=== PATIENT | male | born 1935 | race African-American/Black ===

== ENCOUNTER 2016-10-16 19:04 | Inpatient (IN) | payer OTHER, BC ==
[2016-10-16 19:47] LABS: BASOPHIL 0.7 % (0-2.0); EOSINOPHIL 0.6 % (0-4.5); MCH 27.5 pg (25.7-33.7); MCHC 32.5 g/dl (32.0-35.9); MEAN CELL VOLUME 84.6 fl (80-96); NEUTROPHILS 70.2 % (42.8-82.8); PLATELET COUNT 322 K/MM3 (134-434); RDW 14.1 % (11.9-15.9); WHITE BLOOD COUNT 9.8 K/mm3 (4.0-10.0)
--- NOTE | 2016-10-16 19:52 | PDOC ---
History of Present Illness - General Chief Complaint: Pain Stated Complaint: ABD PAIN Time Seen by Provider: 10/16/16 19:43 History Source: Patient Exam Limitations: No Limitations - History of Present Illness Travel History: No Initial Comments: 10/17/16 02:00 81-year-old male with no history of abdominal surgery presents to the emergency department complaining of periumbilical 6/10 sharp nonradiating intermittent discomfort with nausea no vomiting, fever, chills, chest pain, shortness of breath, flank pains, urinary symptoms. There are no alleviating or exacerbating factors. Last bowel movement 4 days ago. Timing/Duration: reports: intermittent Quality: reports: moderate Abdominal Pain Onset Location: reports: periumbilical Pain Radiation: reports: no radiation Activities at Onset: reports: none Aggravating Factors: improves with: None Alleviating Factors: improves with: None Past History - Past Medical History Allergies/Adverse Reactions: Allergies Allergy/AdvReac Type Severity Reaction Status Date / Time No Known Allergies Allergy Verified 03/02/16 12:36 Home Medications: Ambulatory Orders Atorvastatin Ca [Lipitor] 40 mg PO HS #0 tablet 03/03/13 Amlodipine Besylate [Norvasc -] 5 mg PO DAILY #0 tablet 08/01/13 Clopidogrel Bisulfate [Plavix -] 75 mg PO DAILY #0 tablet 08/01/13 Labetalol HCl [Normodyne -] 200 mg PO BID #0 tablet NS 08/01/13 Furosemide [Lasix -] 20 mg PO DAILY 08/09/15 Aspirin [ASA -] 81 mg PO DAILY 10/16/16 Tiotropium [place] [Spiriva] 1 inh PO BID 10/16/16 Anemia: No Cancer: No Cardiac Disorders: No CVA: Yes (Mild R hemiparesis) COPD: Yes CHF: No Dementia: No Diabetes: No GI Disorders: No Disorders: No HTN: Yes Hypercholesterolemia: Yes Liver Disease: No Suicide Attempt (Hx): No Seizures: No Thyroid Disease: No - Surgical History Abdominal Surgery: No Appendectomy: No Cardiac Surgery: No Cholecystectomy: No Lung Surgery: Yes (chest tube for pneumothorax) Neurologic Surgery: No - Psycho/Social/Smoking Cessation Hx Anxiety: No Suicidal Ideation: No Smoking Status: Yes Smoking History: Former smoker Have you smoked in the past 12 months: No Number of Cigarettes Smoked Daily: 10 If you are a former smoker, when did you quit?: U2MONGTM AGO Information on smoking cessation initiated: No 'Breaking Loose' booklet given: 03/03/16 Hx Alcohol Use: No Drug/Substance Use Hx: No Substance Use Type: None Hx Substance Use Treatment: No Review of Systems - Review of Systems Able to Perform ROS?: Yes Comments:: 10/17/16 01:59 CONSTITUTIONAL: Absent: fever, chills, diaphoresis, generalized weakness, malaise, loss of appetite HEENT: Absent: rhinorrhea, nasal congestion, throat pain, throat swelling, difficulty swallowing, mouth swelling, ear pain, eye pain, visual Changes CARDIOVASCULAR: Absent: chest pain, loss of consciousness, palpitations, irregular heart rate, peripheral edema RESPIRATORY: Absent: cough, shortness of breath, dyspnea with exertion, orthopnea, wheezing, stridor, hemoptysis GASTROINTESTINAL: Periumbilical pain Absent: abdominal distension, nausea, vomiting, diarrhea, constipation, melena, hematochezia GENITOURINARY: Absent: dysuria, frequency, urgency, hesitancy, hematuria, flank pain, genital pain MUSCULOSKELETAL: Absent: myalgia, arthralgia, joint swelling SKIN: Absent: rash, itching, pallor HEMATOLOGIC/IMMUNOLOGIC: Absent: easy bleeding, easy bruising, lymphadenopathy, frequent infections ENDOCRINE: Absent: unexplained weight gain, unexplained weight loss, heat intolerance, cold intolerance NEUROLOGIC: Absent: headache, focal weakness or paresthesias, dizziness, unsteady gait, seizure, mental status changes, bladder or bowel incontinence PSYCHIATRIC: Absent: anxiety, depression, suicidal or homicidal ideation, hallucinations. Is the patient limited [place]an proficient: No *Physical Exam - Vital Signs Last Vital Signs Temp Pulse Resp BP Pulse Ox 97.9 F 84 21 148/74 94 L 10/16/16 19:25 10/16/16 19:25 10/16/16 19:25 10/16/16 19:25 10/16/16 19:25 - Physical Exam Comments: 10/17/16 01:59 GENERAL: Well developed, well nourished. Awake and alert. No acute distress. HEENT: Normocephalic, atraumatic. PERRLA, EOMI. No conjunctival pallor. Sclera are non- icteric. Moist mucous membranes. Oropharynx is clear. NECK: Supple. Full ROM. No JVD. Carotid pulses 2+ and symmetric, without bruits. No thyromegaly. No lymphadenopathy. CARDIOVASCULAR: Regular rate and rhythm. No murmurs, rubs, or gallops. Distal pulses are 2+ and symmetric. PULMONARY: No evidence of respiratory distress. Lungs clear to auscultation bilaterally. No wheezing, rales or rhonchi. ABDOMINAL: +periumbilical tenderness on palp Soft.Non-distended. No rebound or guarding. No organomegaly. Normoactive bowel sounds. MUSCULOSKELETAL Normal range of motion at all joints. No bony deformities or tenderness. No CVA tenderness. EXTREMITIES: No cyanosis. No clubbing. No edema. No calf tenderness. SKIN: Warm and dry. Normal capillary refill. No rashes. No jaundice. NEUROLOGICAL: Alert, awake, appropriate. Cranial nerves 2-12 intact. No deficits to light touch and temperature in face, upper extremities and lower extremities. No motor deficits in the in face, upper extremities and lower extremities. Normoreflexic in the upper and lower extremities. Normal speech. Toes are down- going bilaterally. Gait is normal without ataxia. PSYCHIATRIC: Cooperative. Good eye contact. Appropriate mood and affect. ED Treatment Course - LABORATORY CBC & Chemistry Diagram: 10/16/16 19:35 10/16/16 19:35 - ADDITIONAL ORDERS Additional order review: 10/16/16 19:35 RBC 5.27 MCV 84.6 MCHC 32.5 RDW 14.1 MPV 7.0 L Neutrophils % 70.2 D Lymphocytes % 13.5 D Monocytes % 15.0 H Eosinophils % 0.6 D Basophils % 0.7 *DC/Admit/Observation/Transfer Diagnosis at time of Disposition: SBO (small bowel obstruction) - Discharge Dispostion Condition at time of disposition: Guarded Admit: Yes - Referrals
[2016-10-16 20:14] LABS: ALBUMIN 3.6 g/dl (3.4-5.0); AMYLASE 113 U/L (25-115); ANION GAP 10 (8-16); CALCIUM 9.9 mg/dL (8.5-10.1); CO2 25 mmol/L (21-32); COCKROFT - GAULT 54.51; CREATININE 0.9 mg/dL (0.7-1.3); GLUCOSE,RANDOM 123 mg/dL (74-106); SGOT/AST 21 U/L (15-37); SGPT/ALT 23 U/L (12-78)
[2016-10-16 20:15] LABS: ALK PHOS 105 U/L (45-117); BILIRUBIN,TOTAL 2.3 mg/dL (0.2-1.0); TOT PROT 6.7 g/dl (6.4-8.2)
[2016-10-16 20:48] LABS: URINE APPEARANCE SLCLOUDY; URINE BILIRUBIN NEGATIVE (NEGATIVE); URINE BLOOD NEGATIVE (NEGATIVE); URINE COLOR YELLOW; URINE GLUCOSE (UA) NEGATIVE (NEGATIVE); URINE KETONE NEGATIVE (NEGATIVE); URINE LEUK ESTERASE NEGATIVE (NEGATIVE); URINE NITRITE NEGATIVE (NEGATIVE); URINE UROBILINOGEN 2.0 E.U/dl E.U./dl (0.2-1.0)
[2016-10-16] MEDS ORDERED: MAG HYDROX/AL HYDROX/SIMETH 355 ML ORAL.SUSP PO ONE (20:54)
[2016-10-16] MEDS ORDERED: FAMOTIDINE 20 MG/50 ML IVPB 50 ML IVPB ONE ×2 (20:54→21:24)
[2016-10-16 21:03] LABS: URINE PROTEIN 1+ (NEGATIVE)
[2016-10-16 21:12] LABS: URINE MUCUS FEW; URINE RBC 49 /hpf (0-3); URINE WBC 3 /hpf (3-5)
[2016-10-16] MEDS ORDERED: MAG HYDROX/AL HYDROX/SIMETH 30 ML UNIT-DOSE CUP ONE (21:24)
[2016-10-17] MEDS ORDERED: morphine CARPU-JECT 4 MG/1 ML DISP.SYRIN IVPUSH PRN (00:20)
[2016-10-17] MEDS: SODIUM CHLORIDE 1,000 ML IV SCH ×2 (00:36→10:52)
[2016-10-17 04:44] VITALS: BMI 19.3
--- NOTE | 2016-10-17 06:26 | HP ---
Admitting History and Physical - Primary Care Physician PCP: Gini Delcid S - Admission Chief Complaint: abdominal pain, no BM x 4 days History of Present Illness: 81M admitted through [facility] for eval. of vomiting and belching up of food. He states that this has been occurring for 4 days and that his last bowel movement was 4 days ago. He had some abdominal pain but no rectal bleeding. He was seen by Dr. Hollins 02/22 when he had an admission for syncope. CT scan revealed dilated loops of small bowel raising ? of SBO. He had 4 loose BM's x 4 from last night. he denies prior abdominal surgeries NGT placed in ER; feels much better now History Source: Patient, Medical Record Limitations to Obtaining History: No Limitations - Past Medical History VEGETABLE SCULLION: Yes: CVA, TIA Cardiovascular: Yes: CHF, HTN, Hyperlipdemia Pulmonary: Yes: COPD Gastrointestinal: Yes: Constipation Musculoskeletal: Yes: Hemiparesis - Smoking History Smoking history: Former smoker Have you smoked in the past 12 months: No Aproximately how many cigarettes per day: 10 If you are a former smoker, when did you quit?: 2016 - Alcohol/Substance Use Hx Alcohol Use: Yes History of Substance Use: reports: None - Social History Usual Living Arrangement: Yes: With Spouse ADL: Independent Occupation: retired from [employer] History of Recent Travel: No Home Medications - Allergies Allergies/Adverse Reactions: Allergies Allergy/AdvReac Type Severity Reaction Status Date / Time No Known Allergies Allergy Verified 03/02/16 12:36 - Home Medications Home Medications: Ambulatory Orders Atorvastatin Ca [Lipitor] 40 mg PO HS #0 tablet 03/03/13 Amlodipine Besylate [Norvasc -] 5 mg PO DAILY #0 tablet 08/01/13 Clopidogrel Bisulfate [Plavix -] 75 mg PO DAILY #0 tablet 08/01/13 Labetalol HCl [Normodyne -] 200 mg PO BID #0 tablet NS 08/01/13 Furosemide [Lasix -] 20 mg PO DAILY 08/09/15 Aspirin [ASA -] 81 mg PO DAILY 10/16/16 Tiotropium [place] [Spiriva] 1 inh PO BID 10/16/16 Family Disease History - Family Disease History Family Disease History: Heart Disease: Brother (congestive heart failure), Other : Father (lived to 99), Mother (lived to her 70's) Review of Systems - Review of Systems Constitutional: denies: Chills, Fever, Lethargy Eyes: denies: Blurred Vision, Double Vision HENT: denies: Difficult Swallowing, Ear Pain Neck: denies: Decreased ROM, Pain on Movement, Stiffness, Tenderness Cardiovascular: denies: Chest Pain, Shortness of Breath Respiratory: denies: Cough, SOB Gastrointestinal: reports: Abdominal Pain, Bloating, Constipation, Vomiting Genitourinary: denies: Dysuria, Flank Pain Musculoskeletal: denies: Back Pain, Joint Pain Neurological: reports: Unsteady Gait (h/o CVA). denies: Change in LOC, Change in Speech, Dizziness Hematology/Lymphatic: denies: Easily Bruised, Excessive Bleeding Psychiatric: denies: Altered Sleep Pattern, Anxiety, Depression, Suicidal Physical Examination Vital Signs: Vital Signs Temperature 98.0 F 10/17/16 04:00 Pulse Rate 100 H 10/17/16 04:00 Respiratory Rate 18 10/17/16 04:00 Blood Pressure 160/98 10/17/16 04:00 O2 Sat by Pulse Oximetry (%) 93 L 10/17/16 04:00 Constitutional: Yes: No Distress, Calm Eyes: Yes: Conjunctiva Clear HENT: Yes: Atraumatic Neck: Yes: Supple Cardiovascular: Yes: Regular Rate and Rhythm Respiratory: Yes: CTA Bilaterally Gastrointestinal: Yes: Soft, Other (NGT in). No: Distention, Tenderness Renal/: No: CVA Tenderness - Left, CVA Tenderness - Right, Hematuria Musculoskeletal: No: Joint Stiffness, Joint Swelling Extremities: No: Cold, Cool, Cyanosis Edema: No Peripheral Pulses WNL: Yes Integumentary: No: Rash, Venous Stasis Changes Neurological: Yes: WNL, Alert, Oriented ...Motor Strength: WNL Psychiatric: Yes: WNL, Alert, Oriented. No: Agitated, Suicidal Ideation Imaging - Results Chest X-ray: Report Reviewed Cat Scan: Report Reviewed Other: Report Reviewed Assessment/Plan 81M admitted through [facility] for eval. of vomiting and belching up of food. He states that this has been occurring for 4 days and that his last bowel movement was 4 days ago. He had some abdominal pain but no rectal bleeding. He was seen by Dr. Hollins 02/22 when he had an admission for syncope. CT scan revealed dilated loops of small bowel raising ? of SBO. He had 4 loose BM's x 4 from last night. he denies prior abdominal surgeries NGT placed in ER check KUB today, if resolving ileus would DC NGT and start clear fluids diet GI and surgery called cardio eval for possible preop (does not seem he will need surgery at this point )DVT falls decubs PFXd/w pt and staff
[2016-10-17] MEDS ORDERED: INSULIN (NOVOLOG) ASPART 100 UNITS/ML 10ML VIAL ONE (06:35)
[2016-10-17] MEDS ORDERED: PT OWN MED DRAWER 7, Y5N ONE ×2 (06:36→14:06)
[2016-10-17] MEDS: LABETALOL HCL 200 MG TABLET (FP) PO SCH ×2 (06:36→21:20)
[2016-10-17 07:00] LABS: MCHC 33.1 g/dl (32.0-35.9); MEAN CELL VOLUME 84.4 fl (80-96); MEAN PLT VOLUME 7.1 fl (7.5-11.1); PLATELET COUNT 308 K/MM3 (134-434); RDW 14.1 % (11.9-15.9); WHITE BLOOD COUNT 8.4 K/mm3 (4.0-10.0)
--- NOTE | 2016-10-17 07:12 | CON.CARD ---
Consult Consult Specialty:: Cardiology for Dr. Butt Referred by:: Dr. Delcid Reason for Consultation:: SBO, assistance with medications - History of Present Illness Chief Complaint: abdominal pain and constipation History of Present Illness: 81 year old man with a history of HTN, HLD, COPD, CVA, AAA admitted with abdominal discomfort and constipation concerning for SBO. Pt seen and examined today in nad. He states that he had multiple small BM's yesterday and overnight. denies any current abd pain. denies chest pain, sob, palpitations. no pnd, orthopnea, or LE edema. NG tube in place. 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 Cardio/Vascular: Yes: Aneurysm, CHF, HTN, Hyperlipdemia Pulmonary: Yes: COPD Gastrointestinal: Yes: Constipation Musculoskeletal: Yes: Hemiparesis - Alcohol/Substance Use Hx Alcohol Use: Yes History of Substance Use: reports: None - Smoking History Smoking history: Former smoker Have you smoked in the past 12 months: No Aproximately how many cigarettes per day: 10 If you are a former smoker, when did you quit?: 2016 - Social History Usual Living Arrangement: With Spouse ADL: Independent Occupation: retired from [employer] History of Recent Travel: No Home Medications - Allergies Allergies/Adverse Reactions: Allergies Allergy/AdvReac Type Severity Reaction Status Date / Time No Known Allergies Allergy Verified 03/02/16 12:36 - Home Medications Home Medications: Ambulatory Orders Atorvastatin Ca [Lipitor] 40 mg PO HS #0 tablet 03/03/13 Amlodipine Besylate [Norvasc -] 5 mg PO DAILY #0 tablet 08/01/13 Clopidogrel Bisulfate [Plavix -] 75 mg PO DAILY #0 tablet 08/01/13 Labetalol HCl [Normodyne -] 200 mg PO BID #0 tablet NS 08/01/13 Furosemide [Lasix -] 20 mg PO DAILY 08/09/15 Aspirin [ASA -] 81 mg PO DAILY 10/16/16 Tiotropium [place] [Spiriva] 1 inh PO BID 10/16/16 Family Disease History - Family Disease History Family Disease History: Heart Disease: Brother (congestive heart failure), Other : Father (lived to 99), Mother (lived to her 70's) Review of Systems - Review of Systems Constitutional: reports: Weakness. denies: No Symptoms, Chills, Diaphoresis, Fever, Lethargy, Loss of Appetite, Malaise, Night Sweats, Unintentional Wgt. Loss, Other Eyes: denies: No Symptoms, Blind Spots, Blurred Vision, Double Vision, Eye Pain , Floaters, Photophobia, Recent Change in Vision, Other HENT: denies: No Symptoms, Difficult Swallowing, Ear Discharge, Ear Pain, Epistaxis, Gingival Bleeding, Hearing Loss, Mouth Swelling, Nasal Congestion, Ocular Prosthesis, Throat Pain, Toothache, Ringing in Ears, Other Neck: denies: No Symptoms, Decreased ROM, Lumps, Pain on Movement, Stiffness, Swollen Glands, Tenderness, Other Cardiovascular: denies: No Symptoms, Chest Pain, Edema, Palpitations, Shortness of Breath, Other Respiratory: reports: Cough. denies: No Symptoms, Exercise Intolerance, Hemoptysis, Orthopnea, PND, Snoring, SOB, SOB on Exertion, Wheezing, Other Gastrointestinal: reports: Abdominal Pain, Constipation. denies: No Symptoms, Bloating, Diarrhea, Dysphagia, Indigestion, Melena, Nausea, Rectal Bleeding, Vomiting, Vomiting Blood, Other Genitourinary: denies: No Symptoms, Burning, Discharge, Dysuria, Flank Pain, Frequency, Hematuria, Incontinence, Lesions, Menses, Pain, Testicular Mass, Testicular Pain, Testicular Swelling, Urgency, Vaginal Bleeding, Other Breasts: denies: No Symptoms Reported, See HPI, Breast Implants, Discharge from Nipple, Lumps, Pain, Skin Changes, Other Musculoskeletal: denies: No Symptoms, Back Pain, Crepitus, Decreased ROM, Extremity Pain, Joint Pain, Joint Swelling, Muscle Pain, Muscle Cramps, Muscle Weakness, Other Integumentary: denies: No Symptoms, Blister, Bruising, Change in Color, Eczema, Erythema, Incision, Lesions, Lump, Pallor, Pruritis, Rash, Wound, Other Neurological: denies: No Symptoms, Change in LOC, Change in Speech, Confusion, Dizziness, Headache, Incoordination, Numbness, Parasthesia, Pre-Existing Deficit , Seizure, Syncope, Tremors, Unsteady Gait, Weakness, Other Endocrine: denies: No Symptoms, Excessive Sweating, Flushing, Increased Hunger, Increased Thirst, Intolerance to Cold, Intolerance to Heat, Unexplained Weight Gain, Unexplained Weight Loss, Other Hematology/Lymphatic: denies: No Symptoms, Easily Bruised, Excessive Bleeding, Swollen Glands, Other Psychiatric: denies: No Symptoms, Altered Sleep Pattern, Anxiety, Depression, Hallucinations, Panic, Paranoia, Suicidal, Other - Risk Factors Known Risk Factors: Yes: Age, Hypercholesterolemia, Hypertension Vital Signs: Vital Signs Temperature 97.9 F 10/17/16 07:06 Pulse Rate 80 10/17/16 07:06 Respiratory Rate 20 10/17/16 07:06 Blood Pressure 153/88 10/17/16 07:06 O2 Sat by Pulse Oximetry (%) 93 L 10/17/16 04:00 Constitutional: Yes: No Distress, Calm, Thin Eyes: Yes: Conjunctiva Clear, EOM Intact, PERRL HENT: Yes: Normocephalic Neck: Yes: Supple, Trachea Midline Respiratory: Yes: Cough, Rhonchi. No: Rales, SOB, Wheezes Gastrointestinal: Yes: Normal Bowel Sounds, Soft. No: Distention, Tenderness Cardiovascular: Yes: Regular Rate and Rhythm. No: Tachycardia, Pulse Irregular , Gallop, Rub, Varicosities JVD: No Carotid Bruit: No PMI: Non-Displaced Heart Sounds: Yes: S1, S2. No: Split S2, S3, S4, Gallop, Rub Murmur: No: Systolic Murmur, Diastolic Murmur Musculoskeletal: Yes: WNL Extremities: Yes: WNL Edema: No Peripheral Pulses WNL: Yes Peripheral Pulses: 2+ Left Doralis Pedis, 2+ Right Dorsalis Pedis Neurological: Yes: Alert, Oriented Psychiatric: Yes: Alert, Oriented - Other Data Labs, Other Data: CBC, BMP 10/17/16 06:20 ekg-not available in chart Echo: Report Reviewed Ejection Fraction %: LVEF > or = 40 % Imaging - Results Chest X-ray: Report Reviewed, Image Reviewed EKG: Report Reviewed, Image Reviewed Other: Report Reviewed, Image Reviewed Assessment/Plan 81 year old man with a history of HTN, HLD, COPD, CVA, AAA admitted with abdominal discomfort and constipation concerning for SBO. Pt seen and examined today in nad. He states that he had multiple small BM's yesterday and overnight. SBO-NG tube in place, pt reports multiple small BMs overnight -as per PMD, GI, and Surgery -currently NPO except medications -as per pt and records, pt has no history of CAD or prior MD or prior coronary stents, on Plavix for h/o CVA (also cerebral aneursym), presumed on ASA for primary prevention, from a cardiac standpoint can hold ASA and Plavix in case of need for surgery for SBO -f/up CT a/p results in regards to status of AAA (done to evaluate SBO) HTN-mildly above goal -cont home meds Norvasc and Labetalol and adjust as needed during hospitalization -if does not tolerate po meds will need to change to IV equivalents HLD -cont Lipitor Cough/mild rhonchi on exam -COPD
[2016-10-17 07:28] LABS: ALBUMIN 3.6 g/dl (3.4-5.0); ALK PHOS 113 U/L (45-117); ANION GAP 10 (8-16); BILIRUBIN,TOTAL 2.7 mg/dL (0.2-1.0); CALCIUM 9.6 mg/dL (8.5-10.1); CO2 27 mmol/L (21-32); COCKROFT - GAULT 63.55; CREATININE 0.7 mg/dL (0.7-1.3); GLUCOSE,RANDOM 116 mg/dL (74-106); SGOT/AST 24 U/L (15-37); SGPT/ALT 25 U/L (12-78); TOT PROT 6.8 g/dl (6.4-8.2)
--- NOTE | 2016-10-17 09:21 | CON.GI ---
Consult Consult Specialty:: GI Referred by:: Dr. Delcid Reason for Consultation:: Small Bowel Obstruction - History of Present Illness Chief Complaint: I was burping and bringing up food History of Present Illness: 81M admitted through [facility] for eval. of vomiting and belching up of food. He states that this has been occurring for 4 days and that his last bowel movement was 4 days ago. He denied abdominal pain or rectal bleeding. He was seen by Dr. Hollins 02/22 when he had an admission for syncope. CT scan revealed dilated loops of small bowel raising ? of SBO. He had 4 loose BM's x 4 from last night. 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 Cardio/Vascular: Yes: Aneurysm, CHF, HTN, Hyperlipdemia Pulmonary: Yes: COPD Gastrointestinal: Yes: Constipation Musculoskeletal: Yes: Hemiparesis - Alcohol/Substance Use Hx Alcohol Use: Yes History of Substance Use: reports: None - Smoking History Smoking history: Former smoker Have you smoked in the past 12 months: No Aproximately how many cigarettes per day: 10 If you are a former smoker, when did you quit?: 2016 - Social History Usual Living Arrangement: With Spouse ADL: Independent Occupation: retired from [employer] Place of : [facility] History of Recent Travel: No Home Medications - Allergies Allergies/Adverse Reactions: Allergies Allergy/AdvReac Type Severity Reaction Status Date / Time No Known Allergies Allergy Verified 03/02/16 12:36 - Home Medications Home Medications: Ambulatory Orders Atorvastatin Ca [Lipitor] 40 mg PO HS #0 tablet 03/03/13 Amlodipine Besylate [Norvasc -] 5 mg PO DAILY #0 tablet 08/01/13 Clopidogrel Bisulfate [Plavix -] 75 mg PO DAILY #0 tablet 08/01/13 Labetalol HCl [Normodyne -] 200 mg PO BID #0 tablet NS 08/01/13 Furosemide [Lasix -] 20 mg PO DAILY 08/09/15 Aspirin [ASA -] 81 mg PO DAILY 10/16/16 Tiotropium [place] [Spiriva] 1 inh PO BID 10/16/16 Family Disease History - Family Disease History Family Disease History: Heart Disease: Brother (congestive heart failure), Other : Father (lived to 99), Mother (lived to her 70's) Other Family History: No family history of colorectal cancer or other GI malignancy Review of Systems - Review of Systems Cardiovascular: denies: Chest Pain, Shortness of Breath Respiratory: reports: Cough Gastrointestinal: denies: Abdominal Pain Physical Exam-GI Vital Signs: Vital Signs Temperature 97.9 F 10/17/16 07:06 Pulse Rate 80 10/17/16 07:06 Respiratory Rate 20 10/17/16 07:06 Blood Pressure 153/88 10/17/16 07:06 O2 Sat by Pulse Oximetry (%) 93 L 10/17/16 04:00 Constitutional: Yes: Calm Eyes: No: Sclera Icterus Cardiovascular: Yes: Regular Rate and Rhythm. No: Murmur Respiratory: Yes: CTA Bilaterally Gastrointestinal Inspection: No: Distention, Hernia, Scars ...Auscultate: Yes: Hyperactive Bowel Sounds ...Percussion: Yes: Tympanitic (Mild) Edema: No Labs: CBC, BMP 10/17/16 06:20 10/17/16 06:20 Imaging - Results Cat Scan: Image Reviewed (No official read) Problem List - Problems (1) SBO (small bowel obstruction) Assessment/Plan: Vs. ? ileus Had BM's from last night Was just seen by surgery: recommendations per surgery. He is going for AXR today Will need colonoscopy when acute issues are reolved Code(s): K56.69 - OTHER INTESTINAL OBSTRUCTION
[2016-10-17] MEDS ORDERED: HEPARIN NA (PORCINE) 5,000 UNITS/ML 1ML VIAL SQ SCH (10:00)
[2016-10-17] MEDS: ACLIDINIUM BROMIDE 400 MCG/INH AERO.POWD IH SCH ×2 (11:01→21:20)
[2016-10-17] MEDS: amLODIPine BESYLATE 5 MG TABLET (FP) PO SCH (11:03)
--- NOTE | 2016-10-17 13:14 | PN ---
Progress Note (short form) - Note Progress Note: surgery pt seen and examined this am. full consult dictated. 81m, virgin abd, no recent colonoscopy, presents with [address] shows dilated small bowel with non dilated colon. xray this am shows contrast throughout colon and pt had a bm. on exam abd is soft, mild distension, pt will not relax abd wall musculature for good exam. Laboratory Tests 10/17/16 06:20 WBC 8.4 Plan- kub confirms no complete obstruction. supect ileus vs psbo. will remove ngt as minimal output. if patient remains well would try liquids tomorrow.
[2016-10-17] MEDS: ATORVASTATIN CA 40 MG TABLET (FP) PO SCH (21:20)
[2016-10-18] MEDS: SODIUM CHLORIDE 1,000 ML IV SCH ×2 (01:21→14:46)
--- NOTE | 2016-10-18 08:00 | PN ---
Progress Note (short form) - Note Progress Note: surgery pt doing well. clears started by medial team and tolerating. no need for surgical intervention. will need colonoscopy at some point.
--- NOTE | 2016-10-18 08:31 | PN ---
Progress Note, Physician History of Present Illness: seen and examined today in nad. feeling better. NG tube out, having BM's, passing gas. no overnight events. no new complaints. - Current Medication List Current Medications: Active Medications Aclidinium [place] (Tudorza -) 1 puff IH BID [facility] Last Admin: 10/17/16 21:20 Dose: 1 puff Amlodipine Besylate (Norvasc -) 5 mg PO DAILY [facility] Last Admin: 10/17/16 11:03 Dose: 5 mg Aspirin (Asa -) 81 mg PO DAILY [facility] Atorvastatin Calcium (Lipitor -) 40 mg PO HS [facility] Last Admin: 10/17/16 21:20 Dose: 40 mg Clopidogrel Bisulfate (Plavix -) 75 mg PO DAILY [facility] Sodium Chloride (Normal Saline -) 1,000 mls @ 75 mls/hr IV ASDIR [facility] Last Admin: 10/18/16 01:21 Dose: 75 mls/hr Labetalol HCl (Normodyne -) 200 mg PO BID [facility] Last Admin: 10/17/16 21:20 Dose: 200 mg Morphine Sulfate (Morphine Injection -) 1 mg IVPUSH Q4H PRN PRN Reason: PAIN - Objective Vital Signs: Vital Signs Temperature 98.6 F 10/18/16 07:29 Pulse Rate 99 H 10/18/16 07:29 Respiratory Rate 22 10/18/16 07:29 Blood Pressure 137/80 10/18/16 07:29 O2 Sat by Pulse Oximetry (%) 95 10/17/16 09:00 Constitutional: Yes: No Distress, Calm, Thin Eyes: Yes: Conjunctiva Clear, EOM Intact, PERRL HENT: Yes: Atraumatic, Normocephalic Neck: Yes: Supple, Trachea Midline Cardiovascular: Yes: Regular Rate and Rhythm, S1, S2. No: Bradycardia, Tachycardia, Pulse Irregular, Bruit, JVD, Gallop, Murmur, Rub, S3, S4, Varicosities Respiratory: Yes: Regular, Rhonchi. No: CTA Bilaterally, Rales, Wheezes Gastrointestinal: Yes: Normal Bowel Sounds, Soft. No: Distention, Tenderness Musculoskeletal: Yes: WNL Extremities: Yes: WNL Edema: No Peripheral Pulses WNL: Yes Peripheral Pulses: Left Doralis Pedis: 2+, Right Dorsalis Pedis: 2+ Neurological: Yes: Alert, Oriented Psychiatric: Yes: Alert, Oriented Labs: CBC, BMP 10/17/16 06:20 10/17/16 06:20 - ....Imaging Chest X-ray: Report Reviewed, Image Reviewed EKG: Report Reviewed, Image Reviewed Other: Report Reviewed, Image Reviewed Assessment/Plan 81 year old man with a history of HTN, HLD, COPD, CVA, AAA admitted with abdominal discomfort and constipation concerning for SBO. Pt seen and examined today in nad. He states that he had multiple small BM's yesterday and overnight. SBO-NG tube removed, pt reports multiple BMs -as per PMD, GI, and Surgery -tolerating po medications -as per pt and records, pt has no history of CAD or prior WI or prior coronary stents, on Plavix for h/o CVA (also cerebral aneursym), presumed on ASA for primary prevention -ASA and Plavix were resumed as pt does not seem to require surgery AAA- -not described on report of CT a/p, test was not done for this purpose -can discuss with radiology if any change noted HTN-adequately controlled overall -cont home meds Norvasc and Labetalol HLD -cont Lipitor Cough/mild rhonchi on exam -COPD
[2016-10-18] MEDS: LABETALOL HCL 200 MG TABLET (FP) PO SCH ×2 (09:51→21:56)
[2016-10-18] MEDS: amLODIPine BESYLATE 5 MG TABLET (FP) PO SCH (09:51)
[2016-10-18] MEDS: ACLIDINIUM BROMIDE 400 MCG/INH AERO.POWD IH SCH ×2 (09:52→21:57)
[2016-10-18] MEDS ORDERED: CLOPIDOGREL BISULFATE 75 MG TABLET (FP) PO SCH (10:00)
[2016-10-18] MEDS ORDERED: ASPIRIN 81 MG CHEWABLE TABLETS PO SCH (10:00)
--- NOTE | 2016-10-18 10:57 | PN ---
Progress Note, Physician Chief Complaint: oob to chair feels better no abdominal pain, no vomiting on clear fluids; d/w GI dr Holliday advance diet; also d/ pt and his and GI dr: pt had stomach thickening on abdomen CT 07/24 needs EGD, and is due for colonoscopy; to be done per GI - Current Medication List Current Medications: Active Medications Aclidinium [place] (Tudorza -) 1 puff IH BID [facility] Last Admin: 10/18/16 09:52 Dose: 1 puff Amlodipine Besylate (Norvasc -) 5 mg PO DAILY [facility] Last Admin: 10/18/16 09:51 Dose: 5 mg Aspirin (Asa -) 81 mg PO DAILY [facility] Last Admin: 10/18/16 09:51 Dose: 81 mg Atorvastatin Calcium (Lipitor -) 40 mg PO HS [facility] Last Admin: 10/17/16 21:20 Dose: 40 mg Clopidogrel Bisulfate (Plavix -) 75 mg PO DAILY [facility] Last Admin: 10/18/16 09:51 Dose: 75 mg Sodium Chloride (Normal Saline -) 1,000 mls @ 75 mls/hr IV ASDIR [facility] Last Admin: 10/18/16 01:21 Dose: 75 mls/hr Labetalol HCl (Normodyne -) 200 mg PO BID [facility] Last Admin: 10/18/16 09:51 Dose: 200 mg Morphine Sulfate (Morphine Injection -) 1 mg IVPUSH Q4H PRN PRN Reason: PAIN - Objective Vital Signs: Vital Signs Temperature 98.6 F 10/18/16 07:29 Pulse Rate 99 H 10/18/16 07:29 Respiratory Rate 22 10/18/16 07:29 Blood Pressure 137/80 10/18/16 07:29 O2 Sat by Pulse Oximetry (%) 95 10/17/16 09:00 Constitutional: Yes: No Distress, Calm Eyes: Yes: Conjunctiva Clear HENT: Yes: Atraumatic Neck: Yes: Supple Cardiovascular: Yes: Regular Rate and Rhythm Respiratory: Yes: CTA Bilaterally Gastrointestinal: Yes: Soft. No: Distention, Tenderness Genitourinary: No: CVA Tenderness - Left, CVA Tenderness - Right Musculoskeletal: No: Joint Stiffness, Joint Swelling Extremities: No: Cold, Cool Edema: No Peripheral Pulses WNL: Yes Integumentary: No: Rash, Venous Stasis Changes Neurological: Yes: WNL, Alert, Oriented ...Motor Strength: WNL Psychiatric: Yes: WNL, Alert, Oriented. No: Agitated, Suicidal Ideation Labs: CBC, BMP 10/17/16 06:20 10/17/16 06:20 - ....Imaging Other: Report Reviewed Assessment/Plan 81M admitted through [facility] for eval. of vomiting and belching up of food. He states that this has been occurring for 4 days and that his last bowel movement was 4 days ago. He had some abdominal pain but no rectal bleeding. He was seen by Dr. Hollins 02/22 when he had an admission for syncope. CT scan ileus/ SBO. improved; NGT DCd; advance diet as tolerated GI and surgery f/u EGD & colonoscopy per GI d/w pt and , d/w GI dr d/w staff
--- NOTE | 2016-10-18 11:57 | PN ---
GI Progress Note Subjective: No acute events Having BM's No abdominal pain States being hungry AXR not read as of yet but there appear to be contrast throughout a non- distended colon. the small bowel appears non-distended as well - Objective Vital Signs: Vital Signs Temperature 98.2 F 10/18/16 10:00 Pulse Rate 65 10/18/16 10:00 Respiratory Rate 22 10/18/16 10:00 Blood Pressure 154/90 10/18/16 10:00 O2 Sat by Pulse Oximetry (%) 95 10/17/16 09:00 Constitutional: Calm Eyes: No: Sclera Icterus Cardiovascular: Yes: Regular Rate and Rhythm. No: Murmur Respiratory: Yes: CTA Bilaterally Gastrointestinal Inspection: No: Distention ...Auscultate: Yes: Normoactive Bowel Sounds ...Palpate: No: Hepatomegaly, Splenomegaly, Tenderness Edema: No Neurological: Yes: Alert, Oriented Labs: CBC, BMP 10/17/16 06:20 10/17/16 06:20 Problem List - Problems (1) SBO (small bowel obstruction) Assessment/Plan: Vs. ileus / resolved AGE Clinically much improved Agree with advancement to a full liquid diet then low residue if tolerating There was non specific gastric wall thickening noted on previous CT scan. I explained this to Mr. Haddad and explained that to reevaluate this findings and for colorectal cancer screening, he should follow-up in office for follow-up and to arrange these studies as he was advised to do on previous admission. he states that he remembered being told to do so and would do so. If he is not tolerating PO then inpatient GI work-up would be considered MiraLAX 17g daily for chronic constipation Code(s): K56.69 - OTHER INTESTINAL OBSTRUCTION
[2016-10-18] MEDS ORDERED: ONDANSETRON 4 MG/2 ML VIAL IVPB PRN (18:34)
[2016-10-18] MEDS: morphine CARPU-JECT 2 MG/1 ML DISP.SYRIN IVPUSH PRN (18:41)
--- NOTE | 2016-10-18 19:07 | PN ---
Progress Note (short form) - Note Progress Note: dr. bonilla contacted me. nurse called her to report mr. silver vomited again. i ordered fua, cbc, bmp. dr. bonilla made him npo. asa and plavix held by dr. bonilla. Problem List - Problems (1) SBO (small bowel obstruction) Code(s): K56.69 - OTHER INTESTINAL OBSTRUCTION
[2016-10-18] MEDS ORDERED: PIPERACILLIN/TAZOB 3.375 GM 50 ML IVPB SCH (21:45)
[2016-10-18 21:50] LABS: BASOPHIL 0.2 % (0-2.0); EOSINOPHIL 0.4 % (0-4.5); MCHC 32.2 g/dl (32.0-35.9); MEAN CELL VOLUME 83.9 fl (80-96); MEAN PLT VOLUME 6.8 fl (7.5-11.1); NEUTROPHILS 80.8 % (42.8-82.8); PLATELET COUNT 270 K/MM3 (134-434); RDW 13.8 % (11.9-15.9); WHITE BLOOD COUNT 7.2 K/mm3 (4.0-10.0)
[2016-10-18] MEDS: PIPERACILLIN/TAZOB 3.375 GM 50 ML IVPB SCH (21:56)
[2016-10-18] MEDS: ATORVASTATIN CA 40 MG TABLET (FP) PO SCH (21:56)
[2016-10-18 22:09] LABS: CALCIUM 8.7 mg/dL (8.5-10.1); COCKROFT - GAULT 74.15; CREATININE 0.6 mg/dL (0.7-1.3)
--- NOTE | 2016-10-18 22:26 | PN ---
GI Progress Note Subjective: Received message by [facility] radiologist 9:16 laurie re: critical finding on repeat CT scan that was performed this afternoon. She explained there was pneummatosis in a segment of small bowel in an area of transition as well as air in left lobe of liver in portal system. He had complaints of abdominal pain later this afternoon as well as vomiting prompting repeat imaging and lab work. I reevaluated Mr. Catie sullivan he states that he feels "so-so". - Objective Vital Signs: Vital Signs Temperature 97.7 F 10/18/16 18:00 Pulse Rate 64 10/18/16 18:00 Respiratory Rate 20 10/18/16 18:00 Blood Pressure 157/73 10/18/16 18:00 O2 Sat by Pulse Oximetry (%) 95 10/17/16 09:00 Constitutional: Calm Eyes: No: Sclera Icterus Cardiovascular: Yes: Regular Rate and Rhythm Respiratory: Yes: CTA Bilaterally ...Auscultate: Yes: Normoactive Bowel Sounds ...Palpate: Yes: Tenderness (with voluntary guarding upon palpation. This is a change from previous exam) ...Percussion: Yes: Tympanitic (mild tympany) Edema: No Neurological: Yes: Alert (awake, somewhat forgetful) Labs: CBC, BMP 10/18/16 21:15 10/18/16 21:15 Problem List - Problems (1) SBO (small bowel obstruction) Assessment/Plan: Patient dramatically improved this morning however now with transition point noted by radiologist with small bowel pneumatosis in that area (? mid ileum) and air in portal system. Also with voluntary guarding noted on exam this evening. Advised the following: Replace NGT NPO IV hydration Started IV Zosyn with ID consult in AM I had discussed the radiology findings with Dr. Carranza and Dr. Gini Delcid after I got off the phone with the radiologist this evening Transfer to ICU CBC/CMP/Lactic acid level ordered for AM Discussed things with his this evening as well Code(s): K56.69 - OTHER INTESTINAL OBSTRUCTION
--- NOTE | 2016-10-18 23:03 | PN ---
Progress Note (short form) - Note Progress Note: surgery pt was doing well today and diet was started and advanced by the medical service. Plavix was resumed as well. Pt developed abd pain and vomiting and repeat ct was arranged. this shows pneumatosis in a segment of distal small bowel and portal venous gas. Pt is AAOx1 but denies abd pain. wbc wnl, no fever, no tachycardia, normal bp. Pt is very high risk for surgery with cva, copd, cad, and now on Plavix given today. I suspect he had an embolic event to his small bowel that may recover function. Obviously he could become septic and deteriorate. I spoke to his who wishes to avoid surgery and does not want to operate on the blood thinner. She is willing to risk deterioration and development of sepsis to avoid the risk of surgery. Recommend npo, iv abx, icu monitoring. If patient remains stable would repeat ct in 2-3 days. If patient appears to worsen may be forced to proceed with a high risk surgery and a poor outcome. Plavix should be held for 8 days for elective surgery and 3 days for emergent surgery. will follow.
[2016-10-19] MEDS: SODIUM CHLORIDE 1,000 ML IV SCH ×2 (00:15→18:37)
--- NOTE | 2016-10-19 00:41 | CONSULT ---
Consult Consult Specialty:: Pulm/CCM [employer] Reason for Consultation:: Mid epigastric pain - History of Present Illness Chief Complaint: Abd pain History of Present Illness: 81yom with PMHx of HTN, CHF, CVA, TIA, COPD and HLD who presented to ED on 10/16 with c/o of abd pain,vomiting and belching up of food x 4days and constipation. In ED CT scan revealed dilated loops of small bowel raising ? of SBO. NGT placed in ED. Since the initial CT pt had BMs and had minimal NGT drainage. He was started on po fluids but vomited and c/o persistent abd pain. Repeat CT A/P s/f pneumatosis in a segment of the small bowel as well as air in the left lobe of the liver. GI surgery was considered but deferred as pt was hemodynamically stable and is a high surgical risk d/t his comorbidities and on plavix. He was transferred to ICU for monitoring with plan for OR if hemodynamically decompensates. - History Source History Provided By: Patient, Medical Record - Past Medical History [employer]: Yes: CVA, TIA Cardio/Vascular: Yes: CHF, HTN, Hyperlipdemia Pulmonary: Yes: COPD Gastrointestinal: Yes: Constipation Musculoskeletal: Yes: Hemiparesis - Alcohol/Substance Use Hx Alcohol Use: Yes History of Substance Use: reports: None - Smoking History Smoking history: Former smoker Have you smoked in the past 12 months: No Aproximately how many cigarettes per day: 10 If you are a former smoker, when did you quit?: 2015 - Social History Usual Living Arrangement: With Spouse ADL: Independent Occupation: retired from [employer] History of Recent Travel: No Home Medications - Allergies Allergies/Adverse Reactions: Allergies Allergy/AdvReac Type Severity Reaction Status Date / Time No Known Allergies Allergy Verified 03/02/16 12:36 - Home Medications Home Medications: Ambulatory Orders Atorvastatin Ca [Lipitor] 40 mg PO HS #0 tablet 03/03/13 Amlodipine Besylate [Norvasc -] 5 mg PO DAILY #0 tablet 08/01/13 Clopidogrel Bisulfate [Plavix -] 75 mg PO DAILY #0 tablet 08/01/13 Labetalol HCl [Normodyne -] 200 mg PO BID #0 tablet NS 08/01/13 Furosemide [Lasix -] 20 mg PO DAILY 08/09/15 Aspirin [ASA -] 81 mg PO DAILY 10/16/16 Tiotropium [place] [Spiriva] 1 inh PO BID 10/16/16 Family Disease History - Family Disease History Family Disease History: Heart Disease: Brother (congestive heart failure), Other : Father (lived to 99), Mother (lived to her 70's) Other Family History: No family history of colorectal cancer or other GI malignancy Review of Systems - Review of Systems Constitutional: reports: No Symptoms Gastrointestinal: reports: Abdominal Pain Genitourinary: reports: Incontinence Neurological: reports: No Symptoms Pain Intensity: 8 Physical Exam Vital Signs: Vital Signs Temperature 97.8 F 10/18/16 23:15 Pulse Rate 60 10/18/16 23:15 Respiratory Rate 19 10/18/16 23:15 Blood Pressure 148/75 10/18/16 23:15 O2 Sat by Pulse Oximetry (%) 92 L 10/18/16 23:15 Constitutional: Yes: No Distress, Thin Eyes: Yes: PERRL Neck: Yes: Supple Cardiovascular: Yes: Regular Rate and Rhythm Respiratory: Yes: CTA Bilaterally Gastrointestinal: Yes: Soft, Tenderness, Epigastrium, Other (+ bowel sounds) Renal/: Yes: WNL Extremities: Yes: Other (WWP) Edema: No Peripheral Pulses WNL: Yes Neurological: Yes: Alert, Oriented Psychiatric: Yes: Alert, Oriented Labs: CBC, BMP 10/18/16 21:15 10/18/16 21:15 CBC,CMP WBC 7.2 K/mm3 (4.0-10.0) 10/18/16 21:15 RBC 5.14 M/mm3 (4.00-5.60) 10/18/16 21:15 Hgb 13.9 GM/dL (11.7-16.9) 10/18/16 21:15 Hct 43.1 % (35.4-49) 10/18/16 21:15 MCV 83.9 fl (80-96) 10/18/16 21:15 MCHC 32.2 g/dl (32.0-35.9) 10/18/16 21:15 RDW 13.8 % (11.9-15.9) 10/18/16 21:15 Plt Count 270 K/MM3 (134-434) 10/18/16 21:15 MPV 6.8 fl (7.5-11.1) L 10/18/16 21:15 Neutrophils % 80.8 % (42.8-82.8) 10/18/16 21:15 Lymphocytes % 9.1 % (8-40) D 10/18/16 21:15 Monocytes % 9.5 % (3.8-10.2) 10/18/16 21:15 Eosinophils % 0.4 % (0-4.5) 10/18/16 21:15 Basophils % 0.2 % (0-2.0) 10/18/16 21:15 Sodium 137 mmol/L (136-145) 10/18/16 21:15 Potassium 3.7 mmol/L (3.5-5.1) 10/18/16 21:15 Chloride 102 mmol/L (98-107) 10/18/16 21:15 Carbon Dioxide 24 mmol/L (21-32) 10/18/16 21:15 Anion Gap 11 (8-16) 10/18/16 21:15 BUN 8 mg/dL (7-18) 10/18/16 21:15 Creatinine 0.6 mg/dL (0.7-1.3) L 10/18/16 21:15 Creat Clearance w eGFR > 60 (>60) 10/17/16 06:20 Random Glucose 115 mg/dL (74-106) H 10/18/16 21:15 Calcium 8.7 mg/dL (8.5-10.1) 10/18/16 21:15 Total Bilirubin 2.7 mg/dL (0.2-1.0) H 10/17/16 06:20 AST 24 U/L (15-37) 10/17/16 06:20 ALT 25 U/L (12-78) 10/17/16 06:20 Alkaline Phosphatase 113 U/L (45-117) 10/17/16 06:20 Total Protein 6.8 g/dl (6.4-8.2) 10/17/16 06:20 Albumin 3.6 g/dl (3.4-5.0) 10/17/16 06:20 Total Amylase 113 U/L (25-115) 10/16/16 19:35 Lipase 88 U/L (73-393) 10/16/16 19:35 Imaging - Results Cat Scan: Report Reviewed Problem List - Problems (1) SBO (small bowel obstruction) Code(s): K56.69 - OTHER INTESTINAL OBSTRUCTION Assessment/Plan 81yom with PMHx of HTN, CHF, CVA, TIA, COPD and HLD who presented to ED on 10/16 with c/o of abd pain,vomiting and belching up of food x 4days and constipation. Found to have pneumatosis intestinalis in segment of of small bowel with c/f for enterocolitis. OR deferred d/t pt on plavix and medical comorbidities. Plan: -GI following -NGT to L[facility] for bowel rest -NPO -IVF for hydration -HD monitoring -Hold plavix -venodynes
[2016-10-19] MEDS: PIPERACILLIN/TAZOB 3.375 GM 50 ML IVPB SCH ×3 (01:15→18:37)
[2016-10-19] MEDS: morphine CARPU-JECT 2 MG/1 ML DISP.SYRIN IVPUSH PRN (01:18)
[2016-10-19 06:14] LABS: BASOPHIL 0.4 % (0-2.0); EOSINOPHIL 1.6 % (0-4.5); MCH 27.7 pg (25.7-33.7); MCHC 33.2 g/dl (32.0-35.9); MEAN CELL VOLUME 83.7 fl (80-96); MEAN PLT VOLUME 7.2 fl (7.5-11.1); PLATELET COUNT 295 K/MM3 (134-434); RDW 14.1 % (11.9-15.9); WHITE BLOOD COUNT 5.3 K/mm3 (4.0-10.0)
[2016-10-19 07:12] LABS: ALBUMIN 3.1 g/dl (3.4-5.0); ANION GAP 10 (8-16); CALCIUM 8.4 mg/dL (8.5-10.1); CO2 27 mmol/L (21-32); COCKROFT - GAULT 68.39; CREATININE 0.7 mg/dL (0.7-1.3); GLUCOSE,RANDOM 115 mg/dL (74-106); SGOT/AST 25 U/L (15-37); SGPT/ALT 19 U/L (12-78)
[2016-10-19 07:14] LABS: ALK PHOS 88 U/L (45-117); BILIRUBIN,TOTAL 2.5 mg/dL (0.2-1.0); TOT PROT 5.8 g/dl (6.4-8.2)
--- NOTE | 2016-10-19 09:20 | PN ---
Progress Note (short form) - Note Progress Note: ID consult dictated chart reviewed patient is poor historian imp/reccd SBO pneumotosis coli of small bowel- ivf/npo/continue zosyn close surgical f/u Problem List - Problems (1) Pneumatosis intestinalis Code(s): K63.89 - OTHER SPECIFIED DISEASES OF INTESTINE (2) SBO (small bowel obstruction) Code(s): K56.69 - OTHER INTESTINAL OBSTRUCTION
[2016-10-19] MEDS: ACLIDINIUM BROMIDE 400 MCG/INH AERO.POWD IH SCH ×2 (09:22→21:41)
[2016-10-19] MEDS: amLODIPine BESYLATE 5 MG TABLET (FP) PO SCH (09:26)
[2016-10-19] MEDS: LABETALOL HCL 200 MG TABLET (FP) PO SCH (09:26)
[2016-10-19] MEDS ORDERED: POLYETHYLENE GLYCOL 3350 119 GM BTL PO SCH (10:00)
[2016-10-19] MEDS ORDERED: METOPROLOL TARTRATE 5 MG/5 ML VIAL IVPUSH PRN (11:41)
--- NOTE | 2016-10-19 11:45 | PN ---
Progress Note, Physician History of Present Illness: Pt. in ICU, was seen and examined. NGT present (on low sucction) Pt. w/o N, V, abd. pain. Pt w/o CP, SOB, Palp. - Current Medication List Current Medications: Active Medications Aclidinium [place] (Tudorza -) 1 puff IH BID [facility] Last Admin: 10/19/16 09:22 Dose: 1 puff Amlodipine Besylate (Norvasc -) 5 mg PO DAILY [facility] Last Admin: 10/19/16 09:26 Dose: Not Given Atorvastatin [place] (Lipitor -) 40 mg PO HS [facility] Last Admin: 10/18/16 21:56 Dose: 40 mg Sodium Chloride (Normal Saline -) 1,000 mls @ 75 mls/hr IV ASDIR [facility] Last Admin: 10/19/16 00:15 Dose: 75 mls/hr Piperacillin Sod/Tazobactam Sod (Zosyn 3.375gm Ivpb (Pre-Docked)) 50 mls @ 100 mls/hr IVPB Q8H-IV [place] PRN Reason: Protocol Last Admin: 10/19/16 09:22 Dose: 100 mls/hr Labetalol HCl (Normodyne -) 200 mg PO BID [facility] Last Admin: 10/19/16 09:26 Dose: Not Given Metoprolol Tartrate (Lopressor Injection -) 2.5 mg IVPUSH Q4H PRN PRN Reason: HYPERTENSION Morphine Sulfate (Morphine Injection -) 1 mg IVPUSH Q6H PRN PRN Reason: PAIN Last Admin: 10/19/16 01:18 Dose: 1 mg Ondansetron HCl (Zofran Injection) 8 mg IVPB Q6H PRN PRN Reason: NAUSEA AND/OR VOMITING Last Admin: 10/18/16 18:42 Dose: 8 mg - Objective Vital Signs: Vital Signs Temperature 97.8 F 10/19/16 06:00 Pulse Rate 79 10/19/16 10:06 Respiratory Rate 19 10/19/16 08:48 Blood Pressure 160/80 10/19/16 08:00 O2 Sat by Pulse Oximetry (%) 95 10/19/16 10:06 Constitutional: Yes: No Distress, Calm Cardiovascular: Yes: Regular Rate and Rhythm, S1, S2 Respiratory: Yes: Regular, CTA Bilaterally. No: Rales Gastrointestinal: Yes: Normal Bowel Sounds, Soft. No: Palpable Mass, Tenderness Edema: No Neurological: Yes: Alert, Oriented, Other (symmetric motor and sensory in UE/ LE / face) Psychiatric: Yes: Alert, Oriented Labs: CBC, BMP 10/19/16 05:10 10/19/16 05:10 Problem List - Problems (1) Pneumatosis intestinalis Code(s): K63.89 - OTHER SPECIFIED DISEASES OF INTESTINE (2) SBO (small bowel obstruction) Code(s): K56.69 - OTHER INTESTINAL OBSTRUCTION (3) CHF (congestive heart failure) Code(s): I50.9 - HEART FAILURE, UNSPECIFIED (4) CVA (cerebral infarction) Code(s): I63.9 - CEREBRAL INFARCTION, UNSPECIFIED (5) Chronic obstructive pulmonary disease Code(s): J44.9 - CHRONIC OBSTRUCTIVE PULMONARY DISEASE, UNSPECIFIED (6) Hyperlipidemia Code(s): E78.5 - HYPERLIPIDEMIA, UNSPECIFIED Assessment/Plan GI and surgical f/u NPO for now Case was d/w Adi Vela at bedside; is pt needs emrgency surgery: to proceed with surgery; METOPROLOL IVP. AM labs Prognosis: reserved Case was d/w pt.'s ICU nurse Time spent for managing pt.'s care: over 40 minutes
--- NOTE | 2016-10-19 12:45 | PN ---
Progress Note (short form) - Note Progress Note: surgery pt seen and examined. feels well. no pain. wants food. ngt 200 light bile afebrile abd- soft, nt, minimal distension, no peritoneal findings (pt uses abd muscles to breath hampering the exam but no tenderness when muscles relaxed) u/o > 50 per hour Selected Entries 10/18/16 10/18/16 10/19/16 18:00 23:15 02:00 Temperature 97.7 F 97.8 F 97.5 F L Pulse Rate 64 Respiratory 20 Rate Blood Pressure 157/73 O2 Sat by Pulse Oximetry (%) 10/19/16 10/19/16 10/19/16 06:00 08:00 10:06 Temperature 97.8 F Pulse Rate 79 Respiratory Rate Blood Pressure 160/80 O2 Sat by Pulse 95 Oximetry (%) Laboratory Tests 10/18/16 10/19/16 10/19/16 21:15 05:10 05:10 WBC 7.2 5.3 Neutrophils % 65.0 Lactic Acid 1.3 Plan- 81m presented with initial psbo and virgin abd, now with pneumatosis and portal venous gas. on plavix yesterday. Clearly an ischemic event occured but patient does not appear toxic and the bowel is likely recovering. Initial ct showed a calcified sma but patent. Pt and offered exploratory surgery and they decline. The are concerned with the risk of surgery and feel he is improving without surgery. They understand that he may become septic and . keep npo. cont ngt. cont iv abx. hold plavix. would get u/s or mesenteric vessels for vascular opinion on possible underlying disease. Spoke with Dr. Mcrae. will follow. prognosis guarded.
--- NOTE | 2016-10-19 13:05 | CONS ---
DATE OF CONSULTATION: DATE OF DICTATION: 10/19/2016 REQUESTED BY: Jameel Delcid MD This is an 81-year-old man. He was originally presented to the emergency room on October 16 with complaints of mid-epigastric pain and constipation. He was felt at that time to have partial small bowel obstruction. He was treated medically. He improved. He had bowel movements. His abdominal pain resolved. His diet was advanced to liquids on the morning of the . Later that day, he developed abdominal pain and vomiting. He had a repeat CAT scan performed, which showed a small bowel obstruction with the transition zone in the left pelvis. He had evidence of interval development of intramural air, and a dilated small bowel loop was noted as well as portal venous air. He was re-evaluated by both Surgery and GI last night. He was transferred to the ICU for close management, and the surgeon spoke as well with the family who has elected to manage him medically at this time. He was started on piperacillin/tazobactam as well. This morning, he is resting comfortably. He has no abdominal pain. He has an NG tube in place. He is not aware that he vomited yesterday, and he is wondering when he can eat. PAST MEDICAL HISTORY: Notable for history of CVA in the past with a mild right hemiparesis, COPD. He has history of hypercholesterolemia, hypertension and he has had a chest tube for a pneumothorax in the past. He has never had any surgery. He has no known drug allergies. His medications as an outpatient include Plavix, Normodyne, Lasix, aspirin, Spiriva, Norvasc and Lipitor. Currently, he is on Zofran, piperacillin/tazobactam, Tudorza, labetalol, Norvasc, saline, Lipitor and morphine as needed. FAMILY HISTORY: Per the chart, notable for heart disease in his brother. SOCIAL HISTORY: He lives at home with his family. There is no history of substance use. He stopped smoking in 2016. He lives with his spouse. He is retired from the [employer], and he is independent in his ADLs. REVIEW OF SYSTEMS: He currently denies all symptoms. He says he feels fine and he is hungry and he wants to eat. PHYSICAL EXAMINATION: Vital signs: He has had no fever. Temperature is currently 97.8. Blood pressure is 168/80, pulse of 67. Respiratory rate is 20. Saturating 96% on 2 L. HEENT: He is normocephalic. His eyes are anicteric. Neck: Supple. Lungs: Clear to auscultation. Heart: Regular rate and rhythm. Abdomen: Currently is soft. He has an NG tube in place, and it is currently nontender. There is no distention, and he has no pain on palpation. Last dose of pain medication was morphine, which he got at 1 a.m., and it is currently 9:00 a.m. LABORATORIES: Notable for a white count of 5.3, hemoglobin 13.6, platelets are 295. BUN is 8, creatinine 0.7. Urinalysis is notable for 3 white cells. In summary, this is an 81-year-old man admitted to the ICU for pneumatosis intestinalis in a segment of the small bowel, small bowel obstructin. Would continue his IV fluids and IV antibiotics as ordered. Piperacillin/tazobactam should be adequate for GI coverage. He will be followed closely by Surgery with the hopes that he will respond medically but with the possibility that he may need emergent surgery if he deteriorates. Further recommendations to follow based on his clinical course. NORMAN CALLAWAY M.D. [id number] MTDD
--- NOTE | 2016-10-19 15:06 | PN ---
Progress Note, Physician History of Present Illness: 81 year old man with a history of HTN, HLD, COPD, CVA, AAA admitted with abdominal discomfort and constipation concerning for SBO. Pt seen and examined today in nad. He states that he had multiple small BM's yesterday and overnight. denies any current abd pain. denies chest pain, sob, palpitations. no pnd, orthopnea, or LE edema. NG tube in place. PMH LE angio 02/21/2015 Dr. 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 Dr Alcazar PCI LCx 09/20/2014 Dr Alcazar Medical History Reviewed Condition Date Treating Physician Comments Claudication, intermittent HTN Hyperlipidemia TIA/CVA - Current Medication List Current Medications: Active Medications Aclidinium [place] (Tudorza -) 1 puff IH BID [facility] Last Admin: 10/19/16 09:22 Dose: 1 puff Amlodipine Besylate (Norvasc -) 5 mg PO DAILY [facility] Last Admin: 10/19/16 09:26 Dose: Not Given Atorvastatin Calcium (Lipitor -) 40 mg PO HS [facility] Last Admin: 10/18/16 21:56 Dose: 40 mg Sodium Chloride (Normal Saline -) 1,000 mls @ 75 mls/hr IV ASDIR [facility] Last Admin: 10/19/16 00:15 Dose: 75 mls/hr Piperacillin Sod/Tazobactam Sod (Zosyn 3.375gm Ivpb (Pre-Docked)) 50 mls @ 100 mls/hr IVPB Q8H-IV [facility] PRN Reason: Protocol Last Admin: 10/19/16 09:22 Dose: 100 mls/hr Labetalol HCl (Normodyne -) 200 mg PO BID [facility] Last Admin: 10/19/16 09:26 Dose: Not Given Metoprolol Tartrate (Lopressor Injection -) 2.5 mg IVPUSH Q4H PRN PRN Reason: HYPERTENSION Morphine Sulfate (Morphine Injection -) 1 mg IVPUSH Q6H PRN PRN Reason: PAIN Last Admin: 10/19/16 01:18 Dose: 1 mg Ondansetron HCl (Zofran Injection) 8 mg IVPB Q6H PRN PRN Reason: NAUSEA AND/OR VOMITING Last Admin: 10/18/16 18:42 Dose: 8 mg - Objective Vital Signs: Vital Signs Temperature 98.4 F 10/19/16 12:00 Pulse Rate 76 10/19/16 14:00 Respiratory Rate 20 10/19/16 14:00 Blood Pressure 154/86 10/19/16 14:00 O2 Sat by Pulse Oximetry (%) 95 10/19/16 10:06 Eyes: Yes: WNL, Conjunctiva Clear, EOM Intact HENT: Yes: WNL, Atraumatic, Normocephalic Neck: Yes: WNL, Supple, Trachea Midline Cardiovascular: Yes: WNL, Regular Rate and Rhythm Respiratory: Yes: WNL, Regular, CTA Bilaterally Genitourinary: Yes: WNL Musculoskeletal: Yes: WNL Extremities: Yes: WNL Edema: No Integumentary: Yes: WNL Neurological: Yes: WNL, Alert, Oriented ...Motor Strength: WNL Psychiatric: Yes: WNL Labs: CBC, BMP 10/19/16 05:10 10/19/16 05:10 Laboratory Tests 10/16/16 10/16/16 10/16/16 19:35 19:35 19:35 WBC 9.8 D RBC 5.27 Hgb 14.5 Hct 44.6 MCV 84.6 MCHC 32.5 RDW 14.1 Plt Count 322 D MPV 7.0 L Neutrophils % 70.2 D Lymphocytes % 13.5 D Monocytes % 15.0 H Eosinophils % 0.6 D Basophils % 0.7 Sodium 136 Potassium 4.1 Chloride 101 Carbon Dioxide 25 Anion Gap 10 BUN 14 Creatinine 0.9 Creat Clearance w eGFR > 60 Random Glucose 123 H D Lactic Acid Calcium 9.9 Total Bilirubin 2.3 H AST 21 D ALT 23 D Alkaline Phosphatase 105 Total Protein 6.7 Albumin 3.6 Total Amylase 113 Lipase 88 Urine Color Yellow Urine Appearance Slcloudy Urine pH 5.0 D Ur Specific [place] 1.020 Urine Protein 1+ H Urine Glucose (UA) Negative Urine Ketones Negative Urine Blood Negative Urine Nitrite Negative Urine Bilirubin Negative Urine Urobilinogen 2.0 e.u/dl Ur Leukocyte Esterase Negative Urine RBC 49 Urine WBC 3 Ur Epithelial Cells Rare Urine Mucus Few Blood Type Antibody Screen 10/17/16 10/17/16 10/18/16 06:20 06:20 21:15 WBC 8.4 7.2 RBC 5.48 5.14 Hgb 15.3 13.9 Hct 46.3 43.1 MCV 84.4 83.9 MCHC 33.1 32.2 RDW 14.1 13.8 Plt Count 308 270 MPV 7.1 L 6.8 L Neutrophils % 80.8 Lymphocytes % 9.1 D Monocytes % 9.5 Eosinophils % 0.4 Basophils % 0.2 Sodium 138 Potassium 4.1 Chloride 101 Carbon Dioxide 27 Anion Gap 10 BUN 10 D Creatinine 0.7 D Creat Clearance w eGFR > 60 Random Glucose 116 H Lactic Acid Calcium 9.6 Total Bilirubin 2.7 H AST 24 ALT 25 Alkaline Phosphatase 113 Total Protein 6.8 Albumin 3.6 Total Amylase Lipase Urine Color Urine Appearance Urine pH Ur Specific [place] Urine Protein Urine Glucose (UA) Urine Ketones Urine Blood Urine Nitrite Urine Bilirubin Urine Urobilinogen Ur Leukocyte Esterase Urine RBC Urine WBC Ur Epithelial Cells Urine Mucus Blood Type Antibody Screen 10/18/16 10/19/16 10/19/16 21:15 05:10 05:10 WBC 5.3 RBC 4.89 Hgb 13.6 Hct 41.0 MCV 83.7 MCHC 33.2 RDW 14.1 Plt Count 295 MPV 7.2 L Neutrophils % 65.0 Lymphocytes % 16.9 D Monocytes % 16.1 H Eosinophils % 1.6 D Basophils % 0.4 Sodium 137 139 Potassium 3.7 3.6 Chloride 102 102 Carbon Dioxide 24 27 Anion Gap 11 10 BUN 8 8 Creatinine 0.6 L 0.7 Creat Clearance w eGFR > 60 Random Glucose 115 H 115 H Lactic Acid Calcium 8.7 8.4 L Total Bilirubin 2.5 H AST 25 ALT 19 D Alkaline Phosphatase 88 D Total Protein 5.8 L Albumin 3.1 L Total Amylase Lipase Urine Color Urine Appearance Urine pH Ur Specific [place] Urine Protein Urine Glucose (UA) Urine Ketones Urine Blood Urine Nitrite Urine Bilirubin Urine Urobilinogen Ur Leukocyte Esterase Urine RBC Urine WBC Ur Epithelial Cells Urine Mucus Blood Type Antibody Screen 10/19/16 10/19/16 05:10 08:25 WBC RBC Hgb Hct MCV MCHC RDW Plt Count MPV Neutrophils % Lymphocytes % Monocytes % Eosinophils % Basophils % Sodium Potassium Chloride Carbon Dioxide Anion Gap BUN Creatinine Creat Clearance w eGFR Random Glucose Lactic Acid 1.3 Calcium Total Bilirubin AST ALT Alkaline Phosphatase Total Protein Albumin Total Amylase Lipase Urine Color Urine Appearance Urine pH Ur Specific [place] Urine Protein Urine Glucose (UA) Urine Ketones Urine Blood Urine Nitrite Urine Bilirubin Urine Urobilinogen Ur Leukocyte Esterase Urine RBC Urine WBC Ur Epithelial Cells Urine Mucus Blood Type O POSITIVE Antibody Screen Negative Assessment/Plan Ischemic bowel perforated gut PAD ASHD s/p PCI LCx 09/20/2014 HTN Hyperlipidemia TIA/CVA Refusing surgery understand risks of Plan as per surgery and ICU team hold plavix IV lopressor condition is guarded will f/u CC time 35 min
--- NOTE | 2016-10-19 15:08 | PN ---
GI Progress Note Subjective: No acute events from when I saw Mr. Haddad last night. now in ICU w/ NGT in place, 800cc aspirate in suction canister Denies abdominal pain Evaluated by Dr. Carranza. [place] that there may have been an embolic event with segment of small bowel ischemia - Objective Vital Signs: Vital Signs Temperature 98.4 F 10/19/16 12:00 Pulse Rate 76 10/19/16 14:00 Respiratory Rate 20 10/19/16 14:00 Blood Pressure 154/86 10/19/16 14:00 O2 Sat by Pulse Oximetry (%) 95 10/19/16 10:06 Constitutional: Calm Eyes: No: Sclera Icterus Cardiovascular: Yes: Regular Rate and Rhythm Respiratory: Yes: CTA Bilaterally Gastrointestinal Inspection: No: Distention ...Auscultate: Yes: Hyperactive Bowel Sounds ...Palpate: No: Tenderness ...Percussion: No: Tympanitic Edema: No Neurological: Yes: Alert, Oriented Labs: CBC, BMP 10/19/16 05:10 10/19/16 05:10 Problem List - Problems (1) SBO (small bowel obstruction) Assessment/Plan: ? internal hernia. Question of ischemic event however patient noted to be in sinus rhythm. he remains clinically stable Continued supportive measures NGT IV Abx Conservative measures being attempted by surgery Code(s): K56.69 - OTHER INTESTINAL OBSTRUCTION
--- NOTE | 2016-10-19 18:15 | PN ---
Physical Exam: SUBJECTIVE: Patient seen and examined. He doesn't have any complaints today. He denies abdominal pain, nausea, vomitind, dizziness, chest pain. OBJECTIVE: Vital Signs Period Temp Pulse Resp BP Sys/Hernandez Pulse Ox Last 24 Hr 97.5 F-98.4 F 60-84 11-77 140-161/71-86 92-96 GENERAL: The patient is awake, alert, and fully oriented, in no acute distress. HEAD: Normal with no signs of trauma. EYES: extraocular movements intact, sclera anicteric, conjunctiva clear, NG tube draining. ENT: oropharynx clear without exudates, moist mucous membranes. NECK: Trachea midline, full range of motion, supple. LUNGS: clear to auscultation bilaterally, no wheezes, no crackles, no accessory muscle use. HEART: Regular rate and rhythm, S1, S2 without murmur, rub or gallop. ABDOMEN: Soft, nontender, nondistended, normoactive bowel sounds, no guarding, no rebound. EXTREMITIES: 2+ pulses, warm, well-perfused, no edema. NEUROLOGICAL: No facial asymmetry. Normal speech, gait not observed. PSYCH: Normal mood, normal affect. SKIN: Warm, dry, normal turgor, no rashes or lesions noted Laboratory Results - last 24 hr 10/18/16 10/18/16 10/19/16 21:15 21:15 05:10 WBC 7.2 5.3 RBC 5.14 4.89 Hgb 13.9 13.6 Hct 43.1 41.0 MCV 83.9 83.7 MCHC 32.2 33.2 RDW 13.8 14.1 Plt Count 270 295 MPV 6.8 L 7.2 L Neutrophils % 80.8 65.0 Lymphocytes % 9.1 D 16.9 D Monocytes % 9.5 16.1 H Eosinophils % 0.4 1.6 D Basophils % 0.2 0.4 Sodium 137 Potassium 3.7 Chloride 102 Carbon Dioxide 24 Anion Gap 11 BUN 8 Creatinine 0.6 L Creat Clearance w eGFR Random Glucose 115 H Lactic Acid Calcium 8.7 Total Bilirubin AST ALT Alkaline Phosphatase Total Protein Albumin Blood Type Antibody Screen 10/19/16 10/19/16 10/19/16 05:10 05:10 08:25 WBC RBC Hgb Hct MCV MCHC RDW Plt Count MPV Neutrophils % Lymphocytes % Monocytes % Eosinophils % Basophils % Sodium 139 Potassium 3.6 Chloride 102 Carbon Dioxide 27 Anion Gap 10 BUN 8 Creatinine 0.7 Creat Clearance w eGFR > 60 Random Glucose 115 H Lactic Acid 1.3 Calcium 8.4 L Total Bilirubin 2.5 H AST 25 ALT 19 D Alkaline Phosphatase 88 D Total Protein 5.8 L Albumin 3.1 L Blood Type O POSITIVE Antibody Screen Negative Active Medications Generic Name Dose Route Start Last Admin Trade Name Freq PRN Reason Stop Dose Admin Aclidinium [place] 1 puff 10/17/16 10:00 10/19/16 09:22 Tudorza - IH 1 puff BID MODESTA Administration Amlodipine Besylate 5 mg 10/17/16 10:00 10/19/16 09:26 Norvasc - PO Not Given DAILY MODESTA Atorvastatin Calcium 40 mg 10/17/16 22:00 10/18/16 21:56 Lipitor - PO 40 mg HS MODESTA Administration Sodium Chloride 1,000 mls @ 75 mls/hr 10/17/16 00:30 10/19/16 00:15 Normal Saline - IV 75 mls/hr ASDIR MODESTA Administration Piperacillin Sod/Tazobactam Sod 50 mls @ 100 mls/hr 10/18/16 21:45 10/19/16 09: 22 Zosyn 3.375gm Ivpb (Pre-Docked) IVPB 100 mls/hr Q8H-IV [facility]DE[facility] Administration Protocol Labetalol HCl 200 mg 10/17/16 06:30 10/19/16 09:26 Normodyne - PO Not Given BID MODESTA Metoprolol Tartrate 2.5 mg 10/19/16 11:41 Lopressor Injection - IVPUSH Q4H PRN HYPERTENSION Morphine Sulfate 1 mg 10/18/16 18:34 10/19/16 01:18 Morphine Injection - IVPUSH 1 mg Q6H PRN Administration PAIN Ondansetron HCl 8 mg 10/18/16 18:34 10/18/16 18:42 Zofran Injection IVPB 8 mg Q6H PRN Administration NAUSEA AND/OR VOMITING ASSESSMENT/PLAN: 81yom with PMHx of HTN, CHF, CVA, TIA, COPD and HLD who presented to ED on 10/16 with c/o of abd pain,vomiting and belching up of food x 4days and constipation. 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 OR deferred d/t pt on plavix and medical comorbidities. pneumatosis interstinalis: -the family agrees to surgery only in emergency -medical management, monitoring vs., -NPO, -continue NG tube -f/u surgery recommendations, the family believes that the pt shouldn't undergo surgery due to his comorbidities, age and recent use of plavix. The understand the risk and benefits of avoiding surgery - IVF 75 ml/hr will change to ringer lactate -continue Zosyn 3.375gm Ivpb Q8h Hypertension/CAD: -hold Lopressor and Norvasc -f/u cardiology recommendations -cardiac monitoring -hold Plavix HDL: -cont Lipitor DVT PPX: -scds F/E/N Rl/no changes/NPO Problem List - Problems (1) Pneumatosis intestinalis Code(s): K63.89 - OTHER SPECIFIED DISEASES OF INTESTINE (2) SBO (small bowel obstruction) Code(s): K56.69 - OTHER INTESTINAL OBSTRUCTION (3) Abdominal aortic aneurysm (AAA) Code(s): I71.4 - ABDOMINAL AORTIC ANEURYSM, WITHOUT RUPTURE (4) CVA (cerebral infarction) Code(s): I63.9 - CEREBRAL INFARCTION, UNSPECIFIED (5) Chronic obstructive pulmonary disease Code(s): J44.9 - CHRONIC OBSTRUCTIVE PULMONARY DISEASE, UNSPECIFIED (6) HTN (hypertension) Code(s): I10 - ESSENTIAL (PRIMARY) HYPERTENSION Visit type - Emergency Visit Emergency Visit: Yes ED Registration Date: 10/17/16 Care time: The patient presented to the Emergency Department on the above date and was hospitalized for further evaluation of their emergent condition. - New Patient This patient is new to me today: Yes Date on this admission: 10/19/16 - Critical Care Critical Care patient: Yes Total Critical Care Time (in minutes): 45 Critical Care Statement: The care of this patient involved high complexity decision making to prevent further life threatening deterioration of the patient 's condition and/or to evalute & treat vital organ system(s) failure or risk of failure.
[2016-10-20] MEDS: SODIUM CHLORIDE 1,000 ML IV SCH ×2 (00:45→09:20)
[2016-10-20] MEDS: PIPERACILLIN/TAZOB 3.375 GM 50 ML IVPB SCH ×3 (03:36→18:49)
[2016-10-20 06:29] LABS: MCH 27.9 pg (25.7-33.7); MEAN CELL VOLUME 84.7 fl (80-96); MEAN PLT VOLUME 7.4 fl (7.5-11.1); PLATELET COUNT 301 K/MM3 (134-434); RDW 13.8 % (11.9-15.9); WHITE BLOOD COUNT 9.5 K/mm3 (4.0-10.0)
[2016-10-20 06:51] LABS: ALBUMIN 3.3 g/dl (3.4-5.0); ALK PHOS 97 U/L (45-117); ANION GAP 11 (8-16); BILIRUBIN,TOTAL 2.5 mg/dL (0.2-1.0); CO2 30 mmol/L (21-32); COCKROFT - GAULT 68; CREATININE 0.7 mg/dL (0.7-1.3); GLUCOSE,RANDOM 86 mg/dL (74-106); SGOT/AST 29 U/L (15-37); SGPT/ALT 22 U/L (12-78); TOT PROT 6.4 g/dl (6.4-8.2)
[2016-10-20] MEDS: amLODIPine BESYLATE 5 MG TABLET (FP) PO SCH (09:19)
[2016-10-20] MEDS: LABETALOL HCL 200 MG TABLET (FP) PO SCH (09:19)
[2016-10-20] MEDS: ACLIDINIUM BROMIDE 400 MCG/INH AERO.POWD IH SCH ×2 (09:24→21:22)
--- NOTE | 2016-10-20 09:33 | PN ---
Progress Note, Physician History of Present Illness: Pt. in ICU, was seen and examined. NGT present (on low sucction) Pt. w/o N, V, abd. pain. Pt w/o CP, SOB, Palp. - Current Medication List Current Medications: Active Medications Aclidinium [place] (Tudorza -) 1 puff IH BID [facility] Last Admin: 10/20/16 09:24 Dose: 1 puff Amlodipine Besylate (Norvasc -) 5 mg PO DAILY [facility] Last Admin: 10/20/16 09:19 Dose: Not Given Atorvastatin Calcium (Lipitor -) 40 mg PO HS [facility] Last Admin: 10/18/16 21:56 Dose: 40 mg Sodium Chloride (Normal Saline -) 1,000 mls @ 75 mls/hr IV ASDIR [facility] Last Admin: 10/20/16 09:20 Dose: 75 mls/hr Piperacillin Sod/Tazobactam Sod (Zosyn 3.375gm Ivpb (Pre-Docked)) 50 mls @ 100 mls/hr IVPB Q8H-IV [facility] PRN Reason: Protocol Last Admin: 10/20/16 09:22 Dose: 100 mls/hr Labetalol HCl (Normodyne -) 200 mg PO BID [facility] Last Admin: 10/20/16 09:19 Dose: Not Given Metoprolol Tartrate (Lopressor Injection -) 2.5 mg IVPUSH Q4H PRN PRN Reason: HYPERTENSION Morphine Sulfate (Morphine Injection -) 1 mg IVPUSH Q6H PRN PRN Reason: PAIN Last Admin: 10/19/16 01:18 Dose: 1 mg Ondansetron HCl (Zofran Injection) 8 mg IVPB Q6H PRN PRN Reason: NAUSEA AND/OR VOMITING Last Admin: 10/18/16 18:42 Dose: 8 mg - Objective Vital Signs: Vital Signs Temperature 98.2 F 10/20/16 00:00 Pulse Rate 87 10/20/16 08:00 Respiratory Rate 20 10/20/16 08:00 Blood Pressure 152/76 10/20/16 08:00 O2 Sat by Pulse Oximetry (%) 97 10/20/16 07:24 Constitutional: Yes: No Distress, Calm Cardiovascular: Yes: Regular Rate and Rhythm, S1, S2 Respiratory: Yes: Regular, CTA Bilaterally. No: Rales Gastrointestinal: Yes: Normal Bowel Sounds, Soft, Hypoactive Bowel Sounds. No: Palpable Mass, Tenderness Edema: No Neurological: Yes: Alert, Oriented Labs: CBC, BMP 10/20/16 05:15 10/20/16 05:15 Problem List - Problems (1) Pneumatosis intestinalis Code(s): K63.89 - OTHER SPECIFIED DISEASES OF INTESTINE (2) SBO (small bowel obstruction) Code(s): K56.69 - OTHER INTESTINAL OBSTRUCTION (3) CHF (congestive heart failure) Code(s): I50.9 - HEART FAILURE, UNSPECIFIED (4) CVA (cerebral infarction) Code(s): I63.9 - CEREBRAL INFARCTION, UNSPECIFIED (5) Chronic obstructive pulmonary disease Code(s): J44.9 - CHRONIC OBSTRUCTIVE PULMONARY DISEASE, UNSPECIFIED (6) Hyperlipidemia Code(s): E78.5 - HYPERLIPIDEMIA, UNSPECIFIED Assessment/Plan GI and surgical f/u appreciated NPO for now NGT to low sucction Case was d/w Adi Vela at bedside; to continue Metorolol IVP, to titrate to SBP < 140; case was d/w pt.'s nurse. Pt. so far asymptomatic, hemodynamically stable. To f/u with surgical team regarding course of treatment. Vasc Sx consult. AM labs Prognosis: reserved Case was d/w pt.'s ICU nurse Time spent for managing pt.'s care: over 35 minutes
[2016-10-20] MEDS: METOPROLOL TARTRATE 5 MG/5 ML VIAL IVPUSH PRN (09:53)
--- NOTE | 2016-10-20 10:45 | PN ---
Progress Note (short form) - Note Progress Note: no complaints oob in chair he is hungry +NGT no BM Vital Signs Period Temp Pulse Resp BP Sys/Hernandez Pulse Ox Last 24 Hr 98.2 F-98.4 F 67-90 12-22 139-159/73-99 97-97 +NGT cor-rrr llungs clear abd soft,nt ext no edema CBC, BMP 10/20/16 05:15 10/20/16 05:15 imp/reccd SBO pneumotosis coli of small bowel- currently being medically managed with close surgical f/u
--- NOTE | 2016-10-20 10:56 | EKG ---
Test Reason : Blood Pressure : / mmHG Vent. Rate : 071 BPM Atrial Rate : 071 BPM P-R Int : 198 ms QRS Dur : 080 ms QT Int : 400 ms P-R-T Axes : 075 043 061 degrees QTc Int : 434 ms SINUS RHYTHM WITH PREMATURE VENTRICULAR COMPLEXES WITH ABERRANT CONDUCTION WHEN COMPARED WITH ECG OF 02-MAR-2016 12:27, PREMATURE VENTRICULAR COMPLEXES ARE PRESENT Confirmed by JOEY TIM MD ([id number]) on 10/20/2016 10:56:24 AM Referred By: Confirmed By:JOEY TIM MD
--- NOTE | 2016-10-20 11:11 | PN ---
Progress Note, Physician History of Present Illness: 81 year old man with a history of HTN, HLD, COPD, CVA, AAA admitted with abdominal discomfort and constipation concerning for SBO. Pt seen and examined today in nad. He states that he had multiple small BM's yesterday and overnight. denies any current abd pain. denies chest pain, sob, palpitations. no pnd, orthopnea, or LE edema. NG tube in place. PMH LE angio 02/21/2015 Dr. Alcazar Left EIA/[employer] DCB 08/10/2014 Dr Alcazar PCI LCx 09/20/2014 Dr Alcazar Medical History Reviewed Condition Date Treating Physician Comments Claudication, intermittent HTN Hyperlipidemia TIA/CVA - Current Medication List Current Medications: Active Medications Aclidinium [place] (Tudorza -) 1 puff IH BID [facility] Last Admin: 10/20/16 09:24 Dose: 1 puff Amlodipine Besylate (Norvasc -) 5 mg PO DAILY [facility] Last Admin: 10/20/16 09:19 Dose: Not Given Atorvastatin Calcium (Lipitor -) 40 mg PO HS [facility] Last Admin: 10/18/16 21:56 Dose: 40 mg Sodium Chloride (Normal Saline -) 1,000 mls @ 75 mls/hr IV ASDIR [facility] Last Admin: 10/20/16 09:20 Dose: 75 mls/hr Piperacillin Sod/Tazobactam Sod (Zosyn 3.375gm Ivpb (Pre-Docked)) 50 mls @ 100 mls/hr IVPB Q8H-IV [facility] PRN Reason: Protocol Last Admin: 10/20/16 09:22 Dose: 100 mls/hr Labetalol HCl (Normodyne -) 200 mg PO BID [facility] Last Admin: 10/20/16 09:19 Dose: Not Given Metoprolol Tartrate (Lopressor Injection -) 2.5 mg IVPUSH Q4H PRN PRN Reason: HYPERTENSION Last Admin: 10/20/16 09:53 Dose: 2.5 mg Morphine Sulfate (Morphine Injection -) 1 mg IVPUSH Q6H PRN PRN Reason: PAIN Last Admin: 10/19/16 01:18 Dose: 1 mg Ondansetron HCl (Zofran Injection) 8 mg IVPB Q6H PRN PRN Reason: NAUSEA AND/OR VOMITING Last Admin: 10/18/16 18:42 Dose: 8 mg - Objective Vital Signs: Vital Signs Temperature 98.2 F 10/20/16 00:00 Pulse Rate 88 10/20/16 10:00 Respiratory Rate 20 10/20/16 10:00 Blood Pressure 149/88 10/20/16 10:00 O2 Sat by Pulse Oximetry (%) 97 10/20/16 07:24 Eyes: Yes: WNL, Conjunctiva Clear, EOM Intact HENT: Yes: WNL, Atraumatic, Normocephalic Neck: Yes: WNL, Supple, Trachea Midline Cardiovascular: Yes: WNL, Regular Rate and Rhythm Respiratory: Yes: WNL, Regular, CTA Bilaterally Genitourinary: Yes: WNL Musculoskeletal: Yes: WNL Extremities: Yes: WNL Edema: No Integumentary: Yes: WNL Neurological: Yes: WNL, Alert, Oriented ...Motor Strength: WNL Psychiatric: Yes: WNL Labs: CBC, BMP 10/20/16 05:15 10/20/16 05:15 Assessment/Plan Ischemic bowel perforated gut PAD ASHD s/p PCI LCx 09/20/2014 HTN Hyperlipidemia TIA/CVA Refusing surgery understand risks of Plan as per surgery and ICU team hold plavix increase IV lopressor condition is guarded will f/u d/w dr. Delcid and ICU resident CC time 35 min
--- NOTE | 2016-10-20 11:27 | CONS ---
DATE OF CONSULTATION: 10/17/2016 REASON FOR CONSULTATION: Small-bowel obstruction. HISTORY OF PRESENT ILLNESS: This is an emergency room consultation at the request of the emergency room physician. The patient complains of 4 days of constipation as well as some belching and possible vomiting of food. He has not had a bowel movement in 4 days at his arrival in the emergency room and went for a CAT scan of his abdomen and pelvis which was read as a possible bowel obstruction. The CAT scan essentially shows dilated loops of small bowel without a transition point and normal-appearing caliber colon. Patient was admitted overnight. Has apparently had bowel movement. He has had minimal output from his NG tube which is not bilious and states he feels much better. He denies blood in his stool. Denies blood in his vomit. He denies having a recent colonoscopy. PAST MEDICAL HISTORY: Significant for multiple medical problems, including stroke, heart failure, hypertension, hyperlipidemia, aneurysm, and COPD. MEDICATIONS: Have been reviewed. They include Plavix which he is on, Lipitor, Norvasc, Lasix, aspirin, and Spiriva. ALLERGIES: He has no known drug allergies. FAMILY HISTORY: Noncontributory. PAST SURGICAL HISTORY: Significant for a chest tube placement but no abdominal surgeries. REVIEW OF SYSTEMS:General: Denies fatigue or malaise. Cardiac: Denies chest pain or palpitations. Respiratory: Denies shortness of breath or wheeze. Gastrointestinal: As in HPI. Genitourinary: Denies dysuria. Musculoskeletal: Denies joint pain, joint swelling. Psychiatric: Denies anxiety, depression, or hearing voices. PHYSICAL EXAMINATION:General: This is a thin 81-year-old male in no distress. Vital Signs: He is afebrile. Head: Normocephalic with the exception of temporal wasting. Neck: Supple. Chest: Clear. Abdomen: Difficult to examine because the patient will not cooperate by relaxing his abdominal wall. However, he does not appear to be tender. There are no surgical scars. He is mildly distended. Extremities: Have trace edema. LABORATORY DATA: On review of his laboratory, his white blood cell count is normal at 8.4 without a shift. His chemistries are unremarkable with the exception of an elevated total bilirubin of 2.7. The remainder of his liver function tests is normal. IMAGING: As stated in HPI. At this point, I requested an abdominal x-ray to follow the migration of contrast and it clearly shows contrast throughout his colon. There are dilated loops of small bowel as well. ASSESSMENT: This is an 81-year-old male with multiple medical problems with 4 days of abdominal discomfort, some vomiting, constipation, now having bowel movements. His x-ray confirms that he does not have a complete bowel obstruction. This is most likely an ileus versus possible partial bowel obstruction. RECOMMENDATIONS: At this point, I will remove his nasogastric tube as he has had minimal output anyway. If he remains well, tomorrow I would start him on a liquid diet. He will ultimately need a colonoscopy to evaluate his terminal ileum and the elevated bilirubin is likely from not eating, but this should be followed by the GI service. Patient is currently nontoxic and he has no evidence of bowel compromise. DO VALORIE AGUDELO/[id number]
--- NOTE | 2016-10-20 12:18 | PN ---
Teaching Attending Note Name of Resident: Kayleigh Ibrahim ATTENDING PHYSICIAN STATEMENT I saw and evaluated the patient. I reviewed the resident's note and discussed the case with the resident. I agree with the resident's findings and plan as documented. SUBJECTIVE: Pt seen and examined in the ICU. Denies any abdominal pain, nausea or vomiting. No fevers recorded. OBJECTIVE: Last Vital Signs Temp Pulse Resp BP Pulse Ox 98.2 F 72 18 155/88 97 10/20/16 00:00 10/20/16 12:00 10/20/16 12:00 10/20/16 12:00 10/20/16 07:24 Intake & Output 10/17/16 10/18/16 10/19/16 10/20/16 23:59 23:59 23:59 23:59 Intake Total 1885 1386 1625 733.6 Output Total 1186 359 8637 400 Balance -15 1086 -225 333.6 Weight 119 lb 11.2 oz 128 lb 12.8 oz 129 lb 3.054 oz Gen: NAD in chair Heart: RRR Lung: decreased breath sounds at the bases Abd: mild guarding but nontender, no rebound Ext: no edema CBC, BMP 10/20/16 05:15 10/20/16 05:15 Active Medications Aclidinium [place] (Tudorza -) 1 puff IH BID [facility] Last Admin: 10/20/16 09:24 Dose: 1 puff Amlodipine Besylate (Norvasc -) 5 mg PO DAILY [facility] Last Admin: 10/20/16 09:19 Dose: Not Given Atorvastatin Calcium (Lipitor -) 40 mg PO HS [facility] Last Admin: 10/18/16 21:56 Dose: 40 mg Sodium Chloride (Normal Saline -) 1,000 mls @ 75 mls/hr IV ASDIR [facility] Last Admin: 10/20/16 09:20 Dose: 75 mls/hr Piperacillin Sod/Tazobactam Sod (Zosyn 3.375gm Ivpb (Pre-Docked)) 50 mls @ 100 mls/hr IVPB Q8H-IV MODESTA PRN Reason: Protocol Last Admin: 10/20/16 09:22 Dose: 100 mls/hr Labetalol HCl (Normodyne -) 200 mg PO BID [facility] Last Admin: 10/20/16 09:19 Dose: Not Given Metoprolol Tartrate (Lopressor Injection -) 2.5 mg IVPUSH Q4H PRN PRN Reason: HYPERTENSION Last Admin: 10/20/16 09:53 Dose: 2.5 mg Morphine Sulfate (Morphine Injection -) 1 mg IVPUSH Q6H PRN PRN Reason: PAIN Last Admin: 10/19/16 01:18 Dose: 1 mg Ondansetron HCl (Zofran Injection) 8 mg IVPB Q6H PRN PRN Reason: NAUSEA AND/OR VOMITING Last Admin: 10/18/16 18:42 Dose: 8 mg ASSESSMENT AND PLAN: Pneumoatosis Intestinalis COPD HTN Hyperlipidemia CHF h/o CVA - continue antibiotics - f/u cultures - surgery on standby for ex-lap once plavix wears off - for mesenteric dopplers, CTA A/P - pain control - incentive spirometry - IVF - NPO - monitor abdominal exam - DVT prophylaxis - continue ICU monitoring for now critical care time spent in reviewing chart, evaluating patient and formulating plan 35 min
--- NOTE | 2016-10-20 12:27 | PN ---
Progress Note (short form) - Note Progress Note: surgery pt seen and examined. feels well. wants food. ngt 1000 bilious afebrile abd- soft, nt, minimal distension u/o amount not recorded Plan- 81m presented with initial psbo and virgin abd, now with pneumatosis and portal venous gas. on plavix Wednesday. Clearly an ischemic event occured but patient does not appear toxic and the bowel is likely recovering. Initial ct showed a calcified sma but patent. Pt and offered exploratory surgery and they decline. The are concerned with the risk of surgery and feel he is improving without surgery. They understand that he may become septic and . keep npo. cont ngt. cont iv abx. hold plavix. awaiting vascular opinion and imaging of mesenteric vasculature. ok to start heparin. may need repeat ct tomorrow with oral and iv contrast unless contrast study done today.
--- NOTE | 2016-10-20 13:27 | PN ---
Physical Exam: SUBJECTIVE: Patient seen and examined in ICU. He doesn't have any complaints. He is sitting in chair, denies abdominal pain, N/V, diarrhea, fever, chills. OBJECTIVE: Vital Signs Period Temp Pulse Resp BP Sys/Hernanedz Pulse Ox Last 24 Hr 98.2 F 67-90 12-22 139-159/73-99 97-97 GENERAL: The patient is awake, alert, and fully oriented, in no acute distress. HEAD: Normal with no signs of trauma. EYES: extraocular movements intact, sclera anicteric, conjunctiva clear, NG tube draining. ENT: oropharynx clear without exudates, moist mucous membranes. NECK: Trachea midline, full range of motion, supple. LUNGS: clear to auscultation bilaterally, no wheezes, no crackles, no accessory muscle use. HEART: Regular rate and rhythm, S1, S2 without murmur, rub or gallop. ABDOMEN: Soft, nontender, nondistended, normoactive bowel sounds, no guarding, no rebound. EXTREMITIES: 2+ pulses, warm, well-perfused, no edema. NEUROLOGICAL: No facial asymmetry. Normal speech, gait not observed. PSYCH: Normal mood, normal affect. SKIN: Warm, dry, normal turgor, no rashes or lesions noted I&0 gastric tube 400 ml today Laboratory Results - last 24 hr 10/20/16 10/20/16 05:15 05:15 WBC 9.5 D RBC 5.29 Hgb 14.8 Hct 44.8 MCV 84.7 MCHC 33.0 RDW 13.8 Plt Count 301 MPV 7.4 L Sodium 139 Potassium 3.7 Chloride 98 Carbon Dioxide 30 Anion Gap 11 BUN 8 Creatinine 0.7 Creat Clearance w eGFR > 60 Random Glucose 86 D Calcium 9.0 Total Bilirubin 2.5 H AST 29 ALT 22 Alkaline Phosphatase 97 Total Protein 6.4 Albumin 3.3 L Active Medications Generic Name Dose Route Start Last Admin Trade Name Freq PRN Reason Stop Dose Admin Aclidinium [place] 1 puff 10/17/16 10:00 10/20/16 09:24 Tudorza - IH 1 puff BID MODESTA Administration Amlodipine Besylate 5 mg 10/17/16 10:00 10/20/16 09:19 Norvasc - PO Not Given DAILY MODESTA Atorvastatin Calcium 40 mg 10/17/16 22:00 10/18/16 21:56 Lipitor - PO 40 mg HS MODESTA Administration Heparin Sodium (Porcine) 5,000 unit 10/20/16 14:00 Heparin - SQ TID MODESTA Sodium Chloride 1,000 mls @ 75 mls/hr 10/17/16 00:30 10/20/16 09:20 Normal Saline - IV 75 mls/hr ASDIR MODESTA Administration Piperacillin Sod/Tazobactam Sod 50 mls @ 100 mls/hr 10/18/16 21:45 10/20/16 09: 22 Zosyn 3.375gm Ivpb (Pre-Docked) IVPB 100 mls/hr Q8H-IV MODESTA Administration Protocol Labetalol HCl 200 mg 10/17/16 06:30 10/20/16 09:19 Normodyne - PO Not Given BID MODESTA Metoprolol Tartrate 2.5 mg 10/20/16 09:31 10/20/16 09:53 Lopressor Injection - IVPUSH 2.5 mg Q4H PRN Administration HYPERTENSION Morphine Sulfate 1 mg 10/18/16 18:34 10/19/16 01:18 Morphine Injection - IVPUSH 1 mg Q6H PRN Administration PAIN Ondansetron HCl 8 mg 10/18/16 18:34 10/18/16 18:42 Zofran Injection IVPB 8 mg Q6H PRN Administration NAUSEA AND/OR VOMITING ASSESSMENT/PLAN: 81yom with PMHx of HTN, CHF, CVA, TIA, COPD and HLD who presented to ED on 10/16 with c/o of abd pain,vomiting and belching up of food x 4days and constipation. 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 OR deferred d/t pt on plavix and medical comorbidities. pneumatosis interstinalis: -the family agrees to surgery only in emergency -medical management -NPO -continue NG tube -f/u surgery recommendations, the family believes that the pt shouldn't undergo surgery due to his comorbidities, age and recent use of plavix. They understand the risk and benefits of avoiding surgery -f/u Dr. Mcrae recommendations, he will go for CTA of abdomen to r/o SMA -IVF 75 ml/hr will change to ringer lactate -continue Zosyn 3.375gm Ivpb Q8h Hypertension/CAD: -hold Lopressor and Norvasc -f/u cardiology recommendations -cardiac monitoring -hold Plavix HDL: -cont Lipitor DVT PPX: -Heparin 5000 u Sq Q8h F/E/N Rl/no changes/NPO Problem List - Problems (1) Pneumatosis intestinalis Code(s): K63.89 - OTHER SPECIFIED DISEASES OF INTESTINE (2) SBO (small bowel obstruction) Code(s): K56.69 - OTHER INTESTINAL OBSTRUCTION (3) Abdominal aortic aneurysm (AAA) Code(s): I71.4 - ABDOMINAL AORTIC ANEURYSM, WITHOUT RUPTURE (4) CVA (cerebral infarction) Code(s): I63.9 - CEREBRAL INFARCTION, UNSPECIFIED (5) Chronic obstructive pulmonary disease Code(s): J44.9 - CHRONIC OBSTRUCTIVE PULMONARY DISEASE, UNSPECIFIED (6) HTN (hypertension) Code(s): I10 - ESSENTIAL (PRIMARY) HYPERTENSION Visit type - Emergency Visit Emergency Visit: Yes ED Registration Date: 10/17/16 Care time: The patient presented to the Emergency Department on the above date and was hospitalized for further evaluation of their emergent condition. - New Patient This patient is new to me today: No - Critical Care Critical Care patient: Yes Total Critical Care Time (in minutes): 40 Critical Care Statement: The care of this patient involved high complexity decision making to prevent further life threatening deterioration of the patient 's condition and/or to evalute & treat vital organ system(s) failure or risk of failure.
--- NOTE | 2016-10-20 13:41 | PN ---
Progress Note (short form) - Note Progress Note: Vascular Surgery Pt seen and examined. Sitting in chair. CTA of mesenterics ordered. Will follow CTA to rule out SMA stenosis Attila Mcrae DO
[2016-10-20] MEDS: HEPARIN NA (PORCINE) 5,000 UNITS/ML 1ML VIAL SQ SCH ×2 (15:35→21:22)
--- NOTE | 2016-10-20 21:03 | PN ---
GI Progress Note Subjective: No acute events Mr. Haddad denies any abdominal pain Had CTA of the abdomen performed however not as of yet read. Discussed reading currently in [employer] as it did not appear to match up with a CTA study. - Objective Vital Signs: Vital Signs Temperature 98.3 F 10/20/16 18:00 Pulse Rate 79 10/20/16 20:00 Respiratory Rate 15 10/20/16 20:18 Blood Pressure 152/79 10/20/16 20:00 O2 Sat by Pulse Oximetry (%) 99 10/20/16 20:18 Constitutional: Calm Eyes: No: Sclera Icterus Cardiovascular: Yes: Regular Rate and Rhythm Respiratory: Yes: CTA Bilaterally Gastrointestinal Inspection: No: Distention ...Auscultate: Yes: Normoactive Bowel Sounds ...Palpate: No: Tenderness Edema: No Neurological: Yes: Alert Labs: CBC, BMP 10/20/16 05:15 10/20/16 05:15 Hepatic Panel Total Bilirubin 2.5 mg/dL (0.2-1.0) H 10/20/16 05:15 AST 29 U/L (15-37) 10/20/16 05:15 ALT 22 U/L (12-78) 10/20/16 05:15 Alkaline Phosphatase 97 U/L (45-117) 10/20/16 05:15 Albumin 3.3 g/dl (3.4-5.0) L 10/20/16 05:15 Problem List - Problems (1) SBO (small bowel obstruction) Assessment/Plan: Remains hemodynamically stable without abdominal pain currently ? internal hernia / band causing SBO with compromise to small bowel loop. Currently being evaluated from a vascular standpoint. CTA not read as of yet. I was advised by Dr. Calvert to have the study sent to [employer]. When the [facility] read is in I advised Mr. Haddad' nurse jose that she call Dr. Mcrae, vascular surgeon, with the reading Monitor clinically Surgery following Abx If continued NPO for prolonged peroid of time may require TPN Code(s): K56.69 - OTHER INTESTINAL OBSTRUCTION
--- NOTE | 2016-10-20 21:43 | PN ---
Progress Note (short form) - Note Progress Note: surgery cta reviewed. no more pneumatosis. no more air in liver. ?transition point. will review with radiology in am. hold heparin at 3am for poss surgery in am. Plavix now has been held since Wednesday. Pt has no sepsis but does not have return of bowel function with 800 in ngt so far today. Will either proceed with surgery vs TPN and prolonged medical management.
[2016-10-21] MEDS: SODIUM CHLORIDE 1,000 ML IV SCH ×2 (00:30→09:14)
[2016-10-21] MEDS: PIPERACILLIN/TAZOB 3.375 GM 50 ML IVPB SCH ×3 (02:07→17:08)
[2016-10-21 06:25] LABS: MCH 27.6 pg (25.7-33.7); MCHC 32.6 g/dl (32.0-35.9); MEAN CELL VOLUME 84.5 fl (80-96); MEAN PLT VOLUME 7.2 fl (7.5-11.1); PLATELET COUNT 314 K/MM3 (134-434); RDW 13.9 % (11.9-15.9)
[2016-10-21 07:02] LABS: ALBUMIN 3.1 g/dl (3.4-5.0); ANION GAP 12 (8-16); CALCIUM 9.6 mg/dL (8.5-10.1); CO2 30 mmol/L (21-32); GLUCOSE,RANDOM 104 mg/dL (74-106); MAGNESIUM 2.2 mg/dL (1.8-2.4); SGOT/AST 26 U/L (15-37)
[2016-10-21 07:05] LABS: ALK PHOS 91 U/L (45-117); BILIRUBIN,TOTAL 2.2 mg/dL (0.2-1.0); CREATININE 0.6 mg/dL (0.7-1.3); PHOSPHOROUS 2.7 mg/dL (2.5-4.9); SGPT/ALT 21 U/L (12-78); TOT PROT 6.6 g/dl (6.4-8.2)
--- NOTE | 2016-10-21 09:03 | PN ---
Physical Exam: SUBJECTIVE: Patient seen and examined in ICU. He is feeling good today. He denies abdominal pain, nausea, vomiting, BMs. OBJECTIVE: Vital Signs Period Temp Pulse Resp BP Sys/Hernandez Pulse Ox Last 24 Hr 97.0 F-98.3 F 68-88 12-24 131-171/65-91 99-100 GENERAL: The patient is awake, alert, and fully oriented, in no acute distress. HEAD: Normal with no signs of trauma. EYES: extraocular movements intact, sclera anicteric, conjunctiva clear, NG tube draining brown fluid. ENT: oropharynx clear without exudates, moist mucous membranes. NECK: Trachea midline, full range of motion, supple. LUNGS: clear to auscultation bilaterally, no wheezes, no crackles, no accessory muscle use. HEART: Regular rate and rhythm, S1, S2 without murmur, rub or gallop. ABDOMEN: Soft, nontender, nondistended, normoactive bowel sounds, no guarding, no rebound. EXTREMITIES: 2+ pulses, warm, well-perfused, no edema. NEUROLOGICAL: No facial asymmetry, normal speech, gait not observed. PSYCH: Normal mood, normal affect. SKIN: Warm, dry, normal turgor, no rashes. Laboratory Results - last 24 hr 10/21/16 10/21/16 05:15 05:15 WBC 9.0 RBC 5.48 Hgb 15.1 Hct 46.3 MCV 84.5 MCHC 32.6 RDW 13.9 Plt Count 314 MPV 7.2 L Sodium 142 Potassium 3.5 Chloride 100 Carbon Dioxide 30 Anion Gap 12 BUN 11 D Creatinine 0.6 L Creat Clearance w eGFR > 60 Random Glucose 104 D Calcium 9.6 Phosphorus 2.7 Magnesium 2.2 D Total Bilirubin 2.2 H AST 26 ALT 21 Alkaline Phosphatase 91 Total Protein 6.6 Albumin 3.1 L Active Medications Generic Name Dose Route Start Last Admin Trade Name Freq PRN Reason Stop Dose Admin Aclidinium [place] 1 puff 10/17/16 10:00 10/20/16 21:22 Tudorza - IH 1 puff BID MODESTA Administration Amlodipine Besylate 5 mg 10/17/16 10:00 10/20/16 09:19 Norvasc - PO Not Given DAILY MODESTA Atorvastatin Calcium 40 mg 10/17/16 22:00 10/18/16 21:56 Lipitor - PO 40 mg HS MODESTA Administration Heparin Sodium (Porcine) 5,000 unit 10/20/16 14:00 10/20/16 21:22 Heparin - SQ 5,000 unit TID MODESTA Administration Sodium Chloride 1,000 mls @ 75 mls/hr 10/17/16 00:30 10/21/16 00:30 Normal Saline - IV 75 mls/hr ASDIR MODESTA Administration Piperacillin Sod/Tazobactam Sod 50 mls @ 100 mls/hr 10/18/16 21:45 10/21/16 02: 07 Zosyn 3.375gm Ivpb (Pre-Docked) IVPB 100 mls/hr Q8H-IV MODESTA Administration Protocol Labetalol HCl 200 mg 10/17/16 06:30 10/20/16 09:19 Normodyne - PO Not Given BID MODESTA Metoprolol Tartrate 2.5 mg 10/20/16 09:31 10/20/16 09:53 Lopressor Injection - IVPUSH 2.5 mg Q4H PRN Administration HYPERTENSION Morphine Sulfate 1 mg 10/18/16 18:34 10/19/16 01:18 Morphine Injection - IVPUSH 1 mg Q6H PRN Administration PAIN Ondansetron HCl 8 mg 10/18/16 18:34 10/18/16 18:42 Zofran Injection IVPB 8 mg Q6H PRN Administration NAUSEA AND/OR VOMITING CTA abdomen/pelvis: 1. Patchy right lower lobe consolidation. 2. 3.4 cm distal AAA with extensive atherosclerotic disease involving the distal abdominal aorta , iliac and femoral arteries. 3. Patent mesenteric vasculature with extensive calcified plaque within the proximal SMA. 4. Improved small bowel dilatation since 10/18/2016. 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 5. Clinical correlation and follow-up recommended. Please see above discussion. ORIGINAL REPORT Abdomen: Small bowel obstruction ASSESSMENT/PLAN: 81yom with PMHx of HTN, CHF, CVA, TIA, COPD and HLD who presented to ED on 10/16 with c/o of abd pain,vomiting and belching up of food x 4days and constipation. 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 OR deferred d/t pt on plavix and medical comorbidities. pneumatosis interstinalis: -the family will decide if they want to agree to ex-laparotomy or continue medical management, discussed with a surgeon -NPO -continue NG tube -f/u surgery recommendations, the family believes that the pt shouldn't undergo surgery due to his comorbidities, age and recent use of plavix. They understand the risk and benefits of avoiding surgery -f/u Dr. Mcrae recommendations, he will go for CTA of abdomen to r/o SMA - ringer lactate at 75 ml/hr -continue Zosyn 3.375gm Ivpb Q8h Hypertension/CAD: -hold Lopressor and Norvasc -f/u cardiology recommendations -cardiac monitoring -hold Plavix HDL: -cont Lipitor DVT PPX: -Heparin 5000 u Sq Q8h F/E/N Rl/no changes/NPO Disposition: monitor in ICU, possible surgery tomorrow if the pt and family agrees Problem List - Problems (1) Pneumatosis intestinalis Code(s): K63.89 - OTHER SPECIFIED DISEASES OF INTESTINE (2) SBO (small bowel obstruction) Code(s): K56.69 - OTHER INTESTINAL OBSTRUCTION (3) Abdominal aortic aneurysm (AAA) Code(s): I71.4 - ABDOMINAL AORTIC ANEURYSM, WITHOUT RUPTURE (4) CVA (cerebral infarction) Code(s): I63.9 - CEREBRAL INFARCTION, UNSPECIFIED (5) Chronic obstructive pulmonary disease Code(s): J44.9 - CHRONIC OBSTRUCTIVE PULMONARY DISEASE, UNSPECIFIED (6) HTN (hypertension) Code(s): I10 - ESSENTIAL (PRIMARY) HYPERTENSION Visit type - Emergency Visit Emergency Visit: Yes ED Registration Date: 10/17/16 Care time: The patient presented to the Emergency Department on the above date and was hospitalized for further evaluation of their emergent condition. - New Patient This patient is new to me today: No - Critical Care Critical Care patient: Yes Total Critical Care Time (in minutes): 40 Critical Care Statement: The care of this patient involved high complexity decision making to prevent further life threatening deterioration of the patient 's condition and/or to evalute & treat vital organ system(s) failure or risk of failure.
[2016-10-21] MEDS: METOPROLOL TARTRATE 5 MG/5 ML VIAL IVPUSH PRN ×3 (09:11→20:30)
[2016-10-21] MEDS: ACLIDINIUM BROMIDE 400 MCG/INH AERO.POWD IH SCH ×2 (09:11→21:10)
--- NOTE | 2016-10-21 09:14 | PN ---
Progress Note (short form) - Note Progress Note: Awaiting results of CTA to r/o SMA stenosis. Cont ICU management. Vascular Surgery still following
[2016-10-21] MEDS ORDERED: LACTATED RINGERS SOLUTION 1,000 ML IV SCH (09:30)
--- NOTE | 2016-10-21 11:04 | PN ---
Teaching Attending Note Name of Resident: Kayleigh Ibrahim ATTENDING PHYSICIAN STATEMENT I saw and evaluated the patient. I reviewed the resident's note and discussed the case with the resident. I agree with the resident's findings and plan as documented. SUBJECTIVE: Pt seen and examined in the ICU. Denies abdominal pain, CT A/P showing resolution of pneumatosis but still with evidence of small bowel obstruction. No fevers or chills. OBJECTIVE: Last Vital Signs Temp Pulse Resp BP Pulse Ox 97.2 F L 65 18 171/75 99 10/21/16 10:00 10/21/16 10:05 10/21/16 10:00 10/21/16 10:00 10/21/16 10:05 Intake & Output 10/18/16 10/19/16 10/20/16 10/21/16 23:59 23:59 23:59 23:59 Intake Total 1386 1625 2133.6 650 Output Total 300 1850 1600 400 Balance 1086 -225 533.6 250 Weight 128 lb 12.8 oz 129 lb 3.054 oz 124 lb 4.8 oz Gen: NAD at rest Heart: RRR Lung: decreased breath sounds at the bases Abd: soft, nontender, no BS Ext: no edema CBC, BMP 10/21/16 05:15 10/21/16 05:15 Active Medications Aclidinium [place] (Tudorza -) 1 puff IH BID [facility] [place] Last Admin: 10/21/16 09:11 Dose: 1 puff Amlodipine Besylate (Norvasc -) 5 mg PO DAILY [facility] [place] Last Admin: 10/20/16 09:19 Dose: Not Given Atorvastatin Calcium (Lipitor -) 40 mg PO HS [facility] [place] Last Admin: 10/18/16 21:56 Dose: 40 mg Heparin Sodium (Porcine) (Heparin -) 5,000 unit SQ TID [facility] Last Admin: 10/20/16 21:22 Dose: 5,000 unit Piperacillin Sod/Tazobactam Sod (Zosyn 3.375gm Ivpb (Pre-Docked)) 50 mls @ 100 mls/hr IVPB Q8H-IV MODESTA PRN Reason: Protocol Last Admin: 10/21/16 09:11 Dose: 100 mls/hr Lactated Ringer's (Lactated Ringers Solution) 1,000 mls @ 75 mls/hr IV ASDIR [facility] [place] Last Admin: 10/21/16 09:30 Dose: 75 mls/hr Labetalol HCl (Normodyne -) 200 mg PO BID [facility] [place] Last Admin: 10/20/16 09:19 Dose: Not Given Metoprolol Tartrate (Lopressor Injection -) 2.5 mg IVPUSH Q4H PRN PRN Reason: HYPERTENSION Last Admin: 10/21/16 09:11 Dose: 2.5 mg Morphine Sulfate (Morphine Injection -) 1 mg IVPUSH Q6H PRN PRN Reason: PAIN Last Admin: 10/19/16 01:18 Dose: 1 mg Ondansetron HCl (Zofran Injection) 8 mg IVPB Q6H PRN PRN Reason: NAUSEA AND/OR VOMITING Last Admin: 10/18/16 18:42 Dose: 8 mg ASSESSMENT AND PLAN: Pneumoatosis Intestinalis resolving Small Bowel Obstruction COPD HTN Hyperlipidemia CHF h/o CVA - continue antibiotics - surgery f/u for possible exploration - pain control - incentive spirometry - IVF - NPO - monitor abdominal exam - DVT prophylaxis - continue ICU monitoring for now critical care time spent in reviewing chart, evaluating patient and formulating plan 35 min
--- NOTE | 2016-10-21 11:42 | PN ---
Progress Note (short form) - Note Progress Note: surgery pt seen and examined. feels well. still no pain. ngt 600. no flatus or bm. afebrile abd-soft, nt ct reviewed with Dr. Romero. pneumatosis and portal venous gas resolved but now sbo with transition at a distal ileal enhancing apple core lesion. Recommend moving in direction of laparotomy as pt has not resolved his sbo in 5 days and now there is a suggestion of cancer. Plavix has not been given since Wednesday which makes surgery safter today than three days ago. pt also offered cont medical management with tpn and declines. and daughter present for conversation and agree. signed consent. Pt optimized per critical care. Vascular sx agrees with plan and does not require intervention based on CTA except post op anticoagulation. will plan for exploratory surgery and possible bowel resection/colectomy.
--- NOTE | 2016-10-21 11:49 | PN ---
Progress Note (short form) - Note Progress Note: still with NGT no pain Vital Signs Period Temp Pulse Resp BP Sys/Hernandez Pulse Ox Last 24 Hr 97.0 F-98.3 F 65-85 12-24 131-171/65-91 99-100 cor-rrr lungs clear abd soft,nt ext no edema CBC, BMP 10/21/16 05:15 10/21/16 05:15 imp/reccd SBO pneumotosis coli of small bowel- resolved d/w Surgery- for OR today, unresolved SBO continue zosyn perioperatively Problem List - Problems (1) Pneumatosis intestinalis Code(s): K63.89 - OTHER SPECIFIED DISEASES OF INTESTINE (2) SBO (small bowel obstruction) Code(s): K56.69 - OTHER INTESTINAL OBSTRUCTION
--- NOTE | 2016-10-21 11:54 | PN ---
Progress Note, Physician History of Present Illness: 81 year old man with a history of HTN, HLD, COPD, CVA, AAA admitted with abdominal discomfort and constipation concerning for SBO. Pt seen and examined today in nad. He states that he had multiple small BM's yesterday and overnight. denies any current abd pain. denies chest pain, sob, palpitations. no pnd, orthopnea, or LE edema. NG tube in place. PMH LE angio 02/21/2015 Dr. 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 DCB 08/10/2014 Dr Alcazar PCI LCx 09/20/2014 Dr Alcazar Medical History Reviewed Condition Date Treating Physician Comments Claudication, intermittent HTN Hyperlipidemia TIA/CVA - Current Medication List Current Medications: Active Medications Aclidinium [place] (Tudorza -) 1 puff IH BID [facility] Last Admin: 10/21/16 09:11 Dose: 1 puff Amlodipine Besylate (Norvasc -) 5 mg PO DAILY [facility] Last Admin: 10/20/16 09:19 Dose: Not Given Atorvastatin Calcium (Lipitor -) 40 mg PO HS [facility] Last Admin: 10/18/16 21:56 Dose: 40 mg Heparin Sodium (Porcine) (Heparin -) 5,000 unit SQ TID [facility] Last Admin: 10/20/16 21:22 Dose: 5,000 unit Piperacillin Sod/Tazobactam Sod (Zosyn 3.375gm Ivpb (Pre-Docked)) 50 mls @ 100 mls/hr IVPB Q8H-IV [facility] PRN Reason: Protocol Last Admin: 10/21/16 09:11 Dose: 100 mls/hr Lactated Ringer's (Lactated Ringers Solution) 1,000 mls @ 75 mls/hr IV ASDIR [facility] Last Admin: 10/21/16 09:30 Dose: 75 mls/hr Labetalol HCl (Normodyne -) 200 mg PO BID [facility] Last Admin: 10/20/16 09:19 Dose: Not Given Metoprolol Tartrate (Lopressor Injection -) 2.5 mg IVPUSH Q4H PRN PRN Reason: HYPERTENSION Last Admin: 10/21/16 09:11 Dose: 2.5 mg Morphine Sulfate (Morphine Injection -) 1 mg IVPUSH Q6H PRN PRN Reason: PAIN Last Admin: 10/19/16 01:18 Dose: 1 mg Ondansetron HCl (Zofran Injection) 8 mg IVPB Q6H PRN PRN Reason: NAUSEA AND/OR VOMITING Last Admin: 10/18/16 18:42 Dose: 8 mg - Objective Vital Signs: Vital Signs Temperature 97.2 F L 10/21/16 10:00 Pulse Rate 65 10/21/16 10:05 Respiratory Rate 18 10/21/16 10:00 Blood Pressure 171/75 10/21/16 10:00 O2 Sat by Pulse Oximetry (%) 99 10/21/16 10:05 Eyes: Yes: WNL, Conjunctiva Clear, EOM Intact HENT: Yes: WNL, Atraumatic, Normocephalic Neck: Yes: WNL, Supple, Trachea Midline Cardiovascular: Yes: WNL, Regular Rate and Rhythm Respiratory: Yes: WNL, Regular, CTA Bilaterally Genitourinary: Yes: WNL Musculoskeletal: Yes: WNL Extremities: Yes: WNL Edema: No Integumentary: Yes: WNL Neurological: Yes: WNL, Alert, Oriented ...Motor Strength: WNL Psychiatric: Yes: WNL Labs: CBC, BMP 10/21/16 05:15 10/21/16 05:15 Assessment/Plan 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
--- NOTE | 2016-10-21 12:10 | PN ---
Progress Note, Physician History of Present Illness: Pt. in ICU, was seen and examined, family at bedside. NGT present (on low sucction). Pt. with minimal abd discomfort, not passing gas. Pt. c/o thirst. Pt. w/o N, V. Pt w/o CP, SOB, Palp. - Current Medication List Current Medications: Active Medications Aclidinium [place] (Tudorza -) 1 puff IH BID [facility] Last Admin: 10/21/16 09:11 Dose: 1 puff Amlodipine Besylate (Norvasc -) 5 mg PO DAILY [facility] Last Admin: 10/20/16 09:19 Dose: Not Given Atorvastatin Calcium (Lipitor -) 40 mg PO HS [facility] Last Admin: 10/18/16 21:56 Dose: 40 mg Heparin Sodium (Porcine) (Heparin -) 5,000 unit SQ TID [facility] Last Admin: 10/20/16 21:22 Dose: 5,000 unit Piperacillin Sod/Tazobactam Sod (Zosyn 3.375gm Ivpb (Pre-Docked)) 50 mls @ 100 mls/hr IVPB Q8H-IV [facility] PRN Reason: Protocol Last Admin: 10/21/16 09:11 Dose: 100 mls/hr Lactated Ringer's (Lactated Ringers Solution) 1,000 mls @ 75 mls/hr IV ASDIR [facility] Last Admin: 10/21/16 09:30 Dose: 75 mls/hr Labetalol HCl (Normodyne -) 200 mg PO BID [facility] Last Admin: 10/20/16 09:19 Dose: Not Given Metoprolol Tartrate (Lopressor Injection -) 2.5 mg IVPUSH Q4H PRN PRN Reason: HYPERTENSION Last Admin: 10/21/16 09:11 Dose: 2.5 mg Morphine Sulfate (Morphine Injection -) 1 mg IVPUSH Q6H PRN PRN Reason: PAIN Last Admin: 10/19/16 01:18 Dose: 1 mg Ondansetron HCl (Zofran Injection) 8 mg IVPB Q6H PRN PRN Reason: NAUSEA AND/OR VOMITING Last Admin: 10/18/16 18:42 Dose: 8 mg - Objective Vital Signs: Vital Signs Temperature 97.3 F L 10/21/16 12:00 Pulse Rate 74 10/21/16 12:00 Respiratory Rate 16 10/21/16 12:00 Blood Pressure 173/88 10/21/16 12:00 O2 Sat by Pulse Oximetry (%) 99 10/21/16 10:05 Constitutional: Yes: No Distress, Calm Cardiovascular: Yes: Regular Rate and Rhythm, S1, S2 Respiratory: Yes: Regular, CTA Bilaterally, Other (coarse at bases) Gastrointestinal: Yes: Normal Bowel Sounds, Soft. No: Palpable Mass, Tenderness Edema: No Labs: CBC, BMP 10/21/16 05:15 10/21/16 05:15 - ....Imaging Cat Scan: Report Reviewed Problem List - Problems (1) Small bowel mass Assessment/Plan: noticed on the latest CY scan. Pt is for OR today. Code(s): K63.89 - OTHER SPECIFIED DISEASES OF INTESTINE (2) SBO (small bowel obstruction) Code(s): K56.69 - OTHER INTESTINAL OBSTRUCTION (3) Pneumatosis intestinalis Assessment/Plan: resolved Code(s): K63.89 - OTHER SPECIFIED DISEASES OF INTESTINE (4) CHF (congestive heart failure) Code(s): I50.9 - HEART FAILURE, UNSPECIFIED (5) CVA (cerebral infarction) Code(s): I63.9 - CEREBRAL INFARCTION, UNSPECIFIED (6) Chronic obstructive pulmonary disease Code(s): J44.9 - CHRONIC OBSTRUCTIVE PULMONARY DISEASE, UNSPECIFIED (7) Hyperlipidemia Code(s): E78.5 - HYPERLIPIDEMIA, UNSPECIFIED Assessment/Plan GI and surgical f/u appreciated NPO for now NGT to low suction. Pt. for OR today. Case was d/w Dr. Carranza at bedside. Pt. wants his to make medical decisions if he cannot; both daughter agrees with pt. All family's questions were answered To continue Metorolol IVP. To increase IVF for now in an attempt to help with pt.'s thirst. Pt. is hemodynamically stable. AM labs Prognosis: reserved Case was d/w pt.'s ICU nurse Time spent for managing pt.'s care: over 45 minutes
[2016-10-21] MEDS ORDERED: ROCURONIUM BROMIDE 50 MG/5 ML VIAL ONE (12:41)
[2016-10-21] MEDS ORDERED: PROPOFOL 20 ML ONE (12:41)
[2016-10-21] MEDS ORDERED: NEOSTIGMINE METHYLSULFATE 0.5 MG/ML - 10 ML MDV ONE (13:43)
[2016-10-21] MEDS ORDERED: GLYCOPYRROLATE 0.2 MG/1 ML VIAL ONE (13:44)
[2016-10-21] MEDS ORDERED: METOPROLOL TARTRATE 5 MG/5 ML VIAL ONE (13:44)
--- NOTE | 2016-10-21 13:52 | OP ---
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
[2016-10-21] MEDS ORDERED: oxyCODONE HCL 5 MG TABLET PO PRN (13:55)
[2016-10-21] MEDS: HEPARIN NA (PORCINE) 5,000 UNITS/ML 1ML VIAL SQ SCH ×2 (14:30→21:11)
[2016-10-21] MEDS ORDERED: morphine CARPU-JECT 4 MG/1 ML DISP.SYRIN ONE (14:40)
[2016-10-21] MEDS: morphine CARPU-JECT 4 MG/1 ML DISP.SYRIN IVPB PRN ×3 (14:48→20:40)
[2016-10-21] MEDS: LACTATED RINGERS SOLUTION 1,000 ML IV SCH (15:15)
[2016-10-21] MEDS ORDERED: PIPERACILLIN/TAZOB 3.375 GM 50 ML IVPB ONE (16:56)
[2016-10-21] MEDS: LABETALOL HCL 200 MG TABLET (FP) PO SCH (21:10)
[2016-10-21] MEDS: ATORVASTATIN CA 40 MG TABLET (FP) PO SCH (21:10)
--- NOTE | 2016-10-22 00:06 | OP ---
DATE OF OPERATION: 10/21/2016 PREOPERATIVE DIAGNOSIS: Small bowel obstruction, small bowel tumor. POSTOPERATIVE DIAGNOSIS: Small bowel obstruction, small bowel tumor. PROCEDURE: Exploratory laparotomy, small bowel resection, lavage. ATTENDING SURGEON: Abimael Carranza D.O. EMT/PARAMEDIC: Lemuel Tinsley M.D. ANESTHESIOLOGIST: Precious Beard M.D. (general) SPECIMEN: A portion of mid ileum with small bowel tumor. BLOOD LOSS: Minimal. COMPLICATIONS: None. DISPOSITION: To recovery room in stable condition. DRAINS: None. BRIEF HISTORY: This is an 81-year-old male who presented to [facility] with initial signs and symptoms of partial bowel obstruction. He then developed repeat CAT scan, findings of pneumatosis and portal venous gas. He was on Plavix but did not appear to be toxic and was treated conservatively for several days while his Plavix improved. Repeat CAT scan suggested a small bowel tumor still with a present small bowel obstruction. However, the portal venous gas and the pneumatosis had resolved. Vascular consultation was done. 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 DESCRIPTION OF PROCEDURE: The patient was placed in supine position. General anesthesia was administered. The abdomen was prepped and draped in sterile fashion. Chavarria catheter was inserted. The patient was already on Zosyn antibiotic. Next a vertical incision was made approximately 5 inches in length above and below the umbilicus. The scalpel was used to go through skin, subcutaneous tissue. The fascia was then opened in the midline. The peritoneum was entered sharply. Next, the small bowel was run. There was no ascites noted. There was no obvious evidence of carcinomatosis. There was a section of mid ileum with a white hard tumor which was the source of the bowel obstruction. The bowel was run from proximal to distal and distal to proximal from the ligament of Treitz all the way to the terminal ileum. There is no other abnormality noted. At this point, decision was made to do a small bowel resection from 6 inches proximal and distal into the tumor. A side-to- side anastomosis was done with a TERI blue load stapler, and a TA blue load stapler was used to close the enterotomy. The mesenteric defect was closed with running chromic. The mesentery was divided using silk ties. At this point, a vigorous lavage was done, all return was clear, the anastomosis was inspected. It was intact. There was no bleeding, no sign of ischemia. It was felt to be patent based on visual inspection, palpation, and passage of from proximal to distal and distal to proximal. Next, the omentum was placed in its proper location. The midline was closed with a running Prolene number 1 suture. The wound was irrigated and skin was closed with tiffanie and Dermabond. Overall, the patient tolerated the procedure well with no complications. Blood loss was minimal. The patient's disposition was to the recovery room and to the intensive care unit where he came from. DO VALORIE AGUDELO/[id number] MTDD
[2016-10-22] MEDS: PIPERACILLIN/TAZOB 3.375 GM 50 ML IVPB SCH (01:08)
[2016-10-22] MEDS: METOPROLOL TARTRATE 5 MG/5 ML VIAL IVPUSH PRN ×3 (05:16→17:12)
[2016-10-22] MEDS: LACTATED RINGERS SOLUTION 1,000 ML IV SCH (06:25)
[2016-10-22] MEDS: HEPARIN NA (PORCINE) 5,000 UNITS/ML 1ML VIAL SQ SCH ×3 (06:25→21:09)
[2016-10-22 06:41] LABS: MCH 27.5 pg (25.7-33.7); MCHC 32.8 g/dl (32.0-35.9); MEAN CELL VOLUME 83.7 fl (80-96); MEAN PLT VOLUME 7.3 fl (7.5-11.1); PLATELET COUNT 326 K/MM3 (134-434); RDW 13.9 % (11.9-15.9); WHITE BLOOD COUNT 15.7 K/mm3 (4.0-10.0)
[2016-10-22 07:18] LABS: ALBUMIN 2.8 g/dl (3.4-5.0); ANION GAP 11 (8-16); CALCIUM 9.6 mg/dL (8.5-10.1); CO2 31 mmol/L (21-32); GLUCOSE,RANDOM 149 mg/dL (74-106); MAGNESIUM 2.2 mg/dL (1.8-2.4); PHOSPHOROUS 2.3 mg/dL (2.5-4.9)
[2016-10-22 07:21] LABS: ALK PHOS 86 U/L (45-117); BILIRUBIN,TOTAL 2.3 mg/dL (0.2-1.0); COCKROFT - GAULT 92.25; CREATININE 0.5 mg/dL (0.7-1.3); SGOT/AST 25 U/L (15-37); SGPT/ALT 19 U/L (12-78); TOT PROT 6.2 g/dl (6.4-8.2)
--- NOTE | 2016-10-22 09:33 | PN ---
Progress Note (short form) - Note Progress Note: surgery pt seen and examined. feels well. no flatus. no pain. afebrile abd- soft, minimal tenderness, incision clean u/o not available since yesterday in computer. pt is voiding. ngt minimal Laboratory Tests 10/20/16 10/22/16 10/22/16 05:15 05:45 05:45 WBC 9.5 D 15.7 H D Hgb 15.2 Plt Count 326 Potassium 3.4 L Phosphorus 2.3 L A/P 1) Pod#1- d/c ngt. cont npo for several days. may need to increase ivf as blood appears slightly hemoconcentrated. 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
[2016-10-22] MEDS ORDERED: LACTATED RINGERS SOLUTION 1,000 ML IV SCH (09:35)
[2016-10-22] MEDS: morphine CARPU-JECT 4 MG/1 ML DISP.SYRIN IVPB PRN ×3 (09:55→21:08)
[2016-10-22] MEDS: PANTOPRAZOLE SODIUM 100 ML IVPB SCH (09:56)
[2016-10-22] MEDS: amLODIPine BESYLATE 5 MG TABLET (FP) PO SCH (09:57)
[2016-10-22] MEDS: KCL 10 MEQ IVPB 100 ML IVPB SCH ×4 (09:59→13:42)
[2016-10-22] MEDS: ACLIDINIUM BROMIDE 400 MCG/INH AERO.POWD IH SCH ×2 (09:59→21:31)
--- NOTE | 2016-10-22 09:59 | PN ---
Progress Note, Physician History of Present Illness: Pt. in ICU, was seen and examined. Post op day1 NGT was removed ( by surgeon) this AM Pt. with minimal abd discomfort. Pt. c/o thirst. Pt. w/o N, V. Pt w/o CP, SOB, Palp. - Current Medication List Current Medications: Active Medications Aclidinium [place] (Tudorza -) 1 puff IH BID [facility] Last Admin: 10/21/16 21:10 Dose: 1 puff Amlodipine Besylate (Norvasc -) 5 mg PO DAILY [facility] Atorvastatin Calcium (Lipitor -) 40 mg PO HS [facility] Last Admin: 10/21/16 21:10 Dose: Not Given Heparin Sodium (Porcine) (Heparin -) 5,000 unit SQ TID [facility] Last Admin: 10/22/16 06:25 Dose: 5,000 unit Pantoprazole Sodium (Protonix 40mg Ivpb (Pre-Docked)) 100 mls @ 200 mls/hr IVPB DAILY [facility] Lactated Ringer's (Lactated Ringers Solution) 1,000 mls @ 110 mls/hr IV ASDIR [facility] Potassium Phosphate 27 mm/ (Dextrose) 259 mls @ 62.5 mls/hr IVPB ONCE ONE Stop: 10/22/16 15:08 Potassium Chloride (Potassium Chloride 10 Meq Premix Ivpb -) 100 mls @ 100 mls/ hr IVPB Q60M [facility] Stop: 10/22/16 13:29 Labetalol HCl (Normodyne -) 200 mg PO BID [facility] Last Admin: 10/21/16 21:10 Dose: Not Given Metoprolol Tartrate (Lopressor Injection -) 2.5 mg IVPUSH Q4H PRN PRN Reason: HYPERTENSION Last Admin: 10/22/16 05:16 Dose: 2.5 mg Morphine Sulfate (Morphine Injection -) 4 mg IVPB Q3H PRN PRN Reason: MODERATE PAIN Last Admin: 10/21/16 20:40 Dose: 4 mg Ondansetron HCl (Zofran Injection) 8 mg IVPB Q6H PRN PRN Reason: NAUSEA AND/OR VOMITING Oxycodone HCl (Roxicodone -) 7.5 mg PO Q4H PRN PRN Reason: PAIN - Objective Vital Signs: Vital Signs Temperature 98.6 F 10/22/16 06:00 Pulse Rate 84 10/22/16 08:00 Respiratory Rate 20 10/22/16 08:00 Blood Pressure 116/96 10/22/16 08:00 O2 Sat by Pulse Oximetry (%) 100 10/21/16 21:00 Constitutional: Yes: No Distress, Calm Cardiovascular: Yes: Regular Rate and Rhythm, S1, S2 Respiratory: Yes: Regular, CTA Bilaterally, Other (coarse BS) Gastrointestinal: Yes: Normal Bowel Sounds, Soft, Tenderness (minimal, with palpatin). No: Tenderness, Rebound Edema: No Neurological: Yes: Alert, Oriented Labs: CBC, BMP 10/22/16 05:45 10/22/16 05:45 Problem List - Problems (1) Small bowel mass Code(s): K63.89 - OTHER SPECIFIED DISEASES OF INTESTINE (2) SBO (small bowel obstruction) Code(s): K56.69 - OTHER INTESTINAL OBSTRUCTION (3) Pneumatosis intestinalis Code(s): K63.89 - OTHER SPECIFIED DISEASES OF INTESTINE (4) CHF (congestive heart failure) Code(s): I50.9 - HEART FAILURE, UNSPECIFIED (5) CVA (cerebral infarction) Code(s): I63.9 - CEREBRAL INFARCTION, UNSPECIFIED (6) Chronic obstructive pulmonary disease Code(s): J44.9 - CHRONIC OBSTRUCTIVE PULMONARY DISEASE, UNSPECIFIED (7) Hyperlipidemia Code(s): E78.5 - HYPERLIPIDEMIA, UNSPECIFIED (8) Hypokalemia due to inadequate potassium intake Code(s): E87.6 - HYPOKALEMIA (9) Hypophosphatemia Code(s): E83.39 - OTHER DISORDERS OF PHOSPHORUS METABOLISM Assessment/Plan GI and surgical f/u appreciated NPO for now s/p NGT- removed this AM Pt. wants his to make medical decisions if he cannot; both daughter agrees with pt. All family's questions were answered To continue Metorolol IVP. Pt. is hemodynamically stable. To replete K and PH. AM labs Prognosis: reserved Case was d/w pt.'s ICU nurse Time spent for managing pt.'s care: over 35 minutes
--- NOTE | 2016-10-22 10:13 | PN ---
Progress Note (short form) - Note Progress Note: Post op day#1.S/P Exploratory lapratomy with small bowel resection uner GA uneventful.P78,Spo2 98% on O2 3L and BP 153/90.Patient stable.No any anesthesia related problem.Patient DC from the anesthesia care.
[2016-10-22] MEDS ORDERED: POTASSIUM PHOSPHATE 27 MM in DEXTROSE 5%-WATER - 250 ML IVPB ONE (11:00)
[2016-10-22] MEDS ORDERED: POTASSIUM PHOSPHATE 30 MM in DEXTROSE 5%-WATER - 250 ML IVPB ONE (11:00)
--- NOTE | 2016-10-22 11:40 | PN ---
Progress Note, Physician History of Present Illness: 81 year old man with a history of HTN, HLD, COPD, CVA, AAA admitted with abdominal discomfort and constipation concerning for SBO. Pt seen and examined today in nad. He states that he had multiple small BM's yesterday and overnight. denies any current abd pain. denies chest pain, sob, palpitations. no pnd, orthopnea, or LE edema. NG tube in place. PMH LE angio 02/21/2015 Dr. 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 Dr Alcazar PCI LCx 09/20/2014 Dr Alcazar Medical History Reviewed Condition Date Treating Physician Comments Claudication, intermittent HTN Hyperlipidemia TIA/CVA - Current Medication List Current Medications: Active Medications Aclidinium [place] (Tudorza -) 1 puff IH BID [facility] Last Admin: 10/22/16 09:59 Dose: 1 puff Amlodipine Besylate (Norvasc -) 5 mg PO DAILY [facility] Last Admin: 10/22/16 09:57 Dose: Not Given Atorvastatin Calcium (Lipitor -) 40 mg PO HS [facility] Last Admin: 10/21/16 21:10 Dose: Not Given Heparin Sodium (Porcine) (Heparin -) 5,000 unit SQ TID [facility] Last Admin: 10/22/16 06:25 Dose: 5,000 unit Pantoprazole Sodium (Protonix 40mg Ivpb (Pre-Docked)) 100 mls @ 200 mls/hr IVPB DAILY [facility] Last Admin: 10/22/16 09:56 Dose: 200 mls/hr Lactated Ringer's (Lactated Ringers Solution) 1,000 mls @ 110 mls/hr IV ASDIR [facility] Last Admin: 10/22/16 09:56 Dose: 110 mls/hr Potassium Chloride (Potassium Chloride 10 Meq Premix Ivpb -) 100 mls @ 100 mls/ hr IVPB Q60M [facility] Stop: 10/22/16 13:29 Last Admin: 10/22/16 11:28 Dose: 100 mls/hr Potassium Phosphate 30 mm/ (Dextrose) 260 mls @ 65 mls/hr IVPB ONCE ONE PRN Reason: 30 MM/4 HR Stop: 10/22/16 14:59 Labetalol HCl (Normodyne -) 200 mg PO BID [facility] Last Admin: 10/21/16 21:10 Dose: Not Given Metoprolol Tartrate (Lopressor Injection -) 2.5 mg IVPUSH Q4H PRN PRN Reason: HYPERTENSION Last Admin: 10/22/16 09:55 Dose: 2.5 mg Morphine Sulfate (Morphine Injection -) 4 mg IVPB Q3H PRN PRN Reason: MODERATE PAIN Last Admin: 10/22/16 09:55 Dose: 4 mg Ondansetron HCl (Zofran Injection) 8 mg IVPB Q6H PRN PRN Reason: NAUSEA AND/OR VOMITING Oxycodone HCl (Roxicodone -) 7.5 mg PO Q4H PRN PRN Reason: PAIN - Objective Vital Signs: Vital Signs Temperature 98.7 F 10/22/16 10:00 Pulse Rate 86 10/22/16 10:00 Respiratory Rate 20 10/22/16 10:00 Blood Pressure 183/90 10/22/16 10:00 O2 Sat by Pulse Oximetry (%) 100 10/21/16 21:00 Eyes: Yes: WNL, Conjunctiva Clear, EOM Intact HENT: Yes: WNL, Atraumatic, Normocephalic Neck: Yes: WNL, Supple, Trachea Midline Cardiovascular: Yes: WNL, Regular Rate and Rhythm Respiratory: Yes: WNL, Regular, CTA Bilaterally Gastrointestinal: Yes: WNL, Normal Bowel Sounds Genitourinary: Yes: WNL Musculoskeletal: Yes: WNL Extremities: Yes: WNL Edema: No Integumentary: Yes: WNL Neurological: Yes: WNL, Alert, Oriented ...Motor Strength: WNL Psychiatric: Yes: WNL Labs: CBC, BMP 10/22/16 05:45 10/22/16 05:45 Assessment/Plan POD #1 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
--- NOTE | 2016-10-22 11:42 | PN ---
Teaching Attending Note Name of Resident: Kayleigh Ibrahim ATTENDING PHYSICIAN STATEMENT I saw and evaluated the patient. I reviewed the resident's note and discussed the case with the resident. I agree with the resident's findings and plan as documented. SUBJECTIVE: Pt seen and examined in the ICU. s/p exploratory laparotomy, found to have a small bowel tumor s/p resection. No reported complications. OBJECTIVE: Last Vital Signs Temp Pulse Resp BP Pulse Ox 98.7 F 86 20 183/90 100 10/22/16 10:00 10/22/16 10:00 10/22/16 10:00 10/22/16 10:00 10/21/16 21:00 Intake & Output 10/19/16 10/20/16 10/21/16 10/22/16 23:59 23:59 23:59 23:59 Intake Total 1625 2133.6 2250 875 Output Total 1850 1600 945 100 Balance -225 533.6 1305 775 Weight 128 lb 12.8 oz 129 lb 3.054 oz 124 lb 4.8 oz 124 lb 1.6 oz Gen: confused Heart: RRR Lung: decreased breath sounds at the bases Abd: soft, nontender Ext: no edema CBC, BMP 10/22/16 05:45 10/22/16 05:45 Active Medications Aclidinium [place] (Tudorza -) 1 puff IH BID [facility] Last Admin: 10/22/16 09:59 Dose: 1 puff Amlodipine Besylate (Norvasc -) 5 mg PO DAILY [facility] Last Admin: 10/22/16 09:57 Dose: Not Given Atorvastatin Calcium (Lipitor -) 40 mg PO HS [facility] Last Admin: 10/21/16 21:10 Dose: Not Given Heparin Sodium (Porcine) (Heparin -) 5,000 unit SQ TID [facility] Last Admin: 10/22/16 06:25 Dose: 5,000 unit Pantoprazole Sodium (Protonix 40mg Ivpb (Pre-Docked)) 100 mls @ 200 mls/hr IVPB DAILY [facility] Last Admin: 10/22/16 09:56 Dose: 200 mls/hr Lactated Ringer's (Lactated Ringers Solution) 1,000 mls @ 110 mls/hr IV ASDIR [facility] Last Admin: 10/22/16 09:56 Dose: 110 mls/hr Potassium Chloride (Potassium Chloride 10 Meq Premix Ivpb -) 100 mls @ 100 mls/ hr IVPB Q60M [facility] Stop: 10/22/16 13:29 Last Admin: 10/22/16 11:28 Dose: 100 mls/hr Potassium Phosphate 30 mm/ (Dextrose) 260 mls @ 65 mls/hr IVPB ONCE ONE PRN Reason: 30 MM/4 HR Stop: 10/22/16 14:59 Labetalol HCl (Normodyne -) 200 mg PO BID [facility] Last Admin: 10/21/16 21:10 Dose: Not Given Metoprolol Tartrate (Lopressor Injection -) 2.5 mg IVPUSH Q4H PRN PRN Reason: HYPERTENSION Last Admin: 10/22/16 09:55 Dose: 2.5 mg Morphine Sulfate (Morphine Injection -) 4 mg IVPB Q3H PRN PRN Reason: MODERATE PAIN Last Admin: 10/22/16 09:55 Dose: 4 mg Ondansetron HCl (Zofran Injection) 8 mg IVPB Q6H PRN PRN Reason: NAUSEA AND/OR VOMITING Oxycodone HCl (Roxicodone -) 7.5 mg PO Q4H PRN PRN Reason: PAIN ASSESSMENT AND PLAN: Pneumoatosis Intestinalis resolved Small Bowel Obstruction from Tumor s/p ex-lap/SB resection COPD HTN Hyperlipidemia CHF h/o CVA - f/u pathology - s/p empiric antibiotics - pain control - incentive spirometry - IVF, start clinimix - NPO - await return of bowel function - DVT prophylaxis - continue ICU monitoring for now critical care time spent in reviewing chart, evaluating patient and formulating plan 35 min
[2016-10-22] MEDS: hydrALAZINE HCL 20 MG/ML VIAL IVPUSH PRN ×2 (12:41→21:09)
--- NOTE | 2016-10-22 13:00 | PN ---
Physical Exam: SUBJECTIVE: Patient seen and examined in ICU. He doesn't have any complaints today. No overnight events. OBJECTIVE: Vital Signs Period Temp Pulse Resp BP Sys/Hernandez Pulse Ox Last 24 Hr 96.8 F-98.9 F 71-120 8-26 116-201/78-110 99-100 GENERAL: The patient is awake, alert, and fully oriented, in no acute distress. HEAD: Normal with no signs of trauma. EYES: extraocular movements intact, sclera anicteric, conjunctiva clear, NG tube draining brown fluid. ENT: oropharynx clear without exudates, moist mucous membranes. NECK: Trachea midline, full range of motion, supple. LUNGS: clear to auscultation bilaterally, no wheezes, no crackles, no accessory muscle use. HEART: Regular rate and rhythm, S1, S2 without murmur, rub or gallop. ABDOMEN: Soft, nondistended, hypoactive bowel sounds, tenderness and guarding, longitudinal scar in mid abdomen, well healing, no drainage, erythema. EXTREMITIES: warm, well-perfused, no edema. NEUROLOGICAL: No facial asymmetry, normal speech, gait not observed. PSYCH: Normal mood, normal affect. SKIN: Warm, dry, normal turgor, no rashes. Laboratory Results - last 24 hr 10/22/16 10/22/16 05:45 05:45 WBC 15.7 H D RBC 5.54 Hgb 15.2 Hct 46.4 MCV 83.7 MCHC 32.8 RDW 13.9 Plt Count 326 MPV 7.3 L Sodium 142 Potassium 3.4 L Chloride 100 Carbon Dioxide 31 Anion Gap 11 BUN 13 Creatinine 0.5 L Creat Clearance w eGFR > 60 Random Glucose 149 H D Calcium 9.6 Phosphorus 2.3 L Magnesium 2.2 Total Bilirubin 2.3 H AST 25 ALT 19 Alkaline Phosphatase 86 Total Protein 6.2 L Albumin 2.8 L Active Medications Generic Name Dose Route Start Last Admin Trade Name Freq PRN Reason Stop Dose Admin Aclidinium [place] 1 puff 10/21/16 22:00 10/22/16 09:59 Tudorza - IH 1 puff BID [facility] Administration Amlodipine Besylate 5 mg 10/22/16 10:00 10/22/16 09:57 Norvasc - PO Not Given DAILY [facility] Atorvastatin Calcium 40 mg 10/21/16 22:00 10/21/16 21:10 Lipitor - PO Not Given HS [facility] Heparin Sodium (Porcine) 5,000 unit 10/21/16 22:00 10/22/16 06:25 Heparin - SQ 5,000 unit TID [facility] Administration Hydralazine HCl 10 mg 10/22/16 12:17 10/22/16 12:41 Apresoline Injection - IVPUSH 10 mg Q8H PRN Administration HYPERTENSION Pantoprazole Sodium 100 mls @ 200 mls/hr 10/22/16 10:00 10/22/16 09:56 Protonix 40mg Ivpb (Pre-Docked) IVPB 200 mls/hr DAILY [facility] Administration Lactated Ringer's 1,000 mls @ 110 mls/hr 10/22/16 09:35 10/22/16 09:56 Lactated Ringers Solution IV 110 mls/hr ASDIR [facility] Administration Potassium Chloride 100 mls @ 100 mls/hr 10/22/16 10:30 10/22/16 12:41 Potassium Chloride 10 Meq Premix Ivpb - IVPB 10/22/16 13:29 100 mls/hr Q60M [facility] Administration Potassium Phosphate 30 mm/ 260 mls @ 65 mls/hr 10/22/16 11:00 10/22/16 12:41 Dextrose IVPB 10/22/16 14:59 65 mls/hr ONCE ONE Administration 30 MM/4 HR Labetalol HCl 200 mg 10/21/16 22:00 10/21/16 21:10 Normodyne - PO Not Given BID [facility] Metoprolol Tartrate 2.5 mg 10/21/16 15:14 10/22/16 09:55 Lopressor Injection - IVPUSH 2.5 mg Q4H PRN Administration HYPERTENSION Morphine Sulfate 4 mg 10/21/16 13:55 10/22/16 09:55 Morphine Injection - IVPB 4 mg Q3H PRN Administration MODERATE PAIN Ondansetron HCl 8 mg 10/21/16 15:14 Zofran Injection IVPB Q6H PRN NAUSEA AND/OR VOMITING Oxycodone HCl 7.5 mg 10/21/16 13:55 Roxicodone - PO Q4H PRN PAIN CTA abdomen/pelvis: 1. Patchy right lower lobe consolidation. 2. 3.4 cm distal AAA with extensive atherosclerotic disease involving the distal abdominal aorta , iliac and femoral arteries. 3. Patent mesenteric vasculature with extensive calcified plaque within the proximal SMA. 4. Improved small bowel dilatation since 10/18/2016. 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 5. Clinical correlation and follow-up recommended. Please see above discussion. ORIGINAL REPORT Abdomen: Small bowel obstruction ASSESSMENT/PLAN: 81yom with PMHx of HTN, CHF, CVA, TIA, COPD and HLD who presented to ED on 10/16 with c/o of abd pain,vomiting and belching up of food x 4days and constipation. 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 OR deferred d/t pt on plavix and medical comorbidities. pneumatosis interstinalis: -he was operated yesterday, ex-laparotomy, tumor in small bowel removed and sent for pathology -NG tube removed, NPO -f/u surgery recommendations - ringer lactate at 75 ml/hr -continue Zosyn 3.375gm Ivpb Q8h -continue Morphine for pain control Hypertension/CAD: -cont Lopressor -started Hydralazine 10 mg IV TID -held PO meds -f/u cardiology recommendations -cardiac monitoring -hold Plavix Hypophosphatemia and hypokalemia: -repleated, will monitor HDL: -hold PO meds DVT PPX: cont heparin SQ F/E/N Rl/no changes/NPO added Clinimix with lipids and MVI Disposition: monitor in ICU, possible surgery tomorrow if the pt and family agrees Problem List - Problems (1) Pneumatosis intestinalis Code(s): K63.89 - OTHER SPECIFIED DISEASES OF INTESTINE (2) SBO (small bowel obstruction) Code(s): K56.69 - OTHER INTESTINAL OBSTRUCTION (3) Abdominal aortic aneurysm (AAA) Code(s): I71.4 - ABDOMINAL AORTIC ANEURYSM, WITHOUT RUPTURE (4) CVA (cerebral infarction) Code(s): I63.9 - CEREBRAL INFARCTION, UNSPECIFIED (5) Chronic obstructive pulmonary disease Code(s): J44.9 - CHRONIC OBSTRUCTIVE PULMONARY DISEASE, UNSPECIFIED (6) HTN (hypertension) Code(s): I10 - ESSENTIAL (PRIMARY) HYPERTENSION Visit type - Emergency Visit Emergency Visit: Yes ED Registration Date: 10/17/16 Care time: The patient presented to the Emergency Department on the above date and was hospitalized for further evaluation of their emergent condition. - New Patient This patient is new to me today: No - Critical Care Critical Care patient: Yes Total Critical Care Time (in minutes): 45 Critical Care Statement: The care of this patient involved high complexity decision making to prevent further life threatening deterioration of the patient 's condition and/or to evalute & treat vital organ system(s) failure or risk of failure.
[2016-10-22] MEDS ORDERED: [UNRECOGNIZED DRUG - OTHER] IV SCH (15:30)
[2016-10-22] MEDS ORDERED: MULTIVIT IV SCH (15:30)
[2016-10-22] MEDS ORDERED: AMINO ACIDS IV SCH (15:30)
[2016-10-22] MEDS ORDERED: AMINO ACIDS 4.25%/D5W 1,000 ML IV SCH (17:45)
[2016-10-22] MEDS: MULTIVIT INJ. ADULT COMBO WITH VIT K 1 COMBO 10 ML VIAL IV SCH (18:18)
[2016-10-22] MEDS: FAT EMULSIONS 20% 250 ML PREMIX INFUS.BAG IV SCH (21:29)
[2016-10-23] MEDS: ONDANSETRON 4 MG/2 ML VIAL IVPB PRN ×3 (01:30→17:43)
[2016-10-23] MEDS: HEPARIN NA (PORCINE) 5,000 UNITS/ML 1ML VIAL SQ SCH ×3 (06:11→21:40)
[2016-10-23 06:37] LABS: MCH 27.6 pg (25.7-33.7); MEAN CELL VOLUME 83.6 fl (80-96); MEAN PLT VOLUME 7.5 fl (7.5-11.1); PLATELET COUNT 299 K/MM3 (134-434); RDW 13.9 % (11.9-15.9); WHITE BLOOD COUNT 14.5 K/mm3 (4.0-10.0)
[2016-10-23 06:59] LABS: ALBUMIN 2.7 g/dl (3.4-5.0); ANION GAP 10 (8-16); CALCIUM 9.3 mg/dL (8.5-10.1); CO2 30 mmol/L (21-32); GLUCOSE,RANDOM 128 mg/dL (74-106); MAGNESIUM 2.2 mg/dL (1.8-2.4)
[2016-10-23 07:04] LABS: ALK PHOS 80 U/L (45-117); CREATININE 0.6 mg/dL (0.7-1.3); PHOSPHOROUS 1.4 mg/dL (2.5-4.9); SGOT/AST 29 U/L (15-37); SGPT/ALT 21 U/L (12-78); TOT PROT 5.8 g/dl (6.4-8.2)
[2016-10-23] MEDS: hydrALAZINE HCL 20 MG/ML VIAL IVPUSH PRN (08:23)
[2016-10-23] MEDS: morphine CARPU-JECT 4 MG/1 ML DISP.SYRIN IVPB PRN ×2 (08:29→17:43)
[2016-10-23] MEDS: PANTOPRAZOLE SODIUM 100 ML IVPB SCH (09:06)
[2016-10-23] MEDS: ACLIDINIUM BROMIDE 400 MCG/INH AERO.POWD IH SCH ×2 (09:07→21:43)
--- NOTE | 2016-10-23 09:26 | PN ---
Progress Note, Physician History of Present Illness: Pt. in ICU, was seen and examined. Post op day 2 NGT was removed ( by surgeon) yesterday Pt. with minimal abd discomfort. Pt. c/o thirst, cough with clear sputum. Pt. w/o N, V. Pt w/o CP, SOB, Palp. - Current Medication List Current Medications: Active Medications Aclidinium [place] (Tudorza -) 1 puff IH BID [facility] Last Admin: 10/23/16 09:07 Dose: 1 puff Amlodipine Besylate (Norvasc -) 5 mg PO DAILY [facility] Last Admin: 10/22/16 09:57 Dose: Not Given Atorvastatin Calcium (Lipitor -) 40 mg PO HS [facility] Last Admin: 10/21/16 21:10 Dose: Not Given Fat Emulsion Intravenous (Intralipid -) 250 ml IV DAILY@2200 [facility] Last Admin: 10/22/16 21:29 Dose: 250 ml Heparin Sodium (Porcine) (Heparin -) 5,000 unit SQ TID [facility] Last Admin: 10/23/16 06:11 Dose: 5,000 unit Hydralazine HCl (Apresoline Injection -) 10 mg IVPUSH Q8H [facility] Pantoprazole Sodium (Protonix 40mg Ivpb (Pre-Docked)) 100 mls @ 200 mls/hr IVPB DAILY [facility] Last Admin: 10/23/16 09:06 Dose: 200 mls/hr Amino Acids (Clinimix -) 1,000 mls @ 42 mls/hr IV Q24H [facility] Last Admin: 10/22/16 18:19 Dose: 42 mls/hr Labetalol HCl (Normodyne -) 200 mg PO BID [facility] Last Admin: 10/21/16 21:10 Dose: Not Given Metoprolol Tartrate (Lopressor Injection -) 2.5 mg IVPUSH Q4H PRN PRN Reason: HYPERTENSION Last Admin: 10/22/16 17:12 Dose: 2.5 mg Morphine Sulfate (Morphine Injection -) 4 mg IVPB Q3H PRN PRN Reason: MODERATE PAIN Last Admin: 10/23/16 08:29 Dose: 4 mg Multivitamins/Minerals (Infuvite Adult -) 10 ml IV Q24H [facility] Last Admin: 10/22/16 18:18 Dose: 10 ml Ondansetron HCl (Zofran Injection) 8 mg IVPB Q6H PRN PRN Reason: NAUSEA AND/OR VOMITING Last Admin: 10/23/16 01:30 Dose: 8 mg Oxycodone HCl (Roxicodone -) 7.5 mg PO Q4H PRN PRN Reason: PAIN - Objective Vital Signs: Vital Signs Temperature 99.5 F 10/23/16 04:00 Pulse Rate 100 H 10/23/16 08:00 Respiratory Rate 17 10/23/16 08:00 Blood Pressure 192/92 10/23/16 08:00 O2 Sat by Pulse Oximetry (%) 97 10/22/16 19:43 Constitutional: Yes: No Distress, Calm Cardiovascular: Yes: Regular Rate and Rhythm, S1, S2 Respiratory: Yes: Regular, Other (coarse at bases). No: Rales Gastrointestinal: Yes: Normal Bowel Sounds, Soft, Tenderness (mild with palpations). No: Tenderness, Rebound Edema: No Labs: CBC, BMP 10/23/16 05:10 10/23/16 05:10 Problem List - Problems (1) Small bowel mass Assessment/Plan: noticed on the latest CT scan. s/p resection Code(s): K63.89 - OTHER SPECIFIED DISEASES OF INTESTINE (2) SBO (small bowel obstruction) Code(s): K56.69 - OTHER INTESTINAL OBSTRUCTION (3) Pneumatosis intestinalis Code(s): K63.89 - OTHER SPECIFIED DISEASES OF INTESTINE (4) CHF (congestive heart failure) Code(s): I50.9 - HEART FAILURE, UNSPECIFIED (5) CVA (cerebral infarction) Code(s): I63.9 - CEREBRAL INFARCTION, UNSPECIFIED (6) Chronic obstructive pulmonary disease Code(s): J44.9 - CHRONIC OBSTRUCTIVE PULMONARY DISEASE, UNSPECIFIED (7) Hyperlipidemia Code(s): E78.5 - HYPERLIPIDEMIA, UNSPECIFIED (8) Hypokalemia due to inadequate potassium intake Code(s): E87.6 - HYPOKALEMIA (9) Hypophosphatemia Assessment/Plan: to replete Code(s): E83.39 - OTHER DISORDERS OF PHOSPHORUS METABOLISM (10) HTN (hypertension) Assessment/Plan: uncontrolled HTN PT has Metoprolol and Hydralazine PRN To make Hydralazine standing; I d/w with pt.'s nurse Code(s): I10 - ESSENTIAL (PRIMARY) HYPERTENSION Assessment/Plan GI and surgical f/u appreciated post OP day 2 NPO for now s/p NGT- removed this AM Pt. wants his to make medical decisions if he cannot; both daughter agrees with pt. All family's questions were answered To continue Metorolol IVP PRN., Hydralazine is standing Pt. is hemodynamically stable. To replete Ph. AM labs Prognosis: reserved Case was d/w pt.'s ICU nurse Time spent for managing pt.'s care: over 40 minutes
[2016-10-23] MEDS ORDERED: POTASSIUM PHOSPHATE 30 MM in SODIUM CHLORIDE 250 ML IVPB ONE ×3 (09:32→18:15)
[2016-10-23] MEDS ORDERED: POTASSIUM PHOSPHATE 30 MM in SODIUM CHLORIDE 500 ML IVPB ONE (09:50)
--- NOTE | 2016-10-23 10:25 | PN ---
Teaching Attending Note Name of Resident: Kayleigh Ibrahim ATTENDING PHYSICIAN STATEMENT I saw and evaluated the patient. I reviewed the resident's note and discussed the case with the resident. I agree with the resident's findings and plan as documented. SUBJECTIVE: Patient seen and examined in the ICU. Awake and alert. (+) Abdominal pain. No flatus or BM. Noted electrolyte derangement. OBJECTIVE: Intake & Output 10/20/16 10/21/16 10/22/16 10/23/16 23:59 23:59 23:59 23:59 Intake Total 2133.6 2250 2825 810 Output Total 1600 945 100 200 Balance 533.6 1305 2725 610 Weight 129 lb 3.054 oz 124 lb 4.8 oz 124 lb 1.6 oz 127 lb 6.835 oz Last Vital Signs Temp Pulse Resp BP Pulse Ox 100.0 F H 111 H 27 H 161/69 97 10/23/16 10:00 10/23/16 10:00 10/23/16 10:00 10/23/16 10:00 10/22/16 19:43 Active Medications Aclidinium [place] (Tudorza -) 1 puff IH BID [facility] Last Admin: 10/23/16 09:07 Dose: 1 puff Amlodipine Besylate (Norvasc -) 5 mg PO DAILY [facility] Last Admin: 10/22/16 09:57 Dose: Not Given Atorvastatin Calcium (Lipitor -) 40 mg PO HS [facility] Last Admin: 10/21/16 21:10 Dose: Not Given Fat Emulsion Intravenous (Intralipid -) 250 ml IV DAILY@2200 [facility] Last Admin: 10/22/16 21:29 Dose: 250 ml Heparin Sodium (Porcine) (Heparin -) 5,000 unit SQ TID [facility] Last Admin: 10/23/16 06:11 Dose: 5,000 unit Hydralazine HCl (Apresoline Injection -) 10 mg IVPUSH Q8H [facility] Pantoprazole Sodium (Protonix 40mg Ivpb (Pre-Docked)) 100 mls @ 200 mls/hr IVPB DAILY [facility] Last Admin: 10/23/16 09:06 Dose: 200 mls/hr Potassium Phosphate 30 mm/ (Sodium Chloride) 510 mls @ 62.5 mls/hr IVPB ONCE ONE Stop: 10/23/16 17:41 Amino Acids (Clinimix -) 1,000 mls @ 65 mls/hr IV Q24H [facility] Labetalol HCl (Normodyne -) 200 mg PO BID [facility] Last Admin: 10/21/16 21:10 Dose: Not Given Metoprolol Tartrate (Lopressor Injection -) 2.5 mg IVPUSH Q4H PRN PRN Reason: HYPERTENSION Last Admin: 10/22/16 17:12 Dose: 2.5 mg Morphine Sulfate (Morphine Injection -) 4 mg IVPB Q3H PRN PRN Reason: MODERATE PAIN Last Admin: 10/23/16 08:29 Dose: 4 mg Multivitamins/Minerals (Infuvite Adult -) 10 ml IV Q24H [facility] Last Admin: 10/22/16 18:18 Dose: 10 ml Ondansetron HCl (Zofran Injection) 8 mg IVPB Q6H PRN PRN Reason: NAUSEA AND/OR VOMITING Last Admin: 10/23/16 01:30 Dose: 8 mg Oxycodone HCl (Roxicodone -) 7.5 mg PO Q4H PRN PRN Reason: PAIN Gen: Awake, mildly confused Heart: RRR Lung: decreased breath sounds at the bases Abd: soft, No BS appreciated, appropriately tender Ext: no edema Laboratory Results - last 24 hr 10/23/16 10/23/16 05:10 05:10 WBC 14.5 H RBC 5.33 Hgb 14.7 Hct 44.6 MCV 83.6 MCHC 33.0 RDW 13.9 Plt Count 299 MPV 7.5 Sodium 142 Potassium 3.5 Chloride 102 Carbon Dioxide 30 Anion Gap 10 BUN 20 H D Creatinine 0.6 L Creat Clearance w eGFR > 60 Random Glucose 128 H Calcium 9.3 Phosphorus 1.4 L D Magnesium 2.2 Total Bilirubin 2.0 H AST 29 ALT 21 Alkaline Phosphatase 80 Total Protein 5.8 L Albumin 2.7 L ASSESSMENT AND PLAN: Pneumoatosis Intestinalis resolved 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
--- NOTE | 2016-10-23 10:45 | PN ---
Progress Note, Physician History of Present Illness: 81 year old man with a history of HTN, HLD, COPD, CVA, AAA admitted with abdominal discomfort and constipation concerning for SBO. Pt seen and examined today in nad. He states that he had multiple small BM's yesterday and overnight. denies any current abd pain. denies chest pain, sob, palpitations. no pnd, orthopnea, or LE edema. NG tube in place. PMH LE angio 02/21/2015 Dr. 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 DCB 08/10/2014 Dr Alcazar PCI LCx 09/20/2014 Dr Alcazar Medical History Reviewed Condition Date Treating Physician Comments Claudication, intermittent HTN Hyperlipidemia TIA/CVA - Current Medication List Current Medications: Active Medications Aclidinium [place] (Tudorza -) 1 puff IH BID [facility] Last Admin: 10/23/16 09:07 Dose: 1 puff Amlodipine Besylate (Norvasc -) 5 mg PO DAILY [facility] Last Admin: 10/22/16 09:57 Dose: Not Given Atorvastatin Calcium (Lipitor -) 40 mg PO HS [facility] Last Admin: 10/21/16 21:10 Dose: Not Given Fat Emulsion Intravenous (Intralipid -) 250 ml IV DAILY@2200 [facility] Last Admin: 10/22/16 21:29 Dose: 250 ml Heparin Sodium (Porcine) (Heparin -) 5,000 unit SQ TID [facility] Last Admin: 10/23/16 06:11 Dose: 5,000 unit Hydralazine HCl (Apresoline Injection -) 10 mg IVPUSH Q8H [facility] Pantoprazole Sodium (Protonix 40mg Ivpb (Pre-Docked)) 100 mls @ 200 mls/hr IVPB DAILY [facility] Last Admin: 10/23/16 09:06 Dose: 200 mls/hr Potassium Phosphate 30 mm/ (Sodium Chloride) 510 mls @ 62.5 mls/hr IVPB ONCE ONE Stop: 10/23/16 17:41 Amino Acids (Clinimix -) 1,000 mls @ 65 mls/hr IV Q24H [facility] Labetalol HCl (Normodyne -) 200 mg PO BID [facility] Last Admin: 10/21/16 21:10 Dose: Not Given Metoprolol Tartrate (Lopressor Injection -) 2.5 mg IVPUSH Q4H PRN PRN Reason: HYPERTENSION Last Admin: 10/22/16 17:12 Dose: 2.5 mg Morphine Sulfate (Morphine Injection -) 4 mg IVPB Q3H PRN PRN Reason: MODERATE PAIN Last Admin: 10/23/16 08:29 Dose: 4 mg Multivitamins/Minerals (Infuvite Adult -) 10 ml IV Q24H [facility] Last Admin: 10/22/16 18:18 Dose: 10 ml Ondansetron HCl (Zofran Injection) 8 mg IVPB Q6H PRN PRN Reason: NAUSEA AND/OR VOMITING Last Admin: 10/23/16 01:30 Dose: 8 mg Oxycodone HCl (Roxicodone -) 7.5 mg PO Q4H PRN PRN Reason: PAIN - Objective Vital Signs: Vital Signs Temperature 100.0 F H 10/23/16 10:00 Pulse Rate 111 H 10/23/16 10:00 Respiratory Rate 27 H 10/23/16 10:00 Blood Pressure 161/69 10/23/16 10:00 O2 Sat by Pulse Oximetry (%) 97 10/22/16 19:43 Eyes: Yes: WNL, Conjunctiva Clear, EOM Intact HENT: Yes: WNL, Atraumatic, Normocephalic Neck: Yes: WNL, Supple, Trachea Midline Cardiovascular: Yes: Pulse Irregular Respiratory: Yes: WNL, Regular, CTA Bilaterally Genitourinary: Yes: WNL Musculoskeletal: Yes: WNL Extremities: Yes: WNL Edema: No Integumentary: Yes: WNL Neurological: Yes: WNL, Alert, Oriented ...Motor Strength: WNL Psychiatric: Yes: WNL Labs: CBC, BMP 10/23/16 05:10 10/23/16 05:10 Assessment/Plan POD #2 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
[2016-10-23] MEDS: AMINO ACIDS 4.25%/D5W 1,000 ML IV SCH ×2 (12:00→17:13)
--- NOTE | 2016-10-23 13:13 | PN ---
Progress Note (short form) - Note Progress Note: surgery pt seen and examined. feels well. no flatus. hiccups. tmax 100.0 urine output not recorded except once this am. (going in diaper) urine now noted in [place] catheter bag abd- soft, minimal tenderness, incision clean, mild distension Laboratory Tests 10/23/16 10/23/16 05:10 05:10 WBC 14.5 H Potassium 3.5 Phosphorus 1.4 L D Laboratory Tests 10/23/16 05:10 BUN 20 H D Creatinine 0.6 L A/P 1) Pod#2- jello can be given. will increase ivf addition to clinmix 2) prophylaxis- heparin, protonix, oob, spirometer, finish abx 3) pain- tylenol 4) small bowel tumor causing sbo- follow path 5) mesenteric artery stenosis with hx tia- ok to fully anticoagulate 6) cad- ok to resume Plavix 7) hypophosphatemia- being replaced
[2016-10-23] MEDS: chlorproMAZINE HCL 25 MG TABLET PO SCH ×3 (13:37→21:41)
[2016-10-23] MEDS: SODIUM CHLORIDE 0.45% 1,000 ML IV SCH (13:40)
[2016-10-23] MEDS: hydrALAZINE HCL 20 MG/ML VIAL IVPUSH SCH ×2 (13:41→16:35)
--- NOTE | 2016-10-23 14:32 | PN ---
Physical Exam: SUBJECTIVE: Patient seen and examined in ICU. He is feeling good today, but no flatus and BMs. no overnight events. OBJECTIVE: Vital Signs Period Temp Pulse Resp BP Sys/Hernandez Pulse Ox Last 24 Hr 98.6 F-100.0 F 73-121 11- 152-192/68-98 97-99 GENERAL: The patient is awake, alert, and fully oriented, in no acute distress. HEAD: Normal with no signs of trauma. EYES: extraocular movements intact, sclera anicteric, conjunctiva clear. ENT: oropharynx clear without exudates, moist mucous membranes. NECK: Trachea midline, full range of motion, supple. LUNGS: clear to auscultation bilaterally, no wheezes, no crackles, no accessory muscle use. HEART: Regular rate and rhythm, S1, S2 without murmur, rub or gallop. ABDOMEN: Soft, nondistended, hypoactive bowel sounds, tenderness and guarding, longitudinal scar in mid abdomen, well healing, no drainage, erythema. EXTREMITIES: warm, well-perfused, no edema. NEUROLOGICAL: No facial asymmetry, normal speech, gait not observed. PSYCH: Normal mood, normal affect. SKIN: Warm, dry, normal turgor, no rashes. Laboratory Results - last 24 hr 10/23/16 10/23/16 05:10 05:10 WBC 14.5 H RBC 5.33 Hgb 14.7 Hct 44.6 MCV 83.6 MCHC 33.0 RDW 13.9 Plt Count 299 MPV 7.5 Sodium 142 Potassium 3.5 Chloride 102 Carbon Dioxide 30 Anion Gap 10 BUN 20 H D Creatinine 0.6 L Creat Clearance w eGFR > 60 Random Glucose 128 H Calcium 9.3 Phosphorus 1.4 L D Magnesium 2.2 Total Bilirubin 2.0 H AST 29 ALT 21 Alkaline Phosphatase 80 Total Protein 5.8 L Albumin 2.7 L Active Medications Generic Name Dose Route Start Last Admin Trade Name Freq PRN Reason Stop Dose Admin Aclidinium [place] 1 puff 10/21/16 22:00 10/23/16 09:07 Tudorza - IH 1 puff BID [facility] Administration Amlodipine Besylate 5 mg 10/22/16 10:00 10/22/16 09:57 Norvasc - PO Not Given DAILY [facility] Atorvastatin Calcium 40 mg 10/21/16 22:00 10/21/16 21:10 Lipitor - PO Not Given HS [facility] Chlorpromazine HCl 50 mg 10/23/16 14:00 10/23/16 13:37 Thorazine - PO 50 mg QID [facility] Administration Fat Emulsion Intravenous 250 ml 10/22/16 22:00 10/22/16 21:29 Intralipid - IV 250 ml DAILY@2200 [facility] Administration Heparin Sodium (Porcine) 5,000 unit 10/21/16 22:00 10/23/16 13:14 Heparin - SQ 5,000 unit TID [facility] Administration Hydralazine HCl 10 mg 10/23/16 09:30 10/23/16 13:41 Apresoline Injection - IVPUSH Not Given Q8H [facility] Pantoprazole Sodium 100 mls @ 200 mls/hr 10/22/16 10:00 10/23/16 09:06 Protonix 40mg Ivpb (Pre-Docked) IVPB 200 mls/hr DAILY [facility] Administration Potassium Phosphate 30 mm/ 510 mls @ 62.5 mls/hr 10/23/16 09:50 10/23/16 11:25 Sodium Chloride IVPB 10/23/16 17:41 62.5 mls/hr ONCE ONE Administration Amino Acids 1,000 mls @ 65 mls/hr 10/23/16 11:15 10/23/16 12:00 Clinimix - IV 65 mls/hr Q15H [facility] Administration Sodium Chloride 1,000 mls @ 60 mls/hr 10/23/16 13:30 10/23/16 13:40 1/2 Normal Saline IV 60 mls/hr ASDIR [facility] Administration Labetalol HCl 200 mg 10/21/16 22:00 10/21/16 21:10 Normodyne - PO Not Given BID [facility] Metoprolol Tartrate 2.5 mg 10/21/16 15:14 10/22/16 17:12 Lopressor Injection - IVPUSH 2.5 mg Q4H PRN Administration HYPERTENSION Morphine Sulfate 4 mg 10/21/16 13:55 10/23/16 08:29 Morphine Injection - IVPB 4 mg Q3H PRN Administration MODERATE PAIN Multivitamins/Minerals 10 ml 10/22/16 17:45 10/22/16 18:18 Infuvite Adult - IV 10 ml Q24H [facility] Administration Ondansetron HCl 8 mg 10/21/16 15:14 10/23/16 11:02 Zofran Injection IVPB 8 mg Q6H PRN Administration NAUSEA AND/OR VOMITING Oxycodone HCl 7.5 mg 10/21/16 13:55 Roxicodone - PO Q4H PRN PAIN CTA abdomen/pelvis: 1. Patchy right lower lobe consolidation. 2. 3.4 cm distal AAA with extensive atherosclerotic disease involving the distal abdominal aorta , iliac and femoral arteries. 3. Patent mesenteric vasculature with extensive calcified plaque within the proximal SMA. 4. Improved small bowel dilatation since 10/18/2016. 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 5. Clinical correlation and follow-up recommended. Please see above discussion. ORIGINAL REPORT Abdomen: Small bowel obstruction ASSESSMENT/PLAN: 81yom with PMHx of HTN, CHF, CVA, TIA, COPD and HLD who presented to ED on 10/16 with c/o of abd pain,vomiting and belching up of food x 4days and constipation. 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 OR deferred d/t pt on plavix and medical comorbidities. 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: -d/p ex-laparotomy, POD# 2 -tumor in small bowel removed and sent for pathology -NPO can eat jello today, cont Clinimix -f/u surgery recommendations -continue NS at rate 60 ml/hr -continue Zosyn 3.375gm Ivpb Q8h -continue Morphine for pain control Hypertension/CAD: -cont Lopressor -cont Hydralazine 10 mg IV TID -hold PO meds -f/u cardiology recommendations -cardiac monitoring -resume Plavix tomorrow Hypophosphatemia and hypokalemia: -repleated, will monitor HDL: -hold PO meds DVT PPX: cont heparin SQ F/E/N Rl/no changes/clear liquids: jello, Clinimix with lipids and MVI Disposition: monitor in ICU Problem List - Problems (1) Pneumatosis intestinalis Code(s): K63.89 - OTHER SPECIFIED DISEASES OF INTESTINE (2) SBO (small bowel obstruction) Code(s): K56.69 - OTHER INTESTINAL OBSTRUCTION (3) Abdominal aortic aneurysm (AAA) Code(s): I71.4 - ABDOMINAL AORTIC ANEURYSM, WITHOUT RUPTURE (4) CVA (cerebral infarction) Code(s): I63.9 - CEREBRAL INFARCTION, UNSPECIFIED (5) Chronic obstructive pulmonary disease Code(s): J44.9 - CHRONIC OBSTRUCTIVE PULMONARY DISEASE, UNSPECIFIED (6) HTN (hypertension) Code(s): I10 - ESSENTIAL (PRIMARY) HYPERTENSION Visit type - Emergency Visit Emergency Visit: Yes ED Registration Date: 10/17/16 Care time: The patient presented to the Emergency Department on the above date and was hospitalized for further evaluation of their emergent condition. - New Patient This patient is new to me today: No - Critical Care Critical Care patient: Yes Total Critical Care Time (in minutes): 40 Critical Care Statement: The care of this patient involved high complexity decision making to prevent further life threatening deterioration of the patient 's condition and/or to evalute & treat vital organ system(s) failure or risk of failure.
[2016-10-23] MEDS: MULTIVIT INJ. ADULT COMBO WITH VIT K 1 COMBO 10 ML VIAL IV SCH (17:13)
[2016-10-23] MEDS: METOPROLOL TARTRATE 5 MG/5 ML VIAL IVPUSH PRN (17:15)
[2016-10-23] MEDS: FAT EMULSIONS 20% 250 ML PREMIX INFUS.BAG IV SCH (23:07)
[2016-10-24] MEDS: hydrALAZINE HCL 20 MG/ML VIAL IVPUSH SCH ×2 (01:58→09:37)
[2016-10-24] MEDS: AMINO ACIDS 4.25%/D5W 1,000 ML IV SCH ×3 (02:00→23:56)
[2016-10-24] MEDS: morphine CARPU-JECT 4 MG/1 ML DISP.SYRIN IVPB PRN (03:58)
[2016-10-24] MEDS: HEPARIN NA (PORCINE) 5,000 UNITS/ML 1ML VIAL SQ SCH ×3 (05:27→21:23)
[2016-10-24 07:37] LABS: MCHC 33.5 g/dl (32.0-35.9); MEAN CELL VOLUME 83.7 fl (80-96); MEAN PLT VOLUME 7.6 fl (7.5-11.1); PLATELET COUNT 238 K/MM3 (134-434); RDW 13.8 % (11.9-15.9); WHITE BLOOD COUNT 13.7 K/mm3 (4.0-10.0)
[2016-10-24 07:39] LABS: ALBUMIN 2.6 g/dl (3.4-5.0); ALK PHOS 68 U/L (45-117); ANION GAP 12 (8-16); BILIRUBIN,TOTAL 1.3 mg/dL (0.2-1.0); CALCIUM 9.3 mg/dL (8.5-10.1); CO2 26 mmol/L (21-32); CREATININE 0.8 mg/dL (0.7-1.3); GLUCOSE,RANDOM 137 mg/dL (74-106); MAGNESIUM 2.2 mg/dL (1.8-2.4); PHOSPHOROUS 3.3 mg/dL (2.5-4.9); SGOT/AST 34 U/L (15-37); SGPT/ALT 22 U/L (12-78); TOT PROT 5.5 g/dl (6.4-8.2)
--- NOTE | 2016-10-24 08:58 | PN ---
Progress Note, Physician Chief Complaint: seen and examined in coverage for Dane No chest pain or SOB TELE: Sinus tach with APCs, PVCs - Current Medication List Current Medications: Active Medications Aclidinium [place] (Tudorza -) 1 puff IH BID [facility] Last Admin: 10/23/16 21:43 Dose: Not Given Amlodipine Besylate (Norvasc -) 5 mg PO DAILY [facility] Last Admin: 10/22/16 09:57 Dose: Not Given Atorvastatin Calcium (Lipitor -) 40 mg PO HS [facility] Last Admin: 10/21/16 21:10 Dose: Not Given Chlorpromazine HCl (Thorazine -) 50 mg PO QID [facility] Last Admin: 10/23/16 21:41 Dose: Not Given Clopidogrel Bisulfate (Plavix -) 75 mg PO DAILY [facility] Fat Emulsion Intravenous (Intralipid -) 250 ml IV DAILY@2200 [facility] Last Admin: 10/23/16 23:07 Dose: 250 ml Heparin Sodium (Porcine) (Heparin -) 5,000 unit SQ TID [facility] Last Admin: 10/24/16 05:27 Dose: 5,000 unit Hydralazine HCl (Apresoline Injection -) 10 mg IVPUSH Q8H [facility] Last Admin: 10/24/16 01:58 Dose: 10 mg Pantoprazole Sodium (Protonix 40mg Ivpb (Pre-Docked)) 100 mls @ 200 mls/hr IVPB DAILY [facility] Last Admin: 10/23/16 09:06 Dose: 200 mls/hr Amino Acids (Clinimix -) 1,000 mls @ 65 mls/hr IV Q15H [facility] Last Admin: 10/24/16 02:00 Dose: Not Given Sodium Chloride (1/2 Normal Saline) 1,000 mls @ 60 mls/hr IV ASDIR [facility] Last Admin: 10/23/16 13:40 Dose: 60 mls/hr Labetalol HCl (Normodyne -) 200 mg PO BID [facility] Last Admin: 10/21/16 21:10 Dose: Not Given Metoprolol Tartrate (Lopressor Injection -) 2.5 mg IVPUSH Q4H PRN PRN Reason: HYPERTENSION Last Admin: 10/23/16 17:15 Dose: 2.5 mg Morphine Sulfate (Morphine Injection -) 4 mg IVPB Q3H PRN PRN Reason: MODERATE PAIN Last Admin: 10/24/16 03:58 Dose: 4 mg Multivitamins/Minerals (Infuvite Adult -) 10 ml IV Q24H [facility] Last Admin: 10/23/16 17:13 Dose: 10 ml Ondansetron HCl (Zofran Injection) 8 mg IVPB Q6H PRN PRN Reason: NAUSEA AND/OR VOMITING Last Admin: 10/23/16 17:43 Dose: 8 mg Oxycodone HCl (Roxicodone -) 7.5 mg PO Q4H PRN PRN Reason: PAIN - Objective Vital Signs: Vital Signs Temperature 99 F 10/24/16 06:00 Pulse Rate 99 H 10/24/16 06:00 Respiratory Rate 18 10/24/16 06:00 Blood Pressure 156/75 10/24/16 06:00 O2 Sat by Pulse Oximetry (%) 93 L 10/23/16 21:00 Constitutional: Yes: No Distress Cardiovascular: Yes: Regular Rate and Rhythm Respiratory: Yes: CTA Bilaterally Gastrointestinal: Yes: Soft (no acute rebound or guarding) Edema: No Neurological: Yes: Alert Labs: CBC, BMP 10/24/16 05:20 10/24/16 05:20 Laboratory Tests 10/24/16 10/24/16 05:20 05:20 WBC 13.7 H Hgb 14.2 Hct 42.4 Plt Count 238 D Sodium 141 Potassium 3.4 L BUN 27 H D Creatinine 0.8 D Magnesium 2.2 - ....Imaging EKG: Image Reviewed Assessment/Plan Assessment/Plan S/p small bowel resection with tumor Mesenteric artery stenosis PAD ASHD s/p PCI LCx 09/20/2014 HTN Hyperlipidemia TIA/CVA Plan: Continue Plavix and metoprolol ECG today. Further management as per surgery.
[2016-10-24] MEDS: PANTOPRAZOLE SODIUM 100 ML IVPB SCH (09:37)
[2016-10-24] MEDS: LABETALOL HCL 200 MG TABLET (FP) PO SCH ×2 (09:37→21:23)
[2016-10-24] MEDS: CLOPIDOGREL BISULFATE 75 MG TABLET (FP) PO SCH (09:37)
[2016-10-24] MEDS: amLODIPine BESYLATE 5 MG TABLET (FP) PO SCH (09:37)
[2016-10-24] MEDS: chlorproMAZINE HCL 25 MG TABLET PO SCH ×4 (09:38→21:32)
[2016-10-24] MEDS: ACLIDINIUM BROMIDE 400 MCG/INH AERO.POWD IH SCH ×2 (09:39→21:43)
--- NOTE | 2016-10-24 09:49 | PN ---
Progress Note (short form) - Note Progress Note: PULM / CCM Pt seen & examined in the ICU. C & A. Eating Broth & Jello. NAD. Active Medications Aclidinium [place] (Tudorza -) 1 puff IH BID [facility] Last Admin: 10/24/16 09:39 Dose: 1 puff Amlodipine Besylate (Norvasc -) 2.5 mg PO DAILY [facility] Atorvastatin Calcium (Lipitor -) 40 mg PO HS [facility] Last Admin: 10/21/16 21:10 Dose: Not Given Chlorpromazine HCl (Thorazine -) 50 mg PO QID [facility] Last Admin: 10/24/16 13:53 Dose: 50 mg Clopidogrel Bisulfate (Plavix -) 75 mg PO DAILY [facility] Last Admin: 10/24/16 09:37 Dose: 75 mg Fat Emulsion Intravenous (Intralipid -) 250 ml IV DAILY@2200 [facility] Last Admin: 10/23/16 23:07 Dose: 250 ml Heparin Sodium (Porcine) (Heparin -) 5,000 unit SQ TID [facility] Last Admin: 10/24/16 13:53 Dose: 5,000 unit Pantoprazole Sodium (Protonix 40mg Ivpb (Pre-Docked)) 100 mls @ 200 mls/hr IVPB DAILY [facility] Last Admin: 10/24/16 09:37 Dose: 200 mls/hr Amino Acids (Clinimix -) 1,000 mls @ 65 mls/hr IV Q15H [facility] Last Admin: 10/24/16 09:37 Dose: 65 mls/hr Sodium Chloride (1/2 Normal Saline) 1,000 mls @ 60 mls/hr IV ASDIR [facility] Last Admin: 10/24/16 13:54 Dose: 60 mls/hr Potassium Chloride (Potassium Chloride 10 Meq Premix Ivpb -) 100 mls @ 100 mls/ hr IVPB Q60M [facility] Stop: 10/24/16 18:14 Last Admin: 10/24/16 16:27 Dose: 100 mls/hr Labetalol HCl (Normodyne -) 200 mg PO BID [facility] Metoprolol Tartrate (Lopressor Injection -) 2.5 mg IVPUSH Q4H PRN PRN Reason: HYPERTENSION Last Admin: 10/23/16 17:15 Dose: 2.5 mg Multivitamins/Minerals (Infuvite Adult -) 10 ml IV Q24H [facility] Last Admin: 10/23/16 17:13 Dose: 10 ml Ondansetron HCl (Zofran Injection) 8 mg IVPB Q6H PRN PRN Reason: NAUSEA AND/OR VOMITING Last Admin: 10/23/16 17:43 Dose: 8 mg Oxycodone HCl (Roxicodone -) 5 mg PO Q6H PRN PRN Reason: PAIN V/S Period Temp Pulse Resp BP Sys/Hernandez Pulse Ox Last 24 Hr 98.2 F-99 F 73-130 17-22 105-174/53-81 93-96 I's & O's 10/21/16 10/22/16 10/23/16 10/24/16 23:59 23:59 23:59 23:59 Intake Total 2250 2825 2630 1250 Output Total 945 100 400 Balance 1305 2725 2230 1250 Weight 56.382 kg 56.291 kg 57.8 kg 58.649 kg GEN: Elderly man in bed in NAD HEENT: PERRL, an-icteric, MMM PULM: Coarse CV: nml S1 S2, RR, Unable to appreciate any G/M/R ABD: + BS (hypoactive), S/S N/T N/D X4Q EXT: + Pulses, WWPX4, (-) edema SKIN: No obvious rashes, lesions, or ulcers NEURO: CA+OX3, LEOS, follows all, (-) focal deficit CBC, BMP 10/24/16 05:20 10/24/16 05:20 CTAP 10/20: 1. Patchy right lower lobe consolidation. 2. 3.4 cm distal AAA with extensive atherosclerotic disease involving the distal abdominal aorta, iliac and femoral arteries. 3. Patent mesenteric vasculature with extensive calcified plaque within the proximal SMA. 4. Improved small bowel dilatation since 2016. 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 5. Clinical correlation and follow-up recommended. Please see above discussion. ORIGINAL REPORT Abdomen: Small bowel obstruction. 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
--- NOTE | 2016-10-24 12:38 | PN ---
Progress Note, Physician History of Present Illness: Pt. in ICU, was seen and examined. Post op day 3 NGT was removed ( by surgeon); pt was allowed to eat jello, not tolerating it well Pt. with abd discomfort. Pt. in thew chair, weak Pt. c/o thirst, cough with clear sputum. Pt. w/o N, V. Pt w/o CP, SOB, Palp. - Current Medication List Current Medications: Active Medications Aclidinium [place] (Tudorza -) 1 puff IH BID [facility] Last Admin: 10/24/16 09:39 Dose: 1 puff Atorvastatin Calcium (Lipitor -) 40 mg PO HS [facility] Last Admin: 10/21/16 21:10 Dose: Not Given Chlorpromazine HCl (Thorazine -) 50 mg PO QID [facility] Last Admin: 10/24/16 09:38 Dose: 50 mg Clopidogrel Bisulfate (Plavix -) 75 mg PO DAILY [facility] Last Admin: 10/24/16 09:37 Dose: 75 mg Fat Emulsion Intravenous (Intralipid -) 250 ml IV DAILY@2200 [facility] Last Admin: 10/23/16 23:07 Dose: 250 ml Heparin Sodium (Porcine) (Heparin -) 5,000 unit SQ TID [facility] Last Admin: 10/24/16 05:27 Dose: 5,000 unit Hydralazine HCl (Apresoline Injection -) 10 mg IVPUSH Q8H [facility] Last Admin: 10/24/16 09:37 Dose: 10 mg Pantoprazole Sodium (Protonix 40mg Ivpb (Pre-Docked)) 100 mls @ 200 mls/hr IVPB DAILY [facility] Last Admin: 10/24/16 09:37 Dose: 200 mls/hr Amino Acids (Clinimix -) 1,000 mls @ 65 mls/hr IV Q15H [facility] Last Admin: 10/24/16 09:37 Dose: 65 mls/hr Sodium Chloride (1/2 Normal Saline) 1,000 mls @ 60 mls/hr IV ASDIR [facility] Last Admin: 10/23/16 13:40 Dose: 60 mls/hr Labetalol HCl (Normodyne -) 200 mg PO BID [facility] Metoprolol Tartrate (Lopressor Injection -) 2.5 mg IVPUSH Q4H PRN PRN Reason: HYPERTENSION Last Admin: 10/23/16 17:15 Dose: 2.5 mg Morphine Sulfate (Morphine Injection -) 4 mg IVPB Q3H PRN PRN Reason: MODERATE PAIN Last Admin: 10/24/16 03:58 Dose: 4 mg Multivitamins/Minerals (Infuvite Adult -) 10 ml IV Q24H [facility] Last Admin: 10/23/16 17:13 Dose: 10 ml Ondansetron HCl (Zofran Injection) 8 mg IVPB Q6H PRN PRN Reason: NAUSEA AND/OR VOMITING Last Admin: 10/23/16 17:43 Dose: 8 mg Oxycodone HCl (Roxicodone -) 7.5 mg PO Q4H PRN PRN Reason: PAIN - Objective Vital Signs: Vital Signs Temperature 98.5 F 10/24/16 08:00 Pulse Rate 84 10/24/16 10:20 Respiratory Rate 22 10/24/16 10:20 Blood Pressure 134/81 10/24/16 10:20 O2 Sat by Pulse Oximetry (%) 96 10/24/16 09:00 Constitutional: Yes: No Distress, Other (Pt. is weak, short answers to questions ) Cardiovascular: Yes: Regular Rate and Rhythm, S1, S2 Respiratory: Yes: Regular, Other (coarse BS bilat) Gastrointestinal: Yes: Normal Bowel Sounds, Tenderness (it seems more sensitive than yesterday, ? guarding). No: Tenderness, Rebound, Vomiting Edema: No Labs: CBC, BMP 10/24/16 05:20 10/24/16 05:20 Problem List - Problems (1) Small bowel mass Assessment/Plan: noticed on the latest CT scan. s/p SB tumor resection Code(s): K63.89 - OTHER SPECIFIED DISEASES OF INTESTINE (2) SBO (small bowel obstruction) Code(s): K56.69 - OTHER INTESTINAL OBSTRUCTION (3) Pneumatosis intestinalis Code(s): K63.89 - OTHER SPECIFIED DISEASES OF INTESTINE (4) CHF (congestive heart failure) Code(s): I50.9 - HEART FAILURE, UNSPECIFIED (5) CVA (cerebral infarction) Code(s): I63.9 - CEREBRAL INFARCTION, UNSPECIFIED (6) Chronic obstructive pulmonary disease Code(s): J44.9 - CHRONIC OBSTRUCTIVE PULMONARY DISEASE, UNSPECIFIED (7) Hyperlipidemia Code(s): E78.5 - HYPERLIPIDEMIA, UNSPECIFIED (8) Hypokalemia due to inadequate potassium intake Assessment/Plan: to replete K Code(s): E87.6 - HYPOKALEMIA (9) Hypophosphatemia Assessment/Plan: Corrected Code(s): E83.39 - OTHER DISORDERS OF PHOSPHORUS METABOLISM (10) HTN (hypertension) Code(s): I10 - ESSENTIAL (PRIMARY) HYPERTENSION Assessment/Plan GI and surgical f/u appreciated post OP day 3 s/p NGT- removed this AM Pt. wants his to make medical decisions if he cannot; both daughter agrees with pt. All family's questions were answered Pt. on Metoprolol IVP PRN., Hydralazine IV is standing; consider to DC IV medication is pt. tolerates PO. To readjust Amlodipine dose Pt. is hemodynamically stable. Family is at bedside. AM labs Prognosis: reserved Case was d/w pt.'s ICU nurse Time spent for managing pt.'s care: over 45 minutes
[2016-10-24] MEDS: SODIUM CHLORIDE 0.45% 1,000 ML IV SCH (13:54)
[2016-10-24] MEDS ORDERED: oxyCODONE HCL 5 MG TABLET PO PRN (16:19)
[2016-10-24] MEDS: KCL 10 MEQ IVPB 100 ML IVPB SCH ×2 (16:27→18:23)
[2016-10-24] MEDS ORDERED: ATORVASTATIN CA 20 MG TABLET (FP) ONE (21:20)
[2016-10-24] MEDS ORDERED: PT OWN MED DRAWER 7, Y5N ONE (21:20)
[2016-10-24] MEDS: FAT EMULSIONS 20% 250 ML PREMIX INFUS.BAG IV SCH (21:23)
[2016-10-24] MEDS: ATORVASTATIN CA 40 MG TABLET (FP) PO SCH (21:35)
[2016-10-24] MEDS: MULTIVIT INJ. ADULT COMBO WITH VIT K 1 COMBO 10 ML VIAL IV SCH (23:56)
[2016-10-25] MEDS ORDERED: ALBUTEROL SO4 0.083% IH SOL 2.5 MG/3 ML VIAL.NEB. NEB STA (05:26)
[2016-10-25] MEDS ORDERED: FUROSEMIDE 40 MG/4 ML INJECTABLE VIAL IVPUSH ONE ×2 (05:51→19:57)
[2016-10-25 06:34] LABS: BASOPHIL 0.1 % (0-2.0); EOSINOPHIL 1.3 % (0-4.5); MCH 27.8 pg (25.7-33.7); MCHC 33.3 g/dl (32.0-35.9); MEAN CELL VOLUME 83.4 fl (80-96); MEAN PLT VOLUME 7.8 fl (7.5-11.1); NEUTROPHILS 84.7 % (42.8-82.8); PLATELET COUNT 267 K/MM3 (134-434)
[2016-10-25] MEDS: HEPARIN NA (PORCINE) 5,000 UNITS/ML 1ML VIAL SQ SCH ×3 (06:34→21:57)
[2016-10-25 07:14] LABS: ALBUMIN 2.5 g/dl (3.4-5.0); ANION GAP 11 (8-16); CALCIUM 9.5 mg/dL (8.5-10.1); CO2 23 mmol/L (21-32); MAGNESIUM 1.8 mg/dL (1.8-2.4)
[2016-10-25 07:19] LABS: ALK PHOS 69 U/L (45-117); BILIRUBIN,TOTAL 1.5 mg/dL (0.2-1.0); CREATININE 0.7 mg/dL (0.7-1.3); GLUCOSE,RANDOM 161 mg/dL (74-106); PHOSPHOROUS 2.4 mg/dL (2.5-4.9); SGOT/AST 43 U/L (15-37); SGPT/ALT 25 U/L (12-78); TOT PROT 5.4 g/dl (6.4-8.2)
--- NOTE | 2016-10-25 08:37 | PN ---
Progress Note (short form) - Note Progress Note: Progress Note: PULM / CCM Pt seen & examined in the ICU. 24HR: -pt relates still no BM or Flatus -hemodynamically stable -decreased cough -was OOB to chair today Active Medications Aclidinium [place] (Tudorza -) 1 puff IH BID [facility] Last Admin: 10/24/16 09:39 Dose: 1 puff Amlodipine Besylate (Norvasc -) 2.5 mg PO DAILY [facility] Atorvastatin Calcium (Lipitor -) 40 mg PO HS [facility] Last Admin: 10/21/16 21:10 Dose: Not Given Chlorpromazine HCl (Thorazine -) 50 mg PO QID [facility] Last Admin: 10/24/16 13:53 Dose: 50 mg Clopidogrel Bisulfate (Plavix -) 75 mg PO DAILY [facility] Last Admin: 10/24/16 09:37 Dose: 75 mg Fat Emulsion Intravenous (Intralipid -) 250 ml IV DAILY@2200 [facility] Last Admin: 10/23/16 23:07 Dose: 250 ml Heparin Sodium (Porcine) (Heparin -) 5,000 unit SQ TID [facility] Last Admin: 10/24/16 13:53 Dose: 5,000 unit Pantoprazole Sodium (Protonix 40mg Ivpb (Pre-Docked)) 100 mls @ 200 mls/hr IVPB DAILY [facility] Last Admin: 10/24/16 09:37 Dose: 200 mls/hr Amino Acids (Clinimix -) 1,000 mls @ 65 mls/hr IV Q15H [facility] Last Admin: 10/24/16 09:37 Dose: 65 mls/hr Sodium Chloride (1/2 Normal Saline) 1,000 mls @ 60 mls/hr IV ASDIR [facility] Last Admin: 10/24/16 13:54 Dose: 60 mls/hr Potassium Chloride (Potassium Chloride 10 Meq Premix Ivpb -) 100 mls @ 100 mls/ hr IVPB Q60M [facility] Stop: 10/24/16 18:14 Last Admin: 10/24/16 16:27 Dose: 100 mls/hr Labetalol HCl (Normodyne -) 200 mg PO BID [facility] Metoprolol Tartrate (Lopressor Injection -) 2.5 mg IVPUSH Q4H PRN PRN Reason: HYPERTENSION Last Admin: 10/23/16 17:15 Dose: 2.5 mg Multivitamins/Minerals (Infuvite Adult -) 10 ml IV Q24H [facility] Last Admin: 10/23/16 17:13 Dose: 10 ml Ondansetron HCl (Zofran Injection) 8 mg IVPB Q6H PRN PRN Reason: NAUSEA AND/OR VOMITING Last Admin: 10/23/16 17:43 Dose: 8 mg Oxycodone HCl (Roxicodone -) 5 mg PO Q6H PRN PRN Reason: PAIN Vital Signs Temp 98.7 F 10/25/16 06:00 Pulse 96 H 10/25/16 06:00 Resp 16 10/25/16 06:00 BP 139/81 10/25/16 06:00 Pulse Ox 96 10/24/16 21:00 Intake & Output 10/24/16 10/24/16 10/25/16 11:59 23:59 11:59 Intake Total 1250 2360 1130 Balance 1250 2360 1130 Weight 58.649 kg 61.008 kg Intake: IV 1250 1980 1070 1/2 Normal Saline 1,366 243 9570 300 ml @ 60 mls/hr IV ASDIR [facility] Rx#:[id number] clinimix 65cc/hr 520 780 520 intralipid 42cc/hr 250 250 IVPB 200 0 Oral 0 180 60 Other: Voiding Method Incontinent Incontinent # Unmeasured Voids Void 1 1 3 Bowel Movement No No No Weight Measurement Method Built in [facility] in [facility] GEN: Elderly man in bed in [facility] HEENT: PERRL, an-icteric, MMM, some temporal wasting PULM: scattered crackles CV: nml S1 S2, RR, Unable to appreciate any G/M/R ABD: + BS (hypoactive), mildly tender throughout, some increase tenderness LLQ EXT: + Pulses, WWPX4, (-) edema SKIN: No obvious rashes, lesions, or ulcers NEURO: CA+OX3, LEOS, follows all, (-) focal deficit CBC, BMP 10/25/16 05:15 10/25/16 05:15 CTAP 10/20: 1. Patchy right lower lobe consolidation. 2. 3.4 cm distal AAA with extensive atherosclerotic disease involving the distal abdominal aorta, iliac and femoral arteries. 3. Patent mesenteric vasculature with extensive calcified plaque within the proximal SMA. 4. Improved small bowel dilatation since 2016. 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 5. Clinical correlation and follow-up recommended. Please see above discussion. ORIGINAL REPORT Abdomen: Small bowel obstruction. 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
--- NOTE | 2016-10-25 09:12 | PN ---
Progress Note, Physician Chief Complaint: more congested today Given IV Lasix TELE: NSR now, short self limited run MAT vs PAF yesterday - Current Medication List Current Medications: Active Medications Aclidinium [place] (Tudorza -) 1 puff IH BID [facility] Last Admin: 10/24/16 21:43 Dose: 1 puff Albuterol Sulfate (Ventolin 0.083% Nebulizer Soln -) 1 amp NEB Q4H PRN PRN Reason: SHORT OF BREATH/WHEEZING Amlodipine Besylate (Norvasc -) 2.5 mg PO DAILY [facility] Atorvastatin Calcium (Lipitor -) 40 mg PO HS [facility] Last Admin: 10/24/16 21:35 Dose: 40 mg Chlorpromazine HCl (Thorazine -) 50 mg PO QID [facility] Last Admin: 10/24/16 21:32 Dose: Not Given Clopidogrel Bisulfate (Plavix -) 75 mg PO DAILY [facility] Last Admin: 10/24/16 09:37 Dose: 75 mg Fat Emulsion Intravenous (Intralipid -) 250 ml IV DAILY@2200 [facility] Last Admin: 10/24/16 21:23 Dose: 250 ml Heparin Sodium (Porcine) (Heparin -) 5,000 unit SQ TID [facility] Last Admin: 10/25/16 06:34 Dose: 5,000 unit Pantoprazole Sodium (Protonix 40mg Ivpb (Pre-Docked)) 100 mls @ 200 mls/hr IVPB DAILY [facility] Last Admin: 10/24/16 09:37 Dose: 200 mls/hr Amino Acids (Clinimix -) 1,000 mls @ 65 mls/hr IV Q15H [facility] Last Admin: 10/24/16 23:56 Dose: 65 mls/hr Labetalol HCl (Normodyne -) 200 mg PO BID [facility] Last Admin: 10/24/16 21:23 Dose: 200 mg Metoprolol Tartrate (Lopressor Injection -) 2.5 mg IVPUSH Q4H PRN PRN Reason: HYPERTENSION Last Admin: 10/23/16 17:15 Dose: 2.5 mg Multivitamins/Minerals (Infuvite Adult -) 10 ml IV Q24H [facility] Last Admin: 10/24/16 23:56 Dose: 10 ml Ondansetron HCl (Zofran Injection) 8 mg IVPB Q6H PRN PRN Reason: NAUSEA AND/OR VOMITING Last Admin: 10/23/16 17:43 Dose: 8 mg Oxycodone HCl (Roxicodone -) 5 mg PO Q6H PRN PRN Reason: PAIN Last Admin: 10/24/16 22:11 Dose: 5 mg - Objective Vital Signs: Vital Signs Temperature 98.7 F 10/25/16 06:00 Pulse Rate 97 H 10/25/16 08:00 Respiratory Rate 16 10/25/16 08:00 Blood Pressure 123/94 10/25/16 08:00 O2 Sat by Pulse Oximetry (%) 96 10/24/16 21:00 Constitutional: Yes: Calm Cardiovascular: Yes: Regular Rate and Rhythm Respiratory: Yes: Other (bibasilar rales) Gastrointestinal: Yes: Soft (no rebound) Edema: No Neurological: Yes: Alert Labs: CBC, BMP 10/25/16 05:15 10/25/16 05:15 Laboratory Tests 10/25/16 10/25/16 05:15 05:15 WBC 13.0 H Hgb 14.2 Plt Count 267 Sodium 135 L BUN 27 H Creatinine 0.7 - ....Imaging Chest X-ray: Image Reviewed EKG: Image Reviewed Assessment/Plan Assessment/Plan S/p small bowel resection with tumor Mesenteric artery stenosis PAD ASHD s/p PCI LCx 09/20/2014 HTN Hyperlipidemia TIA/CVA Plan: Diurese PRN, given IV Lasix this AM Run of MAT vs PAF yesterday, self limited. Continue tele- if clear recurrent episodes of PAF, then would consider initiating AC. For now, continue Plavix and beta iris. Discussed w/ ICU team. Coverage for Dane
[2016-10-25] MEDS: CLOPIDOGREL BISULFATE 75 MG TABLET (FP) PO SCH (09:27)
[2016-10-25] MEDS: LABETALOL HCL 200 MG TABLET (FP) PO SCH ×2 (09:28→21:58)
[2016-10-25] MEDS: PANTOPRAZOLE SODIUM 100 ML IVPB SCH (09:28)
[2016-10-25] MEDS: ACLIDINIUM BROMIDE 400 MCG/INH AERO.POWD IH SCH ×2 (09:28→21:58)
[2016-10-25] MEDS: amLODIPine BESYLATE 2.5 MG TABLET (FP) PO SCH (09:28)
[2016-10-25] MEDS: chlorproMAZINE HCL 25 MG TABLET PO SCH ×2 (09:29→15:08)
--- NOTE | 2016-10-25 10:19 | EKG ---
Test Reason : Blood Pressure : / mmHG Vent. Rate : 092 BPM Atrial Rate : 092 BPM P-R Int : 176 ms QRS Dur : 076 ms QT Int : 382 ms P-R-T Axes : 060 -13 053 degrees QTc Int : 472 ms POOR DATA QUALITY, INTERPRETATION MAY BE ADVERSELY AFFECTED SINUS RHYTHM WITH OCCASIONAL PREMATURE VENTRICULAR COMPLEXES AND PREMATURE ATRIAL COMPLEXES INFERIOR INFARCT (CITED ON OR BEFORE 24-OCT-2016) ABNORMAL ECG WHEN COMPARED WITH ECG OF 17-OCT-2016 02:14, QUESTIONABLE CHANGE IN QRS AXIS EKG WAS DONE WHILE PATIENT WAS SITTING IN CHAIR Confirmed by BURTON HOOKS MD ([id number]) on 10/25/2016 10:19:31 AM Referred By: Richard CASTELLANOS Confirmed By:BURTON HOOKS MD
[2016-10-25] MEDS: ALBUTEROL SO4 0.083% IH SOL 2.5 MG/3 ML VIAL.NEB. NEB PRN (14:27)
[2016-10-25] MEDS ORDERED: POTASSIUM PHOSPHATE 15 MM in DEXTROSE 5%-WATER - 250 ML IVPB ONE (16:38)
--- NOTE | 2016-10-25 16:38 | PN ---
Progress Note, Physician History of Present Illness: Pt. in ICU, was seen and examined. Post op day 4 NGT was removed ( by surgeon); pt was allowed to eat jello, now on liquid diet Pt. with abd discomfort. Pt.'s cough is improving. Pt. w/o N, V. Pt w/o CP, SOB, Palp. - Current Medication List Current Medications: Active Medications Aclidinium [place] (Tudorza -) 1 puff IH BID [facility] Last Admin: 10/25/16 09:28 Dose: 1 puff Albuterol Sulfate (Ventolin 0.083% Nebulizer Soln -) 1 amp NEB Q4H PRN PRN Reason: SHORT OF BREATH/WHEEZING Last Admin: 10/25/16 14:27 Dose: 1 amp Amlodipine Besylate (Norvasc -) 2.5 mg PO DAILY [facility] Last Admin: 10/25/16 09:28 Dose: 2.5 mg Atorvastatin Calcium (Lipitor -) 40 mg PO HS [facility] Last Admin: 10/24/16 21:35 Dose: 40 mg Chlorpromazine HCl (Thorazine -) 50 mg PO QID [facility] Last Admin: 10/25/16 15:08 Dose: Not Given Clopidogrel Bisulfate (Plavix -) 75 mg PO DAILY [facility] Last Admin: 10/25/16 09:27 Dose: 75 mg Fat Emulsion Intravenous (Intralipid -) 250 ml IV DAILY@2200 [facility] Last Admin: 10/24/16 21:23 Dose: 250 ml Heparin Sodium (Porcine) (Heparin -) 5,000 unit SQ TID [facility] Last Admin: 10/25/16 13:46 Dose: 5,000 unit Pantoprazole Sodium (Protonix 40mg Ivpb (Pre-Docked)) 100 mls @ 200 mls/hr IVPB DAILY [facility] Last Admin: 10/25/16 09:28 Dose: 200 mls/hr Amino Acids (Clinimix -) 1,000 mls @ 65 mls/hr IV Q15H [facility] Last Admin: 10/24/16 23:56 Dose: 65 mls/hr Labetalol HCl (Normodyne -) 200 mg PO BID [facility] Last Admin: 10/25/16 09:28 Dose: 200 mg Metoprolol Tartrate (Lopressor Injection -) 2.5 mg IVPUSH Q4H PRN PRN Reason: HYPERTENSION Last Admin: 10/23/16 17:15 Dose: 2.5 mg Multivitamins/Minerals (Infuvite Adult -) 10 ml IV Q24H [facility] Last Admin: 10/24/16 23:56 Dose: 10 ml Ondansetron HCl (Zofran Injection) 8 mg IVPB Q6H PRN PRN Reason: NAUSEA AND/OR VOMITING Last Admin: 10/23/16 17:43 Dose: 8 mg Oxycodone HCl (Roxicodone -) 5 mg PO Q6H PRN PRN Reason: PAIN Last Admin: 10/24/16 22:11 Dose: 5 mg - Objective Vital Signs: Vital Signs Temperature 99 F 10/25/16 14:00 Pulse Rate 89 10/25/16 16:00 Respiratory Rate 18 10/25/16 16:00 Blood Pressure 99/69 10/25/16 16:00 O2 Sat by Pulse Oximetry (%) 95 10/25/16 10:19 Constitutional: Yes: No Distress, Calm Cardiovascular: Yes: Regular Rate and Rhythm, S1, S2 Respiratory: Yes: Regular, CTA Bilaterally Gastrointestinal: Yes: Normal Bowel Sounds, Soft, Tenderness (minimal with palpation). No: Tenderness, Rebound Edema: No Neurological: Yes: Alert, Oriented Labs: CBC, BMP 10/25/16 05:15 10/25/16 05:15 - ....Imaging Chest X-ray: Report Reviewed X-ray: Report Reviewed Problem List - Problems (1) Small bowel mass Assessment/Plan: noticed on the latest CT scan. s/p SB tumor resection Code(s): K63.89 - OTHER SPECIFIED DISEASES OF INTESTINE (2) SBO (small bowel obstruction) Code(s): K56.69 - OTHER INTESTINAL OBSTRUCTION (3) Pneumatosis intestinalis Code(s): K63.89 - OTHER SPECIFIED DISEASES OF INTESTINE (4) CHF (congestive heart failure) Code(s): I50.9 - HEART FAILURE, UNSPECIFIED (5) CVA (cerebral infarction) Code(s): I63.9 - CEREBRAL INFARCTION, UNSPECIFIED (6) Chronic obstructive pulmonary disease Code(s): J44.9 - CHRONIC OBSTRUCTIVE PULMONARY DISEASE, UNSPECIFIED (7) Hyperlipidemia Code(s): E78.5 - HYPERLIPIDEMIA, UNSPECIFIED (8) Hypokalemia due to inadequate potassium intake Code(s): E87.6 - HYPOKALEMIA (9) Hypophosphatemia Assessment/Plan: to replete IV ( still minimal PO intake) Code(s): E83.39 - OTHER DISORDERS OF PHOSPHORUS METABOLISM (10) HTN (hypertension) Assessment/Plan: controlled HTN Now pt. on PO Amlodipine and Labetalol Code(s): I10 - ESSENTIAL (PRIMARY) HYPERTENSION Assessment/Plan GI and surgical f/u appreciated post OP day 4 Pt. wants his to make medical decisions if he cannot; both daughter agrees with pt. All family's questions were answered Pt. is hemodynamically stable. Family is at bedside. AM labs Prognosis: reserved Case was d/w pt.'s ICU nurse Time spent for managing pt.'s care: over 40 minutes
[2016-10-25] MEDS: MULTIVIT INJ. ADULT COMBO WITH VIT K 1 COMBO 10 ML VIAL IV SCH (17:26)
[2016-10-25] MEDS: AMINO ACIDS 4.25%/D5W 1,000 ML IV SCH ×2 (17:28→23:00)
[2016-10-25] MEDS ORDERED: ATORVASTATIN CA 20 MG TABLET (FP) ONE (21:52)
[2016-10-25] MEDS ORDERED: PT OWN MED DRAWER 7, Y5N ONE (21:52)
[2016-10-25] MEDS: ATORVASTATIN CA 40 MG TABLET (FP) PO SCH (21:58)
[2016-10-25] MEDS: FAT EMULSIONS 20% 250 ML PREMIX INFUS.BAG IV SCH (22:50)
[2016-10-26] MEDS: ALBUTEROL SO4 0.083% IH SOL 2.5 MG/3 ML VIAL.NEB. NEB PRN (05:00)
[2016-10-26 06:25] LABS: MCH 27.8 pg (25.7-33.7); MCHC 33.1 g/dl (32.0-35.9); MEAN PLT VOLUME 8.1 fl (7.5-11.1); PLATELET COUNT 266 K/MM3 (134-434); RDW 13.9 % (11.9-15.9); WHITE BLOOD COUNT 10.5 K/mm3 (4.0-10.0)
[2016-10-26] MEDS: HEPARIN NA (PORCINE) 5,000 UNITS/ML 1ML VIAL SQ SCH ×3 (06:25→22:30)
[2016-10-26 06:47] LABS: ALBUMIN 2.6 g/dl (3.4-5.0); ANION GAP 12 (8-16); CALCIUM 9.1 mg/dL (8.5-10.1); CO2 27 mmol/L (21-32); GLUCOSE,RANDOM 125 mg/dL (74-106)
[2016-10-26 06:53] LABS: ALK PHOS 73 U/L (45-117); BILIRUBIN,TOTAL 1.5 mg/dL (0.2-1.0); CREATININE 0.8 mg/dL (0.7-1.3); MAGNESIUM 1.6 mg/dL (1.8-2.4); PHOSPHOROUS 2.5 mg/dL (2.5-4.9); SGOT/AST 48 U/L (15-37); SGPT/ALT 36 U/L (12-78); TOT PROT 5.5 g/dl (6.4-8.2)
[2016-10-26] MEDS: LABETALOL HCL 200 MG TABLET (FP) PO SCH (10:24)
[2016-10-26] MEDS: CLOPIDOGREL BISULFATE 75 MG TABLET (FP) PO SCH (10:24)
[2016-10-26] MEDS: amLODIPine BESYLATE 2.5 MG TABLET (FP) PO SCH (10:24)
--- NOTE | 2016-10-26 10:27 | PN ---
Progress Note, Physician History of Present Illness: 81 year old man with a history of HTN, HLD, COPD, CVA, AAA admitted with abdominal discomfort and constipation concerning for SBO. Pt seen and examined today in nad. He states that he had multiple small BM's yesterday and overnight. denies any current abd pain. denies chest pain, sob, palpitations. no pnd, orthopnea, or LE edema. NG tube in place. 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 Dr Alcazar PCI LCx 09/20/2014 Dr Alcazar Medical History Reviewed Condition Date Treating Physician Comments Claudication, intermittent HTN Hyperlipidemia TIA/CVA - Current Medication List Current Medications: Active Medications Aclidinium [place] (Tudorza -) 1 puff IH BID [facility] Last Admin: 10/25/16 21:58 Dose: 1 puff Albuterol Sulfate (Ventolin 0.083% Nebulizer Soln -) 1 amp NEB Q4H PRN PRN Reason: SHORT OF BREATH/WHEEZING Last Admin: 10/26/16 05:00 Dose: 1 amp Amlodipine Besylate (Norvasc -) 2.5 mg PO DAILY [facility] Last Admin: 10/25/16 09:28 Dose: 2.5 mg Atorvastatin Calcium (Lipitor -) 40 mg PO HS [facility] Last Admin: 10/25/16 21:58 Dose: 40 mg Clopidogrel Bisulfate (Plavix -) 75 mg PO DAILY [facility] Last Admin: 10/25/16 09:27 Dose: 75 mg Fat Emulsion Intravenous (Intralipid -) 250 ml IV DAILY@2200 [facility] Last Admin: 10/25/16 22:50 Dose: 250 ml Heparin Sodium (Porcine) (Heparin -) 5,000 unit SQ TID [facility] Last Admin: 10/26/16 06:25 Dose: 5,000 unit Pantoprazole Sodium (Protonix 40mg Ivpb (Pre-Docked)) 100 mls @ 200 mls/hr IVPB DAILY [facility] Last Admin: 10/25/16 09:28 Dose: 200 mls/hr Amino Acids (Clinimix -) 1,000 mls @ 65 mls/hr IV Q15H [facility] Last Admin: 10/25/16 23:00 Dose: Not Given Labetalol HCl (Normodyne -) 200 mg PO BID [facility] Last Admin: 10/25/16 21:58 Dose: 200 mg Metoprolol Tartrate (Lopressor Injection -) 2.5 mg IVPUSH Q4H PRN PRN Reason: HYPERTENSION Last Admin: 10/23/16 17:15 Dose: 2.5 mg Multivitamins/Minerals (Infuvite Adult -) 10 ml IV Q24H [facility] Last Admin: 10/25/16 17:26 Dose: 10 ml Ondansetron HCl (Zofran Injection) 8 mg IVPB Q6H PRN PRN Reason: NAUSEA AND/OR VOMITING Last Admin: 10/23/16 17:43 Dose: 8 mg Oxycodone HCl (Roxicodone -) 5 mg PO Q6H PRN PRN Reason: PAIN Last Admin: 10/24/16 22:11 Dose: 5 mg - Objective Vital Signs: Vital Signs Temperature 98 F 10/26/16 06:00 Pulse Rate 84 10/26/16 06:00 Respiratory Rate 18 10/26/16 08:12 Blood Pressure 106/79 10/26/16 06:00 O2 Sat by Pulse Oximetry (%) 96 10/25/16 20:28 Eyes: Yes: WNL, Conjunctiva Clear, EOM Intact HENT: Yes: WNL, Atraumatic, Normocephalic Neck: Yes: WNL, Supple, Trachea Midline Cardiovascular: Yes: Pulse Irregular, S1, S2 Respiratory: Yes: WNL, Regular, CTA Bilaterally Gastrointestinal: Yes: WNL, Normal Bowel Sounds Genitourinary: Yes: WNL Musculoskeletal: Yes: WNL Extremities: Yes: WNL Edema: No Integumentary: Yes: WNL Neurological: Yes: WNL, Alert, Oriented ...Motor Strength: WNL Psychiatric: Yes: WNL Labs: CBC, BMP 10/26/16 05:10 10/26/16 05:10 Assessment/Plan s/p small bowel resection with tumor mesenteric artery stenosis PAD ASHD s/p PCI LCx 09/20/2014 HTN Hyperlipidemia TIA/CVA Plan as per surgery and ICU team cont plavix PO lopressor lasix prn PAF/MAT check ekg consider AC if ok with syrgery condition is guarded will f/u CC time 35 min
[2016-10-26] MEDS: ACLIDINIUM BROMIDE 400 MCG/INH AERO.POWD IH SCH (10:30)
[2016-10-26] MEDS: PANTOPRAZOLE SODIUM 100 ML IVPB SCH (10:30)
--- NOTE | 2016-10-26 13:21 | EKG ---
Test Reason : Blood Pressure : / mmHG Vent. Rate : 093 BPM Atrial Rate : 093 BPM P-R Int : 180 ms QRS Dur : 080 ms QT Int : 380 ms P-R-T Axes : 070 -24 038 degrees QTc Int : 472 ms SINUS RHYTHM WITH MARKED SINUS ARRHYTHMIA WITH OCCASIONAL PREMATURE VENTRICULAR COMPLEXES AND PREMATURE ATRIAL COMPLEXES INFERIOR INFARCT (CITED ON OR BEFORE 24-OCT-2016) POSSIBLE ANTEROLATERAL INFARCT , AGE UNDETERMINED ABNORMAL ECG WHEN COMPARED WITH ECG OF 24-OCT-2016 10:17, NO SIGNIFICANT CHANGE WAS FOUND Confirmed by JOEY TIM MD ([id number]) on 10/26/2016 1:20:41 PM Referred By: DIEGO MCCORMICK Confirmed By:JOEY TIM MD
[2016-10-26] MEDS ORDERED: MAGNESIUM SULF 50% (8.12 MEQ/2 ML-1 GM VIAL) IVPB ONE (13:24)
[2016-10-26] MEDS ORDERED: POTASSIUM CHLORIDE TABS 20 MEQ TABLET.ER (FP) PO ONE ×2 (13:24→14:33)
--- NOTE | 2016-10-26 13:33 | PN ---
Progress Note (short form) - Note Progress Note: surgery pt seen and examined. feel well. not hungry. had bm. afebrile abd- soft, nt, incision clean Plan- advance to regular diet. ok to fully anticoagulate. will correct mag and k. oob. concern for failure to thrive but hopefully will improve.
--- NOTE | 2016-10-26 13:33 | PN ---
Teaching Attending Note Name of Resident: Kayleigh Ibrahim ATTENDING PHYSICIAN STATEMENT I saw and evaluated the patient. I reviewed the resident's note and discussed the case with the resident. I agree with the resident's findings and plan as documented. SUBJECTIVE: Patient seen and examined in the ICU. Awake and alert. (+) Mild abdominal discomfort. Was able to tolerate some PO intake. No flatus or BM. Noted electrolyte imbalance. Intake & Output 10/23/16 10/24/16 10/25/16 10/26/16 23:59 23:59 23:59 23:59 Intake Total 2630 3610 2140 800 Output Total 400 1000 100 Balance 2230 3610 1140 700 Weight 127 lb 6.835 oz 129 lb 4.8 oz 134 lb 8 oz 136 lb 12.8 oz Last Vital Signs Temp Pulse Resp BP Pulse Ox 97.8 F 98 H 22 119/82 96 10/26/16 10:00 10/26/16 12:00 10/26/16 12:00 10/26/16 12:00 10/25/16 20:28 Active Medications Aclidinium [place] (Tudorza -) 1 puff IH BID [facility] Last Admin: 10/26/16 10:30 Dose: 1 puff Albuterol Sulfate (Ventolin 0.083% Nebulizer Soln -) 1 amp NEB Q4H PRN PRN Reason: SHORT OF BREATH/WHEEZING Last Admin: 10/26/16 05:00 Dose: 1 amp Amlodipine Besylate (Norvasc -) 2.5 mg PO DAILY [facility] Last Admin: 10/26/16 10:24 Dose: 2.5 mg Atorvastatin Calcium (Lipitor -) 40 mg PO HS [facility] Last Admin: 10/25/16 21:58 Dose: 40 mg Clopidogrel Bisulfate (Plavix -) 75 mg PO DAILY [facility] Last Admin: 10/26/16 10:24 Dose: 75 mg Fat Emulsion Intravenous (Intralipid -) 250 ml IV DAILY@2200 [facility] Last Admin: 10/25/16 22:50 Dose: 250 ml Heparin Sodium (Porcine) (Heparin -) 5,000 unit SQ TID [facility] Last Admin: 10/26/16 06:25 Dose: 5,000 unit Pantoprazole Sodium (Protonix 40mg Ivpb (Pre-Docked)) 100 mls @ 200 mls/hr IVPB DAILY [facility] Last Admin: 10/26/16 10:30 Dose: 200 mls/hr Amino Acids (Clinimix -) 1,000 mls @ 65 mls/hr IV Q15H [facility] Last Admin: 10/25/16 23:00 Dose: Not Given Labetalol HCl (Normodyne -) 200 mg PO BID [facility] Last Admin: 10/26/16 10:24 Dose: 200 mg Metoprolol Tartrate (Lopressor Injection -) 2.5 mg IVPUSH Q4H PRN PRN Reason: HYPERTENSION Last Admin: 10/23/16 17:15 Dose: 2.5 mg Multivitamins/Minerals (Infuvite Adult -) 10 ml IV Q24H [facility] Last Admin: 10/25/16 17:26 Dose: 10 ml Ondansetron HCl (Zofran Injection) 8 mg IVPB Q6H PRN PRN Reason: NAUSEA AND/OR VOMITING Last Admin: 10/23/16 17:43 Dose: 8 mg Oxycodone HCl (Roxicodone -) 5 mg PO Q6H PRN PRN Reason: PAIN Last Admin: 10/24/16 22:11 Dose: 5 mg OBJECTIVE: Gen: Awake, mildly confused Heart: RRR Lung: decreased breath sounds at the bases Abd: soft, (+) BS, appropriately tender Ext: no edema Laboratory Results - last 24 hr 10/26/16 10/26/16 05:10 05:10 WBC 10.5 H RBC 4.83 Hgb 13.4 Hct 40.6 MCV 84.0 MCHC 33.1 RDW 13.9 Plt Count 266 MPV 8.1 Sodium 135 L Potassium 3.3 L Chloride 96 L Carbon Dioxide 27 Anion Gap 12 BUN 32 H Creatinine 0.8 Creat Clearance w eGFR > 60 Random Glucose 125 H D Calcium 9.1 Phosphorus 2.5 Magnesium 1.6 L Total Bilirubin 1.5 H AST 48 H ALT 36 D Alkaline Phosphatase 73 Total Protein 5.5 L Albumin 2.6 L ASSESSMENT AND PLAN: Pneumoatosis Intestinalis resolved 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
--- NOTE | 2016-10-26 14:31 | PN ---
Physical Exam: SUBJECTIVE: Patient seen and examined. He is doing well today. He has good appetite and is complaining of mild abdominal pain. OBJECTIVE: Vital Signs Period Temp Pulse Resp BP Sys/Hernandez Pulse Ox Last 24 Hr 97.7 F-98.4 F 71-99 14-22 99-159/66-89 96 GENERAL: The patient is awake, alert, and fully oriented, in no acute distress. HEAD: Normal with no signs of trauma. EYES: extraocular movements intact, sclera anicteric, conjunctiva clear. ENT: oropharynx clear without exudates, moist mucous membranes. NECK: Trachea midline, full range of motion, supple. LUNGS: clear to auscultation bilaterally, no wheezes, no crackles, no accessory muscle use. HEART: Regular rate and rhythm, S1, S2 without murmur, rub or gallop. ABDOMEN: Soft, nondistended, hypoactive bowel sounds, tenderness and guarding, longitudinal scar in mid abdomen, well healing, no drainage, erythema. EXTREMITIES: warm, well-perfused, no edema. NEUROLOGICAL: No facial asymmetry, normal speech, gait not observed. PSYCH: Normal mood, normal affect. SKIN: Warm, dry, normal turgor, no rashes. Laboratory Results - last 24 hr 10/26/16 10/26/16 05:10 05:10 WBC 10.5 H RBC 4.83 Hgb 13.4 Hct 40.6 MCV 84.0 MCHC 33.1 RDW 13.9 Plt Count 266 MPV 8.1 Sodium 135 L Potassium 3.3 L Chloride 96 L Carbon Dioxide 27 Anion Gap 12 BUN 32 H Creatinine 0.8 Creat Clearance w eGFR > 60 Random Glucose 125 H D Calcium 9.1 Phosphorus 2.5 Magnesium 1.6 L Total Bilirubin 1.5 H AST 48 H ALT 36 D Alkaline Phosphatase 73 Total Protein 5.5 L Albumin 2.6 L Active Medications Generic Name Dose Route Start Last Admin Trade Name Freq PRN Reason Stop Dose Admin Aclidinium [place] 1 puff 10/21/16 22:00 10/26/16 10:30 Tudorza - IH 1 puff BID [facility] Administration Albuterol Sulfate 1 amp 10/25/16 05:24 10/26/16 05:00 Ventolin 0.083% Nebulizer Soln - NEB 1 amp Q4H PRN Administration SHORT OF BREATH/WHEEZING Amlodipine Besylate 2.5 mg 06/18/17 10:00 10/26/16 10:24 Norvasc - PO 2.5 mg DAILY [facility] Administration Atorvastatin Calcium 40 mg 10/21/16 22:00 10/25/16 21:58 Lipitor - PO 40 mg HS [facility] Administration Clopidogrel Bisulfate 75 mg 10/24/16 10:00 10/26/16 10:24 Plavix - PO 75 mg DAILY [facility] Administration Heparin Sodium (Porcine) 5,000 unit 10/21/16 22:00 10/26/16 06:25 Heparin - SQ 5,000 unit TID [facility] Administration Pantoprazole Sodium 100 mls @ 200 mls/hr 10/22/16 10:00 10/26/16 10:30 Protonix 40mg Ivpb (Pre-Docked) IVPB 200 mls/hr DAILY [facility] Administration Labetalol HCl 200 mg 10/24/16 12:34 10/26/16 10:24 Normodyne - PO 200 mg BID [facility] Administration Metoprolol Tartrate 2.5 mg 10/21/16 15:14 10/23/16 17:15 Lopressor Injection - IVPUSH 2.5 mg Q4H PRN Administration HYPERTENSION Multivitamins/Minerals 10 ml 10/22/16 17:45 10/25/16 17:26 Infuvite Adult - IV 10 ml Q24H [facility] Administration Ondansetron HCl 8 mg 10/21/16 15:14 10/23/16 17:43 Zofran Injection IVPB 8 mg Q6H PRN Administration NAUSEA AND/OR VOMITING Oxycodone HCl 5 mg 10/24/16 16:19 10/24/16 22:11 Roxicodone - PO 5 mg Q6H PRN Administration PAIN CTA abdomen/pelvis: 1. Patchy right lower lobe consolidation. 2. 3.4 cm distal AAA with extensive atherosclerotic disease involving the distal abdominal aorta , iliac and femoral arteries. 3. Patent mesenteric vasculature with extensive calcified plaque within the proximal SMA. 4. Improved small bowel dilatation since 10/18/2016. 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 5. Clinical correlation and follow-up recommended. Please see above discussion. ORIGINAL REPORT Abdomen: Small bowel obstruction ASSESSMENT/PLAN: 81yom with PMHx of HTN, CHF, CVA, TIA, COPD and HLD who presented to ED on 10/16 with c/o of abd pain,vomiting and belching up of food x 4days and constipation. 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 OR deferred d/t pt on plavix and medical comorbidities. 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: -d/p ex-laparotomy, POD# 5 -tumor in small bowel removed and sent for pathology, no results yet -clear liquids -will stop Clinimix -f/u surgery recommendations -continue Roxicodone -abx stopped Hypertension/CAD: -cont Lopressor and Labetalol -cont Norvasc -f/u cardiology recommendations -cardiac monitoring -cont Plavix tomorrow Hypophosphatemia and hypokalemia: -phosphorus normalized, will repleate K HDL: -cont Lipitor DVT PPX: cont heparin SQ F/E/N no/low K/clear liquids Disposition: monitor in ICU Problem List - Problems (1) Pneumatosis intestinalis Code(s): K63.89 - OTHER SPECIFIED DISEASES OF INTESTINE (2) SBO (small bowel obstruction) Code(s): K56.69 - OTHER INTESTINAL OBSTRUCTION (3) Abdominal aortic aneurysm (AAA) Code(s): I71.4 - ABDOMINAL AORTIC ANEURYSM, WITHOUT RUPTURE (4) CVA (cerebral infarction) Code(s): I63.9 - CEREBRAL INFARCTION, UNSPECIFIED (5) Chronic obstructive pulmonary disease Code(s): J44.9 - CHRONIC OBSTRUCTIVE PULMONARY DISEASE, UNSPECIFIED (6) HTN (hypertension) Code(s): I10 - ESSENTIAL (PRIMARY) HYPERTENSION Visit type - Emergency Visit Emergency Visit: Yes ED Registration Date: 10/17/16 Care time: The patient presented to the Emergency Department on the above date and was hospitalized for further evaluation of their emergent condition. - New Patient This patient is new to me today: No - Critical Care Critical Care patient: Yes Total Critical Care Time (in minutes): 40 Critical Care Statement: The care of this patient involved high complexity decision making to prevent further life threatening deterioration of the patient 's condition and/or to evalute & treat vital organ system(s) failure or risk of failure.
--- NOTE | 2016-10-26 15:08 | PATH ---
Surgical Pathology Report Patient Name: TOMASZ FRAUSTO [facility]. Rec. #: [id number] /Age/Gender: 1935 (Age: 81) / M Account: [id number] Location: ICU RF TECHNICIAN Taken: 10/21/2016 Received: 10/22/2016 Reported: 10/26/2016 Physicians: Rick Ragland M.D. 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 NO MALIGNANCY IDENTIFIED. RESECTION MARGINS APPEAR VIABLE. Comment: Immunohistochemical stains performed at [place], [place] ([id number]) on block #4 and interpreted at [facility] show the following: CD34 and CD31 the immunostain highlight blood vessels, D2-40 highlights lymphatic vessels, SMA and SMM-HC highlight hyperplastic smooth muscle, CD117(c-kit) is reactive in mast cells; DOG-1 is negative. These results are supportive of the interpretation above. Electronically Signed Lawrence Jane M.D. Gross Description Received in formalin is a 17.5 cm portion of small bowel with a suture marking the radiographic finding, per the surgeon. The specimen displays 2 open mucosal margins and moderate attached fat. The serosa is alvarez-hicks and smooth with a focal stricture. There is a 1.5 cm in length circumferential area of flattened mucosal folds in the area of the stricture. The bowel wall is thickened in the area of the stricture. The remaining mucosa is alvarez-green with normal folds. Veneer Sander sections are submitted in 8 cassettes as follows: 7-0-lfshprcwqtjm mucosal margins; 3-mesenteric margin; 4-2-wobbafcep folds in area of stricture; 1-0-ipefinhwjj ileum. 10/22/201610/22/2016
[2016-10-26] MEDS ORDERED: MAGNESIUM SULF 50% (8.12 MEQ/2 ML-1 GM VIAL) ONE (16:28)
--- NOTE | 2016-10-26 17:30 | PN ---
Progress Note, Physician History of Present Illness: Pt. in ICU, was seen and examined. Post op day 5 NGT was removed ( by surgeon); pt now on liquid diet Pt. with abd discomfort. Pt.'s cough is improving. Pt. w/o N, V. Pt w/o CP, SOB, Palp. - Current Medication List Current Medications: Active Medications Aclidinium [place] (Tudorza -) 1 puff IH BID [facility] Last Admin: 10/26/16 10:30 Dose: 1 puff Albuterol Sulfate (Ventolin 0.083% Nebulizer Soln -) 1 amp NEB Q4H PRN PRN Reason: SHORT OF BREATH/WHEEZING Last Admin: 10/26/16 05:00 Dose: 1 amp Amlodipine Besylate (Norvasc -) 2.5 mg PO DAILY [facility] Last Admin: 10/26/16 10:24 Dose: 2.5 mg Atorvastatin Calcium (Lipitor -) 40 mg PO HS [facility] Last Admin: 10/25/16 21:58 Dose: 40 mg Clopidogrel Bisulfate (Plavix -) 75 mg PO DAILY [facility] Last Admin: 10/26/16 10:24 Dose: 75 mg Heparin Sodium (Porcine) (Heparin -) 5,000 unit SQ TID [facility] Last Admin: 10/26/16 16:39 Dose: 5,000 unit Pantoprazole Sodium (Protonix 40mg Ivpb (Pre-Docked)) 100 mls @ 200 mls/hr IVPB DAILY [facility] Last Admin: 10/26/16 10:30 Dose: 200 mls/hr Labetalol HCl (Normodyne -) 200 mg PO BID [facility] Last Admin: 10/26/16 10:24 Dose: 200 mg Metoprolol Tartrate (Lopressor Injection -) 2.5 mg IVPUSH Q4H PRN PRN Reason: HYPERTENSION Last Admin: 10/23/16 17:15 Dose: 2.5 mg Ondansetron HCl (Zofran Injection) 8 mg IVPB Q6H PRN PRN Reason: NAUSEA AND/OR VOMITING Last Admin: 10/23/16 17:43 Dose: 8 mg Oxycodone HCl (Roxicodone -) 5 mg PO Q6H PRN PRN Reason: PAIN Last Admin: 10/24/16 22:11 Dose: 5 mg - Objective Vital Signs: Vital Signs Temperature 98 F 10/26/16 16:00 Pulse Rate 105 H 10/26/16 16:00 Respiratory Rate 19 10/26/16 16:00 Blood Pressure 154/89 10/26/16 16:00 O2 Sat by Pulse Oximetry (%) 96 10/25/16 20:28 Constitutional: Yes: No Distress, Calm Cardiovascular: Yes: Regular Rate and Rhythm, S1, S2 Respiratory: Yes: Regular, CTA Bilaterally, Rales Gastrointestinal: Yes: Soft, Hypoactive Bowel Sounds, Tenderness (along surgical site) Edema: No Labs: CBC, BMP 10/26/16 05:10 10/26/16 05:10 Problem List - Problems (1) Small bowel mass Assessment/Plan: noticed on the latest CT scan. s/p SB tumor resection Code(s): K63.89 - OTHER SPECIFIED DISEASES OF INTESTINE (2) SBO (small bowel obstruction) Code(s): K56.69 - OTHER INTESTINAL OBSTRUCTION (3) Pneumatosis intestinalis Code(s): K63.89 - OTHER SPECIFIED DISEASES OF INTESTINE (4) CHF (congestive heart failure) Code(s): I50.9 - HEART FAILURE, UNSPECIFIED (5) CVA (cerebral infarction) Code(s): I63.9 - CEREBRAL INFARCTION, UNSPECIFIED (6) Chronic obstructive pulmonary disease Code(s): J44.9 - CHRONIC OBSTRUCTIVE PULMONARY DISEASE, UNSPECIFIED (7) Hyperlipidemia Code(s): E78.5 - HYPERLIPIDEMIA, UNSPECIFIED (8) Hypokalemia due to inadequate potassium intake Assessment/Plan: to replete K Code(s): E87.6 - HYPOKALEMIA (9) Hypophosphatemia Code(s): E83.39 - OTHER DISORDERS OF PHOSPHORUS METABOLISM (10) HTN (hypertension) Code(s): I10 - ESSENTIAL (PRIMARY) HYPERTENSION (11) Hypomagnesemia Assessment/Plan: replete; monitor Mg Code(s): E83.42 - HYPOMAGNESEMIA Assessment/Plan GI and surgical f/u appreciated post OP day 5 Pt. wants his to make medical decisions if he cannot; both daughter agrees with pt. All family's questions were answered Pt. is hemodynamically stable. Family is at bedside. I d/w pt. and his importance of PO intake; all questions were answered. Case was d/w Dr. Dominguez AM labs Prognosis: reserved Case was d/w pt.'s ICU nurse Time spent for managing pt.'s care: over 45 minutes
[2016-10-26] MEDS: KCL 10 MEQ IVPB 100 ML IVPB SCH ×2 (18:57→20:00)
[2016-10-27] MEDS: ACLIDINIUM BROMIDE 400 MCG/INH AERO.POWD IH SCH ×3 (01:01→22:06)
[2016-10-27] MEDS: LABETALOL HCL 200 MG TABLET (FP) PO SCH (01:01)
[2016-10-27] MEDS: ATORVASTATIN CA 40 MG TABLET (FP) PO SCH ×2 (01:01→22:06)
[2016-10-27] MEDS: HEPARIN NA (PORCINE) 5,000 UNITS/ML 1ML VIAL SQ SCH ×3 (06:28→22:05)
[2016-10-27 06:31] LABS: MCH 27.9 pg (25.7-33.7); MCHC 33.3 g/dl (32.0-35.9); MEAN CELL VOLUME 83.9 fl (80-96); MEAN PLT VOLUME 8.1 fl (7.5-11.1); PLATELET COUNT 280 K/MM3 (134-434)
[2016-10-27 06:59] LABS: ALBUMIN 2.6 g/dl (3.4-5.0); ANION GAP 9 (8-16); BILIRUBIN,TOTAL 1.5 mg/dL (0.2-1.0); CALCIUM 9.3 mg/dL (8.5-10.1); CO2 26 mmol/L (21-32); CREATININE 0.8 mg/dL (0.7-1.3); GLUCOSE,RANDOM 105 mg/dL (74-106); SGOT/AST 53 U/L (15-37); SGPT/ALT 45 U/L (12-78); TOT PROT 5.7 g/dl (6.4-8.2)
[2016-10-27 07:00] LABS: ALK PHOS 79 U/L (45-117)
--- NOTE | 2016-10-27 09:30 | PN ---
Progress Note, Physician Chief Complaint: Pt is confused, though reportedly less so than yesterday; no pain or dyspnea; + cough with whitish, creamy phlegm. History of Present Illness: 81-year-old male with no history of abdominal surgery presents to the emergency department complaining of periumbilical 6/10 sharp nonradiating intermittent discomfort with nausea no vomiting, fever, chills, chest pain, shortness of breath, flank pains, urinary symptoms. There are no alleviating or exacerbating factors. Last bowel movement 4 days ago. Timing/Duration: reports: intermittent Quality: reports: moderate - Current Medication List Current Medications: Active Medications Aclidinium [place] (Tudorza -) 1 puff IH BID [facility] Last Admin: 10/27/16 01:01 Dose: 1 puff Albuterol Sulfate (Ventolin 0.083% Nebulizer Soln -) 1 amp NEB Q4H PRN PRN Reason: SHORT OF BREATH/WHEEZING Last Admin: 10/26/16 05:00 Dose: 1 amp Amlodipine Besylate (Norvasc -) 2.5 mg PO DAILY [facility] Last Admin: 10/26/16 10:24 Dose: 2.5 mg Atorvastatin Calcium (Lipitor -) 40 mg PO HS [facility] Last Admin: 10/27/16 01:01 Dose: 40 mg Clopidogrel Bisulfate (Plavix -) 75 mg PO DAILY [facility] Last Admin: 10/26/16 10:24 Dose: 75 mg Heparin Sodium (Porcine) (Heparin -) 5,000 unit SQ TID [facility] Last Admin: 10/27/16 06:28 Dose: Not Given Pantoprazole Sodium (Protonix 40mg Ivpb (Pre-Docked)) 100 mls @ 200 mls/hr IVPB DAILY [facility] Last Admin: 10/26/16 10:30 Dose: 200 mls/hr Labetalol HCl (Normodyne -) 200 mg PO BID [facility] Last Admin: 10/27/16 01:01 Dose: 200 mg Metoprolol Tartrate (Lopressor Injection -) 2.5 mg IVPUSH Q4H PRN PRN Reason: HYPERTENSION Last Admin: 10/23/16 17:15 Dose: 2.5 mg Ondansetron HCl (Zofran Injection) 8 mg IVPB Q6H PRN PRN Reason: NAUSEA AND/OR VOMITING Last Admin: 10/23/16 17:43 Dose: 8 mg Oxycodone HCl (Roxicodone -) 5 mg PO Q6H PRN PRN Reason: PAIN Last Admin: 10/24/16 22:11 Dose: 5 mg - Objective Vital Signs: Vital Signs Temperature 98.2 F 10/27/16 02:00 Pulse Rate 85 10/27/16 08:00 Respiratory Rate 21 10/27/16 09:00 Blood Pressure 145/80 10/27/16 08:00 O2 Sat by Pulse Oximetry (%) 96 10/25/16 20:28 Constitutional: Yes: Anxious Eyes: Yes: WNL HENT: Yes: WNL Neck: Yes: WNL Cardiovascular: Yes: Pulse Irregular Respiratory: Yes: Regular Gastrointestinal: Yes: Soft ...Rectal Exam: Yes: Deferred Genitourinary: No: Anuria Musculoskeletal: Yes: Muscle Weakness Extremities: Yes: Cool Edema: No Peripheral Pulses WNL: Yes Integumentary: Yes: Incision Wound/Incision: Yes: Donna Intact Neurological: Yes: Alert, Confusion Labs: CBC, BMP 10/27/16 05:15 10/27/16 05:15 Abnormal Lab Results 10/27/16 05:15 BUN 28 H Total Bilirubin 1.5 H AST 53 H Total Protein 5.7 L Albumin 2.6 L - ....Imaging Cat Scan: Report Reviewed (head CT: no acute pathology) Other: Image Reviewed (telemetry: NSR; occasional APCs and PVCS; brief run of PSVT) Problem List - Problems (1) Diastolic CHF Code(s): I50.30 - UNSPECIFIED DIASTOLIC (CONGESTIVE) HEART FAILURE (2) Hyperlipidemia Code(s): E78.5 - HYPERLIPIDEMIA, UNSPECIFIED (3) PSVT (paroxysmal supraventricular tachycardia) Assessment/Plan: Change labetolol to metoprolol ER (start at 200 mg daily, and increase as needed for HR and BP). Increase amlodipine if blood pressure remains elevated. ECHO 05/2016: normal LVEF. Keep K 4-4.5; f/u Mg, and keep 2-2.3.keep PO4 2.5-3.0. F/u EKG. Code(s): I47.1 - SUPRAVENTRICULAR TACHYCARDIA (4) SBO (small bowel obstruction) Assessment/Plan: f/u with surgeon. Code(s): K56.69 - OTHER INTESTINAL OBSTRUCTION (5) Small bowel mass Code(s): K63.89 - OTHER SPECIFIED DISEASES OF INTESTINE (6) HTN (hypertension) Assessment/Plan: Now on metoprolol ER for HTN and PSVT. On amlodipine.. Serial BPs. Code(s): I10 - ESSENTIAL (PRIMARY) HYPERTENSION (7) Weakness Code(s): R53.1 - WEAKNESS (8) Confusion Assessment/Plan: head CT: no acute pathology. F/u with neurologist. Code(s): R41.0 - DISORIENTATION, UNSPECIFIED Assessment/Plan cc time spent reviewing chart, examining pt, and writing note: 45 minutes.
[2016-10-27] MEDS ORDERED: METOPROLOL SUCCINATE 100 MG TAB.SR.24H (FP) PO SCH (10:00)
[2016-10-27] MEDS: CLOPIDOGREL BISULFATE 75 MG TABLET (FP) PO SCH (10:11)
[2016-10-27] MEDS: PANTOPRAZOLE SODIUM 100 ML IVPB SCH (10:11)
[2016-10-27] MEDS: amLODIPine BESYLATE 2.5 MG TABLET (FP) PO SCH (10:11)
[2016-10-27 10:25] LABS: MAGNESIUM 2.2 mg/dL (1.8-2.4)
--- NOTE | 2016-10-27 12:17 | PN ---
Teaching Attending Note Name of Resident: Kayleigh Ibrahim ATTENDING PHYSICIAN STATEMENT I saw and evaluated the patient. I reviewed the resident's note and discussed the case with the resident. I agree with the resident's findings and plan as documented. SUBJECTIVE: Patient seen and examined in the ICU. Awake and alert. (+) Mild abdominal discomfort. Noted that he fell OOB yesterday. CT was (-) negative. Refusing PO intake. (+) Nausea Intake & Output 10/24/16 10/25/16 10/26/16 10/27/16 23:59 23:59 23:59 23:59 Intake Total 3610 2140 1100 Output Total 1000 100 Balance 3610 1140 1000 Weight 129 lb 4.8 oz 134 lb 8 oz 136 lb 12.8 oz 132 lb 11.492 oz Last Vital Signs Temp Pulse Resp BP Pulse Ox 98.6 F 81 29 H 143/79 94 L 10/27/16 10:00 10/27/16 10:00 10/27/16 10:00 10/27/16 10:00 10/27/16 09:41 Active Medications Aclidinium [place] (Tudorza -) 1 puff IH BID [facility] Last Admin: 10/27/16 10:12 Dose: 1 puff Albuterol Sulfate (Ventolin 0.083% Nebulizer Soln -) 1 amp NEB Q4H PRN PRN Reason: SHORT OF BREATH/WHEEZING Last Admin: 10/26/16 05:00 Dose: 1 amp Amlodipine Besylate (Norvasc -) 2.5 mg PO DAILY [facility] Last Admin: 10/27/16 10:11 Dose: 2.5 mg Atorvastatin Calcium (Lipitor -) 40 mg PO HS [facility] Last Admin: 10/27/16 01:01 Dose: 40 mg Clopidogrel Bisulfate (Plavix -) 75 mg PO DAILY [facility] Last Admin: 10/27/16 10:11 Dose: 75 mg Heparin Sodium (Porcine) (Heparin -) 5,000 unit SQ TID [facility] Last Admin: 10/27/16 06:28 Dose: Not Given Pantoprazole Sodium (Protonix 40mg Ivpb (Pre-Docked)) 100 mls @ 200 mls/hr IVPB DAILY [facility] Last Admin: 10/27/16 10:11 Dose: 200 mls/hr Metoprolol Succinate (Toprol Xl -) 200 mg PO DAILY [facility] Metoprolol Tartrate (Lopressor Injection -) 2.5 mg IVPUSH Q4H PRN PRN Reason: HYPERTENSION Last Admin: 10/23/16 17:15 Dose: 2.5 mg Ondansetron HCl (Zofran Injection) 8 mg IVPB Q6H PRN PRN Reason: NAUSEA AND/OR VOMITING Last Admin: 10/23/16 17:43 Dose: 8 mg Oxycodone HCl (Roxicodone -) 5 mg PO Q6H PRN PRN Reason: PAIN Last Admin: 10/24/16 22:11 Dose: 5 mg OBJECTIVE: Gen: Awake, mildly confused Heart: RRR Lung: decreased breath sounds at the bases Abd: soft, (+) BS, appropriately tender Ext: no edema Laboratory Results - last 24 hr 10/27/16 10/27/16 05:15 05:15 WBC 10.0 RBC 4.84 Hgb 13.5 Hct 40.7 MCV 83.9 MCHC 33.3 RDW 14.0 Plt Count 280 MPV 8.1 Sodium 136 Potassium 3.9 Chloride 101 Carbon Dioxide 26 Anion Gap 9 BUN 28 H Creatinine 0.8 Creat Clearance w eGFR > 60 Random Glucose 105 Calcium 9.3 Magnesium 2.2 D Total Bilirubin 1.5 H AST 53 H ALT 45 D Alkaline Phosphatase 79 Total Protein 5.7 L Albumin 2.6 L ASSESSMENT AND PLAN: Pneumoatosis Intestinalis resolved 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
--- NOTE | 2016-10-27 14:36 | EKG ---
Test Reason : Blood Pressure : / mmHG Vent. Rate : 079 BPM Atrial Rate : 079 BPM P-R Int : 196 ms QRS Dur : 082 ms QT Int : 406 ms P-R-T Axes : 076 053 078 degrees QTc Int : 465 ms NORMAL SINUS RHYTHM POSSIBLE INFERIOR INFARCT (CITED ON OR BEFORE 24-OCT-2016) ABNORMAL ECG WHEN COMPARED WITH ECG OF 26-OCT-2016 11:21, PREMATURE VENTRICULAR COMPLEXES ARE NO LONGER PRESENT Confirmed by JOEY TIM MD ([id number]) on 10/27/2016 2:35:49 PM Referred By: Richard CASTELLANOS Confirmed By:JOEY TIM MD
--- NOTE | 2016-10-27 16:32 | PN ---
Physical Exam: SUBJECTIVE: Patient seen and examined. He is complaining of lack of appetite and abdominal discomfort. Overnight; the nurse reported that he fell and head CT was obtained. No documentation done. OBJECTIVE: Vital Signs Period Temp Pulse Resp BP Sys/Hernandez Pulse Ox Last 24 Hr 98 F-98.6 F 80-102 14-29 112-151/75-95 94 GENERAL: The patient is awake, alert, and fully oriented, in no acute distress. HEAD: Normal with no signs of trauma. EYES: extraocular movements intact, sclera anicteric, conjunctiva clear. ENT: oropharynx clear without exudates, moist mucous membranes. NECK: Trachea midline, full range of motion, supple. LUNGS: clear to auscultation bilaterally, no wheezes, no crackles, no accessory muscle use. HEART: Regular rate and rhythm, S1, S2 without murmur, rub or gallop. ABDOMEN: Soft, nondistended, hypoactive bowel sounds, tenderness and guarding, longitudinal scar in mid abdomen, well healing, no drainage, erythema. EXTREMITIES: warm, well-perfused, no edema. NEUROLOGICAL: No facial asymmetry, normal speech, gait not observed. PSYCH: Normal mood, normal affect. SKIN: Warm, dry, normal turgor, no rashes. Laboratory Results - last 24 hr 10/27/16 10/27/16 05:15 05:15 WBC 10.0 RBC 4.84 Hgb 13.5 Hct 40.7 MCV 83.9 MCHC 33.3 RDW 14.0 Plt Count 280 MPV 8.1 Sodium 136 Potassium 3.9 Chloride 101 Carbon Dioxide 26 Anion Gap 9 BUN 28 H Creatinine 0.8 Creat Clearance w eGFR > 60 Random Glucose 105 Calcium 9.3 Magnesium 2.2 D Total Bilirubin 1.5 H AST 53 H ALT 45 D Alkaline Phosphatase 79 Total Protein 5.7 L Albumin 2.6 L Active Medications Generic Name Dose Route Start Last Admin Trade Name Freq PRN Reason Stop Dose Admin Aclidinium [place] 1 puff 10/21/16 22:00 10/27/16 10:12 Tudorza - IH 1 puff BID [facility] Administration Albuterol Sulfate 1 amp 10/25/16 05:24 10/26/16 05:00 Ventolin 0.083% Nebulizer Soln - NEB 1 amp Q4H PRN Administration SHORT OF BREATH/WHEEZING Amlodipine Besylate 2.5 mg 10/25/16 10:00 10/27/16 10:11 Norvasc - PO 2.5 mg DAILY [facility] Administration Atorvastatin Calcium 40 mg 10/21/16 22:00 10/27/16 01:01 Lipitor - PO 40 mg HS [facility] Administration Clopidogrel Bisulfate 75 mg 10/24/16 10:00 10/27/16 10:11 Plavix - PO 75 mg DAILY [facility] Administration Heparin Sodium (Porcine) 5,000 unit 10/21/16 22:00 10/27/16 15:00 Heparin - SQ 5,000 unit TID [facility] Administration Pantoprazole Sodium 100 mls @ 200 mls/hr 10/22/16 10:00 10/27/16 10:11 Protonix 40mg Ivpb (Pre-Docked) IVPB 200 mls/hr DAILY [facility] Administration Dextrose 1,000 mls @ 42 mls/hr 10/27/16 16:15 D5w - IV .[id number] COUNTS INCLUDE 234 BEDS AT THE [facility] Metoprolol Succinate 200 mg 10/27/16 10:00 10/27/16 12:00 Toprol Xl - PO 200 mg DAILY [facility] Administration Metoprolol Tartrate 2.5 mg 10/21/16 15:14 10/23/16 17:15 Lopressor Injection - IVPUSH 2.5 mg Q4H PRN Administration HYPERTENSION [place] 0.004% Eye 1 each 10/27/16 22:00 Drops OU HS [facility] Systane Ultra Eye 1 each 10/27/16 22:00 Drops OU BID [facility] Ondansetron HCl 8 mg 10/21/16 15:14 10/23/16 17:43 Zofran Injection IVPB 8 mg Q6H PRN Administration NAUSEA AND/OR VOMITING Oxycodone HCl 5 mg 10/24/16 16:19 10/24/16 22:11 Roxicodone - PO 5 mg Q6H PRN Administration PAIN CTA abdomen/pelvis: 1. Patchy right lower lobe consolidation. 2. 3.4 cm distal AAA with extensive atherosclerotic disease involving the distal abdominal aorta , iliac and femoral arteries. 3. Patent mesenteric vasculature with extensive calcified plaque within the proximal SMA. 4. Improved small bowel dilatation since 10/18/2016. 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 5. Clinical correlation and follow-up recommended. Please see above discussion. ORIGINAL REPORT Abdomen: Small bowel obstruction ASSESSMENT/PLAN: 81yom with PMHx of HTN, CHF, CVA, TIA, COPD and HLD who presented to ED on 10/16 with c/o of abd pain,vomiting and belching up of food x 4days and constipation. 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 OR deferred d/t pt on plavix and medical comorbidities. 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: -d/p ex-laparotomy, POD# 6 -tumor in small bowel removed and sent for pathology, no results yet -clear liquids -D5 bc of poor oral intake -f/u surgery recommendations -continue Roxicodone -abx stopped Hypertension/CAD: -cont Lopressor and Labetalol -cont Norvasc -f/u cardiology recommendations -cardiac monitoring -cont Plavix tomorrow Hypophosphatemia and hypokalemia: -phosphorus normalized, will repleate K HDL: -cont Lipitor DVT PPX: cont heparin SQ F/E/N no/low K/clear liquids Disposition: transfer to med surg pending Problem List - Problems (1) Pneumatosis intestinalis Code(s): K63.89 - OTHER SPECIFIED DISEASES OF INTESTINE (2) SBO (small bowel obstruction) Code(s): K56.69 - OTHER INTESTINAL OBSTRUCTION (3) Abdominal aortic aneurysm (AAA) Code(s): I71.4 - ABDOMINAL AORTIC ANEURYSM, WITHOUT RUPTURE (4) CVA (cerebral infarction) Code(s): I63.9 - CEREBRAL INFARCTION, UNSPECIFIED (5) Chronic obstructive pulmonary disease Code(s): J44.9 - CHRONIC OBSTRUCTIVE PULMONARY DISEASE, UNSPECIFIED (6) HTN (hypertension) Code(s): I10 - ESSENTIAL (PRIMARY) HYPERTENSION Visit type - Emergency Visit Emergency Visit: Yes ED Registration Date: 10/17/16 Care time: The patient presented to the Emergency Department on the above date and was hospitalized for further evaluation of their emergent condition. - New Patient This patient is new to me today: No - Critical Care Critical Care patient: Yes Total Critical Care Time (in minutes): 40 Critical Care Statement: The care of this patient involved high complexity decision making to prevent further life threatening deterioration of the patient 's condition and/or to evalute & treat vital organ system(s) failure or risk of failure.
--- NOTE | 2016-10-27 16:36 | PN ---
Progress Note (short form) - Note Progress Note: surgery pt seen and examined. feel well. still not hungry. not eating much afebrile abd- soft, nt, incision clean, small ecchymosis Plan- regular diet. electrolytes corrected. ok to fully anticoagulate. concern for failure to thrive but hopefully will improve. needs tiffanie removed in 1-2 weeks.
[2016-10-27] MEDS ORDERED: PT OWN MED DRAWER 7, Y5N ONE (21:54)
[2016-10-27] MEDS: DEXTROSE 5%-WATER - 1,000 ML IV SCH (22:05)
[2016-10-27] MEDS: SYSTANE ULTRA EYE DROPS OU SCH (22:06)
[2016-10-27] MEDS: EYE OU SCH (22:06)
[2016-10-27] MEDS: TRAVATAN 0.004% OU SCH (22:06)
--- NOTE | 2016-10-27 22:09 | PN ---
Progress Note, Physician History of Present Illness: Pt in ICU, was seen and examined. Post op day 6 NGT was removed ( by surgeon); pt now on liquid diet Pt with abd discomfort on and off. Pt's cough is improving. Pt w/o fever, N, V. Pt w/o CP, SOB, Palp. Pt with lose stool few times per day. Pt was seen in AM. - Current Medication List Current Medications: Active Medications Aclidinium [place] (Tudorza -) 1 puff IH BID [facility] Last Admin: 10/27/16 10:12 Dose: 1 puff Albuterol Sulfate (Ventolin 0.083% Nebulizer Soln -) 1 amp NEB Q4H PRN PRN Reason: SHORT OF BREATH/WHEEZING Last Admin: 10/26/16 05:00 Dose: 1 amp Amlodipine Besylate (Norvasc -) 2.5 mg PO DAILY [facility] Last Admin: 10/27/16 10:11 Dose: 2.5 mg Atorvastatin Calcium (Lipitor -) 40 mg PO HS [facility] Last Admin: 10/27/16 01:01 Dose: 40 mg Clopidogrel Bisulfate (Plavix -) 75 mg PO DAILY [facility] Last Admin: 10/27/16 10:11 Dose: 75 mg Heparin Sodium (Porcine) (Heparin -) 5,000 unit SQ TID [facility] Last Admin: 10/27/16 15:00 Dose: 5,000 unit Pantoprazole Sodium (Protonix 40mg Ivpb (Pre-Docked)) 100 mls @ 200 mls/hr IVPB DAILY [facility] Last Admin: 10/27/16 10:11 Dose: 200 mls/hr Dextrose (D5w -) 1,000 mls @ 42 mls/hr IV ASDIR [facility] Metoprolol Succinate (Toprol Xl -) 200 mg PO DAILY [facility] Last Admin: 10/27/16 12:00 Dose: 200 mg Metoprolol Tartrate (Lopressor Injection -) 2.5 mg IVPUSH Q4H PRN PRN Reason: HYPERTENSION Last Admin: 10/23/16 17:15 Dose: 2.5 mg [place] 0.004% Eye (Drops) 1 each OU HS [facility] Systane Ultra Eye (Drops) 1 each OU BID [facility] Ondansetron HCl (Zofran Injection) 8 mg IVPB Q6H PRN PRN Reason: NAUSEA AND/OR VOMITING Last Admin: 10/23/16 17:43 Dose: 8 mg Oxycodone HCl (Roxicodone -) 5 mg PO Q6H PRN PRN Reason: PAIN Last Admin: 10/24/16 22:11 Dose: 5 mg - Objective Vital Signs: Vital Signs Temperature 97.8 F 10/27/16 18:00 Pulse Rate 80 10/27/16 21:59 Respiratory Rate 22 10/27/16 21:59 Blood Pressure 151/80 10/27/16 21:59 O2 Sat by Pulse Oximetry (%) 97 10/27/16 20:42 Constitutional: Yes: No Distress, Calm Cardiovascular: Yes: Regular Rate and Rhythm, S1, S2 Respiratory: Yes: Regular, Other (coarse BS). No: Rales Gastrointestinal: Yes: Normal Bowel Sounds, Soft, Tenderness (centered around incision site.). No: Tenderness, Rebound Wound/Incision: Yes: Sutures Intact, Lindstrom Intact Neurological: Yes: Alert, Oriented Labs: CBC, BMP 10/27/16 05:15 10/27/16 05:15 Problem List - Problems (1) Small bowel mass Code(s): K63.89 - OTHER SPECIFIED DISEASES OF INTESTINE (2) SBO (small bowel obstruction) Code(s): K56.69 - OTHER INTESTINAL OBSTRUCTION (3) Pneumatosis intestinalis Code(s): K63.89 - OTHER SPECIFIED DISEASES OF INTESTINE (4) CHF (congestive heart failure) Code(s): I50.9 - HEART FAILURE, UNSPECIFIED (5) CVA (cerebral infarction) Code(s): I63.9 - CEREBRAL INFARCTION, UNSPECIFIED (6) Chronic obstructive pulmonary disease Code(s): J44.9 - CHRONIC OBSTRUCTIVE PULMONARY DISEASE, UNSPECIFIED (7) Hyperlipidemia Code(s): E78.5 - HYPERLIPIDEMIA, UNSPECIFIED (8) Hypokalemia due to inadequate potassium intake Code(s): E87.6 - HYPOKALEMIA (9) Hypophosphatemia Code(s): E83.39 - OTHER DISORDERS OF PHOSPHORUS METABOLISM (10) HTN (hypertension) Code(s): I10 - ESSENTIAL (PRIMARY) HYPERTENSION (11) Hypomagnesemia Code(s): E83.42 - HYPOMAGNESEMIA Assessment/Plan GI and surgical f/u appreciated post OP day 6 Pt. wants his to make medical decisions if he cannot; both daughter agrees with pt. All family's questions were answered Pt. is hemodynamically stable. Family is at bedside. Pt withpoor PO intake, better. I encourage po intake; to f/u with Sx. AM labs Prognosis: reserved Case was d/w pt.'s ICU nurse Time spent for managing pt.'s care: over 35 minutes
[2016-10-28] MEDS: ALBUTEROL SO4 0.083% IH SOL 2.5 MG/3 ML VIAL.NEB. NEB PRN ×2 (00:49→06:48)
[2016-10-28] MEDS: HEPARIN NA (PORCINE) 5,000 UNITS/ML 1ML VIAL SQ SCH ×3 (05:32→22:01)
[2016-10-28 07:23] LABS: MCH 28.2 pg (25.7-33.7); MCHC 33.5 g/dl (32.0-35.9); MEAN CELL VOLUME 84.1 fl (80-96); MEAN PLT VOLUME 7.8 fl (7.5-11.1); PLATELET COUNT 292 K/MM3 (134-434); RDW 13.9 % (11.9-15.9); WHITE BLOOD COUNT 10.9 K/mm3 (4.0-10.0)
[2016-10-28] MEDS ORDERED: METOPROLOL TARTRATE 5 MG/5 ML VIAL IVPUSH PRN (07:54)
[2016-10-28] MEDS ORDERED: POTASSIUM PHOSPHATE 27 MM in DEXTROSE 5%-WATER - 250 ML IVPB ONE (07:54)
[2016-10-28] MEDS ORDERED: oxyCODONE HCL 5 MG TABLET PO PRN (07:54)
[2016-10-28] MEDS ORDERED: POTASSIUM PHOSPHATE 30 MM in SODIUM CHLORIDE 250 ML IVPB ONE (07:54)
[2016-10-28] MEDS ORDERED: ALBUTEROL SO4 0.083% IH SOL 2.5 MG/3 ML VIAL.NEB. NEB PRN (07:54)
[2016-10-28 08:40] LABS: ALBUMIN 2.9 g/dl (3.4-5.0); ALK PHOS 81 U/L (45-117); ANION GAP 11 (8-16); BILIRUBIN,TOTAL 1.5 mg/dL (0.2-1.0); CO2 28 mmol/L (21-32); CREATININE 0.8 mg/dL (0.7-1.3); GLUCOSE,RANDOM 134 mg/dL (74-106); SGOT/AST 50 U/L (15-37); SGPT/ALT 54 U/L (12-78)
[2016-10-28] MEDS: ONDANSETRON 4 MG/2 ML VIAL IVPB PRN ×2 (09:06→17:12)
[2016-10-28] MEDS ORDERED: PT OWN MED DRAWER 7, Y5N ONE ×2 (09:43→11:21)
[2016-10-28] MEDS: amLODIPine BESYLATE 2.5 MG TABLET (FP) PO SCH (09:45)
[2016-10-28] MEDS: CLOPIDOGREL BISULFATE 75 MG TABLET (FP) PO SCH (09:45)
[2016-10-28] MEDS: PANTOPRAZOLE SODIUM 100 ML IVPB SCH (09:46)
[2016-10-28] MEDS: METOPROLOL SUCCINATE 100 MG TAB.SR.24H (FP) PO SCH (09:46)
[2016-10-28] MEDS: SYSTANE ULTRA EYE DROPS OU SCH ×2 (09:46→22:02)
[2016-10-28] MEDS: ACLIDINIUM BROMIDE 400 MCG/INH AERO.POWD IH SCH ×2 (09:47→22:02)
--- NOTE | 2016-10-28 10:29 | PN ---
Progress Note (short form) - Note Progress Note: PULMONARY CONFUSED "THERE IS A TURTLE UNDER THE CHAIR" ORIENTED TO PERSON/PLACE DIDN'T EAT BREAKFAST/NAUSEAS/ RETCHING W MINIMAL VOMITUS LOW GRADE TEMP ANICTERIC DIMINISHED DIFFUSE BREATH SOUNDS S1S2 ABD POST SURGICAL/WOUND CLEAN/DRY BOWEL SOUNDS ARE DIMINISHED/HYPER-RESONANT RUQ NO EDEMA LABS./MEDS/NOTES/IMAGING/PATH REVIEWED Confusion post-op/ CT brain negative Small Bowel Obstruction s/p ex-lap path: no malignancy noted Right lower lobe infiltrate COPD HTN Hyperlipidemia CHF h/o CVA - CT chest/abd/pelvis - Diet as tolerated - pain control - incentive spirometry - IVF as required - DVT prophylaxis - Telemetry monitoring - rpr/b12/tsh/hiv ordered Salina SIMMONS MD
[2016-10-28 11:07] LABS: ARTERIAL BLD GAS O2 SATURATION 95.2 % (90-98.9); ARTERIAL BLOOD GAS BASE EXCESS 3.6 meq/l (-2-2); ARTERIAL BLOOD GAS HCO3 26.4 meq/L (22-26); ARTERIAL BLOOD GAS PO2 73.7 mmHg (68-100)
[2016-10-28 11:08] LABS: ALLENS TEST POSITIVE; ART PUNCT SITE RIGHT RADIAL; LPM/O2% 2L; PT. ON O2? YES; TYPE OF O2 NASAL O2
[2016-10-28 11:09] LABS: ARTERIAL BLOOD GAS pH 7.49 (7.35-7.45)
[2016-10-28 11:53] LABS: HIV 1 & 2 AB NEGATIVE; HIV 1 AGp24 NEGATIVE
--- NOTE | 2016-10-28 11:56 | PN ---
Progress Note, Physician History of Present Illness: 81 year old man with a history of HTN, HLD, COPD, CVA, AAA admitted with abdominal discomfort and constipation concerning for SBO. Pt seen and examined today in nad. He states that he had multiple small BM's yesterday and overnight. denies any current abd pain. denies chest pain, sob, palpitations. no pnd, orthopnea, or LE edema. NG tube in place. PMH LE angio 02/21/2015 Dr. 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 DCB 08/10/2014 Dr Alcazar PCI LCx 09/20/2014 Dr Alcazar Medical History Reviewed Condition Date Treating Physician Comments Claudication, intermittent HTN Hyperlipidemia TIA/CVA - Current Medication List Current Medications: Active Medications Aclidinium [place] (Tudorza -) 1 puff IH BID [facility] Last Admin: 10/28/16 09:47 Dose: 1 inh Albuterol Sulfate (Ventolin 0.083% Nebulizer Soln -) 1 amp NEB Q4H PRN PRN Reason: SHORT OF BREATH/WHEEZING Amlodipine Besylate (Norvasc -) 2.5 mg PO DAILY [facility] Last Admin: 10/28/16 09:45 Dose: 2.5 mg Atorvastatin Calcium (Lipitor -) 40 mg PO HS [facility] Clopidogrel Bisulfate (Plavix -) 75 mg PO DAILY [facility] Last Admin: 10/28/16 09:45 Dose: 75 mg Heparin Sodium (Porcine) (Heparin -) 5,000 unit SQ TID [facility] Dextrose (D5w -) 1,000 mls @ 42 mls/hr IV ASDIR [facility] Last Admin: 10/27/16 22:05 Dose: Not Given Pantoprazole Sodium (Protonix 40mg Ivpb (Pre-Docked)) 100 mls @ 200 mls/hr IVPB DAILY [facility] Last Admin: 10/28/16 09:46 Dose: 200 mls/hr Metoprolol Succinate (Toprol Xl -) 200 mg PO DAILY [facility] Last Admin: 10/28/16 09:46 Dose: 200 mg Metoprolol Tartrate (Lopressor Injection -) 2.5 mg IVPUSH Q4H PRN PRN Reason: HYPERTENSION [place] 0.004% Eye (Drops) 1 each OU HS [facility] Last Admin: 10/27/16 22:06 Dose: 1 each Systane Ultra Eye (Drops) 1 each OU BID [facility] Last Admin: 10/28/16 09:46 Dose: 1 each Ondansetron HCl (Zofran Injection) 8 mg IVPB Q6H PRN PRN Reason: NAUSEA AND/OR VOMITING Last Admin: 10/28/16 09:06 Dose: 8 mg Oxycodone HCl (Roxicodone -) 5 mg PO Q6H PRN PRN Reason: PAIN - Objective Vital Signs: Vital Signs Temperature 99.3 F 10/28/16 06:00 Pulse Rate 78 10/28/16 10:35 Respiratory Rate 20 10/28/16 06:00 Blood Pressure 148/94 10/28/16 06:00 O2 Sat by Pulse Oximetry (%) 95 10/28/16 10:35 Eyes: Yes: WNL, Conjunctiva Clear, EOM Intact HENT: Yes: WNL, Atraumatic, Normocephalic Neck: Yes: WNL, Supple, Trachea Midline Cardiovascular: Yes: WNL, Regular Rate and Rhythm Respiratory: Yes: WNL, Regular, CTA Bilaterally Gastrointestinal: Yes: WNL, Normal Bowel Sounds Genitourinary: Yes: WNL Musculoskeletal: Yes: WNL Extremities: Yes: WNL Edema: No Integumentary: Yes: WNL Neurological: Yes: WNL, Alert, Oriented ...Motor Strength: WNL Psychiatric: Yes: WNL Labs: CBC, BMP 10/28/16 06:30 10/28/16 06:30 Assessment/Plan Problem List - Problems (1) Diastolic CHF Code(s): I50.30 - UNSPECIFIED DIASTOLIC (CONGESTIVE) HEART FAILURE (2) Hyperlipidemia Code(s): E78.5 - HYPERLIPIDEMIA, UNSPECIFIED (3) PSVT (paroxysmal supraventricular tachycardia) Assessment/Plan: Change labetolol to metoprolol ER (start at 200 mg daily, and increase as needed for HR and BP). Increase amlodipine if blood pressure remains elevated. ECHO 05/2016: normal LVEF. Keep K 4-4.5; f/u Mg, and keep 2-2.3.keep PO4 2.5-3.0. F/u EKG. Code(s): I47.1 - SUPRAVENTRICULAR TACHYCARDIA (4) SBO (small bowel obstruction) Assessment/Plan: f/u with surgeon. Code(s): K56.69 - OTHER INTESTINAL OBSTRUCTION (5) Small bowel mass Code(s): K63.89 - OTHER SPECIFIED DISEASES OF INTESTINE (6) HTN (hypertension) Assessment/Plan: Now on metoprolol ER for HTN and PSVT. On amlodipine.. Serial BPs. Code(s): I10 - ESSENTIAL (PRIMARY) HYPERTENSION (7) Weakness Code(s): R53.1 - WEAKNESS (8) Confusion Assessment/Plan: head CT: no acute pathology. F/u with neurologist. Code(s): R41.0 - DISORIENTATION, UNSPECIFIED
--- NOTE | 2016-10-28 13:53 | PN ---
Progress Note (short form) - Note Progress Note: asked to followup by Dr Cunningham he is s/p small bowel resection 10/21, he has been off antiibotics since 10/22 no fevers WBC is normal oriented to person and place, [place] and hospital per nurse had some visual hallucinations this am +BM yesterday poor appetite Vital Signs Period Temp Pulse Resp BP Sys/Hernandez Pulse Ox Last 24 Hr 97.8 F-99.3 F 72-82 18-24 133-161/77-94 95-97 cor-rrr lungs decreased bs at bases abd soft, incision intact, no erythema +ecchymoses (?heparin) ext no edema no phlebitis CBC, BMP 10/28/16 06:30 10/28/16 06:30 a/p confusion- appears to have been present since surgery- ?secondary to hospitalization and age no fevers or leukocytosis to suggest infection can repeat blood cultures repeat cxray d/w Dr Delcid Problem List - Problems (1) Pneumatosis intestinalis Code(s): K63.89 - OTHER SPECIFIED DISEASES OF INTESTINE (2) SBO (small bowel obstruction) Code(s): K56.69 - OTHER INTESTINAL OBSTRUCTION
--- NOTE | 2016-10-28 14:42 | PN ---
Progress Note, Physician History of Present Illness: Pt was transferred to medical floor. Post op day 7 NGT was removed ( by surgeon); now diet was advanced to regular. Pt with abd discomfort on and off. Pt's cough is improving. Pt w/o fever, N, V. Pt w/o CP, SOB, Palp. Pt with lose stool, less frequent Pt eat a little better today (his is at bed side). - Current Medication List Current Medications: Active Medications Aclidinium [place] (Tudorza -) 1 puff IH BID [facility] Last Admin: 10/28/16 09:47 Dose: 1 inh Albuterol Sulfate (Ventolin 0.083% Nebulizer Soln -) 1 amp NEB Q4H PRN PRN Reason: SHORT OF BREATH/WHEEZING Amlodipine Besylate (Norvasc -) 2.5 mg PO DAILY [facility] Last Admin: 10/28/16 09:45 Dose: 2.5 mg Atorvastatin Calcium (Lipitor -) 40 mg PO HS [facility] Clopidogrel Bisulfate (Plavix -) 75 mg PO DAILY [facility] Last Admin: 10/28/16 09:45 Dose: 75 mg Heparin Sodium (Porcine) (Heparin -) 5,000 unit SQ TID [facility] Last Admin: 10/28/16 14:09 Dose: 5,000 unit Dextrose (D5w -) 1,000 mls @ 42 mls/hr IV ASDIR [facility] Last Admin: 10/27/16 22:05 Dose: Not Given Pantoprazole Sodium (Protonix 40mg Ivpb (Pre-Docked)) 100 mls @ 200 mls/hr IVPB DAILY [facility] Last Admin: 10/28/16 09:46 Dose: 200 mls/hr Metoprolol Succinate (Toprol Xl -) 200 mg PO DAILY [facility] Last Admin: 10/28/16 09:46 Dose: 200 mg Metoprolol Tartrate (Lopressor Injection -) 2.5 mg IVPUSH Q4H PRN PRN Reason: HYPERTENSION [place] 0.004% Eye (Drops) 1 each OU HS [facility] Last Admin: 10/27/16 22:06 Dose: 1 each Systane Ultra Eye (Drops) 1 each OU BID [facility] Last Admin: 10/28/16 09:46 Dose: 1 each Ondansetron HCl (Zofran Injection) 8 mg IVPB Q6H PRN PRN Reason: NAUSEA AND/OR VOMITING Last Admin: 10/28/16 09:06 Dose: 8 mg Oxycodone HCl (Roxicodone -) 5 mg PO Q6H PRN PRN Reason: PAIN - Objective Vital Signs: Vital Signs Temperature 99.3 F 10/28/16 06:00 Pulse Rate 78 10/28/16 10:35 Respiratory Rate 20 10/28/16 06:00 Blood Pressure 148/94 10/28/16 06:00 O2 Sat by Pulse Oximetry (%) 95 10/28/16 10:35 Constitutional: Yes: No Distress, Calm Respiratory: Yes: Regular, Other (decreased BS, coarse BS when is taking deep breath in). No: Rales Gastrointestinal: Yes: Normal Bowel Sounds, Soft, Hypoactive Bowel Sounds, Tenderness (with palpation) Edema: No Neurological: Yes: Alert, Oriented (to place, persons), Other (motor is symmtric in UE/ LE/ face) Labs: CBC, BMP 10/28/16 06:30 10/28/16 06:30 Problem List - Problems (1) Small bowel mass Assessment/Plan: noticed on the latest CT scan. s/p SB tumor resection; pathology report: NO malignancy Code(s): K63.89 - OTHER SPECIFIED DISEASES OF INTESTINE (2) SBO (small bowel obstruction) Code(s): K56.69 - OTHER INTESTINAL OBSTRUCTION (3) Pneumatosis intestinalis Code(s): K63.89 - OTHER SPECIFIED DISEASES OF INTESTINE (4) CHF (congestive heart failure) Code(s): I50.9 - HEART FAILURE, UNSPECIFIED (5) CVA (cerebral infarction) Code(s): I63.9 - CEREBRAL INFARCTION, UNSPECIFIED (6) Chronic obstructive pulmonary disease Code(s): J44.9 - CHRONIC OBSTRUCTIVE PULMONARY DISEASE, UNSPECIFIED (7) Hyperlipidemia Code(s): E78.5 - HYPERLIPIDEMIA, UNSPECIFIED (8) Hypokalemia due to inadequate potassium intake Code(s): E87.6 - HYPOKALEMIA (9) Hypophosphatemia Code(s): E83.39 - OTHER DISORDERS OF PHOSPHORUS METABOLISM (10) HTN (hypertension) Code(s): I10 - ESSENTIAL (PRIMARY) HYPERTENSION (11) Hypomagnesemia Code(s): E83.42 - HYPOMAGNESEMIA Assessment/Plan GI and surgical f/u appreciated post OP day 7 Pt wants his to make medical decisions if he cannot; both daughter agrees with pt. All family's questions were answered Pt is hemodynamically stable. Family is at bedside. Pt with poor PO intake; per his : better PO intake. AM labs Prognosis: reserved
[2016-10-28] MEDS: DEXTROSE 5%-WATER - 1,000 ML IV SCH (17:13)
[2016-10-28] MEDS: ATORVASTATIN CA 40 MG TABLET (FP) PO SCH (22:01)
[2016-10-28] MEDS: TRAVATAN 0.004% OU SCH (22:02)
[2016-10-28] MEDS: EYE OU SCH (22:02)
[2016-10-29] MEDS: SODIUM CHLORIDE IV SCH ×2 (00:16→15:18)
[2016-10-29] MEDS: AMINO ACIDS IV SCH ×2 (00:16→15:18)
[2016-10-29] MEDS: [UNRECOGNIZED DRUG - OTHER] IV SCH ×2 (00:16→15:18)
[2016-10-29] MEDS: HEPARIN NA (PORCINE) 5,000 UNITS/ML 1ML VIAL SQ SCH ×3 (06:12→21:48)
[2016-10-29] MEDS ORDERED: PT OWN MED DRAWER 7, Y5N ONE ×2 (06:16→11:32)
[2016-10-29 08:15] LABS: MCH 28.3 pg (25.7-33.7); MEAN CELL VOLUME 83.4 fl (80-96); PLATELET COUNT 350 K/MM3 (134-434); RDW 13.9 % (11.9-15.9); WHITE BLOOD COUNT 8.8 K/mm3 (4.0-10.0)
[2016-10-29 08:57] LABS: ALBUMIN 2.7 g/dl (3.4-5.0); ALK PHOS 78 U/L (45-117); ANION GAP 8 (8-16); BILIRUBIN,TOTAL 1.1 mg/dL (0.2-1.0); CALCIUM 10.1 mg/dL (8.5-10.1); CO2 30 mmol/L (21-32); CREATININE 1.1 mg/dL (0.7-1.3); GLUCOSE,RANDOM 136 mg/dL (74-106); SGOT/AST 40 U/L (15-37); SGPT/ALT 48 U/L (12-78); THYROID STIMULATING HORMONE 0.29 uIU/ml (0.358-3.74); TOT PROT 5.9 g/dl (6.4-8.2)
--- NOTE | 2016-10-29 09:11 | PN ---
Progress Note (short form) - Note Progress Note: surgery pt seen and examined. feels well but vomited last night. still has flatus. kub shows dilated stomach and small intestine with some air in the colon. afebrile abd- soft, moderate distension Plan- suspect primarily gastric ileus with expected post op small bowel dilatation. will start reglan. will start clinimix and lipids. ngt if vomits again. keep npo today. would not get ct at this point as low suspicion for mechanical sbo.
[2016-10-29] MEDS ORDERED: SODIUM CHLORIDE IV SCH (09:15)
[2016-10-29] MEDS ORDERED: AMINO ACIDS IV SCH (09:15)
[2016-10-29] MEDS ORDERED: [UNRECOGNIZED DRUG - OTHER] IV SCH (09:15)
[2016-10-29] MEDS: amLODIPine BESYLATE 2.5 MG TABLET (FP) PO SCH (09:22)
[2016-10-29] MEDS: ACLIDINIUM BROMIDE 400 MCG/INH AERO.POWD IH SCH ×2 (09:23→21:50)
[2016-10-29] MEDS: METOPROLOL SUCCINATE 100 MG TAB.SR.24H (FP) PO SCH (09:23)
[2016-10-29] MEDS: CLOPIDOGREL BISULFATE 75 MG TABLET (FP) PO SCH (09:23)
[2016-10-29] MEDS: PANTOPRAZOLE SODIUM 100 ML IVPB SCH (09:23)
--- NOTE | 2016-10-29 09:56 | PN ---
Progress Note, Physician History of Present Illness: Pt was transferred to medical floor. Post op day 8 NGT was removed ( by surgeon); now diet was advanced to regular. Pt with abd discomfort on and off. Pt's cough is improving. Pt with N and V now, mild abd discomfort Pt w/o fever. Pt w/o CP, SOB, Palp. Pt with lose stool, less frequent - Current Medication List Current Medications: Active Medications Aclidinium [place] (Tudorza -) 1 puff IH BID [facility] Last Admin: 10/29/16 09:23 Dose: 1 inh Albuterol Sulfate (Ventolin 0.083% Nebulizer Soln -) 1 amp NEB Q4H PRN PRN Reason: SHORT OF BREATH/WHEEZING Amlodipine Besylate (Norvasc -) 2.5 mg PO DAILY [facility] Last Admin: 10/29/16 09:22 Dose: 2.5 mg Atorvastatin Calcium (Lipitor -) 40 mg PO HS [facility] Last Admin: 10/28/16 22:01 Dose: 40 mg Clopidogrel Bisulfate (Plavix -) 75 mg PO DAILY [facility] Last Admin: 10/29/16 09:23 Dose: 75 mg Fat Emulsion Intravenous (Intralipid -) 250 ml IV DAILY@2200 [facility] Heparin Sodium (Porcine) (Heparin -) 5,000 unit SQ TID [facility] Last Admin: 10/29/16 06:12 Dose: 5,000 unit Dextrose (D5w -) 1,000 mls @ 42 mls/hr IV ASDIR [facility] Last Admin: 10/28/16 17:13 Dose: 42 mls/hr Pantoprazole Sodium (Protonix 40mg Ivpb (Pre-Docked)) 100 mls @ 200 mls/hr IVPB DAILY [facility] Last Admin: 10/29/16 09:23 Dose: 200 mls/hr Sodium Chloride 20 meq/ Amino (Acids) 1,005 mls @ 125 mls/hr IV Q12H [facility] Metoclopramide HCl (Reglan Injection -) 10 mg IVPB Q6H [facility] Metoprolol Succinate (Toprol Xl -) 200 mg PO DAILY [facility] Last Admin: 10/29/16 09:23 Dose: 200 mg Metoprolol Tartrate (Lopressor Injection -) 2.5 mg IVPUSH Q4H PRN PRN Reason: HYPERTENSION [place] 0.004% Eye (Drops) 1 each OU HS [facility] Last Admin: 10/28/16 22:02 Dose: 1 each Systane Ultra Eye (Drops) 1 each OU BID [facility] Last Admin: 10/28/16 22:02 Dose: Not Given Ondansetron HCl (Zofran Injection) 8 mg IVPB Q6H PRN PRN Reason: NAUSEA AND/OR VOMITING Last Admin: 10/28/16 17:12 Dose: 8 mg Oxycodone HCl (Roxicodone -) 5 mg PO Q6H PRN PRN Reason: PAIN - Objective Vital Signs: Vital Signs Temperature 98.5 F 10/29/16 06:00 Pulse Rate 73 10/29/16 06:00 Respiratory Rate 20 10/29/16 06:00 Blood Pressure 147/77 10/29/16 06:00 O2 Sat by Pulse Oximetry (%) 96 10/28/16 21:00 Constitutional: Yes: No Distress (now, he vomitted earlier), Calm Cardiovascular: Yes: Regular Rate and Rhythm, S1, S2 Respiratory: Yes: Regular, Rales Gastrointestinal: Yes: Normal Bowel Sounds, Soft, Tenderness (s/p vomiting) Edema: No Neurological: Yes: Alert, Oriented Labs: CBC, BMP 10/29/16 07:00 10/29/16 07:00 Problem List - Problems (1) Small bowel mass Code(s): K63.89 - OTHER SPECIFIED DISEASES OF INTESTINE (2) SBO (small bowel obstruction) Code(s): K56.69 - OTHER INTESTINAL OBSTRUCTION (3) Pneumatosis intestinalis Code(s): K63.89 - OTHER SPECIFIED DISEASES OF INTESTINE (4) CHF (congestive heart failure) Code(s): I50.9 - HEART FAILURE, UNSPECIFIED (5) CVA (cerebral infarction) Code(s): I63.9 - CEREBRAL INFARCTION, UNSPECIFIED (6) Chronic obstructive pulmonary disease Code(s): J44.9 - CHRONIC OBSTRUCTIVE PULMONARY DISEASE, UNSPECIFIED (7) Hyperlipidemia Code(s): E78.5 - HYPERLIPIDEMIA, UNSPECIFIED (8) Hypokalemia due to inadequate potassium intake Code(s): E87.6 - HYPOKALEMIA (9) Hypophosphatemia Code(s): E83.39 - OTHER DISORDERS OF PHOSPHORUS METABOLISM (10) HTN (hypertension) Code(s): I10 - ESSENTIAL (PRIMARY) HYPERTENSION (11) Hypomagnesemia Code(s): E83.42 - HYPOMAGNESEMIA Assessment/Plan GI and surgical f/u appreciated post OP day 8 Pt wants his to make medical decisions if he cannot; both daughter agrees with pt. All family's questions were answered Pt is hemodynamically stable. Pt with poor PO intake; now vomiting. Case was d/w Dr. Carranza, to start Clinimix AM labs Prognosis: reserved
[2016-10-29] MEDS: METOCLOPRAMIDE HCL INJECTION 10 MG/2 ML VIAL IVPB SCH ×3 (10:57→21:48)
--- NOTE | 2016-10-29 11:00 | PN ---
Progress Note, Physician Chief Complaint: Pt is OOB in chair in hallway; denies dyspnea, chest pain, abdominal pain. History of Present Illness: 81-year-old male with no history of abdominal surgery presents to the emergency department complaining of periumbilical 6/10 sharp nonradiating intermittent discomfort with nausea no vomiting, fever, chills, chest pain, shortness of breath, flank pains, urinary symptoms. There are no alleviating or exacerbating factors. Last bowel movement 4 days ago. Timing/Duration: reports: intermittent Quality: reports: moderate - Current Medication List Current Medications: Active Medications Aclidinium [place] (Tudorza -) 1 puff IH BID [facility] Last Admin: 10/29/16 09:23 Dose: 1 inh Albuterol Sulfate (Ventolin 0.083% Nebulizer Soln -) 1 amp NEB Q4H PRN PRN Reason: SHORT OF BREATH/WHEEZING Amlodipine Besylate (Norvasc -) 2.5 mg PO DAILY [facility] Last Admin: 10/29/16 09:22 Dose: 2.5 mg Atorvastatin Calcium (Lipitor -) 40 mg PO HS [facility] Last Admin: 10/28/16 22:01 Dose: 40 mg Clopidogrel Bisulfate (Plavix -) 75 mg PO DAILY [facility] Last Admin: 10/29/16 09:23 Dose: 75 mg Heparin Sodium (Porcine) (Heparin -) 5,000 unit SQ TID [facility] Last Admin: 10/29/16 06:12 Dose: 5,000 unit Dextrose (D5w -) 1,000 mls @ 42 mls/hr IV ASDIR [facility] Last Admin: 10/28/16 17:13 Dose: 42 mls/hr Pantoprazole Sodium (Protonix 40mg Ivpb (Pre-Docked)) 100 mls @ 200 mls/hr IVPB DAILY [facility] Last Admin: 10/29/16 09:23 Dose: 200 mls/hr Sodium Chloride 20 meq/ Amino (Acids) 1,005 mls @ 125 mls/hr IV Q12H [facility] Sodium Chloride 20 meq/ Amino (Acids) 1,005 mls @ 82 mls/hr IV Q12H [facility] Fat Emulsion Intravenous (Intralipid -) 250 mls @ 20.833 mls/hr IV DAILY@2200 [facility] Metoclopramide HCl (Reglan Injection -) 10 mg IVPB Q6H [facility] Last Admin: 10/29/16 10:57 Dose: 10 mg Metoprolol Succinate (Toprol Xl -) 200 mg PO DAILY [facility] Last Admin: 10/29/16 09:23 Dose: 200 mg Metoprolol Tartrate (Lopressor Injection -) 2.5 mg IVPUSH Q4H PRN PRN Reason: HYPERTENSION Multivitamins/Minerals (Infuvite Adult -) 10 ml IV DAILY [facility] Travatan 0.004% Eye (Drops) 1 each OU HS [facility] Last Admin: 10/28/16 22:02 Dose: 1 each Systane Ultra Eye (Drops) 1 each OU BID [facility] Last Admin: 10/28/16 22:02 Dose: Not Given Ondansetron HCl (Zofran Injection) 8 mg IVPB Q6H PRN PRN Reason: NAUSEA AND/OR VOMITING Last Admin: 10/28/16 17:12 Dose: 8 mg Oxycodone HCl (Roxicodone -) 5 mg PO Q6H PRN PRN Reason: PAIN - Objective Vital Signs: Vital Signs Temperature 98.5 F 10/29/16 06:00 Pulse Rate 73 10/29/16 06:00 Respiratory Rate 20 10/29/16 06:00 Blood Pressure 147/77 10/29/16 06:00 O2 Sat by Pulse Oximetry (%) 96 10/28/16 21:00 Constitutional: Yes: Calm Eyes: Yes: WNL HENT: Yes: WNL Neck: Yes: Supple Cardiovascular: Yes: Regular Rate and Rhythm Respiratory: Yes: Regular Gastrointestinal: Yes: Soft ...Rectal Exam: Yes: Deferred Genitourinary: No: Anuria Breast(s): Yes: WNL Extremities: Yes: Cool Edema: No Peripheral Pulses WNL: Yes Integumentary: Yes: Incision Wound/Incision: Yes: [place] Intact Neurological: Yes: Alert, Weakness Psychiatric: Yes: Other Labs: CBC, BMP 10/29/16 07:00 10/29/16 07:00 Abnormal Lab Results 10/29/16 10/29/16 10/29/16 07:00 17:45 18:20 WBC 10.3 H BUN 26 H D 26 H Random Glucose 136 H 164 H D Calcium 10.5 H Total Bilirubin 1.1 H D 1.2 H AST 40 H 42 H Total Protein 5.9 L 6.2 L Albumin 2.7 L 2.9 L TSH 0.29 L D - ....Imaging X-ray: Report Reviewed (distention; small bowel) Problem List - Problems (1) Diastolic CHF Code(s): I50.30 - UNSPECIFIED DIASTOLIC (CONGESTIVE) HEART FAILURE (2) Hyperlipidemia Code(s): E78.5 - HYPERLIPIDEMIA, UNSPECIFIED (3) PSVT (paroxysmal supraventricular tachycardia) Assessment/Plan: Changed labetolol to metoprolol ER; increase to 300 mg daily. Increase amlodipine if blood pressure remains elevated. ECHO 05/2016: normal LVEF. Keep K 4-4.5; f/u Mg, and keep 2-2.3.keep PO4 2.5-3.0. EKG 10/27/16: NSR; ? old IWMI. Pain management. Code(s): I47.1 - SUPRAVENTRICULAR TACHYCARDIA (4) SBO (small bowel obstruction) Assessment/Plan: f/u with surgeon. Code(s): K56.69 - OTHER INTESTINAL OBSTRUCTION (5) Small bowel mass Code(s): K63.89 - OTHER SPECIFIED DISEASES OF INTESTINE (6) HTN (hypertension) Assessment/Plan: Now on metoprolol ER for HTN and PSVT; would increase to 300 mg daily (HTN; PSVT ). On amlodipine 2.5 mg daily; increase as need for BP control. Serial BP and HR checks. Code(s): I10 - ESSENTIAL (PRIMARY) HYPERTENSION (7) Weakness Code(s): R53.1 - WEAKNESS (8) Confusion Assessment/Plan: head CT: no acute pathology. F/u with neurologist. Code(s): R41.0 - DISORIENTATION, UNSPECIFIED
[2016-10-29] MEDS: SYSTANE ULTRA EYE DROPS OU SCH ×2 (11:33→21:49)
[2016-10-29] MEDS: MULTIVIT INJ. ADULT COMBO WITH VIT K 1 COMBO 10 ML VIAL IV SCH (15:18)
[2016-10-29 18:34] LABS: ALBUMIN 2.9 g/dl (3.4-5.0); ANION GAP 9 (8-16); CALCIUM 10.5 mg/dL (8.5-10.1); CO2 28 mmol/L (21-32); GLUCOSE,RANDOM 164 mg/dL (74-106); SGOT/AST 42 U/L (15-37)
[2016-10-29 18:41] LABS: ALK PHOS 80 U/L (45-117); BILIRUBIN,TOTAL 1.2 mg/dL (0.2-1.0); SGPT/ALT 51 U/L (12-78); TOT PROT 6.2 g/dl (6.4-8.2)
[2016-10-29 19:11] LABS: MCH 27.6 pg (25.7-33.7); MCHC 33.1 g/dl (32.0-35.9); MEAN CELL VOLUME 83.3 fl (80-96); MEAN PLT VOLUME 8.2 fl (7.5-11.1); PLATELET COUNT 371 K/MM3 (134-434); RDW 13.8 % (11.9-15.9); WHITE BLOOD COUNT 10.3 K/mm3 (4.0-10.0)
[2016-10-29] MEDS: ATORVASTATIN CA 40 MG TABLET (FP) PO SCH (21:48)
[2016-10-29] MEDS: EYE OU SCH (21:49)
[2016-10-29] MEDS: TRAVATAN 0.004% OU SCH (21:49)
[2016-10-29] MEDS ORDERED: FAT EMULSIONS 20% 250 ML PREMIX INFUS.BAG IV SCH (22:00)
[2016-10-30] MEDS: FAT EMULSIONS 250 ML IV SCH ×2 (02:59→21:40)
[2016-10-30] MEDS: METOCLOPRAMIDE HCL INJECTION 10 MG/2 ML VIAL IVPB SCH ×4 (03:02→21:36)
[2016-10-30] MEDS: HEPARIN NA (PORCINE) 5,000 UNITS/ML 1ML VIAL SQ SCH ×3 (06:15→21:10)
[2016-10-30 08:27] LABS: ANION GAP 12 (8-16); CALCIUM 10.4 mg/dL (8.5-10.1); CO2 28 mmol/L (21-32); CREATININE 1.1 mg/dL (0.7-1.3); GLUCOSE,RANDOM 100 mg/dL (74-106); SGOT/AST 39 U/L (15-37); SGPT/ALT 46 U/L (12-78)
[2016-10-30 08:29] LABS: ALK PHOS 86 U/L (45-117); BILIRUBIN,TOTAL 1.9 mg/dL (0.2-1.0); TOT PROT 6.5 g/dl (6.4-8.2)
[2016-10-30] MEDS: PANTOPRAZOLE SODIUM 100 ML IVPB SCH (10:09)
[2016-10-30] MEDS: METOPROLOL SUCCINATE 100 MG TAB.SR.24H (FP) PO SCH (10:10)
[2016-10-30] MEDS: CLOPIDOGREL BISULFATE 75 MG TABLET (FP) PO SCH (10:10)
[2016-10-30] MEDS: amLODIPine BESYLATE 2.5 MG TABLET (FP) PO SCH (10:10)
--- NOTE | 2016-10-30 10:10 | PN ---
Progress Note, Physician History of Present Illness: Pt was transferred to medical floor. Post op day 9 NGT was removed ( by surgeon); now diet was advanced to regular. Pt with abd discomfort on and off. Pt's cough is improving. Pt with N and V now, mild abd discomfort Pt w/o fever. Pt w/o CP, SOB, Palp. Pt with lose stool, less frequent - Current Medication List Current Medications: Active Medications Aclidinium [place] (Tudorza -) 1 puff IH BID [facility] Last Admin: 10/29/16 21:50 Dose: 1 inh Albuterol Sulfate (Ventolin 0.083% Nebulizer Soln -) 1 amp NEB Q4H PRN PRN Reason: SHORT OF BREATH/WHEEZING Amlodipine Besylate (Norvasc -) 2.5 mg PO DAILY [facility] Last Admin: 10/29/16 09:22 Dose: 2.5 mg Atorvastatin Calcium (Lipitor -) 40 mg PO HS [facility] Last Admin: 10/29/16 21:48 Dose: 40 mg Clopidogrel Bisulfate (Plavix -) 75 mg PO DAILY [facility] Last Admin: 10/29/16 09:23 Dose: 75 mg Heparin Sodium (Porcine) (Heparin -) 5,000 unit SQ TID [facility] Last Admin: 10/30/16 06:15 Dose: 5,000 unit Pantoprazole Sodium (Protonix 40mg Ivpb (Pre-Docked)) 100 mls @ 200 mls/hr IVPB DAILY [facility] Last Admin: 10/29/16 09:23 Dose: 200 mls/hr Sodium Chloride 20 meq/ Amino (Acids) 1,005 mls @ 82 mls/hr IV Q12H [facility] Last Admin: 10/29/16 15:18 Dose: 82 mls/hr Fat Emulsion Intravenous (Intralipid -) 250 mls @ 20.833 mls/hr IV DAILY@2200 [facility] Last Admin: 10/30/16 02:59 Dose: 20.833 mls/hr Metoclopramide HCl (Reglan Injection -) 10 mg IVPB Q6H [facility] Last Admin: 10/30/16 03:02 Dose: 10 mg Metoprolol Succinate (Toprol Xl -) 200 mg PO DAILY [facility] Last Admin: 10/29/16 09:23 Dose: 200 mg Metoprolol Tartrate (Lopressor Injection -) 2.5 mg IVPUSH Q4H PRN PRN Reason: HYPERTENSION Multivitamins/Minerals (Infuvite Adult -) 10 ml IV DAILY [facility] Last Admin: 10/29/16 15:18 Dose: 10 ml [place] 0.004% Eye (Drops) 1 each OU HS [facility] Last Admin: 10/29/16 21:49 Dose: 1 each Systane Ultra Eye (Drops) 1 each OU BID [facility] Last Admin: 10/29/16 21:49 Dose: 1 each Ondansetron HCl (Zofran Injection) 8 mg IVPB Q6H PRN PRN Reason: NAUSEA AND/OR VOMITING Last Admin: 10/28/16 17:12 Dose: 8 mg Oxycodone HCl (Roxicodone -) 5 mg PO Q6H PRN PRN Reason: PAIN - Objective Vital Signs: Vital Signs Temperature 99.8 F H 10/30/16 06:00 Pulse Rate 133 H 10/30/16 06:00 Respiratory Rate 18 10/30/16 06:00 Blood Pressure 157/86 10/30/16 06:00 O2 Sat by Pulse Oximetry (%) 96 10/29/16 21:00 Constitutional: Yes: No Distress, Calm Cardiovascular: Yes: Regular Rate and Rhythm, S1, S2 Respiratory: Yes: Regular, Other (coarse BS, decreased BS) Gastrointestinal: Yes: Soft, Hypoactive Bowel Sounds Edema: No Labs: CBC, BMP 10/29/16 18:20 10/30/16 07:00 Problem List - Problems (1) Small bowel mass Code(s): K63.89 - OTHER SPECIFIED DISEASES OF INTESTINE (2) SBO (small bowel obstruction) Code(s): K56.69 - OTHER INTESTINAL OBSTRUCTION (3) Pneumatosis intestinalis Code(s): K63.89 - OTHER SPECIFIED DISEASES OF INTESTINE (4) CHF (congestive heart failure) Code(s): I50.9 - HEART FAILURE, UNSPECIFIED (5) CVA (cerebral infarction) Code(s): I63.9 - CEREBRAL INFARCTION, UNSPECIFIED (6) Chronic obstructive pulmonary disease Code(s): J44.9 - CHRONIC OBSTRUCTIVE PULMONARY DISEASE, UNSPECIFIED (7) Hyperlipidemia Code(s): E78.5 - HYPERLIPIDEMIA, UNSPECIFIED (8) Hypokalemia due to inadequate potassium intake Code(s): E87.6 - HYPOKALEMIA (9) Hypophosphatemia Code(s): E83.39 - OTHER DISORDERS OF PHOSPHORUS METABOLISM (10) HTN (hypertension) Code(s): I10 - ESSENTIAL (PRIMARY) HYPERTENSION (11) Hypomagnesemia Code(s): E83.42 - HYPOMAGNESEMIA Assessment/Plan GI and surgical f/u appreciated post OP day 9 Pt wants his to make medical decisions if he cannot; both daughter agrees with pt. All family's questions were answered Pt is hemodynamically stable. Pt with poor PO intake; pt with N and V since yesterday; he might need NGT; to f /u with Sx. Pt on Clinimix AM labs Prognosis: reserved
[2016-10-30] MEDS: ACLIDINIUM BROMIDE 400 MCG/INH AERO.POWD IH SCH ×2 (10:11→23:00)
[2016-10-30 10:21] LABS: MCHC 33.4 g/dl (32.0-35.9); MEAN CELL VOLUME 83.8 fl (80-96); MEAN PLT VOLUME 7.7 fl (7.5-11.1); PLATELET COUNT 386 K/MM3 (134-434); RDW 14.1 % (11.9-15.9)
--- NOTE | 2016-10-30 13:28 | PN ---
Progress Note (short form) - Note Progress Note: PULMONARY NPO/ RETCHING W MINIMAL VOMITUS LOW GRADE TEMP ANICTERIC DIMINISHED DIFFUSE BREATH SOUNDS/LEFT BASE CRACKLES S1S2 ABD POST SURGICAL/WOUND CLEAN/DRY BOWEL SOUNDS ARE DIMINISHED/HYPER-RESONANT RUQ NO EDEMA LABS./MEDS/NOTES/IMAGING/PATH REVIEWED Acute respiratory distress r/o aspiration Small Bowel Obstruction s/p ex-lap path: no malignancy noted COPD HTN Hyperlipidemia CHF h/o CVA - Will transfer to ICU - IVF as required/O2/stat CXR/ABG - DVT prophylaxis - May need ETT/MVV - Discussed with ICU attending Salina SIMMONS MD
--- NOTE | 2016-10-30 14:04 | PN ---
Progress Note (short form) - Note Progress Note: surgery pt seen and examined. transferred to ICU for shortness of breath. kub shows no sbo. pt still reports vomiting. afebrile abd- soft, distended, nt Plan- suggest ngt as abd distension may be contributing to shortness of breath. cont reglan. icu w/u for pulmonary issues in progress. no acute abdomen. ileus may last several more days. can remove ngt in 24-48 hours if minimal output.
[2016-10-30 14:20] LABS: ARTERIAL BLOOD GAS BASE EXCESS 1.7 meq/l (-2-2); ARTERIAL BLOOD GAS HCO3 26.2 meq/L (22-26); ARTERIAL BLOOD GAS pH 7.41 (7.35-7.45)
[2016-10-30 14:21] LABS: ALLENS TEST POSITIVE; ART PUNCT SITE LEFT RADIAL; PT. ON O2? YES
[2016-10-30 14:22] LABS: ARTERIAL BLOOD GAS PO2 71.2 mmHg (68-100); LPM/O2% 50% V/M
--- NOTE | 2016-10-30 14:28 | CONSULT ---
Consultation: REQUESTING PROVIDER:Dr. Cunningham CONSULT REQUEST: We have been asked to medically evaluate this patient for respiratory distress. HISTORY OF PRESENT ILLNESS: 81 yr old man with mild R hemiparesis s/p CVA/TIA, COPD, HTN, HLD, recent ex- lap for SBO transferred to ICU from [facility] due to respiratory distress on the [facility] floors. for past few days the patient was having nonbloody brown/ bilous emesis. This morning he felt short of breath with decreased saturation on pulse ox, and some diffuse abdominal pain and distention. For past few days(-10/31 nursing notes) he has been having nausea with poor po intake and was made npo 10/29 after abdominal xray showed suggestion of mid to distal small bowel distention. last recorded BM 10/28 REVIEW OF SYSTEMS: CONSTITUTIONAL: Present: loss of appetite,generalized weakness, Absent: fever, chills, diaphoresis, malaise, weight change HEENT: Absent: rhinorrhea, nasal congestion, throat pain, throat swelling, difficulty swallowing, mouth swelling, ear pain, eye pain, visual changes CARDIOVASCULAR: Absent: chest pain, syncope, palpitations, irregular heart rate, lightheadedness , peripheral edema RESPIRATORY: Present: cough, shortness of breath, Absent: dyspnea with exertion, orthopnea, wheezing, stridor, hemoptysis GASTROINTESTINAL: Present: abdominal pain, abdominal distension, nausea, vomiting Absent: diarrhea, constipation, melena, hematochezia GENITOURINARY: Absent: dysuria, frequency, urgency, hesitancy, hematuria, flank pain, genital pain MUSCULOSKELETAL: Absent: myalgia, arthralgia, joint swelling, back pain, neck pain SKIN: Absent: rash, itching, pallor NEUROLOGIC: Absent: headache, focal weakness or paresthesias, dizziness, unsteady gait, seizure, mental status changes, bladder or bowel incontinence PHYSICAL EXAMINATION Vital Signs - 24 hr 10/29/16 10/29/16 10/29/16 16:20 21:00 22:00 Temperature 99.0 F 97.6 F Pulse Rate 114 H 79 Respiratory 20 18 Rate Blood Pressure 163/83 138/76 O2 Sat by Pulse 96 Oximetry (%) 10/30/16 10/30/16 10/30/16 04:00 06:00 11:25 Temperature 98.9 F 99.8 F H Pulse Rate 83 133 H 102 H Respiratory 18 18 Rate Blood Pressure 132/82 157/86 O2 Sat by Pulse 94 L Oximetry (%) GENERAL: lethargic, easily arousable. HEAD: Normal with no signs of trauma. bitemporal wasting EYES: Pupils equal, round and reactive to light, extraocular movements intact, sclera anicteric, conjunctiva clear. No lid lag. EARS, NOSE, THROAT: nares patent, oropharynx clear without exudates/lesions/ erythema. Moist mucous membranes. NECK: Normal range of motion, supple without lymphadenopathy, JVD, or masses. LUNGS: left lower lung with crackles, right base with crackles and wheezing, No accessory muscle use. HEART: Regular rhythm, tachycardia, normal S1 and S2 without murmur, rub or gallop. ABDOMEN: firm, mildly diffusely tender, + distended, hypoactive bowel sounds, no guarding, no rebound, no masses. mildline incision with tiffanie in place without erythema/discharge UPPER EXTREMITIES: 2+ radial, pulses, warm, well-perfused. No cyanosis. + clubbing. No peripheral edema. LOWER EXTREMITIES: 2+ dorsalis pulses, warm, well-perfused. No calf tenderness. No peripheral edema. NEUROLOGICAL: Cranial nerves II-XII intact. Laboratory Results - last 24 hr 10/29/16 10/29/16 10/29/16 17:45 17:45 18:20 WBC Cancelled 10.3 H Corrected WBC (auto) Cancelled RBC Cancelled 5.03 Hgb Cancelled 13.9 Hct Cancelled 41.9 MCV Cancelled 83.3 MCHC Cancelled 33.1 RDW Cancelled 13.8 Plt Count Cancelled 371 MPV Cancelled 8.2 Differential Comment Cancelled Platelet Estimate Cancelled Platelet Comment Cancelled RBC Morphology Cancelled Sodium 137 Potassium 4.4 Chloride 100 Carbon Dioxide 28 Anion Gap 9 BUN 26 H Creatinine 1.0 Creat Clearance w eGFR > 60 Random Glucose 164 H D Calcium 10.5 H Total Bilirubin 1.2 H AST 42 H ALT 51 Alkaline Phosphatase 80 Total Protein 6.2 L Albumin 2.9 L 10/30/16 10/30/16 07:00 09:55 WBC 18.0 H D Corrected WBC (auto) RBC 5.47 Hgb 15.3 D Hct 45.8 MCV 83.8 MCHC 33.4 RDW 14.1 Plt Count 386 MPV 7.7 Differential Comment Platelet Estimate Platelet Comment RBC Morphology Sodium 138 Potassium 4.3 Chloride 98 Carbon Dioxide 28 Anion Gap 12 BUN 34 H D Creatinine 1.1 Creat Clearance w eGFR > 60 Random Glucose 100 D Calcium 10.4 H Total Bilirubin 1.9 H D AST 39 H ALT 46 Alkaline Phosphatase 86 Total Protein 6.5 Albumin 3.0 L Active Medications Generic Name Dose Route Start Last Admin Trade Name Freq PRN Reason Stop Dose Admin Aclidinium [place] 1 puff 10/28/16 10:00 10/30/16 10:11 Tudorza - IH 1 inh BID [facility] Administration Albuterol Sulfate 1 amp 10/28/16 07:54 Ventolin 0.083% Nebulizer Soln - NEB Q4H PRN SHORT OF BREATH/WHEEZING Amlodipine Besylate 2.5 mg 10/28/16 10:00 10/30/16 10:10 Norvasc - PO 2.5 mg DAILY MODESTA Administration Atorvastatin Calcium 40 mg 10/28/16 22:00 10/29/16 21:48 Lipitor - PO 40 mg HS MODESTA Administration Clopidogrel Bisulfate 75 mg 10/28/16 10:00 10/30/16 10:10 Plavix - PO 75 mg DAILY [facility] Administration Heparin Sodium (Porcine) 5,000 unit 10/28/16 14:00 10/30/16 06:15 Heparin - SQ 5,000 unit TID MODESTA Administration Pantoprazole Sodium 100 mls @ 200 mls/hr 10/28/16 10:00 10/30/16 10:09 Protonix 40mg Ivpb (Pre-Docked) IVPB 200 mls/hr DAILY [facility] Administration Sodium Chloride 20 meq/ Amino 1,005 mls @ 82 mls/hr 10/29/16 11:00 10/29/16 15: 18 Acids IV 82 mls/hr Q12H MODE[facility] Administration Fat Emulsion Intravenous 250 mls @ 20.833 mls/hr 10/29/16 22:00 10/30/16 02:59 Intralipid - IV 20.833 mls/hr DAILY@2200 [facility] Administration Metoclopramide HCl 10 mg 10/29/16 09:45 10/30/16 10:10 Reglan Injection - IVPB 10 mg Q6H MO[facility] Administration Metoprolol Succinate 200 mg 10/28/16 10:00 10/30/16 10:10 Toprol Xl - PO 200 mg DAILY MODSETA Administration Metoprolol Tartrate 2.5 mg 10/28/16 07:54 Lopressor Injection - IVPUSH Q4H PRN HYPERTENSION Multivitamins/Minerals 10 ml 10/29/16 11:00 10/29/16 15:18 Infuvite Adult - IV 10 ml DAILY [facility] Administration Travatan 0.004% Eye 1 each 10/27/16 22:00 10/29/16 21:49 Drops OU 1 each HS MODESTA Administration Systane Ultra Eye 1 each 10/27/16 22:00 10/29/16 21:49 Drops OU 1 each BID [facility] Administration Ondansetron HCl 8 mg 10/28/16 07:54 10/28/16 17:12 Zofran Injection IVPB 8 mg Q6H PRN Administration NAUSEA AND/OR VOMITING Oxycodone HCl 5 mg 10/28/16 07:54 Roxicodone - PO Q6H PRN PAIN ASSESSMENT/PLAN: 81 yr old man with HTN, HLD, hx of CVA, TIA with recent small bowel obstruction/ abdominal mass removal having several days of nausea and emesis transferred to the ICU this afternoon due to respiratory distress. Pulmonary respiratory distress likely due to abdominal distention caused by ileus improved with venti ivana of 50% and NGT(output >1L of brown watery feculant material without blood on insertion) ABG wnl, maintain on venti mask, breathing will likely improve as patient is decompressed, caution use of bipap in patient with ileus, if respiratory status does improve opt for intubation inhalers prn, incentive spirometer repeat chest xray in the AM GI POD #10(10/21) of small bowel obstruction/mass - mass pathology was non- malignant. NGT for decompression, possible to dc 24-48hrs when output decreases - initial output >1L clinimix IV with lipids until patient starts to take po, discuss with meter repairer helper on optimization complete NPO consult: Dr. goyal Cardiovascular HTN - hold oral medications with NGT continues to drain and patient is npo, consider IV lopressor for BP if needed CAD - hold lipitor and plavix Hematological leucocytosis likely reactive to ileus, monitor off antibiotics DVT: heparin TID, oob when able Dispo: We will continue to follow the patient. Thank you for this consultative opportunity. Visit type - Emergency Visit Emergency Visit: No - New Patient This patient is new to me today: Yes Date on this admission: 10/31/16 - Critical Care Critical Care patient: Yes Total Critical Care Time (in minutes): 36 Critical Care Statement: The care of this patient involved high complexity decision making to prevent further life threatening deterioration of the patient 's condition and/or to evalute & treat vital organ system(s) failure or risk of failure.
[2016-10-30] MEDS ORDERED: METOPROLOL TARTRATE 5 MG/5 ML VIAL IVPUSH PRN (14:35)
[2016-10-30] MEDS ORDERED: ONDANSETRON 4 MG/2 ML VIAL IVPB PRN (14:35)
[2016-10-30] MEDS ORDERED: oxyCODONE HCL 5 MG TABLET PO PRN (14:35)
[2016-10-30 19:21] LABS: ALLENS TEST POSITIVE; ART PUNCT SITE LEFT RADIAL; ARTERIAL BLD GAS O2 SATURATION 94.8 % (90-98.9); ARTERIAL BLOOD GAS BASE EXCESS 3.3 meq/l (-2-2); ARTERIAL BLOOD GAS PO2 70.6 mmHg (68-100); ARTERIAL BLOOD GAS pH 7.48 (7.35-7.45); LPM/O2% 50%; PT. ON O2? YES; TYPE OF O2 VENTI MASK
--- NOTE | 2016-10-30 21:28 | CONSULT ---
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 He is s/p small bowel resection, was transferred to the floor from the ICU 2 days ago. He returns today with N/V , abdominal pain and distention, also SOB. He was admitted to the ICU, a NGT was placed with 2100mL of bilious drainage. His respiratory status and abdominal distention are better post decompression. 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 Cardio/Vascular: Yes: CHF, HTN, Hyperlipdemia Pulmonary: Yes: COPD Gastrointestinal: Yes: Constipation Musculoskeletal: Yes: Hemiparesis - Past Surgical History Additional Surgical History: ex-lap with small bowel resection due to SBO from tumor - Alcohol/Substance Use Hx Alcohol Use: Yes History of Substance Use: reports: None - Smoking History Smoking history: Former smoker Have you smoked in the past 12 months: No Aproximately how many cigarettes per day: 10 If you are a former smoker, when did you quit?: 2016 - Social History Usual Living Arrangement: With Spouse ADL: Independent Occupation: retired from [employer] History of Recent Travel: No Home Medications - Allergies Allergies/Adverse Reactions: Allergies Allergy/AdvReac Type Severity Reaction Status Date / Time No Known Allergies Allergy Verified 03/02/16 12:36 - Home Medications Home Medications: Ambulatory Orders Atorvastatin Ca [Lipitor] 40 mg PO HS #0 tablet 03/03/13 Amlodipine Besylate [Norvasc -] 5 mg PO DAILY #0 tablet 08/01/13 Clopidogrel Bisulfate [Plavix -] 75 mg PO DAILY #0 tablet 08/01/13 Labetalol HCl [Normodyne -] 200 mg PO BID #0 tablet NS 08/01/13 Furosemide [Lasix -] 20 mg PO DAILY 08/09/15 Aspirin [ASA -] 81 mg PO DAILY 10/16/16 Tiotropium [place] [Spiriva] 1 inh PO BID 10/16/16 Family Disease History - Family Disease History Family Disease History: Heart Disease: Brother (congestive heart failure), Other : Father (lived to 99), Mother (lived to her 70's) Other Family History: No family history of colorectal cancer or other GI malignancy Review of Systems Unable to obtain ROS, reason: dementia Physical Exam Vital Signs: Vital Signs Temperature 97.3 F L 10/30/16 18:00 Pulse Rate 106 H 10/30/16 20:00 Respiratory Rate 18 10/30/16 20:00 Blood Pressure 136/76 10/30/16 20:00 O2 Sat by Pulse Oximetry (%) 91 L 10/30/16 14:00 Constitutional: Yes: Cachectic, Thin Eyes: Yes: WNL HENT: Yes: WNL, Other (NGT) Neck: Yes: WNL Cardiovascular: Yes: Tachycardia, S1, S2. No: JVD Respiratory: Yes: Diminished, Tachypnea Gastrointestinal: Yes: Distention, Hypoactive Bowel Sounds, Tenderness Musculoskeletal: Yes: WNL Extremities: Yes: Cool Edema: Yes Edema: LUE: Trace, RUE: Trace Integumentary: Yes: WNL Wound/Incision: Yes: Clean/Dry Neurological: Yes: Confusion Labs: CBC, BMP 10/30/16 09:55 10/30/16 07:00 Imaging - Results Chest X-ray: Image Reviewed X-ray: Pending Cat Scan: Pending Problem List - Problems (1) SBO (small bowel obstruction) Code(s): K56.69 - OTHER INTESTINAL OBSTRUCTION (2) CHF (congestive heart failure) Code(s): I50.9 - HEART FAILURE, UNSPECIFIED (3) CVA (cerebral infarction) Code(s): I63.9 - CEREBRAL INFARCTION, UNSPECIFIED (4) Chronic obstructive pulmonary disease Code(s): J44.9 - CHRONIC OBSTRUCTIVE PULMONARY DISEASE, UNSPECIFIED (5) HTN (hypertension) Code(s): I10 - ESSENTIAL (PRIMARY) HYPERTENSION (6) Hyperlipemia, mixed Code(s): E78.2 - MIXED HYPERLIPIDEMIA (7) Ileus following gastrointestinal surgery Code(s): K91.3 - POSTPROCEDURAL INTESTINAL OBSTRUCTION Assessment/Plan Post-op ileus s/p ex-lap and small bowel resection for SBO from tumor COPD HTN Hyperlipidemia CHF h/o CVA Dementia -Strict NPO -NGT to Int-LWS -Repeat abdominal CT pending, though difficultly handling PO contrast - will check KUB to look at NGT placement -Respiratory status appears improved post decompression, but monitor closely -Surgical followup -Pain control -Change meds to IV formulation -Continue PPN -GI and DVT PPx -GOC discussions with family Monitor in ICU - CCT 45min Thank you for this interesting consult Mukesh Upton Pulm/Critical Care CARRIER DRIVER
[2016-10-30] MEDS: ATORVASTATIN CA 40 MG TABLET (FP) PO SCH (21:36)
[2016-10-30] MEDS: SYSTANE ULTRA EYE DROPS OU SCH (21:41)
[2016-10-30] MEDS: EYE OU SCH (21:41)
[2016-10-30] MEDS: TRAVATAN 0.004% OU SCH (21:41)
[2016-10-31 01:36] LABS: URINE APPEARANCE CLEAR; URINE BILIRUBIN NEGATIVE (NEGATIVE); URINE COLOR YELLOW; URINE GLUCOSE (UA) NEGATIVE (NEGATIVE); URINE KETONE NEGATIVE (NEGATIVE); URINE LEUK ESTERASE NEGATIVE (NEGATIVE); URINE NITRITE NEGATIVE (NEGATIVE); URINE PROTEIN NEGATIVE (NEGATIVE); URINE UROBILINOGEN NEGATIVE E.U./dl (0.2-1.0)
[2016-10-31 01:45] LABS: URINE BLOOD 2+ (NEGATIVE)
[2016-10-31 01:59] LABS: URINE HYALINE CAST 3 /lpf; URINE MUCUS RARE; URINE RBC 33 /hpf (0-3); URINE WBC 1 /hpf (3-5)
[2016-10-31] MEDS: METOCLOPRAMIDE HCL INJECTION 10 MG/2 ML VIAL IVPB SCH ×4 (02:07→20:32)
[2016-10-31] MEDS: HEPARIN NA (PORCINE) 5,000 UNITS/ML 1ML VIAL SQ SCH ×3 (06:26→21:04)
[2016-10-31] MEDS: METOPROLOL TARTRATE 5 MG/5 ML VIAL IVPUSH PRN ×3 (06:27→22:27)
--- NOTE | 2016-10-31 08:06 | PN ---
Progress Note (short form) - Note Progress Note: surgery ct reviewed. Dr. Tinsley to eval patient today. There appears to be a trasition in bowel diameter just distal to the anastamosis. 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 Would cont ngt. cont clinimix/lipids. replace ngt output. this may take > 1 week to improve. suggest nutrition eval for caloric needs with clinimix. I estimate 1300 calories and 85 grams of protein which gives about 25 nancy/kg and 1.5 g/kg protein.
[2016-10-31 08:11] LABS: MCH 28.1 pg (25.7-33.7); MCHC 33.6 g/dl (32.0-35.9); MEAN CELL VOLUME 83.8 fl (80-96); MEAN PLT VOLUME 8.4 fl (7.5-11.1); PLATELET COUNT 333 K/MM3 (134-434); RDW 14.1 % (11.9-15.9); WHITE BLOOD COUNT 18.3 K/mm3 (4.0-10.0)
[2016-10-31 08:23] LABS: ALBUMIN 2.3 g/dl (3.4-5.0); ANION GAP 11 (8-16); BILIRUBIN,DIRECT 0.3 mg/dL (0.0-0.2); BILIRUBIN,TOTAL 1.1 mg/dL (0.2-1.0); CALCIUM 9.8 mg/dL (8.5-10.1); CO2 27 mmol/L (21-32); CREATININE 0.9 mg/dL (0.7-1.3); GLUCOSE,RANDOM 170 mg/dL (74-106); PHOSPHOROUS 1.9 mg/dL (2.5-4.9); SGPT/ALT 34 U/L (12-78)
[2016-10-31 08:24] LABS: ALK PHOS 75 U/L (45-117); TOT PROT 5.6 g/dl (6.4-8.2)
[2016-10-31 08:36] LABS: MAGNESIUM 2.2 mg/dL (1.8-2.4); SGOT/AST 36 U/L (15-37)
--- NOTE | 2016-10-31 09:07 | PN ---
Progress Note (short form) - Note Progress Note: Patient seen and examined in the ICU. Awake and alert. (+) Mild abdominal discomfort. Remains NPO. (+) Nausea - but better Ab xray : improving distended bowel loops CXR : improving mild basilar infiltrates Intake & Output 10/28/16 10/29/16 10/30/16 10/31/16 23:59 23:59 23:59 23:59 Intake Total 550 1512 782 Output Total 2700 4400 Balance 250 -2527 -9527 Weight 112 lb 7 oz Last Vital Signs Temp Pulse Resp BP Pulse Ox 98.9 F 106 H 20 145/79 92 L 10/31/16 06:00 10/31/16 08:00 10/31/16 08:46 10/31/16 08:00 10/30/16 21:00 Active Medications Aclidinium [place] (Tudorza -) 1 puff IH BID [facility] Last Admin: 10/30/16 23:00 Dose: 1 puff Albuterol Sulfate (Ventolin 0.083% Nebulizer Soln -) 1 amp NEB Q4H PRN PRN Reason: SHORT OF BREATH/WHEEZING Amlodipine Besylate (Norvasc -) 2.5 mg PO DAILY [facility] Atorvastatin Calcium (Lipitor -) 40 mg PO HS [facility] Last Admin: 10/30/16 21:36 Dose: Not Given Heparin Sodium (Porcine) (Heparin -) 5,000 unit SQ TID [facility] Last Admin: 10/31/16 06:26 Dose: 5,000 unit Sodium Chloride 20 meq/ Amino (Acids) 1,005 mls @ 82 mls/hr IV Q12H [facility] Last Admin: 10/31/16 00:00 Dose: 82 mls/hr Fat Emulsion Intravenous (Intralipid -) 250 mls @ 20.833 mls/hr IV DAILY@2200 [facility] Last Admin: 10/30/16 21:40 Dose: 20.833 mls/hr Pantoprazole Sodium (Protonix 40mg Ivpb (Pre-Docked)) 100 mls @ 200 mls/hr IVPB DAILY [facility] Lactated Ringer's (Lactated Ringers Solution) 1,000 mls @ 42 mls/hr IV ASDIR [facility] Metoclopramide HCl (Reglan Injection -) 10 mg IVPB Q6H-IV [facility] Last Admin: 10/31/16 02:07 Dose: 10 mg Metoprolol Succinate (Toprol Xl -) 200 mg PO DAILY [facility] Metoprolol Tartrate (Lopressor Injection -) 5 mg IVPUSH Q6H PRN PRN Reason: HYPERTENSION Last Admin: 10/31/16 06:27 Dose: 5 mg Multivitamins/Minerals (Infuvite Adult -) 10 ml IV DAILY [facility] Travatan 0.004% Eye (Drops) 1 each OU HS [facility] Last Admin: 10/30/16 21:41 Dose: 1 each Systane Ultra Eye (Drops) 1 each OU BID [facility] Last Admin: 10/30/16 21:41 Dose: 1 each Ondansetron HCl (Zofran Injection) 8 mg IVPB Q6H PRN PRN Reason: NAUSEA AND/OR VOMITING Oxycodone HCl (Roxicodone -) 5 mg PO Q6H PRN PRN Reason: PAIN OBJECTIVE: Gen: Awake, mildly tachypneic at rest Heart: RRR Lung: decreased breath sounds at the bases Abd: soft, (+) BS, appropriately tender Ext: no edema Laboratory Results - last 24 hr 10/30/16 10/30/16 10/30/16 09:55 14:10 19:09 WBC 18.0 H D RBC 5.47 Hgb 15.3 D Hct 45.8 MCV 83.8 MCHC 33.4 RDW 14.1 Plt Count 386 MPV 7.7 Neutrophils % Lymphocytes % Puncture Site Left radial Left radial ABG pH 7.41 7.48 H ABG pCO2 at Pt Temp 42.6 D 35.0 ABG pO2 at Pt Temp 71.2 70.6 ABG HCO3 26.2 H 26.0 ABG O2 Sat (Measured) 93.0 94.8 ABG O2 Content 18.8 19.0 ABG Base Excess 1.7 3.3 H Uday Test Positive Positive O2 Delivery Device Venti mask Oxygen Flow Rate 50% v/m 50% PEEP 0.0 Sodium Potassium Chloride Carbon Dioxide Anion Gap BUN Creatinine Random Glucose Calcium Phosphorus Magnesium Total Bilirubin Direct Bilirubin AST ALT Alkaline Phosphatase Total Protein Albumin Urine Color Urine Appearance Urine pH Urine Protein Urine Glucose (UA) Urine Ketones Urine Blood Urine Nitrite Urine Bilirubin Urine Urobilinogen Ur Leukocyte Esterase Urine RBC Urine WBC Hyaline Casts Urine Mucus 06/24/17 06/24/17 06/24/17 00:01 05:10 05:10 WBC 18.3 H RBC 4.85 Hgb 13.6 D Hct 40.6 MCV 83.8 MCHC 33.6 RDW 14.1 Plt Count 333 MPV 8.4 Neutrophils % Y Lymphocytes % Y Puncture Site ABG pH ABG pCO2 at Pt Temp ABG pO2 at Pt Temp ABG HCO3 ABG O2 Sat (Measured) ABG O2 Content ABG Base Excess Uday Test O2 Delivery Device Oxygen Flow Rate PEEP Sodium 137 Potassium 4.0 Chloride 99 Carbon Dioxide 27 Anion Gap 11 BUN 41 H D Creatinine 0.9 Random Glucose 170 H D Calcium 9.8 Phosphorus 1.9 L D Magnesium 2.2 Total Bilirubin 1.1 H D Direct Bilirubin 0.3 H D AST 36 ALT 34 D Alkaline Phosphatase 75 Total Protein 5.6 L Albumin 2.3 L D Urine Color Yellow Urine Appearance Clear Urine pH 5.0 Urine Protein Negative Urine Glucose (UA) Negative Urine Ketones Negative Urine Blood 2+ H Urine Nitrite Negative Urine Bilirubin Negative Urine Urobilinogen Negative Ur Leukocyte Esterase Negative Urine RBC 33 Urine WBC 1 Hyaline Casts 3 Urine Mucus Rare ASSESSMENT AND PLAN: 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
[2016-10-31 09:34] LABS: PLATELET ESTIMATE ADEQUATE (NORMAL)
[2016-10-31] MEDS: LACTATED RINGERS SOLUTION 1,000 ML IV SCH (09:42)
[2016-10-31] MEDS ORDERED: METOPROLOL SUCCINATE 100 MG TAB.SR.24H (FP) PO SCH (10:00)
[2016-10-31] MEDS ORDERED: CLOPIDOGREL BISULFATE 75 MG TABLET (FP) PO SCH (10:00)
[2016-10-31] MEDS ORDERED: amLODIPine BESYLATE 2.5 MG TABLET (FP) PO SCH (10:00)
[2016-10-31] MEDS ORDERED: SODIUM PHOSPHATE - 30 MM in SODIUM CHLORIDE 250 ML IVPB ONE (11:00)
--- NOTE | 2016-10-31 11:35 | PN ---
Progress Note, Physician History of Present Illness: Pt was transferred back to ICU. Post op day 10 NGT was inserted again, on low sucction. Pt with abd discomfort on and off. Pt with mild abd discomfort Pt w/o fever, chills. Pt w/o CP, SOB, Palp. Pt was seen and examined in ICU, in AM - Current Medication List Current Medications: Active Medications Aclidinium [place] (Tudorza -) 1 puff IH BID [facility] Last Admin: 10/30/16 23:00 Dose: 1 puff Albuterol Sulfate (Ventolin 0.083% Nebulizer Soln -) 1 amp NEB Q4H PRN PRN Reason: SHORT OF BREATH/WHEEZING Amlodipine Besylate (Norvasc -) 2.5 mg PO DAILY [facility] Atorvastatin Calcium (Lipitor -) 40 mg PO HS [facility] Last Admin: 10/30/16 21:36 Dose: Not Given Heparin Sodium (Porcine) (Heparin -) 5,000 unit SQ TID [facility] Last Admin: 10/31/16 06:26 Dose: 5,000 unit Sodium Chloride 20 meq/ Amino (Acids) 1,005 mls @ 82 mls/hr IV Q12H [facility] Last Admin: 10/31/16 00:00 Dose: 82 mls/hr Fat Emulsion Intravenous (Intralipid -) 250 mls @ 20.833 mls/hr IV DAILY@2200 [facility] Last Admin: 10/30/16 21:40 Dose: 20.833 mls/hr Pantoprazole Sodium (Protonix 40mg Ivpb (Pre-Docked)) 100 mls @ 200 mls/hr IVPB DAILY [facility] Lactated Ringer's (Lactated Ringers Solution) 1,000 mls @ 42 mls/hr IV ASDIR [facility] Last Admin: 10/31/16 09:42 Dose: 42 mls/hr Sodium Phosphate 30 mm/ Sodium (Chloride) 260 mls @ 62.5 mls/hr IVPB ONCE ONE Stop: 10/31/16 15:09 Metoclopramide HCl (Reglan Injection -) 10 mg IVPB Q6H-IV [facility] Last Admin: 10/31/16 09:41 Dose: 10 mg Metoprolol Succinate (Toprol Xl -) 200 mg PO DAILY [facility] Metoprolol Tartrate (Lopressor Injection -) 5 mg IVPUSH Q6H PRN PRN Reason: HYPERTENSION Last Admin: 10/31/16 06:27 Dose: 5 mg Multivitamins/Minerals (Infuvite Adult -) 10 ml IV DAILY [facility] Trav[place] 0.004% Eye (Drops) 1 each OU HS [facility] Last Admin: 10/30/16 21:41 Dose: 1 each Systane Ultra Eye (Drops) 1 each OU BID [facility] Last Admin: 10/30/16 21:41 Dose: 1 each Ondansetron HCl (Zofran Injection) 8 mg IVPB Q6H PRN PRN Reason: NAUSEA AND/OR VOMITING Oxycodone HCl (Roxicodone -) 5 mg PO Q6H PRN PRN Reason: PAIN - Objective Vital Signs: Vital Signs Temperature 98.1 F 10/31/16 10:00 Pulse Rate 112 H 10/31/16 10:00 Respiratory Rate 16 10/31/16 10:00 Blood Pressure 145/79 10/31/16 10:00 O2 Sat by Pulse Oximetry (%) 92 L 10/30/16 21:00 Constitutional: Yes: No Distress, Calm Cardiovascular: Yes: Regular Rate and Rhythm, S1, S2 Respiratory: Yes: Regular, Other (decreased BS bilat.) Gastrointestinal: Yes: Normal Bowel Sounds, Soft, Tenderness (mild, generalized) Edema: No Neurological: Yes: Alert, Oriented Labs: CBC, BMP 10/31/16 05:10 10/31/16 05:10 Problem List - Problems (1) Small bowel mass Code(s): K63.89 - OTHER SPECIFIED DISEASES OF INTESTINE (2) SBO (small bowel obstruction) Code(s): K56.69 - OTHER INTESTINAL OBSTRUCTION (3) Pneumatosis intestinalis Code(s): K63.89 - OTHER SPECIFIED DISEASES OF INTESTINE (4) CHF (congestive heart failure) Code(s): I50.9 - HEART FAILURE, UNSPECIFIED (5) CVA (cerebral infarction) Code(s): I63.9 - CEREBRAL INFARCTION, UNSPECIFIED (6) Chronic obstructive pulmonary disease Code(s): J44.9 - CHRONIC OBSTRUCTIVE PULMONARY DISEASE, UNSPECIFIED (7) Hyperlipidemia Code(s): E78.5 - HYPERLIPIDEMIA, UNSPECIFIED (8) Hypokalemia due to inadequate potassium intake Code(s): E87.6 - HYPOKALEMIA (9) Hypophosphatemia Assessment/Plan: to replete IV ( still minimal PO intake) Code(s): E83.39 - OTHER DISORDERS OF PHOSPHORUS METABOLISM (10) HTN (hypertension) Code(s): I10 - ESSENTIAL (PRIMARY) HYPERTENSION (11) Hypomagnesemia Code(s): E83.42 - HYPOMAGNESEMIA Assessment/Plan GI and surgical f/u appreciated post OP day 10 Pt wants his to make medical decisions if he cannot; both daughter agrees with pt. All family's questions were answered Pt is hemodynamically stable. Pt with poor PO intake; pt with N and V for the last couple of days; NGT was reinserted again; to f/u with Sx. Pt on Clinimix, lipids AM labs Prognosis: reserved Time spent for managing pt's care: 35 min.
[2016-10-31] MEDS: SYSTANE ULTRA EYE DROPS OU SCH ×2 (13:49→21:05)
[2016-10-31] MEDS: PANTOPRAZOLE SODIUM 100 ML IVPB SCH (13:49)
[2016-10-31] MEDS ORDERED: PT OWN MED DRAWER 7, Y5N ONE (14:46)
[2016-10-31] MEDS: AMINO ACIDS IV SCH ×2 (17:07)
[2016-10-31] MEDS: [UNRECOGNIZED DRUG - OTHER] IV SCH ×2 (17:07)
[2016-10-31] MEDS: SODIUM CHLORIDE IV SCH ×2 (17:07)
[2016-10-31] MEDS: ACLIDINIUM BROMIDE 400 MCG/INH AERO.POWD IH SCH ×2 (17:09→21:06)
[2016-10-31] MEDS: MULTIVIT INJ. ADULT COMBO WITH VIT K 1 COMBO 10 ML VIAL IV SCH (17:09)
[2016-10-31] MEDS: FAT EMULSIONS 250 ML IV SCH (21:04)
[2016-10-31] MEDS: ATORVASTATIN CA 40 MG TABLET (FP) PO SCH (21:05)
[2016-10-31] MEDS: TRAVATAN 0.004% OU SCH (21:05)
[2016-10-31] MEDS: EYE OU SCH (21:05)
[2016-10-31] MEDS: morphine CARPU-JECT 2 MG/1 ML DISP.SYRIN IVPUSH PRN (21:10)
[2016-11-01] MEDS: METOCLOPRAMIDE HCL INJECTION 10 MG/2 ML VIAL IVPB SCH ×4 (02:50→22:07)
[2016-11-01] MEDS: morphine CARPU-JECT 2 MG/1 ML DISP.SYRIN IVPUSH PRN ×3 (02:50→16:38)
[2016-11-01] MEDS: SODIUM CHLORIDE IV SCH ×3 (03:00→22:09)
[2016-11-01] MEDS: [UNRECOGNIZED DRUG - OTHER] IV SCH ×3 (03:00→22:09)
[2016-11-01] MEDS: AMINO ACIDS IV SCH ×3 (03:00→22:09)
[2016-11-01] MEDS: METOPROLOL TARTRATE 5 MG/5 ML VIAL IVPUSH PRN ×2 (04:30→09:42)
[2016-11-01] MEDS: HEPARIN NA (PORCINE) 5,000 UNITS/ML 1ML VIAL SQ SCH ×3 (05:46→22:07)
[2016-11-01 07:01] LABS: MCH 27.7 pg (25.7-33.7); MEAN PLT VOLUME 8.2 fl (7.5-11.1); PLATELET COUNT 312 K/MM3 (134-434); RDW 13.8 % (11.9-15.9); WHITE BLOOD COUNT 20.7 K/mm3 (4.0-10.0)
[2016-11-01 07:34] LABS: ANION GAP 10 (8-16); BILIRUBIN,TOTAL 0.8 mg/dL (0.2-1.0); CALCIUM 9.3 mg/dL (8.5-10.1); CO2 28 mmol/L (21-32); CREATININE 0.6 mg/dL (0.7-1.3); GLUCOSE,RANDOM 160 mg/dL (74-106); MAGNESIUM 1.9 mg/dL (1.8-2.4); PHOSPHOROUS 1.5 mg/dL (2.5-4.9); SGOT/AST 28 U/L (15-37); SGPT/ALT 29 U/L (12-78); TOT PROT 5.2 g/dl (6.4-8.2)
[2016-11-01 07:35] LABS: ALK PHOS 87 U/L (45-117)
[2016-11-01] MEDS: PANTOPRAZOLE SODIUM 100 ML IVPB SCH (09:32)
[2016-11-01] MEDS: LACTATED RINGERS SOLUTION 1,000 ML IV SCH (09:35)
[2016-11-01 09:37] LABS: PLATELET ESTIMATE ADEQUATE (NORMAL)
--- NOTE | 2016-11-01 10:49 | PN ---
Progress Note (short form) - Note Progress Note: Patient seen and examined in the ICU. Awake and alert. Still with Mild abdominal discomfort. Remains NPO. (+) Nausea is better Despite I&O recordings : e-lytes and volume status appear slightly better today. Intake & Output 10/29/16 10/30/16 10/31/16 11/01/16 23:59 23:59 23:59 23:59 Intake Total 1512 3092 1168 Output Total 2700 6100 1100 Balance -1188 -3008 68 Weight 129 lb 4 oz 131 lb 1 oz Last Vital Signs Temp Pulse Resp BP Pulse Ox 99.2 F 114 H 26 H 175/95 93 L 11/01/16 10:00 11/01/16 10:00 11/01/16 10:00 11/01/16 10:00 10/31/16 20:23 Active Medications Aclidinium [place] (Tudorza -) 1 puff IH BID [facility] Last Admin: 10/31/16 21:06 Dose: 1 puff Albuterol Sulfate (Ventolin 0.083% Nebulizer Soln -) 1 amp NEB Q4H PRN PRN Reason: SHORT OF BREATH/WHEEZING Amlodipine Besylate (Norvasc -) 2.5 mg PO DAILY [facility] Atorvastatin Calcium (Lipitor -) 40 mg PO HS [facility] Last Admin: 10/31/16 21:05 Dose: Not Given Heparin Sodium (Porcine) (Heparin -) 5,000 unit SQ TID [facility] Last Admin: 11/01/16 05:46 Dose: 5,000 unit Sodium Chloride 20 meq/ Amino (Acids) 1,005 mls @ 82 mls/hr IV Q12H [facility] Last Admin: 11/01/16 03:00 Dose: 82 mls/hr Fat Emulsion Intravenous (Intralipid -) 250 mls @ 20.833 mls/hr IV DAILY@2200 [facility] Last Admin: 10/31/16 21:04 Dose: 20.833 mls/hr Pantoprazole Sodium (Protonix 40mg Ivpb (Pre-Docked)) 100 mls @ 200 mls/hr IVPB DAILY [facility] Last Admin: 11/01/16 09:32 Dose: 200 mls/hr Lactated Ringer's (Lactated Ringers Solution) 1,000 mls @ 42 mls/hr IV ASDIR [facility] Last Admin: 11/01/16 09:35 Dose: 42 mls/hr Metoclopramide HCl (Reglan Injection -) 10 mg IVPB Q6H-IV [facility] Last Admin: 11/01/16 09:32 Dose: 10 mg Metoprolol Succinate (Toprol Xl -) 200 mg PO DAILY [facility] Metoprolol Tartrate (Lopressor Injection -) 5 mg IVPUSH Q6H PRN PRN Reason: HYPERTENSION Last Admin: 11/01/16 09:42 Dose: 5 mg Morphine Sulfate (Morphine Injection -) 2 mg IVPUSH Q4H PRN PRN Reason: PAIN LEVEL 1-5 Last Admin: 11/01/16 09:32 Dose: 2 mg Morphine Sulfate (Morphine Injection -) 4 mg IVPUSH Q4H PRN PRN Reason: PAIN LEVEL 6-10 Multivitamins/Minerals (Infuvite Adult -) 10 ml IV DAILY [facility] Last Admin: 10/31/16 17:09 Dose: 10 ml Travatan 0.004% Eye (Drops) 1 each OU HS [facility] Last Admin: 10/31/16 21:05 Dose: 1 each Systane Ultra Eye (Drops) 1 each OU BID [facility] Last Admin: 10/31/16 21:05 Dose: 1 each Ondansetron HCl (Zofran Injection) 8 mg IVPB Q6H PRN PRN Reason: NAUSEA AND/OR VOMITING Oxycodone HCl (Roxicodone -) 5 mg PO Q6H PRN PRN Reason: PAIN OBJECTIVE: Gen: Awake, mildly tachypneic at rest Heart: RRR Lung: decreased breath sounds at the bases Abd: soft, (+) BS, appropriately tender Ext: no edema Laboratory Results - last 24 hr 10/31/16 11/01/16 11/01/16 00:01 05:00 05:00 WBC 20.7 H RBC 4.89 Hgb 13.6 Hct 41.0 MCV 84.0 MCHC 33.0 RDW 13.8 Plt Count 312 MPV 8.2 Neutrophils % 83.0 H Lymphocytes % 2.0 L D Monocytes % 3.0 L Band Neutrophils 12.0 H D Platelet Estimate Adequate Platelet Comment No clumping noted Sodium 139 Potassium 3.6 Chloride 101 Carbon Dioxide 28 Anion Gap 10 BUN 22 H D Creatinine 0.6 L D Creat Clearance w eGFR > 60 Random Glucose 160 H Calcium 9.3 Phosphorus 1.5 L D Magnesium 1.9 Total Bilirubin 0.8 D AST 28 D ALT 29 Alkaline Phosphatase 87 Total Protein 5.2 L Albumin 2.0 L Urine Color Yellow Urine Appearance Clear Urine pH 5.0 Ur Specific [place] 1.010 Urine Protein Negative Urine Glucose (UA) Negative Urine Ketones Negative Urine Blood 2+ H Urine Nitrite Negative Urine Bilirubin Negative Urine Urobilinogen Negative Ur Leukocyte Esterase Negative Urine RBC 33 Urine WBC 1 Hyaline Casts 3 Urine Mucus Rare ASSESSMENT AND PLAN: 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
--- NOTE | 2016-11-01 11:58 | PN ---
Progress Note (short form) - Note Progress Note: asked to followup by Dr Dominguez now back in ICU with ileus rising WBC he is s/p small bowel resection 10/21, he has been off antiibotics since 10/22 no fevers WBC is normal, nurse notes cough with purulent sputum ngt now NPO Vital Signs Period Temp Pulse Resp BP Sys/Hernandez Pulse Ox Last 24 Hr 98.0 F-99.2 F 95-121 18-26 107-176/27-95 93 cor-rrr lungs bilateral rhonchi abd no distention, flat, tiffanie incison intact, +BS ext no edema CBC, BMP 11/01/16 05:00 11/01/16 05:00 Microbiology 10/31/16 00:01 Urine - Urine - Catheterized Urine Culture - Final NO GROWTH OBTAINED 10/28/16 14:35 Blood - Peripheral Venous Blood Culture - Preliminary NO GROWTH OBTAINED AFTER 72 HOURS, INCUBATION TO CONTINUE FOR 2 DAYS. 10/28/16 14:30 Blood - Peripheral Venous Blood Culture - Preliminary NO GROWTH OBTAINED AFTER 72 HOURS, INCUBATION TO CONTINUE FOR [address] scan no abscess/collections cxray bibasilar infiltrates meds reviewed a/p leukocytosis with 12% bands- sputum culture blood cultures ua and urine culture empiric cefepime, vancomycin d/w Dr Dominguez Problem List - Problems (1) Pneumatosis intestinalis Code(s): K63.89 - OTHER SPECIFIED DISEASES OF INTESTINE (2) SBO (small bowel obstruction) Code(s): K56.69 - OTHER INTESTINAL OBSTRUCTION
[2016-11-01] MEDS ORDERED: VANCOMYCIN 1 GRAM (PRE-DOCKED) 250 ML IVPB ONE (12:00)
[2016-11-01] MEDS ORDERED: SODIUM PHOSPHATE - 30 MM in SODIUM CHLORIDE 250 ML IVPB ONE (12:00)
[2016-11-01] MEDS ORDERED: CEFEPIME HCL 1 GM VIAL (RESTRICTED TO ID) IVPB SCH (12:15)
--- NOTE | 2016-11-01 13:02 | PN ---
Progress Note, Physician Chief Complaint: Pt is confused. History of Present Illness: 81-year-old male with no history of abdominal surgery presents to the emergency department complaining of periumbilical 6/10 sharp nonradiating intermittent discomfort with nausea no vomiting, fever, chills, chest pain, shortness of breath, flank pains, urinary symptoms. There are no alleviating or exacerbating factors. Last bowel movement 4 days ago. Timing/Duration: reports: intermittent Quality: reports: moderate - Current Medication List Current Medications: Active Medications Aclidinium [place] (Tudorza -) 1 puff IH BID [facility] Last Admin: 10/31/16 21:06 Dose: 1 puff Albuterol Sulfate (Ventolin 0.083% Nebulizer Soln -) 1 amp NEB Q4H PRN PRN Reason: SHORT OF BREATH/WHEEZING Amlodipine Besylate (Norvasc -) 2.5 mg PO DAILY [facility] Atorvastatin Calcium (Lipitor -) 40 mg PO HS [facility] Last Admin: 10/31/16 21:05 Dose: Not Given Heparin Sodium (Porcine) (Heparin -) 5,000 unit SQ TID [facility] Last Admin: 11/01/16 05:46 Dose: 5,000 unit Sodium Chloride 20 meq/ Amino (Acids) 1,005 mls @ 82 mls/hr IV Q12H [facility] Last Admin: 11/01/16 03:00 Dose: 82 mls/hr Fat Emulsion Intravenous (Intralipid -) 250 mls @ 20.833 mls/hr IV DAILY@2200 [facility] Last Admin: 10/31/16 21:04 Dose: 20.833 mls/hr Pantoprazole Sodium (Protonix 40mg Ivpb (Pre-Docked)) 100 mls @ 200 mls/hr IVPB DAILY [facility] Last Admin: 11/01/16 09:32 Dose: 200 mls/hr Lactated Ringer's (Lactated Ringers Solution) 1,000 mls @ 42 mls/hr IV ASDIR [facility] Last Admin: 11/01/16 09:35 Dose: 42 mls/hr Sodium Phosphate 30 mm/ Sodium (Chloride) 260 mls @ 62.5 mls/hr IVPB ONCE ONE Stop: 11/01/16 16:09 Cefepime HCl 1 gm/ Dextrose 100 mls @ 200 mls/hr IVPB Q8H-IV [facility] Metoclopramide HCl (Reglan Injection -) 10 mg IVPB Q6H-IV [facility] Last Admin: 11/01/16 09:32 Dose: 10 mg Metoprolol Succinate (Toprol Xl -) 200 mg PO DAILY [facility] Metoprolol Tartrate (Lopressor Injection -) 5 mg IVPUSH Q6H PRN PRN Reason: HYPERTENSION Last Admin: 11/01/16 09:42 Dose: 5 mg Morphine Sulfate (Morphine Injection -) 2 mg IVPUSH Q4H PRN PRN Reason: PAIN LEVEL 1-5 Last Admin: 11/01/16 09:32 Dose: 2 mg Morphine Sulfate (Morphine Injection -) 4 mg IVPUSH Q4H PRN PRN Reason: PAIN LEVEL 6-10 Multivitamins/Minerals (Infuvite Adult -) 10 ml IV DAILY [facility] Last Admin: 10/31/16 17:09 Dose: 10 ml Travatan 0.004% Eye (Drops) 1 each OU HS [facility] Last Admin: 10/31/16 21:05 Dose: 1 each Systane Ultra Eye (Drops) 1 each OU BID [facility] Last Admin: 10/31/16 21:05 Dose: 1 each Ondansetron HCl (Zofran Injection) 8 mg IVPB Q6H PRN PRN Reason: NAUSEA AND/OR VOMITING Oxycodone HCl (Roxicodone -) 5 mg PO Q6H PRN PRN Reason: PAIN - Objective Vital Signs: Vital Signs Temperature 99.2 F 11/01/16 10:00 Pulse Rate 114 H 11/01/16 10:00 Respiratory Rate 26 H 11/01/16 10:00 Blood Pressure 175/95 11/01/16 10:00 O2 Sat by Pulse Oximetry (%) 93 L 10/31/16 20:23 Constitutional: Yes: Anxious Eyes: Yes: WNL HENT: Yes: WNL Neck: Yes: WNL Cardiovascular: Yes: Pulse Irregular Respiratory: Yes: Diminished Gastrointestinal: Yes: Soft ...Rectal Exam: Yes: Deferred Genitourinary: No: Anuria Musculoskeletal: Yes: Muscle Weakness Extremities: Yes: Cool Edema: No Peripheral Pulses WNL: Yes Wound/Incision: Yes: Sutures Intact Neurological: Yes: Alert, Weakness Psychiatric: Yes: Other (anxiety) Labs: CBC, BMP 11/01/16 05:00 11/01/16 05:00 - ....Imaging Chest X-ray: Pending Problem List - Problems (1) Diastolic CHF Assessment/Plan: continue present medications. F/u Is and Os, daily weight, BUN/Cr, electrolytes. Code(s): I50.30 - UNSPECIFIED DIASTOLIC (CONGESTIVE) HEART FAILURE (2) Hyperlipidemia Code(s): E78.5 - HYPERLIPIDEMIA, UNSPECIFIED (3) PSVT (paroxysmal supraventricular tachycardia) Assessment/Plan: Changed labetolol to metoprolol ER; increase to 200 mg daily. Increase amlodipine if blood pressure remains elevated. ECHO 05/2016: normal LVEF. Keep K 4-4.5; f/u Mg, and keep 2-2.3.keep PO4 2.5-3.0. EKG 10/27/16: NSR; ? old IWMI. Pain management. Code(s): I47.1 - SUPRAVENTRICULAR TACHYCARDIA (4) SBO (small bowel obstruction) Assessment/Plan: f/u with surgeon. Code(s): K56.69 - OTHER INTESTINAL OBSTRUCTION (5) Small bowel mass Code(s): K63.89 - OTHER SPECIFIED DISEASES OF INTESTINE (6) HTN (hypertension) Assessment/Plan: Now on metoprolol ER for HTN and PSVT; would increase to 300 mg daily if needed (HTN; PSVT). On amlodipine 2.5 mg daily; increase as need for BP control. Serial BP and HR checks. Code(s): I10 - ESSENTIAL (PRIMARY) HYPERTENSION (7) Weakness Code(s): R53.1 - WEAKNESS (8) Confusion Code(s): R41.0 - DISORIENTATION, UNSPECIFIED
--- NOTE | 2016-11-01 13:19 | PN ---
Progress Note, Physician Chief Complaint: Pt feels weak; no chest pain or palpitations. History of Present Illness: 81-year-old male with no history of abdominal surgery presents to the emergency department complaining of periumbilical 6/10 sharp nonradiating intermittent discomfort with nausea no vomiting, fever, chills, chest pain, shortness of breath, flank pains, urinary symptoms. There are no alleviating or exacerbating factors. Last bowel movement 4 days ago. Timing/Duration: reports: intermittent Quality: reports: moderate - Current Medication List Current Medications: Active Medications Aclidinium [place] (Tudorza -) 1 puff IH BID [facility] Last Admin: 10/31/16 21:06 Dose: 1 puff Albuterol Sulfate (Ventolin 0.083% Nebulizer Soln -) 1 amp NEB Q4H PRN PRN Reason: SHORT OF BREATH/WHEEZING Amlodipine Besylate (Norvasc -) 2.5 mg PO DAILY [facility] Atorvastatin Calcium (Lipitor -) 40 mg PO HS [facility] Last Admin: 10/31/16 21:05 Dose: Not Given Heparin Sodium (Porcine) (Heparin -) 5,000 unit SQ TID [facility] Last Admin: 11/01/16 05:46 Dose: 5,000 unit Sodium Chloride 20 meq/ Amino (Acids) 1,005 mls @ 82 mls/hr IV Q12H [facility] Last Admin: 11/01/16 03:00 Dose: 82 mls/hr Fat Emulsion Intravenous (Intralipid -) 250 mls @ 20.833 mls/hr IV DAILY@2200 [facility] Last Admin: 10/31/16 21:04 Dose: 20.833 mls/hr Pantoprazole Sodium (Protonix 40mg Ivpb (Pre-Docked)) 100 mls @ 200 mls/hr IVPB DAILY [facility] Last Admin: 11/01/16 09:32 Dose: 200 mls/hr Lactated Ringer's (Lactated Ringers Solution) 1,000 mls @ 42 mls/hr IV ASDIR [facility] Last Admin: 11/01/16 09:35 Dose: 42 mls/hr Sodium Phosphate 30 mm/ Sodium (Chloride) 260 mls @ 62.5 mls/hr IVPB ONCE ONE Stop: 11/01/16 16:09 Cefepime HCl 1 gm/ Dextrose 100 mls @ 200 mls/hr IVPB Q8H-IV [facility] Metoclopramide HCl (Reglan Injection -) 10 mg IVPB Q6H-IV [facility] Last Admin: 11/01/16 09:32 Dose: 10 mg Metoprolol Succinate (Toprol Xl -) 200 mg PO DAILY [facility] Metoprolol Tartrate (Lopressor Injection -) 5 mg IVPUSH Q6H PRN PRN Reason: HYPERTENSION Last Admin: 11/01/16 09:42 Dose: 5 mg Morphine Sulfate (Morphine Injection -) 2 mg IVPUSH Q4H PRN PRN Reason: PAIN LEVEL 1-5 Last Admin: 11/01/16 09:32 Dose: 2 mg Morphine Sulfate (Morphine Injection -) 4 mg IVPUSH Q4H PRN PRN Reason: PAIN LEVEL 6-10 Multivitamins/Minerals (Infuvite Adult -) 10 ml IV DAILY [facility] Last Admin: 10/31/16 17:09 Dose: 10 ml [place] 0.004% Eye (Drops) 1 each OU HS [facility] Last Admin: 10/31/16 21:05 Dose: 1 each Systane Ultra Eye (Drops) 1 each OU BID [facility] Last Admin: 10/31/16 21:05 Dose: 1 each Ondansetron HCl (Zofran Injection) 8 mg IVPB Q6H PRN PRN Reason: NAUSEA AND/OR VOMITING Oxycodone HCl (Roxicodone -) 5 mg PO Q6H PRN PRN Reason: PAIN - Objective Vital Signs: Vital Signs Temperature 99.2 F 11/01/16 10:00 Pulse Rate 114 H 11/01/16 10:00 Respiratory Rate 26 H 11/01/16 10:00 Blood Pressure 175/95 11/01/16 10:00 O2 Sat by Pulse Oximetry (%) 93 L 10/31/16 20:23 Constitutional: Yes: Anxious Eyes: Yes: WNL HENT: Yes: Nasal Congestion Neck: Yes: WNL Cardiovascular: Yes: Pulse Irregular Respiratory: Yes: Regular Gastrointestinal: Yes: Soft ...Rectal Exam: Yes: Deferred Genitourinary: No: Anuria Musculoskeletal: Yes: Muscle Weakness Extremities: Yes: Cool Edema: No Peripheral Pulses WNL: No Peripheral Pulses: Left Doralis Pedis: 1+, Right Dorsalis Pedis: 1+ Integumentary: Yes: Incision Wound/Incision: Yes: Sutures Intact Neurological: Yes: Alert Psychiatric: Yes: Other (anxiety) Labs: CBC, BMP 11/01/16 05:00 11/01/16 05:00 - ....Imaging Other: Image Reviewed (telemetry: NSR) Problem List - Problems (1) Diastolic CHF Assessment/Plan: continue present medications (amlodipine; metoprolol). F/u Is and Os, daily weight, BUN/Cr, electrolytes. Code(s): I50.30 - UNSPECIFIED DIASTOLIC (CONGESTIVE) HEART FAILURE (2) Hyperlipidemia Code(s): E78.5 - HYPERLIPIDEMIA, UNSPECIFIED (3) PSVT (paroxysmal supraventricular tachycardia) Assessment/Plan: Changed labetolol to metoprolol ER; increase to 200 mg daily. Increase amlodipine if blood pressure remains elevated. ECHO 05/2016: normal LVEF. Keep K 4-4.5; f/u Mg, and keep 2-2.3.keep PO4 2.5-3.0. EKG 10/27/16: NSR; ? old IWMI. Pain management. Code(s): I47.1 - SUPRAVENTRICULAR TACHYCARDIA (4) SBO (small bowel obstruction) Assessment/Plan: f/u with surgeon. Code(s): K56.69 - OTHER INTESTINAL OBSTRUCTION (5) Small bowel mass Code(s): K63.89 - OTHER SPECIFIED DISEASES OF INTESTINE (6) HTN (hypertension) Code(s): I10 - ESSENTIAL (PRIMARY) HYPERTENSION (7) Weakness Code(s): R53.1 - WEAKNESS (8) Confusion Code(s): R41.0 - DISORIENTATION, UNSPECIFIED Assessment/Plan cc time spent reviewing chart, examining pt, and writing note: 40 minutes.
--- NOTE | 2016-11-01 13:21 | PN ---
Progress Note, Physician Chief Complaint: Pt alert; weak (had to be helped by two persons to stand up, balance on his walker, to move a few steps from his bed to a chair). History of Present Illness: 81-year-old male with no history of abdominal surgery presents to the emergency department complaining of periumbilical 6/10 sharp nonradiating intermittent discomfort with nausea no vomiting, fever, chills, chest pain, shortness of breath, flank pains, urinary symptoms. There are no alleviating or exacerbating factors. Last bowel movement 4 days ago. - Current Medication List Current Medications: Active Medications Aclidinium [place] (Tudorza -) 1 puff IH BID [facility] Last Admin: 10/31/16 21:06 Dose: 1 puff Albuterol Sulfate (Ventolin 0.083% Nebulizer Soln -) 1 amp NEB Q4H PRN PRN Reason: SHORT OF BREATH/WHEEZING Amlodipine Besylate (Norvasc -) 2.5 mg PO DAILY [facility] Atorvastatin Calcium (Lipitor -) 40 mg PO HS [facility] Last Admin: 10/31/16 21:05 Dose: Not Given Heparin Sodium (Porcine) (Heparin -) 5,000 unit SQ TID [facility] Last Admin: 11/01/16 05:46 Dose: 5,000 unit Sodium Chloride 20 meq/ Amino (Acids) 1,005 mls @ 82 mls/hr IV Q12H [facility] Last Admin: 11/01/16 03:00 Dose: 82 mls/hr Fat Emulsion Intravenous (Intralipid -) 250 mls @ 20.833 mls/hr IV DAILY@2200 [facility] Last Admin: 10/31/16 21:04 Dose: 20.833 mls/hr Pantoprazole Sodium (Protonix 40mg Ivpb (Pre-Docked)) 100 mls @ 200 mls/hr IVPB DAILY [facility] Last Admin: 11/01/16 09:32 Dose: 200 mls/hr Lactated Ringer's (Lactated Ringers Solution) 1,000 mls @ 42 mls/hr IV ASDIR [facility] Last Admin: 11/01/16 09:35 Dose: 42 mls/hr Sodium Phosphate 30 mm/ Sodium (Chloride) 260 mls @ 62.5 mls/hr IVPB ONCE ONE Stop: 11/01/16 16:09 Cefepime HCl 1 gm/ Dextrose 100 mls @ 200 mls/hr IVPB Q8H-IV [facility] Metoclopramide HCl (Reglan Injection -) 10 mg IVPB Q6H-IV [facility] Last Admin: 11/01/16 09:32 Dose: 10 mg Metoprolol Succinate (Toprol Xl -) 200 mg PO DAILY [facility] Metoprolol Tartrate (Lopressor Injection -) 5 mg IVPUSH Q6H PRN PRN Reason: HYPERTENSION Last Admin: 11/01/16 09:42 Dose: 5 mg Morphine Sulfate (Morphine Injection -) 2 mg IVPUSH Q4H PRN PRN Reason: PAIN LEVEL 1-5 Last Admin: 11/01/16 09:32 Dose: 2 mg Morphine Sulfate (Morphine Injection -) 4 mg IVPUSH Q4H PRN PRN Reason: PAIN LEVEL 6-10 Multivitamins/Minerals (Infuvite Adult -) 10 ml IV DAILY [facility] Last Admin: 10/31/16 17:09 Dose: 10 ml [place] 0.004% Eye (Drops) 1 each OU HS [facility] Last Admin: 10/31/16 21:05 Dose: 1 each Systane Ultra Eye (Drops) 1 each OU BID [facility] Last Admin: 10/31/16 21:05 Dose: 1 each Ondansetron HCl (Zofran Injection) 8 mg IVPB Q6H PRN PRN Reason: NAUSEA AND/OR VOMITING Oxycodone HCl (Roxicodone -) 5 mg PO Q6H PRN PRN Reason: PAIN - Objective Vital Signs: Vital Signs Temperature 99.2 F 11/01/16 10:00 Pulse Rate 114 H 11/01/16 10:00 Respiratory Rate 26 H 11/01/16 10:00 Blood Pressure 175/95 11/01/16 10:00 O2 Sat by Pulse Oximetry (%) 93 L 10/31/16 20:23 Constitutional: Yes: Calm Eyes: Yes: WNL HENT: Yes: WNL Neck: Yes: Supple Cardiovascular: Yes: Regular Rate and Rhythm, S1, S2, S4 Respiratory: Yes: Regular Gastrointestinal: Yes: Soft ...Rectal Exam: Yes: Deferred Genitourinary: No: Anuria Breast(s): Yes: WNL Musculoskeletal: Yes: Joint Stiffness, Muscle Weakness Extremities: Yes: Cool Edema: No Peripheral Pulses WNL: No Peripheral Pulses: Left Doralis Pedis: 1+, Right Dorsalis Pedis: 1+ Integumentary: Yes: Incision Wound/Incision: Yes: Donna Intact Neurological: Yes: Alert, Weakness Psychiatric: Yes: Alert Labs: CBC, BMP 11/01/16 05:00 11/01/16 05:00 Abnormal Lab Results 11/01/16 11/01/16 11/01/16 05:00 05:00 17:15 WBC 20.7 H Neutrophils % 83.0 H Lymphocytes % 2.0 L D Monocytes % 3.0 L Band Neutrophils 12.0 H D BUN 22 H D Creatinine 0.6 L D Random Glucose 160 H Phosphorus 1.5 L D Total Protein 5.2 L Albumin 2.0 L Urine Protein 1+ H Urine Glucose (UA) 1+ H Urine Blood 2+ H - ....Imaging Other: Image Reviewed (telemetry: NSR) Problem List - Problems (1) Diastolic CHF Assessment/Plan: continue present medications (amlodipine; metoprolol). Increase amlodipine; f/u BP. F/u Is and Os, daily weight, BUN/Cr, electrolytes. Code(s): I50.30 - UNSPECIFIED DIASTOLIC (CONGESTIVE) HEART FAILURE (2) Hyperlipidemia Assessment/Plan: On atorvastatin; keep LDL cholesterol < 70 mg/dL. Code(s): E78.5 - HYPERLIPIDEMIA, UNSPECIFIED (3) PSVT (paroxysmal supraventricular tachycardia) Assessment/Plan: Changed labetolol to metoprolol ER; increase to 200 mg daily. No further PSVT notrd. Increase amlodipine if blood pressure remains elevated. ECHO 05/2016: normal LVEF. Keep K 4-4.5; f/u Mg, and keep 2-2.3.keep PO4 2.5-3.0. EKG 10/27/16: NSR; ? old IWMI. Pain management. Code(s): I47.1 - SUPRAVENTRICULAR TACHYCARDIA (4) SBO (small bowel obstruction) Assessment/Plan: f/u with surgeon. Code(s): K56.69 - OTHER INTESTINAL OBSTRUCTION (5) Small bowel mass Code(s): K63.89 - OTHER SPECIFIED DISEASES OF INTESTINE (6) HTN (hypertension) Assessment/Plan: Now on metoprolol ER for HTN and PSVT; would increase to 300 mg daily if needed (HTN; PSVT). On amlodipine 2.5 mg daily; increase as need for BP control. Serial BP and HR checks. Code(s): I10 - ESSENTIAL (PRIMARY) HYPERTENSION (7) Weakness Code(s): R53.1 - WEAKNESS (8) Confusion Assessment/Plan: head CT: no acute pathology. F/u with neurologist. Code(s): R41.0 - DISORIENTATION, UNSPECIFIED (9) Hypothyroid Assessment/Plan: decreased TSH; f/u free T3 and free T4. Code(s): E03.9 - HYPOTHYROIDISM, UNSPECIFIED Assessment/Plan cc time spent reviewing chart, examining pt, and writing note: 35minutes.
[2016-11-01] MEDS: CEFEPIME 1 GM in DEXTROSE 5%-WATER - 100 ML IVPB SCH ×2 (14:00→18:57)
[2016-11-01] MEDS ORDERED: PT OWN MED DRAWER 7, Y5N ONE ×3 (15:35→18:55)
--- NOTE | 2016-11-01 15:35 | PN ---
Progress Note, Physician History of Present Illness: Pt was transferred back to ICU. Post op day 11 NGT was inserted again, on low sucction. Pt with cough and productive yellow sputum Pt with mild abd discomfort on and off. Pt feels tired, after sitting about 2 hours in the chair. Pt w/o fever, chills. Pt w/o CP, SOB, Palp. Pt's family at bed side (, 2 dg- one from [place]-, one grandg.) - Current Medication List Current Medications: Active Medications Aclidinium [place] (Tudorza -) 1 puff IH BID [facility] Last Admin: 10/31/16 21:06 Dose: 1 puff Albuterol Sulfate (Ventolin 0.083% Nebulizer Soln -) 1 amp NEB Q4H PRN PRN Reason: SHORT OF BREATH/WHEEZING Amlodipine Besylate (Norvasc -) 2.5 mg PO DAILY [facility] Atorvastatin Calcium (Lipitor -) 40 mg PO HS [facility] Last Admin: 10/31/16 21:05 Dose: Not Given Heparin Sodium (Porcine) (Heparin -) 5,000 unit SQ TID [facility] Last Admin: 11/01/16 05:46 Dose: 5,000 unit Sodium Chloride 20 meq/ Amino (Acids) 1,005 mls @ 82 mls/hr IV Q12H [facility] Last Admin: 11/01/16 03:00 Dose: 82 mls/hr Fat Emulsion Intravenous (Intralipid -) 250 mls @ 20.833 mls/hr IV DAILY@2200 [facility] Last Admin: 10/31/16 21:04 Dose: 20.833 mls/hr Pantoprazole Sodium (Protonix 40mg Ivpb (Pre-Docked)) 100 mls @ 200 mls/hr IVPB DAILY [facility] Last Admin: 11/01/16 09:32 Dose: 200 mls/hr Lactated Ringer's (Lactated Ringers Solution) 1,000 mls @ 42 mls/hr IV ASDIR [facility] Last Admin: 11/01/16 09:35 Dose: 42 mls/hr Sodium Phosphate 30 mm/ Sodium (Chloride) 260 mls @ 62.5 mls/hr IVPB ONCE ONE Stop: 11/01/16 16:09 Cefepime HCl 1 gm/ Dextrose 100 mls @ 200 mls/hr IVPB Q8H-IV [facility] Metoclopramide HCl (Reglan Injection -) 10 mg IVPB Q6H-IV [facility] Last Admin: 11/01/16 09:32 Dose: 10 mg Metoprolol Succinate (Toprol Xl -) 200 mg PO DAILY [facility] Metoprolol Tartrate (Lopressor Injection -) 5 mg IVPUSH Q6H PRN PRN Reason: HYPERTENSION Last Admin: 11/01/16 09:42 Dose: 5 mg Morphine Sulfate (Morphine Injection -) 2 mg IVPUSH Q4H PRN PRN Reason: PAIN LEVEL 1-5 Last Admin: 11/01/16 09:32 Dose: 2 mg Morphine Sulfate (Morphine Injection -) 4 mg IVPUSH Q4H PRN PRN Reason: PAIN LEVEL 6-10 Multivitamins/Minerals (Infuvite Adult -) 10 ml IV DAILY [facility] Last Admin: 10/31/16 17:09 Dose: 10 ml Trav[place] 0.004% Eye (Drops) 1 each OU HS [facility] Last Admin: 10/31/16 21:05 Dose: 1 each Systane Ultra Eye (Drops) 1 each OU BID [facility] Last Admin: 10/31/16 21:05 Dose: 1 each Ondansetron HCl (Zofran Injection) 8 mg IVPB Q6H PRN PRN Reason: NAUSEA AND/OR VOMITING Oxycodone HCl (Roxicodone -) 5 mg PO Q6H PRN PRN Reason: PAIN - Objective Vital Signs: Vital Signs Temperature 99.0 F 11/01/16 14:00 Pulse Rate 117 H 11/01/16 14:00 Respiratory Rate 20 11/01/16 14:00 Blood Pressure 154/82 11/01/16 14:00 O2 Sat by Pulse Oximetry (%) 93 L 10/31/16 20:23 Constitutional: Yes: No Distress, Calm Cardiovascular: Yes: Tachycardia, S1, S2 Respiratory: Yes: Regular, Other (diminushed BS, coarse BS) Gastrointestinal: Yes: Normal Bowel Sounds, Soft, Tenderness (minimal) Edema: No Neurological: Yes: Alert, Oriented Labs: CBC, BMP 11/01/16 05:00 11/01/16 05:00 Problem List - Problems (1) Small bowel mass Code(s): K63.89 - OTHER SPECIFIED DISEASES OF INTESTINE (2) SBO (small bowel obstruction) Code(s): K56.69 - OTHER INTESTINAL OBSTRUCTION (3) Pneumatosis intestinalis Code(s): K63.89 - OTHER SPECIFIED DISEASES OF INTESTINE (4) CHF (congestive heart failure) Code(s): I50.9 - HEART FAILURE, UNSPECIFIED (5) CVA (cerebral infarction) Code(s): I63.9 - CEREBRAL INFARCTION, UNSPECIFIED (6) Chronic obstructive pulmonary disease Code(s): J44.9 - CHRONIC OBSTRUCTIVE PULMONARY DISEASE, UNSPECIFIED (7) Hyperlipidemia Code(s): E78.5 - HYPERLIPIDEMIA, UNSPECIFIED (8) Hypokalemia due to inadequate potassium intake Code(s): E87.6 - HYPOKALEMIA (9) Hypophosphatemia Code(s): E83.39 - OTHER DISORDERS OF PHOSPHORUS METABOLISM (10) HTN (hypertension) Code(s): I10 - ESSENTIAL (PRIMARY) HYPERTENSION (11) Hypomagnesemia Code(s): E83.42 - HYPOMAGNESEMIA (12) Bandemia Assessment/Plan: Pt was seen by ID again; started on empirically on IV abtx. Code(s): D72.825 - BANDEMIA Assessment/Plan GI and surgical f/u appreciated post OP day 11 Pt wants his to make medical decisions if he cannot; both daughter agrees with pt. All family's questions were answered Pt is hemodynamically stable. Pt with poor PO intake; pt with N and V for the last couple of days; NGT was reinserted again; to f/u with Sx. Pt on Clinimix, lipids On IV abtx AM labs. Pt's condition and treatment was d/w pt.s family. All questions were answered. Prognosis: reserved. Case was d/w pt's nurse. Time spent for managing pt's care: 40 min.
[2016-11-01] MEDS: ACLIDINIUM BROMIDE 400 MCG/INH AERO.POWD IH SCH ×2 (16:21→22:10)
[2016-11-01] MEDS: SYSTANE ULTRA EYE DROPS OU SCH ×2 (16:21→22:09)
[2016-11-01] MEDS: MULTIVIT INJ. ADULT COMBO WITH VIT K 1 COMBO 10 ML VIAL IV SCH (17:29)
[2016-11-01 20:37] LABS: URINE APPEARANCE CLEAR; URINE BILIRUBIN NEGATIVE (NEGATIVE); URINE COLOR YELLOW; URINE GLUCOSE (UA) 1+ (NEGATIVE); URINE KETONE NEGATIVE (NEGATIVE); URINE LEUK ESTERASE NEGATIVE (NEGATIVE); URINE NITRITE NEGATIVE (NEGATIVE); URINE UROBILINOGEN NEGATIVE E.U./dl (0.2-1.0)
[2016-11-01] MEDS: morphine CARPU-JECT 4 MG/1 ML DISP.SYRIN IVPUSH PRN (20:40)
[2016-11-01 20:53] LABS: URINE BLOOD 2+ (NEGATIVE); URINE PROTEIN 1+ (NEGATIVE)
[2016-11-01 20:54] LABS: URINE BACTERIA RARE /hpf (NONE SEEN); URINE MUCUS RARE; URINE RBC 11 /hpf (0-3); URINE WBC 5 /hpf (3-5)
[2016-11-01] MEDS: ATORVASTATIN CA 40 MG TABLET (FP) PO SCH (21:58)
[2016-11-01] MEDS: EYE OU SCH (22:08)
[2016-11-01] MEDS: TRAVATAN 0.004% OU SCH (22:08)
[2016-11-01] MEDS: FAT EMULSIONS 250 ML IV SCH (22:08)
[2016-11-02] MEDS: METOCLOPRAMIDE HCL INJECTION 10 MG/2 ML VIAL IVPB SCH ×4 (02:14→22:19)
[2016-11-02] MEDS: CEFEPIME 1 GM in DEXTROSE 5%-WATER - 100 ML IVPB SCH ×2 (02:14→09:34)
[2016-11-02 06:37] LABS: MCH 27.5 pg (25.7-33.7); MCHC 32.8 g/dl (32.0-35.9); MEAN CELL VOLUME 83.9 fl (80-96); MEAN PLT VOLUME 8.7 fl (7.5-11.1); PLATELET COUNT 334 K/MM3 (134-434); RDW 14.3 % (11.9-15.9); WHITE BLOOD COUNT 24.5 K/mm3 (4.0-10.0)
[2016-11-02] MEDS: HEPARIN NA (PORCINE) 5,000 UNITS/ML 1ML VIAL SQ SCH ×3 (06:39→22:19)
[2016-11-02 07:10] LABS: ALBUMIN 1.8 g/dl (3.4-5.0); ANION GAP 11 (8-16); CALCIUM 8.9 mg/dL (8.5-10.1); CO2 28 mmol/L (21-32); GLUCOSE,RANDOM 119 mg/dL (74-106); MAGNESIUM 1.6 mg/dL (1.8-2.4)
[2016-11-02 07:13] LABS: ALK PHOS 99 U/L (45-117); BILIRUBIN,TOTAL 0.9 mg/dL (0.2-1.0); CREATININE 0.6 mg/dL (0.7-1.3); PHOSPHOROUS 1.7 mg/dL (2.5-4.9); SGOT/AST 37 U/L (15-37); SGPT/ALT 32 U/L (12-78); TOT PROT 5.1 g/dl (6.4-8.2)
[2016-11-02] MEDS ORDERED: POTASSIUM PHOSPHATE 30 MM in SODIUM CHLORIDE 250 ML IVPB ONE (07:48)
[2016-11-02] MEDS: LACTATED RINGERS SOLUTION 1,000 ML IV SCH ×2 (08:00→22:20)
[2016-11-02] MEDS: KCL 10 MEQ IVPB 100 ML IVPB SCH ×2 (08:00→09:00)
[2016-11-02 08:30] LABS: PLATELET ESTIMATE ADEQUATE (NORMAL)
[2016-11-02] MEDS ORDERED: MAGNESIUM SULF 50% (8.12 MEQ/2 ML-1 GM VIAL) IVPB ONE (08:30)
--- NOTE | 2016-11-02 08:54 | PN ---
Progress Note (short form) - Note Progress Note: awake, confused +NGT he is s/p small bowel resection 10/21 ngt NPO Vital Signs Period Temp Pulse Resp BP Sys/Hernandez Pulse Ox Last 24 Hr 98.6 F-99.6 F 90-124 16-26 140-175/72-95 94-96 cor-rrr lungs decreased bs at bases +rhonchi abd firm, tiffanie/incision intact ext no edema CBC, BMP 11/02/16 05:20 11/02/16 05:20 ct scan no abscess/collections cxray LLL infiltrate meds reviewed a/p pneumonia LLL continue cefepime day #1 s/p vancomycin daily f/u cultures s/p small bowel resection 10/21 Problem List - Problems (1) Pneumatosis intestinalis Code(s): K63.89 - OTHER SPECIFIED DISEASES OF INTESTINE (2) SBO (small bowel obstruction) Code(s): K56.69 - OTHER INTESTINAL OBSTRUCTION
--- NOTE | 2016-11-02 09:26 | PN ---
Physical Exam: SUBJECTIVE: Patient seen and examined. confused today - knows he is a hospital but unsure of which one. says it is fall , not oriented to date or situation. in wrist restraints because he was attempting to pull out his leads. c/o feeling cold and hiccups. denies chest pain, palpitations, abdominal pain, fever, cough, nausea, vomiting. OBJECTIVE: Vital Signs Period Temp Pulse Resp BP Sys/Hernandez Pulse Ox Last 24 Hr 98.6 F-99.6 F 90-124 16-26 140-175/72-95 94-96 GENERAL: awake, alert, in wrist restraints, calm but wriggling his wrists to attempt to take off his restraints. HEAD: Normal with no signs of trauma. bitemporal wasting EYES: Pupils equal, round and reactive to light, extraocular movements intact, sclera anicteric, conjunctiva clear. No lid lag. EARS, NOSE, THROAT: left nostril with NGT to wall suction, oropharynx clear without exudates/lesions/erythema. Moist mucous membranes. LUNGS: quiet at bases, no crackles, no wheezing No accessory muscle use. HEART: Regular rhythm, tachycardia, normal S1 and S2 without murmur, rub or gallop. ABDOMEN: soft, tender at ecchymosis sites located midquadrant right and left next to but not inclusive of insicion line, nondistended, hypoactive bowel sounds, no guarding, no rebound, no masses. mildline incision with tiffanie in place without erythema/discharge UPPER EXTREMITIES: 2+ radial, pulses, cool hands, well-perfused. No cyanosis. + clubbing. No peripheral edema. LOWER EXTREMITIES: 2+ dorsalis pulses, warm, well-perfused. No calf tenderness. No peripheral edema. NEUROLOGICAL:oriented to person, not place/date/situation. Laboratory Results - last 24 hr 11/01/16 11/01/16 11/02/16 05:00 17:15 05:20 WBC 20.7 H 24.5 H RBC 4.89 4.60 Hgb 13.6 12.7 Hct 41.0 38.6 MCV 84.0 83.9 MCHC 33.0 32.8 RDW 13.8 14.3 Plt Count 312 334 MPV 8.2 8.7 Neutrophils % 83.0 H 76.0 Lymphocytes % 2.0 L D 2.0 L Monocytes % 3.0 L 2.0 L Eosinophils % 0.0 D Basophils % 0.0 Band Neutrophils 12.0 H D 19.0 H D Myelocytes 1 Differential Comment Manual diff done Platelet Estimate Adequate Adequate Platelet Comment No clumping noted Sodium Potassium Chloride Carbon Dioxide Anion Gap BUN Creatinine Creat Clearance w eGFR Random Glucose Calcium Phosphorus Magnesium Total Bilirubin AST ALT Alkaline Phosphatase Total Protein Albumin Urine Color Yellow Urine Appearance Clear Urine pH 6.0 Ur Specific [place] 1.010 Urine Protein 1+ H Urine Glucose (UA) 1+ H Urine Ketones Negative Urine Blood 2+ H Urine Nitrite Negative Urine Bilirubin Negative Urine Urobilinogen Negative Ur Leukocyte Esterase Negative Urine RBC 11 Urine WBC 5 Urine Bacteria Rare Urine Mucus Rare 11/02/16 05:20 WBC RBC Hgb Hct MCV MCHC RDW Plt Count MPV Neutrophils % Lymphocytes % Monocytes % Eosinophils % Basophils % Band Neutrophils Myelocytes Differential Comment Platelet Estimate Platelet Comment Sodium 141 Potassium 3.3 L Chloride 102 Carbon Dioxide 28 Anion Gap 11 BUN 17 D Creatinine 0.6 L Creat Clearance w eGFR > 60 Random Glucose 119 H D Calcium 8.9 Phosphorus 1.7 L Magnesium 1.6 L Total Bilirubin 0.9 AST 37 D ALT 32 Alkaline Phosphatase 99 Total Protein 5.1 L Albumin 1.8 L Urine Color Urine Appearance Urine pH Ur Specific [place] Urine Protein Urine Glucose (UA) Urine Ketones Urine Blood Urine Nitrite Urine Bilirubin Urine Urobilinogen Ur Leukocyte Esterase Urine RBC Urine WBC Urine Bacteria Urine Mucus Active Medications Generic Name Dose Route Start Last Admin Trade Name Freq PRN Reason Stop Dose Admin Aclidinium [place] 1 puff 10/30/16 22:00 11/01/16 22:10 Tudorza - IH 1 puff BID [facility] Administration Albuterol Sulfate 1 amp 10/30/16 14:35 Ventolin 0.083% Nebulizer Soln - NEB Q4H PRN SHORT OF BREATH/WHEEZING Amlodipine Besylate 2.5 mg 10/31/16 10:00 Norvasc - PO DAILY [facility] Atorvastatin Calcium 40 mg 10/30/16 22:00 11/01/16 21:58 Lipitor - PO Not Given HS [facility] Heparin Sodium (Porcine) 5,000 unit 10/30/16 22:00 11/02/16 06:39 Heparin - SQ 5,000 unit TID [facility] Administration Sodium Chloride 20 meq/ Amino 1,005 mls @ 82 mls/hr 10/30/16 23:00 11/01/16 22: 09 Acids IV Not Given Q12H [facility] Fat Emulsion Intravenous 250 mls @ 20.833 mls/hr 10/30/16 22:00 11/01/16 22:08 Intralipid - IV 20.833 mls/hr DAILY@2200 [facility] Administration Pantoprazole Sodium 100 mls @ 200 mls/hr 10/31/16 10:00 11/01/16 09:32 Protonix 40mg Ivpb (Pre-Docked) IVPB 200 mls/hr DAILY [facility] Administration Lactated Ringer's 1,000 mls @ 42 mls/hr 10/31/16 08:00 11/02/16 08:00 Lactated Ringers Solution IV Not Given ASDIR [facility] Cefepime HCl 1 gm/ Dextrose 100 mls @ 200 mls/hr 11/01/16 12:15 11/02/16 02:14 IVPB 200 mls/hr Q8H-IV [facility] Administration Potassium Phosphate 30 mm/ 260 mls @ 43.333 mls/hr 11/02/16 07:48 Sodium Chloride IVPB 11/02/16 13:47 ONCE ONE Potassium Chloride 100 mls @ 100 mls/hr 11/02/16 08:00 11/02/16 08:00 Potassium Chloride 10 Meq Premix Ivpb - IVPB 11/02/16 09:59 100 mls/hr Q60M [facility] Administration Metoclopramide HCl 10 mg 10/30/16 15:45 11/02/16 02:14 Reglan Injection - IVPB 10 mg Q6H-IV [facility] Administration Metoprolol Succinate 200 mg 10/31/16 10:00 Toprol Xl - PO DAILY [facility] Metoprolol Tartrate 5 mg 10/30/16 21:20 11/01/16 09:42 Lopressor Injection - IVPUSH 5 mg Q6H PRN Administration HYPERTENSION Morphine Sulfate 2 mg 10/31/16 20:19 11/01/16 16:38 Morphine Injection - IVPUSH 2 mg Q4H PRN Administration PAIN LEVEL 1-5 Morphine Sulfate 4 mg 10/31/16 20:21 11/01/16 20:40 Morphine Injection - IVPUSH 4 mg Q4H PRN Administration PAIN LEVEL 6-10 Multivitamins/Minerals 10 ml 10/31/16 10:00 11/01/16 17:29 Infuvite Adult - IV 10 ml DAILY [facility] Administration Travatan 0.004% Eye 1 each 10/30/16 22:00 11/01/16 22:08 Drops OU 1 each HS [facility] Administration Systane Ultra Eye 1 each 10/30/16 22:00 11/01/16 22:09 Drops OU 1 each BID [facility] Administration Ondansetron HCl 8 mg 10/30/16 14:35 Zofran Injection IVPB Q6H PRN NAUSEA AND/OR VOMITING Oxycodone HCl 5 mg 10/30/16 14:35 Roxicodone - PO Q6H PRN PAIN Microbiology 11/01/16 12:15 Blood - Peripheral Venous Blood Culture - Preliminary Lactose Fermenting Neg Bacilli ASSESSMENT/PLAN: 81 yr old man with HTN, HLD, hx of CVA, TIA with recent small bowel obstruction/ abdominal mass removal having several days of nausea and emesis transferred to the ICU this afternoon due to respiratory distress. Pulmonary respiratory distress likely due to abdominal distention caused by ileus - improving nasal cannula 5L = saturation 93%, attempt to titrate to maintain sat >92% inhalers prn, incentive spirometer GI POD #12(10/21) of small bowel obstruction/mass - mass pathology was non- malignant. NGT for decompression - output trending down, once output stops can shelton linares clinimix IV with lipids until patient starts to take po, with addition of increased dextrose today as per Dr. Goyal - monitor glucose with BGMs ACHS NPO except for meds when NGT is clamped for 4 hours repeat abdominal xray consult: Dr. goyal Cardiovascular HTN - uncontrolled - norvasc 5mg po, metoprolol XL 200mg po daily CAD - hold lipitor and plavix Infectious Disease blood cx positive - lactose fermenting gram neg bacillus, urine cx pending start meropenem + cefepime today consult: dr. Bernal Hematological leucocytosis - concern for infectious process GI//Pulmonary in origin Neurological confused, continue to orient. wrist restraints for safety. DVT: heparin TID, oob when able Diet: clinimix Visit type - Emergency Visit Emergency Visit: No - New Patient This patient is new to me today: No - Critical Care Critical Care patient: Yes Total Critical Care Time (in minutes): 37 Critical Care Statement: The care of this patient involved high complexity decision making to prevent further life threatening deterioration of the patient 's condition and/or to evalute & treat vital organ system(s) failure or risk of failure.
--- NOTE | 2016-11-02 09:28 | PN ---
Progress Note (short form) - Note Progress Note: surgery surgery pt seen and examined. in restraints. weak. afebrile, only 400 from ngt, admits to flatus. 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 cont ngt. nutrition note reviewed and needs to be recalculated for 2 liters of clinimix plus 250 ml lipids. suspect about 1180 calories and 85g protein which would be 20 nancy/kg and 1.4g protein/kg. Repeat kub to follow contrast. willing to wait up to month for function to return but suspect it will return sooner. will add more dextrose to increase calories to 350 more per day which will be about 25 nancy/kg leukocytosis ??- suspect pneumonia. no source of infection on ct and abd has benign exam. cont to hold plavix on slight chance of operative intervention (not indicated for gut dysfunction) but surgery now would encounter a hostile abd from surgery 11 days ago.
[2016-11-02] MEDS: PANTOPRAZOLE SODIUM 100 ML IVPB SCH (09:34)
[2016-11-02] MEDS: SYSTANE ULTRA EYE DROPS OU SCH ×2 (09:38→22:14)
[2016-11-02] MEDS: ACLIDINIUM BROMIDE 400 MCG/INH AERO.POWD IH SCH ×2 (09:38→22:14)
[2016-11-02] MEDS ORDERED: AMINO ACIDS 4.25%/D5W 1,000 ML IV SCH (09:45)
[2016-11-02] MEDS: MULTIVIT INJ. ADULT COMBO WITH VIT K 1 COMBO 10 ML VIAL IV SCH (10:00)
[2016-11-02] MEDS ORDERED: MEROPENEM 500 MG VIAL (RESTRICTED TO ID) IVPB SCH (10:45)
[2016-11-02] MEDS ORDERED: AMINO ACIDS IVPB SCH (10:57)
[2016-11-02] MEDS ORDERED: [UNRECOGNIZED DRUG - OTHER] IVPB SCH (10:57)
[2016-11-02] MEDS ORDERED: WATER IVPB SCH (10:57)
[2016-11-02] MEDS ORDERED: DEXTROSE 50% IVPB SCH (10:57)
[2016-11-02] MEDS: AMINO ACIDS IV SCH (11:00)
[2016-11-02] MEDS: [UNRECOGNIZED DRUG - OTHER] IV SCH (11:00)
[2016-11-02] MEDS: SODIUM CHLORIDE IV SCH (11:00)
[2016-11-02] MEDS: MEROPENEM 500 MG in DEXTROSE 5%-WATER - 100 ML IVPB SCH ×2 (11:40→17:15)
[2016-11-02] MEDS ORDERED: METOPROLOL SUCCINATE 100 MG TAB.SR.24H (FP) PO SCH (11:41)
--- NOTE | 2016-11-02 11:44 | PN ---
Teaching Attending Note Name of Resident: Lupe Juan ATTENDING PHYSICIAN STATEMENT I saw and evaluated the patient. I reviewed the resident's note and discussed the case with the resident. I agree with the resident's findings and plan as documented. SUBJECTIVE: Pt seen and examined in the ICU. Remains confused, saturating low 90s on 5L nasal cannula. No fevers or chills. OBJECTIVE: Last Vital Signs Temp Pulse Resp BP Pulse Ox 98.6 F 110 H 25 H 172/86 92 L 11/02/16 10:00 11/02/16 10:22 11/02/16 10:00 11/02/16 10:00 11/02/16 10:22 Intake & Output 10/30/16 10/31/16 11/01/16 11/02/16 23:59 23:59 23:59 23:59 Intake Total 1512 3092 2736 1172 Output Total 2700 6100 2450 1100 Balance -1188 -3008 286 72 Weight 129 lb 4 oz 131 lb 1 oz 128 lb 1 oz Gen: tachypneic at rest Heart: tachycardic, regular Lung: decreased breath sounds at the bases Abd: soft, incision clean, hypoactive bowel sounds Ext: no edema CBC, BMP 11/02/16 05:20 11/02/16 05:20 Active Medications Aclidinium [place] (Tudorza -) 1 puff IH BID [facility] Last Admin: 11/02/16 09:38 Dose: 1 puff Albuterol Sulfate (Ventolin 0.083% Nebulizer Soln -) 1 amp NEB Q4H PRN PRN Reason: SHORT OF BREATH/WHEEZING Amlodipine Besylate (Norvasc -) 2.5 mg PO DAILY [facility] Atorvastatin Calcium (Lipitor -) 40 mg PO HS [facility] Last Admin: 11/01/16 21:58 Dose: Not Given Heparin Sodium (Porcine) (Heparin -) 5,000 unit SQ TID [facility] Last Admin: 11/02/16 06:39 Dose: 5,000 unit Fat Emulsion Intravenous (Intralipid -) 250 mls @ 20.833 mls/hr IV DAILY@2200 [facility] Last Admin: 11/01/16 22:08 Dose: 20.833 mls/hr Pantoprazole Sodium (Protonix 40mg Ivpb (Pre-Docked)) 100 mls @ 200 mls/hr IVPB DAILY [facility] Last Admin: 11/02/16 09:34 Dose: 200 mls/hr Lactated Ringer's (Lactated Ringers Solution) 1,000 mls @ 42 mls/hr IV ASDIR [facility] Last Admin: 11/02/16 08:00 Dose: Not Given Potassium Phosphate 30 mm/ (Sodium Chloride) 260 mls @ 43.333 mls/hr IVPB ONCE ONE Stop: 11/02/16 13:47 Meropenem 500 mg/ Dextrose 100 mls @ 200 mls/hr IVPB Q8H-IV [facility] Last Admin: 11/02/16 11:40 Dose: 200 mls/hr Dextrose 100 ml/ Amino Acids 1,100 mls @ 92 mls/hr IVPB Q12H [facility] Stop: 11/03/16 09:43 Metoclopramide HCl (Reglan Injection -) 10 mg IVPB Q6H-IV [facility] Last Admin: 11/02/16 09:34 Dose: 10 mg Metoprolol Succinate (Toprol Xl -) 200 mg PO DAILY [facility] Metoprolol Tartrate (Lopressor Injection -) 5 mg IVPUSH Q6H PRN PRN Reason: HYPERTENSION Last Admin: 11/01/16 09:42 Dose: 5 mg Morphine Sulfate (Morphine Injection -) 2 mg IVPUSH Q4H PRN PRN Reason: PAIN LEVEL 1-5 Last Admin: 11/01/16 16:38 Dose: 2 mg Morphine Sulfate (Morphine Injection -) 4 mg IVPUSH Q4H PRN PRN Reason: PAIN LEVEL 6-10 Last Admin: 11/01/16 20:40 Dose: 4 mg Multivitamins/Minerals (Infuvite Adult -) 10 ml IV DAILY [facility] Last Admin: 11/02/16 10:00 Dose: Not Given [place] 0.004% Eye (Drops) 1 each OU HS [facility] Last Admin: 11/01/16 22:08 Dose: 1 each Systane Ultra Eye (Drops) 1 each OU BID [facility] Last Admin: 11/02/16 09:38 Dose: 1 each Ondansetron HCl (Zofran Injection) 8 mg IVPB Q6H PRN PRN Reason: NAUSEA AND/OR VOMITING Oxycodone HCl (Roxicodone -) 5 mg PO Q6H PRN PRN Reason: PAIN ASSESSMENT AND PLAN: Pneumoatosis Intestinalis resolved 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
--- NOTE | 2016-11-02 12:55 | PN ---
Progress Note, Physician History of Present Illness: 81 year old man with a history of HTN, HLD, COPD, CVA, AAA admitted with abdominal discomfort and constipation concerning for SBO. Pt seen and examined today in nad. He states that he had multiple small BM's yesterday and overnight. denies any current abd pain. denies chest pain, sob, palpitations. no pnd, orthopnea, or LE edema. NG tube in place. PMH LE angio 02/21/2015 Dr. Alcazar Left EIA/[employer] DCB 08/10/2014 Dr Alcazar PCI LCx 09/20/2014 Dr Alcazar Medical History Reviewed Condition Date Treating Physician Comments Claudication, intermittent HTN Hyperlipidemia TIA/CVA - Current Medication List Current Medications: Active Medications Aclidinium [place] (Tudorza -) 1 puff IH BID [facility] Last Admin: 11/02/16 09:38 Dose: 1 puff Albuterol Sulfate (Ventolin 0.083% Nebulizer Soln -) 1 amp NEB Q4H PRN PRN Reason: SHORT OF BREATH/WHEEZING Amlodipine Besylate (Norvasc -) 2.5 mg PO DAILY [facility] Atorvastatin Calcium (Lipitor -) 40 mg PO HS [facility] Last Admin: 11/01/16 21:58 Dose: Not Given Heparin Sodium (Porcine) (Heparin -) 5,000 unit SQ TID [facility] Last Admin: 11/02/16 06:39 Dose: 5,000 unit Fat Emulsion Intravenous (Intralipid -) 250 mls @ 20.833 mls/hr IV DAILY@2200 [facility] Last Admin: 11/01/16 22:08 Dose: 20.833 mls/hr Pantoprazole Sodium (Protonix 40mg Ivpb (Pre-Docked)) 100 mls @ 200 mls/hr IVPB DAILY [facility] Last Admin: 11/02/16 09:34 Dose: 200 mls/hr Lactated Ringer's (Lactated Ringers Solution) 1,000 mls @ 42 mls/hr IV ASDIR [facility] Last Admin: 11/02/16 08:00 Dose: Not Given Potassium Phosphate 30 mm/ (Sodium Chloride) 260 mls @ 43.333 mls/hr IVPB ONCE ONE Stop: 11/02/16 13:47 Meropenem 500 mg/ Dextrose 100 mls @ 200 mls/hr IVPB Q8H-IV [facility] Last Admin: 11/02/16 11:40 Dose: 200 mls/hr Dextrose 100 ml/ Sodium (Chloride 20 meq/ Amino Acids) 1,105 mls @ 92 mls/hr IVPB Q12H [facility] Metoclopramide HCl (Reglan Injection -) 10 mg IVPB Q6H-IV [facility] Last Admin: 11/02/16 09:34 Dose: 10 mg Metoprolol Succinate (Toprol Xl -) 200 mg PO DAILY [facility] Metoprolol Tartrate (Lopressor Injection -) 5 mg IVPUSH Q6H PRN PRN Reason: HYPERTENSION Last Admin: 11/01/16 09:42 Dose: 5 mg Morphine Sulfate (Morphine Injection -) 2 mg IVPUSH Q4H PRN PRN Reason: PAIN LEVEL 1-5 Last Admin: 11/01/16 16:38 Dose: 2 mg Morphine Sulfate (Morphine Injection -) 4 mg IVPUSH Q4H PRN PRN Reason: PAIN LEVEL 6-10 Last Admin: 11/01/16 20:40 Dose: 4 mg Multivitamins/Minerals (Infuvite Adult -) 10 ml IV DAILY [facility] Last Admin: 11/02/16 10:00 Dose: Not Given Travatan 0.004% Eye (Drops) 1 each OU HS [facility] Last Admin: 11/01/16 22:08 Dose: 1 each Systane Ultra Eye (Drops) 1 each OU BID [facility] Last Admin: 11/02/16 09:38 Dose: 1 each Ondansetron HCl (Zofran Injection) 8 mg IVPB Q6H PRN PRN Reason: NAUSEA AND/OR VOMITING Oxycodone HCl (Roxicodone -) 5 mg PO Q6H PRN PRN Reason: PAIN - Objective Vital Signs: Vital Signs Temperature 98.6 F 11/02/16 10:00 Pulse Rate 98 H 11/02/16 12:00 Respiratory Rate 25 H 11/02/16 12:00 Blood Pressure 157/90 11/02/16 12:00 O2 Sat by Pulse Oximetry (%) 92 L 11/02/16 10:22 Eyes: Yes: WNL, Conjunctiva Clear, EOM Intact HENT: Yes: WNL, Atraumatic, Normocephalic Neck: Yes: WNL, Supple, Trachea Midline Cardiovascular: Yes: WNL, Regular Rate and Rhythm Respiratory: Yes: WNL, Regular, CTA Bilaterally Gastrointestinal: Yes: WNL, Normal Bowel Sounds Genitourinary: Yes: WNL Musculoskeletal: Yes: WNL Extremities: Yes: WNL Edema: No Integumentary: Yes: WNL Neurological: Yes: WNL, Alert, Oriented ...Motor Strength: WNL Psychiatric: Yes: WNL Labs: CBC, BMP 11/02/16 05:20 11/02/16 05:20 Assessment/Plan - Problems (1) Diastolic CHF Assessment/Plan: continue present medications (amlodipine; metoprolol). Increase amlodipine; f/u BP. F/u Is and Os, daily weight, BUN/Cr, electrolytes. Code(s): I50.30 - UNSPECIFIED DIASTOLIC (CONGESTIVE) HEART FAILURE (2) Hyperlipidemia Assessment/Plan: On atorvastatin; keep LDL cholesterol < 70 mg/dL. Code(s): E78.5 - HYPERLIPIDEMIA, UNSPECIFIED (3) PSVT (paroxysmal supraventricular tachycardia) Assessment/Plan: Changed labetolol to metoprolol ER; increase to 200 mg daily. No further PSVT notrd. Increase amlodipine if blood pressure remains elevated. ECHO 05/2016: normal LVEF. Keep K 4-4.5; f/u Mg, and keep 2-2.3.keep PO4 2.5-3.0. EKG 10/27/16: NSR; ? old IWMI. Pain management. Code(s): I47.1 - SUPRAVENTRICULAR TACHYCARDIA (4) SBO (small bowel obstruction) Assessment/Plan: f/u with surgeon. Code(s): K56.69 - OTHER INTESTINAL OBSTRUCTION (5) Small bowel mass Code(s): K63.89 - OTHER SPECIFIED DISEASES OF INTESTINE (6) HTN (hypertension) Assessment/Plan: Now on metoprolol ER for HTN and PSVT; would increase to 300 mg daily if needed (HTN; PSVT). On amlodipine 2.5 mg daily; increase as need for BP control. Serial BP and HR checks. Code(s): I10 - ESSENTIAL (PRIMARY) HYPERTENSION (7) Weakness Code(s): R53.1 - WEAKNESS (8) Confusion Assessment/Plan: head CT: no acute pathology. F/u with neurologist. Code(s): R41.0 - DISORIENTATION, UNSPECIFIED (9) Hypothyroid Assessment/Plan: decreased TSH; f/u free T3 and free T4. Code(s): E03.9 - HYPOTHYROIDISM, UNSPECIFIED Assessment/Plan cc time spent reviewing chart, examining pt, and writing note: 35minutes.
[2016-11-02] MEDS: DEXTROSE IVPB SCH (13:25)
[2016-11-02] MEDS: [UNRECOGNIZED DRUG - OTHER] IVPB SCH (13:25)
[2016-11-02] MEDS: SODIUM CHLORIDE IVPB SCH (13:25)
[2016-11-02] MEDS: WATER IVPB SCH (13:25)
[2016-11-02] MEDS: amLODIPine BESYLATE 2.5 MG TABLET (FP) PO SCH (13:56)
--- NOTE | 2016-11-02 16:49 | PN ---
Progress Note, Physician History of Present Illness: Pt was transferred back to ICU. Post op day 11 NGT was inserted again, on low sucction. Pt with cough and productive yellow sputum Pt with mild abd discomfort on and off. Pt feels tired, after sitting about 2 hours in the chair. Pt w/o fever, chills. Pt w/o CP, SOB, Palp. Pt's family at bed side (, dg- from [place]). - Current Medication List Current Medications: Active Medications Aclidinium [place] (Tudorza -) 1 puff IH BID [facility] Last Admin: 11/02/16 09:38 Dose: 1 puff Albuterol Sulfate (Ventolin 0.083% Nebulizer Soln -) 1 amp NEB Q4H PRN PRN Reason: SHORT OF BREATH/WHEEZING Amlodipine Besylate (Norvasc -) 2.5 mg PO DAILY [facility] Last Admin: 11/02/16 13:56 Dose: 2.5 mg Atorvastatin Calcium (Lipitor -) 40 mg PO HS [facility] Last Admin: 11/01/16 21:58 Dose: Not Given Heparin Sodium (Porcine) (Heparin -) 5,000 unit SQ TID [facility] Last Admin: 11/02/16 13:56 Dose: 5,000 unit Fat Emulsion Intravenous (Intralipid -) 250 mls @ 20.833 mls/hr IV DAILY@2200 [facility] Last Admin: 11/01/16 22:08 Dose: 20.833 mls/hr Pantoprazole Sodium (Protonix 40mg Ivpb (Pre-Docked)) 100 mls @ 200 mls/hr IVPB DAILY [facility] Last Admin: 11/02/16 09:34 Dose: 200 mls/hr Lactated Ringer's (Lactated Ringers Solution) 1,000 mls @ 42 mls/hr IV ASDIR [facility] Last Admin: 11/02/16 08:00 Dose: Not Given Meropenem 500 mg/ Dextrose 100 mls @ 200 mls/hr IVPB Q8H-IV [facility] Last Admin: 11/02/16 11:40 Dose: 200 mls/hr Dextrose 100 ml/ Sodium (Chloride 20 meq/ Amino Acids) 1,105 mls @ 92 mls/hr IVPB Q12H [facility] Last Admin: 11/02/16 13:25 Dose: 92 mls/hr Metoclopramide HCl (Reglan Injection -) 10 mg IVPB Q6H-IV [facility] Last Admin: 11/02/16 14:13 Dose: 10 mg Metoprolol Succinate (Toprol Xl -) 200 mg PO DAILY [facility] Metoprolol Tartrate (Lopressor Injection -) 5 mg IVPUSH Q6H PRN PRN Reason: HYPERTENSION Last Admin: 11/01/16 09:42 Dose: 5 mg Morphine Sulfate (Morphine Injection -) 2 mg IVPUSH Q4H PRN PRN Reason: PAIN LEVEL 1-5 Last Admin: 11/01/16 16:38 Dose: 2 mg Morphine Sulfate (Morphine Injection -) 4 mg IVPUSH Q4H PRN PRN Reason: PAIN LEVEL 6-10 Last Admin: 11/01/16 20:40 Dose: 4 mg Multivitamins/Minerals (Infuvite Adult -) 10 ml IV DAILY [facility] Last Admin: 11/02/16 10:00 Dose: Not Given Travatan 0.004% Eye (Drops) 1 each OU HS [facility] Last Admin: 11/01/16 22:08 Dose: 1 each Systane Ultra Eye (Drops) 1 each OU BID [facility] Last Admin: 11/02/16 09:38 Dose: 1 each Ondansetron HCl (Zofran Injection) 8 mg IVPB Q6H PRN PRN Reason: NAUSEA AND/OR VOMITING Oxycodone HCl (Roxicodone -) 5 mg PO Q6H PRN PRN Reason: PAIN - Objective Vital Signs: Vital Signs Temperature 98.3 F 11/02/16 16:00 Pulse Rate 101 H 11/02/16 16:00 Respiratory Rate 22 11/02/16 16:00 Blood Pressure 164/86 11/02/16 16:00 O2 Sat by Pulse Oximetry (%) 92 L 11/02/16 10:22 Constitutional: Yes: No Distress, Calm Cardiovascular: Yes: Regular Rate and Rhythm, S1, S2 Respiratory: Yes: Regular, Rhonchi Gastrointestinal: Yes: Normal Bowel Sounds, Soft, Tenderness (minimal) Edema: No Neurological: Yes: Alert, Oriented Labs: CBC, BMP 11/02/16 05:20 11/02/16 05:20 Problem List - Problems (1) Small bowel mass Code(s): K63.89 - OTHER SPECIFIED DISEASES OF INTESTINE (2) SBO (small bowel obstruction) Code(s): K56.69 - OTHER INTESTINAL OBSTRUCTION (3) Pneumatosis intestinalis Code(s): K63.89 - OTHER SPECIFIED DISEASES OF INTESTINE (4) CHF (congestive heart failure) Code(s): I50.9 - HEART FAILURE, UNSPECIFIED (5) CVA (cerebral infarction) Code(s): I63.9 - CEREBRAL INFARCTION, UNSPECIFIED (6) Chronic obstructive pulmonary disease Code(s): J44.9 - CHRONIC OBSTRUCTIVE PULMONARY DISEASE, UNSPECIFIED (7) Hyperlipidemia Code(s): E78.5 - HYPERLIPIDEMIA, UNSPECIFIED (8) Hypokalemia due to inadequate potassium intake Code(s): E87.6 - HYPOKALEMIA (9) Hypophosphatemia Code(s): E83.39 - OTHER DISORDERS OF PHOSPHORUS METABOLISM (10) HTN (hypertension) Code(s): I10 - ESSENTIAL (PRIMARY) HYPERTENSION (11) Hypomagnesemia Code(s): E83.42 - HYPOMAGNESEMIA (12) Bandemia Code(s): D72.825 - BANDEMIA (13) Pneumonia Code(s): J18.9 - PNEUMONIA, UNSPECIFIED ORGANISM (14) Bacteremia Code(s): R78.81 - BACTEREMIA Assessment/Plan GI and surgical f/u appreciated post OP day 11 Pt wants his to make medical decisions if he cannot; both daughter agrees with pt. All family's questions were answered Pt is hemodynamically stable. Pt with poor PO intake; pt with N and V for the last couple of days; NGT was reinserted again; to f/u with Sx. Pt on Clinimix, lipids Pt with + BCX, LLL PNA On IV abtx- readjusted per BCX Replace K, Mg, Ph AM labs. Pt's condition and treatment was d/w pt.s family. All questions were answered. Prognosis: reserved. Case was d/w pt's nurse. Time spent for managing pt's care: 35 min.
[2016-11-02] MEDS: morphine CARPU-JECT 4 MG/1 ML DISP.SYRIN IVPUSH PRN (20:30)
[2016-11-02] MEDS: METOPROLOL TARTRATE 5 MG/5 ML VIAL IVPUSH PRN (20:35)
[2016-11-02] MEDS: EYE OU SCH (22:14)
[2016-11-02] MEDS: TRAVATAN 0.004% OU SCH (22:14)
[2016-11-02] MEDS: FAT EMULSIONS 250 ML IV SCH (22:15)
[2016-11-02] MEDS: ATORVASTATIN CA 40 MG TABLET (FP) PO SCH (22:20)
[2016-11-03] MEDS: SODIUM CHLORIDE IVPB SCH (00:57)
[2016-11-03] MEDS: WATER IVPB SCH (00:57)
[2016-11-03] MEDS: [UNRECOGNIZED DRUG - OTHER] IVPB SCH (00:57)
[2016-11-03] MEDS: DEXTROSE IVPB SCH (00:57)
[2016-11-03] MEDS: MULTIVIT INJ. ADULT COMBO WITH VIT K 1 COMBO 10 ML VIAL IV SCH ×2 (00:58→10:00)
[2016-11-03] MEDS: MEROPENEM 500 MG in DEXTROSE 5%-WATER - 100 ML IVPB SCH ×2 (01:00→09:06)
[2016-11-03] MEDS: METOCLOPRAMIDE HCL INJECTION 10 MG/2 ML VIAL IVPB SCH ×4 (03:00→22:32)
[2016-11-03] MEDS: HEPARIN NA (PORCINE) 5,000 UNITS/ML 1ML VIAL SQ SCH ×3 (05:59→22:32)
[2016-11-03 06:57] LABS: MCH 27.4 pg (25.7-33.7); MCHC 32.7 g/dl (32.0-35.9); MEAN CELL VOLUME 83.6 fl (80-96); MEAN PLT VOLUME 8.6 fl (7.5-11.1); PLATELET COUNT 329 K/MM3 (134-434); RDW 14.1 % (11.9-15.9); WHITE BLOOD COUNT 21.1 K/mm3 (4.0-10.0)
[2016-11-03 07:24] LABS: ALBUMIN 1.7 g/dl (3.4-5.0); ANION GAP 9 (8-16); CALCIUM 8.3 mg/dL (8.5-10.1); CO2 30 mmol/L (21-32); CREATININE 0.5 mg/dL (0.7-1.3); GLUCOSE,RANDOM 179 mg/dL (74-106); MAGNESIUM 1.8 mg/dL (1.8-2.4); PHOSPHOROUS 1.3 mg/dL (2.5-4.9); SGOT/AST 42 U/L (15-37); SGPT/ALT 41 U/L (12-78)
[2016-11-03 07:25] LABS: ALK PHOS 123 U/L (45-117); TOT PROT 4.9 g/dl (6.4-8.2)
[2016-11-03] MEDS ORDERED: POTASSIUM PHOSPHATE IVPB ONE ×2 (07:40→10:00)
[2016-11-03] MEDS ORDERED: POTASSIUM CHLORIDE 20 MEQ PREMIX IVPB 100 ML IVPB ONE (07:40)
[2016-11-03] MEDS ORDERED: MAGNESIUM SULF 50% (8.12 MEQ/2 ML-1 GM VIAL) IVPB ONE (07:40)
[2016-11-03] MEDS ORDERED: AMINO ACIDS IVPB ONE (07:40)
[2016-11-03] MEDS ORDERED: [UNRECOGNIZED DRUG - OTHER] IVPB ONE (07:40)
[2016-11-03] MEDS: LACTATED RINGERS SOLUTION 1,000 ML IV SCH (08:00)
[2016-11-03 08:14] LABS: PLATELET ESTIMATE ADEQUATE (NORMAL)
[2016-11-03] MEDS ORDERED: POTASSIUM PHOSPHATE 30 MM in SODIUM CHLORIDE 250 ML IVPB ONE (08:15)
[2016-11-03] MEDS ORDERED: PT OWN MED DRAWER 7, Y5N ONE (09:02)
[2016-11-03] MEDS: amLODIPine BESYLATE 2.5 MG TABLET (FP) PO SCH (09:03)
[2016-11-03] MEDS: PANTOPRAZOLE SODIUM 100 ML IVPB SCH (09:04)
[2016-11-03] MEDS: ACLIDINIUM BROMIDE 400 MCG/INH AERO.POWD IH SCH ×2 (09:04→22:31)
[2016-11-03] MEDS: SYSTANE ULTRA EYE DROPS OU SCH ×2 (09:05→22:33)
[2016-11-03] MEDS ORDERED: [UNRECOGNIZED DRUG - OTHER] IVPB ONE (10:00)
[2016-11-03] MEDS ORDERED: SODIUM CHLORIDE IVPB ONE (10:00)
--- NOTE | 2016-11-03 11:00 | PN ---
Teaching Attending Note Name of Resident: Lupe Juan ATTENDING PHYSICIAN STATEMENT I saw and evaluated the patient. I reviewed the resident's note and discussed the case with the resident. I agree with the resident's findings and plan as documented. SUBJECTIVE: Pt seen and examined in the ICU. Remains confused, denies abdominal pain, nausea or vomiting. Reports flatus but no BM. No fevers or chills. OBJECTIVE: Last Vital Signs Temp Pulse Resp BP Pulse Ox 98.6 F 96 H 20 172/65 92 L 11/03/16 10:00 11/03/16 10:00 11/03/16 10:00 11/03/16 10:00 11/02/16 20:34 Intake & Output 10/31/16 11/01/16 11/02/16 11/03/16 23:59 23:59 23:59 23:59 Intake Total 3092 2736 3401 1708 Output Total 6100 2450 2450 1100 Balance -3008 286 951 608 Weight 129 lb 4 oz 131 lb 1 oz 128 lb 1 oz 130 lb 5 oz Gen: less tachypneic Heart: RRR Lung: scattered rhonchi Abd: soft, incision clean, less TTP, no rebound Ext: no edema CBC, BMP 11/03/16 05:20 11/03/16 05:20 Active Medications Aclidinium [place] (Tudorza -) 1 puff IH BID [facility] Last Admin: 11/03/16 09:04 Dose: 1 puff Albuterol Sulfate (Ventolin 0.083% Nebulizer Soln -) 1 amp NEB Q4H PRN PRN Reason: SHORT OF BREATH/WHEEZING Amlodipine Besylate (Norvasc -) 2.5 mg PO DAILY [facility] Last Admin: 11/03/16 09:03 Dose: 2.5 mg Atorvastatin Calcium (Lipitor -) 40 mg PO HS [facility] Last Admin: 11/02/16 22:20 Dose: 40 mg Heparin Sodium (Porcine) (Heparin -) 5,000 unit SQ TID [facility] Last Admin: 11/03/16 05:59 Dose: 5,000 unit Fat Emulsion Intravenous (Intralipid -) 250 mls @ 20.833 mls/hr IV DAILY@2200 [facility] Last Admin: 11/02/16 22:15 Dose: 20.833 mls/hr Pantoprazole Sodium (Protonix 40mg Ivpb (Pre-Docked)) 100 mls @ 200 mls/hr IVPB DAILY [facility] Last Admin: 11/03/16 09:04 Dose: 200 mls/hr Lactated Ringer's (Lactated Ringers Solution) 1,000 mls @ 42 mls/hr IV [facility] Last Admin: 11/03/16 08:00 Dose: 42 mls/hr Meropenem 500 mg/ Dextrose 100 mls @ 200 mls/hr IVPB Q8H-IV [facility] Last Admin: 11/03/16 09:06 Dose: 200 mls/hr Dextrose 100 ml/ Sodium (Chloride 20 meq/ Amino Acids) 1,105 mls @ 92 mls/hr IVPB Q12H [facility] Last Admin: 11/03/16 00:57 Dose: 92 mls/hr Potassium Phosphate 30 mm/Sodium Chloride 20 meq/Dextrose 100 ml/ Amino Acids 1 ,115 mls @ 92 mls/hr IVPB ONCE ONE Stop: 11/03/16 22:07 Metoclopramide HCl (Reglan Injection -) 10 mg IVPB Q6H-IV [facility] Last Admin: 11/03/16 09:03 Dose: 10 mg Metoprolol Succinate (Toprol Xl -) 200 mg PO DAILY [facility] Last Admin: 11/03/16 09:07 Dose: Not Given Metoprolol Tartrate (Lopressor Injection -) 5 mg IVPUSH Q6H PRN PRN Reason: HYPERTENSION Last Admin: 11/02/16 20:35 Dose: 5 mg Morphine Sulfate (Morphine Injection -) 2 mg IVPUSH Q4H PRN PRN Reason: PAIN LEVEL 1-5 Last Admin: 11/01/16 16:38 Dose: 2 mg Morphine Sulfate (Morphine Injection -) 4 mg IVPUSH Q4H PRN PRN Reason: PAIN LEVEL 6-10 Last Admin: 11/02/16 20:30 Dose: 4 mg Multivitamins/Minerals (Infuvite Adult -) 10 ml IV DAILY [facility] Last Admin: 11/03/16 00:58 Dose: 10 ml Travatan 0.004% Eye (Drops) 1 each OU HS [facility] Last Admin: 11/02/16 22:14 Dose: 1 each Systane Ultra Eye (Drops) 1 each OU BID [facility] Last Admin: 11/03/16 09:05 Dose: 1 each Ondansetron HCl (Zofran Injection) 8 mg IVPB Q6H PRN PRN Reason: NAUSEA AND/OR VOMITING Oxycodone HCl (Roxicodone -) 5 mg PO Q6H PRN PRN Reason: PAIN ASSESSMENT AND PLAN: Pneumoatosis Intestinalis/Small Bowel Obstruction s/p ex-lap/SB resection COPD HTN Hyperlipidemia CHF h/o CVA - continue clinimix - replete lytes - antibiotics per ID - pain control - incentive spirometry - NPO - monitor NGT drainage - await return of bowel function - O2 to keep SpO2 >90% - DVT prophylaxis - continue ICU monitoring for now critical care time spent in reviewing chart, evaluating patient and formulating plan 35 min
[2016-11-03] MEDS: POTASSIUM CHLORIDE ORAL LIQUID 20 MEQ/15 ML PO SCH ×2 (11:17→22:27)
[2016-11-03] MEDS: LABETALOL HCL 5 MG/1 ML (100MG/20 ML VIAL) IVPUSH PRN ×2 (11:17→17:52)
--- NOTE | 2016-11-03 11:23 | PN ---
Progress Note (short form) - Note Progress Note: awake, much more alert today coughing +NGT he is s/p small bowel resection 10/21 Vital Signs Period Temp Pulse Resp BP Sys/Hernandez Pulse Ox Last 24 Hr 98.1 F-99 F 89-108 17-25 157-177/62-92 92-100 cor-rrr lungs crackles right base abd soft, +tiffanie, incision intact ext no edema CBC, BMP 11/03/16 05:20 11/03/16 05:20 Microbiology 11/01/16 17:15 Urine - Urine [place] Urine Culture - Final NO GROWTH OBTAINED 11/02/16 02:00 Sputum - Expectorated Sputum Culture - Preliminary NORMAL RESPIRATORY CONG 10/28/16 14:35 Blood - Peripheral Venous Blood Culture - Final NO GROWTH AFTER 5 DAYS INCUBATION 10/28/16 14:30 Blood - Peripheral Venous Blood Culture - Final NO GROWTH AFTER 5 DAYS INCUBATION 11/01/16 12:15 Blood - Peripheral Venous Blood Culture - Preliminary NO GROWTH OBTAINED AFTER 24 HOURS, INCUBATION TO CONTINUE FOR 4 DAYS. 11/01/16 12:15 Blood - Peripheral Venous Blood Culture - Preliminary Lactose Fermenting Neg Bacilli 10/31/16 00:01 Urine - Urine - Catheterized Urine Culture - Final NO GROWTH OBTAINED ct scan no abscess/collections cxray LLL infiltrate a/p gram negative bacteremia- on meropenem day #2 (was on zosyn previously this admission) pneumonia LLL f/u cultures will de-escalate abx based on culture results s/p small bowel resection 10/21 Problem List - Problems (1) Pneumatosis intestinalis Code(s): K63.89 - OTHER SPECIFIED DISEASES OF INTESTINE (2) SBO (small bowel obstruction) Code(s): K56.69 - OTHER INTESTINAL OBSTRUCTION
--- NOTE | 2016-11-03 11:40 | EKG ---
Test Reason : Blood Pressure : / mmHG Vent. Rate : 118 BPM Atrial Rate : 118 BPM P-R Int : 000 ms QRS Dur : 080 ms QT Int : 328 ms P-R-T Axes : 059 041 064 degrees QTc Int : 459 ms SINUS TACHYCARDIA WITH PREMATURE ATRIAL COMPLEXES POSSIBLE INFERIOR INFARCT (CITED ON OR BEFORE 24-OCT-2016) ABNORMAL ECG WHEN COMPARED WITH ECG OF 27-OCT-2016 12:10, PREMATURE ATRIAL COMPLEXES ARE NOW PRESENT VENT. RATE HAS INCREASED BY 39 BPM T WAVE VARIATION Confirmed by JOEY TIM MD ([id number]) on 11/03/2016 11:40:07 AM Referred By: ZAK BOUDREAUX Confirmed By:JOEY TIM MD
--- NOTE | 2016-11-03 11:46 | PN ---
Physical Exam: SUBJECTIVE: Patient seen and examined. denies chest pain, sob, cough, nausea, fever, oriented to person, location(knows this is a hospital but not the name), month, not date or year. NGT with dark bloody output. OBJECTIVE: Vital Signs Period Temp Pulse Resp BP Sys/Hernandez Pulse Ox Last 24 Hr 98.1 F-99 F 89-108 17-25 157-177/62-92 92-100 GENERAL: awake, alert, in wrist restraints, EYES: perrla,eomi, sclera anicteric, conjunctiva clear. EARS, NOSE, THROAT: left nostril with NGT to wall suction, oropharynx clear without exudates/lesions/erythema. dry mucous membranes. thick white nonbloody secretions LUNGS: quiet at bases, no crackles, no wheezing. rales at right base No accessory muscle use. HEART: Regular rhythm, tachycardia, normal S1 and S2 without murmur, rub or gallop. ABDOMEN: soft, less abdominal tenderness, no progression of ecchymosis sites located midquadrant right and left next to but not inclusive of insicion line, nondistended, increased bowel sounds on right quadrants, hypoactive on left quadrants, no guarding, no rebound, no masses. mildline incision with tiffanie in place without erythema/discharge UPPER EXTREMITIES: 2+ radial, pulses, cool hands, well-perfused. No cyanosis. + clubbing. nonpitting edema in b/l hands LOWER EXTREMITIES: 2+ dorsalis pulses, warm, well-perfused. No calf tenderness. No peripheral edema. NEUROLOGICAL:oriented to person, not place/date/situation. Laboratory Results - last 24 hr 11/02/16 11/03/16 11/03/16 16:54 05:20 05:20 WBC 21.1 H RBC 4.52 Hgb 12.4 Hct 37.8 MCV 83.6 MCHC 32.7 RDW 14.1 Plt Count 329 MPV 8.6 Neutrophils % 79.0 Lymphocytes % 10.0 D Monocytes % 2.0 L Eosinophils % 1.0 D Basophils % 0.0 Band Neutrophils 6.0 D Myelocytes 2 D Differential Comment Manual diff done Platelet Estimate Adequate Sodium 139 Potassium 3.1 L Chloride 100 Carbon Dioxide 30 Anion Gap 9 BUN 14 Creatinine 0.5 L Creat Clearance w eGFR > 60 POC Glucometer [phone] Random Glucose 179 H D Calcium 8.3 L Phosphorus 1.3 L D Magnesium 1.8 Total Bilirubin 1.0 AST 42 H ALT 41 D Alkaline Phosphatase 123 H D Total Protein 4.9 L Albumin 1.7 L Active Medications Generic Name Dose Route Start Last Admin Trade Name Freq PRN Reason Stop Dose Admin Aclidinium [place] 1 puff 10/30/16 22:00 11/03/16 09:04 Tudorza - IH 1 puff BID [facility] Administration Albuterol Sulfate 1 amp 10/30/16 14:35 Ventolin 0.083% Nebulizer Soln - NEB Q4H PRN SHORT OF BREATH/WHEEZING Amlodipine Besylate 2.5 mg 11/02/16 12:00 11/03/16 09:03 Norvasc - PO 2.5 mg DAILY [facility] Administration Atorvastatin Calcium 40 mg 10/30/16 22:00 11/02/16 22:20 Lipitor - PO 40 mg HS [facility] Administration Heparin Sodium (Porcine) 5,000 unit 10/30/16 22:00 11/03/16 05:59 Heparin - SQ 5,000 unit TID [facility] Administration Fat Emulsion Intravenous 250 mls @ 20.833 mls/hr 10/30/16 22:00 11/02/16 22:15 Intralipid - IV 20.833 mls/hr DAILY@2200 [facility] Administration Pantoprazole Sodium 100 mls @ 200 mls/hr 10/31/16 10:00 11/03/16 09:04 Protonix 40mg Ivpb (Pre-Docked) IVPB 200 mls/hr DAILY [facility] Administration Lactated Ringer's 1,000 mls @ 42 mls/hr 10/31/16 08:00 11/03/16 08:00 Lactated Ringers Solution IV 42 mls/hr ASDIR [facility] Administration Meropenem 500 mg/ Dextrose 100 mls @ 200 mls/hr 11/02/16 11:30 11/03/16 09:06 IVPB 200 mls/hr Q8H-IV [facility] Administration Dextrose 100 ml/ Sodium 1,105 mls @ 92 mls/hr 11/02/16 12:00 11/03/16 00:57 Chloride 20 meq/ Amino Acids IVPB 92 mls/hr Q12H [facility] Administration Potassium Phosphate 30 mm/ 1,115 mls @ 92 mls/hr 11/03/16 10:00 11/03/16 10:00 Sodium Chloride 20 meq/ IVPB 11/03/16 22:07 92 mls/hr Dextrose 100 ml/ Amino Acids ONCE ONE Administration Labetalol HCl 10 mg 11/03/16 11:02 11/03/16 11:17 Normodyne Injection - IVPUSH 10 mg Q6H PRN Administration HYPERTENSION Metoclopramide HCl 10 mg 10/30/16 15:45 11/03/16 09:03 Reglan Injection - IVPB 10 mg Q6H-IV [facility] Administration Morphine Sulfate 2 mg 10/31/16 20:19 11/01/16 16:38 Morphine Injection - IVPUSH 2 mg Q4H PRN Administration PAIN LEVEL 1-5 Morphine Sulfate 4 mg 10/31/16 20:21 11/02/16 20:30 Morphine Injection - IVPUSH 4 mg Q4H PRN Administration PAIN LEVEL 6-10 Multivitamins/Minerals 10 ml 10/31/16 10:00 11/03/16 10:00 Infuvite Adult - IV Not Given DAILY [facility] Travatan 0.004% Eye 1 each 10/30/16 22:00 11/02/16 22:14 Drops OU 1 each HS [facility] Administration Systane Ultra Eye 1 each 10/30/16 22:00 11/03/16 09:05 Drops OU 1 each BID [facility] Administration Ondansetron HCl 8 mg 10/30/16 14:35 Zofran Injection IVPB Q6H PRN NAUSEA AND/OR VOMITING Oxycodone HCl 5 mg 10/30/16 14:35 Roxicodone - PO Q6H PRN PAIN Potassium Chloride 40 meq 11/03/16 11:15 11/03/16 11:17 Potassium Chloride Oral Liquid PO 40 meq BID [facility] Administration ASSESSMENT/PLAN: 81 yr old man with HTN, HLD, hx of CVA, TIA with recent small bowel obstruction/ abdominal mass removal having several days of nausea and emesis transferred to the ICU due to respiratory distress. Pulmonary respiratory distress likely due to abdominal distention caused by ileus - improving nasal cannula 2.5L = saturation 93%, attempt to titrate to maintain sat >92% inhalers prn, incentive spirometer GI POD #13(10/21) of small bowel obstruction/mass - mass pathology was non- malignant. NGT for decompression - output trending down, once output stops can [place] dc, was clamped today, scant output once restarted, concern for mucosal trauma, will monitor for further bleeding. clinimix IV with lipids until patient starts to take po - monitor glucose with BGMs ACHS NPO except for meds when NGT is clamped for 4 hours consult: Dr. goyal Cardiovascular HTN - uncontrolled - norvasc 5mg po, metoprolol XL 200mg po daily -> changed to labetatol 10mg q6hr if SBP>150, diastolic>100 CAD - hold lipitor and plavix Infectious Disease blood cx positive with Klebsiella IV abx de-escalated to cefazolin 1gm q8hr consult: dr. Bernal Hematological leucocytosis - concern for infectious process GI//Pulmonary in origin - improving Neurological confused, continue to orient. wrist restraints for safety. DVT: heparin TID, oob when able Diet: clinimix Visit type - Emergency Visit Emergency Visit: No - New Patient This patient is new to me today: No - Critical Care Critical Care patient: Yes Total Critical Care Time (in minutes): 36 Critical Care Statement: The care of this patient involved high complexity decision making to prevent further life threatening deterioration of the patient 's condition and/or to evalute & treat vital organ system(s) failure or risk of failure.
--- NOTE | 2016-11-03 13:02 | PN ---
Progress Note (short form) - Note Progress Note: surgery surgery pt seen and examined. awake. no pain. states he had a small bm. 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 cont ngt. nutrition note reviewed and needs to be recalculated for 2 liters of clinimix plus 250 ml lipids. suspect about 1180 calories and 85g protein which would be 20 nancy/kg and 1.4g protein/kg. willing to wait up to month for function to return but suspect it will return sooner. more dextrose added to increase calories to 350 more per day which will be about 25 nancy/kg leukocytosis ??- improving. klebsiella in blood. pnemonia on cxr. cont to hold plavix on slight chance of operative intervention (not indicated for gut dysfunction) but surgery now would encounter a hostile abd from surgery 12 days ago.
[2016-11-03] MEDS: morphine CARPU-JECT 2 MG/1 ML DISP.SYRIN IVPUSH PRN (15:59)
--- NOTE | 2016-11-03 16:06 | PN ---
Progress Note, Physician Chief Complaint: Pt denies chest pain or dyspnea; denies abdominal pain. History of Present Illness: 81-year-old black male with no history of abdominal surgery presents to the emergency department complaining of periumbilical 6/10 sharp nonradiating intermittent discomfort with nausea no vomiting, fever, chills, chest pain, shortness of breath, flank pains, urinary symptoms. There are no alleviating or exacerbating factors. Last bowel movement 4 days ago. - Current Medication List Current Medications: Active Medications Aclidinium [place] (Tudorza -) 1 puff IH BID [facility] Last Admin: 11/03/16 09:04 Dose: 1 puff Albuterol Sulfate (Ventolin 0.083% Nebulizer Soln -) 1 amp NEB Q4H PRN PRN Reason: SHORT OF BREATH/WHEEZING Amlodipine Besylate (Norvasc -) 2.5 mg PO DAILY [facility] Last Admin: 11/03/16 09:03 Dose: 2.5 mg Atorvastatin Calcium (Lipitor -) 40 mg PO HS [facility] Last Admin: 11/02/16 22:20 Dose: 40 mg Heparin Sodium (Porcine) (Heparin -) 5,000 unit SQ TID [facility] Last Admin: 11/03/16 13:35 Dose: 5,000 unit Fat Emulsion Intravenous (Intralipid -) 250 mls @ 20.833 mls/hr IV DAILY@2200 [facility] Last Admin: 11/02/16 22:15 Dose: 20.833 mls/hr Pantoprazole Sodium (Protonix 40mg Ivpb (Pre-Docked)) 100 mls @ 200 mls/hr IVPB DAILY [facility] Last Admin: 11/03/16 09:04 Dose: 200 mls/hr Lactated Ringer's (Lactated Ringers Solution) 1,000 mls @ 42 mls/hr IV ASDIR [facility] Last Admin: 11/03/16 08:00 Dose: 42 mls/hr Dextrose 100 ml/ Sodium (Chloride 20 meq/ Amino Acids) 1,105 mls @ 92 mls/hr IVPB Q12H [facility] Last Admin: 11/03/16 00:57 Dose: 92 mls/hr Potassium Phosphate 30 mm/Sodium Chloride 20 meq/Dextrose 100 ml/ Amino Acids 1 ,115 mls @ 92 mls/hr IVPB ONCE ONE Stop: 11/03/16 22:07 Last Admin: 11/03/16 10:00 Dose: 92 mls/hr Cefazolin Sodium (Ancef 1gm Ivpb (Pre-Docked)) 50 mls @ 100 mls/hr IVPB Q8H-IV [facility] Labetalol HCl (Normodyne Injection -) 10 mg IVPUSH Q6H PRN PRN Reason: HYPERTENSION Last Admin: 11/03/16 11:17 Dose: 10 mg Metoclopramide HCl (Reglan Injection -) 10 mg IVPB Q6H-IV [facility] Last Admin: 11/03/16 14:01 Dose: 10 mg Morphine Sulfate (Morphine Injection -) 2 mg IVPUSH Q4H PRN PRN Reason: PAIN LEVEL 1-5 Last Admin: 11/03/16 15:59 Dose: 2 mg Morphine Sulfate (Morphine Injection -) 4 mg IVPUSH Q4H PRN PRN Reason: PAIN LEVEL 6-10 Last Admin: 11/02/16 20:30 Dose: 4 mg Multivitamins/Minerals (Infuvite Adult -) 10 ml IV DAILY [facility] Last Admin: 11/03/16 10:00 Dose: Not Given Travatan 0.004% Eye (Drops) 1 each OU HS [facility] Last Admin: 11/02/16 22:14 Dose: 1 each Systane Ultra Eye (Drops) 1 each OU BID [facility] Last Admin: 11/03/16 09:05 Dose: 1 each Ondansetron HCl (Zofran Injection) 8 mg IVPB Q6H PRN PRN Reason: NAUSEA AND/OR VOMITING Potassium Chloride (Potassium Chloride Oral Liquid) 40 meq PO BID [facility] Last Admin: 11/03/16 11:17 Dose: 40 meq - Objective Vital Signs: Vital Signs Temperature 98.0 F 11/03/16 14:00 Pulse Rate 99 H 11/03/16 14:00 Respiratory Rate 22 11/03/16 14:00 Blood Pressure 160/95 11/03/16 14:00 O2 Sat by Pulse Oximetry (%) 100 11/03/16 08:00 Constitutional: Yes: Calm Eyes: Yes: WNL HENT: Yes: WNL Neck: Yes: WNL Cardiovascular: Yes: Regular Rate and Rhythm Respiratory: Yes: Regular Gastrointestinal: Yes: Soft, Other (surgical site nontender) Genitourinary: No: Anuria Musculoskeletal: Yes: Muscle Weakness Extremities: Yes: Cool Edema: No Peripheral Pulses WNL: No Peripheral Pulses: Left Doralis Pedis: 1+, Right Dorsalis Pedis: 1+ Wound/Incision: Yes: Clean/Dry, Open to air Neurological: Yes: Alert, Weakness Psychiatric: Yes: Alert Labs: CBC, BMP 11/03/16 05:20 11/03/16 05:20 Abnormal Lab Results 11/03/16 11/03/16 05:20 05:20 WBC 21.1 H Monocytes % 2.0 L Potassium 3.1 L Creatinine 0.5 L Random Glucose 179 H D Calcium 8.3 L Phosphorus 1.3 L D AST 42 H Alkaline Phosphatase 123 H D Total Protein 4.9 L Albumin 1.7 L Problem List - Problems (1) Diastolic CHF Assessment/Plan: continue present medications (amlodipine; metoprolol changed to labetolol due to HTN; would change back to metoprolol once BP controlled due to PSVT). Increase amlodipine; f/u BP. See "HTN". F/u Is and Os, daily weight, BUN/Cr, electrolytes. Physical rehabilitation. Code(s): I50.30 - UNSPECIFIED DIASTOLIC (CONGESTIVE) HEART FAILURE (2) Hyperlipidemia Assessment/Plan: On atorvastatin; keep LDL cholesterol < 70 mg/dL. Code(s): E78.5 - HYPERLIPIDEMIA, UNSPECIFIED (3) PSVT (paroxysmal supraventricular tachycardia) Code(s): I47.1 - SUPRAVENTRICULAR TACHYCARDIA (4) SBO (small bowel obstruction) Assessment/Plan: f/u with surgeon (returned to ICU; NGT reinserted). Code(s): K56.69 - OTHER INTESTINAL OBSTRUCTION (5) Small bowel mass Code(s): K63.89 - OTHER SPECIFIED DISEASES OF INTESTINE (6) HTN (hypertension) Assessment/Plan: Now again on labetolol. On amlodipine; increased to 5 mg daily. Consider adding ACEI, ARB (hypokalemic), if diuretic added, guard against further electrolyte depletion. Serial BP and HR checks. Code(s): I10 - ESSENTIAL (PRIMARY) HYPERTENSION (7) Weakness Code(s): R53.1 - WEAKNESS (8) Hypothyroid Assessment/Plan: decreased TSH; f/u free T3 and free T4. Code(s): E03.9 - HYPOTHYROIDISM, UNSPECIFIED (9) Confusion Assessment/Plan: head CT: no acute pathology. more alert. F/u with neurologist. Code(s): R41.0 - DISORIENTATION, UNSPECIFIED (10) Hypokalemia Assessment/Plan: replete K; keep 4-4.5 (hx PSVT). Keep Mg 2-2.3 Keep Po4 2.5-3.5. Consider adding ACEI or ARB for BP; may increase K. Code(s): E87.6 - HYPOKALEMIA
[2016-11-03] MEDS ORDERED: amLODIPine BESYLATE 2.5 MG TABLET (FP) PO ONE (17:30)
[2016-11-03] MEDS: CEFAZOLIN (PRE-DOCKED) 50 ML IVPB SCH (17:51)
[2016-11-03] MEDS ORDERED: LACTATED RINGERS SOLUTION 1,000 ML IV SCH (19:49)
[2016-11-03] MEDS: ATORVASTATIN CA 40 MG TABLET (FP) PO SCH (22:27)
[2016-11-03] MEDS: FAT EMULSIONS 250 ML IV SCH (22:28)
[2016-11-03] MEDS: TRAVATAN 0.004% OU SCH (22:33)
[2016-11-03] MEDS: EYE OU SCH (22:33)
--- NOTE | 2016-11-03 23:53 | PN ---
Progress Note, Physician History of Present Illness: Pt was transferred back to ICU. Post op day 12 NGT was inserted again, on low sucction. Pt with cough and productive yellow sputum- better this AM Pt without abd pain Pt w/o fever, chills. Pt w/o CP, SOB, Palp. Pt was seen in AM - Current Medication List Current Medications: Active Medications Aclidinium [place] (Tudorza -) 1 puff IH BID [facility] Last Admin: 11/03/16 22:31 Dose: 1 puff Albuterol Sulfate (Ventolin 0.083% Nebulizer Soln -) 1 amp NEB Q4H PRN PRN Reason: SHORT OF BREATH/WHEEZING Amlodipine Besylate (Norvasc -) 5 mg PO DAILY [facility] Atorvastatin Calcium (Lipitor -) 40 mg PO HS [facility] Last Admin: 11/03/16 22:27 Dose: 40 mg Heparin Sodium (Porcine) (Heparin -) 5,000 unit SQ TID [facility] Last Admin: 11/03/16 22:32 Dose: 5,000 unit Fat Emulsion Intravenous (Intralipid -) 250 mls @ 20.833 mls/hr IV DAILY@2200 [facility] Last Admin: 11/03/16 22:28 Dose: 20.833 mls/hr Pantoprazole Sodium (Protonix 40mg Ivpb (Pre-Docked)) 100 mls @ 200 mls/hr IVPB DAILY [facility] Last Admin: 11/03/16 09:04 Dose: 200 mls/hr Dextrose 100 ml/ Sodium (Chloride 20 meq/ Amino Acids) 1,105 mls @ 92 mls/hr IVPB Q12H [facility] Last Admin: 11/03/16 00:57 Dose: 92 mls/hr Cefazolin Sodium (Ancef 1gm Ivpb (Pre-Docked)) 50 mls @ 100 mls/hr IVPB Q8H-IV [facility] Last Admin: 11/03/16 17:51 Dose: 100 mls/hr Lactated Ringer's (Lactated Ringers Solution) 1,000 mls @ 42 mls/hr IV ASDIR [facility] Last Admin: 11/03/16 22:32 Dose: Not Given Labetalol HCl (Normodyne Injection -) 10 mg IVPUSH Q6H PRN PRN Reason: HYPERTENSION Last Admin: 11/03/16 17:52 Dose: 10 mg Metoclopramide HCl (Reglan Injection -) 10 mg IVPB Q6H-IV [facility] Last Admin: 11/03/16 22:32 Dose: 10 mg Morphine Sulfate (Morphine Injection -) 2 mg IVPUSH Q4H PRN PRN Reason: PAIN LEVEL 1-5 Last Admin: 11/03/16 15:59 Dose: 2 mg Morphine Sulfate (Morphine Injection -) 4 mg IVPUSH Q4H PRN PRN Reason: PAIN LEVEL 6-10 Last Admin: 11/02/16 20:30 Dose: 4 mg Multivitamins/Minerals (Infuvite Adult -) 10 ml IV DAILY [facility] Last Admin: 11/03/16 10:00 Dose: Not Given Travatan 0.004% Eye (Drops) 1 each OU HS [facility] Last Admin: 11/03/16 22:33 Dose: 1 each Systane Ultra Eye (Drops) 1 each OU BID [facility] Last Admin: 11/03/16 22:33 Dose: 1 each Ondansetron HCl (Zofran Injection) 8 mg IVPB Q6H PRN PRN Reason: NAUSEA AND/OR VOMITING Potassium Chloride (Potassium Chloride Oral Liquid) 40 meq PO BID [facility] Last Admin: 11/03/16 22:27 Dose: 40 meq - Objective Vital Signs: Vital Signs Temperature 98.7 F 11/03/16 18:00 Pulse Rate 83 11/03/16 18:00 Respiratory Rate 21 11/03/16 18:00 Blood Pressure 139/78 11/03/16 18:00 O2 Sat by Pulse Oximetry (%) 100 11/03/16 08:00 Constitutional: Yes: No Distress, Calm Cardiovascular: Yes: Tachycardia, S1, S2 Respiratory: Yes: Regular, CTA Bilaterally, Rales, Rhonchi (minimal at bases), Other (coarse throughout) Gastrointestinal: Yes: Normal Bowel Sounds, Soft, Hypoactive Bowel Sounds. No: Tenderness Edema: No Labs: CBC, BMP 11/03/16 05:20 11/03/16 05:20 Problem List - Problems (1) Small bowel mass Code(s): K63.89 - OTHER SPECIFIED DISEASES OF INTESTINE (2) SBO (small bowel obstruction) Code(s): K56.69 - OTHER INTESTINAL OBSTRUCTION (3) Pneumatosis intestinalis Code(s): K63.89 - OTHER SPECIFIED DISEASES OF INTESTINE (4) CHF (congestive heart failure) Code(s): I50.9 - HEART FAILURE, UNSPECIFIED (5) CVA (cerebral infarction) Code(s): I63.9 - CEREBRAL INFARCTION, UNSPECIFIED (6) Chronic obstructive pulmonary disease Code(s): J44.9 - CHRONIC OBSTRUCTIVE PULMONARY DISEASE, UNSPECIFIED (7) Hyperlipidemia Code(s): E78.5 - HYPERLIPIDEMIA, UNSPECIFIED (8) Hypokalemia due to inadequate potassium intake Code(s): E87.6 - HYPOKALEMIA (9) Hypophosphatemia Code(s): E83.39 - OTHER DISORDERS OF PHOSPHORUS METABOLISM (10) HTN (hypertension) Code(s): I10 - ESSENTIAL (PRIMARY) HYPERTENSION (11) Hypomagnesemia Code(s): E83.42 - HYPOMAGNESEMIA (12) Bandemia Assessment/Plan: Improving Code(s): D72.825 - BANDEMIA (13) Pneumonia Assessment/Plan: Location: LLL Code(s): J18.9 - PNEUMONIA, UNSPECIFIED ORGANISM (14) Bacteremia Code(s): R78.81 - BACTEREMIA Assessment/Plan GI and surgical f/u appreciated post OP day 12 Pt wants his to make medical decisions if he cannot; both daughter agrees with pt. All family's questions were answered Pt is hemodynamically stable. Pt with poor PO intake; pt with N and V for the last couple of days; NGT was reinserted again; to f/u with Sx. Pt with + BCX, LLL PNA On IV abtx- readjusted per BCX Replace K, Mg, Ph Labetalol IVP for better BP and HR control AM labs. Prognosis: reserved. Case was d/w pt's nurse. Time spent for managing pt's care: 35 min.
[2016-11-04] MEDS: morphine CARPU-JECT 2 MG/1 ML DISP.SYRIN IVPUSH PRN ×2 (02:18→22:30)
[2016-11-04] MEDS: CEFAZOLIN (PRE-DOCKED) 50 ML IVPB SCH ×3 (02:18→17:45)
[2016-11-04] MEDS: WATER IVPB SCH ×2 (02:19→17:44)
[2016-11-04] MEDS: [UNRECOGNIZED DRUG - OTHER] IVPB SCH ×2 (02:19→17:44)
[2016-11-04] MEDS: DEXTROSE IVPB SCH ×2 (02:19→17:44)
[2016-11-04] MEDS: SODIUM CHLORIDE IVPB SCH ×2 (02:19→17:44)
[2016-11-04] MEDS: MULTIVIT INJ. ADULT COMBO WITH VIT K 1 COMBO 10 ML VIAL IV SCH (02:21)
[2016-11-04] MEDS: METOCLOPRAMIDE HCL INJECTION 10 MG/2 ML VIAL IVPB SCH ×4 (02:39→21:13)
[2016-11-04] MEDS: HEPARIN NA (PORCINE) 5,000 UNITS/ML 1ML VIAL SQ SCH ×3 (06:06→21:13)
--- NOTE | 2016-11-04 06:19 | PN ---
Physical Exam: SUBJECTIVE: Patient seen and examined. confused, pulled out his NGT this morning. coughing with thick white sputum No NGT output overnight OBJECTIVE: Vital Signs Period Temp Pulse Resp BP Sys/Hernandez Pulse Ox Last 24 Hr 97.9 F-99.1 F 82-103 18-22 139-177/65-95 100-100 GENERAL: awake, alert, in wrist restraints, EYES: perrla,eomi, sclera anicteric, conjunctiva clear. EARS, NOSE, THROAT: oropharynx clear without exudates/lesions/erythema. dry mucous membranes. thick white nonbloody phlegm LUNGS: few crackles in right lower base, clear on left, no wheezing. No accessory muscle use. HEART: Regular rhythm, tachycardia, normal S1 and S2 without murmur, rub or gallop. ABDOMEN: soft, mild abdominal tenderness, no progression of ecchymosis sites located midquadrant right and left next to but not inclusive of insicion line, nondistended, increased bowel sounds on all quadrants, no guarding, no rebound, no masses. mildline incision with tiffanie in place without erythema/discharge UPPER EXTREMITIES: 2+ radial, pulses, cool hands, well-perfused. + clubbing. nonpitting edema in b/l hands - improved since yesterday LOWER EXTREMITIES: 2+ dorsalis pulses, warm, well-perfused. No calf tenderness. No peripheral edema. NEUROLOGICAL:oriented to person/place not date/situation. Laboratory Results - last 24 hr 11/03/16 11/03/16 11/03/16 05:20 05:20 11:29 WBC 21.1 H RBC 4.52 Hgb 12.4 Hct 37.8 MCV 83.6 MCHC 32.7 RDW 14.1 Plt Count 329 MPV 8.6 Neutrophils % 79.0 Lymphocytes % 10.0 D Monocytes % 2.0 L Eosinophils % 1.0 D Basophils % 0.0 Band Neutrophils 6.0 D Myelocytes 2 D Differential Comment Manual diff done Platelet Estimate Adequate Sodium 139 Potassium 3.1 L Chloride 100 Carbon Dioxide 30 Anion Gap 9 BUN 14 Creatinine 0.5 L Creat Clearance w eGFR > 60 POC Glucometer [phone] Random Glucose 179 H D Calcium 8.3 L Phosphorus 1.3 L D Magnesium 1.8 Total Bilirubin 1.0 AST 42 H ALT 41 D Alkaline Phosphatase 123 H D Total Protein 4.9 L Albumin 1.7 L Active Medications Generic Name Dose Route Start Last Admin Trade Name Freq PRN Reason Stop Dose Admin Aclidinium [place] 1 puff 10/30/16 22:00 11/03/16 22:31 Tudorza - IH 1 puff BID [facility] Administration Albuterol Sulfate 1 amp 10/30/16 14:35 Ventolin 0.083% Nebulizer Soln - NEB Q4H PRN SHORT OF BREATH/WHEEZING Amlodipine Besylate 5 mg 11/04/16 10:00 Norvasc - PO DAILY [facility] Atorvastatin Calcium 40 mg 10/30/16 22:00 11/03/16 22:27 Lipitor - PO 40 mg HS [facility] Administration Heparin Sodium (Porcine) 5,000 unit 10/30/16 22:00 11/04/16 06:06 Heparin - SQ 5,000 unit TID [facility] Administration Fat Emulsion Intravenous 250 mls @ 20.833 mls/hr 10/30/16 22:00 11/03/16 22:28 Intralipid - IV 20.833 mls/hr DAILY@2200 [facility] Administration Pantoprazole Sodium 100 mls @ 200 mls/hr 10/31/16 10:00 11/03/16 09:04 Protonix 40mg Ivpb (Pre-Docked) IVPB 200 mls/hr DAILY [facility] Administration Dextrose 100 ml/ Sodium 1,105 mls @ 92 mls/hr 11/02/16 12:00 11/04/16 02:19 Chloride 20 meq/ Amino Acids IVPB 92 mls/hr Q12H [facility] Administration Cefazolin Sodium 50 mls @ 100 mls/hr 11/03/16 18:00 11/04/16 02:18 Ancef 1gm Ivpb (Pre-Docked) IVPB 100 mls/hr Q8H-IV [facility] Administration Lactated Ringer's 1,000 mls @ 42 mls/hr 11/03/16 19:49 11/03/16 22:32 Lactated Ringers Solution IV Not Given ASDIR [facility] Labetalol HCl 10 mg 11/03/16 11:02 11/03/16 17:52 Normodyne Injection - IVPUSH 10 mg Q6H PRN Administration HYPERTENSION Metoclopramide HCl 10 mg 10/30/16 15:45 11/04/16 02:39 Reglan Injection - IVPB 10 mg Q6H-IV [facility] Administration Morphine Sulfate 2 mg 10/31/16 20:19 11/04/16 02:18 Morphine Injection - IVPUSH 2 mg Q4H PRN Administration PAIN LEVEL 1-5 Morphine Sulfate 4 mg 10/31/16 20:21 11/02/16 20:30 Morphine Injection - IVPUSH 4 mg Q4H PRN Administration PAIN LEVEL 6-10 Multivitamins/Minerals 10 ml 10/31/16 10:00 11/04/16 02:21 Infuvite Adult - IV 10 ml DAILY [facility] Administration Travatan 0.004% Eye 1 each 10/30/16 22:00 11/03/16 22:33 Drops OU 1 each HS [facility] Administration Systane Ultra Eye 1 each 10/30/16 22:00 11/03/16 22:33 Drops OU 1 each BID [facility] Administration Ondansetron HCl 8 mg 10/30/16 14:35 Zofran Injection IVPB Q6H PRN NAUSEA AND/OR VOMITING Potassium Chloride 40 meq 11/03/16 11:15 11/03/16 22:27 Potassium Chloride Oral Liquid PO 40 meq BID [facility] Administration ASSESSMENT/PLAN: 81 yr old man with HTN, HLD, hx of CVA, TIA with recent small bowel obstruction/ abdominal mass removal having several days of nausea and emesis transferred to the ICU due to respiratory distress. vieyra in place for urinary retention Pulmonary respiratory distress likely due to abdominal distention caused by ileus - improving nasal cannula 2.5L = saturation 91%, attempt to titrate to maintain sat >92% inhalers prn, incentive spirometer, will add chest PT to assist with bring up the phlegm GI POD #14(10/21) of small bowel obstruction/mass - mass pathology was non- malignant. NGT pulled out by patient clinimix IV with lipids until patient starts to take po - monitor glucose with BGMs ACHS NPO except for meds until discussed with surgeon about starting diet or TPN if continued consult: Dr. goyal Cardiovascular HTN - uncontrolled - changed to labetatol 10mg q6hr if SBP>150, diastolic>100 CAD - hold lipitor and plavix Infectious Disease blood cx positive with Klebsiella cefazolin 1gm q8hr - day 3 consult: dr. Bernal Hematological leucocytosis - improving Neurological confused, continue to orient. wrist restraints for safety. DVT: heparin TID, oob when able Diet: clinimix with repletion Visit type - Emergency Visit Emergency Visit: No - New Patient This patient is new to me today: No - Critical Care Critical Care patient: Yes Total Critical Care Time (in minutes): 36 Critical Care Statement: The care of this patient involved high complexity decision making to prevent further life threatening deterioration of the patient 's condition and/or to evalute & treat vital organ system(s) failure or risk of failure.
[2016-11-04] MEDS ORDERED: POTASSIUM PHOSPHATE 30 MM in SODIUM CHLORIDE 250 ML IVPB ONE (06:32)
[2016-11-04] MEDS ORDERED: MAGNESIUM SULF 50% (8.12 MEQ/2 ML-1 GM VIAL) IVPB ONE (06:33)
[2016-11-04 06:45] LABS: MCH 27.3 pg (25.7-33.7); MCHC 32.5 g/dl (32.0-35.9); MEAN PLT VOLUME 8.5 fl (7.5-11.1); PLATELET COUNT 302 K/MM3 (134-434); WHITE BLOOD COUNT 16.5 K/mm3 (4.0-10.0)
[2016-11-04 07:36] LABS: ANION GAP 10 (8-16); CO2 28 mmol/L (21-32); CREATININE 0.5 mg/dL (0.7-1.3); GLUCOSE,RANDOM 204 mg/dL (74-106); MAGNESIUM 1.8 mg/dL (1.8-2.4); PHOSPHOROUS 1.7 mg/dL (2.5-4.9)
--- NOTE | 2016-11-04 07:47 | PN ---
Progress Note, Physician Chief Complaint: ID Antibiotic changed to Cefazolin based on culture blood Comfortable - Current Medication List Current Medications: Active Medications Aclidinium [place] (Tudorza -) 1 puff IH BID [facility] Last Admin: 11/03/16 22:31 Dose: 1 puff Albuterol Sulfate (Ventolin 0.083% Nebulizer Soln -) 1 amp NEB Q4H PRN PRN Reason: SHORT OF BREATH/WHEEZING Amlodipine Besylate (Norvasc -) 5 mg PO DAILY [facility] Atorvastatin Calcium (Lipitor -) 40 mg PO HS [facility] Last Admin: 11/03/16 22:27 Dose: 40 mg Heparin Sodium (Porcine) (Heparin -) 5,000 unit SQ TID [facility] Last Admin: 11/04/16 06:06 Dose: 5,000 unit Fat Emulsion Intravenous (Intralipid -) 250 mls @ 20.833 mls/hr IV DAILY@2200 [facility] Last Admin: 11/03/16 22:28 Dose: 20.833 mls/hr Pantoprazole Sodium (Protonix 40mg Ivpb (Pre-Docked)) 100 mls @ 200 mls/hr IVPB DAILY [facility] Last Admin: 11/03/16 09:04 Dose: 200 mls/hr Dextrose 100 ml/ Sodium (Chloride 20 meq/ Amino Acids) 1,105 mls @ 92 mls/hr IVPB Q12H [facility] Last Admin: 11/04/16 02:19 Dose: 92 mls/hr Cefazolin Sodium (Ancef 1gm Ivpb (Pre-Docked)) 50 mls @ 100 mls/hr IVPB Q8H-IV [facility] Last Admin: 11/04/16 02:18 Dose: 100 mls/hr Potassium Phosphate 30 mm/ (Sodium Chloride) 260 mls @ 62.5 mls/hr IVPB ONCE ONE Stop: 11/04/16 10:41 Potassium Chloride (Potassium Chloride 10 Meq Premix Ivpb -) 100 mls @ 100 mls/ hr IVPB Q60M [facility] Stop: 11/04/16 10:29 Labetalol HCl (Normodyne Injection -) 10 mg IVPUSH Q6H PRN PRN Reason: HYPERTENSION Last Admin: 11/03/16 17:52 Dose: 10 mg Metoclopramide HCl (Reglan Injection -) 10 mg IVPB Q6H-IV [facility] Last Admin: 11/04/16 02:39 Dose: 10 mg Morphine Sulfate (Morphine Injection -) 2 mg IVPUSH Q4H PRN PRN Reason: PAIN LEVEL 1-5 Last Admin: 11/04/16 02:18 Dose: 2 mg Morphine Sulfate (Morphine Injection -) 4 mg IVPUSH Q4H PRN PRN Reason: PAIN LEVEL 6-10 Last Admin: 11/02/16 20:30 Dose: 4 mg Multivitamins/Minerals (Infuvite Adult -) 10 ml IV DAILY [facility] Last Admin: 11/04/16 02:21 Dose: 10 ml Travatan 0.004% Eye (Drops) 1 each OU HS [facility] Last Admin: 11/03/16 22:33 Dose: 1 each Systane Ultra Eye (Drops) 1 each OU BID [facility] Last Admin: 11/03/16 22:33 Dose: 1 each Ondansetron HCl (Zofran Injection) 8 mg IVPB Q6H PRN PRN Reason: NAUSEA AND/OR VOMITING - Objective Vital Signs: Vital Signs Temperature 98.6 F 11/04/16 06:00 Pulse Rate 100 H 11/04/16 06:00 Respiratory Rate 20 11/04/16 06:00 Blood Pressure 169/97 11/04/16 06:00 O2 Sat by Pulse Oximetry (%) 100 11/03/16 21:00 Constitutional: Yes: No Distress Neck: Yes: WNL, Supple Cardiovascular: Yes: S1, S2 Respiratory: Yes: WNL, Regular, CTA Bilaterally Gastrointestinal: Yes: WNL, Normal Bowel Sounds, Soft. No: Tenderness Extremities: No: Cold, Cool, Cyanosis Edema: No Labs: CBC, BMP 11/04/16 05:20 11/04/16 05:20 Assessment/Plan Microbiology 11/02/16 02:00 Sputum - Expectorated Gram Stain - Final 11/01/16 12:15 Blood - Peripheral Venous Blood Culture - Final Klebsiella Pneumoniae 11/02/16 02:00 Sputum - Expectorated Sputum Culture - Preliminary NORMAL RESPIRATORY CONG Laboratory Tests 11/03/16 11/04/16 05:20 05:20 WBC 16.5 H Hgb 12.3 Plt Count 302 AST 42 H ALT 41 D Alkaline Phosphatase 123 H D Assessment Exploratory lap 10/21 now with complicating Klebsiella bacteremia and pneumonia pansensitive Plan Continue current IV therapy Cefazolin as ordered bacteremia 11/01 Alexandru MARRERO
[2016-11-04] MEDS: KCL 10 MEQ IVPB 100 ML IVPB SCH ×3 (07:50→10:46)
[2016-11-04] MEDS: LABETALOL HCL 5 MG/1 ML (100MG/20 ML VIAL) IVPUSH PRN (08:16)
[2016-11-04 08:25] LABS: ACANTHOCYTES 1+; PLATELET ESTIMATE ADEQUATE (NORMAL)
[2016-11-04 09:54] LABS: ALBUMIN 1.8 g/dl (3.4-5.0)
[2016-11-04] MEDS ORDERED: PT OWN MED DRAWER 7, Y5N ONE (10:31)
[2016-11-04 10:42] LABS: FREE T4 1.63 ng/dl (0.76-1.16)
[2016-11-04] MEDS: amLODIPine BESYLATE 5 MG TABLET (FP) PO SCH (10:42)
[2016-11-04] MEDS: PANTOPRAZOLE SODIUM 100 ML IVPB SCH (10:44)
[2016-11-04] MEDS: ACLIDINIUM BROMIDE 400 MCG/INH AERO.POWD IH SCH ×2 (10:45→21:23)
--- NOTE | 2016-11-04 11:04 | PN ---
Teaching Attending Note Name of Resident: Lupe Juan ATTENDING PHYSICIAN STATEMENT I saw and evaluated the patient. I reviewed the resident's note and discussed the case with the resident. I agree with the resident's findings and plan as documented. SUBJECTIVE: Pt seen and examined in the ICU. Pt pulled out NGT overnight. Pain relatively controlled. No nausea or vomiting. +flatus but no BM yet. OBJECTIVE: Last Vital Signs Temp Pulse Resp BP Pulse Ox 98.2 F 84 19 156/81 93 L 11/04/16 10:00 11/04/16 10:10 11/04/16 10:00 11/04/16 10:00 11/04/16 10:10 Intake & Output 11/01/16 11/02/16 11/03/16 11/04/16 23:59 23:59 23:59 23:59 Intake Total 2736 3401 3602 1456 Output Total 2450 2450 2025 900 Balance 194 638 6171 556 Weight 131 lb 1 oz 128 lb 1 oz 130 lb 5 oz Gen: confused, less tachypneic Heart: RRR Lung: scattered rhonchi Abd: soft, incision clean, better bowel sounds Ext: no edema CBC, BMP 11/04/16 05:20 11/04/16 05:20 Active Medications Aclidinium [place] (Tudorza -) 1 puff IH BID [facility] Last Admin: 11/04/16 10:45 Dose: 1 puff Albuterol Sulfate (Ventolin 0.083% Nebulizer Soln -) 1 amp NEB Q4H PRN PRN Reason: SHORT OF BREATH/WHEEZING Amlodipine Besylate (Norvasc -) 5 mg PO DAILY [facility] Last Admin: 11/04/16 10:42 Dose: 5 mg Atorvastatin Calcium (Lipitor -) 40 mg PO HS [facility] Last Admin: 11/03/16 22:27 Dose: 40 mg Heparin Sodium (Porcine) (Heparin -) 5,000 unit SQ TID [facility] Last Admin: 11/04/16 06:06 Dose: 5,000 unit Fat Emulsion Intravenous (Intralipid -) 250 mls @ 20.833 mls/hr IV DAILY@2200 [facility] Last Admin: 11/03/16 22:28 Dose: 20.833 mls/hr Pantoprazole Sodium (Protonix 40mg Ivpb (Pre-Docked)) 100 mls @ 200 mls/hr IVPB DAILY [facility] Last Admin: 11/04/16 10:44 Dose: 200 mls/hr Dextrose 100 ml/ Sodium (Chloride 20 meq/ Amino Acids) 1,105 mls @ 92 mls/hr IVPB Q12H [facility] Last Admin: 11/04/16 02:19 Dose: 92 mls/hr Cefazolin Sodium (Ancef 1gm Ivpb (Pre-Docked)) 50 mls @ 100 mls/hr IVPB Q8H-IV [facility] Last Admin: 11/04/16 10:28 Dose: 100 mls/hr Labetalol HCl (Normodyne Injection -) 10 mg IVPUSH Q6H PRN PRN Reason: HYPERTENSION Last Admin: 11/04/16 08:16 Dose: 10 mg Metoclopramide HCl (Reglan Injection -) 10 mg IVPB Q6H-IV [facility] Last Admin: 11/04/16 10:29 Dose: 10 mg Morphine Sulfate (Morphine Injection -) 2 mg IVPUSH Q4H PRN PRN Reason: PAIN LEVEL 1-5 Last Admin: 11/04/16 02:18 Dose: 2 mg Morphine Sulfate (Morphine Injection -) 4 mg IVPUSH Q4H PRN PRN Reason: PAIN LEVEL 6-10 Last Admin: 11/02/16 20:30 Dose: 4 mg Multivitamins/Minerals (Infuvite Adult -) 10 ml IV DAILY [facility] Last Admin: 11/04/16 02:21 Dose: 10 ml Travatan 0.004% Eye (Drops) 1 each OU HS [facility] Last Admin: 11/03/16 22:33 Dose: 1 each Systane Ultra Eye (Drops) 1 each OU BID [facility] Last Admin: 11/03/16 22:33 Dose: 1 each Ondansetron HCl (Zofran Injection) 8 mg IVPB Q6H PRN PRN Reason: NAUSEA AND/OR VOMITING ASSESSMENT AND PLAN: Pneumoatosis Intestinalis/Small Bowel Obstruction s/p ex-lap/SB resection COPD HTN Hyperlipidemia CHF h/o CVA - continue clinimix - replete lytes - antibiotics per ID - pain control - incentive spirometry - await return of bowel function - O2 to keep SpO2 >90% - DVT prophylaxis - OOB to chair - continue ICU monitoring for now critical care time spent in reviewing chart, evaluating patient and formulating plan 35 min
--- NOTE | 2016-11-04 11:23 | PN ---
Progress Note (short form) - Note Progress Note: surgery surgery pt seen and examined. awake. no pain. removed his own ngt. still admits to flatus. 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 will keep ngt out but maintain npo except meds. nutrition note updated to reflect 25 nancy/kg and adequate protein. This should be sufficient. leukocytosis improving. klebsiella in blood. pnemonia on cxr. abx per id. not abdominal source can resume anticoagulation and plavix if inidicated. suspect gut dysfunction will improve with time and treatment of pneumonia.
--- NOTE | 2016-11-04 11:41 | PN ---
Progress Note, Physician History of Present Illness: Pt was transferred back to ICU. Post op day 13 Pt removed NGT. Pt with cough and productive yellow sputum- better this AM Pt without abd pain Pt w/o fever, chills. Pt w/o CP, SOB, Palp. - Current Medication List Current Medications: Active Medications Aclidinium [place] (Tudorza -) 1 puff IH BID [facility] Last Admin: 11/04/16 10:45 Dose: 1 puff Albuterol Sulfate (Ventolin 0.083% Nebulizer Soln -) 1 amp NEB Q4H PRN PRN Reason: SHORT OF BREATH/WHEEZING Amlodipine Besylate (Norvasc -) 5 mg PO DAILY [facility] Last Admin: 11/04/16 10:42 Dose: 5 mg Atorvastatin Calcium (Lipitor -) 40 mg PO HS [facility] Last Admin: 11/03/16 22:27 Dose: 40 mg Heparin Sodium (Porcine) (Heparin -) 5,000 unit SQ TID [facility] Last Admin: 11/04/16 06:06 Dose: 5,000 unit Fat Emulsion Intravenous (Intralipid -) 250 mls @ 20.833 mls/hr IV DAILY@2200 [facility] Last Admin: 11/03/16 22:28 Dose: 20.833 mls/hr Pantoprazole Sodium (Protonix 40mg Ivpb (Pre-Docked)) 100 mls @ 200 mls/hr IVPB DAILY [facility] Last Admin: 11/04/16 10:44 Dose: 200 mls/hr Dextrose 100 ml/ Sodium (Chloride 20 meq/ Amino Acids) 1,105 mls @ 92 mls/hr IVPB Q12H [facility] Last Admin: 11/04/16 02:19 Dose: 92 mls/hr Cefazolin Sodium (Ancef 1gm Ivpb (Pre-Docked)) 50 mls @ 100 mls/hr IVPB Q8H-IV [facility] Last Admin: 11/04/16 10:28 Dose: 100 mls/hr Labetalol HCl (Normodyne Injection -) 10 mg IVPUSH Q6H PRN PRN Reason: HYPERTENSION Last Admin: 11/04/16 08:16 Dose: 10 mg Metoclopramide HCl (Reglan Injection -) 10 mg IVPB Q6H-IV [facility] Last Admin: 11/04/16 10:29 Dose: 10 mg Morphine Sulfate (Morphine Injection -) 2 mg IVPUSH Q4H PRN PRN Reason: PAIN LEVEL 1-5 Last Admin: 11/04/16 02:18 Dose: 2 mg Morphine Sulfate (Morphine Injection -) 4 mg IVPUSH Q4H PRN PRN Reason: PAIN LEVEL 6-10 Last Admin: 11/02/16 20:30 Dose: 4 mg Multivitamins/Minerals (Infuvite Adult -) 10 ml IV DAILY [facility] Last Admin: 11/04/16 02:21 Dose: 10 ml Travatan 0.004% Eye (Drops) 1 each OU HS [facility] Last Admin: 11/03/16 22:33 Dose: 1 each Systane Ultra Eye (Drops) 1 each OU BID [facility] Last Admin: 11/03/16 22:33 Dose: 1 each Ondansetron HCl (Zofran Injection) 8 mg IVPB Q6H PRN PRN Reason: NAUSEA AND/OR VOMITING - Objective Vital Signs: Vital Signs Temperature 98.2 F 11/04/16 10:00 Pulse Rate 84 11/04/16 10:10 Respiratory Rate 19 11/04/16 10:00 Blood Pressure 156/81 11/04/16 10:00 O2 Sat by Pulse Oximetry (%) 93 L 11/04/16 10:10 Constitutional: Yes: No Distress, Calm Cardiovascular: Yes: Regular Rate and Rhythm, S1, S2 Respiratory: Yes: Regular, Rhonchi Gastrointestinal: Yes: Normal Bowel Sounds, Soft. No: Tenderness Edema: No Neurological: Yes: Alert, Oriented Labs: CBC, BMP 11/04/16 05:20 11/04/16 05:20 Problem List - Problems (1) Small bowel mass Code(s): K63.89 - OTHER SPECIFIED DISEASES OF INTESTINE (2) SBO (small bowel obstruction) Code(s): K56.69 - OTHER INTESTINAL OBSTRUCTION (3) Pneumatosis intestinalis Code(s): K63.89 - OTHER SPECIFIED DISEASES OF INTESTINE (4) CHF (congestive heart failure) Code(s): I50.9 - HEART FAILURE, UNSPECIFIED (5) CVA (cerebral infarction) Code(s): I63.9 - CEREBRAL INFARCTION, UNSPECIFIED (6) Chronic obstructive pulmonary disease Code(s): J44.9 - CHRONIC OBSTRUCTIVE PULMONARY DISEASE, UNSPECIFIED (7) Hyperlipidemia Code(s): E78.5 - HYPERLIPIDEMIA, UNSPECIFIED (8) Hypokalemia due to inadequate potassium intake Code(s): E87.6 - HYPOKALEMIA (9) Hypophosphatemia Code(s): E83.39 - OTHER DISORDERS OF PHOSPHORUS METABOLISM (10) HTN (hypertension) Code(s): I10 - ESSENTIAL (PRIMARY) HYPERTENSION (11) Hypomagnesemia Code(s): E83.42 - HYPOMAGNESEMIA (12) Bandemia Code(s): D72.825 - BANDEMIA (13) Pneumonia Code(s): J18.9 - PNEUMONIA, UNSPECIFIED ORGANISM (14) Bacteremia Code(s): R78.81 - BACTEREMIA Assessment/Plan GI and surgical f/u appreciated post OP day 12 Pt wants his to make medical decisions if he cannot; both daughter agrees with pt. All family's questions were answered Pt is hemodynamically stable. Pt with poor PO intake; pt with N and V for the last couple of days; NGT was reinserted again; to f/u with Sx. Pt with + BCX, LLL PNA On IV abtx- readjusted per BCX Replace K, Mg, Ph Labetalol IVP for better BP and HR control AM labs. Prognosis: reserved. Case was d/w pt's nurse. Familly ( and dg from [place]) at bed side, all questions were answered. Incentive spirometri- I d/w pt and familly the importance of using it. Time spent for managing pt's care: 40 min.
--- NOTE | 2016-11-04 11:59 | PN ---
Progress Note, Physician History of Present Illness: 81 year old man with a history of HTN, HLD, COPD, CVA, AAA admitted with abdominal discomfort and constipation concerning for SBO. Pt seen and examined today in nad. He states that he had multiple small BM's yesterday and overnight. denies any current abd pain. denies chest pain, sob, palpitations. no pnd, orthopnea, or LE edema. NG tube in place. PMH LE angio 02/21/2015 Dr. Alcazar Left EIA/[employer] DCB 08/10/2014 Dr Alcazar PCI LCx 09/20/2014 Dr Alcazar Medical History Reviewed Condition Date Treating Physician Comments Claudication, intermittent HTN Hyperlipidemia TIA/CVA - Current Medication List Current Medications: Active Medications Aclidinium [place] (Tudorza -) 1 puff IH BID [facility] Last Admin: 11/04/16 10:45 Dose: 1 puff Albuterol Sulfate (Ventolin 0.083% Nebulizer Soln -) 1 amp NEB Q4H PRN PRN Reason: SHORT OF BREATH/WHEEZING Amlodipine Besylate (Norvasc -) 5 mg PO DAILY [facility] Last Admin: 11/04/16 10:42 Dose: 5 mg Atorvastatin Calcium (Lipitor -) 40 mg PO HS [facility] Last Admin: 11/03/16 22:27 Dose: 40 mg Heparin Sodium (Porcine) (Heparin -) 5,000 unit SQ TID [facility] Last Admin: 11/04/16 06:06 Dose: 5,000 unit Fat Emulsion Intravenous (Intralipid -) 250 mls @ 20.833 mls/hr IV DAILY@2200 [facility] Last Admin: 11/03/16 22:28 Dose: 20.833 mls/hr Pantoprazole Sodium (Protonix 40mg Ivpb (Pre-Docked)) 100 mls @ 200 mls/hr IVPB DAILY [facility] Last Admin: 11/04/16 10:44 Dose: 200 mls/hr Dextrose 100 ml/ Sodium (Chloride 20 meq/ Amino Acids) 1,105 mls @ 92 mls/hr IVPB Q12H [facility] Last Admin: 11/04/16 02:19 Dose: 92 mls/hr Cefazolin Sodium (Ancef 1gm Ivpb (Pre-Docked)) 50 mls @ 100 mls/hr IVPB Q8H-IV [facility] Last Admin: 11/04/16 10:28 Dose: 100 mls/hr Labetalol HCl (Normodyne Injection -) 10 mg IVPUSH Q6H PRN PRN Reason: HYPERTENSION Last Admin: 11/04/16 08:16 Dose: 10 mg Metoclopramide HCl (Reglan Injection -) 10 mg IVPB Q6H-IV [facility] Last Admin: 11/04/16 10:29 Dose: 10 mg Morphine Sulfate (Morphine Injection -) 2 mg IVPUSH Q4H PRN PRN Reason: PAIN LEVEL 1-5 Last Admin: 11/04/16 02:18 Dose: 2 mg Morphine Sulfate (Morphine Injection -) 4 mg IVPUSH Q4H PRN PRN Reason: PAIN LEVEL 6-10 Last Admin: 11/02/16 20:30 Dose: 4 mg Multivitamins/Minerals (Infuvite Adult -) 10 ml IV DAILY [facility] Last Admin: 11/04/16 02:21 Dose: 10 ml Travatan 0.004% Eye (Drops) 1 each OU HS [facility] Last Admin: 11/03/16 22:33 Dose: 1 each Systane Ultra Eye (Drops) 1 each OU BID [facility] Last Admin: 11/03/16 22:33 Dose: 1 each Ondansetron HCl (Zofran Injection) 8 mg IVPB Q6H PRN PRN Reason: NAUSEA AND/OR VOMITING - Objective Vital Signs: Vital Signs Temperature 98.2 F 11/04/16 10:00 Pulse Rate 84 11/04/16 10:10 Respiratory Rate 19 11/04/16 10:00 Blood Pressure 156/81 11/04/16 10:00 O2 Sat by Pulse Oximetry (%) 93 L 11/04/16 10:10 Eyes: Yes: WNL, Conjunctiva Clear, EOM Intact HENT: Yes: WNL, Atraumatic, Normocephalic Neck: Yes: WNL, Supple, Trachea Midline Cardiovascular: Yes: WNL, Regular Rate and Rhythm Respiratory: Yes: WNL, Regular, CTA Bilaterally Gastrointestinal: Yes: WNL, Normal Bowel Sounds Genitourinary: Yes: WNL Musculoskeletal: Yes: WNL Extremities: Yes: WNL Edema: No Integumentary: Yes: WNL Neurological: Yes: WNL, Alert, Oriented ...Motor Strength: WNL Psychiatric: Yes: WNL Labs: CBC, BMP 06/28/17 05:20 11/04/16 05:20 Assessment/Plan - Problems (1) Diastolic CHF Assessment/Plan: continue present medications (amlodipine; metoprolol changed to labetolol due to HTN; would change back to metoprolol once BP controlled due to PSVT). Increase amlodipine; f/u BP. See "HTN". F/u Is and Os, daily weight, BUN/Cr, electrolytes. Physical rehabilitation. Code(s): I50.30 - UNSPECIFIED DIASTOLIC (CONGESTIVE) HEART FAILURE (2) Hyperlipidemia Assessment/Plan: On atorvastatin; keep LDL cholesterol < 70 mg/dL. Code(s): E78.5 - HYPERLIPIDEMIA, UNSPECIFIED (3) PSVT (paroxysmal supraventricular tachycardia) Code(s): I47.1 - SUPRAVENTRICULAR TACHYCARDIA (4) SBO (small bowel obstruction) Assessment/Plan: f/u with surgeon (returned to ICU; NGT reinserted). Code(s): K56.69 - OTHER INTESTINAL OBSTRUCTION (5) Small bowel mass Code(s): K63.89 - OTHER SPECIFIED DISEASES OF INTESTINE (6) HTN (hypertension) Assessment/Plan: Now again on labetolol. On amlodipine; increased to 5 mg daily. Consider adding ACEI, ARB (hypokalemic), if diuretic added, guard against further electrolyte depletion. Serial BP and HR checks. Code(s): I10 - ESSENTIAL (PRIMARY) HYPERTENSION (7) Weakness Code(s): R53.1 - WEAKNESS (8) Hypothyroid Assessment/Plan: decreased TSH; f/u free T3 and free T4. Code(s): E03.9 - HYPOTHYROIDISM, UNSPECIFIED (9) Confusion Assessment/Plan: head CT: no acute pathology. more alert. F/u with neurologist. Code(s): R41.0 - DISORIENTATION, UNSPECIFIED (10) Hypokalemia Assessment/Plan: replete K; keep 4-4.5 (hx PSVT). Keep Mg 2-2.3 Keep Po4 2.5-3.5. Consider adding ACEI or ARB for BP; may increase K. Code(s): E87.6 - HYPOKALEMIA
[2016-11-04] MEDS: SYSTANE ULTRA EYE DROPS OU SCH ×2 (17:42→21:28)
[2016-11-04] MEDS: FAT EMULSIONS 250 ML IV SCH (21:13)
[2016-11-04] MEDS: ATORVASTATIN CA 40 MG TABLET (FP) PO SCH (21:14)
[2016-11-04] MEDS: TRAVATAN 0.004% OU SCH (21:28)
[2016-11-04] MEDS: EYE OU SCH (21:28)
[2016-11-05] MEDS ORDERED: PT OWN MED DRAWER 7, Y5N ONE (01:29)
[2016-11-05] MEDS: CEFAZOLIN (PRE-DOCKED) 50 ML IVPB SCH ×3 (01:31→18:04)
[2016-11-05] MEDS: morphine CARPU-JECT 4 MG/1 ML DISP.SYRIN IVPUSH PRN ×2 (01:33→22:51)
[2016-11-05] MEDS: MULTIVIT INJ. ADULT COMBO WITH VIT K 1 COMBO 10 ML VIAL IV SCH ×3 (01:34→21:31)
[2016-11-05] MEDS: WATER IVPB SCH ×4 (01:35→23:44)
[2016-11-05] MEDS: SODIUM CHLORIDE IVPB SCH ×4 (01:35→23:44)
[2016-11-05] MEDS: [UNRECOGNIZED DRUG - OTHER] IVPB SCH ×4 (01:35→23:44)
[2016-11-05] MEDS: DEXTROSE IVPB SCH ×4 (01:35→23:44)
[2016-11-05] MEDS: METOCLOPRAMIDE HCL INJECTION 10 MG/2 ML VIAL IVPB SCH ×4 (03:00→21:43)
[2016-11-05] MEDS: HEPARIN NA (PORCINE) 5,000 UNITS/ML 1ML VIAL SQ SCH ×3 (06:05→21:51)
[2016-11-05 07:01] LABS: BASOPHIL 0.1 % (0-2.0); EOSINOPHIL 1.1 % (0-4.5); MCH 27.9 pg (25.7-33.7); MCHC 33.4 g/dl (32.0-35.9); MEAN CELL VOLUME 83.6 fl (80-96); MEAN PLT VOLUME 8.8 fl (7.5-11.1); NEUTROPHILS 81.7 % (42.8-82.8); PLATELET COUNT 283 K/MM3 (134-434); RDW 14.1 % (11.9-15.9); WHITE BLOOD COUNT 15.9 K/mm3 (4.0-10.0)
[2016-11-05 07:04] LABS: ANION GAP 8 (8-16); CALCIUM 7.9 mg/dL (8.5-10.1); CO2 28 mmol/L (21-32); CREATININE 0.5 mg/dL (0.7-1.3); GLUCOSE,RANDOM 168 mg/dL (74-106); MAGNESIUM 1.8 mg/dL (1.8-2.4); PHOSPHOROUS 1.8 mg/dL (2.5-4.9)
[2016-11-05] MEDS: LABETALOL HCL 5 MG/1 ML (100MG/20 ML VIAL) IVPUSH PRN (08:08)
[2016-11-05] MEDS ORDERED: MAGNESIUM SULF 50% (8.12 MEQ/2 ML-1 GM VIAL) IVPB ONE (08:28)
[2016-11-05] MEDS ORDERED: SODIUM PHOSPHATE - 30 MM in SODIUM CHLORIDE 250 ML IVPB ONE (08:28)
[2016-11-05] MEDS: amLODIPine BESYLATE 5 MG TABLET (FP) PO SCH (09:36)
[2016-11-05] MEDS: PANTOPRAZOLE SODIUM 100 ML IVPB SCH (09:37)
[2016-11-05] MEDS: ACLIDINIUM BROMIDE 400 MCG/INH AERO.POWD IH SCH ×2 (09:38→21:53)
[2016-11-05] MEDS: SYSTANE ULTRA EYE DROPS OU SCH ×2 (09:39→21:54)
--- NOTE | 2016-11-05 09:57 | PN ---
Progress Note, Physician History of Present Illness: Pt was transferred back to ICU. Post op day 14 Pt removed NGT. Pt with cough and productive yellow sputum, states that is better this AM Pt without abd pain, N, V. Pt w/o fever, chills. Pt w/o CP, SOB, Palp. Pt was seen in AM - Current Medication List Current Medications: Active Medications Aclidinium [place] (Tudorza -) 1 puff IH BID [facility] Last Admin: 11/05/16 09:38 Dose: 1 puff Albuterol Sulfate (Ventolin 0.083% Nebulizer Soln -) 1 amp NEB Q4H PRN PRN Reason: SHORT OF BREATH/WHEEZING Amlodipine Besylate (Norvasc -) 5 mg PO DAILY [facility] Last Admin: 11/05/16 09:36 Dose: 5 mg Atorvastatin Calcium (Lipitor -) 40 mg PO HS [facility] Last Admin: 11/04/16 21:14 Dose: 40 mg Heparin Sodium (Porcine) (Heparin -) 5,000 unit SQ TID [facility] Last Admin: 11/05/16 06:05 Dose: 5,000 unit Fat Emulsion Intravenous (Intralipid -) 250 mls @ 20.833 mls/hr IV DAILY@2200 [facility] Last Admin: 11/04/16 21:13 Dose: 20.833 mls/hr Pantoprazole Sodium (Protonix 40mg Ivpb (Pre-Docked)) 100 mls @ 200 mls/hr IVPB DAILY [facility] Last Admin: 11/05/16 09:37 Dose: 200 mls/hr Dextrose 100 ml/ Sodium (Chloride 20 meq/ Amino Acids) 1,105 mls @ 92 mls/hr IVPB Q12H [facility] Last Admin: 11/05/16 01:35 Dose: 92 mls/hr Cefazolin Sodium (Ancef 1gm Ivpb (Pre-Docked)) 50 mls @ 100 mls/hr IVPB Q8H-IV [facility] Last Admin: 11/05/16 09:35 Dose: 100 mls/hr Sodium Phosphate 30 mm/ Sodium (Chloride) 260 mls @ 43.333 mls/hr IVPB ONCE ONE Stop: 11/05/16 14:27 Labetalol HCl (Normodyne Injection -) 10 mg IVPUSH Q6H PRN PRN Reason: HYPERTENSION Last Admin: 11/05/16 08:08 Dose: 10 mg Metoclopramide HCl (Reglan Injection -) 10 mg IVPB Q6H-IV [facility] Last Admin: 11/05/16 09:35 Dose: 10 mg Morphine Sulfate (Morphine Injection -) 2 mg IVPUSH Q4H PRN PRN Reason: PAIN LEVEL 1-5 Last Admin: 11/04/16 22:30 Dose: 2 mg Morphine Sulfate (Morphine Injection -) 4 mg IVPUSH Q4H PRN PRN Reason: PAIN LEVEL 6-10 Last Admin: 11/05/16 01:33 Dose: 4 mg Multivitamins/Minerals (Infuvite Adult -) 10 ml IV DAILY [facility] Last Admin: 11/05/16 01:34 Dose: 10 ml Travatan 0.004% Eye (Drops) 1 each OU HS [facility] Last Admin: 11/04/16 21:28 Dose: 1 each Systane Ultra Eye (Drops) 1 each OU BID [facility] Last Admin: 11/05/16 09:39 Dose: 1 each Ondansetron HCl (Zofran Injection) 8 mg IVPB Q6H PRN PRN Reason: NAUSEA AND/OR VOMITING - Objective Vital Signs: Vital Signs Temperature 98.4 F 11/05/16 02:00 Pulse Rate 94 H 11/05/16 08:00 Respiratory Rate 25 H 11/05/16 08:03 Blood Pressure 176/88 11/05/16 08:00 O2 Sat by Pulse Oximetry (%) 94 L 11/05/16 08:03 Constitutional: Yes: No Distress, Calm, Other (Pt looks more awake today) Cardiovascular: Yes: Regular Rate and Rhythm, S1, S2 Respiratory: Yes: Regular, Rhonchi (worse at bases) Gastrointestinal: Yes: Normal Bowel Sounds, Hypoactive Bowel Sounds. No: Tenderness Edema: No Neurological: Yes: Alert, Oriented Labs: CBC, BMP 11/05/16 05:15 11/05/16 05:15 Problem List - Problems (1) Small bowel mass Code(s): K63.89 - OTHER SPECIFIED DISEASES OF INTESTINE (2) SBO (small bowel obstruction) Code(s): K56.69 - OTHER INTESTINAL OBSTRUCTION (3) Pneumatosis intestinalis Code(s): K63.89 - OTHER SPECIFIED DISEASES OF INTESTINE (4) CHF (congestive heart failure) Code(s): I50.9 - HEART FAILURE, UNSPECIFIED (5) CVA (cerebral infarction) Code(s): I63.9 - CEREBRAL INFARCTION, UNSPECIFIED (6) Chronic obstructive pulmonary disease Code(s): J44.9 - CHRONIC OBSTRUCTIVE PULMONARY DISEASE, UNSPECIFIED (7) Hyperlipidemia Code(s): E78.5 - HYPERLIPIDEMIA, UNSPECIFIED (8) Hypokalemia due to inadequate potassium intake Code(s): E87.6 - HYPOKALEMIA (9) Hypophosphatemia Code(s): E83.39 - OTHER DISORDERS OF PHOSPHORUS METABOLISM (10) HTN (hypertension) Code(s): I10 - ESSENTIAL (PRIMARY) HYPERTENSION (11) Hypomagnesemia Code(s): E83.42 - HYPOMAGNESEMIA (12) Bandemia Code(s): D72.825 - BANDEMIA (13) Pneumonia Code(s): J18.9 - PNEUMONIA, UNSPECIFIED ORGANISM (14) Bacteremia Code(s): R78.81 - BACTEREMIA Assessment/Plan GI and surgical f/u appreciated post OP day 12 Pt wants his to make medical decisions if he cannot; both daughter agrees with pt. All family's questions were answered Pt is hemodynamically stable. Pt with poor PO intake; pt with N and V for the last couple of days; NGT was reinserted again; to f/u with Sx. Pt with + BCX, LLL PNA On IV abtx- readjusted per BCX Replace Mg, Ph Labetalol IVP for better BP and HR control AM labs. Prognosis: reserved. Case was d/w pt's nurse. Time spent for managing pt's care: 35 min.
--- NOTE | 2016-11-05 10:32 | PN ---
Progress Note, Physician History of Present Illness: Awake but slightly confused Offers no complaints Afebrile WBC remains elevated - Current Medication List Current Medications: Active Medications Aclidinium [place] (Tudorza -) 1 puff IH BID [facility] Last Admin: 11/05/16 09:38 Dose: 1 puff Albuterol Sulfate (Ventolin 0.083% Nebulizer Soln -) 1 amp NEB Q4H PRN PRN Reason: SHORT OF BREATH/WHEEZING Amlodipine Besylate (Norvasc -) 5 mg PO DAILY [facility] Last Admin: 11/05/16 09:36 Dose: 5 mg Atorvastatin Calcium (Lipitor -) 40 mg PO HS [facility] Last Admin: 11/04/16 21:14 Dose: 40 mg Heparin Sodium (Porcine) (Heparin -) 5,000 unit SQ TID [facility] Last Admin: 11/05/16 06:05 Dose: 5,000 unit Fat Emulsion Intravenous (Intralipid -) 250 mls @ 20.833 mls/hr IV DAILY@2200 [facility] Last Admin: 11/04/16 21:13 Dose: 20.833 mls/hr Pantoprazole Sodium (Protonix 40mg Ivpb (Pre-Docked)) 100 mls @ 200 mls/hr IVPB DAILY [facility] Last Admin: 11/05/16 09:37 Dose: 200 mls/hr Dextrose 100 ml/ Sodium (Chloride 20 meq/ Amino Acids) 1,105 mls @ 92 mls/hr IVPB Q12H [facility] Last Admin: 11/05/16 01:35 Dose: 92 mls/hr Cefazolin Sodium (Ancef 1gm Ivpb (Pre-Docked)) 50 mls @ 100 mls/hr IVPB Q8H-IV [facility] Last Admin: 11/05/16 09:35 Dose: 100 mls/hr Sodium Phosphate 30 mm/ Sodium (Chloride) 260 mls @ 43.333 mls/hr IVPB ONCE ONE Stop: 11/05/16 14:27 Labetalol HCl (Normodyne Injection -) 10 mg IVPUSH Q6H PRN PRN Reason: HYPERTENSION Last Admin: 11/05/16 08:08 Dose: 10 mg Metoclopramide HCl (Reglan Injection -) 10 mg IVPB Q6H-IV [facility] Last Admin: 11/05/16 09:35 Dose: 10 mg Morphine Sulfate (Morphine Injection -) 2 mg IVPUSH Q4H PRN PRN Reason: PAIN LEVEL 1-5 Last Admin: 11/04/16 22:30 Dose: 2 mg Morphine Sulfate (Morphine Injection -) 4 mg IVPUSH Q4H PRN PRN Reason: PAIN LEVEL 6-10 Last Admin: 11/05/16 01:33 Dose: 4 mg Multivitamins/Minerals (Infuvite Adult -) 10 ml IV DAILY [facility] Last Admin: 11/05/16 01:34 Dose: 10 ml Travatan 0.004% Eye (Drops) 1 each OU HS [facility] Last Admin: 11/04/16 21:28 Dose: 1 each Systane Ultra Eye (Drops) 1 each OU BID [facility] Last Admin: 11/05/16 09:39 Dose: 1 each Ondansetron HCl (Zofran Injection) 8 mg IVPB Q6H PRN PRN Reason: NAUSEA AND/OR VOMITING - Objective Vital Signs: Vital Signs Temperature 98.4 F 11/05/16 02:00 Pulse Rate 94 H 11/05/16 08:00 Respiratory Rate 25 H 11/05/16 08:03 Blood Pressure 176/88 11/05/16 08:00 O2 Sat by Pulse Oximetry (%) 94 L 11/05/16 08:03 Constitutional: Yes: No Distress Eyes: Yes: Conjunctiva Clear Cardiovascular: Yes: Regular Rate and Rhythm, S1, S2 Respiratory: Yes: CTA Bilaterally Gastrointestinal: Yes: Normal Bowel Sounds, Soft, Other (Surgical wound with tiffanie in place). No: Tenderness Edema: No Labs: CBC, BMP 11/05/16 05:15 11/05/16 05:15 Assessment/Plan Klebsiella bacteremia S/P exploratory laparotomy/ bowel resection LLL pneumonia Continue cefazolin
[2016-11-05] MEDS ORDERED: FUROSEMIDE 40 MG/4 ML INJECTABLE VIAL IVPUSH ONE (11:30)
--- NOTE | 2016-11-05 11:47 | PN ---
Teaching Attending Note Name of Resident: Lupe Juan ATTENDING PHYSICIAN STATEMENT I saw and evaluated the patient. I reviewed the resident's note and discussed the case with the resident. I agree with the resident's findings and plan as documented. SUBJECTIVE: Pt seen and examined in the ICU. Confused, denies abdominal pain. No fevers or chills. Denies shortness of breath but appears tachypneic. +flatus but without BM. OBJECTIVE: Last Vital Signs Temp Pulse Resp BP Pulse Ox 98.4 F 94 H 25 H 176/88 94 L 11/05/16 02:00 11/05/16 08:00 11/05/16 08:03 11/05/16 08:00 11/05/16 08:03 Intake & Output 11/02/16 11/03/16 11/04/16 11/05/16 23:59 23:59 23:59 23:59 Intake Total 3401 3602 2746 2009 Output Total 2450 2025 2300 600 Balance 951 2075 117 6747 Weight 128 lb 1 oz 130 lb 5 oz 136 lb 14.513 oz Gen: tachypneic at rest Heart: RRR Lung: scattered rhonchi Abd: soft, nontender, incision clean, +BS Ext: no edema CBC, BMP 11/05/16 05:15 11/05/16 05:15 Active Medications Aclidinium [place] (Tudorza -) 1 puff IH BID [facility] Last Admin: 11/05/16 09:38 Dose: 1 puff Albuterol Sulfate (Ventolin 0.083% Nebulizer Soln -) 1 amp NEB Q4H PRN PRN Reason: SHORT OF BREATH/WHEEZING Amlodipine Besylate (Norvasc -) 5 mg PO DAILY [facility] Last Admin: 11/05/16 09:36 Dose: 5 mg Atorvastatin Calcium (Lipitor -) 40 mg PO HS [facility] Last Admin: 11/04/16 21:14 Dose: 40 mg Heparin Sodium (Porcine) (Heparin -) 5,000 unit SQ TID [facility] Last Admin: 11/05/16 06:05 Dose: 5,000 unit Fat Emulsion Intravenous (Intralipid -) 250 mls @ 20.833 mls/hr IV DAILY@2200 [facility] Last Admin: 11/04/16 21:13 Dose: 20.833 mls/hr Pantoprazole Sodium (Protonix 40mg Ivpb (Pre-Docked)) 100 mls @ 200 mls/hr IVPB DAILY [facility] Last Admin: 11/05/16 09:37 Dose: 200 mls/hr Dextrose 100 ml/ Sodium (Chloride 20 meq/ Amino Acids) 1,105 mls @ 92 mls/hr IVPB Q12H [facility] Last Admin: 11/05/16 01:35 Dose: 92 mls/hr Cefazolin Sodium (Ancef 1gm Ivpb (Pre-Docked)) 50 mls @ 100 mls/hr IVPB Q8H-IV [facility] Last Admin: 11/05/16 09:35 Dose: 100 mls/hr Sodium Phosphate 30 mm/ Sodium (Chloride) 260 mls @ 43.333 mls/hr IVPB ONCE ONE Stop: 11/05/16 14:27 Labetalol HCl (Normodyne Injection -) 10 mg IVPUSH Q6H PRN PRN Reason: HYPERTENSION Last Admin: 11/05/16 08:08 Dose: 10 mg Metoclopramide HCl (Reglan Injection -) 10 mg IVPB Q6H-IV [facility] Last Admin: 11/05/16 09:35 Dose: 10 mg Morphine Sulfate (Morphine Injection -) 2 mg IVPUSH Q4H PRN PRN Reason: PAIN LEVEL 1-5 Last Admin: 11/04/16 22:30 Dose: 2 mg Morphine Sulfate (Morphine Injection -) 4 mg IVPUSH Q4H PRN PRN Reason: PAIN LEVEL 6-10 Last Admin: 11/05/16 01:33 Dose: 4 mg Multivitamins/Minerals (Infuvite Adult -) 10 ml IV DAILY [facility] Last Admin: 11/05/16 01:34 Dose: 10 ml Travatan 0.004% Eye (Drops) 1 each OU HS [facility] Last Admin: 11/04/16 21:28 Dose: 1 each Systane Ultra Eye (Drops) 1 each OU BID [facility] Last Admin: 11/05/16 09:39 Dose: 1 each Ondansetron HCl (Zofran Injection) 8 mg IVPB Q6H PRN PRN Reason: NAUSEA AND/OR VOMITING ASSESSMENT AND PLAN: Pneumoatosis Intestinalis/Small Bowel Obstruction s/p ex-lap/SB resection COPD HTN Hyperlipidemia CHF h/o CVA - continue clinimix - replete lytes - lasix today - may need PICC line if requiring jail parenteral nutrition - antibiotics per ID - pain control - incentive spirometry - await return of bowel function - O2 to keep SpO2 >90% - DVT prophylaxis - OOB to chair - can monitor on floor critical care time spent in reviewing chart, evaluating patient and formulating plan 35 min
--- NOTE | 2016-11-05 14:01 | PN ---
Physical Exam: SUBJECTIVE: Patient seen and examined. Denies pain. intermittent cough with thick white phlegm. says there are girls on the roof outside his window. OBJECTIVE: Vital Signs Period Temp Pulse Resp BP Sys/Hernandez Pulse Ox Last 24 Hr 98.4 F-98.8 F 81-107 14-25 147-176/70-92 94-94 GENERAL: awake, alert, in wrist restraints, EYES: perrla,eomi, sclera anicteric, conjunctiva clear. EARS, NOSE, THROAT: oropharynx clear without exudates/lesions/erythema. dry mucous membranes. thick white nonbloody phlegm LUNGS: few crackles in right lower base, clear on left, no wheezing. No accessory muscle use. HEART: Regular rhythm and rate, normal S1 and S2 without murmur, rub or gallop. ABDOMEN: soft, nontenderness, no progression of ecchymosis sites located midquadrant right and left next to but not inclusive of insicion line, nondistended, normoactive bowel sounds on all quadrants, no guarding, no rebound , no masses. mildline incision with tiffanie in place without erythema/discharge UPPER EXTREMITIES: 2+ radial, pulses, cool hands, well-perfused. + clubbing. nonpitting edema in b/l hands from dorsum of hand to shoulder - worse since yesterday, now with 1x1 mm - 2x2mm serous fluid filled vesicles on right arm LOWER EXTREMITIES: 2+ dorsalis pulses, warm, well-perfused. No calf tenderness. No peripheral edema. NEUROLOGICAL:oriented to person, not place/date/situation. Laboratory Results - last 24 hr 11/04/16 11/05/16 11/05/16 05:19 05:15 05:15 WBC 15.9 H RBC 4.16 Hgb 11.6 L Hct 34.8 L MCV 83.6 MCHC 33.4 RDW 14.1 Plt Count 283 MPV 8.8 Neutrophils % 81.7 Lymphocytes % 7.4 L D Monocytes % 9.7 D Eosinophils % 1.1 Basophils % 0.1 D Sodium 136 Potassium 4.0 Chloride 100 Carbon Dioxide 28 Anion Gap 8 BUN 14 Creatinine 0.5 L POC Glucometer Random Glucose 168 H Calcium 7.9 L Phosphorus 1.8 L Magnesium 1.8 Free T3 2.0 11/05/16 11:30 WBC RBC Hgb Hct MCV MCHC RDW Plt Count MPV Neutrophils % Lymphocytes % Monocytes % Eosinophils % Basophils % Sodium Potassium Chloride Carbon Dioxide Anion Gap BUN Creatinine POC Glucometer 158.06527 Random Glucose Calcium Phosphorus Magnesium Free T3 Active Medications Generic Name Dose Route Start Last Admin Trade Name Freq PRN Reason Stop Dose Admin Aclidinium [place] 1 puff 10/30/16 22:00 11/05/16 09:38 Tudorza - IH 1 puff BID [facility] Administration Albuterol Sulfate 1 amp 10/30/16 14:35 Ventolin 0.083% Nebulizer Soln - NEB Q4H PRN SHORT OF BREATH/WHEEZING Amlodipine Besylate 5 mg 11/04/16 10:00 11/05/16 09:36 Norvasc - PO 5 mg DAILY [facility] Administration Atorvastatin Calcium 40 mg 10/30/16 22:00 11/04/16 21:14 Lipitor - PO 40 mg HS [facility] Administration Heparin Sodium (Porcine) 5,000 unit 10/30/16 22:00 11/05/16 06:05 Heparin - SQ 5,000 unit TID [facility] Administration Fat Emulsion Intravenous 250 mls @ 20.833 mls/hr 10/30/16 22:00 11/04/16 21:13 Intralipid - IV 20.833 mls/hr DAILY@2200 [facility] Administration Pantoprazole Sodium 100 mls @ 200 mls/hr 10/31/16 10:00 11/05/16 09:37 Protonix 40mg Ivpb (Pre-Docked) IVPB 200 mls/hr DAILY [facility] Administration Dextrose 100 ml/ Sodium 1,105 mls @ 92 mls/hr 11/02/16 12:00 11/05/16 01:35 Chloride 20 meq/ Amino Acids IVPB 92 mls/hr Q12H [facility] Administration Cefazolin Sodium 50 mls @ 100 mls/hr 11/03/16 18:00 11/05/16 09:35 Ancef 1gm Ivpb (Pre-Docked) IVPB 100 mls/hr Q8H-IV [facility] Administration Sodium Phosphate 30 mm/ Sodium 260 mls @ 43.333 mls/hr 11/05/16 08:28 Chloride IVPB 11/05/16 14:27 ONCE ONE Labetalol HCl 10 mg 11/05/16 12:00 Normodyne Injection - IVPUSH Q6H-IV [facility] Metoclopramide HCl 10 mg 10/30/16 15:45 11/05/16 09:35 Reglan Injection - IVPB 10 mg Q6H-IV [facility] Administration Morphine Sulfate 2 mg 10/31/16 20:19 11/04/16 22:30 Morphine Injection - IVPUSH 2 mg Q4H PRN Administration PAIN LEVEL 1-5 Morphine Sulfate 4 mg 10/31/16 20:21 11/05/16 01:33 Morphine Injection - IVPUSH 4 mg Q4H PRN Administration PAIN LEVEL 6-10 Multivitamins/Minerals 10 ml 10/31/16 10:00 11/05/16 01:34 Infuvite Adult - IV 10 ml DAILY [facility] Administration Travatan 0.004% Eye 1 each 10/30/16 22:00 11/04/16 21:28 Drops OU 1 each HS [facility] Administration Systane Ultra Eye 1 each 10/30/16 22:00 11/05/16 09:39 Drops OU 1 each BID [facility] Administration Ondansetron HCl 8 mg 10/30/16 14:35 Zofran Injection IVPB Q6H PRN NAUSEA AND/OR VOMITING ASSESSMENT/PLAN: 81 yr old man with HTN, HLD, hx of CVA, TIA with recent small bowel obstruction/ abdominal mass removal having several days of nausea and emesis transferred to the ICU due to respiratory distress. vieyra in place for urinary retention Pulmonary respiratory distress likely due to abdominal distention caused by ileus - improving nasal cannula 2.5L = saturation 91%, attempt to titrate to maintain sat >92% inhalers prn, incentive spirometer, will add chest PT to assist with bring up the phlegm chest xray appears that pt is fluid overloaded, likely from the clinimix since patient is not getting any other IVF, will duierese today with lasix GI POD #15(10/21) of small bowel obstruction/mass - mass pathology was non- malignant. clinimix IV with lipids until patient starts to take po - monitor glucose with BGMs ACHS NPO except for meds until bowel movement continue clinimex, to discuss PICC line if blood cultures are negative tomorrow consult: Dr. goyal Cardiovascular HTN - uncontrolled - changed to labetatol 10mg q6hr scheduled if SBP>150, diastolic>100 - amlodipine 5mg po CAD - hold lipitor and plavix Infectious Disease blood cx positive with Klebsiella, likely lll pna cefazolin 1gm q8hr - day 4 consult: dr. Bernal Hematological leucocytosis - improving Neurological confused, continue to orient. wrist restraints for safety. DVT: heparin TID, oob when able Diet: clinimix with repletion Visit type - Emergency Visit Emergency Visit: No - New Patient This patient is new to me today: No - Critical Care Critical Care patient: Yes Total Critical Care Time (in minutes): 37 Critical Care Statement: The care of this patient involved high complexity decision making to prevent further life threatening deterioration of the patient 's condition and/or to evalute & treat vital organ system(s) failure or risk of failure.
[2016-11-05] MEDS: LABETALOL HCL 5 MG/1 ML (100MG/20 ML VIAL) IVPUSH SCH ×3 (15:39→21:43)
--- NOTE | 2016-11-05 16:08 | PN ---
Progress Note (short form) - Note Progress Note: surgery surgery pt seen and examined. awake. no pain. no nausea. no bm. iv infiltrated and is removed. afebrile, abd- soft, nt, nd, incision clean, tiffanie removed a/p Pod#14- disfunctional distal small bowel from now removed chronic stricture>> then mechanical sbo. maintain npo except meds. nutrition note updated to reflect 25 nancy/kg and adequate protein. This should be sufficient. leukocytosis improving. klebsiella in blood. pnemonia on cxr. abx per id. not abdominal source can resume anticoagulation and plavix if inidicated. suspect gut dysfunction will improve with time and treatment of pneumonia. needs iv access.
[2016-11-05] MEDS ORDERED: LIDOCAINE HCL 1%, 10 MG/ML (20ML VIAL) ONE (20:31)
--- NOTE | 2016-11-05 20:45 | PROC ---
Central Line Insertion Indication: Poor Venous Access Risks and Benefits Explained: Yes Consent on Chart: Yes Central Line: Triple Lumen Catheter Anesthesia: 1% Lidocaine Sterile Technique: Yes Ultrasound Guided Assistance: No Position: Right Subclavian Post Insertion: Yes: Bilateral Breath Sounds, Chest X-Ray Ordered Sterile Dressing Applied: Yes
[2016-11-05] MEDS: FAT EMULSIONS 250 ML IV SCH (21:25)
[2016-11-05] MEDS: ATORVASTATIN CA 40 MG TABLET (FP) PO SCH (21:26)
[2016-11-05] MEDS: EYE OU SCH (21:54)
[2016-11-05] MEDS: TRAVATAN 0.004% OU SCH (21:54)
--- NOTE | 2016-11-05 22:25 | PN ---
Progress Note, Physician Chief Complaint: Pt is confused; denies chest pain or dyspnea. History of Present Illness: 81-year-old black male with no history of abdominal surgery presents to the emergency department complaining of periumbilical 6/10 sharp nonradiating intermittent discomfort with nausea no vomiting, fever, chills, chest pain, shortness of breath, flank pains, urinary symptoms. There are no alleviating or exacerbating factors. Last bowel movement 4 days ago. - Current Medication List Current Medications: Active Medications Aclidinium [place] (Tudorza -) 1 puff IH BID [facility] Last Admin: 11/05/16 21:53 Dose: 1 puff Albuterol Sulfate (Ventolin 0.083% Nebulizer Soln -) 1 amp NEB Q4H PRN PRN Reason: SHORT OF BREATH/WHEEZING Amlodipine Besylate (Norvasc -) 5 mg PO DAILY [facility] Last Admin: 11/05/16 09:36 Dose: 5 mg Atorvastatin Calcium (Lipitor -) 40 mg PO HS [facility] Last Admin: 11/05/16 21:26 Dose: Not Given Heparin Sodium (Porcine) (Heparin -) 5,000 unit SQ TID [facility] Last Admin: 11/05/16 21:51 Dose: 5,000 unit Fat Emulsion Intravenous (Intralipid -) 250 mls @ 20.833 mls/hr IV DAILY@2200 [facility] Last Admin: 11/05/16 21:25 Dose: 20.833 mls/hr Pantoprazole Sodium (Protonix 40mg Ivpb (Pre-Docked)) 100 mls @ 200 mls/hr IVPB DAILY [facility] Last Admin: 11/05/16 09:37 Dose: 200 mls/hr Dextrose 100 ml/ Sodium (Chloride 20 meq/ Amino Acids) 1,105 mls @ 92 mls/hr IVPB Q12H [facility] Last Admin: 11/05/16 21:24 Dose: 92 mls/hr Cefazolin Sodium (Ancef 1gm Ivpb (Pre-Docked)) 50 mls @ 100 mls/hr IVPB Q8H-IV [facility] Last Admin: 11/05/16 18:04 Dose: Not Given Labetalol HCl (Normodyne Injection -) 10 mg IVPUSH Q6H-IV [facility] Last Admin: 11/05/16 21:43 Dose: Not Given Metoclopramide HCl (Reglan Injection -) 10 mg IVPB Q6H-IV [facility] Last Admin: 11/05/16 21:43 Dose: 10 mg Morphine Sulfate (Morphine Injection -) 2 mg IVPUSH Q4H PRN PRN Reason: PAIN LEVEL 1-5 Last Admin: 11/04/16 22:30 Dose: 2 mg Morphine Sulfate (Morphine Injection -) 4 mg IVPUSH Q4H PRN PRN Reason: PAIN LEVEL 6-10 Last Admin: 11/05/16 01:33 Dose: 4 mg Multivitamins/Minerals (Infuvite Adult -) 10 ml IV DAILY [facility] Last Admin: 11/05/16 21:31 Dose: 10 ml Travatan 0.004% Eye (Drops) 1 each OU HS [facility] Last Admin: 11/05/16 21:54 Dose: 1 each Systane Ultra Eye (Drops) 1 each OU BID [facility] Last Admin: 11/05/16 21:54 Dose: 1 each Ondansetron HCl (Zofran Injection) 8 mg IVPB Q6H PRN PRN Reason: NAUSEA AND/OR VOMITING - Objective Vital Signs: Vital Signs Temperature 98.8 F 11/05/16 14:00 Pulse Rate 90 11/05/16 14:00 Respiratory Rate 25 H 11/05/16 14:00 Blood Pressure 148/81 11/05/16 14:00 O2 Sat by Pulse Oximetry (%) 94 L 11/05/16 08:03 Constitutional: Yes: Calm Eyes: Yes: WNL HENT: Yes: WNL Neck: Yes: WNL Cardiovascular: Yes: S1, S2, S4 Gastrointestinal: Yes: Soft. No: Tenderness ...Rectal Exam: Yes: Deferred Genitourinary: No: Anuria Musculoskeletal: Yes: Muscle Weakness Extremities: Yes: Cool Edema: No Peripheral Pulses WNL: No Peripheral Pulses: Left Doralis Pedis: 1+, Right Dorsalis Pedis: 1+ Integumentary: Yes: Incision Wound/Incision: Yes: Well Approximated Psychiatric: Yes: Other Labs: CBC, BMP 11/05/16 05:15 11/05/16 05:15 Abnormal Lab Results 11/05/16 11/05/16 05:15 05:15 WBC 15.9 H Hgb 11.6 L Hct 34.8 L Lymphocytes % 7.4 L D Creatinine 0.5 L Random Glucose 168 H Calcium 7.9 L Phosphorus 1.8 L - ....Imaging Other: Image Reviewed (telemetry: NSR) Problem List - Problems (1) Diastolic CHF Assessment/Plan: continue present medications (increase amlodipine to 10 mg daily for HTN; metoprolol changed to labetolol due to HTN; would change back to metoprolol once BP controlled due to PSVT). Increase amlodipine; f/u BP. See "HTN". F/u Is and Os, daily weight, BUN/Cr, electrolytes. Physical rehabilitation. Code(s): I50.30 - UNSPECIFIED DIASTOLIC (CONGESTIVE) HEART FAILURE (2) Hyperlipidemia Assessment/Plan: On atorvastatin; keep LDL cholesterol < 70 mg/dL. Code(s): E78.5 - HYPERLIPIDEMIA, UNSPECIFIED (3) PSVT (paroxysmal supraventricular tachycardia) Code(s): I47.1 - SUPRAVENTRICULAR TACHYCARDIA (4) SBO (small bowel obstruction) Assessment/Plan: f/u with surgeon (returned to ICU; NGT reinserted). Code(s): K56.69 - OTHER INTESTINAL OBSTRUCTION (5) Small bowel mass Code(s): K63.89 - OTHER SPECIFIED DISEASES OF INTESTINE (6) HTN (hypertension) Assessment/Plan: Now again on labetolol. On amlodipine; increased to 5 mg daily, and would now increase to 10 mg daily. Consider adding ACEI, ARB (hypokalemic), if diuretic added, guard against further electrolyte depletion. Serial BP and HR checks. Code(s): I10 - ESSENTIAL (PRIMARY) HYPERTENSION (7) Weakness Code(s): R53.1 - WEAKNESS (8) Hypothyroid Assessment/Plan: decreased TSH; f/u free T3 and free T4. Code(s): E03.9 - HYPOTHYROIDISM, UNSPECIFIED (9) Confusion Assessment/Plan: head CT: no acute pathology. more alert. F/u with neurologist. Code(s): R41.0 - DISORIENTATION, UNSPECIFIED (10) Hypokalemia Assessment/Plan: Keep K+ 4-4.5 (hx PSVT). Keep Mg 2-2.3 Keep Po4 2.5-3.5. Consider adding ACEI or ARB for BP; may increase K. Code(s): E87.6 - HYPOKALEMIA Assessment/Plan cc time spent reviewing chart, examining pt, and writing note: 30 minutes.
[2016-11-06] MEDS: CEFAZOLIN (PRE-DOCKED) 50 ML IVPB SCH ×3 (01:38→18:03)
[2016-11-06] MEDS: METOCLOPRAMIDE HCL INJECTION 10 MG/2 ML VIAL IVPB SCH ×4 (02:08→21:35)
[2016-11-06] MEDS: LABETALOL HCL 5 MG/1 ML (100MG/20 ML VIAL) IVPUSH SCH ×4 (02:08→21:19)
[2016-11-06] MEDS: morphine CARPU-JECT 2 MG/1 ML DISP.SYRIN IVPUSH PRN (02:13)
[2016-11-06] MEDS: HEPARIN NA (PORCINE) 5,000 UNITS/ML 1ML VIAL SQ SCH ×3 (05:44→21:35)
[2016-11-06 06:38] LABS: MCH 27.7 pg (25.7-33.7); MEAN PLT VOLUME 8.5 fl (7.5-11.1); PLATELET COUNT 279 K/MM3 (134-434); RDW 14.1 % (11.9-15.9); WHITE BLOOD COUNT 13.1 K/mm3 (4.0-10.0)
[2016-11-06 06:54] LABS: ALBUMIN 1.6 g/dl (3.4-5.0); ANION GAP 9 (8-16); CO2 31 mmol/L (21-32); CREATININE 0.5 mg/dL (0.7-1.3); GLUCOSE,RANDOM 196 mg/dL (74-106); PHOSPHOROUS 2.3 mg/dL (2.5-4.9); SGOT/AST 72 U/L (15-37); SGPT/ALT 75 U/L (12-78)
[2016-11-06 06:56] LABS: ALK PHOS 131 U/L (45-117); BILIRUBIN,TOTAL 0.6 mg/dL (0.2-1.0); TOT PROT 4.8 g/dl (6.4-8.2)
--- NOTE | 2016-11-06 07:37 | PN ---
Progress Note, Physician Chief Complaint: ID Cefazolin Klebs bactremia He took out NGT still NPO Staple removed - Current Medication List Current Medications: Active Medications Aclidinium [place] (Tudorza -) 1 puff IH BID [facility] Last Admin: 11/05/16 21:53 Dose: 1 puff Albuterol Sulfate (Ventolin 0.083% Nebulizer Soln -) 1 amp NEB Q4H PRN PRN Reason: SHORT OF BREATH/WHEEZING Amlodipine Besylate (Norvasc -) 5 mg PO DAILY [facility] Last Admin: 11/05/16 09:36 Dose: 5 mg Atorvastatin Calcium (Lipitor -) 40 mg PO HS [facility] Last Admin: 11/05/16 21:26 Dose: Not Given Heparin Sodium (Porcine) (Heparin -) 5,000 unit SQ TID [facility] Last Admin: 11/06/16 05:44 Dose: 5,000 unit Fat Emulsion Intravenous (Intralipid -) 250 mls @ 20.833 mls/hr IV DAILY@2200 [facility] Last Admin: 11/05/16 21:25 Dose: 20.833 mls/hr Pantoprazole Sodium (Protonix 40mg Ivpb (Pre-Docked)) 100 mls @ 200 mls/hr IVPB DAILY [facility] Last Admin: 11/05/16 09:37 Dose: 200 mls/hr Dextrose 100 ml/ Sodium (Chloride 20 meq/ Amino Acids) 1,105 mls @ 92 mls/hr IVPB Q12H [facility] Last Admin: 11/05/16 23:44 Dose: Not Given Cefazolin Sodium (Ancef 1gm Ivpb (Pre-Docked)) 50 mls @ 100 mls/hr IVPB Q8H-IV [facility] Last Admin: 11/06/16 01:38 Dose: 100 mls/hr Labetalol HCl (Normodyne Injection -) 10 mg IVPUSH Q6H-IV [facility] Last Admin: 11/06/16 02:08 Dose: Not Given Metoclopramide HCl (Reglan Injection -) 10 mg IVPB Q6H-IV [facility] Last Admin: 11/06/16 02:08 Dose: 10 mg Morphine Sulfate (Morphine Injection -) 2 mg IVPUSH Q4H PRN PRN Reason: PAIN LEVEL 1-5 Last Admin: 11/06/16 02:13 Dose: 2 mg Morphine Sulfate (Morphine Injection -) 4 mg IVPUSH Q4H PRN PRN Reason: PAIN LEVEL 6-10 Last Admin: 11/05/16 22:51 Dose: 4 mg Multivitamins/Minerals (Infuvite Adult -) 10 ml IV DAILY [facility] Last Admin: 11/05/16 21:31 Dose: 10 ml Travatan 0.004% Eye (Drops) 1 each OU HS [facility] Last Admin: 11/05/16 21:54 Dose: 1 each Systane Ultra Eye (Drops) 1 each OU BID [facility] Last Admin: 11/05/16 21:54 Dose: 1 each Ondansetron HCl (Zofran Injection) 8 mg IVPB Q6H PRN PRN Reason: NAUSEA AND/OR VOMITING - Objective Vital Signs: Vital Signs Temperature 98.4 F 11/06/16 05:48 Pulse Rate 87 11/06/16 07:00 Respiratory Rate 12 11/06/16 07:00 Blood Pressure 148/74 11/06/16 07:00 O2 Sat by Pulse Oximetry (%) 94 L 11/05/16 21:00 Constitutional: Yes: No Distress Cardiovascular: Yes: S1, S2 Respiratory: Yes: WNL, Regular, CTA Bilaterally Gastrointestinal: Yes: Soft. No: Distention Edema: No Labs: CBC, BMP 11/06/16 05:30 11/06/16 05:30 Assessment/Plan Microbiology 11/02/16 02:00 Sputum - Expectorated Gram Stain - Final 11/02/16 02:00 Sputum - Expectorated Sputum Culture - Final NORMAL RESPIRATORY CONG 11/01/16 12:15 Blood - Peripheral Venous Blood Culture - Final Klebsiella Pneumoniae 11/04/16 16:20 Blood - Peripheral Venous Blood Culture - Preliminary NO GROWTH OBTAINED AFTER 24 HOURS, INCUBATION TO CONTINUE FOR 4 DAYS. 11/04/16 16:15 Blood - Peripheral Venous Blood Culture - Preliminary NO GROWTH OBTAINED AFTER 24 HOURS, INCUBATION TO CONTINUE FOR 4 DAYS. Laboratory Tests 11/06/16 11/06/16 05:30 05:30 WBC 13.1 H Hct 35.1 L Plt Count 279 Creatinine 0.5 L Creat Clearance w eGFR > 60 Assessment 10/21 surgery for small bowel obstruction Since then developed Klebsiella bacteremia on Cefazolin Day 5 treatment Infiltrate Plan To continue current therapy as ordered to complete treatment 10-14 days Alexandru MARRERO
[2016-11-06] MEDS ORDERED: POTASSIUM PHOSPHATE 20 MM in SODIUM CHLORIDE 250 ML IVPB ONE (09:15)
[2016-11-06] MEDS: SODIUM CHLORIDE IVPB SCH ×3 (10:00→16:19)
[2016-11-06] MEDS: [UNRECOGNIZED DRUG - OTHER] IVPB SCH ×2 (10:00→16:17)
[2016-11-06] MEDS: MULTIVIT INJ. ADULT COMBO WITH VIT K 1 COMBO 10 ML VIAL IV SCH (10:00)
[2016-11-06] MEDS: DEXTROSE IVPB SCH ×2 (10:00→16:17)
[2016-11-06] MEDS: PANTOPRAZOLE SODIUM 100 ML IVPB SCH (10:00)
[2016-11-06] MEDS: WATER IVPB SCH ×2 (10:00→16:17)
[2016-11-06] MEDS: SYSTANE ULTRA EYE DROPS OU SCH ×2 (10:00→21:37)
[2016-11-06] MEDS: ACLIDINIUM BROMIDE 400 MCG/INH AERO.POWD IH SCH ×2 (10:00→21:37)
[2016-11-06] MEDS ORDERED: DEXTROSE IVPB ONE (10:34)
[2016-11-06] MEDS ORDERED: NITROGLYCERIN IVPB ONE (10:34)
[2016-11-06] MEDS: amLODIPine BESYLATE 5 MG TABLET (FP) PO SCH (11:06)
--- NOTE | 2016-11-06 11:50 | PN ---
Teaching Attending Note Name of Resident: Lupe Juan ATTENDING PHYSICIAN STATEMENT I saw and evaluated the patient. I reviewed the resident's note and discussed the case with the resident. I agree with the resident's findings and plan as documented. SUBJECTIVE: Patient seen and examined in the ICU. Awake and alert, mildly confused. Denies abdominal pain. Denies shortness of breath but is mildly tachypneic at rest. No BM or flatus. OBJECTIVE: Intake & Output 11/03/16 11/04/16 11/05/16 11/06/16 23:59 23:59 23:59 23:59 Intake Total 3602 2746 2959 1370 Output Total 2025 2300 3400 500 Balance 1577 446 -441 870 Weight 130 lb 5 oz 136 lb 14.513 oz Last Vital Signs Temp Pulse Resp BP Pulse Ox 98.4 F 89 25 H 158/77 94 L 11/06/16 05:48 11/06/16 10:00 11/06/16 10:00 11/06/16 10:00 11/05/16 21:00 Active Medications Aclidinium [place] (Tudorza -) 1 puff IH BID [facility] Last Admin: 11/06/16 10:00 Dose: 1 puff Albuterol Sulfate (Ventolin 0.083% Nebulizer Soln -) 1 amp NEB Q4H PRN PRN Reason: SHORT OF BREATH/WHEEZING Amlodipine Besylate (Norvasc -) 5 mg PO DAILY [facility] Last Admin: 11/06/16 11:06 Dose: 5 mg Atorvastatin Calcium (Lipitor -) 40 mg PO HS [facility] Last Admin: 11/05/16 21:26 Dose: Not Given Heparin Sodium (Porcine) (Heparin -) 5,000 unit SQ TID [facility] Last Admin: 11/06/16 05:44 Dose: 5,000 unit Fat Emulsion Intravenous (Intralipid -) 250 mls @ 20.833 mls/hr IV DAILY@2200 [facility] Last Admin: 11/05/16 21:25 Dose: 20.833 mls/hr Pantoprazole Sodium (Protonix 40mg Ivpb (Pre-Docked)) 100 mls @ 200 mls/hr IVPB DAILY [facility] Last Admin: 11/06/16 10:00 Dose: 200 mls/hr Dextrose 100 ml/ Sodium (Chloride 20 meq/ Amino Acids) 1,105 mls @ 92 mls/hr IVPB Q12H [facility] Last Admin: 11/06/16 10:00 Dose: 92 mls/hr Cefazolin Sodium (Ancef 1gm Ivpb (Pre-Docked)) 50 mls @ 100 mls/hr IVPB Q8H-IV [facility] Last Admin: 11/06/16 11:00 Dose: 100 mls/hr Potassium Phosphate 20 mm/ (Sodium Chloride) 256.6667 mls @ 62.5 mls/hr IVPB ONCE ONE Stop: 11/06/16 13:21 Last Admin: 11/06/16 11:05 Dose: 62.5 mls/hr Labetalol HCl (Normodyne Injection -) 10 mg IVPUSH Q6H-IV [facility] Last Admin: 11/06/16 11:09 Dose: Not Given Metoclopramide HCl (Reglan Injection -) 10 mg IVPB Q6H-IV [facility] Last Admin: 11/06/16 09:30 Dose: 10 mg Morphine Sulfate (Morphine Injection -) 2 mg IVPUSH Q4H PRN PRN Reason: PAIN LEVEL 1-5 Last Admin: 11/06/16 02:13 Dose: 2 mg Morphine Sulfate (Morphine Injection -) 4 mg IVPUSH Q4H PRN PRN Reason: PAIN LEVEL 6-10 Last Admin: 11/05/16 22:51 Dose: 4 mg Multivitamins/Minerals (Infuvite Adult -) 10 ml IV DAILY [facility] Last Admin: 11/06/16 10:00 Dose: 10 ml Travatan 0.004% Eye (Drops) 1 each OU HS [facility] Last Admin: 11/05/16 21:54 Dose: 1 each Systane Ultra Eye (Drops) 1 each OU BID [facility] Last Admin: 11/06/16 10:00 Dose: 1 each Ondansetron HCl (Zofran Injection) 8 mg IVPB Q6H PRN PRN Reason: NAUSEA AND/OR VOMITING Gen: Awake and alert, Mildly tachypneic at rest Heart: RRR Lung: scattered rhonchi Abd: soft, nontender, incision clean, +BS Ext: no edema Laboratory Results - last 24 hr 11/05/16 11/06/16 11/06/16 17:46 05:30 05:30 WBC 13.1 H RBC 4.18 Hgb 11.6 L Hct 35.1 L MCV 84.0 MCHC 33.0 RDW 14.1 Plt Count 279 MPV 8.5 Sodium 135 L Potassium 3.4 L Chloride 95 L Carbon Dioxide 31 Anion Gap 9 BUN 15 Creatinine 0.5 L Creat Clearance w eGFR > 60 POC Glucometer 120.65796 Random Glucose 196 H Calcium 8.0 L Phosphorus 2.3 L D Magnesium 2.0 Total Bilirubin 0.6 D AST 72 H D ALT 75 D Alkaline Phosphatase 131 H Total Protein 4.8 L Albumin 1.6 L ASSESSMENT AND PLAN: Pneumoatosis Intestinalis/Small Bowel Obstruction s/p ex-lap/SB resection COPD HTN Hyperlipidemia CHF h/o CVA - Change to TPN - Replete lytes - Daily assessment for Lasix - ABX per ID - pain control - incentive spirometry - Await return of bowel function - O2 to keep SpO2 >90% - DVT prophylaxis - OOB to chair - 4W/4S monitoring Dr Dominguez Critical care time spent in reviewing chart, evaluating patient and formulating plan 35 min OBJECTIVE: ASSESSMENT AND PLAN:
[2016-11-06] MEDS ORDERED: PICC LINE 8 ML FLUSH PROTOCOL IVPUSH PRN (13:50)
--- NOTE | 2016-11-06 14:48 | PN ---
Physical Exam: SUBJECTIVE: Patient seen and examined. says there are girls on the roof outside. mild intermitting cough continues. asking for his He denies any pain during interview. daughter would like to initiate discussed about GOC and palliative goals for her father, is not ready for that conversation. at this time, patient is to remain a full code but family does not want further surgical interventions He has been receiving morphine, on discussion with nursing, pt often is crying and holding his abdomen. OBJECTIVE: Vital Signs Period Temp Pulse Resp BP Sys/Hernandez Pulse Ox Last 24 Hr 98.1 F-98.7 F 83-96 12-25 120-158/60-82 94-94 GENERAL: awake, alert, in wrist restraints, EYES: perrla,eomi, sclera anicteric, conjunctiva clear. EARS, NOSE, THROAT: oropharynx clear without exudates/lesions/erythema. dry mucous membranes. thick white nonbloody phlegm LUNGS: No accessory muscle use. basilar crackles, diffuse rhonchi. HEART: Regular rhythm and rate, normal S1 and S2 without murmur, rub or gallop. ABDOMEN: soft, nontender to light palpation, no progression of ecchymosis sites located midquadrant right and left next to but not inclusive of insicion line, nondistended, normoactive bowel sounds on all quadrants, no guarding, no rebound, no masses. mildline incision with tiffanie in place without erythema/ discharge UPPER EXTREMITIES: 2+ radial, pulses, cool hands, well-perfused. + clubbing. nonpitting edema in b/l hands from dorsum of hand to shoulder - worse since yesterday, now with 1x1 mm - 2x2mm serous fluid filled vesicles on right arm, iv removed. right edema arm worse than left. LOWER EXTREMITIES: 2+ dorsalis pulses, warm, well-perfused. No calf tenderness. No peripheral edema. Laboratory Results - last 24 hr 11/04/16 11/04/16 11/05/16 14:19 16:55 17:46 WBC RBC Hgb Hct MCV MCHC RDW Plt Count MPV Sodium Potassium Chloride Carbon Dioxide Anion Gap BUN Creatinine Creat Clearance w eGFR POC Glucometer 225.45660 201.20250 120.70715 Random Glucose Calcium Phosphorus Magnesium Total Bilirubin AST ALT Alkaline Phosphatase Total Protein Albumin 11/06/16 11/06/16 05:30 05:30 WBC 13.1 H RBC 4.18 Hgb 11.6 L Hct 35.1 L MCV 84.0 MCHC 33.0 RDW 14.1 Plt Count 279 MPV 8.5 Sodium 135 L Potassium 3.4 L Chloride 95 L Carbon Dioxide 31 Anion Gap 9 BUN 15 Creatinine 0.5 L Creat Clearance w eGFR > 60 POC Glucometer Random Glucose 196 H Calcium 8.0 L Phosphorus 2.3 L D Magnesium 2.0 Total Bilirubin 0.6 D AST 72 H D ALT 75 D Alkaline Phosphatase 131 H Total Protein 4.8 L Albumin 1.6 L Active Medications Generic Name Dose Route Start Last Admin Trade Name Freq PRN Reason Stop Dose Admin Aclidinium [place] 1 puff 10/30/16 22:00 11/06/16 10:00 Tudorza - IH 1 puff BID [facility] Administration Albuterol Sulfate 1 amp 10/30/16 14:35 Ventolin 0.083% Nebulizer Soln - NEB Q4H PRN SHORT OF BREATH/WHEEZING Amlodipine Besylate 5 mg 11/04/16 10:00 11/06/16 11:06 Norvasc - PO 5 mg DAILY [facility] Administration Atorvastatin Calcium 40 mg 10/30/16 22:00 11/05/16 21:26 Lipitor - PO Not Given HS [facility] Heparin Sodium (Porcine) 5,000 unit 10/30/16 22:00 11/06/16 05:44 Heparin - SQ 5,000 unit TID [facility] Administration IV Flush 8 ml 11/06/16 13:50 Picc Line Flush IVPUSH PRN PRN Protocol Fat Emulsion Intravenous 250 mls @ 20.833 mls/hr 10/30/16 22:00 11/05/16 21:25 Intralipid - IV 20.833 mls/hr DAILY@2200 [facility] Administration Pantoprazole Sodium 100 mls @ 200 mls/hr 10/31/16 10:00 11/06/16 10:00 Protonix 40mg Ivpb (Pre-Docked) IVPB 200 mls/hr DAILY [facility] Administration Cefazolin Sodium 50 mls @ 100 mls/hr 11/03/16 18:00 11/06/16 11:00 Ancef 1gm Ivpb (Pre-Docked) IVPB 100 mls/hr Q8H-IV [facility] Administration Potassium Chloride 40 meq/ 1,500 mls @ 62.5 mls/hr 11/06/16 16:00 Potassium Phosphate 30 mm/ IVPB Sodium Chloride 50 meq/ DAILY@1600 [facility] Magnesium Sulfate 1.97 gm/ Folic Acid 1 mg/ Thiamine HCl 100 mg/ Multivitamins/Minerals 10 ml/ Chromium/Copper/ Manganese/Seleni/Zn 1 ml/ Sterile Water/ Amino Acids/ Dextrose Labetalol HCl 10 mg 11/05/16 12:00 11/06/16 11:09 Normodyne Injection - IVPUSH Not Given Q6H-IV [facility] Metoclopramide HCl 10 mg 10/30/16 15:45 11/06/16 09:30 Reglan Injection - IVPB 10 mg Q6H-IV [facility] Administration Morphine Sulfate 2 mg 10/31/16 20:19 11/06/16 02:13 Morphine Injection - IVPUSH 2 mg Q4H PRN Administration PAIN LEVEL 1-5 Morphine Sulfate 4 mg 10/31/16 20:21 11/05/16 22:51 Morphine Injection - IVPUSH 4 mg Q4H PRN Administration PAIN LEVEL 6-10 Multivitamins/Minerals 10 ml 10/31/16 10:00 11/06/16 10:00 Infuvite Adult - IV 10 ml DAILY [facility] Administration Travatan 0.004% Eye 1 each 10/30/16 22:00 11/05/16 21:54 Drops OU 1 each HS [facility] Administration Systane Ultra Eye 1 each 10/30/16 22:00 11/06/16 10:00 Drops OU 1 each BID [facility] Administration Ondansetron HCl 8 mg 10/30/16 14:35 Zofran Injection IVPB Q6H PRN NAUSEA AND/OR VOMITING ASSESSMENT/PLAN: 81 yr old man with HTN, HLD, hx of CVA, TIA with recent small bowel obstruction/ abdominal mass removal having several days of nausea and emesis transferred to the ICU due to respiratory distress. vieyra in place for urinary retention Palliative consult placed. patient at this time would benefit from continued therapy and waiting for bowel function to improve as he has been improving in the ICU - bowel sounds have increased since initial transfer and patient has been recovering well on clinimix daughter would like to discuss what would happen if bowel function does not return or next therapies, she would not want further surgical management, her goal is to atleast have her father back to previous baseline - some ambulation and able to be cared for at home. did not want to continue to conversation and did not express what her views were on GOC or what mr. silver would have wanted for himself. Pulmonary respiratory distress likely due to abdominal distention caused by ileus - improving nasal cannula 2.5L = saturation 91%, attempt to titrate to maintain sat >92% inhalers prn, incentive spirometer, will add chest PT to assist with bring up the phlegm GI POD #16(10/21) of small bowel obstruction/mass - mass pathology was non- malignant. to start TPN - monitor glucose with BGMs qshift, glucose controlled NPO except for meds until bowel movement bld cx NGTD for 48 hours, PICC line placed today for TPN consult: Dr. goyal Cardiovascular HTN - uncontrolled - changed to labetatol 10mg q6hr scheduled if SBP>150, diastolic>100 - amlodipine 5mg po CAD - hold lipitor and plavix Infectious Disease blood cx positive with Klebsiella, likely lll pna cefazolin 1gm q8hr - day 5 consult: dr. Bernal Hematological leucocytosis - improving Neurological confused, continue to orient. wrist restraints for safety. DVT: heparin TID, oob when able Diet: to start TPN Dispo: can be monitored on 4w and 4s Visit type - Emergency Visit Emergency Visit: No - New Patient This patient is new to me today: No - Critical Care Critical Care patient: Yes Total Critical Care Time (in minutes): 36 Critical Care Statement: The care of this patient involved high complexity decision making to prevent further life threatening deterioration of the patient 's condition and/or to evalute & treat vital organ system(s) failure or risk of failure.
--- NOTE | 2016-11-06 15:10 | PN ---
Progress Note (short form) - Note Progress Note: surgery pt off floor. cont npo. cont parenteral nutrition. ok to fully anticoagulate.
[2016-11-06] MEDS: [UNRECOGNIZED DRUG - OTHER] IVPB SCH (16:19)
[2016-11-06] MEDS: POTASSIUM PHOSPHATE IVPB SCH (16:19)
[2016-11-06] MEDS: POTASSIUM CHLORIDE IVPB SCH (16:19)
[2016-11-06] MEDS: INSULIN SLIDING SCALE (NOVOLOG) 1 VIAL SQ SCH (18:05)
--- NOTE | 2016-11-06 18:59 | PN ---
Progress Note, Physician History of Present Illness: Pt was transferred back to ICU. Post op day 15 Pt removed NGT. Pt is NPO except meds/ Pt with cough and productive yellow sputum, states that is better this AM Pt without N, V; pt has minimal abdominal pain Pt w/o fever, chills. Pt w/o CP, SOB, Palp. Pt was seen and examined in ICU - Current Medication List Current Medications: Active Medications Aclidinium [place] (Tudorza -) 1 puff IH BID [facility] Last Admin: 11/06/16 10:00 Dose: 1 puff Albuterol Sulfate (Ventolin 0.083% Nebulizer Soln -) 1 amp NEB Q4H PRN PRN Reason: SHORT OF BREATH/WHEEZING Amlodipine Besylate (Norvasc -) 5 mg PO DAILY [facility] Last Admin: 11/06/16 11:06 Dose: 5 mg Atorvastatin Calcium (Lipitor -) 40 mg PO HS [facility] Last Admin: 11/05/16 21:26 Dose: Not Given Heparin Sodium (Porcine) (Heparin -) 5,000 unit SQ TID [facility] Last Admin: 11/06/16 14:00 Dose: 5,000 unit IV Flush (Picc Line Flush) 8 ml IVPUSH PRN PRN PRN Reason: Protocol Fat Emulsion Intravenous (Intralipid -) 250 mls @ 20.833 mls/hr IV DAILY@2200 [facility] Last Admin: 11/05/16 21:25 Dose: 20.833 mls/hr Pantoprazole Sodium (Protonix 40mg Ivpb (Pre-Docked)) 100 mls @ 200 mls/hr IVPB DAILY [facility] Last Admin: 11/06/16 10:00 Dose: 200 mls/hr Cefazolin Sodium (Ancef 1gm Ivpb (Pre-Docked)) 50 mls @ 100 mls/hr IVPB Q8H-IV [facility] Last Admin: 11/06/16 18:03 Dose: 100 mls/hr Potassium Chloride 40 meq/Potassium Phosphate 30 mm/Sodium Chloride 50 meq/ Magnesium Sulfate 1.97 gm/Folic Acid 1 mg/ Thiamine HCl 100 mg/ Multivitamins/ Minerals 10 ml/ Chromium/Copper/Manganese/Seleni/Zn 1 ml/Sterile Water/ Amino Acids/Dextrose 1,500 mls @ 62.5 mls/hr IVPB DAILY@1600 [facility] Last Admin: 11/06/16 16:19 Dose: 62.5 mls/hr Insulin Aspart (Novolog Vial Sliding Scale -) 1 vial SQ BIDAC [facility] PRN Reason: Protocol Last Admin: 11/06/16 18:05 Dose: 2 units Labetalol HCl (Normodyne Injection -) 10 mg IVPUSH Q6H-IV [facility] Last Admin: 11/06/16 16:19 Dose: Not Given Metoclopramide HCl (Reglan Injection -) 10 mg IVPB Q6H-IV [facility] Last Admin: 11/06/16 15:00 Dose: 10 mg Morphine Sulfate (Morphine Injection -) 2 mg IVPUSH Q4H PRN PRN Reason: PAIN LEVEL 1-5 Last Admin: 11/06/16 02:13 Dose: 2 mg Morphine Sulfate (Morphine Injection -) 4 mg IVPUSH Q4H PRN PRN Reason: PAIN LEVEL 6-10 Last Admin: 11/05/16 22:51 Dose: 4 mg Multivitamins/Minerals (Infuvite Adult -) 10 ml IV DAILY [facility] Last Admin: 11/06/16 10:00 Dose: 10 ml Travatan 0.004% Eye (Drops) 1 each OU HS [facility] Last Admin: 11/05/16 21:54 Dose: 1 each Systane Ultra Eye (Drops) 1 each OU BID [facility] Last Admin: 11/06/16 10:00 Dose: 1 each Ondansetron HCl (Zofran Injection) 8 mg IVPB Q6H PRN PRN Reason: NAUSEA AND/OR VOMITING - Objective Vital Signs: Vital Signs Temperature 98.7 F 11/06/16 18:00 Pulse Rate 94 H 11/06/16 18:00 Respiratory Rate 20 11/06/16 18:00 Blood Pressure 142/74 11/06/16 18:00 O2 Sat by Pulse Oximetry (%) 94 L 11/06/16 09:00 Constitutional: Yes: No Distress, Calm Cardiovascular: Yes: Regular Rate and Rhythm, S1, S2, Other (+ right subclavian TLC) Respiratory: Yes: Regular, CTA Bilaterally, Rhonchi (at bases) Gastrointestinal: Yes: Normal Bowel Sounds, Soft, Tenderness, Other (in mid abdomen). No: Tenderness, Rebound Edema: No Neurological: Yes: Alert, Oriented Labs: CBC, BMP 11/06/16 05:30 11/06/16 05:30 Problem List - Problems (1) Small bowel mass Code(s): K63.89 - OTHER SPECIFIED DISEASES OF INTESTINE (2) SBO (small bowel obstruction) Code(s): K56.69 - OTHER INTESTINAL OBSTRUCTION (3) Pneumatosis intestinalis Code(s): K63.89 - OTHER SPECIFIED DISEASES OF INTESTINE (4) CHF (congestive heart failure) Code(s): I50.9 - HEART FAILURE, UNSPECIFIED (5) CVA (cerebral infarction) Code(s): I63.9 - CEREBRAL INFARCTION, UNSPECIFIED (6) Chronic obstructive pulmonary disease Code(s): J44.9 - CHRONIC OBSTRUCTIVE PULMONARY DISEASE, UNSPECIFIED (7) Hyperlipidemia Code(s): E78.5 - HYPERLIPIDEMIA, UNSPECIFIED (8) Hypokalemia due to inadequate potassium intake Code(s): E87.6 - HYPOKALEMIA (9) Hypophosphatemia Code(s): E83.39 - OTHER DISORDERS OF PHOSPHORUS METABOLISM (10) HTN (hypertension) Code(s): I10 - ESSENTIAL (PRIMARY) HYPERTENSION (11) Hypomagnesemia Code(s): E83.42 - HYPOMAGNESEMIA (12) Bandemia Code(s): D72.825 - BANDEMIA (13) Pneumonia Code(s): J18.9 - PNEUMONIA, UNSPECIFIED ORGANISM (14) Bacteremia Code(s): R78.81 - BACTEREMIA (15) Hypoalbuminemia Code(s): E88.09 - OTH DISORDERS OF PLASMA-PROTEIN METABOLISM, NEC Assessment/Plan GI and surgical f/u appreciated post OP day 15 Pt wants his to make medical decisions if he cannot; both daughter agrees with pt. All family's questions were answered Pt is hemodynamically stable. Pt had poor PO intake; pt with N and V for couple of days; NGT was reinserted again; pt removed NGT, now NPO except meds.; to f/u with Sx. Pt with + BCX, LLL PNA On IV abtx- readjusted per BCX Replace K. Pt tolerates PO meds Labetalol IVP, PRN, for better BP and HR control Pt on TPN. Pt. is s/p left PICCLine placement. AM labs. Prognosis: reserved. Case was d/w pt's nurse. Time spent for managing pt's care: 35 min.
--- NOTE | 2016-11-06 20:10 | PN ---
Problem List - Problems (1) Diastolic CHF Code(s): I50.30 - UNSPECIFIED DIASTOLIC (CONGESTIVE) HEART FAILURE (2) Hyperlipidemia Code(s): E78.5 - HYPERLIPIDEMIA, UNSPECIFIED (3) PSVT (paroxysmal supraventricular tachycardia) Code(s): I47.1 - SUPRAVENTRICULAR TACHYCARDIA (4) SBO (small bowel obstruction) Code(s): K56.69 - OTHER INTESTINAL OBSTRUCTION (5) Small bowel mass Code(s): K63.89 - OTHER SPECIFIED DISEASES OF INTESTINE (6) HTN (hypertension) Code(s): I10 - ESSENTIAL (PRIMARY) HYPERTENSION (7) Weakness Code(s): R53.1 - WEAKNESS (8) Hypothyroid Code(s): E03.9 - HYPOTHYROIDISM, UNSPECIFIED (9) Confusion Code(s): R41.0 - DISORIENTATION, UNSPECIFIED (10) Hypokalemia Code(s): E87.6 - HYPOKALEMIA
--- NOTE | 2016-11-06 20:16 | PN ---
Progress Note, Physician Chief Complaint: Pt remains confused, though he knows he is in "[facility]"; does not know the date or season; denies chest pain or dyspnea. History of Present Illness: 81-year-old black male with no history of abdominal surgery presents to the emergency department complaining of periumbilical 6/10 sharp nonradiating intermittent discomfort with nausea no vomiting, fever, chills, chest pain, shortness of breath, flank pains, urinary symptoms. There are no alleviating or exacerbating factors. Last bowel movement 4 days ago. - Current Medication List Current Medications: Active Medications Aclidinium [place] (Tudorza -) 1 puff IH BID [facility] Last Admin: 11/06/16 10:00 Dose: 1 puff Albuterol Sulfate (Ventolin 0.083% Nebulizer Soln -) 1 amp NEB Q4H PRN PRN Reason: SHORT OF BREATH/WHEEZING Amlodipine Besylate (Norvasc -) 5 mg PO DAILY [facility] Last Admin: 11/06/16 11:06 Dose: 5 mg Atorvastatin Calcium (Lipitor -) 40 mg PO HS [facility] Last Admin: 11/05/16 21:26 Dose: Not Given Heparin Sodium (Porcine) (Heparin -) 5,000 unit SQ TID [facility] Last Admin: 11/06/16 14:00 Dose: 5,000 unit IV Flush (Picc Line Flush) 8 ml IVPUSH PRN PRN PRN Reason: Protocol Fat Emulsion Intravenous (Intralipid -) 250 mls @ 20.833 mls/hr IV DAILY@2200 [facility] Last Admin: 11/05/16 21:25 Dose: 20.833 mls/hr Pantoprazole Sodium (Protonix 40mg Ivpb (Pre-Docked)) 100 mls @ 200 mls/hr IVPB DAILY [facility] Last Admin: 11/06/16 10:00 Dose: 200 mls/hr Cefazolin Sodium (Ancef 1gm Ivpb (Pre-Docked)) 50 mls @ 100 mls/hr IVPB Q8H-IV [facility] Last Admin: 11/06/16 18:03 Dose: 100 mls/hr Potassium Chloride 40 meq/Potassium Phosphate 30 mm/Sodium Chloride 50 meq/ Magnesium Sulfate 1.97 gm/Folic Acid 1 mg/ Thiamine HCl 100 mg/ Multivitamins/ Minerals 10 ml/ Chromium/Copper/Manganese/Seleni/Zn 1 ml/Sterile Water/ Amino Acids/Dextrose 1,500 mls @ 62.5 mls/hr IVPB DAILY@1600 [facility] Last Admin: 11/06/16 16:19 Dose: 62.5 mls/hr Insulin Aspart (Novolog Vial Sliding Scale -) 1 vial SQ BIDAC [facility] PRN Reason: Protocol Last Admin: 11/06/16 18:05 Dose: 2 units Labetalol HCl (Normodyne Injection -) 10 mg IVPUSH Q6H-IV [facility] Last Admin: 11/06/16 16:19 Dose: Not Given Metoclopramide HCl (Reglan Injection -) 10 mg IVPB Q6H-IV [facility] Last Admin: 11/06/16 15:00 Dose: 10 mg Morphine Sulfate (Morphine Injection -) 2 mg IVPUSH Q4H PRN PRN Reason: PAIN LEVEL 1-5 Last Admin: 11/06/16 02:13 Dose: 2 mg Morphine Sulfate (Morphine Injection -) 4 mg IVPUSH Q4H PRN PRN Reason: PAIN LEVEL 6-10 Last Admin: 11/05/16 22:51 Dose: 4 mg Multivitamins/Minerals (Infuvite Adult -) 10 ml IV DAILY [facility] Last Admin: 11/06/16 10:00 Dose: 10 ml Travatan 0.004% Eye (Drops) 1 each OU HS [facility] Last Admin: 11/05/16 21:54 Dose: 1 each Systane Ultra Eye (Drops) 1 each OU BID [facility] Last Admin: 11/06/16 10:00 Dose: 1 each Ondansetron HCl (Zofran Injection) 8 mg IVPB Q6H PRN PRN Reason: NAUSEA AND/OR VOMITING - Objective Vital Signs: Vital Signs Temperature 98.7 F 11/06/16 18:00 Pulse Rate 94 H 11/06/16 18:00 Respiratory Rate 20 11/06/16 18:00 Blood Pressure 142/74 11/06/16 18:00 O2 Sat by Pulse Oximetry (%) 94 L 11/06/16 09:00 Constitutional: Yes: Calm Eyes: Yes: WNL HENT: Yes: WNL Neck: Yes: WNL Cardiovascular: Yes: S1, S2, S4 Respiratory: Yes: Diminished Gastrointestinal: Yes: Soft ...Rectal Exam: Yes: Deferred Genitourinary: No: Anuria Musculoskeletal: Yes: Muscle Weakness Extremities: Yes: Cool Edema: No Peripheral Pulses WNL: No Peripheral Pulses: Left Doralis Pedis: 1+, Right Dorsalis Pedis: 1+ Integumentary: Yes: WNL Neurological: Yes: Confusion Psychiatric: Yes: Other Labs: CBC, BMP 11/06/16 05:30 11/06/16 05:30 - ....Imaging Other: Image Reviewed (NSR; periods of sinus tachycarida) Problem List - Problems (1) Diastolic CHF Assessment/Plan: continue present medications (would increase amlodipine to 10 mg daily for HTN; metoprolol changed to labetolol due to HTN; would change back to metoprolol once BP controlled due to PSVT). Increase amlodipine; f/u BP. See "HTN". F/u Is and Os, daily weight, BUN/Cr, electrolytes. Physical rehabilitation. Code(s): I50.30 - UNSPECIFIED DIASTOLIC (CONGESTIVE) HEART FAILURE (2) Hyperlipidemia Assessment/Plan: On atorvastatin; keep LDL cholesterol < 70 mg/dL. Code(s): E78.5 - HYPERLIPIDEMIA, UNSPECIFIED (3) PSVT (paroxysmal supraventricular tachycardia) Assessment/Plan: On labetolol IVP for BP; would change to metoprolol for PSVT and BP. Code(s): I47.1 - SUPRAVENTRICULAR TACHYCARDIA (4) SBO (small bowel obstruction) Assessment/Plan: f/u with surgeon Code(s): K56.69 - OTHER INTESTINAL OBSTRUCTION (5) Small bowel mass Code(s): K63.89 - OTHER SPECIFIED DISEASES OF INTESTINE (6) HTN (hypertension) Assessment/Plan: Now again on labetolol. On amlodipine; increased to 5 mg daily, and would now increase to 10 mg daily, as BP remains elevated. Consider adding ACEI, ARB (hypokalemic), if diuretic added, guard against further electrolyte depletion. Serial BP and HR checks. Code(s): I10 - ESSENTIAL (PRIMARY) HYPERTENSION (7) Weakness Code(s): R53.1 - WEAKNESS (8) Hypothyroid Assessment/Plan: decreased TSH; free T4 mildly elevated. Code(s): E03.9 - HYPOTHYROIDISM, UNSPECIFIED (9) Confusion Assessment/Plan: head CT: no acute pathology. more alert. F/u with neurologist. Code(s): R41.0 - DISORIENTATION, UNSPECIFIED (10) Hypokalemia Assessment/Plan: Keep K+ 4-4.5 (hx PSVT); presently hypokalemic. Keep Mg 2-2.3 Keep Po4 2.5-3.5. Consider adding ACEI or ARB for BP; may increase K. Code(s): E87.6 - HYPOKALEMIA (11) Bacteremia Assessment/Plan: for PICC line insertion. Code(s): R78.81 - BACTEREMIA Assessment/Plan cc time spent reviewing chart, examining pt, and writing note: 35 minutes.
[2016-11-06] MEDS: ATORVASTATIN CA 40 MG TABLET (FP) PO SCH (21:19)
[2016-11-06] MEDS: morphine CARPU-JECT 4 MG/1 ML DISP.SYRIN IVPUSH PRN (21:36)
[2016-11-06] MEDS: FAT EMULSIONS 250 ML IV SCH (21:37)
[2016-11-06] MEDS: EYE OU SCH (21:37)
[2016-11-06] MEDS: TRAVATAN 0.004% OU SCH (21:37)
[2016-11-07] MEDS: METOCLOPRAMIDE HCL INJECTION 10 MG/2 ML VIAL IVPB SCH ×4 (02:45→22:59)
[2016-11-07] MEDS: CEFAZOLIN (PRE-DOCKED) 50 ML IVPB SCH ×3 (02:46→17:36)
[2016-11-07] MEDS: LABETALOL HCL 5 MG/1 ML (100MG/20 ML VIAL) IVPUSH SCH ×4 (05:36→22:59)
[2016-11-07] MEDS: HEPARIN NA (PORCINE) 5,000 UNITS/ML 1ML VIAL SQ SCH ×3 (06:02→23:00)
[2016-11-07] MEDS: INSULIN SLIDING SCALE (NOVOLOG) 1 VIAL SQ SCH ×2 (06:03→18:00)
[2016-11-07 06:35] LABS: MCH 27.4 pg (25.7-33.7); MCHC 32.9 g/dl (32.0-35.9); MEAN CELL VOLUME 83.3 fl (80-96); MEAN PLT VOLUME 8.8 fl (7.5-11.1); PLATELET COUNT 303 K/MM3 (134-434); RDW 14.1 % (11.9-15.9); WHITE BLOOD COUNT 11.8 K/mm3 (4.0-10.0)
[2016-11-07 07:14] LABS: ALBUMIN 1.7 g/dl (3.4-5.0); ANION GAP 8 (8-16); BILIRUBIN,TOTAL 0.6 mg/dL (0.2-1.0); CALCIUM 7.9 mg/dL (8.5-10.1); CO2 30 mmol/L (21-32); CREATININE 0.5 mg/dL (0.7-1.3); GLUCOSE,RANDOM 176 mg/dL (74-106); PHOSPHOROUS 2.3 mg/dL (2.5-4.9); SGOT/AST 70 U/L (15-37); SGPT/ALT 72 U/L (12-78); TOT PROT 5.1 g/dl (6.4-8.2)
[2016-11-07 07:15] LABS: ALK PHOS 127 U/L (45-117)
--- NOTE | 2016-11-07 08:59 | PN ---
Progress Note, Physician Chief Complaint: ID Complains of abd discomfort No fevers NO SOB Cefazolin for bactermia - Current Medication List Current Medications: Active Medications Aclidinium [place] (Tudorza -) 1 puff IH BID [facility] Last Admin: 11/06/16 21:37 Dose: 1 puff Albuterol Sulfate (Ventolin 0.083% Nebulizer Soln -) 1 amp NEB Q4H PRN PRN Reason: SHORT OF BREATH/WHEEZING Amlodipine Besylate (Norvasc -) 5 mg PO DAILY [facility] Last Admin: 11/06/16 11:06 Dose: 5 mg Atorvastatin Calcium (Lipitor -) 40 mg PO HS [facility] Last Admin: 11/06/16 21:19 Dose: Not Given Heparin Sodium (Porcine) (Heparin -) 5,000 unit SQ TID [facility] Last Admin: 11/07/16 06:02 Dose: 5,000 unit IV Flush (Picc Line Flush) 8 ml IVPUSH PRN PRN PRN Reason: Protocol Fat Emulsion Intravenous (Intralipid -) 250 mls @ 20.833 mls/hr IV DAILY@2200 [facility] Last Admin: 11/06/16 21:37 Dose: 20.833 mls/hr Pantoprazole Sodium (Protonix 40mg Ivpb (Pre-Docked)) 100 mls @ 200 mls/hr IVPB DAILY [facility] Last Admin: 11/06/16 10:00 Dose: 200 mls/hr Cefazolin Sodium (Ancef 1gm Ivpb (Pre-Docked)) 50 mls @ 100 mls/hr IVPB Q8H-IV [facility] Last Admin: 11/07/16 02:46 Dose: 100 mls/hr Potassium Chloride 40 meq/Potassium Phosphate 30 mm/Sodium Chloride 50 meq/ Magnesium Sulfate 1.97 gm/Folic Acid 1 mg/ Thiamine HCl 100 mg/ Multivitamins/ Minerals 10 ml/ Chromium/Copper/Manganese/Seleni/Zn 1 ml/Sterile Water/ Amino Acids/Dextrose 1,500 mls @ 62.5 mls/hr IVPB DAILY@1600 [facility] Last Admin: 11/06/16 16:19 Dose: 62.5 mls/hr Insulin Aspart (Novolog Vial Sliding Scale -) 1 vial SQ BIDAC [facility] PRN Reason: Protocol Last Admin: 11/07/16 06:03 Dose: 4 units Labetalol HCl (Normodyne Injection -) 10 mg IVPUSH Q6H-IV [facility] Last Admin: 11/07/16 05:36 Dose: Not Given Metoclopramide HCl (Reglan Injection -) 10 mg IVPB Q6H-IV [facility] Last Admin: 11/07/16 02:45 Dose: 10 mg Morphine Sulfate (Morphine Injection -) 2 mg IVPUSH Q4H PRN PRN Reason: PAIN LEVEL 1-5 Last Admin: 11/06/16 02:13 Dose: 2 mg Morphine Sulfate (Morphine Injection -) 4 mg IVPUSH Q4H PRN PRN Reason: PAIN LEVEL 6-10 Last Admin: 11/06/16 21:36 Dose: 4 mg Multivitamins/Minerals (Infuvite Adult -) 10 ml IV DAILY [facility] Last Admin: 11/06/16 10:00 Dose: 10 ml Travatan 0.004% Eye (Drops) 1 each OU HS [facility] Last Admin: 11/06/16 21:37 Dose: 1 each Systane Ultra Eye (Drops) 1 each OU BID [facility] Last Admin: 11/06/16 21:37 Dose: 1 each Ondansetron HCl (Zofran Injection) 8 mg IVPB Q6H PRN PRN Reason: NAUSEA AND/OR VOMITING - Objective Vital Signs: Vital Signs Temperature 98.1 F 11/07/16 06:00 Pulse Rate 83 11/07/16 06:00 Respiratory Rate 14 11/07/16 06:00 Blood Pressure 156/79 11/07/16 06:00 O2 Sat by Pulse Oximetry (%) 94 L 11/06/16 20:29 Constitutional: Yes: No Distress HENT: Yes: WNL, Atraumatic Neck: Yes: WNL, Supple Cardiovascular: Yes: Regular Rate and Rhythm, S1, S2. No: Murmur Respiratory: Yes: WNL, Regular, CTA Bilaterally, Diminished Gastrointestinal: Yes: Soft, Tenderness. No: Distention Extremities: Yes: Other (PICC line bulla right arm) Labs: CBC, BMP 11/07/16 05:20 11/07/16 05:20 Assessment/Plan Microbiology 11/01/16 12:15 Blood - Peripheral Venous Blood Culture - Final Klebsiella Pneumoniae Laboratory Tests 11/07/16 11/07/16 05:20 05:20 WBC 11.8 H Hgb 11.7 Plt Count 303 BUN 14 Creatinine 0.5 L Assessment Day 16 post surgery SBO Klebsiella bacteremia Bulla right arm related to fluid shift low alb LLL pneumonia Plan Continue antibiotics Advance diet Alexandru MARRERO
[2016-11-07] MEDS: POLYETHYLENE GLYCOL 3350 119 GM BTL PO ONE ×2 (09:05→12:30)
[2016-11-07] MEDS: amLODIPine BESYLATE 5 MG TABLET (FP) PO SCH (09:09)
[2016-11-07] MEDS: ACLIDINIUM BROMIDE 400 MCG/INH AERO.POWD IH SCH ×2 (09:11→22:11)
[2016-11-07] MEDS: SYSTANE ULTRA EYE DROPS OU SCH ×2 (09:12→23:00)
--- NOTE | 2016-11-07 09:17 | PN ---
Progress Note (short form) - Note Progress Note: PULM/CCM SUBJECTIVE: Patient seen and examined in the ICU. More awake and alert on TPN No BM or flatus, surgery saw this morning wants to trial PO. stable for floor OBJECTIVE: Vital Signs Temp 98.1 F 11/07/16 06:00 Pulse 83 11/07/16 06:00 Resp 14 11/07/16 06:00 BP 156/79 11/07/16 06:00 Pulse Ox 94 L 11/06/16 20:29 Intake & Output 11/06/16 11/06/16 11/07/16 11:59 23:59 11:59 Intake Total 1370 1885.5 997.6 Output Total 671 216 2593 Balance 870 1485.5 -602.4 Weight 67.222 kg Intake: IV 1170 1015.5 997.6 intralipid 250 250 clinimix 920 828 0 TPN 187.5 747.6 IVPB 200 850 Oral 0 20 0 Output: Urine 723 425 2287 Chavarria 960 745 2169 Emesis 0 0 Other: Voiding Method Indwelling Catheter Indwelling Catheter Bowel Movement No Weight Measurement Method Built in [facility] Built in [facility] CBC, BMP 11/07/16 05:20 11/07/16 05:20 Active Medications Aclidinium [place] (Tudorza -) 1 puff IH BID [facility] Last Admin: 11/07/16 09:11 Dose: 1 puff Albuterol Sulfate (Ventolin 0.083% Nebulizer Soln -) 1 amp NEB Q4H PRN PRN Reason: SHORT OF BREATH/WHEEZING Amlodipine Besylate (Norvasc -) 5 mg PO DAILY [facility] Last Admin: 11/07/16 09:09 Dose: 5 mg Atorvastatin Calcium (Lipitor -) 40 mg PO HS [facility] Last Admin: 11/06/16 21:19 Dose: Not Given Heparin Sodium (Porcine) (Heparin -) 5,000 unit SQ TID [facility] Last Admin: 11/07/16 06:02 Dose: 5,000 unit IV Flush (Picc Line Flush) 8 ml IVPUSH PRN PRN PRN Reason: Protocol Fat Emulsion Intravenous (Intralipid -) 250 mls @ 20.833 mls/hr IV DAILY@2200 [facility] Last Admin: 11/06/16 21:37 Dose: 20.833 mls/hr Pantoprazole Sodium (Protonix 40mg Ivpb (Pre-Docked)) 100 mls @ 200 mls/hr IVPB DAILY [facility] Last Admin: 11/06/16 10:00 Dose: 200 mls/hr Cefazolin Sodium (Ancef 1gm Ivpb (Pre-Docked)) 50 mls @ 100 mls/hr IVPB Q8H-IV [facility] Last Admin: 11/07/16 09:09 Dose: 100 mls/hr Potassium Chloride 40 meq/Potassium Phosphate 30 mm/Sodium Chloride 50 meq/ Magnesium Sulfate 1.97 gm/Folic Acid 1 mg/ Thiamine HCl 100 mg/ Multivitamins/ Minerals 10 ml/ Chromium/Copper/Manganese/Seleni/Zn 1 ml/Sterile Water/ Amino Acids/Dextrose 1,500 mls @ 62.5 mls/hr IVPB DAILY@1600 [facility] Last Admin: 11/06/16 16:19 Dose: 62.5 mls/hr Insulin Aspart (Novolog Vial Sliding Scale -) 1 vial SQ BIDAC [facility] PRN Reason: Protocol Last Admin: 11/07/16 06:03 Dose: 4 units Labetalol HCl (Normodyne Injection -) 10 mg IVPUSH Q6H-IV [facility] Last Admin: 11/07/16 09:08 Dose: Not Given Metoclopramide HCl (Reglan Injection -) 10 mg IVPB Q6H-IV [facility] Last Admin: 11/07/16 09:08 Dose: 10 mg Morphine Sulfate (Morphine Injection -) 2 mg IVPUSH Q4H PRN PRN Reason: PAIN LEVEL 1-5 Last Admin: 11/06/16 02:13 Dose: 2 mg Morphine Sulfate (Morphine Injection -) 4 mg IVPUSH Q4H PRN PRN Reason: PAIN LEVEL 6-10 Last Admin: 11/06/16 21:36 Dose: 4 mg Multivitamins/Minerals (Infuvite Adult -) 10 ml IV DAILY [facility] Last Admin: 11/06/16 10:00 Dose: 10 ml Travatan 0.004% Eye (Drops) 1 each OU HS [facility] Last Admin: 11/06/16 21:37 Dose: 1 each Systane Ultra Eye (Drops) 1 each OU BID [facility] Last Admin: 11/07/16 09:12 Dose: 1 each Ondansetron HCl (Zofran Injection) 8 mg IVPB Q6H PRN PRN Reason: NAUSEA AND/OR VOMITING Polyethylene Glycol (Miralax (For Daily Use) -) 17 gm PO ONCE ONE Stop: 11/07/16 09:16 Last Admin: 11/07/16 09:05 Dose: 17 gm Gen: Awake and alert, Mildly tachypneic at rest Heart: RRR Lung: scattered rhonchi, RSC TLC CDI Abd: soft, nontender, incision clean, +BS Ext:dependent edema R> L UE. 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
[2016-11-07] MEDS: MULTIVIT INJ. ADULT COMBO WITH VIT K 1 COMBO 10 ML VIAL IV SCH ×3 (09:48→12:32)
[2016-11-07] MEDS: PANTOPRAZOLE SODIUM 100 ML IVPB SCH (09:49)
[2016-11-07] MEDS: ALBUTEROL SO4 0.083% IH SOL 2.5 MG/3 ML VIAL.NEB. NEB PRN (10:00)
--- NOTE | 2016-11-07 14:16 | PN ---
Progress Note, Physician History of Present Illness: Pt was transferred back to ICU few days ago. Post op day 16 Pt removed NGT. Pt is was advanced to clear liquids Pt with cough and productive yellow sputum, states that is better this AM Pt without N, V; pt has minimal abdominal pain Pt w/o fever, chills. Pt w/o CP, SOB, Palp. Pt was seen and examined in ICU - Current Medication List Current Medications: Active Medications Aclidinium [place] (Tudorza -) 1 puff IH BID [facility] Last Admin: 11/07/16 09:11 Dose: 1 puff Albuterol Sulfate (Ventolin 0.083% Nebulizer Soln -) 1 amp NEB Q4H PRN PRN Reason: SHORT OF BREATH/WHEEZING Last Admin: 11/07/16 10:00 Dose: 1 amp Amlodipine Besylate (Norvasc -) 5 mg PO DAILY [facility] Last Admin: 11/07/16 09:09 Dose: 5 mg Atorvastatin Calcium (Lipitor -) 40 mg PO HS [facility] Last Admin: 11/06/16 21:19 Dose: Not Given Heparin Sodium (Porcine) (Heparin -) 5,000 unit SQ TID [facility] Last Admin: 11/07/16 13:50 Dose: 5,000 unit IV Flush (Picc Line Flush) 8 ml IVPUSH PRN PRN PRN Reason: Protocol Fat Emulsion Intravenous (Intralipid -) 250 mls @ 20.833 mls/hr IV DAILY@2200 [facility] Last Admin: 10/30/16 02:59 Dose: 20.833 mls/hr Pantoprazole Sodium (Protonix 40mg Ivpb (Pre-Docked)) 100 mls @ 200 mls/hr IVPB DAILY [facility] Last Admin: 11/07/16 09:49 Dose: 200 mls/hr Cefazolin Sodium (Ancef 1gm Ivpb (Pre-Docked)) 50 mls @ 100 mls/hr IVPB Q8H-IV [facility] Last Admin: 11/07/16 09:09 Dose: 100 mls/hr Potassium Chloride 40 meq/Potassium Phosphate 30 mm/Sodium Chloride 50 meq/ Magnesium Sulfate 1.97 gm/Folic Acid 1 mg/ Thiamine HCl 100 mg/ Multivitamins/ Minerals 10 ml/ Chromium/Copper/Manganese/Seleni/Zn 1 ml/Sterile Water/ Amino Acids/Dextrose 1,500 mls @ 62.5 mls/hr IVPB DAILY@1600 [facility] Last Admin: 11/06/16 16:19 Dose: 62.5 mls/hr Insulin Aspart (Novolog Vial Sliding Scale -) 1 vial SQ BIDAC [facility] PRN Reason: Protocol Last Admin: 11/07/16 06:03 Dose: 4 units Labetalol HCl (Normodyne Injection -) 10 mg IVPUSH Q6H-IV [facility] Last Admin: 11/07/16 09:08 Dose: Not Given Metoclopramide HCl (Reglan Injection -) 10 mg IVPB Q6H-IV [facility] Last Admin: 11/07/16 09:08 Dose: 10 mg Morphine Sulfate (Morphine Injection -) 2 mg IVPUSH Q4H PRN PRN Reason: PAIN LEVEL 1-5 Last Admin: 11/06/16 02:13 Dose: 2 mg Morphine Sulfate (Morphine Injection -) 4 mg IVPUSH Q4H PRN PRN Reason: PAIN LEVEL 6-10 Last Admin: 11/06/16 21:36 Dose: 4 mg Travatan 0.004% Eye (Drops) 1 each OU HS [facility] Last Admin: 11/06/16 21:37 Dose: 1 each Systane Ultra Eye (Drops) 1 each OU BID [facility] Last Admin: 11/07/16 09:12 Dose: 1 each Ondansetron HCl (Zofran Injection) 8 mg IVPB Q6H PRN PRN Reason: NAUSEA AND/OR VOMITING - Objective Vital Signs: Vital Signs Temperature 97.9 F 11/07/16 10:00 Pulse Rate 92 H 11/07/16 12:00 Respiratory Rate 19 11/07/16 12:00 Blood Pressure 153/76 11/07/16 12:00 O2 Sat by Pulse Oximetry (%) 96 11/07/16 10:00 Constitutional: Yes: No Distress, Calm Cardiovascular: Yes: Regular Rate and Rhythm, S1, S2 Respiratory: Yes: Regular, CTA Bilaterally, Rhonchi (at bases) Gastrointestinal: Yes: Normal Bowel Sounds, Hypoactive Bowel Sounds, Tenderness (in mid abdomen ( above bruised area)) Edema: No Labs: CBC, BMP 11/07/16 05:20 11/07/16 05:20 Problem List - Problems (1) Small bowel mass Code(s): K63.89 - OTHER SPECIFIED DISEASES OF INTESTINE (2) SBO (small bowel obstruction) Code(s): K56.69 - OTHER INTESTINAL OBSTRUCTION (3) Pneumatosis intestinalis Code(s): K63.89 - OTHER SPECIFIED DISEASES OF INTESTINE (4) CHF (congestive heart failure) Code(s): I50.9 - HEART FAILURE, UNSPECIFIED (5) CVA (cerebral infarction) Code(s): I63.9 - CEREBRAL INFARCTION, UNSPECIFIED (6) Chronic obstructive pulmonary disease Code(s): J44.9 - CHRONIC OBSTRUCTIVE PULMONARY DISEASE, UNSPECIFIED (7) Hyperlipidemia Code(s): E78.5 - HYPERLIPIDEMIA, UNSPECIFIED (8) Hypokalemia due to inadequate potassium intake Code(s): E87.6 - HYPOKALEMIA (9) Hypophosphatemia Code(s): E83.39 - OTHER DISORDERS OF PHOSPHORUS METABOLISM (10) HTN (hypertension) Code(s): I10 - ESSENTIAL (PRIMARY) HYPERTENSION (11) Hypomagnesemia Code(s): E83.42 - HYPOMAGNESEMIA (12) Bandemia Code(s): D72.825 - BANDEMIA (13) Pneumonia Code(s): J18.9 - PNEUMONIA, UNSPECIFIED ORGANISM (14) Bacteremia Code(s): R78.81 - BACTEREMIA (15) Hypoalbuminemia Code(s): E88.09 - OTH DISORDERS OF PLASMA-PROTEIN METABOLISM, NEC Assessment/Plan GI and surgical f/u appreciated post OP day 16 Pt wants his to make medical decisions if he cannot; both daughter agrees with pt. All family's questions were answered Pt is hemodynamically stable. Pt had poor PO intake; pt with N and V for couple of days; NGT was reinserted again; pt removed NGT, now NPO except meds.; to f/u with Sx. Pt with + BCX, LLL PNA On IV abtx- readjusted per BCX Replace Ph. Pt tolerates PO meds Labetalol IVP, PRN, for better BP and HR control Pt on TPN. Pt. is s/p left PICC Line placement. AM labs. Prognosis: reserved. Case was d/w pt's nurse. Time spent for managing pt's care: 35 min.
[2016-11-07] MEDS ORDERED: guaiFENesin/D-METHORPHAN HB 10 ML UNIT-DOSE CUPS PO PRN (14:17)
--- NOTE | 2016-11-07 14:41 | PN ---
Progress Note, Physician History of Present Illness: 81 year old man with a history of HTN, HLD, COPD, CVA, AAA admitted with abdominal discomfort and constipation concerning for SBO. Pt seen and examined today in nad. He states that he had multiple small BM's yesterday and overnight. denies any current abd pain. denies chest pain, sob, palpitations. no pnd, orthopnea, or LE edema. NG tube in place. PMH LE angio 02/21/2015 Dr. 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 Dr Alcazar PCI LCx 09/20/2014 Dr Alcazar Medical History Reviewed Condition Date Treating Physician Comments Claudication, intermittent HTN Hyperlipidemia TIA/CVA - Current Medication List Current Medications: Active Medications Aclidinium [place] (Tudorza -) 1 puff IH BID [facility] Last Admin: 11/07/16 09:11 Dose: 1 puff Albuterol Sulfate (Ventolin 0.083% Nebulizer Soln -) 1 amp NEB Q4H PRN PRN Reason: SHORT OF BREATH/WHEEZING Last Admin: 11/07/16 10:00 Dose: 1 amp Amlodipine Besylate (Norvasc -) 5 mg PO DAILY [facility] Last Admin: 11/07/16 09:09 Dose: 5 mg Atorvastatin Calcium (Lipitor -) 40 mg PO HS [facility] Last Admin: 11/06/16 21:19 Dose: Not Given Guaifenesin (Robitussin Dm -) 10 ml PO Q4H PRN PRN Reason: COUGH Heparin Sodium (Porcine) (Heparin -) 5,000 unit SQ TID [facility] Last Admin: 11/07/16 13:50 Dose: 5,000 unit IV Flush (Picc Line Flush) 8 ml IVPUSH PRN PRN PRN Reason: Protocol Fat Emulsion Intravenous (Intralipid -) 250 mls @ 20.833 mls/hr IV DAILY@2200 [facility] Last Admin: 10/30/16 02:59 Dose: 20.833 mls/hr Pantoprazole Sodium (Protonix 40mg Ivpb (Pre-Docked)) 100 mls @ 200 mls/hr IVPB DAILY [facility] Last Admin: 11/07/16 09:49 Dose: 200 mls/hr Cefazolin Sodium (Ancef 1gm Ivpb (Pre-Docked)) 50 mls @ 100 mls/hr IVPB Q8H-IV [facility] Last Admin: 11/07/16 09:09 Dose: 100 mls/hr Potassium Chloride 40 meq/Potassium Phosphate 30 mm/Sodium Chloride 50 meq/ Magnesium Sulfate 1.97 gm/Folic Acid 1 mg/ Thiamine HCl 100 mg/ Multivitamins/ Minerals 10 ml/ Chromium/Copper/Manganese/Seleni/Zn 1 ml/Sterile Water/ Amino Acids/Dextrose 1,500 mls @ 62.5 mls/hr IVPB DAILY@1600 [facility] Last Admin: 11/06/16 16:19 Dose: 62.5 mls/hr Insulin Aspart (Novolog Vial Sliding Scale -) 1 vial SQ BIDAC [facility] PRN Reason: Protocol Last Admin: 11/07/16 06:03 Dose: 4 units Labetalol HCl (Normodyne Injection -) 10 mg IVPUSH Q6H-IV [facility] Last Admin: 11/07/16 09:08 Dose: Not Given Metoclopramide HCl (Reglan Injection -) 10 mg IVPB Q6H-IV [facility] Last Admin: 11/07/16 14:17 Dose: 10 mg Morphine Sulfate (Morphine Injection -) 2 mg IVPUSH Q4H PRN PRN Reason: PAIN LEVEL 1-5 Last Admin: 11/06/16 02:13 Dose: 2 mg Morphine Sulfate (Morphine Injection -) 4 mg IVPUSH Q4H PRN PRN Reason: PAIN LEVEL 6-10 Last Admin: 11/06/16 21:36 Dose: 4 mg Travatan 0.004% Eye (Drops) 1 each OU HS [facility] Last Admin: 11/06/16 21:37 Dose: 1 each Systane Ultra Eye (Drops) 1 each OU BID [facility] Last Admin: 11/07/16 09:12 Dose: 1 each Ondansetron HCl (Zofran Injection) 8 mg IVPB Q6H PRN PRN Reason: NAUSEA AND/OR VOMITING - Objective Vital Signs: Vital Signs Temperature 97.9 F 11/07/16 10:00 Pulse Rate 92 H 11/07/16 12:00 Respiratory Rate 19 11/07/16 12:00 Blood Pressure 153/76 11/07/16 12:00 O2 Sat by Pulse Oximetry (%) 96 11/07/16 10:00 Eyes: Yes: WNL, Conjunctiva Clear, EOM Intact HENT: Yes: WNL, Atraumatic, Normocephalic Neck: Yes: WNL, Supple, Trachea Midline Cardiovascular: Yes: WNL, Regular Rate and Rhythm Respiratory: Yes: WNL, Regular, CTA Bilaterally Gastrointestinal: Yes: WNL, Normal Bowel Sounds Genitourinary: Yes: WNL Musculoskeletal: Yes: WNL Extremities: Yes: WNL Edema: No Integumentary: Yes: WNL Neurological: Yes: WNL, Alert, Oriented ...Motor Strength: WNL Psychiatric: Yes: WNL Labs: CBC, BMP 11/07/16 05:20 11/07/16 05:20 Assessment/Plan - Problems (1) Diastolic CHF Assessment/Plan: continue present medications (would increase amlodipine to 10 mg daily for HTN; metoprolol changed to labetolol due to HTN; would change back to metoprolol once BP controlled due to PSVT). Increase amlodipine; f/u BP. See "HTN". F/u Is and Os, daily weight, BUN/Cr, electrolytes. Physical rehabilitation. Code(s): I50.30 - UNSPECIFIED DIASTOLIC (CONGESTIVE) HEART FAILURE (2) Hyperlipidemia Assessment/Plan: On atorvastatin; keep LDL cholesterol < 70 mg/dL. Code(s): E78.5 - HYPERLIPIDEMIA, UNSPECIFIED (3) PSVT (paroxysmal supraventricular tachycardia) Assessment/Plan: On labetolol IVP for BP; would change to metoprolol for PSVT and BP. Code(s): I47.1 - SUPRAVENTRICULAR TACHYCARDIA (4) SBO (small bowel obstruction) Assessment/Plan: f/u with surgeon Code(s): K56.69 - OTHER INTESTINAL OBSTRUCTION (5) Small bowel mass Code(s): K63.89 - OTHER SPECIFIED DISEASES OF INTESTINE (6) HTN (hypertension) Assessment/Plan: Now again on labetolol. On amlodipine; increased to 5 mg daily, and would now increase to 10 mg daily, as BP remains elevated. Consider adding ACEI, ARB (hypokalemic), if diuretic added, guard against further electrolyte depletion. Serial BP and HR checks. Code(s): I10 - ESSENTIAL (PRIMARY) HYPERTENSION (7) Weakness Code(s): R53.1 - WEAKNESS (8) Hypothyroid Assessment/Plan: decreased TSH; free T4 mildly elevated. Code(s): E03.9 - HYPOTHYROIDISM, UNSPECIFIED (9) Confusion Assessment/Plan: head CT: no acute pathology. more alert. F/u with neurologist. Code(s): R41.0 - DISORIENTATION, UNSPECIFIED (10) Hypokalemia Assessment/Plan: Keep K+ 4-4.5 (hx PSVT); presently hypokalemic. Keep Mg 2-2.3 Keep Po4 2.5-3.5. Consider adding ACEI or ARB for BP; may increase K. Code(s): E87.6 - HYPOKALEMIA (11) Bacteremia Assessment/Plan: for PICC line insertion. Code(s): R78.81 - BACTEREMIA Assessment/Plan cc time spent reviewing chart, examining pt, and writing note: 35 minutes.
[2016-11-07] MEDS: [UNRECOGNIZED DRUG - OTHER] IVPB SCH (16:55)
[2016-11-07] MEDS: SODIUM CHLORIDE IVPB SCH (16:55)
[2016-11-07] MEDS: POTASSIUM PHOSPHATE IVPB SCH (16:55)
[2016-11-07] MEDS: POTASSIUM CHLORIDE IVPB SCH (16:55)
[2016-11-07] MEDS: FAT EMULSIONS 250 ML IV SCH (22:59)
[2016-11-07] MEDS: ATORVASTATIN CA 40 MG TABLET (FP) PO SCH (23:00)
[2016-11-07] MEDS: EYE OU SCH (23:00)
[2016-11-07] MEDS: TRAVATAN 0.004% OU SCH (23:00)
[2016-11-08] MEDS: CEFAZOLIN (PRE-DOCKED) 50 ML IVPB SCH ×3 (01:52→17:02)
[2016-11-08] MEDS: LABETALOL HCL 5 MG/1 ML (100MG/20 ML VIAL) IVPUSH SCH ×4 (02:04→23:05)
[2016-11-08] MEDS: METOCLOPRAMIDE HCL INJECTION 10 MG/2 ML VIAL IVPB SCH ×4 (02:05→23:04)
[2016-11-08] MEDS: ALBUTEROL SO4 0.083% IH SOL 2.5 MG/3 ML VIAL.NEB. NEB PRN (02:16)
[2016-11-08] MEDS: INSULIN SLIDING SCALE (NOVOLOG) 1 VIAL SQ SCH ×2 (06:08→17:02)
[2016-11-08] MEDS: HEPARIN NA (PORCINE) 5,000 UNITS/ML 1ML VIAL SQ SCH ×3 (06:08→23:04)
[2016-11-08 07:58] LABS: MCH 27.9 pg (25.7-33.7); MCHC 33.4 g/dl (32.0-35.9); MEAN CELL VOLUME 83.6 fl (80-96); MEAN PLT VOLUME 8.8 fl (7.5-11.1); PLATELET COUNT 276 K/MM3 (134-434); RDW 14.4 % (11.9-15.9); WHITE BLOOD COUNT 11.2 K/mm3 (4.0-10.0)
[2016-11-08 08:03] LABS: ANION GAP 6 (8-16); CALCIUM 7.9 mg/dL (8.5-10.1); CO2 29 mmol/L (21-32); GLUCOSE,RANDOM 199 mg/dL (74-106); MAGNESIUM 2.2 mg/dL (1.8-2.4)
[2016-11-08 08:04] LABS: CREATININE 0.4 mg/dL (0.7-1.3); PHOSPHOROUS 2.4 mg/dL (2.5-4.9)
[2016-11-08] MEDS: amLODIPine BESYLATE 5 MG TABLET (FP) PO SCH (09:02)
[2016-11-08] MEDS: PANTOPRAZOLE SODIUM 100 ML IVPB SCH (09:03)
[2016-11-08] MEDS: ACLIDINIUM BROMIDE 400 MCG/INH AERO.POWD IH SCH ×2 (09:11→23:25)
[2016-11-08] MEDS: SYSTANE ULTRA EYE DROPS OU SCH ×2 (09:12→23:24)
[2016-11-08] MEDS ORDERED: amLODIPine BESYLATE 2.5 MG TABLET (FP) PO ONE (10:35)
[2016-11-08] MEDS: POTASSIUM PHOSPHATE 15 MM in SODIUM CHLORIDE 250 ML IVPB ONE ×2 (12:00→14:07)
--- NOTE | 2016-11-08 12:39 | PN ---
Progress Note (short form) - Note Progress Note: PULMONARY OOB TO CHAIR VSS/AFEBRILE ANICTERIC DIMINISHED DIFFUSE BREATH SOUNDS/LEFT BASE CRACKLES S1S2 ABD POST SURGICAL/WOUND CLEAN/DRY BOWEL SOUNDS ARE DIMINISHED/HYPER-RESONANT RUQ NO EDEMA LABS./MEDS/NOTES/IMAGING/PATH REVIEWED Acute respiratory distress resolved Small Bowel Obstruction s/p ex-lap path: no malignancy noted COPD HTN Hyperlipidemia CHF h/o CVA CONTINUE ABS/O2/BRONCHODILATORS SUPPORTIVE CARE SURGICAL F/U R IRIS MARRERO
[2016-11-08] MEDS: guaiFENesin/D-METHORPHAN HB 10 ML UNIT-DOSE CUPS PO SCH ×3 (14:01→23:24)
[2016-11-08] MEDS: SODIUM CHLORIDE IVPB SCH (17:39)
[2016-11-08] MEDS: POTASSIUM CHLORIDE IVPB SCH (17:39)
[2016-11-08] MEDS: [UNRECOGNIZED DRUG - OTHER] IVPB SCH (17:39)
[2016-11-08] MEDS: POTASSIUM PHOSPHATE IVPB SCH (17:39)
--- NOTE | 2016-11-08 21:37 | PN ---
Progress Note, Physician History of Present Illness: Pt was transferred from ICU to Telemetry Post op day 17 Pt removed NGT. Pt is was advanced to clear liquids Pt with cough and productive yellow sputum, states that is better this AM Pt without N, V; pt has minimal abdominal pain Pt w/o fever, chills. Pt w/o CP, SOB, Palp. Pt was seen and examined in AM - Current Medication List Current Medications: Active Medications Aclidinium [place] (Tudorza -) 1 puff IH BID [facility] Last Admin: 11/08/16 09:11 Dose: 1 puff Amlodipine Besylate (Norvasc -) 5 mg PO DAILY [facility] Last Admin: 11/08/16 09:02 Dose: 5 mg Atorvastatin Calcium (Lipitor -) 40 mg PO HS [facility] Last Admin: 11/07/16 23:00 Dose: 40 mg Guaifenesin (Robitussin Dm -) 10 ml PO Q4HWA [facility] Last Admin: 11/08/16 17:03 Dose: 10 ml Heparin Sodium (Porcine) (Heparin -) 5,000 unit SQ TID [facility] Last Admin: 11/08/16 13:55 Dose: 5,000 unit IV Flush (Picc Line Flush) 8 ml IVPUSH PRN PRN PRN Reason: Protocol Fat Emulsion Intravenous (Intralipid -) 250 mls @ 20.833 mls/hr IV DAILY@2200 [facility] Last Admin: 11/07/16 22:59 Dose: 20.833 mls/hr Pantoprazole Sodium (Protonix 40mg Ivpb (Pre-Docked)) 100 mls @ 200 mls/hr IVPB DAILY [facility] Last Admin: 11/08/16 09:03 Dose: 200 mls/hr Cefazolin Sodium (Ancef 1gm Ivpb (Pre-Docked)) 50 mls @ 100 mls/hr IVPB Q8H-IV [facility] Last Admin: 11/08/16 17:02 Dose: 100 mls/hr Potassium Chloride 40 meq/Potassium Phosphate 30 mm/Sodium Chloride 50 meq/ Magnesium Sulfate 1.97 gm/Folic Acid 1 mg/ Thiamine HCl 100 mg/ Multivitamins/ Minerals 10 ml/ Chromium/Copper/Manganese/Seleni/Zn 1 ml/Sterile Water/ Amino Acids/Dextrose 1,500 mls @ 62.5 mls/hr IVPB DAILY@1600 [facility] Last Admin: 11/08/16 17:39 Dose: 62.5 mls/hr Insulin Aspart (Novolog Vial Sliding Scale -) 1 vial SQ BIDAC [facility] PRN Reason: Protocol Last Admin: 11/08/16 17:02 Dose: 2 units Labetalol HCl (Normodyne Injection -) 10 mg IVPUSH Q6H-IV [facility] Last Admin: 11/08/16 14:00 Dose: 10 mg Metoclopramide HCl (Reglan Injection -) 10 mg IVPB Q6H-IV [facility] Last Admin: 11/08/16 14:02 Dose: 10 mg Morphine Sulfate (Morphine Injection -) 2 mg IVPUSH Q4H PRN PRN Reason: PAIN LEVEL 1-5 Last Admin: 11/06/16 02:13 Dose: 2 mg Morphine Sulfate (Morphine Injection -) 4 mg IVPUSH Q4H PRN PRN Reason: PAIN LEVEL 6-10 Last Admin: 11/06/16 21:36 Dose: 4 mg Travatan 0.004% Eye (Drops) 1 each OU HS [facility] Last Admin: 11/07/16 23:00 Dose: 1 each Systane Ultra Eye (Drops) 1 each OU BID [facility] Last Admin: 11/08/16 09:12 Dose: 1 each Ondansetron HCl (Zofran Injection) 8 mg IVPB Q6H PRN PRN Reason: NAUSEA AND/OR VOMITING - Objective Vital Signs: Vital Signs Temperature 98.4 F 11/08/16 18:00 Pulse Rate 91 H 11/08/16 18:00 Respiratory Rate 18 11/08/16 18:00 Blood Pressure 151/86 11/08/16 18:00 O2 Sat by Pulse Oximetry (%) 95 11/08/16 09:00 Constitutional: Yes: No Distress, Calm, Other (Pt is more interactive) Cardiovascular: Yes: Regular Rate and Rhythm, S1, S2 Respiratory: Yes: Regular, Rhonchi (scatered at bases) Gastrointestinal: Yes: Normal Bowel Sounds, Soft, Tenderness (minimal- n mid abdomen). No: Tenderness, Rebound Edema: No Labs: CBC, BMP 11/08/16 05:35 11/08/16 05:35 Problem List - Problems (1) Small bowel mass Code(s): K63.89 - OTHER SPECIFIED DISEASES OF INTESTINE (2) SBO (small bowel obstruction) Code(s): K56.69 - OTHER INTESTINAL OBSTRUCTION (3) Pneumatosis intestinalis Code(s): K63.89 - OTHER SPECIFIED DISEASES OF INTESTINE (4) CHF (congestive heart failure) Code(s): I50.9 - HEART FAILURE, UNSPECIFIED (5) CVA (cerebral infarction) Code(s): I63.9 - CEREBRAL INFARCTION, UNSPECIFIED (6) Chronic obstructive pulmonary disease Code(s): J44.9 - CHRONIC OBSTRUCTIVE PULMONARY DISEASE, UNSPECIFIED (7) Hyperlipidemia Code(s): E78.5 - HYPERLIPIDEMIA, UNSPECIFIED (8) Hypokalemia due to inadequate potassium intake Code(s): E87.6 - HYPOKALEMIA (9) Hypophosphatemia Assessment/Plan: to replete IV ( still minimal PO intake); to monitor Code(s): E83.39 - OTHER DISORDERS OF PHOSPHORUS METABOLISM (10) HTN (hypertension) Code(s): I10 - ESSENTIAL (PRIMARY) HYPERTENSION (11) Hypomagnesemia Code(s): E83.42 - HYPOMAGNESEMIA (12) Bandemia Code(s): D72.825 - BANDEMIA (13) Pneumonia Code(s): J18.9 - PNEUMONIA, UNSPECIFIED ORGANISM (14) Bacteremia Code(s): R78.81 - BACTEREMIA (15) Hypoalbuminemia Code(s): E88.09 - OTH DISORDERS OF PLASMA-PROTEIN METABOLISM, NEC Assessment/Plan GI and surgical f/u appreciated post OP day 17 Pt wants his to make medical decisions if he cannot; both daughter agrees with pt. All family's questions were answered Pt is hemodynamically stable. Pt had poor PO intake; pt with N and V for couple of days; NGT was reinserted again; pt removed NGT, now NPO except meds.; to f/u with Sx. Pt with + BCX, LLL PNA On IV abtx- readjusted per BCX Replace Ph. Pt tolerates PO meds Labetalol IVP, PRN, for better BP and HR control Pt on TPN. Pt. is s/p left PICC Line placement. To change Robitussin to scheduled status AM labs. Prognosis: reserved. Case was d/w pt's nurse. Time spent for managing pt's care: 35 min.
[2016-11-08] MEDS: ATORVASTATIN CA 40 MG TABLET (FP) PO SCH (22:54)
[2016-11-08] MEDS: EYE OU SCH (23:24)
[2016-11-08] MEDS: TRAVATAN 0.004% OU SCH (23:24)
[2016-11-08] MEDS: FAT EMULSIONS 250 ML IV SCH (23:25)
[2016-11-09] MEDS: METOCLOPRAMIDE HCL INJECTION 10 MG/2 ML VIAL IVPB SCH ×4 (03:00→21:38)
[2016-11-09] MEDS: CEFAZOLIN (PRE-DOCKED) 50 ML IVPB SCH ×3 (03:00→18:31)
[2016-11-09] MEDS: LABETALOL HCL 5 MG/1 ML (100MG/20 ML VIAL) IVPUSH SCH ×4 (04:00→21:14)
[2016-11-09] MEDS: guaiFENesin/D-METHORPHAN HB 10 ML UNIT-DOSE CUPS PO SCH ×5 (06:17→21:47)
[2016-11-09] MEDS: INSULIN SLIDING SCALE (NOVOLOG) 1 VIAL SQ SCH ×2 (06:18→18:31)
[2016-11-09] MEDS: HEPARIN NA (PORCINE) 5,000 UNITS/ML 1ML VIAL SQ SCH ×3 (06:18→21:39)
[2016-11-09 07:45] LABS: ANION GAP 6 (8-16); CALCIUM 8.3 mg/dL (8.5-10.1); CO2 29 mmol/L (21-32); CREATININE 0.5 mg/dL (0.7-1.3); GLUCOSE,RANDOM 184 mg/dL (74-106); MAGNESIUM 2.1 mg/dL (1.8-2.4); PHOSPHOROUS 2.4 mg/dL (2.5-4.9)
[2016-11-09] MEDS: SYSTANE ULTRA EYE DROPS OU SCH ×2 (10:41→21:40)
[2016-11-09] MEDS: amLODIPine BESYLATE 5 MG TABLET (FP) PO SCH (10:41)
[2016-11-09] MEDS: ACLIDINIUM BROMIDE 400 MCG/INH AERO.POWD IH SCH ×2 (10:42→21:39)
[2016-11-09] MEDS: PANTOPRAZOLE SODIUM 100 ML IVPB SCH (10:42)
--- NOTE | 2016-11-09 10:46 | PN ---
Progress Note, Physician History of Present Illness: PUYLMONARY ALERT,NAD,-RESP DISTRESS - Current Medication List Current Medications: Active Medications Aclidinium [place] (Tudorza -) 1 puff IH BID [facility] Last Admin: 11/08/16 23:25 Dose: 1 puff Amlodipine Besylate (Norvasc -) 5 mg PO DAILY [facility] Last Admin: 11/08/16 09:02 Dose: 5 mg Atorvastatin Calcium (Lipitor -) 40 mg PO HS [facility] Last Admin: 11/08/16 22:54 Dose: 40 mg Guaifenesin (Robitussin Dm -) 10 ml PO Q4HWA [facility] Last Admin: 11/09/16 06:17 Dose: Not Given Heparin Sodium (Porcine) (Heparin -) 5,000 unit SQ TID [facility] Last Admin: 11/09/16 06:18 Dose: 5,000 unit IV Flush (Picc Line Flush) 8 ml IVPUSH PRN PRN PRN Reason: Protocol Fat Emulsion Intravenous (Intralipid -) 250 mls @ 20.833 mls/hr IV DAILY@2200 [facility] Last Admin: 11/08/16 23:25 Dose: 20.833 mls/hr Pantoprazole Sodium (Protonix 40mg Ivpb (Pre-Docked)) 100 mls @ 200 mls/hr IVPB DAILY [facility] Last Admin: 11/08/16 09:03 Dose: 200 mls/hr Cefazolin Sodium (Ancef 1gm Ivpb (Pre-Docked)) 50 mls @ 100 mls/hr IVPB Q8H-IV [facility] Last Admin: 11/09/16 03:00 Dose: 100 mls/hr Potassium Chloride 40 meq/Potassium Phosphate 30 mm/Sodium Chloride 50 meq/ Magnesium Sulfate 1.97 gm/Folic Acid 1 mg/ Thiamine HCl 100 mg/ Multivitamins/ Minerals 10 ml/ Chromium/Copper/Manganese/Seleni/Zn 1 ml/Sterile Water/ Amino Acids/Dextrose 1,500 mls @ 62.5 mls/hr IVPB DAILY@1600 [facility] Last Admin: 11/08/16 17:39 Dose: 62.5 mls/hr Insulin Aspart (Novolog Vial Sliding Scale -) 1 vial SQ BIDAC [facility] PRN Reason: Protocol Last Admin: 11/09/16 06:18 Dose: 2 units Labetalol HCl (Normodyne Injection -) 10 mg IVPUSH Q6H-IV [facility] Last Admin: 11/09/16 04:00 Dose: 10 mg Metoclopramide HCl (Reglan Injection -) 10 mg IVPB Q6H-IV [facility] Last Admin: 11/09/16 03:00 Dose: 10 mg Morphine Sulfate (Morphine Injection -) 2 mg IVPUSH Q4H PRN PRN Reason: PAIN LEVEL 1-5 Last Admin: 11/06/16 02:13 Dose: 2 mg Morphine Sulfate (Morphine Injection -) 4 mg IVPUSH Q4H PRN PRN Reason: PAIN LEVEL 6-10 Last Admin: 11/06/16 21:36 Dose: 4 mg Travatan 0.004% Eye (Drops) 1 each OU HS [facility] Last Admin: 11/08/16 23:24 Dose: 1 each Systane Ultra Eye (Drops) 1 each OU BID [facility] Last Admin: 11/08/16 23:24 Dose: 1 each Ondansetron HCl (Zofran Injection) 8 mg IVPB Q6H PRN PRN Reason: NAUSEA AND/OR VOMITING - Objective Vital Signs: Vital Signs Temperature 99.2 F 11/09/16 06:00 Pulse Rate 90 11/09/16 06:00 Respiratory Rate 22 11/09/16 06:00 Blood Pressure 142/80 11/09/16 06:00 O2 Sat by Pulse Oximetry (%) 95 11/08/16 09:00 Constitutional: Yes: Well Nourished, Calm Eyes: Yes: WNL HENT: Yes: WNL Neck: Yes: WNL Cardiovascular: Yes: Regular Rate and Rhythm, S1, S2 Respiratory: Yes: CTA Bilaterally Gastrointestinal: Yes: Normal Bowel Sounds, Soft Extremities: Yes: WNL Edema: No Labs: CBC, BMP 11/08/16 05:35 11/09/16 05:35 Problem List - Problems (1) Hyperlipidemia Code(s): E78.5 - HYPERLIPIDEMIA, UNSPECIFIED (2) Hypoalbuminemia Code(s): E88.09 - OTH DISORDERS OF PLASMA-PROTEIN METABOLISM, NEC (3) Hypophosphatemia Code(s): E83.39 - OTHER DISORDERS OF PHOSPHORUS METABOLISM (4) Hypothyroid Code(s): E03.9 - HYPOTHYROIDISM, UNSPECIFIED (5) Ileus following gastrointestinal surgery Code(s): K91.3 - POSTPROCEDURAL INTESTINAL OBSTRUCTION (6) PSVT (paroxysmal supraventricular tachycardia) Code(s): I47.1 - SUPRAVENTRICULAR TACHYCARDIA (7) Pneumatosis intestinalis Code(s): K63.89 - OTHER SPECIFIED DISEASES OF INTESTINE (8) SBO (small bowel obstruction) Code(s): K56.69 - OTHER INTESTINAL OBSTRUCTION (9) CHF (congestive heart failure) Code(s): I50.9 - HEART FAILURE, UNSPECIFIED (10) CVA (cerebral infarction) Code(s): I63.9 - CEREBRAL INFARCTION, UNSPECIFIED (11) HTN (hypertension) Code(s): I10 - ESSENTIAL (PRIMARY) HYPERTENSION Assessment/Plan ASSESSMENT AND PLAN: 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
--- NOTE | 2016-11-09 14:39 | PN ---
Progress Note, Physician History of Present Illness: 81 year old man with a history of HTN, HLD, COPD, CVA, AAA admitted with abdominal discomfort and constipation concerning for SBO. Pt seen and examined today in nad. He states that he had multiple small BM's yesterday and overnight. denies any current abd pain. denies chest pain, sob, palpitations. no pnd, orthopnea, or LE edema. NG tube in place. PMH LE angio 02/21/2015 Dr. 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 08/10/2014 Dr Alcazar PCI LCx 09/20/2014 Dr Alcazar Medical History Reviewed Condition Date Treating Physician Comments Claudication, intermittent HTN Hyperlipidemia TIA/CVA - Current Medication List Current Medications: Active Medications Aclidinium [place] (Tudorza -) 1 puff IH BID [facility] Last Admin: 11/09/16 10:42 Dose: 1 puff Amlodipine Besylate (Norvasc -) 5 mg PO DAILY [facility] Last Admin: 11/09/16 10:41 Dose: 5 mg Atorvastatin Calcium (Lipitor -) 40 mg PO HS [facility] Last Admin: 11/08/16 22:54 Dose: 40 mg Guaifenesin (Robitussin Dm -) 10 ml PO Q4HWA [facility] Last Admin: 11/09/16 10:41 Dose: 10 ml Heparin Sodium (Porcine) (Heparin -) 5,000 unit SQ TID [facility] Last Admin: 11/09/16 06:18 Dose: 5,000 unit IV Flush (Picc Line Flush) 8 ml IVPUSH PRN PRN PRN Reason: Protocol Fat Emulsion Intravenous (Intralipid -) 250 mls @ 20.833 mls/hr IV DAILY@2200 [facility] Last Admin: 11/08/16 23:25 Dose: 20.833 mls/hr Pantoprazole Sodium (Protonix 40mg Ivpb (Pre-Docked)) 100 mls @ 200 mls/hr IVPB DAILY [facility] Last Admin: 11/09/16 10:42 Dose: 200 mls/hr Cefazolin Sodium (Ancef 1gm Ivpb (Pre-Docked)) 50 mls @ 100 mls/hr IVPB Q8H-IV [facility] Last Admin: 11/09/16 10:40 Dose: 100 mls/hr Potassium Chloride 40 meq/Potassium Phosphate 30 mm/Sodium Chloride 50 meq/ Magnesium Sulfate 1.97 gm/Folic Acid 1 mg/ Thiamine HCl 100 mg/ Multivitamins/ Minerals 10 ml/ Chromium/Copper/Manganese/Seleni/Zn 1 ml/Sterile Water/ Amino Acids/Dextrose 1,500 mls @ 62.5 mls/hr IVPB DAILY@1600 [facility] Last Admin: 11/08/16 17:39 Dose: 62.5 mls/hr Insulin Aspart (Novolog Vial Sliding Scale -) 1 vial SQ BIDAC [facility] PRN Reason: Protocol Last Admin: 11/09/16 06:18 Dose: 2 units Labetalol HCl (Normodyne Injection -) 10 mg IVPUSH Q6H-IV [facility] Last Admin: 11/09/16 09:00 Dose: Not Given Metoclopramide HCl (Reglan Injection -) 10 mg IVPB Q6H-IV [facility] Last Admin: 11/09/16 10:41 Dose: 10 mg Travatan 0.004% Eye (Drops) 1 each OU HS [facility] Last Admin: 11/08/16 23:24 Dose: 1 each Systane Ultra Eye (Drops) 1 each OU BID [facility] Last Admin: 11/09/16 10:41 Dose: 1 each Ondansetron HCl (Zofran Injection) 8 mg IVPB Q6H PRN PRN Reason: NAUSEA AND/OR VOMITING - Objective Vital Signs: Vital Signs Temperature 98.4 F 11/09/16 09:00 Pulse Rate 90 11/09/16 10:55 Respiratory Rate 20 11/09/16 09:00 Blood Pressure 150/80 11/09/16 09:00 O2 Sat by Pulse Oximetry (%) 92 L 11/09/16 10:55 Eyes: Yes: WNL, Conjunctiva Clear, EOM Intact HENT: Yes: WNL, Atraumatic, Normocephalic Neck: Yes: WNL, Supple, Trachea Midline Cardiovascular: Yes: WNL, Regular Rate and Rhythm Respiratory: Yes: WNL, Regular, CTA Bilaterally Gastrointestinal: Yes: Tenderness Genitourinary: Yes: WNL Musculoskeletal: Yes: WNL Extremities: Yes: WNL Edema: No Integumentary: Yes: WNL Neurological: Yes: WNL, Alert, Oriented ...Motor Strength: WNL Psychiatric: Yes: WNL Labs: CBC, BMP 11/08/16 05:35 11/09/16 05:35 Assessment/Plan - Problems (1) Diastolic CHF Assessment/Plan: continue present medications (would increase amlodipine to 10 mg daily for HTN; metoprolol changed to labetolol due to HTN; would change back to metoprolol once BP controlled due to PSVT). Increase amlodipine; f/u BP. See "HTN". F/u Is and Os, daily weight, BUN/Cr, electrolytes. Physical rehabilitation. Code(s): I50.30 - UNSPECIFIED DIASTOLIC (CONGESTIVE) HEART FAILURE (2) Hyperlipidemia Assessment/Plan: On atorvastatin; keep LDL cholesterol < 70 mg/dL. Code(s): E78.5 - HYPERLIPIDEMIA, UNSPECIFIED (3) PSVT (paroxysmal supraventricular tachycardia) Assessment/Plan: On labetolol IVP for BP; would change to metoprolol for PSVT and BP. Code(s): I47.1 - SUPRAVENTRICULAR TACHYCARDIA (4) SBO (small bowel obstruction) Assessment/Plan: f/u with surgeon Code(s): K56.69 - OTHER INTESTINAL OBSTRUCTION (5) Small bowel mass Code(s): K63.89 - OTHER SPECIFIED DISEASES OF INTESTINE (6) HTN (hypertension) Assessment/Plan: Now again on labetolol. On amlodipine; Consider adding ACEI, ARB (hypokalemic), if diuretic added, guard against further electrolyte depletion. Serial BP and HR checks. Code(s): I10 - ESSENTIAL (PRIMARY) HYPERTENSION (7) Weakness Code(s): R53.1 - WEAKNESS (8) Hypothyroid Assessment/Plan: decreased TSH; free T4 mildly elevated. Code(s): E03.9 - HYPOTHYROIDISM, UNSPECIFIED (9) Confusion Assessment/Plan: head CT: no acute pathology. more alert. F/u with neurologist. Code(s): R41.0 - DISORIENTATION, UNSPECIFIED (10) Hypokalemia Assessment/Plan: Keep K+ 4-4.5 (hx PSVT); presently hypokalemic. Keep Mg 2-2.3 Keep Po4 2.5-3.5. Consider adding ACEI or ARB for BP; may increase K. Code(s): E87.6 - HYPOKALEMIA (11) Bacteremia Assessment/Plan: for PICC line insertion. Code(s): R78.81 - BACTEREMIA Assessment/Plan cc time spent reviewing chart, examining pt, and writing note: 35 minutes.
--- NOTE | 2016-11-09 15:13 | PN ---
Progress Note (short form) - Note Progress Note: awake, much more alert today +BM still eating poorly he is s/p small bowel resection 10/21 Vital Signs Period Temp Pulse Resp BP Sys/Hernandez Pulse Ox Last 24 Hr 97 F-99.2 F 90-99 18-22 142-166/68-86 92 cor-rrr lungs decreased bs at bases abd soft,nt, flat ext +blisters left forearm, induration right forearm CBC, BMP 11/08/16 05:35 11/09/16 05:35 Microbiology 11/04/16 16:20 Blood Culture - Preliminary Blood - Peripheral Venous NO GROWTH OBTAINED AFTER 96 HOURS, INCUBATION TO CONTINUE FOR 1 DAYS. 11/04/16 16:15 Blood Culture - Preliminary Blood - Peripheral Venous NO GROWTH OBTAINED AFTER 96 HOURS, INCUBATION TO CONTINUE FOR [address] scan no abscess/collections cxray LLL infiltrate Active Medications Aclidinium [place] (Tudorza -) 1 puff IH BID [facility] Last Admin: 11/09/16 10:42 Dose: 1 puff Amlodipine Besylate (Norvasc -) 10 mg PO DAILY [facility] Atorvastatin Calcium (Lipitor -) 40 mg PO HS [facility] Last Admin: 11/08/16 22:54 Dose: 40 mg Guaifenesin (Robitussin Dm -) 10 ml PO Q4HWA [facility] Last Admin: 11/09/16 10:41 Dose: 10 ml Heparin Sodium (Porcine) (Heparin -) 5,000 unit SQ TID [facility] Last Admin: 11/09/16 06:18 Dose: 5,000 unit IV Flush (Picc Line Flush) 8 ml IVPUSH PRN PRN PRN Reason: Protocol Fat Emulsion Intravenous (Intralipid -) 250 mls @ 20.833 mls/hr IV DAILY@2200 [facility] Last Admin: 11/08/16 23:25 Dose: 20.833 mls/hr Pantoprazole Sodium (Protonix 40mg Ivpb (Pre-Docked)) 100 mls @ 200 mls/hr IVPB DAILY [facility] Last Admin: 11/09/16 10:42 Dose: 200 mls/hr Cefazolin Sodium (Ancef 1gm Ivpb (Pre-Docked)) 50 mls @ 100 mls/hr IVPB Q8H-IV [facility] Last Admin: 11/09/16 10:40 Dose: 100 mls/hr Potassium Chloride 40 meq/Potassium Phosphate 30 mm/Sodium Chloride 50 meq/ Magnesium Sulfate 1.97 gm/Folic Acid 1 mg/ Thiamine HCl 100 mg/ Multivitamins/ Minerals 10 ml/ Chromium/Copper/Manganese/Seleni/Zn 1 ml/Sterile Water/ Amino Acids/Dextrose 1,500 mls @ 62.5 mls/hr IVPB DAILY@1600 [facility] Last Admin: 11/08/16 17:39 Dose: 62.5 mls/hr Insulin Aspart (Novolog Vial Sliding Scale -) 1 vial SQ BIDAC [facility] PRN Reason: Protocol Last Admin: 11/09/16 06:18 Dose: 2 units Labetalol HCl (Normodyne Injection -) 10 mg IVPUSH Q6H-IV [facility] Last Admin: 11/09/16 09:00 Dose: Not Given Metoclopramide HCl (Reglan Injection -) 10 mg IVPB Q6H-IV [facility] Last Admin: 11/09/16 10:41 Dose: 10 mg Travatan 0.004% Eye (Drops) 1 each OU HS [facility] Last Admin: 11/08/16 23:24 Dose: 1 each Systane Ultra Eye (Drops) 1 each OU BID [facility] Last Admin: 11/09/16 10:41 Dose: 1 each Ondansetron HCl (Zofran Injection) 8 mg IVPB Q6H PRN PRN Reason: NAUSEA AND/OR VOMITING a/p Klebsiella bacteremia- day #8 of 10 iv antibiotics- ancef pneumonia LLL s/p small bowel resection s/p small bowel resection 10/21 d/w Dr Delcid will sign off please call back with questions Problem List - Problems (1) Pneumatosis intestinalis Code(s): K63.89 - OTHER SPECIFIED DISEASES OF INTESTINE (2) SBO (small bowel obstruction) Code(s): K56.69 - OTHER INTESTINAL OBSTRUCTION
--- NOTE | 2016-11-09 16:14 | PN ---
Progress Note, Physician History of Present Illness: Pt was transferred from ICU to Telemetry Post op day 18 Pt removed NGT. Pt is was advanced to clear liquids Pt with cough and productive yellow sputum, states that is better this AM Pt without N, V; pt has minimal abdominal pain Pt w/o fever, chills. Pt w/o CP, SOB, Palp. Pt tolerates "a little" Ensure Pt was seen and examined in AM - Current Medication List Current Medications: Active Medications Aclidinium [place] (Tudorza -) 1 puff IH BID [facility] Last Admin: 11/09/16 10:42 Dose: 1 puff Amlodipine Besylate (Norvasc -) 10 mg PO DAILY [facility] Atorvastatin Calcium (Lipitor -) 40 mg PO HS [facility] Last Admin: 11/08/16 22:54 Dose: 40 mg Guaifenesin (Robitussin Dm -) 10 ml PO Q4HWA [facility] Last Admin: 11/09/16 15:13 Dose: 10 ml Heparin Sodium (Porcine) (Heparin -) 5,000 unit SQ TID [facility] Last Admin: 11/09/16 15:13 Dose: 5,000 unit IV Flush (Picc Line Flush) 8 ml IVPUSH PRN PRN PRN Reason: Protocol Fat Emulsion Intravenous (Intralipid -) 250 mls @ 20.833 mls/hr IV DAILY@2200 [facility] Last Admin: 11/08/16 23:25 Dose: 20.833 mls/hr Pantoprazole Sodium (Protonix 40mg Ivpb (Pre-Docked)) 100 mls @ 200 mls/hr IVPB DAILY [facility] Last Admin: 11/09/16 10:42 Dose: 200 mls/hr Cefazolin Sodium (Ancef 1gm Ivpb (Pre-Docked)) 50 mls @ 100 mls/hr IVPB Q8H-IV [facility] Last Admin: 11/09/16 10:40 Dose: 100 mls/hr Potassium Chloride 40 meq/Potassium Phosphate 30 mm/Sodium Chloride 50 meq/ Magnesium Sulfate 1.97 gm/Folic Acid 1 mg/ Thiamine HCl 100 mg/ Multivitamins/ Minerals 10 ml/ Chromium/Copper/Manganese/Seleni/Zn 1 ml/Sterile Water/ Amino Acids/Dextrose 1,500 mls @ 62.5 mls/hr IVPB DAILY@1600 [facility] Last Admin: 11/08/16 17:39 Dose: 62.5 mls/hr Insulin Aspart (Novolog Vial Sliding Scale -) 1 vial SQ BIDAC [facility] PRN Reason: Protocol Last Admin: 11/09/16 06:18 Dose: 2 units Labetalol HCl (Normodyne Injection -) 10 mg IVPUSH Q6H-IV [facility] Last Admin: 11/09/16 15:07 Dose: Not Given Metoclopramide HCl (Reglan Injection -) 10 mg IVPB Q6H-IV [facility] Last Admin: 11/09/16 15:13 Dose: 10 mg Travatan 0.004% Eye (Drops) 1 each OU HS [facility] Last Admin: 11/08/16 23:24 Dose: 1 each Systane Ultra Eye (Drops) 1 each OU BID [facility] Last Admin: 11/09/16 10:41 Dose: 1 each Ondansetron HCl (Zofran Injection) 8 mg IVPB Q6H PRN PRN Reason: NAUSEA AND/OR VOMITING - Objective Vital Signs: Vital Signs Temperature 98 F 11/09/16 14:20 Pulse Rate 97 H 11/09/16 14:20 Respiratory Rate 20 11/09/16 14:20 Blood Pressure 144/72 11/09/16 14:20 O2 Sat by Pulse Oximetry (%) 92 L 11/09/16 10:55 Constitutional: Yes: No Distress, Calm Cardiovascular: Yes: Regular Rate and Rhythm, S1, S2 Respiratory: Yes: Regular, Rales (at bases only) Gastrointestinal: Yes: Normal Bowel Sounds, Hypoactive Bowel Sounds, Tenderness (minimal) Extremities: Yes: Other (right forearm blisters) Edema: No Labs: CBC, BMP 11/08/16 05:35 11/09/16 05:35 Problem List - Problems (1) Small bowel mass Code(s): K63.89 - OTHER SPECIFIED DISEASES OF INTESTINE (2) SBO (small bowel obstruction) Code(s): K56.69 - OTHER INTESTINAL OBSTRUCTION (3) Pneumatosis intestinalis Code(s): K63.89 - OTHER SPECIFIED DISEASES OF INTESTINE (4) CHF (congestive heart failure) Code(s): I50.9 - HEART FAILURE, UNSPECIFIED (5) CVA (cerebral infarction) Code(s): I63.9 - CEREBRAL INFARCTION, UNSPECIFIED (6) Chronic obstructive pulmonary disease Code(s): J44.9 - CHRONIC OBSTRUCTIVE PULMONARY DISEASE, UNSPECIFIED (7) Hyperlipidemia Code(s): E78.5 - HYPERLIPIDEMIA, UNSPECIFIED (8) Hypokalemia due to inadequate potassium intake Code(s): E87.6 - HYPOKALEMIA (9) Hypophosphatemia Code(s): E83.39 - OTHER DISORDERS OF PHOSPHORUS METABOLISM (10) HTN (hypertension) Code(s): I10 - ESSENTIAL (PRIMARY) HYPERTENSION (11) Hypomagnesemia Code(s): E83.42 - HYPOMAGNESEMIA (12) Bandemia Code(s): D72.825 - BANDEMIA (13) Pneumonia Code(s): J18.9 - PNEUMONIA, UNSPECIFIED ORGANISM (14) Bacteremia Code(s): R78.81 - BACTEREMIA (15) Hypoalbuminemia Code(s): E88.09 - OTH DISORDERS OF PLASMA-PROTEIN METABOLISM, NEC Assessment/Plan GI and surgical f/u appreciated post OP day 18 Pt wants his to make medical decisions if he cannot; both daughter agrees with pt. All family's questions were answered Pt is hemodynamically stable. Pt had poor PO intake; pt with N and V for couple of days; NGT was reinserted again; pt removed NGT, now NPO except meds.; to f/u with Sx. Pt with + BCX, LLL PNA On IV abtx- readjusted per BCX, case was d/w Dr. Bernal Replace Ph, to monitor Pt tolerates PO meds Labetalol IVP, PRN, for better BP and HR control Pt on TPN. Pt. is s/p left PICC Line placement; pt removed it. To change Robitussin to scheduled status AM labs. Prognosis: reserved. Case was d/w pt's nurse. Family at bedside
[2016-11-09] MEDS ORDERED: POTASSIUM PHOSPHATE 30 MM in SODIUM CHLORIDE 250 ML IVPB ONE (16:30)
[2016-11-09] MEDS ORDERED: PT OWN MED DRAWER 7, Y5N ONE (18:24)
[2016-11-09] MEDS: SODIUM CHLORIDE IVPB SCH (18:31)
[2016-11-09] MEDS: POTASSIUM PHOSPHATE IVPB SCH (18:31)
[2016-11-09] MEDS: POTASSIUM CHLORIDE IVPB SCH (18:31)
[2016-11-09] MEDS: [UNRECOGNIZED DRUG - OTHER] IVPB SCH (18:31)
[2016-11-09] MEDS: FAT EMULSIONS 250 ML IV SCH (21:38)
[2016-11-09] MEDS: ATORVASTATIN CA 40 MG TABLET (FP) PO SCH (21:39)
[2016-11-09] MEDS: EYE OU SCH (21:40)
[2016-11-09] MEDS: TRAVATAN 0.004% OU SCH (21:40)
[2016-11-10] MEDS: CEFAZOLIN (PRE-DOCKED) 50 ML IVPB SCH ×3 (02:54→17:35)
[2016-11-10] MEDS: LABETALOL HCL 5 MG/1 ML (100MG/20 ML VIAL) IVPUSH SCH (03:15)
[2016-11-10] MEDS: METOCLOPRAMIDE HCL INJECTION 10 MG/2 ML VIAL IVPB SCH ×4 (03:15→21:48)
[2016-11-10] MEDS: HEPARIN NA (PORCINE) 5,000 UNITS/ML 1ML VIAL SQ SCH ×3 (05:54→21:49)
[2016-11-10] MEDS: guaiFENesin/D-METHORPHAN HB 10 ML UNIT-DOSE CUPS PO SCH ×5 (05:54→21:50)
[2016-11-10] MEDS: INSULIN SLIDING SCALE (NOVOLOG) 1 VIAL SQ SCH ×2 (06:22→16:37)
[2016-11-10 08:23] LABS: ANION GAP 9 (8-16); BILIRUBIN,TOTAL 0.8 mg/dL (0.2-1.0); CALCIUM 8.5 mg/dL (8.5-10.1); CO2 26 mmol/L (21-32); CREATININE 0.5 mg/dL (0.7-1.3); GLUCOSE,RANDOM 135 mg/dL (74-106); MAGNESIUM 2.2 mg/dL (1.8-2.4); PHOSPHOROUS 2.8 mg/dL (2.5-4.9); SGOT/AST 119 U/L (15-37); SGPT/ALT 134 U/L (12-78); TOT PROT 5.6 g/dl (6.4-8.2)
[2016-11-10 08:24] LABS: ALK PHOS 122 U/L (45-117)
--- NOTE | 2016-11-10 09:31 | PN ---
Progress Note, Physician History of Present Illness: 81 year old man with a history of HTN, HLD, COPD, CVA, AAA admitted with abdominal discomfort and constipation concerning for SBO. Pt seen and examined today in nad. He states that he had multiple small BM's yesterday and overnight. denies any current abd pain. denies chest pain, sob, palpitations. no pnd, orthopnea, or LE edema. NG tube in place. 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 08/10/2014 Dr Alcazar PCI LCx 09/20/2014 Dr Alcazar Medical History Reviewed Condition Date Treating Physician Comments Claudication, intermittent HTN Hyperlipidemia TIA/CVA - Current Medication List Current Medications: Active Medications Aclidinium [place] (Tudorza -) 1 puff IH BID [facility] Last Admin: 11/09/16 21:39 Dose: 1 puff Amlodipine Besylate (Norvasc -) 10 mg PO DAILY [facility] Atorvastatin Calcium (Lipitor -) 40 mg PO HS [facility] Last Admin: 11/09/16 21:39 Dose: 40 mg Guaifenesin (Robitussin Dm -) 10 ml PO Q4HWA [facility] Last Admin: 11/10/16 05:54 Dose: 10 ml Heparin Sodium (Porcine) (Heparin -) 5,000 unit SQ TID [facility] Last Admin: 11/10/16 05:54 Dose: 5,000 unit IV Flush (Picc Line Flush) 8 ml IVPUSH PRN PRN PRN Reason: Protocol Fat Emulsion Intravenous (Intralipid -) 250 mls @ 20.833 mls/hr IV DAILY@2200 [facility] Last Admin: 11/09/16 21:38 Dose: 20.833 mls/hr Pantoprazole Sodium (Protonix 40mg Ivpb (Pre-Docked)) 100 mls @ 200 mls/hr IVPB DAILY [facility] Last Admin: 11/09/16 10:42 Dose: 200 mls/hr Cefazolin Sodium (Ancef 1gm Ivpb (Pre-Docked)) 50 mls @ 100 mls/hr IVPB Q8H-IV [facility] Last Admin: 11/10/16 02:54 Dose: 100 mls/hr Potassium Chloride 40 meq/Potassium Phosphate 30 mm/Sodium Chloride 50 meq/ Magnesium Sulfate 1.97 gm/Folic Acid 1 mg/ Thiamine HCl 100 mg/ Multivitamins/ Minerals 10 ml/ Chromium/Copper/Manganese/Seleni/Zn 1 ml/Sterile Water/ Amino Acids/Dextrose 1,500 mls @ 62.5 mls/hr IVPB DAILY@1600 [facility] Last Admin: 11/09/16 18:31 Dose: 62.5 mls/hr Insulin Aspart (Novolog Vial Sliding Scale -) 1 vial SQ BIDAC [facility] PRN Reason: Protocol Last Admin: 11/10/16 06:22 Dose: 2 units Labetalol HCl (Normodyne Injection -) 10 mg IVPUSH Q6H-IV [facility] Last Admin: 11/10/16 03:15 Dose: 10 mg Metoclopramide HCl (Reglan Injection -) 10 mg IVPB Q6H-IV [facility] Last Admin: 11/10/16 03:15 Dose: 10 mg Travatan 0.004% Eye (Drops) 1 each OU HS [facility] Last Admin: 11/09/16 21:40 Dose: 1 each Systane Ultra Eye (Drops) 1 each OU BID [facility] Last Admin: 11/09/16 21:40 Dose: 1 each Ondansetron HCl (Zofran Injection) 8 mg IVPB Q6H PRN PRN Reason: NAUSEA AND/OR VOMITING - Objective Vital Signs: Vital Signs Temperature 98.5 F 11/10/16 08:56 Pulse Rate 92 H 11/10/16 08:56 Respiratory Rate 20 11/10/16 08:56 Blood Pressure 150/86 11/10/16 08:56 O2 Sat by Pulse Oximetry (%) 94 L 11/09/16 21:00 Eyes: Yes: WNL, Conjunctiva Clear, EOM Intact HENT: Yes: WNL, Atraumatic, Normocephalic Neck: Yes: WNL, Supple, Trachea Midline Cardiovascular: Yes: Pulse Irregular, S1, S2 Respiratory: Yes: WNL, Regular, CTA Bilaterally Gastrointestinal: Yes: WNL, Normal Bowel Sounds Genitourinary: Yes: WNL Musculoskeletal: Yes: WNL Extremities: Yes: WNL Edema: No Integumentary: Yes: WNL Neurological: Yes: WNL, Alert, Oriented ...Motor Strength: WNL Psychiatric: Yes: WNL Labs: CBC, BMP 11/08/16 05:35 11/10/16 05:48 Assessment/Plan - Problems (1) Diastolic CHF Assessment/Plan: continue present medications (would increase amlodipine to 10 mg daily for HTN; metoprolol changed to labetolol due to HTN; would change back to metoprolol once BP controlled due to PSVT). Increase amlodipine; f/u BP. See "HTN". F/u Is and Os, daily weight, BUN/Cr, electrolytes. Physical rehabilitation. Code(s): I50.30 - UNSPECIFIED DIASTOLIC (CONGESTIVE) HEART FAILURE (2) Hyperlipidemia Assessment/Plan: On atorvastatin; keep LDL cholesterol < 70 mg/dL. Code(s): E78.5 - HYPERLIPIDEMIA, UNSPECIFIED (3) PSVT (paroxysmal supraventricular tachycardia) Assessment/Plan: On labetolol IVP for BP; would change to metoprolol for PSVT and BP. Code(s): I47.1 - SUPRAVENTRICULAR TACHYCARDIA (4) SBO (small bowel obstruction) Assessment/Plan: f/u with surgeon Code(s): K56.69 - OTHER INTESTINAL OBSTRUCTION (5) Small bowel mass Code(s): K63.89 - OTHER SPECIFIED DISEASES OF INTESTINE (6) HTN (hypertension) Assessment/Plan: Now again on labetolol. On amlodipine; Consider adding ACEI, ARB (hypokalemic), if diuretic added, guard against further electrolyte depletion. Serial BP and HR checks. Code(s): I10 - ESSENTIAL (PRIMARY) HYPERTENSION (7) Weakness Code(s): R53.1 - WEAKNESS (8) Hypothyroid Assessment/Plan: decreased TSH; free T4 mildly elevated. Code(s): E03.9 - HYPOTHYROIDISM, UNSPECIFIED (9) Confusion Assessment/Plan: head CT: no acute pathology. more alert. F/u with neurologist. Code(s): R41.0 - DISORIENTATION, UNSPECIFIED (10) Hypokalemia Assessment/Plan: Keep K+ 4-4.5 (hx PSVT); presently hypokalemic. Keep Mg 2-2.3 Keep Po4 2.5-3.5. Consider adding ACEI or ARB for BP; may increase K. Code(s): E87.6 - HYPOKALEMIA (11) Bacteremia Assessment/Plan: for PICC line insertion. Code(s): R78.81 - BACTEREMIA d/c telemetry
--- NOTE | 2016-11-10 09:38 | PN ---
Progress Note, Physician History of Present Illness: PULMONARY ALERT,NAD,-SOB - Current Medication List Current Medications: Active Medications Aclidinium [place] (Tudorza -) 1 puff IH BID [facility] Last Admin: 11/09/16 21:39 Dose: 1 puff Amlodipine Besylate (Norvasc -) 10 mg PO DAILY [facility] Atorvastatin Calcium (Lipitor -) 40 mg PO HS [facility] Last Admin: 11/09/16 21:39 Dose: 40 mg Guaifenesin (Robitussin Dm -) 10 ml PO Q4HWA [facility] Last Admin: 11/10/16 05:54 Dose: 10 ml Heparin Sodium (Porcine) (Heparin -) 5,000 unit SQ TID [facility] Last Admin: 11/10/16 05:54 Dose: 5,000 unit IV Flush (Picc Line Flush) 8 ml IVPUSH PRN PRN PRN Reason: Protocol Fat Emulsion Intravenous (Intralipid -) 250 mls @ 20.833 mls/hr IV DAILY@2200 [facility] Last Admin: 11/09/16 21:38 Dose: 20.833 mls/hr Pantoprazole Sodium (Protonix 40mg Ivpb (Pre-Docked)) 100 mls @ 200 mls/hr IVPB DAILY [facility] Last Admin: 11/09/16 10:42 Dose: 200 mls/hr Cefazolin Sodium (Ancef 1gm Ivpb (Pre-Docked)) 50 mls @ 100 mls/hr IVPB Q8H-IV [facility] Last Admin: 11/10/16 02:54 Dose: 100 mls/hr Potassium Chloride 40 meq/Potassium Phosphate 30 mm/Sodium Chloride 50 meq/ Magnesium Sulfate 1.97 gm/Folic Acid 1 mg/ Thiamine HCl 100 mg/ Multivitamins/ Minerals 10 ml/ Chromium/Copper/Manganese/Seleni/Zn 1 ml/Sterile Water/ Amino Acids/Dextrose 1,500 mls @ 62.5 mls/hr IVPB DAILY@1600 [facility] Last Admin: 11/09/16 18:31 Dose: 62.5 mls/hr Insulin Aspart (Novolog Vial Sliding Scale -) 1 vial SQ BIDAC [facility] PRN Reason: Protocol Last Admin: 11/10/16 06:22 Dose: 2 units Metoclopramide HCl (Reglan Injection -) 10 mg IVPB Q6H-IV [facility] Last Admin: 11/10/16 03:15 Dose: 10 mg Metoprolol Tartrate (Lopressor -) 50 mg PO BID [facility] Travatan 0.004% Eye (Drops) 1 each OU HS [facility] Last Admin: 11/09/16 21:40 Dose: 1 each Systane Ultra Eye (Drops) 1 each OU BID [facility] Last Admin: 11/09/16 21:40 Dose: 1 each Ondansetron HCl (Zofran Injection) 8 mg IVPB Q6H PRN PRN Reason: NAUSEA AND/OR VOMITING - Objective Vital Signs: Vital Signs Temperature 98.5 F 11/10/16 08:56 Pulse Rate 92 H 11/10/16 08:56 Respiratory Rate 20 11/10/16 08:56 Blood Pressure 150/86 11/10/16 08:56 O2 Sat by Pulse Oximetry (%) 94 L 11/09/16 21:00 Constitutional: Yes: Well Nourished, Calm Eyes: Yes: WNL HENT: Yes: WNL Neck: Yes: WNL Cardiovascular: Yes: Regular Rate and Rhythm, S1, S2 Respiratory: Yes: Diminished Gastrointestinal: Yes: Normal Bowel Sounds, Soft Extremities: Yes: WNL Edema: No Labs: CBC, BMP Problem List - Problems (1) Hyperlipidemia Code(s): E78.5 - HYPERLIPIDEMIA, UNSPECIFIED (2) Hypoalbuminemia Code(s): E88.09 - OTH DISORDERS OF PLASMA-PROTEIN METABOLISM, NEC (3) Hypophosphatemia Code(s): E83.39 - OTHER DISORDERS OF PHOSPHORUS METABOLISM (4) Hypothyroid Code(s): E03.9 - HYPOTHYROIDISM, UNSPECIFIED (5) Ileus following gastrointestinal surgery Code(s): K91.3 - POSTPROCEDURAL INTESTINAL OBSTRUCTION (6) PSVT (paroxysmal supraventricular tachycardia) Code(s): I47.1 - SUPRAVENTRICULAR TACHYCARDIA (7) Pneumatosis intestinalis Code(s): K63.89 - OTHER SPECIFIED DISEASES OF INTESTINE (8) SBO (small bowel obstruction) Code(s): K56.69 - OTHER INTESTINAL OBSTRUCTION (9) CHF (congestive heart failure) Code(s): I50.9 - HEART FAILURE, UNSPECIFIED (10) CVA (cerebral infarction) Code(s): I63.9 - CEREBRAL INFARCTION, UNSPECIFIED (11) HTN (hypertension) Code(s): I10 - ESSENTIAL (PRIMARY) HYPERTENSION Assessment/Plan ASSESSMENT AND PLAN: 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
[2016-11-10] MEDS: D5-NS + 20 MEQ KCL - 1,000 ML IV SCH (10:21)
[2016-11-10] MEDS: PANTOPRAZOLE SODIUM 100 ML IVPB SCH (10:23)
[2016-11-10] MEDS: ACLIDINIUM BROMIDE 400 MCG/INH AERO.POWD IH SCH ×2 (10:24→21:50)
[2016-11-10] MEDS: amLODIPine BESYLATE 10 MG TABLET (FP) PO SCH (10:24)
[2016-11-10] MEDS: METOPROLOL TARTRATE 50 MG TABLET (FP) PO SCH ×2 (10:24→21:49)
[2016-11-10] MEDS: SYSTANE ULTRA EYE DROPS OU SCH ×2 (10:25→21:48)
--- NOTE | 2016-11-10 11:52 | PN ---
Progress Note, Physician History of Present Illness: Pt was transferred from ICU to Telemetry Post op day 19 Pt removed NGT. Pt is was advanced to clear liquids Pt with cough and productive yellow sputum, states that is better this AM Pt without N, V; pt has minimal abdominal pain Pt w/o fever, chills. Pt w/o CP, SOB, Palp. Pt tolerates some Ensure Pt was seen and examined in AM - Current Medication List Current Medications: Active Medications Aclidinium [place] (Tudorza -) 1 puff IH BID [facility] Last Admin: 11/10/16 10:24 Dose: 1 puff Amlodipine Besylate (Norvasc -) 10 mg PO DAILY [facility] Last Admin: 11/10/16 10:24 Dose: 10 mg Atorvastatin Calcium (Lipitor -) 40 mg PO HS [facility] Last Admin: 11/09/16 21:39 Dose: 40 mg Guaifenesin (Robitussin Dm -) 10 ml PO Q4HWA [facility] Last Admin: 11/10/16 10:24 Dose: 10 ml Heparin Sodium (Porcine) (Heparin -) 5,000 unit SQ TID [facility] Last Admin: 11/10/16 05:54 Dose: 5,000 unit IV Flush (Picc Line Flush) 8 ml IVPUSH PRN PRN PRN Reason: Protocol Fat Emulsion Intravenous (Intralipid -) 250 mls @ 20.833 mls/hr IV DAILY@2200 [facility] Last Admin: 11/09/16 21:38 Dose: 20.833 mls/hr Pantoprazole Sodium (Protonix 40mg Ivpb (Pre-Docked)) 100 mls @ 200 mls/hr IVPB DAILY [facility] Last Admin: 11/10/16 10:23 Dose: 200 mls/hr Cefazolin Sodium (Ancef 1gm Ivpb (Pre-Docked)) 50 mls @ 100 mls/hr IVPB Q8H-IV [facility] Last Admin: 11/10/16 10:23 Dose: 100 mls/hr Potassium Chloride 40 meq/Potassium Phosphate 30 mm/Sodium Chloride 50 meq/ Magnesium Sulfate 1.97 gm/Folic Acid 1 mg/ Thiamine HCl 100 mg/ Multivitamins/ Minerals 10 ml/ Chromium/Copper/Manganese/Seleni/Zn 1 ml/Sterile Water/ Amino Acids/Dextrose 1,500 mls @ 62.5 mls/hr IVPB DAILY@1600 [facility] Last Admin: 11/09/16 18:31 Dose: 62.5 mls/hr Insulin Aspart (Novolog Vial Sliding Scale -) 1 vial SQ BIDAC [facility] PRN Reason: Protocol Last Admin: 11/10/16 06:22 Dose: 2 units Metoclopramide HCl (Reglan Injection -) 10 mg IVPB Q6H-IV [facility] Last Admin: 11/10/16 10:24 Dose: 10 mg Metoprolol Tartrate (Lopressor -) 50 mg PO BID [facility] Last Admin: 11/10/16 10:24 Dose: 50 mg Travatan 0.004% Eye (Drops) 1 each OU HS [facility] Last Admin: 11/09/16 21:40 Dose: 1 each Systane Ultra Eye (Drops) 1 each OU BID [facility] Last Admin: 11/10/16 10:25 Dose: 1 each Ondansetron HCl (Zofran Injection) 8 mg IVPB Q6H PRN PRN Reason: NAUSEA AND/OR VOMITING - Objective Vital Signs: Vital Signs Temperature 98.5 F 11/10/16 08:56 Pulse Rate 92 H 11/10/16 08:56 Respiratory Rate 20 11/10/16 08:56 Blood Pressure 150/86 11/10/16 08:56 O2 Sat by Pulse Oximetry (%) 94 L 11/09/16 21:00 Constitutional: Yes: No Distress, Calm Cardiovascular: Yes: Regular Rate and Rhythm, S1, S2 Respiratory: Yes: Regular, Other (corse BS bilat.) Gastrointestinal: Yes: Normal Bowel Sounds, Soft, Hypoactive Bowel Sounds, Tenderness. No: Tenderness, Rebound Edema: No Neurological: Yes: Alert, Oriented Labs: CBC, BMP 11/08/16 05:35 11/10/16 05:48 Problem List - Problems (1) Small bowel mass Code(s): K63.89 - OTHER SPECIFIED DISEASES OF INTESTINE (2) SBO (small bowel obstruction) Code(s): K56.69 - OTHER INTESTINAL OBSTRUCTION (3) Pneumatosis intestinalis Code(s): K63.89 - OTHER SPECIFIED DISEASES OF INTESTINE (4) CHF (congestive heart failure) Code(s): I50.9 - HEART FAILURE, UNSPECIFIED (5) CVA (cerebral infarction) Code(s): I63.9 - CEREBRAL INFARCTION, UNSPECIFIED (6) Chronic obstructive pulmonary disease Code(s): J44.9 - CHRONIC OBSTRUCTIVE PULMONARY DISEASE, UNSPECIFIED (7) Hyperlipidemia Code(s): E78.5 - HYPERLIPIDEMIA, UNSPECIFIED (8) Hypokalemia due to inadequate potassium intake Code(s): E87.6 - HYPOKALEMIA (9) Hypophosphatemia Code(s): E83.39 - OTHER DISORDERS OF PHOSPHORUS METABOLISM (10) HTN (hypertension) Code(s): I10 - ESSENTIAL (PRIMARY) HYPERTENSION (11) Hypomagnesemia Code(s): E83.42 - HYPOMAGNESEMIA (12) Bandemia Code(s): D72.825 - BANDEMIA (13) Pneumonia Code(s): J18.9 - PNEUMONIA, UNSPECIFIED ORGANISM (14) Bacteremia Code(s): R78.81 - BACTEREMIA (15) Hypoalbuminemia Code(s): E88.09 - OTH DISORDERS OF PLASMA-PROTEIN METABOLISM, NEC Assessment/Plan GI and surgical f/u appreciated post OP day 19 Pt wants his to make medical decisions if he cannot; both daughter agrees with pt. All family's questions were answered Pt is hemodynamically stable. Pt had poor PO intake; pt with N and V for couple of days; NGT was reinserted again; pt removed NGT, now NPO except meds.; to f/u with Sx. Pt with + BCX, LLL PNA On IV abtx- readjusted per BCX. Replace Ph, to monitor Pt tolerates PO meds Pt off TPN. Pt. is s/p left PICC Line placement; pt removed it. To change Robitussin to scheduled status. To MARTHA vieyra, monitor UO AM labs. Prognosis: reserved. Case was d/w pt's nurse.
[2016-11-10] MEDS ORDERED: D5-NS + 20 MEQ KCL - 1,000 ML IV SCH (13:30)
[2016-11-10] MEDS ORDERED: PT OWN MED DRAWER 7, Y5N ONE (14:00)
[2016-11-10] MEDS ORDERED: PICC LINE 8 ML FLUSH PROTOCOL IVPUSH PRN (19:47)
[2016-11-10] MEDS ORDERED: ONDANSETRON 4 MG/2 ML VIAL IVPB PRN (19:47)
[2016-11-10] MEDS: TRAVATAN 0.004% OU SCH (21:48)
[2016-11-10] MEDS: EYE OU SCH (21:48)
[2016-11-10] MEDS ORDERED: ATORVASTATIN CA 40 MG TABLET (FP) PO SCH (22:00)
[2016-11-11] MEDS: METOCLOPRAMIDE HCL INJECTION 10 MG/2 ML VIAL IVPB SCH ×4 (03:22→22:01)
[2016-11-11] MEDS: guaiFENesin/D-METHORPHAN HB 10 ML UNIT-DOSE CUPS PO SCH ×5 (06:22→22:11)
[2016-11-11] MEDS: HEPARIN NA (PORCINE) 5,000 UNITS/ML 1ML VIAL SQ SCH ×3 (06:22→22:01)
[2016-11-11] MEDS: INSULIN SLIDING SCALE (NOVOLOG) 1 VIAL SQ SCH ×2 (06:25→18:43)
[2016-11-11] MEDS ORDERED: PT OWN MED DRAWER 7, Y5N ONE ×2 (06:59→09:46)
[2016-11-11 08:12] LABS: ANION GAP 8 (8-16); CALCIUM 8.5 mg/dL (8.5-10.1); CO2 26 mmol/L (21-32); GLUCOSE,RANDOM 125 mg/dL (74-106)
[2016-11-11 08:17] LABS: ALK PHOS 124 U/L (45-117); CREATININE 0.5 mg/dL (0.7-1.3); SGOT/AST 121 U/L (15-37); SGPT/ALT 148 U/L (12-78); TOT PROT 5.7 g/dl (6.4-8.2)
[2016-11-11] MEDS: METOPROLOL TARTRATE 50 MG TABLET (FP) PO SCH ×2 (09:45→22:02)
[2016-11-11] MEDS: amLODIPine BESYLATE 10 MG TABLET (FP) PO SCH (09:45)
[2016-11-11] MEDS: SYSTANE ULTRA EYE DROPS OU SCH ×2 (09:48→22:02)
[2016-11-11] MEDS: ACLIDINIUM BROMIDE 400 MCG/INH AERO.POWD IH SCH ×2 (10:15→22:04)
--- NOTE | 2016-11-11 10:30 | PN ---
Progress Note, Physician History of Present Illness: 81 year old man with a history of HTN, HLD, COPD, CVA, AAA admitted with abdominal discomfort and constipation concerning for SBO. Pt seen and examined today in nad. He states that he had multiple small BM's yesterday and overnight. denies any current abd pain. denies chest pain, sob, palpitations. no pnd, orthopnea, or LE edema. NG tube in place. PMH LE angio 02/21/2015 Dr. 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 DCB 08/10/2014 Dr Alcazar PCI LCx 09/20/2014 Dr Alcazar Medical History Reviewed Condition Date Treating Physician Comments Claudication, intermittent HTN Hyperlipidemia TIA/CVA - Current Medication List Current Medications: Active Medications Aclidinium [place] (Tudorza -) 1 puff IH BID [facility] Last Admin: 11/11/16 10:15 Dose: 1 puff Amlodipine Besylate (Norvasc -) 10 mg PO DAILY [facility] Last Admin: 11/11/16 09:45 Dose: 10 mg Atorvastatin Calcium (Lipitor -) 40 mg PO HS [facility] Last Admin: 11/10/16 21:49 Dose: 40 mg Guaifenesin (Robitussin Dm -) 10 ml PO Q4HWA [facility] Last Admin: 11/11/16 10:12 Dose: 10 ml Heparin Sodium (Porcine) (Heparin -) 5,000 unit SQ TID [facility] Last Admin: 11/11/16 06:22 Dose: 5,000 unit IV Flush (Picc Line Flush) 8 ml IVPUSH PRN PRN PRN Reason: Protocol Dextrose/Sodium Chloride (Dextrose 5%-Normal Saline+20 Meq Kcl -) 1,000 mls @ 75 mls/hr IV ASDIR [facility] Last Admin: 11/10/16 10:21 Dose: 75 mls/hr Insulin Aspart (Novolog Vial Sliding Scale -) 1 vial SQ BIDAC [facility] PRN Reason: Protocol Last Admin: 11/11/16 06:25 Dose: Not Given Metoclopramide HCl (Reglan Injection -) 10 mg IVPB Q6H-IV [facility] Last Admin: 11/11/16 09:45 Dose: 10 mg Metoprolol Tartrate (Lopressor -) 50 mg PO BID [facility] Last Admin: 11/11/16 09:45 Dose: 50 mg Systane Ultra Eye (Drops) 1 each OU BID [facility] Last Admin: 11/11/16 09:48 Dose: 1 each Travatan 0.004% Eye (Drops) 1 each OU HS [facility] Last Admin: 11/10/16 21:48 Dose: 1 each Ondansetron HCl (Zofran Injection) 8 mg IVPB Q6H PRN PRN Reason: NAUSEA AND/OR VOMITING - Objective Vital Signs: Vital Signs Temperature 98.6 F 11/11/16 06:00 Pulse Rate 84 11/11/16 06:00 Respiratory Rate 18 11/11/16 06:00 Blood Pressure 159/82 11/11/16 06:00 O2 Sat by Pulse Oximetry (%) 95 11/10/16 21:00 Eyes: Yes: WNL, Conjunctiva Clear, EOM Intact HENT: Yes: WNL, Atraumatic, Normocephalic Neck: Yes: WNL, Supple, Trachea Midline Cardiovascular: Yes: WNL, Regular Rate and Rhythm Respiratory: Yes: WNL, Regular, CTA Bilaterally Gastrointestinal: Yes: WNL, Normal Bowel Sounds Genitourinary: Yes: WNL Musculoskeletal: Yes: WNL Extremities: Yes: WNL Edema: No Integumentary: Yes: WNL Neurological: Yes: WNL, Alert, Oriented ...Motor Strength: WNL Psychiatric: Yes: WNL Labs: CBC, BMP 11/08/16 05:35 11/11/16 06:10 Assessment/Plan - Problems (1) Diastolic CHF Assessment/Plan: continue present medications (would increase amlodipine to 10 mg daily for HTN; metoprolol changed to labetolol due to HTN; would change back to metoprolol once BP controlled due to PSVT). Increase amlodipine; f/u BP. See "HTN". F/u Is and Os, daily weight, BUN/Cr, electrolytes. Physical rehabilitation. Code(s): I50.30 - UNSPECIFIED DIASTOLIC (CONGESTIVE) HEART FAILURE (2) Hyperlipidemia Assessment/Plan: On atorvastatin; keep LDL cholesterol < 70 mg/dL. Code(s): E78.5 - HYPERLIPIDEMIA, UNSPECIFIED (3) PSVT (paroxysmal supraventricular tachycardia) Assessment/Plan: On labetolol IVP for BP; would change to metoprolol for PSVT and BP. Code(s): I47.1 - SUPRAVENTRICULAR TACHYCARDIA (4) SBO (small bowel obstruction) Assessment/Plan: f/u with surgeon Code(s): K56.69 - OTHER INTESTINAL OBSTRUCTION (5) Small bowel mass Code(s): K63.89 - OTHER SPECIFIED DISEASES OF INTESTINE (6) HTN (hypertension) Assessment/Plan: Now again on labetolol. On amlodipine; Consider adding ACEI, ARB (hypokalemic), if diuretic added, guard against further electrolyte depletion. Serial BP and HR checks. Code(s): I10 - ESSENTIAL (PRIMARY) HYPERTENSION (7) Weakness Code(s): R53.1 - WEAKNESS (8) Hypothyroid Assessment/Plan: decreased TSH; free T4 mildly elevated. Code(s): E03.9 - HYPOTHYROIDISM, UNSPECIFIED (9) Confusion Assessment/Plan: head CT: no acute pathology. more alert. F/u with neurologist. Code(s): R41.0 - DISORIENTATION, UNSPECIFIED (10) Hypokalemia Assessment/Plan: Keep K+ 4-4.5 (hx PSVT); presently hypokalemic. Keep Mg 2-2.3 Keep Po4 2.5-3.5. Consider adding ACEI or ARB for BP; may increase K. Code(s): E87.6 - HYPOKALEMIA (11) Bacteremia Assessment/Plan: for PICC line insertion. Code(s): R78.81 - BACTEREMIA d/c telemetry
--- NOTE | 2016-11-11 10:54 | PN ---
Progress Note (short form) - Note Progress Note: PULMONARY STANDING WITH ASSISTANCE OF TWO VSS/AFEBRILE ANICTERIC DIMINISHED DIFFUSE BREATH SOUNDS/LEFT BASE CRACKLES S1S2 ABD POST SURGICAL/WOUND CLEAN/DRY NO EDEMA LABS./MEDS/NOTES/IMAGING/PATH REVIEWED Acute respiratory distress resolved Small Bowel Obstruction s/p ex-lap path: no malignancy noted COPD HTN Hyperlipidemia CHF h/o CVA CONTINUE ABS/O2/BRONCHODILATORS SUPPORTIVE CARE SURGICAL F/U R IRIS MARRERO
--- NOTE | 2016-11-11 12:54 | PN ---
Progress Note (short form) - Note Progress Note: surgery pt seen and examined. tolerating some liquids. another bm. no pain. no nausea afebrile abd- soft, nt, incision clean Plan- cont diet. tpn per medical team if not enough po intake. may require peg at some point. no mechanical sbo.
--- NOTE | 2016-11-11 12:54 | PN ---
Progress Note, Physician History of Present Illness: Pt was transferred from ICU to Telemetry Post op day 20 Pt removed NGT. Pt is was advanced to clear liquids Pt with cough and productive yellow sputum, states that is better this AM Pt without N, V; pt has minimal abdominal pain Pt w/o fever, chills. Pt w/o CP, SOB, Palp. Pt tolerates some Ensure; he is afraid to eat or drink - Current Medication List Current Medications: Active Medications Aclidinium [place] (Tudorza -) 1 puff IH BID [facility] Last Admin: 11/11/16 10:15 Dose: 1 puff Amlodipine Besylate (Norvasc -) 10 mg PO DAILY [facility] Last Admin: 11/11/16 09:45 Dose: 10 mg Guaifenesin (Robitussin Dm -) 10 ml PO Q4HWA [facility] Last Admin: 11/11/16 10:12 Dose: 10 ml Heparin Sodium (Porcine) (Heparin -) 5,000 unit SQ TID [facility] Last Admin: 11/11/16 06:22 Dose: 5,000 unit IV Flush (Picc Line Flush) 8 ml IVPUSH PRN PRN PRN Reason: Protocol Dextrose/Sodium Chloride (Dextrose 5%-Normal Saline+20 Meq Kcl -) 1,000 mls @ 75 mls/hr IV ASDIR [facility] Last Admin: 11/10/16 10:21 Dose: 75 mls/hr Insulin Aspart (Novolog Vial Sliding Scale -) 1 vial SQ BIDAC [facility] PRN Reason: Protocol Last Admin: 11/11/16 06:25 Dose: Not Given Metoclopramide HCl (Reglan Injection -) 10 mg IVPB Q6H-IV [facility] Last Admin: 11/11/16 09:45 Dose: 10 mg Metoprolol Tartrate (Lopressor -) 50 mg PO BID [facility] Last Admin: 11/11/16 09:45 Dose: 50 mg Systane Ultra Eye (Drops) 1 each OU BID [facility] Last Admin: 11/11/16 09:48 Dose: 1 each Travatan 0.004% Eye (Drops) 1 each OU HS [facility] Last Admin: 11/10/16 21:48 Dose: 1 each Ondansetron HCl (Zofran Injection) 8 mg IVPB Q6H PRN PRN Reason: NAUSEA AND/OR VOMITING - Objective Vital Signs: Vital Signs Temperature 98.8 F 11/11/16 10:00 Pulse Rate 94 H 11/11/16 11:57 Respiratory Rate 18 11/11/16 10:00 Blood Pressure 134/71 11/11/16 10:00 O2 Sat by Pulse Oximetry (%) 94 L 11/11/16 11:57 Constitutional: Yes: No Distress, Calm Cardiovascular: Yes: Regular Rate and Rhythm, S1, S2 Respiratory: Yes: Regular, Other (coarse BS bilat). No: Rales Gastrointestinal: Yes: Normal Bowel Sounds, Soft, Tenderness (around surgical site). No: Tenderness, Rebound Edema: No Neurological: Yes: Alert, Oriented Labs: CBC, BMP 11/08/16 05:35 11/11/16 06:10 LFTs noted Problem List - Problems (1) Small bowel mass Assessment/Plan: noticed on the latest CT scan. s/p SB tumor resection; pathology report: NO malignancy Code(s): K63.89 - OTHER SPECIFIED DISEASES OF INTESTINE (2) SBO (small bowel obstruction) Assessment/Plan: s/p SX- intestinal resection Code(s): K56.69 - OTHER INTESTINAL OBSTRUCTION (3) Pneumatosis intestinalis Code(s): K63.89 - OTHER SPECIFIED DISEASES OF INTESTINE (4) CHF (congestive heart failure) Code(s): I50.9 - HEART FAILURE, UNSPECIFIED (5) CVA (cerebral infarction) Code(s): I63.9 - CEREBRAL INFARCTION, UNSPECIFIED (6) Chronic obstructive pulmonary disease Code(s): J44.9 - CHRONIC OBSTRUCTIVE PULMONARY DISEASE, UNSPECIFIED (7) Hyperlipidemia Code(s): E78.5 - HYPERLIPIDEMIA, UNSPECIFIED (8) Hypokalemia due to inadequate potassium intake Code(s): E87.6 - HYPOKALEMIA (9) Hypophosphatemia Code(s): E83.39 - OTHER DISORDERS OF PHOSPHORUS METABOLISM (10) HTN (hypertension) Code(s): I10 - ESSENTIAL (PRIMARY) HYPERTENSION (11) Hypomagnesemia Code(s): E83.42 - HYPOMAGNESEMIA (12) Bandemia Code(s): D72.825 - BANDEMIA (13) Pneumonia Code(s): J18.9 - PNEUMONIA, UNSPECIFIED ORGANISM (14) Bacteremia Code(s): R78.81 - BACTEREMIA (15) Hypoalbuminemia Code(s): E88.09 - H DISORDERS OF PLASMA-PROTEIN METABOLISM, NEC (16) Elevated LFTs Assessment/Plan: recall GI for evaluation Code(s): R79.89 - OTHER SPECIFIED ABNORMAL FINDINGS OF BLOOD CHEMISTRY Assessment/Plan GI and surgical f/u appreciated post OP day 20 Pt wants his to make medical decisions if he cannot; both daughter agrees with pt. All family's questions were answered Pt is hemodynamically stable. Pt had poor PO intake; pt with N and V for couple of days; NGT was reinserted again; pt removed NGT, now NPO except meds.; to f/u with Sx. Pt with + BCX, LLL PNA On IV abtx- readjusted per BCX. Replace Ph, to monitor Pt tolerates PO meds Pt off TPN. Pt. is s/p left PICC Line placement; pt removed it. To change Robitussin to scheduled status. To DC vieyra, monitor UO I encourage PO intake- full liquids for now, so pt would gain confidence AM labs. Prognosis: reserved- improving. Case was d/w pt's nurse.
--- NOTE | 2016-11-11 13:13 | PN ---
GI Progress Note Subjective: Called to evaluate elevated liver chemistries Says appetite slowly improving describes abdominal pain that comes and goes - Objective Vital Signs: Vital Signs Temperature 98.8 F 11/11/16 10:00 Pulse Rate 94 H 11/11/16 11:57 Respiratory Rate 18 11/11/16 10:00 Blood Pressure 134/71 11/11/16 10:00 O2 Sat by Pulse Oximetry (%) 94 L 11/11/16 11:57 Constitutional: Calm Eyes: No: Sclera Icterus Cardiovascular: Yes: Regular Rate and Rhythm Respiratory: Yes: CTA Bilaterally Gastrointestinal Inspection: Yes: Scars (healed vertical surgical scar). No: Distention ...Auscultate: Yes: Normoactive Bowel Sounds ...Palpate: Yes: Tenderness (TTP diffusely) ...Percussion: No: Tympanitic Edema: No Neurological: Yes: Alert Labs: CBC, BMP 11/08/16 05:35 11/11/16 06:10 Hepatic Panel Total Bilirubin 1.0 mg/dL (0.2-1.0) D 11/11/16 06:10 Direct Bilirubin 0.3 mg/dL (0.0-0.2) H D 10/31/16 05:10 AST 121 U/L (15-37) H 11/11/16 06:10 ALT 148 U/L (12-78) H 11/11/16 06:10 Alkaline Phosphatase 124 U/L (45-117) H 11/11/16 06:10 Albumin 2.0 g/dl (3.4-5.0) L 11/11/16 06:10 Problem List - Problems (1) SBO (small bowel obstruction) Assessment/Plan: S/P small bowel resection with slow recovery of bowel function Code(s): K56.69 - OTHER INTESTINAL OBSTRUCTION (2) Elevated LFTs Assessment/Plan: Unclear etiology. ? reactive from PPN, recent Abx, still on statin or possibly from reglan I D/C'd statin consider D/C of reglan. Reglan aids in motility of proximal GI tract, not distal / mid small bowel Abdominal US ordered Hepatitis serologies ordered Code(s): R79.89 - OTHER SPECIFIED ABNORMAL FINDINGS OF BLOOD CHEMISTRY (3) Abdominal pain Assessment/Plan: Significant abdominal tenderness elicited on current Ordered repeat CT scan with PO/IV contrast Code(s): R10.9 - UNSPECIFIED ABDOMINAL PAIN
[2016-11-11] MEDS: EYE OU SCH (22:04)
[2016-11-11] MEDS: TRAVATAN 0.004% OU SCH (22:04)
[2016-11-11] MEDS: D5-NS + 20 MEQ KCL - 1,000 ML IV SCH (22:05)
[2016-11-12] MEDS: D5-NS + 20 MEQ KCL - 1,000 ML IV SCH ×2 (02:26→23:30)
[2016-11-12] MEDS: METOCLOPRAMIDE HCL INJECTION 10 MG/2 ML VIAL IVPB SCH ×4 (02:27→20:52)
[2016-11-12] MEDS: HEPARIN NA (PORCINE) 5,000 UNITS/ML 1ML VIAL SQ SCH ×3 (06:32→21:00)
[2016-11-12] MEDS: INSULIN SLIDING SCALE (NOVOLOG) 1 VIAL SQ SCH ×2 (06:33→17:50)
[2016-11-12] MEDS: guaiFENesin/D-METHORPHAN HB 10 ML UNIT-DOSE CUPS PO SCH ×5 (08:25→21:03)
[2016-11-12 08:42] LABS: ALBUMIN 1.9 g/dl (3.4-5.0); ALK PHOS 114 U/L (45-117); ANION GAP 9 (8-16); BILIRUBIN,TOTAL 0.8 mg/dL (0.2-1.0); CALCIUM 8.7 mg/dL (8.5-10.1); CO2 26 mmol/L (21-32); CREATININE 0.6 mg/dL (0.7-1.3); GLUCOSE,RANDOM 129 mg/dL (74-106); SGOT/AST 92 U/L (15-37); SGPT/ALT 130 U/L (12-78); TOT PROT 5.4 g/dl (6.4-8.2)
[2016-11-12] MEDS: amLODIPine BESYLATE 10 MG TABLET (FP) PO SCH (09:42)
[2016-11-12] MEDS: METOPROLOL TARTRATE 50 MG TABLET (FP) PO SCH ×2 (09:42→21:00)
[2016-11-12] MEDS: ACLIDINIUM BROMIDE 400 MCG/INH AERO.POWD IH SCH ×2 (09:43→21:03)
[2016-11-12] MEDS: SYSTANE ULTRA EYE DROPS OU SCH ×2 (09:45→21:01)
--- NOTE | 2016-11-12 10:24 | PN ---
GI Progress Note Subjective: Sitting up in wheelchair, states feeling ok Had abd US: no acute pathology Had CT scan w/ IV contrast: AAA with thick mural thrombus as well as dilated small bowel loops and overdistended urinary bladder - Objective Vital Signs: Vital Signs Temperature 99.6 F 11/12/16 06:00 Pulse Rate 99 H 11/12/16 06:00 Respiratory Rate 18 11/12/16 06:00 Blood Pressure 154/79 11/12/16 06:00 O2 Sat by Pulse Oximetry (%) 96 11/11/16 21:00 Constitutional: Calm Eyes: No: Sclera Icterus Cardiovascular: Yes: Regular Rate and Rhythm Respiratory: Yes: CTA Bilaterally Gastrointestinal Inspection: No: Distention ...Auscultate: Yes: Normoactive Bowel Sounds ...Palpate: Yes: Tenderness (improved from yesterday's evaluation) Edema: No Labs: CBC, BMP 11/08/16 05:35 11/12/16 06:00 Hepatic Panel Total Bilirubin 0.8 mg/dL (0.2-1.0) 11/12/16 06:00 Direct Bilirubin 0.3 mg/dL (0.0-0.2) H D 10/31/16 05:10 AST 92 U/L (15-37) H D 11/12/16 06:00 ALT 130 U/L (12-78) H 11/12/16 06:00 Alkaline Phosphatase 114 U/L (45-117) 11/12/16 06:00 Albumin 1.9 g/dl (3.4-5.0) L 11/12/16 06:00 Problem List - Problems (1) SBO (small bowel obstruction) Assessment/Plan: Continued dilated small bowel loops ? continued ileus or mechanical from surgical site Surgical f/u Code(s): K56.69 - OTHER INTESTINAL OBSTRUCTION (2) Elevated LFTs Assessment/Plan: Normal appearing US Stopped statin Consider stopping reglan Monitor LFTs hepatitis serologies pending Code(s): R79.89 - OTHER SPECIFIED ABNORMAL FINDINGS OF BLOOD CHEMISTRY (3) Abdominal aortic aneurysm (AAA) Assessment/Plan: with thick mural thrombus noted on CT scan Consider vascular surgery f/u Code(s): I71.4 - ABDOMINAL AORTIC ANEURYSM, WITHOUT RUPTURE (4) Distended bladder Assessment/Plan: advised nurse to bladder scan and discuss with you further. may need vieyra catheter Code(s): N32.89 - OTHER SPECIFIED DISORDERS OF BLADDER
--- NOTE | 2016-11-12 12:36 | PN ---
Progress Note, Physician Chief Complaint: Pt denies chest or abdominal pain. History of Present Illness: 81-year-old black male with no history of abdominal surgery presents to the emergency department complaining of periumbilical 6/10 sharp nonradiating intermittent discomfort with nausea no vomiting, fever, chills, chest pain, shortness of breath, flank pains, urinary symptoms. There are no alleviating or exacerbating factors. Last bowel movement 4 days ago. - Current Medication List Current Medications: Active Medications Aclidinium [place] (Tudorza -) 1 puff IH BID [facility] Last Admin: 11/12/16 09:43 Dose: 1 puff Amlodipine Besylate (Norvasc -) 10 mg PO DAILY [facility] Last Admin: 11/12/16 09:42 Dose: 10 mg Guaifenesin (Robitussin Dm -) 10 ml PO Q4HWA [facility] Last Admin: 11/12/16 09:43 Dose: 10 ml Heparin Sodium (Porcine) (Heparin -) 5,000 unit SQ TID [facility] Last Admin: 11/12/16 06:32 Dose: 5,000 unit IV Flush (Picc Line Flush) 8 ml IVPUSH PRN PRN PRN Reason: Protocol Dextrose/Sodium Chloride (Dextrose 5%-Normal Saline+20 Meq Kcl -) 1,000 mls @ 75 mls/hr IV ASDIR [facility] Last Admin: 11/12/16 02:26 Dose: Not Given Insulin Aspart (Novolog Vial Sliding Scale -) 1 vial SQ BIDAC [facility] PRN Reason: Protocol Last Admin: 11/12/16 06:33 Dose: Not Given Metoclopramide HCl (Reglan Injection -) 10 mg IVPB Q6H-IV [facility] Last Admin: 11/12/16 09:42 Dose: 10 mg Metoprolol Tartrate (Lopressor -) 50 mg PO BID [facility] Last Admin: 11/12/16 09:42 Dose: 50 mg Systane Ultra Eye (Drops) 1 each OU BID [facility] Last Admin: 11/12/16 09:45 Dose: 1 each Travatan 0.004% Eye (Drops) 1 each OU HS [facility] Last Admin: 11/11/16 22:04 Dose: 1 each Ondansetron HCl (Zofran Injection) 8 mg IVPB Q6H PRN PRN Reason: NAUSEA AND/OR VOMITING - Objective Vital Signs: Vital Signs Temperature 99.6 F 11/12/16 06:00 Pulse Rate 99 H 11/12/16 06:00 Respiratory Rate 18 11/12/16 06:00 Blood Pressure 154/79 11/12/16 06:00 O2 Sat by Pulse Oximetry (%) 96 11/11/16 21:00 Constitutional: Yes: No Distress Eyes: Yes: WNL HENT: Yes: WNL Neck: Yes: WNL Labs: CBC, BMP 11/08/16 05:35 11/12/16 06:00 Problem List - Problems (1) Diastolic CHF Assessment/Plan: continue present medications (would increase amlodipine to 10 mg daily for HTN; again on metoprolol, and off labetalol, due to PSVT). Consider spironolactone (diastolic heart failure). Increase amlodipine; f/u BP. See "HTN". F/u Is and Os, daily weight, BUN/Cr, electrolytes. Physical rehabilitation. Code(s): I50.30 - UNSPECIFIED DIASTOLIC (CONGESTIVE) HEART FAILURE (2) Hyperlipidemia Assessment/Plan: On atorvastatin; keep LDL cholesterol < 70 mg/dL. Code(s): E78.5 - HYPERLIPIDEMIA, UNSPECIFIED (3) PSVT (paroxysmal supraventricular tachycardia) Assessment/Plan: On metoprolol. Maintain electrolytes WNL. Code(s): I47.1 - SUPRAVENTRICULAR TACHYCARDIA (4) SBO (small bowel obstruction) Assessment/Plan: F/u of abdominal sonogram and CT noted; f/u with surgeon. Code(s): K56.69 - OTHER INTESTINAL OBSTRUCTION (5) Small bowel mass Code(s): K63.89 - OTHER SPECIFIED DISEASES OF INTESTINE (6) HTN (hypertension) Assessment/Plan: On metoprolol; can change to ER for better 24 hour coverage and compliance. On amlodipine; increased to 5 mg daily, and would now increase to 10 mg daily if BP remains elevated. Consider adding ACEI, ARB (hypokalemic); if diuretic added, guard against further electrolyte depletion. Serial BP and HR checks. Code(s): I10 - ESSENTIAL (PRIMARY) HYPERTENSION (7) Weakness Code(s): R53.1 - WEAKNESS (8) Hypothyroid Assessment/Plan: decreased TSH; free T4 mildly elevated. Code(s): E03.9 - HYPOTHYROIDISM, UNSPECIFIED (9) Hypokalemia Assessment/Plan: Keep K+ 4-4.5 (hx PSVT); Keep Mg 2-2.3 Keep Po4 2.5-3.5. Would add lisinopril for HTN, ?DM (elevated glucose; f/u HGBA1c). Code(s): E87.6 - HYPOKALEMIA (10) Hyperglycemia Assessment/Plan: f/u HGBA1c. Consider adding ACEI for HTN, ?DM, Code(s): R73.9 - HYPERGLYCEMIA, UNSPECIFIED
[2016-11-12] MEDS ORDERED: LIDOCAINE HCL 1%, 10 MG/ML (20ML VIAL) ONE (15:31)
--- NOTE | 2016-11-12 16:53 | CON.GU ---
Consult Consult Specialty:: Referred by:: Zamzam Reason for Consultation:: urinary retention, gross hematuria - History of Present Illness Chief Complaint: urinary retention and gross hematuria History of Present Illness: 81 year old male three weeks S/P colon resection who has been in urinary retention. vieyra was passed with poor drainage and blood clots. 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 - Alcohol/Substance Use Hx Alcohol Use: Yes History of Substance Use: reports: None - Smoking History Smoking history: Former smoker Have you smoked in the past 12 months: No Aproximately how many cigarettes per day: 10 If you are a former smoker, when did you quit?: 2016 - Social History Usual Living Arrangement: With Spouse ADL: Independent Occupation: retired from [employer] History of Recent Travel: No Home Medications - Allergies Allergies/Adverse Reactions: Allergies Allergy/AdvReac Type Severity Reaction Status Date / Time No Known Allergies Allergy Verified 03/02/16 12:36 - Home Medications Home Medications: Ambulatory Orders Atorvastatin Ca [Lipitor] 40 mg PO HS #0 tablet 03/03/13 Amlodipine Besylate [Norvasc -] 5 mg PO DAILY #0 tablet 08/01/13 Clopidogrel Bisulfate [Plavix -] 75 mg PO DAILY #0 tablet 08/01/13 Labetalol HCl [Normodyne -] 200 mg PO BID #0 tablet NS 08/01/13 Furosemide [Lasix -] 20 mg PO DAILY 08/09/15 Aspirin [ASA -] 81 mg PO DAILY 10/16/16 Tiotropium [place] [Spiriva] 1 inh PO BID 10/16/16 Family Disease History - Family Disease History Family Disease History: Heart Disease: Brother (congestive heart failure), Other : Father (lived to 99), Mother (lived to her 70's) Other Family History: No family history of colorectal cancer or other GI malignancy Review of Systems - Review of Systems Genitourinary: reports: Hematuria Physical Exam- Vital Signs: Vital Signs Temperature 98.6 F 11/12/16 15:07 Pulse Rate 80 11/12/16 15:07 Respiratory Rate 18 11/12/16 15:07 Blood Pressure 127/64 11/12/16 15:07 O2 Sat by Pulse Oximetry (%) 96 11/11/16 21:00 Renal/: Yes: Bladder Distention, Hematuria, Incontinence. No: CVA Tenderness - Left, CVA Tenderness - Right, Vieyra Present Labs: CBC, BMP 11/08/16 05:35 11/12/16 06:00 Problem List - Problems (1) Urinary retention due to benign prostatic hyperplasia Assessment/Plan: cystoscopy performed at bedside, catheter passed over a wire. clear output. Code(s): N40.1 - BENIGN PROSTATIC HYPERPLASIA WITH LOWER URINARY TRACT SYMP R33.8 - OTHER RETENTION OF URINE (2) Gross hematuria Code(s): R31.0 - GROSS HEMATURIA
--- NOTE | 2016-11-12 16:54 | PROC ---
Procedure Note Procedure: sterile conditions, flexible cystoscopy performed. false passage seen posterior , distal to bladder neck. wire passed. Bladder was otherwise normal. vieyra cath placed over wire.
[2016-11-12] MEDS ORDERED: morphine CARPU-JECT 2 MG/1 ML DISP.SYRIN IVPUSH ONE (16:55)
--- NOTE | 2016-11-12 19:19 | PN ---
Progress Note, Physician History of Present Illness: Pt was transferred from ICU to Telemetry Post op day 21 Pt removed NGT. Pt is was advanced to clear liquids Pt with cough and productive yellow sputum, states that is better this AM Pt without N, V; pt has minimal abdominal pain Pt w/o fever, chills. Pt w/o CP, SOB, Palp. Pt tolerates some Ensure; he is afraid to eat or drink Events were noticed - Current Medication List Current Medications: Active Medications Aclidinium [place] (Tudorza -) 1 puff IH BID [facility] Last Admin: 11/12/16 09:43 Dose: 1 puff Amlodipine Besylate (Norvasc -) 10 mg PO DAILY [facility] Last Admin: 11/12/16 09:42 Dose: 10 mg Guaifenesin (Robitussin Dm -) 10 ml PO Q4HWA [facility] Last Admin: 11/12/16 17:52 Dose: Not Given Heparin Sodium (Porcine) (Heparin -) 5,000 unit SQ TID [facility] Last Admin: 11/12/16 15:07 Dose: Not Given IV Flush (Picc Line Flush) 8 ml IVPUSH PRN PRN PRN Reason: Protocol Dextrose/Sodium Chloride (Dextrose 5%-Normal Saline+20 Meq Kcl -) 1,000 mls @ 75 mls/hr IV ASDIR [facility] Last Admin: 11/12/16 02:26 Dose: Not Given Insulin Aspart (Novolog Vial Sliding Scale -) 1 vial SQ BIDAC [facility] PRN Reason: Protocol Last Admin: 11/12/16 17:50 Dose: 2 units Metoclopramide HCl (Reglan Injection -) 10 mg IVPB Q6H-IV [facility] Last Admin: 11/12/16 15:28 Dose: 10 mg Metoprolol Tartrate (Lopressor -) 50 mg PO BID [facility] Last Admin: 11/12/16 09:42 Dose: 50 mg Systane Ultra Eye (Drops) 1 each OU BID [facility] Last Admin: 11/12/16 09:45 Dose: 1 each Travatan 0.004% Eye (Drops) 1 each OU HS [facility] Last Admin: 11/11/16 22:04 Dose: 1 each Ondansetron HCl (Zofran Injection) 8 mg IVPB Q6H PRN PRN Reason: NAUSEA AND/OR VOMITING - Objective Vital Signs: Vital Signs Temperature 99.2 F 11/12/16 16:15 Pulse Rate 101 H 11/12/16 16:15 Respiratory Rate 18 11/12/16 16:15 Blood Pressure 160/88 11/12/16 16:15 O2 Sat by Pulse Oximetry (%) 96 11/11/16 21:00 Constitutional: Yes: No Distress, Calm Cardiovascular: Yes: Regular Rate and Rhythm, S1, S2 Respiratory: Yes: Regular, CTA Bilaterally Gastrointestinal: Yes: Normal Bowel Sounds, Soft, Tenderness (in mid abdomen) Edema: No Labs: CBC, BMP 11/08/16 05:35 11/12/16 06:00 Problem List - Problems (1) Small bowel mass Code(s): K63.89 - OTHER SPECIFIED DISEASES OF INTESTINE (2) SBO (small bowel obstruction) Code(s): K56.69 - OTHER INTESTINAL OBSTRUCTION (3) Pneumatosis intestinalis Code(s): K63.89 - OTHER SPECIFIED DISEASES OF INTESTINE (4) CHF (congestive heart failure) Code(s): I50.9 - HEART FAILURE, UNSPECIFIED (5) CVA (cerebral infarction) Code(s): I63.9 - CEREBRAL INFARCTION, UNSPECIFIED (6) Chronic obstructive pulmonary disease Code(s): J44.9 - CHRONIC OBSTRUCTIVE PULMONARY DISEASE, UNSPECIFIED (7) Hyperlipidemia Code(s): E78.5 - HYPERLIPIDEMIA, UNSPECIFIED (8) Hypokalemia due to inadequate potassium intake Code(s): E87.6 - HYPOKALEMIA (9) Hypophosphatemia Code(s): E83.39 - OTHER DISORDERS OF PHOSPHORUS METABOLISM (10) HTN (hypertension) Code(s): I10 - ESSENTIAL (PRIMARY) HYPERTENSION (11) Hypomagnesemia Code(s): E83.42 - HYPOMAGNESEMIA (12) Bandemia Code(s): D72.825 - BANDEMIA (13) Pneumonia Code(s): J18.9 - PNEUMONIA, UNSPECIFIED ORGANISM (14) Hypoalbuminemia Code(s): E88.09 - OTH DISORDERS OF PLASMA-PROTEIN METABOLISM, NEC (15) Elevated LFTs Code(s): R79.89 - OTHER SPECIFIED ABNORMAL FINDINGS OF BLOOD CHEMISTRY (16) Urinary retention Assessment/Plan: Place Chavarria consult Code(s): R33.9 - RETENTION OF URINE, UNSPECIFIED Assessment/Plan GI and surgical f/u appreciated post OP day 21 Pt wants his to make medical decisions if he cannot; both daughter agrees with pt. All family's questions were answered Pt is hemodynamically stable. Pt had poor PO intake; pt with N and V for couple of days; NGT was reinserted again; pt removed NGT, now NPO except meds.; to f/u with Sx. Pt with + BCX, LLL PNA On IV abtx- readjusted per BCX. Pt tolerates PO meds Pt off TPN. Pt. is s/p left PICC Line placement; pt removed it. To change Robitussin to scheduled status. I encourage PO intake- was d/w family at bedside AM labs. Prognosis: reserved- improving. Case was d/w pt's nurse.
[2016-11-12] MEDS: TRAVATAN 0.004% OU SCH (21:02)
[2016-11-12] MEDS: EYE OU SCH (21:02)
[2016-11-13] MEDS: METOCLOPRAMIDE HCL INJECTION 10 MG/2 ML VIAL IVPB SCH ×4 (03:27→21:17)
[2016-11-13 06:06] LABS: HEP B SURFACE AB Reactive (.)
[2016-11-13] MEDS: guaiFENesin/D-METHORPHAN HB 10 ML UNIT-DOSE CUPS PO SCH ×5 (06:27→21:18)
[2016-11-13] MEDS: HEPARIN NA (PORCINE) 5,000 UNITS/ML 1ML VIAL SQ SCH ×3 (06:27→21:17)
[2016-11-13] MEDS: INSULIN SLIDING SCALE (NOVOLOG) 1 VIAL SQ SCH ×2 (06:36→17:40)
--- NOTE | 2016-11-13 08:05 | PN ---
Progress Note (short form) - Note Progress Note: Post bedside procedure day #1 (flexible cysto for vieyra insertion) Resting in position of comfort. Doing well. : vieyra to gravity. hematuria resolved. Problem List - Problems (1) Gross hematuria Assessment/Plan: Vieyra to remain for 5 days Start patient on Flomax 0.4mg (ordered) Code(s): R31.0 - GROSS HEMATURIA
[2016-11-13 08:28] LABS: ALBUMIN 1.9 g/dl (3.4-5.0); ALK PHOS 113 U/L (45-117); ANION GAP 9 (8-16); BILIRUBIN,TOTAL 0.9 mg/dL (0.2-1.0); CALCIUM 8.5 mg/dL (8.5-10.1); CO2 28 mmol/L (21-32); CREATININE 0.5 mg/dL (0.7-1.3); GLUCOSE,RANDOM 164 mg/dL (74-106); SGOT/AST 82 U/L (15-37); SGPT/ALT 131 U/L (12-78); TOT PROT 5.4 g/dl (6.4-8.2)
[2016-11-13] MEDS: ACLIDINIUM BROMIDE 400 MCG/INH AERO.POWD IH SCH ×2 (09:33→21:18)
[2016-11-13] MEDS: amLODIPine BESYLATE 10 MG TABLET (FP) PO SCH (09:33)
[2016-11-13] MEDS: METOPROLOL TARTRATE 50 MG TABLET (FP) PO SCH ×2 (09:33→21:17)
[2016-11-13] MEDS: TAMSULOSIN HCL 0.4 MG CAP.ER.24H (FP) PO SCH (09:33)
[2016-11-13] MEDS: SYSTANE ULTRA EYE DROPS OU SCH ×2 (09:34→21:17)
[2016-11-13] MEDS ORDERED: INSULIN (NOVOLOG) ASPART 100 UNITS/ML 10ML VIAL ONE (11:21)
--- NOTE | 2016-11-13 15:52 | PN ---
Progress Note, Physician Chief Complaint: Pt is lying in bed (was OOB in chair earlier today); speaks softly; denies pain. History of Present Illness: 81-year-old black male with no history of abdominal surgery presents to the emergency department complaining of periumbilical 6/10 sharp nonradiating intermittent discomfort with nausea no vomiting, fever, chills, chest pain, shortness of breath, flank pains, urinary symptoms. There are no alleviating or exacerbating factors. Last bowel movement 4 days ago. - Current Medication List Current Medications: Active Medications Aclidinium [place] (Tudorza -) 1 puff IH BID [facility] Last Admin: 11/13/16 09:33 Dose: 1 puff Amlodipine Besylate (Norvasc -) 10 mg PO DAILY [facility] Last Admin: 11/13/16 09:33 Dose: 10 mg Guaifenesin (Robitussin Dm -) 10 ml PO Q4HWA [facility] Last Admin: 11/13/16 09:35 Dose: 10 ml Heparin Sodium (Porcine) (Heparin -) 5,000 unit SQ TID [facility] Last Admin: 11/13/16 06:27 Dose: 5,000 unit IV Flush (Picc Line Flush) 8 ml IVPUSH PRN PRN PRN Reason: Protocol Dextrose/Sodium Chloride (Dextrose 5%-Normal Saline+20 Meq Kcl -) 1,000 mls @ 75 mls/hr IV ASDIR [facility] Last Admin: 11/12/16 23:30 Dose: 75 mls/hr Insulin Aspart (Novolog Vial Sliding Scale -) 1 vial SQ BIDAC [facility] PRN Reason: Protocol Last Admin: 11/13/16 06:36 Dose: 2 units Metoclopramide HCl (Reglan Injection -) 10 mg IVPB Q6H-IV [facility] Last Admin: 11/13/16 09:33 Dose: 10 mg Metoprolol Tartrate (Lopressor -) 50 mg PO BID [facility] Last Admin: 11/13/16 09:33 Dose: 50 mg Systane Ultra Eye (Drops) 1 each OU BID [facility] Last Admin: 11/13/16 09:34 Dose: 1 each [place] 0.004% Eye (Drops) 1 each OU HS [facility] Last Admin: 11/12/16 21:02 Dose: 1 each Ondansetron HCl (Zofran Injection) 8 mg IVPB Q6H PRN PRN Reason: NAUSEA AND/OR VOMITING Tamsulosin HCl (Flomax -) 0.4 mg PO DAILY@0830 [facility] Last Admin: 11/13/16 09:33 Dose: 0.4 mg - Objective Vital Signs: Vital Signs Temperature 97.9 F 11/13/16 14:00 Pulse Rate 87 11/13/16 14:00 Respiratory Rate 18 11/13/16 14:00 Blood Pressure 134/57 11/13/16 14:00 O2 Sat by Pulse Oximetry (%) 94 L 11/12/16 21:00 Constitutional: Yes: Calm Eyes: Yes: WNL HENT: Yes: WNL Neck: Yes: WNL Cardiovascular: Yes: Regular Rate and Rhythm Respiratory: Yes: Regular Gastrointestinal: Yes: Soft, Other (abdominal surgical scar without discharge) ...Rectal Exam: Yes: Deferred Genitourinary: Yes: Other (small amount of blood on dressing around Chavarria). No : Anuria Musculoskeletal: Yes: Muscle Weakness Extremities: Yes: Cool Edema: No Peripheral Pulses WNL: No Peripheral Pulses: Left Doralis Pedis: 1+, Right Dorsalis Pedis: 1+ Integumentary: Yes: Incision Wound/Incision: Yes: Clean/Dry, Open to air Neurological: Yes: Weakness Psychiatric: Yes: Other Labs: CBC, BMP 11/08/16 05:35 11/13/16 06:48 Abnormal Lab Results 11/13/16 06:48 Creatinine 0.5 L Random Glucose 164 H D AST 82 H ALT 131 H Total Protein 5.4 L Albumin 1.9 L Problem List - Problems (1) Diastolic CHF Assessment/Plan: BP better controlled; continue present medications ( increased amlodipine to 10 mg daily for HTN; again on metoprolol, and off labetalol, due to PSVT). Consider spironolactone (diastolic heart failure) and ACEI (HTN; DM). F/u Is and Os, daily weight, BUN/Cr, electrolytes. Physical rehabilitation. Code(s): I50.30 - UNSPECIFIED DIASTOLIC (CONGESTIVE) HEART FAILURE (2) Hyperlipidemia Assessment/Plan: On atorvastatin; keep LDL cholesterol < 70 mg/dL. Code(s): E78.5 - HYPERLIPIDEMIA, UNSPECIFIED (3) PSVT (paroxysmal supraventricular tachycardia) Assessment/Plan: On metoprolol. Maintain electrolytes WNL. Code(s): I47.1 - SUPRAVENTRICULAR TACHYCARDIA (4) SBO (small bowel obstruction) Assessment/Plan: F/u of abdominal sonogram and CT noted; f/u with surgeon. Code(s): K56.69 - OTHER INTESTINAL OBSTRUCTION (5) Small bowel mass Code(s): K63.89 - OTHER SPECIFIED DISEASES OF INTESTINE (6) HTN (hypertension) Assessment/Plan: On metoprolol; can change to ER for better 24 hour coverage and compliance. On amlodipine; increased to 10 mg daily; BP is now better-controlled. Consider adding ACEI, ARB (hypokalemic; HTN; DM); if diuretic added, guard against further electrolyte depletion. Serial BP and HR checks. Code(s): I10 - ESSENTIAL (PRIMARY) HYPERTENSION (7) Weakness Code(s): R53.1 - WEAKNESS (8) Hypothyroid Assessment/Plan: decreased TSH; free T4 mildly elevated. Code(s): E03.9 - HYPOTHYROIDISM, UNSPECIFIED (9) Hypokalemia Assessment/Plan: Keep K+ 4-4.5 (hx PSVT); Keep Mg 2-2.3 Keep Po4 2.5-3.5. Would add lisinopril for HTN, ?DM (elevated glucose; f/u HGBA1c). Code(s): E87.6 - HYPOKALEMIA (10) Hyperglycemia Assessment/Plan: f/u HGBA1c. Consider adding ACEI for HTN, ?DM, Code(s): R73.9 - HYPERGLYCEMIA, UNSPECIFIED
[2016-11-13] MEDS ORDERED: PT OWN MED DRAWER 7, Y5N ONE (18:35)
--- NOTE | 2016-11-13 20:24 | PN ---
Progress Note, Physician History of Present Illness: Pt was transferred from ICU to Telemetry Post op day 22 Pt removed NGT. Pt is was advanced to clear liquids Pt with cough and productive yellow sputum, states that is better this AM Pt without N, V; pt has minimal abdominal pain Pt w/o fever, chills. Pt w/o CP, SOB, Palp. Pt tolerates Ensure better Events were noticed - Current Medication List Current Medications: Active Medications Aclidinium [place] (Tudorza -) 1 puff IH BID [facility] Last Admin: 11/13/16 09:33 Dose: 1 puff Amlodipine Besylate (Norvasc -) 10 mg PO DAILY [facility] Last Admin: 11/13/16 09:33 Dose: 10 mg Guaifenesin (Robitussin Dm -) 10 ml PO Q4HWA [facility] Last Admin: 11/13/16 17:44 Dose: Not Given Heparin Sodium (Porcine) (Heparin -) 5,000 unit SQ TID [facility] Last Admin: 11/13/16 17:37 Dose: 5,000 unit IV Flush (Picc Line Flush) 8 ml IVPUSH PRN PRN PRN Reason: Protocol Dextrose/Sodium Chloride (Dextrose 5%-Normal Saline+20 Meq Kcl -) 1,000 mls @ 75 mls/hr IV ASDIR [facility] Last Admin: 11/12/16 23:30 Dose: 75 mls/hr Insulin Aspart (Novolog Vial Sliding Scale -) 1 vial SQ BIDAC [facility] PRN Reason: Protocol Last Admin: 11/13/16 17:40 Dose: 2 units Metoclopramide HCl (Reglan Injection -) 10 mg IVPB Q6H-IV [facility] Last Admin: 11/13/16 17:36 Dose: 10 mg Metoprolol Tartrate (Lopressor -) 50 mg PO BID [facility] Last Admin: 11/13/16 09:33 Dose: 50 mg Systane Ultra Eye (Drops) 1 each OU BID [facility] Last Admin: 11/13/16 09:34 Dose: 1 each [place] 0.004% Eye (Drops) 1 each OU HS [facility] Last Admin: 11/12/16 21:02 Dose: 1 each Ondansetron HCl (Zofran Injection) 8 mg IVPB Q6H PRN PRN Reason: NAUSEA AND/OR VOMITING Tamsulosin HCl (Flomax -) 0.4 mg PO DAILY@0830 [facility] Last Admin: 11/13/16 09:33 Dose: 0.4 mg - Objective Vital Signs: Vital Signs Temperature 98.8 F 11/13/16 16:15 Pulse Rate 92 H 11/13/16 16:15 Respiratory Rate 20 11/13/16 16:15 Blood Pressure 138/75 11/13/16 16:15 O2 Sat by Pulse Oximetry (%) 94 L 11/12/16 21:00 Constitutional: Yes: No Distress, Calm Cardiovascular: Yes: Regular Rate and Rhythm, S1, S2 Respiratory: Yes: Regular, Rhonchi (scaterred at bases) Gastrointestinal: Yes: Normal Bowel Sounds, Soft, Tenderness (minimal in mid abdomen). No: Tenderness, Rebound Edema: No Neurological: Yes: Alert, Oriented Labs: CBC, BMP 11/08/16 05:35 11/13/16 06:48 Problem List - Problems (1) Small bowel mass Code(s): K63.89 - OTHER SPECIFIED DISEASES OF INTESTINE (2) SBO (small bowel obstruction) Code(s): K56.69 - OTHER INTESTINAL OBSTRUCTION (3) Pneumatosis intestinalis Code(s): K63.89 - OTHER SPECIFIED DISEASES OF INTESTINE (4) CHF (congestive heart failure) Code(s): I50.9 - HEART FAILURE, UNSPECIFIED (5) CVA (cerebral infarction) Code(s): I63.9 - CEREBRAL INFARCTION, UNSPECIFIED (6) Chronic obstructive pulmonary disease Code(s): J44.9 - CHRONIC OBSTRUCTIVE PULMONARY DISEASE, UNSPECIFIED (7) Hyperlipidemia Code(s): E78.5 - HYPERLIPIDEMIA, UNSPECIFIED (8) Hypokalemia due to inadequate potassium intake Code(s): E87.6 - HYPOKALEMIA (9) Hypophosphatemia Code(s): E83.39 - OTHER DISORDERS OF PHOSPHORUS METABOLISM (10) HTN (hypertension) Code(s): I10 - ESSENTIAL (PRIMARY) HYPERTENSION (11) Hypomagnesemia Code(s): E83.42 - HYPOMAGNESEMIA (12) Bandemia Code(s): D72.825 - BANDEMIA (13) Pneumonia Code(s): J18.9 - PNEUMONIA, UNSPECIFIED ORGANISM (14) Hypoalbuminemia Code(s): E88.09 - OTH DISORDERS OF PLASMA-PROTEIN METABOLISM, NEC (15) Elevated LFTs Code(s): R79.89 - OTHER SPECIFIED ABNORMAL FINDINGS OF BLOOD CHEMISTRY (16) Urinary retention Code(s): R33.9 - RETENTION OF URINE, UNSPECIFIED Assessment/Plan GI and surgical f/u appreciated post OP day 22 Pt wants his to make medical decisions if he cannot; both daughter agrees with pt. All family's questions were answered Pt is hemodynamically stable. Pt had poor PO intake; pt with N and V for couple of days; NGT was reinserted again; pt removed NGT, now NPO except meds.; to f/u with Sx. Pt with + BCX, LLL PNA Pt tolerates PO meds Pt off TPN. Pt. is s/p left PICC Line placement; pt removed it. To change Robitussin to scheduled status. I encourage PO intake, OOBTC AM labs. Prognosis: reserved- improving. Case was d/w pt's nurse.
[2016-11-13] MEDS: EYE OU SCH (21:17)
[2016-11-13] MEDS: TRAVATAN 0.004% OU SCH (21:17)
[2016-11-14] MEDS: METOCLOPRAMIDE HCL INJECTION 10 MG/2 ML VIAL IVPB SCH ×4 (03:25→23:29)
[2016-11-14] MEDS: guaiFENesin/D-METHORPHAN HB 10 ML UNIT-DOSE CUPS PO SCH ×5 (06:25→23:31)
[2016-11-14] MEDS: HEPARIN NA (PORCINE) 5,000 UNITS/ML 1ML VIAL SQ SCH ×3 (06:25→23:30)
[2016-11-14] MEDS: INSULIN SLIDING SCALE (NOVOLOG) 1 VIAL SQ SCH ×2 (06:29→17:52)
[2016-11-14 07:38] LABS: MCH 27.8 pg (25.7-33.7); MCHC 33.3 g/dl (32.0-35.9); MEAN CELL VOLUME 83.5 fl (80-96); MEAN PLT VOLUME 8.3 fl (7.5-11.1); PLATELET COUNT 282 K/MM3 (134-434); RDW 14.5 % (11.9-15.9); WHITE BLOOD COUNT 11.1 K/mm3 (4.0-10.0)
[2016-11-14 08:06] LABS: ALBUMIN 1.9 g/dl (3.4-5.0); ALK PHOS 102 U/L (45-117); ANION GAP 9 (8-16); CALCIUM 8.5 mg/dL (8.5-10.1); CO2 29 mmol/L (21-32); CREATININE 0.5 mg/dL (0.7-1.3); GLUCOSE,RANDOM 146 mg/dL (74-106); SGOT/AST 64 U/L (15-37); SGPT/ALT 113 U/L (12-78); TOT PROT 5.2 g/dl (6.4-8.2)
[2016-11-14] MEDS ORDERED: PT OWN MED DRAWER 7, Y5N ONE (09:04)
[2016-11-14] MEDS: amLODIPine BESYLATE 10 MG TABLET (FP) PO SCH (09:28)
[2016-11-14] MEDS: METOPROLOL TARTRATE 50 MG TABLET (FP) PO SCH ×2 (09:28→23:30)
[2016-11-14] MEDS: TAMSULOSIN HCL 0.4 MG CAP.ER.24H (FP) PO SCH (09:28)
[2016-11-14] MEDS: SYSTANE ULTRA EYE DROPS OU SCH ×2 (09:29→23:31)
[2016-11-14] MEDS: ACLIDINIUM BROMIDE 400 MCG/INH AERO.POWD IH SCH ×2 (09:30→23:30)
--- NOTE | 2016-11-14 14:41 | PN ---
Progress Note, Physician History of Present Illness: Pt was transferred from ICU to Telemetry Post op day 23 Pt removed NGT. Pt is was advanced to clear liquids Pt with cough and productive, less lately Pt without N, V; pt has minimal abdominal pain Pt w/o fever, chills. Pt w/o CP, SOB, Palp. Pt tolerates Ensure better but he is affraid to eat. When I asked him he admits that his mood is down, feels depressed. Family is at bedside - Current Medication List Current Medications: Active Medications Aclidinium [place] (Tudorza -) 1 puff IH BID [facility] Last Admin: 11/14/16 09:30 Dose: 1 puff Amlodipine Besylate (Norvasc -) 10 mg PO DAILY [facility] Last Admin: 11/14/16 09:28 Dose: 10 mg Guaifenesin (Robitussin Dm -) 10 ml PO Q4HWA [facility] Last Admin: 11/14/16 14:26 Dose: Not Given Heparin Sodium (Porcine) (Heparin -) 5,000 unit SQ TID [facility] Last Admin: 11/14/16 14:28 Dose: 5,000 unit IV Flush (Picc Line Flush) 8 ml IVPUSH PRN PRN PRN Reason: Protocol Dextrose/Sodium Chloride (Dextrose 5%-Normal Saline+20 Meq Kcl -) 1,000 mls @ 75 mls/hr IV ASDIR [facility] Last Admin: 11/14/16 00:00 Dose: Not Given Insulin Aspart (Novolog Vial Sliding Scale -) 1 vial SQ BIDAC [facility] PRN Reason: Protocol Last Admin: 11/14/16 06:29 Dose: Not Given Metoclopramide HCl (Reglan Injection -) 10 mg IVPB Q6H-IV [facility] Last Admin: 11/14/16 09:27 Dose: 10 mg Metoprolol Tartrate (Lopressor -) 50 mg PO BID [facility] Last Admin: 11/14/16 09:28 Dose: 50 mg Systane Ultra Eye (Drops) 1 each OU BID [facility] Last Admin: 11/14/16 09:29 Dose: 1 each [place] 0.004% Eye (Drops) 1 each OU HS [facility] Last Admin: 11/13/16 21:17 Dose: 1 each Ondansetron HCl (Zofran Injection) 8 mg IVPB Q6H PRN PRN Reason: NAUSEA AND/OR VOMITING Tamsulosin HCl (Flomax -) 0.4 mg PO DAILY@0830 [facility] Last Admin: 11/14/16 09:28 Dose: 0.4 mg - Objective Vital Signs: Vital Signs Temperature 98.2 F 11/14/16 14:32 Pulse Rate 83 11/14/16 14:32 Respiratory Rate 18 11/14/16 14:32 Blood Pressure 111/66 11/14/16 14:32 O2 Sat by Pulse Oximetry (%) 94 L 11/12/16 21:00 Constitutional: Yes: No Distress, Calm Cardiovascular: Yes: Regular Rate and Rhythm, S1, S2 Respiratory: Yes: Regular, CTA Bilaterally, Rales (at bases) Gastrointestinal: Yes: Normal Bowel Sounds, Soft. No: Tenderness Edema: No Neurological: Yes: Alert, Oriented Labs: CBC, BMP 11/14/16 06:00 11/14/16 06:00 Problem List - Problems (1) Small bowel mass Code(s): K63.89 - OTHER SPECIFIED DISEASES OF INTESTINE (2) SBO (small bowel obstruction) Code(s): K56.69 - OTHER INTESTINAL OBSTRUCTION (3) Pneumatosis intestinalis Code(s): K63.89 - OTHER SPECIFIED DISEASES OF INTESTINE (4) CHF (congestive heart failure) Code(s): I50.9 - HEART FAILURE, UNSPECIFIED (5) CVA (cerebral infarction) Code(s): I63.9 - CEREBRAL INFARCTION, UNSPECIFIED (6) Chronic obstructive pulmonary disease Code(s): J44.9 - CHRONIC OBSTRUCTIVE PULMONARY DISEASE, UNSPECIFIED (7) Hyperlipidemia Code(s): E78.5 - HYPERLIPIDEMIA, UNSPECIFIED (8) Hypokalemia due to inadequate potassium intake Code(s): E87.6 - HYPOKALEMIA (9) Hypophosphatemia Code(s): E83.39 - OTHER DISORDERS OF PHOSPHORUS METABOLISM (10) HTN (hypertension) Code(s): I10 - ESSENTIAL (PRIMARY) HYPERTENSION (11) Hypomagnesemia Code(s): E83.42 - HYPOMAGNESEMIA (12) Bandemia Code(s): D72.825 - BANDEMIA (13) Pneumonia Code(s): J18.9 - PNEUMONIA, UNSPECIFIED ORGANISM (14) Hypoalbuminemia Code(s): E88.09 - OTH DISORDERS OF PLASMA-PROTEIN METABOLISM, NEC (15) Elevated LFTs Code(s): R79.89 - OTHER SPECIFIED ABNORMAL FINDINGS OF BLOOD CHEMISTRY (16) Urinary retention Code(s): R33.9 - RETENTION OF URINE, UNSPECIFIED (17) Abdominal aneurysm Assessment/Plan: it seems to be stable since 2012 Code(s): I71.4 - ABDOMINAL AORTIC ANEURYSM, WITHOUT RUPTURE (18) Depression Assessment/Plan: Pt doesn't want to see a Psychiatrist but agrees to try medication Code(s): F32.9 - MAJOR DEPRESSIVE DISORDER, SINGLE EPISODE, UNSPECIFIED Assessment/Plan GI and surgical f/u appreciated post OP day 23 Pt wants his to make medical decisions if he cannot; both daughter agrees with pt. All family's questions were answered Pt is hemodynamically stable. Pt had poor PO intake; pt with N and V for couple of days; NGT was reinserted again; pt removed NGT, now NPO except meds.; to f/u with Sx. Pt with + BCX, LLL PNA Pt tolerates PO meds Pt off TPN. Pt. is s/p left PICC Line placement; pt removed it. To change Robitussin to scheduled status. I encourage PO intake, OOBTC Start Remeron, MVI. Swallow eval I spoke with pt and family about my concern related to poor PO intake, possible the need for TF. All questions were answered. Pt's and pt to discuss about in the case that pt's PO intke doesn't improve. AM labs. Prognosis: reserved- improving. Case was d/w pt's nurse. Time spent for managing pt's care: over 40 min.
[2016-11-14] MEDS: D5-NS + 20 MEQ KCL - 1,000 ML IV SCH ×3 (15:14→23:31)
[2016-11-14] MEDS: MULTIVITAMINS LIQUID THERAPEUTIC 118 ML BOT PO SCH (17:52)
[2016-11-14] MEDS: MIRTAZAPINE 15 MG TABLET (FP) PO SCH (23:31)
[2016-11-14] MEDS: EYE OU SCH (23:32)
[2016-11-14] MEDS: TRAVATAN 0.004% OU SCH (23:32)
[2016-11-15] MEDS: METOCLOPRAMIDE HCL INJECTION 10 MG/2 ML VIAL IVPB SCH ×4 (02:39→21:33)
[2016-11-15] MEDS ORDERED: PT OWN MED DRAWER 7, Y5N ONE (06:06)
[2016-11-15] MEDS: guaiFENesin/D-METHORPHAN HB 10 ML UNIT-DOSE CUPS PO SCH ×5 (06:58→21:34)
[2016-11-15] MEDS: HEPARIN NA (PORCINE) 5,000 UNITS/ML 1ML VIAL SQ SCH ×3 (06:58→21:34)
[2016-11-15] MEDS: INSULIN SLIDING SCALE (NOVOLOG) 1 VIAL SQ SCH ×2 (07:00→17:33)
[2016-11-15] MEDS: D5-NS + 20 MEQ KCL - 1,000 ML IV SCH ×2 (07:04→23:40)
[2016-11-15 08:14] LABS: ALBUMIN 1.9 g/dl (3.4-5.0); ANION GAP 8 (8-16); CALCIUM 8.3 mg/dL (8.5-10.1); CO2 30 mmol/L (21-32); CREATININE 0.4 mg/dL (0.7-1.3); GLUCOSE,RANDOM 131 mg/dL (74-106); SGOT/AST 100 U/L (15-37); SGPT/ALT 156 U/L (12-78)
[2016-11-15 08:16] LABS: ALK PHOS 104 U/L (45-117); BILIRUBIN,TOTAL 0.8 mg/dL (0.2-1.0); TOT PROT 5.5 g/dl (6.4-8.2)
[2016-11-15] MEDS: METOPROLOL TARTRATE 50 MG TABLET (FP) PO SCH ×2 (11:41→21:34)
[2016-11-15] MEDS: amLODIPine BESYLATE 10 MG TABLET (FP) PO SCH (11:41)
[2016-11-15] MEDS: MULTIVITAMINS LIQUID THERAPEUTIC 118 ML BOT PO SCH (11:42)
[2016-11-15] MEDS: ACLIDINIUM BROMIDE 400 MCG/INH AERO.POWD IH SCH ×2 (11:43→21:34)
[2016-11-15] MEDS: SYSTANE ULTRA EYE DROPS OU SCH ×2 (11:43→21:35)
[2016-11-15] MEDS: TAMSULOSIN HCL 0.4 MG CAP.ER.24H (FP) PO SCH (11:44)
--- NOTE | 2016-11-15 13:42 | PN ---
Progress Note, Physician History of Present Illness: Pt was transferred from ICU to Telemetry Post op day 24 Pt removed NGT. Pt is was advanced to clear liquids Pt with cough and productive, less lately Pt without N, V; pt has minimal abdominal pain Pt w/o fever, chills. Pt w/o CP, SOB, Palp. Pt tolerates Ensure but is drinking just part of it Pt w/o BM for 2-3 days, passing gas - Current Medication List Current Medications: Active Medications Aclidinium [place] (Tudorza -) 1 puff IH BID [facility] Last Admin: 11/15/16 11:43 Dose: 1 puff Amlodipine Besylate (Norvasc -) 10 mg PO DAILY [facility] Last Admin: 11/15/16 11:41 Dose: 10 mg Guaifenesin (Robitussin Dm -) 10 ml PO Q4HWA [facility] Last Admin: 11/15/16 11:41 Dose: 10 ml Heparin Sodium (Porcine) (Heparin -) 5,000 unit SQ TID [facility] Last Admin: 11/15/16 06:58 Dose: 5,000 unit IV Flush (Picc Line Flush) 8 ml IVPUSH PRN PRN PRN Reason: Protocol Dextrose/Sodium Chloride (Dextrose 5%-Normal Saline+20 Meq Kcl -) 1,000 mls @ 75 mls/hr IV ASDIR [facility] Last Admin: 11/15/16 07:04 Dose: 75 mls/hr Insulin Aspart (Novolog Vial Sliding Scale -) 1 vial SQ BIDAC [facility] PRN Reason: Protocol Last Admin: 11/15/16 07:00 Dose: Not Given Metoclopramide HCl (Reglan Injection -) 10 mg IVPB Q6H-IV [facility] Last Admin: 11/15/16 11:44 Dose: 10 mg Metoprolol Tartrate (Lopressor -) 50 mg PO BID [facility] Last Admin: 11/15/16 11:41 Dose: 50 mg Mirtazapine (Remeron -) 7.5 mg PO HS [facility] Last Admin: 11/14/16 23:31 Dose: 7.5 mg Multivitamins (Thera-Plus -) 15 ml PO DAILY [facility] Last Admin: 11/15/16 11:42 Dose: 15 ml Systane Ultra Eye (Drops) 1 each OU BID [facility] Last Admin: 11/15/16 11:43 Dose: 1 each Travatan 0.004% Eye (Drops) 1 each OU HS [facility] Last Admin: 11/14/16 23:32 Dose: 1 each Ondansetron HCl (Zofran Injection) 8 mg IVPB Q6H PRN PRN Reason: NAUSEA AND/OR VOMITING Tamsulosin HCl (Flomax -) 0.4 mg PO DAILY@0830 [facility] Last Admin: 11/15/16 11:44 Dose: 0.4 mg - Objective Vital Signs: Vital Signs Temperature 98.2 F 11/15/16 06:00 Pulse Rate 92 H 11/15/16 06:00 Respiratory Rate 18 11/15/16 06:00 Blood Pressure 151/82 11/15/16 06:00 O2 Sat by Pulse Oximetry (%) 99 11/14/16 21:00 Constitutional: Yes: No Distress, Calm Cardiovascular: Yes: Regular Rate and Rhythm, S1, S2 Respiratory: Yes: Regular, CTA Bilaterally, Other (coarse at bases) Gastrointestinal: Yes: Normal Bowel Sounds, Soft. No: Tenderness Edema: No Neurological: Yes: Alert, Oriented Labs: CBC, BMP 11/14/16 06:00 11/15/16 06:05 Problem List - Problems (1) Small bowel mass Code(s): K63.89 - OTHER SPECIFIED DISEASES OF INTESTINE (2) SBO (small bowel obstruction) Code(s): K56.69 - OTHER INTESTINAL OBSTRUCTION (3) Pneumatosis intestinalis Code(s): K63.89 - OTHER SPECIFIED DISEASES OF INTESTINE (4) CHF (congestive heart failure) Code(s): I50.9 - HEART FAILURE, UNSPECIFIED (5) CVA (cerebral infarction) Code(s): I63.9 - CEREBRAL INFARCTION, UNSPECIFIED (6) Chronic obstructive pulmonary disease Code(s): J44.9 - CHRONIC OBSTRUCTIVE PULMONARY DISEASE, UNSPECIFIED (7) Hyperlipidemia Code(s): E78.5 - HYPERLIPIDEMIA, UNSPECIFIED (8) Hypokalemia due to inadequate potassium intake Code(s): E87.6 - HYPOKALEMIA (9) Hypophosphatemia Code(s): E83.39 - OTHER DISORDERS OF PHOSPHORUS METABOLISM (10) HTN (hypertension) Code(s): I10 - ESSENTIAL (PRIMARY) HYPERTENSION (11) Hypomagnesemia Code(s): E83.42 - HYPOMAGNESEMIA (12) Bandemia Code(s): D72.825 - BANDEMIA (13) Pneumonia Code(s): J18.9 - PNEUMONIA, UNSPECIFIED ORGANISM (14) Hypoalbuminemia Code(s): E88.09 - OTH DISORDERS OF PLASMA-PROTEIN METABOLISM, NEC (15) Elevated LFTs Assessment/Plan: up and down. Hepatitis studies are negative To f/u with GI Code(s): R79.89 - OTHER SPECIFIED ABNORMAL FINDINGS OF BLOOD CHEMISTRY (16) Urinary retention Code(s): R33.9 - RETENTION OF URINE, UNSPECIFIED (17) Abdominal aneurysm Code(s): I71.4 - ABDOMINAL AORTIC ANEURYSM, WITHOUT RUPTURE (18) Depression Code(s): F32.9 - MAJOR DEPRESSIVE DISORDER, SINGLE EPISODE, UNSPECIFIED Assessment/Plan GI and surgical f/u appreciated post OP day 24 Pt wants his to make medical decisions if he cannot; both daughter agrees with pt. All family's questions were answered Pt is hemodynamically stable. Pt had poor PO intake; pt with N and V for couple of days; NGT was reinserted again; pt removed NGT, now NPO except meds.; to f/u with Sx. Pt with + BCX, LLL PNA Pt tolerates PO meds Pt off TPN. Pt. is s/p left PICC Line placement; pt removed it. To change Robitussin to scheduled status. I encourage PO intake, OOBTC Started Remeron, MVI. Swallow eval. I spoke with pt and family about my concern related to poor PO intake, possible the need for TF. All questions were answered. Pt's and pt to discuss about TF in the case that pt's PO intake doesn't improve. AM labs. Prognosis: reserved- improving. Case was d/w pt's nurse.
[2016-11-15] MEDS: MIRTAZAPINE 15 MG TABLET (FP) PO SCH (21:34)
[2016-11-15] MEDS: EYE OU SCH (21:35)
[2016-11-15] MEDS: TRAVATAN 0.004% OU SCH (21:35)
[2016-11-16] MEDS: METOCLOPRAMIDE HCL INJECTION 10 MG/2 ML VIAL IVPB SCH ×4 (02:40→22:25)
[2016-11-16] MEDS: HEPARIN NA (PORCINE) 5,000 UNITS/ML 1ML VIAL SQ SCH ×3 (05:40→22:34)
[2016-11-16] MEDS: guaiFENesin/D-METHORPHAN HB 10 ML UNIT-DOSE CUPS PO SCH ×5 (05:41→22:25)
[2016-11-16] MEDS: INSULIN SLIDING SCALE (NOVOLOG) 1 VIAL SQ SCH ×2 (06:21→17:57)
[2016-11-16 07:59] LABS: MCH 27.9 pg (25.7-33.7); MCHC 33.3 g/dl (32.0-35.9); MEAN CELL VOLUME 83.6 fl (80-96); MEAN PLT VOLUME 8.1 fl (7.5-11.1); PLATELET COUNT 358 K/MM3 (134-434); RDW 14.4 % (11.9-15.9); WHITE BLOOD COUNT 7.7 K/mm3 (4.0-10.0)
[2016-11-16 08:37] LABS: ANION GAP 8 (8-16); CALCIUM 8.7 mg/dL (8.5-10.1); CO2 30 mmol/L (21-32); GLUCOSE,RANDOM 140 mg/dL (74-106)
[2016-11-16 08:41] LABS: ALK PHOS 113 U/L (45-117); BILIRUBIN,TOTAL 0.8 mg/dL (0.2-1.0); CREATININE 0.4 mg/dL (0.7-1.3); SGOT/AST 88 U/L (15-37); SGPT/ALT 162 U/L (12-78); TOT PROT 5.7 g/dl (6.4-8.2)
[2016-11-16] MEDS: TAMSULOSIN HCL 0.4 MG CAP.ER.24H (FP) PO SCH (08:43)
[2016-11-16] MEDS: METOPROLOL TARTRATE 50 MG TABLET (FP) PO SCH ×2 (10:06→22:23)
[2016-11-16] MEDS: amLODIPine BESYLATE 10 MG TABLET (FP) PO SCH (10:06)
[2016-11-16] MEDS: SYSTANE ULTRA EYE DROPS OU SCH ×2 (10:09→22:25)
[2016-11-16] MEDS: ACLIDINIUM BROMIDE 400 MCG/INH AERO.POWD IH SCH ×2 (10:10→22:40)
[2016-11-16] MEDS ORDERED: PT OWN MED DRAWER 7, Y5N ONE ×2 (10:11→22:40)
[2016-11-16] MEDS: MULTIVITAMINS LIQUID THERAPEUTIC 118 ML BOT PO SCH (10:12)
--- NOTE | 2016-11-16 12:22 | PN ---
Progress Note (short form) - Note Progress Note: Awake and alert. NAD on 3 L NC O2. No acute events overnight. No CP or SOB. Tolerating PO intake. Laboratory Results - last 24 hr 11/14/16 11/14/16 11/15/16 06:28 06:32 12:12 WBC RBC Hgb Hct MCV MCH MCHC RDW Plt Count MPV Sodium Potassium Chloride Carbon Dioxide Anion Gap BUN Creatinine Creat Clearance w eGFR POC Glucometer 150 267 181 Random Glucose Calcium Total Bilirubin AST ALT Alkaline Phosphatase Total Protein Albumin 11/15/16 11/16/16 11/16/16 17:31 05:44 06:10 WBC 7.7 D RBC 4.16 Hgb 11.6 L Hct 34.8 L MCV 83.6 MCH 27.9 MCHC 33.3 RDW 14.4 Plt Count 358 D MPV 8.1 Sodium Potassium Chloride Carbon Dioxide Anion Gap BUN Creatinine Creat Clearance w eGFR POC Glucometer 203 160 Random Glucose Calcium Total Bilirubin AST ALT Alkaline Phosphatase Total Protein Albumin 11/16/16 06:10 WBC RBC Hgb Hct MCV MCH MCHC RDW Plt Count MPV Sodium 139 Potassium 3.9 Chloride 101 Carbon Dioxide 30 Anion Gap 8 BUN 7 Creatinine 0.4 L Creat Clearance w eGFR > 60 POC Glucometer Random Glucose 140 H Calcium 8.7 Total Bilirubin 0.8 AST 88 H ALT 162 H Alkaline Phosphatase 113 Total Protein 5.7 L Albumin 2.0 L Last Vital Signs Temp Pulse Resp BP Pulse Ox 99 F 93 H 16 150/85 99 11/16/16 04:00 11/16/16 04:00 11/16/16 04:00 11/16/16 04:00 11/15/16 20:38 Active Medications Aclidinium [place] (Tudorza -) 1 puff IH BID [facility] Last Admin: 11/16/16 10:10 Dose: 1 puff Amlodipine Besylate (Norvasc -) 10 mg PO DAILY [facility] Last Admin: 11/16/16 10:06 Dose: 10 mg Guaifenesin (Robitussin Dm -) 10 ml PO Q4HWA [facility] Last Admin: 11/16/16 10:06 Dose: 10 ml Heparin Sodium (Porcine) (Heparin -) 5,000 unit SQ TID [facility] Last Admin: 11/16/16 05:40 Dose: 5,000 unit IV Flush (Picc Line Flush) 8 ml IVPUSH PRN PRN PRN Reason: Protocol Dextrose/Sodium Chloride (Dextrose 5%-Normal Saline+20 Meq Kcl -) 1,000 mls @ 75 mls/hr IV ASDIR [facility] Last Admin: 11/15/16 23:40 Dose: 75 mls/hr Insulin Aspart (Novolog Vial Sliding Scale -) 1 vial SQ BIDAC [facility] PRN Reason: Protocol Last Admin: 11/16/16 06:21 Dose: 2 units Metoclopramide HCl (Reglan Injection -) 10 mg IVPB Q6H-IV [facility] Last Admin: 11/16/16 08:43 Dose: 10 mg Metoprolol Tartrate (Lopressor -) 50 mg PO BID [facility] Last Admin: 11/16/16 10:06 Dose: 50 mg Mirtazapine (Remeron -) 7.5 mg PO HS [facility] Last Admin: 11/15/16 21:34 Dose: 7.5 mg Multivitamins (Thera-Plus -) 15 ml PO DAILY [facility] Last Admin: 11/16/16 10:12 Dose: 15 ml Systane Ultra Eye (Drops) 1 each OU BID [facility] Last Admin: 11/16/16 10:09 Dose: 1 each Travatan 0.004% Eye (Drops) 1 each OU HS [facility] Last Admin: 11/15/16 21:35 Dose: 1 each Ondansetron HCl (Zofran Injection) 8 mg IVPB Q6H PRN PRN Reason: NAUSEA AND/OR VOMITING Tamsulosin HCl (Flomax -) 0.4 mg PO DAILY@0830 [facility] Last Admin: 11/16/16 08:43 Dose: 0.4 mg OBJECTIVE: Gen: Awake, NAD at rest Heart: RRR Lung: decreased breath sounds at the bases Abd: soft, (+) BS, NT Ext: no edema Laboratory Results - last 24 hr 11/14/16 11/14/16 11/15/16 06:28 06:32 12:12 WBC RBC Hgb Hct MCV MCH MCHC RDW Plt Count MPV Sodium Potassium Chloride Carbon Dioxide Anion Gap BUN Creatinine Creat Clearance w eGFR POC Glucometer 150 267 181 Random Glucose Calcium Total Bilirubin AST ALT Alkaline Phosphatase Total Protein Albumin 11/15/16 11/16/16 11/16/16 17:31 05:44 06:10 WBC 7.7 D RBC 4.16 Hgb 11.6 L Hct 34.8 L MCV 83.6 MCH 27.9 MCHC 33.3 RDW 14.4 Plt Count 358 D MPV 8.1 Sodium Potassium Chloride Carbon Dioxide Anion Gap BUN Creatinine Creat Clearance w eGFR POC Glucometer 203 160 Random Glucose Calcium Total Bilirubin AST ALT Alkaline Phosphatase Total Protein Albumin 11/16/16 06:10 WBC RBC Hgb Hct MCV MCH MCHC RDW Plt Count MPV Sodium 139 Potassium 3.9 Chloride 101 Carbon Dioxide 30 Anion Gap 8 BUN 7 Creatinine 0.4 L Creat Clearance w eGFR > 60 POC Glucometer Random Glucose 140 H Calcium 8.7 Total Bilirubin 0.8 AST 88 H ALT 162 H Alkaline Phosphatase 113 Total Protein 5.7 L Albumin 2.0 L ASSESSMENT AND PLAN: Pneumoatosis Intestinalis Small Bowel Obstruction s/p ex-lap/SB resection COPD HTN Hyperlipidemia CHF h/o CVA - PO as tolerated - incentive spirometry - VTE prophylaxis - O2 as needed - Ambulate / PT - BD TX / LAMA Dr Dominguez
--- NOTE | 2016-11-16 12:28 | CONSULT ---
Admitting History and Physical - Primary Care Physician PCP: Jameel Delcid - Admission History of Present Illness: Pneumoatosis Intestinalis/Small Bowel Obstruction s/p ex-lap/SB resection COPD HTN Hyperlipidemia CHF h/o CVA Pt was transferred from ICU to Telemetry on 11/12, post op day 21 Pt removed NGT and was advanced to clear liquids Pt had cough and productive yellow sputum. He was afraid to eat or drink at that time. Concern is insufficient Po intake, however, appetite is now improving. Selected Entries 11/14/16 11/14/16 11/14/16 06:00 09:30 10:00 Breakfast 0 Lunch Supper Temperature 98.6 F 98.2 F 11/14/16 11/14/16 11/14/16 14:32 18:00 22:00 Breakfast Lunch 25% Supper Temperature 98.2 F 98.2 F 98.6 F 11/15/16 11/15/16 11/15/16 06:00 11:50 14:48 Breakfast 25% Lunch 25% Supper Temperature 98.2 F 99.6 F 11/15/16 11/15/16 11/15/16 16:20 18:30 20:00 Breakfast Lunch Supper 25% Temperature 98.8 F 98.6 F 11/16/16 11/16/16 04:00 10:31 Breakfast 75% Lunch Supper Temperature 99 F Laboratory Tests 11/14/16 11/16/16 06:00 06:10 WBC 11.1 H 7.7 D Reported to have tolerated kazakh toast this am. Family reports cough with all po trials with them since admission, not previously.. 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 CABLE: Yes: CVA, TIA Cardiovascular: Yes: CHF, HTN, Hyperlipdemia Pulmonary: Yes: COPD Gastrointestinal: Yes: Constipation Renal/: Yes: BPH Musculoskeletal: Yes: Hemiparesis - Smoking History Smoking history: Former smoker Have you smoked in the past 12 months: No Aproximately how many cigarettes per day: 10 If you are a former smoker, when did you quit?: 2016 - Alcohol/Substance Use Hx Alcohol Use: Yes History of Substance Use: reports: None - Social History ADL: Independent Occupation: retired from [employer] History of Recent Travel: No History - Admission Reason For Visit: SMALL BOWEL OBSTRUCTION - General Mental Status: Awake and Alert, Able to Follow Commands, Forgetful, Vague, Confused Attention: Intact Ability to Follow Directions: Fair Head/Neck Control: Fair - Hearing Hearing: Normal, Both Hearing Aide: No With Patient: Yes Speech Evaluation - Communication Primary Language: YI Communication: Yes: Simple Responses (speaks in cymro, uses gestures at times. Said to be more confused than baseline.) Oral Expression Ability: Yes: No Impairment - Speech Production Able to Make Needs Known: Yes: WNL Intelligibility: Yes: WNL - Speech Characteristics Voice Loudness: Mildly Soft/Quiet Voice Pitch: Yes: Normal Voice Phonatory-based Quality: Yes: Normal Speech Pattern: Normal Speech Clarity: < 100% Nasal Resonance: Normal Articulation: Yes: Precise - Language/Auditory Comprehension Follows: Yes: 1 Stage Simple Commands - Language/Verbal Expression Able to Respond to Simple Queries: Yes: WNL Able to Communicate Wants and Needs: Yes: WNL Functional Communication Status: Yes: WNL - Swallow Evaluation/Bedside Assessment Current Nutritional Intake: Soft, Thin Liquids Oral Secretions: Yes: Tongue Coated (White thick coating on tongue. r/o thrush) Dentition: Yes: Edentulous Facial Symmetry at Rest: Facial Droop Right Lingual Movement: Symmetric Lingual Speed of Movement: Normal Lingual Movement Strgth Against Opposition: Normal Laryngeal Movement: Labored,delay initiation Rate of Intake: Slow/Holding Bolus Size: Small Chewing: Impaired Oral Prep Time: Increased A-P Transit: Impaired Pocketing: Present Bilaterally Timing of Swallow: Delayed Coughing/Throat Clear: Yes (delayed, with all po intake.) Recommendations - Speech Evaluation, Impression/Plan Impression: tongue coated, r/o thrush. Suspect aspiration on nectar thick liquids. Oral holding, needing to expectorate solids. Delayed swallow, frequently not generated. - Dysphagia Impressions/Plan Swallowing Skills: Impaired Dysphagia Impressions: Ongoing Evaluation, Suspect Aspiration *Silent aspiration: cannot be R/O at bedside Recommendations: Modified Barium Swallow, Other (r/o THRUSH, medication mgmt) - Recommendations Medication Administration: Crushed with applesauce Supplement: Ensure Pudding
--- NOTE | 2016-11-16 12:29 | PN ---
Progress Note, Physician History of Present Illness: 81 year old man with a history of HTN, HLD, COPD, CVA, AAA admitted with abdominal discomfort and constipation concerning for SBO. Pt seen and examined today in nad. He states that he had multiple small BM's yesterday and overnight. denies any current abd pain. denies chest pain, sob, palpitations. no pnd, orthopnea, or LE edema. NG tube in place. PMH LE angio 02/21/2015 Dr. 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 08/10/2014 Dr Alcazar PCI LCx 09/20/2014 Dr Alcazar Medical History Reviewed Condition Date Treating Physician Comments Claudication, intermittent HTN Hyperlipidemia TIA/CVA - Current Medication List Current Medications: Active Medications Aclidinium [place] (Tudorza -) 1 puff IH BID [facility] Last Admin: 11/16/16 10:10 Dose: 1 puff Amlodipine Besylate (Norvasc -) 10 mg PO DAILY [facility] Last Admin: 11/16/16 10:06 Dose: 10 mg Guaifenesin (Robitussin Dm -) 10 ml PO Q4HWA [facility] Last Admin: 11/16/16 10:06 Dose: 10 ml Heparin Sodium (Porcine) (Heparin -) 5,000 unit SQ TID [facility] Last Admin: 11/16/16 05:40 Dose: 5,000 unit IV Flush (Picc Line Flush) 8 ml IVPUSH PRN PRN PRN Reason: Protocol Dextrose/Sodium Chloride (Dextrose 5%-Normal Saline+20 Meq Kcl -) 1,000 mls @ 75 mls/hr IV ASDIR [facility] Last Admin: 11/15/16 23:40 Dose: 75 mls/hr Insulin Aspart (Novolog Vial Sliding Scale -) 1 vial SQ BIDAC [facility] PRN Reason: Protocol Last Admin: 11/16/16 06:21 Dose: 2 units Metoclopramide HCl (Reglan Injection -) 10 mg IVPB Q6H-IV [facility] Last Admin: 11/16/16 08:43 Dose: 10 mg Metoprolol Tartrate (Lopressor -) 50 mg PO BID [facility] Last Admin: 11/16/16 10:06 Dose: 50 mg Mirtazapine (Remeron -) 7.5 mg PO HS [facility] Last Admin: 11/15/16 21:34 Dose: 7.5 mg Multivitamins (Thera-Plus -) 15 ml PO DAILY [facility] Last Admin: 11/16/16 10:12 Dose: 15 ml Systane Ultra Eye (Drops) 1 each OU BID [facility] Last Admin: 11/16/16 10:09 Dose: 1 each Travatan 0.004% Eye (Drops) 1 each OU HS [facility] Last Admin: 11/15/16 21:35 Dose: 1 each Ondansetron HCl (Zofran Injection) 8 mg IVPB Q6H PRN PRN Reason: NAUSEA AND/OR VOMITING Tamsulosin HCl (Flomax -) 0.4 mg PO DAILY@0830 [facility] Last Admin: 11/16/16 08:43 Dose: 0.4 mg - Objective Vital Signs: Vital Signs Temperature 99 F 11/16/16 04:00 Pulse Rate 93 H 11/16/16 04:00 Respiratory Rate 16 11/16/16 04:00 Blood Pressure 150/85 11/16/16 04:00 O2 Sat by Pulse Oximetry (%) 99 11/15/16 20:38 Eyes: Yes: WNL, Conjunctiva Clear, EOM Intact HENT: Yes: WNL, Atraumatic, Normocephalic Neck: Yes: WNL, Supple, Trachea Midline Cardiovascular: Yes: WNL, Regular Rate and Rhythm Respiratory: Yes: WNL, Regular, CTA Bilaterally Gastrointestinal: Yes: WNL, Normal Bowel Sounds Genitourinary: Yes: WNL Musculoskeletal: Yes: WNL Extremities: Yes: WNL Edema: No Integumentary: Yes: WNL Neurological: Yes: WNL, Alert, Oriented ...Motor Strength: WNL Psychiatric: Yes: WNL Labs: CBC, BMP 11/16/16 06:10 11/16/16 06:10 Assessment/Plan - Problems (1) Diastolic CHF Assessment/Plan: BP better controlled; continue present medications ( increased amlodipine to 10 mg daily for HTN; again on metoprolol, and off labetalol, due to PSVT). Consider spironolactone (diastolic heart failure) and ACEI (HTN; DM). F/u Is and Os, daily weight, BUN/Cr, electrolytes. Physical rehabilitation. Code(s): I50.30 - UNSPECIFIED DIASTOLIC (CONGESTIVE) HEART FAILURE (2) Hyperlipidemia Assessment/Plan: On atorvastatin; keep LDL cholesterol < 70 mg/dL. Code(s): E78.5 - HYPERLIPIDEMIA, UNSPECIFIED (3) PSVT (paroxysmal supraventricular tachycardia) Assessment/Plan: On metoprolol. Maintain electrolytes WNL. Code(s): I47.1 - SUPRAVENTRICULAR TACHYCARDIA (4) SBO (small bowel obstruction) Assessment/Plan: F/u of abdominal sonogram and CT noted; f/u with surgeon. Code(s): K56.69 - OTHER INTESTINAL OBSTRUCTION (5) Small bowel mass Code(s): K63.89 - OTHER SPECIFIED DISEASES OF INTESTINE (6) HTN (hypertension) Assessment/Plan: On metoprolol; can change to ER for better 24 hour coverage and compliance. On amlodipine; increased to 10 mg daily; BP is now better-controlled. Consider adding ACEI, ARB (hypokalemic; HTN; DM); if diuretic added, guard against further electrolyte depletion. Serial BP and HR checks. Code(s): I10 - ESSENTIAL (PRIMARY) HYPERTENSION (7) Weakness Code(s): R53.1 - WEAKNESS (8) Hypothyroid Assessment/Plan: decreased TSH; free T4 mildly elevated. Code(s): E03.9 - HYPOTHYROIDISM, UNSPECIFIED (9) Hypokalemia Assessment/Plan: Keep K+ 4-4.5 (hx PSVT); Keep Mg 2-2.3 Keep Po4 2.5-3.5. Would add lisinopril for HTN, ?DM (elevated glucose; f/u HGBA1c). Code(s): E87.6 - HYPOKALEMIA (10) Hyperglycemia Assessment/Plan: f/u HGBA1c. Consider adding ACEI for HTN, ?DM, Code(s): R73.9 - HYPERGLYCEMIA, UNSPECIFIED
--- NOTE | 2016-11-16 19:53 | PN ---
Progress Note, Physician History of Present Illness: Pt was transferred from ICU to Telemetry to medical floor Post op day 25 Pt removed NGT. Pt is was advanced to clear liquids Pt with cough and productive, less lately, persistant Pt without N, V; pt has minimal abdominal pain Pt w/o fever, chills. Pt w/o CP, SOB, Palp. s/p MBS - Current Medication List Current Medications: Active Medications Aclidinium [place] (Tudorza -) 1 puff IH BID [facility] Last Admin: 11/16/16 10:10 Dose: 1 puff Amlodipine Besylate (Norvasc -) 10 mg PO DAILY [facility] Last Admin: 11/16/16 10:06 Dose: 10 mg Guaifenesin (Robitussin Dm -) 10 ml PO Q4HWA [facility] Last Admin: 11/16/16 18:19 Dose: Not Given Heparin Sodium (Porcine) (Heparin -) 5,000 unit SQ TID [facility] Last Admin: 11/16/16 16:12 Dose: 5,000 unit IV Flush (Picc Line Flush) 8 ml IVPUSH PRN PRN PRN Reason: Protocol Dextrose/Sodium Chloride (Dextrose 5%-Normal Saline+20 Meq Kcl -) 1,000 mls @ 75 mls/hr IV ASDIR [facility] Last Admin: 11/15/16 23:40 Dose: 75 mls/hr Insulin Aspart (Novolog Vial Sliding Scale -) 1 vial SQ BIDAC [facility] PRN Reason: Protocol Last Admin: 11/16/16 17:57 Dose: 2 units Metoclopramide HCl (Reglan Injection -) 10 mg IVPB Q6H-IV [facility] Last Admin: 11/16/16 16:13 Dose: 10 mg Metoprolol Tartrate (Lopressor -) 50 mg PO BID [facility] Last Admin: 11/16/16 10:06 Dose: 50 mg Mirtazapine (Remeron -) 7.5 mg PO HS [facility] Last Admin: 11/15/16 21:34 Dose: 7.5 mg Multivitamins (Thera-Plus -) 15 ml PO DAILY [facility] Last Admin: 11/16/16 10:12 Dose: 15 ml Systane Ultra Eye (Drops) 1 each OU BID [facility] Last Admin: 11/16/16 10:09 Dose: 1 each Travatan 0.004% Eye (Drops) 1 each OU HS [facility] Last Admin: 11/15/16 21:35 Dose: 1 each Ondansetron HCl (Zofran Injection) 8 mg IVPB Q6H PRN PRN Reason: NAUSEA AND/OR VOMITING Tamsulosin HCl (Flomax -) 0.4 mg PO DAILY@0830 [facility] Last Admin: 11/16/16 08:43 Dose: 0.4 mg - Objective Vital Signs: Vital Signs Temperature 99.7 F H 11/16/16 16:43 Pulse Rate 87 11/16/16 16:43 Respiratory Rate 18 11/16/16 16:43 Blood Pressure 141/74 11/16/16 16:43 O2 Sat by Pulse Oximetry (%) 99 11/15/16 20:38 Constitutional: Yes: No Distress, Calm Cardiovascular: Yes: Regular Rate and Rhythm, S1, S2 Respiratory: Yes: Regular, Other (coarse BS) Gastrointestinal: Yes: Normal Bowel Sounds. No: Tenderness Edema: No Labs: CBC, BMP 11/16/16 06:10 11/16/16 06:10 Problem List - Problems (1) Small bowel mass Code(s): K63.89 - OTHER SPECIFIED DISEASES OF INTESTINE (2) SBO (small bowel obstruction) Code(s): K56.69 - OTHER INTESTINAL OBSTRUCTION (3) Pneumatosis intestinalis Code(s): K63.89 - OTHER SPECIFIED DISEASES OF INTESTINE (4) CHF (congestive heart failure) Code(s): I50.9 - HEART FAILURE, UNSPECIFIED (5) CVA (cerebral infarction) Code(s): I63.9 - CEREBRAL INFARCTION, UNSPECIFIED (6) Chronic obstructive pulmonary disease Code(s): J44.9 - CHRONIC OBSTRUCTIVE PULMONARY DISEASE, UNSPECIFIED (7) Hyperlipidemia Code(s): E78.5 - HYPERLIPIDEMIA, UNSPECIFIED (8) Hypokalemia due to inadequate potassium intake Code(s): E87.6 - HYPOKALEMIA (9) Hypophosphatemia Code(s): E83.39 - OTHER DISORDERS OF PHOSPHORUS METABOLISM (10) HTN (hypertension) Code(s): I10 - ESSENTIAL (PRIMARY) HYPERTENSION (11) Hypomagnesemia Code(s): E83.42 - HYPOMAGNESEMIA (12) Bandemia Code(s): D72.825 - BANDEMIA (13) Pneumonia Code(s): J18.9 - PNEUMONIA, UNSPECIFIED ORGANISM (14) Hypoalbuminemia Code(s): E88.09 - OTH DISORDERS OF PLASMA-PROTEIN METABOLISM, NEC (15) Elevated LFTs Code(s): R79.89 - OTHER SPECIFIED ABNORMAL FINDINGS OF BLOOD CHEMISTRY (16) Urinary retention Code(s): R33.9 - RETENTION OF URINE, UNSPECIFIED (17) Abdominal aneurysm Code(s): I71.4 - ABDOMINAL AORTIC ANEURYSM, WITHOUT RUPTURE (18) Depression Code(s): F32.9 - MAJOR DEPRESSIVE DISORDER, SINGLE EPISODE, UNSPECIFIED (19) Dysphagia Assessment/Plan: Swallow eval appreciated Code(s): R13.10 - DYSPHAGIA, UNSPECIFIED Assessment/Plan GI and surgical f/u appreciated post OP day 25 Pt wants his to make medical decisions if he cannot; both daughter agrees with pt. All family's questions were answered Pt is hemodynamically stable. Pt had poor PO intake; pt with N and V for couple of days; NGT was reinserted again; pt removed NGT, now NPO except meds.; to f/u with Sx. Pt with + BCX, LLL PNA Pt tolerates PO meds Pt off TPN. Pt. is s/p left PICC Line placement; pt removed it. To change Robitussin to scheduled status. I encourage PO intake, OOBTC Started Remeron, MVI. Swallow evaluation appreciated. I spoke with pt and family about my concern related to poor PO intake, possible the need for TF vs palliative care. All questions were answered. MBS report was reviewed AM labs. Prognosis: reserved- improving. Case was d/w pt's nurse.
[2016-11-16] MEDS: D5-NS + 20 MEQ KCL - 1,000 ML IV SCH (21:14)
[2016-11-16] MEDS: MIRTAZAPINE 15 MG TABLET (FP) PO SCH (22:23)
[2016-11-16] MEDS: TRAVATAN 0.004% OU SCH (22:25)
[2016-11-16] MEDS: EYE OU SCH (22:25)
[2016-11-17] MEDS: METOCLOPRAMIDE HCL INJECTION 10 MG/2 ML VIAL IVPB SCH ×4 (02:25→23:03)
[2016-11-17] MEDS: INSULIN SLIDING SCALE (NOVOLOG) 1 VIAL SQ SCH ×2 (06:19→18:16)
[2016-11-17] MEDS: HEPARIN NA (PORCINE) 5,000 UNITS/ML 1ML VIAL SQ SCH ×3 (06:20→23:04)
[2016-11-17] MEDS: guaiFENesin/D-METHORPHAN HB 10 ML UNIT-DOSE CUPS PO SCH ×5 (06:21→23:06)
[2016-11-17] MEDS: TAMSULOSIN HCL 0.4 MG CAP.ER.24H (FP) PO SCH (08:43)
--- NOTE | 2016-11-17 08:50 | PN ---
Progress Note (short form) - Note Progress Note: Day #5 s/p bedside flexible cysto to assist with vieyra insertion Alert. Doing well. No complaints. Excellent urinary output. Hematuria resolved. On Flomax 0.4mg daily VSS. Afebrile Gen: nad Abd: no suprapubic tenderness : vieyra clear (> 30mL/hr) Problem List - Problems (1) Gross hematuria Assessment/Plan: DC vieyra at 6am and begin trial of void Cont Flomax Code(s): R31.0 - GROSS HEMATURIA
[2016-11-17] MEDS: METOPROLOL TARTRATE 50 MG TABLET (FP) PO SCH ×2 (10:12→23:04)
[2016-11-17] MEDS: amLODIPine BESYLATE 10 MG TABLET (FP) PO SCH (10:12)
[2016-11-17] MEDS: ACLIDINIUM BROMIDE 400 MCG/INH AERO.POWD IH SCH ×2 (10:15→23:05)
[2016-11-17] MEDS: SYSTANE ULTRA EYE DROPS OU SCH ×2 (10:15→23:06)
[2016-11-17] MEDS: D5-NS + 20 MEQ KCL - 1,000 ML IV SCH ×2 (10:16→15:27)
[2016-11-17] MEDS: MULTIVITAMINS LIQUID THERAPEUTIC 118 ML BOT PO SCH ×2 (10:21→10:30)
--- NOTE | 2016-11-17 10:48 | PN ---
Progress Note, Physician History of Present Illness: Pt was transferred from ICU to Telemetry to medical floor Post op day 26 Pt removed NGT. Pt diet was advanced but has poor PO intake. Pt is s/p MBS, + for silent aspiration (diet was changed). Pt with cough, improved, persistant Pt without N, V; pt has minimal abdominal pain Pt w/o fever, chills. Pt w/o CP, SOB, Palp. Pt with depressed mood. - Current Medication List Current Medications: Active Medications Aclidinium [place] (Tudorza -) 1 puff IH BID [facility] Last Admin: 11/17/16 10:15 Dose: 1 puff Amlodipine Besylate (Norvasc -) 10 mg PO DAILY [facility] Last Admin: 11/17/16 10:12 Dose: 10 mg Guaifenesin (Robitussin Dm -) 10 ml PO Q4HWA [facility] Last Admin: 11/17/16 10:12 Dose: 10 ml Heparin Sodium (Porcine) (Heparin -) 5,000 unit SQ TID [facility] Last Admin: 11/17/16 06:20 Dose: 5,000 unit IV Flush (Picc Line Flush) 8 ml IVPUSH PRN PRN PRN Reason: Protocol Dextrose/Sodium Chloride (Dextrose 5%-Normal Saline+20 Meq Kcl -) 1,000 mls @ 75 mls/hr IV ASDIR [facility] Last Admin: 11/17/16 10:16 Dose: Not Given Insulin Aspart (Novolog Vial Sliding Scale -) 1 vial SQ BIDAC [facility] PRN Reason: Protocol Last Admin: 11/17/16 06:19 Dose: 2 units Metoclopramide HCl (Reglan Injection -) 10 mg IVPB Q6H-IV [facility] Last Admin: 11/17/16 08:43 Dose: 10 mg Metoprolol Tartrate (Lopressor -) 50 mg PO BID [facility] Last Admin: 11/17/16 10:12 Dose: 50 mg Mirtazapine (Remeron -) 7.5 mg PO HS [facility] Last Admin: 11/16/16 22:23 Dose: 7.5 mg Multivitamins (Thera-Plus -) 15 ml PO DAILY [facility] Last Admin: 11/17/16 10:30 Dose: 15 ml Systane Ultra Eye (Drops) 1 each OU BID [facility] Last Admin: 11/17/16 10:15 Dose: 1 each Travatan 0.004% Eye (Drops) 1 each OU HS [facility] Last Admin: 11/16/16 22:25 Dose: 1 each Ondansetron HCl (Zofran Injection) 8 mg IVPB Q6H PRN PRN Reason: NAUSEA AND/OR VOMITING Tamsulosin HCl (Flomax -) 0.4 mg PO DAILY@0830 [facility] Last Admin: 11/17/16 08:43 Dose: 0.4 mg - Objective Vital Signs: Vital Signs Temperature 99 F 11/17/16 06:55 Pulse Rate 74 11/17/16 06:55 Respiratory Rate 20 11/17/16 06:55 Blood Pressure 141/58 11/17/16 06:55 O2 Sat by Pulse Oximetry (%) 96 11/16/16 21:00 Constitutional: Yes: No Distress, Calm Cardiovascular: Yes: Regular Rate and Rhythm, S1, S2 Respiratory: Yes: Regular, Rales (at bases, improving with deep inspiration) Gastrointestinal: Yes: Normal Bowel Sounds, Soft. No: Tenderness Edema: No Neurological: Yes: Alert, Oriented Labs: CBC, BMP 11/16/16 06:10 11/16/16 06:10 Problem List - Problems (1) Small bowel mass Code(s): K63.89 - OTHER SPECIFIED DISEASES OF INTESTINE (2) SBO (small bowel obstruction) Code(s): K56.69 - OTHER INTESTINAL OBSTRUCTION (3) Pneumatosis intestinalis Code(s): K63.89 - OTHER SPECIFIED DISEASES OF INTESTINE (4) CHF (congestive heart failure) Code(s): I50.9 - HEART FAILURE, UNSPECIFIED (5) CVA (cerebral infarction) Code(s): I63.9 - CEREBRAL INFARCTION, UNSPECIFIED (6) Chronic obstructive pulmonary disease Code(s): J44.9 - CHRONIC OBSTRUCTIVE PULMONARY DISEASE, UNSPECIFIED (7) Hyperlipidemia Code(s): E78.5 - HYPERLIPIDEMIA, UNSPECIFIED (8) Hypokalemia due to inadequate potassium intake Code(s): E87.6 - HYPOKALEMIA (9) Hypophosphatemia Code(s): E83.39 - OTHER DISORDERS OF PHOSPHORUS METABOLISM (10) HTN (hypertension) Code(s): I10 - ESSENTIAL (PRIMARY) HYPERTENSION (11) Hypomagnesemia Code(s): E83.42 - HYPOMAGNESEMIA (12) Bandemia Code(s): D72.825 - BANDEMIA (13) Pneumonia Code(s): J18.9 - PNEUMONIA, UNSPECIFIED ORGANISM (14) Hypoalbuminemia Code(s): E88.09 - OTH DISORDERS OF PLASMA-PROTEIN METABOLISM, NEC (15) Elevated LFTs Code(s): R79.89 - OTHER SPECIFIED ABNORMAL FINDINGS OF BLOOD CHEMISTRY (16) Urinary retention Code(s): R33.9 - RETENTION OF URINE, UNSPECIFIED (17) Abdominal aneurysm Code(s): I71.4 - ABDOMINAL AORTIC ANEURYSM, WITHOUT RUPTURE (18) Depression Code(s): F32.9 - MAJOR DEPRESSIVE DISORDER, SINGLE EPISODE, UNSPECIFIED (19) Dysphagia Code(s): R13.10 - DYSPHAGIA, UNSPECIFIED Assessment/Plan GI and surgical f/u appreciated post OP day 26. Pt with Hx/o + BCX, LLL PNA Pt wants his to make medical decisions if he cannot; both daughters agree with pt. All family's questions were answered. Pt is hemodynamically stable. Pt had poor PO intake; pt with N and V for couple of days; NGT was reinserted again; pt removed NGT. Pt is s/p MBS, + for silent aspiration (diet was changed).. Pt tolerates PO meds Pt off TPN. Pt. is s/p left PICC Line placement; pt removed it. To change Robitussin to scheduled status. I encourage PO intake, OOBTC Started Remeron, MVI. Swallow evaluation appreciated. I spoke with pt and family yesterday, and today with pt (pt's nurse, Colleen, at bed side) about my concern related to poor PO intake, possible the need for TF vs palliative care. All questions were answered. AM labs. Prognosis: reserved. Case was d/w pt's nurse.
--- NOTE | 2016-11-17 12:00 | PN ---
Progress Note (short form) - Note Progress Note: Awake and alert. NAD on NC O2. Noted MBS : silent aspiration. No acute events overnight. No CP or SOB. Intake & Output 11/14/16 11/15/16 11/16/16 11/17/16 23:59 23:59 23:59 23:59 Intake Total 1710 1850 1670 820 Output Total 1050 1600 1400 500 Balance 660 250 270 320 Weight 121 lb 9.6 oz 121 lb 3.2 oz 114 lb 3 oz Last Vital Signs Temp Pulse Resp BP Pulse Ox 99 F 74 20 141/58 96 11/17/16 06:55 11/17/16 06:55 11/17/16 06:55 11/17/16 06:55 11/16/16 21:00 Active Medications Aclidinium [place] (Tudorza -) 1 puff IH BID [facility] Last Admin: 11/17/16 10:15 Dose: 1 puff Amlodipine Besylate (Norvasc -) 10 mg PO DAILY [facility] Last Admin: 11/17/16 10:12 Dose: 10 mg Guaifenesin (Robitussin Dm -) 10 ml PO Q4HWA [facility] Last Admin: 11/17/16 10:12 Dose: 10 ml Heparin Sodium (Porcine) (Heparin -) 5,000 unit SQ TID [facility] Last Admin: 11/17/16 06:20 Dose: 5,000 unit IV Flush (Picc Line Flush) 8 ml IVPUSH PRN PRN PRN Reason: Protocol Dextrose/Sodium Chloride (Dextrose 5%-Normal Saline+20 Meq Kcl -) 1,000 mls @ 75 mls/hr IV ASDIR [facility] Last Admin: 11/17/16 10:16 Dose: Not Given Insulin Aspart (Novolog Vial Sliding Scale -) 1 vial SQ BIDAC [facility] PRN Reason: Protocol Last Admin: 11/17/16 06:19 Dose: 2 units Metoclopramide HCl (Reglan Injection -) 10 mg IVPB Q6H-IV [facility] Last Admin: 11/17/16 08:43 Dose: 10 mg Metoprolol Tartrate (Lopressor -) 50 mg PO BID [facility] Last Admin: 11/17/16 10:12 Dose: 50 mg Mirtazapine (Remeron -) 7.5 mg PO HS [facility] Last Admin: 11/16/16 22:23 Dose: 7.5 mg Multivitamins (Thera-Plus -) 15 ml PO DAILY [facility] Last Admin: 11/17/16 10:30 Dose: 15 ml Systane Ultra Eye (Drops) 1 each OU BID [facility] Last Admin: 11/17/16 10:15 Dose: 1 each Travatan 0.004% Eye (Drops) 1 each OU HS [facility] Last Admin: 11/16/16 22:25 Dose: 1 each Ondansetron HCl (Zofran Injection) 8 mg IVPB Q6H PRN PRN Reason: NAUSEA AND/OR VOMITING Tamsulosin HCl (Flomax -) 0.4 mg PO DAILY@0830 [facility] Last Admin: 11/17/16 08:43 Dose: 0.4 mg OBJECTIVE: Gen: Awake, NAD at rest Heart: RRR Lung: decreased breath sounds at the bases Abd: soft, (+) BS, NT Ext: no edema Laboratory Results - last 24 hr 11/16/16 11/17/16 11/17/16 17:29 00:56 01:05 POC Glucometer 165 348 161 11/17/16 11/17/16 06:14 06:16 POC Glucometer 236 178 ASSESSMENT AND PLAN: Pneumoatosis Intestinalis Small Bowel Obstruction s/p ex-lap/SB resection COPD HTN Hyperlipidemia CHF h/o CVA - PO as tolerated - incentive spirometry - VTE prophylaxis - O2 as needed - Ambulate / PT - BD TX / LAMA - D/C planning Dr Dominguez
--- NOTE | 2016-11-17 13:47 | PN ---
Progress Note, Physician Chief Complaint: Pt is sitting up in chair; denies pain. Family is visiting, and says his appetite is poor. History of Present Illness: 81-year-old black male with no history of abdominal surgery presents to the emergency department complaining of periumbilical 6/10 sharp nonradiating intermittent discomfort with nausea no vomiting, fever, chills, chest pain, shortness of breath, flank pains, urinary symptoms. There are no alleviating or exacerbating factors. Last bowel movement 4 days ago. - Current Medication List Current Medications: Active Medications Aclidinium [place] (Tudorza -) 1 puff IH BID [facility] Last Admin: 11/17/16 10:15 Dose: 1 puff Amlodipine Besylate (Norvasc -) 10 mg PO DAILY [facility] Last Admin: 11/17/16 10:12 Dose: 10 mg Guaifenesin (Robitussin Dm -) 10 ml PO Q4HWA [facility] Last Admin: 11/17/16 10:12 Dose: 10 ml Heparin Sodium (Porcine) (Heparin -) 5,000 unit SQ TID [facility] Last Admin: 11/17/16 06:20 Dose: 5,000 unit IV Flush (Picc Line Flush) 8 ml IVPUSH PRN PRN PRN Reason: Protocol Dextrose/Sodium Chloride (Dextrose 5%-Normal Saline+20 Meq Kcl -) 1,000 mls @ 75 mls/hr IV ASDIR [facility] Last Admin: 11/17/16 10:16 Dose: Not Given Insulin Aspart (Novolog Vial Sliding Scale -) 1 vial SQ BIDAC [facility] PRN Reason: Protocol Last Admin: 11/17/16 06:19 Dose: 2 units Metoclopramide HCl (Reglan Injection -) 10 mg IVPB Q6H-IV [facility] Last Admin: 11/17/16 08:43 Dose: 10 mg Metoprolol Tartrate (Lopressor -) 50 mg PO BID [facility] Last Admin: 11/17/16 10:12 Dose: 50 mg Mirtazapine (Remeron -) 7.5 mg PO HS [facility] Last Admin: 11/16/16 22:23 Dose: 7.5 mg Multivitamins (Thera-Plus -) 15 ml PO DAILY [facility] Last Admin: 11/17/16 10:30 Dose: 15 ml Systane Ultra Eye (Drops) 1 each OU BID [facility] Last Admin: 11/17/16 10:15 Dose: 1 each Travatan 0.004% Eye (Drops) 1 each OU HS [facility] Last Admin: 11/16/16 22:25 Dose: 1 each Ondansetron HCl (Zofran Injection) 8 mg IVPB Q6H PRN PRN Reason: NAUSEA AND/OR VOMITING Tamsulosin HCl (Flomax -) 0.4 mg PO DAILY@0830 [facility] Last Admin: 11/17/16 08:43 Dose: 0.4 mg - Objective Vital Signs: Vital Signs Temperature 99 F 11/17/16 06:55 Pulse Rate 74 11/17/16 06:55 Respiratory Rate 20 11/17/16 06:55 Blood Pressure 141/58 11/17/16 06:55 O2 Sat by Pulse Oximetry (%) 96 11/16/16 21:00 Constitutional: Yes: Calm Eyes: Yes: WNL HENT: Yes: WNL Neck: Yes: WNL Cardiovascular: Yes: Regular Rate and Rhythm Respiratory: Yes: Regular Gastrointestinal: Yes: Soft. No: Tenderness ...Rectal Exam: Yes: Deferred Genitourinary: No: Anuria Musculoskeletal: Yes: Muscle Weakness Edema: No Peripheral Pulses WNL: Yes Wound/Incision: Yes: Other (abdominal surgical scar healing well) Psychiatric: Yes: Other Labs: CBC, BMP 11/16/16 06:10 11/16/16 06:10 Problem List - Problems (1) Diastolic CHF Assessment/Plan: Continue present medications ( increased amlodipine to 10 mg daily for HTN; again on metoprolol, and off labetalol, due to PSVT). Consider spironolactone (diastolic heart failure) and ACEI (HTN; DM). Physical rehabilitation. Code(s): I50.30 - UNSPECIFIED DIASTOLIC (CONGESTIVE) HEART FAILURE (2) Hyperlipidemia Assessment/Plan: On atorvastatin; keep LDL cholesterol < 70 mg/dL. Code(s): E78.5 - HYPERLIPIDEMIA, UNSPECIFIED (3) PSVT (paroxysmal supraventricular tachycardia) Assessment/Plan: On metoprolol. Maintain electrolytes WNL. Code(s): I47.1 - SUPRAVENTRICULAR TACHYCARDIA (4) SBO (small bowel obstruction) Assessment/Plan: f/u with surgeon. Code(s): K56.69 - OTHER INTESTINAL OBSTRUCTION (5) Small bowel mass Code(s): K63.89 - OTHER SPECIFIED DISEASES OF INTESTINE (6) HTN (hypertension) Assessment/Plan: On metoprolol; can change to ER for better 24 hour coverage and compliance. On amlodipine; increased to 10 mg daily; BP is now better-controlled. Consider adding ACEI, ARB (hypokalemic; HTN; DM); if diuretic added, guard against further electrolyte depletion. Serial BP and HR checks. Code(s): I10 - ESSENTIAL (PRIMARY) HYPERTENSION (7) Weakness Code(s): R53.1 - WEAKNESS (8) Hypothyroid Assessment/Plan: decreased TSH; free T4 mildly elevated. Code(s): E03.9 - HYPOTHYROIDISM, UNSPECIFIED (9) Hypokalemia Assessment/Plan: Keep K+ 4-4.5 (hx PSVT); Keep Mg 2-2.3 Keep Po4 2.5-3.5. Would add lisinopril for HTN, ?DM (elevated glucose; f/u HGBA1c). Code(s): E87.6 - HYPOKALEMIA (10) Hyperglycemia Code(s): R73.9 - HYPERGLYCEMIA, UNSPECIFIED
--- NOTE | 2016-11-17 15:00 | PN ---
Progress Note, HOSPICE CARE TRANSITIONS COORDINATOR - Note Progress Note: oob in chair. Not sob. Refusing lunch. Selected Entries 11/16/16 11/16/16 11/16/16 04:00 10:00 10:31 Breakfast 75% Lunch Temperature 99 F 99.2 F 11/16/16 11/16/16 11/16/16 13:11 15:14 16:43 Breakfast Lunch NPO Temperature 99.5 F 99.7 F H 11/16/16 11/17/16 11/17/16 20:00 06:55 10:00 Breakfast 0 Lunch Temperature 98.6 F 99 F Laboratory Tests 11/14/16 11/16/16 06:00 06:10 WBC 11.1 H 7.7 D Reviewed MBS and rec with staff and family. Pt seen by palliative care.
--- NOTE | 2016-11-17 18:29 | CON.PSY ---
Psychiatry Consult Chief Complaint: Asked to see this patient, a 81 year old male to assess his capacity to make medical decisions. History of Present Problem: History obtained from medical records, RN , Labs and diagnostic tests were reviewed. Patient was unable to give any meaningful coherent subjective history about his hospital stay and his current situation - Current Medications Current Medications: Active Medications Aclidinium [place] (Tudorza -) 1 puff IH BID [facility] Last Admin: 11/17/16 10:15 Dose: 1 puff Amlodipine Besylate (Norvasc -) 10 mg PO DAILY [facility] Last Admin: 11/17/16 10:12 Dose: 10 mg Guaifenesin (Robitussin Dm -) 10 ml PO Q4HWA [facility] Last Admin: 11/17/16 18:15 Dose: 10 ml Heparin Sodium (Porcine) (Heparin -) 5,000 unit SQ TID [facility] Last Admin: 11/17/16 15:28 Dose: 5,000 unit IV Flush (Picc Line Flush) 8 ml IVPUSH PRN PRN PRN Reason: Protocol Dextrose/Sodium Chloride (Dextrose 5%-Normal Saline+20 Meq Kcl -) 1,000 mls @ 75 mls/hr IV [facility] Last Admin: 11/17/16 15:27 Dose: 75 mls/hr Insulin Aspart (Novolog Vial Sliding Scale -) 1 vial SQ BIDAC [facility] PRN Reason: Protocol Last Admin: 11/17/16 18:16 Dose: 2 units Metoclopramide HCl (Reglan Injection -) 10 mg IVPB Q6H-IV [facility] Last Admin: 11/17/16 15:31 Dose: 10 mg Metoprolol Tartrate (Lopressor -) 50 mg PO BID [facility] Last Admin: 11/17/16 10:12 Dose: 50 mg Mirtazapine (Remeron -) 7.5 mg PO HS [facility] Last Admin: 11/16/16 22:23 Dose: 7.5 mg Multivitamins (Thera-Plus -) 15 ml PO DAILY [facility] Last Admin: 11/17/16 10:30 Dose: 15 ml Systane Ultra Eye (Drops) 1 each OU BID [facility] Last Admin: 11/17/16 10:15 Dose: 1 each [place] 0.004% Eye (Drops) 1 each OU HS [facility] Last Admin: 11/16/16 22:25 Dose: 1 each Ondansetron HCl (Zofran Injection) 8 mg IVPB Q6H PRN PRN Reason: NAUSEA AND/OR VOMITING Tamsulosin HCl (Flomax -) 0.4 mg PO DAILY@0830 [facility] Last Admin: 11/17/16 08:43 Dose: 0.4 mg - Allergies Allergies: Allergies Allergy/AdvReac Type Severity Reaction Status Date / Time No Known Allergies Allergy Verified 03/02/16 12:36 - Current Living Status Usual Living Arrangement: With Significant Other - Current Mental Status Evaluation Appearance: Other (clean and in hospital gown) Attitude: Cooperative - Affect Affect: Constrictive - Mood Mood: Other (neutral) - Speech/Language Expressive: Delayed, Soft, Other (soft spoken delayed response.) Receptive: Delayed Receptive Comprehension - Psychomotor Activity Psychomotor Activity: Slowed - Thought Content Hallucinations: Absent Delusions: Absent - Cognition Attention: Diminished Orientation: Person Memory, Immediate Recall: Impaired Memory, Short Term: 0/3 - Concentration Serial Sevens Intact: No Simple Calculations Intact: No - Abstraction Proverb Interpretation: Impaired Judgement: Moderately Impaired - Insight Insight: Impaired - Suicidal Ideation Suicidal Ideation: No - Homicidal Ideation Homicidal Ideation: No Assessment/Plan Patient is confused oriented to self only. He is cognitively impaired and is unable to make decisions about his hospital course, and interventions. According to RN, he came to the floor upon admission fully alert and oriented so we can revisit his mental status periodically. At this time he lacks capacity for decision making Rec Palliative care is involved continue remeron 7.5 for sleep and depression and increase to 15 mgs in a day or two. as lower dose is associated with more lethargy and has less antidepressant properties. Patient needs advanced directive and decisions will rest on his close relatives
[2016-11-17] MEDS ORDERED: HEPARIN NA (PORCINE) 5,000 UNITS/ML 1ML VIAL ONE (22:59)
[2016-11-17] MEDS ORDERED: PT OWN MED DRAWER 7, Y5N ONE ×2 (23:01→23:44)
[2016-11-17] MEDS: MIRTAZAPINE 15 MG TABLET (FP) PO SCH (23:04)
[2016-11-17] MEDS: EYE OU SCH (23:07)
[2016-11-17] MEDS: TRAVATAN 0.004% OU SCH (23:07)
[2016-11-18] MEDS: D5-NS + 20 MEQ KCL - 1,000 ML IV SCH ×2 (00:21→02:02)
[2016-11-18] MEDS: METOCLOPRAMIDE HCL INJECTION 10 MG/2 ML VIAL IVPB SCH ×4 (02:02→22:07)
[2016-11-18] MEDS: guaiFENesin/D-METHORPHAN HB 10 ML UNIT-DOSE CUPS PO SCH ×5 (05:34→22:07)
[2016-11-18] MEDS: INSULIN SLIDING SCALE (NOVOLOG) 1 VIAL SQ SCH ×2 (06:23→17:17)
--- NOTE | 2016-11-18 08:05 | PN ---
Progress Note (short form) - Note Progress Note: MAURILIO- Dr. Davis Patient seen this morning, states he is doing ok, vieyra was removed at 6:30 by nursing. Patient is not haviong discomfort, has not voided yet. Last Vital Signs Temp Pulse Resp BP Pulse Ox 98.8 F 92 H 18 154/83 98 11/18/16 06:00 11/18/16 06:00 11/18/16 06:00 11/18/16 06:00 11/17/16 21:00 Exam: NAD, alert abd soft, without no suprapubic tenderness Day #6 s/p bedside flexible cysto to assist with vieyra insertion Vieyra removed this AM Continue TOV Cont. Flomax PSA pending
[2016-11-18 08:10] LABS: MCH 27.9 pg (25.7-33.7); MCHC 33.3 g/dl (32.0-35.9); MEAN CELL VOLUME 83.8 fl (80-96); MEAN PLT VOLUME 8.1 fl (7.5-11.1); PLATELET COUNT 342 K/MM3 (134-434); RDW 14.2 % (11.9-15.9); WHITE BLOOD COUNT 7.3 K/mm3 (4.0-10.0)
[2016-11-18] MEDS: TAMSULOSIN HCL 0.4 MG CAP.ER.24H (FP) PO SCH (08:58)
[2016-11-18 09:03] LABS: ALBUMIN 1.9 g/dl (3.4-5.0); ALK PHOS 104 U/L (45-117); ANION GAP 10 (8-16); BILIRUBIN,TOTAL 0.8 mg/dL (0.2-1.0); CALCIUM 8.6 mg/dL (8.5-10.1); CO2 26 mmol/L (21-32); CREATININE 0.5 mg/dL (0.7-1.3); GLUCOSE,RANDOM 138 mg/dL (74-106); SGOT/AST 35 U/L (15-37); SGPT/ALT 96 U/L (12-78); TOT PROT 5.6 g/dl (6.4-8.2)
--- NOTE | 2016-11-18 09:24 | PN ---
Progress Note, Physician History of Present Illness: Pt was transferred from ICU to Telemetry to medical floor Post op day 27 Pt removed NGT. Pt diet was advanced but has poor PO intake. Pt is s/p MBS, + for silent aspiration (diet was changed). Pt with cough, improved, persistant, clear sputum Pt without N, V; pt has minimal abdominal pain Pt w/o fever, chills. Pt w/o CP, SOB, Palp. Pt with depressed mood. - Current Medication List Current Medications: Active Medications Aclidinium [place] (Tudorza -) 1 puff IH BID [facility] Last Admin: 11/17/16 23:05 Dose: 1 puff Amlodipine Besylate (Norvasc -) 10 mg PO DAILY [facility] Last Admin: 11/17/16 10:12 Dose: 10 mg Guaifenesin (Robitussin Dm -) 10 ml PO Q4HWA [facility] Last Admin: 11/18/16 05:34 Dose: 10 ml IV Flush (Picc Line Flush) 8 ml IVPUSH PRN PRN PRN Reason: Protocol Dextrose/Sodium Chloride (Dextrose 5%-Normal Saline+20 Meq Kcl -) 1,000 mls @ 75 mls/hr IV ASDIR [facility] Last Admin: 11/18/16 02:02 Dose: Not Given Insulin Aspart (Novolog Vial Sliding Scale -) 1 vial SQ BIDAC [facility] PRN Reason: Protocol Last Admin: 11/18/16 06:23 Dose: Not Given Metoclopramide HCl (Reglan Injection -) 10 mg IVPB Q6H-IV [facility] Last Admin: 11/18/16 08:58 Dose: 10 mg Metoprolol Tartrate (Lopressor -) 50 mg PO BID [facility] Last Admin: 11/17/16 23:04 Dose: 50 mg Mirtazapine (Remeron -) 15 mg PO HS [facility] Multivitamins (Thera-Plus -) 15 ml PO DAILY [facility] Last Admin: 11/17/16 10:30 Dose: 15 ml Systane Ultra Eye (Drops) 1 each OU BID [facility] Last Admin: 11/17/16 23:06 Dose: 1 each Travatan 0.004% Eye (Drops) 1 each OU HS [facility] Last Admin: 11/17/16 23:07 Dose: 1 each Ondansetron HCl (Zofran Injection) 8 mg IVPB Q6H PRN PRN Reason: NAUSEA AND/OR VOMITING Tamsulosin HCl (Flomax -) 0.4 mg PO DAILY@0830 [facility] Last Admin: 11/18/16 08:58 Dose: 0.4 mg - Objective Vital Signs: Vital Signs Temperature 98.8 F 11/18/16 06:00 Pulse Rate 92 H 11/18/16 06:00 Respiratory Rate 18 11/18/16 06:00 Blood Pressure 154/83 11/18/16 06:00 O2 Sat by Pulse Oximetry (%) 98 11/17/16 21:00 Constitutional: Yes: No Distress, Calm HENT: Yes: Other (erythema of buval mucosa) Cardiovascular: Yes: Regular Rate and Rhythm, S1, S2 Respiratory: Yes: Regular, Other (coarse at bases) Gastrointestinal: Yes: Normal Bowel Sounds, Soft. No: Tenderness Edema: No Neurological: Yes: Alert, Oriented (person) Labs: CBC, BMP 11/18/16 06:30 11/18/16 06:30 Problem List - Problems (1) Small bowel mass Code(s): K63.89 - OTHER SPECIFIED DISEASES OF INTESTINE (2) SBO (small bowel obstruction) Code(s): K56.69 - OTHER INTESTINAL OBSTRUCTION (3) Pneumatosis intestinalis Code(s): K63.89 - OTHER SPECIFIED DISEASES OF INTESTINE (4) CHF (congestive heart failure) Code(s): I50.9 - HEART FAILURE, UNSPECIFIED (5) CVA (cerebral infarction) Code(s): I63.9 - CEREBRAL INFARCTION, UNSPECIFIED (6) Chronic obstructive pulmonary disease Code(s): J44.9 - CHRONIC OBSTRUCTIVE PULMONARY DISEASE, UNSPECIFIED (7) Hyperlipidemia Code(s): E78.5 - HYPERLIPIDEMIA, UNSPECIFIED (8) Hypokalemia due to inadequate potassium intake Code(s): E87.6 - HYPOKALEMIA (9) Hypophosphatemia Code(s): E83.39 - OTHER DISORDERS OF PHOSPHORUS METABOLISM (10) HTN (hypertension) Code(s): I10 - ESSENTIAL (PRIMARY) HYPERTENSION (11) Hypomagnesemia Code(s): E83.42 - HYPOMAGNESEMIA (12) Bandemia Code(s): D72.825 - BANDEMIA (13) Pneumonia Code(s): J18.9 - PNEUMONIA, UNSPECIFIED ORGANISM (14) Hypoalbuminemia Code(s): E88.09 - OTH DISORDERS OF PLASMA-PROTEIN METABOLISM, NEC (15) Elevated LFTs Code(s): R79.89 - OTHER SPECIFIED ABNORMAL FINDINGS OF BLOOD CHEMISTRY (16) Urinary retention Code(s): R33.9 - RETENTION OF URINE, UNSPECIFIED (17) Abdominal aneurysm Code(s): I71.4 - ABDOMINAL AORTIC ANEURYSM, WITHOUT RUPTURE (18) Depression Code(s): F32.9 - MAJOR DEPRESSIVE DISORDER, SINGLE EPISODE, UNSPECIFIED (19) Dysphagia Code(s): R13.10 - DYSPHAGIA, UNSPECIFIED Assessment/Plan GI and surgical f/u appreciated post OP day 27. Pt with Hx/o + BCX, LLL PNA Pt wants his to make medical decisions if he cannot; both daughters agree with pt. All family's questions were answered. Pt is hemodynamically stable. Pt had poor PO intake; pt with N and V for couple of days; NGT was reinserted again; pt removed NGT. Pt is s/p MBS, + for silent aspiration (diet was changed).. Pt tolerates PO meds Pt off TPN. Pt. is s/p left PICC Line placement; pt removed it. To change Robitussin to scheduled status. I encourage PO intake, OOBTC Started Remeron, MVI. Swallow evaluation appreciated. I spoke with pt and family, and today with pt (pt's nurse, Colleen, at bed side) about my concern related to poor PO intake, possible the need for TF vs palliative care. All questions were answered. Add nystatin swish and swallow IO AM labs. Prognosis: reserved. Case was d/w pt's nurse.
--- NOTE | 2016-11-18 09:42 | PN ---
Progress Note (short form) - Note Progress Note: Reviewed chart. Discussions were being had regarding G-Tube for enteral feeds given poor PO intake. I spoke with Mr. Haddad. He said yes they have been discussing things with him and that he does not want a feeding tube placed. He did states that he understood that it was to supplement his poor oral intake. He was evaluated by psych and deemed not to have capacity for decision making at this time. Please recall when final decision regarding feeding tube placement is made. Problem List - Problems (1) SBO (small bowel obstruction) Code(s): K56.69 - OTHER INTESTINAL OBSTRUCTION (2) Elevated LFTs Code(s): R79.89 - OTHER SPECIFIED ABNORMAL FINDINGS OF BLOOD CHEMISTRY (3) Abdominal aortic aneurysm (AAA) Code(s): I71.4 - ABDOMINAL AORTIC ANEURYSM, WITHOUT RUPTURE (4) Distended bladder Code(s): N32.89 - OTHER SPECIFIED DISORDERS OF BLADDER
[2016-11-18] MEDS ORDERED: PT OWN MED DRAWER 7, Y5N ONE (10:08)
[2016-11-18] MEDS: METOPROLOL TARTRATE 50 MG TABLET (FP) PO SCH ×2 (10:12→22:07)
[2016-11-18] MEDS: amLODIPine BESYLATE 10 MG TABLET (FP) PO SCH (10:12)
[2016-11-18] MEDS: MULTIVITAMINS LIQUID THERAPEUTIC 118 ML BOT PO SCH (10:14)
[2016-11-18] MEDS: SYSTANE ULTRA EYE DROPS OU SCH ×2 (10:14→22:07)
[2016-11-18] MEDS: ACLIDINIUM BROMIDE 400 MCG/INH AERO.POWD IH SCH ×2 (10:14→22:07)
--- NOTE | 2016-11-18 11:17 | PN ---
Progress Note, Physician History of Present Illness: 81 year old man with a history of HTN, HLD, COPD, CVA, AAA admitted with abdominal discomfort and constipation concerning for SBO. Pt seen and examined today in nad. He states that he had multiple small BM's yesterday and overnight. denies any current abd pain. denies chest pain, sob, palpitations. no pnd, orthopnea, or LE edema. NG tube in place. PMH LE angio 02/21/2015 Dr. Alcazar Left EIA/CUT OUT [employer] DCB 08/10/2014 Dr Alcazar PCI LCx 09/20/2014 Dr Alcazar Medical History Reviewed Condition Date Treating Physician Comments Claudication, intermittent HTN Hyperlipidemia TIA/CVA - Current Medication List Current Medications: Active Medications Aclidinium [place] (Tudorza -) 1 puff IH BID [facility] Last Admin: 11/18/16 10:14 Dose: 1 puff Amlodipine Besylate (Norvasc -) 10 mg PO DAILY [facility] Last Admin: 11/18/16 10:12 Dose: 10 mg Guaifenesin (Robitussin Dm -) 10 ml PO Q4HWA [facility] Last Admin: 11/18/16 10:16 Dose: 10 ml IV Flush (Picc Line Flush) 8 ml IVPUSH PRN PRN PRN Reason: Protocol Dextrose/Sodium Chloride (Dextrose 5%-Normal Saline+20 Meq Kcl -) 1,000 mls @ 75 mls/hr IV ASDIR [facility] Last Admin: 11/18/16 02:02 Dose: Not Given Insulin Aspart (Novolog Vial Sliding Scale -) 1 vial SQ BIDAC [facility] PRN Reason: Protocol Last Admin: 11/18/16 06:23 Dose: Not Given Metoclopramide HCl (Reglan Injection -) 10 mg IVPB Q6H-IV [facility] Last Admin: 11/18/16 08:58 Dose: 10 mg Metoprolol Tartrate (Lopressor -) 50 mg PO BID [facility] Last Admin: 11/18/16 10:12 Dose: 50 mg Mirtazapine (Remeron -) 15 mg PO HS [facility] Multivitamins (Thera-Plus -) 15 ml PO DAILY [facility] Last Admin: 11/18/16 10:14 Dose: 15 ml Systane Ultra Eye (Drops) 1 each OU BID [facility] Last Admin: 07/12/17 10:14 Dose: 1 each Travatan 0.004% Eye (Drops) 1 each OU HS [facility] Last Admin: 11/17/16 23:07 Dose: 1 each Nystatin (Nystatin Oral Suspension -) 500,000 units PO Q6HPO [facility] Ondansetron HCl (Zofran Injection) 8 mg IVPB Q6H PRN PRN Reason: NAUSEA AND/OR VOMITING Tamsulosin HCl (Flomax -) 0.4 mg PO DAILY@0830 [facility] Last Admin: 11/18/16 08:58 Dose: 0.4 mg - Objective Vital Signs: Vital Signs Temperature 98.8 F 11/18/16 06:00 Pulse Rate 92 H 11/18/16 06:00 Respiratory Rate 18 11/18/16 06:00 Blood Pressure 154/83 11/18/16 06:00 O2 Sat by Pulse Oximetry (%) 98 11/17/16 21:00 Eyes: Yes: WNL, Conjunctiva Clear, EOM Intact HENT: Yes: WNL, Atraumatic, Normocephalic Neck: Yes: WNL, Supple, Trachea Midline Cardiovascular: Yes: WNL, Regular Rate and Rhythm Respiratory: Yes: WNL, Regular, CTA Bilaterally Gastrointestinal: Yes: WNL, Normal Bowel Sounds Genitourinary: Yes: WNL Musculoskeletal: Yes: WNL Extremities: Yes: WNL Edema: No Integumentary: Yes: WNL Neurological: Yes: WNL, Alert, Oriented ...Motor Strength: WNL Psychiatric: Yes: WNL Labs: CBC, BMP 11/18/16 06:30 11/18/16 06:30 Assessment/Plan - Problems (1) Diastolic CHF Assessment/Plan: Continue present medications ( increased amlodipine to 10 mg daily for HTN; again on metoprolol, and off labetalol, due to PSVT). Consider spironolactone (diastolic heart failure) and ACEI (HTN; DM). Physical rehabilitation. Code(s): I50.30 - UNSPECIFIED DIASTOLIC (CONGESTIVE) HEART FAILURE (2) Hyperlipidemia Assessment/Plan: On atorvastatin; keep LDL cholesterol < 70 mg/dL. Code(s): E78.5 - HYPERLIPIDEMIA, UNSPECIFIED (3) PSVT (paroxysmal supraventricular tachycardia) Assessment/Plan: On metoprolol. Maintain electrolytes WNL. Code(s): I47.1 - SUPRAVENTRICULAR TACHYCARDIA (4) SBO (small bowel obstruction) Assessment/Plan: f/u with surgeon. Code(s): K56.69 - OTHER INTESTINAL OBSTRUCTION (5) Small bowel mass Code(s): K63.89 - OTHER SPECIFIED DISEASES OF INTESTINE (6) HTN (hypertension) Assessment/Plan: On metoprolol; can change to ER for better 24 hour coverage and compliance. On amlodipine; increased to 10 mg daily; BP is now better-controlled. Consider adding ACEI, ARB (hypokalemic; HTN; DM); if diuretic added, guard against further electrolyte depletion. Serial BP and HR checks. Code(s): I10 - ESSENTIAL (PRIMARY) HYPERTENSION (7) Weakness Code(s): R53.1 - WEAKNESS (8) Hypothyroid Assessment/Plan: decreased TSH; free T4 mildly elevated. Code(s): E03.9 - HYPOTHYROIDISM, UNSPECIFIED (9) Hypokalemia Assessment/Plan: Keep K+ 4-4.5 (hx PSVT); Keep Mg 2-2.3 Keep Po4 2.5-3.5. Would add lisinopril for HTN, ?DM (elevated glucose; f/u HGBA1c). Code(s): E87.6 - HYPOKALEMIA (10) Hyperglycemia Code(s): R73.9 - HYPERGLYCEMIA, UNSPECIFIED
[2016-11-18] MEDS: NYSTATIN 500,000 UNITS/5 ML SUSPENSION PO SCH ×3 (11:47→23:40)
[2016-11-18] MEDS: MIRTAZAPINE 15 MG TABLET (FP) PO SCH (22:07)
[2016-11-18] MEDS: EYE OU SCH (22:07)
[2016-11-18] MEDS: TRAVATAN 0.004% OU SCH (22:07)
[2016-11-19] MEDS: METOCLOPRAMIDE HCL INJECTION 10 MG/2 ML VIAL IVPB SCH ×2 (02:00→10:21)
[2016-11-19] MEDS: guaiFENesin/D-METHORPHAN HB 10 ML UNIT-DOSE CUPS PO SCH ×5 (06:13→22:58)
[2016-11-19] MEDS: NYSTATIN 500,000 UNITS/5 ML SUSPENSION PO SCH ×3 (06:13→17:48)
[2016-11-19] MEDS: INSULIN SLIDING SCALE (NOVOLOG) 1 VIAL SQ SCH ×2 (06:15→16:45)
[2016-11-19] MEDS: TAMSULOSIN HCL 0.4 MG CAP.ER.24H (FP) PO SCH (08:23)
[2016-11-19] MEDS ORDERED: PT OWN MED DRAWER 7, Y5N ONE (10:11)
[2016-11-19] MEDS: amLODIPine BESYLATE 10 MG TABLET (FP) PO SCH (10:20)
[2016-11-19] MEDS: METOPROLOL TARTRATE 50 MG TABLET (FP) PO SCH ×2 (10:20→22:34)
--- NOTE | 2016-11-19 10:20 | PN ---
Progress Note (short form) - Note Progress Note: Awake and alert. OOB in a wheelchair. NAD on RA. No acute events overnight. No CP or SOB. Intake & Output 11/16/16 11/17/16 11/18/16 11/19/16 23:59 23:59 23:59 23:59 Intake Total 1670 2085 1793 900 Output Total 1400 1260 1000 Balance 270 825 793 900 Weight 114 lb 3 oz 110 lb 2 oz 110 lb 8 oz Last Vital Signs Temp Pulse Resp BP Pulse Ox 99.6 F 92 H 18 126/75 100 11/18/16 22:00 11/18/16 22:00 11/18/16 22:00 11/18/16 22:00 11/18/16 21:00 Active Medications Aclidinium [place] (Tudorza -) 1 puff IH BID [facility] Last Admin: 11/18/16 22:07 Dose: 1 puff Amlodipine Besylate (Norvasc -) 10 mg PO DAILY [facility] Last Admin: 11/18/16 10:12 Dose: 10 mg Guaifenesin (Robitussin Dm -) 10 ml PO Q4HWA [facility] Last Admin: 11/19/16 06:13 Dose: 10 ml IV Flush (Picc Line Flush) 8 ml IVPUSH PRN PRN PRN Reason: Protocol Dextrose/Sodium Chloride (Dextrose 5%-Normal Saline+20 Meq Kcl -) 1,000 mls @ 75 mls/hr IV ASDIR [facility] Last Admin: 11/18/16 02:02 Dose: Not Given Insulin Aspart (Novolog Vial Sliding Scale -) 1 vial SQ BIDAC [facility] PRN Reason: Protocol Last Admin: 11/19/16 06:15 Dose: Not Given Metoclopramide HCl (Reglan Injection -) 10 mg IVPB Q6H-IV [facility] Last Admin: 11/19/16 02:00 Dose: 10 mg Metoprolol Tartrate (Lopressor -) 50 mg PO BID [facility] Last Admin: 11/18/16 22:07 Dose: 50 mg Mirtazapine (Remeron -) 15 mg PO HS [facility] Last Admin: 11/18/16 22:07 Dose: 15 mg Multivitamins (Thera-Plus -) 15 ml PO DAILY [facility] Last Admin: 11/18/16 10:14 Dose: 15 ml Systane Ultra Eye (Drops) 1 each OU BID [facility] Last Admin: 11/18/16 22:07 Dose: 1 each [place] 0.004% Eye (Drops) 1 each OU HS [facility] Last Admin: 11/18/16 22:07 Dose: 1 each Nystatin (Nystatin Oral Suspension -) 500,000 units PO Q6HPO [facility] Last Admin: 11/19/16 06:13 Dose: 500,000 units Ondansetron HCl (Zofran Injection) 8 mg IVPB Q6H PRN PRN Reason: NAUSEA AND/OR VOMITING Tamsulosin HCl (Flomax -) 0.4 mg PO DAILY@0830 [facility] Last Admin: 11/19/16 08:23 Dose: 0.4 mg OBJECTIVE: Gen: Awake, NAD at rest Heart: RRR Lung: decreased breath sounds at the bases Abd: soft, (+) BS, NT Ext: no edema Laboratory Results - last 24 hr 11/18/16 11/19/16 17:16 06:14 POC Glucometer 133 136 ASSESSMENT AND PLAN: Pneumoatosis Intestinalis Small Bowel Obstruction s/p ex-lap/SB resection COPD HTN Hyperlipidemia CHF h/o CVA - PO as tolerated - incentive spirometry - VTE prophylaxis - O2 as needed - Ambulate / PT - BD TX / LAMA - D/C planning Dr Dominguez
[2016-11-19] MEDS: MULTIVITAMINS LIQUID THERAPEUTIC 118 ML BOT PO SCH (10:21)
[2016-11-19] MEDS: ACLIDINIUM BROMIDE 400 MCG/INH AERO.POWD IH SCH ×2 (10:21→22:35)
[2016-11-19] MEDS: SYSTANE ULTRA EYE DROPS OU SCH ×2 (10:22→22:38)
--- NOTE | 2016-11-19 12:01 | PN ---
Progress Note (short form) - Note Progress Note: Day #7 s/p bedside flexible cysto to assist with vieyra insertion Alert. Doing well. No complaints. Vieyra cath removed yesterday at 6AM. Patient had some difficulty urinating initially. Per patients RN he is now voiding into his diaper. Hematuria resolved. On Flomax 0.4mg daily. Denies n/v/f/c, suprapubic pain or CVAT. VSS. Afebrile PSA 2.70 Problem List - Problems (1) Gross hematuria Assessment/Plan: No further urology intervention. Continue care per primary team. On behalf of Dr. Cook, thank you for the opportunity to participate in your patient's care. Code(s): R31.0 - GROSS HEMATURIA
[2016-11-19] MEDS ORDERED: METOCLOPRAMIDE HCL 10 MG TABLET (FP) PO PRN (14:05)
--- NOTE | 2016-11-19 14:15 | PN ---
Progress Note, Physician History of Present Illness: Pt was transferred from ICU to Telemetry to medical floor Post op day 28 Pt removed NGT. Pt diet was advanced but has poor PO intake. Pt is s/p MBS, + for silent aspiration (diet was changed). Pt with cough, improved, persistant, clear sputum Pt without N, V; pt has minimal abdominal pain Pt w/o fever, chills. Pt w/o CP, SOB, Palp. Pt with depressed mood. - Current Medication List Current Medications: Active Medications Aclidinium [place] (Tudorza -) 1 puff IH BID [facility] Last Admin: 11/19/16 10:21 Dose: 1 puff Amlodipine Besylate (Norvasc -) 10 mg PO DAILY [facility] Last Admin: 11/19/16 10:20 Dose: 10 mg Guaifenesin (Robitussin Dm -) 10 ml PO Q4HWA [facility] Last Admin: 11/19/16 13:44 Dose: 10 ml IV Flush (Picc Line Flush) 8 ml IVPUSH PRN PRN PRN Reason: Protocol Dextrose/Sodium Chloride (Dextrose 5%-Normal Saline+20 Meq Kcl -) 1,000 mls @ 75 mls/hr IV ASDIR [facility] Last Admin: 11/18/16 02:02 Dose: Not Given Insulin Aspart (Novolog Vial Sliding Scale -) 1 vial SQ BIDAC [facility] PRN Reason: Protocol Last Admin: 11/19/16 06:15 Dose: Not Given Metoclopramide HCl (Reglan -) 10 mg PO TIDAC PRN PRN Reason: NAUSEA AND/OR VOMITING Metoprolol Tartrate (Lopressor -) 50 mg PO BID [facility] Last Admin: 11/19/16 10:20 Dose: 50 mg Mirtazapine (Remeron -) 15 mg PO HS [facility] Last Admin: 11/18/16 22:07 Dose: 15 mg Multivitamins (Thera-Plus -) 15 ml PO DAILY [facility] Last Admin: 11/19/16 10:21 Dose: 15 ml Systane Ultra Eye (Drops) 1 each OU BID [facility] Last Admin: 11/19/16 10:22 Dose: 1 each [place] 0.004% Eye (Drops) 1 each OU HS [facility] Last Admin: 11/18/16 22:07 Dose: 1 each Nystatin (Nystatin Oral Suspension -) 500,000 units PO Q6HPO [facility] Last Admin: 11/19/16 12:55 Dose: 500,000 units Ondansetron HCl (Zofran Injection) 8 mg IVPB Q6H PRN PRN Reason: NAUSEA AND/OR VOMITING Tamsulosin HCl (Flomax -) 0.4 mg PO DAILY@0830 [facility] Last Admin: 11/19/16 08:23 Dose: 0.4 mg - Objective Vital Signs: Vital Signs Temperature 98.3 F 11/19/16 09:10 Pulse Rate 109 H 11/19/16 09:10 Respiratory Rate 18 11/19/16 09:10 Blood Pressure 147/77 11/19/16 09:10 O2 Sat by Pulse Oximetry (%) 100 11/18/16 21:00 Constitutional: Yes: No Distress, Calm (sitting in the wheelchair) Cardiovascular: Yes: Regular Rate and Rhythm, S1, S2 Respiratory: Yes: Regular. No: Rales Gastrointestinal: Yes: Normal Bowel Sounds, Soft. No: Tenderness Edema: No Neurological: Yes: Alert, Oriented Additional Findings/Remarks: I/O reviewed, minimal PO fluid intake. Labs: CBC, BMP 11/18/16 06:30 11/18/16 06:30 Problem List - Problems (1) Small bowel mass Code(s): K63.89 - OTHER SPECIFIED DISEASES OF INTESTINE (2) SBO (small bowel obstruction) Code(s): K56.69 - OTHER INTESTINAL OBSTRUCTION (3) Pneumatosis intestinalis Code(s): K63.89 - OTHER SPECIFIED DISEASES OF INTESTINE (4) CHF (congestive heart failure) Code(s): I50.9 - HEART FAILURE, UNSPECIFIED (5) CVA (cerebral infarction) Code(s): I63.9 - CEREBRAL INFARCTION, UNSPECIFIED (6) Chronic obstructive pulmonary disease Code(s): J44.9 - CHRONIC OBSTRUCTIVE PULMONARY DISEASE, UNSPECIFIED (7) Hyperlipidemia Code(s): E78.5 - HYPERLIPIDEMIA, UNSPECIFIED (8) Hypokalemia due to inadequate potassium intake Code(s): E87.6 - HYPOKALEMIA (9) Hypophosphatemia Code(s): E83.39 - OTHER DISORDERS OF PHOSPHORUS METABOLISM (10) HTN (hypertension) Code(s): I10 - ESSENTIAL (PRIMARY) HYPERTENSION (11) Hypomagnesemia Code(s): E83.42 - HYPOMAGNESEMIA (12) Bandemia Code(s): D72.825 - BANDEMIA (13) Pneumonia Code(s): J18.9 - PNEUMONIA, UNSPECIFIED ORGANISM (14) Hypoalbuminemia Code(s): E88.09 - OTH DISORDERS OF PLASMA-PROTEIN METABOLISM, NEC (15) Elevated LFTs Code(s): R79.89 - OTHER SPECIFIED ABNORMAL FINDINGS OF BLOOD CHEMISTRY (16) Urinary retention Code(s): R33.9 - RETENTION OF URINE, UNSPECIFIED (17) Abdominal aneurysm Code(s): I71.4 - ABDOMINAL AORTIC ANEURYSM, WITHOUT RUPTURE (18) Depression Code(s): F32.9 - MAJOR DEPRESSIVE DISORDER, SINGLE EPISODE, UNSPECIFIED (19) Dysphagia Code(s): R13.10 - DYSPHAGIA, UNSPECIFIED Assessment/Plan GI and surgical f/u appreciated post OP day 28. Pt with Hx/o + BCX, LLL PNA Pt wants his to make medical decisions if he cannot; both daughters agree with pt. All family's questions were answered. Pt is hemodynamically stable. Pt had poor PO intake; pt with N and V for couple of days; NGT was reinserted again; pt removed NGT. Pt is s/p MBS, + for silent aspiration (diet was changed).. Pt tolerates PO meds Pt off TPN. Pt. is s/p left PICC Line placement; pt removed it. To change Robitussin to scheduled status. I encourage PO intake, OOBTC Started Remeron (dose was ncreased), MVI. Swallow evaluation appreciated. I spoke with pt and family about my concern related to poor PO intake, possible the need for TF vs palliative care. All questions were answered. Add nystatin swish and swallow AM labs. Prognosis: reserved. Case was d/w pt's nurse.
--- NOTE | 2016-11-19 19:30 | CON.PSY ---
Psychiatry Consult Chief Complaint: Asked to see this patient again at the request of the family. History of Present Problem: Patient family voiced concern that he may be 'depressed' which may be affecting his reluctance to engage in his decisions about pending procedures etc. Symptoms: reports: Depressed Mood - Current Medications Current Medications: Active Medications Aclidinium [place] (Tudorza -) 1 puff IH BID [facility] Last Admin: 11/19/16 10:21 Dose: 1 puff Amlodipine Besylate (Norvasc -) 10 mg PO DAILY [facility] Last Admin: 11/19/16 10:20 Dose: 10 mg Guaifenesin (Robitussin Dm -) 10 ml PO Q4HWA [facility] Last Admin: 11/19/16 17:48 Dose: 10 ml IV Flush (Picc Line Flush) 8 ml IVPUSH PRN PRN PRN Reason: Protocol Dextrose/Sodium Chloride (Dextrose 5%-Normal Saline+20 Meq Kcl -) 1,000 mls @ 75 mls/hr IV ASDIR [facility] Last Admin: 11/18/16 02:02 Dose: Not Given Insulin Aspart (Novolog Vial Sliding Scale -) 1 vial SQ BIDAC [facility] PRN Reason: Protocol Last Admin: 11/19/16 16:45 Dose: 2 units Metoclopramide HCl (Reglan -) 10 mg PO TIDAC PRN PRN Reason: NAUSEA AND/OR VOMITING Metoprolol Tartrate (Lopressor -) 50 mg PO BID [facility] Last Admin: 11/19/16 10:20 Dose: 50 mg Mirtazapine (Remeron -) 15 mg PO HS [facility] Last Admin: 11/18/16 22:07 Dose: 15 mg Multivitamins (Thera-Plus -) 15 ml PO DAILY [facility] Last Admin: 11/19/16 10:21 Dose: 15 ml Systane Ultra Eye (Drops) 1 each OU BID [facility] Last Admin: 11/19/16 10:22 Dose: 1 each Travatan 0.004% Eye (Drops) 1 each OU HS [facility] Last Admin: 11/18/16 22:07 Dose: 1 each Nystatin (Nystatin Oral Suspension -) 500,000 units PO Q6HPO [facility] Last Admin: 11/19/16 17:48 Dose: 500,000 units Ondansetron HCl (Zofran Injection) 8 mg IVPB Q6H PRN PRN Reason: NAUSEA AND/OR VOMITING Tamsulosin HCl (Flomax -) 0.4 mg PO DAILY@0830 [facility] Last Admin: 11/19/16 08:23 Dose: 0.4 mg - Allergies Allergies: Allergies Allergy/AdvReac Type Severity Reaction Status Date / Time No Known Allergies Allergy Verified 03/02/16 12:36 - Current Mental Status Evaluation Attitude: Guarded - Affect Affect: Constrictive Appropriateness: Not Appropriate - Mood Mood: Depressed, Irritable - Speech/Language Expressive: Delayed - Psychomotor Activity Psychomotor Activity: Normal - Thought Process Thought Process: Loosening of Associations, Transgential - Thought Content Hallucinations: Absent Delusions: Absent - Self Perception Self Perception: No Impairment - Cognition Attention: Alert Orientation: Person Memory, Immediate Recall: Impaired Memory, Short Term: 0/3 Memory, Remote with Promptin/3 - Concentration Serial Sevens Intact: No Simple Calculations Intact: No - Abstraction Proverb Interpretation: Impaired Judgement: Moderately Impaired - Insight Insight: Impaired - Suicidal Ideation Suicidal Ideation: No - Homicidal Ideation Homicidal Ideation: No Assessment/Plan Patient is confused with no change from the last examination one day ago. He does not have the capacity to make decisions regarding his hospital course Spoke with daughters and today who are anxious to give consent
[2016-11-19] MEDS: MIRTAZAPINE 15 MG TABLET (FP) PO SCH (22:35)
[2016-11-19] MEDS: D5-NS + 20 MEQ KCL - 1,000 ML IV SCH (22:36)
[2016-11-19] MEDS: TRAVATAN 0.004% OU SCH (22:38)
[2016-11-19] MEDS: EYE OU SCH (22:38)
[2016-11-20] MEDS: NYSTATIN 500,000 UNITS/5 ML SUSPENSION PO SCH ×6 (00:05→23:22)
[2016-11-20] MEDS: D5-NS + 20 MEQ KCL - 1,000 ML IV SCH ×2 (02:00→12:04)
[2016-11-20] MEDS: guaiFENesin/D-METHORPHAN HB 10 ML UNIT-DOSE CUPS PO SCH ×5 (06:31→22:42)
[2016-11-20] MEDS: INSULIN SLIDING SCALE (NOVOLOG) 1 VIAL SQ SCH ×2 (06:36→18:03)
[2016-11-20 07:34] LABS: MCH 28.2 pg (25.7-33.7); MCHC 33.4 g/dl (32.0-35.9); MEAN CELL VOLUME 84.2 fl (80-96); MEAN PLT VOLUME 7.7 fl (7.5-11.1); PLATELET COUNT 294 K/MM3 (134-434); RDW 14.4 % (11.9-15.9); WHITE BLOOD COUNT 6.8 K/mm3 (4.0-10.0)
[2016-11-20 07:54] LABS: ALBUMIN 2.1 g/dl (3.4-5.0); ANION GAP 9 (8-16); CALCIUM 8.6 mg/dL (8.5-10.1); CO2 28 mmol/L (21-32); GLUCOSE,RANDOM 145 mg/dL (74-106); SGPT/ALT 66 U/L (12-78)
[2016-11-20 07:57] LABS: ALK PHOS 102 U/L (45-117); BILIRUBIN,TOTAL 0.9 mg/dL (0.2-1.0); CREATININE 0.5 mg/dL (0.7-1.3); SGOT/AST 27 U/L (15-37); TOT PROT 5.9 g/dl (6.4-8.2)
[2016-11-20] MEDS: METOPROLOL TARTRATE 50 MG TABLET (FP) PO SCH ×2 (10:03→22:39)
[2016-11-20] MEDS: amLODIPine BESYLATE 10 MG TABLET (FP) PO SCH (10:03)
[2016-11-20] MEDS: TAMSULOSIN HCL 0.4 MG CAP.ER.24H (FP) PO SCH (10:03)
[2016-11-20] MEDS: MULTIVITAMINS LIQUID THERAPEUTIC 118 ML BOT PO SCH (10:04)
[2016-11-20] MEDS: ACLIDINIUM BROMIDE 400 MCG/INH AERO.POWD IH SCH ×2 (10:05→22:41)
[2016-11-20] MEDS: SYSTANE ULTRA EYE DROPS OU SCH ×2 (10:06→22:39)
--- NOTE | 2016-11-20 10:34 | PN ---
Progress Note, Physician History of Present Illness: Pt was transferred from ICU to Telemetry to medical floor Post op day 29 Pt removed NGT. Pt diet was advanced but has poor PO intake. Pt is s/p MBS, + for silent aspiration (diet was changed). Pt with cough, improved, persistent, clear sputum Pt without N, V; pt has no abdominal pain Pt w/o fever, chills. Pt w/o CP, SOB, Palp. Pt with depressed mood. - Current Medication List Current Medications: Active Medications Aclidinium [place] (Tudorza -) 1 puff IH BID [facility] Last Admin: 11/20/16 10:05 Dose: 1 puff Amlodipine Besylate (Norvasc -) 10 mg PO DAILY [facility] Last Admin: 11/20/16 10:03 Dose: 10 mg Guaifenesin (Robitussin Dm -) 10 ml PO Q4HWA [facility] Last Admin: 11/20/16 10:03 Dose: 10 ml IV Flush (Picc Line Flush) 8 ml IVPUSH PRN PRN PRN Reason: Protocol Dextrose/Sodium Chloride (Dextrose 5%-Normal Saline+20 Meq Kcl -) 1,000 mls @ 75 mls/hr IV ASDIR [facility] Last Admin: 11/20/16 02:00 Dose: 75 mls/hr Insulin Aspart (Novolog Vial Sliding Scale -) 1 vial SQ BIDAC [facility] PRN Reason: Protocol Last Admin: 11/20/16 06:36 Dose: 2 units Metoclopramide HCl (Reglan -) 10 mg PO TIDAC PRN PRN Reason: NAUSEA AND/OR VOMITING Metoprolol Tartrate (Lopressor -) 50 mg PO BID [facility] Last Admin: 11/20/16 10:03 Dose: 50 mg Mirtazapine (Remeron -) 15 mg PO HS [facility] Last Admin: 11/19/16 22:35 Dose: 15 mg Multivitamins (Thera-Plus -) 15 ml PO DAILY [facility] Last Admin: 11/20/16 10:04 Dose: 15 ml Systane Ultra Eye (Drops) 1 each OU BID [facility] Last Admin: 11/20/16 10:06 Dose: 1 each Travatan 0.004% Eye (Drops) 1 each OU HS [facility] Last Admin: 11/19/16 22:38 Dose: 1 each Nystatin (Nystatin Oral Suspension -) 500,000 units PO Q6HPO [facility] Last Admin: 11/20/16 06:31 Dose: 500,000 units Ondansetron HCl (Zofran Injection) 8 mg IVPB Q6H PRN PRN Reason: NAUSEA AND/OR VOMITING Tamsulosin HCl (Flomax -) 0.4 mg PO DAILY@0830 [facility] Last Admin: 11/20/16 10:03 Dose: 0.4 mg - Objective Vital Signs: Vital Signs Temperature 99.2 F 11/20/16 06:00 Pulse Rate 80 11/20/16 06:00 Respiratory Rate 20 11/20/16 06:00 Blood Pressure 140/80 11/20/16 06:00 O2 Sat by Pulse Oximetry (%) 100 11/20/16 06:00 Constitutional: Yes: No Distress, Calm Cardiovascular: Yes: Regular Rate and Rhythm, S1, S2 Respiratory: Yes: Regular, CTA Bilaterally. No: Rales Gastrointestinal: Yes: Normal Bowel Sounds, Soft. No: Tenderness Edema: No Neurological: Yes: Alert, Oriented Labs: CBC, BMP 11/20/16 06:30 11/20/16 06:30 Problem List - Problems (1) Small bowel mass Code(s): K63.89 - OTHER SPECIFIED DISEASES OF INTESTINE (2) SBO (small bowel obstruction) Code(s): K56.69 - OTHER INTESTINAL OBSTRUCTION (3) Pneumatosis intestinalis Code(s): K63.89 - OTHER SPECIFIED DISEASES OF INTESTINE (4) CHF (congestive heart failure) Code(s): I50.9 - HEART FAILURE, UNSPECIFIED (5) CVA (cerebral infarction) Code(s): I63.9 - CEREBRAL INFARCTION, UNSPECIFIED (6) Chronic obstructive pulmonary disease Code(s): J44.9 - CHRONIC OBSTRUCTIVE PULMONARY DISEASE, UNSPECIFIED (7) Hyperlipidemia Code(s): E78.5 - HYPERLIPIDEMIA, UNSPECIFIED (8) Hypokalemia due to inadequate potassium intake Code(s): E87.6 - HYPOKALEMIA (9) Hypophosphatemia Code(s): E83.39 - OTHER DISORDERS OF PHOSPHORUS METABOLISM (10) HTN (hypertension) Code(s): I10 - ESSENTIAL (PRIMARY) HYPERTENSION (11) Hypomagnesemia Code(s): E83.42 - HYPOMAGNESEMIA (12) Bandemia Code(s): D72.825 - BANDEMIA (13) Pneumonia Code(s): J18.9 - PNEUMONIA, UNSPECIFIED ORGANISM (14) Hypoalbuminemia Code(s): E88.09 - OTH DISORDERS OF PLASMA-PROTEIN METABOLISM, NEC (15) Elevated LFTs Code(s): R79.89 - OTHER SPECIFIED ABNORMAL FINDINGS OF BLOOD CHEMISTRY (16) Urinary retention Code(s): R33.9 - RETENTION OF URINE, UNSPECIFIED (17) Abdominal aneurysm Code(s): I71.4 - ABDOMINAL AORTIC ANEURYSM, WITHOUT RUPTURE (18) Depression Code(s): F32.9 - MAJOR DEPRESSIVE DISORDER, SINGLE EPISODE, UNSPECIFIED (19) Dysphagia Code(s): R13.10 - DYSPHAGIA, UNSPECIFIED Assessment/Plan GI and surgical f/u appreciated post OP day 29. Pt with Hx/o + BCX, LLL PNA, s/p IV abtx Pt wants his to make medical decisions if he cannot; both daughters agree with pt. All family's questions were answered. Pt is hemodynamically stable. Pt had poor PO intake; pt with N and V for couple of days; NGT was reinserted again; pt removed NGT. Pt is s/p MBS, + for silent aspiration (diet was changed).. Pt tolerates PO meds Pt off TPN. Pt. is s/p left PICC Line placement; pt removed it. To change Robitussin to scheduled status. I encourage PO intake, OOBTC Started Remeron (dose was increased), MVI. Swallow evaluation appreciated. I spoke with pt and family about my concern related to poor PO intake, possible the need for TF vs palliative care. All questions were answered. Add nystatin swish and swallow. Psychiatry consult and f/u appreciated. To decrease IVF, encourage pt to drink more fluids AM labs. Prognosis: reserved. Case was d/w pt's nurse.
--- NOTE | 2016-11-20 14:52 | PN ---
Progress Note, Physician Chief Complaint: Pt awake; lying in bed; more alert. States he knows he has to eat more, and details the foods he plans to eat more of.Denies chest pain or dyspnea. History of Present Illness: 81-year-old black male with no history of abdominal surgery presents to the emergency department complaining of periumbilical 6/10 sharp nonradiating intermittent discomfort with nausea no vomiting, fever, chills, chest pain, shortness of breath, flank pains, urinary symptoms. There are no alleviating or exacerbating factors. Last bowel movement 4 days ago. - Current Medication List Current Medications: Active Medications Aclidinium [place] (Tudorza -) 1 puff IH BID [facility] Last Admin: 11/20/16 10:05 Dose: 1 puff Amlodipine Besylate (Norvasc -) 10 mg PO DAILY [facility] Last Admin: 11/20/16 10:03 Dose: 10 mg Guaifenesin (Robitussin Dm -) 10 ml PO Q4HWA [facility] Last Admin: 11/20/16 14:10 Dose: Not Given IV Flush (Picc Line Flush) 8 ml IVPUSH PRN PRN PRN Reason: Protocol Dextrose/Sodium Chloride (Dextrose 5%-Normal Saline+20 Meq Kcl -) 1,000 mls @ 50 mls/hr IV ASDIR [facility] Insulin Aspart (Novolog Vial Sliding Scale -) 1 vial SQ BIDAC [facility] PRN Reason: Protocol Last Admin: 11/20/16 06:36 Dose: 2 units Metoclopramide HCl (Reglan -) 10 mg PO TIDAC PRN PRN Reason: NAUSEA AND/OR VOMITING Metoprolol Tartrate (Lopressor -) 50 mg PO BID [facility] Last Admin: 11/20/16 10:03 Dose: 50 mg Mirtazapine (Remeron -) 15 mg PO HS [facility] Last Admin: 11/19/16 22:35 Dose: 15 mg Multivitamins (Thera-Plus -) 15 ml PO DAILY [facility] Last Admin: 11/20/16 10:04 Dose: 15 ml Systane Ultra Eye (Drops) 1 each OU BID [facility] Last Admin: 11/20/16 10:06 Dose: 1 each Travatan 0.004% Eye (Drops) 1 each OU HS [facility] Last Admin: 11/19/16 22:38 Dose: 1 each Nystatin (Nystatin Oral Suspension -) 500,000 units PO Q6HPO [facility] Last Admin: 11/20/16 14:10 Dose: Not Given Ondansetron HCl (Zofran Injection) 8 mg IVPB Q6H PRN PRN Reason: NAUSEA AND/OR VOMITING Tamsulosin HCl (Flomax -) 0.4 mg PO DAILY@0830 [facility] Last Admin: 11/20/16 10:03 Dose: 0.4 mg - Objective Vital Signs: Vital Signs Temperature 99.2 F 11/20/16 10:00 Pulse Rate 97 H 11/20/16 10:00 Respiratory Rate 20 11/20/16 10:00 Blood Pressure 147/59 11/20/16 10:00 O2 Sat by Pulse Oximetry (%) 97 11/20/16 09:00 Constitutional: Yes: No Distress Eyes: Yes: WNL HENT: Yes: WNL Neck: Yes: WNL Cardiovascular: Yes: Regular Rate and Rhythm Respiratory: Yes: Regular Gastrointestinal: Yes: Soft. No: Tenderness ...Rectal Exam: Yes: Deferred Genitourinary: No: Anuria Musculoskeletal: Yes: Muscle Weakness Extremities: Yes: Cool Edema: No Peripheral Pulses WNL: Yes Integumentary: Yes: Incision Wound/Incision: Yes: Open to air Neurological: Yes: Alert, Weakness Psychiatric: Yes: Other Labs: CBC, BMP 11/20/16 06:30 11/20/16 06:30 Problem List - Problems (1) Diastolic CHF Assessment/Plan: Continue present medications ( increased amlodipine to 10 mg daily for HTN; again on metoprolol, and off labetalol, due to PSVT). Consider spironolactone (diastolic heart failure) and ACEI (HTN; DM). Physical rehabilitation. Code(s): I50.30 - UNSPECIFIED DIASTOLIC (CONGESTIVE) HEART FAILURE (2) Hyperlipidemia Assessment/Plan: On atorvastatin; keep LDL cholesterol < 70 mg/dL. Code(s): E78.5 - HYPERLIPIDEMIA, UNSPECIFIED (3) PSVT (paroxysmal supraventricular tachycardia) Assessment/Plan: On metoprolol. Maintain electrolytes WNL. Code(s): I47.1 - SUPRAVENTRICULAR TACHYCARDIA (4) SBO (small bowel obstruction) Assessment/Plan: Nontender abdomen. f/u with surgeon. Code(s): K56.69 - OTHER INTESTINAL OBSTRUCTION (5) Small bowel mass Code(s): K63.89 - OTHER SPECIFIED DISEASES OF INTESTINE (6) HTN (hypertension) Assessment/Plan: On metoprolol; can change to ER for better 24 hour coverage and compliance. On amlodipine; increased to 10 mg daily; BP is now better-controlled. Consider adding ACEI, ARB (hypokalemic; HTN; DM); if diuretic added, guard against further electrolyte depletion. Serial BP and HR checks. Code(s): I10 - ESSENTIAL (PRIMARY) HYPERTENSION (7) Weakness Code(s): R53.1 - WEAKNESS (8) Hypothyroid Assessment/Plan: decreased TSH; free T4 mildly elevated. Code(s): E03.9 - HYPOTHYROIDISM, UNSPECIFIED (9) Hypokalemia Assessment/Plan: Keep K+ 4-4.5 (hx PSVT); Keep Mg 2-2.3 Keep Po4 2.5-3.5. Would add lisinopril for HTN, ?DM (elevated glucose; f/u HGBA1c). Code(s): E87.6 - HYPOKALEMIA (10) Hyperglycemia Assessment/Plan: HGBA1c 7.3 Consider adding ACEI for HTN, ?DM, Code(s): R73.9 - HYPERGLYCEMIA, UNSPECIFIED
--- NOTE | 2016-11-20 15:05 | PN ---
Progress Note, Physician Chief Complaint: Pt awake; lying in bed; flat affect again (daughter repeatedly asks him to focus on her, as he tends to stare, and to answer questions). Says he is depressed. He says he felt uncomfortable in his stomach earlier, which made him not want to eat. History of Present Illness: 81-year-old black male with no history of abdominal surgery presents to the emergency department complaining of periumbilical 6/10 sharp nonradiating intermittent discomfort with nausea no vomiting, fever, chills, chest pain, shortness of breath, flank pains, urinary symptoms. There are no alleviating or exacerbating factors. Last bowel movement 4 days ago. - Current Medication List Current Medications: Active Medications Aclidinium [place] (Tudorza -) 1 puff IH BID [facility] Last Admin: 11/20/16 10:05 Dose: 1 puff Amlodipine Besylate (Norvasc -) 10 mg PO DAILY [facility] Last Admin: 11/20/16 10:03 Dose: 10 mg Guaifenesin (Robitussin Dm -) 10 ml PO Q4HWA [facility] Last Admin: 11/20/16 14:10 Dose: Not Given IV Flush (Picc Line Flush) 8 ml IVPUSH PRN PRN PRN Reason: Protocol Dextrose/Sodium Chloride (Dextrose 5%-Normal Saline+20 Meq Kcl -) 1,000 mls @ 50 mls/hr IV ASDIR [facility] Insulin Aspart (Novolog Vial Sliding Scale -) 1 vial SQ BIDAC [facility] PRN Reason: Protocol Last Admin: 11/20/16 06:36 Dose: 2 units Lisinopril (Prinivil) 2.5 mg PO DAILY [facility] Metoclopramide HCl (Reglan -) 10 mg PO TIDAC PRN PRN Reason: NAUSEA AND/OR VOMITING Metoprolol Tartrate (Lopressor -) 50 mg PO BID [facility] Last Admin: 11/20/16 10:03 Dose: 50 mg Mirtazapine (Remeron -) 15 mg PO HS [facility] Last Admin: 11/19/16 22:35 Dose: 15 mg Multivitamins (Thera-Plus -) 15 ml PO DAILY [facility] Last Admin: 11/20/16 10:04 Dose: 15 ml Systane Ultra Eye (Drops) 1 each OU BID [facility] Last Admin: 11/20/16 10:06 Dose: 1 each Travatan 0.004% Eye (Drops) 1 each OU HS [facility] Last Admin: 11/19/16 22:38 Dose: 1 each Nystatin (Nystatin Oral Suspension -) 500,000 units PO Q6HPO [facility] Last Admin: 11/20/16 14:10 Dose: Not Given Ondansetron HCl (Zofran Injection) 8 mg IVPB Q6H PRN PRN Reason: NAUSEA AND/OR VOMITING Tamsulosin HCl (Flomax -) 0.4 mg PO DAILY@0830 [facility] Last Admin: 11/20/16 10:03 Dose: 0.4 mg - Objective Vital Signs: Vital Signs Temperature 99.2 F 11/20/16 10:00 Pulse Rate 97 H 11/20/16 10:00 Respiratory Rate 20 11/20/16 10:00 Blood Pressure 147/59 11/20/16 10:00 O2 Sat by Pulse Oximetry (%) 97 11/20/16 09:00 Constitutional: Yes: Thin Eyes: Yes: WNL HENT: Yes: WNL Neck: Yes: WNL Cardiovascular: Yes: Regular Rate and Rhythm Respiratory: Yes: Regular Gastrointestinal: Yes: Soft. No: Tenderness ...Rectal Exam: Yes: Deferred Genitourinary: No: Anuria Musculoskeletal: Yes: Muscle Weakness Extremities: Yes: Cool Peripheral Pulses WNL: Yes Integumentary: Yes: Incision Wound/Incision: Yes: Open to air Neurological: Yes: Weakness Psychiatric: Yes: Other (depression) Labs: CBC, BMP 11/20/16 06:30 11/20/16 06:30 Abnormal Lab Results 11/20/16 06:30 BUN 4 L D Creatinine 0.5 L Random Glucose 145 H Total Protein 5.9 L Albumin 2.1 L Problem List - Problems (1) Diastolic CHF Assessment/Plan: Continue present medications ( increased amlodipine to 10 mg daily for HTN; again on metoprolol, and off labetalol, due to PSVT). Started lisinopril 2.5 mg daily. Physical rehabilitation. Code(s): I50.30 - UNSPECIFIED DIASTOLIC (CONGESTIVE) HEART FAILURE (2) Hyperlipidemia Assessment/Plan: On atorvastatin; keep LDL cholesterol < 70 mg/dL. Code(s): E78.5 - HYPERLIPIDEMIA, UNSPECIFIED (3) PSVT (paroxysmal supraventricular tachycardia) Assessment/Plan: On metoprolol. Maintain electrolytes WNL. Code(s): I47.1 - SUPRAVENTRICULAR TACHYCARDIA (4) SBO (small bowel obstruction) Assessment/Plan: Nontender abdomen. f/u with surgeon. Increase physical rehabilktation. Diet adjustment. Code(s): K56.69 - OTHER INTESTINAL OBSTRUCTION (5) Small bowel mass Code(s): K63.89 - OTHER SPECIFIED DISEASES OF INTESTINE (6) HTN (hypertension) Assessment/Plan: elevated BP. On metoprolol; can change to ER for better 24 hour coverage and compliance. On amlodipine; increased to 10 mg daily; BP is now better-controlled. Start lisinopril 2.5 mg daily. Code(s): I10 - ESSENTIAL (PRIMARY) HYPERTENSION (7) Weakness Code(s): R53.1 - WEAKNESS (8) Hypothyroid Assessment/Plan: decreased TSH; free T4 mildly elevated. Code(s): E03.9 - HYPOTHYROIDISM, UNSPECIFIED (9) Hypokalemia Assessment/Plan: Keep K+ 4-4.5 (hx PSVT); Keep Mg 2-2.3 Keep Po4 2.5-3.5. Added lisinopril for HTN, DM. Code(s): E87.6 - HYPOKALEMIA (10) Hyperglycemia Assessment/Plan: HGBA1c 7.3 Added ACEI for HTN, ?DM, Code(s): R73.9 - HYPERGLYCEMIA, UNSPECIFIED (11) Depression Assessment/Plan: Agree with addition of antidepressant (started, as per pt's daughter). Code(s): F32.9 - MAJOR DEPRESSIVE DISORDER, SINGLE EPISODE, UNSPECIFIED
[2016-11-20] MEDS: LISINOPRIL 5 MG TABLET (FP) PO SCH (16:05)
[2016-11-20] MEDS: MIRTAZAPINE 15 MG TABLET (FP) PO SCH (22:39)
[2016-11-20] MEDS: TRAVATAN 0.004% OU SCH (22:40)
[2016-11-20] MEDS: EYE OU SCH (22:40)
[2016-11-21] MEDS: guaiFENesin/D-METHORPHAN HB 10 ML UNIT-DOSE CUPS PO SCH ×5 (05:50→22:14)
[2016-11-21] MEDS: NYSTATIN 500,000 UNITS/5 ML SUSPENSION PO SCH ×3 (05:50→17:27)
[2016-11-21] MEDS: INSULIN SLIDING SCALE (NOVOLOG) 1 VIAL SQ SCH ×2 (06:36→16:30)
[2016-11-21 07:58] LABS: ANION GAP 8 (8-16); CALCIUM 8.7 mg/dL (8.5-10.1); CO2 26 mmol/L (21-32); GLUCOSE,RANDOM 203 mg/dL (74-106); MAGNESIUM 1.5 mg/dL (1.8-2.4)
[2016-11-21 07:59] LABS: CREATININE 0.6 mg/dL (0.7-1.3)
--- NOTE | 2016-11-21 08:27 | PN ---
Progress Note, Physician History of Present Illness: 81 year old man with a history of HTN, HLD, COPD, CVA, AAA admitted with abdominal discomfort and constipation concerning for SBO. Pt seen and examined today in nad. He states that he had multiple small BM's yesterday and overnight. denies any current abd pain. denies chest pain, sob, palpitations. no pnd, orthopnea, or LE edema. NG tube in place. PMH LE angio 02/21/2015 Dr. 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 DCB 08/10/2014 Dr Alcazar PCI LCx 09/20/2014 Dr Alcazar Medical History Reviewed Condition Date Treating Physician Comments Claudication, intermittent HTN Hyperlipidemia TIA/CVA - Current Medication List Current Medications: Active Medications Aclidinium [place] (Tudorza -) 1 puff IH BID [facility] Last Admin: 11/20/16 22:41 Dose: 1 puff Amlodipine Besylate (Norvasc -) 10 mg PO DAILY [facility] Last Admin: 11/20/16 10:03 Dose: 10 mg Guaifenesin (Robitussin Dm -) 10 ml PO Q4HWA [facility] Last Admin: 11/21/16 05:50 Dose: 10 ml IV Flush (Picc Line Flush) 8 ml IVPUSH PRN PRN PRN Reason: Protocol Dextrose/Sodium Chloride (Dextrose 5%-Normal Saline+20 Meq Kcl -) 1,000 mls @ 50 mls/hr IV ASDIR [facility] Last Admin: 11/20/16 12:04 Dose: 50 mls/hr Insulin Aspart (Novolog Vial Sliding Scale -) 1 vial SQ BIDAC [facility] PRN Reason: Protocol Last Admin: 11/21/16 06:36 Dose: Not Given Lisinopril (Prinivil) 2.5 mg PO DAILY [facility] Last Admin: 11/20/16 16:05 Dose: 2.5 mg Metoclopramide HCl (Reglan -) 10 mg PO TIDAC PRN PRN Reason: NAUSEA AND/OR VOMITING Metoprolol Tartrate (Lopressor -) 50 mg PO BID [facility] Last Admin: 11/20/16 22:39 Dose: 50 mg Mirtazapine (Remeron -) 15 mg PO HS [facility] Last Admin: 11/20/16 22:39 Dose: 15 mg Multivitamins (Thera-Plus -) 15 ml PO DAILY [facility] Last Admin: 11/20/16 10:04 Dose: 15 ml Systane Ultra Eye (Drops) 1 each OU BID [facility] Last Admin: 11/20/16 22:39 Dose: 1 each Travatan 0.004% Eye (Drops) 1 each OU HS [facility] Last Admin: 11/20/16 22:40 Dose: 1 each Nystatin (Nystatin Oral Suspension -) 500,000 units PO Q6HPO [facility] Last Admin: 11/21/16 05:50 Dose: 500,000 units Ondansetron HCl (Zofran Injection) 8 mg IVPB Q6H PRN PRN Reason: NAUSEA AND/OR VOMITING Tamsulosin HCl (Flomax -) 0.4 mg PO DAILY@0830 [facility] Last Admin: 11/20/16 10:03 Dose: 0.4 mg - Objective Vital Signs: Vital Signs Temperature 98.6 F 11/21/16 05:00 Pulse Rate 92 H 11/21/16 05:00 Respiratory Rate 16 11/21/16 05:00 Blood Pressure 142/58 11/21/16 05:00 O2 Sat by Pulse Oximetry (%) 97 11/20/16 20:00 Eyes: Yes: WNL, Conjunctiva Clear, EOM Intact HENT: Yes: WNL, Atraumatic, Normocephalic Neck: Yes: WNL, Supple, Trachea Midline Cardiovascular: Yes: WNL, Regular Rate and Rhythm Respiratory: Yes: WNL, Regular, CTA Bilaterally Gastrointestinal: Yes: WNL, Normal Bowel Sounds Genitourinary: Yes: WNL Musculoskeletal: Yes: WNL Extremities: Yes: WNL Edema: No Integumentary: Yes: WNL Neurological: Yes: WNL, Alert, Oriented ...Motor Strength: WNL Psychiatric: Yes: WNL Labs: CBC, BMP 11/20/16 06:30 11/21/16 06:00 Assessment/Plan - Problems (1) Diastolic CHF Assessment/Plan: Continue present medications ( increased amlodipine to 10 mg daily for HTN; again on metoprolol, and off labetalol, due to PSVT). Started lisinopril 2.5 mg daily. Physical rehabilitation. Code(s): I50.30 - UNSPECIFIED DIASTOLIC (CONGESTIVE) HEART FAILURE (2) Hyperlipidemia Assessment/Plan: On atorvastatin; keep LDL cholesterol < 70 mg/dL. Code(s): E78.5 - HYPERLIPIDEMIA, UNSPECIFIED (3) PSVT (paroxysmal supraventricular tachycardia) Assessment/Plan: On metoprolol. Maintain electrolytes WNL. Code(s): I47.1 - SUPRAVENTRICULAR TACHYCARDIA (4) SBO (small bowel obstruction) Assessment/Plan: Nontender abdomen. f/u with surgeon. Increase physical rehabilktation. Diet adjustment. Code(s): K56.69 - OTHER INTESTINAL OBSTRUCTION (5) Small bowel mass Code(s): K63.89 - OTHER SPECIFIED DISEASES OF INTESTINE (6) HTN (hypertension) Assessment/Plan: elevated BP. On metoprolol; can change to ER for better 24 hour coverage and compliance. On amlodipine; increased to 10 mg daily; BP is now better-controlled. Start lisinopril 2.5 mg daily. Code(s): I10 - ESSENTIAL (PRIMARY) HYPERTENSION (7) Weakness Code(s): R53.1 - WEAKNESS (8) Hypothyroid Assessment/Plan: decreased TSH; free T4 mildly elevated. Code(s): E03.9 - HYPOTHYROIDISM, UNSPECIFIED (9) Hypokalemia Assessment/Plan: Keep K+ 4-4.5 (hx PSVT); Keep Mg 2-2.3 Keep Po4 2.5-3.5. Added lisinopril for HTN, DM. Code(s): E87.6 - HYPOKALEMIA (10) Hyperglycemia Assessment/Plan: HGBA1c 7.3 Added ACEI for HTN, ?DM, Code(s): R73.9 - HYPERGLYCEMIA, UNSPECIFIED (11) Depression Assessment/Plan: Agree with addition of antidepressant (started, as per pt's daughter). Code(s): F32.9 - MAJOR DEPRESSIVE DISORDER, SINGLE EPISODE, UNSPECIFIED
[2016-11-21] MEDS: D5-NS + 20 MEQ KCL - 1,000 ML IV SCH (09:20)
[2016-11-21] MEDS ORDERED: LISINOPRIL 5 MG TABLET (FP) PO SCH ×2 (10:00→15:45)
[2016-11-21] MEDS: amLODIPine BESYLATE 10 MG TABLET (FP) PO SCH (10:08)
[2016-11-21] MEDS: LISINOPRIL 5 MG TABLET (FP) PO SCH (10:08)
[2016-11-21] MEDS: METOPROLOL TARTRATE 50 MG TABLET (FP) PO SCH ×2 (10:08→22:13)
[2016-11-21] MEDS: TAMSULOSIN HCL 0.4 MG CAP.ER.24H (FP) PO SCH (10:08)
[2016-11-21] MEDS: SYSTANE ULTRA EYE DROPS OU SCH ×2 (10:10→22:14)
[2016-11-21] MEDS: ACLIDINIUM BROMIDE 400 MCG/INH AERO.POWD IH SCH ×2 (10:10→22:13)
[2016-11-21] MEDS: MULTIVITAMINS LIQUID THERAPEUTIC 118 ML BOT PO SCH (10:10)
--- NOTE | 2016-11-21 13:01 | PN ---
Progress Note, Physician History of Present Illness: Pt was transferred from ICU to Telemetry to medical floor Post op day 30 Pt removed NGT. Pt diet was advanced but has poor PO intake. Pt is s/p MBS, + for silent aspiration (diet was changed). Pt with cough, improved, persistent, clear sputum Pt without N, V; pt has no abdominal pain Pt w/o fever, chills. Pt w/o CP, SOB, Palp. Pt with depressed mood. - Current Medication List Current Medications: Active Medications Aclidinium [place] (Tudorza -) 1 puff IH BID [facility] Last Admin: 11/21/16 10:10 Dose: 1 puff Amlodipine Besylate (Norvasc -) 10 mg PO DAILY [facility] Last Admin: 11/21/16 10:08 Dose: 10 mg Guaifenesin (Robitussin Dm -) 10 ml PO Q4HWA [facility] Last Admin: 11/21/16 10:09 Dose: 10 ml IV Flush (Picc Line Flush) 8 ml IVPUSH PRN PRN PRN Reason: Protocol Dextrose/Sodium Chloride (Dextrose 5%-Normal Saline+20 Meq Kcl -) 1,000 mls @ 50 mls/hr IV ASDIR [facility] Last Admin: 11/21/16 09:20 Dose: 50 mls/hr Insulin Aspart (Novolog Vial Sliding Scale -) 1 vial SQ BIDAC [place] PRN Reason: Protocol Last Admin: 11/21/16 06:36 Dose: Not Given Lisinopril (Prinivil) 2.5 mg PO DAILY [facility] Last Admin: 11/21/16 10:08 Dose: 2.5 mg Metoclopramide HCl (Reglan -) 10 mg PO TIDAC PRN PRN Reason: NAUSEA AND/OR VOMITING Metoprolol Tartrate (Lopressor -) 50 mg PO BID [facility] Last Admin: 11/21/16 10:08 Dose: 50 mg Mirtazapine (Remeron -) 15 mg PO HS [facility] Last Admin: 11/20/16 22:39 Dose: 15 mg Multivitamins (Thera-Plus -) 15 ml PO DAILY [facility] Last Admin: 11/21/16 10:10 Dose: 15 ml Systane Ultra Eye (Drops) 1 each OU BID [facility] Last Admin: 11/21/16 10:10 Dose: 1 each Travatan 0.004% Eye (Drops) 1 each OU HS [facility] Last Admin: 11/20/16 22:40 Dose: 1 each Nystatin (Nystatin Oral Suspension -) 500,000 units PO Q6HPO [facility] Last Admin: 11/21/16 11:40 Dose: 500,000 units Ondansetron HCl (Zofran Injection) 8 mg IVPB Q6H PRN PRN Reason: NAUSEA AND/OR VOMITING Tamsulosin HCl (Flomax -) 0.4 mg PO DAILY@0830 [facility] Last Admin: 11/21/16 10:08 Dose: 0.4 mg - Objective Vital Signs: Vital Signs Temperature 98.5 F 11/21/16 08:25 Pulse Rate 91 H 11/21/16 08:25 Respiratory Rate 18 11/21/16 08:25 Blood Pressure 124/86 11/21/16 08:25 O2 Sat by Pulse Oximetry (%) 97 11/20/16 20:00 Constitutional: Yes: No Distress, Calm Cardiovascular: Yes: Regular Rate and Rhythm, S1, S2 Respiratory: Yes: Regular, CTA Bilaterally. No: Rales Gastrointestinal: Yes: Normal Bowel Sounds, Soft, Tenderness (minimal with palpation) Edema: No Neurological: Yes: Alert, Oriented (place, person) Labs: CBC, BMP 11/20/16 06:30 11/21/16 06:00 Problem List - Problems (1) Small bowel mass Code(s): K63.89 - OTHER SPECIFIED DISEASES OF INTESTINE (2) SBO (small bowel obstruction) Code(s): K56.69 - OTHER INTESTINAL OBSTRUCTION (3) Pneumatosis intestinalis Code(s): K63.89 - OTHER SPECIFIED DISEASES OF INTESTINE (4) CHF (congestive heart failure) Code(s): I50.9 - HEART FAILURE, UNSPECIFIED (5) CVA (cerebral infarction) Code(s): I63.9 - CEREBRAL INFARCTION, UNSPECIFIED (6) Chronic obstructive pulmonary disease Code(s): J44.9 - CHRONIC OBSTRUCTIVE PULMONARY DISEASE, UNSPECIFIED (7) Hyperlipidemia Code(s): E78.5 - HYPERLIPIDEMIA, UNSPECIFIED (8) Hypokalemia due to inadequate potassium intake Code(s): E87.6 - HYPOKALEMIA (9) Hypophosphatemia Code(s): E83.39 - OTHER DISORDERS OF PHOSPHORUS METABOLISM (10) HTN (hypertension) Code(s): I10 - ESSENTIAL (PRIMARY) HYPERTENSION (11) Hypomagnesemia Assessment/Plan: replete; monitor Mg Code(s): E83.42 - HYPOMAGNESEMIA (12) Bandemia Code(s): D72.825 - BANDEMIA (13) Pneumonia Code(s): J18.9 - PNEUMONIA, UNSPECIFIED ORGANISM (14) Hypoalbuminemia Code(s): E88.09 - OTH DISORDERS OF PLASMA-PROTEIN METABOLISM, NEC (15) Elevated LFTs Code(s): R79.89 - OTHER SPECIFIED ABNORMAL FINDINGS OF BLOOD CHEMISTRY (16) Urinary retention Code(s): R33.9 - RETENTION OF URINE, UNSPECIFIED (17) Abdominal aneurysm Code(s): I71.4 - ABDOMINAL AORTIC ANEURYSM, WITHOUT RUPTURE (18) Depression Code(s): F32.9 - MAJOR DEPRESSIVE DISORDER, SINGLE EPISODE, UNSPECIFIED (19) Dysphagia Code(s): R13.10 - DYSPHAGIA, UNSPECIFIED Assessment/Plan GI and surgical f/u appreciated post OP day 30. Pt with Hx/o + BCX, LLL PNA, s/p IV abtx Pt wants his to make medical decisions if he cannot; both daughters agree with pt. All family's questions were answered. Pt is hemodynamically stable. Pt had poor PO intake; pt with N and V for couple of days; NGT was reinserted again; pt removed NGT. Pt is s/p MBS, + for silent aspiration (diet was changed).. Pt tolerates PO meds Pt off TPN. Pt. is s/p left PICC Line placement; pt removed it. I encourage PO intake, OOBTC Started Remeron (dose was increased), MVI. Swallow evaluation appreciated. I spoke with pt and family about my concern related to poor PO intake, possible the need for TF vs palliative care. All questions were answered. Add nystatin swish and swallow. Psychiatry consult and f/u appreciated. To decrease IVF, encourage pt to drink more fluids. 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 Pt is undergoing calories count that would end Wednesday night; familly aware that below 50% intake is a low chance for meaningful recovery. AM labs. Prognosis: reserved. Case was d/w pt's nurse.
[2016-11-21] MEDS ORDERED: MAGNESIUM SULF 50% (8.12 MEQ/2 ML-1 GM VIAL) IVPB ONE ×2 (13:02→16:30)
[2016-11-21] MEDS ORDERED: INSULIN (NOVOLOG) ASPART 100 UNITS/ML 10ML VIAL ONE (16:18)
[2016-11-21] MEDS: MIRTAZAPINE 15 MG TABLET (FP) PO SCH (22:13)
[2016-11-21] MEDS: EYE OU SCH (22:14)
[2016-11-21] MEDS: TRAVATAN 0.004% OU SCH (22:14)
[2016-11-22] MEDS: NYSTATIN 500,000 UNITS/5 ML SUSPENSION PO SCH ×4 (01:12→17:36)
[2016-11-22] MEDS: guaiFENesin/D-METHORPHAN HB 10 ML UNIT-DOSE CUPS PO SCH ×5 (06:16→22:46)
[2016-11-22] MEDS: INSULIN SLIDING SCALE (NOVOLOG) 1 VIAL SQ SCH ×2 (06:17→16:41)
[2016-11-22 08:23] LABS: ANION GAP 7 (8-16); CALCIUM 8.7 mg/dL (8.5-10.1); CO2 27 mmol/L (21-32); CREATININE 0.5 mg/dL (0.7-1.3); GLUCOSE,RANDOM 126 mg/dL (74-106)
[2016-11-22] MEDS: TAMSULOSIN HCL 0.4 MG CAP.ER.24H (FP) PO SCH (08:34)
[2016-11-22] MEDS ORDERED: PT OWN MED DRAWER 7, Y5N ONE (09:26)
[2016-11-22] MEDS: amLODIPine BESYLATE 10 MG TABLET (FP) PO SCH (09:32)
[2016-11-22] MEDS: LISINOPRIL 5 MG TABLET (FP) PO SCH (09:32)
[2016-11-22] MEDS: METOPROLOL TARTRATE 50 MG TABLET (FP) PO SCH ×2 (09:32→22:46)
[2016-11-22] MEDS: MULTIVITAMINS LIQUID THERAPEUTIC 118 ML BOT PO SCH (09:34)
[2016-11-22] MEDS: ACLIDINIUM BROMIDE 400 MCG/INH AERO.POWD IH SCH ×2 (09:34→22:47)
[2016-11-22] MEDS: SYSTANE ULTRA EYE DROPS OU SCH ×2 (09:34→22:46)
[2016-11-22] MEDS: D5-NS + 20 MEQ KCL - 1,000 ML IV SCH (11:11)
--- NOTE | 2016-11-22 12:20 | PN ---
Progress Note, Physician History of Present Illness: 81 year old man with a history of HTN, HLD, COPD, CVA, AAA admitted with abdominal discomfort and constipation concerning for SBO. Pt seen and examined today in nad. He states that he had multiple small BM's yesterday and overnight. denies any current abd pain. denies chest pain, sob, palpitations. no pnd, orthopnea, or LE edema. NG tube in place. PMH LE angio 02/21/2015 Dr. 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 08/10/2014 Dr Alcazar PCI LCx 09/20/2014 Dr Alcazar Medical History Reviewed Condition Date Treating Physician Comments Claudication, intermittent HTN Hyperlipidemia TIA/CVA - Current Medication List Current Medications: Active Medications Aclidinium [place] (Tudorza -) 1 puff IH BID [facility] Last Admin: 11/22/16 09:34 Dose: 1 puff Amlodipine Besylate (Norvasc -) 10 mg PO DAILY [facility] Last Admin: 11/22/16 09:32 Dose: 10 mg Guaifenesin (Robitussin Dm -) 10 ml PO Q4HWA [facility] Last Admin: 11/22/16 09:33 Dose: 10 ml IV Flush (Picc Line Flush) 8 ml IVPUSH PRN PRN PRN Reason: Protocol Dextrose/Sodium Chloride (Dextrose 5%-Normal Saline+20 Meq Kcl -) 1,000 mls @ 50 mls/hr IV ASDIR [facility] Last Admin: 11/22/16 11:11 Dose: 50 mls/hr Insulin Aspart (Novolog Vial Sliding Scale -) 1 vial SQ BIDAC [facility] PRN Reason: Protocol Last Admin: 11/22/16 06:17 Dose: Not Given Lisinopril (Prinivil) 2.5 mg PO DAILY [facility] Last Admin: 11/22/16 09:32 Dose: 2.5 mg Metoclopramide HCl (Reglan -) 10 mg PO TIDAC PRN PRN Reason: NAUSEA AND/OR VOMITING Metoprolol Tartrate (Lopressor -) 50 mg PO BID [facility] Last Admin: 11/22/16 09:32 Dose: 50 mg Mirtazapine (Remeron -) 15 mg PO HS [facility] Last Admin: 11/21/16 22:13 Dose: 15 mg Multivitamins (Thera-Plus -) 15 ml PO DAILY [facility] Last Admin: 11/22/16 09:34 Dose: 15 ml Systane Ultra Eye (Drops) 1 each OU BID [facility] Last Admin: 11/22/16 09:34 Dose: 1 each Travatan 0.004% Eye (Drops) 1 each OU HS [facility] Last Admin: 11/21/16 22:14 Dose: 1 each Nystatin (Nystatin Oral Suspension -) 500,000 units PO Q6HPO [facility] Last Admin: 11/22/16 11:27 Dose: 500,000 units Ondansetron HCl (Zofran Injection) 8 mg IVPB Q6H PRN PRN Reason: NAUSEA AND/OR VOMITING Tamsulosin HCl (Flomax -) 0.4 mg PO DAILY@0830 [facility] Last Admin: 11/22/16 08:34 Dose: 0.4 mg - Objective Vital Signs: Vital Signs Temperature 97.8 F 11/22/16 08:20 Pulse Rate 87 11/22/16 08:20 Respiratory Rate 20 11/22/16 08:20 Blood Pressure 153/74 11/22/16 08:20 O2 Sat by Pulse Oximetry (%) 97 11/21/16 21:00 Eyes: Yes: WNL, Conjunctiva Clear, EOM Intact HENT: Yes: WNL, Atraumatic, Normocephalic Neck: Yes: WNL, Supple, Trachea Midline Cardiovascular: Yes: WNL, Regular Rate and Rhythm Respiratory: Yes: WNL, Regular, CTA Bilaterally Gastrointestinal: Yes: WNL, Normal Bowel Sounds Genitourinary: Yes: WNL Musculoskeletal: Yes: WNL Extremities: Yes: WNL Edema: No Integumentary: Yes: WNL Neurological: Yes: WNL, Alert, Oriented ...Motor Strength: WNL Psychiatric: Yes: WNL Labs: CBC, BMP 11/20/16 06:30 11/22/16 06:00 Assessment/Plan - Problems (1) Diastolic CHF Assessment/Plan: Continue present medications ( increased amlodipine to 10 mg daily for HTN; again on metoprolol, and off labetalol, due to PSVT). Started lisinopril 2.5 mg daily. Physical rehabilitation. Code(s): I50.30 - UNSPECIFIED DIASTOLIC (CONGESTIVE) HEART FAILURE (2) Hyperlipidemia Assessment/Plan: On atorvastatin; keep LDL cholesterol < 70 mg/dL. Code(s): E78.5 - HYPERLIPIDEMIA, UNSPECIFIED (3) PSVT (paroxysmal supraventricular tachycardia) Assessment/Plan: On metoprolol. Maintain electrolytes WNL. Code(s): I47.1 - SUPRAVENTRICULAR TACHYCARDIA (4) SBO (small bowel obstruction) Assessment/Plan: Nontender abdomen. f/u with surgeon. Increase physical rehabilktation. Diet adjustment. Code(s): K56.69 - OTHER INTESTINAL OBSTRUCTION (5) Small bowel mass Code(s): K63.89 - OTHER SPECIFIED DISEASES OF INTESTINE (6) HTN (hypertension) Assessment/Plan: elevated BP. On metoprolol; can change to ER for better 24 hour coverage and compliance. On amlodipine; increased to 10 mg daily; BP is now better-controlled. Start lisinopril 2.5 mg daily. Code(s): I10 - ESSENTIAL (PRIMARY) HYPERTENSION (7) Weakness Code(s): R53.1 - WEAKNESS (8) Hypothyroid Assessment/Plan: decreased TSH; free T4 mildly elevated. Code(s): E03.9 - HYPOTHYROIDISM, UNSPECIFIED (9) Hypokalemia Assessment/Plan: Keep K+ 4-4.5 (hx PSVT); Keep Mg 2-2.3 Keep Po4 2.5-3.5. Added lisinopril for HTN, DM. Code(s): E87.6 - HYPOKALEMIA (10) Hyperglycemia Assessment/Plan: HGBA1c 7.3 Added ACEI for HTN, ?DM, Code(s): R73.9 - HYPERGLYCEMIA, UNSPECIFIED (11) Depression Assessment/Plan: Agree with addition of antidepressant (started, as per pt's daughter). Code(s): F32.9 - MAJOR DEPRESSIVE DISORDER, SINGLE EPISODE, UNSPECIFIED
--- NOTE | 2016-11-22 15:02 | PN ---
Progress Note, Physician History of Present Illness: Pt was transferred from ICU to Telemetry to medical floor Post op day 31 Pt removed NGT. Pt diet was advanced but has poor PO intake. Pt is s/p MBS, + for silent aspiration (diet was changed). Pt with cough, improved, persistent, clear sputum Pt without N, V; pt has no abdominal pain Pt w/o fever, chills. Pt w/o CP, SOB, Palp. Pt with depressed mood-better. - Current Medication List Current Medications: Active Medications Aclidinium [place] (Tudorza -) 1 puff IH BID [facility] Last Admin: 11/22/16 09:34 Dose: 1 puff Amlodipine Besylate (Norvasc -) 10 mg PO DAILY [facility] Last Admin: 11/22/16 09:32 Dose: 10 mg Guaifenesin (Robitussin Dm -) 10 ml PO Q4HWA [facility] Last Admin: 11/22/16 13:26 Dose: 10 ml IV Flush (Picc Line Flush) 8 ml IVPUSH PRN PRN PRN Reason: Protocol Dextrose/Sodium Chloride (Dextrose 5%-Normal Saline+20 Meq Kcl -) 1,000 mls @ 50 mls/hr IV ASDIR [facility] Last Admin: 11/22/16 11:11 Dose: 50 mls/hr Insulin Aspart (Novolog Vial Sliding Scale -) 1 vial SQ BIDAC [facility] PRN Reason: Protocol Last Admin: 11/22/16 06:17 Dose: Not Given Lisinopril (Prinivil) 2.5 mg PO DAILY [facility] Last Admin: 11/22/16 09:32 Dose: 2.5 mg Metoclopramide HCl (Reglan -) 10 mg PO TIDAC PRN PRN Reason: NAUSEA AND/OR VOMITING Metoprolol Tartrate (Lopressor -) 50 mg PO BID [facility] Last Admin: 11/22/16 09:32 Dose: 50 mg Mirtazapine (Remeron -) 15 mg PO HS [facility] Last Admin: 11/21/16 22:13 Dose: 15 mg Multivitamins (Thera-Plus -) 15 ml PO DAILY [facility] Last Admin: 11/22/16 09:34 Dose: 15 ml Systane Ultra Eye (Drops) 1 each OU BID [facility] Last Admin: 11/22/16 09:34 Dose: 1 each Travatan 0.004% Eye (Drops) 1 each OU HS [facility] Last Admin: 11/21/16 22:14 Dose: 1 each Nystatin (Nystatin Oral Suspension -) 500,000 units PO Q6HPO [facility] Last Admin: 11/22/16 11:27 Dose: 500,000 units Ondansetron HCl (Zofran Injection) 8 mg IVPB Q6H PRN PRN Reason: NAUSEA AND/OR VOMITING Tamsulosin HCl (Flomax -) 0.4 mg PO DAILY@0830 [facility] Last Admin: 11/22/16 08:34 Dose: 0.4 mg - Objective Vital Signs: Vital Signs Temperature 97.8 F 11/22/16 08:20 Pulse Rate 74 11/22/16 13:55 Respiratory Rate 20 11/22/16 08:20 Blood Pressure 153/74 11/22/16 08:20 O2 Sat by Pulse Oximetry (%) 95 11/22/16 13:55 Constitutional: Yes: No Distress, Calm Cardiovascular: Yes: Regular Rate and Rhythm, S1, S2 Respiratory: Yes: Regular, CTA Bilaterally, Rales (bases) Gastrointestinal: Yes: Normal Bowel Sounds, Soft. No: Tenderness Edema: No Neurological: Yes: Alert, Oriented Labs: CBC, BMP 11/20/16 06:30 11/22/16 06:00 Problem List - Problems (1) Small bowel mass Code(s): K63.89 - OTHER SPECIFIED DISEASES OF INTESTINE (2) SBO (small bowel obstruction) Code(s): K56.69 - OTHER INTESTINAL OBSTRUCTION (3) Pneumatosis intestinalis Code(s): K63.89 - OTHER SPECIFIED DISEASES OF INTESTINE (4) CHF (congestive heart failure) Code(s): I50.9 - HEART FAILURE, UNSPECIFIED (5) CVA (cerebral infarction) Code(s): I63.9 - CEREBRAL INFARCTION, UNSPECIFIED (6) Chronic obstructive pulmonary disease Code(s): J44.9 - CHRONIC OBSTRUCTIVE PULMONARY DISEASE, UNSPECIFIED (7) Hyperlipidemia Code(s): E78.5 - HYPERLIPIDEMIA, UNSPECIFIED (8) Hypokalemia due to inadequate potassium intake Code(s): E87.6 - HYPOKALEMIA (9) Hypophosphatemia Code(s): E83.39 - OTHER DISORDERS OF PHOSPHORUS METABOLISM (10) HTN (hypertension) Code(s): I10 - ESSENTIAL (PRIMARY) HYPERTENSION (11) Hypomagnesemia Code(s): E83.42 - HYPOMAGNESEMIA (12) Bandemia Code(s): D72.825 - BANDEMIA (13) Pneumonia Code(s): J18.9 - PNEUMONIA, UNSPECIFIED ORGANISM (14) Hypoalbuminemia Code(s): E88.09 - OTH DISORDERS OF PLASMA-PROTEIN METABOLISM, NEC (15) Elevated LFTs Code(s): R79.89 - OTHER SPECIFIED ABNORMAL FINDINGS OF BLOOD CHEMISTRY (16) Urinary retention Code(s): R33.9 - RETENTION OF URINE, UNSPECIFIED (17) Abdominal aneurysm Code(s): I71.4 - ABDOMINAL AORTIC ANEURYSM, WITHOUT RUPTURE (18) Depression Code(s): F32.9 - MAJOR DEPRESSIVE DISORDER, SINGLE EPISODE, UNSPECIFIED (19) Dysphagia Code(s): R13.10 - DYSPHAGIA, UNSPECIFIED Assessment/Plan GI and surgical f/u appreciated post OP day 31. Pt with Hx/o + BCX, LLL PNA, s/p IV abtx Pt wants his to make medical decisions if he cannot; both daughters agree with pt. All family's questions were answered. Pt is hemodynamically stable. Pt had poor PO intake; pt with N and V for couple of days; NGT was reinserted again; pt removed NGT. Pt is s/p MBS, + for silent aspiration (diet was changed).. Pt tolerates PO meds Pt off TPN. Pt. is s/p left PICC Line placement; pt removed it. I encourage PO intake, OOBTC Started Remeron (dose was increased), MVI. Swallow evaluation appreciated. I spoke with pt and family about my concern related to poor PO intake, possible the need for TF vs palliative care. All questions were answered. Add nystatin swish and swallow. Psychiatry consult and f/u appreciated. To decrease IVF, encourage pt to drink more fluids. 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 Pt is undergoing calories count that would end Wednesday night; familly aware that below 50% intake is a low chance for meaningful recovery. AM labs. Pt ate and drank better today, walked and sat in the chair for 3 hours (per dg). Prognosis: reserved. Case was d/w pt's nurse.
[2016-11-22] MEDS: MIRTAZAPINE 15 MG TABLET (FP) PO SCH (22:46)
[2016-11-22] MEDS: EYE OU SCH (22:47)
[2016-11-22] MEDS: TRAVATAN 0.004% OU SCH (22:47)
[2016-11-23] MEDS: NYSTATIN 500,000 UNITS/5 ML SUSPENSION PO SCH ×4 (00:30→17:05)
[2016-11-23] MEDS: guaiFENesin/D-METHORPHAN HB 10 ML UNIT-DOSE CUPS PO SCH ×5 (06:58→21:56)
[2016-11-23] MEDS: INSULIN SLIDING SCALE (NOVOLOG) 1 VIAL SQ SCH ×2 (06:58→17:04)
[2016-11-23] MEDS: TAMSULOSIN HCL 0.4 MG CAP.ER.24H (FP) PO SCH (08:51)
[2016-11-23 09:05] LABS: ALBUMIN 2.1 g/dl (3.4-5.0); ANION GAP 8 (8-16); BILIRUBIN,TOTAL 0.7 mg/dL (0.2-1.0); CALCIUM 8.7 mg/dL (8.5-10.1); CO2 27 mmol/L (21-32); CREATININE 0.4 mg/dL (0.7-1.3); GLUCOSE,RANDOM 118 mg/dL (74-106); MAGNESIUM 1.7 mg/dL (1.8-2.4); SGOT/AST 19 U/L (15-37); SGPT/ALT 36 U/L (12-78)
[2016-11-23 09:06] LABS: ALK PHOS 102 U/L (45-117); TOT PROT 5.7 g/dl (6.4-8.2)
[2016-11-23] MEDS: D5-NS + 20 MEQ KCL - 1,000 ML IV SCH (09:47)
[2016-11-23] MEDS ORDERED: PT OWN MED DRAWER 7, Y5N ONE (09:53)
[2016-11-23] MEDS: amLODIPine BESYLATE 10 MG TABLET (FP) PO SCH (09:55)
[2016-11-23] MEDS: METOPROLOL TARTRATE 50 MG TABLET (FP) PO SCH ×2 (09:55→21:31)
[2016-11-23] MEDS: SYSTANE ULTRA EYE DROPS OU SCH ×2 (09:56→21:31)
[2016-11-23] MEDS: LISINOPRIL 5 MG TABLET (FP) PO SCH (09:57)
[2016-11-23] MEDS: MULTIVITAMINS LIQUID THERAPEUTIC 118 ML BOT PO SCH (09:58)
[2016-11-23] MEDS: ACLIDINIUM BROMIDE 400 MCG/INH AERO.POWD IH SCH ×2 (09:59→21:33)
--- NOTE | 2016-11-23 12:18 | PN ---
Progress Note, Physician History of Present Illness: 81 year old man with a history of HTN, HLD, COPD, CVA, AAA admitted with abdominal discomfort and constipation concerning for SBO. Pt seen and examined today in nad. He states that he had multiple small BM's yesterday and overnight. denies any current abd pain. denies chest pain, sob, palpitations. no pnd, orthopnea, or LE edema. NG tube in place. 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 DCB 08/10/2014 Dr Alcazar PCI LCx 09/20/2014 Dr Alcazar Medical History Reviewed Condition Date Treating Physician Comments Claudication, intermittent HTN Hyperlipidemia TIA/CVA - Current Medication List Current Medications: Active Medications Aclidinium [place] (Tudorza -) 1 puff IH BID [facility] Last Admin: 11/23/16 09:59 Dose: 1 puff Amlodipine Besylate (Norvasc -) 10 mg PO DAILY [facility] Last Admin: 11/23/16 09:55 Dose: 10 mg Guaifenesin (Robitussin Dm -) 10 ml PO Q4HWA [facility] Last Admin: 11/23/16 09:57 Dose: 10 ml IV Flush (Picc Line Flush) 8 ml IVPUSH PRN PRN PRN Reason: Protocol Dextrose/Sodium Chloride (Dextrose 5%-Normal Saline+20 Meq Kcl -) 1,000 mls @ 50 mls/hr IV ASDIR [facility] Last Admin: 11/23/16 09:47 Dose: 50 mls/hr Insulin Aspart (Novolog Vial Sliding Scale -) 1 vial SQ BIDAC [facility] PRN Reason: Protocol Last Admin: 11/23/16 06:58 Dose: Not Given Lisinopril (Prinivil) 2.5 mg PO DAILY [facility] Last Admin: 11/23/16 09:57 Dose: 2.5 mg Metoclopramide HCl (Reglan -) 10 mg PO TIDAC PRN PRN Reason: NAUSEA AND/OR VOMITING Metoprolol Tartrate (Lopressor -) 50 mg PO BID [facility] Last Admin: 11/23/16 09:55 Dose: 50 mg Mirtazapine (Remeron -) 15 mg PO HS [facility] Last Admin: 11/22/16 22:46 Dose: 15 mg Multivitamins (Thera-Plus -) 15 ml PO DAILY [facility] Last Admin: 11/23/16 09:58 Dose: 15 ml Systane Ultra Eye (Drops) 1 each OU BID [facility] Last Admin: 11/23/16 09:56 Dose: 1 each [place] 0.004% Eye (Drops) 1 each OU HS [facility] Last Admin: 11/22/16 22:47 Dose: 1 each Nystatin (Nystatin Oral Suspension -) 500,000 units PO Q6HPO [facility] Last Admin: 11/23/16 12:17 Dose: 500,000 units Ondansetron HCl (Zofran Injection) 8 mg IVPB Q6H PRN PRN Reason: NAUSEA AND/OR VOMITING Tamsulosin HCl (Flomax -) 0.4 mg PO DAILY@0830 [facility] Last Admin: 11/23/16 08:51 Dose: 0.4 mg - Objective Vital Signs: Vital Signs Temperature 98.0 F 11/23/16 09:45 Pulse Rate 82 11/23/16 10:35 Respiratory Rate 20 11/23/16 09:49 Blood Pressure 122/65 11/23/16 09:49 O2 Sat by Pulse Oximetry (%) 95 11/23/16 10:35 Eyes: Yes: WNL, Conjunctiva Clear, EOM Intact HENT: Yes: WNL, Atraumatic, Normocephalic Neck: Yes: WNL, Supple, Trachea Midline Cardiovascular: Yes: WNL, Regular Rate and Rhythm Respiratory: Yes: WNL, Regular, CTA Bilaterally Gastrointestinal: Yes: WNL, Normal Bowel Sounds Genitourinary: Yes: WNL Musculoskeletal: Yes: WNL Extremities: Yes: WNL Edema: No Integumentary: Yes: WNL Neurological: Yes: WNL, Alert, Oriented ...Motor Strength: WNL Psychiatric: Yes: WNL Labs: CBC, BMP 11/20/16 06:30 11/23/16 08:15 Assessment/Plan - Problems (1) Diastolic CHF Assessment/Plan: Continue present medications ( increased amlodipine to 10 mg daily for HTN; again on metoprolol, and off labetalol, due to PSVT). Started lisinopril 2.5 mg daily. Physical rehabilitation. Code(s): I50.30 - UNSPECIFIED DIASTOLIC (CONGESTIVE) HEART FAILURE (2) Hyperlipidemia Assessment/Plan: On atorvastatin; keep LDL cholesterol < 70 mg/dL. Code(s): E78.5 - HYPERLIPIDEMIA, UNSPECIFIED (3) PSVT (paroxysmal supraventricular tachycardia) Assessment/Plan: On metoprolol. Maintain electrolytes WNL. Code(s): I47.1 - SUPRAVENTRICULAR TACHYCARDIA (4) SBO (small bowel obstruction) Assessment/Plan: Nontender abdomen. f/u with surgeon. Increase physical rehabilktation. Diet adjustment. Code(s): K56.69 - OTHER INTESTINAL OBSTRUCTION (5) Small bowel mass Code(s): K63.89 - OTHER SPECIFIED DISEASES OF INTESTINE (6) HTN (hypertension) Assessment/Plan: elevated BP. On metoprolol; can change to ER for better 24 hour coverage and compliance. On amlodipine; increased to 10 mg daily; BP is now better-controlled. Start lisinopril 2.5 mg daily. Code(s): I10 - ESSENTIAL (PRIMARY) HYPERTENSION (7) Weakness Code(s): R53.1 - WEAKNESS (8) Hypothyroid Assessment/Plan: decreased TSH; free T4 mildly elevated. Code(s): E03.9 - HYPOTHYROIDISM, UNSPECIFIED (9) Hypokalemia Assessment/Plan: Keep K+ 4-4.5 (hx PSVT); Keep Mg 2-2.3 Keep Po4 2.5-3.5. Added lisinopril for HTN, DM. Code(s): E87.6 - HYPOKALEMIA (10) Hyperglycemia Assessment/Plan: HGBA1c 7.3 Added ACEI for HTN, ?DM, Code(s): R73.9 - HYPERGLYCEMIA, UNSPECIFIED (11) Depression Assessment/Plan: Agree with addition of antidepressant (started, as per pt's daughter). Code(s): F32.9 - MAJOR DEPRESSIVE DISORDER, SINGLE EPISODE, UNSPECIFIED
--- NOTE | 2016-11-23 12:24 | PN ---
Progress Note, Physician History of Present Illness: Pt was transferred from ICU to Telemetry to medical floor Post op day 32 Pt removed NGT. Pt diet was advanced but has poor PO intake. Pt is s/p MBS, + for silent aspiration (diet was changed). Pt with cough, improved, persistent, clear sputum Pt without N, V; pt has no abdominal pain Pt w/o fever, chills. Pt w/o CP, SOB, Palp. Pt with depressed mood-better. - Current Medication List Current Medications: Active Medications Aclidinium [place] (Tudorza -) 1 puff IH BID [facility] Last Admin: 11/23/16 09:59 Dose: 1 puff Amlodipine Besylate (Norvasc -) 10 mg PO DAILY [facility] Last Admin: 11/23/16 09:55 Dose: 10 mg Guaifenesin (Robitussin Dm -) 10 ml PO Q4HWA [facility] Last Admin: 11/23/16 09:57 Dose: 10 ml IV Flush (Picc Line Flush) 8 ml IVPUSH PRN PRN PRN Reason: Protocol Dextrose/Sodium Chloride (Dextrose 5%-Normal Saline+20 Meq Kcl -) 1,000 mls @ 50 mls/hr IV ASDIR [facility] Last Admin: 11/23/16 09:47 Dose: 50 mls/hr Insulin Aspart (Novolog Vial Sliding Scale -) 1 vial SQ BIDAC [facility] PRN Reason: Protocol Last Admin: 11/23/16 06:58 Dose: Not Given Lisinopril (Prinivil) 2.5 mg PO DAILY [facility] Last Admin: 11/23/16 09:57 Dose: 2.5 mg Metoclopramide HCl (Reglan -) 10 mg PO TIDAC PRN PRN Reason: NAUSEA AND/OR VOMITING Metoprolol Tartrate (Lopressor -) 50 mg PO BID [facility] Last Admin: 11/23/16 09:55 Dose: 50 mg Mirtazapine (Remeron -) 15 mg PO HS [facility] Last Admin: 11/22/16 22:46 Dose: 15 mg Multivitamins (Thera-Plus -) 15 ml PO DAILY [facility] Last Admin: 11/23/16 09:58 Dose: 15 ml Systane Ultra Eye (Drops) 1 each OU BID [facility] Last Admin: 11/23/16 09:56 Dose: 1 each Travatan 0.004% Eye (Drops) 1 each OU HS [facility] Last Admin: 11/22/16 22:47 Dose: 1 each Nystatin (Nystatin Oral Suspension -) 500,000 units PO Q6HPO [facility] Last Admin: 11/23/16 12:17 Dose: 500,000 units Ondansetron HCl (Zofran Injection) 8 mg IVPB Q6H PRN PRN Reason: NAUSEA AND/OR VOMITING Tamsulosin HCl (Flomax -) 0.4 mg PO DAILY@0830 [facility] Last Admin: 11/23/16 08:51 Dose: 0.4 mg - Objective Vital Signs: Vital Signs Temperature 98.0 F 11/23/16 09:45 Pulse Rate 82 11/23/16 10:35 Respiratory Rate 20 11/23/16 09:49 Blood Pressure 122/65 11/23/16 09:49 O2 Sat by Pulse Oximetry (%) 95 11/23/16 10:35 Constitutional: Yes: No Distress, Calm Cardiovascular: Yes: S1, S2 Respiratory: Yes: Regular, CTA Bilaterally Gastrointestinal: Yes: Normal Bowel Sounds, Soft Edema: No Additional Findings/Remarks: Auto Self Service Station Attendant note was reviewed (including with his nurse). Labs: CBC, BMP 11/20/16 06:30 11/23/16 08:15 Problem List - Problems (1) Small bowel mass Code(s): K63.89 - OTHER SPECIFIED DISEASES OF INTESTINE (2) SBO (small bowel obstruction) Code(s): K56.69 - OTHER INTESTINAL OBSTRUCTION (3) Pneumatosis intestinalis Code(s): K63.89 - OTHER SPECIFIED DISEASES OF INTESTINE (4) CHF (congestive heart failure) Code(s): I50.9 - HEART FAILURE, UNSPECIFIED (5) CVA (cerebral infarction) Code(s): I63.9 - CEREBRAL INFARCTION, UNSPECIFIED (6) Chronic obstructive pulmonary disease Code(s): J44.9 - CHRONIC OBSTRUCTIVE PULMONARY DISEASE, UNSPECIFIED (7) Hyperlipidemia Code(s): E78.5 - HYPERLIPIDEMIA, UNSPECIFIED (8) Hypokalemia due to inadequate potassium intake Code(s): E87.6 - HYPOKALEMIA (9) Hypophosphatemia Code(s): E83.39 - OTHER DISORDERS OF PHOSPHORUS METABOLISM (10) HTN (hypertension) Code(s): I10 - ESSENTIAL (PRIMARY) HYPERTENSION (11) Hypomagnesemia Code(s): E83.42 - HYPOMAGNESEMIA (12) Bandemia Code(s): D72.825 - BANDEMIA (13) Pneumonia Code(s): J18.9 - PNEUMONIA, UNSPECIFIED ORGANISM (14) Hypoalbuminemia Code(s): E88.09 - OTH DISORDERS OF PLASMA-PROTEIN METABOLISM, NEC (15) Elevated LFTs Code(s): R79.89 - OTHER SPECIFIED ABNORMAL FINDINGS OF BLOOD CHEMISTRY (16) Urinary retention Code(s): R33.9 - RETENTION OF URINE, UNSPECIFIED (17) Abdominal aneurysm Code(s): I71.4 - ABDOMINAL AORTIC ANEURYSM, WITHOUT RUPTURE (18) Depression Code(s): F32.9 - MAJOR DEPRESSIVE DISORDER, SINGLE EPISODE, UNSPECIFIED (19) Dysphagia Code(s): R13.10 - DYSPHAGIA, UNSPECIFIED Assessment/Plan GI and surgical f/u appreciated post OP day 32. Pt with Hx/o + BCX, LLL PNA, s/p IV abtx Pt wants his to make medical decisions if he cannot; both daughters agree with pt. All family's questions were answered. Pt is hemodynamically stable. Pt had poor PO intake; pt with N and V for couple of days; NGT was reinserted again; pt removed NGT. Pt is s/p MBS, + for silent aspiration (diet was changed).. Pt tolerates PO meds Pt off TPN. Pt. is s/p left PICC Line placement; pt removed it. I encourage PO intake, OOBTC Started Remeron (dose was increased), MVI. Swallow evaluation appreciated. I spoke with pt and family about my concern related to poor PO intake, possible the need for TF vs palliative care. All questions were answered. Add nystatin swish and swallow. Psychiatry consult and f/u appreciated. To decrease IVF, encourage pt to drink more fluids. Wednesday: case was d/w pt , family ( and daughter) and service and repair supervisor (at bedside). Pt is undergoing calories count that would end Wednesday night; familly aware that below 50% intake is a low chance for meaningful recovery. AM labs. Pt ate and drank better today at breakfast. Prognosis: reserved. Case was d/w pt's nurse.
[2016-11-23] MEDS: MAGNESIUM SULF 50% (8.12 MEQ/2 ML-1 GM VIAL) IVPB ONE ×2 (14:20→15:47)
[2016-11-23] MEDS ORDERED: MAGNESIUM SULF 50% (8.12 MEQ/2 ML-1 GM VIAL) ONE (15:44)
[2016-11-23] MEDS: DEXTROSE 5%-NORMAL SALINE 1,000 ML with POTASSIUM CHLORIDE 20 MEQ IV SCH (18:19)
[2016-11-23] MEDS: MIRTAZAPINE 15 MG TABLET (FP) PO SCH (21:31)
[2016-11-23] MEDS: TRAVATAN 0.004% OU SCH (21:33)
[2016-11-23] MEDS: EYE OU SCH (21:33)
[2016-11-24] MEDS: NYSTATIN 500,000 UNITS/5 ML SUSPENSION PO SCH ×5 (00:29→23:20)
[2016-11-24] MEDS: guaiFENesin/D-METHORPHAN HB 10 ML UNIT-DOSE CUPS PO SCH ×5 (05:43→21:41)
[2016-11-24] MEDS: INSULIN SLIDING SCALE (NOVOLOG) 1 VIAL SQ SCH ×2 (06:05→17:13)
[2016-11-24] MEDS: TAMSULOSIN HCL 0.4 MG CAP.ER.24H (FP) PO SCH (08:38)
[2016-11-24] MEDS: DEXTROSE 5%-NORMAL SALINE 1,000 ML with POTASSIUM CHLORIDE 20 MEQ IV SCH ×2 (08:48→19:58)
[2016-11-24] MEDS ORDERED: MAGNESIUM OXIDE 400 MG TABLET (FP) PO ONE (10:00)
[2016-11-24] MEDS: amLODIPine BESYLATE 10 MG TABLET (FP) PO SCH (10:17)
[2016-11-24] MEDS: METOPROLOL TARTRATE 50 MG TABLET (FP) PO SCH ×2 (10:17→21:41)
[2016-11-24] MEDS: LISINOPRIL 5 MG TABLET (FP) PO SCH (10:17)
[2016-11-24] MEDS: SYSTANE ULTRA EYE DROPS OU SCH ×2 (10:19→21:50)
[2016-11-24] MEDS: ACLIDINIUM BROMIDE 400 MCG/INH AERO.POWD IH SCH ×2 (10:20→21:49)
[2016-11-24] MEDS: MULTIVITAMINS LIQUID THERAPEUTIC 118 ML BOT PO SCH (10:20)
--- NOTE | 2016-11-24 10:34 | PN ---
Progress Note, Physician History of Present Illness: Pt with cough, improved, minimum Pt without N, V; pt has no abdominal pain Pt w/o fever, chills. Pt w/o CP, SOB, Palp. Pt with depressed mood-better. - Current Medication List Current Medications: Active Medications Aclidinium [place] (Tudorza -) 1 puff IH BID [facility] Last Admin: 11/24/16 10:20 Dose: 1 puff Amlodipine Besylate (Norvasc -) 10 mg PO DAILY [facility] Last Admin: 11/24/16 10:17 Dose: 10 mg Guaifenesin (Robitussin Dm -) 10 ml PO Q4HWA [facility] Last Admin: 11/24/16 10:20 Dose: 10 ml IV Flush (Picc Line Flush) 8 ml IVPUSH PRN PRN PRN Reason: Protocol Potassium Chloride 20 meq/ (Dextrose/Sodium Chloride) 1,010 mls @ 50 mls/hr IV ASDIR [facility] Last Admin: 11/24/16 08:48 Dose: 50 mls/hr Insulin Aspart (Novolog Vial Sliding Scale -) 1 vial SQ BIDAC [facility] PRN Reason: Protocol Last Admin: 11/24/16 06:05 Dose: Not Given Lisinopril (Prinivil) 2.5 mg PO DAILY [facility] Last Admin: 11/24/16 10:17 Dose: 2.5 mg Metoclopramide HCl (Reglan -) 10 mg PO TIDAC PRN PRN Reason: NAUSEA AND/OR VOMITING Metoprolol Tartrate (Lopressor -) 50 mg PO BID [facility] Last Admin: 11/24/16 10:17 Dose: 50 mg Mirtazapine (Remeron -) 15 mg PO HS [facility] Last Admin: 11/23/16 21:31 Dose: 15 mg Multivitamins (Thera-Plus -) 15 ml PO DAILY [facility] Last Admin: 11/24/16 10:20 Dose: 15 ml Systane Ultra Eye (Drops) 1 each OU BID [facility] Last Admin: 11/24/16 10:19 Dose: 1 each Travatan 0.004% Eye (Drops) 1 each OU HS [facility] Last Admin: 11/23/16 21:33 Dose: 1 each Nystatin (Nystatin Oral Suspension -) 500,000 units PO Q6HPO [facility] Last Admin: 11/24/16 05:44 Dose: 500,000 units Ondansetron HCl (Zofran Injection) 8 mg IVPB Q6H PRN PRN Reason: NAUSEA AND/OR VOMITING Tamsulosin HCl (Flomax -) 0.4 mg PO DAILY@0830 [facility] Last Admin: 11/24/16 08:38 Dose: 0.4 mg - Objective Vital Signs: Vital Signs Temperature 98.1 F 11/24/16 06:11 Pulse Rate 57 L 11/24/16 06:11 Respiratory Rate 20 11/24/16 06:11 Blood Pressure 130/69 11/24/16 06:11 O2 Sat by Pulse Oximetry (%) 96 11/23/16 21:00 Constitutional: Yes: No Distress, Calm Cardiovascular: Yes: Regular Rate and Rhythm, S1, S2 Respiratory: Yes: Regular, CTA Bilaterally. No: Rales Gastrointestinal: Yes: Normal Bowel Sounds, Soft. No: Tenderness Edema: No Neurological: Yes: Alert, Oriented Labs: CBC, BMP 11/20/16 06:30 11/23/16 08:15 Mg noticed Problem List - Problems (1) Small bowel mass Code(s): K63.89 - OTHER SPECIFIED DISEASES OF INTESTINE (2) SBO (small bowel obstruction) Code(s): K56.69 - OTHER INTESTINAL OBSTRUCTION (3) Pneumatosis intestinalis Code(s): K63.89 - OTHER SPECIFIED DISEASES OF INTESTINE (4) CHF (congestive heart failure) Code(s): I50.9 - HEART FAILURE, UNSPECIFIED (5) CVA (cerebral infarction) Code(s): I63.9 - CEREBRAL INFARCTION, UNSPECIFIED (6) Chronic obstructive pulmonary disease Code(s): J44.9 - CHRONIC OBSTRUCTIVE PULMONARY DISEASE, UNSPECIFIED (7) Hyperlipidemia Code(s): E78.5 - HYPERLIPIDEMIA, UNSPECIFIED (8) Hypokalemia due to inadequate potassium intake Code(s): E87.6 - HYPOKALEMIA (9) Hypophosphatemia Code(s): E83.39 - OTHER DISORDERS OF PHOSPHORUS METABOLISM (10) HTN (hypertension) Code(s): I10 - ESSENTIAL (PRIMARY) HYPERTENSION (11) Hypomagnesemia Code(s): E83.42 - HYPOMAGNESEMIA (12) Bandemia Code(s): D72.825 - BANDEMIA (13) Pneumonia Code(s): J18.9 - PNEUMONIA, UNSPECIFIED ORGANISM (14) Hypoalbuminemia Code(s): E88.09 - OTH DISORDERS OF PLASMA-PROTEIN METABOLISM, NEC (15) Elevated LFTs Code(s): R79.89 - OTHER SPECIFIED ABNORMAL FINDINGS OF BLOOD CHEMISTRY (16) Urinary retention Code(s): R33.9 - RETENTION OF URINE, UNSPECIFIED (17) Abdominal aneurysm Code(s): I71.4 - ABDOMINAL AORTIC ANEURYSM, WITHOUT RUPTURE (18) Depression Code(s): F32.9 - MAJOR DEPRESSIVE DISORDER, SINGLE EPISODE, UNSPECIFIED (19) Dysphagia Code(s): R13.10 - DYSPHAGIA, UNSPECIFIED Assessment/Plan GI and surgical f/u appreciated post OP day 33 Pt was transferred from ICU to Telemetry to medical floor Post op day 33. Pt removed NGT. Pt diet was advanced but has poor PO intake. Pt is s/p MBS, + for silent aspiration (diet was changed). Pt with Hx/o + BCX, LLL PNA, s/p IV abtx Pt wants his to make medical decisions if he cannot; both daughters agree with pt. All family's questions were answered. Pt is hemodynamically stable. Pt off TPN. Pt. is s/p left PICC Line placement; pt removed it. I encourage PO intake, OOBTC Started Remeron (dose was increased), MVI. Swallow evaluation appreciated. I spoke with pt and family about my concern related to poor PO intake, possible the need for TF vs palliative care. All questions were answered. Add nystatin swish and swallow. Psychiatry consult and f/u appreciated- pt was found that does not have capacity to make decisions about his hospital course. To decrease IVF, encourage pt to drink more fluids. Wednesday: case was d/w pt , family ( and daughter) and electron beam operator (at bedside). Pt is undergoing calories count that would end Wednesday night; familly aware that below 50% intake is a low chance for meaningful recovery. I called and spoke with his about patient's condition, electron beam operator report and recommendations, including TF. All questions were answered. She states that would like to talk with Dr. Bartolo Holliday about TF placement. Replete Mg AM labs. Prognosis: reserved. Case was d/w pt's nurse. Time spent for manging pt's care: over 40 minutes.
[2016-11-24] MEDS ORDERED: MAGNESIUM SULF 50% (8.12 MEQ/2 ML-1 GM VIAL) IVPB ONE (11:00)
--- NOTE | 2016-11-24 14:01 | PN ---
Progress Note (short form) - Note Progress Note: Called to reevaluate for PEG placement as patient with poor PO intake as reflected in recent calorie count. I discussed the possibility of PEG placement with Mr. Haddad, his daughter and his who were present at bedside. I explained the reason for the PEG (bolstering his nutritional intaker ), and discussed potential risks of the procedure like but not limited to bleeding, perforation requiring surgery to repair, perotinitis secondary to prematurely dislodged tube, infection, sedation medciation effects all of which could be potentially life threatening. We discussed alternative such as radiographically placed G-Tube (however unlikely patient would cooperate with NG -Tube), surgical G-Tube (most invasive approach) and not having a G-Tube. It was explained to Mr. Haddad by myself and by his family that he is not meeting the nutritional goals he requires on his own and that the tube could eventually be removed if that changed over time. He was made aware that not meeting nutritional goals could lead to . After discussing things, he said "I am not happy with the idea of the feeding tube and would have to think about things ". I advised that he continue to discuss things with his family. Please recall if / when Mr. Haddad is amenable to PEG placement. Problem List - Problems (1) SBO (small bowel obstruction) Code(s): K56.69 - OTHER INTESTINAL OBSTRUCTION (2) Elevated LFTs Code(s): R79.89 - OTHER SPECIFIED ABNORMAL FINDINGS OF BLOOD CHEMISTRY (3) Abdominal aortic aneurysm (AAA) Code(s): I71.4 - ABDOMINAL AORTIC ANEURYSM, WITHOUT RUPTURE (4) Distended bladder Code(s): N32.89 - OTHER SPECIFIED DISORDERS OF BLADDER
[2016-11-24] MEDS ORDERED: SENNOSIDES 8.6MG TABLET (FP) PO PRN (16:49)
--- NOTE | 2016-11-24 18:38 | HOSP ---
Subjective - Review of Symptoms Subjective: Notified by RN that pt was having CP. EKG and troponins already ordered by PMD EKG reviewed no significant ST changes appreciated (very small 0.[address] elevation in V3 and V4) troponins still pending. CP resolved by my arrival spoke with cardio about results of EKG. informed RN to inform cardio for positive troponins. Physical Examination Vital Signs: Vital Signs Temperature 97.3 F L 11/24/16 17:22 Pulse Rate 69 11/24/16 17:22 Respiratory Rate 20 11/24/16 17:22 Blood Pressure 135/64 11/24/16 17:22 O2 Sat by Pulse Oximetry (%) 98 11/24/16 09:00 Labs: CBC, BMP 11/20/16 06:30 11/23/16 08:15
[2016-11-24 18:58] LABS: TROPONIN I < 0.02 ng/ml (0.00-0.05)
[2016-11-24] MEDS: DOCUSATE SODIUM 100 MG CAPSULE (FP) PO SCH (21:40)
[2016-11-24] MEDS: MIRTAZAPINE 15 MG TABLET (FP) PO SCH (21:41)
[2016-11-24] MEDS: MAGNESIUM OXIDE 400 MG TABLET (FP) PO SCH (21:41)
[2016-11-24] MEDS: TRAVATAN 0.004% OU SCH (21:50)
[2016-11-24] MEDS: EYE OU SCH (21:50)
--- NOTE | 2016-11-25 00:59 | PN ---
Progress Note, Physician Chief Complaint: Pt OOB in chair; denies ches pain. He was walking in hallway earlier. Pt's daughter is present. History of Present Illness: 81-year-old black male with no history of abdominal surgery presents to the emergency department complaining of periumbilical 6/10 sharp nonradiating intermittent discomfort with nausea no vomiting, fever, chills, chest pain, shortness of breath, flank pains, urinary symptoms. There are no alleviating or exacerbating factors. Last bowel movement 4 days ago. - Current Medication List Current Medications: Active Medications Aclidinium [place] (Tudorza -) 1 puff IH BID [facility] Last Admin: 11/24/16 21:49 Dose: 1 puff Amlodipine Besylate (Norvasc -) 10 mg PO DAILY [facility] Last Admin: 11/24/16 10:17 Dose: 10 mg Docusate Sodium (Colace -) 100 mg PO BID [facility] Last Admin: 11/24/16 21:40 Dose: 100 mg Guaifenesin (Robitussin Dm -) 10 ml PO Q4HWA [facility] Last Admin: 11/24/16 21:41 Dose: Not Given Potassium Chloride 20 meq/ (Dextrose/Sodium Chloride) 1,010 mls @ 50 mls/hr IV ASDIR [facility] Last Admin: 11/24/16 19:58 Dose: Not Given Insulin Aspart (Novolog Vial Sliding Scale -) 1 vial SQ BIDAC [facility] PRN Reason: Protocol Last Admin: 11/24/16 17:13 Dose: Not Given Lisinopril (Prinivil) 2.5 mg PO DAILY [facility] Last Admin: 11/24/16 10:17 Dose: 2.5 mg Magnesium Oxide (Mag-Ox -) 400 mg PO BID [facility] Last Admin: 11/24/16 21:41 Dose: 400 mg Metoclopramide HCl (Reglan -) 10 mg PO TIDAC PRN PRN Reason: NAUSEA AND/OR VOMITING Metoprolol Tartrate (Lopressor -) 50 mg PO BID [facility] Last Admin: 11/24/16 21:41 Dose: 50 mg Mirtazapine (Remeron -) 15 mg PO HS [facility] Last Admin: 11/24/16 21:41 Dose: 15 mg Multivitamins (Thera-Plus -) 15 ml PO DAILY [facility] Last Admin: 11/24/16 10:20 Dose: 15 ml Systane Ultra Eye (Drops) 1 each OU BID [facility] Last Admin: 11/24/16 21:50 Dose: 1 each Travatan 0.004% Eye (Drops) 1 each OU HS [facility] Last Admin: 11/24/16 21:50 Dose: 1 each Nystatin (Nystatin Oral Suspension -) 500,000 units PO Q6HPO [facility] Last Admin: 11/24/16 23:20 Dose: 500,000 units Ondansetron HCl (Zofran Injection) 8 mg IVPB Q6H PRN PRN Reason: NAUSEA AND/OR VOMITING Senna (Senna -) 2 tab PO HS PRN PRN Reason: CONSTIPATION Tamsulosin HCl (Flomax -) 0.4 mg PO DAILY@0830 [facility] Last Admin: 11/24/16 08:38 Dose: 0.4 mg - Objective Vital Signs: Vital Signs Temperature 97.8 F 11/24/16 22:00 Pulse Rate 69 11/24/16 22:00 Respiratory Rate 20 11/24/16 22:00 Blood Pressure 131/65 11/24/16 22:00 O2 Sat by Pulse Oximetry (%) 98 11/24/16 21:00 Constitutional: Yes: Calm Eyes: Yes: WNL HENT: Yes: WNL Neck: Yes: WNL Cardiovascular: Yes: Regular Rate and Rhythm Respiratory: Yes: Regular Gastrointestinal: Yes: Soft ...Rectal Exam: Yes: Deferred Genitourinary: No: Anuria Musculoskeletal: Yes: Muscle Weakness Extremities: Yes: Cool Edema: No Peripheral Pulses WNL: No Peripheral Pulses: Left Doralis Pedis: 1+, Right Dorsalis Pedis: 1+ Integumentary: Yes: WNL Wound/Incision: Yes: Open to air Neurological: Yes: Alert, Weakness Psychiatric: Yes: Other (dementia) Labs: CBC, BMP 11/20/16 06:30 11/23/16 08:15 Abnormal Lab Results 11/24/16 17:15 Creatine Kinase 21 L Problem List - Problems (1) Diastolic CHF Assessment/Plan: Continue present medications (amlodipine; lisinopril;metoprolol). Continue physical rehabilitation. Code(s): I50.30 - UNSPECIFIED DIASTOLIC (CONGESTIVE) HEART FAILURE (2) Hyperlipidemia Assessment/Plan: On atorvastatin; keep LDL cholesterol < 70 mg/dL. Code(s): E78.5 - HYPERLIPIDEMIA, UNSPECIFIED (3) PSVT (paroxysmal supraventricular tachycardia) Assessment/Plan: On metoprolol. Maintain electrolytes WNL. Code(s): I47.1 - SUPRAVENTRICULAR TACHYCARDIA (4) SBO (small bowel obstruction) Assessment/Plan: Nontender abdomen. f/u with surgeon. Increase physical rehabilitation. Diet adjustment (pt says he dreams of eating eggs, rivero, and toast). Code(s): K56.69 - OTHER INTESTINAL OBSTRUCTION (5) Small bowel mass Code(s): K63.89 - OTHER SPECIFIED DISEASES OF INTESTINE (6) HTN (hypertension) Code(s): I10 - ESSENTIAL (PRIMARY) HYPERTENSION (7) Weakness Code(s): R53.1 - WEAKNESS (8) Hypothyroid Code(s): E03.9 - HYPOTHYROIDISM, UNSPECIFIED (9) Hypokalemia Code(s): E87.6 - HYPOKALEMIA (10) Hyperglycemia Code(s): R73.9 - HYPERGLYCEMIA, UNSPECIFIED (11) Depression Code(s): F32.9 - MAJOR DEPRESSIVE DISORDER, SINGLE EPISODE, UNSPECIFIED
[2016-11-25] MEDS: NYSTATIN 500,000 UNITS/5 ML SUSPENSION PO SCH ×3 (05:36→17:36)
[2016-11-25] MEDS: guaiFENesin/D-METHORPHAN HB 10 ML UNIT-DOSE CUPS PO SCH ×5 (05:36→22:24)
[2016-11-25] MEDS: INSULIN SLIDING SCALE (NOVOLOG) 1 VIAL SQ SCH ×2 (06:00→16:40)
[2016-11-25 08:23] LABS: ANION GAP 5 (8-16); CALCIUM 8.9 mg/dL (8.5-10.1); CO2 31 mmol/L (21-32); GLUCOSE,RANDOM 117 mg/dL (74-106); MAGNESIUM 2.1 mg/dL (1.8-2.4)
[2016-11-25 08:25] LABS: CREATININE 0.5 mg/dL (0.7-1.3)
[2016-11-25] MEDS: TAMSULOSIN HCL 0.4 MG CAP.ER.24H (FP) PO SCH (08:30)
[2016-11-25] MEDS ORDERED: PT OWN MED DRAWER 7, Y5N ONE ×2 (10:05→13:36)
[2016-11-25] MEDS: MAGNESIUM OXIDE 400 MG TABLET (FP) PO SCH ×2 (10:09→22:20)
[2016-11-25] MEDS: METOPROLOL TARTRATE 50 MG TABLET (FP) PO SCH ×2 (10:09→22:20)
[2016-11-25] MEDS: amLODIPine BESYLATE 10 MG TABLET (FP) PO SCH (10:09)
[2016-11-25] MEDS: LISINOPRIL 5 MG TABLET (FP) PO SCH (10:09)
[2016-11-25] MEDS: DOCUSATE SODIUM 100 MG CAPSULE (FP) PO SCH ×2 (10:09→22:20)
[2016-11-25] MEDS: MULTIVITAMINS LIQUID THERAPEUTIC 118 ML BOT PO SCH (10:12)
[2016-11-25] MEDS: SYSTANE ULTRA EYE DROPS OU SCH ×2 (10:13→22:23)
[2016-11-25] MEDS: ACLIDINIUM BROMIDE 400 MCG/INH AERO.POWD IH SCH ×2 (10:13→22:25)
[2016-11-25] MEDS ORDERED: POLYETHYLENE GLYCOL 3350 119 GM BTL PO ONE (10:50)
--- NOTE | 2016-11-25 10:54 | PN ---
Progress Note, Physician History of Present Illness: Pt with cough, improved, minimum white sputum Pt without N, V; pt has no abdominal pain Pt w/o fever, chills. Pt w/o CP, SOB, Palp. Pt with depressed mood-better. Pt with constipation, no BM for few days - Current Medication List Current Medications: Active Medications Aclidinium [place] (Tudorza -) 1 puff IH BID [facility] Last Admin: 11/25/16 10:13 Dose: 1 puff Amlodipine Besylate (Norvasc -) 10 mg PO DAILY [facility] Last Admin: 11/25/16 10:09 Dose: 10 mg Docusate Sodium (Colace -) 100 mg PO BID [facility] Last Admin: 11/25/16 10:09 Dose: 100 mg Guaifenesin (Robitussin Dm -) 10 ml PO Q4HWA [facility] Last Admin: 11/25/16 10:12 Dose: 10 ml Potassium Chloride 20 meq/ (Dextrose/Sodium Chloride) 1,010 mls @ 50 mls/hr IV ASDIR [facility] Last Admin: 11/24/16 19:58 Dose: Not Given Insulin Aspart (Novolog Vial Sliding Scale -) 1 vial SQ BIDAC [facility] PRN Reason: Protocol Last Admin: 11/25/16 06:00 Dose: Not Given Lisinopril (Prinivil) 2.5 mg PO DAILY [facility] Last Admin: 11/25/16 10:09 Dose: 2.5 mg Magnesium Oxide (Mag-Ox -) 400 mg PO BID [facility] Last Admin: 11/25/16 10:09 Dose: 400 mg Metoclopramide HCl (Reglan -) 10 mg PO TIDAC PRN PRN Reason: NAUSEA AND/OR VOMITING Metoprolol Tartrate (Lopressor -) 50 mg PO BID [facility] Last Admin: 11/25/16 10:09 Dose: 50 mg Mirtazapine (Remeron -) 15 mg PO HS [facility] Last Admin: 11/24/16 21:41 Dose: 15 mg Multivitamins (Thera-Plus -) 15 ml PO DAILY [facility] Last Admin: 11/25/16 10:12 Dose: 15 ml Systane Ultra Eye (Drops) 1 each OU BID [facility] Last Admin: 11/25/16 10:13 Dose: 1 each Travatan 0.004% Eye (Drops) 1 each OU HS [facility] Last Admin: 11/24/16 21:50 Dose: 1 each Nystatin (Nystatin Oral Suspension -) 500,000 units PO Q6HPO [facility] Last Admin: 11/25/16 05:36 Dose: 500,000 units Ondansetron HCl (Zofran Injection) 8 mg IVPB Q6H PRN PRN Reason: NAUSEA AND/OR VOMITING Polyethylene Glycol (Miralax (For Daily Use) -) 17 gm PO ONCE ONE Stop: 11/25/16 10:51 Senna (Senna -) 2 tab PO HS PRN PRN Reason: CONSTIPATION Tamsulosin HCl (Flomax -) 0.4 mg PO DAILY@0830 [facility] Last Admin: 11/25/16 08:30 Dose: 0.4 mg - Objective Vital Signs: Vital Signs Temperature 98 F 11/25/16 06:46 Pulse Rate 88 11/25/16 09:25 Respiratory Rate 20 11/25/16 06:46 Blood Pressure 134/66 11/25/16 06:46 O2 Sat by Pulse Oximetry (%) 97 11/25/16 09:25 Constitutional: Yes: No Distress, Calm Cardiovascular: Yes: Regular Rate and Rhythm, S1, S2 Respiratory: Yes: Regular, CTA Bilaterally. No: Rales Gastrointestinal: Yes: Normal Bowel Sounds, Soft. No: Tenderness Edema: No Neurological: Yes: Alert, Oriented Labs: CBC, BMP 11/20/16 06:30 11/25/16 06:30 Problem List - Problems (1) Small bowel mass Code(s): K63.89 - OTHER SPECIFIED DISEASES OF INTESTINE (2) SBO (small bowel obstruction) Code(s): K56.69 - OTHER INTESTINAL OBSTRUCTION (3) Pneumatosis intestinalis Code(s): K63.89 - OTHER SPECIFIED DISEASES OF INTESTINE (4) CHF (congestive heart failure) Code(s): I50.9 - HEART FAILURE, UNSPECIFIED (5) CVA (cerebral infarction) Code(s): I63.9 - CEREBRAL INFARCTION, UNSPECIFIED (6) Chronic obstructive pulmonary disease Code(s): J44.9 - CHRONIC OBSTRUCTIVE PULMONARY DISEASE, UNSPECIFIED (7) Hyperlipidemia Code(s): E78.5 - HYPERLIPIDEMIA, UNSPECIFIED (8) Hypokalemia due to inadequate potassium intake Code(s): E87.6 - HYPOKALEMIA (9) Hypophosphatemia Code(s): E83.39 - OTHER DISORDERS OF PHOSPHORUS METABOLISM (10) HTN (hypertension) Code(s): I10 - ESSENTIAL (PRIMARY) HYPERTENSION (11) Hypomagnesemia Code(s): E83.42 - HYPOMAGNESEMIA (12) Bandemia Code(s): D72.825 - BANDEMIA (13) Pneumonia Code(s): J18.9 - PNEUMONIA, UNSPECIFIED ORGANISM (14) Hypoalbuminemia Code(s): E88.09 - OTH DISORDERS OF PLASMA-PROTEIN METABOLISM, NEC (15) Elevated LFTs Code(s): R79.89 - OTHER SPECIFIED ABNORMAL FINDINGS OF BLOOD CHEMISTRY (16) Urinary retention Code(s): R33.9 - RETENTION OF URINE, UNSPECIFIED (17) Abdominal aneurysm Code(s): I71.4 - ABDOMINAL AORTIC ANEURYSM, WITHOUT RUPTURE (18) Depression Code(s): F32.9 - MAJOR DEPRESSIVE DISORDER, SINGLE EPISODE, UNSPECIFIED (19) Dysphagia Code(s): R13.10 - DYSPHAGIA, UNSPECIFIED Assessment/Plan GI and surgical f/u appreciated post OP day 33 Pt was transferred from ICU to Telemetry to medical floor Post op day 33. Pt removed NGT. Pt diet was advanced but has poor PO intake. Pt is s/p MBS, + for silent aspiration (diet was changed). Pt with Hx/o + BCX, LLL PNA, s/p IV abtx Pt wants his to make medical decisions if he cannot; both daughters agree with pt. All family's questions were answered. Pt is hemodynamically stable. Pt off TPN. Pt. is s/p left PICC Line placement; pt removed it. I encourage PO intake, OOBTC Started Remeron (dose was increased), MVI. Swallow evaluation appreciated. I spoke with pt and family about my concern related to poor PO intake, possible the need for TF vs palliative care. All questions were answered. Add nystatin swish and swallow. Psychiatry consult and f/u appreciated- pt was found that does not have capacity to make decisions about his hospital course. To decrease IVF, encourage pt to drink more fluids. Wednesday: case was d/w pt , family ( and daughter) and apparel manufacture instructor (at bedside). Pt is undergoing calories count that would end Wednesday night; familly aware that below 50% intake is a low chance for meaningful recovery. Yesterday I called and spoke with his about patient's condition, apparel manufacture instructor report and recommendations, including TF. All questions were answered. She states that would like to talk with Dr. Bartolo Holliday about TF placement. Case was d/w Dr. Bartolo Holliday. Pending pt and decision. To recall palliative care. Miralax one time AM labs. Prognosis: reserved. Case was d/w pt's nurse. .
[2016-11-25] MEDS: DEXTROSE 5%-NORMAL SALINE 1,000 ML with POTASSIUM CHLORIDE 20 MEQ IV SCH ×2 (12:13→18:44)
--- NOTE | 2016-11-25 12:17 | PN ---
Progress Note, Physician History of Present Illness: 81 year old man with a history of HTN, HLD, COPD, CVA, AAA admitted with abdominal discomfort and constipation concerning for SBO. Pt seen and examined today in nad. He states that he had multiple small BM's yesterday and overnight. denies any current abd pain. denies chest pain, sob, palpitations. no pnd, orthopnea, or LE edema. NG tube in place. PMH LE angio 02/21/2015 Dr. Alcazar Left EIA/FRICTION [employer] DCB 08/10/2014 Dr Alcazar PCI LCx 09/20/2014 Dr Alcazar Medical History Reviewed Condition Date Treating Physician Comments Claudication, intermittent HTN Hyperlipidemia TIA/CVA - Current Medication List Current Medications: Active Medications Aclidinium [place] (Tudorza -) 1 puff IH BID [facility] Last Admin: 11/25/16 10:13 Dose: 1 puff Amlodipine Besylate (Norvasc -) 10 mg PO DAILY [facility] Last Admin: 11/25/16 10:09 Dose: 10 mg Docusate Sodium (Colace -) 100 mg PO BID [facility] Last Admin: 11/25/16 10:09 Dose: 100 mg Guaifenesin (Robitussin Dm -) 10 ml PO Q4HWA [facility] Last Admin: 11/25/16 10:12 Dose: 10 ml Potassium Chloride 20 meq/ (Dextrose/Sodium Chloride) 1,010 mls @ 50 mls/hr IV ASDIR [facility] Last Admin: 11/24/16 19:58 Dose: Not Given Insulin Aspart (Novolog Vial Sliding Scale -) 1 vial SQ BIDAC [facility] PRN Reason: Protocol Last Admin: 11/25/16 06:00 Dose: Not Given Lisinopril (Prinivil) 2.5 mg PO DAILY [facility] Last Admin: 11/25/16 10:09 Dose: 2.5 mg Magnesium Oxide (Mag-Ox -) 400 mg PO BID [facility] Last Admin: 11/25/16 10:09 Dose: 400 mg Metoclopramide HCl (Reglan -) 10 mg PO TIDAC PRN PRN Reason: NAUSEA AND/OR VOMITING Metoprolol Tartrate (Lopressor -) 50 mg PO BID [facility] Last Admin: 11/25/16 10:09 Dose: 50 mg Mirtazapine (Remeron -) 15 mg PO HS [facility] Last Admin: 11/24/16 21:41 Dose: 15 mg Multivitamins (Thera-Plus -) 15 ml PO DAILY [facility] Last Admin: 11/25/16 10:12 Dose: 15 ml Systane Ultra Eye (Drops) 1 each OU BID [facility] Last Admin: 11/25/16 10:13 Dose: 1 each Travatan 0.004% Eye (Drops) 1 each OU HS [facility] Last Admin: 11/24/16 21:50 Dose: 1 each Nystatin (Nystatin Oral Suspension -) 500,000 units PO Q6HPO [facility] Last Admin: 11/25/16 05:36 Dose: 500,000 units Ondansetron HCl (Zofran Injection) 8 mg IVPB Q6H PRN PRN Reason: NAUSEA AND/OR VOMITING Senna (Senna -) 2 tab PO HS PRN PRN Reason: CONSTIPATION Tamsulosin HCl (Flomax -) 0.4 mg PO DAILY@0830 [facility] Last Admin: 11/25/16 08:30 Dose: 0.4 mg - Objective Vital Signs: Vital Signs Temperature 98 F 11/25/16 06:46 Pulse Rate 88 11/25/16 09:25 Respiratory Rate 20 11/25/16 06:46 Blood Pressure 134/66 11/25/16 06:46 O2 Sat by Pulse Oximetry (%) 97 11/25/16 09:25 Eyes: Yes: WNL, Conjunctiva Clear, EOM Intact HENT: Yes: WNL, Atraumatic, Normocephalic Neck: Yes: WNL, Supple, Trachea Midline Cardiovascular: Yes: WNL, Regular Rate and Rhythm Respiratory: Yes: WNL, Regular, CTA Bilaterally Gastrointestinal: Yes: WNL, Normal Bowel Sounds Genitourinary: Yes: WNL Musculoskeletal: Yes: WNL Extremities: Yes: WNL Edema: No Integumentary: Yes: WNL Neurological: Yes: WNL, Alert, Oriented ...Motor Strength: WNL Psychiatric: Yes: WNL Labs: CBC, BMP 11/20/16 06:30 11/25/16 06:30 Assessment/Plan Problem List - Problems (1) Diastolic CHF Assessment/Plan: Continue present medications (amlodipine; lisinopril;metoprolol). Continue physical rehabilitation. Code(s): I50.30 - UNSPECIFIED DIASTOLIC (CONGESTIVE) HEART FAILURE (2) Hyperlipidemia Assessment/Plan: On atorvastatin; keep LDL cholesterol < 70 mg/dL. Code(s): E78.5 - HYPERLIPIDEMIA, UNSPECIFIED (3) PSVT (paroxysmal supraventricular tachycardia) Assessment/Plan: On metoprolol. Maintain electrolytes WNL. Code(s): I47.1 - SUPRAVENTRICULAR TACHYCARDIA (4) SBO (small bowel obstruction) Assessment/Plan: Nontender abdomen. f/u with surgeon. Increase physical rehabilitation. Diet adjustment (pt says he dreams of eating eggs, rivero, and toast). Code(s): K56.69 - OTHER INTESTINAL OBSTRUCTION (5) Small bowel mass Code(s): K63.89 - OTHER SPECIFIED DISEASES OF INTESTINE (6) HTN (hypertension) Assessment/Plan: elevated BP. On metoprolol; can change to ER for better 24 hour coverage and compliance. On amlodipine; increased to 10 mg daily; BP is now better-controlled. Started lisinopril 2.5 mg daily; may increase as required for HTN, CHF. Code(s): I10 - ESSENTIAL (PRIMARY) HYPERTENSION (7) Weakness Code(s): R53.1 - WEAKNESS (8) Hypothyroid Assessment/Plan: decreased TSH; free T4 mildly elevated. Code(s): E03.9 - HYPOTHYROIDISM, UNSPECIFIED (9) Hypokalemia Assessment/Plan: Keep K+ 4-4.5 (hx PSVT); Keep Mg 2-2.3 Keep Po4 2.5-3.5. Added lisinopril for HTN, DM. Code(s): E87.6 - HYPOKALEMIA (10) Hyperglycemia Assessment/Plan: HGBA1c 7.3 Added ACEI for HTN, ?DM, Code(s): R73.9 - HYPERGLYCEMIA, UNSPECIFIED (11) Depression Assessment/Plan: Agree with addition of antidepressant (started, as per pt's daughter). Code(s): F32.9 - MAJOR DEPRESSIVE DISORDER, SINGLE EPISODE, UNSPECIFIED
--- NOTE | 2016-11-25 14:49 | EKG ---
Test Reason : Blood Pressure : / mmHG Vent. Rate : 069 BPM Atrial Rate : 069 BPM P-R Int : 194 ms QRS Dur : 084 ms QT Int : 410 ms P-R-T Axes : 072 038 062 degrees QTc Int : 439 ms SINUS RHYTHM WITH OCCASIONAL PREMATURE VENTRICULAR COMPLEXES SEPTAL INFARCT , AGE UNDETERMINED POSSIBLE INFERIOR INFARCT (CITED ON OR BEFORE 24-OCT-2016) ABNORMAL ECG WHEN COMPARED WITH ECG OF 02-NOV-2016 15:11, PREMATURE VENTRICULAR COMPLEXES ARE NOW PRESENT PREMATURE ATRIAL COMPLEXES ARE NO LONGER PRESENT VENT. RATE HAS DECREASED BY 49 BPM SEPTAL INFARCT IS NOW PRESENT Confirmed by ANNY MARRERO, DIEGO ([id number]) on 11/25/2016 2:49:28 PM Referred By: Confirmed By:DIEGO MCCORMICK MD
--- NOTE | 2016-11-25 16:09 | PN ---
Progress Note (short form) - Note Progress Note: per nurse patient agreeing to peg.peg has been discussed in detail with family. they will need to sign for consent. also, dnr status will need to be clarified prior to procedure (ie. upheld or suspended during procedure). plan potentially for this monday 11/27. Problem List - Problems (1) SBO (small bowel obstruction) Code(s): K56.69 - OTHER INTESTINAL OBSTRUCTION (2) Elevated LFTs Code(s): R79.89 - OTHER SPECIFIED ABNORMAL FINDINGS OF BLOOD CHEMISTRY (3) Abdominal aortic aneurysm (AAA) Code(s): I71.4 - ABDOMINAL AORTIC ANEURYSM, WITHOUT RUPTURE (4) Distended bladder Code(s): N32.89 - OTHER SPECIFIED DISORDERS OF BLADDER
[2016-11-25] MEDS: MIRTAZAPINE 15 MG TABLET (FP) PO SCH (22:24)
[2016-11-25] MEDS: EYE OU SCH (22:24)
[2016-11-25] MEDS: TRAVATAN 0.004% OU SCH (22:24)
[2016-11-26] MEDS: INSULIN SLIDING SCALE (NOVOLOG) 1 VIAL SQ SCH ×2 (06:27→16:45)
[2016-11-26] MEDS: guaiFENesin/D-METHORPHAN HB 10 ML UNIT-DOSE CUPS PO SCH ×5 (06:27→22:02)
[2016-11-26] MEDS: NYSTATIN 500,000 UNITS/5 ML SUSPENSION PO SCH ×4 (06:27→17:49)
[2016-11-26 08:21] LABS: ANION GAP 6 (8-16); CALCIUM 8.7 mg/dL (8.5-10.1); CO2 29 mmol/L (21-32); CREATININE 0.5 mg/dL (0.7-1.3); GLUCOSE,RANDOM 117 mg/dL (74-106); MAGNESIUM 1.9 mg/dL (1.8-2.4)
[2016-11-26] MEDS: TAMSULOSIN HCL 0.4 MG CAP.ER.24H (FP) PO SCH (08:24)
[2016-11-26 08:36] LABS: TROPONIN I < 0.02 ng/ml (0.00-0.05)
[2016-11-26] MEDS ORDERED: PT OWN MED DRAWER 7, Y5N ONE ×2 (10:14→21:59)
[2016-11-26] MEDS: DOCUSATE SODIUM 100 MG CAPSULE (FP) PO SCH ×2 (10:20→22:02)
[2016-11-26] MEDS: METOPROLOL TARTRATE 50 MG TABLET (FP) PO SCH ×2 (10:20→22:02)
[2016-11-26] MEDS: MAGNESIUM OXIDE 400 MG TABLET (FP) PO SCH ×2 (10:21→22:02)
[2016-11-26] MEDS: amLODIPine BESYLATE 10 MG TABLET (FP) PO SCH (10:21)
[2016-11-26] MEDS: ACLIDINIUM BROMIDE 400 MCG/INH AERO.POWD IH SCH ×2 (10:22→22:03)
[2016-11-26] MEDS: MULTIVITAMINS LIQUID THERAPEUTIC 118 ML BOT PO SCH (10:22)
[2016-11-26] MEDS: LISINOPRIL 5 MG TABLET (FP) PO SCH (10:22)
[2016-11-26] MEDS: SYSTANE ULTRA EYE DROPS OU SCH ×2 (10:23→22:03)
--- NOTE | 2016-11-26 12:21 | PN ---
Progress Note, [employer] - Note Progress Note: Selected Entries 11/25/16 11/25/16 11/25/16 11:39 15:46 18:00 Breakfast 50% Lunch 50% Supper 50% 11/26/16 11:26 Breakfast 50% Lunch Supper Only accepting cream of rice and OJ. Family has consented to PEG insertion, pending tomorrow. Suggest continuing PO intake,as desired and accepted, with PEG as supplements, as tolerated..
[2016-11-26] MEDS: DEXTROSE 5%-NORMAL SALINE 1,000 ML with POTASSIUM CHLORIDE 20 MEQ IV SCH (12:48)
--- NOTE | 2016-11-26 18:36 | PN ---
Progress Note, Physician History of Present Illness: Pt with cough, improved, minimum white sputum Pt without N, V; pt has no abdominal pain Pt w/o fever, chills. Pt w/o CP, SOB, Palp. Pt with depressed mood-better. Pt with constipation, no BM for few days - Current Medication List Current Medications: Active Medications Aclidinium [place] (Tudorza -) 1 puff IH BID [facility] Last Admin: 11/26/16 10:22 Dose: 1 puff Amlodipine Besylate (Norvasc -) 10 mg PO DAILY [facility] Last Admin: 11/26/16 10:21 Dose: 10 mg Docusate Sodium (Colace -) 100 mg PO BID [facility] Last Admin: 11/26/16 10:20 Dose: 100 mg Guaifenesin (Robitussin Dm -) 10 ml PO Q4HWA [facility] Last Admin: 11/26/16 17:49 Dose: 10 ml Potassium Chloride 20 meq/ (Dextrose/Sodium Chloride) 1,010 mls @ 50 mls/hr IV ASDIR [facility] Last Admin: 11/26/16 12:48 Dose: 50 mls/hr Insulin Aspart (Novolog Vial Sliding Scale -) 1 vial SQ BIDAC [facility] PRN Reason: Protocol Last Admin: 11/26/16 16:45 Dose: Not Given Lisinopril (Prinivil) 2.5 mg PO DAILY [facility] Last Admin: 11/26/16 10:22 Dose: 2.5 mg Magnesium Oxide (Mag-Ox -) 400 mg PO BID [facility] Last Admin: 11/26/16 10:21 Dose: 400 mg Metoclopramide HCl (Reglan -) 10 mg PO TIDAC PRN PRN Reason: NAUSEA AND/OR VOMITING Metoprolol Tartrate (Lopressor -) 50 mg PO BID [facility] Last Admin: 11/26/16 10:20 Dose: 50 mg Mirtazapine (Remeron -) 15 mg PO HS [facility] Last Admin: 11/25/16 22:24 Dose: 15 mg Multivitamins (Thera-Plus -) 15 ml PO DAILY [facility] Last Admin: 11/26/16 10:22 Dose: 15 ml Systane Ultra Eye (Drops) 1 each OU BID [facility] Last Admin: 11/26/16 10:23 Dose: 1 each Travatan 0.004% Eye (Drops) 1 each OU HS [facility] Last Admin: 11/25/16 22:24 Dose: 1 each Nystatin (Nystatin Oral Suspension -) 500,000 units PO Q6HPO [facility] Last Admin: 11/26/16 17:49 Dose: 500,000 units Ondansetron HCl (Zofran Injection) 8 mg IVPB Q6H PRN PRN Reason: NAUSEA AND/OR VOMITING Senna (Senna -) 2 tab PO HS PRN PRN Reason: CONSTIPATION Tamsulosin HCl (Flomax -) 0.4 mg PO DAILY@0830 [facility] Last Admin: 11/26/16 08:24 Dose: 0.4 mg - Objective Vital Signs: Vital Signs Temperature 97.7 F 11/26/16 15:09 Pulse Rate 62 11/26/16 15:09 Respiratory Rate 18 11/26/16 15:09 Blood Pressure 131/69 11/26/16 09:05 O2 Sat by Pulse Oximetry (%) 97 11/26/16 10:00 Constitutional: Yes: No Distress, Calm Cardiovascular: Yes: Regular Rate and Rhythm, S1, S2 Respiratory: Yes: Regular, CTA Bilaterally. No: Rales Gastrointestinal: Yes: Normal Bowel Sounds, Soft. No: Tenderness Edema: No Neurological: Yes: Alert, Oriented Labs: CBC, BMP 11/20/16 06:30 11/26/16 06:30 Problem List - Problems (1) Small bowel mass Code(s): K63.89 - OTHER SPECIFIED DISEASES OF INTESTINE (2) SBO (small bowel obstruction) Code(s): K56.69 - OTHER INTESTINAL OBSTRUCTION (3) Pneumatosis intestinalis Code(s): K63.89 - OTHER SPECIFIED DISEASES OF INTESTINE (4) CHF (congestive heart failure) Code(s): I50.9 - HEART FAILURE, UNSPECIFIED (5) CVA (cerebral infarction) Code(s): I63.9 - CEREBRAL INFARCTION, UNSPECIFIED (6) Chronic obstructive pulmonary disease Code(s): J44.9 - CHRONIC OBSTRUCTIVE PULMONARY DISEASE, UNSPECIFIED (7) Hyperlipidemia Code(s): E78.5 - HYPERLIPIDEMIA, UNSPECIFIED (8) Hypokalemia due to inadequate potassium intake Code(s): E87.6 - HYPOKALEMIA (9) Hypophosphatemia Code(s): E83.39 - OTHER DISORDERS OF PHOSPHORUS METABOLISM (10) HTN (hypertension) Code(s): I10 - ESSENTIAL (PRIMARY) HYPERTENSION (11) Hypomagnesemia Code(s): E83.42 - HYPOMAGNESEMIA (12) Bandemia Code(s): D72.825 - BANDEMIA (13) Pneumonia Code(s): J18.9 - PNEUMONIA, UNSPECIFIED ORGANISM (14) Hypoalbuminemia Code(s): E88.09 - OTH DISORDERS OF PLASMA-PROTEIN METABOLISM, NEC (15) Elevated LFTs Code(s): R79.89 - OTHER SPECIFIED ABNORMAL FINDINGS OF BLOOD CHEMISTRY (16) Urinary retention Code(s): R33.9 - RETENTION OF URINE, UNSPECIFIED (17) Abdominal aneurysm Code(s): I71.4 - ABDOMINAL AORTIC ANEURYSM, WITHOUT RUPTURE (18) Depression Code(s): F32.9 - MAJOR DEPRESSIVE DISORDER, SINGLE EPISODE, UNSPECIFIED (19) Dysphagia Code(s): R13.10 - DYSPHAGIA, UNSPECIFIED Assessment/Plan GI and surgical f/u appreciated Pt was transferred from ICU to Telemetry to medical floor Post op day 34. Pt removed NGT. Pt diet was advanced but has poor PO intake. Pt is s/p MBS, + for silent aspiration (diet was changed). Pt with Hx/o + BCX, LLL PNA, s/p IV abtx Pt wants his to make medical decisions if he cannot; both daughters agree with pt. All family's questions were answered. Pt is hemodynamically stable. Pt off TPN. Pt. is s/p left PICC Line placement; pt removed it. I encourage PO intake, OOBTC Started Remeron (dose was increased), MVI. Swallow evaluation appreciated. I spoke with pt and family about my concern related to poor PO intake, possible the need for TF vs palliative care. All questions were answered. Add nystatin swish and swallow. Psychiatry consult and f/u appreciated- pt was found that does not have capacity to make decisions about his hospital course. To decrease IVF, encourage pt to drink more fluids. Pt and agreed with TF, scheduled for tomorrow. Miralax today. AM labs. Prognosis: reserved. Case was d/w pt's nurse. .
[2016-11-26] MEDS ORDERED: POLYETHYLENE GLYCOL 3350 119 GM BTL PO ONE (18:52)
[2016-11-26] MEDS: MIRTAZAPINE 15 MG TABLET (FP) PO SCH (22:02)
[2016-11-26] MEDS: TRAVATAN 0.004% OU SCH (22:05)
[2016-11-26] MEDS: EYE OU SCH (22:05)
[2016-11-27] MEDS: NYSTATIN 500,000 UNITS/5 ML SUSPENSION PO SCH ×4 (00:04→18:24)
[2016-11-27] MEDS: guaiFENesin/D-METHORPHAN HB 10 ML UNIT-DOSE CUPS PO SCH ×5 (06:20→22:31)
[2016-11-27] MEDS: INSULIN SLIDING SCALE (NOVOLOG) 1 VIAL SQ SCH ×2 (06:20→18:30)
[2016-11-27 07:58] LABS: INR 1.17 (0.82-1.09); PROTHROMBIN TIME (PATIENT) 12.9 SEC (9.98-11.88)
[2016-11-27 08:23] LABS: MCH 27.5 pg (25.7-33.7); MCHC 33.2 g/dl (32.0-35.9); MEAN CELL VOLUME 82.8 fl (80-96); MEAN PLT VOLUME 7.2 fl (7.5-11.1); PLATELET COUNT 231 K/MM3 (134-434); RDW 14.6 % (11.9-15.9); WHITE BLOOD COUNT 7.3 K/mm3 (4.0-10.0)
--- NOTE | 2016-11-27 08:26 | PN ---
Progress Note, Physician Chief Complaint: Pt in bed; no chest pain , abdominal pain, or dyspnea. Pt's daughter and granddaughter are at bedside. History of Present Illness: 81-year-old black male with no history of abdominal surgery presents to the emergency department complaining of periumbilical 6/10 sharp nonradiating intermittent discomfort with nausea no vomiting, fever, chills, chest pain, shortness of breath, flank pains, urinary symptoms. There are no alleviating or exacerbating factors. Last bowel movement 4 days ago. - Current Medication List Current Medications: Active Medications Aclidinium [place] (Tudorza -) 1 puff IH BID [facility] Last Admin: 11/26/16 22:03 Dose: 1 puff Amlodipine Besylate (Norvasc -) 10 mg PO DAILY [facility] Last Admin: 11/26/16 10:21 Dose: 10 mg Docusate Sodium (Colace -) 100 mg PO BID [facility] Last Admin: 11/26/16 22:02 Dose: 100 mg Guaifenesin (Robitussin Dm -) 10 ml PO Q4HWA [facility] Last Admin: 11/27/16 06:20 Dose: 10 ml Potassium Chloride 20 meq/ (Dextrose/Sodium Chloride) 1,010 mls @ 50 mls/hr IV ASDIR [facility] Last Admin: 11/26/16 12:48 Dose: 50 mls/hr Insulin Aspart (Novolog Vial Sliding Scale -) 1 vial SQ BIDAC [facility] PRN Reason: Protocol Last Admin: 11/27/16 06:20 Dose: 2 units Lisinopril (Prinivil) 2.5 mg PO DAILY [facility] Last Admin: 11/26/16 10:22 Dose: 2.5 mg Magnesium Oxide (Mag-Ox -) 400 mg PO BID [facility] Last Admin: 11/26/16 22:02 Dose: 400 mg Metoclopramide HCl (Reglan -) 10 mg PO TIDAC PRN PRN Reason: NAUSEA AND/OR VOMITING Metoprolol Tartrate (Lopressor -) 50 mg PO BID [facility] Last Admin: 11/26/16 22:02 Dose: 50 mg Mirtazapine (Remeron -) 15 mg PO HS [facility] Last Admin: 11/26/16 22:02 Dose: 15 mg Multivitamins (Thera-Plus -) 15 ml PO DAILY [facility] Last Admin: 11/26/16 10:22 Dose: 15 ml Systane Ultra Eye (Drops) 1 each OU BID [facility] Last Admin: 11/26/16 22:03 Dose: 1 each Travatan 0.004% Eye (Drops) 1 each OU HS [facility] Last Admin: 11/26/16 22:05 Dose: Not Given Nystatin (Nystatin Oral Suspension -) 500,000 units PO Q6HPO [facility] Last Admin: 11/27/16 06:20 Dose: 500,000 units Ondansetron HCl (Zofran Injection) 8 mg IVPB Q6H PRN PRN Reason: NAUSEA AND/OR VOMITING Senna (Senna -) 2 tab PO HS PRN PRN Reason: CONSTIPATION Tamsulosin HCl (Flomax -) 0.4 mg PO DAILY@0830 [facility] Last Admin: 11/26/16 08:24 Dose: 0.4 mg - Objective Vital Signs: Vital Signs Temperature 98.4 F 11/27/16 06:51 Pulse Rate 90 11/27/16 06:51 Respiratory Rate 20 11/27/16 06:51 Blood Pressure 120/43 11/27/16 06:51 O2 Sat by Pulse Oximetry (%) 96 11/26/16 21:00 Constitutional: Yes: Calm Eyes: Yes: WNL HENT: Yes: WNL Neck: Yes: WNL Cardiovascular: Yes: Regular Rate and Rhythm Respiratory: Yes: Regular Gastrointestinal: Yes: Soft ...Rectal Exam: Yes: Deferred Genitourinary: No: Anuria Breast(s): Yes: WNL Musculoskeletal: Yes: Muscle Weakness Extremities: Yes: WNL Edema: No Peripheral Pulses WNL: No Integumentary: Yes: WNL Neurological: Yes: Alert, Weakness Psychiatric: Yes: Other (dementia) Labs: INR, PTT INR 1.17 (0.82-1.09) H 11/27/16 06:45 Problem List - Problems (1) Diastolic CHF Assessment/Plan: Continue present medications (amlodipine; lisinopril;metoprolol). Continue physical rehabilitation. Code(s): I50.30 - UNSPECIFIED DIASTOLIC (CONGESTIVE) HEART FAILURE (2) Hyperlipidemia Assessment/Plan: On atorvastatin; keep LDL cholesterol < 70 mg/dL. Code(s): E78.5 - HYPERLIPIDEMIA, UNSPECIFIED (3) PSVT (paroxysmal supraventricular tachycardia) Assessment/Plan: On metoprolol. Maintain electrolytes WNL. Code(s): I47.1 - SUPRAVENTRICULAR TACHYCARDIA (4) SBO (small bowel obstruction) Assessment/Plan: Nontender abdomen. f/u with surgeon. Increase physical rehabilitation. Diet adjustment (pt says he dreams of eating eggs, rivero, and toast). Code(s): K56.69 - OTHER INTESTINAL OBSTRUCTION (5) Small bowel mass Code(s): K63.89 - OTHER SPECIFIED DISEASES OF INTESTINE (6) HTN (hypertension) Assessment/Plan: elevated BP. On metoprolol; can change to ER for better 24 hour coverage and compliance. On amlodipine; increased to 10 mg daily; BP is now better-controlled. Started lisinopril 2.5 mg daily; may increase as required for HTN, CHF. Code(s): I10 - ESSENTIAL (PRIMARY) HYPERTENSION (7) Weakness Code(s): R53.1 - WEAKNESS (8) Hypothyroid Assessment/Plan: decreased TSH; free T4 mildly elevated. Code(s): E03.9 - HYPOTHYROIDISM, UNSPECIFIED (9) Hypokalemia Assessment/Plan: Keep K+ 4-4.5 (hx PSVT); Keep Mg 2-2.3 (on MgOx). Keep Po4 2.5-3.5. Added lisinopril for HTN, DM. Code(s): E87.6 - HYPOKALEMIA (10) Hyperglycemia Assessment/Plan: HGBA1c 7.3 Added ACEI for HTN, ?DM, Code(s): R73.9 - HYPERGLYCEMIA, UNSPECIFIED (11) Depression Assessment/Plan: Agree with addition of antidepressant (started, as per pt's daughter). 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 From a cardiac standpoint, there are no absolute contraindications for Mr. Haddad to undergo PEG tube insertion. Code(s): R64 - [place]
[2016-11-27 08:37] LABS: ALBUMIN 2.1 g/dl (3.4-5.0); ALK PHOS 99 U/L (45-117); ANION GAP 8 (8-16); BILIRUBIN,TOTAL 0.8 mg/dL (0.2-1.0); CALCIUM 8.9 mg/dL (8.5-10.1); CO2 28 mmol/L (21-32); CREATININE 0.5 mg/dL (0.7-1.3); GLUCOSE,RANDOM 127 mg/dL (74-106); SGOT/AST 19 U/L (15-37); SGPT/ALT 27 U/L (12-78); TOT PROT 5.8 g/dl (6.4-8.2)
[2016-11-27] MEDS: DOCUSATE SODIUM 100 MG CAPSULE (FP) PO SCH ×2 (09:38→22:42)
[2016-11-27] MEDS: MULTIVITAMINS LIQUID THERAPEUTIC 118 ML BOT PO SCH (09:45)
[2016-11-27] MEDS: TAMSULOSIN HCL 0.4 MG CAP.ER.24H (FP) PO SCH (09:45)
[2016-11-27] MEDS: MAGNESIUM OXIDE 400 MG TABLET (FP) PO SCH ×2 (09:46→21:57)
--- NOTE | 2016-11-27 09:47 | PN ---
Progress Note, Physician History of Present Illness: Pt with cough, improved, minimum white sputum Pt without N, V; pt has no abdominal pain Pt w/o fever, chills. Pt w/o CP, SOB, Palp. Pt with depressed mood-better. Pt with constipation, no BM for few days, passing gas - Current Medication List Current Medications: Active Medications Aclidinium [place] (Tudorza -) 1 puff IH BID [facility] Last Admin: 11/26/16 22:03 Dose: 1 puff Amlodipine Besylate (Norvasc -) 10 mg PO DAILY [facility] Last Admin: 11/26/16 10:21 Dose: 10 mg Docusate Sodium (Colace -) 100 mg PO BID [facility] Last Admin: 11/26/16 22:02 Dose: 100 mg Guaifenesin (Robitussin Dm -) 10 ml PO Q4HWA [facility] Last Admin: 11/27/16 06:20 Dose: 10 ml Potassium Chloride 20 meq/ (Dextrose/Sodium Chloride) 1,010 mls @ 50 mls/hr IV ASDIR [facility] Last Admin: 11/26/16 12:48 Dose: 50 mls/hr Insulin Aspart (Novolog Vial Sliding Scale -) 1 vial SQ BIDAC [facility] PRN Reason: Protocol Last Admin: 11/27/16 06:20 Dose: 2 units Lisinopril (Prinivil) 2.5 mg PO DAILY [facility] Last Admin: 11/26/16 10:22 Dose: 2.5 mg Magnesium Oxide (Mag-Ox -) 400 mg PO BID [facility] Last Admin: 11/26/16 22:02 Dose: 400 mg Metoclopramide HCl (Reglan -) 10 mg PO TIDAC PRN PRN Reason: NAUSEA AND/OR VOMITING Metoprolol Tartrate (Lopressor -) 50 mg PO BID [facility] Last Admin: 11/26/16 22:02 Dose: 50 mg Mirtazapine (Remeron -) 15 mg PO HS [facility] Last Admin: 11/26/16 22:02 Dose: 15 mg Multivitamins (Thera-Plus -) 15 ml PO DAILY [facility] Last Admin: 11/26/16 10:22 Dose: 15 ml Systane Ultra Eye (Drops) 1 each OU BID [facility] Last Admin: 11/26/16 22:03 Dose: 1 each Travatan 0.004% Eye (Drops) 1 each OU HS [facility] Last Admin: 11/26/16 22:05 Dose: Not Given Nystatin (Nystatin Oral Suspension -) 500,000 units PO Q6HPO [facility] Last Admin: 11/27/16 06:20 Dose: 500,000 units Ondansetron HCl (Zofran Injection) 8 mg IVPB Q6H PRN PRN Reason: NAUSEA AND/OR VOMITING Senna (Senna -) 2 tab PO HS PRN PRN Reason: CONSTIPATION Tamsulosin HCl (Flomax -) 0.4 mg PO DAILY@0830 [facility] Last Admin: 11/26/16 08:24 Dose: 0.4 mg - Objective Vital Signs: Vital Signs Temperature 98.4 F 11/27/16 06:51 Pulse Rate 90 11/27/16 06:51 Respiratory Rate 20 11/27/16 06:51 Blood Pressure 120/43 11/27/16 06:51 O2 Sat by Pulse Oximetry (%) 96 11/26/16 21:00 Constitutional: Yes: No Distress, Calm Cardiovascular: Yes: Regular Rate and Rhythm, S1, S2 Respiratory: Yes: Regular, Other (coarse BS at bases) Gastrointestinal: Yes: Normal Bowel Sounds, Soft. No: Tenderness Edema: No Neurological: Yes: Alert, Oriented Labs: CBC, BMP 11/27/16 06:45 11/27/16 06:45 INR, PTT INR 1.17 (0.82-1.09) H 11/27/16 06:45 Problem List - Problems (1) Small bowel mass Code(s): K63.89 - OTHER SPECIFIED DISEASES OF INTESTINE (2) SBO (small bowel obstruction) Code(s): K56.69 - OTHER INTESTINAL OBSTRUCTION (3) Pneumatosis intestinalis Code(s): K63.89 - OTHER SPECIFIED DISEASES OF INTESTINE (4) CHF (congestive heart failure) Code(s): I50.9 - HEART FAILURE, UNSPECIFIED (5) CVA (cerebral infarction) Code(s): I63.9 - CEREBRAL INFARCTION, UNSPECIFIED (6) Chronic obstructive pulmonary disease Code(s): J44.9 - CHRONIC OBSTRUCTIVE PULMONARY DISEASE, UNSPECIFIED (7) Hyperlipidemia Code(s): E78.5 - HYPERLIPIDEMIA, UNSPECIFIED (8) Hypokalemia due to inadequate potassium intake Code(s): E87.6 - HYPOKALEMIA (9) Hypophosphatemia Code(s): E83.39 - OTHER DISORDERS OF PHOSPHORUS METABOLISM (10) HTN (hypertension) Code(s): I10 - ESSENTIAL (PRIMARY) HYPERTENSION (11) Hypomagnesemia Code(s): E83.42 - HYPOMAGNESEMIA (12) Bandemia Code(s): D72.825 - BANDEMIA (13) Pneumonia Code(s): J18.9 - PNEUMONIA, UNSPECIFIED ORGANISM (14) Hypoalbuminemia Code(s): E88.09 - OTH DISORDERS OF PLASMA-PROTEIN METABOLISM, NEC (15) Elevated LFTs Code(s): R79.89 - OTHER SPECIFIED ABNORMAL FINDINGS OF BLOOD CHEMISTRY (16) Urinary retention Code(s): R33.9 - RETENTION OF URINE, UNSPECIFIED (17) Abdominal aneurysm Code(s): I71.4 - ABDOMINAL AORTIC ANEURYSM, WITHOUT RUPTURE (18) Depression Code(s): F32.9 - MAJOR DEPRESSIVE DISORDER, SINGLE EPISODE, UNSPECIFIED (19) Dysphagia Code(s): R13.10 - DYSPHAGIA, UNSPECIFIED Assessment/Plan GI and surgical f/u appreciated Pt was transferred from ICU to Telemetry to medical floor Post op day 35. Pt removed NGT. Pt diet was advanced but has poor PO intake. Pt off TPN. Pt is s/p MBS, + for silent aspiration (diet was changed). Pt with Hx/o + BCX, LLL PNA, s/p IV abtx Pt wants his to make medical decisions if he cannot; both daughters agree with pt. All family's questions were answered. Pt is hemodynamically stable. Pt. is s/p left PICC Line placement; pt removed it. I encourage PO intake, OOBTC Started Remeron (dose was increased), MVI. Swallow evaluation appreciated. I spoke with pt and family about my concern related to poor PO intake, possible the need for TF vs palliative care. All questions were answered. Add nystatin swish and swallow. Psychiatry consult and f/u appreciated- pt was found that does not have capacity to make decisions about his hospital course. To decrease IVF, encourage pt to drink more fluids. Pt and agreed with TF, scheduled for today. Pt is cleared for PEG tube insertion. Miralax today. AM labs. Prognosis: reserved. Case was d/w pt's nurse. .
[2016-11-27] MEDS: METOPROLOL TARTRATE 50 MG TABLET (FP) PO SCH ×2 (09:50→21:57)
[2016-11-27] MEDS: ACLIDINIUM BROMIDE 400 MCG/INH AERO.POWD IH SCH ×2 (09:51→21:58)
[2016-11-27] MEDS: amLODIPine BESYLATE 10 MG TABLET (FP) PO SCH (09:51)
[2016-11-27] MEDS: SYSTANE ULTRA EYE DROPS OU SCH ×2 (09:51→21:58)
[2016-11-27] MEDS: LISINOPRIL 5 MG TABLET (FP) PO SCH (09:51)
[2016-11-27] MEDS ORDERED: PROPOFOL 20 ML ONE (12:31)
[2016-11-27] MEDS ORDERED: ceFAZolin SODIUM 1 GM VIAL ONE (12:40)
--- NOTE | 2016-11-27 13:21 | PN ---
Progress Note (short form) - Note Progress Note: EGD complete. PEG placed Report left in procedural section of physical chart and to be scanned into [employer] Follow PEG instructions as outlined in report and as placed in order section of [employer] Problem List - Problems (1) SBO (small bowel obstruction) Code(s): K56.69 - OTHER INTESTINAL OBSTRUCTION (2) Elevated LFTs Code(s): R79.89 - OTHER SPECIFIED ABNORMAL FINDINGS OF BLOOD CHEMISTRY (3) Abdominal aortic aneurysm (AAA) Code(s): I71.4 - ABDOMINAL AORTIC ANEURYSM, WITHOUT RUPTURE (4) Distended bladder Code(s): N32.89 - OTHER SPECIFIED DISORDERS OF BLADDER
--- NOTE | 2016-11-27 13:33 | PN ---
Progress Note (short form) - Note Progress Note: Post procedure patient w/ O2 saturation 88-92% on 3L NC. Patient denies any focal complaints and appeared to be in no distress. Lung exam revealed fine crackles at left base. RR 18. He is having secretions that were suctioned and cough. He has this prior to procedure as well. CXR ordered Continue NC O2 for now If continued hypoxia consider pulm evaluation Problem List - Problems (1) SBO (small bowel obstruction) Code(s): K56.69 - OTHER INTESTINAL OBSTRUCTION (2) Elevated LFTs Code(s): R79.89 - OTHER SPECIFIED ABNORMAL FINDINGS OF BLOOD CHEMISTRY (3) Abdominal aortic aneurysm (AAA) Code(s): I71.4 - ABDOMINAL AORTIC ANEURYSM, WITHOUT RUPTURE (4) Distended bladder Code(s): N32.89 - OTHER SPECIFIED DISORDERS OF BLADDER
[2016-11-27] MEDS ORDERED: ACETAMINOPHEN 325 MG TABLET (FP) PO PRN (16:52)
[2016-11-27] MEDS: DEXTROSE 5%-NORMAL SALINE 1,000 ML with POTASSIUM CHLORIDE 20 MEQ IV SCH (18:16)
[2016-11-27] MEDS ORDERED: PT OWN MED DRAWER 7, Y5N ONE (18:18)
[2016-11-27] MEDS: TRAVATAN 0.004% OU SCH (21:57)
[2016-11-27] MEDS: MIRTAZAPINE 15 MG TABLET (FP) PO SCH (21:57)
[2016-11-27] MEDS: EYE OU SCH (21:57)
[2016-11-27] MEDS: BACITRACIN 15 GM TUBE TOPICAL OINTMENT TP SCH (22:42)
--- NOTE | 2016-11-27 23:01 | PN ---
Progress Note, Physician Chief Complaint: Pt without complaints. History of Present Illness: 81-year-old black male with no history of abdominal surgery presents to the emergency department complaining of periumbilical 6/10 sharp nonradiating intermittent discomfort with nausea no vomiting, fever, chills, chest pain, shortness of breath, flank pains, urinary symptoms. There are no alleviating or exacerbating factors. Last bowel movement 4 days ago. - Current Medication List Current Medications: Active Medications Acetaminophen (Tylenol -) 650 mg PO Q6H PRN PRN Reason: FEVER OR PAIN Last Admin: 11/27/16 18:24 Dose: 650 mg Aclidinium [place] (Tudorza -) 1 puff IH BID [facility] Last Admin: 11/27/16 21:58 Dose: 1 puff Amlodipine Besylate (Norvasc -) 10 mg PO DAILY [facility] Last Admin: 11/27/16 09:51 Dose: 10 mg Bacitracin (Bacitracin -) 1 applic TP BID [facility] Stop: 12/02/16 10:01 Last Admin: 11/27/16 22:42 Dose: 1 applic Docusate Sodium (Colace -) 100 mg PO BID [facility] Last Admin: 11/27/16 22:42 Dose: Not Given Guaifenesin (Robitussin Dm -) 10 ml PO Q4HWA [facility] Last Admin: 11/27/16 22:31 Dose: 10 ml Insulin Aspart (Novolog Vial Sliding Scale -) 1 vial SQ BIDAC [facility] PRN Reason: Protocol Last Admin: 11/27/16 18:30 Dose: Not Given Lisinopril (Prinivil) 2.5 mg PO DAILY [facility] Last Admin: 11/27/16 09:51 Dose: 2.5 mg Magnesium Oxide (Mag-Ox -) 400 mg PO BID [facility] Last Admin: 11/27/16 21:57 Dose: 400 mg Metoclopramide HCl (Reglan -) 10 mg PO TIDAC PRN PRN Reason: NAUSEA AND/OR VOMITING Metoprolol Tartrate (Lopressor -) 50 mg PO BID [facility] Last Admin: 11/27/16 21:57 Dose: 50 mg Mirtazapine (Remeron -) 15 mg PO HS [facility] Last Admin: 11/27/16 21:57 Dose: 15 mg Multivitamins (Thera-Plus -) 15 ml PO DAILY [facility] Last Admin: 11/27/16 09:45 Dose: Not Given Systane Ultra Eye (Drops) 1 each OU BID [facility] Last Admin: 11/27/16 21:58 Dose: 1 each Travatan 0.004% Eye (Drops) 1 each OU HS [facility] Last Admin: 11/27/16 21:57 Dose: Not Given Nystatin (Nystatin Oral Suspension -) 500,000 units PO Q6HPO [facility] Last Admin: 11/27/16 18:24 Dose: 500,000 units Ondansetron HCl (Zofran Injection) 8 mg IVPB Q6H PRN PRN Reason: NAUSEA AND/OR VOMITING Senna (Senna -) 2 tab PO HS PRN PRN Reason: CONSTIPATION Tamsulosin HCl (Flomax -) 0.4 mg PO DAILY@0830 [facility] Last Admin: 11/27/16 09:45 Dose: Not Given - Objective Vital Signs: Vital Signs Temperature 98.7 F 11/27/16 18:00 Pulse Rate 82 11/27/16 18:00 Respiratory Rate 20 11/27/16 18:00 Blood Pressure 149/74 11/27/16 18:00 O2 Sat by Pulse Oximetry (%) 97 11/27/16 14:21 Constitutional: Yes: No Distress Eyes: Yes: WNL HENT: Yes: WNL Neck: Yes: WNL Cardiovascular: Yes: Regular Rate and Rhythm Respiratory: Yes: Regular, Rales (left base (mild)) Gastrointestinal: Yes: Soft ...Rectal Exam: No: Deferred Genitourinary: No: Anuria Breast(s): Yes: WNL Musculoskeletal: Yes: Muscle Weakness Edema: No Peripheral Pulses WNL: No Peripheral Pulses: Left Doralis Pedis: 1+, Right Dorsalis Pedis: 1+ Integumentary: Yes: Incision Wound/Incision: Yes: Other (healing abdominal surgical site) Neurological: Yes: Weakness Psychiatric: Yes: Other (dementia; confusion) Labs: CBC, BMP 11/27/16 06:45 11/27/16 06:45 INR, PTT INR 1.17 (0.82-1.09) H 11/27/16 06:45 Abnormal Lab Results 11/27/16 11/27/16 11/27/16 06:45 06:45 06:45 MPV 7.2 L INR 1.17 H BUN 5 L Creatinine 0.5 L Random Glucose 127 H Total Protein 5.8 L Albumin 2.1 L Problem List - Problems (1) Diastolic CHF Assessment/Plan: Continue present medications (amlodipine; lisinopril;metoprolol). Continue physical rehabilitation. P for PEG placement today. Code(s): I50.30 - UNSPECIFIED DIASTOLIC (CONGESTIVE) HEART FAILURE (2) Hyperlipidemia Assessment/Plan: On atorvastatin; keep LDL cholesterol < 70 mg/dL. Code(s): E78.5 - HYPERLIPIDEMIA, UNSPECIFIED (3) PSVT (paroxysmal supraventricular tachycardia) Assessment/Plan: On metoprolol. Maintain electrolytes WNL. Maintain hydration. Code(s): I47.1 - SUPRAVENTRICULAR TACHYCARDIA (4) SBO (small bowel obstruction) Assessment/Plan: Nontender abdomen. f/u with surgeon. Increase physical rehabilitation. For PEG placement today. Code(s): K56.69 - OTHER INTESTINAL OBSTRUCTION (5) Small bowel mass Code(s): K63.89 - OTHER SPECIFIED DISEASES OF INTESTINE (6) HTN (hypertension) Assessment/Plan: elevated BP. On metoprolol; can change to ER for better 24 hour coverage and compliance. On amlodipine; increased to 10 mg daily; BP is now better-controlled. Started lisinopril 2.5 mg daily; may increase as required for HTN, CHF. Code(s): I10 - ESSENTIAL (PRIMARY) HYPERTENSION (7) Weakness Code(s): R53.1 - WEAKNESS (8) Hypothyroid Assessment/Plan: decreased TSH; free T4 mildly elevated. Code(s): E03.9 - HYPOTHYROIDISM, UNSPECIFIED (9) Hypokalemia Assessment/Plan: Keep K+ 4-4.5 (hx PSVT); Keep Mg 2-2.3 (on MgOx). Keep Po4 2.5-3.5. Added lisinopril for HTN, DM. Code(s): E87.6 - HYPOKALEMIA (10) Hyperglycemia Assessment/Plan: HGBA1c 7.3 Added ACEI for HTN, ?DM, Code(s): R73.9 - HYPERGLYCEMIA, UNSPECIFIED (11) Depression Assessment/Plan: Agree with addition of antidepressant (started, as per pt's daughter). 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 From a cardiac standpoint, there are no absolute contraindications for Mr. Haddad to undergo PEG tube insertion, which is to be done today. Code(s): R64 - [place]
[2016-11-28] MEDS: NYSTATIN 500,000 UNITS/5 ML SUSPENSION PO SCH ×4 (00:38→17:36)
[2016-11-28] MEDS: guaiFENesin/D-METHORPHAN HB 10 ML UNIT-DOSE CUPS PO SCH ×2 (06:24→11:22)
[2016-11-28] MEDS: INSULIN SLIDING SCALE (NOVOLOG) 1 VIAL SQ SCH ×2 (06:25→17:36)
[2016-11-28 08:03] LABS: MCH 26.9 pg (25.7-33.7); MCHC 32.4 g/dl (32.0-35.9); MEAN PLT VOLUME 7.4 fl (7.5-11.1); PLATELET COUNT 250 K/MM3 (134-434); RDW 14.5 % (11.9-15.9); WHITE BLOOD COUNT 20.2 K/mm3 (4.0-10.0)
[2016-11-28 08:26] LABS: ANION GAP 9 (8-16); CALCIUM 8.8 mg/dL (8.5-10.1); CO2 30 mmol/L (21-32); GLUCOSE,RANDOM 145 mg/dL (74-106)
[2016-11-28 08:27] LABS: CREATININE 0.6 mg/dL (0.7-1.3)
[2016-11-28 09:37] LABS: PLATELET ESTIMATE ADEQUATE (NORMAL)
--- NOTE | 2016-11-28 10:22 | PN ---
Progress Note (short form) - Note Progress Note: Awake and alert. Confused. No acute events overnight. NAD. No CP or SOB. Tolerating PEG feeds. Intake & Output 11/25/16 11/26/16 11/27/16 11/28/16 23:59 23:59 23:59 23:59 Intake Total 1606 1699 1300 Output Total 1350 1600 2000 300 Balance 256 99 -700 -300 Last Vital Signs Temp Pulse Resp BP Pulse Ox 98.6 F 99 H 20 150/65 98 11/28/16 06:00 11/28/16 06:00 11/28/16 06:00 11/28/16 06:00 11/27/16 21:00 Active Medications Acetaminophen (Tylenol -) 650 mg PO Q6H PRN PRN Reason: FEVER OR PAIN Last Admin: 11/27/16 18:24 Dose: 650 mg Aclidinium [place] (Tudorza -) 1 puff IH BID [facility] Last Admin: 11/27/16 21:58 Dose: 1 puff Amlodipine Besylate (Norvasc -) 10 mg PO DAILY [facility] Last Admin: 11/27/16 09:51 Dose: 10 mg Bacitracin (Bacitracin -) 1 applic TP BID [facility] Stop: 12/02/16 10:01 Last Admin: 11/27/16 22:42 Dose: 1 applic Docusate Sodium (Colace -) 100 mg PO BID [facility] Last Admin: 11/27/16 22:42 Dose: Not Given Guaifenesin (Robitussin Dm -) 10 ml PO Q4HWA [facility] Last Admin: 11/28/16 06:24 Dose: 10 ml Insulin Aspart (Novolog Vial Sliding Scale -) 1 vial SQ BIDAC [facility] PRN Reason: Protocol Last Admin: 11/28/16 06:25 Dose: Not Given Lisinopril (Prinivil) 2.5 mg PO DAILY [facility] Last Admin: 11/27/16 09:51 Dose: 2.5 mg Magnesium Oxide (Mag-Ox -) 400 mg PO BID [facility] Last Admin: 11/27/16 21:57 Dose: 400 mg Metoclopramide HCl (Reglan -) 10 mg PO TIDAC PRN PRN Reason: NAUSEA AND/OR VOMITING Metoprolol Tartrate (Lopressor -) 50 mg PO BID [facility] Last Admin: 11/27/16 21:57 Dose: 50 mg Mirtazapine (Remeron -) 15 mg PO HS [facility] Last Admin: 11/27/16 21:57 Dose: 15 mg Multivitamins (Thera-Plus -) 15 ml PO DAILY [facility] Last Admin: 11/27/16 09:45 Dose: Not Given Systane Ultra Eye (Drops) 1 each OU BID [facility] Last Admin: 11/27/16 21:58 Dose: 1 each Travatan 0.004% Eye (Drops) 1 each OU HS [facility] Last Admin: 11/27/16 21:57 Dose: Not Given Nystatin (Nystatin Oral Suspension -) 500,000 units PO Q6HPO [facility] Last Admin: 11/28/16 06:22 Dose: 500,000 units Ondansetron HCl (Zofran Injection) 8 mg IVPB Q6H PRN PRN Reason: NAUSEA AND/OR VOMITING Senna (Senna -) 2 tab PO HS PRN PRN Reason: CONSTIPATION Tamsulosin HCl (Flomax -) 0.4 mg PO DAILY@0830 [facility] Last Admin: 11/27/16 09:45 Dose: Not Given OBJECTIVE: Gen: Awake, NAD at rest Heart: RRR Lung: decreased breath sounds at the bases Abd: soft, (+) BS, NT, (+) PEG Ext: no edema Laboratory Results - last 24 hr 11/27/16 11/28/16 11/28/16 18:29 06:00 06:00 WBC 20.2 H D RBC 4.32 Hgb 11.6 L Hct 35.8 MCV 83.0 MCH 26.9 MCHC 32.4 RDW 14.5 Plt Count 250 MPV 7.4 L Neutrophils % 86.0 H Lymphocytes % 10.0 D Monocytes % 4.0 Differential Comment Slide scanned Platelet Estimate Adequate Sodium 141 Potassium 3.4 L Chloride 102 Carbon Dioxide 30 Anion Gap 9 BUN 8 D Creatinine 0.6 L POC Glucometer 148 Random Glucose 145 H Calcium 8.8 ASSESSMENT AND PLAN: Pneumoatosis Intestinalis Small Bowel Obstruction s/p ex-lap/SB resection COPD HTN Hyperlipidemia CHF h/o CVA - Maximize nutritional needs - incentive spirometry if able - VTE prophylaxis - O2 as needed - BD TX / LAMA - D/C planning Dr Dominguez
[2016-11-28] MEDS ORDERED: PT OWN MED DRAWER 7, Y5N ONE ×2 (11:13→15:28)
[2016-11-28] MEDS: LISINOPRIL 5 MG TABLET (FP) PO SCH (11:22)
[2016-11-28] MEDS: TAMSULOSIN HCL 0.4 MG CAP.ER.24H (FP) PO SCH (11:22)
[2016-11-28] MEDS: MAGNESIUM OXIDE 400 MG TABLET (FP) PO SCH (11:22)
[2016-11-28] MEDS: METOPROLOL TARTRATE 50 MG TABLET (FP) PO SCH (11:22)
[2016-11-28] MEDS: DOCUSATE SODIUM 100 MG CAPSULE (FP) PO SCH (11:22)
[2016-11-28] MEDS: SYSTANE ULTRA EYE DROPS OU SCH ×2 (11:23→21:56)
[2016-11-28] MEDS: BACITRACIN 15 GM TUBE TOPICAL OINTMENT TP SCH ×2 (11:27→21:55)
[2016-11-28] MEDS: amLODIPine BESYLATE 10 MG TABLET (FP) PO SCH (11:27)
[2016-11-28] MEDS: ACLIDINIUM BROMIDE 400 MCG/INH AERO.POWD IH SCH (11:41)
[2016-11-28] MEDS ORDERED: POTASSIUM CHLORIDE ORAL LIQUID 20 MEQ/15 ML PEG ONE (11:55)
[2016-11-28] MEDS ORDERED: POLYETHYLENE GLYCOL 3350 119 GM BTL PO ONE (12:16)
--- NOTE | 2016-11-28 12:16 | PN ---
Progress Note, Physician History of Present Illness: Pt with cough, improved, minimum white sputum Pt without N, V; pt has no abdominal pain Pt w/o fever, chills. Pt w/o CP, SOB, Palp. Pt with depressed mood-better. Pt with constipation, no BM for few days, passing gas - Current Medication List Current Medications: Active Medications Acetaminophen (Tylenol -) 650 mg PO Q6H PRN PRN Reason: FEVER OR PAIN Last Admin: 11/27/16 18:24 Dose: 650 mg Aclidinium [place] (Tudorza -) 1 puff IH BID [facility] Last Admin: 11/28/16 11:41 Dose: 1 puff Amlodipine Besylate (Norvasc -) 10 mg PEG DAILY [facility] Bacitracin (Bacitracin -) 1 applic TP BID [facility] Stop: 12/02/16 10:01 Last Admin: 11/28/16 11:27 Dose: 1 applic Docusate Sodium (Colace -) 100 mg PO BID [facility] Last Admin: 11/28/16 11:22 Dose: 100 mg Insulin Aspart (Novolog Vial Sliding Scale -) 1 vial SQ BIDAC [facility] PRN Reason: Protocol Last Admin: 11/28/16 06:25 Dose: Not Given Lisinopril (Prinivil) 2.5 mg PEG DAILY [facility] Magnesium Oxide (Mag-Ox -) 400 mg PEG BID [facility] Metoclopramide HCl (Reglan -) 10 mg PO TIDAC PRN PRN Reason: NAUSEA AND/OR VOMITING Metoprolol Tartrate (Lopressor -) 50 mg PEG BID [facility] Mirtazapine (Remeron -) 15 mg PEG HS [facility] Multivitamins (Thera-Plus -) 15 ml PO DAILY [facility] Last Admin: 11/27/16 09:45 Dose: Not Given Systane Ultra Eye (Drops) 1 each OU BID [facility] Last Admin: 11/28/16 11:23 Dose: 1 each Travatan 0.004% Eye (Drops) 1 each OU HS [facility] Last Admin: 11/27/16 21:57 Dose: Not Given Nystatin (Nystatin Oral Suspension -) 500,000 units PO Q6HPO [facility] Last Admin: 11/28/16 11:22 Dose: 500,000 units Ondansetron HCl (Zofran Injection) 8 mg IVPB Q6H PRN PRN Reason: NAUSEA AND/OR VOMITING Potassium Chloride (Potassium Chloride Oral Liquid) 40 meq PEG ONCE ONE Stop: 11/28/16 11:56 Senna (Senna -) 2 tab PO HS PRN PRN Reason: CONSTIPATION Tamsulosin HCl (Flomax -) 0.4 mg PO DAILY@0830 [facility] Last Admin: 11/28/16 11:22 Dose: 0.4 mg - Objective Vital Signs: Vital Signs Temperature 98.6 F 11/28/16 06:00 Pulse Rate 99 H 11/28/16 06:00 Respiratory Rate 20 11/28/16 06:00 Blood Pressure 150/65 11/28/16 06:00 O2 Sat by Pulse Oximetry (%) 98 11/27/16 21:00 Constitutional: Yes: No Distress, Calm Cardiovascular: Yes: Regular Rate and Rhythm, S1, S2 Respiratory: Yes: Regular, Other (coarse BS) Gastrointestinal: Yes: Normal Bowel Sounds, Soft, Other (PEG tube). No: Tenderness Edema: No Neurological: Yes: Alert, Oriented Labs: CBC, BMP 11/28/16 06:00 11/28/16 06:00 INR, PTT INR 1.17 (0.82-1.09) H 11/27/16 06:45 Problem List - Problems (1) Small bowel mass Code(s): K63.89 - OTHER SPECIFIED DISEASES OF INTESTINE (2) SBO (small bowel obstruction) Code(s): K56.69 - OTHER INTESTINAL OBSTRUCTION (3) Pneumatosis intestinalis Code(s): K63.89 - OTHER SPECIFIED DISEASES OF INTESTINE (4) CHF (congestive heart failure) Code(s): I50.9 - HEART FAILURE, UNSPECIFIED (5) CVA (cerebral infarction) Code(s): I63.9 - CEREBRAL INFARCTION, UNSPECIFIED (6) Chronic obstructive pulmonary disease Code(s): J44.9 - CHRONIC OBSTRUCTIVE PULMONARY DISEASE, UNSPECIFIED (7) Hyperlipidemia Code(s): E78.5 - HYPERLIPIDEMIA, UNSPECIFIED (8) Hypokalemia due to inadequate potassium intake Code(s): E87.6 - HYPOKALEMIA (9) Hypophosphatemia Code(s): E83.39 - OTHER DISORDERS OF PHOSPHORUS METABOLISM (10) HTN (hypertension) Code(s): I10 - ESSENTIAL (PRIMARY) HYPERTENSION (11) Hypomagnesemia Code(s): E83.42 - HYPOMAGNESEMIA (12) Bandemia Code(s): D72.825 - BANDEMIA (13) Pneumonia Code(s): J18.9 - PNEUMONIA, UNSPECIFIED ORGANISM (14) Hypoalbuminemia Code(s): E88.09 - OTH DISORDERS OF PLASMA-PROTEIN METABOLISM, NEC (15) Elevated LFTs Code(s): R79.89 - OTHER SPECIFIED ABNORMAL FINDINGS OF BLOOD CHEMISTRY (16) Urinary retention Code(s): R33.9 - RETENTION OF URINE, UNSPECIFIED (17) Abdominal aneurysm Code(s): I71.4 - ABDOMINAL AORTIC ANEURYSM, WITHOUT RUPTURE (18) Depression Code(s): F32.9 - MAJOR DEPRESSIVE DISORDER, SINGLE EPISODE, UNSPECIFIED (19) Dysphagia Code(s): R13.10 - DYSPHAGIA, UNSPECIFIED Assessment/Plan GI and surgical f/u appreciated Pt was transferred from ICU to Telemetry to medical floor Post op day 36. Pt removed NGT. Pt diet was advanced but has poor PO intake. Pt off TPN. Pt is s/p MBS, + for silent aspiration (diet was changed). Pt with Hx/o + BCX, LLL PNA, s/p IV abtx Pt wants his to make medical decisions if he cannot; both daughters agree with pt. All family's questions were answered. Pt is hemodynamically stable. Pt. is s/p left PICC Line placement; pt removed it. I encourage PO intake, OOBTC Started Remeron (dose was increased), MVI. Swallow evaluation appreciated. I spoke with pt and family about my concern related to poor PO intake, possible the need for TF vs palliative care. All questions were answered. Add nystatin swish and swallow. Psychiatry consult and f/u appreciated- pt was found that does not have capacity to make decisions about his hospital course. To decrease IVF, encourage pt to drink more fluids. Pt and agreed with TF, scheduled for today. S/p PEG placement yesterday Miralax today. Leukocytosis; to order CXR AM labs. Prognosis: reserved. Case was d/w pt's nurse. .
[2016-11-28] MEDS ORDERED: POLYETHYLENE GLYCOL 3350 119 GM BTL GT ONE (13:00)
[2016-11-28] MEDS ORDERED: MULTIVIT-MINERALS 236 ML ML GT SCH (14:29)
--- NOTE | 2016-11-28 14:39 | PN ---
GI Progress Note Subjective: GI NOte: Tolerating feedings. Has minimal pain at PEG site. - Objective Vital Signs: Vital Signs Temperature 98.6 F 11/28/16 06:00 Pulse Rate 99 H 11/28/16 06:00 Respiratory Rate 20 11/28/16 06:00 Blood Pressure 150/65 11/28/16 06:00 O2 Sat by Pulse Oximetry (%) 98 11/27/16 21:00 Constitutional: No Distress Gastrointestinal Inspection: Yes: Other (PEG site cleansed and Bacitracin applied after the bumper was rotated.) ...Auscultate: Yes: Normoactive Bowel Sounds Labs: CBC, BMP 11/28/16 06:00 11/28/16 06:00 INR, PTT INR 1.17 (0.82-1.09) H 11/27/16 06:45 Assessment/Plan Feeding rate increased.
[2016-11-28] MEDS: SCOPOLAMINE HYDROBROMIDE 1 PATCH PATCH.TD72 TD SCH (15:26)
[2016-11-28] MEDS: MULTIVITAMINS LIQUID THERAPEUTIC 118 ML BOT PO SCH (15:31)
[2016-11-28] MEDS: MULTIVIT-MINERALS 236 ML ML GT SCH (15:31)
[2016-11-28] MEDS: METOPROLOL TARTRATE 50 MG TABLET (FP) PEG SCH (21:53)
[2016-11-28] MEDS: MAGNESIUM OXIDE 400 MG TABLET (FP) PEG SCH (21:53)
[2016-11-28] MEDS: MIRTAZAPINE 15 MG TABLET (FP) PEG SCH (21:53)
[2016-11-28] MEDS: TRAVATAN 0.004% OU SCH (21:56)
[2016-11-28] MEDS: EYE OU SCH (21:56)
[2016-11-28] MEDS: DOCUSATE NA 100 MG/10 ML UNIT-DOSE CUPS GT SCH (21:59)
[2016-11-29] MEDS: NYSTATIN 500,000 UNITS/5 ML SUSPENSION PO SCH ×3 (00:42→13:36)
[2016-11-29] MEDS: INSULIN SLIDING SCALE (NOVOLOG) 1 VIAL SQ SCH ×2 (06:25→17:57)
[2016-11-29 08:00] LABS: BASOPHIL 0.3 % (0-2.0); EOSINOPHIL 0.5 % (0-4.5); MCH 27.2 pg (25.7-33.7); MCHC 32.7 g/dl (32.0-35.9); MEAN PLT VOLUME 7.4 fl (7.5-11.1); PLATELET COUNT 236 K/MM3 (134-434); RDW 14.7 % (11.9-15.9); WHITE BLOOD COUNT 13.9 K/mm3 (4.0-10.0)
[2016-11-29 08:51] LABS: ALBUMIN 2.3 g/dl (3.4-5.0); ANION GAP 8 (8-16); CO2 32 mmol/L (21-32); GLUCOSE,RANDOM 124 mg/dL (74-106); SGPT/ALT 24 U/L (12-78)
[2016-11-29 08:56] LABS: ALK PHOS 120 U/L (45-117); BILIRUBIN,TOTAL 0.8 mg/dL (0.2-1.0); CALCIUM 8.9 mg/dL (8.5-10.1); CREATININE 0.6 mg/dL (0.7-1.3); SGOT/AST 23 U/L (15-37); TOT PROT 6.2 g/dl (6.4-8.2)
[2016-11-29] MEDS: ACETAMINOPHEN 650 MG/20.3 ML ORAL SOLUTION (CUPS) GT PRN ×2 (09:07→18:57)
[2016-11-29] MEDS: TAMSULOSIN HCL 0.4 MG CAP.ER.24H (FP) PO SCH (09:07)
[2016-11-29] MEDS: BACITRACIN 15 GM TUBE TOPICAL OINTMENT TP SCH ×2 (09:07→22:19)
[2016-11-29] MEDS: MULTIVIT-MINERALS 236 ML ML GT SCH (09:07)
[2016-11-29] MEDS: DOCUSATE NA 100 MG/10 ML UNIT-DOSE CUPS GT SCH ×2 (09:07→22:20)
[2016-11-29] MEDS: METOCLOPRAMIDE HCL 5 MG/5 ML UNIT DOSE CUP GT PRN (09:07)
[2016-11-29] MEDS: SYSTANE ULTRA EYE DROPS OU SCH ×2 (09:08→22:21)
[2016-11-29] MEDS: LISINOPRIL 5 MG TABLET (FP) PEG SCH (09:08)
[2016-11-29] MEDS: amLODIPine BESYLATE 10 MG TABLET (FP) PEG SCH (09:08)
[2016-11-29] MEDS: MAGNESIUM OXIDE 400 MG TABLET (FP) PEG SCH ×2 (09:08→22:17)
[2016-11-29] MEDS: METOPROLOL TARTRATE 50 MG TABLET (FP) PEG SCH ×2 (09:08→22:26)
--- NOTE | 2016-11-29 10:48 | PN ---
Progress Note (short form) - Note Progress Note: Awake and alert. Mildly confused. No acute events overnight. Denies CP or SOB. Tolerating PEG feeds. Noted elevated WBC : There is definite readiographic improvement from previous with minimal RLL and LLL atelectasis (left is more prominent). Do not suspect gross infiltrate. Intake & Output 11/26/16 11/27/16 11/28/16 11/29/16 23:59 23:59 23:59 23:59 Intake Total 1699 1300 450 Output Total 1600 2000 700 250 Balance 99 -700 -250 -250 Last Vital Signs Temp Pulse Resp BP Pulse Ox 98.8 F 90 20 141/77 95 11/29/16 06:00 11/29/16 06:00 11/29/16 06:00 11/29/16 06:00 11/28/16 21:00 Active Medications Acetaminophen (Tylenol Oral Solution -) 650 mg GT Q6H PRN PRN Reason: FEVER OR PAIN Last Admin: 11/29/16 09:07 Dose: 650 mg Amlodipine Besylate (Norvasc -) 10 mg PEG DAILY [facility] Last Admin: 11/29/16 09:08 Dose: 10 mg Bacitracin (Bacitracin -) 1 applic TP BID [facility] Stop: 12/02/16 10:01 Last Admin: 11/29/16 09:07 Dose: 1 applic Docusate Sodium (Colace Liquid -) 100 mg GT BID [facility] Last Admin: 11/29/16 09:07 Dose: 100 mg Insulin Aspart (Novolog Vial Sliding Scale -) 1 vial SQ BIDAC [facility] PRN Reason: Protocol Last Admin: 11/29/16 06:25 Dose: Not Given Lisinopril (Prinivil) 2.5 mg PEG DAILY [facility] Last Admin: 11/29/16 09:08 Dose: 2.5 mg Magnesium Oxide (Mag-Ox -) 400 mg PEG BID [facility] Last Admin: 11/29/16 09:08 Dose: 400 mg Metoclopramide HCl (Reglan Oral Solution -) 10 mg GT TIDAC PRN PRN Reason: NAUSEA AND/OR VOMITING Last Admin: 11/29/16 09:07 Dose: 10 mg Metoprolol Tartrate (Lopressor -) 50 mg PEG BID [facility] Last Admin: 11/29/16 09:08 Dose: 50 mg Mirtazapine (Remeron -) 15 mg PEG HS [facility] Last Admin: 11/28/16 21:53 Dose: 15 mg Systane Ultra Eye (Drops) 1 each OU BID [facility] Last Admin: 11/29/16 09:08 Dose: 1 each Travatan 0.004% Eye (Drops) 1 each OU HS [facility] Last Admin: 11/28/16 21:56 Dose: Not Given Nystatin (Nystatin Oral Suspension -) 500,000 units PO Q6HPO [facility] Last Admin: 11/29/16 05:55 Dose: 500,000 units Ondansetron HCl (Zofran Injection) 8 mg IVPB Q6H PRN PRN Reason: NAUSEA AND/OR VOMITING Scopolamine HBr (Transderm-Scop -) 1 patch TD Q3D@1000 [facility] Last Admin: 11/28/16 15:26 Dose: 1 patch Senna (Senna -) 2 tab PO HS PRN PRN Reason: CONSTIPATION Tamsulosin HCl (Flomax -) 0.4 mg PO DAILY@0830 [facility] Last Admin: 11/29/16 09:07 Dose: 0.4 mg OBJECTIVE: Gen: Awake, NAD at rest Heart: RRR Lung: decreased breath sounds at the bases Abd: soft, (+) BS, NT, (+) PEG Ext: no edema Laboratory Results - last 24 hr 11/28/16 11/29/16 11/29/16 17:35 05:43 06:00 WBC 13.9 H D RBC 4.45 Hgb 12.1 Hct 37.0 MCV 83.0 MCH 27.2 MCHC 32.7 RDW 14.7 Plt Count 236 MPV 7.4 L Neutrophils % 78.0 Lymphocytes % 14.5 D Monocytes % 6.7 Eosinophils % 0.5 Basophils % 0.3 Sodium Potassium Chloride Carbon Dioxide Anion Gap BUN Creatinine Creat Clearance w eGFR POC Glucometer 145 150 Random Glucose Calcium Total Bilirubin AST ALT Alkaline Phosphatase Total Protein Albumin 11/29/16 06:00 WBC RBC Hgb Hct MCV MCH MCHC RDW Plt Count MPV Neutrophils % Lymphocytes % Monocytes % Eosinophils % Basophils % Sodium 142 Potassium 3.8 Chloride 102 Carbon Dioxide 32 Anion Gap 8 BUN 12 D Creatinine 0.6 L Creat Clearance w eGFR > 60 POC Glucometer Random Glucose 124 H Calcium 8.9 Total Bilirubin 0.8 AST 23 D ALT 24 Alkaline Phosphatase 120 H D Total Protein 6.2 L Albumin 2.3 L ASSESSMENT AND PLAN: Do not suspect active PNA Pneumoatosis Intestinalis Small Bowel Obstruction s/p ex-lap/SB resection COPD HTN Hyperlipidemia CHF h/o CVA - Need to increase ambulation/PT/Incentive Spirometry - Maximize nutritional needs - VTE prophylaxis - O2 as needed - BD TX / LAMA - No Pulmonary contraindication for D/C planning Dr Dominguez
--- NOTE | 2016-11-29 11:00 | PN ---
Progress Note, Physician Chief Complaint: in bed had fever some cough, no abdominal pain consults meds labs and tests reviewed - Current Medication List Current Medications: Active Medications Acetaminophen (Tylenol Oral Solution -) 650 mg GT Q6H PRN PRN Reason: FEVER OR PAIN Last Admin: 11/29/16 09:07 Dose: 650 mg Amlodipine Besylate (Norvasc -) 10 mg PEG DAILY [facility] Last Admin: 11/29/16 09:08 Dose: 10 mg Arformoterol Tartrate (Brovana (Restricted To Pulmonology/Resp) -) 1 amp NEB BID [facility] Bacitracin (Bacitracin -) 1 applic TP BID [facility] Stop: 12/02/16 10:01 Last Admin: 11/29/16 09:07 Dose: 1 applic Docusate Sodium (Colace Liquid -) 100 mg GT BID [facility] Last Admin: 11/29/16 09:07 Dose: 100 mg Insulin Aspart (Novolog Vial Sliding Scale -) 1 vial SQ BIDAC [facility] PRN Reason: Protocol Last Admin: 11/29/16 06:25 Dose: Not Given Lisinopril (Prinivil) 2.5 mg PEG DAILY [facility] Last Admin: 11/29/16 09:08 Dose: 2.5 mg Magnesium Oxide (Mag-Ox -) 400 mg PEG BID [facility] Last Admin: 11/29/16 09:08 Dose: 400 mg Metoclopramide HCl (Reglan Oral Solution -) 10 mg GT TIDAC PRN PRN Reason: NAUSEA AND/OR VOMITING Last Admin: 11/29/16 09:07 Dose: 10 mg Metoprolol Tartrate (Lopressor -) 50 mg PEG BID [facility] Last Admin: 11/29/16 09:08 Dose: 50 mg Mirtazapine (Remeron -) 15 mg PEG HS [facility] Last Admin: 11/28/16 21:53 Dose: 15 mg Systane Ultra Eye (Drops) 1 each OU BID [facility] Last Admin: 11/29/16 09:08 Dose: 1 each Travatan 0.004% Eye (Drops) 1 each OU HS [facility] Last Admin: 11/28/16 21:56 Dose: Not Given Nystatin (Nystatin Oral Suspension -) 500,000 units PO Q6HPO [facility] Last Admin: 11/29/16 05:55 Dose: 500,000 units Ondansetron HCl (Zofran Injection) 8 mg IVPB Q6H PRN PRN Reason: NAUSEA AND/OR VOMITING Scopolamine HBr (Transderm-Scop -) 1 patch TD Q3D@1000 [facility] Last Admin: 11/28/16 15:26 Dose: 1 patch Senna (Senna -) 2 tab PO HS PRN PRN Reason: CONSTIPATION Tamsulosin HCl (Flomax -) 0.4 mg PO DAILY@0830 [facility] Last Admin: 11/29/16 09:07 Dose: 0.4 mg - Objective Vital Signs: Vital Signs Temperature 98.8 F 11/29/16 06:00 Pulse Rate 90 11/29/16 06:00 Respiratory Rate 20 11/29/16 06:00 Blood Pressure 141/77 11/29/16 06:00 O2 Sat by Pulse Oximetry (%) 95 11/28/16 21:00 Constitutional: Yes: No Distress, Calm Eyes: Yes: Conjunctiva Clear HENT: Yes: Atraumatic Neck: Yes: Supple Cardiovascular: Yes: Regular Rate and Rhythm Respiratory: Yes: Diminished Gastrointestinal: Yes: Soft. No: Tenderness Genitourinary: No: CVA Tenderness - Left, CVA Tenderness - Right Musculoskeletal: No: Joint Stiffness, Joint Swelling Extremities: No: Cold, Cool Edema: No Integumentary: No: Rash, Venous Stasis Changes Neurological: Yes: WNL, Alert. No: Oriented ...Motor Strength: WNL Psychiatric: Yes: WNL, Alert. No: Oriented, Agitated, Suicidal Ideation Labs: CBC, BMP 11/29/16 06:00 11/29/16 06:00 INR, PTT INR 1.17 (0.82-1.09) H 11/27/16 06:45 - ....Imaging Other: Report Reviewed Assessment/Plan Pt with Small Bowel Obstruction, s/p ex-lap/SB resection h/o: COPD HTN Hyperlipidemia CHF h/o CVA now with: Fever/ vomiting/ cough- possible aspiration s/p PEG S/P klebseilla bacteremia/ sepsis S/P exploratory laparotomy/ bowel resection Leukocytosis Await c/s Empiric coverage aspiration/ HCAP with zosyn continue previous meds DNR DNI prognosis guarded dw staff
[2016-11-29] MEDS: ARFORMOTEROL TARTRATE 15 MCG/2 ML VIAL NEB SCH ×2 (11:55→22:15)
--- NOTE | 2016-11-29 12:25 | PN ---
Progress Note, Physician History of Present Illness: Awake Offers no complaints High grade fever, cough reported Marked increase in WBC Episode of vomiting Repeat c/s obtained - Current Medication List Current Medications: Active Medications Acetaminophen (Tylenol Oral Solution -) 650 mg GT Q6H PRN PRN Reason: FEVER OR PAIN Last Admin: 11/29/16 09:07 Dose: 650 mg Amlodipine Besylate (Norvasc -) 10 mg PEG DAILY [facility] Last Admin: 11/29/16 09:08 Dose: 10 mg Arformoterol Tartrate (Brovana (Restricted To Pulmonology/Resp) -) 1 amp NEB BID [facility] Last Admin: 11/29/16 11:55 Dose: 1 amp Bacitracin (Bacitracin -) 1 applic TP BID [facility] Stop: 12/02/16 10:01 Last Admin: 11/29/16 09:07 Dose: 1 applic Docusate Sodium (Colace Liquid -) 100 mg GT BID [facility] Last Admin: 11/29/16 09:07 Dose: 100 mg Insulin Aspart (Novolog Vial Sliding Scale -) 1 vial SQ BIDAC [facility] PRN Reason: Protocol Last Admin: 11/29/16 06:25 Dose: Not Given Lisinopril (Prinivil) 2.5 mg PEG DAILY [facility] Last Admin: 11/29/16 09:08 Dose: 2.5 mg Magnesium Oxide (Mag-Ox -) 400 mg PEG BID [facility] Last Admin: 11/29/16 09:08 Dose: 400 mg Metoclopramide HCl (Reglan Oral Solution -) 10 mg GT TIDAC PRN PRN Reason: NAUSEA AND/OR VOMITING Last Admin: 11/29/16 09:07 Dose: 10 mg Metoprolol Tartrate (Lopressor -) 50 mg PEG BID [facility] Last Admin: 11/29/16 09:08 Dose: 50 mg Mirtazapine (Remeron -) 15 mg PEG HS [facility] Last Admin: 11/28/16 21:53 Dose: 15 mg Systane Ultra Eye (Drops) 1 each OU BID [facility] Last Admin: 11/29/16 09:08 Dose: 1 each Travatan 0.004% Eye (Drops) 1 each OU HS [facility] Last Admin: 11/28/16 21:56 Dose: Not Given Nystatin (Nystatin Oral Suspension -) 500,000 units PO Q6HPO [facility] Last Admin: 11/29/16 05:55 Dose: 500,000 units Ondansetron HCl (Zofran Injection) 8 mg IVPB Q6H PRN PRN Reason: NAUSEA AND/OR VOMITING Scopolamine HBr (Transderm-Scop -) 1 patch TD Q3D@1000 [facility] Last Admin: 11/28/16 15:26 Dose: 1 patch Senna (Senna -) 2 tab PO HS PRN PRN Reason: CONSTIPATION Tamsulosin HCl (Flomax -) 0.4 mg PO DAILY@0830 [facility] Last Admin: 11/29/16 09:07 Dose: 0.4 mg - Objective Vital Signs: Vital Signs Temperature 98.8 F 11/29/16 06:00 Pulse Rate 90 11/29/16 06:00 Respiratory Rate 20 11/29/16 06:00 Blood Pressure 141/77 11/29/16 06:00 O2 Sat by Pulse Oximetry (%) 95 11/28/16 21:00 Constitutional: Yes: No Distress Eyes: Yes: Conjunctiva Clear Cardiovascular: Yes: Regular Rate and Rhythm, S1, S2 Respiratory: Yes: Diminished Gastrointestinal: Yes: Normal Bowel Sounds, Soft. No: Tenderness Labs: CBC, BMP 11/29/16 06:00 11/29/16 06:00 INR, PTT INR 1.17 (0.82-1.09) H 11/27/16 06:45 Assessment/Plan Fever/ vomiting/ cough- possible aspiration S/P klebseilla bacteremia/ sepsis S/P exploratory laparotomy/ bowel resection Leukocytosis Await c/s Empiric coverage aspiration/ HCAP with zosyn
--- NOTE | 2016-11-29 13:33 | PN ---
GI Progress Note Subjective: GI NOte: Had fever to 101 this AM with WBC rise to 20K yesterday now down to 13K. CXR reveals atelectasis. KUB reveals PEG is in a good position. Had an episode of vomiting so feedings were stopped. No subsequent vomiting. Adair denies pain or nausea. - Objective Vital Signs: Vital Signs Temperature 98.8 F 11/29/16 06:00 Pulse Rate 90 11/29/16 06:00 Respiratory Rate 20 11/29/16 06:00 Blood Pressure 141/77 11/29/16 06:00 O2 Sat by Pulse Oximetry (%) 95 11/28/16 21:00 Constitutional: Calm Gastrointestinal Inspection: Yes: Other (the PEG was just cleansed and bacitracin applied so I just rotated the bumper. PEG site is nonfluctuant and appears clean.) ...Auscultate: Yes: Hypoactive Bowel Sounds Labs: CBC, BMP 11/29/16 06:00 11/29/16 06:00 INR, PTT INR 1.17 (0.82-1.09) H 11/27/16 06:45 Assessment/Plan Day 2 s/p PEG insertion. Will restart PEG feedings but at 30cc/hr continuous drip to avoid accelerated 12 hour feeding rate.. Will stop Nystatin in favir of mycelex brian to avoid aspiration risk.
[2016-11-29] MEDS ORDERED: DEXTROSE 5%-WATER - 50 ML IVPB ONE ×2 (14:19→17:45)
[2016-11-29] MEDS ORDERED: PIPERACILLIN/TAZOBACTAM 3.375 GM VIAL IVPB ONE ×2 (14:19→17:44)
[2016-11-29] MEDS: PIPERACILLIN/TAZOB 3.375 GM 3.375 GM in DEXTROSE 5%-WATER - 50 ML IVPB SCH ×2 (14:33→17:50)
[2016-11-29 15:27] LABS: URINE APPEARANCE CLEAR; URINE BILIRUBIN NEGATIVE (NEGATIVE); URINE BLOOD 3+ (NEGATIVE); URINE COLOR DKYELLOW; URINE GLUCOSE (UA) NEGATIVE (NEGATIVE); URINE KETONE NEGATIVE (NEGATIVE); URINE NITRITE NEGATIVE (NEGATIVE); URINE UROBILINOGEN 4.0 E.U/dl mg/dL (0.2-1.0)
[2016-11-29 15:28] LABS: URINE LEUK ESTERASE 2+ (NEGATIVE); URINE PROTEIN 2+ (NEGATIVE)
[2016-11-29 15:31] LABS: URINE MUCUS RARE; URINE RBC 137 /hpf (0-3); URINE WBC 32 /hpf (3-5)
[2016-11-29 16:17] LABS: URINE BACTERIA FEW /hpf (NONE SEEN)
[2016-11-29] MEDS: CLOTRIMAZOLE 10 MG TROCHE (FP) PO SCH ×3 (16:52→22:32)
[2016-11-29] MEDS: MIRTAZAPINE 15 MG TABLET (FP) PEG SCH (22:17)
[2016-11-29] MEDS: TRAVATAN 0.004% OU SCH (22:23)
[2016-11-29] MEDS: EYE OU SCH (22:23)
[2016-11-29] MEDS ORDERED: PT OWN MED DRAWER 7, Y5N ONE (23:04)
[2016-11-30] MEDS ORDERED: PIPERACILLIN/TAZOBACTAM 3.375 GM VIAL IVPB ONE ×3 (01:18→17:53)
[2016-11-30] MEDS ORDERED: DEXTROSE 5%-WATER - 50 ML IVPB ONE ×3 (01:18→17:53)
[2016-11-30] MEDS: PIPERACILLIN/TAZOB 3.375 GM 3.375 GM in DEXTROSE 5%-WATER - 50 ML IVPB SCH ×3 (01:44→17:57)
[2016-11-30] MEDS: CLOTRIMAZOLE 10 MG TROCHE (FP) PO SCH ×5 (06:28→23:36)
[2016-11-30] MEDS: INSULIN SLIDING SCALE (NOVOLOG) 1 VIAL SQ SCH ×2 (06:42→18:03)
[2016-11-30 08:12] LABS: MCH 27.3 pg (25.7-33.7); MCHC 32.9 g/dl (32.0-35.9); MEAN CELL VOLUME 82.8 fl (80-96); MEAN PLT VOLUME 7.7 fl (7.5-11.1); PLATELET COUNT 225 K/MM3 (134-434); RDW 14.6 % (11.9-15.9); WHITE BLOOD COUNT 24.3 K/mm3 (4.0-10.0)
[2016-11-30 08:37] LABS: ALK PHOS 111 U/L (45-117); ANION GAP 8 (8-16); BILIRUBIN,TOTAL 1.1 mg/dL (0.2-1.0); CALCIUM 9.5 mg/dL (8.5-10.1); CO2 30 mmol/L (21-32); CREATININE 0.8 mg/dL (0.7-1.3); GLUCOSE,RANDOM 131 mg/dL (74-106); SGOT/AST 19 U/L (15-37); SGPT/ALT 20 U/L (12-78)
[2016-11-30] MEDS: ACETAMINOPHEN 650 MG/20.3 ML ORAL SOLUTION (CUPS) GT PRN (08:47)
[2016-11-30] MEDS: TAMSULOSIN HCL 0.4 MG CAP.ER.24H (FP) PO SCH (08:51)
--- NOTE | 2016-11-30 09:23 | PN ---
Progress Note (short form) - Note Progress Note: Awake and alert. Clinically appears stable. Noted that he was started on empiric ABX to cover possible aspiration. Denies CP or SOB. PEG feeds restarted. Intake & Output 11/27/16 11/28/16 11/29/16 11/30/16 23:59 23:59 23:59 23:59 Intake Total 1300 450 300 740 Output Total 2000 700 1070 200 Balance -700 -250 -770 540 Last Vital Signs Temp Pulse Resp BP Pulse Ox 100.7 F H 103 H 20 126/71 95 11/30/16 06:00 11/30/16 06:00 11/30/16 06:00 11/30/16 06:00 11/29/16 21:00 Active Medications Acetaminophen (Tylenol Oral Solution -) 650 mg GT Q6H PRN PRN Reason: FEVER OR PAIN Last Admin: 11/30/16 08:47 Dose: 650 mg Amlodipine Besylate (Norvasc -) 10 mg PEG DAILY [facility] Last Admin: 11/29/16 09:08 Dose: 10 mg Arformoterol Tartrate (Brovana (Restricted To Pulmonology/Resp) -) 1 amp NEB BID [facility] Last Admin: 11/29/16 22:15 Dose: 1 amp Bacitracin (Bacitracin -) 1 applic TP BID [facility] Stop: 12/02/16 10:01 Last Admin: 11/29/16 22:19 Dose: 1 applic Clotrimazole (Mycelex Miri's -) 10 mg PO 5XD [facility] Last Admin: 11/30/16 06:28 Dose: 10 mg Docusate Sodium (Colace Liquid -) 100 mg GT BID [facility] Last Admin: 11/29/16 22:20 Dose: 100 mg Piperacillin Sod/Tazobactam (Sod 3.375 gm/ Dextrose) 50 mls @ 100 mls/hr IVPB Q8H-IV [facility] PRN Reason: Protocol Last Admin: 11/30/16 01:44 Dose: 100 mls/hr Insulin Aspart (Novolog Vial Sliding Scale -) 1 vial SQ BIDAC [facility] PRN Reason: Protocol Last Admin: 11/30/16 06:42 Dose: 2 units Lisinopril (Prinivil) 2.5 mg PEG DAILY [facility] Last Admin: 11/29/16 09:08 Dose: 2.5 mg Magnesium Oxide (Mag-Ox -) 400 mg PEG BID [facility] Last Admin: 11/29/16 22:17 Dose: 400 mg Metoclopramide HCl (Reglan Oral Solution -) 10 mg GT TIDAC PRN PRN Reason: NAUSEA AND/OR VOMITING Last Admin: 11/29/16 09:07 Dose: 10 mg Metoprolol Tartrate (Lopressor -) 50 mg PEG BID [facility] Last Admin: 11/29/16 22:26 Dose: Not Given Mirtazapine (Remeron -) 15 mg PEG HS [facility] Last Admin: 11/29/16 22:17 Dose: 15 mg Systane Ultra Eye (Drops) 1 each OU BID [facility] Last Admin: 11/29/16 22:21 Dose: 1 each Travatan 0.004% Eye (Drops) 1 each OU HS [facility] Last Admin: 11/29/16 22:23 Dose: Not Given Ondansetron HCl (Zofran Injection) 8 mg IVPB Q6H PRN PRN Reason: NAUSEA AND/OR VOMITING Scopolamine HBr (Transderm-Scop -) 1 patch TD Q3D@1000 [facility] Last Admin: 11/28/16 15:26 Dose: 1 patch Senna (Senna -) 2 tab PO HS PRN PRN Reason: CONSTIPATION Tamsulosin HCl (Flomax -) 0.4 mg PO DAILY@0830 [facility] Last Admin: 11/30/16 08:51 Dose: 0.4 mg OBJECTIVE: Gen: Awake, NAD at rest Heart: RRR Lung: decreased breath sounds at the bases Abd: soft, (+) BS, NT, (+) PEG Ext: no edema Laboratory Results - last 24 hr 11/29/16 11/29/16 11/30/16 14:10 17:55 06:00 WBC 24.3 H D RBC 4.35 Hgb 11.9 Hct 36.0 MCV 82.8 MCH 27.3 MCHC 32.9 RDW 14.6 Plt Count 225 MPV 7.7 Neutrophils % Y Lymphocytes % Y Sodium Potassium Chloride Carbon Dioxide Anion Gap BUN Creatinine Creat Clearance w eGFR POC Glucometer 284 Random Glucose Calcium Total Bilirubin AST ALT Alkaline Phosphatase Total Protein Albumin Urine Color Dkyellow Urine Appearance Clear Urine pH 5.0 Ur Specific [place] 1.015 Urine Protein 2+ H Urine Glucose (UA) Negative Urine Ketones Negative Urine Blood 3+ H Urine Nitrite Negative Urine Bilirubin Negative Urine Urobilinogen 4.0 e.u/dl Ur Leukocyte Esterase 2+ H Urine RBC 137 Urine WBC 32 Ur Epithelial Cells Rare Urine Bacteria Few Urine Mucus Rare 11/30/16 11/30/16 06:00 06:23 WBC RBC Hgb Hct MCV MCH MCHC RDW Plt Count MPV Neutrophils % Lymphocytes % Sodium 139 Potassium 3.8 Chloride 101 Carbon Dioxide 30 Anion Gap 8 BUN 16 D Creatinine 0.8 D Creat Clearance w eGFR > 60 POC Glucometer 163 Random Glucose 131 H Calcium 9.5 Total Bilirubin 1.1 H D AST 19 ALT 20 Alkaline Phosphatase 111 Total Protein 6.0 L Albumin 2.0 L Urine Color Urine Appearance Urine pH Ur Specific [place] Urine Protein Urine Glucose (UA) Urine Ketones Urine Blood Urine Nitrite Urine Bilirubin Urine Urobilinogen Ur Leukocyte Esterase Urine RBC Urine WBC Ur Epithelial Cells Urine Bacteria Urine Mucus ASSESSMENT AND PLAN: (?) New aspiration Pneumonitis Pneumoatosis Intestinalis Small Bowel Obstruction s/p ex-lap/SB resection COPD HTN Hyperlipidemia CHF h/o CVA - Empiric ABX per ID - Need to increase ambulation/PT/Incentive Spirometry - Maximize nutritional needs - VTE prophylaxis - O2 as needed - BD TX / LAMA - CXR Dr Dominguez
[2016-11-30] MEDS: ARFORMOTEROL TARTRATE 15 MCG/2 ML VIAL NEB SCH ×2 (09:48→22:30)
[2016-11-30] MEDS ORDERED: PT OWN MED DRAWER 7, Y5N ONE ×4 (10:49→23:27)
[2016-11-30] MEDS: BACITRACIN 15 GM TUBE TOPICAL OINTMENT TP SCH ×2 (10:56→23:36)
[2016-11-30] MEDS: MULTIVIT-MINERALS 236 ML ML GT SCH (10:56)
[2016-11-30] MEDS: amLODIPine BESYLATE 10 MG TABLET (FP) PEG SCH (10:57)
[2016-11-30] MEDS: MAGNESIUM OXIDE 400 MG TABLET (FP) PEG SCH ×2 (10:57→23:35)
[2016-11-30] MEDS: DOCUSATE NA 100 MG/10 ML UNIT-DOSE CUPS GT SCH ×2 (10:57→23:35)
[2016-11-30] MEDS: LISINOPRIL 5 MG TABLET (FP) PEG SCH (10:58)
[2016-11-30] MEDS: SYSTANE ULTRA EYE DROPS OU SCH ×2 (10:58→23:36)
[2016-11-30] MEDS: METOPROLOL TARTRATE 50 MG TABLET (FP) PEG SCH ×2 (10:59→23:35)
--- NOTE | 2016-11-30 11:46 | PN ---
Progress Note, CLASSIFIER - Note Progress Note: Selected Entries 11/28/16 11/28/16 11/28/16 12:55 15:27 23:11 Breakfast 0 Lunch 25% Supper 75% Temperature 11/29/16 11/29/16 11/29/16 02:00 06:00 10:10 Breakfast Lunch Supper Temperature 98.7 F 98.8 F 101.1 F H 11/29/16 11/29/16 11/29/16 11:52 15:13 17:10 Breakfast NPO Lunch NPO Supper Temperature 100.0 F H 97.5 F L 11/29/16 11/29/16 11/30/16 22:00 23:18 01:59 Breakfast Lunch Supper 50% Temperature 98.9 F 98.7 F 11/30/16 11/30/16 11/30/16 06:00 09:00 11:35 Breakfast NPO Lunch Supper Temperature 100.7 F H 98.9 F PEG inserted. TF initiated. Honey thick liquid was ordered to supplement PEG feedings. Tongue coated. Pt being treated for thrush. consider deferring PO,if possible, until pt is stronger and pulmonary status improves. Mouth care.
--- NOTE | 2016-11-30 11:55 | PN ---
GI Progress Note Subjective: GI Note: Fevers persist with rise in WBXC. CXR reveals pneumonia. He is coughing thick sputum. Tolerating PEG feedings. - Objective Vital Signs: Vital Signs Temperature 98.9 F 11/30/16 09:00 Pulse Rate 105 H 11/30/16 09:48 Respiratory Rate 20 11/30/16 09:00 Blood Pressure 112/60 11/30/16 09:00 O2 Sat by Pulse Oximetry (%) 94 L 11/30/16 09:48 Gastrointestinal Inspection: Yes: Other (PEG site cleansed with sterile saline and Bacitracin applied. No fluctuance.) ...Palpate: Yes: Other (nontender) Labs: CBC, BMP 11/30/16 06:00 11/30/16 06:00 INR, PTT INR 1.17 (0.82-1.09) H 11/27/16 06:45 Assessment/Plan Day 3 s/p PEG insertion. Receiving antibiotics for pneumonia. Continue feedings.
[2016-11-30 12:30] LABS: PLATELET ESTIMATE ADEQUATE (NORMAL)
--- NOTE | 2016-11-30 12:54 | PN ---
Progress Note, Physician History of Present Illness: 81 year old man with a history of HTN, HLD, COPD, CVA, AAA admitted with abdominal discomfort and constipation concerning for SBO. Pt seen and examined today in nad. He states that he had multiple small BM's yesterday and overnight. denies any current abd pain. denies chest pain, sob, palpitations. no pnd, orthopnea, or LE edema. NG tube in place. PMH LE angio 02/21/2015 Dr. 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 DCB 08/10/2014 Dr Alcazar PCI LCx 09/20/2014 Dr Alcazar Medical History Reviewed Condition Date Treating Physician Comments Claudication, intermittent HTN Hyperlipidemia TIA/CVA - Current Medication List Current Medications: Active Medications Acetaminophen (Tylenol Oral Solution -) 650 mg GT Q6H PRN PRN Reason: FEVER OR PAIN Last Admin: 11/30/16 08:47 Dose: 650 mg Amlodipine Besylate (Norvasc -) 10 mg PEG DAILY [facility] Last Admin: 11/30/16 10:57 Dose: 10 mg Arformoterol Tartrate (Brovana (Restricted To Pulmonology/Resp) -) 1 amp NEB BID [facility] Last Admin: 11/30/16 09:48 Dose: 1 amp Bacitracin (Bacitracin -) 1 applic TP BID [facility] Stop: 12/02/16 10:01 Last Admin: 11/30/16 10:56 Dose: 1 applic Clotrimazole (Mycelex Miri's -) 10 mg PO 5XD [facility] Last Admin: 11/30/16 10:58 Dose: 10 mg Docusate Sodium (Colace Liquid -) 100 mg GT BID [facility] Last Admin: 11/30/16 10:57 Dose: 100 mg Piperacillin Sod/Tazobactam (Sod 3.375 gm/ Dextrose) 50 mls @ 100 mls/hr IVPB Q8H-IV [facility] PRN Reason: Protocol Last Admin: 11/30/16 10:58 Dose: 100 mls/hr Insulin Aspart (Novolog Vial Sliding Scale -) 1 vial SQ BIDAC [facility] PRN Reason: Protocol Last Admin: 11/30/16 06:42 Dose: 2 units Lisinopril (Prinivil) 2.5 mg PEG DAILY [facility] Last Admin: 11/30/16 10:58 Dose: 2.5 mg Magnesium Oxide (Mag-Ox -) 400 mg PEG BID [facility] Last Admin: 11/30/16 10:57 Dose: 400 mg Metoclopramide HCl (Reglan Oral Solution -) 10 mg GT TIDAC PRN PRN Reason: NAUSEA AND/OR VOMITING Last Admin: 11/29/16 09:07 Dose: 10 mg Metoprolol Tartrate (Lopressor -) 50 mg PEG BID [facility] Last Admin: 11/30/16 10:59 Dose: 50 mg Mirtazapine (Remeron -) 15 mg PEG HS [facility] Last Admin: 11/29/16 22:17 Dose: 15 mg Systane Ultra Eye (Drops) 1 each OU BID [facility] Last Admin: 11/30/16 10:58 Dose: 1 each Travatan 0.004% Eye (Drops) 1 each OU HS [facility] Last Admin: 11/29/16 22:23 Dose: Not Given Ondansetron HCl (Zofran Injection) 8 mg IVPB Q6H PRN PRN Reason: NAUSEA AND/OR VOMITING Scopolamine HBr (Transderm-Scop -) 1 patch TD Q3D@1000 [facility] Last Admin: 11/28/16 15:26 Dose: 1 patch Senna (Senna -) 2 tab PO HS PRN PRN Reason: CONSTIPATION Tamsulosin HCl (Flomax -) 0.4 mg PO DAILY@0830 [facility] Last Admin: 11/30/16 08:51 Dose: 0.4 mg - Objective Vital Signs: Vital Signs Temperature 98.9 F 11/30/16 09:00 Pulse Rate 105 H 11/30/16 09:48 Respiratory Rate 20 11/30/16 09:00 Blood Pressure 112/60 11/30/16 09:00 O2 Sat by Pulse Oximetry (%) 94 L 11/30/16 09:48 Eyes: Yes: WNL, Conjunctiva Clear, EOM Intact HENT: Yes: WNL, Atraumatic, Normocephalic Neck: Yes: WNL, Supple, Trachea Midline Cardiovascular: Yes: WNL, Regular Rate and Rhythm Respiratory: Yes: WNL, Regular, CTA Bilaterally Gastrointestinal: Yes: WNL, Normal Bowel Sounds Genitourinary: Yes: WNL Musculoskeletal: Yes: WNL Extremities: Yes: WNL Edema: No Integumentary: Yes: WNL Neurological: Yes: WNL, Alert, Oriented ...Motor Strength: WNL Psychiatric: Yes: WNL Labs: CBC, BMP 11/30/16 06:00 11/30/16 06:00 INR, PTT INR 1.17 (0.82-1.09) H 11/27/16 06:45 Assessment/Plan - Problems (1) Diastolic CHF Assessment/Plan: Continue present medications (amlodipine; lisinopril;metoprolol). Continue physical rehabilitation. P for PEG placement today. Code(s): I50.30 - UNSPECIFIED DIASTOLIC (CONGESTIVE) HEART FAILURE (2) Hyperlipidemia Assessment/Plan: On atorvastatin; keep LDL cholesterol < 70 mg/dL. Code(s): E78.5 - HYPERLIPIDEMIA, UNSPECIFIED (3) PSVT (paroxysmal supraventricular tachycardia) Assessment/Plan: On metoprolol. Maintain electrolytes WNL. Maintain hydration. Code(s): I47.1 - SUPRAVENTRICULAR TACHYCARDIA (4) SBO (small bowel obstruction) Assessment/Plan: Nontender abdomen. f/u with surgeon. Increase physical rehabilitation. For PEG placement today. Code(s): K56.69 - OTHER INTESTINAL OBSTRUCTION (5) Small bowel mass Code(s): K63.89 - OTHER SPECIFIED DISEASES OF INTESTINE (6) HTN (hypertension) Assessment/Plan: elevated BP. On metoprolol; can change to ER for better 24 hour coverage and compliance. On amlodipine; increased to 10 mg daily; BP is now better-controlled. Started lisinopril 2.5 mg daily; may increase as required for HTN, CHF. Code(s): I10 - ESSENTIAL (PRIMARY) HYPERTENSION (7) Weakness Code(s): R53.1 - WEAKNESS (8) Hypothyroid Assessment/Plan: decreased TSH; free T4 mildly elevated. Code(s): E03.9 - HYPOTHYROIDISM, UNSPECIFIED (9) Hypokalemia Assessment/Plan: Keep K+ 4-4.5 (hx PSVT); Keep Mg 2-2.3 (on MgOx). Keep Po4 2.5-3.5. Added lisinopril for HTN, DM. Code(s): E87.6 - HYPOKALEMIA (10) Hyperglycemia Assessment/Plan: HGBA1c 7.3 Added ACEI for HTN, ?DM, Code(s): R73.9 - HYPERGLYCEMIA, UNSPECIFIED (11) Depression Assessment/Plan: Agree with addition of antidepressant (started, as per pt's daughter). 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 From a cardiac standpoint, there are no absolute contraindications for Mr. Haddad to undergo PEG tube insertion, which is to be done today. Code(s): R64 - CACHEXIA
--- NOTE | 2016-11-30 14:12 | PN ---
Progress Note, Physician History of Present Illness: Awake, weak appearing Denies chest pain/ dyspnea/ cough Temps down Cultures pending Breathing non-labored - Current Medication List Current Medications: Active Medications Acetaminophen (Tylenol Oral Solution -) 650 mg GT Q6H PRN PRN Reason: FEVER OR PAIN Last Admin: 11/30/16 08:47 Dose: 650 mg Amlodipine Besylate (Norvasc -) 10 mg PEG DAILY [facility] Last Admin: 11/30/16 10:57 Dose: 10 mg Arformoterol Tartrate (Brovana (Restricted To Pulmonology/Resp) -) 1 amp NEB BID [facility] Last Admin: 11/30/16 09:48 Dose: 1 amp Bacitracin (Bacitracin -) 1 applic TP BID [facility] Stop: 12/02/16 10:01 Last Admin: 11/30/16 10:56 Dose: 1 applic Clotrimazole (Mycelex Miri's -) 10 mg PO 5XD [facility] Last Admin: 11/30/16 10:58 Dose: 10 mg Docusate Sodium (Colace Liquid -) 100 mg GT BID [facility] Last Admin: 11/30/16 10:57 Dose: 100 mg Piperacillin Sod/Tazobactam (Sod 3.375 gm/ Dextrose) 50 mls @ 100 mls/hr IVPB Q8H-IV [facility] PRN Reason: Protocol Last Admin: 11/30/16 10:58 Dose: 100 mls/hr Insulin Aspart (Novolog Vial Sliding Scale -) 1 vial SQ BIDAC [facility] PRN Reason: Protocol Last Admin: 11/30/16 06:42 Dose: 2 units Lisinopril (Prinivil) 2.5 mg PEG DAILY [facility] Last Admin: 11/30/16 10:58 Dose: 2.5 mg Magnesium Oxide (Mag-Ox -) 400 mg PEG BID [facility] Last Admin: 11/30/16 10:57 Dose: 400 mg Metoclopramide HCl (Reglan Oral Solution -) 10 mg GT TIDAC PRN PRN Reason: NAUSEA AND/OR VOMITING Last Admin: 11/29/16 09:07 Dose: 10 mg Metoprolol Tartrate (Lopressor -) 50 mg PEG BID [facility] Last Admin: 11/30/16 10:59 Dose: 50 mg Mirtazapine (Remeron -) 15 mg PEG HS [facility] Last Admin: 11/29/16 22:17 Dose: 15 mg Systane Ultra Eye (Drops) 1 each OU BID [facility] Last Admin: 11/30/16 10:58 Dose: 1 each Travatan 0.004% Eye (Drops) 1 each OU HS [facility] Last Admin: 11/29/16 22:23 Dose: Not Given Ondansetron HCl (Zofran Injection) 8 mg IVPB Q6H PRN PRN Reason: NAUSEA AND/OR VOMITING Scopolamine HBr (Transderm-Scop -) 1 patch TD Q3D@1000 [facility] Last Admin: 11/28/16 15:26 Dose: 1 patch Senna (Senna -) 2 tab PO HS PRN PRN Reason: CONSTIPATION Tamsulosin HCl (Flomax -) 0.4 mg PO DAILY@0830 [facility] Last Admin: 11/30/16 08:51 Dose: 0.4 mg - Objective Vital Signs: Vital Signs Temperature 98.3 F 11/30/16 14:00 Pulse Rate 88 11/30/16 14:00 Respiratory Rate 20 11/30/16 14:00 Blood Pressure 115/60 11/30/16 14:00 O2 Sat by Pulse Oximetry (%) 94 L 11/30/16 09:48 Constitutional: Yes: No Distress, Cachectic Cardiovascular: Yes: Regular Rate and Rhythm, S1, S2 Respiratory: Yes: Diminished Gastrointestinal: Yes: Normal Bowel Sounds, Soft. No: Tenderness Labs: CBC, BMP 11/30/16 06:00 11/30/16 06:00 INR, PTT INR 1.17 (0.82-1.09) H 11/27/16 06:45 Assessment/Plan Fever/ vomiting/ cough- possible aspiration S/P klebseilla bacteremia/ sepsis S/P exploratory laparotomy/ bowel resection Leukocytosis Await c/s Empiric coverage aspiration/ HCAP with zosyn
--- NOTE | 2016-11-30 15:59 | PN ---
GI Progress Note Subjective: Patient sitting up in chair, no distress Mr. Haddad' says that he complains of pain near the G-Tube site - Objective Vital Signs: Vital Signs Temperature 98.3 F 11/30/16 14:00 Pulse Rate 88 11/30/16 14:00 Respiratory Rate 20 11/30/16 14:00 Blood Pressure 115/60 11/30/16 14:00 O2 Sat by Pulse Oximetry (%) 94 L 11/30/16 09:48 Constitutional: Calm Eyes: No: Sclera Icterus Cardiovascular: Yes: Regular Rate and Rhythm Respiratory: Yes: Diminished (at base b/l) Gastrointestinal Inspection: Yes: Scars, Other (G-Tube in LUQ, rotating freely, some TTP predominantly along medial border and cephalad border). No: Distention ...Auscultate: Yes: Normoactive Bowel Sounds ...Palpate: Yes: Tenderness (see above) Edema: No Labs: CBC, BMP 11/30/16 06:00 11/30/16 06:00 INR, PTT INR 1.17 (0.82-1.09) H 11/27/16 06:45 Assessment/Plan S/P PEG: Mild TTP at peg site. Abdominal exam is otherwise benign. Suspect leukocytosis secondary to aspireation PNA/Pneumonitis CT scan of the abdomen to assess PEG psition On ABx per ID
--- NOTE | 2016-11-30 19:35 | PN ---
Progress Note, Physician Chief Complaint: awake alert in bed NAD afebrile - Current Medication List Current Medications: Active Medications Acetaminophen (Tylenol Oral Solution -) 650 mg GT Q6H PRN PRN Reason: FEVER OR PAIN Last Admin: 11/30/16 08:47 Dose: 650 mg Amlodipine Besylate (Norvasc -) 10 mg PEG DAILY [facility] Last Admin: 11/30/16 10:57 Dose: 10 mg Arformoterol Tartrate (Brovana (Restricted To Pulmonology/Resp) -) 1 amp NEB BID [facility] Last Admin: 11/30/16 09:48 Dose: 1 amp Bacitracin (Bacitracin -) 1 applic TP BID [facility] Stop: 12/02/16 10:01 Last Admin: 11/30/16 10:56 Dose: 1 applic Clotrimazole (Mycelex Miri's -) 10 mg PO 5XD [facility] Last Admin: 11/30/16 18:03 Dose: 10 mg Docusate Sodium (Colace Liquid -) 100 mg GT BID [facility] Last Admin: 11/30/16 10:57 Dose: 100 mg Piperacillin Sod/Tazobactam (Sod 3.375 gm/ Dextrose) 50 mls @ 100 mls/hr IVPB Q8H-IV [facility] PRN Reason: Protocol Last Admin: 11/30/16 17:57 Dose: 100 mls/hr Insulin Aspart (Novolog Vial Sliding Scale -) 1 vial SQ BIDAC [facility] PRN Reason: Protocol Last Admin: 11/30/16 18:03 Dose: Not Given Lisinopril (Prinivil) 2.5 mg PEG DAILY [facility] Last Admin: 11/30/16 10:58 Dose: 2.5 mg Magnesium Oxide (Mag-Ox -) 400 mg PEG BID [facility] Last Admin: 11/30/16 10:57 Dose: 400 mg Metoclopramide HCl (Reglan Oral Solution -) 10 mg GT TIDAC PRN PRN Reason: NAUSEA AND/OR VOMITING Last Admin: 11/29/16 09:07 Dose: 10 mg Metoprolol Tartrate (Lopressor -) 50 mg PEG BID [facility] Last Admin: 11/30/16 10:59 Dose: 50 mg Mirtazapine (Remeron -) 15 mg PEG HS [facility] Last Admin: 11/29/16 22:17 Dose: 15 mg Systane Ultra Eye (Drops) 1 each OU BID [facility] Last Admin: 11/30/16 10:58 Dose: 1 each Travatan 0.004% Eye (Drops) 1 each OU HS [facility] Last Admin: 11/29/16 22:23 Dose: Not Given Ondansetron HCl (Zofran Injection) 8 mg IVPB Q6H PRN PRN Reason: NAUSEA AND/OR VOMITING Scopolamine HBr (Transderm-Scop -) 1 patch TD Q3D@1000 [facility] Last Admin: 11/28/16 15:26 Dose: 1 patch Senna (Senna -) 2 tab PO HS PRN PRN Reason: CONSTIPATION Tamsulosin HCl (Flomax -) 0.4 mg PO DAILY@0830 [facility] Last Admin: 11/30/16 08:51 Dose: 0.4 mg - Objective Vital Signs: Vital Signs Temperature 98.6 F 11/30/16 16:15 Pulse Rate 99 H 11/30/16 16:15 Respiratory Rate 20 11/30/16 16:15 Blood Pressure 139/72 11/30/16 16:15 O2 Sat by Pulse Oximetry (%) 94 L 11/30/16 09:48 Constitutional: Yes: No Distress, Calm Eyes: Yes: Conjunctiva Clear HENT: Yes: Atraumatic Neck: Yes: Supple Cardiovascular: Yes: Regular Rate and Rhythm Respiratory: Yes: Diminished Gastrointestinal: Yes: Soft. No: Tenderness Genitourinary: No: CVA Tenderness - Left, CVA Tenderness - Right, Hematuria Musculoskeletal: Yes: Joint Stiffness. No: Joint Swelling Extremities: No: Cold, Cool Edema: No Integumentary: No: Rash, Venous Stasis Changes Neurological: Yes: WNL, Alert. No: Oriented ...Motor Strength: WNL Psychiatric: Yes: WNL, Alert. No: Oriented, Agitated Labs: CBC, BMP 11/30/16 06:00 11/30/16 06:00 INR, PTT INR 1.17 (0.82-1.09) H 11/27/16 06:45 - ....Imaging Other: Report Reviewed Assessment/Plan Pt with Small Bowel Obstruction, s/p ex-lap/SB resection h/o: COPD HTN Hyperlipidemia CHF h/o CVA now with: Fever/ vomiting/ cough- possible aspiration s/p PEG S/P klebseilla bacteremia/ sepsis S/P exploratory laparotomy/ bowel resection Leukocytosis Await c/s Empiric coverage aspiration with zosyn continue previous meds DNR DNI prognosis guarded dw staff
[2016-11-30] MEDS: MIRTAZAPINE 15 MG TABLET (FP) PEG SCH (23:35)
[2016-11-30] MEDS: TRAVATAN 0.004% OU SCH (23:36)
[2016-11-30] MEDS: EYE OU SCH (23:36)
[2016-12-01] MEDS ORDERED: DEXTROSE 5%-WATER - 50 ML IVPB ONE ×3 (02:44→17:17)
[2016-12-01] MEDS ORDERED: PIPERACILLIN/TAZOBACTAM 3.375 GM VIAL IVPB ONE ×3 (02:44→17:17)
[2016-12-01] MEDS: PIPERACILLIN/TAZOB 3.375 GM 3.375 GM in DEXTROSE 5%-WATER - 50 ML IVPB SCH ×3 (03:00→17:27)
[2016-12-01] MEDS: CLOTRIMAZOLE 10 MG TROCHE (FP) PO SCH ×5 (06:55→21:38)
[2016-12-01] MEDS: INSULIN SLIDING SCALE (NOVOLOG) 1 VIAL SQ SCH ×2 (06:57→16:35)
[2016-12-01 07:41] LABS: BASOPHIL 0.3 % (0-2.0); EOSINOPHIL 0.5 % (0-4.5); MCH 27.3 pg (25.7-33.7); MCHC 32.7 g/dl (32.0-35.9); MEAN CELL VOLUME 83.6 fl (80-96); MEAN PLT VOLUME 7.9 fl (7.5-11.1); NEUTROPHILS 81.5 % (42.8-82.8); PLATELET COUNT 236 K/MM3 (134-434); RDW 14.7 % (11.9-15.9); WHITE BLOOD COUNT 17.9 K/mm3 (4.0-10.0)
[2016-12-01 07:48] LABS: ALBUMIN 2.1 g/dl (3.4-5.0); ANION GAP 7 (8-16); BILIRUBIN,TOTAL 0.9 mg/dL (0.2-1.0); CALCIUM 9.4 mg/dL (8.5-10.1); CO2 34 mmol/L (21-32); CREATININE 0.6 mg/dL (0.7-1.3); GLUCOSE,RANDOM 135 mg/dL (74-106); SGPT/ALT 20 U/L (12-78); TOT PROT 5.9 g/dl (6.4-8.2)
[2016-12-01 07:49] LABS: ALK PHOS 105 U/L (45-117)
[2016-12-01 08:14] LABS: SGOT/AST 26 U/L (15-37)
--- NOTE | 2016-12-01 09:15 | PN ---
Physical Exam: SUBJECTIVE: Patient seen and examined. Alert and communicating. Still coughing but suctioning himself. Had a CT scan w/ o contrast of abdomen yesterday, showed bilateral lobar consolidation (L lung base and middle and lower lobes on R) with PEG tube is in the body of the stomach. Is scheduled for another CT scan today. Patient's nurse worried about aspiration on oral feeds since he is still coughing. OBJECTIVE: Vital Signs Period Temp Pulse Resp BP Sys/Hernandez Pulse Ox Last 24 Hr 98.3 F-99.8 F 88-105 20-20 115-146/60-77 94-96 GENERAL: The patient is awake, alert, oriented. EYES: Sclera anicteric, conjunctiva clear. LUNGS: Breath sounds reduced bilaterally HEART: S1, S2, ? bruit ABDOMEN: Soft,PEG tube in place, abdominal binder on, bowel sounds present,mild generalized tenderness, tympanitiic . EXTREMITIES: warm, no edema. Laboratory Results - last 24 hr 11/30/16 11/30/16 12/01/16 06:00 17:28 06:00 WBC 24.3 H D 17.9 H RBC 4.35 4.07 Hgb 11.9 11.1 L Hct 36.0 34.0 L MCV 82.8 83.6 MCH 27.3 27.3 MCHC 32.9 32.7 RDW 14.6 14.7 Plt Count 225 236 MPV 7.7 7.9 Neutrophils % 82.0 81.5 Lymphocytes % 14.0 9.7 D Monocytes % 4.0 8.0 D Eosinophils % 0.5 Basophils % 0.3 Differential Comment Manual diff done Platelet Estimate Adequate Sodium Potassium Chloride Carbon Dioxide Anion Gap BUN Creatinine Creat Clearance w eGFR POC Glucometer 138 Random Glucose Calcium Total Bilirubin AST ALT Alkaline Phosphatase Total Protein Albumin 12/01/16 12/01/16 06:00 06:56 WBC RBC Hgb Hct MCV MCH MCHC RDW Plt Count MPV Neutrophils % Lymphocytes % Monocytes % Eosinophils % Basophils % Differential Comment Platelet Estimate Sodium 141 Potassium 4.3 Chloride 100 Carbon Dioxide 34 H Anion Gap 7 L BUN 13 Creatinine 0.6 L D Creat Clearance w eGFR > 60 POC Glucometer 143 Random Glucose 135 H Calcium 9.4 Total Bilirubin 0.9 AST 26 D ALT 20 Alkaline Phosphatase 105 Total Protein 5.9 L Albumin 2.1 L Active Medications Generic Name Dose Route Start Last Admin Trade Name Freq PRN Reason Stop Dose Admin Acetaminophen 650 mg 11/28/16 12:59 11/30/16 08:47 Tylenol Oral Solution - GT 650 mg Q6H PRN Administration FEVER OR PAIN Amlodipine Besylate 10 mg 11/28/16 12:01 11/30/16 10:57 Norvasc - PEG 10 mg DAILY [facility] Administration Arformoterol Tartrate 1 amp 11/29/16 11:00 11/30/16 22:30 Broroyala (Restricted To Pulmonology/Resp) - NEB 1 amp BID [facility] Administration Bacitracin 1 applic 11/27/16 22:00 11/30/16 23:36 Bacitracin - TP 12/02/16 10:01 1 applic BID [facility] Administration Clotrimazole 10 mg 11/29/16 14:00 12/01/16 06:55 Mycelex Miri's - PO 10 mg 5XD [facility] Administration Docusate Sodium 100 mg 11/28/16 12:51 11/30/16 23:35 Colace Liquid - GT 100 mg BID [facility] Administration Piperacillin Sod/Tazobactam 50 mls @ 100 mls/hr 11/29/16 12:30 12/01/16 03:00 Sod 3.375 gm/ Dextrose IVPB 100 mls/hr Q8H-IV [facility] Administration Protocol Insulin Aspart 1 vial 11/07/16 07:00 12/01/16 06:57 Novolog Vial Sliding Scale - SQ Not Given BIDAC MO[facility] Protocol Lisinopril 2.5 mg 11/28/16 12:01 11/30/16 10:58 Prinivil PEG 2.5 mg DAILY [facility] Administration Magnesium Oxide 400 mg 11/28/16 12:01 11/30/16 23:35 Mag-Ox - PEG 400 mg BID [facility] Administration Metoclopramide HCl 10 mg 11/28/16 12:58 11/29/16 09:07 Reglan Oral Solution - GT 10 mg TIDAC PRN Administration NAUSEA AND/OR VOMITING Metoprolol Tartrate 50 mg 11/28/16 12:00 11/30/16 23:35 Lopressor - PEG 50 mg BID [facility] Administration Mirtazapine 15 mg 11/28/16 12:01 11/30/16 23:35 Remeron - PEG 15 mg HS [facility] Administration Systane Ultra Eye 1 each 11/10/16 20:00 11/30/16 23:36 Drops OU 1 each BID [facility] Administration Travatan 0.004% Eye 1 each 11/10/16 20:15 11/30/16 23:36 Drops OU Not Given HS [facility] Ondansetron HCl 8 mg 11/10/16 19:47 Zofran Injection IVPB Q6H PRN NAUSEA AND/OR VOMITING Scopolamine HBr 1 patch 11/28/16 15:00 11/28/16 15:26 Transderm-Scop - TD 1 patch Q3D@1000 [facility] Administration Senna 2 tab 11/24/16 16:49 Senna - PO HS PRN CONSTIPATION Tamsulosin HCl 0.4 mg 11/13/16 08:30 11/30/16 08:51 Flomax - PO 0.4 mg DAILY@0830 [facility] Administration ASSESSMENT/PLAN: Post PEG tube insertion, tolerating tube feeds Discuss oral feeds with attending. Visit type - Emergency Visit Emergency Visit: No - New Patient This patient is new to me today: No - Critical Care Critical Care patient: No - Discharge Referral Referred to [facility] No
--- NOTE | 2016-12-01 09:27 | PN ---
Progress Note, Physician History of Present Illness: Awake, alert + cough Breathing non-labored Temps, WBC improved - Current Medication List Current Medications: Active Medications Acetaminophen (Tylenol Oral Solution -) 650 mg GT Q6H PRN PRN Reason: FEVER OR PAIN Last Admin: 11/30/16 08:47 Dose: 650 mg Amlodipine Besylate (Norvasc -) 10 mg PEG DAILY [facility] Last Admin: 11/30/16 10:57 Dose: 10 mg Arformoterol Tartrate (Brovana (Restricted To Pulmonology/Resp) -) 1 amp NEB BID [facility] Last Admin: 11/30/16 22:30 Dose: 1 amp Bacitracin (Bacitracin -) 1 applic TP BID [facility] Stop: 12/02/16 10:01 Last Admin: 11/30/16 23:36 Dose: 1 applic Clotrimazole (Mycelex Miri's -) 10 mg PO 5XD [facility] Last Admin: 12/01/16 06:55 Dose: 10 mg Docusate Sodium (Colace Liquid -) 100 mg GT BID [facility] Last Admin: 11/30/16 23:35 Dose: 100 mg Piperacillin Sod/Tazobactam (Sod 3.375 gm/ Dextrose) 50 mls @ 100 mls/hr IVPB Q8H-IV [facility] PRN Reason: Protocol Last Admin: 12/01/16 03:00 Dose: 100 mls/hr Insulin Aspart (Novolog Vial Sliding Scale -) 1 vial SQ BIDAC [facility] PRN Reason: Protocol Last Admin: 12/01/16 06:57 Dose: Not Given Lisinopril (Prinivil) 2.5 mg PEG DAILY [facility] Last Admin: 11/30/16 10:58 Dose: 2.5 mg Magnesium Oxide (Mag-Ox -) 400 mg PEG BID [facility] Last Admin: 11/30/16 23:35 Dose: 400 mg Metoclopramide HCl (Reglan Oral Solution -) 10 mg GT TIDAC PRN PRN Reason: NAUSEA AND/OR VOMITING Last Admin: 11/29/16 09:07 Dose: 10 mg Metoprolol Tartrate (Lopressor -) 50 mg PEG BID [facility] Last Admin: 11/30/16 23:35 Dose: 50 mg Mirtazapine (Remeron -) 15 mg PEG HS [facility] Last Admin: 11/30/16 23:35 Dose: 15 mg Systane Ultra Eye (Drops) 1 each OU BID [facility] Last Admin: 11/30/16 23:36 Dose: 1 each Travatan 0.004% Eye (Drops) 1 each OU HS [facility] Last Admin: 11/30/16 23:36 Dose: Not Given Ondansetron HCl (Zofran Injection) 8 mg IVPB Q6H PRN PRN Reason: NAUSEA AND/OR VOMITING Scopolamine HBr (Transderm-Scop -) 1 patch TD Q3D@1000 [facility] Last Admin: 11/28/16 15:26 Dose: 1 patch Senna (Senna -) 2 tab PO HS PRN PRN Reason: CONSTIPATION Tamsulosin HCl (Flomax -) 0.4 mg PO DAILY@0830 [facility] Last Admin: 11/30/16 08:51 Dose: 0.4 mg - Objective Vital Signs: Vital Signs Temperature 99.4 F 12/01/16 06:24 Pulse Rate 103 H 12/01/16 06:24 Respiratory Rate 20 12/01/16 06:24 Blood Pressure 146/77 12/01/16 06:24 O2 Sat by Pulse Oximetry (%) 96 11/30/16 21:00 Constitutional: Yes: No Distress, Cachectic Cardiovascular: Yes: Regular Rate and Rhythm, S1, S2 Respiratory: Yes: Diminished Gastrointestinal: Yes: Normal Bowel Sounds, Soft. No: Tenderness Labs: CBC, BMP 12/01/16 06:00 12/01/16 06:00 INR, PTT INR 1.17 (0.82-1.09) H 11/27/16 06:45 Assessment/Plan Fever/ vomiting/ cough- possible aspiration S/P klebseilla bacteremia/ sepsis S/P exploratory laparotomy/ bowel resection Leukocytosis Await c/s Empiric coverage aspiration/ HCAP with zosyn
--- NOTE | 2016-12-01 09:28 | PN ---
Progress Note (short form) - Note Progress Note: Awake and alert. Clinically appears stable. Low grade temp. Reports some cough with sputum. No hemoptysis. Denies CP or SOB. CT : PEG in position / Multi-lobar patchy consolidation:infiltrate+atelectasis likely Intake & Output 11/28/16 11/29/16 11/30/16 12/01/16 23:59 23:59 23:59 23:59 Intake Total 835 614 5887 50 Output Total 700 1070 800 300 Balance -250 -770 740 -250 Last Vital Signs Temp Pulse Resp BP Pulse Ox 99.4 F 103 H 20 146/77 96 12/01/16 06:24 12/01/16 06:24 12/01/16 06:24 12/01/16 06:24 11/30/16 21:00 Active Medications Acetaminophen (Tylenol Oral Solution -) 650 mg GT Q6H PRN PRN Reason: FEVER OR PAIN Last Admin: 11/30/16 08:47 Dose: 650 mg Amlodipine Besylate (Norvasc -) 10 mg PEG DAILY [facility] Last Admin: 11/30/16 10:57 Dose: 10 mg Arformoterol Tartrate (Brovana (Restricted To Pulmonology/Resp) -) 1 amp NEB BID [facility] Last Admin: 11/30/16 22:30 Dose: 1 amp Bacitracin (Bacitracin -) 1 applic TP BID [facility] Stop: 12/02/16 10:01 Last Admin: 11/30/16 23:36 Dose: 1 applic Clotrimazole (Mycelex Miri's -) 10 mg PO 5XD [facility] Last Admin: 12/01/16 06:55 Dose: 10 mg Docusate Sodium (Colace Liquid -) 100 mg GT BID [facility] Last Admin: 11/30/16 23:35 Dose: 100 mg Piperacillin Sod/Tazobactam (Sod 3.375 gm/ Dextrose) 50 mls @ 100 mls/hr IVPB Q8H-IV [facility] PRN Reason: Protocol Last Admin: 12/01/16 03:00 Dose: 100 mls/hr Insulin Aspart (Novolog Vial Sliding Scale -) 1 vial SQ BIDAC [facility] PRN Reason: Protocol Last Admin: 12/01/16 06:57 Dose: Not Given Lisinopril (Prinivil) 2.5 mg PEG DAILY [facility] Last Admin: 11/30/16 10:58 Dose: 2.5 mg Magnesium Oxide (Mag-Ox -) 400 mg PEG BID [facility] Last Admin: 11/30/16 23:35 Dose: 400 mg Metoclopramide HCl (Reglan Oral Solution -) 10 mg GT TIDAC PRN PRN Reason: NAUSEA AND/OR VOMITING Last Admin: 11/29/16 09:07 Dose: 10 mg Metoprolol Tartrate (Lopressor -) 50 mg PEG BID [facility] Last Admin: 11/30/16 23:35 Dose: 50 mg Mirtazapine (Remeron -) 15 mg PEG HS [facility] Last Admin: 11/30/16 23:35 Dose: 15 mg Systane Ultra Eye (Drops) 1 each OU BID [facility] Last Admin: 11/30/16 23:36 Dose: 1 each Travatan 0.004% Eye (Drops) 1 each OU HS [facility] Last Admin: 11/30/16 23:36 Dose: Not Given Ondansetron HCl (Zofran Injection) 8 mg IVPB Q6H PRN PRN Reason: NAUSEA AND/OR VOMITING Scopolamine HBr (Transderm-Scop -) 1 patch TD Q3D@1000 [facility] Last Admin: 11/28/16 15:26 Dose: 1 patch Senna (Senna -) 2 tab PO HS PRN PRN Reason: CONSTIPATION Tamsulosin HCl (Flomax -) 0.4 mg PO DAILY@0830 [facility] Last Admin: 11/30/16 08:51 Dose: 0.4 mg OBJECTIVE: Gen: Awake, NAD at rest Heart: RRR Lung: Few basilar rhonchi Abd: soft, (+) BS, NT, (+) PEG Ext: no edema Laboratory Results - last 24 hr 11/29/16 11/29/16 11/30/16 14:10 17:55 06:00 WBC 24.3 H D RBC 4.35 Hgb 11.9 Hct 36.0 MCV 82.8 MCH 27.3 MCHC 32.9 RDW 14.6 Plt Count 225 MPV 7.7 Neutrophils % Y Lymphocytes % Y Sodium Potassium Chloride Carbon Dioxide Anion Gap BUN Creatinine Creat Clearance w eGFR POC Glucometer 284 Random Glucose Calcium Total Bilirubin AST ALT Alkaline Phosphatase Total Protein Albumin Urine Color Dkyellow Urine Appearance Clear Urine pH 5.0 Ur Specific [place] 1.015 Urine Protein 2+ H Urine Glucose (UA) Negative Urine Ketones Negative Urine Blood 3+ H Urine Nitrite Negative Urine Bilirubin Negative Urine Urobilinogen 4.0 e.u/dl Ur Leukocyte Esterase 2+ H Urine RBC 137 Urine WBC 32 Ur Epithelial Cells Rare Urine Bacteria Few Urine Mucus Rare 11/30/16 11/30/16 06:00 06:23 WBC RBC Hgb Hct MCV MCH MCHC RDW Plt Count MPV Neutrophils % Lymphocytes % Sodium 139 Potassium 3.8 Chloride 101 Carbon Dioxide 30 Anion Gap 8 BUN 16 D Creatinine 0.8 D Creat Clearance w eGFR > 60 POC Glucometer 163 Random Glucose 131 H Calcium 9.5 Total Bilirubin 1.1 H D AST 19 ALT 20 Alkaline Phosphatase 111 Total Protein 6.0 L Albumin 2.0 L Urine Color Urine Appearance Urine pH Ur Specific [place] Urine Protein Urine Glucose (UA) Urine Ketones Urine Blood Urine Nitrite Urine Bilirubin Urine Urobilinogen Ur Leukocyte Esterase Urine RBC Urine WBC Ur Epithelial Cells Urine Bacteria Urine Mucus ASSESSMENT AND PLAN: Multilobar HCAP / Aspiration Pneumonitis Pneumoatosis Intestinalis Small Bowel Obstruction s/p ex-lap/SB resection COPD HTN Hyperlipidemia CHF h/o CVA - ABX per ID - Need to increase ambulation/PT/Incentive Spirometry - Nutritional support - VTE prophylaxis - O2 as needed - BD TX Dr Dominguez
--- NOTE | 2016-12-01 09:37 | PN ---
Progress Note, Physician Chief Complaint: alert awake NAD, some cough noted consults reviewed - Current Medication List Current Medications: Active Medications Acetaminophen (Tylenol Oral Solution -) 650 mg GT Q6H PRN PRN Reason: FEVER OR PAIN Last Admin: 11/30/16 08:47 Dose: 650 mg Amlodipine Besylate (Norvasc -) 10 mg PEG DAILY [facility] Last Admin: 11/30/16 10:57 Dose: 10 mg Arformoterol Tartrate (Brovana (Restricted To Pulmonology/Resp) -) 1 amp NEB BID [facility] Last Admin: 11/30/16 22:30 Dose: 1 amp Bacitracin (Bacitracin -) 1 applic TP BID [facility] Stop: 12/02/16 10:01 Last Admin: 11/30/16 23:36 Dose: 1 applic Clotrimazole (Mycelex Miri's -) 10 mg PO 5XD [facility] Last Admin: 12/01/16 06:55 Dose: 10 mg Docusate Sodium (Colace Liquid -) 100 mg GT BID [facility] Last Admin: 11/30/16 23:35 Dose: 100 mg Piperacillin Sod/Tazobactam (Sod 3.375 gm/ Dextrose) 50 mls @ 100 mls/hr IVPB Q8H-IV [facility] PRN Reason: Protocol Last Admin: 12/01/16 03:00 Dose: 100 mls/hr Insulin Aspart (Novolog Vial Sliding Scale -) 1 vial SQ BIDAC [facility] PRN Reason: Protocol Last Admin: 12/01/16 06:57 Dose: Not Given Lisinopril (Prinivil) 2.5 mg PEG DAILY [facility] Last Admin: 11/30/16 10:58 Dose: 2.5 mg Magnesium Oxide (Mag-Ox -) 400 mg PEG BID [facility] Last Admin: 11/30/16 23:35 Dose: 400 mg Metoclopramide HCl (Reglan Oral Solution -) 10 mg GT TIDAC PRN PRN Reason: NAUSEA AND/OR VOMITING Last Admin: 11/29/16 09:07 Dose: 10 mg Metoprolol Tartrate (Lopressor -) 50 mg PEG BID [facility] Last Admin: 11/30/16 23:35 Dose: 50 mg Mirtazapine (Remeron -) 15 mg PEG HS [facility] Last Admin: 11/30/16 23:35 Dose: 15 mg Systane Ultra Eye (Drops) 1 each OU BID [facility] Last Admin: 11/30/16 23:36 Dose: 1 each Travatan 0.004% Eye (Drops) 1 each OU HS [facility] Last Admin: 11/30/16 23:36 Dose: Not Given Ondansetron HCl (Zofran Injection) 8 mg IVPB Q6H PRN PRN Reason: NAUSEA AND/OR VOMITING Scopolamine HBr (Transderm-Scop -) 1 patch TD Q3D@1000 [facility] Last Admin: 11/28/16 15:26 Dose: 1 patch Senna (Senna -) 2 tab PO HS PRN PRN Reason: CONSTIPATION Tamsulosin HCl (Flomax -) 0.4 mg PO DAILY@0830 [facility] Last Admin: 11/30/16 08:51 Dose: 0.4 mg - Objective Vital Signs: Vital Signs Temperature 99.4 F 12/01/16 06:24 Pulse Rate 103 H 12/01/16 06:24 Respiratory Rate 20 12/01/16 06:24 Blood Pressure 146/77 12/01/16 06:24 O2 Sat by Pulse Oximetry (%) 96 11/30/16 21:00 Constitutional: Yes: No Distress, Calm Eyes: Yes: Conjunctiva Clear HENT: Yes: Atraumatic Neck: Yes: Supple Cardiovascular: Yes: Regular Rate and Rhythm Respiratory: Yes: Diminished Gastrointestinal: Yes: Soft. No: Tenderness Genitourinary: No: Hematuria Musculoskeletal: No: Joint Stiffness, Joint Swelling Extremities: No: Cold, Cool Edema: No Integumentary: No: Rash, Venous Stasis Changes Neurological: Yes: Alert. No: Oriented Psychiatric: Yes: Alert. No: Oriented, Agitated Labs: CBC, BMP 12/01/16 06:00 12/01/16 06:00 INR, PTT INR 1.17 (0.82-1.09) H 11/27/16 06:45 - ....Imaging Other: Report Reviewed Assessment/Plan Pt with Small Bowel Obstruction, s/p ex-lap/SB resection h/o: COPD HTN Hyperlipidemia CHF h/o CVA possible aspiration PNA, s/p PEG S/P klebseilla bacteremia/ sepsis S/P exploratory laparotomy/ bowel resection Leukocytosis Empiric coverage aspiration with zosyn with ID GI, pulm, cardio f/u continue previous meds DNR DNI prognosis guarded dw staff
[2016-12-01] MEDS: ACETAMINOPHEN 650 MG/20.3 ML ORAL SOLUTION (CUPS) GT PRN (10:53)
[2016-12-01] MEDS: MULTIVIT-MINERALS 236 ML ML GT SCH (10:53)
[2016-12-01] MEDS: TAMSULOSIN HCL 0.4 MG CAP.ER.24H (FP) PO SCH (10:54)
[2016-12-01] MEDS: BACITRACIN 15 GM TUBE TOPICAL OINTMENT TP SCH ×2 (10:54→21:36)
[2016-12-01] MEDS: MAGNESIUM OXIDE 400 MG TABLET (FP) PEG SCH ×2 (10:54→21:37)
[2016-12-01] MEDS: LISINOPRIL 5 MG TABLET (FP) PEG SCH (10:55)
[2016-12-01] MEDS: METOPROLOL TARTRATE 50 MG TABLET (FP) PEG SCH ×2 (10:55→21:37)
[2016-12-01] MEDS: HEPARIN NA (PORCINE) 5,000 UNITS/ML 1ML VIAL SQ SCH ×2 (10:55→21:36)
[2016-12-01] MEDS: ARFORMOTEROL TARTRATE 15 MCG/2 ML VIAL NEB SCH ×2 (10:55→22:00)
[2016-12-01] MEDS: amLODIPine BESYLATE 10 MG TABLET (FP) PEG SCH (10:55)
[2016-12-01] MEDS: DOCUSATE NA 100 MG/10 ML UNIT-DOSE CUPS GT SCH ×2 (10:56→21:36)
[2016-12-01] MEDS: SYSTANE ULTRA EYE DROPS OU SCH ×2 (11:06→21:37)
[2016-12-01] MEDS: SCOPOLAMINE HYDROBROMIDE 1 PATCH PATCH.TD72 TD SCH ×2 (11:06→14:07)
--- NOTE | 2016-12-01 11:26 | PN ---
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 Voice stronger and more euphonic. Attempted breakfast. Nursing reports signs of aspiratiion. Swallowing quite weak before PEG/cough/PNA Selected Entries 11/30/16 11/30/16 11/30/16 01:59 06:00 09:00 Breakfast Lunch Supper Temperature 98.7 F 100.7 F H 98.9 F 11/30/16 11/30/16 11/30/16 11:35 14:00 14:01 Breakfast NPO Lunch 25% Supper Temperature 98.3 F 11/30/16 11/30/16 11/30/16 16:15 18:30 22:00 Breakfast Lunch Supper 25% Temperature 98.6 F 99.8 F H 12/01/16 12/01/16 06:24 10:00 Breakfast Lunch Supper Temperature 99.4 F 99.3 F Laboratory Tests 11/27/16 11/28/16 11/29/16 06:45 06:00 06:00 WBC 7.3 20.2 H D 13.9 H D 11/30/16 12/01/16 06:00 06:00 WBC 24.3 H D 17.9 H Suggest holding all po trials for now, until pulmonary status improves.
[2016-12-01] MEDS ORDERED: PT OWN MED DRAWER 7, Y5N ONE ×2 (13:45→21:18)
--- NOTE | 2016-12-01 14:44 | PN ---
Progress Note (short form) - Note Progress Note: CT scan abdomen shows PEG to be in body of stomach CT scan chest reveals infiltrates likely the source of leukocytosis: On Abx per ID Keep head of bed elevated 35 degrees at all times. Consider nutrition eval to assess if bolus feeding while Mr. Haddad is sitting upright is an option
--- NOTE | 2016-12-01 15:48 | PN ---
Progress Note (short form) - Note Progress Note: GI NOte: Dr Ambrosio's note appreciated. Discussed case with Quita Massey whoh advised hat Adair be kept NPO. I explaind this ti Adair. He denies abdominal pain Abd: PEG site clean, bumper rotated Plan: Continue PEG feedings with head elevated but keep NPO Discussed case wit Dr Melgar.
[2016-12-01] MEDS: EYE OU SCH (21:37)
[2016-12-01] MEDS: MIRTAZAPINE 15 MG TABLET (FP) PEG SCH (21:37)
[2016-12-01] MEDS: TRAVATAN 0.004% OU SCH (21:37)
--- NOTE | 2016-12-02 00:08 | PN ---
Progress Note, Physician Chief Complaint: Pt alert; denies chest pain or dyspnea; no abdominal pain. Pt's daughter is at bedside. History of Present Illness: 81-year-old black male with no history of abdominal surgery presents to the emergency department complaining of periumbilical 6/10 sharp nonradiating intermittent discomfort with nausea no vomiting, fever, chills, chest pain, shortness of breath, flank pains, urinary symptoms. There are no alleviating or exacerbating factors. Last bowel movement 4 days ago. - Current Medication List Current Medications: Active Medications Acetaminophen (Tylenol Oral Solution -) 650 mg GT Q6H PRN PRN Reason: FEVER OR PAIN Last Admin: 12/01/16 10:53 Dose: 650 mg Amlodipine Besylate (Norvasc -) 10 mg PEG DAILY [facility] Last Admin: 12/01/16 10:55 Dose: 10 mg Arformoterol Tartrate (Brovana (Restricted To Pulmonology/Resp) -) 1 amp NEB BID [facility] Last Admin: 12/01/16 22:00 Dose: 1 amp Bacitracin (Bacitracin -) 1 applic TP BID [facility] Stop: 12/02/16 10:01 Last Admin: 12/01/16 21:36 Dose: 1 applic Clotrimazole (Mycelex Miri's -) 10 mg PO 5XD [facility] Last Admin: 12/01/16 21:38 Dose: 10 mg Docusate Sodium (Colace Liquid -) 100 mg GT BID [facility] Last Admin: 12/01/16 21:36 Dose: Not Given Heparin Sodium (Porcine) (Heparin -) 5,000 unit SQ BID [facility] Last Admin: 12/01/16 21:36 Dose: 5,000 unit Piperacillin Sod/Tazobactam (Sod 3.375 gm/ Dextrose) 50 mls @ 100 mls/hr IVPB Q8H-IV [facility] PRN Reason: Protocol Last Admin: 12/01/16 17:27 Dose: 100 mls/hr Insulin Aspart (Novolog Vial Sliding Scale -) 1 vial SQ BIDAC [facility] PRN Reason: Protocol Last Admin: 12/01/16 16:35 Dose: Not Given Lisinopril (Prinivil) 2.5 mg PEG DAILY [facility] Last Admin: 12/01/16 10:55 Dose: 2.5 mg Magnesium Oxide (Mag-Ox -) 400 mg PEG BID [facility] Last Admin: 07/25/17 21:37 Dose: 400 mg Metoclopramide HCl (Reglan Oral Solution -) 10 mg GT TIDAC PRN PRN Reason: NAUSEA AND/OR VOMITING Last Admin: 11/29/16 09:07 Dose: 10 mg Metoprolol Tartrate (Lopressor -) 50 mg PEG BID [facility] Last Admin: 12/01/16 21:37 Dose: 50 mg Mirtazapine (Remeron -) 15 mg PEG HS [facility] Last Admin: 12/01/16 21:37 Dose: 15 mg Systane Ultra Eye (Drops) 1 each OU BID [facility] Last Admin: 12/01/16 21:37 Dose: Not Given Travatan 0.004% Eye (Drops) 1 each OU HS [facility] Last Admin: 12/01/16 21:37 Dose: Not Given Ondansetron HCl (Zofran Injection) 8 mg IVPB Q6H PRN PRN Reason: NAUSEA AND/OR VOMITING Scopolamine HBr (Transderm-Scop -) 1 patch TD Q3D@1000 [facility] Last Admin: 12/01/16 14:07 Dose: 1 patch Senna (Senna -) 2 tab PO HS PRN PRN Reason: CONSTIPATION Tamsulosin HCl (Flomax -) 0.4 mg PO DAILY@0830 [facility] Last Admin: 12/01/16 10:54 Dose: 0.4 mg - Objective Vital Signs: Vital Signs Temperature 98.1 F 12/01/16 22:00 Pulse Rate 94 H 12/01/16 22:00 Respiratory Rate 20 12/01/16 22:00 Blood Pressure 131/69 12/01/16 22:00 O2 Sat by Pulse Oximetry (%) 96 12/01/16 21:00 Constitutional: Yes: Calm Eyes: Yes: WNL HENT: Yes: WNL Neck: Yes: WNL Cardiovascular: Yes: Regular Rate and Rhythm Respiratory: Yes: Regular Gastrointestinal: Yes: Soft ...Rectal Exam: Yes: Deferred Genitourinary: No: Anuria Musculoskeletal: Yes: Muscle Weakness Extremities: Yes: Cool Edema: No Peripheral Pulses WNL: Yes Neurological: Yes: Alert, Weakness Psychiatric: Yes: Other Labs: CBC, BMP 12/01/16 06:00 12/01/16 06:00 INR, PTT INR 1.17 (0.82-1.09) H 11/27/16 06:45 Abnormal Lab Results 12/01/16 12/01/16 06:00 06:00 WBC 17.9 H Hgb 11.1 L Hct 34.0 L Carbon Dioxide 34 H Anion Gap 7 L Creatinine 0.6 L D Random Glucose 135 H Total Protein 5.9 L Albumin 2.1 L Problem List - Problems (1) Diastolic CHF Assessment/Plan: Continue present medications (amlodipine; lisinopril;metoprolol). Continue physical rehabilitation. Code(s): I50.30 - UNSPECIFIED DIASTOLIC (CONGESTIVE) HEART FAILURE (2) Hyperlipidemia Assessment/Plan: On atorvastatin; keep LDL cholesterol < 70 mg/dL. Code(s): E78.5 - HYPERLIPIDEMIA, UNSPECIFIED (3) PSVT (paroxysmal supraventricular tachycardia) Assessment/Plan: On metoprolol. Maintain electrolytes WNL. Maintain hydration. Code(s): I47.1 - SUPRAVENTRICULAR TACHYCARDIA (4) SBO (small bowel obstruction) Assessment/Plan: Nontender abdomen. f/u with surgeon. Increase physical rehabilitation. As noted by neurology epilepsy physician, pt NPO; on PEG feeding. Code(s): K56.69 - OTHER INTESTINAL OBSTRUCTION (5) Small bowel mass Code(s): K63.89 - OTHER SPECIFIED DISEASES OF INTESTINE (6) HTN (hypertension) Assessment/Plan: Better-controlled BP. On metoprolol; can change to ER for better 24 hour coverage and compliance ( once able to again take PO; on PEG presently). On amlodipine; increased to 10 mg daily; BP is now better-controlled. Started lisinopril 2.5 mg daily; may increase as required for HTN, CHF. Code(s): I10 - ESSENTIAL (PRIMARY) HYPERTENSION (7) Weakness Code(s): R53.1 - WEAKNESS (8) Hypothyroid Code(s): E03.9 - HYPOTHYROIDISM, UNSPECIFIED (9) Hypokalemia Assessment/Plan: Keep K+ 4-4.5 (hx PSVT); Keep Mg 2-2.3 (on MgOx). Keep Po4 2.5-3.5. Added lisinopril for HTN, DM. Code(s): E87.6 - HYPOKALEMIA (10) Hyperglycemia Assessment/Plan: HGBA1c 7.3 Added ACEI for HTN, ?DM, Code(s): R73.9 - HYPERGLYCEMIA, UNSPECIFIED (11) Depression Assessment/Plan: Agree with addition of antidepressant (started, as per pt's daughter). 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 Code(s): R64 - [place]
[2016-12-02] MEDS ORDERED: PIPERACILLIN/TAZOBACTAM 3.375 GM VIAL IVPB ONE ×3 (01:54→17:55)
[2016-12-02] MEDS ORDERED: DEXTROSE 5%-WATER - 50 ML IVPB ONE ×3 (01:54→17:56)
[2016-12-02] MEDS: PIPERACILLIN/TAZOB 3.375 GM 3.375 GM in DEXTROSE 5%-WATER - 50 ML IVPB SCH ×3 (02:00→18:02)
[2016-12-02] MEDS: CLOTRIMAZOLE 10 MG TROCHE (FP) PO SCH ×5 (06:21→22:46)
[2016-12-02] MEDS: INSULIN SLIDING SCALE (NOVOLOG) 1 VIAL SQ SCH ×2 (06:27→18:02)
[2016-12-02 07:20] LABS: BASOPHIL 0.4 % (0-2.0); EOSINOPHIL 1.1 % (0-4.5); MCH 27.1 pg (25.7-33.7); MCHC 32.5 g/dl (32.0-35.9); MEAN CELL VOLUME 83.4 fl (80-96); MEAN PLT VOLUME 7.9 fl (7.5-11.1); PLATELET COUNT 277 K/MM3 (134-434); RDW 14.4 % (11.9-15.9); WHITE BLOOD COUNT 15.6 K/mm3 (4.0-10.0)
[2016-12-02 07:50] LABS: ANION GAP 8 (8-16); CO2 33 mmol/L (21-32); CREATININE 0.6 mg/dL (0.7-1.3); GLUCOSE,RANDOM 124 mg/dL (74-106)
[2016-12-02] MEDS ORDERED: PT OWN MED DRAWER 7, Y5N ONE ×3 (10:53→21:01)
[2016-12-02] MEDS: amLODIPine BESYLATE 10 MG TABLET (FP) PEG SCH (10:57)
[2016-12-02] MEDS: LISINOPRIL 5 MG TABLET (FP) PEG SCH (10:57)
[2016-12-02] MEDS: BACITRACIN 15 GM TUBE TOPICAL OINTMENT TP SCH (10:58)
[2016-12-02] MEDS: METOPROLOL TARTRATE 50 MG TABLET (FP) PEG SCH ×2 (10:58→22:45)
[2016-12-02] MEDS: TAMSULOSIN HCL 0.4 MG CAP.ER.24H (FP) PO SCH (10:58)
[2016-12-02] MEDS: MULTIVIT-MINERALS 236 ML ML GT SCH (10:58)
[2016-12-02] MEDS: HEPARIN NA (PORCINE) 5,000 UNITS/ML 1ML VIAL SQ SCH ×2 (10:58→22:45)
[2016-12-02] MEDS: MAGNESIUM OXIDE 400 MG TABLET (FP) PEG SCH ×2 (10:58→22:45)
[2016-12-02] MEDS: METOCLOPRAMIDE HCL 5 MG/5 ML UNIT DOSE CUP GT PRN (10:59)
[2016-12-02] MEDS: SYSTANE ULTRA EYE DROPS OU SCH ×2 (10:59→22:46)
[2016-12-02] MEDS: DOCUSATE NA 100 MG/10 ML UNIT-DOSE CUPS GT SCH ×2 (11:00→22:45)
[2016-12-02] MEDS: ARFORMOTEROL TARTRATE 15 MCG/2 ML VIAL NEB SCH ×2 (11:24→22:46)
--- NOTE | 2016-12-02 11:28 | PN ---
Progress Note, Physician History of Present Illness: 81 year old man with a history of HTN, HLD, COPD, CVA, AAA admitted with abdominal discomfort and constipation concerning for SBO. Pt seen and examined today in nad. He states that he had multiple small BM's yesterday and overnight. denies any current abd pain. denies chest pain, sob, palpitations. no pnd, orthopnea, or LE edema. NG tube in place. PMH LE angio 02/21/2015 Dr. Alcazar Left EIA/[employer] DCB 08/10/2014 Dr Alcazar PCI LCx 09/20/2014 Dr Alcazar Medical History Reviewed Condition Date Treating Physician Comments Claudication, intermittent HTN Hyperlipidemia TIA/CVA - Current Medication List Current Medications: Active Medications Acetaminophen (Tylenol Oral Solution -) 650 mg GT Q6H PRN PRN Reason: FEVER OR PAIN Last Admin: 12/01/16 10:53 Dose: 650 mg Amlodipine Besylate (Norvasc -) 10 mg PEG DAILY [facility] Last Admin: 12/02/16 10:57 Dose: 10 mg Arformoterol Tartrate (Brovana (Restricted To Pulmonology/Resp) -) 1 amp NEB BID [facility] Last Admin: 12/01/16 22:00 Dose: 1 amp Clotrimazole (Mycelex Miri's -) 10 mg PO 5XD [facility] Last Admin: 12/02/16 10:57 Dose: 10 mg Docusate Sodium (Colace Liquid -) 100 mg GT BID [facility] Last Admin: 12/02/16 11:00 Dose: Not Given Heparin Sodium (Porcine) (Heparin -) 5,000 unit SQ BID [facility] Last Admin: 12/02/16 10:58 Dose: 5,000 unit Piperacillin Sod/Tazobactam (Sod 3.375 gm/ Dextrose) 50 mls @ 100 mls/hr IVPB Q8H-IV [facility] PRN Reason: Protocol Last Admin: 12/02/16 10:57 Dose: 100 mls/hr Insulin Aspart (Novolog Vial Sliding Scale -) 1 vial SQ BIDAC [facility] PRN Reason: Protocol Last Admin: 12/02/16 06:27 Dose: Not Given Lisinopril (Prinivil) 2.5 mg PEG DAILY [facility] Last Admin: 12/02/16 10:57 Dose: 2.5 mg Magnesium Oxide (Mag-Ox -) 400 mg PEG BID [facility] Last Admin: 12/02/16 10:58 Dose: 400 mg Metoclopramide HCl (Reglan Oral Solution -) 10 mg GT TIDAC PRN PRN Reason: NAUSEA AND/OR VOMITING Last Admin: 12/02/16 10:59 Dose: 10 mg Metoprolol Tartrate (Lopressor -) 50 mg PEG BID [facility] Last Admin: 12/02/16 10:58 Dose: 50 mg Mirtazapine (Remeron -) 15 mg PEG HS [facility] Last Admin: 12/01/16 21:37 Dose: 15 mg Systane Ultra Eye (Drops) 1 each OU BID [facility] Last Admin: 12/02/16 10:59 Dose: 1 each Travatan 0.004% Eye (Drops) 1 each OU HS [facility] Last Admin: 12/01/16 21:37 Dose: Not Given Ondansetron HCl (Zofran Injection) 8 mg IVPB Q6H PRN PRN Reason: NAUSEA AND/OR VOMITING Scopolamine HBr (Transderm-Scop -) 1 patch TD Q3D@1000 [facility] Last Admin: 12/01/16 14:07 Dose: 1 patch Senna (Senna -) 2 tab PO HS PRN PRN Reason: CONSTIPATION Tamsulosin HCl (Flomax -) 0.4 mg PO DAILY@0830 [facility] Last Admin: 12/02/16 10:58 Dose: 0.4 mg - Objective Vital Signs: Vital Signs Temperature 99.6 F 12/02/16 06:00 Pulse Rate 90 12/02/16 06:00 Respiratory Rate 20 12/02/16 06:00 Blood Pressure 140/70 12/02/16 06:00 O2 Sat by Pulse Oximetry (%) 96 12/01/16 21:00 Eyes: Yes: WNL, Conjunctiva Clear, EOM Intact HENT: Yes: WNL, Atraumatic, Normocephalic Neck: Yes: WNL, Supple, Trachea Midline Cardiovascular: Yes: WNL, Regular Rate and Rhythm Respiratory: Yes: WNL, Regular, CTA Bilaterally Gastrointestinal: Yes: WNL, Normal Bowel Sounds Genitourinary: Yes: WNL Musculoskeletal: Yes: WNL Extremities: Yes: WNL Edema: No Integumentary: Yes: WNL Neurological: Yes: WNL, Alert, Oriented ...Motor Strength: WNL Psychiatric: Yes: WNL Labs: CBC, BMP 12/02/16 06:00 12/02/16 06:00 INR, PTT INR 1.17 (0.82-1.09) H 11/27/16 06:45 Assessment/Plan - Problems (1) Diastolic CHF Assessment/Plan: Continue present medications (amlodipine; lisinopril;metoprolol). Continue physical rehabilitation. Code(s): I50.30 - UNSPECIFIED DIASTOLIC (CONGESTIVE) HEART FAILURE (2) Hyperlipidemia Assessment/Plan: On atorvastatin; keep LDL cholesterol < 70 mg/dL. Code(s): E78.5 - HYPERLIPIDEMIA, UNSPECIFIED (3) PSVT (paroxysmal supraventricular tachycardia) Assessment/Plan: On metoprolol. Maintain electrolytes WNL. Maintain hydration. Code(s): I47.1 - SUPRAVENTRICULAR TACHYCARDIA (4) SBO (small bowel obstruction) Assessment/Plan: Nontender abdomen. f/u with surgeon. Increase physical rehabilitation. As noted by tool and equipment rental clerk, pt NPO; on PEG feeding. Code(s): K56.69 - OTHER INTESTINAL OBSTRUCTION (5) Small bowel mass Code(s): K63.89 - OTHER SPECIFIED DISEASES OF INTESTINE (6) HTN (hypertension) Assessment/Plan: Better-controlled BP. On metoprolol; can change to ER for better 24 hour coverage and compliance ( once able to again take PO; on PEG presently). On amlodipine; increased to 10 mg daily; BP is now better-controlled. Started lisinopril 2.5 mg daily; may increase as required for HTN, CHF. Code(s): I10 - ESSENTIAL (PRIMARY) HYPERTENSION (7) Weakness Code(s): R53.1 - WEAKNESS (8) Hypothyroid Code(s): E03.9 - HYPOTHYROIDISM, UNSPECIFIED (9) Hypokalemia Assessment/Plan: Keep K+ 4-4.5 (hx PSVT); Keep Mg 2-2.3 (on MgOx). Keep Po4 2.5-3.5. Added lisinopril for HTN, DM. Code(s): E87.6 - HYPOKALEMIA (10) Hyperglycemia Assessment/Plan: HGBA1c 7.3 Added ACEI for HTN, ?DM, Code(s): R73.9 - HYPERGLYCEMIA, UNSPECIFIED (11) Depression Assessment/Plan: Agree with addition of antidepressant (started, as per pt's daughter). 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 Code(s): R64 - [place]
--- NOTE | 2016-12-02 12:12 | PN ---
Progress Note, Physician History of Present Illness: Pt with cough, improved, minimum white sputum Pt without N, V; pt has no abdominal pain Pt w/o fever, chills. Pt w/o CP, SOB, Palp. Pt with depressed mood-better. - Current Medication List Current Medications: Active Medications Acetaminophen (Tylenol Oral Solution -) 650 mg GT Q6H PRN PRN Reason: FEVER OR PAIN Last Admin: 12/01/16 10:53 Dose: 650 mg Amlodipine Besylate (Norvasc -) 10 mg PEG DAILY [facility] Last Admin: 12/02/16 10:57 Dose: 10 mg Arformoterol Tartrate (Brovana (Restricted To Pulmonology/Resp) -) 1 amp NEB BID [facility] Last Admin: 12/02/16 11:24 Dose: 1 amp Clotrimazole (Mycelex Miri's -) 10 mg PO 5XD [facility] Last Admin: 12/02/16 10:57 Dose: 10 mg Docusate Sodium (Colace Liquid -) 100 mg GT BID [facility] Last Admin: 12/02/16 11:00 Dose: Not Given Heparin Sodium (Porcine) (Heparin -) 5,000 unit SQ BID [facility] Last Admin: 12/02/16 10:58 Dose: 5,000 unit Piperacillin Sod/Tazobactam (Sod 3.375 gm/ Dextrose) 50 mls @ 100 mls/hr IVPB Q8H-IV [facility] PRN Reason: Protocol Last Admin: 12/02/16 10:57 Dose: 100 mls/hr Insulin Aspart (Novolog Vial Sliding Scale -) 1 vial SQ BIDAC [facility] PRN Reason: Protocol Last Admin: 12/02/16 06:27 Dose: Not Given Lisinopril (Prinivil) 2.5 mg PEG DAILY [facility] Last Admin: 12/02/16 10:57 Dose: 2.5 mg Magnesium Oxide (Mag-Ox -) 400 mg PEG BID [facility] Last Admin: 12/02/16 10:58 Dose: 400 mg Metoclopramide HCl (Reglan Oral Solution -) 10 mg GT TIDAC PRN PRN Reason: NAUSEA AND/OR VOMITING Last Admin: 12/02/16 10:59 Dose: 10 mg Metoprolol Tartrate (Lopressor -) 50 mg PEG BID [facility] Last Admin: 12/02/16 10:58 Dose: 50 mg Mirtazapine (Remeron -) 15 mg PEG HS [facility] Last Admin: 12/01/16 21:37 Dose: 15 mg Systane Ultra Eye (Drops) 1 each OU BID [facility] Last Admin: 12/02/16 10:59 Dose: 1 each Travatan 0.004% Eye (Drops) 1 each OU HS [facility] Last Admin: 12/01/16 21:37 Dose: Not Given Ondansetron HCl (Zofran Injection) 8 mg IVPB Q6H PRN PRN Reason: NAUSEA AND/OR VOMITING Scopolamine HBr (Transderm-Scop -) 1 patch TD Q3D@1000 [facility] Last Admin: 12/01/16 14:07 Dose: 1 patch Senna (Senna -) 2 tab PO HS PRN PRN Reason: CONSTIPATION Tamsulosin HCl (Flomax -) 0.4 mg PO DAILY@0830 [facility] Last Admin: 12/02/16 10:58 Dose: 0.4 mg - Objective Vital Signs: Vital Signs Temperature 99.6 F 12/02/16 06:00 Pulse Rate 94 H 12/02/16 11:24 Respiratory Rate 20 12/02/16 06:00 Blood Pressure 140/70 12/02/16 06:00 O2 Sat by Pulse Oximetry (%) 93 L 12/02/16 11:24 Constitutional: Yes: No Distress, Calm Cardiovascular: Yes: Regular Rate and Rhythm, S1, S2 Respiratory: Yes: Regular, Rhonchi (at bases), Other (coarse BS bilat) Gastrointestinal: Yes: Normal Bowel Sounds, Soft. No: Tenderness Edema: No Neurological: Yes: Alert, Oriented Labs: CBC, BMP 12/02/16 06:00 12/02/16 06:00 INR, PTT INR 1.17 (0.82-1.09) H 11/27/16 06:45 Problem List - Problems (1) Small bowel mass Code(s): K63.89 - OTHER SPECIFIED DISEASES OF INTESTINE (2) SBO (small bowel obstruction) Code(s): K56.69 - OTHER INTESTINAL OBSTRUCTION (3) Pneumatosis intestinalis Code(s): K63.89 - OTHER SPECIFIED DISEASES OF INTESTINE (4) CHF (congestive heart failure) Code(s): I50.9 - HEART FAILURE, UNSPECIFIED (5) CVA (cerebral infarction) Code(s): I63.9 - CEREBRAL INFARCTION, UNSPECIFIED (6) Chronic obstructive pulmonary disease Code(s): J44.9 - CHRONIC OBSTRUCTIVE PULMONARY DISEASE, UNSPECIFIED (7) Hyperlipidemia Code(s): E78.5 - HYPERLIPIDEMIA, UNSPECIFIED (8) Hypokalemia due to inadequate potassium intake Code(s): E87.6 - HYPOKALEMIA (9) Hypophosphatemia Code(s): E83.39 - OTHER DISORDERS OF PHOSPHORUS METABOLISM (10) HTN (hypertension) Code(s): I10 - ESSENTIAL (PRIMARY) HYPERTENSION (11) Hypomagnesemia Code(s): E83.42 - HYPOMAGNESEMIA (12) Bandemia Code(s): D72.825 - BANDEMIA (13) Pneumonia Assessment/Plan: secondary to aspiration Code(s): J18.9 - PNEUMONIA, UNSPECIFIED ORGANISM (14) Hypoalbuminemia Code(s): E88.09 - OTH DISORDERS OF PLASMA-PROTEIN METABOLISM, NEC (15) Elevated LFTs Code(s): R79.89 - OTHER SPECIFIED ABNORMAL FINDINGS OF BLOOD CHEMISTRY (16) Urinary retention Code(s): R33.9 - RETENTION OF URINE, UNSPECIFIED (17) Abdominal aneurysm Code(s): I71.4 - ABDOMINAL AORTIC ANEURYSM, WITHOUT RUPTURE (18) Depression Code(s): F32.9 - MAJOR DEPRESSIVE DISORDER, SINGLE EPISODE, UNSPECIFIED (19) Dysphagia Code(s): R13.10 - DYSPHAGIA, UNSPECIFIED Assessment/Plan GI and surgical f/u appreciated Pt was transferred from ICU to Telemetry to medical floor Pt removed NGT. Pt diet was advanced but has poor PO intake. Pt off TPN. Pt is s/p MBS, + for silent aspiration (diet was changed). Pt with Hx/o + BCX, LLL PNA, s/p IV abtx Pt wants his to make medical decisions if he cannot; both daughters agree with pt. All family's questions were answered. Pt is hemodynamically stable. Pt. is s/p left PICC Line placement; pt removed it. I encourage PO intake, OOBTC Started Remeron (dose was increased), MVI. Swallow evaluation appreciated. S/p PEG placement s/paspiratin PNA, pt improving; Abtx per ID AM labs. Prognosis: reserved. Case was d/w pt's nurse. .
--- NOTE | 2016-12-02 12:27 | PN ---
Progress Note, Physician History of Present Illness: OOB in chair More awake and alert Occasional cough No c/o abdominal pain Chavarria catheter in place - Current Medication List Current Medications: Active Medications Acetaminophen (Tylenol Oral Solution -) 650 mg GT Q6H PRN PRN Reason: FEVER OR PAIN Last Admin: 12/01/16 10:53 Dose: 650 mg Amlodipine Besylate (Norvasc -) 10 mg PEG DAILY [facility] Last Admin: 12/02/16 10:57 Dose: 10 mg Arformoterol Tartrate (Brovana (Restricted To Pulmonology/Resp) -) 1 amp NEB BID [facility] Last Admin: 12/02/16 11:24 Dose: 1 amp Clotrimazole (Mycelex Miri's -) 10 mg PO 5XD [facility] Last Admin: 12/02/16 10:57 Dose: 10 mg Docusate Sodium (Colace Liquid -) 100 mg GT BID [facility] Last Admin: 12/02/16 11:00 Dose: Not Given Heparin Sodium (Porcine) (Heparin -) 5,000 unit SQ BID [facility] Last Admin: 12/02/16 10:58 Dose: 5,000 unit Piperacillin Sod/Tazobactam (Sod 3.375 gm/ Dextrose) 50 mls @ 100 mls/hr IVPB Q8H-IV [facility] PRN Reason: Protocol Last Admin: 12/02/16 10:57 Dose: 100 mls/hr Insulin Aspart (Novolog Vial Sliding Scale -) 1 vial SQ BIDAC [facility] PRN Reason: Protocol Last Admin: 12/02/16 06:27 Dose: Not Given Lisinopril (Prinivil) 2.5 mg PEG DAILY [facility] Last Admin: 12/02/16 10:57 Dose: 2.5 mg Magnesium Oxide (Mag-Ox -) 400 mg PEG BID [facility] Last Admin: 12/02/16 10:58 Dose: 400 mg Metoclopramide HCl (Reglan Oral Solution -) 10 mg GT TIDAC PRN PRN Reason: NAUSEA AND/OR VOMITING Last Admin: 12/02/16 10:59 Dose: 10 mg Metoprolol Tartrate (Lopressor -) 50 mg PEG BID [facility] Last Admin: 12/02/16 10:58 Dose: 50 mg Mirtazapine (Remeron -) 15 mg PEG HS [facility] Last Admin: 12/01/16 21:37 Dose: 15 mg Systane Ultra Eye (Drops) 1 each OU BID [facility] Last Admin: 12/02/16 10:59 Dose: 1 each Travatan 0.004% Eye (Drops) 1 each OU HS [facility] Last Admin: 12/01/16 21:37 Dose: Not Given Ondansetron HCl (Zofran Injection) 8 mg IVPB Q6H PRN PRN Reason: NAUSEA AND/OR VOMITING Scopolamine HBr (Transderm-Scop -) 1 patch TD Q3D@1000 [facility] Last Admin: 12/01/16 14:07 Dose: 1 patch Senna (Senna -) 2 tab PO HS PRN PRN Reason: CONSTIPATION Tamsulosin HCl (Flomax -) 0.4 mg PO DAILY@0830 [facility] Last Admin: 12/02/16 10:58 Dose: 0.4 mg - Objective Vital Signs: Vital Signs Temperature 99.6 F 12/02/16 06:00 Pulse Rate 94 H 12/02/16 11:24 Respiratory Rate 20 12/02/16 06:00 Blood Pressure 140/70 12/02/16 06:00 O2 Sat by Pulse Oximetry (%) 93 L 12/02/16 11:24 Constitutional: Yes: No Distress Eyes: Yes: Conjunctiva Clear Cardiovascular: Yes: Regular Rate and Rhythm, S1, S2 Respiratory: Yes: CTA Bilaterally Gastrointestinal: Yes: Normal Bowel Sounds, Soft. 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
--- NOTE | 2016-12-02 14:52 | PN ---
Progress Note, VAN LOADER - Note Progress Note: Fever/ vomiting/ cough- possible aspiration/pneumonitis S/P [place] bacteremia/ sepsis Selected Entries 12/01/16 12/01/16 12/01/16 06:24 10:00 18:00 Temperature 99.4 F 99.3 F 99.1 F 12/01/16 12/02/16 22:00 06:00 Temperature 98.1 F 99.6 F Laboratory Tests 11/30/16 12/01/16 12/02/16 06:00 06:00 06:00 WBC 24.3 H D 17.9 H 15.6 H Reviewed [facility] nursing and GI. Suggest holding all po trials for now, until pulmonary status improves. If thrush is still suspected, consider further medical mgmt.
[2016-12-02] MEDS: ACETAMINOPHEN 650 MG/20.3 ML ORAL SOLUTION (CUPS) GT PRN (18:13)
[2016-12-02] MEDS: TRAVATAN 0.004% OU SCH (22:47)
[2016-12-02] MEDS: MIRTAZAPINE 15 MG TABLET (FP) PEG SCH (22:47)
[2016-12-02] MEDS: EYE OU SCH (22:47)
[2016-12-03] MEDS ORDERED: PIPERACILLIN/TAZOBACTAM 3.375 GM VIAL IVPB ONE ×3 (02:31→17:55)
[2016-12-03] MEDS ORDERED: DEXTROSE 5%-WATER - 50 ML IVPB ONE ×3 (02:31→17:55)
[2016-12-03] MEDS: PIPERACILLIN/TAZOB 3.375 GM 3.375 GM in DEXTROSE 5%-WATER - 50 ML IVPB SCH ×3 (02:47→18:02)
[2016-12-03] MEDS: CLOTRIMAZOLE 10 MG TROCHE (FP) PO SCH ×5 (06:23→21:10)
[2016-12-03] MEDS: INSULIN SLIDING SCALE (NOVOLOG) 1 VIAL SQ SCH ×2 (06:23→18:04)
[2016-12-03 08:24] LABS: MCH 27.1 pg (25.7-33.7); MCHC 32.6 g/dl (32.0-35.9); MEAN PLT VOLUME 8.4 fl (7.5-11.1); PLATELET COUNT 309 K/MM3 (134-434); RDW 14.7 % (11.9-15.9); WHITE BLOOD COUNT 14.2 K/mm3 (4.0-10.0)
[2016-12-03 09:14] LABS: ANION GAP 7 (8-16); CO2 31 mmol/L (21-32); CREATININE 0.6 mg/dL (0.7-1.3); GLUCOSE,RANDOM 131 mg/dL (74-106)
[2016-12-03] MEDS ORDERED: PT OWN MED DRAWER 7, Y5N ONE ×3 (09:18→14:45)
[2016-12-03] MEDS: HEPARIN NA (PORCINE) 5,000 UNITS/ML 1ML VIAL SQ SCH ×2 (09:27→21:10)
[2016-12-03] MEDS: TAMSULOSIN HCL 0.4 MG CAP.ER.24H (FP) PO SCH (09:27)
[2016-12-03] MEDS: MAGNESIUM OXIDE 400 MG TABLET (FP) PEG SCH ×2 (09:27→21:07)
[2016-12-03] MEDS: amLODIPine BESYLATE 10 MG TABLET (FP) PEG SCH (09:27)
[2016-12-03] MEDS: ACETAMINOPHEN 650 MG/20.3 ML ORAL SOLUTION (CUPS) GT PRN ×2 (09:27→18:10)
[2016-12-03] MEDS: METOPROLOL TARTRATE 50 MG TABLET (FP) PEG SCH ×2 (09:27→21:07)
[2016-12-03] MEDS: LISINOPRIL 5 MG TABLET (FP) PEG SCH (09:28)
[2016-12-03] MEDS: SYSTANE ULTRA EYE DROPS OU SCH ×2 (09:29→21:10)
[2016-12-03] MEDS: DOCUSATE NA 100 MG/10 ML UNIT-DOSE CUPS GT SCH ×2 (09:29→21:08)
[2016-12-03] MEDS: MULTIVIT-MINERALS 236 ML ML GT SCH (09:29)
--- NOTE | 2016-12-03 09:44 | PN ---
Progress Note (short form) - Note Progress Note: Awake and alert. Clinically appears stable. Cough is slightly better. No hemoptysis. Denies CP or SOB. Intake & Output 11/30/16 12/01/16 12/02/16 12/03/16 23:59 23:59 23:59 23:59 Intake Total 1540 1490 1190 1190 Output Total 800 1500 1400 900 Balance 740 -10 -210 290 Weight 113 lb 3.2 oz 111 lb 6.4 oz Last Vital Signs Temp Pulse Resp BP Pulse Ox 99.1 F 87 20 142/62 95 12/03/16 06:00 12/03/16 06:00 12/03/16 06:00 12/03/16 06:00 12/02/16 21:00 Active Medications Acetaminophen (Tylenol Oral Solution -) 650 mg GT Q6H PRN PRN Reason: FEVER OR PAIN Last Admin: 12/03/16 09:27 Dose: 650 mg Amlodipine Besylate (Norvasc -) 10 mg PEG DAILY [facility] Last Admin: 12/03/16 09:27 Dose: 10 mg Arformoterol Tartrate (Brovana (Restricted To Pulmonology/Resp) -) 1 amp NEB BID [facility] Last Admin: 12/02/16 22:46 Dose: 1 amp Clotrimazole (Mycelex Miri's -) 10 mg PO 5XD [facility] Last Admin: 12/03/16 09:27 Dose: 10 mg Docusate Sodium (Colace Liquid -) 100 mg GT BID [facility] Last Admin: 12/03/16 09:29 Dose: Not Given Heparin Sodium (Porcine) (Heparin -) 5,000 unit SQ BID [facility] Last Admin: 12/03/16 09:27 Dose: 5,000 unit Piperacillin Sod/Tazobactam (Sod 3.375 gm/ Dextrose) 50 mls @ 100 mls/hr IVPB Q8H-IV [facility] PRN Reason: Protocol Last Admin: 12/03/16 02:47 Dose: 100 mls/hr Insulin Aspart (Novolog Vial Sliding Scale -) 1 vial SQ BIDAC [facility] PRN Reason: Protocol Last Admin: 12/03/16 06:23 Dose: 2 units Lisinopril (Prinivil) 2.5 mg PEG DAILY [facility] Last Admin: 12/03/16 09:28 Dose: 2.5 mg Magnesium Oxide (Mag-Ox -) 400 mg PEG BID [facility] Last Admin: 12/03/16 09:27 Dose: 400 mg Metoclopramide HCl (Reglan Oral Solution -) 10 mg GT TIDAC PRN PRN Reason: NAUSEA AND/OR VOMITING Last Admin: 12/02/16 10:59 Dose: 10 mg Metoprolol Tartrate (Lopressor -) 50 mg PEG BID [facility] Last Admin: 12/03/16 09:27 Dose: 50 mg Mirtazapine (Remeron -) 15 mg PEG HS [facility] Last Admin: 12/02/16 22:47 Dose: 15 mg Systane Ultra Eye (Drops) 1 each OU BID [facility] Last Admin: 12/03/16 09:29 Dose: 1 each Travatan 0.004% Eye (Drops) 1 each OU HS [facility] Last Admin: 12/02/16 22:47 Dose: Not Given Ondansetron HCl (Zofran Injection) 8 mg IVPB Q6H PRN PRN Reason: NAUSEA AND/OR VOMITING Scopolamine HBr (Transderm-Scop -) 1 patch TD Q3D@1000 [facility] Last Admin: 12/01/16 14:07 Dose: 1 patch Senna (Senna -) 2 tab PO HS PRN PRN Reason: CONSTIPATION Tamsulosin HCl (Flomax -) 0.4 mg PO DAILY@0830 [facility] Last Admin: 12/03/16 09:27 Dose: 0.4 mg OBJECTIVE: Gen: Awake, NAD at rest Heart: RRR Lung: Few basilar rhonchi Abd: soft, (+) BS, NT, (+) PEG Ext: no edema Laboratory Results - last 24 hr 12/02/16 12/03/16 12/03/16 18:01 06:00 06:00 WBC 14.2 H RBC 3.91 L Hgb 10.6 L Hct 32.4 L MCV 83.0 MCH 27.1 MCHC 32.6 RDW 14.7 Plt Count 309 MPV 8.4 Sodium 143 Potassium 4.9 D Chloride 105 Carbon Dioxide 31 Anion Gap 7 L BUN 16 Creatinine 0.6 L POC Glucometer 149 Random Glucose 131 H Calcium 9.0 12/03/16 06:22 WBC RBC Hgb Hct MCV MCH MCHC RDW Plt Count MPV Sodium Potassium Chloride Carbon Dioxide Anion Gap BUN Creatinine POC Glucometer 162 Random Glucose Calcium ASSESSMENT AND PLAN: Multilobar HCAP / Aspiration Pneumonitis Pneumoatosis Intestinalis Small Bowel Obstruction s/p ex-lap/SB resection COPD HTN Hyperlipidemia CHF h/o CVA - ABX per ID - Increase ambulation/PT/Incentive Spirometry - Nutritional support - VTE prophylaxis - O2 as needed - BD TX Dr Dominguez
--- NOTE | 2016-12-03 09:46 | PN ---
Progress Note, Physician Chief Complaint: Pt alert; denies chest pain or dyspnea; no abdominal pain. Pt's daughter is at bedside. History of Present Illness: 81-year-old black male with no history of abdominal surgery presents to the emergency department complaining of periumbilical 6/10 sharp nonradiating intermittent discomfort with nausea no vomiting, fever, chills, chest pain, shortness of breath, flank pains, urinary symptoms. There are no alleviating or exacerbating factors. Last bowel movement 4 days ago. - Current Medication List Current Medications: Active Medications Acetaminophen (Tylenol Oral Solution -) 650 mg GT Q6H PRN PRN Reason: FEVER OR PAIN Last Admin: 12/03/16 09:27 Dose: 650 mg Amlodipine Besylate (Norvasc -) 10 mg PEG DAILY [facility] Last Admin: 12/03/16 09:27 Dose: 10 mg Arformoterol Tartrate (Brovana (Restricted To Pulmonology/Resp) -) 1 amp NEB BID [facility] Last Admin: 12/02/16 22:46 Dose: 1 amp Clotrimazole (Mycelex Miri's -) 10 mg PO 5XD [facility] Last Admin: 12/03/16 09:27 Dose: 10 mg Docusate Sodium (Colace Liquid -) 100 mg GT BID [facility] Last Admin: 12/03/16 09:29 Dose: Not Given Heparin Sodium (Porcine) (Heparin -) 5,000 unit SQ BID [facility] Last Admin: 12/03/16 09:27 Dose: 5,000 unit Piperacillin Sod/Tazobactam (Sod 3.375 gm/ Dextrose) 50 mls @ 100 mls/hr IVPB Q8H-IV [facility] PRN Reason: Protocol Last Admin: 12/03/16 02:47 Dose: 100 mls/hr Insulin Aspart (Novolog Vial Sliding Scale -) 1 vial SQ BIDAC [facility] PRN Reason: Protocol Last Admin: 12/03/16 06:23 Dose: 2 units Lisinopril (Prinivil) 2.5 mg PEG DAILY [facility] Last Admin: 12/03/16 09:28 Dose: 2.5 mg Magnesium Oxide (Mag-Ox -) 400 mg PEG BID [facility] Last Admin: 12/03/16 09:27 Dose: 400 mg Metoclopramide HCl (Reglan Oral Solution -) 10 mg GT TIDAC PRN PRN Reason: NAUSEA AND/OR VOMITING Last Admin: 12/02/16 10:59 Dose: 10 mg Metoprolol Tartrate (Lopressor -) 50 mg PEG BID [facility] Last Admin: 12/03/16 09:27 Dose: 50 mg Mirtazapine (Remeron -) 15 mg PEG HS [facility] Last Admin: 12/02/16 22:47 Dose: 15 mg Systane Ultra Eye (Drops) 1 each OU BID [facility] Last Admin: 12/03/16 09:29 Dose: 1 each Travatan 0.004% Eye (Drops) 1 each OU HS [facility] Last Admin: 12/02/16 22:47 Dose: Not Given Ondansetron HCl (Zofran Injection) 8 mg IVPB Q6H PRN PRN Reason: NAUSEA AND/OR VOMITING Scopolamine HBr (Transderm-Scop -) 1 patch TD Q3D@1000 [facility] Last Admin: 12/01/16 14:07 Dose: 1 patch Senna (Senna -) 2 tab PO HS PRN PRN Reason: CONSTIPATION Tamsulosin HCl (Flomax -) 0.4 mg PO DAILY@0830 [facility] Last Admin: 12/03/16 09:27 Dose: 0.4 mg - Objective Vital Signs: Vital Signs Temperature 99.1 F 12/03/16 06:00 Pulse Rate 87 12/03/16 06:00 Respiratory Rate 20 12/03/16 06:00 Blood Pressure 142/62 12/03/16 06:00 O2 Sat by Pulse Oximetry (%) 95 12/02/16 21:00 Constitutional: Yes: Calm Eyes: Yes: WNL HENT: Yes: WNL Neck: Yes: WNL Cardiovascular: Yes: Pulse Irregular Respiratory: Yes: Regular Gastrointestinal: Yes: Soft ...Rectal Exam: Yes: Deferred Genitourinary: No: Anuria Breast(s): Yes: WNL Musculoskeletal: Yes: Muscle Weakness Extremities: Yes: Cool Edema: No Peripheral Pulses WNL: Yes Integumentary: Yes: WNL Neurological: Yes: Weakness Psychiatric: Yes: Other Labs: CBC, BMP 12/03/16 06:00 12/03/16 06:00 INR, PTT INR 1.17 (0.82-1.09) H 11/27/16 06:45 Problem List - Problems (1) Diastolic CHF Assessment/Plan: Continue present medications (amlodipine; lisinopril;metoprolol). Continue physical rehabilitation. Code(s): I50.30 - UNSPECIFIED DIASTOLIC (CONGESTIVE) HEART FAILURE (2) Hyperlipidemia Assessment/Plan: On atorvastatin; keep LDL cholesterol < 70 mg/dL. Code(s): E78.5 - HYPERLIPIDEMIA, UNSPECIFIED (3) PSVT (paroxysmal supraventricular tachycardia) Assessment/Plan: On metoprolol. Maintain electrolytes WNL. Maintain hydration. Code(s): I47.1 - SUPRAVENTRICULAR TACHYCARDIA (4) SBO (small bowel obstruction) Assessment/Plan: Nontender abdomen. f/u with surgeon. Increase physical rehabilitation. As noted by cloth grader, pt NPO; on PEG feeding. Code(s): K56.69 - OTHER INTESTINAL OBSTRUCTION (5) Small bowel mass Code(s): K63.89 - OTHER SPECIFIED DISEASES OF INTESTINE (6) HTN (hypertension) Assessment/Plan: Better-controlled BP. On metoprolol; can change to ER for better 24 hour coverage and compliance ( once able to again take PO; on PEG presently). On amlodipine; increased to 10 mg daily; BP is now better-controlled. Started lisinopril 2.5 mg daily; may increase as required for HTN, CHF. Code(s): I10 - ESSENTIAL (PRIMARY) HYPERTENSION (7) Weakness Code(s): R53.1 - WEAKNESS (8) Hypothyroid Assessment/Plan: decreased TSH; free T4 mildly elevated. Code(s): E03.9 - HYPOTHYROIDISM, UNSPECIFIED (9) Hypokalemia Assessment/Plan: Keep K+ 4-4.5 (hx PSVT); Keep Mg 2-2.3 (on MgOx). Keep Po4 2.5-3.5. Added lisinopril for HTN, DM. 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
[2016-12-03] MEDS: ARFORMOTEROL TARTRATE 15 MCG/2 ML VIAL NEB SCH ×2 (11:15→21:18)
--- NOTE | 2016-12-03 11:43 | PN ---
Progress Note, Physician History of Present Illness: OOB in chair No focal complaint Denies chest pain/ dyspnea/ cough No c/o fever/ chills - Current Medication List Current Medications: Active Medications Acetaminophen (Tylenol Oral Solution -) 650 mg GT Q6H PRN PRN Reason: FEVER OR PAIN Last Admin: 12/03/16 09:27 Dose: 650 mg Amlodipine Besylate (Norvasc -) 10 mg PEG DAILY [facility] Last Admin: 12/03/16 09:27 Dose: 10 mg Arformoterol Tartrate (Brovana (Restricted To Pulmonology/Resp) -) 1 amp NEB BID [facility] Last Admin: 12/03/16 11:15 Dose: 1 amp Clotrimazole (Mycelex Miri's -) 10 mg PO 5XD [facility] Last Admin: 12/03/16 09:27 Dose: 10 mg Docusate Sodium (Colace Liquid -) 100 mg GT BID [facility] Last Admin: 12/03/16 09:29 Dose: Not Given Heparin Sodium (Porcine) (Heparin -) 5,000 unit SQ BID [facility] Last Admin: 12/03/16 09:27 Dose: 5,000 unit Piperacillin Sod/Tazobactam (Sod 3.375 gm/ Dextrose) 50 mls @ 100 mls/hr IVPB Q8H-IV [facility] PRN Reason: Protocol Last Admin: 12/03/16 11:01 Dose: 100 mls/hr Insulin Aspart (Novolog Vial Sliding Scale -) 1 vial SQ BIDAC [facility] PRN Reason: Protocol Last Admin: 12/03/16 06:23 Dose: 2 units Lisinopril (Prinivil) 2.5 mg PEG DAILY [facility] Last Admin: 12/03/16 09:28 Dose: 2.5 mg Magnesium Oxide (Mag-Ox -) 400 mg PEG BID [facility] Last Admin: 12/03/16 09:27 Dose: 400 mg Metoclopramide HCl (Reglan Oral Solution -) 10 mg GT TIDAC PRN PRN Reason: NAUSEA AND/OR VOMITING Last Admin: 12/02/16 10:59 Dose: 10 mg Metoprolol Tartrate (Lopressor -) 50 mg PEG BID [facility] Last Admin: 12/03/16 09:27 Dose: 50 mg Mirtazapine (Remeron -) 15 mg PEG HS [facility] Last Admin: 07/26/17 22:47 Dose: 15 mg Systane Ultra Eye (Drops) 1 each OU BID [facility] Last Admin: 12/03/16 09:29 Dose: 1 each Travatan 0.004% Eye (Drops) 1 each OU HS [facility] Last Admin: 12/02/16 22:47 Dose: Not Given Ondansetron HCl (Zofran Injection) 8 mg IVPB Q6H PRN PRN Reason: NAUSEA AND/OR VOMITING Scopolamine HBr (Transderm-Scop -) 1 patch TD Q3D@1000 [facility] Last Admin: 12/01/16 14:07 Dose: 1 patch Senna (Senna -) 2 tab PO HS PRN PRN Reason: CONSTIPATION Tamsulosin HCl (Flomax -) 0.4 mg PO DAILY@0830 [facility] Last Admin: 12/03/16 09:27 Dose: 0.4 mg - Objective Vital Signs: Vital Signs Temperature 99.1 F 12/03/16 06:00 Pulse Rate 87 12/03/16 06:00 Respiratory Rate 20 12/03/16 06:00 Blood Pressure 142/62 12/03/16 06:00 O2 Sat by Pulse Oximetry (%) 95 12/02/16 21:00 Constitutional: Yes: No Distress, Cachectic Eyes: Yes: Conjunctiva Clear Neck: Yes: Supple Cardiovascular: Yes: Regular Rate and Rhythm, S1, S2 Respiratory: Yes: Diminished Gastrointestinal: Yes: Normal Bowel Sounds, Soft, Other (+ GT). 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
--- NOTE | 2016-12-03 11:48 | PN ---
Progress Note (short form) - Note Progress Note: surgery pt seen and examined. now with peg on feeds at 70. denies abd pain. currently emaciated. with oxygen. abd- soft, nt Plan- ileus resolved. on full feeds.
--- NOTE | 2016-12-03 14:14 | PN ---
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 Looking a little strongeer. Trial of 2 tsp of nectatr thick liquid. Swallow delayed, fairly strong. No responsive cough, however, pt then began drooling, and hiccoughing. Pt is on PEG feedings at this time. Oral candidiasis seems to be improving. Selected Entries 11/30/16 11/30/16 11/30/16 01:59 06:00 09:00 Temperature 98.7 F 100.7 F H 98.9 F 11/30/16 11/30/16 11/30/16 14:00 16:15 22:00 Temperature 98.3 F 98.6 F 99.8 F H 12/01/16 12/01/16 12/01/16 06:24 10:00 18:00 Temperature 99.4 F 99.3 F 99.1 F 12/01/16 12/02/16 12/02/16 22:00 06:00 14:00 Temperature 98.1 F 99.6 F 99.8 F H 12/02/16 12/02/16 12/03/16 16:15 22:00 06:00 Temperature 98.7 F 98.5 F 99.1 F Laboratory Tests 11/30/16 12/01/16 12/02/16 06:00 06:00 06:00 WBC 24.3 H D 17.9 H 15.6 H 12/03/16 06:00 WBC 14.2 H With pt's fragile medical status,suggest continue holding po trials for now, until pulmonary status improves. MBS can be repeated, when pt is stronger, to initiate PO trials with safety. Tghis can be done as in pt next week or as out pt. Reviewed [facility].
--- NOTE | 2016-12-03 19:27 | PN ---
Progress Note, Physician History of Present Illness: Pt with cough, improved, minimum white sputum Pt without N, V; pt has no abdominal pain Pt w/o fever, chills. Pt w/o CP, SOB, Palp. - Current Medication List Current Medications: Active Medications Acetaminophen (Tylenol Oral Solution -) 650 mg GT Q6H PRN PRN Reason: FEVER OR PAIN Last Admin: 12/03/16 18:10 Dose: 650 mg Amlodipine Besylate (Norvasc -) 10 mg PEG DAILY [facility] Last Admin: 12/03/16 09:27 Dose: 10 mg Arformoterol Tartrate (Brovana (Restricted To Pulmonology/Resp) -) 1 amp NEB BID [facility] Last Admin: 12/03/16 11:15 Dose: 1 amp Clotrimazole (Mycelex Miri's -) 10 mg PO 5XD [facility] Last Admin: 12/03/16 18:02 Dose: 10 mg Docusate Sodium (Colace Liquid -) 100 mg GT BID [facility] Last Admin: 12/03/16 09:29 Dose: Not Given Heparin Sodium (Porcine) (Heparin -) 5,000 unit SQ BID [facility] Last Admin: 12/03/16 09:27 Dose: 5,000 unit Piperacillin Sod/Tazobactam (Sod 3.375 gm/ Dextrose) 50 mls @ 100 mls/hr IVPB Q8H-IV [facility] PRN Reason: Protocol Last Admin: 12/03/16 18:02 Dose: 100 mls/hr Insulin Aspart (Novolog Vial Sliding Scale -) 1 vial SQ BIDAC [facility] PRN Reason: Protocol Last Admin: 12/03/16 18:04 Dose: 2 units Lisinopril (Prinivil) 2.5 mg PEG DAILY [facility] Last Admin: 12/03/16 09:28 Dose: 2.5 mg Magnesium Oxide (Mag-Ox -) 400 mg PEG BID [facility] Last Admin: 12/03/16 09:27 Dose: 400 mg Metoclopramide HCl (Reglan Oral Solution -) 10 mg GT TIDAC PRN PRN Reason: NAUSEA AND/OR VOMITING Last Admin: 12/02/16 10:59 Dose: 10 mg Metoprolol Tartrate (Lopressor -) 50 mg PEG BID [facility] Last Admin: 12/03/16 09:27 Dose: 50 mg Mirtazapine (Remeron -) 15 mg PEG HS [facility] Last Admin: 12/02/16 22:47 Dose: 15 mg Systane Ultra Eye (Drops) 1 each OU BID [facility] Last Admin: 12/03/16 09:29 Dose: 1 each Travatan 0.004% Eye (Drops) 1 each OU HS [facility] Last Admin: 12/02/16 22:47 Dose: Not Given Ondansetron HCl (Zofran Injection) 8 mg IVPB Q6H PRN PRN Reason: NAUSEA AND/OR VOMITING Scopolamine HBr (Transderm-Scop -) 1 patch TD Q3D@1000 [facility] Last Admin: 12/01/16 14:07 Dose: 1 patch Senna (Senna -) 2 tab PO HS PRN PRN Reason: CONSTIPATION Tamsulosin HCl (Flomax -) 0.4 mg PO DAILY@0830 [facility] Last Admin: 12/03/16 09:27 Dose: 0.4 mg - Objective Vital Signs: Vital Signs Temperature 97.9 F 12/03/16 15:19 Pulse Rate 86 12/03/16 15:19 Respiratory Rate 16 12/03/16 15:19 Blood Pressure 113/63 12/03/16 15:19 O2 Sat by Pulse Oximetry (%) 95 12/02/16 21:00 Constitutional: Yes: No Distress, Calm Cardiovascular: Yes: Regular Rate and Rhythm, S1, S2 Respiratory: Yes: Regular, Other (coarse BS) Gastrointestinal: Yes: Normal Bowel Sounds, Soft. No: Tenderness Edema: No Neurological: Yes: Alert, Oriented Labs: CBC, BMP 12/03/16 06:00 12/03/16 06:00 INR, PTT INR 1.17 (0.82-1.09) H 11/27/16 06:45 Problem List - Problems (1) Small bowel mass Code(s): K63.89 - OTHER SPECIFIED DISEASES OF INTESTINE (2) SBO (small bowel obstruction) Code(s): K56.69 - OTHER INTESTINAL OBSTRUCTION (3) Pneumatosis intestinalis Code(s): K63.89 - OTHER SPECIFIED DISEASES OF INTESTINE (4) CHF (congestive heart failure) Code(s): I50.9 - HEART FAILURE, UNSPECIFIED (5) CVA (cerebral infarction) Code(s): I63.9 - CEREBRAL INFARCTION, UNSPECIFIED (6) Chronic obstructive pulmonary disease Code(s): J44.9 - CHRONIC OBSTRUCTIVE PULMONARY DISEASE, UNSPECIFIED (7) Hyperlipidemia Code(s): E78.5 - HYPERLIPIDEMIA, UNSPECIFIED (8) Hypokalemia due to inadequate potassium intake Code(s): E87.6 - HYPOKALEMIA (9) Hypophosphatemia Code(s): E83.39 - OTHER DISORDERS OF PHOSPHORUS METABOLISM (10) HTN (hypertension) Code(s): I10 - ESSENTIAL (PRIMARY) HYPERTENSION (11) Hypomagnesemia Code(s): E83.42 - HYPOMAGNESEMIA (12) Bandemia Code(s): D72.825 - BANDEMIA (13) Pneumonia Code(s): J18.9 - PNEUMONIA, UNSPECIFIED ORGANISM (14) Hypoalbuminemia Code(s): E88.09 - OTH DISORDERS OF PLASMA-PROTEIN METABOLISM, NEC (15) Elevated LFTs Code(s): R79.89 - OTHER SPECIFIED ABNORMAL FINDINGS OF BLOOD CHEMISTRY (16) Urinary retention Code(s): R33.9 - RETENTION OF URINE, UNSPECIFIED (17) Abdominal aneurysm Code(s): I71.4 - ABDOMINAL AORTIC ANEURYSM, WITHOUT RUPTURE (18) Depression Assessment/Plan: Pt doesn't want to see a Psychiatrist but agrees to try medication Code(s): F32.9 - MAJOR DEPRESSIVE DISORDER, SINGLE EPISODE, UNSPECIFIED (19) Dysphagia Code(s): R13.10 - DYSPHAGIA, UNSPECIFIED Assessment/Plan GI and surgical f/u appreciated Pt was transferred from ICU to Telemetry to medical floor Pt removed NGT. Pt diet was advanced but has poor PO intake. Pt off TPN. Pt is s/p MBS, + for silent aspiration (diet was changed). Pt with Hx/o + BCX, LLL PNA, s/p IV abtx Pt wants his to make medical decisions if he cannot; both daughters agree with pt. All family's questions were answered. Pt is hemodynamically stable. Pt. is s/p left PICC Line placement; pt removed it. I encourage PO intake, OOBTC Started Remeron (dose was increased), MVI. Swallow evaluation appreciated. S/p PEG placement Aspiratin PNA, pt improving; Abtx per ID AM labs. Prognosis: reserved. Case was d/w pt's nurse and his . .
[2016-12-03] MEDS: MIRTAZAPINE 15 MG TABLET (FP) PEG SCH (21:09)
[2016-12-03] MEDS: EYE OU SCH (23:25)
[2016-12-03] MEDS: TRAVATAN 0.004% OU SCH (23:25)
[2016-12-04] MEDS ORDERED: DEXTROSE 5%-WATER - 50 ML IVPB ONE ×3 (00:47→18:07)
[2016-12-04] MEDS ORDERED: PIPERACILLIN/TAZOBACTAM 3.375 GM VIAL IVPB ONE ×3 (00:47→18:06)
[2016-12-04] MEDS: PIPERACILLIN/TAZOB 3.375 GM 3.375 GM in DEXTROSE 5%-WATER - 50 ML IVPB SCH ×4 (01:11→18:10)
[2016-12-04] MEDS: CLOTRIMAZOLE 10 MG TROCHE (FP) PO SCH ×5 (05:50→21:32)
[2016-12-04] MEDS: INSULIN SLIDING SCALE (NOVOLOG) 1 VIAL SQ SCH ×2 (06:09→18:21)
[2016-12-04 07:37] LABS: MCH 27.2 pg (25.7-33.7); MCHC 32.9 g/dl (32.0-35.9); MEAN CELL VOLUME 82.6 fl (80-96); MEAN PLT VOLUME 7.9 fl (7.5-11.1); PLATELET COUNT 332 K/MM3 (134-434); RDW 14.2 % (11.9-15.9); WHITE BLOOD COUNT 13.3 K/mm3 (4.0-10.0)
[2016-12-04] MEDS ORDERED: PT OWN MED DRAWER 7, Y5N ONE ×5 (08:17→18:06)
[2016-12-04] MEDS ORDERED: INSULIN (NOVOLOG) ASPART 100 UNITS/ML 10ML VIAL ONE (08:17)
[2016-12-04 08:28] LABS: ANION GAP 8 (8-16); CALCIUM 9.2 mg/dL (8.5-10.1); CO2 32 mmol/L (21-32); CREATININE 0.5 mg/dL (0.7-1.3); GLUCOSE,RANDOM 198 mg/dL (74-106)
[2016-12-04] MEDS: ARFORMOTEROL TARTRATE 15 MCG/2 ML VIAL NEB SCH ×2 (10:10→22:57)
[2016-12-04] MEDS ORDERED: POTASSIUM CHLORIDE ORAL LIQUID 20 MEQ/15 ML PO ONE (10:31)
--- NOTE | 2016-12-04 10:33 | PN ---
Progress Note, Physician History of Present Illness: Pt with cough, improved, minimum white sputum; no SOB Pt without N, V; pt has no abdominal pain Pt w/o fever, chills. Pt w/o CP, SOB, Palp. - Current Medication List Current Medications: Active Medications Acetaminophen (Tylenol Oral Solution -) 650 mg GT Q6H PRN PRN Reason: FEVER OR PAIN Last Admin: 12/03/16 18:10 Dose: 650 mg Amlodipine Besylate (Norvasc -) 10 mg PEG DAILY [facility] Last Admin: 12/03/16 09:27 Dose: 10 mg Arformoterol Tartrate (Brovana (Restricted To Pulmonology/Resp) -) 1 amp NEB BID [facility] Last Admin: 12/04/16 10:10 Dose: 1 amp Clotrimazole (Mycelex Miri's -) 10 mg PO 5XD [facility] Last Admin: 12/04/16 05:50 Dose: 10 mg Docusate Sodium (Colace Liquid -) 100 mg GT BID [facility] Last Admin: 12/03/16 21:08 Dose: 100 mg Heparin Sodium (Porcine) (Heparin -) 5,000 unit SQ BID [facility] Last Admin: 12/03/16 21:10 Dose: 5,000 unit Piperacillin Sod/Tazobactam (Sod 3.375 gm/ Dextrose) 50 mls @ 100 mls/hr IVPB Q8H-IV [facility] PRN Reason: Protocol Last Admin: 12/04/16 01:11 Dose: 100 mls/hr Insulin Aspart (Novolog Vial Sliding Scale -) 1 vial SQ BIDAC [facility] PRN Reason: Protocol Last Admin: 12/04/16 06:09 Dose: 2 units Lisinopril (Prinivil) 2.5 mg PEG DAILY [facility] Last Admin: 12/03/16 09:28 Dose: 2.5 mg Magnesium Oxide (Mag-Ox -) 400 mg PEG BID [facility] Last Admin: 12/03/16 21:07 Dose: 400 mg Metoclopramide HCl (Reglan Oral Solution -) 10 mg GT TIDAC PRN PRN Reason: NAUSEA AND/OR VOMITING Last Admin: 12/02/16 10:59 Dose: 10 mg Metoprolol Tartrate (Lopressor -) 50 mg PEG BID [facility] Last Admin: 12/03/16 21:07 Dose: 50 mg Mirtazapine (Remeron -) 15 mg PEG HS [facility] Last Admin: 12/03/16 21:09 Dose: 15 mg Systane Ultra Eye (Drops) 1 each OU BID [facility] Last Admin: 12/03/16 21:10 Dose: 1 each Travatan 0.004% Eye (Drops) 1 each OU HS [facility] Last Admin: 12/03/16 23:25 Dose: Not Given Ondansetron HCl (Zofran Injection) 8 mg IVPB Q6H PRN PRN Reason: NAUSEA AND/OR VOMITING Potassium Chloride (Potassium Chloride Oral Liquid) 20 meq PO ONCE ONE Stop: 12/04/16 10:32 Scopolamine HBr (Transderm-Scop -) 1 patch TD Q3D@1000 [facility] Last Admin: 12/01/16 14:07 Dose: 1 patch Senna (Senna -) 2 tab PO HS PRN PRN Reason: CONSTIPATION Tamsulosin HCl (Flomax -) 0.4 mg PO DAILY@0830 [facility] Last Admin: 12/03/16 09:27 Dose: 0.4 mg - Objective Vital Signs: Vital Signs Temperature 98.2 F 12/04/16 06:00 Pulse Rate 92 H 12/04/16 10:10 Respiratory Rate 18 12/04/16 06:00 Blood Pressure 150/87 12/04/16 06:00 O2 Sat by Pulse Oximetry (%) 97 12/04/16 10:10 Constitutional: Yes: No Distress, Calm Cardiovascular: Yes: Regular Rate and Rhythm, S1, S2 Respiratory: Yes: Regular, Other (coarse BS at bases) Gastrointestinal: Yes: Normal Bowel Sounds, Soft, Other (PEG in place). No: Tenderness Edema: No Labs: CBC, BMP 12/04/16 06:40 12/04/16 06:40 INR, PTT INR 1.17 (0.82-1.09) H 11/27/16 06:45 Problem List - Problems (1) Small bowel mass Code(s): K63.89 - OTHER SPECIFIED DISEASES OF INTESTINE (2) SBO (small bowel obstruction) Code(s): K56.69 - OTHER INTESTINAL OBSTRUCTION (3) Pneumatosis intestinalis Code(s): K63.89 - OTHER SPECIFIED DISEASES OF INTESTINE (4) CHF (congestive heart failure) Code(s): I50.9 - HEART FAILURE, UNSPECIFIED (5) CVA (cerebral infarction) Code(s): I63.9 - CEREBRAL INFARCTION, UNSPECIFIED (6) Chronic obstructive pulmonary disease Code(s): J44.9 - CHRONIC OBSTRUCTIVE PULMONARY DISEASE, UNSPECIFIED (7) Hyperlipidemia Code(s): E78.5 - HYPERLIPIDEMIA, UNSPECIFIED (8) Hypokalemia due to inadequate potassium intake Code(s): E87.6 - HYPOKALEMIA (9) Hypophosphatemia Code(s): E83.39 - OTHER DISORDERS OF PHOSPHORUS METABOLISM (10) HTN (hypertension) Code(s): I10 - ESSENTIAL (PRIMARY) HYPERTENSION (11) Hypomagnesemia Code(s): E83.42 - HYPOMAGNESEMIA (12) Bandemia Code(s): D72.825 - BANDEMIA (13) Pneumonia Code(s): J18.9 - PNEUMONIA, UNSPECIFIED ORGANISM (14) Hypoalbuminemia Code(s): E88.09 - OTH DISORDERS OF PLASMA-PROTEIN METABOLISM, NEC (15) Elevated LFTs Code(s): R79.89 - OTHER SPECIFIED ABNORMAL FINDINGS OF BLOOD CHEMISTRY (16) Urinary retention Code(s): R33.9 - RETENTION OF URINE, UNSPECIFIED (17) Abdominal aneurysm Code(s): I71.4 - ABDOMINAL AORTIC ANEURYSM, WITHOUT RUPTURE (18) Depression Code(s): F32.9 - MAJOR DEPRESSIVE DISORDER, SINGLE EPISODE, UNSPECIFIED (19) Dysphagia Code(s): R13.10 - DYSPHAGIA, UNSPECIFIED Assessment/Plan GI and surgical f/u appreciated Pt was transferred from ICU to Telemetry to medical floor Pt removed NGT. Pt diet was advanced but has poor PO intake. Pt off TPN. Pt is s/p MBS, + for silent aspiration (diet was changed). Pt with Hx/o + BCX, LLL PNA, s/p IV abtx Pt wants his to make medical decisions if he cannot; both daughters agree with pt. All family's questions were answered. Pt is hemodynamically stable. Pt. is s/p left PICC Line placement; pt removed it. I encourage PO intake, OOBTC Started Remeron (dose was increased), MVI. Swallow evaluation appreciated. S/p PEG placement Aspiratin PNA, pt improving; Abtx per ID; Dr Wiley at bed side AM labs. Prognosis: reserved. Case was d/w pt's nurse.
[2016-12-04] MEDS: DOCUSATE NA 100 MG/10 ML UNIT-DOSE CUPS GT SCH ×2 (10:42→21:34)
[2016-12-04] MEDS: MULTIVIT-MINERALS 236 ML ML GT SCH (10:47)
[2016-12-04] MEDS: LISINOPRIL 5 MG TABLET (FP) PEG SCH (10:48)
[2016-12-04] MEDS: ACETAMINOPHEN 650 MG/20.3 ML ORAL SOLUTION (CUPS) GT PRN (10:48)
[2016-12-04] MEDS: SYSTANE ULTRA EYE DROPS OU SCH ×2 (10:48→21:32)
[2016-12-04] MEDS: HEPARIN NA (PORCINE) 5,000 UNITS/ML 1ML VIAL SQ SCH ×2 (10:48→21:32)
[2016-12-04] MEDS: amLODIPine BESYLATE 10 MG TABLET (FP) PEG SCH (10:48)
[2016-12-04] MEDS: MAGNESIUM OXIDE 400 MG TABLET (FP) PEG SCH ×2 (10:48→21:32)
[2016-12-04] MEDS: METOPROLOL TARTRATE 50 MG TABLET (FP) PEG SCH ×2 (10:48→21:32)
[2016-12-04] MEDS: TAMSULOSIN HCL 0.4 MG CAP.ER.24H (FP) PO SCH (10:48)
[2016-12-04] MEDS: SCOPOLAMINE HYDROBROMIDE 1 PATCH PATCH.TD72 TD SCH (11:04)
[2016-12-04] MEDS: POTASSIUM CHLORIDE ORAL LIQUID 20 MEQ/15 ML PEG SCH (11:04)
--- NOTE | 2016-12-04 11:10 | PN ---
Progress Note, Physician History of Present Illness: Awake, alert in bed No complaints offered Breathing non-labored No cough noted - Current Medication List Current Medications: Active Medications Acetaminophen (Tylenol Oral Solution -) 650 mg GT Q6H PRN PRN Reason: FEVER OR PAIN Last Admin: 12/04/16 10:48 Dose: 650 mg Amlodipine Besylate (Norvasc -) 10 mg PEG DAILY [facility] Last Admin: 12/04/16 10:48 Dose: 10 mg Arformoterol Tartrate (Brovana (Restricted To Pulmonology/Resp) -) 1 amp NEB BID [facility] Last Admin: 12/04/16 10:10 Dose: 1 amp Clotrimazole (Mycelex Miri's -) 10 mg PO 5XD [facility] Last Admin: 12/04/16 10:47 Dose: 10 mg Docusate Sodium (Colace Liquid -) 100 mg GT BID [facility] Last Admin: 12/04/16 10:42 Dose: Not Given Heparin Sodium (Porcine) (Heparin -) 5,000 unit SQ BID [facility] Last Admin: 12/04/16 10:48 Dose: 5,000 unit Piperacillin Sod/Tazobactam (Sod 3.375 gm/ Dextrose) 50 mls @ 100 mls/hr IVPB Q8H-IV [facility] PRN Reason: Protocol Last Admin: 12/04/16 10:49 Dose: Not Given Insulin Aspart (Novolog Vial Sliding Scale -) 1 vial SQ BIDAC [facility] PRN Reason: Protocol Last Admin: 12/04/16 06:09 Dose: 2 units Lisinopril (Prinivil) 2.5 mg PEG DAILY [facility] Last Admin: 12/04/16 10:48 Dose: 2.5 mg Magnesium Oxide (Mag-Ox -) 400 mg PEG BID [facility] Last Admin: 12/04/16 10:48 Dose: 400 mg Metoclopramide HCl (Reglan Oral Solution -) 10 mg GT TIDAC PRN PRN Reason: NAUSEA AND/OR VOMITING Last Admin: 12/02/16 10:59 Dose: 10 mg Metoprolol Tartrate (Lopressor -) 50 mg PEG BID [facility] Last Admin: 12/04/16 10:48 Dose: 50 mg Mirtazapine (Remeron -) 15 mg PEG HS [facility] Last Admin: 12/03/16 21:09 Dose: 15 mg Systane Ultra Eye (Drops) 1 each OU BID [facility] Last Admin: 12/04/16 10:48 Dose: 1 each Travatan 0.004% Eye (Drops) 1 each OU HS [facility] Last Admin: 12/03/16 23:25 Dose: Not Given Ondansetron HCl (Zofran Injection) 8 mg IVPB Q6H PRN PRN Reason: NAUSEA AND/OR VOMITING Potassium Chloride (Potassium Chloride Oral Liquid) 20 meq PEG DAILY [facility] Last Admin: 12/04/16 11:04 Dose: 20 meq Scopolamine HBr (Transderm-Scop -) 1 patch TD Q3D@1000 [facility] Last Admin: 12/04/16 11:04 Dose: 1 patch Senna (Senna -) 2 tab PO HS PRN PRN Reason: CONSTIPATION Tamsulosin HCl (Flomax -) 0.4 mg PO DAILY@0830 [facility] Last Admin: 12/04/16 10:48 Dose: 0.4 mg - Objective Vital Signs: Vital Signs Temperature 98.2 F 12/04/16 06:00 Pulse Rate 92 H 12/04/16 10:10 Respiratory Rate 18 12/04/16 06:00 Blood Pressure 150/87 12/04/16 06:00 O2 Sat by Pulse Oximetry (%) 97 12/04/16 10:10 Constitutional: Yes: No Distress, Cachectic Eyes: Yes: Conjunctiva Clear Cardiovascular: Yes: Regular Rate and Rhythm, S1, S2 Respiratory: Yes: Diminished Gastrointestinal: Yes: Normal Bowel Sounds, Soft, Other (+ GT). 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
[2016-12-04] MEDS: TRAVATAN 0.004% OU SCH (21:32)
[2016-12-04] MEDS: EYE OU SCH (21:32)
[2016-12-04] MEDS: MIRTAZAPINE 15 MG TABLET (FP) PEG SCH (21:32)
[2016-12-05] MEDS ORDERED: DEXTROSE 5%-WATER - 50 ML IVPB ONE ×3 (01:11→17:36)
[2016-12-05] MEDS ORDERED: PIPERACILLIN/TAZOBACTAM 3.375 GM VIAL IVPB ONE ×3 (01:11→17:35)
[2016-12-05] MEDS: PIPERACILLIN/TAZOB 3.375 GM 3.375 GM in DEXTROSE 5%-WATER - 50 ML IVPB SCH ×3 (01:25→17:51)
[2016-12-05] MEDS: CLOTRIMAZOLE 10 MG TROCHE (FP) PO SCH ×5 (05:44→23:05)
[2016-12-05] MEDS: INSULIN SLIDING SCALE (NOVOLOG) 1 VIAL SQ SCH ×2 (06:05→17:50)
[2016-12-05 07:52] LABS: MCH 26.8 pg (25.7-33.7); MCHC 32.3 g/dl (32.0-35.9); MEAN PLT VOLUME 8.4 fl (7.5-11.1); PLATELET COUNT 403 K/MM3 (134-434); RDW 15.1 % (11.9-15.9); WHITE BLOOD COUNT 12.9 K/mm3 (4.0-10.0)
[2016-12-05 07:54] LABS: ANION GAP 6 (8-16); CALCIUM 9.8 mg/dL (8.5-10.1); CO2 31 mmol/L (21-32); CREATININE 0.5 mg/dL (0.7-1.3); GLUCOSE,RANDOM 108 mg/dL (74-106)
[2016-12-05] MEDS: TAMSULOSIN HCL 0.4 MG CAP.ER.24H (FP) PO SCH (08:32)
[2016-12-05] MEDS: MULTIVIT-MINERALS 236 ML ML GT SCH (09:30)
[2016-12-05] MEDS: HEPARIN NA (PORCINE) 5,000 UNITS/ML 1ML VIAL SQ SCH ×2 (09:31→23:05)
[2016-12-05] MEDS: DOCUSATE NA 100 MG/10 ML UNIT-DOSE CUPS GT SCH ×2 (09:31→23:05)
[2016-12-05] MEDS: MAGNESIUM OXIDE 400 MG TABLET (FP) PEG SCH ×2 (09:32→23:05)
[2016-12-05] MEDS: METOPROLOL TARTRATE 50 MG TABLET (FP) PEG SCH ×2 (09:32→23:05)
[2016-12-05] MEDS: SYSTANE ULTRA EYE DROPS OU SCH ×2 (09:34→23:05)
[2016-12-05] MEDS: amLODIPine BESYLATE 10 MG TABLET (FP) PEG SCH (09:34)
--- NOTE | 2016-12-05 09:34 | PN ---
Progress Note (short form) - Note Progress Note: awake and alert NAD Vital Signs Period Temp Pulse Resp BP Sys/Hernandez Pulse Ox Last 24 Hr 98.2 F-99 F 70-99 16-20 126-142/68-76 97-99 cor-rrr lungs decreased bs at bases abd +binder +peg ext no edema +vieyra CBC, BMP 12/05/16 06:00 12/05/16 06:00 Microbiology 11/29/16 11:16 Blood - Peripheral Venous Blood Culture - Final NO GROWTH AFTER 5 DAYS INCUBATION 11/29/16 11:15 Blood - Peripheral Venous Blood Culture - Final NO GROWTH AFTER 5 DAYS INCUBATION 11/29/16 14:10 Urine - Urine Vieyra Urine Culture - Final Vr Ec Faecium 11/04/16 16:20 Blood - Peripheral Venous Blood Culture - Final NO GROWTH AFTER 5 DAYS INCUBATION 11/04/16 16:15 Blood - Peripheral Venous Blood Culture - Final NO GROWTH AFTER 5 DAYS INCUBATION 11/01/16 12:15 Blood - Peripheral Venous Blood Culture - Final NO GROWTH AFTER 5 DAYS INCUBATION 11/02/16 02:00 Sputum - Expectorated Gram Stain - Final 11/02/16 02:00 Sputum - Expectorated Sputum Culture - Final NORMAL RESPIRATORY CONG 11/01/16 12:15 Blood - Peripheral Venous Blood Culture - Final Klebsiella Pneumoniae 11/01/16 17:15 Urine - Urine Vieyra Urine Culture - Final NO GROWTH OBTAINED 10/28/16 14:35 Blood - Peripheral Venous Blood Culture - Final NO GROWTH AFTER 5 DAYS INCUBATION 10/28/16 14:30 Blood - Peripheral Venous Blood Culture - Final NO GROWTH AFTER 5 DAYS INCUBATION 10/31/16 00:01 Urine - Urine - Catheterized Urine Culture - Final NO GROWTH OBTAINED Current Medications Acetaminophen (Tylenol Oral Solution -) 650 mg GT Q6H PRN PRN Reason: FEVER OR PAIN Last Admin: 12/04/16 10:48 Dose: 650 mg Amlodipine Besylate (Norvasc -) 10 mg PEG DAILY [facility] Last Admin: 12/04/16 10:48 Dose: 10 mg Arformoterol Tartrate (Brovana (Restricted To Pulmonology/Resp) -) 1 amp NEB BID [facility] Last Admin: 12/04/16 22:57 Dose: 1 amp Clotrimazole (Mycelex Miri's -) 10 mg PO 5XD [facility] Last Admin: 12/05/16 05:44 Dose: 10 mg Docusate Sodium (Colace Liquid -) 100 mg GT BID [facility] Last Admin: 12/04/16 21:34 Dose: Not Given Heparin Sodium (Porcine) (Heparin -) 5,000 unit SQ BID [facility] Last Admin: 12/04/16 21:32 Dose: 5,000 unit Piperacillin Sod/Tazobactam (Sod 3.375 gm/ Dextrose) 50 mls @ 100 mls/hr IVPB Q8H-IV [facility] PRN Reason: Protocol Last Admin: 12/05/16 01:25 Dose: 100 mls/hr Insulin Aspart (Novolog Vial Sliding Scale -) 1 vial SQ BIDAC [facility] PRN Reason: Protocol Last Admin: 12/05/16 06:05 Dose: Not Given Lisinopril (Prinivil) 2.5 mg PEG DAILY [facility] Last Admin: 12/04/16 10:48 Dose: 2.5 mg Magnesium Oxide (Mag-Ox -) 400 mg PEG BID [facility] Last Admin: 12/04/16 21:32 Dose: 400 mg Metoclopramide HCl (Reglan Oral Solution -) 10 mg GT TIDAC PRN PRN Reason: NAUSEA AND/OR VOMITING Last Admin: 12/02/16 10:59 Dose: 10 mg Metoprolol Tartrate (Lopressor -) 50 mg PEG BID [facility] Last Admin: 12/04/16 21:32 Dose: 50 mg Mirtazapine (Remeron -) 15 mg PEG HS [facility] Last Admin: 12/04/16 21:32 Dose: 15 mg Systane Ultra Eye (Drops) 1 each OU BID [facility] Last Admin: 12/04/16 21:32 Dose: 1 each Travatan 0.004% Eye (Drops) 1 each OU HS [facility] Last Admin: 12/04/16 21:32 Dose: Not Given Ondansetron HCl (Zofran Injection) 8 mg IVPB Q6H PRN PRN Reason: NAUSEA AND/OR VOMITING Potassium Chloride (Potassium Chloride Oral Liquid) 20 meq PEG DAILY [facility] Last Admin: 12/04/16 11:04 Dose: 20 meq Scopolamine HBr (Transderm-Scop -) 1 patch TD Q3D@1000 [facility] Last Admin: 12/04/16 11:04 Dose: 1 patch Senna (Senna -) 2 tab PO HS PRN PRN Reason: CONSTIPATION Tamsulosin HCl (Flomax -) 0.4 mg PO DAILY@0830 [facility] Last Admin: 12/05/16 08:32 Dose: 0.4 mg a/p day #11/13 zosyn for Pneumonia 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
[2016-12-05] MEDS: LISINOPRIL 5 MG TABLET (FP) PEG SCH (09:35)
[2016-12-05] MEDS: ARFORMOTEROL TARTRATE 15 MCG/2 ML VIAL NEB SCH ×2 (10:05→22:07)
--- NOTE | 2016-12-05 11:47 | PN ---
Progress Note, Physician History of Present Illness: Pt with decreased cough, minimum white sputum; no SOB Pt without N, V; pt has no abdominal pain Pt w/o fever, chills. Pt w/o CP, SOB, Palp. - Current Medication List Current Medications: Active Medications Acetaminophen (Tylenol Oral Solution -) 650 mg GT Q6H PRN PRN Reason: FEVER OR PAIN Last Admin: 12/04/16 10:48 Dose: 650 mg Amlodipine Besylate (Norvasc -) 10 mg PEG DAILY [facility] Last Admin: 12/05/16 09:34 Dose: 10 mg Arformoterol Tartrate (Brovana (Restricted To Pulmonology/Resp) -) 1 amp NEB BID [facility] Last Admin: 12/05/16 10:05 Dose: 1 amp Clotrimazole (Mycelex Miri's -) 10 mg PO 5XD [facility] Last Admin: 12/05/16 09:33 Dose: 10 mg Docusate Sodium (Colace Liquid -) 100 mg GT BID [facility] Last Admin: 12/05/16 09:31 Dose: Not Given Heparin Sodium (Porcine) (Heparin -) 5,000 unit SQ BID [facility] Last Admin: 12/05/16 09:31 Dose: 5,000 unit Piperacillin Sod/Tazobactam (Sod 3.375 gm/ Dextrose) 50 mls @ 100 mls/hr IVPB Q8H-IV [facility] PRN Reason: Protocol Last Admin: 12/05/16 09:36 Dose: 100 mls/hr Insulin Aspart (Novolog Vial Sliding Scale -) 1 vial SQ BIDAC [facility] PRN Reason: Protocol Last Admin: 12/05/16 06:05 Dose: Not Given Lisinopril (Prinivil) 2.5 mg PEG DAILY [facility] Last Admin: 12/05/16 09:35 Dose: 2.5 mg Magnesium Oxide (Mag-Ox -) 400 mg PEG BID [facility] Last Admin: 12/05/16 09:32 Dose: 400 mg Metoclopramide HCl (Reglan Oral Solution -) 10 mg GT TIDAC PRN PRN Reason: NAUSEA AND/OR VOMITING Last Admin: 12/02/16 10:59 Dose: 10 mg Metoprolol Tartrate (Lopressor -) 50 mg PEG BID [facility] Last Admin: 12/05/16 09:32 Dose: 50 mg Mirtazapine (Remeron -) 15 mg PEG HS [facility] Last Admin: 12/04/16 21:32 Dose: 15 mg Systane Ultra Eye (Drops) 1 each OU BID [facility] Last Admin: 12/05/16 09:34 Dose: 1 each Travatan 0.004% Eye (Drops) 1 each OU HS [facility] Last Admin: 12/04/16 21:32 Dose: Not Given Ondansetron HCl (Zofran Injection) 8 mg IVPB Q6H PRN PRN Reason: NAUSEA AND/OR VOMITING Potassium Chloride (Potassium Chloride Oral Liquid) 20 meq PEG DAILY [facility] Last Admin: 12/04/16 11:04 Dose: 20 meq Scopolamine HBr (Transderm-Scop -) 1 patch TD Q3D@1000 [facility] Last Admin: 12/04/16 11:04 Dose: 1 patch Senna (Senna -) 2 tab PO HS PRN PRN Reason: CONSTIPATION Tamsulosin HCl (Flomax -) 0.4 mg PO DAILY@0830 [facility] Last Admin: 12/05/16 08:32 Dose: 0.4 mg - Objective Vital Signs: Vital Signs Temperature 99 F 12/05/16 06:00 Pulse Rate 97 H 12/05/16 11:23 Respiratory Rate 20 12/05/16 06:00 Blood Pressure 142/76 12/05/16 06:00 O2 Sat by Pulse Oximetry (%) 97 12/05/16 11:23 Constitutional: Yes: No Distress, Calm Cardiovascular: Yes: Regular Rate and Rhythm, S1, S2 Respiratory: Yes: Regular, CTA Bilaterally. No: Rales Gastrointestinal: Yes: Normal Bowel Sounds, Soft. No: Tenderness Edema: No Neurological: Yes: Alert, Oriented Labs: CBC, BMP 12/05/16 06:00 12/05/16 06:00 INR, PTT INR 1.17 (0.82-1.09) H 11/27/16 06:45 Problem List - Problems (1) Small bowel mass Code(s): K63.89 - OTHER SPECIFIED DISEASES OF INTESTINE (2) SBO (small bowel obstruction) Code(s): K56.69 - OTHER INTESTINAL OBSTRUCTION (3) Pneumatosis intestinalis Code(s): K63.89 - OTHER SPECIFIED DISEASES OF INTESTINE (4) CHF (congestive heart failure) Code(s): I50.9 - HEART FAILURE, UNSPECIFIED (5) CVA (cerebral infarction) Code(s): I63.9 - CEREBRAL INFARCTION, UNSPECIFIED (6) Chronic obstructive pulmonary disease Code(s): J44.9 - CHRONIC OBSTRUCTIVE PULMONARY DISEASE, UNSPECIFIED (7) Hyperlipidemia Code(s): E78.5 - HYPERLIPIDEMIA, UNSPECIFIED (8) Hypokalemia due to inadequate potassium intake Code(s): E87.6 - HYPOKALEMIA (9) Hypophosphatemia Code(s): E83.39 - OTHER DISORDERS OF PHOSPHORUS METABOLISM (10) HTN (hypertension) Code(s): I10 - ESSENTIAL (PRIMARY) HYPERTENSION (11) Hypomagnesemia Code(s): E83.42 - HYPOMAGNESEMIA (12) Bandemia Code(s): D72.825 - BANDEMIA (13) Pneumonia Code(s): J18.9 - PNEUMONIA, UNSPECIFIED ORGANISM (14) Hypoalbuminemia Code(s): E88.09 - OTH DISORDERS OF PLASMA-PROTEIN METABOLISM, NEC (15) Elevated LFTs Code(s): R79.89 - OTHER SPECIFIED ABNORMAL FINDINGS OF BLOOD CHEMISTRY (16) Urinary retention Code(s): R33.9 - RETENTION OF URINE, UNSPECIFIED (17) Abdominal aneurysm Code(s): I71.4 - ABDOMINAL AORTIC ANEURYSM, WITHOUT RUPTURE (18) Depression Code(s): F32.9 - MAJOR DEPRESSIVE DISORDER, SINGLE EPISODE, UNSPECIFIED (19) Dysphagia Code(s): R13.10 - DYSPHAGIA, UNSPECIFIED Assessment/Plan GI and surgical f/u appreciated Pt was transferred from ICU to Telemetry to medical floor Pt removed NGT. Pt diet was advanced but has poor PO intake. Pt off TPN. Pt is s/p MBS, + for silent aspiration (diet was changed). Pt with Hx/o + BCX, LLL PNA, s/p IV abtx Pt wants his to make medical decisions if he cannot; both daughters agree with pt. All family's questions were answered. Pt is hemodynamically stable. Pt. is s/p left PICC Line placement; pt removed it. I encourage PO intake, OOBTC Started Remeron (dose was increased), MVI. Swallow evaluation appreciated. S/p PEG placement Aspiratin PNA, pt improving;per ID: today is thte last day of abtx. DC planning Prognosis: reserved. Case was d/w pt's nurse.
[2016-12-05] MEDS ORDERED: PT OWN MED DRAWER 7, Y5N ONE ×3 (14:04→21:54)
[2016-12-05] MEDS: ACETAMINOPHEN 650 MG/20.3 ML ORAL SOLUTION (CUPS) GT PRN (14:09)
[2016-12-05] MEDS: POTASSIUM CHLORIDE ORAL LIQUID 20 MEQ/15 ML PEG SCH (14:09)
--- NOTE | 2016-12-05 15:47 | PN ---
Progress Note, Physician Chief Complaint: Pt denies chest pain or dyspnea; no abdominal pain. Pt's daughter is at bedside. History of Present Illness: 81-year-old black male with no history of abdominal surgery presents to the emergency department complaining of periumbilical 6/10 sharp nonradiating intermittent discomfort with nausea no vomiting, fever, chills, chest pain, shortness of breath, flank pains, urinary symptoms. There are no alleviating or exacerbating factors. Last bowel movement 4 days ago. - Current Medication List Current Medications: Active Medications Acetaminophen (Tylenol Oral Solution -) 650 mg GT Q6H PRN PRN Reason: FEVER OR PAIN Last Admin: 12/05/16 14:09 Dose: 650 mg Amlodipine Besylate (Norvasc -) 10 mg PEG DAILY [facility] Last Admin: 12/05/16 09:34 Dose: 10 mg Arformoterol Tartrate (Brovana (Restricted To Pulmonology/Resp) -) 1 amp NEB BID [facility] Last Admin: 12/05/16 10:05 Dose: 1 amp Clotrimazole (Mycelex Miri's -) 10 mg PO 5XD [facility] Last Admin: 12/05/16 14:36 Dose: 10 mg Docusate Sodium (Colace Liquid -) 100 mg GT BID [facility] Last Admin: 12/05/16 09:31 Dose: Not Given Heparin Sodium (Porcine) (Heparin -) 5,000 unit SQ BID [facility] Last Admin: 12/05/16 09:31 Dose: 5,000 unit Piperacillin Sod/Tazobactam (Sod 3.375 gm/ Dextrose) 50 mls @ 100 mls/hr IVPB Q8H-IV [facility] PRN Reason: Protocol Last Admin: 12/05/16 09:36 Dose: 100 mls/hr Insulin Aspart (Novolog Vial Sliding Scale -) 1 vial SQ BIDAC [facility] PRN Reason: Protocol Last Admin: 12/05/16 06:05 Dose: Not Given Lisinopril (Prinivil) 2.5 mg PEG DAILY [facility] Last Admin: 12/05/16 09:35 Dose: 2.5 mg Magnesium Oxide (Mag-Ox -) 400 mg PEG BID [facility] Last Admin: 12/05/16 09:32 Dose: 400 mg Metoclopramide HCl (Reglan Oral Solution -) 10 mg GT TIDAC PRN PRN Reason: NAUSEA AND/OR VOMITING Last Admin: 12/02/16 10:59 Dose: 10 mg Metoprolol Tartrate (Lopressor -) 50 mg PEG BID [facility] Last Admin: 12/05/16 09:32 Dose: 50 mg Mirtazapine (Remeron -) 15 mg PEG HS [facility] Last Admin: 12/04/16 21:32 Dose: 15 mg Systane Ultra Eye (Drops) 1 each OU BID [facility] Last Admin: 12/05/16 09:34 Dose: 1 each Travatan 0.004% Eye (Drops) 1 each OU HS [facility] Last Admin: 12/04/16 21:32 Dose: Not Given Ondansetron HCl (Zofran Injection) 8 mg IVPB Q6H PRN PRN Reason: NAUSEA AND/OR VOMITING Potassium Chloride (Potassium Chloride Oral Liquid) 20 meq PEG DAILY [facility] Last Admin: 12/05/16 14:09 Dose: 20 meq Scopolamine HBr (Transderm-Scop -) 1 patch TD Q3D@1000 [facility] Last Admin: 12/04/16 11:04 Dose: 1 patch Senna (Senna -) 2 tab PO HS PRN PRN Reason: CONSTIPATION Tamsulosin HCl (Flomax -) 0.4 mg PO DAILY@0830 [facility] Last Admin: 12/05/16 08:32 Dose: 0.4 mg - Objective Vital Signs: Vital Signs Temperature 98.8 F 12/05/16 15:00 Pulse Rate 80 12/05/16 15:00 Respiratory Rate 20 12/05/16 15:00 Blood Pressure 132/68 12/05/16 15:00 O2 Sat by Pulse Oximetry (%) 97 12/05/16 11:23 Constitutional: Yes: No Distress, Thin Eyes: Yes: WNL HENT: Yes: WNL Neck: Yes: WNL Cardiovascular: Yes: Regular Rate and Rhythm Respiratory: Yes: Regular Gastrointestinal: Yes: Soft, Other (GT feeding) ...Rectal Exam: Yes: Deferred Genitourinary: No: Anuria Breast(s): Yes: WNL Musculoskeletal: Yes: Muscle Weakness Extremities: Yes: Cool Edema: No Peripheral Pulses WNL: No Peripheral Pulses: Right Dorsalis Pedis: 1+, Left Femoral: 1+ Integumentary: Yes: WNL Wound/Incision: Yes: Well Approximated (abdominal) Psychiatric: Yes: Other Labs: CBC, BMP 12/05/16 06:00 12/05/16 06:00 INR, PTT INR 1.17 (0.82-1.09) H 11/27/16 06:45 Problem List - Problems (1) Diastolic CHF Assessment/Plan: Continue present medications (amlodipine; lisinopril;metoprolol). Continue physical rehabilitation. Code(s): I50.30 - UNSPECIFIED DIASTOLIC (CONGESTIVE) HEART FAILURE (2) Hyperlipidemia Assessment/Plan: On atorvastatin; keep LDL cholesterol < 70 mg/dL. Code(s): E78.5 - HYPERLIPIDEMIA, UNSPECIFIED (3) PSVT (paroxysmal supraventricular tachycardia) Assessment/Plan: On metoprolol. Maintain electrolytes WNL. Maintain hydration. Code(s): I47.1 - SUPRAVENTRICULAR TACHYCARDIA (4) SBO (small bowel obstruction) Assessment/Plan: Nontender abdomen. f/u with surgeon. Increase physical rehabilitation. On PEG feeding. Code(s): K56.69 - OTHER INTESTINAL OBSTRUCTION (5) Small bowel mass Code(s): K63.89 - OTHER SPECIFIED DISEASES OF INTESTINE (6) HTN (hypertension) Assessment/Plan: Better-controlled BP. On metoprolol; can change to ER for better 24 hour coverage and compliance ( once able to again take PO; on PEG presently). On amlodipine; increased to 10 mg daily; BP is now better-controlled. Started lisinopril 2.5 mg daily; may increase as required for HTN, CHF. Code(s): I10 - ESSENTIAL (PRIMARY) HYPERTENSION (7) Weakness Code(s): R53.1 - WEAKNESS (8) Hypothyroid Assessment/Plan: decreased TSH; free T4 mildly elevated. Code(s): E03.9 - HYPOTHYROIDISM, UNSPECIFIED (9) Hypokalemia Assessment/Plan: Keep K+ 4-4.5 (hx PSVT); Keep Mg 2-2.3 (on MgOx). Keep Po4 2.5-3.5. Added lisinopril for HTN, DM. 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 Gastric feeding tube. Code(s): R64 - [place]
[2016-12-05] MEDS: MIRTAZAPINE 15 MG TABLET (FP) PEG SCH (23:05)
[2016-12-05] MEDS: TRAVATAN 0.004% OU SCH (23:06)
[2016-12-05] MEDS: EYE OU SCH (23:06)
[2016-12-06] MEDS ORDERED: PIPERACILLIN/TAZOBACTAM 3.375 GM VIAL IVPB ONE ×2 (01:17→09:36)
[2016-12-06] MEDS ORDERED: DEXTROSE 5%-WATER - 50 ML IVPB ONE ×2 (01:17→09:36)
[2016-12-06] MEDS: PIPERACILLIN/TAZOB 3.375 GM 3.375 GM in DEXTROSE 5%-WATER - 50 ML IVPB SCH (01:47)
[2016-12-06] MEDS: CLOTRIMAZOLE 10 MG TROCHE (FP) PO SCH ×5 (07:06→22:58)
[2016-12-06] MEDS: INSULIN SLIDING SCALE (NOVOLOG) 1 VIAL SQ SCH ×2 (07:09→17:47)
[2016-12-06] MEDS ORDERED: PT OWN MED DRAWER 7, Y5N ONE (07:14)
[2016-12-06] MEDS: TAMSULOSIN HCL 0.4 MG CAP.ER.24H (FP) PO SCH (08:46)
--- NOTE | 2016-12-06 09:36 | PN ---
Progress Note (short form) - Note Progress Note: awake and alert NAD Vital Signs Period Temp Pulse Resp BP Sys/Hernandez Pulse Ox Last 24 Hr 98.1 F-98.8 F 80-97 18-20 132-147/68-81 97-97 cor-rrr llungs decreased bs at bases abd soft, +GT- site no erythema ext no edema CBC, BMP 12/05/16 06:00 12/05/16 06:00 Microbiology 11/29/16 11:16 Blood - Peripheral Venous Blood Culture - Final NO GROWTH AFTER 5 DAYS INCUBATION 11/29/16 11:15 Blood - Peripheral Venous Blood Culture - Final NO GROWTH AFTER 5 DAYS INCUBATION 11/29/16 14:10 Urine - Urine Vieyra Urine Culture - Final Vr Ec Faecium 11/04/16 16:20 Blood - Peripheral Venous Blood Culture - Final NO GROWTH AFTER 5 DAYS INCUBATION 11/04/16 16:15 Blood - Peripheral Venous Blood Culture - Final NO GROWTH AFTER 5 DAYS INCUBATION 11/01/16 12:15 Blood - Peripheral Venous Blood Culture - Final NO GROWTH AFTER 5 DAYS INCUBATION 11/02/16 02:00 Sputum - Expectorated Gram Stain - Final 11/02/16 02:00 Sputum - Expectorated Sputum Culture - Final NORMAL RESPIRATORY CONG 11/01/16 12:15 Blood - Peripheral Venous Blood Culture - Final Klebsiella Pneumoniae 11/01/16 17:15 Urine - Urine Vieyra Urine Culture - Final NO GROWTH OBTAINED 10/28/16 14:35 Blood - Peripheral Venous Blood Culture - Final NO GROWTH AFTER 5 DAYS INCUBATION 10/28/16 14:30 Blood - Peripheral Venous Blood Culture - Final NO GROWTH AFTER 5 DAYS INCUBATION 10/31/16 00:01 Urine - Urine - Catheterized Urine Culture - Final NO GROWTH OBTAINED a/p pneumonia -s/p 7 days zosyn, will d/c today 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
[2016-12-06] MEDS: LISINOPRIL 5 MG TABLET (FP) PEG SCH (09:42)
[2016-12-06] MEDS: amLODIPine BESYLATE 10 MG TABLET (FP) PEG SCH (09:43)
[2016-12-06] MEDS: METOPROLOL TARTRATE 50 MG TABLET (FP) PEG SCH ×2 (09:43→22:58)
[2016-12-06] MEDS: MAGNESIUM OXIDE 400 MG TABLET (FP) PEG SCH ×2 (09:43→22:58)
[2016-12-06] MEDS: POTASSIUM CHLORIDE ORAL LIQUID 20 MEQ/15 ML PEG SCH (09:45)
[2016-12-06] MEDS: HEPARIN NA (PORCINE) 5,000 UNITS/ML 1ML VIAL SQ SCH ×2 (09:45→22:58)
[2016-12-06] MEDS: MULTIVIT-MINERALS 236 ML ML GT SCH (09:46)
[2016-12-06] MEDS: DOCUSATE NA 100 MG/10 ML UNIT-DOSE CUPS GT SCH ×2 (09:47→22:58)
[2016-12-06] MEDS: METOCLOPRAMIDE HCL 5 MG/5 ML UNIT DOSE CUP GT PRN (09:48)
[2016-12-06] MEDS: ARFORMOTEROL TARTRATE 15 MCG/2 ML VIAL NEB SCH ×2 (09:58→22:26)
--- NOTE | 2016-12-06 12:06 | PN ---
Progress Note, Physician History of Present Illness: Pt with decreased cough, minimum white sputum; no SOB Pt without N, V; pt has no abdominal pain; pt with lose stool yesterday and today Pt w/o fever, chills. Pt w/o CP, SOB, Palp. - Current Medication List Current Medications: Active Medications Acetaminophen (Tylenol Oral Solution -) 650 mg GT Q6H PRN PRN Reason: FEVER OR PAIN Last Admin: 12/05/16 14:09 Dose: 650 mg Amlodipine Besylate (Norvasc -) 10 mg PEG DAILY [facility] Last Admin: 12/06/16 09:43 Dose: 10 mg Arformoterol Tartrate (Brovana (Restricted To Pulmonology/Resp) -) 1 amp NEB BID [facility] Last Admin: 12/06/16 09:58 Dose: 1 amp Clotrimazole (Mycelex Miri's -) 10 mg PO 5XD [facility] Last Admin: 12/06/16 09:47 Dose: 10 mg Docusate Sodium (Colace Liquid -) 100 mg GT BID [facility] Last Admin: 12/06/16 09:47 Dose: 100 mg Heparin Sodium (Porcine) (Heparin -) 5,000 unit SQ BID [facility] Last Admin: 12/06/16 09:45 Dose: 5,000 unit Insulin Aspart (Novolog Vial Sliding Scale -) 1 vial SQ BIDAC [facility] PRN Reason: Protocol Last Admin: 12/06/16 07:09 Dose: Not Given Lisinopril (Prinivil) 2.5 mg PEG DAILY [facility] Last Admin: 12/06/16 09:42 Dose: 2.5 mg Magnesium Oxide (Mag-Ox -) 400 mg PEG BID [facility] Last Admin: 12/06/16 09:43 Dose: 400 mg Metoclopramide HCl (Reglan Oral Solution -) 10 mg GT TIDAC PRN PRN Reason: NAUSEA AND/OR VOMITING Last Admin: 12/06/16 09:48 Dose: 10 mg Metoprolol Tartrate (Lopressor -) 50 mg PEG BID [facility] Last Admin: 12/06/16 09:43 Dose: 50 mg Mirtazapine (Remeron -) 15 mg PEG HS [facility] Last Admin: 12/05/16 23:05 Dose: 15 mg Systane Ultra Eye (Drops) 1 each OU BID [facility] Last Admin: 12/05/16 23:05 Dose: 1 each Travatan 0.004% Eye (Drops) 1 each OU HS [facility] Last Admin: 12/05/16 23:06 Dose: Not Given Ondansetron HCl (Zofran Injection) 8 mg IVPB Q6H PRN PRN Reason: NAUSEA AND/OR VOMITING Potassium Chloride (Potassium Chloride Oral Liquid) 20 meq PEG DAILY [facility] Last Admin: 12/06/16 09:45 Dose: 20 meq Scopolamine HBr (Transderm-Scop -) 1 patch TD Q3D@1000 [facility] Last Admin: 12/04/16 11:04 Dose: 1 patch Senna (Senna -) 2 tab PO HS PRN PRN Reason: CONSTIPATION Tamsulosin HCl (Flomax -) 0.4 mg PO DAILY@0830 [facility] Last Admin: 12/06/16 08:46 Dose: 0.4 mg - Objective Vital Signs: Vital Signs Temperature 98.6 F 12/05/16 22:00 Pulse Rate 91 H 12/06/16 09:58 Respiratory Rate 18 12/05/16 22:00 Blood Pressure 147/81 12/05/16 22:00 O2 Sat by Pulse Oximetry (%) 94 L 12/06/16 09:58 Constitutional: Yes: No Distress, Calm Cardiovascular: Yes: Regular Rate and Rhythm, S1, S2 Respiratory: Yes: Regular, CTA Bilaterally. No: Rales Gastrointestinal: Yes: Normal Bowel Sounds, Soft. No: Tenderness Edema: No Neurological: Yes: Alert, Oriented Labs: CBC, BMP 12/05/16 06:00 12/05/16 06:00 INR, PTT INR 1.17 (0.82-1.09) H 11/27/16 06:45 Problem List - Problems (1) Small bowel mass Code(s): K63.89 - OTHER SPECIFIED DISEASES OF INTESTINE (2) SBO (small bowel obstruction) Code(s): K56.69 - OTHER INTESTINAL OBSTRUCTION (3) Pneumatosis intestinalis Code(s): K63.89 - OTHER SPECIFIED DISEASES OF INTESTINE (4) CHF (congestive heart failure) Code(s): I50.9 - HEART FAILURE, UNSPECIFIED (5) CVA (cerebral infarction) Code(s): I63.9 - CEREBRAL INFARCTION, UNSPECIFIED (6) Chronic obstructive pulmonary disease Code(s): J44.9 - CHRONIC OBSTRUCTIVE PULMONARY DISEASE, UNSPECIFIED (7) Hyperlipidemia Code(s): E78.5 - HYPERLIPIDEMIA, UNSPECIFIED (8) Hypokalemia due to inadequate potassium intake Code(s): E87.6 - HYPOKALEMIA (9) Hypophosphatemia Code(s): E83.39 - OTHER DISORDERS OF PHOSPHORUS METABOLISM (10) HTN (hypertension) Code(s): I10 - ESSENTIAL (PRIMARY) HYPERTENSION (11) Hypomagnesemia Code(s): E83.42 - HYPOMAGNESEMIA (12) Bandemia Code(s): D72.825 - BANDEMIA (13) Pneumonia Code(s): J18.9 - PNEUMONIA, UNSPECIFIED ORGANISM (14) Hypoalbuminemia Code(s): E88.09 - OTH DISORDERS OF PLASMA-PROTEIN METABOLISM, NEC (15) Elevated LFTs Code(s): R79.89 - OTHER SPECIFIED ABNORMAL FINDINGS OF BLOOD CHEMISTRY (16) Urinary retention Code(s): R33.9 - RETENTION OF URINE, UNSPECIFIED (17) Abdominal aneurysm Code(s): I71.4 - ABDOMINAL AORTIC ANEURYSM, WITHOUT RUPTURE (18) Depression Code(s): F32.9 - MAJOR DEPRESSIVE DISORDER, SINGLE EPISODE, UNSPECIFIED (19) Dysphagia Code(s): R13.10 - DYSPHAGIA, UNSPECIFIED Assessment/Plan GI and surgical f/u appreciated Pt was transferred from ICU to Telemetry to medical floor Pt removed NGT. Pt diet was advanced but has poor PO intake. Pt off TPN. Pt is s/p MBS, + for silent aspiration (diet was changed). Pt with Hx/o + BCX, LLL PNA, s/p IV abtx Pt wants his to make medical decisions if he cannot; both daughters agree with pt. All family's questions were answered. Pt is hemodynamically stable. Pt. is s/p left PICC Line placement; pt removed it. I encourage PO intake, OOBTC Started Remeron (dose was increased), MVI. Swallow evaluation appreciated. S/p PEG placement Aspiration PNA, pt improving;per ID: today (not yesterday) is the last day of abtx. Hypernatremia- TF rate and water were adjusted with Mrs Theresa Tsai ( Manufacturing Clerk) Diarrhea- to send C Diff. BMP now and in AM DC planning Prognosis: reserved. Case was d/w pt's nurse.
[2016-12-06] MEDS: LACTOBACILLUS ACIDOPHILUS 1 EACH TAB (FP) PO SCH ×2 (12:30→22:58)
[2016-12-06 13:43] LABS: ANION GAP 5 (8-16); CALCIUM 10.3 mg/dL (8.5-10.1); CO2 34 mmol/L (21-32); CREATININE 0.7 mg/dL (0.7-1.3); GLUCOSE,RANDOM 122 mg/dL (74-106)
[2016-12-06] MEDS ORDERED: DEXTROSE 5%-WATER - 500 ML IV ONE (19:00)
[2016-12-06] MEDS: SYSTANE ULTRA EYE DROPS OU SCH ×2 (19:46→22:58)
[2016-12-06] MEDS: EYE OU SCH (22:58)
[2016-12-06] MEDS: MIRTAZAPINE 15 MG TABLET (FP) PEG SCH (22:58)
[2016-12-06] MEDS: TRAVATAN 0.004% OU SCH (22:58)
--- NOTE | 2016-12-07 04:54 | PN ---
Progress Note, Physician Chief Complaint: Pt denies chest pain or dyspnea; no abdominal pain. History of Present Illness: 81-year-old black male with no history of abdominal surgery presents to the emergency department complaining of periumbilical 6/10 sharp nonradiating intermittent discomfort with nausea no vomiting, fever, chills, chest pain, shortness of breath, flank pains, urinary symptoms. There are no alleviating or exacerbating factors. Last bowel movement 4 days ago. - Current Medication List Current Medications: Active Medications Acetaminophen (Tylenol Oral Solution -) 650 mg GT Q6H PRN PRN Reason: FEVER OR PAIN Last Admin: 12/05/16 14:09 Dose: 650 mg Amlodipine Besylate (Norvasc -) 10 mg PEG DAILY [facility] Last Admin: 12/06/16 09:43 Dose: 10 mg Arformoterol Tartrate (Brovana (Restricted To Pulmonology/Resp) -) 1 amp NEB BID [facility] Last Admin: 12/06/16 22:26 Dose: 1 amp Clotrimazole (Mycelex Miri's -) 10 mg PO 5XD [facility] Last Admin: 12/06/16 22:58 Dose: 10 mg Docusate Sodium (Colace Liquid -) 100 mg GT BID [facility] Last Admin: 12/06/16 22:58 Dose: Not Given Heparin Sodium (Porcine) (Heparin -) 5,000 unit SQ BID [facility] Last Admin: 12/06/16 22:58 Dose: 5,000 unit Dextrose (D5w -) 500 mls @ 50 mls/hr IV ONCE ONE Stop: 12/07/16 04:59 Last Admin: 12/06/16 21:00 Dose: 50 mls/hr Insulin Aspart (Novolog Vial Sliding Scale -) 1 vial SQ BIDAC [facility] PRN Reason: Protocol Last Admin: 12/06/16 17:47 Dose: 2 units Lactobacillus Acidophilus (Bacid -) 1 tab PO BID [facility] Last Admin: 12/06/16 22:58 Dose: 1 tab Lisinopril (Prinivil) 2.5 mg PEG DAILY [facility] Last Admin: 12/06/16 09:42 Dose: 2.5 mg Magnesium Oxide (Mag-Ox -) 400 mg PEG BID [facility] Last Admin: 12/06/16 22:58 Dose: 400 mg Metoclopramide HCl (Reglan Oral Solution -) 10 mg GT TIDAC PRN PRN Reason: NAUSEA AND/OR VOMITING Last Admin: 12/06/16 09:48 Dose: 10 mg Metoprolol Tartrate (Lopressor -) 50 mg PEG BID [facility] Last Admin: 12/06/16 22:58 Dose: 50 mg Mirtazapine (Remeron -) 15 mg PEG HS [facility] Last Admin: 12/06/16 22:58 Dose: 15 mg Systane Ultra Eye (Drops) 1 each OU BID [facility] Last Admin: 12/06/16 22:58 Dose: 1 each Travatan 0.004% Eye (Drops) 1 each OU HS [facility] Last Admin: 12/06/16 22:58 Dose: Not Given Ondansetron HCl (Zofran Injection) 8 mg IVPB Q6H PRN PRN Reason: NAUSEA AND/OR VOMITING Potassium Chloride (Potassium Chloride Oral Liquid) 20 meq PEG DAILY [facility] Last Admin: 12/06/16 09:45 Dose: 20 meq Scopolamine HBr (Transderm-Scop -) 1 patch TD Q3D@1000 [facility] Last Admin: 12/04/16 11:04 Dose: 1 patch Senna (Senna -) 2 tab PO HS PRN PRN Reason: CONSTIPATION Tamsulosin HCl (Flomax -) 0.4 mg PO DAILY@0830 [facility] Last Admin: 12/06/16 08:46 Dose: 0.4 mg - Objective Vital Signs: Vital Signs Temperature 97.9 F 12/06/16 22:00 Pulse Rate 90 12/06/16 22:00 Respiratory Rate 18 12/06/16 22:00 Blood Pressure 131/75 12/06/16 22:00 O2 Sat by Pulse Oximetry (%) 100 12/06/16 21:00 Constitutional: Yes: Thin Eyes: Yes: WNL Neck: Yes: WNL Cardiovascular: Yes: Regular Rate and Rhythm Respiratory: Yes: Diminished Gastrointestinal: Yes: Soft ...Rectal Exam: Yes: Deferred Genitourinary: Yes: Vieyra Present (chronic vieyra). No: Anuria Musculoskeletal: Yes: Muscle Weakness Extremities: Yes: Cool Edema: No Peripheral Pulses WNL: Yes Integumentary: Yes: WNL Wound/Incision: Yes: Well Approximated, Other (GT site without erythema) Psychiatric: Yes: Alert Labs: CBC, BMP 12/05/16 06:00 12/06/16 12:45 INR, PTT INR 1.17 (0.82-1.09) H 11/27/16 06:45 Problem List - Problems (1) Diastolic CHF Assessment/Plan: Continue present medications (amlodipine; lisinopril;metoprolol). Continue physical rehabilitation. Finishing 7 day antibiotics for pneumonia. Code(s): I50.30 - UNSPECIFIED DIASTOLIC (CONGESTIVE) HEART FAILURE (2) Hyperlipidemia Assessment/Plan: On atorvastatin; keep LDL cholesterol < 70 mg/dL. Code(s): E78.5 - HYPERLIPIDEMIA, UNSPECIFIED (3) PSVT (paroxysmal supraventricular tachycardia) Assessment/Plan: On metoprolol. Maintain electrolytes WNL. Maintain hydration. Code(s): I47.1 - SUPRAVENTRICULAR TACHYCARDIA (4) SBO (small bowel obstruction) Assessment/Plan: Nontender abdomen. Increase physical rehabilitation. On G-tube feeding. Code(s): K56.69 - OTHER INTESTINAL OBSTRUCTION (5) Small bowel mass Code(s): K63.89 - OTHER SPECIFIED DISEASES OF INTESTINE (6) HTN (hypertension) Assessment/Plan: Better-controlled BP. On metoprolol; can change to ER for better 24 hour coverage and compliance ( once able to again take PO; on PEG presently). On amlodipine; increased to 10 mg daily; BP is now better-controlled. Started lisinopril 2.5 mg daily; may increase as required for HTN, CHF. Code(s): I10 - ESSENTIAL (PRIMARY) HYPERTENSION (7) Weakness Code(s): R53.1 - WEAKNESS (8) Hypothyroid Assessment/Plan: decreased TSH; free T4 mildly elevated. 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 Gastric feeding tube. Code(s): R64 - [place]
[2016-12-07] MEDS: CLOTRIMAZOLE 10 MG TROCHE (FP) PO SCH ×5 (07:02→22:06)
[2016-12-07] MEDS: INSULIN SLIDING SCALE (NOVOLOG) 1 VIAL SQ SCH ×2 (07:02→17:55)
[2016-12-07 08:23] LABS: ANION GAP 5 (8-16); CALCIUM 10.2 mg/dL (8.5-10.1); CO2 36 mmol/L (21-32); CREATININE 0.5 mg/dL (0.7-1.3); GLUCOSE,RANDOM 109 mg/dL (74-106)
[2016-12-07] MEDS: ARFORMOTEROL TARTRATE 15 MCG/2 ML VIAL NEB SCH ×2 (10:18→21:36)
--- NOTE | 2016-12-07 11:02 | PN ---
Progress Note, Physician History of Present Illness: 81 year old man with a history of HTN, HLD, COPD, CVA, AAA admitted with abdominal discomfort and constipation concerning for SBO. Pt seen and examined today in nad. He states that he had multiple small BM's yesterday and overnight. denies any current abd pain. denies chest pain, sob, palpitations. no pnd, orthopnea, or LE edema. NG tube in place. PMH LE angio 02/21/2015 Dr. Alcazar Left EIA/[employer] DCB 08/10/2014 Dr Aclazar PCI LCx 09/20/2014 Dr Alcazar Medical History Reviewed Condition Date Treating Physician Comments Claudication, intermittent HTN Hyperlipidemia TIA/CVA - Current Medication List Current Medications: Active Medications Acetaminophen (Tylenol Oral Solution -) 650 mg GT Q6H PRN PRN Reason: FEVER OR PAIN Last Admin: 12/05/16 14:09 Dose: 650 mg Amlodipine Besylate (Norvasc -) 10 mg PEG DAILY [facility] Last Admin: 12/06/16 09:43 Dose: 10 mg Arformoterol Tartrate (Brovana (Restricted To Pulmonology/Resp) -) 1 amp NEB BID [facility] Last Admin: 12/07/16 10:18 Dose: 1 amp Clotrimazole (Mycelex Miri's -) 10 mg PO 5XD [facility] Last Admin: 12/07/16 07:02 Dose: 10 mg Docusate Sodium (Colace Liquid -) 100 mg GT BID [facility] Last Admin: 12/06/16 22:58 Dose: Not Given Heparin Sodium (Porcine) (Heparin -) 5,000 unit SQ BID [facility] Last Admin: 12/06/16 22:58 Dose: 5,000 unit Insulin Aspart (Novolog Vial Sliding Scale -) 1 vial SQ BIDAC [facility] PRN Reason: Protocol Last Admin: 12/07/16 07:02 Dose: Not Given Lactobacillus Acidophilus (Bacid -) 1 tab PO BID [facility] Last Admin: 12/06/16 22:58 Dose: 1 tab Lisinopril (Prinivil) 2.5 mg PEG DAILY [facility] Last Admin: 12/06/16 09:42 Dose: 2.5 mg Magnesium Oxide (Mag-Ox -) 400 mg PEG BID [facility] Last Admin: 12/06/16 22:58 Dose: 400 mg Metoclopramide HCl (Reglan Oral Solution -) 10 mg GT TIDAC PRN PRN Reason: NAUSEA AND/OR VOMITING Last Admin: 12/06/16 09:48 Dose: 10 mg Metoprolol Tartrate (Lopressor -) 50 mg PEG BID [facility] Last Admin: 12/06/16 22:58 Dose: 50 mg Mirtazapine (Remeron -) 15 mg PEG HS [facility] Last Admin: 12/06/16 22:58 Dose: 15 mg Systane Ultra Eye (Drops) 1 each OU BID [facility] Last Admin: 12/06/16 22:58 Dose: 1 each Travatan 0.004% Eye (Drops) 1 each OU HS [facility] Last Admin: 12/06/16 22:58 Dose: Not Given Ondansetron HCl (Zofran Injection) 8 mg IVPB Q6H PRN PRN Reason: NAUSEA AND/OR VOMITING Potassium Chloride (Potassium Chloride Oral Liquid) 20 meq PEG DAILY [facility] Last Admin: 12/06/16 09:45 Dose: 20 meq Scopolamine HBr (Transderm-Scop -) 1 patch TD Q3D@1000 [facility] Last Admin: 12/04/16 11:04 Dose: 1 patch Senna (Senna -) 2 tab PO HS PRN PRN Reason: CONSTIPATION Tamsulosin HCl (Flomax -) 0.4 mg PO DAILY@0830 [facility] Last Admin: 12/06/16 08:46 Dose: 0.4 mg - Objective Vital Signs: Vital Signs Temperature 97.1 F L 12/07/16 08:16 Pulse Rate 86 12/07/16 10:17 Respiratory Rate 18 12/07/16 08:16 Blood Pressure 129/77 12/07/16 08:16 O2 Sat by Pulse Oximetry (%) 97 12/07/16 10:17 Eyes: Yes: WNL, Conjunctiva Clear, EOM Intact HENT: Yes: WNL, Atraumatic, Normocephalic Neck: Yes: WNL, Supple, Trachea Midline Cardiovascular: Yes: WNL, Regular Rate and Rhythm Respiratory: Yes: WNL, Regular, CTA Bilaterally Gastrointestinal: Yes: WNL, Normal Bowel Sounds Genitourinary: Yes: WNL Musculoskeletal: Yes: WNL Extremities: Yes: WNL Edema: No Integumentary: Yes: WNL Neurological: Yes: WNL, Alert, Oriented ...Motor Strength: WNL Psychiatric: Yes: WNL Labs: CBC, BMP 12/05/16 06:00 12/07/16 07:36 INR, PTT INR 1.17 (0.82-1.09) H 11/27/16 06:45 Assessment/Plan - Problems (1) Diastolic CHF Assessment/Plan: Continue present medications (amlodipine; lisinopril;metoprolol). Continue physical rehabilitation. Finishing 7 day antibiotics for pneumonia. Code(s): I50.30 - UNSPECIFIED DIASTOLIC (CONGESTIVE) HEART FAILURE (2) Hyperlipidemia Assessment/Plan: On atorvastatin; keep LDL cholesterol < 70 mg/dL. Code(s): E78.5 - HYPERLIPIDEMIA, UNSPECIFIED (3) PSVT (paroxysmal supraventricular tachycardia) Assessment/Plan: On metoprolol. Maintain electrolytes WNL. Maintain hydration. Code(s): I47.1 - SUPRAVENTRICULAR TACHYCARDIA (4) SBO (small bowel obstruction) Assessment/Plan: Nontender abdomen. Increase physical rehabilitation. On G-tube feeding. Code(s): K56.69 - OTHER INTESTINAL OBSTRUCTION (5) Small bowel mass Code(s): K63.89 - OTHER SPECIFIED DISEASES OF INTESTINE (6) HTN (hypertension) Assessment/Plan: Better-controlled BP. On metoprolol; can change to ER for better 24 hour coverage and compliance ( once able to again take PO; on PEG presently). On amlodipine; increased to 10 mg daily; BP is now better-controlled. Started lisinopril 2.5 mg daily; may increase as required for HTN, CHF. Code(s): I10 - ESSENTIAL (PRIMARY) HYPERTENSION (7) Weakness Code(s): R53.1 - WEAKNESS (8) Hypothyroid Assessment/Plan: decreased TSH; free T4 mildly elevated. 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 Gastric feeding tube. Code(s): R64 - [place]
--- NOTE | 2016-12-07 11:03 | PN ---
Progress Note (short form) - Note Progress Note: awake and alert NAD confused no complaints Vital Signs Period Temp Pulse Resp BP Sys/Hernandez Pulse Ox Last 24 Hr 97.1 F-98.4 F 86-90 18-20 121-150/67-88 97-100 cor-rrr lungs scattered rhonchi abd soft,nt +GT ext no edema CBC, BMP 12/05/16 06:00 12/07/16 07:36 a/p pneumonia -stable off zosyn chronic vieyra for urinary retention- vre colonization- no need to treat s/p small bowel surgery please call back if needed Problem List - Problems (1) Pneumatosis intestinalis Code(s): K63.89 - OTHER SPECIFIED DISEASES OF INTESTINE (2) SBO (small bowel obstruction) Code(s): K56.69 - OTHER INTESTINAL OBSTRUCTION
--- NOTE | 2016-12-07 11:14 | PN ---
Progress Note (short form) - Note Progress Note: PULMONARY Denies shortness of breath, cough or wheezing. No fevers recorded. Last Vital Signs Temp Pulse Resp BP Pulse Ox 97.1 F L 86 18 129/77 97 12/07/16 08:16 12/07/16 10:17 12/07/16 08:16 12/07/16 08:16 12/07/16 10:17 Gen: NAD at rest Heart: RRR Lung: decreased breath sounds at the bases Abd: abdominal binder in place Ext: no edema CBC, BMP 12/05/16 06:00 12/07/16 07:36 Active Medications Acetaminophen (Tylenol Oral Solution -) 650 mg GT Q6H PRN PRN Reason: FEVER OR PAIN Last Admin: 12/05/16 14:09 Dose: 650 mg Amlodipine Besylate (Norvasc -) 10 mg PEG DAILY [facility] Last Admin: 12/06/16 09:43 Dose: 10 mg Arformoterol Tartrate (Brovana (Restricted To Pulmonology/Resp) -) 1 amp NEB BID [facility] Last Admin: 12/07/16 10:18 Dose: 1 amp Clotrimazole (Mycelex Miri's -) 10 mg PO 5XD [facility] Last Admin: 12/07/16 07:02 Dose: 10 mg Docusate Sodium (Colace Liquid -) 100 mg GT BID [facility] Last Admin: 12/06/16 22:58 Dose: Not Given Heparin Sodium (Porcine) (Heparin -) 5,000 unit SQ BID [facility] Last Admin: 12/06/16 22:58 Dose: 5,000 unit Insulin Aspart (Novolog Vial Sliding Scale -) 1 vial SQ BIDAC [facility] PRN Reason: Protocol Last Admin: 12/07/16 07:02 Dose: Not Given Lactobacillus Acidophilus (Bacid -) 1 tab PO BID [facility] Last Admin: 12/06/16 22:58 Dose: 1 tab Lisinopril (Prinivil) 2.5 mg PEG DAILY [facility] Last Admin: 12/06/16 09:42 Dose: 2.5 mg Magnesium Oxide (Mag-Ox -) 400 mg PEG BID [facility] Last Admin: 12/06/16 22:58 Dose: 400 mg Metoclopramide HCl (Reglan Oral Solution -) 10 mg GT TIDAC PRN PRN Reason: NAUSEA AND/OR VOMITING Last Admin: 12/06/16 09:48 Dose: 10 mg Metoprolol Tartrate (Lopressor -) 50 mg PEG BID [facility] Last Admin: 12/06/16 22:58 Dose: 50 mg Mirtazapine (Remeron -) 15 mg PEG HS [facility] Last Admin: 12/06/16 22:58 Dose: 15 mg Systane Ultra Eye (Drops) 1 each OU BID [facility] Last Admin: 12/06/16 22:58 Dose: 1 each Travatan 0.004% Eye (Drops) 1 each OU HS [facility] Last Admin: 12/06/16 22:58 Dose: Not Given Ondansetron HCl (Zofran Injection) 8 mg IVPB Q6H PRN PRN Reason: NAUSEA AND/OR VOMITING Potassium Chloride (Potassium Chloride Oral Liquid) 20 meq PEG DAILY [facility] Last Admin: 12/06/16 09:45 Dose: 20 meq Scopolamine HBr (Transderm-Scop -) 1 patch TD Q3D@1000 [facility] Last Admin: 12/04/16 11:04 Dose: 1 patch Senna (Senna -) 2 tab PO HS PRN PRN Reason: CONSTIPATION Tamsulosin HCl (Flomax -) 0.4 mg PO DAILY@0830 [facility] Last Admin: 12/06/16 08:46 Dose: 0.4 mg A/P Small Bowel Obstruction s/p Ex-lap/SB resection Post Op Ileus Aspiration Pneumonia COPD - antibiotics completed - inhaled bronchodilators - enteral feeds - increase free water - aspiration precautions - DVT prophylaxis
[2016-12-07] MEDS ORDERED: PT OWN MED DRAWER 7, Y5N ONE ×3 (11:29→22:02)
[2016-12-07] MEDS: HEPARIN NA (PORCINE) 5,000 UNITS/ML 1ML VIAL SQ SCH ×2 (11:57→22:06)
[2016-12-07] MEDS: POTASSIUM CHLORIDE ORAL LIQUID 20 MEQ/15 ML PEG SCH (11:57)
[2016-12-07] MEDS: MAGNESIUM OXIDE 400 MG TABLET (FP) PEG SCH ×2 (11:58→22:05)
[2016-12-07] MEDS: TAMSULOSIN HCL 0.4 MG CAP.ER.24H (FP) PO SCH (11:58)
[2016-12-07] MEDS: LISINOPRIL 5 MG TABLET (FP) PEG SCH (11:58)
[2016-12-07] MEDS: amLODIPine BESYLATE 10 MG TABLET (FP) PEG SCH (11:58)
[2016-12-07] MEDS: MULTIVIT-MINERALS 236 ML ML GT SCH (11:59)
[2016-12-07] MEDS: LACTOBACILLUS ACIDOPHILUS 1 EACH TAB (FP) PO SCH ×2 (11:59→22:05)
[2016-12-07] MEDS: DOCUSATE NA 100 MG/10 ML UNIT-DOSE CUPS GT SCH ×2 (12:00→22:06)
[2016-12-07] MEDS: METOPROLOL TARTRATE 50 MG TABLET (FP) PEG SCH ×2 (12:01→22:06)
[2016-12-07] MEDS: SYSTANE ULTRA EYE DROPS OU SCH ×2 (12:02→22:07)
[2016-12-07] MEDS: SCOPOLAMINE HYDROBROMIDE 1 PATCH PATCH.TD72 TD SCH (12:03)
--- NOTE | 2016-12-07 17:20 | PN ---
Progress Note, Physician History of Present Illness: Pt with decreased cough, minimum white sputum; no SOB Pt without N, V; pt has no abdominal pain; pt without lose stool Pt w/o fever, chills. Pt w/o CP, SOB, Palp. - Current Medication List Current Medications: Active Medications Acetaminophen (Tylenol Oral Solution -) 650 mg GT Q6H PRN PRN Reason: FEVER OR PAIN Last Admin: 12/05/16 14:09 Dose: 650 mg Amlodipine Besylate (Norvasc -) 10 mg PEG DAILY [facility] Last Admin: 12/07/16 11:58 Dose: 10 mg Arformoterol Tartrate (Brovana (Restricted To Pulmonology/Resp) -) 1 amp NEB BID [facility] Last Admin: 12/07/16 10:18 Dose: 1 amp Clotrimazole (Mycelex Miri's -) 10 mg PO 5XD [facility] Last Admin: 12/07/16 16:01 Dose: 10 mg Docusate Sodium (Colace Liquid -) 100 mg GT BID [facility] Last Admin: 12/07/16 12:00 Dose: 100 mg Heparin Sodium (Porcine) (Heparin -) 5,000 unit SQ BID [facility] Last Admin: 12/07/16 11:57 Dose: 5,000 unit Insulin Aspart (Novolog Vial Sliding Scale -) 1 vial SQ BIDAC [facility] PRN Reason: Protocol Last Admin: 12/07/16 07:02 Dose: Not Given Lactobacillus Acidophilus (Bacid -) 1 tab PO BID [facility] Last Admin: 12/07/16 11:59 Dose: 1 tab Lisinopril (Prinivil) 2.5 mg PEG DAILY [facility] Last Admin: 12/07/16 11:58 Dose: 2.5 mg Magnesium Oxide (Mag-Ox -) 400 mg PEG BID [facility] Last Admin: 12/07/16 11:58 Dose: 400 mg Metoclopramide HCl (Reglan Oral Solution -) 10 mg GT TIDAC PRN PRN Reason: NAUSEA AND/OR VOMITING Last Admin: 12/06/16 09:48 Dose: 10 mg Metoprolol Tartrate (Lopressor -) 50 mg PEG BID [facility] Last Admin: 12/07/16 12:01 Dose: 50 mg Mirtazapine (Remeron -) 15 mg PEG HS [facility] Last Admin: 12/06/16 22:58 Dose: 15 mg Systane Ultra Eye (Drops) 1 each OU BID [facility] Last Admin: 12/07/16 12:02 Dose: 1 each Travatan 0.004% Eye (Drops) 1 each OU HS [facility] Last Admin: 12/06/16 22:58 Dose: Not Given Ondansetron HCl (Zofran Injection) 8 mg IVPB Q6H PRN PRN Reason: NAUSEA AND/OR VOMITING Potassium Chloride (Potassium Chloride Oral Liquid) 20 meq PEG DAILY [facility] Last Admin: 12/07/16 11:57 Dose: 20 meq Scopolamine HBr (Transderm-Scop -) 1 patch TD Q3D@1000 [facility] Last Admin: 12/07/16 12:03 Dose: 1 patch Senna (Senna -) 2 tab PO HS PRN PRN Reason: CONSTIPATION Tamsulosin HCl (Flomax -) 0.4 mg PO DAILY@0830 [facility] Last Admin: 12/07/16 11:58 Dose: 0.4 mg - Objective Vital Signs: Vital Signs Temperature 98.4 F 12/07/16 15:25 Pulse Rate 88 12/07/16 15:25 Respiratory Rate 20 12/07/16 15:25 Blood Pressure 129/77 12/07/16 08:16 O2 Sat by Pulse Oximetry (%) 97 12/07/16 10:17 Constitutional: Yes: No Distress, Calm Respiratory: Yes: Regular, CTA Bilaterally. No: Rales Gastrointestinal: Yes: Normal Bowel Sounds, Soft. No: Tenderness Edema: No Neurological: Yes: Alert, Oriented Labs: CBC, BMP 12/05/16 06:00 12/07/16 07:36 INR, PTT INR 1.17 (0.82-1.09) H 11/27/16 06:45 Problem List - Problems (1) Small bowel mass Code(s): K63.89 - OTHER SPECIFIED DISEASES OF INTESTINE (2) SBO (small bowel obstruction) Code(s): K56.69 - OTHER INTESTINAL OBSTRUCTION (3) Pneumatosis intestinalis Code(s): K63.89 - OTHER SPECIFIED DISEASES OF INTESTINE (4) CHF (congestive heart failure) Code(s): I50.9 - HEART FAILURE, UNSPECIFIED (5) CVA (cerebral infarction) Code(s): I63.9 - CEREBRAL INFARCTION, UNSPECIFIED (6) Chronic obstructive pulmonary disease Code(s): J44.9 - CHRONIC OBSTRUCTIVE PULMONARY DISEASE, UNSPECIFIED (7) Hyperlipidemia Code(s): E78.5 - HYPERLIPIDEMIA, UNSPECIFIED (8) Hypokalemia due to inadequate potassium intake Code(s): E87.6 - HYPOKALEMIA (9) Hypophosphatemia Code(s): E83.39 - OTHER DISORDERS OF PHOSPHORUS METABOLISM (10) HTN (hypertension) Code(s): I10 - ESSENTIAL (PRIMARY) HYPERTENSION (11) Hypomagnesemia Code(s): E83.42 - HYPOMAGNESEMIA (12) Bandemia Code(s): D72.825 - BANDEMIA (13) Pneumonia Code(s): J18.9 - PNEUMONIA, UNSPECIFIED ORGANISM (14) Hypoalbuminemia Code(s): E88.09 - OTH DISORDERS OF PLASMA-PROTEIN METABOLISM, NEC (15) Elevated LFTs Code(s): R79.89 - OTHER SPECIFIED ABNORMAL FINDINGS OF BLOOD CHEMISTRY (16) Urinary retention Code(s): R33.9 - RETENTION OF URINE, UNSPECIFIED (17) Abdominal aneurysm Code(s): I71.4 - ABDOMINAL AORTIC ANEURYSM, WITHOUT RUPTURE (18) Depression Code(s): F32.9 - MAJOR DEPRESSIVE DISORDER, SINGLE EPISODE, UNSPECIFIED (19) Dysphagia Code(s): R13.10 - DYSPHAGIA, UNSPECIFIED Assessment/Plan GI and surgical f/u appreciated Pt was transferred from ICU to Telemetry to medical floor Pt removed NGT. Pt diet was advanced but has poor PO intake. Pt off TPN. Pt is s/p MBS, + for silent aspiration (diet was changed). Pt with Hx/o + BCX, LLL PNA, s/p IV abtx Pt wants his to make medical decisions if he cannot; both daughters agree with pt. All family's questions were answered. Pt is hemodynamically stable. Pt. is s/p left PICC Line placement; pt removed it. I encourage PO intake, OOBTC Started Remeron (dose was increased), MVI. Swallow evaluation appreciated. S/p PEG placement Aspiration PNA, pt improving;per ID: today (not yesterday) is the last day of abtx. Hypernatremia- TF rate and water were adjusted with Mrs Cardenas Eulalio ( [employer]); to increase Water rate C Diff. negative BMP AM DC planning Prognosis: reserved. Case was d/w pt's nurse, pt's (at bed side)
[2016-12-07] MEDS: MIRTAZAPINE 15 MG TABLET (FP) PEG SCH (22:06)
[2016-12-07] MEDS: TRAVATAN 0.004% OU SCH (22:09)
[2016-12-07] MEDS: EYE OU SCH (22:09)
[2016-12-08] MEDS ORDERED: PT OWN MED DRAWER 7, Y5N ONE ×2 (05:26→09:10)
[2016-12-08] MEDS: CLOTRIMAZOLE 10 MG TROCHE (FP) PO SCH ×4 (06:10→17:53)
[2016-12-08] MEDS: INSULIN SLIDING SCALE (NOVOLOG) 1 VIAL SQ SCH (06:10)
[2016-12-08 08:39] LABS: ANION GAP 4 (8-16); CALCIUM 10.4 mg/dL (8.5-10.1); CO2 34 mmol/L (21-32); CREATININE 0.7 mg/dL (0.7-1.3)
[2016-12-08 08:55] LABS: GLUCOSE,RANDOM 41 mg/dL (74-106)
[2016-12-08] MEDS: TAMSULOSIN HCL 0.4 MG CAP.ER.24H (FP) PO SCH (09:23)
[2016-12-08] MEDS: POTASSIUM CHLORIDE ORAL LIQUID 20 MEQ/15 ML PEG SCH (09:23)
[2016-12-08] MEDS: METOPROLOL TARTRATE 50 MG TABLET (FP) PEG SCH (09:23)
[2016-12-08] MEDS: MAGNESIUM OXIDE 400 MG TABLET (FP) PEG SCH (09:23)
[2016-12-08] MEDS: LISINOPRIL 5 MG TABLET (FP) PEG SCH (09:23)
[2016-12-08] MEDS: amLODIPine BESYLATE 10 MG TABLET (FP) PEG SCH (09:23)
[2016-12-08] MEDS: HEPARIN NA (PORCINE) 5,000 UNITS/ML 1ML VIAL SQ SCH (09:24)
[2016-12-08] MEDS: DOCUSATE NA 100 MG/10 ML UNIT-DOSE CUPS GT SCH (09:24)
[2016-12-08] MEDS: MULTIVIT-MINERALS 236 ML ML GT SCH (09:25)
[2016-12-08] MEDS: LACTOBACILLUS ACIDOPHILUS 1 EACH TAB (FP) PO SCH (09:25)
[2016-12-08] MEDS: SYSTANE ULTRA EYE DROPS OU SCH (09:26)
--- NOTE | 2016-12-08 10:09 | PN ---
Progress Note (short form) - Note Progress Note: PULMONARY Denies shortness of breath or cough. No fevers recorded. Last Vital Signs Temp Pulse Resp BP Pulse Ox 97.9 F 85 20 140/82 100 12/08/16 07:03 12/08/16 07:03 12/08/16 07:03 12/08/16 07:03 12/07/16 21:00 Gen: NAD at rest Heart: RRR Lung: decreased breath sounds at the bases Abd: abdominal binder in place Ext: no edema CBC, BMP 12/05/16 06:00 Active Medications Acetaminophen (Tylenol Oral Solution -) 650 mg GT Q6H PRN PRN Reason: FEVER OR PAIN Last Admin: 12/05/16 14:09 Dose: 650 mg Amlodipine Besylate (Norvasc -) 10 mg PEG DAILY [facility] Last Admin: 12/08/16 09:23 Dose: 10 mg Arformoterol Tartrate (Brovana (Restricted To Pulmonology/Resp) -) 1 amp NEB BID [facility] Last Admin: 12/07/16 21:36 Dose: 1 amp Clotrimazole (Mycelex Miri's -) 10 mg PO 5XD [facility] Last Admin: 12/08/16 06:10 Dose: 10 mg Docusate Sodium (Colace Liquid -) 100 mg GT BID [facility] Last Admin: 12/08/16 09:24 Dose: 100 mg Heparin Sodium (Porcine) (Heparin -) 5,000 unit SQ BID [facility] Last Admin: 12/08/16 09:24 Dose: 5,000 unit Insulin Aspart (Novolog Vial Sliding Scale -) [facility] Reason: Protocol Last Admin: 12/08/16 06:10 Dose: 4 units Lactobacillus Acidophilus (Bacid -) 1 tab PO BID [facility] Last Admin: 12/08/16 09:25 Dose: 1 tab Lisinopril (Prinivil) 2.5 mg PEG DAILY [facility] Last Admin: 12/08/16 09:23 Dose: 2.5 mg Magnesium Oxide (Mag-Ox -) 400 mg PEG BID [facility] Last Admin: 12/08/16 09:23 Dose: 400 mg Metoclopramide HCl (Reglan Oral Solution -) 10 mg GT TIDAC PRN PRN Reason: NAUSEA AND/OR VOMITING Last Admin: 12/06/16 09:48 Dose: 10 mg Metoprolol Tartrate (Lopressor -) 50 mg PEG BID [facility] Last Admin: 12/08/16 09:23 Dose: 50 mg Mirtazapine (Remeron -) 15 mg PEG HS [facility] Last Admin: 12/07/16 22:06 Dose: 15 mg Systane Ultra Eye (Drops) 1 each OU BID [facility] Last Admin: 12/08/16 09:26 Dose: 1 each Travatan 0.004% Eye (Drops) 1 each OU HS [facility] Last Admin: 12/07/16 22:09 Dose: Not Given Ondansetron HCl (Zofran Injection) 8 mg IVPB Q6H PRN PRN Reason: NAUSEA AND/OR VOMITING Potassium Chloride (Potassium Chloride Oral Liquid) 20 meq PEG DAILY [facility] Last Admin: 12/08/16 09:23 Dose: 20 meq Scopolamine HBr (Transderm-Scop -) 1 patch TD Q3D@1000 [facility] Last Admin: 12/07/16 12:03 Dose: 1 patch Senna (Senna -) 2 tab PO HS PRN PRN Reason: CONSTIPATION Tamsulosin HCl (Flomax -) 0.4 mg PO DAILY@0830 [facility] Last Admin: 12/08/16 09:23 Dose: 0.4 mg A/P Small Bowel Obstruction s/p Ex-lap/SB resection Post Op Ileus Aspiration Pneumonia COPD - antibiotics completed - inhaled bronchodilators - enteral feeds - increase free water - aspiration precautions - DVT prophylaxis - d/c planning in progress
[2016-12-08] MEDS: ARFORMOTEROL TARTRATE 15 MCG/2 ML VIAL NEB SCH (10:15)
[2016-12-08 11:13] VITALS: PULSE 79
--- NOTE | 2016-12-08 11:45 | PN ---
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 Likely aspirating secretions. Continue holding po trials for now, until pulmonary status improves. MBS can be repeated, when pt is stronger, to initiate PO trials with safety. This can be done in future, if pt improves. Reviewed with nursing.
[2016-12-08 11:53] LABS: MCH 26.8 pg (25.7-33.7); MCHC 31.8 g/dl (32.0-35.9); MEAN CELL VOLUME 84.2 fl (80-96); MEAN PLT VOLUME 8.2 fl (7.5-11.1); PLATELET COUNT 498 K/MM3 (134-434); RDW 15.7 % (11.9-15.9); WHITE BLOOD COUNT 11.9 K/mm3 (4.0-10.0)
[2016-12-08 12:06] VITALS: BP 128/78; TEMP 98
--- NOTE | 2016-12-08 15:54 | DS ---
Physical Examination Vital Signs: Vital Signs Temperature 98 F 12/08/16 10:00 Pulse Rate 79 12/08/16 10:15 Respiratory Rate 20 12/08/16 10:00 Blood Pressure 128/78 12/08/16 10:00 O2 Sat by Pulse Oximetry (%) 93 L 12/08/16 10:15 Findings/Remarks: Pt w/o fever, chills, SOB, CP, palp, abd pain, N, V. Pt still coughs, unchanged. Constitutional: Yes: No Distress, Calm Cardiovascular: Yes: Regular Rate and Rhythm, S1, S2 Respiratory: Yes: Regular, CTA Bilaterally Gastrointestinal: Yes: Normal Bowel Sounds, Soft. No: Tenderness Edema: No Neurological: Yes: Alert, Oriented Labs: CBC, BMP 12/08/16 11:45 12/08/16 09:30 reviewed. This AM Glc was noticed, bedside BGM was "high", twice; repeated BGM was 108, then over 300. Pt is on TF 60 ml/ hr continuously. Discharge Summary Reason For Visit: SMALL BOWEL OBSTRUCTION Current Active Problems Abdominal aneurysm (Acute) Abdominal pain (Acute) Bandemia (Acute) Depression (Acute) Diastolic CHF (Acute) Distended bladder (Acute) Dysphagia (Acute) Elevated LFTs (Acute) Gross hematuria (Acute) Hyperglycemia (Acute) Hyperlipidemia (Acute) Hypoalbuminemia (Acute) Hypokalemia (Acute) Hypokalemia due to inadequate potassium intake (Acute) Hypomagnesemia (Acute) Hypophosphatemia (Acute) Hypothyroid (Acute) Ileus following gastrointestinal surgery (Acute) PSVT (paroxysmal supraventricular tachycardia) (Acute) Pneumatosis intestinalis (Acute) Pneumonia (Acute) SBO (small bowel obstruction) (Acute) Small bowel mass (Acute) Urinary retention (Acute) Urinary retention due to benign prostatic hyperplasia (Acute) Wasting syndrome (Acute) Procedures: Principal: Abd/ Pelvis CT scans. CXRs. Abd XRs. Head CT scan. [facility] Hospital Course: Pt from home, came to ER c/o abd pain, vomitting food, belching and no BM for 4 days; abd/ pelvis CT scan was c/w SBO, NGT was placed with improvement in pt's symptoms. Cardio (Dr. Vela), GI (Dr. Bartolo Holliday) and Surgery (Dr. Carranza ) evaluated pt. Repeated abd/ pelvis CT scan was c/w SBO an pneumatosis intestinalis and possible ischemic colitis and air in portal vein . Pt was transferred to ICU for monitoring. Pt was seen by ID (Dr. Bernal), started on IV abtx. Pt heart rate was high and medications were adjusted. Pt underwent surgery with SB resection and end- to-end anastomosis; ileum mass was resected , pathology came back benign. Pt with abd discomfort on and off post op, poor PO intake, started on Clinimix; repeated abd/ Pelvis CT scan showed SBO; NGT was placed, pt was transferred back to ICU, started on IV abtx. Pt was noticed to have + BCX and LLL PNA. Pt also with electrolytes abnormalities, required frequent replacement; pt was started on TPN. Pt was restarted on PO meds, PO diet was initiated but pt with minimal PO intake. Pt with persistant cough, was jessica by Speach/ Swallow consult (Pati Obregon), ad MBS and noticed to have silent aspiration on this liquids; pt's diet was modified to prevent aspiration. Pt was noticeed to be depressed, Psychiatry consult was called, found pt to be depressed and to lack capacity of decision making. Pt continued to have decreased PO intake (less than 30 %), pt and his (designated HCP) decided to have PEG placemnet. Pt was noticed to have PNA, was started on IV abtx, was made NPO; pt improved slowly . Pt also with urianry retention , failed couple of TOV, had Chavarria since. Pt also with hypernatremia, free water through TF was adjusted, need AM BMP. Pt to be DC'ed to Rehab. Condition: Guarded - Instructions Diet, Activity, Other Instructions: NPO TF Reconsider restarting Plavix, Atorvastatin BMP in AM, for Hypernatremia Referrals: Gini Delcid [Staff Physician] - Tab Hollins MD [Staff Physician] - Disposition: HALF-WAY FACILITY - Home Medications Comprehensive Discharge Medication List: Ambulatory Orders This list might NOT be accurate Atorvastatin Ca [Lipitor] 40 mg PO HS #0 tablet 03/03/13 Amlodipine Besylate [Norvasc -] 5 mg PO DAILY #0 tablet 08/01/13 Clopidogrel Bisulfate [Plavix -] 75 mg PO DAILY #0 tablet 08/01/13 Labetalol HCl [Normodyne -] 200 mg PO BID #0 tablet NS 08/01/13 Furosemide [Lasix -] 20 mg PO DAILY 08/09/15 Aspirin [ASA -] 81 mg PO DAILY 10/16/16 Tiotropium [place] [Spiriva] 1 inh PO BID 10/16/16
[2016-12-08] MEDS ORDERED: INSULIN SLIDING SCALE (NOVOLOG) 1 VIAL SQ SCH (16:30)
--- NOTE | 2016-12-08 17:17 | PN ---
Progress Note (short form) - Note Progress Note: Pt's condition was reviewed with pt's nurse today, couple of times. Pt's condition and DC plan was d/w pt's ; all questions were answered. Time spent for managing pt's DC: over 55 minutes Problem List - Problems (1) Small bowel mass Code(s): K63.89 - OTHER SPECIFIED DISEASES OF INTESTINE (2) SBO (small bowel obstruction) Code(s): K56.69 - OTHER INTESTINAL OBSTRUCTION (3) Pneumatosis intestinalis Code(s): K63.89 - OTHER SPECIFIED DISEASES OF INTESTINE (4) CHF (congestive heart failure) Code(s): I50.9 - HEART FAILURE, UNSPECIFIED (5) CVA (cerebral infarction) Code(s): I63.9 - CEREBRAL INFARCTION, UNSPECIFIED (6) Chronic obstructive pulmonary disease Code(s): J44.9 - CHRONIC OBSTRUCTIVE PULMONARY DISEASE, UNSPECIFIED (7) Hyperlipidemia Code(s): E78.5 - HYPERLIPIDEMIA, UNSPECIFIED (8) Hypokalemia due to inadequate potassium intake Code(s): E87.6 - HYPOKALEMIA (9) Hypophosphatemia Code(s): E83.39 - OTHER DISORDERS OF PHOSPHORUS METABOLISM (10) HTN (hypertension) Code(s): I10 - ESSENTIAL (PRIMARY) HYPERTENSION (11) Hypomagnesemia Code(s): E83.42 - HYPOMAGNESEMIA (12) Bandemia Code(s): D72.825 - BANDEMIA (13) Pneumonia Code(s): J18.9 - PNEUMONIA, UNSPECIFIED ORGANISM (14) Hypoalbuminemia Code(s): E88.09 - OTH DISORDERS OF PLASMA-PROTEIN METABOLISM, NEC (15) Elevated LFTs Code(s): R79.89 - OTHER SPECIFIED ABNORMAL FINDINGS OF BLOOD CHEMISTRY (16) Urinary retention Code(s): R33.9 - RETENTION OF URINE, UNSPECIFIED (17) Abdominal aneurysm Code(s): I71.4 - ABDOMINAL AORTIC ANEURYSM, WITHOUT RUPTURE (18) Depression Code(s): F32.9 - MAJOR DEPRESSIVE DISORDER, SINGLE EPISODE, UNSPECIFIED (19) Dysphagia Code(s): R13.10 - DYSPHAGIA, UNSPECIFIED
--- NOTE | 2016-12-09 02:33 | PN ---
Progress Note, Physician Chief Complaint: Pt is weak; no chest pain or abdominal pain. History of Present Illness: 81-year-old black male with no history of abdominal surgery presents to the emergency department complaining of periumbilical 6/10 sharp nonradiating intermittent discomfort with nausea no vomiting, fever, chills, chest pain, shortness of breath, flank pains, urinary symptoms. There are no alleviating or exacerbating factors. Last bowel movement 4 days ago. - Objective Vital Signs: Vital Signs Temperature 98 F 12/08/16 10:00 Pulse Rate 79 12/08/16 10:15 Respiratory Rate 20 12/08/16 10:00 Blood Pressure 128/78 12/08/16 10:00 O2 Sat by Pulse Oximetry (%) 93 L 12/08/16 10:15 Constitutional: Yes: Thin Eyes: Yes: WNL HENT: Yes: WNL Neck: Yes: WNL Cardiovascular: Yes: Regular Rate and Rhythm Respiratory: Yes: Regular Gastrointestinal: Yes: Soft ...Rectal Exam: Yes: Deferred Genitourinary: No: Anuria Musculoskeletal: Yes: Muscle Weakness Extremities: Yes: Cool Edema: No Peripheral Pulses WNL: No Peripheral Pulses: Left Doralis Pedis: 1+, Right Dorsalis Pedis: 1+ Integumentary: Yes: Incision Wound/Incision: Yes: Well Approximated Neurological: Yes: Alert, Weakness Labs: CBC, BMP 12/08/16 11:45 12/08/16 09:30 INR, PTT INR 1.17 (0.82-1.09) H 11/27/16 06:45 Problem List - Problems (1) Diastolic CHF Assessment/Plan: Continue present medications (amlodipine; lisinopril;metoprolol). Continue physical rehabilitation. Finishing 7 day antibiotics for pneumonia. Code(s): I50.30 - UNSPECIFIED DIASTOLIC (CONGESTIVE) HEART FAILURE (2) Hyperlipidemia Assessment/Plan: On atorvastatin; keep LDL cholesterol < 70 mg/dL. Code(s): E78.5 - HYPERLIPIDEMIA, UNSPECIFIED (3) PSVT (paroxysmal supraventricular tachycardia) Assessment/Plan: On metoprolol. Maintain electrolytes WNL. Maintain hydration. ECHO: normal LVEF. Code(s): I47.1 - SUPRAVENTRICULAR TACHYCARDIA (4) SBO (small bowel obstruction) Assessment/Plan: Nontender abdomen. Increase physical rehabilitation. On G-tube feeding. Code(s): K56.69 - OTHER INTESTINAL OBSTRUCTION (5) Small bowel mass Code(s): K63.89 - OTHER SPECIFIED DISEASES OF INTESTINE (6) HTN (hypertension) Code(s): I10 - ESSENTIAL (PRIMARY) HYPERTENSION (7) Weakness Code(s): R53.1 - WEAKNESS (8) Hypothyroid Assessment/Plan: decreased TSH; free T4 mildly elevated. 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 Gastric feeding tube. Code(s): R64 - CACHEXIA
--- NOTE | 2016-12-09 02:37 | PN ---
Progress Note, Physician Chief Complaint: Pt is weak; no chest pain or abdominal pain.c/o dry mouth. Daughter is at bedside. History of Present Illness: 81-year-old black male with no history of abdominal surgery presents to the emergency department complaining of periumbilical 6/10 sharp nonradiating intermittent discomfort with nausea no vomiting, fever, chills, chest pain, shortness of breath, flank pains, urinary symptoms. There are no alleviating or exacerbating factors. Last bowel movement 4 days ago. - Objective Vital Signs: Vital Signs Temperature 98 F 12/08/16 10:00 Pulse Rate 79 12/08/16 10:15 Respiratory Rate 20 12/08/16 10:00 Blood Pressure 128/78 12/08/16 10:00 O2 Sat by Pulse Oximetry (%) 93 L 12/08/16 10:15 Constitutional: Yes: Calm Eyes: Yes: WNL HENT: Yes: WNL Neck: Yes: WNL Cardiovascular: Yes: S1, S2 Respiratory: Yes: Diminished Gastrointestinal: Yes: Soft ...Rectal Exam: Yes: Deferred Genitourinary: No: Anuria Musculoskeletal: Yes: Muscle Weakness Extremities: Yes: Cool Edema: No Peripheral Pulses WNL: No Peripheral Pulses: Left Doralis Pedis: 1+, Right Dorsalis Pedis: 1+ Integumentary: Yes: Incision Neurological: Yes: Alert, Weakness Psychiatric: Yes: Other Labs: CBC, BMP 12/08/16 11:45 12/08/16 09:30 INR, PTT INR 1.17 (0.82-1.09) H 11/27/16 06:45 Abnormal Lab Results 12/08/16 12/08/16 12/08/16 07:00 09:30 11:45 WBC 11.9 H MCHC 31.8 L Plt Count 498 H D Sodium 148 H Chloride 110 H Carbon Dioxide 34 H Anion Gap 4 L BUN 26 H D Random Glucose 41 L* D 108 H D Calcium 10.4 H Problem List - Problems (1) Diastolic CHF Assessment/Plan: Continue present medications (amlodipine; lisinopril;metoprolol). Continue physical rehabilitation. Finished 7 day antibiotics for pneumonia; still with elevated WBCs. Code(s): I50.30 - UNSPECIFIED DIASTOLIC (CONGESTIVE) HEART FAILURE (2) Hyperlipidemia Assessment/Plan: On atorvastatin; keep LDL cholesterol < 70 mg/dL. Code(s): E78.5 - HYPERLIPIDEMIA, UNSPECIFIED (3) PSVT (paroxysmal supraventricular tachycardia) Assessment/Plan: On metoprolol. Maintain electrolytes WNL. Maintain hydration. ECHO: normal LVEF. Code(s): I47.1 - SUPRAVENTRICULAR TACHYCARDIA (4) SBO (small bowel obstruction) Assessment/Plan: Nontender abdomen. Increase physical rehabilitation. On G-tube feeding. Code(s): K56.69 - OTHER INTESTINAL OBSTRUCTION (5) Small bowel mass Code(s): K63.89 - OTHER SPECIFIED DISEASES OF INTESTINE (6) HTN (hypertension) Assessment/Plan: Better-controlled BP. On metoprolol; can change to ER for better 24 hour coverage and compliance ( once able to again take PO; on PEG presently). On amlodipine; increased to 10 mg daily; BP is now better-controlled. Started lisinopril 2.5 mg daily; may increase as required for HTN, CHF. Code(s): I10 - ESSENTIAL (PRIMARY) HYPERTENSION (7) Weakness Code(s): R53.1 - WEAKNESS (8) Hypothyroid Assessment/Plan: decreased TSH; free T4 mildly elevated. 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
== END 2016-12-08 19:26 | DRG 329 ==
LOC: SUPCPDRO 19:04 → JER 19:04 → JERBED 10-17 00:09 → UNDOADMIN 10-17 00:24 → J5S 10-17 03:41 → JICU 10-18 23:58 → J8W 10-27 22:11 → JICU 10-30 13:58 → J4W 11-07 21:41 → J8W 11-10 13:24
PROVIDERS: ADMIT Specialist; ATTEND Specialist
PROC: 0D9670Z Drainage of Stomach with Drainage Device, Via Natural or Artificial Opening (ICD-10-PCS; 2016-10-16)
PROC: 0DTB0ZZ Resection of Ileum, Open Approach (ICD-10-PCS; 2016-10-21)
PROC: 3E1H78Z Irrigation of Lower GI using Irrigating Substance, Via Natural or Artificial Opening (ICD-10-PCS; 2016-10-21)
PROC: 0DB80ZZ Excision of Small Intestine, Open Approach (ICD-10-PCS; principal; 2016-10-21 14:00)
PROC: 05H533Z Insertion of Infusion Device into Right Subclavian Vein, Percutaneous Approach (ICD-10-PCS; 2016-11-05)
PROC: 3E0336Z Introduction of Nutritional Substance into Peripheral Vein, Percutaneous Approach (ICD-10-PCS; 2016-11-06)
PROC: 02HV33Z Insertion of Infusion Device into Superior Vena Cava, Percutaneous Approach (ICD-10-PCS; 2016-11-06)
PROC: 0TJB8ZZ Inspection of Bladder, Via Natural or Artificial Opening Endoscopic (ICD-10-PCS; 2016-11-12)
PROC: 0DH63UZ Insertion of Feeding Device into Stomach, Percutaneous Approach (ICD-10-PCS; 2016-11-27)
PROC: 0DJ08ZZ Inspection of Upper Intestinal Tract, Via Natural or Artificial Opening Endoscopic (ICD-10-PCS; 2016-11-27)
DX: K56.69 Other intestinal obstruction (principal); J69.0 Pneumonitis due to inhalation of food and vomit; E43 Unspecified severe protein-calorie malnutrition; G81.91 Hemiplegia, unspecified affecting right dominant side; K55.1 Chronic vascular disorders of intestine; I50.30 Unspecified diastolic (congestive) heart failure; I47.1 Supraventricular tachycardia; K91.3 Postprocedural intestinal obstruction; R64 Cachexia; Z68.1 Body mass index [BMI] 19.9 or less, adult; J98.11 Atelectasis; E87.0 Hyperosmolality and hypernatremia; J44.9 Chronic obstructive pulmonary disease, unspecified; K63.89 Other specified diseases of intestine; E78.00 Pure hypercholesterolemia, unspecified; I71.4 Abdominal aortic aneurysm, without rupture; K59.09 Other constipation; D49.0 Neoplasm of unspecified behavior of digestive system; I11.0 Hypertensive heart disease with heart failure; I25.10 Atherosclerotic heart disease of native coronary artery without angina pectoris; E83.39 Other disorders of phosphorus metabolism; I73.89 Other specified peripheral vascular diseases; E87.6 Hypokalemia; R41.0 Disorientation, unspecified; R62.7 Adult failure to thrive; E83.42 Hypomagnesemia; R44.1 Visual hallucinations; R06.09 Other forms of dyspnea; E03.9 Hypothyroidism, unspecified; E88.09 Other disorders of plasma-protein metabolism, not elsewhere classified; B96.1 Klebsiella pneumoniae [K. pneumoniae] as the cause of diseases classified elsewhere; Y83.8 Other surgical procedures as the cause of abnormal reaction of the patient, or of later complication, without mention of misadventure at the time of the procedure; R14.0 Abdominal distension (gaseous); D72.828 Other elevated white blood cell count; F03.90 Unspecified dementia, unspecified severity, without behavioral disturbance, psychotic disturbance, mood disturbance, and anxiety; R23.8 Other skin changes; R73.9 Hyperglycemia, unspecified; R31.0 Gross hematuria; N40.1 Benign prostatic hyperplasia with lower urinary tract symptoms; R33.8 Other retention of urine; F32.9 Major depressive disorder, single episode, unspecified; R13.10 Dysphagia, unspecified; A08.8 Other specified intestinal infections; R50.9 Fever, unspecified; Z95.5 Presence of coronary angioplasty implant and graft; Z87.891 Personal history of nicotine dependence; Z78.1 Physical restraint status
CPT/HCPCS: 36415; 36569; 36600; 70450-TC; 71010-TC; 71250-TC; 74000-TC; 74174-TC; 74176-TC; 74177-TC; 74230-TC; 76700-TC; 76705-TC; 80048; 80053; 80076; 81003; 81015; 82040; 82150; 82550; 82607; 82803; 82947; 82977; 83036; 83605; 83690; 83735; 84100; 84153; 84439; 84443; 84478; 84481; 84484; 85025; 85027; 85610; 86593; 86704; 86706; 86708; 86803; 86850; 86900; 86901; 87040; 87070; 87086; 87186; 87205; 87324; 87340; 87389; 87449; 88307-TC; 92611-GN; 93005; 93010; 94010; 94640; 97116-GP; 97161-GP; 97164-GP; 99283-25; J1644

== ENCOUNTER 2016-12-09 21:09 | Inpatient (IN) | payer OTHER, BC ==
[2016-12-09 22:06] VITALS: BMI 23.1
--- NOTE | 2016-12-09 22:11 | PDOC ---
History of Present Illness - General History Source: Patient Exam Limitations: No Limitations - History of Present Illness Initial Comments: 12/09/16 22:51 The patient is an 81-year-old male accompanied by three daughters, with a significant past medical history of HTN, HLD, COPD, CVA, AAA, who presents to the ED with abdominal pain, nausea, and vomiting today. Pt was admitted to the hospital on 10/16/16 for constipation concerning for SBO. Pt was recently discharged yesterday (12/08) to [facility]. He does have a peg tube that was placed 2 weeks ago. As per daughter, pt was noted to have been throwing up large amounts of fluid and phlegm through his mouth while at nursing facility. He does not take anything by mouth due to aspiration. On exam , pt reports experiencing abdominal discomfort. Daughter states that he was experiencing shortness of breath earlier today that has now resolved. The patient denies any fever or chills. He denies any chest pain. PCP: Dr. Gini Delcid Allergies: None <Chelsi Hernandes - Last Filed: 12/10/16 01:46> <Derrick Israel - Last Filed: 12/10/16 02:01> - General Chief Complaint: Nausea/Vomiting Stated Complaint: VOMITTING Time Seen by Provider: 12/09/16 22:04 Past History <Chelsi Hernandes - Last Filed: 12/10/16 01:46> - Past Medical History Anemia: No Cancer: No Cardiac Disorders: No CVA: Yes (Mild R hemiparesis) COPD: Yes CHF: No Dementia: No Diabetes: No GI Disorders: No Disorders: No HTN: Yes Hypercholesterolemia: Yes Liver Disease: No Suicide Attempt (Hx): No Seizures: No Thyroid Disease: No - Surgical History Abdominal Surgery: No Appendectomy: No Cardiac Surgery: No Cholecystectomy: No Lung Surgery: Yes (chest tube for pneumothorax) Neurologic Surgery: No - Psycho/Social/Smoking Cessation Hx Anxiety: No Suicidal Ideation: No Smoking Status: Yes Smoking History: Unknown if ever smoked Have you smoked in the past 12 months: No Number of Cigarettes Smoked Daily: 10 If you are a former smoker, when did you quit?: 2016 'Breaking Loose' booklet given: 03/03/16 Hx Alcohol Use: No Drug/Substance Use Hx: No Substance Use Type: None Hx Substance Use Treatment: No <Derrick Israel - Last Filed: 12/10/16 02:01> - Past Medical History Allergies/Adverse Reactions: Allergies Allergy/AdvReac Type Severity Reaction Status Date / Time No Known Allergies Allergy Verified 12/09/16 23:50 Home Medications: Ambulatory Orders Aspirin [ASA -] 81 mg PO DAILY 10/16/16 Amlodipine Besylate [Norvasc -] 10 mg PEG DAILY tablet 12/08/16 Arformoterol Tartrate [Brovana -] 1 amp NEB BID amp 12/08/16 Heparin - 5,000 unit SQ BID vial 12/08/16 Insulin Sliding Scale [Novolog Vial Sliding Scale -] 1 vial SQ ACHS units 12/08 Lactobacillus Acidophilus [Bacid -] 1 tab PO BID tab 12/08/16 Lisinopril [Prinivil] 2.5 mg PEG DAILY tablet 12/08/16 Magnesium Oxide [Mag-Ox -] 400 mg PEG BID tablet 12/08/16 Metoclopramide Oral Soln [Reglan Oral Solution -] 10 mg GT TIDAC PRN #300 ml 05/26 Metoprolol Tartrate [Lopressor -] 50 mg PEG BID tablet 12/08/16 Mirtazapine [Remeron -] 15 mg PEG HS tablet 12/08/16 Potassium Chloride [Potassium Chloride Oral Liquid] 20 meq PEG DAILY #450 ml 05/26 Scopolamine Hydrobromide [Transderm-Scop -] 1 patch TD Q3D@1000 #10 patch Sennosides [Senna -] 2 tab PEG PRN PRN MDD 2 12/09/16 Tamsulosin HCl [Flomax -] 0.4 mg PEG DAILY@0830 12/09/16 Review of Systems - Review of Systems Able to Perform ROS?: Yes Comments:: 12/09/16 22:51 CONSTITUTIONAL: No fever, no chills, no fatigue EYES: No visual changes ENT: No ear pain, no sore throat CARDIOVASCULAR: No chest pain, no palpitations RESPIRATORY: No cough, no SOB GI: +abdominal pain, nausea, and vomiting. No constipation, no diarrhea GENITOURINARY: No dysuria, no frequency, no hematuria MUSKULOSKELETAL: No backpain, no joint pain, no myalgias SKIN: No rash NEURO: No headache <Ceciloi,Chelsi - Last Filed: 12/10/16 01:46> *Physical Exam - Vital Signs Last Vital Signs Temp Pulse Resp BP Pulse Ox 98.9 F 97 H 18 146/81 99 12/09/16 21:30 12/09/16 21:30 12/09/16 21:30 12/09/16 21:30 12/09/16 21:30 - Physical Exam Comments: 12/09/16 22:52 CONSTITUTIONAL: Well-appearing; well-nourished; in no apparent distress HEAD: Normocephalic; atraumatic EYES: PERRL; EOM intact ENMT: External appears normal; normal oropharynx NECK: Supple; non-tender; no cervical lymphadenopathy CARD: Normal S1, S2; no murmurs, rubs, or gallops RESP: Normal chest excursion with respiration; breath sounds clear and equal bilaterally; no wheezes, rhonchi, or rales ABD: Soft, non-distended; non-tender; no palpable organomegaly, no palpable hernias EXT: Normal ROM in all four extremities; non-tender to palpation; distal pulses intact SKIN: Warm, dry, no rash NEURO: No focal neurological deficiencies. <Chelsi Hernandes - Last Filed: 12/10/16 01:46> - Vital Signs Last Vital Signs Temp Pulse Resp BP Pulse Ox 98.9 F 97 H 18 146/81 99 12/09/16 21:30 12/09/16 21:30 12/09/16 21:30 12/09/16 21:30 12/09/16 21:30 - Physical Exam Comments: 12/10/16 01:05 EXAMINATION CONSTITUTIONAL: Awake and alert, frail-appearing, in mild respiratory distress HEAD: Normocephalic; atraumatic EYES: PERRL; EOM intact ENMT: External appears normal; + pulling of secretions within the oropharynx; patient is unable to clear them effectively; NECK: Supple; non-tender; no cervical lymphadenopathy CARD: Normal S1, S2; 2/6 sys murmurs, no rubs, or gallops RESP: Patient is mildly tachypneic and dyspneic; + intermittent rhonchi noted at the bases bilaterally; ABD: Soft, non-distended; non-tender; no palpable organomegaly, no palpable hernias; + PEG is noted in the epigastrium EXT: Normal ROM in all four extremities; non-tender to palpation; distal pulses intact; gait deferred SKIN: Warm, dry, no rash NEURO: No focal neurological deficiencies. <Derrick Israel - Last Filed: 12/10/16 02:01> ED Treatment Course - LABORATORY CBC & Chemistry Diagram: 12/09/16 23:10 12/10/16 00:18 <CecilioChelsi - Last Filed: 12/10/16 01:46> - LABORATORY CBC & Chemistry Diagram: 12/09/16 23:10 12/10/16 00:18 <Derrick Israel - Last Filed: 12/10/16 02:01> Medical Decision Making - Medical Decision Making 12/10/16 01:46 Dr. Gini Delcid was paged and notified via phone service. <CecilioChelsi - Last Filed: 12/10/16 01:46> - Medical Decision Making 12/10/16 01:08 Patient is a frail-appearing 81-year-old male who presents to the ER for suspected aspiration pneumonitis. Patient was noted to have been vomiting and aspirating his feeds earlier in the day. On initial evaluation in the ER, patient is noted to be afebrile but hypoxemic requiring supplemental O2 at 3 L via nasal cannula to maintain oxygen saturation of 99%. Patient is unable to effectively clear oropharyngeal secretions. CBC is noted for leukocytosis of 16 with normal differential which appears to have increased from a value obtained 24 hours prior. Will obtain chest and abdominal x-rays. Will reassess. If new infiltrates are noted, will cover with broad-spectrum antibiotics for nosocomial pneumonia. 12/10/16 01:57 Patient reassessed. Patient is resting comfortably. Respiratory distress noted earlier has now resolved. Oxygen saturation remains at 99% on 3 L via nasal cannula. CMP reveals persistent hypernatremia of 151; BUN has also increased to 34. LFTs are unchanged. UA shows pyuria. Chest x-ray reveals persistent bilateral lower lobe patchy infiltrates. Case discussed with Dr. Johnson. We' ll administer Zosyn for suspected aspiration pneumonia. Will admit. <Derrick Israel - Last Filed: 12/10/16 02:01> *DC/Admit/Observation/Transfer - Attestations Scribe Attestion: 12/09/16 22:53 Documentation prepared by Chelsi Hernandes, acting as medical parasitologist for Derrick Israel MD. <Chelsi Hernandes - Last Filed: 12/10/16 01:46> - Discharge Dispostion Admit: Yes - Attestations Physician Attestion: 12/10/16 01:05 The documentation was prepared by the scribe under my direct supervision. I have reviewed the documentation which correctly represents the findings, medical decision-making and critical action taken by me. <Derrick Israel - Last Filed: 12/10/16 02:01> Diagnosis at time of Disposition: Hypernatremia, Dehydration Pneumonia Qualifiers: Pneumonia type: aspiration pneumonia Aspiration pneumonia type: unspecified Laterality: bilateral Lung location: unspecified part of lung Qualified Code(s) : J69.0 - Pneumonitis due to inhalation of food and vomit - Discharge Dispostion Condition at time of disposition: Fair - Referrals Referrals: Gini Delcid [Primary Care Provider] -
[2016-12-09] MEDS ORDERED: SODIUM CHLORIDE 500 ML IV STA (22:29)
[2016-12-09 23:23] LABS: BASOPHIL 0.3 % (0-2.0); EOSINOPHIL 1.3 % (0-4.5); MCH 26.5 pg (25.7-33.7); MCHC 31.3 g/dl (32.0-35.9); MEAN CELL VOLUME 84.4 fl (80-96); MEAN PLT VOLUME 8.6 fl (7.5-11.1); NEUTROPHILS 79.2 % (42.8-82.8); PLATELET COUNT 588 K/MM3 (134-434); RDW 15.7 % (11.9-15.9); WHITE BLOOD COUNT 16.2 K/mm3 (4.0-10.0)
[2016-12-09 23:48] LABS: INR 1.02 (0.82-1.09); PROTHROMBIN TIME (PATIENT) 11.2 SEC (9.98-11.88)
[2016-12-10 00:37] LABS: URINE APPEARANCE CLOUDY; URINE BILIRUBIN NEGATIVE (NEGATIVE); URINE BLOOD 2+ (NEGATIVE); URINE COLOR YELLOW; URINE GLUCOSE (UA) NEGATIVE (NEGATIVE); URINE KETONE NEGATIVE (NEGATIVE); URINE NITRITE NEGATIVE (NEGATIVE); URINE PROTEIN NEGATIVE (NEGATIVE); URINE UROBILINOGEN NEGATIVE mg/dL (0.2-1.0)
[2016-12-10 00:38] LABS: URINE LEUK ESTERASE 3+ (NEGATIVE)
[2016-12-10 00:41] LABS: URINE BACTERIA RARE /hpf (NONE SEEN); URINE HYALINE CAST 9 /lpf; URINE MUCUS RARE; URINE RBC 30 /hpf (0-3); URINE WBC 109 /hpf (3-5)
[2016-12-10 01:01] LABS: ALBUMIN 2.4 g/dl (3.4-5.0); ALK PHOS 117 U/L (45-117); ANION GAP 6 (8-16); BILIRUBIN,TOTAL 0.2 mg/dL (0.2-1.0); CALCIUM 9.8 mg/dL (8.5-10.1); CO2 34 mmol/L (21-32); CREATININE 0.8 mg/dL (0.7-1.3); GLUCOSE,RANDOM 144 mg/dL (74-106); SGOT/AST 27 U/L (15-37); SGPT/ALT 42 U/L (12-78); TOT PROT 6.6 g/dl (6.4-8.2)
[2016-12-10] MEDS ORDERED: PIPERACILLIN/TAZOB 3.375 GM/50 ML PRE-DOCKED IV ONE (01:57)
[2016-12-10] MEDS ORDERED: PIPERACILLIN/TAZOB 3.375 GM 50 ML IVPB ONE (02:07)
[2016-12-10] MEDS ORDERED: METOCLOPRAMIDE HCL 5 MG/5 ML UNIT DOSE CUP GT PRN (08:16)
[2016-12-10 09:24] LABS: MCH 26.5 pg (25.7-33.7); MEAN CELL VOLUME 85.3 fl (80-96); PLATELET COUNT 540 K/MM3 (134-434); RDW 15.6 % (11.9-15.9)
[2016-12-10] MEDS: D5-1/2NS+20 MEQ KCL - 1,000 ML IV SCH (09:35)
[2016-12-10] MEDS: TAMSULOSIN HCL 0.4 MG CAP.ER.24H (FP) PO SCH (09:35)
[2016-12-10 09:48] LABS: ANION GAP 6 (8-16); CALCIUM 10.1 mg/dL (8.5-10.1); CO2 32 mmol/L (21-32); CREATININE 0.7 mg/dL (0.7-1.3); GLUCOSE,RANDOM 112 mg/dL (74-106)
[2016-12-10] MEDS: ARFORMOTEROL TARTRATE 15 MCG/2 ML VIAL NEB SCH ×2 (10:16→22:32)
[2016-12-10] MEDS: ASPIRIN 81 MG CHEWABLE TABLETS PO SCH (10:16)
[2016-12-10] MEDS: SCOPOLAMINE HYDROBROMIDE 1 PATCH PATCH.TD72 TD SCH (10:16)
[2016-12-10] MEDS: METOPROLOL TARTRATE 50 MG TABLET (FP) PEG SCH ×2 (10:16→21:19)
[2016-12-10] MEDS: LACTOBACILLUS ACIDOPHILUS 1 EACH TAB (FP) PO SCH ×2 (10:16→21:18)
[2016-12-10] MEDS: POTASSIUM CHLORIDE ORAL LIQUID 20 MEQ/15 ML PEG SCH (10:16)
[2016-12-10] MEDS: MAGNESIUM OXIDE 400 MG TABLET (FP) PEG SCH ×2 (10:16→21:18)
[2016-12-10] MEDS: amLODIPine BESYLATE 10 MG TABLET (FP) PEG SCH (10:16)
[2016-12-10] MEDS: HEPARIN NA (PORCINE) 5,000 UNITS/ML 1ML VIAL SQ SCH ×2 (10:18→21:19)
[2016-12-10] MEDS ORDERED: HEPARIN NA (PORCINE) 5,000 UNITS/ML 1ML VIAL ONE (10:34)
[2016-12-10] MEDS ORDERED: INSULIN SLIDING SCALE (NOVOLOG) 1 VIAL SQ SCH (11:00)
--- NOTE | 2016-12-10 11:22 | EKG ---
Test Reason : Blood Pressure : / mmHG Vent. 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 RATE HAS INCREASED BY 34 BPM CRITERIA FOR SEPTAL INFARCT ARE NO LONGER PRESENT Confirmed by LEI JUAN MD ([id number]) on 12/10/2016 11:21:45 AM Referred By: Confirmed By:LEI JUAN MD
[2016-12-10] MEDS ORDERED: ACETAMINOPHEN 650 MG/20.3 ML ORAL SOLUTION (CUPS) PEG PRN (16:38)
--- NOTE | 2016-12-10 19:13 | HP ---
"Admitting History and Physical - Primary Care Physician PCP: Gini Delcid S - Admission Chief Complaint: vomiting and cough History of Present Illness: The patient is an 81-year-old male accompanied by his daughters and , with a significant past medical history of HTN, HLD, COPD, CVA, AAA, who presents to the ED with abdominal pain, nausea, and vomiting. Pt was previously admitted to this hospital on 10/16/16 for constipation/SBO and benign bowel tumor. Pt was recently discharged (12/08) to [facility]. He does have a peg tube that was placed 2 weeks ago. As per daughter, pt was noted to have been throwing up large amounts of fluid and phlegm through his mouth while at nursing facility. He does not take anything by mouth due to aspiration. On exam , pt reports experiencing abdominal discomfort. Of note I did see pt yesterday in [facility] together with [place] drawing supervisor Ysabel pt. was in bed NAD awake alert no c/o; was present at the bedside, pt was asking to eat or drink po but I strongly advised not to give him anything b/ o aspiration; he was getting feeds via pump through PEG at 60 cc/h and he tolerated well History Source: Patient, Family Member, Medical Record, Transfer Record Limitations to Obtaining History: No Limitations - Past Medical History INTENSIVE CARE NURSE: Yes: CVA, TIA Cardiovascular: Yes: CHF, HTN, Hyperlipdemia Pulmonary: Yes: COPD Gastrointestinal: Yes: Constipation Musculoskeletal: Yes: Hemiparesis - Advance Directives Advance Directives: Yes: DNR - Smoking History Smoking history: Former smoker Have you smoked in the past 12 months: No Aproximately how many cigarettes per day: 10 (stopped last year) If you are a former smoker, when did you quit?: 2016 - Alcohol/Substance Use Hx Alcohol Use: No History of Substance Use: reports: None - Social History ADL: Independent Occupation: retired from [employer] History of Recent Travel: No Home Medications - Allergies Allergies/Adverse Reactions: Allergies Allergy/AdvReac Type Severity Reaction Status Date / Time No Known Allergies Allergy Verified 12/09/16 23:50 - Home Medications Home Medications: Ambulatory Orders Aspirin [ASA -] 81 mg PEG DAILY 10/16/16 Amlodipine Besylate [Norvasc -] 10 mg PEG DAILY tablet 12/08/16 Arformoterol Tartrate [Brovana -] 1 amp NEB BID amp 12/08/16 Heparin - 5,000 unit SQ BID vial 12/08/16 Insulin Sliding Scale [Novolog Vial Sliding Scale -] 1 vial SQ ACHS units 12/08 Lisinopril [Prinivil] 2.5 mg PEG DAILY tablet 12/08/16 Magnesium Oxide [Mag-Ox -] 400 mg PEG BID tablet 12/08/16 Metoclopramide Oral Soln [Reglan Oral Solution -] 10 mg GT TIDAC PRN #300 ml 05/26 Metoprolol Tartrate [Lopressor -] 50 mg PEG BID tablet 12/08/16 Mirtazapine [Remeron -] 15 mg PEG HS tablet 12/08/16 Potassium Chloride [Potassium Chloride Oral Liquid] 20 meq PEG DAILY #450 ml 05/26 Scopolamine Hydrobromide [Transderm-Scop -] 1 patch TD Q3D@1000 #10 patch Sennosides [Senna -] 2 tab PEG PRN PRN MDD 2 12/09/16 Tamsulosin HCl [Flomax -] 0.4 mg PEG DAILY@0830 12/09/16 Lactobacillus Acidophilus [Bacid -] 1 each PEG BID 12/11/16 Family Disease History - Family Disease History Family Disease History: Heart Disease: Brother (congestive heart failure), Other : Father (lived to 99), Mother (lived to her 70's) Review of Systems - Review of Systems Constitutional: denies: Chills, Fever, Lethargy Eyes: denies: Blurred Vision, Double Vision Neck: denies: Pain on Movement, Stiffness, Tenderness Cardiovascular: denies: Chest Pain, Shortness of Breath Respiratory: reports: Cough. denies: Orthopnea, SOB Gastrointestinal: reports: Abdominal Pain, Bloating, Vomiting. denies: Constipation, Diarrhea, Vomiting Blood Genitourinary: denies: Dysuria, Flank Pain Musculoskeletal: reports: Back Pain Integumentary: denies: Eczema, Rash Neurological: denies: Change in LOC, Seizure, Syncope Hematology/Lymphatic: denies: Easily Bruised, Excessive Bleeding Psychiatric: denies: Altered Sleep Pattern, Anxiety, Depression Physical Examination Vital Signs: Vital Signs Temperature 98.1 F 12/10/16 17:18 Pulse Rate 83 12/10/16 17:18 Respiratory Rate 18 12/10/16 17:18 Blood Pressure 130/79 12/10/16 17:18 O2 Sat by Pulse Oximetry (%) 90 L 12/10/16 14:26 Constitutional: Yes: No Distress, Calm Eyes: Yes: Conjunctiva Clear HENT: Yes: Atraumatic Neck: Yes: Supple Cardiovascular: Yes: Regular Rate and Rhythm Respiratory: Yes: Diminished Gastrointestinal: Yes: Soft, Other (PEG). No: Distention, Tenderness Renal/: No: CVA Tenderness - Left, CVA Tenderness - Right, Hematuria Musculoskeletal: No: Joint Stiffness, Joint Swelling Extremities: No: Cold, Cool, Cyanosis Edema: No Integumentary: No: Rash, Venous Stasis Changes Neurological: Yes: WNL, Alert. No: Oriented ...Motor Strength: WNL Psychiatric: Yes: WNL, Alert. No: Oriented, Agitated Labs: CBC, BMP 12/10/16 09:10 12/10/16 09:10 Imaging - Results Chest X-ray: Report Reviewed Other: Report Reviewed Assessment/Plan The patient is an 81-year-old male with a significant past medical history of HTN, HLD, COPD, CVA, AAA, who presents to the ED with abdominal pain, cough and vomiting. S/p previous prolonged admission to this hospital for constipation SBO benign bowel tumor, s/p aspiration and PEG placement. Pt was recently discharged (12/08) to [facility], where pt was noted to have been throwing up large amounts of fluid and phlegm through his mouth and coughing. NPO; hold PEG feeds IV ATB for presumed aspiration PNA| ID and GI eval I called NH to check the details before admission from [place] I called pt's and left message to call me DVT, falls, aspiration decubs PFX d/w pt and staff prognosis guarded DNR DNI"
[2016-12-10] MEDS ORDERED: VANCOMYCIN 1 GRAM (PRE-DOCKED) 250 ML IVPB ONE (19:15)
[2016-12-10] MEDS ORDERED: PIPERACILLIN/TAZOB 3.375 GM/50 ML PRE-DOCKED IVPB SCH (19:15)
[2016-12-10] MEDS ORDERED: DEXTROSE 5%-WATER - 50 ML IVPB ONE (19:29)
[2016-12-10] MEDS ORDERED: PIPERACILLIN/TAZOBACTAM 3.375 GM VIAL IVPB ONE (19:29)
[2016-12-10] MEDS: PIPERACILLIN/TAZOB 3.375 GM 3.375 GM in DEXTROSE 5%-WATER - 50 ML IVPB SCH (19:40)
[2016-12-10] MEDS: MIRTAZAPINE 15 MG TABLET (FP) PEG SCH (21:18)
[2016-12-11] MEDS ORDERED: PIPERACILLIN/TAZOBACTAM 3.375 GM VIAL IVPB ONE ×3 (00:31→18:25)
[2016-12-11] MEDS ORDERED: DEXTROSE 5%-WATER - 50 ML IVPB ONE ×3 (00:31→18:25)
[2016-12-11] MEDS: PIPERACILLIN/TAZOB 3.375 GM 3.375 GM in DEXTROSE 5%-WATER - 50 ML IVPB SCH ×3 (02:48→18:40)
[2016-12-11 08:57] LABS: BASOPHIL 0.4 % (0-2.0); EOSINOPHIL 2.3 % (0-4.5); MCH 26.3 pg (25.7-33.7); MCHC 30.8 g/dl (32.0-35.9); MEAN CELL VOLUME 85.5 fl (80-96); MEAN PLT VOLUME 8.6 fl (7.5-11.1); NEUTROPHILS 78.8 % (42.8-82.8); PLATELET COUNT 541 K/MM3 (134-434); RDW 15.9 % (11.9-15.9)
[2016-12-11 09:04] LABS: ALBUMIN 2.4 g/dl (3.4-5.0); ANION GAP 8 (8-16); CALCIUM 9.8 mg/dL (8.5-10.1); CO2 29 mmol/L (21-32); GLUCOSE,RANDOM 122 mg/dL (74-106)
[2016-12-11 09:09] LABS: ALK PHOS 114 U/L (45-117); BILIRUBIN,TOTAL 0.8 mg/dL (0.2-1.0); CREATININE 0.7 mg/dL (0.7-1.3); SGOT/AST 22 U/L (15-37); SGPT/ALT 32 U/L (12-78); TOT PROT 6.8 g/dl (6.4-8.2)
[2016-12-11] MEDS: ARFORMOTEROL TARTRATE 15 MCG/2 ML VIAL NEB SCH ×3 (09:17→21:44)
[2016-12-11] MEDS ORDERED: VANCOMYCIN 1 GRAM (PRE-DOCKED) 250 ML IVPB SCH (10:00)
[2016-12-11] MEDS ORDERED: PT OWN MED DRAWER 7, Y5N ONE ×2 (10:14→15:34)
[2016-12-11] MEDS: D5-1/2NS+20 MEQ KCL - 1,000 ML IV SCH ×2 (10:27→12:48)
[2016-12-11] MEDS: HEPARIN NA (PORCINE) 5,000 UNITS/ML 1ML VIAL SQ SCH ×2 (10:28→22:07)
[2016-12-11] MEDS: MAGNESIUM OXIDE 400 MG TABLET (FP) PEG SCH ×2 (10:28→22:07)
[2016-12-11] MEDS: ASPIRIN 81 MG CHEWABLE TABLETS PO SCH (10:28)
[2016-12-11] MEDS: LACTOBACILLUS ACIDOPHILUS 1 EACH TAB (FP) PO SCH (10:28)
[2016-12-11] MEDS: METOPROLOL TARTRATE 50 MG TABLET (FP) PEG SCH ×2 (10:28→22:07)
[2016-12-11] MEDS: POTASSIUM CHLORIDE ORAL LIQUID 20 MEQ/15 ML PEG SCH (10:29)
[2016-12-11] MEDS: amLODIPine BESYLATE 10 MG TABLET (FP) PEG SCH (10:29)
--- NOTE | 2016-12-11 10:38 | PN ---
Progress Note (short form) - Note Progress Note: ID consult dictated imp/reccd 81 year old man s/p SBO with small bowel resection with prolonged hospital course requiring PEG tube and chronic vieyra for urinary retention Just discharged on 12/08 after lengthy admission developed vomiting and abdominal pain at the [place] and was readmitted history of vre in urine culture he is resting comfortabl no oral secretions no abdominal pain noted to have WBC of 15K chronic vieyra cxray unchanged axray no obstruction ?aspiration pneumonitis from vomiting replace vieyra and send ua and urine culture nontoxic zosyn for now trend wbc f/u cultures
[2016-12-11] MEDS: TAMSULOSIN HCL 0.4 MG CAP.ER.24H (FP) PO SCH (10:42)
--- NOTE | 2016-12-11 11:51 | CON.NEP ---
Consult Consult Specialty:: Nephrology ([facility]) Referred by:: Dr. Delcid Reason for Consultation:: Hypernatremia - History of Present Illness Chief Complaint: Vomiting History of Present Illness: This is a 81 year old Gentleman with PMhx of CVA, Hypertension, Hyperlipidemia, COPD, AAA who presented with Abd pain, Nausea and vomiting at SNF. Pt is s/p hospital admission for severe constipation and SBO during which a PEG tube was placed. Family reports that he started vomiting after being fed with the PEG tube. Pt is awake and alert and denies any complaints at this time. No further emesis once in the hospital. CXR showed suspision for PNA. 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 SPECIALIST: Yes: CVA, TIA Cardio/Vascular: Yes: CHF, HTN, Hyperlipdemia Pulmonary: Yes: COPD Gastrointestinal: Yes: Constipation Musculoskeletal: Yes: Hemiparesis - Alcohol/Substance Use Hx Alcohol Use: No History of Substance Use: reports: None - Smoking History Smoking history: Former smoker Have you smoked in the past 12 months: No Aproximately how many cigarettes per day: 10 If you are a former smoker, when did you quit?: 2016 - Social History Usual Living Arrangement: With Significant Other ADL: Independent Occupation: retired from [employer] History of Recent Travel: No Home Medications - Allergies Allergies/Adverse Reactions: Allergies Allergy/AdvReac Type Severity Reaction Status Date / Time No Known Allergies Allergy Verified 12/09/16 23:50 - Home Medications Home Medications: Ambulatory Orders Aspirin [ASA -] 81 mg PEG DAILY 10/16/16 Amlodipine Besylate [Norvasc -] 10 mg PEG DAILY tablet 12/08/16 Arformoterol Tartrate [Brovana -] 1 amp NEB BID amp 12/08/16 Heparin - 5,000 unit SQ BID vial 12/08/16 Insulin Sliding Scale [Novolog Vial Sliding Scale -] 1 vial SQ ACHS units 12/08 Lisinopril [Prinivil] 2.5 mg PEG DAILY tablet 12/08/16 Magnesium Oxide [Mag-Ox -] 400 mg PEG BID tablet 12/08/16 Metoclopramide Oral Soln [Reglan Oral Solution -] 10 mg GT TIDAC PRN #300 ml 05/26 Metoprolol Tartrate [Lopressor -] 50 mg PEG BID tablet 12/08/16 Mirtazapine [Remeron -] 15 mg PEG HS tablet 12/08/16 Potassium Chloride [Potassium Chloride Oral Liquid] 20 meq PEG DAILY #450 ml 05/26 Scopolamine Hydrobromide [Transderm-Scop -] 1 patch TD Q3D@1000 #10 patch Sennosides [Senna -] 2 tab PEG PRN PRN MDD 2 12/09/16 Tamsulosin HCl [Flomax -] 0.4 mg PEG DAILY@0830 12/09/16 Lactobacillus Acidophilus [Bacid -] 1 each PEG BID 12/11/16 Family Disease History - Family Disease History Family Disease History: Heart Disease: Brother (congestive heart failure), Other : Father (lived to 99), Mother (lived to her 70's) Review of Systems - Review of Systems Constitutional: reports: No Symptoms Eyes: reports: No Symptoms HENT: reports: No Symptoms Neck: reports: No Symptoms Respiratory: reports: No Symptoms Gastrointestinal: reports: Abdominal Pain, Nausea, Vomiting Genitourinary: reports: No Symptoms Musculoskeletal: reports: No Symptoms Integumentary: reports: No Symptoms Neurological: reports: No Symptoms Endocrine: reports: No Symptoms Nephrology Consult - Height Height: 5 ft 8 in - Weight Weight: 152 lb 1 oz - BMI Body Mass Index (BMI): 23.1 - Lab Results CBC,BMP: CBC, BMP 12/11/16 06:00 12/11/16 06:00 Anion Gap: Anion Gap Anion Gap 8 (8-16) 12/11/16 06:00 - Imaging Chest X-ray: Report Reviewed X-ray: Report Reviewed - Physical Examination Vital Signs: Vital Signs Temperature 98.6 F 12/11/16 06:42 Pulse Rate 95 H 12/11/16 09:19 Respiratory Rate 20 12/11/16 06:42 Blood Pressure 143/79 12/11/16 06:42 O2 Sat by Pulse Oximetry (%) 93 L 12/11/16 09:19 Constitutional: Yes: Well Nourished, No Distress, Calm Eyes: Yes: Conjunctiva Clear HENT: Yes: Atraumatic Neck: Yes: Supple Cardiovascular: Yes: Regular Rate and Rhythm, S1, S2. No: Murmur, Rub Respiratory: Yes: Regular, Diminished. No: Rales, Rhonchi, SOB Gastrointestinal: Yes: Normal Bowel Sounds, Soft. No: Abdomen, Obese, Distention, Tenderness Renal/: No: Anuria, Bladder Distention, Chavarria Present, Hematuria Extremities: No: Cold, Cool, Cyanosis Edema: No Neurological: Yes: Alert Problem List - Problems (1) Hypernatremia Code(s): E87.0 - HYPEROSMOLALITY AND HYPERNATREMIA (2) Pneumonia Code(s): J18.9 - PNEUMONIA, UNSPECIFIED ORGANISM Qualifiers: Pneumonia type: aspiration pneumonia Aspiration pneumonia type: unspecified Laterality: bilateral Lung location: unspecified part of lung Qualified Code(s): J69.0 - Pneumonitis due to inhalation of food and vomit (3) Abdominal pain Code(s): R10.9 - UNSPECIFIED ABDOMINAL PAIN (4) CVA (cerebral infarction) Code(s): I63.9 - CEREBRAL INFARCTION, UNSPECIFIED (5) HTN (hypertension) Code(s): I10 - ESSENTIAL (PRIMARY) HYPERTENSION (6) SBO (small bowel obstruction) Code(s): K56.69 - OTHER INTESTINAL OBSTRUCTION Assessment/Plan 81 year old Gentleman with PMhx of CVA, Hypertension, Hyperlipidemia, COPD, AAA who presented with Abd pain, Nausea and vomiting at [facility]. #Hypernatremia Water deficit is ~ 2.6L etiology likely free water loss with N/V and decreaed free water intake Continue 1/2 NS with Kcl at 100cc per hour Trend Na Q24hr #B/L PNA r/o aspiration Continue emperic abx as per ID Check cultures #Vomiting/Nausea now resolved GI follow up #Hypertension BP is reasonably controlled continue amlodipine and metoprolol #Leukocytosis f/u cultures Abx as per ID Thank you Will follow Lucas Fontaine DO
--- NOTE | 2016-12-11 13:48 | CONS ---
DATE OF CONSULTATION: DATE OF DICTATION: 12/11/2016 REQUESTING PHYSICIAN: Jameel Delcid MD HISTORY OF PRESENT ILLNESS: This is an 81-year-old man. He was recently in the hospital for a prolonged admission, just discharged on December 08. He was originally admitted October 17. During the course of that admission, he had a small-bowel obstruction. He underwent surgery with small-bowel resection and an end-to-end anastomosis. 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 He did poorly postoperatively with poor appetite, intermittent small-bowel obstruction requiring NG tube. He had a transient pneumonia and Klebsiella bacteremia. Subsequently did well. He was seen for swallowing evaluation and noted to have silent aspiration. His diet was modified, but he was not eating and his consented to PEG placement which he had. After that, he had an episode of aspiration pneumonia. He was treated with 7 days of antibiotics and he also during the admission had several attempts at removing the Chavarria but failed. He was discharged with a Chavarria catheter. He was discharged on December 08. He was started on tube feeds at the halfway, developed abdominal pain and vomiting, transient respiratory distress. Was brought back to the emergency room where he was noted to have an elevated white count of 16,000 and he was admitted. He had a chest x-ray which showed the bilateral infiltrates, essentially unchanged from the prior admission. He was given vancomycin and Zosyn. We were asked to see him for further antibiotic recommendations. He is lying flat. He looks quite comfortable. His abdominal pain is resolved. He has no fevers or chills. PAST MEDICAL HISTORY: Notable for history of abdominal aneurysm, history of depression, chronic urinary retention, small-bowel obstruction with subsequent small-bowel resection, history of BPH, aspiration pneumonia. He has had a CVA and TIA in the past. He has hypertension, hyperlipidemia, heart failure, COPD. He has a hemiparesis from his stroke and now he has a PEG tube as well. He is DNR. SOCIAL HISTORY: He was formerly independent, living at home with his family, and now is admitted to a SNF for 24 hours before he was readmitted. Former smoker; he quit in 2016. No history of substance use. ALLERGIES: He has no known drug allergies. MEDICATIONS: At the time of admission included: 1. Aspirin. 2. Norvasc. 3. Brovana. 4. Subcutaneous heparin. 5. Insulin. 6. Lactobacillus. 7. Lisinopril. 8. Magnesium oxide. 9. Reglan. 10. Lopressor. 11. Remeron. 12. Potassium. 13. Scopolamine patch. 14. Senna. 15. Tamsulosin. FAMILY HISTORY: Notable for heart disease in his brother. REVIEW OF SYSTEMS: He has not had any further vomiting. He has no abdominal pain. He has no fevers or chills. PHYSICAL EXAMINATION:General: He is awake and alert. He is resting comfortably. Vital Signs: Temperature is 98.6, pulse of 95, blood pressure is 143/79, he weighs 152 pounds, respiratory rate is 20. HEENT: He is normocephalic. His eyes are anicteric. He has no oral secretions. Neck: Supple. Lungs: Have diminished breath sounds at the bases. Heart: Regular rate and rhythm. Abdomen: Soft. He has no distention. Currently nontender. PEG site is clean. Extremities: Without edema. Skin: He has no skin break. LABORATORY DATA: White count is 15,000, hemoglobin 12.6, platelets of 541. BUN is 12 and creatinine is 0.7. LFTs are normal. Urinalysis has 3+ leukocytes with 109 white cells. Blood cultures are pending. ASSESSMENT: In summary, this is an 81-year-old man who may have aspiration pneumonitis in the setting of acute vomiting after discharge to the halfway. He has not been fed there. His chest x-ray is unchanged from prior and he has no abdominal pain. RECOMMENDATIONS: I would replace his Chavarria and send a UA and a urine culture. He does not appear toxic in any way. Would treat him with Zosyn for now and follow up his cultures and trend his white count. Further recommendations to follow. Rick KAUR/[id number]
--- NOTE | 2016-12-11 14:37 | PN ---
"Progress Note, Physician Chief Complaint: Pt in bed awake alert NAD no vomiting less cough no abdominal pain; I spoke dr Henriquez ([facility] director) and Ysabel ([place] pumping station supervisor) who informed me that pt's PEG feeds pump at [facility] is under pending investigation for possible overflowing; of note, when I saw the pt in [facility] on 12/09 on Wednesday, around 1-2 pm, together with pumping station supervisor Ysabel, the pump was going at 60 cc/h, then when next shift nurse came it was still going at 60 cc/h per [place] staff but apparently later in the evening it was going at 400 cc/h, pt's family and daughter where at bedside and noticed pt vomiting and called nurse and me, I held the peg feeds and I transferred pt to the ER on that Wednesday evening. - Current Medication List Current Medications: Active Medications Acetaminophen (Tylenol Oral Solution -) 650 mg PEG Q6H PRN PRN Reason: FEVER OR PAIN Amlodipine Besylate (Norvasc -) 10 mg PEG DAILY [facility] Last Admin: 12/11/16 10:29 Dose: 10 mg Arformoterol Tartrate (Brovana (Restricted To Pulmonology/Resp) -) 1 amp NEB BID [facility] Last Admin: 12/11/16 09:18 Dose: 1 amp Aspirin (Asa -) 81 mg PO DAILY [facility] Last Admin: 12/11/16 10:28 Dose: 81 mg Heparin Sodium (Porcine) (Heparin -) 5,000 unit SQ BID [facility] Last Admin: 12/11/16 10:28 Dose: 5,000 unit Piperacillin Sod/Tazobactam (Sod 3.375 gm/ Dextrose) 50 mls @ 100 mls/hr IVPB Q8H-IV [facility] Potassium Chloride/Dextrose/Sod Cl (D5-1/2ns+20 Meq Kcl -) 1,000 mls @ 100 mls/ hr IV ASDIR [facility] Last Admin: 12/11/16 12:48 Dose: 100 mls/hr Lactobacillus Acidophilus (Bacid -) 1 tab PO BID [facility] Last Admin: 12/11/16 10:28 Dose: 1 tab Magnesium Oxide (Mag-Ox -) 400 mg PEG BID [facility] Last Admin: 12/11/16 10:28 Dose: 400 mg Metoclopramide HCl (Reglan Oral Solution -) 10 mg GT TIDAC PRN PRN Reason: NAUSEA AND/OR VOMITING Metoprolol Tartrate (Lopressor -) 50 mg PEG BID [facility] Last Admin: 12/11/16 10:28 Dose: 50 mg Mirtazapine (Remeron -) 15 mg PEG HS [facility] Last Admin: 12/10/16 21:18 Dose: 15 mg Potassium Chloride (Potassium Chloride Oral Liquid) 20 meq PEG DAILY [facility] Last Admin: 12/11/16 10:29 Dose: 20 meq Scopolamine HBr (Transderm-Scop -) 1 patch TD Q3D@1000 [facility] Last Admin: 12/10/16 10:16 Dose: 1 patch Tamsulosin HCl (Flomax -) 0.4 mg PO DAILY@0830 [facility] Last Admin: 12/11/16 10:42 Dose: 0.4 mg - Objective Vital Signs: Vital Signs Temperature 98.6 F 12/11/16 06:42 Pulse Rate 95 H 12/11/16 09:19 Respiratory Rate 20 12/11/16 06:42 Blood Pressure 143/79 12/11/16 06:42 O2 Sat by Pulse Oximetry (%) 93 L 12/11/16 09:19 Constitutional: Yes: No Distress, Calm Eyes: Yes: Conjunctiva Clear HENT: Yes: Atraumatic Neck: Yes: Supple Cardiovascular: Yes: Regular Rate and Rhythm Respiratory: Yes: Diminished Gastrointestinal: Yes: Soft, Other (PEG in place). No: Distention, Tenderness Genitourinary: Yes: CVA Tenderness - Left. No: CVA Tenderness - Right Musculoskeletal: No: Joint Stiffness, Joint Swelling Extremities: No: Cold, Cool Edema: No Integumentary: No: Rash, Venous Stasis Changes Neurological: Yes: WNL, Alert, Oriented ...Motor Strength: WNL Psychiatric: Yes: WNL, Alert, Oriented. No: Agitated, Suicidal Ideation Labs: CBC, BMP 12/11/16 06:00 12/11/16 06:00 INR, PTT INR 1.02 (0.82-1.09) 12/09/16 23:10 - ....Imaging Other: Report Reviewed Assessment/Plan 81-year-old male with a significant past medical history of HTN, HLD, COPD, CVA , AAA, admitted with cough and vomiting. possible aspiration PNA after possible PEG pump overflow in [place] NPO and PEG feeds held, pt improved IV ATB for presumed aspiration PNA| ID and GI eval d/w ot's /phone DVT, falls, aspiration decubs PFX d/w pt and staff prognosis guarded DNR DNI"
--- NOTE | 2016-12-11 17:03 | CON.GI ---
Consult Consult Specialty:: Gastroenterology Referred by:: Dr Delcid Reason for Consultation:: PEG feeding - History of Present Illness Chief Complaint: Difficulty breathing at [place] after a brisk infusion of PEG feeing History of Present Illness: 81M transferred from [facility] for suspected aspiraion after he developed vomiting. His tells me that he had received a rapid infusion of PEG feedings just before the episode. He is known to us from having presented with an SBO with pneumatosis and portal gas that was initially managed conservatively. 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 He developed dysphagia with propensity to aspiration leading to a PEG insertion on 11/27/16. 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 11/27/16 PEG insertion - Alcohol/Substance Use Hx Alcohol Use: No History of Substance Use: reports: None - Smoking History Smoking history: Former smoker Have you smoked in the past 12 months: No Aproximately how many cigarettes per day: 10 If you are a former smoker, when did you quit?: 2016 - Social History Usual Living Arrangement: [facility] ADL: Independent Occupation: retired from [employer] Place of : [facility] History of Recent Travel: No Home Medications - Allergies Allergies/Adverse Reactions: Allergies Allergy/AdvReac Type Severity Reaction Status Date / Time No Known Allergies Allergy Verified 12/09/16 23:50 - Home Medications Home Medications: Ambulatory Orders Aspirin [ASA -] 81 mg PEG DAILY 10/16/16 Amlodipine Besylate [Norvasc -] 10 mg PEG DAILY tablet 12/08/16 Arformoterol Tartrate [Brovana -] 1 amp NEB BID amp 12/08/16 Heparin - 5,000 unit SQ BID vial 12/08/16 Insulin Sliding Scale [Novolog Vial Sliding Scale -] 1 vial SQ ACHS units 12/08 Lisinopril [Prinivil] 2.5 mg PEG DAILY tablet 12/08/16 Magnesium Oxide [Mag-Ox -] 400 mg PEG BID tablet 12/08/16 Metoclopramide Oral Soln [Reglan Oral Solution -] 10 mg GT TIDAC PRN #300 ml 05/26 Metoprolol Tartrate [Lopressor -] 50 mg PEG BID tablet 12/08/16 Mirtazapine [Remeron -] 15 mg PEG HS tablet 12/08/16 Potassium Chloride [Potassium Chloride Oral Liquid] 20 meq PEG DAILY #450 ml 05/26 Scopolamine Hydrobromide [Transderm-Scop -] 1 patch TD Q3D@1000 #10 patch Sennosides [Senna -] 2 tab PEG PRN PRN MDD 2 12/09/16 Tamsulosin HCl [Flomax -] 0.4 mg PEG DAILY@0830 12/09/16 Lactobacillus Acidophilus [Bacid -] 1 each PEG BID 12/11/16 Family Disease History - Family Disease History Family Disease History: Heart Disease: Brother (congestive heart failure), Other : Father (lived to 99), Mother (lived to her 70's) Physical Exam-GI Vital Signs: Vital Signs Temperature 97.9 F 12/11/16 15:41 Pulse Rate 76 12/11/16 15:41 Respiratory Rate 20 12/11/16 06:42 Blood Pressure 123/70 12/11/16 15:41 O2 Sat by Pulse Oximetry (%) 93 L 12/11/16 09:19 CBC,CMP WBC 15.0 K/mm3 (4.0-10.0) H 12/11/16 06:00 RBC 4.79 M/mm3 (4.00-5.60) 12/11/16 06:00 Hgb 12.6 GM/dL (11.7-16.9) 12/11/16 06:00 Hct 41.0 % (35.4-49) 12/11/16 06:00 MCV 85.5 fl (80-96) 12/11/16 06:00 MCH 26.3 pg (25.7-33.7) 12/11/16 06:00 MCHC 30.8 g/dl (32.0-35.9) L 12/11/16 06:00 RDW 15.9 % (11.9-15.9) 12/11/16 06:00 Plt Count 541 K/MM3 (134-434) H 12/11/16 06:00 MPV 8.6 fl (7.5-11.1) 12/11/16 06:00 Neutrophils % 78.8 % (42.8-82.8) 12/11/16 06:00 Lymphocytes % 12.5 % (8-40) 12/11/16 06:00 Monocytes % 6.0 % (3.8-10.2) 12/11/16 06:00 Eosinophils % 2.3 % (0-4.5) 12/11/16 06:00 Basophils % 0.4 % (0-2.0) 12/11/16 06:00 Sodium 149 mmol/L (136-145) H 12/11/16 06:00 Potassium 4.7 mmol/L (3.5-5.1) 12/11/16 06:00 Chloride 112 mmol/L (98-107) H 12/11/16 06:00 Carbon Dioxide 29 mmol/L (21-32) 12/11/16 06:00 Anion Gap 8 (8-16) 12/11/16 06:00 BUN 12 mg/dL (7-18) D 12/11/16 06:00 Creatinine 0.7 mg/dL (0.7-1.3) 12/11/16 06:00 Creat Clearance w eGFR > 60 (>60) 12/11/16 06:00 Random Glucose 122 mg/dL (74-106) H 12/11/16 06:00 Calcium 9.8 mg/dL (8.5-10.1) 12/11/16 06:00 Total Bilirubin 0.8 mg/dL (0.2-1.0) D 12/11/16 06:00 AST 22 U/L (15-37) 12/11/16 06:00 ALT 32 U/L (12-78) D 12/11/16 06:00 Alkaline Phosphatase 114 U/L (45-117) 12/11/16 06:00 Total Protein 6.8 g/dl (6.4-8.2) 12/11/16 06:00 Albumin 2.4 g/dl (3.4-5.0) L 12/11/16 06:00 Current Medications Generic Name Dose Route Start Last Admin Trade Name Freq PRN Reason Stop Dose Admin Acetaminophen 650 mg 12/10/16 16:38 Tylenol Oral Solution - PEG Q6H PRN FEVER OR PAIN Amlodipine Besylate 10 mg 12/10/16 10:00 12/11/16 10:29 Norvasc - PEG 10 mg DAILY [facility] Administration Arformoterol Tartrate 1 amp 12/10/16 10:00 12/11/16 09:18 Brovana (Restricted To Pulmonology/Resp) - NEB 1 amp BID [facility] Administration Aspirin 81 mg 12/10/16 10:00 12/11/16 10:28 Asa - PO 81 mg DAILY [facility] Administration Heparin Sodium (Porcine) 5,000 unit 12/10/16 10:00 12/11/16 10:28 Heparin - SQ 5,000 unit BID [facility] Administration Piperacillin Sod/Tazobactam 50 mls @ 100 mls/hr 12/11/16 12:00 12/11/16 15:17 Sod 3.375 gm/ Dextrose IVPB 100 mls/hr Q8H-IV [facility] Administration Potassium Chloride/Dextrose/Sod Cl 1,000 mls @ 100 mls/hr 12/11/16 11:55 12:48 D5-1/2ns+20 Meq Kcl - IV 100 mls/hr ASDIR [facility] Administration Lactobacillus Acidophilus 1 tab 12/10/16 10:00 12/11/16 10:28 Bacid - PO 1 tab BID [facility] Administration Magnesium Oxide 400 mg 12/10/16 10:00 12/11/16 10:28 Mag-Ox - PEG 400 mg BID [facility] Administration Metoclopramide HCl 10 mg 12/10/16 08:16 Reglan Oral Solution - GT TIDAC PRN NAUSEA AND/OR VOMITING Metoprolol Tartrate 50 mg 12/10/16 10:00 12/11/16 10:28 Lopressor - PEG 50 mg BID [facility] Administration Mirtazapine 15 mg 12/10/16 22:00 12/10/16 21:18 Remeron - PEG 15 mg HS [facility] Administration Potassium Chloride 20 meq 12/10/16 10:00 12/11/16 10:29 Potassium Chloride Oral Liquid PEG 20 meq DAILY [facility] Administration Scopolamine HBr 1 patch 12/10/16 10:00 12/10/16 10:16 Transderm-Scop - TD 1 patch Q3D@1000 [facility] Administration Tamsulosin HCl 0.4 mg 12/10/16 08:30 12/11/16 10:42 Flomax - PO 0.4 mg DAILY@0830 [facility] Administration Constitutional: Yes: Calm, Other (Replies to questioning) Eyes: Yes: Conjunctiva Clear HENT: Yes: Atraumatic Neck: Yes: Supple Cardiovascular: Yes: Regular Rate and Rhythm Respiratory: Yes: CTA Bilaterally Gastrointestinal Inspection: Yes: Scars (indweeling left supraumbilical PEG with clean site) ...Auscultate: Yes: Normoactive Bowel Sounds ...Palpate: Yes: Soft, Other (nontender) ...Rectal Exam: Yes: Deferred Labs: CBC, BMP 12/11/16 06:00 12/11/16 06:00 INR, PTT INR 1.02 (0.82-1.09) 12/09/16 23:10 Assessment/Plan Suspect vomiting occurred due to large volume of feeding being administered too rapidly raising the possibility of aspiration to which he was prone while here. Feedings will be resumed at 30cc/hr and can be advanced as tolerated. Dr. Ambrosio will be covering this weekend.
[2016-12-11 17:04] LABS: URINE APPEARANCE SLCLOUDY; URINE BILIRUBIN NEGATIVE (NEGATIVE); URINE BLOOD 1+ (NEGATIVE); URINE COLOR YELLOW; URINE GLUCOSE (UA) NEGATIVE (NEGATIVE); URINE KETONE NEGATIVE (NEGATIVE); URINE NITRITE NEGATIVE (NEGATIVE); URINE UROBILINOGEN NEGATIVE mg/dL (0.2-1.0)
[2016-12-11 17:05] LABS: URINE LEUK ESTERASE 2+ (NEGATIVE); URINE PROTEIN 1+ (NEGATIVE)
[2016-12-11 17:11] LABS: CALCIUM OXALATE CRYSTALS RARE /hpf (NONE SEEN); URINE MUCUS RARE; URINE RBC 13 /hpf (0-3); URINE WBC 35 /hpf (3-5)
[2016-12-11] MEDS ORDERED: LACTOBACILLUS ACIDOPHILUS 1 EACH TAB (FP) PEG SCH (18:20)
[2016-12-11] MEDS ORDERED: TAMSULOSIN HCL 0.4 MG CAP.ER.24H (FP) NR SCH (18:20)
[2016-12-11] MEDS ORDERED: ASPIRIN 81 MG CHEWABLE TABLETS PEG SCH (18:20)
[2016-12-11] MEDS: LACTOBACILLUS ACIDOPHILUS 1 EACH TAB (FP) PEG SCH (22:07)
[2016-12-11] MEDS: MIRTAZAPINE 15 MG TABLET (FP) PEG SCH (22:07)
[2016-12-12] MEDS ORDERED: PIPERACILLIN/TAZOBACTAM 3.375 GM VIAL IVPB ONE ×2 (01:25→03:45)
[2016-12-12] MEDS ORDERED: DEXTROSE 5%-WATER - 50 ML IVPB ONE ×2 (01:26→03:45)
[2016-12-12] MEDS: PIPERACILLIN/TAZOB 3.375 GM 3.375 GM in DEXTROSE 5%-WATER - 50 ML IVPB SCH (02:15)
[2016-12-12 08:01] LABS: BASOPHIL 0.4 % (0-2.0); EOSINOPHIL 4.4 % (0-4.5); MCH 27.1 pg (25.7-33.7); MCHC 31.4 g/dl (32.0-35.9); MEAN CELL VOLUME 86.4 fl (80-96); MEAN PLT VOLUME 8.3 fl (7.5-11.1); NEUTROPHILS 69.4 % (42.8-82.8); PLATELET COUNT 512 K/MM3 (134-434); RDW 16.4 % (11.9-15.9); WHITE BLOOD COUNT 9.2 K/mm3 (4.0-10.0)
[2016-12-12 08:20] LABS: ANION GAP 5 (8-16); CALCIUM 9.7 mg/dL (8.5-10.1); CO2 30 mmol/L (21-32); GLUCOSE,RANDOM 147 mg/dL (74-106); MAGNESIUM 2.4 mg/dL (1.8-2.4); PHOSPHOROUS 3.1 mg/dL (2.5-4.9)
--- NOTE | 2016-12-12 08:30 | PN ---
Progress Note, Physician Chief Complaint: ID Remains stable no fevers No SOB vomiting - Current Medication List Current Medications: Active Medications Acetaminophen (Tylenol Oral Solution -) 650 mg PEG Q6H PRN PRN Reason: FEVER OR PAIN Amlodipine Besylate (Norvasc -) 10 mg PEG DAILY [facility] Last Admin: 12/11/16 10:29 Dose: 10 mg Arformoterol Tartrate (Brovana (Restricted To Pulmonology/Resp) -) 1 amp NEB BID [facility] Last Admin: 12/11/16 21:44 Dose: 1 amp Aspirin (Asa -) 81 mg PEG DAILY [facility] Heparin Sodium (Porcine) (Heparin -) 5,000 unit SQ BID [facility] Last Admin: 12/11/16 22:07 Dose: 5,000 unit Piperacillin Sod/Tazobactam (Sod 3.375 gm/ Dextrose) 50 mls @ 100 mls/hr IVPB Q8H-IV [facility] Last Admin: 12/12/16 02:15 Dose: 100 mls/hr Potassium Chloride/Dextrose/Sod Cl (D5-1/2ns+20 Meq Kcl -) 1,000 mls @ 100 mls/ hr IV ASDIR [facility] Last Admin: 12/11/16 12:48 Dose: 100 mls/hr Lactobacillus Acidophilus (Bacid -) 1 tab PEG BID [facility] Last Admin: 12/11/16 22:07 Dose: 1 tab Magnesium Oxide (Mag-Ox -) 400 mg PEG BID [facility] Last Admin: 12/11/16 22:07 Dose: 400 mg Metoclopramide HCl (Reglan Oral Solution -) 10 mg GT TIDAC PRN PRN Reason: NAUSEA AND/OR VOMITING Metoprolol Tartrate (Lopressor -) 50 mg PEG BID [facility] Last Admin: 12/11/16 22:07 Dose: 50 mg Mirtazapine (Remeron -) 15 mg PEG HS [facility] Last Admin: 12/11/16 22:07 Dose: 15 mg Potassium Chloride (Potassium Chloride Oral Liquid) 20 meq PEG DAILY [facility] Last Admin: 12/11/16 10:29 Dose: 20 meq Scopolamine HBr (Transderm-Scop -) 1 patch TD Q3D@1000 [facility] Last Admin: 12/10/16 10:16 Dose: 1 patch Tamsulosin HCl (Flomax -) 0.4 mg NR DAILY@0830 [facility] - Objective Vital Signs: Vital Signs Temperature 98.2 F 12/12/16 06:00 Pulse Rate 86 12/12/16 06:00 Respiratory Rate 18 12/12/16 06:00 Blood Pressure 140/83 12/12/16 06:00 O2 Sat by Pulse Oximetry (%) 93 L 12/11/16 09:19 Constitutional: Yes: Well Nourished, No Distress HENT: Yes: WNL, Atraumatic Neck: Yes: WNL, Supple Cardiovascular: Yes: Regular Rate and Rhythm, S1, S2. No: Murmur Respiratory: Yes: WNL, Regular, CTA Bilaterally Gastrointestinal: Yes: WNL, Normal Bowel Sounds, Soft Edema: No Labs: CBC, BMP 12/12/16 07:40 INR, PTT INR 1.02 (0.82-1.09) 12/09/16 23:10 Assessment/Plan Microbiology 12/10/16 09:10 Blood - Peripheral Venous Blood Culture - Preliminary NO GROWTH OBTAINED AFTER 24 HOURS, INCUBATION TO CONTINUE FOR 4 DAYS. 12/10/16 09:10 Blood - Peripheral Venous Blood Culture - Preliminary NO GROWTH OBTAINED AFTER 24 HOURS, INCUBATION TO CONTINUE FOR 4 DAYS. Laboratory Tests 12/11/16 12/11/16 12/12/16 06:00 14:53 07:40 WBC 9.2 D Hgb 12.2 Hct 38.9 Plt Count 512 H BUN 12 D Ur Leukocyte Esterase 2+ H Urine WBC 35 Assessment Not sure he has aspiration PNA May have incidental UTI Plan Await final urine c/s then perhaps stop everything or offer po antibiotic tomorrow Alexandru MARRERO
[2016-12-12 08:59] LABS: CREATININE 0.7 mg/dL (0.7-1.3)
[2016-12-12] MEDS: TAMSULOSIN HCL 0.4 MG CAP.ER.24H (FP) NR SCH (09:24)
[2016-12-12] MEDS: POTASSIUM CHLORIDE ORAL LIQUID 20 MEQ/15 ML PEG SCH (09:29)
[2016-12-12] MEDS: amLODIPine BESYLATE 10 MG TABLET (FP) PEG SCH (09:29)
[2016-12-12] MEDS: LACTOBACILLUS ACIDOPHILUS 1 EACH TAB (FP) PEG SCH ×2 (09:30→21:12)
[2016-12-12] MEDS: METOPROLOL TARTRATE 50 MG TABLET (FP) PEG SCH ×2 (09:30→21:12)
[2016-12-12] MEDS: MAGNESIUM OXIDE 400 MG TABLET (FP) PEG SCH ×2 (09:30→21:12)
[2016-12-12] MEDS: ASPIRIN 81 MG CHEWABLE TABLETS PEG SCH (09:30)
[2016-12-12] MEDS: HEPARIN NA (PORCINE) 5,000 UNITS/ML 1ML VIAL SQ SCH ×2 (09:30→21:13)
[2016-12-12] MEDS: D5-1/2NS+20 MEQ KCL - 1,000 ML IV SCH (10:16)
--- NOTE | 2016-12-12 10:42 | PN ---
Progress Note (short form) - Note Progress Note: Renal followup for hypernatremia Pt seen and examined at the bedside awake and alert started on PEG tube feeds denies any sob, chest pain, abd pain, N/V/D Vital Signs Temperature 98.2 F 12/12/16 06:00 Pulse Rate 86 12/12/16 06:00 Respiratory Rate 18 12/12/16 06:00 Blood Pressure 140/83 12/12/16 06:00 O2 Sat by Pulse Oximetry (%) 93 L 12/11/16 09:19 Intake & Output 12/09/16 12/10/16 12/11/16 12/12/16 23:59 23:59 23:59 23:59 Intake Total 550 1350 1200 Output Total 2275 1625 Balance -1725 -275 1200 Weight 152 lb 1.903 oz 152 lb 1 oz 152 lb 1 oz Gen: NAD CVS: RRR Lungs: Dec Bs at lung bases Abd: soft NT Ext: No edema CBC, BMP 12/12/16 07:40 12/12/16 07:40 Laboratory Tests 12/12/16 07:40 Calcium 9.7 Phosphorus 3.1 Magnesium 2.4 D Current Medications Acetaminophen (Tylenol Oral Solution -) 650 mg PEG Q6H PRN PRN Reason: FEVER OR PAIN Last Admin: 12/12/16 09:29 Dose: 650 mg Amlodipine Besylate (Norvasc -) 10 mg PEG DAILY [facility] Last Admin: 12/12/16 09:29 Dose: 10 mg Arformoterol Tartrate (Brovana (Restricted To Pulmonology/Resp) -) 1 amp NEB BID [facility] Last Admin: 12/11/16 21:44 Dose: 1 amp Aspirin (Asa -) 81 mg PEG DAILY [facility] Last Admin: 12/12/16 09:30 Dose: 81 mg Heparin Sodium (Porcine) (Heparin -) 5,000 unit SQ BID [facility] Last Admin: 12/12/16 09:30 Dose: 5,000 unit Dextrose/Sodium Chloride (D5-1/3ns -) 500 mls @ 83 mls/hr IV ASDIR [facility] Lactobacillus Acidophilus (Bacid -) 1 tab PEG BID [facility] Last Admin: 12/12/16 09:30 Dose: 1 tab Magnesium Oxide (Mag-Ox -) 400 mg PEG BID [facility] Last Admin: 12/12/16 09:30 Dose: 400 mg Metoclopramide HCl (Reglan Oral Solution -) 10 mg GT TIDAC PRN PRN Reason: NAUSEA AND/OR VOMITING Metoprolol Tartrate (Lopressor -) 50 mg PEG BID [facility] Last Admin: 12/12/16 09:30 Dose: 50 mg Mirtazapine (Remeron -) 15 mg PEG HS [facility] Last Admin: 12/11/16 22:07 Dose: 15 mg Potassium Chloride (Potassium Chloride Oral Liquid) 20 meq PEG DAILY [facility] Last Admin: 12/12/16 09:29 Dose: 20 meq Scopolamine HBr (Transderm-Scop -) 1 patch TD Q3D@1000 [facility] Last Admin: 12/10/16 10:16 Dose: 1 patch Tamsulosin HCl (Flomax -) 0.4 mg NR DAILY@0830 [facility] Last Admin: 12/12/16 09:24 Dose: 0.4 mg A/P 81 year old Gentleman with PMhx of CVA, Hypertension, Hyperlipidemia, COPD, AAA who presented with Abd pain, Nausea and vomiting at [facility]. #Hypernatremia etiology likely free water loss with N/V and decreased free water intake serum na w/o significant change will start D5 1/2 NS at 84cc per hour Trend Na daily can increase free water via PEG tube once it is determined pt is able to tolerate feeds at a higher rate #B/L PNA r/o aspiration Continue empiric abx as per ID Check cultures #Vomiting/Nausea now resolved GI follow up #Hypertension BP is reasonably controlled continue amlodipine and metoprolol #Leukocytosis f/u cultures Abx as per ID Thank you Will follow Lucas Fontaine DO Problem List - Problems (1) Hypernatremia Code(s): E87.0 - HYPEROSMOLALITY AND HYPERNATREMIA (2) Pneumonia Code(s): J18.9 - PNEUMONIA, UNSPECIFIED ORGANISM Qualifiers: Pneumonia type: aspiration pneumonia Aspiration pneumonia type: unspecified Laterality: bilateral Lung location: unspecified part of lung Qualified Code(s): J69.0 - Pneumonitis due to inhalation of food and vomit (3) Abdominal pain Code(s): R10.9 - UNSPECIFIED ABDOMINAL PAIN (4) CVA (cerebral infarction) Code(s): I63.9 - CEREBRAL INFARCTION, UNSPECIFIED (5) HTN (hypertension) Code(s): I10 - ESSENTIAL (PRIMARY) HYPERTENSION (6) SBO (small bowel obstruction) Code(s): K56.69 - OTHER INTESTINAL OBSTRUCTION
[2016-12-12] MEDS: ARFORMOTEROL TARTRATE 15 MCG/2 ML VIAL NEB SCH ×2 (10:45→21:15)
[2016-12-12] MEDS: DEXTROSE 5%-1/3 NS - 500 ML IV SCH (10:50)
--- NOTE | 2016-12-12 14:14 | PN ---
Progress Note, Physician History of Present Illness: Pt w/o SOB, CP, palp, abd pain - Current Medication List Current Medications: Active Medications Acetaminophen (Tylenol Oral Solution -) 650 mg PEG Q6H PRN PRN Reason: FEVER OR PAIN Last Admin: 12/12/16 09:29 Dose: 650 mg Amlodipine Besylate (Norvasc -) 10 mg PEG DAILY [facility] Last Admin: 12/12/16 09:29 Dose: 10 mg Arformoterol Tartrate (Brovana (Restricted To Pulmonology/Resp) -) 1 amp NEB BID [facility] Last Admin: 12/12/16 10:45 Dose: 1 amp Aspirin (Asa -) 81 mg PEG DAILY [facility] Last Admin: 12/12/16 09:30 Dose: 81 mg Heparin Sodium (Porcine) (Heparin -) 5,000 unit SQ BID [facility] Last Admin: 12/12/16 09:30 Dose: 5,000 unit Dextrose/Sodium Chloride (D5-1/3ns -) 500 mls @ 83 mls/hr IV ASDIR [facility] Last Admin: 12/12/16 10:50 Dose: 83 mls/hr Lactobacillus Acidophilus (Bacid -) 1 tab PEG BID [facility] Last Admin: 12/12/16 09:30 Dose: 1 tab Magnesium Oxide (Mag-Ox -) 400 mg PEG BID [facility] Last Admin: 12/12/16 09:30 Dose: 400 mg Metoclopramide HCl (Reglan Oral Solution -) 10 mg GT TIDAC PRN PRN Reason: NAUSEA AND/OR VOMITING Metoprolol Tartrate (Lopressor -) 50 mg PEG BID [facility] Last Admin: 12/12/16 09:30 Dose: 50 mg Mirtazapine (Remeron -) 15 mg PEG HS [facility] Last Admin: 12/11/16 22:07 Dose: 15 mg Potassium Chloride (Potassium Chloride Oral Liquid) 20 meq PEG DAILY [facility] Last Admin: 12/12/16 09:29 Dose: 20 meq Scopolamine HBr (Transderm-Scop -) 1 patch TD Q3D@1000 [facility] Last Admin: 12/10/16 10:16 Dose: 1 patch Tamsulosin HCl (Flomax -) 0.4 mg NR DAILY@0830 [facility] Last Admin: 12/12/16 09:24 Dose: 0.4 mg - Objective Vital Signs: Vital Signs Temperature 97.9 F 12/12/16 14:00 Pulse Rate 80 08/05/17 14:00 Respiratory Rate 20 12/12/16 14:00 Blood Pressure 125/71 12/12/16 14:00 O2 Sat by Pulse Oximetry (%) 100 12/12/16 09:00 Constitutional: Yes: No Distress, Calm Cardiovascular: Yes: Regular Rate and Rhythm, S1, S2 Respiratory: Yes: Regular, Other (coarse BS bilat.) Gastrointestinal: Yes: Normal Bowel Sounds, Soft. No: Tenderness Edema: No Neurological: Yes: Alert, Oriented Labs: CBC, BMP 12/12/16 07:40 12/12/16 07:40 INR, PTT INR 1.02 (0.82-1.09) 12/09/16 23:10 Problem List - Problems (1) Pneumonia Code(s): J18.9 - PNEUMONIA, UNSPECIFIED ORGANISM Qualifiers: Pneumonia type: aspiration pneumonia Aspiration pneumonia type: unspecified Laterality: bilateral Lung location: unspecified part of lung Qualified Code(s): J69.0 - Pneumonitis due to inhalation of food and vomit (2) Hypernatremia Code(s): E87.0 - HYPEROSMOLALITY AND HYPERNATREMIA (3) SBO (small bowel obstruction) Code(s): K56.69 - OTHER INTESTINAL OBSTRUCTION (4) Dysphagia Code(s): R13.10 - DYSPHAGIA, UNSPECIFIED (5) Aspiration into airway Code(s): T17.908A - UNSP FB IN RESP TRACT, PART UNSP CAUSING OTH INJURY, INIT (6) S/P percutaneous endoscopic gastrostomy (PEG) tube placement Code(s): Z93.1 - GASTROSTOMY STATUS (7) Diastolic CHF Code(s): I50.30 - UNSPECIFIED DIASTOLIC (CONGESTIVE) HEART FAILURE (8) Urinary retention Code(s): R33.9 - RETENTION OF URINE, UNSPECIFIED Assessment/Plan TF are adjusted Pt started on IVF GI, Renal, ID consult appreciated AM labs
[2016-12-12] MEDS: MIRTAZAPINE 15 MG TABLET (FP) PEG SCH (21:12)
[2016-12-13] MEDS: DEXTROSE 5%-1/3 NS - 500 ML IV SCH ×3 (00:12→17:15)
[2016-12-13 07:33] LABS: MCHC 31.6 g/dl (32.0-35.9); MEAN CELL VOLUME 85.2 fl (80-96); MEAN PLT VOLUME 8.3 fl (7.5-11.1); PLATELET COUNT 526 K/MM3 (134-434); RDW 16.2 % (11.9-15.9); WHITE BLOOD COUNT 8.6 K/mm3 (4.0-10.0)
--- NOTE | 2016-12-13 07:58 | PN ---
Progress Note, Physician Chief Complaint: ID Remains stable off antibiotics Afebrile NAD - Current Medication List Current Medications: Active Medications Acetaminophen (Tylenol Oral Solution -) 650 mg PEG Q6H PRN PRN Reason: FEVER OR PAIN Last Admin: 12/12/16 09:29 Dose: 650 mg Amlodipine Besylate (Norvasc -) 10 mg PEG DAILY [facility] Last Admin: 12/12/16 09:29 Dose: 10 mg Arformoterol Tartrate (Brovana (Restricted To Pulmonology/Resp) -) 1 amp NEB BID [facility] Last Admin: 12/12/16 21:15 Dose: 1 amp Aspirin (Asa -) 81 mg PEG DAILY [facility] Last Admin: 12/12/16 09:30 Dose: 81 mg Heparin Sodium (Porcine) (Heparin -) 5,000 unit SQ BID [facility] Last Admin: 12/12/16 21:13 Dose: 5,000 unit Dextrose/Sodium Chloride (D5-1/3ns -) 500 mls @ 83 mls/hr IV ASDIR [facility] Last Admin: 12/13/16 00:12 Dose: 83 mls/hr Lactobacillus Acidophilus (Bacid -) 1 tab PEG BID [facility] Last Admin: 12/12/16 21:12 Dose: 1 tab Magnesium Oxide (Mag-Ox -) 400 mg PEG BID [facility] Last Admin: 12/12/16 21:12 Dose: 400 mg Metoclopramide HCl (Reglan Oral Solution -) 10 mg GT TIDAC PRN PRN Reason: NAUSEA AND/OR VOMITING Metoprolol Tartrate (Lopressor -) 50 mg PEG BID [facility] Last Admin: 12/12/16 21:12 Dose: 50 mg Mirtazapine (Remeron -) 15 mg PEG HS [facility] Last Admin: 12/12/16 21:12 Dose: 15 mg Potassium Chloride (Potassium Chloride Oral Liquid) 20 meq PEG DAILY [facility] Last Admin: 12/12/16 09:29 Dose: 20 meq Scopolamine HBr (Transderm-Scop -) 1 patch TD Q3D@1000 [facility] Last Admin: 12/10/16 10:16 Dose: 1 patch Tamsulosin HCl (Flomax -) 0.4 mg NR DAILY@0830 [facility] Last Admin: 12/12/16 09:24 Dose: 0.4 mg - Objective Vital Signs: Vital Signs Temperature 97.6 F 12/13/16 06:29 Pulse Rate 92 H 12/13/16 06:29 Respiratory Rate 18 12/13/16 06:29 Blood Pressure 147/66 12/13/16 06:29 O2 Sat by Pulse Oximetry (%) 100 12/12/16 21:00 Constitutional: Yes: No Distress HENT: Yes: WNL, Atraumatic Neck: Yes: WNL, Supple Respiratory: Yes: WNL, Regular, CTA Bilaterally Gastrointestinal: Yes: Other (PEG). No: Tenderness, Tenderness, Epigastrium Labs: CBC, BMP 12/13/16 06:10 INR, PTT INR 1.02 (0.82-1.09) 12/09/16 23:10 Assessment/Plan Microbiology 12/10/16 09:10 Blood - Peripheral Venous Blood Culture - Preliminary NO GROWTH OBTAINED AFTER 48 HOURS, INCUBATION TO CONTINUE FOR 3 DAYS. 12/10/16 09:10 Blood - Peripheral Venous Blood Culture - Preliminary NO GROWTH OBTAINED AFTER 48 HOURS, INCUBATION TO CONTINUE FOR 3 DAYS. Laboratory Tests 12/12/16 12/13/16 07:40 06:10 WBC 8.6 Hgb 11.9 Plt Count 526 H BUN 12 Creatinine 0.7 Assessment For now continue to observe off antibiotics Urine c/s pending Alexandru MARRERO
[2016-12-13 08:15] LABS: ANION GAP 7 (8-16); CALCIUM 9.2 mg/dL (8.5-10.1); CO2 31 mmol/L (21-32); CREATININE 0.5 mg/dL (0.7-1.3); GLUCOSE,RANDOM 99 mg/dL (74-106)
[2016-12-13] MEDS: TAMSULOSIN HCL 0.4 MG CAP.ER.24H (FP) NR SCH (08:44)
[2016-12-13] MEDS ORDERED: DEXTROSE 5%-1/3 NS - 500 ML IV SCH (08:56)
[2016-12-13] MEDS ORDERED: PT OWN MED DRAWER 7, Y5N ONE (09:49)
[2016-12-13] MEDS: LACTOBACILLUS ACIDOPHILUS 1 EACH TAB (FP) PEG SCH ×2 (09:56→21:12)
[2016-12-13] MEDS: ASPIRIN 81 MG CHEWABLE TABLETS PEG SCH (09:56)
[2016-12-13] MEDS: METOPROLOL TARTRATE 50 MG TABLET (FP) PEG SCH ×2 (09:56→21:12)
[2016-12-13] MEDS: MAGNESIUM OXIDE 400 MG TABLET (FP) PEG SCH ×2 (09:57→21:12)
[2016-12-13] MEDS: HEPARIN NA (PORCINE) 5,000 UNITS/ML 1ML VIAL SQ SCH ×2 (09:57→21:13)
[2016-12-13] MEDS: POTASSIUM CHLORIDE ORAL LIQUID 20 MEQ/15 ML PEG SCH (09:57)
[2016-12-13] MEDS: amLODIPine BESYLATE 10 MG TABLET (FP) PEG SCH (09:57)
[2016-12-13] MEDS: SCOPOLAMINE HYDROBROMIDE 1 PATCH PATCH.TD72 TD SCH (10:19)
[2016-12-13] MEDS: ARFORMOTEROL TARTRATE 15 MCG/2 ML VIAL NEB SCH ×2 (11:32→22:06)
--- NOTE | 2016-12-13 12:40 | PN ---
Progress Note, Physician History of Present Illness: Pt w/o SOB, CP, palp, abd pain. Pt's cough is decreased - Current Medication List Current Medications: Active Medications Acetaminophen (Tylenol Oral Solution -) 650 mg PEG Q6H PRN PRN Reason: FEVER OR PAIN Last Admin: 12/12/16 09:29 Dose: 650 mg Amlodipine Besylate (Norvasc -) 10 mg PEG DAILY [facility] Last Admin: 12/13/16 09:57 Dose: 10 mg Arformoterol Tartrate (Brovana (Restricted To Pulmonology/Resp) -) 1 amp NEB BID [facility] Last Admin: 12/13/16 11:32 Dose: 1 amp Aspirin (Asa -) 81 mg PEG DAILY [facility] Last Admin: 12/13/16 09:56 Dose: 81 mg Heparin Sodium (Porcine) (Heparin -) 5,000 unit SQ BID [facility] Last Admin: 12/13/16 09:57 Dose: 5,000 unit Dextrose/Sodium Chloride (D5-1/3ns -) 500 mls @ 50 mls/hr IV Q10H [facility] Last Admin: 12/13/16 11:17 Dose: 50 mls/hr Lactobacillus Acidophilus (Bacid -) 1 tab PEG BID [facility] Last Admin: 12/13/16 09:56 Dose: 1 tab Magnesium Oxide (Mag-Ox -) 400 mg PEG BID [facility] Last Admin: 12/13/16 09:57 Dose: 400 mg Metoclopramide HCl (Reglan Oral Solution -) 10 mg GT TIDAC PRN PRN Reason: NAUSEA AND/OR VOMITING Metoprolol Tartrate (Lopressor -) 50 mg PEG BID [facility] Last Admin: 12/13/16 09:56 Dose: 50 mg Mirtazapine (Remeron -) 15 mg PEG HS [facility] Last Admin: 12/12/16 21:12 Dose: 15 mg Potassium Chloride (Potassium Chloride Oral Liquid) 20 meq PEG DAILY [facility] Last Admin: 12/13/16 09:57 Dose: 20 meq Scopolamine HBr (Transderm-Scop -) 1 patch TD Q3D@1000 [facility] Last Admin: 12/13/16 10:19 Dose: 1 patch Tamsulosin HCl (Flomax -) 0.4 mg NR DAILY@0830 [facility] Last Admin: 12/13/16 08:44 Dose: 0.4 mg - Objective Vital Signs: Vital Signs Temperature 98 F 12/13/16 08:40 Pulse Rate 88 12/13/16 08:40 Respiratory Rate 18 12/13/16 08:40 Blood Pressure 146/86 12/13/16 08:40 O2 Sat by Pulse Oximetry (%) 98 12/13/16 09:00 Constitutional: Yes: No Distress, Calm Cardiovascular: Yes: Regular Rate and Rhythm, S1, S2 Respiratory: Yes: Regular, Other (coarse BS bilat). No: Rales Gastrointestinal: Yes: Normal Bowel Sounds, Soft. No: Tenderness Edema: No Neurological: Yes: Alert, Oriented Labs: CBC, BMP 12/13/16 06:10 12/13/16 06:10 INR, PTT INR 1.02 (0.82-1.09) 12/09/16 23:10 Problem List - Problems (1) Pneumonia Code(s): J18.9 - PNEUMONIA, UNSPECIFIED ORGANISM Qualifiers: Pneumonia type: aspiration pneumonia Aspiration pneumonia type: unspecified Laterality: bilateral Lung location: unspecified part of lung Qualified Code(s): J69.0 - Pneumonitis due to inhalation of food and vomit (2) Hypernatremia Code(s): E87.0 - HYPEROSMOLALITY AND HYPERNATREMIA (3) SBO (small bowel obstruction) Code(s): K56.69 - OTHER INTESTINAL OBSTRUCTION (4) Dysphagia Code(s): R13.10 - DYSPHAGIA, UNSPECIFIED (5) Aspiration into airway Code(s): T17.908A - UNSP FB IN RESP TRACT, PART UNSP CAUSING OTH INJURY, INIT (6) S/P percutaneous endoscopic gastrostomy (PEG) tube placement Code(s): Z93.1 - GASTROSTOMY STATUS (7) Diastolic CHF Code(s): I50.30 - UNSPECIFIED DIASTOLIC (CONGESTIVE) HEART FAILURE (8) Urinary retention Code(s): R33.9 - RETENTION OF URINE, UNSPECIFIED Assessment/Plan TF are adjusted to 50 ml/hr ( per Space Officer evaluation) Pt on IVF GI, Renal, ID consult appreciated AM labs
[2016-12-13] MEDS: MIRTAZAPINE 15 MG TABLET (FP) PEG SCH (21:12)
[2016-12-14] MEDS: DEXTROSE 5%-1/3 NS - 500 ML IV SCH ×4 (03:20→13:25)
[2016-12-14] MEDS: TAMSULOSIN HCL 0.4 MG CAP.ER.24H (FP) NR SCH (08:11)
[2016-12-14 08:37] LABS: MCH 27.5 pg (25.7-33.7); MCHC 32.6 g/dl (32.0-35.9); MEAN CELL VOLUME 84.4 fl (80-96); MEAN PLT VOLUME 7.7 fl (7.5-11.1); PLATELET COUNT 484 K/MM3 (134-434); RDW 16.2 % (11.9-15.9); WHITE BLOOD COUNT 7.8 K/mm3 (4.0-10.0)
[2016-12-14 09:04] LABS: ANION GAP 5 (8-16); CALCIUM 8.9 mg/dL (8.5-10.1); CO2 33 mmol/L (21-32); CREATININE 0.6 mg/dL (0.7-1.3); GLUCOSE,RANDOM 125 mg/dL (74-106)
[2016-12-14] MEDS: ARFORMOTEROL TARTRATE 15 MCG/2 ML VIAL NEB SCH ×2 (09:50→21:41)
[2016-12-14] MEDS ORDERED: PT OWN MED DRAWER 7, Y5N ONE (10:23)
[2016-12-14] MEDS: METOPROLOL TARTRATE 50 MG TABLET (FP) PEG SCH ×2 (10:36→22:06)
[2016-12-14] MEDS: ASPIRIN 81 MG CHEWABLE TABLETS PEG SCH (10:36)
[2016-12-14] MEDS: LACTOBACILLUS ACIDOPHILUS 1 EACH TAB (FP) PEG SCH ×2 (10:36→22:06)
[2016-12-14] MEDS: amLODIPine BESYLATE 10 MG TABLET (FP) PEG SCH (10:37)
[2016-12-14] MEDS: MAGNESIUM OXIDE 400 MG TABLET (FP) PEG SCH ×2 (10:37→22:07)
[2016-12-14] MEDS: HEPARIN NA (PORCINE) 5,000 UNITS/ML 1ML VIAL SQ SCH ×2 (10:37→22:06)
[2016-12-14] MEDS: POTASSIUM CHLORIDE ORAL LIQUID 20 MEQ/15 ML PEG SCH (10:37)
--- NOTE | 2016-12-14 16:28 | PN ---
Progress Note (short form) - Note Progress Note: Renal followup for hypernatremia Pt seen and examined at the bedside no acute complaints tolerating tube feeds Vital Signs Temperature 98.6 F 12/14/16 15:38 Pulse Rate 74 12/14/16 15:38 Respiratory Rate 20 12/14/16 15:38 Blood Pressure 134/75 12/14/16 15:38 O2 Sat by Pulse Oximetry (%) 95 12/14/16 10:33 Intake & Output 12/11/16 12/12/16 12/13/16 12/14/16 23:59 23:59 23:59 23:59 Intake Total 1350 1600 3460 1380 Output Total 9951 917 3788 1500 Balance -887 079 8165 -120 Weight 152 lb 1 oz 103 lb 11.2 oz Gen: NAD CVS: RRR Lungs: Dec Bs at lung bases Abd: soft NT Ext: No edema CBC, BMP 12/14/16 07:05 12/14/16 07:05 Current Medications Acetaminophen (Tylenol Oral Solution -) 650 mg PEG Q6H PRN PRN Reason: FEVER OR PAIN Last Admin: 12/12/16 09:29 Dose: 650 mg Amlodipine Besylate (Norvasc -) 10 mg PEG DAILY [facility] Last Admin: 12/14/16 10:37 Dose: 10 mg Arformoterol Tartrate (Brovana (Restricted To Pulmonology/Resp) -) 1 amp NEB BID [facility] Last Admin: 12/14/16 09:50 Dose: 1 amp Aspirin (Asa -) 81 mg PEG DAILY [facility] Last Admin: 12/14/16 10:36 Dose: 81 mg Heparin Sodium (Porcine) (Heparin -) 5,000 unit SQ BID [facility] Last Admin: 12/14/16 10:37 Dose: 5,000 unit Dextrose/Sodium Chloride (D5-1/3ns -) 500 mls @ 50 mls/hr IV Q10H [facility] Last Admin: 12/14/16 13:25 Dose: Not Given Lactobacillus Acidophilus (Bacid -) 1 tab PEG BID [facility] Last Admin: 12/14/16 10:36 Dose: 1 tab Magnesium Oxide (Mag-Ox -) 400 mg PEG BID [facility] Last Admin: 12/14/16 10:37 Dose: 400 mg Metoclopramide HCl (Reglan Oral Solution -) 10 mg GT TIDAC PRN PRN Reason: NAUSEA AND/OR VOMITING Metoprolol Tartrate (Lopressor -) 50 mg PEG BID [facility] Last Admin: 12/14/16 10:36 Dose: 50 mg Mirtazapine (Remeron -) 15 mg PEG HS [facility] Last Admin: 12/13/16 21:12 Dose: 15 mg Potassium Chloride (Potassium Chloride Oral Liquid) 20 meq PEG DAILY [facility] Last Admin: 12/14/16 10:37 Dose: 20 meq Scopolamine HBr (Transderm-Scop -) 1 patch TD Q3D@1000 [facility] Last Admin: 12/13/16 10:19 Dose: 1 patch Tamsulosin HCl (Flomax -) 0.4 mg NR DAILY@0830 [facility] Last Admin: 12/14/16 08:11 Dose: 0.4 mg A/P 81 year old Gentleman with PMhx of CVA, Hypertension, Hyperlipidemia, COPD, AAA who presented with Abd pain, Nausea and vomiting at [facility]. #Hypernatremia serum na now improved to normal limits can d/c IVF and continue tube feeds with free water trend na daily #B/L PNA r/o aspiration Continue empiric abx as per ID Check cultures #Vomiting/Nausea now resolved #Hypertension BP is reasonably controlled continue amlodipine and metoprolol #Leukocytosis f/u cultures Abx as per ID Thank you Will follow Lucas Fontaine DO Problem List - Problems (1) Hypernatremia Code(s): E87.0 - HYPEROSMOLALITY AND HYPERNATREMIA (2) Pneumonia Code(s): J18.9 - PNEUMONIA, UNSPECIFIED ORGANISM Qualifiers: Pneumonia type: aspiration pneumonia Aspiration pneumonia type: unspecified Laterality: bilateral Lung location: unspecified part of lung Qualified Code(s): J69.0 - Pneumonitis due to inhalation of food and vomit (3) Abdominal pain Code(s): R10.9 - UNSPECIFIED ABDOMINAL PAIN (4) CVA (cerebral infarction) Code(s): I63.9 - CEREBRAL INFARCTION, UNSPECIFIED (5) HTN (hypertension) Code(s): I10 - ESSENTIAL (PRIMARY) HYPERTENSION (6) SBO (small bowel obstruction) Code(s): K56.69 - OTHER INTESTINAL OBSTRUCTION
--- NOTE | 2016-12-14 17:56 | PN ---
Progress Note, Physician History of Present Illness: Pt w/o SOB, CP, palp, abd pain. Pt's cough is decreased - Current Medication List Current Medications: Active Medications Acetaminophen (Tylenol Oral Solution -) 650 mg PEG Q6H PRN PRN Reason: FEVER OR PAIN Last Admin: 12/12/16 09:29 Dose: 650 mg Amlodipine Besylate (Norvasc -) 10 mg PEG DAILY [facility] Last Admin: 12/14/16 10:37 Dose: 10 mg Arformoterol Tartrate (Brovana (Restricted To Pulmonology/Resp) -) 1 amp NEB BID [facility] Last Admin: 12/14/16 09:50 Dose: 1 amp Aspirin (Asa -) 81 mg PEG DAILY [facility] Last Admin: 12/14/16 10:36 Dose: 81 mg Heparin Sodium (Porcine) (Heparin -) 5,000 unit SQ BID [facility] Last Admin: 12/14/16 10:37 Dose: 5,000 unit Dextrose/Sodium Chloride (D5-1/3ns -) 500 mls @ 50 mls/hr IV Q10H [facility] Last Admin: 12/14/16 13:25 Dose: Not Given Lactobacillus Acidophilus (Bacid -) 1 tab PEG BID [facility] Last Admin: 12/14/16 10:36 Dose: 1 tab Magnesium Oxide (Mag-Ox -) 400 mg PEG BID [facility] Last Admin: 12/14/16 10:37 Dose: 400 mg Metoclopramide HCl (Reglan Oral Solution -) 10 mg GT TIDAC PRN PRN Reason: NAUSEA AND/OR VOMITING Metoprolol Tartrate (Lopressor -) 50 mg PEG BID [facility] Last Admin: 12/14/16 10:36 Dose: 50 mg Mirtazapine (Remeron -) 15 mg PEG HS [facility] Last Admin: 12/13/16 21:12 Dose: 15 mg Potassium Chloride (Potassium Chloride Oral Liquid) 20 meq PEG DAILY [facility] Last Admin: 12/14/16 10:37 Dose: 20 meq Scopolamine HBr (Transderm-Scop -) 1 patch TD Q3D@1000 [facility] Last Admin: 12/13/16 10:19 Dose: 1 patch Tamsulosin HCl (Flomax -) 0.4 mg NR DAILY@0830 [facility] Last Admin: 12/14/16 08:11 Dose: 0.4 mg - Objective Vital Signs: Vital Signs Temperature 98.6 F 12/14/16 15:38 Pulse Rate 74 12/14/16 15:38 Respiratory Rate 20 12/14/16 15:38 Blood Pressure 134/75 12/14/16 15:38 O2 Sat by Pulse Oximetry (%) 95 12/14/16 10:33 Constitutional: Yes: No Distress, Calm Cardiovascular: Yes: Regular Rate and Rhythm, S1, S2 Respiratory: Yes: Regular, CTA Bilaterally. No: Rales, Rhonchi Gastrointestinal: Yes: Normal Bowel Sounds, Soft. No: Tenderness Edema: No Neurological: Yes: Alert, Oriented Labs: CBC, BMP 12/14/16 07:05 12/14/16 07:05 INR, PTT INR 1.02 (0.82-1.09) 12/09/16 23:10 Problem List - Problems (1) Pneumonia Code(s): J18.9 - PNEUMONIA, UNSPECIFIED ORGANISM Qualifiers: Pneumonia type: aspiration pneumonia Aspiration pneumonia type: unspecified Laterality: bilateral Lung location: unspecified part of lung Qualified Code(s): J69.0 - Pneumonitis due to inhalation of food and vomit (2) Hypernatremia Code(s): E87.0 - HYPEROSMOLALITY AND HYPERNATREMIA (3) SBO (small bowel obstruction) Code(s): K56.69 - OTHER INTESTINAL OBSTRUCTION (4) Dysphagia Code(s): R13.10 - DYSPHAGIA, UNSPECIFIED (5) Aspiration into airway Code(s): T17.908A - UNSP FB IN RESP TRACT, PART UNSP CAUSING OTH INJURY, INIT (6) S/P percutaneous endoscopic gastrostomy (PEG) tube placement Code(s): Z93.1 - GASTROSTOMY STATUS (7) Diastolic CHF Code(s): I50.30 - UNSPECIFIED DIASTOLIC (CONGESTIVE) HEART FAILURE (8) Urinary retention Code(s): R33.9 - RETENTION OF URINE, UNSPECIFIED Assessment/Plan TF are adjusted to 50 ml/hr ( per Farm Equipment Service Technician evaluation) Pt off IVF; to increase TF water GI, Renal, ID consult appreciated AM labs
[2016-12-14] MEDS: MIRTAZAPINE 15 MG TABLET (FP) PEG SCH (22:07)
[2016-12-15 09:20] LABS: ANION GAP 6 (8-16); CO2 33 mmol/L (21-32); CREATININE 0.5 mg/dL (0.7-1.3); GLUCOSE,RANDOM 116 mg/dL (74-106)
[2016-12-15] MEDS ORDERED: PT OWN MED DRAWER 7, Y5N ONE (09:31)
[2016-12-15] MEDS: POTASSIUM CHLORIDE ORAL LIQUID 20 MEQ/15 ML PEG SCH (09:42)
[2016-12-15] MEDS: MAGNESIUM OXIDE 400 MG TABLET (FP) PEG SCH (09:42)
[2016-12-15] MEDS: ASPIRIN 81 MG CHEWABLE TABLETS PEG SCH (09:42)
[2016-12-15] MEDS: HEPARIN NA (PORCINE) 5,000 UNITS/ML 1ML VIAL SQ SCH (09:42)
[2016-12-15] MEDS: amLODIPine BESYLATE 10 MG TABLET (FP) PEG SCH (09:42)
[2016-12-15] MEDS: TAMSULOSIN HCL 0.4 MG CAP.ER.24H (FP) NR SCH (09:42)
[2016-12-15] MEDS: LACTOBACILLUS ACIDOPHILUS 1 EACH TAB (FP) PEG SCH (09:42)
[2016-12-15] MEDS: DEXTROSE 5%-1/3 NS - 500 ML IV SCH (09:43)
[2016-12-15] MEDS: ARFORMOTEROL TARTRATE 15 MCG/2 ML VIAL NEB SCH (10:25)
--- NOTE | 2016-12-15 10:36 | DS ---
Physical Examination Vital Signs: Vital Signs Temperature 98.9 F 12/15/16 06:00 Pulse Rate 73 12/15/16 06:00 Respiratory Rate 20 12/15/16 06:00 Blood Pressure 127/74 12/15/16 06:00 O2 Sat by Pulse Oximetry (%) 95 12/14/16 21:00 Findings/Remarks: alert awake NAD VSS afebrile tolerated feeds well; no c/o d/w pt and ; cleared for DC; they prefer to return to [facility] d/w staff f/u as advised Constitutional: Yes: No Distress, Calm Eyes: Yes: Conjunctiva Clear HENT: Yes: Atraumatic Neck: Yes: Supple Cardiovascular: Yes: Regular Rate and Rhythm Respiratory: Yes: CTA Bilaterally Gastrointestinal: Yes: Soft, Other (peg clean site). No: Distention, Tenderness Renal/: No: CVA Tenderness - Left, CVA Tenderness - Right, Hematuria Musculoskeletal: No: Joint Stiffness, Joint Swelling Extremities: No: Cold, Cool, Cyanosis Edema: No Peripheral Pulses WNL: Yes Integumentary: No: Rash, Venous Stasis Changes Neurological: Yes: Alert. No: Oriented ...Motor Strength: WNL Psychiatric: Yes: Alert. No: Oriented, Agitated, Suicidal Ideation Labs: CBC, BMP 12/14/16 07:05 12/15/16 07:35 Discharge Summary Reason For Visit: PNEUMONIA Current Active Problems Aspiration into airway (Acute) Dehydration (Acute) Hypernatremia (Acute) Pneumonia (Acute) S/P percutaneous endoscopic gastrostomy (PEG) tube placement (Acute) Procedures: Principal: vomiting r/o SBO Other Procedures: cough r/o aspiration PNA Hospital Course: PEG feeds adjusted; GI and ID consulted; IV ATB per ID; also renal eval for HyperNa; IVF and PEG free water; improved with above; DC to [place] f/u as advised Condition: Improved - Instructions Diet, Activity, Other Instructions: PEG feeds and free water/peg as ordered 50 cc/h feeds and 50 cc/h free water aspiration PFX, HOB decubs PFX, turn in bed falls PFX DVT pfx sq heparin gastric PFX as ordered speech and swallow eval in [place]; PT rehab in [place] d/w pt and staff and all the above Referrals: Androne,Gini S [Primary Care Provider] - Disposition: [facility] - Home Medications Comprehensive Discharge Medication List: Ambulatory Orders Aspirin [ASA -] 81 mg PEG DAILY 10/16/16 Amlodipine Besylate [Norvasc -] 10 mg PEG DAILY tablet 12/08/16 Arformoterol Tartrate [Brovana -] 1 amp NEB BID amp 12/08/16 Heparin - 5,000 unit SQ BID vial 12/08/16 Insulin Sliding Scale [Novolog Vial Sliding Scale -] 1 vial SQ ACHS units 12/08 Magnesium Oxide [Mag-Ox -] 400 mg PEG BID tablet 12/08/16 Metoclopramide Oral Soln [Reglan Oral Solution -] 10 mg GT TIDAC PRN #300 ml 05/26 Metoprolol Tartrate [Lopressor -] 50 mg PEG BID tablet 12/08/16 Mirtazapine [Remeron -] 15 mg PEG HS tablet 12/08/16 Potassium Chloride [Potassium Chloride Oral Liquid] 20 meq PEG DAILY #450 ml 05/26 Sennosides [Senna -] 2 tab PEG PRN PRN MDD 2 12/09/16 Tamsulosin HCl [Flomax -] 0.4 mg PEG DAILY@0830 12/09/16 Lactobacillus Acidophilus [Bacid -] 1 each PEG BID 12/11/16 Lactobacillus Acidophilus [Bacid -] 1 tab PEG BID tab 12/15/16 Scopolamine Hydrobromide [Transderm-Scop -] 1 patch TD Q3D@1000 PRN #10 patch
[2016-12-15 11:24] VITALS: PULSE 81
[2016-12-15] MEDS: METOPROLOL TARTRATE 50 MG TABLET (FP) PEG SCH (12:55)
[2016-12-15 13:02] VITALS: BP 130/80; TEMP 99
== END 2016-12-15 14:12 | DRG 177 ==
LOC: JER 21:09 → JERBED 12-10 02:01 → J8W 12-10 13:32
PROVIDERS: ADMIT Specialist; ATTEND Specialist
PROC: 3E0H76Z Introduction of Nutritional Substance into Lower GI, Via Natural or Artificial Opening (ICD-10-PCS; principal; 2016-12-10)
DX: J69.0 Pneumonitis due to inhalation of food and vomit (principal); E43 Unspecified severe protein-calorie malnutrition; I69.351 Hemiplegia and hemiparesis following cerebral infarction affecting right dominant side; E87.0 Hyperosmolality and hypernatremia; K56.69 Other intestinal obstruction; I50.30 Unspecified diastolic (congestive) heart failure; Z68.1 Body mass index [BMI] 19.9 or less, adult; E78.5 Hyperlipidemia, unspecified; J44.9 Chronic obstructive pulmonary disease, unspecified; E86.0 Dehydration; R13.10 Dysphagia, unspecified; D72.828 Other elevated white blood cell count; R33.8 Other retention of urine; K59.09 Other constipation; R11.2 Nausea with vomiting, unspecified; I11.0 Hypertensive heart disease with heart failure; I71.4 Abdominal aortic aneurysm, without rupture; Z87.891 Personal history of nicotine dependence; Z66 Do not resuscitate; Z93.1 Gastrostomy status
CPT/HCPCS: 36415; 71010-TC; 74020-TC; 80048; 80053; 81003; 81015; 83735; 84100; 85025; 85027; 85610; 87040; 87086; 93005; 93010; 94640; 97116-GP; 97162-GP; 99285-25; J1644

== ENCOUNTER 2016-12-20 03:57 | Inpatient (IN) | payer OTHER, BC ==
--- NOTE | 2016-12-20 04:27 | PDOC ---
Attending Attestation - Resident Resident Name: Radha Hernandez - HPI HPI: 12/20/16 04:52 Pt comes after fall in the [place]. Now with left anterior lower rib pain and left flank pain. He also pulled out his vieyra cath accidentally. Pt is awake and answering questions and following commands. Pt smells - poor hygeine. We washed him, suctioned his mouth and swabstick cleaned oral cavity. - Physicial Exam PE: 12/20/16 04:55 Pt has left flank and left lower chest pain. Pt had hematuria after we replaced the vieyra cath. Pt has no broken skin at sacrum; no ulcers. Right forearm scrapes, minor and abraded skin. PEG site is clean and clear. - Medical Decision Making 12/20/16 04:56 Pt will have CXR and left rib series. UA;urine culture will be sent. Pt will be given tylenol loquid thru his PEG tube. 12/20/16 06:46 Pt has nitrite positive UTI; we will teat with levaquin 500mg via PEG; We spoke to VAMSI Ruelas for patient and he wants patient admitted to observation med/surg.
--- NOTE | 2016-12-20 04:40 | PDOC ---
History of Present Illness - General Chief Complaint: Injury Stated Complaint: FALL Time Seen by Provider: 12/20/16 04:11 History Source: EMS Exam Limitations: Dementia - History of Present Illness Initial Comments: This is an 81 yo male with h/o BPH, CVA, COPD, PNA, HTN, AAA, HLD, intestinal obstruction, and G-tube use (current) who presents BIBA from his care facility for a fall and for replacement of Chavarria catheter. 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 The patient himself complains of left back and rib pain. He is otherwise unable to provide his recent medical history d/t memory loss. The patient presents with records from his care facility noting that he is DNR. Past History - Past Medical History Allergies/Adverse Reactions: Allergies Allergy/AdvReac Type Severity Reaction Status Date / Time No Known Allergies Allergy Verified 12/20/16 04:19 Home Medications: Ambulatory Orders Aspirin [ASA -] 81 mg PEG DAILY 10/16/16 Amlodipine Besylate [Norvasc -] 10 mg PEG DAILY tablet 12/08/16 Arformoterol Tartrate [Brovana -] 1 amp NEB BID amp 12/08/16 Heparin - 5,000 unit SQ BID vial 12/08/16 Insulin Sliding Scale [Novolog Vial Sliding Scale -] 1 vial SQ ACHS units 12/08 Magnesium Oxide [Mag-Ox -] 400 mg PEG BID tablet 12/08/16 Metoclopramide Oral Soln [Reglan Oral Solution -] 10 mg GT TIDAC PRN #300 ml 05/26 Metoprolol Tartrate [Lopressor -] 50 mg PEG BID tablet 12/08/16 Mirtazapine [Remeron -] 15 mg PEG HS tablet 12/08/16 Potassium Chloride [Potassium Chloride Oral Liquid] 20 meq PEG DAILY #450 ml 05/26 Sennosides [Senna -] 2 tab PEG PRN PRN MDD 2 12/09/16 Tamsulosin HCl [Flomax -] 0.4 mg PEG DAILY@0830 12/09/16 Lactobacillus Acidophilus [Bacid -] 1 each PEG BID 12/11/16 Lactobacillus Acidophilus [Bacid -] 1 tab PEG BID tab 12/15/16 Scopolamine Hydrobromide [Transderm-Scop -] 1 patch TD Q3D@1000 PRN #10 patch Levofloxacin [Levaquin -] 500 mg PO DAILY #7 tablet 12/20/16 Anemia: No Cancer: No Cardiac Disorders: No CVA: Yes (Mild R hemiparesis) COPD: Yes CHF: No Dementia: No Diabetes: Yes (Borderline) GI Disorders: No Disorders: No HTN: Yes Hypercholesterolemia: Yes Liver Disease: No Suicide Attempt (Hx): No Seizures: No Thyroid Disease: No - Surgical History Abdominal Surgery: No Appendectomy: No Cardiac Surgery: No Cholecystectomy: No Lung Surgery: Yes (chest tube for pneumothorax) Neurologic Surgery: No - Immunization History Immunization Up to Date: Yes - Psycho/Social/Smoking Cessation Hx Anxiety: No Suicidal Ideation: No Smoking Status: Yes Smoking History: Former smoker Have you smoked in the past 12 months: No Number of Cigarettes Smoked Daily: 10 (stopped last year) If you are a former smoker, when did you quit?: 2015 'Breaking Loose' booklet given: 03/03/16 Hx Alcohol Use: No Drug/Substance Use Hx: No Substance Use Type: None Hx Substance Use Treatment: No Review of Systems - Review of Systems Able to Perform ROS?: No (memory loss) *Physical Exam - Physical Exam General Appearance: Yes: Nourished, Other (unkempt, odor of urine, conversive and pleasant, unable to answer questions about recent medical history and tonight's events) HEENT: positive: EOMI, Normal Voice, Hearing Grossly Normal. negative: Scleral Icterus (R), Scleral Icterus (L), Nasal Congestion Neck: positive: Trachea midline, Supple. negative: Tender, Rigid Respiratory/Chest: positive: Lungs Clear, Normal Breath Sounds, Crackles, Other (occasional wet cough). negative: Respiratory Distress, Rhonchi, Stridor, Wheezing Cardiovascular: positive: Regular Rhythm, Regular Rate Gastrointestinal/Abdominal: positive: Normal Bowel Sounds, Soft, Other (G-tube noted in LUQ, wearing abd). negative: Tender, Organomegaly, Pulsatile Mass, Guarding Male Genitalia: positive: other (small amount of blood at the penile meatus) Musculoskeletal: positive: Normal Inspection, CVA Tenderness (L). negative: Decreased Range of Motion, Vertebral Tenderness Extremity: positive: Normal Capillary Refill, Normal Inspection, Normal Range of Motion. negative: Tender, Cyanosis Integumentary: positive: Normal Color, Dry, Warm. 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 Pt coughing in ED but lungs CTA, wearing abdominal binder, G-tube in place. Blood at the meatus likely 2/2 pulling Chavarria. Chavarria is replaced and urine visibly clears from blood. DDX includes UTI, PNA, skin infection, electrolyte disturbance, medication side effect. Ordered is UA with cx, CXR, t-spine xray. CXR and t-spine x-rays negative. UA positive for leukocyte esterase and nitrites. Levaquin [address] Delcid (Pt's PCP) is called and prefers admission to Obs over management at the care facility. Pt is admitted to Dr. Delcid. *DC/Admit/Observation/Transfer Diagnosis at time of Disposition: Urinary tract infection Qualifiers: Urinary tract infection type: acute cystitis Hematuria presence: with hematuria Qualified Code(s): N30.01 - Acute cystitis with hematuria Fall Qualifiers: Encounter type: initial encounter Qualified Code(s): W19.XXXA - Unspecified fall, initial encounter - Discharge Dispostion Condition at time of disposition: Guarded Admit: Yes - Prescriptions Prescriptions: Levofloxacin [Levaquin -] 500 mg PO DAILY #7 tablet - Referrals Referrals: Gini Delcid [Primary Care Provider] - - Attestations Physician Attestion: 12/20/16 06:50 I, Dr. Radha Hernandez, attest that this document has been prepared under my direction and personally reviewed by me in its entirety. I further attest, that it accurately reflects all work, treatment, procedures and medical decision -making performed by me.
[2016-12-20] MEDS ORDERED: ACETAMINOPHEN 650 MG/20.3 ML ORAL SOLUTION (CUPS) PO ONE (04:42)
[2016-12-20 05:28] LABS: PH,URINE 7.5 (5.0-8.0); URINE APPEARANCE CLEAR; URINE BILIRUBIN NEGATIVE (NEGATIVE); URINE BLOOD 3+ (NEGATIVE); URINE COLOR LT. YELLOW; URINE GLUCOSE (UA) NEGATIVE (NEGATIVE); URINE KETONE NEGATIVE (NEGATIVE); URINE PROTEIN TRACE (NEGATIVE); URINE UROBILINOGEN 0.2 mg/dL (0.2-1.0)
[2016-12-20 05:38] LABS: URINE LEUK ESTERASE 3+ (NEGATIVE); URINE NITRITE POSITIVE (NEGATIVE)
[2016-12-20 05:41] LABS: URINE BACTERIA MODERATE /hpf (NONE SEEN); URINE HYALINE CAST 3 /lpf; URINE MUCUS RARE; URINE RBC 180 /hpf (0-3); URINE WBC 359 /hpf (3-5); YEAST RARE
[2016-12-20] MEDS ORDERED: ACETAMINOPHEN 650 MG/20.3 ML ORAL SOLUTION (CUPS) ONE (06:28)
[2016-12-20] MEDS ORDERED: LEVOFLOXACIN 500 MG TABLET (FP) PO ONE (06:35)
[2016-12-20] MEDS ORDERED: LEVOFLOXACIN 500 MG TABLET (FP) ONE (06:42)
[2016-12-20 07:17] LABS: MCH 26.6 pg (25.7-33.7); MCHC 32.1 g/dl (32.0-35.9); MEAN CELL VOLUME 82.9 fl (80-96); MEAN PLT VOLUME 7.9 fl (7.5-11.1); PLATELET COUNT 374 K/MM3 (134-434); RDW 16.5 % (11.9-15.9); WHITE BLOOD COUNT 11.3 K/mm3 (4.0-10.0)
[2016-12-20 07:44] LABS: ALBUMIN 2.4 g/dl (3.4-5.0); ANION GAP 5 (8-16); BILIRUBIN,TOTAL 0.7 mg/dL (0.2-1.0); CALCIUM 9.4 mg/dL (8.5-10.1); CO2 31 mmol/L (21-32); CREATININE 0.6 mg/dL (0.7-1.3); GLUCOSE,RANDOM 131 mg/dL (74-106); SGPT/ALT 24 U/L (12-78); TOT PROT 6.6 g/dl (6.4-8.2)
[2016-12-20 07:45] LABS: ALK PHOS 101 U/L (45-117)
[2016-12-20 07:47] LABS: SGOT/AST 28 U/L (15-37)
[2016-12-20] MEDS ORDERED: SENNOSIDES 8.6MG TABLET (FP) PO PRN ×2 (09:01→09:28)
[2016-12-20] MEDS ORDERED: METOCLOPRAMIDE HCL 5 MG/5 ML UNIT DOSE CUP GT PRN (09:01)
[2016-12-20] MEDS ORDERED: SCOPOLAMINE HYDROBROMIDE 1 PATCH PATCH.TD72 TD PRN (10:00)
[2016-12-20] MEDS: ASPIRIN 81 MG CHEWABLE TABLETS PEG SCH (10:38)
[2016-12-20] MEDS: LACTOBACILLUS ACIDOPHILUS 1 EACH TAB (FP) PEG SCH (10:40)
[2016-12-20] MEDS: ARFORMOTEROL TARTRATE 15 MCG/2 ML VIAL NEB SCH ×2 (10:40→23:41)
[2016-12-20] MEDS: HEPARIN NA (PORCINE) 5,000 UNITS/ML 1ML VIAL SQ SCH ×2 (10:40→22:42)
[2016-12-20] MEDS: METOPROLOL TARTRATE 50 MG TABLET (FP) PEG SCH ×2 (10:40→22:31)
[2016-12-20] MEDS: MAGNESIUM OXIDE 400 MG TABLET (FP) PEG SCH ×2 (10:41→22:31)
[2016-12-20] MEDS: amLODIPine BESYLATE 10 MG TABLET (FP) PEG SCH (10:41)
[2016-12-20] MEDS: POTASSIUM CHLORIDE ORAL LIQUID 20 MEQ/15 ML PEG SCH (10:41)
[2016-12-20] MEDS: FINASTERIDE 5 MG TABLET (FP) PO SCH (10:41)
[2016-12-20 12:40] LABS: PLATELET ESTIMATE ADEQUATE (NORMAL)
--- NOTE | 2016-12-20 13:10 | CON.GU ---
Consult Consult Specialty:: Referred by:: ED Reason for Consultation:: urinary retention - History of Present Illness Chief Complaint: urinary retention. History of Present Illness: 81 year old male N[facility] who was in the hospital earlier this year. He was in urinary retention and had a cystoscopy which revealed urethral stricture. He failed a few trial of voids. He was discharged to [place] with vieyra. It removed in the [facility] and is replaced. drainage is yellow. 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 Cardio/Vascular: Yes: CHF, HTN, Hyperlipdemia Pulmonary: Yes: COPD Gastrointestinal: Yes: Constipation Renal/: Yes: BPH Musculoskeletal: Yes: Hemiparesis - Alcohol/Substance Use Hx Alcohol Use: No History of Substance Use: reports: None - Smoking History Smoking history: Former smoker Have you smoked in the past 12 months: No Aproximately how many cigarettes per day: 10 (stopped last year) If you are a former smoker, when did you quit?: 2016 - Social History Usual Living Arrangement: Correction ADL: Independent Occupation: retired from [employer] History of Recent Travel: No Home Medications - Allergies Allergies/Adverse Reactions: Allergies Allergy/AdvReac Type Severity Reaction Status Date / Time No Known Allergies Allergy Verified 12/20/16 04:19 - Home Medications Home Medications: Ambulatory Orders Aspirin [ASA -] 81 mg PEG DAILY 10/16/16 Amlodipine Besylate [Norvasc -] 10 mg PEG DAILY tablet 12/08/16 Arformoterol Tartrate [Brovana -] 1 amp NEB BID amp 12/08/16 Heparin - 5,000 unit SQ BID vial 12/08/16 Insulin Sliding Scale [Novolog Vial Sliding Scale -] 1 vial SQ ACHS units 12/08 Magnesium Oxide [Mag-Ox -] 400 mg PEG BID tablet 12/08/16 Metoclopramide Oral Soln [Reglan Oral Solution -] 10 mg GT TIDAC PRN #300 ml 05/26 Metoprolol Tartrate [Lopressor -] 50 mg PEG BID tablet 12/08/16 Mirtazapine [Remeron -] 15 mg PEG HS tablet 12/08/16 Potassium Chloride [Potassium Chloride Oral Liquid] 20 meq PEG DAILY #450 ml 05/26 Sennosides [Senna -] 2 tab PEG PRN PRN MDD 2 12/09/16 Tamsulosin HCl [Flomax -] 0.4 mg PEG DAILY@0830 12/09/16 Lactobacillus Acidophilus [Bacid -] 1 each PEG BID 12/11/16 Lactobacillus Acidophilus [Bacid -] 1 tab PEG BID tab 12/15/16 Scopolamine Hydrobromide [Transderm-Scop -] 1 patch TD Q3D@1000 PRN #10 patch Levofloxacin [Levaquin -] 500 mg PO DAILY #7 tablet 12/20/16 Family Disease History - Family Disease History Family Disease History: Heart Disease: Brother (congestive heart failure), Other : Father (lived to 99), Mother (lived to her 70's) Review of Systems - Review of Systems Genitourinary: reports: Incontinence. denies: Hematuria Physical Exam- Vital Signs: Vital Signs Temperature 98.4 F 12/20/16 11:01 Pulse Rate 86 12/20/16 11:01 Respiratory Rate 16 12/20/16 11:01 Blood Pressure 135/88 12/20/16 11:01 O2 Sat by Pulse Oximetry (%) 98 12/20/16 11:01 Renal/: Yes: Vieyra Present. No: Bladder Distention, CVA Tenderness - Left, CVA Tenderness - Right, Hematuria Labs: CBC, BMP 12/20/16 07:01 12/20/16 07:01 Problem List - Problems (1) Urinary retention due to benign prostatic hyperplasia Assessment/Plan: vieyra is in place. would consider suprapubic tube as outpatient. Code(s): N40.1 - BENIGN PROSTATIC HYPERPLASIA WITH LOWER URINARY TRACT SYMP R33.8 - OTHER RETENTION OF URINE
--- NOTE | 2016-12-20 13:20 | EKG ---
Test Reason : Blood Pressure : / mmHG Vent. Rate : 083 BPM Atrial Rate : 083 BPM P-R Int : 182 ms QRS Dur : 070 ms QT Int : 396 ms P-R-T Axes : 074 047 057 degrees QTc Int : 465 ms NORMAL SINUS RHYTHM POOR R WAVE PROGRESSION INFERIOR INFARCT (CITED ON OR BEFORE 24-OCT-2016) ABNORMAL ECG WHEN COMPARED WITH ECG OF 09-DEC-2016 23:12, NO SIGNIFICANT CHANGE WAS FOUND Confirmed by LES DINH MD ([id number]) on 12/20/2016 1:20:34 PM Referred By: Confirmed By:LES DINH MD
--- NOTE | 2016-12-20 15:10 | HP ---
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: CVA, TIA Cardiovascular: Yes: CHF, HTN, Hyperlipdemia Pulmonary: Yes: COPD Gastrointestinal: Yes: Constipation, Other (SBO SB benign mass, s/p resection) Renal/: Yes: BPH Musculoskeletal: Yes: Hemiparesis - Smoking History Smoking history: Former smoker Have you smoked in the past 12 months: No Aproximately how many cigarettes per day: 10 (stopped last year) If you are a former smoker, when did you quit?: 2016 - Alcohol/Substance Use Hx Alcohol Use: No History of Substance Use: reports: None - Social History ADL: Independent Occupation: retired from [employer] History of Recent Travel: No Home Medications - Allergies Allergies/Adverse Reactions: Allergies Allergy/AdvReac Type Severity Reaction Status Date / Time No Known Allergies Allergy Verified 12/20/16 04:19 - Home Medications Home Medications: Ambulatory Orders Aspirin [ASA -] 81 mg PEG DAILY 10/16/16 Arformoterol Tartrate [Brovana -] 1 amp NEB BID amp 12/08/16 Heparin - 5,000 unit SQ BID vial 12/08/16 Insulin Sliding Scale [Novolog Vial Sliding Scale -] 1 vial SQ ACHS units 12/08 Magnesium Oxide [Mag-Ox -] 400 mg PEG BID tablet 12/08/16 Metoclopramide Oral Soln [Reglan Oral Solution -] 10 mg GT TIDAC PRN #300 ml 05/26 Metoprolol Tartrate [Lopressor -] 50 mg PEG BID tablet 12/08/16 Mirtazapine [Remeron -] 15 mg PEG HS tablet 12/08/16 Potassium Chloride [Potassium Chloride Oral Liquid] 20 meq PEG DAILY #450 ml 05/26 Sennosides [Senna -] 2 tab PEG PRN PRN MDD 2 12/09/16 Tamsulosin HCl [Flomax -] 0.4 mg PEG DAILY@0830 12/09/16 Lactobacillus Acidophilus [Bacid -] 1 tab PEG BID tab 12/15/16 Scopolamine Hydrobromide [Transderm-Scop -] 1 patch TD Q3D@1000 PRN #10 patch Family Disease History - Family Disease History Family Disease History: Heart Disease: Brother (congestive heart failure), Other : Father (lived to 99), Mother (lived to her 70's) Review of Systems - Review of Systems Constitutional: denies: Chills, Fever Eyes: denies: Blurred Vision, Double Vision HENT: denies: Difficult Swallowing, Ear Discharge, Nasal Congestion Neck: denies: Pain on Movement, Stiffness Respiratory: denies: Hemoptysis, SOB, Wheezing Gastrointestinal: denies: Abdominal Pain, Bloating, Constipation, Diarrhea Genitourinary: reports: Other (pt has a Chavarria). denies: Burning, Discharge, Dysuria Musculoskeletal: denies: Back Pain, Muscle Pain Integumentary: denies: Blister, Bruising, Rash Neurological: denies: Change in LOC, Numbness, Tremors Endocrine: denies: Excessive Sweating, Intolerance to Cold Hematology/Lymphatic: denies: Excessive Bleeding, Swollen Glands Psychiatric: denies: Anxiety, Depression Physical Examination Vital Signs: Vital Signs Temperature 98.4 F 12/20/16 13:18 Pulse Rate 65 12/20/16 13:18 Respiratory Rate 16 12/20/16 13:18 Blood Pressure 117/85 12/20/16 13:18 O2 Sat by Pulse Oximetry (%) 99 12/20/16 13:18 Constitutional: Yes: No Distress, Calm Eyes: Yes: Conjunctiva Clear, EOM Intact, PERRL HENT: Yes: Normocephalic. No: Epistaxis, Rhinnorhea, Thrush Neck: Yes: Trachea Midline. No: Lymphadenopathy Cardiovascular: Yes: Regular Rate and Rhythm, S1, S2 Respiratory: Yes: Regular, CTA Bilaterally. No: Rales Gastrointestinal: Yes: Normal Bowel Sounds, Soft. No: Tenderness ...Rectal Exam: Yes: Deferred Renal/: No: CVA Tenderness - Left, CVA Tenderness - Right Musculoskeletal: Yes: Back Pain. No: Joint Swelling Edema: No Neurological: Yes: Alert, Oriented Labs: CBC, BMP 12/20/16 07:01 12/20/16 07:01 Imaging - Results Chest X-ray: Report Reviewed X-ray: Report Reviewed Problem List - Problems (1) Fall Code(s): W19.XXXA - UNSPECIFIED FALL, INITIAL ENCOUNTER Qualifiers: Encounter type: initial encounter Qualified Code(s): W19.XXXA - Unspecified fall, initial encounter (2) Urinary tract infection Code(s): N39.0 - URINARY TRACT INFECTION, SITE NOT SPECIFIED Qualifiers: Urinary tract infection type: acute cystitis Hematuria presence: with hematuria Qualified Code(s): N30.01 - Acute cystitis with hematuria (3) S/P percutaneous endoscopic gastrostomy (PEG) tube placement Code(s): Z93.1 - GASTROSTOMY STATUS (4) Urinary retention due to benign prostatic hyperplasia Code(s): N40.1 - BENIGN PROSTATIC HYPERPLASIA WITH LOWER URINARY TRACT SYMP R33.8 - OTHER RETENTION OF URINE Assessment/Plan IV ABTX monitor UCX, BCX AM labs Cont TF PT eval
[2016-12-20 19:21] VITALS: BMI 18.8
[2016-12-20] MEDS ORDERED: MIRTAZAPINE 15 MG TABLET (FP) PEG SCH (22:00)
[2016-12-21 06:29] LABS: BASOPHIL 0.8 % (0-2.0); EOSINOPHIL 2.7 % (0-4.5); MCH 27.3 pg (25.7-33.7); MCHC 32.5 g/dl (32.0-35.9); MEAN CELL VOLUME 84.1 fl (80-96); MEAN PLT VOLUME 8.2 fl (7.5-11.1); NEUTROPHILS 71.7 % (42.8-82.8); PLATELET COUNT 410 K/MM3 (134-434); RDW 16.4 % (11.9-15.9); WHITE BLOOD COUNT 9.5 K/mm3 (4.0-10.0)
[2016-12-21 06:55] LABS: ALBUMIN 2.4 g/dl (3.4-5.0); ALK PHOS 112 U/L (45-117); ANION GAP 6 (8-16); BILIRUBIN,TOTAL 0.9 mg/dL (0.2-1.0); CALCIUM 9.8 mg/dL (8.5-10.1); CO2 35 mmol/L (21-32); CREATININE 0.7 mg/dL (0.7-1.3); GLUCOSE,RANDOM 139 mg/dL (74-106); SGOT/AST 21 U/L (15-37); SGPT/ALT 24 U/L (12-78)
[2016-12-21] MEDS ORDERED: TAMSULOSIN HCL 0.4 MG CAP.ER.24H (FP) PO SCH (08:30)
[2016-12-21] MEDS ORDERED: LEVOFLOXACIN 250 MG IVPB 50 ML IVPB SCH (10:00)
[2016-12-21] MEDS ORDERED: LEVOFLOXACIN 500 MG IVPB 100 ML IVPB SCH (10:00)
[2016-12-21] MEDS ORDERED: HEPARIN NA (PORCINE) 5,000 UNITS/ML 1ML VIAL ONE (12:25)
[2016-12-21] MEDS ORDERED: LEVOFLOXACIN 500 MG IVPB 100 ML IVPB ONE (12:25)
[2016-12-21] MEDS: HEPARIN NA (PORCINE) 5,000 UNITS/ML 1ML VIAL SQ SCH ×2 (12:34→22:49)
[2016-12-21] MEDS: METOPROLOL TARTRATE 50 MG TABLET (FP) PEG SCH ×2 (12:48→22:49)
[2016-12-21] MEDS: ARFORMOTEROL TARTRATE 15 MCG/2 ML VIAL NEB SCH ×2 (12:48→22:30)
[2016-12-21] MEDS: ASPIRIN 81 MG CHEWABLE TABLETS PEG SCH (12:49)
[2016-12-21] MEDS: MAGNESIUM OXIDE 400 MG TABLET (FP) PEG SCH ×2 (12:49→22:49)
[2016-12-21] MEDS: LACTOBACILLUS ACIDOPHILUS 1 EACH TAB (FP) PEG SCH (12:49)
[2016-12-21] MEDS: amLODIPine BESYLATE 10 MG TABLET (FP) PEG SCH (12:50)
[2016-12-21] MEDS: POTASSIUM CHLORIDE ORAL LIQUID 20 MEQ/15 ML PEG SCH (12:50)
[2016-12-21] MEDS: FINASTERIDE 5 MG TABLET (FP) PO SCH (12:51)
--- NOTE | 2016-12-21 14:26 | PN ---
Progress Note, Physician History of Present Illness: Pt w/o fever, SOB, CP, palpitations, abd pain, N, V. - Current Medication List Current Medications: Active Medications Amlodipine Besylate (Norvasc -) 10 mg PEG DAILY [facility] Last Admin: 12/21/16 12:50 Dose: 10 mg Arformoterol Tartrate (Brovana (Restricted To Pulmonology/Resp) -) 1 amp NEB BID [facility] Last Admin: 12/21/16 12:48 Dose: 1 amp Aspirin (Asa -) 81 mg PEG DAILY [facility] Last Admin: 12/21/16 12:49 Dose: 81 mg Finasteride (Proscar -) 5 mg PO DAILY [facility] Last Admin: 12/21/16 12:51 Dose: 5 mg Heparin Sodium (Porcine) (Heparin -) 5,000 unit SQ BID [facility] Last Admin: 12/21/16 12:34 Dose: 5,000 unit Levofloxacin (Levaquin 500 Mg Premixed Ivpb -) 100 mls @ 100 mls/hr IVPB DAILY [facility] Last Admin: 12/21/16 12:34 Dose: 100 mls/hr Lactobacillus Acidophilus (Bacid -) 1 tab PEG DAILY [facility] Last Admin: 12/21/16 12:49 Dose: 1 tab Magnesium Oxide (Mag-Ox -) 400 mg PEG BID [facility] Last Admin: 12/21/16 12:49 Dose: 400 mg Metoclopramide HCl (Reglan Oral Solution -) 10 mg GT TIDAC PRN PRN Reason: NAUSEA AND/OR VOMITING Metoprolol Tartrate (Lopressor -) 50 mg PEG BID [facility] Last Admin: 12/21/16 12:48 Dose: 50 mg Mirtazapine (Remeron -) 15 mg PEG HS [facility] Last Admin: 12/20/16 22:31 Dose: 15 mg Potassium Chloride (Potassium Chloride Oral Liquid) 20 meq PEG DAILY [facility] Last Admin: 12/21/16 12:50 Dose: 20 meq Senna (Senna -) 2 tab PO DAILY PRN PRN Reason: CONSTIPATION - Objective Vital Signs: Vital Signs Temperature 97.5 F L 12/20/16 23:30 Pulse Rate 89 12/21/16 07:02 Respiratory Rate 22 12/21/16 07:02 Blood Pressure 150/84 12/21/16 07:02 O2 Sat by Pulse Oximetry (%) 100 12/21/16 07:02 Constitutional: Yes: No Distress Cardiovascular: Yes: Regular Rate and Rhythm, S1, S2 Respiratory: Yes: Regular, CTA Bilaterally Gastrointestinal: Yes: Normal Bowel Sounds, Soft, Other (+ PEG). No: Tenderness Edema: No Neurological: Yes: Alert, Oriented Labs: CBC, BMP 12/21/16 06:10 12/21/16 06:10 Problem List - Problems (1) Fall Code(s): W19.XXXA - UNSPECIFIED FALL, INITIAL ENCOUNTER Qualifiers: Encounter type: initial encounter Qualified Code(s): W19.XXXA - Unspecified fall, initial encounter (2) Urinary tract infection Code(s): N39.0 - URINARY TRACT INFECTION, SITE NOT SPECIFIED Qualifiers: Urinary tract infection type: acute cystitis Hematuria presence: with hematuria Qualified Code(s): N30.01 - Acute cystitis with hematuria (3) S/P percutaneous endoscopic gastrostomy (PEG) tube placement Code(s): Z93.1 - GASTROSTOMY STATUS (4) Urinary retention due to benign prostatic hyperplasia Code(s): N40.1 - BENIGN PROSTATIC HYPERPLASIA WITH LOWER URINARY TRACT SYMP R33.8 - OTHER RETENTION OF URINE (5) SBO (small bowel obstruction) Code(s): K56.69 - OTHER INTESTINAL OBSTRUCTION (6) Small bowel mass Code(s): K63.89 - OTHER SPECIFIED DISEASES OF INTESTINE (7) Silent aspiration Code(s): T17.900A - UNSP FB IN RESP TRACT, PART UNSP CAUSING ASPHYX, INIT (8) Hypernatremia Code(s): E87.0 - HYPEROSMOLALITY AND HYPERNATREMIA (9) Pneumonia Code(s): J18.9 - PNEUMONIA, UNSPECIFIED ORGANISM Qualifiers: Pneumonia type: aspiration pneumonia Aspiration pneumonia type: unspecified Laterality: bilateral Lung location: unspecified part of lung Qualified Code(s): J69.0 - Pneumonitis due to inhalation of food and vomit (10) Bacteremia Code(s): R78.81 - BACTEREMIA Assessment/Plan IV ABTX- for now monitor UCX AM labs Cont TF PT eval Case was d/w pt's nurse; pt is pulling on the tubes, interfere with treatment. 1 out of 4 bottles +; ID consult. AM labs
--- NOTE | 2016-12-21 14:33 | PN ---
Progress Note (short form) - Note Progress Note: ID consult dictated imp/reccd readmitted after fall in [place], also pulled out his vieyra catheter 12/20 now one of four blood cultures with gpc in chains vieyra replaced in ED bacteremia- gram positive repeat blood cultures today vancomycin one dose f/u cultures asymptomatic bacteriuria due to chronic vieyra catheter- no need to treat can d/c levaquin Problem List - Problems (1) Bacteremia Code(s): R78.81 - BACTEREMIA (2) Asymptomatic bacteriuria Code(s): R82.71 - BACTERIURIA
[2016-12-21] MEDS ORDERED: VANCOMYCIN 1 GRAM (PRE-DOCKED) 1,000 MG/250 ML BAG IVPB ONE (14:35)
[2016-12-21] MEDS ORDERED: VANCOMYCIN 1 GRAM (PRE-DOCKED) 250 ML IVPB ONE (16:09)
--- NOTE | 2016-12-21 17:34 | CONS ---
DATE OF CONSULTATION: DATE OF DICTATION: 12/21/2016 INFECTIOUS DISEASE CONSULTATION REQUESTING PHYSICIAN: Gini Delcid M.D. REQUESTING PHYSICIAN: Norman Callaway M.D. HISTORY OF PRESENT ILLNESS: This is an elderly gentleman with multiple recent admissions to [facility]. Most recently he was just discharged on the after he was admitted with vomiting. He was admitted after vomiting at the detention. He had been discharged on the , he was readmitted on the after he developed vomiting in the detention and was noted to have an elevated white count . He was given empiric antibiotics which were stopped after his cultures were negative. He has a history of recent small bowel resection with angina and anastomosis. He had an area mass that was resected and was benign . He had poor oral nutrition, so he required a PEG tube placement. This was all on the prior admission from October 17 to December 08. As well he developed an episode of aspiration pneumonia, as well as a transient klebsiella bacteremia. He had several attempts of Chavarria catheter being removed and was discharged to the detention with the Chavarria. He is now readmitted. He was sent to the emergency room on the after he pulled his Chavarria out and fell. He was complaining of pain in his right ribcage. X-rays were negative. The Chavarria was reinserted, and he was admitted for further evaluation. He was seen by urology, who thought he had urinary retention and required continued Chavarria placement. The x-rays were negative. One of 4 bottles from admission: blood culture is positive for gram-positive cocci in chains, and I am asked to see him for this reason. Patient is awake and alert. He is pleasantly confused. He states he fell after he was unloading supplies from a truck. PAST MEDICAL HISTORY: Notable for CVA, congestive heart failure, hypertension, hyperlipidemia, COPD, constipation, small bowel obstruction. He had a small bowel mass that was benign status post small bowel resection and end-to-end anastomosis. He has a history of aspiration pneumonia and klebsiella bacteremia. BPH with urinary retention requiring Chavarria catheter placement, and he also suffers from dementia. SOCIAL HISTORY: Notable for smoking. He stopped in 2015. No history of any substance use. Prior to this admission, for the original small bowel obstruction several months ago, he was living at home with his family, retired from [employer]. ALLERGIES: He has no known drug allergies. MEDICATION: His medications at the detention include tamsulosin, senna, scopolamine patch, mirtazapine, metoprolol, Reglan, magnesium oxide, Bacid, insulin, heparin, aspirin, and Brovana. REVIEW OF SYSTEMS: His Chavarria has been replaced. He has no complaints. PHYSICAL EXAMINATION: Vital signs: Temperature 97.5, pulse 89, blood pressure 150/84, respiratory rate 22. He is saturating 100% on 3 L. HEENT: Normocephalic. Eyes are anicteric. Neck: Supple. Lungs: Clear to auscultation. Heart: Regular rate and rhythm. Abdomen: Soft. There is no distention. G-tube site is clean. He has abdominal binder in place. He has a Chavarria intact with clear urine. Extremities: Without edema. LABORATORY: White count is 9.5, hemoglobin 12.7, platelets 410, BUN and creatinine are 13 and 0.7. LFTs are normal. Urine and blood culture have been sent from admission. Blood culture is 104, gram positive cocci in chains. Urine culture is growing non-lactose fermenters. He has received Levaquin and levofloxacin in the emergency room. IMPRESSION: In summary, this is an elderly man with multiple recent admissions, just readmitted to the hospital with bacteremia after he pulled his Chavarria out. Interestingly, the blood cultures do not match the urine isolate. I would repeat blood cultures and give him vancomycin for Streptococcus coverage while we await the results of repeat cultures. 2. Positive urine culture with the chronic Chavarria catheter. I suspect he has asymptomatic bacteruria, as he has no fever to suggest infection, and I would stop his Levaquin at this time. Further recommendations to follow, based on his clinical course. NORMAN CALLAWAY M.D. [id number]
[2016-12-21] MEDS ORDERED: ZOLPIDEM TARTRATE 5 MG TABLET PO ONE (22:00)
[2016-12-22 07:48] LABS: MCH 27.1 pg (25.7-33.7); MCHC 32.6 g/dl (32.0-35.9); MEAN CELL VOLUME 83.3 fl (80-96); PLATELET COUNT 373 K/MM3 (134-434); RDW 16.3 % (11.9-15.9); WHITE BLOOD COUNT 10.8 K/mm3 (4.0-10.0)
[2016-12-22 08:20] LABS: ANION GAP 5 (8-16); CALCIUM 9.9 mg/dL (8.5-10.1); CO2 33 mmol/L (21-32); CREATININE 0.7 mg/dL (0.7-1.3); GLUCOSE,RANDOM 115 mg/dL (74-106)
[2016-12-22 09:29] LABS: C-REACTIVE PROTEIN 9.7 MG/DL (0.00-0.3)
[2016-12-22] MEDS ORDERED: VANCOMYCIN 1 GRAM (PRE-DOCKED) 1,000 MG/250 ML BAG IVPB SCH (10:00)
--- NOTE | 2016-12-22 10:11 | PN ---
Progress Note, Physician History of Present Illness: Pt w/o fever, SOB, CP, palpitations, abd pain, N, V. - Current Medication List Current Medications: Active Medications Amlodipine Besylate (Norvasc -) 10 mg PEG DAILY [facility] Last Admin: 12/21/16 12:50 Dose: 10 mg Arformoterol Tartrate (Brovana (Restricted To Pulmonology/Resp) -) 1 amp NEB BID [facility] Last Admin: 12/21/16 22:30 Dose: 1 amp Aspirin (Asa -) 81 mg PEG DAILY [facility] Last Admin: 12/21/16 12:49 Dose: 81 mg Finasteride (Proscar -) 5 mg PO DAILY [facility] Last Admin: 12/21/16 12:51 Dose: 5 mg Heparin Sodium (Porcine) (Heparin -) 5,000 unit SQ BID [facility] Last Admin: 12/21/16 22:49 Dose: 5,000 unit Lactobacillus Acidophilus (Bacid -) 1 tab PEG DAILY [facility] Last Admin: 12/21/16 12:49 Dose: 1 tab Magnesium Oxide (Mag-Ox -) 400 mg PEG BID [facility] Last Admin: 12/21/16 22:49 Dose: 400 mg Metoclopramide HCl (Reglan Oral Solution -) 10 mg GT TIDAC PRN PRN Reason: NAUSEA AND/OR VOMITING Metoprolol Tartrate (Lopressor -) 50 mg PEG BID [facility] Last Admin: 12/21/16 22:49 Dose: 50 mg Potassium Chloride (Potassium Chloride Oral Liquid) 20 meq PEG DAILY [facility] Last Admin: 12/21/16 12:50 Dose: 20 meq Senna (Senna -) 2 tab PO DAILY PRN PRN Reason: CONSTIPATION Vancomycin HCl (Vancomycin (Pre-Docked)) 1,000 mg IVPB DAILY [facility] PRN Reason: Protocol - Objective Vital Signs: Vital Signs Temperature 98 F 12/22/16 06:00 Pulse Rate 81 12/22/16 06:00 Respiratory Rate 20 12/22/16 06:00 Blood Pressure 133/74 12/22/16 06:00 O2 Sat by Pulse Oximetry (%) 96 12/22/16 01:00 Constitutional: Yes: No Distress, Calm Cardiovascular: Yes: Regular Rate and Rhythm, S1, S2 Respiratory: Yes: Regular, CTA Bilaterally, Other (coarse BS) Gastrointestinal: Yes: Normal Bowel Sounds, Soft Edema: No Neurological: Yes: Alert, Oriented (at baseline.) Labs: CBC, BMP 12/22/16 06:00 12/22/16 06:00 Problem List - Problems (1) Fall Code(s): W19.XXXA - UNSPECIFIED FALL, INITIAL ENCOUNTER Qualifiers: Encounter type: initial encounter Qualified Code(s): W19.XXXA - Unspecified fall, initial encounter (2) Urinary tract infection Code(s): N39.0 - URINARY TRACT INFECTION, SITE NOT SPECIFIED Qualifiers: Urinary tract infection type: acute cystitis Hematuria presence: with hematuria Qualified Code(s): N30.01 - Acute cystitis with hematuria (3) S/P percutaneous endoscopic gastrostomy (PEG) tube placement Code(s): Z93.1 - GASTROSTOMY STATUS (4) Urinary retention due to benign prostatic hyperplasia Code(s): N40.1 - BENIGN PROSTATIC HYPERPLASIA WITH LOWER URINARY TRACT SYMP R33.8 - OTHER RETENTION OF URINE (5) SBO (small bowel obstruction) Code(s): K56.69 - OTHER INTESTINAL OBSTRUCTION (6) Small bowel mass Code(s): K63.89 - OTHER SPECIFIED DISEASES OF INTESTINE (7) Silent aspiration Code(s): T17.900A - UNSP FB IN RESP TRACT, PART UNSP CAUSING ASPHYX, INIT (8) Hypernatremia Code(s): E87.0 - HYPEROSMOLALITY AND HYPERNATREMIA (9) Pneumonia Code(s): J18.9 - PNEUMONIA, UNSPECIFIED ORGANISM Qualifiers: Pneumonia type: aspiration pneumonia Aspiration pneumonia type: unspecified Laterality: bilateral Lung location: unspecified part of lung Qualified Code(s): J69.0 - Pneumonitis due to inhalation of food and vomit (10) Bacteremia Code(s): R78.81 - BACTEREMIA Assessment/Plan IV ABTX- per ID ID consult apreciated monitor UCX, BCX Cont TF PT eval Case was d/w pt's nurse; pt is pulling on the tubes, interfere with treatment. Pt's at bedside, considers pt sleepy (per her request new medication- Ambien 5 mg- was given last night, as pt didn't sleep with prior medication in ER); per his nurse, pt woke up for couple of hours after 5 AM and was interactive, then fell a sleep again later. I d/w pt's nurse to monitor pt and call me if pt is not himself. AM labs
[2016-12-22] MEDS ORDERED: PT OWN MED DRAWER 7, Y5N ONE (10:18)
[2016-12-22] MEDS: POTASSIUM CHLORIDE ORAL LIQUID 20 MEQ/15 ML PEG SCH (10:34)
[2016-12-22] MEDS: ASPIRIN 81 MG CHEWABLE TABLETS PEG SCH (10:38)
[2016-12-22] MEDS: amLODIPine BESYLATE 10 MG TABLET (FP) PEG SCH (10:38)
[2016-12-22] MEDS: LACTOBACILLUS ACIDOPHILUS 1 EACH TAB (FP) PEG SCH (10:38)
[2016-12-22] MEDS: METOPROLOL TARTRATE 50 MG TABLET (FP) PEG SCH ×2 (10:38→21:57)
[2016-12-22] MEDS: MAGNESIUM OXIDE 400 MG TABLET (FP) PEG SCH ×2 (10:38→21:57)
[2016-12-22] MEDS: HEPARIN NA (PORCINE) 5,000 UNITS/ML 1ML VIAL SQ SCH ×2 (10:39→21:55)
[2016-12-22] MEDS: FINASTERIDE 5 MG TABLET (FP) PO SCH (10:39)
--- NOTE | 2016-12-22 15:34 | PN ---
Progress Note (short form) - Note Progress Note: resting comfortably no complaints amairani vest no fevers chronic vieyra Vital Signs Period Temp Pulse Resp BP Sys/Hernandez Pulse Ox Last 24 Hr 97.7 F-98.8 F 74-88 18-20 125-142/71-81 95-97 cor-rrr lungs clear abd soft,nt ext no edema +vieyra CBC, BMP 12/22/16 06:00 12/22/16 06:00 Microbiology 12/20/16 07:01 Blood - Peripheral Venous Blood Culture - Final Enterococcus Faecalis 12/21/16 12:53 Blood - Peripheral Venous Blood Culture - Preliminary NO GROWTH OBTAINED AFTER 24 HOURS, INCUBATION TO CONTINUE FOR 4 DAYS. 12/21/16 12:53 Blood - Peripheral Venous Blood Culture - Preliminary NO GROWTH OBTAINED AFTER 24 HOURS, INCUBATION TO CONTINUE FOR 4 DAYS. 12/20/16 04:54 Urine - Urine - Catheterized Urine Culture - Final Escherichia Coli Esbl Hem Marker 12/20/16 07:01 Blood - Peripheral Venous Blood Culture - Preliminary NO GROWTH OBTAINED AFTER 48 HOURS, INCUBATION TO CONTINUE FOR 3 DAYS. a/p enterococcal bacteremia- ?gi source ct scan abd/pelvis echo amp/gent asymptomatic bacteriuria due to chronic vieyra catheter- no need to treat Problem List - Problems (1) Bacteremia Code(s): R78.81 - BACTEREMIA (2) Asymptomatic bacteriuria Code(s): R82.71 - BACTERIURIA
[2016-12-22] MEDS: AMPICILLIN - 2 GM in SODIUM CHLORIDE 100 ML IVPB SCH ×2 (19:30→21:25)
[2016-12-22] MEDS: SODIUM CHLORIDE IVPB SCH (20:05)
[2016-12-22] MEDS: GENTAMICIN IVPB SCH (20:05)
[2016-12-22] MEDS: SCOPOLAMINE HYDROBROMIDE 1 PATCH PATCH.TD72 TD SCH (20:12)
[2016-12-22] MEDS: ARFORMOTEROL TARTRATE 15 MCG/2 ML VIAL NEB SCH (21:45)
[2016-12-22] MEDS: RAMELTEON 8 MG TABLET PO SCH (22:12)
[2016-12-23] MEDS: AMPICILLIN - 2 GM in SODIUM CHLORIDE 100 ML IVPB SCH ×6 (01:20→21:49)
[2016-12-23] MEDS: GENTAMICIN IVPB SCH ×2 (06:43→20:04)
[2016-12-23] MEDS: SODIUM CHLORIDE IVPB SCH ×2 (06:43→20:04)
[2016-12-23 07:24] LABS: MCH 27.1 pg (25.7-33.7); MCHC 32.3 g/dl (32.0-35.9); MEAN PLT VOLUME 7.8 fl (7.5-11.1); PLATELET COUNT 333 K/MM3 (134-434); RDW 16.3 % (11.9-15.9); WHITE BLOOD COUNT 7.4 K/mm3 (4.0-10.0)
[2016-12-23 08:03] LABS: ANION GAP 6 (8-16); CALCIUM 9.6 mg/dL (8.5-10.1); CO2 35 mmol/L (21-32); CREATININE 0.5 mg/dL (0.7-1.3); GLUCOSE,RANDOM 120 mg/dL (74-106)
[2016-12-23] MEDS: LACTOBACILLUS ACIDOPHILUS 1 EACH TAB (FP) PEG SCH (10:00)
[2016-12-23] MEDS: POTASSIUM CHLORIDE ORAL LIQUID 20 MEQ/15 ML PEG SCH (10:00)
[2016-12-23] MEDS: HEPARIN NA (PORCINE) 5,000 UNITS/ML 1ML VIAL SQ SCH ×2 (10:00→21:50)
[2016-12-23] MEDS: METOPROLOL TARTRATE 50 MG TABLET (FP) PEG SCH ×2 (10:01→21:50)
[2016-12-23] MEDS: amLODIPine BESYLATE 10 MG TABLET (FP) PEG SCH (10:01)
[2016-12-23] MEDS: MAGNESIUM OXIDE 400 MG TABLET (FP) PEG SCH ×2 (10:01→21:50)
[2016-12-23] MEDS: ASPIRIN 81 MG CHEWABLE TABLETS PEG SCH (10:02)
[2016-12-23] MEDS: ARFORMOTEROL TARTRATE 15 MCG/2 ML VIAL NEB SCH ×3 (10:02→22:24)
[2016-12-23] MEDS: FINASTERIDE 5 MG TABLET (FP) PO SCH (10:03)
--- NOTE | 2016-12-23 12:47 | PN ---
Progress Note (short form) - Note Progress Note: resting comfortably no complaints amairani vest no fevers chronic vieyra daughter at bedside Vital Signs Period Temp Pulse Resp BP Sys/Hernandez Pulse Ox Last 24 Hr 97.7 F-98.5 F 68-77 18-20 125-162/54-79 97 cor-rrr lungs clear abd soft,nt+GT ext no edema +vieyra CBC, BMP 12/23/16 06:00 12/23/16 06:00 Microbiology 12/20/16 07:01 Blood - Peripheral Venous Blood Culture - Preliminary NO GROWTH OBTAINED AFTER 72 HOURS, INCUBATION TO CONTINUE FOR 2 DAYS. 12/20/16 07:01 Blood - Peripheral Venous Blood Culture - Final Enterococcus Faecalis 12/21/16 12:53 Blood - Peripheral Venous Blood Culture - Preliminary NO GROWTH OBTAINED AFTER 24 HOURS, INCUBATION TO CONTINUE FOR 4 DAYS. 12/21/16 12:53 Blood - Peripheral Venous Blood Culture - Preliminary NO GROWTH OBTAINED AFTER 24 HOURS, INCUBATION TO CONTINUE FOR 4 DAYS. 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
--- NOTE | 2016-12-23 13:14 | PN ---
Progress Note, Physician Chief Complaint: in bed NAD no new c/o; stable; calm currently but has occasional agitation, needs vest and restraints for safety insomnia; will ask for psychiatry eval +blood cx - Current Medication List Current Medications: Active Medications Amlodipine Besylate (Norvasc -) 10 mg PEG DAILY [facility] Last Admin: 12/23/16 10:01 Dose: 10 mg Arformoterol Tartrate (Brovana (Restricted To Pulmonology/Resp) -) 1 amp NEB BID [facility] Last Admin: 12/23/16 10:22 Dose: 1 amp Aspirin (Asa -) 81 mg PEG DAILY [facility] Last Admin: 12/23/16 10:02 Dose: 81 mg Finasteride (Proscar -) 5 mg PO DAILY [facility] Last Admin: 12/23/16 10:03 Dose: 5 mg Heparin Sodium (Porcine) (Heparin -) 5,000 unit SQ BID [facility] Last Admin: 12/23/16 10:00 Dose: 5,000 unit Ampicillin Sodium 2 gm/ Sodium (Chloride) 100 mls @ 200 mls/hr IVPB Q4H [facility] Last Admin: 12/23/16 09:59 Dose: 200 mls/hr Gentamicin Sulfate 50 mg/ (Sodium Chloride) 101.25 mls @ 101.25 mls/hr IVPB Q12H [facility] Last Admin: 12/23/16 06:43 Dose: 101.25 mls/hr Lactobacillus Acidophilus (Bacid -) 1 tab PEG DAILY [facility] Last Admin: 12/23/16 10:00 Dose: 1 tab Magnesium Oxide (Mag-Ox -) 400 mg PEG BID [facility] Last Admin: 12/23/16 10:01 Dose: 400 mg Metoclopramide HCl (Reglan Oral Solution -) 10 mg GT TIDAC PRN PRN Reason: NAUSEA AND/OR VOMITING Metoprolol Tartrate (Lopressor -) 50 mg PEG BID [facility] Last Admin: 12/23/16 10:01 Dose: 50 mg Potassium Chloride (Potassium Chloride Oral Liquid) 20 meq PEG DAILY [facility] Last Admin: 12/23/16 10:00 Dose: 20 meq Ramelteon (Rozerem) 8 mg PO HS [facility] Last Admin: 12/22/16 22:12 Dose: 8 mg Scopolamine HBr (Transderm-Scop -) 1 patch TD Q3D@1900 [facility] Last Admin: 12/22/16 20:12 Dose: 1 patch Senna (Senna -) 2 tab PO DAILY PRN PRN Reason: CONSTIPATION - Objective Vital Signs: Vital Signs Temperature 98.5 F 12/23/16 10:00 Pulse Rate 69 12/23/16 10:00 Respiratory Rate 18 12/23/16 10:00 Blood Pressure 152/79 12/23/16 10:00 O2 Sat by Pulse Oximetry (%) 97 12/22/16 20:18 Constitutional: Yes: No Distress, Calm Eyes: Yes: Conjunctiva Clear HENT: Yes: Atraumatic Neck: Yes: Supple Cardiovascular: Yes: Regular Rate and Rhythm Respiratory: Yes: CTA Bilaterally Gastrointestinal: Yes: Soft, Other (peg). No: Distention, Tenderness Genitourinary: Yes: Chavarria Present. No: CVA Tenderness - Left, CVA Tenderness - Right, Hematuria Musculoskeletal: No: Back Pain, Joint Stiffness Extremities: No: Calf Tenderness, Cold, Cool, Cyanosis Edema: No Integumentary: No: Rash, Venous Stasis Changes Neurological: Yes: Alert. No: Oriented ...Motor Strength: WNL Psychiatric: Yes: Alert. No: Oriented, Agitated Labs: CBC, BMP 12/23/16 06:00 12/23/16 06:00 - ....Imaging Other: Report Reviewed Assessment/Plan ASHD CHF COPD CRF HTN, Ao Aneurysm, dementia, insomnia, agitation dysphagia, aspiration, PEG failure to thrive, weight loss, weakness, falls + blood cx enteroccocus check echo, abdomen CT IV ATB per ID psychiatry eval falls decubs aspiration pfx prgnosis guarded d/w pt and staff, d/w
[2016-12-23] MEDS: RAMELTEON 8 MG TABLET PO SCH (21:50)
[2016-12-24] MEDS: AMPICILLIN - 2 GM in SODIUM CHLORIDE 100 ML IVPB SCH ×6 (02:10→21:33)
[2016-12-24] MEDS: GENTAMICIN IVPB SCH ×2 (08:17→17:39)
[2016-12-24] MEDS: SODIUM CHLORIDE IVPB SCH ×2 (08:17→17:39)
[2016-12-24] MEDS ORDERED: PT OWN MED DRAWER 7, Y5N ONE ×3 (09:46→17:34)
[2016-12-24] MEDS: MAGNESIUM OXIDE 400 MG TABLET (FP) PEG SCH ×2 (09:51→23:20)
[2016-12-24] MEDS: POTASSIUM CHLORIDE ORAL LIQUID 20 MEQ/15 ML PEG SCH (09:51)
[2016-12-24] MEDS: FINASTERIDE 5 MG TABLET (FP) PO SCH (09:51)
[2016-12-24] MEDS: METOPROLOL TARTRATE 50 MG TABLET (FP) PEG SCH ×2 (09:51→23:20)
[2016-12-24] MEDS: LACTOBACILLUS ACIDOPHILUS 1 EACH TAB (FP) PEG SCH (09:52)
[2016-12-24] MEDS: HEPARIN NA (PORCINE) 5,000 UNITS/ML 1ML VIAL SQ SCH ×2 (09:52→23:20)
[2016-12-24] MEDS: ASPIRIN 81 MG CHEWABLE TABLETS PEG SCH (09:52)
[2016-12-24] MEDS: amLODIPine BESYLATE 10 MG TABLET (FP) PEG SCH (09:52)
--- NOTE | 2016-12-24 10:28 | PN ---
Progress Note, Physician History of Present Illness: Pt w/o fever, SOB, CP, palpitations, abd pain, N, V. - Current Medication List Current Medications: Active Medications Amlodipine Besylate (Norvasc -) 10 mg PEG [facility]ILY [facility] Last Admin: 12/24/16 09:52 Dose: 10 mg Arformoterol Tartrate (Brovana (Restricted To Pulmonology/Resp) -) 1 amp NEB BID [facility] Last Admin: 12/23/16 22:24 Dose: 1 amp Aspirin (Asa -) 81 mg PEG DAILY [facility] Last Admin: 12/24/16 09:52 Dose: 81 mg Finasteride (Proscar -) 5 mg PO DAILY [facility] Last Admin: 12/24/16 09:51 Dose: 5 mg Heparin Sodium (Porcine) (Heparin -) 5,000 unit SQ BID [facility] Last Admin: 12/24/16 09:52 Dose: 5,000 unit Ampicillin Sodium 2 gm/ Sodium (Chloride) 100 mls @ 200 mls/hr IVPB Q4H [facility] Last Admin: 12/24/16 09:49 Dose: 200 mls/hr Gentamicin Sulfate 50 mg/ (Sodium Chloride) 101.25 mls @ 101.25 mls/hr IVPB Q12H [facility] Last Admin: 12/24/16 08:17 Dose: 101.25 mls/hr Lactobacillus Acidophilus (Bacid -) 1 tab PEG DAILY [facility] Last Admin: 12/24/16 09:52 Dose: 1 tab Magnesium Oxide (Mag-Ox -) 400 mg PEG BID [facility] Last Admin: 12/24/16 09:51 Dose: 400 mg Metoclopramide HCl (Reglan Oral Solution -) 10 mg GT TIDAC PRN PRN Reason: NAUSEA AND/OR VOMITING Metoprolol Tartrate (Lopressor -) 50 mg PEG BID [facility] Last Admin: 12/24/16 09:51 Dose: 50 mg Potassium Chloride (Potassium Chloride Oral Liquid) 20 meq PEG DAILY [facility] Last Admin: 12/24/16 09:51 Dose: 20 meq Ramelteon (Rozerem) 8 mg PO HS [facility] Last Admin: 12/23/16 21:50 Dose: 8 mg Scopolamine HBr (Transderm-Scop -) 1 patch TD Q3D@1900 [facility] Last Admin: 12/22/16 20:12 Dose: 1 patch Senna (Senna -) 2 tab PO DAILY PRN PRN Reason: CONSTIPATION - Objective Vital Signs: Vital Signs Temperature 98.3 F 12/24/16 06:00 Pulse Rate 70 12/24/16 06:00 Respiratory Rate 20 12/24/16 06:00 Blood Pressure 152/79 12/24/16 06:00 O2 Sat by Pulse Oximetry (%) 98 12/23/16 22:00 Constitutional: Yes: No Distress Cardiovascular: Yes: Regular Rate and Rhythm, S1, S2 Respiratory: Yes: Regular, CTA Bilaterally, Other (coarse BS) Gastrointestinal: Yes: Normal Bowel Sounds, Soft. No: Tenderness Edema: No Neurological: Yes: Alert, Oriented Labs: CBC, BMP 12/23/16 06:00 12/23/16 06:00 Problem List - Problems (1) Fall Code(s): W19.XXXA - UNSPECIFIED FALL, INITIAL ENCOUNTER Qualifiers: Encounter type: initial encounter Qualified Code(s): W19.XXXA - Unspecified fall, initial encounter (2) Urinary tract infection Code(s): N39.0 - URINARY TRACT INFECTION, SITE NOT SPECIFIED Qualifiers: Urinary tract infection type: acute cystitis Hematuria presence: with hematuria Qualified Code(s): N30.01 - Acute cystitis with hematuria (3) S/P percutaneous endoscopic gastrostomy (PEG) tube placement Code(s): Z93.1 - GASTROSTOMY STATUS (4) Urinary retention due to benign prostatic hyperplasia Code(s): N40.1 - BENIGN PROSTATIC HYPERPLASIA WITH LOWER URINARY TRACT SYMP R33.8 - OTHER RETENTION OF URINE (5) SBO (small bowel obstruction) Code(s): K56.69 - OTHER INTESTINAL OBSTRUCTION (6) Small bowel mass Code(s): K63.89 - OTHER SPECIFIED DISEASES OF INTESTINE (7) Silent aspiration Code(s): T17.900A - UNSP FB IN RESP TRACT, PART UNSP CAUSING ASPHYX, INIT (8) Hypernatremia Code(s): E87.0 - HYPEROSMOLALITY AND HYPERNATREMIA (9) Pneumonia Code(s): J18.9 - PNEUMONIA, UNSPECIFIED ORGANISM Qualifiers: Pneumonia type: aspiration pneumonia Aspiration pneumonia type: unspecified Laterality: bilateral Lung location: unspecified part of lung Qualified Code(s): J69.0 - Pneumonitis due to inhalation of food and vomit (10) Bacteremia Code(s): R78.81 - BACTEREMIA Assessment/Plan IV ABTX- per ID Monitor BCX (2-nd set) To f/u ECHO and Abd CT scan report (still pending) AM labs Cont TF PT eval Case was d/w pt's nurse, pt if trying to remove any tube (just removed IV line) ; needs restrains for now.
[2016-12-24] MEDS: ARFORMOTEROL TARTRATE 15 MCG/2 ML VIAL NEB SCH ×2 (10:47→22:16)
--- NOTE | 2016-12-24 15:44 | PN ---
Progress Note (short form) - Note Progress Note: resting comfortably no complaints amairani vest Vital Signs Period Temp Pulse Resp BP Sys/Hernandez Pulse Ox Last 24 Hr 97.5 F-98.3 F 60-89 18-20 124-152/64-84 98-99 cor-rrr lungs clear abd soft,nt ext no edema +vieyra echo negative ct scan fecal retention CBC, BMP 12/23/16 06:00 12/23/16 06:00 Microbiology 12/21/16 12:53 Blood - Peripheral Venous Blood Culture - Preliminary NO GROWTH OBTAINED AFTER 72 HOURS, INCUBATION TO CONTINUE FOR 2 DAYS. 12/21/16 12:53 Blood - Peripheral Venous Blood Culture - Preliminary NO GROWTH OBTAINED AFTER 72 HOURS, INCUBATION TO CONTINUE FOR 2 DAYS. 12/20/16 07:01 Blood - Peripheral Venous Blood Culture - Preliminary NO GROWTH OBTAINED AFTER 96 HOURS, INCUBATION TO CONTINUE FOR 1 DAYS. 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
[2016-12-24] MEDS: RAMELTEON 8 MG TABLET PO SCH (23:21)
[2016-12-25] MEDS: AMPICILLIN - 2 GM in SODIUM CHLORIDE 100 ML IVPB SCH ×5 (01:04→16:33)
[2016-12-25] MEDS: GENTAMICIN IVPB SCH ×2 (04:54→16:34)
[2016-12-25] MEDS: SODIUM CHLORIDE IVPB SCH ×2 (04:54→16:34)
[2016-12-25 07:48] LABS: MCH 27.2 pg (25.7-33.7); MCHC 32.4 g/dl (32.0-35.9); MEAN CELL VOLUME 83.8 fl (80-96); PLATELET COUNT 321 K/MM3 (134-434); RDW 15.7 % (11.9-15.9); WHITE BLOOD COUNT 6.4 K/mm3 (4.0-10.0)
[2016-12-25] MEDS ORDERED: PT OWN MED DRAWER 7, Y5N ONE ×4 (08:00→16:30)
[2016-12-25 08:07] LABS: ANION GAP 10 (8-16); CALCIUM 9.2 mg/dL (8.5-10.1); CO2 29 mmol/L (21-32); CREATININE 0.6 mg/dL (0.7-1.3); GLUCOSE,RANDOM 99 mg/dL (74-106)
[2016-12-25] MEDS ORDERED: PICC LINE 8 ML FLUSH PROTOCOL IVPUSH PRN (09:20)
[2016-12-25] MEDS: FINASTERIDE 5 MG TABLET (FP) PO SCH (09:26)
[2016-12-25] MEDS: LACTOBACILLUS ACIDOPHILUS 1 EACH TAB (FP) PEG SCH (09:26)
[2016-12-25] MEDS: amLODIPine BESYLATE 10 MG TABLET (FP) PEG SCH (09:26)
[2016-12-25] MEDS: METOPROLOL TARTRATE 50 MG TABLET (FP) PEG SCH (09:26)
[2016-12-25] MEDS: ASPIRIN 81 MG CHEWABLE TABLETS PEG SCH (09:26)
[2016-12-25] MEDS: MAGNESIUM OXIDE 400 MG TABLET (FP) PEG SCH (09:26)
[2016-12-25] MEDS: POTASSIUM CHLORIDE ORAL LIQUID 20 MEQ/15 ML PEG SCH (09:26)
[2016-12-25] MEDS: HEPARIN NA (PORCINE) 5,000 UNITS/ML 1ML VIAL SQ SCH (09:27)
[2016-12-25] MEDS: ARFORMOTEROL TARTRATE 15 MCG/2 ML VIAL NEB SCH (10:33)
--- NOTE | 2016-12-25 11:47 | DS ---
Physical Examination Vital Signs: Vital Signs Temperature 97.6 F 12/25/16 10:00 Pulse Rate 93 H 12/25/16 10:30 Respiratory Rate 18 12/25/16 10:00 Blood Pressure 132/75 12/25/16 10:00 O2 Sat by Pulse Oximetry (%) 98 12/25/16 10:30 Findings/Remarks: Pt w/o fever, chills, cough, SOB, CP, palp, Abd apin, N, V. Constitutional: Yes: No Distress, Calm Cardiovascular: Yes: Regular Rate and Rhythm, S1, S2 Respiratory: Yes: Regular, CTA Bilaterally, Other Gastrointestinal: Yes: Normal Bowel Sounds, Soft. No: Tenderness Edema: No Neurological: Yes: Alert, Oriented Labs: CBC, BMP 12/25/16 06:00 12/25/16 06:00 Discharge Summary Reason For Visit: UTI Current Active Problems Asymptomatic bacteriuria (Acute) Bacteremia (Acute) Fall (Acute) Silent aspiration (Acute) Urinary tract infection (Acute) Procedures: Principal: ECHO. Abd CT scan. CXR. Rib XR Hospital Course: Pt is a resident of [facility], fell out of bed, removed Chavarria catheter. Pt was sent to ER, Chavarria was placed back; pt was found to have UA suggesting UTI , started on abtx. Pt was seen by ID. 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 BCX came + for Enterococcus Faecalis; subsequent ECHO showed no vegetation, Abd CT scan w/o source of infection (+ fecal retention). ID recommended IV abtx treatment. Pt to have PICC line placed and be DC'ed to Rehab. Condition: Guarded - Instructions Diet, Activity, Other Instructions: NPO- strictly Repeate CBC, BMP Wednesday Referrals: Gini Delcid [Primary Care Provider] - Disposition: CUSTODIAL FACILITY - Home Medications Comprehensive Discharge Medication List: Ambulatory Orders this list might NOT be accurate Aspirin [ASA -] 81 mg PEG DAILY 10/16/16 Arformoterol Tartrate [Brovana -] 1 amp NEB BID amp 12/08/16 Heparin - 5,000 unit SQ BID vial 12/08/16 Insulin Sliding Scale [Novolog Vial Sliding Scale -] 1 vial SQ ACHS units 12/08 Magnesium Oxide [Mag-Ox -] 400 mg PEG BID tablet 12/08/16 Metoclopramide Oral Soln [Reglan Oral Solution -] 10 mg GT TIDAC PRN #300 ml 05/26 Metoprolol Tartrate [Lopressor -] 50 mg PEG BID tablet 12/08/16 Mirtazapine [Remeron -] 15 mg PEG HS tablet 12/08/16 Potassium Chloride [Potassium Chloride Oral Liquid] 20 meq PEG DAILY #450 ml 05/26 Sennosides [Senna -] 2 tab PEG PRN PRN MDD 2 12/09/16 Tamsulosin HCl [Flomax -] 0.4 mg PEG DAILY@0830 12/09/16 Lactobacillus Acidophilus [Bacid -] 1 tab PEG BID tab 12/15/16 Scopolamine Hydrobromide [Transderm-Scop -] 1 patch TD Q3D@1000 PRN #10 patch
--- NOTE | 2016-12-25 13:51 | PN ---
Progress Note (short form) - Note Progress Note: resting comfortably no complaints amairani vest Vital Signs Period Temp Pulse Resp BP Sys/Hernandez Pulse Ox Last 24 Hr 97.6 F-98.4 F 60-93 18-20 125-145/69-75 98-98 cor-rrr lungs clear abd soft +GT ext no edema vieyra CBC, BMP 12/25/16 06:00 12/25/16 06:00 Microbiology 12/21/16 12:53 Blood - Peripheral Venous Blood Culture - Preliminary NO GROWTH OBTAINED AFTER 96 HOURS, INCUBATION TO CONTINUE FOR 1 DAYS. 12/21/16 12:53 Blood - Peripheral Venous Blood Culture - Preliminary NO GROWTH OBTAINED AFTER 96 HOURS, INCUBATION TO CONTINUE FOR 1 DAYS. 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
[2016-12-25] MEDS: SCOPOLAMINE HYDROBROMIDE 1 PATCH PATCH.TD72 TD SCH (18:10)
[2016-12-25 18:38] VITALS: BP 119/66; PULSE 64; TEMP 98.2
== END 2016-12-25 18:30 | DRG 872 ==
LOC: JER 03:57 → JERBED 06:51 → OBSVTOIN 12-21 15:43 → J7W 12-21 17:50
PROVIDERS: ADMIT Internal Medicine; ATTEND Internal Medicine
PROC: 3E0G76Z Introduction of Nutritional Substance into Upper GI, Via Natural or Artificial Opening (ICD-10-PCS; principal; 2016-12-21)
PROC: 02HV33Z Insertion of Infusion Device into Superior Vena Cava, Percutaneous Approach (ICD-10-PCS; 2016-12-25)
PROC: B548ZZA Ultrasonography of Superior Vena Cava, Guidance (ICD-10-PCS; 2016-12-25)
DX: R78.81 Bacteremia (principal); E87.0 Hyperosmolality and hypernatremia; I13.0 Hypertensive heart and chronic kidney disease with heart failure and stage 1 through stage 4 chronic kidney disease, or unspecified chronic kidney disease; R82.71 Bacteriuria; Z93.1 Gastrostomy status; Z87.891 Personal history of nicotine dependence; Z79.4 Long term (current) use of insulin; N40.1 Benign prostatic hyperplasia with lower urinary tract symptoms; R33.8 Other retention of urine; E78.5 Hyperlipidemia, unspecified; J44.9 Chronic obstructive pulmonary disease, unspecified; K59.00 Constipation, unspecified; B95.2 Enterococcus as the cause of diseases classified elsewhere; N18.9 Chronic kidney disease, unspecified; I50.9 Heart failure, unspecified; G47.00 Insomnia, unspecified; R62.7 Adult failure to thrive
CPT/HCPCS: 36415; 36569; 71010-TC; 71101-TC; 72100-TC; 74176-TC; 77001-TC; 80048; 80053; 81003; 81015; 85025; 85027; 85651; 86140; 87040; 87086; 87186; 93005; 93010; 93306-TC; 94640; 97116-GP; 97161-GP; 99285-25; C1751; G0378; J1644

== ENCOUNTER 2017-03-29 11:00 | Inpatient (IN) | payer OTHER, BC ==
[2017-03-29 11:34] VITALS: BMI 22.2
--- NOTE | 2017-03-29 12:03 | HP ---
Admitting History and Physical - Primary Care Physician PCP: Gini Delcid S - Admission Chief Complaint: TURP urinary obstruction History of Present Illness: Patient is an 81 year old male with PMHx of dementia, BPH, CVA, COPD, PNA, AAA, HLD, intestinal obstruction, G-tube for dysphagia; the patient also has a vieyra catheter for urinary obstruction sec to BPH that the pt and his are having a hard time managing at home and states that it is not draining properly. Pt has occasional suprapubic discomfort; the patient saw dr Davis few weeks ago and is scheduled for a TURP procedure on Wednesday. Pt denies any CP SOB fever/chills, cough, N/V/C/D or bleeding. No MANLEY/LOC, no falls no LOC. Pt is in wheelchair and is very hard for him and his to go to outpt consults, offices; he was just DCd from [facility] 3 days ago. 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 Cardiovascular: Yes: CHF, HTN, Hyperlipdemia Pulmonary: Yes: COPD Gastrointestinal: Yes: Constipation, Other (SBO SB benign mass, s/p resection) Renal/: Yes: BPH Musculoskeletal: Yes: Hemiparesis - Smoking History Smoking history: Former smoker Have you smoked in the past 12 months: No Aproximately how many cigarettes per day: 10 If you are a former smoker, when did you quit?: 2016 - Alcohol/Substance Use Hx Alcohol Use: No History of Substance Use: reports: None - Social History Usual Living Arrangement: Yes: With Spouse ADL: Independent Occupation: retired from [employer] History of Recent Travel: No Home Medications - Allergies Allergies/Adverse Reactions: Allergies Allergy/AdvReac Type Severity Reaction Status Date / Time No Known Allergies Allergy Verified 03/29/17 11:30 - Home Medications Home Medications: Ambulatory Orders Aspirin [ASA -] 81 mg PEG DAILY 10/16/16 Arformoterol Tartrate [Brovana -] 1 amp NEB BID amp 12/08/16 Magnesium Oxide [Mag-Ox -] 400 mg PEG BID tablet 12/08/16 Metoclopramide Oral Soln [Reglan Oral Solution -] 10 mg GT TIDAC PRN #300 ml 05/26 Metoprolol Tartrate [Lopressor -] 50 mg PEG BID tablet 12/08/16 Mirtazapine [Remeron -] 15 mg PEG HS tablet 12/08/16 Potassium Chloride [Potassium Chloride Oral Liquid] 20 meq PEG DAILY #450 ml 05/26 Sennosides [Senna -] 2 tab PEG PRN PRN MDD 2 12/09/16 Tamsulosin HCl [Flomax -] 0.4 mg PEG DAILY@0830 12/09/16 Scopolamine Hydrobromide [Transderm-Scop -] 1 patch TD Q3D@1000 PRN #10 patch Amlodipine Besylate [Norvasc -] 10 mg PEG DAILY tablet 12/25/16 Finasteride [Proscar -] 5 mg PO DAILY tablet 12/25/16 Insulin Sliding Scale [Novolog Vial Sliding Scale -] 1 vial SQ BID #0 units Lactobacillus Acidophilus [Bacid -] 1 tab PEG BID #60 tab 12/25/16 Doxazosin Mesylate 2 mg PO DAILY 03/29/17 Family Disease History - Family Disease History Family Disease History: Heart Disease: Brother (congestive heart failure), Other : Father (lived to 99), Mother (lived to her 70's) Review of Systems - Review of Systems Constitutional: reports: Weakness (general). denies: Chills, Fever, Loss of Appetite Eyes: denies: Blurred Vision, Double Vision HENT: reports: Other (had peg but he is able to eat). denies: Difficult Swallowing Neck: denies: Stiffness, Tenderness Cardiovascular: denies: Chest Pain, Shortness of Breath Respiratory: denies: Cough, SOB Gastrointestinal: denies: Abdominal Pain, Bloating, Constipation, Rectal Bleeding Genitourinary: denies: Dysuria, Flank Pain, Hematuria Musculoskeletal: denies: Back Pain, Joint Swelling Integumentary: denies: Rash, Wound Neurological: denies: Change in Speech, Confusion, Dizziness, Seizure, Syncope Hematology/Lymphatic: denies: Easily Bruised, Excessive Bleeding Psychiatric: denies: Anxiety, Depression, Suicidal Physical Examination Vital Signs: Vital Signs Temperature 97.9 F 03/29/17 11:30 Pulse Rate 63 03/29/17 11:30 Respiratory Rate 18 03/29/17 11:30 Blood Pressure 106/60 03/29/17 11:30 O2 Sat by Pulse Oximetry (%) 100 03/29/17 11:30 Constitutional: Yes: No Distress, Calm Eyes: Yes: Conjunctiva Clear HENT: Yes: Atraumatic Neck: Yes: Supple Cardiovascular: Yes: Regular Rate and Rhythm Respiratory: Yes: CTA Bilaterally Gastrointestinal: Yes: Soft, Other (PEG). No: Distention, Tenderness Renal/: Yes: Vieyra Present. No: CVA Tenderness - Left, CVA Tenderness - Right , Hematuria Musculoskeletal: No: Joint Stiffness, Joint Swelling Extremities: No: Cold, Cool, Cyanosis Edema: No Integumentary: No: Rash, Venous Stasis Changes Neurological: Yes: WNL, Alert, Oriented ...Motor Strength: WNL Psychiatric: Yes: WNL, Alert, Oriented. No: Agitated, Suicidal Ideation Imaging - Results Chest X-ray: Report Reviewed Other: Report Reviewed Assessment/Plan Patient is an 81 year old male with PMHx of dementia, BPH, CVA, COPD, PNA, AAA, HLD, intestinal obstruction, G-tube for dysphagia; has chronic vieyra catheter for urinary obstruction sec to BPH preop eval for TURP also GI and swallow eval to see if possible to remove PEG; pt is eating po OK and takes his meds po cardio and neurology eval preop falls decubs DVT pfx d/w pt and staff
--- NOTE | 2017-03-29 13:51 | CONSULT ---
Admitting History and Physical - Primary Care Physician PCP: Gini Delcid - Admission History of Present Illness: Pt known to me from previous swallowing evaluations and MBS, now admitted for TURP. I was asked to evaluate Mr. Haddad again, for possible removal of PEG. Last MBS was performed on 01/08/17, at which time pt had persistent thrush.There was mild stasis of puree in the vallecula, possibly related to thrush. There was mild silent aspiration on thin liquid and trace on nectar thick with cup drinking. There was mild aspiration on continuous drinking with a strong responsive cough. He was NPO at the time of the study, with GT feedings. Rec included medical management for thrush,puree and nectar thick liquid on a tsp by sp path only, compensatory swallowing tx and continued sw tx. A FEES eamination as performed at [facility] and I have requested the report. The pt' s and pt report he is eating regular, chopped foods and nectar thick liquid from a cup. He completes 100% of his meals, and GT feedings are on hold. He reports coughing at times with PO intake. History Source: Patient, Family Member Limitations to Obtaining History: No Limitations - Past Medical History REHABILITATION AIDE: Yes: CVA, TIA Cardiovascular: Yes: CHF, HTN, Hyperlipdemia Pulmonary: Yes: COPD Gastrointestinal: Yes: Constipation, Other (SBO SB benign mass, s/p resection) Renal/: Yes: BPH Musculoskeletal: Yes: Hemiparesis - Smoking History Smoking history: Former smoker Have you smoked in the past 12 months: No Aproximately how many cigarettes per day: 10 If you are a former smoker, when did you quit?: 2016 - Alcohol/Substance Use Hx Alcohol Use: No History of Substance Use: reports: None - Social History ADL: Independent Occupation: retired from [employer] History of Recent Travel: No History - Admission Reason For Visit: PCP SENT - General Mental Status: Alert and Oriented, Awake and Alert, Able to Follow Commands Attention: Intact Ability to Follow Directions: Excellent Head/Neck Control: WFL - Hearing Hearing: Functional Speech Evaluation - Communication Primary Language: INDONESIAN Communication: Yes: Within Normal Limits Oral Expression Ability: Yes: No Impairment - Speech Production Able to Make Needs Known: Yes: WNL Intelligibility: Yes: WNL - Speech Characteristics Voice Loudness: Mildly Soft/Quiet Voice Pitch: Yes: Normal Voice Phonatory-based Quality: Yes: Normal, Hoarse (slight?) Speech Pattern: Normal Speech Clarity: < 100% Nasal Resonance: Normal Articulation: Yes: Precise - Language/Auditory Comprehension Follows: Yes: 2 Stage Simple Commands - Language/Verbal Expression Able to Respond to Simple Queries: Yes: WNL Able to Communicate Wants and Needs: Yes: WNL Functional Communication Status: Yes: WNL - Swallow Evaluation/Bedside Assessment Oral Secretions: Yes: WFL Dentition: Yes: Edentulous (upper), Dental Appliance Lower Facial Symmetry at Rest: Symmetrical Facial Symmetry on Retraction: Symmetrical Against Resistance Opening: Normal Against Resistance Closing: Normal Pucker Lips: Normal Lingual Movement: Normal, Symmetric Lingual Speed of Movement: Normal Lingual Movement Strgth Against Opposition: Normal Lingual Movement Characteristics: Normal Velopharyngeal Movement: Normal Laryngeal Elevation: WFL Laryngeal Movement: Able to Palpate Recommendations - Speech Evaluation, Impression/Plan Impression: Pt can likely have PEG removed as he is tolerating PO diet with 100 % acceptance at [facility], without GT feedings. The pt was seen in the waiting room of the ER. - Dysphagia Impressions/Plan Dysphagia Impressions: Risk of Aspiration, Ongoing Evaluation *Silent aspiration: cannot be R/O at bedside Recommendations: Modified Barium Swallow (r/o silent aspiration and provide most liberal diet pt can tolerate. Scheduled for 03/30/17 at 12-1 pm.), Other ( flush gt to maintai function) - Recommendations Diet Consistency: Dysphagia Minced, Other ([facility]MD [facility], pending mbs and modification, if indicated.) Liquids: [place] Thick
--- NOTE | 2017-03-29 14:39 | PDOC ---
History of Present Illness - History of Present Illness Initial Comments: 03/29/17 15:01 Patient is an 81 year old male with PMHx of dementia, BPH, CVA, COPD, PNA, AAA, HLD, intestinal obstruction, G-tube who was referred to the ER by his PCP. As per Dr. Gini Delcid, the patient has a vieyra catheter that the is having a hard time managing at home and states that it is not draining properly. Dr. Delcid also stated that the patient is scheduled for a TURP procedure on Wednesday. <Soila Weiner - Last Filed: 03/29/17 15:01> <Brenda Soriano - Last Filed: 03/29/17 16:34> - General Chief Complaint: Urinary Catheter Problem Stated Complaint: PCP SENT Time Seen by Provider: 03/29/17 14:23 Past History <Soila Weiner - Last Filed: 03/29/17 15:01> - Past Medical History Anemia: No Cancer: No Cardiac Disorders: No CVA: Yes (Mild R hemiparesis) COPD: Yes CHF: No Dementia: No Diabetes: Yes (Borderline) GI Disorders: No Disorders: No HTN: Yes Hypercholesterolemia: Yes Liver Disease: No Seizures: No Thyroid Disease: No Other medical history: vieyra cath - Surgical History Abdominal Surgery: Yes (g.tube) Appendectomy: No Cardiac Surgery: No Cholecystectomy: No Lung Surgery: Yes (chest tube for pneumothorax) Neurologic Surgery: No - Immunization History Immunization Up to Date: Yes - Suicide/Smoking/Psychosocial Hx Smoking Status: Yes Smoking History: Former smoker Have you smoked in the past 12 months: No Number of Cigarettes Smoked Daily: 10 If you are a former smoker, when did you quit?: 2016 Information on smoking cessation initiated: No 'Breaking Loose' booklet given: 03/03/16 Hx Alcohol Use: No Drug/Substance Use Hx: No Substance Use Type: None Hx Substance Use Treatment: No <Brenda Soriano - Last Filed: 03/29/17 16:34> - Past Medical History Allergies/Adverse Reactions: Allergies Allergy/AdvReac Type Severity Reaction Status Date / Time No Known Allergies Allergy Verified 03/29/17 11:30 Home Medications: Ambulatory Orders Aspirin [ASA -] 81 mg PEG DAILY 10/16/16 Arformoterol Tartrate [Brovana -] 1 amp NEB BID amp 12/08/16 Heparin - 5,000 unit SQ BID vial 12/08/16 Magnesium Oxide [Mag-Ox -] 400 mg PEG BID tablet 12/08/16 Metoclopramide Oral Soln [Reglan Oral Solution -] 10 mg GT TIDAC PRN #300 ml 05/26 Metoprolol Tartrate [Lopressor -] 50 mg PEG BID tablet 12/08/16 Mirtazapine [Remeron -] 15 mg PEG HS tablet 12/08/16 Potassium Chloride [Potassium Chloride Oral Liquid] 20 meq PEG DAILY #450 ml 05/26 Sennosides [Senna -] 2 tab PEG PRN PRN MDD 2 12/09/16 Tamsulosin HCl [Flomax -] 0.4 mg PEG DAILY@0830 12/09/16 Scopolamine Hydrobromide [Transderm-Scop -] 1 patch TD Q3D@1000 PRN #10 patch Amlodipine Besylate [Norvasc -] 10 mg PEG DAILY tablet 12/25/16 Ampicillin - 2 gm IVPB Q4H 10 Days vial NS MDD 6 12/25/16 Finasteride [Proscar -] 5 mg PO DAILY tablet 12/25/16 Gentamicin Injection [Garamycin Injection -] 50 mg IVPB Q12H #20 vial NS Insulin Sliding Scale [Novolog Vial Sliding Scale -] 1 vial SQ BID #0 units Lactobacillus Acidophilus [Bacid -] 1 tab PEG BID #60 tab 12/25/16 Picc Line Flush [Picc Line Flush -] 8 ml IVPUSH PRN PRN #0 ml 12/25/16 Review of Systems - Review of Systems Able to Perform ROS?: Yes (limited.) Comments:: 03/29/17 15:06 Patient is not complaining of any current pain. <Soila Weiner - Last Filed: 03/29/17 15:01> *Physical Exam - Vital Signs Last Vital Signs Temp Pulse Resp BP Pulse Ox 97.9 F 63 18 106/60 100 03/29/17 11:30 03/29/17 11:30 03/29/17 11:30 03/29/17 11:30 03/29/17 11:30 - Physical Exam Comments: 03/29/17 15:01 GENERAL: Vieyra Catheter - sediment, dirty-looking Awake, alert, and fully oriented, in no acute distress HEAD: No signs of trauma EYES: PERRLA, EOMI, sclera anicteric, conjunctiva clear ENT: Auricles normal inspection, hearing grossly normal, nares patent, oropharynx clear without exudates. Moist mucosa NECK: Normal ROM, supple, no lymphadenopathy, JVD, or masses LUNGS: Breath sounds equal, clear to auscultation bilaterally. No wheezes, and no crackles HEART: Regular rate and rhythm, normal S1 and S2, no murmurs, rubs or gallops ABDOMEN: G-tube- clean, dry, intact.Soft, nontender, normoactive bowel sounds. No guarding, no rebound. No masses EXTREMITIES: Normal range of motion, no edema. No clubbing or cyanosis. No cords, erythema, or tenderness NEUROLOGICAL: Cranial nerves II through XII grossly intact. Normal speech, normal gait SKIN: Warm, Dry, normal turgor, no rashes or lesions noted. <Soila Weiner - Last Filed: 03/29/17 15:01> - Vital Signs Last Vital Signs Temp Pulse Resp BP Pulse Ox 97.9 F 63 18 106/60 100 03/29/17 11:30 03/29/17 11:30 03/29/17 11:30 03/29/17 11:30 03/29/17 11:30 <Brenda Soriano - Last Filed: 03/29/17 16:34> Heart Score/ECG Review - ECG Intrepretation Comment:: 03/29/17 16:30 sinus at 67 w 1st degree av block nl axis, no acute st/t wave findings <Brenda Soriano - Last Filed: 03/29/17 16:34> ED Treatment Course - LABORATORY CBC & Chemistry Diagram: 03/29/17 14:55 03/29/17 14:55 <Soila Weiner - Last Filed: 03/29/17 15:01> - LABORATORY CBC & Chemistry Diagram: 03/29/17 14:55 03/29/17 14:55 <Brenda Soriano - Last Filed: 03/29/17 16:34> Medical Decision Making - Medical Decision Making 03/29/17 14:38 a/p: 81yo male sent in for admission for prostates problem and requiring TURP on wednesday case discussed with DR. Delcid who accepts pt to service. states he is scheduled to have a TURP wednesday she has already put in admission orders pt denies pain at this time urine coming out of the vieyra will check preop labs, ekg, cxr will admit to MED SURG 03/29/17 14:42 at the bedside and updated on the plan 03/29/17 16:33 pt with UTI on labs, will start abx <Brenda Soriano - Last Filed: 03/29/17 16:34> *DC/Admit/Observation/Transfer - Attestations Scribe Attestion: 03/29/17 15:04 Documentation prepared by Soila Weiner, acting as medical claims manager for Brenda Soriano DO. <Soila Weiner - Last Filed: 03/29/17 15:01> - Discharge Dispostion Admit: Yes - Attestations Physician Attestion: 03/29/17 14:38 I, Dr. Brenda Soriano, , attest that this document has been prepared under my direction and personally reviewed by me in its entirety. I further attest, that it accurately reflects all work, treatment, procedures and medical decision -making performed by me. <Brenda Soriano - Last Filed: 03/29/17 16:34> Diagnosis at time of Disposition: Complication of Vieyra catheter Urinary tract infection Qualifiers: Urinary tract infection type: acute cystitis Hematuria presence: with hematuria Qualified Code(s): N30.01 - Acute cystitis with hematuria - Discharge Dispostion Condition at time of disposition: Fair
[2017-03-29 15:28] LABS: ALBUMIN 2.9 g/dl (3.4-5.0); ANION GAP 6 (8-16); BILIRUBIN,TOTAL 0.5 mg/dL (0.2-1.0); CALCIUM 9.3 mg/dL (8.5-10.1); CO2 27 mmol/L (21-32); CREATININE 0.6 mg/dL (0.7-1.3); GLUCOSE,RANDOM 93 mg/dL (74-106); SGPT/ALT 14 U/L (12-78); TOT PROT 7.2 g/dl (6.4-8.2)
[2017-03-29 15:32] LABS: BASOPHIL 0.8 % (0-2.0); MCH 25.9 pg (25.7-33.7); MCHC 32.5 g/dl (32.0-35.9); MEAN CELL VOLUME 79.8 fl (80-96); MEAN PLT VOLUME 7.2 fl (7.5-11.1); NEUTROPHILS 50.5 % (42.8-82.8); PLATELET COUNT 316 K/MM3 (134-434); RDW 17.1 % (11.9-15.9); WHITE BLOOD COUNT 8.7 K/mm3 (4.0-10.0)
[2017-03-29 15:36] LABS: ALK PHOS 93 U/L (45-117); CPK 69 IU/L (39-308); THYROID STIMULATING HORMONE 0.42 uIU/ml (0.358-3.74); TROPONIN I < 0.02 ng/ml (0.00-0.05)
[2017-03-29 15:37] LABS: INR 1.04 (0.82-1.09); PROTHROMBIN TIME (PATIENT) 11.7 SEC (9.98-11.88); SGOT/AST 16 U/L (15-37)
[2017-03-29 15:40] LABS: ACTIVATED PTT 23.3 SECONDS (26.9-34.4)
[2017-03-29 15:55] LABS: URINE APPEARANCE CLOUDY; URINE BILIRUBIN NEGATIVE (NEGATIVE); URINE BLOOD 1+ (NEGATIVE); URINE COLOR YELLOW; URINE GLUCOSE (UA) NEGATIVE (NEGATIVE); URINE KETONE NEGATIVE (NEGATIVE); URINE NITRITE POSITIVE (NEGATIVE); URINE PROTEIN NEGATIVE (NEGATIVE); URINE UROBILINOGEN NEGATIVE mg/dL (0.2-1.0)
[2017-03-29] MEDS ORDERED: cefTRIAXone 1 GM/50 ML BAG (PRE-DOCKED) IVPB ONE (16:33)
[2017-03-29 17:00] LABS: URINE BACTERIA RARE /hpf (NONE SEEN); URINE MUCUS RARE; URINE RBC 21 /hpf (0-3); URINE WBC 262 /hpf (3-5)
[2017-03-29] MEDS ORDERED: CEFTRIAXONE 1 GM/50 ML BAG ONE (17:10)
--- NOTE | 2017-03-29 18:37 | CON.CARD ---
Consult Consult Specialty:: Cardiology Reason for Consultation:: preop eval - History of Present Illness History of Present Illness: Patient is an 81 year old male with PMHx of dementia, BPH, CVA, COPD, PNA, AAA, HLD, intestinal obstruction, G-tube who was referred to the ER by his PCP. As per Dr. Gini Delcid, the patient has a vieyra catheter that the is having a hard time managing at home and states that it is not draining properly. Dr. Delcid also stated that the patient is scheduled for a TURP procedure on Wednesday. PMH LE angio 02/21/2015 Dr. 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: Yes: CVA, TIA Cardio/Vascular: Yes: CHF, HTN, Hyperlipdemia Pulmonary: Yes: COPD Gastrointestinal: Yes: Constipation, Other (SBO SB benign mass, s/p resection) Renal/: Yes: BPH Musculoskeletal: Yes: Hemiparesis - Alcohol/Substance Use Hx Alcohol Use: No History of Substance Use: reports: None - Smoking History Smoking history: Former smoker Have you smoked in the past 12 months: No Aproximately how many cigarettes per day: 10 If you are a former smoker, when did you quit?: 2016 - Social History Usual Living Arrangement: Shelter ADL: Independent Occupation: retired from [employer] History of Recent Travel: No Home Medications - Allergies Allergies/Adverse Reactions: Allergies Allergy/AdvReac Type Severity Reaction Status Date / Time No Known Allergies Allergy Verified 03/29/17 11:30 - Home Medications Home Medications: Ambulatory Orders Aspirin [ASA -] 81 mg PEG DAILY 10/16/16 Arformoterol Tartrate [Brovana -] 1 amp NEB BID amp 12/08/16 Magnesium Oxide [Mag-Ox -] 400 mg PEG BID tablet 12/08/16 Metoclopramide Oral Soln [Reglan Oral Solution -] 10 mg GT TIDAC PRN #300 ml 05/26 Metoprolol Tartrate [Lopressor -] 50 mg PEG BID tablet 12/08/16 Mirtazapine [Remeron -] 15 mg PEG HS tablet 12/08/16 Potassium Chloride [Potassium Chloride Oral Liquid] 20 meq PEG DAILY #450 ml 05/26 Sennosides [Senna -] 2 tab PEG PRN PRN MDD 2 12/09/16 Tamsulosin HCl [Flomax -] 0.4 mg PEG DAILY@0830 12/09/16 Scopolamine Hydrobromide [Transderm-Scop -] 1 patch TD Q3D@1000 PRN #10 patch Amlodipine Besylate [Norvasc -] 10 mg PEG DAILY tablet 12/25/16 Finasteride [Proscar -] 5 mg PO DAILY tablet 12/25/16 Insulin Sliding Scale [Novolog Vial Sliding Scale -] 1 vial SQ BID #0 units Lactobacillus Acidophilus [Bacid -] 1 tab PEG BID #60 tab 12/25/16 Doxazosin Mesylate 2 mg PO DAILY 03/29/17 Family Disease History - Family Disease History Family Disease History: Heart Disease: Brother (congestive heart failure), Other : Father (lived to 99), Mother (lived to her 70's) Review of Systems - Review of Systems Constitutional: reports: No Symptoms Eyes: reports: No Symptoms HENT: reports: No Symptoms Neck: reports: No Symptoms Cardiovascular: reports: No Symptoms Gastrointestinal: reports: No Symptoms Genitourinary: reports: No Symptoms Breasts: reports: No Symptoms Reported Musculoskeletal: reports: No Symptoms Integumentary: reports: No Symptoms Neurological: reports: No Symptoms Endocrine: reports: No Symptoms Hematology/Lymphatic: reports: No Symptoms Psychiatric: reports: No Symptoms Vital Signs: Vital Signs Temperature 97.4 F L 03/29/17 16:52 Pulse Rate 63 03/29/17 16:52 Respiratory Rate 18 03/29/17 16:52 Blood Pressure 136/75 03/29/17 16:52 O2 Sat by Pulse Oximetry (%) 97 03/29/17 16:52 Constitutional: Yes: Well Nourished, No Distress, Calm Eyes: Yes: WNL, Conjunctiva Clear, EOM Intact HENT: Yes: WNL, Atraumatic, Normocephalic Neck: Yes: WNL, Supple, Trachea Midline Respiratory: Yes: WNL, Regular, CTA Bilaterally Gastrointestinal: Yes: WNL, Normal Bowel Sounds Renal/: Yes: WNL Cardiovascular: Yes: WNL, Regular Rate and Rhythm Musculoskeletal: Yes: WNL Extremities: Yes: WNL Integumentary: Yes: WNL Neurological: Yes: WNL, Alert, Oriented ...Motor Strength: WNL Psychiatric: Yes: WNL, Alert, Oriented - Other Data Labs, Other Data: CBC, BMP 03/29/17 14:55 03/29/17 14:55 INR, PTT INR 1.04 (0.82-1.09) 03/29/17 14:55 Troponin, BNP 03/29/17 14:55 Troponin I < 0.02 Troponin, BNP 03/29/17 14:55 Troponin I < 0.02 Imaging - Results Chest X-ray: Image Reviewed (no i/e) EKG: Pending Problem List - Problems (1) Complication of Vieyra catheter Code(s): T83.9XXA - UNSP COMPLICATION OF GENITOURINARY PROSTH DEV/GRFT, INIT (2) Urinary tract infection Code(s): N39.0 - URINARY TRACT INFECTION, SITE NOT SPECIFIED Qualifiers: Urinary tract infection type: acute cystitis Hematuria presence: with hematuria Qualified Code(s): N30.01 - Acute cystitis with hematuria (3) Abdominal aneurysm Code(s): I71.4 - ABDOMINAL AORTIC ANEURYSM, WITHOUT RUPTURE (4) Abdominal aortic aneurysm (AAA) Code(s): I71.4 - ABDOMINAL AORTIC ANEURYSM, WITHOUT RUPTURE (5) Abdominal pain Code(s): R10.9 - UNSPECIFIED ABDOMINAL PAIN (6) Aspiration into airway Code(s): T17.908A - UNSP FB IN RESP TRACT, PART UNSP CAUSING OTH INJURY, INIT (7) Asymptomatic bacteriuria Code(s): R82.71 - BACTERIURIA (8) Bacteremia Code(s): R78.81 - BACTEREMIA (9) Bandemia Code(s): D72.825 - BANDEMIA (10) Bilateral leg weakness Code(s): M62.81 - MUSCLE WEAKNESS (GENERALIZED) (11) CHF (congestive heart failure) Code(s): I50.9 - HEART FAILURE, UNSPECIFIED (12) CVA (cerebral infarction) Code(s): I63.9 - CEREBRAL INFARCTION, UNSPECIFIED (13) Cerebral aneurysm Code(s): I67.1 - CEREBRAL ANEURYSM, NONRUPTURED (14) Chronic obstructive pulmonary disease Code(s): J44.9 - CHRONIC OBSTRUCTIVE PULMONARY DISEASE, UNSPECIFIED (15) Dehydration Code(s): E86.0 - DEHYDRATION (16) Depression Code(s): F32.9 - MAJOR DEPRESSIVE DISORDER, SINGLE EPISODE, UNSPECIFIED (17) Diastolic CHF Code(s): I50.30 - UNSPECIFIED DIASTOLIC (CONGESTIVE) HEART FAILURE (18) Distended bladder Code(s): N32.89 - OTHER SPECIFIED DISORDERS OF BLADDER (19) Dysphagia Code(s): R13.10 - DYSPHAGIA, UNSPECIFIED (20) Elevated LFTs Code(s): R79.89 - OTHER SPECIFIED ABNORMAL FINDINGS OF BLOOD CHEMISTRY (21) Fall Code(s): W19.XXXA - UNSPECIFIED FALL, INITIAL ENCOUNTER Qualifiers: Encounter type: initial encounter Qualified Code(s): W19.XXXA - Unspecified fall, initial encounter (22) [place] cardiac risk >20% in next 10 years Code(s): Z91.89 - OT PERSONAL RISK FACTORS, NOT ELSEWHERE CLASSIFIED (23) Gross hematuria Code(s): R31.0 - GROSS HEMATURIA (24) HTN (hypertension) Code(s): I10 - ESSENTIAL (PRIMARY) HYPERTENSION (25) Hyperbilirubinemia Code(s): E80.6 - OTHER DISORDERS OF BILIRUBIN METABOLISM (26) Hyperglycemia Code(s): R73.9 - HYPERGLYCEMIA, UNSPECIFIED (27) Hyperlipemia, mixed Code(s): E78.2 - MIXED HYPERLIPIDEMIA (28) Hyperlipidemia Code(s): E78.5 - HYPERLIPIDEMIA, UNSPECIFIED (29) Hypernatremia Code(s): E87.0 - HYPEROSMOLALITY AND HYPERNATREMIA (30) Hypoalbuminemia Code(s): E88.09 - OTH DISORDERS OF PLASMA-PROTEIN METABOLISM, NEC (31) Hypokalemia Code(s): E87.6 - HYPOKALEMIA (32) Hypokalemia due to inadequate potassium intake Code(s): E87.6 - HYPOKALEMIA (33) Hypomagnesemia Code(s): E83.42 - HYPOMAGNESEMIA (34) Hypophosphatemia Code(s): E83.39 - OTHER DISORDERS OF PHOSPHORUS METABOLISM (35) Hypothyroid Code(s): E03.9 - HYPOTHYROIDISM, UNSPECIFIED (36) Ileus following gastrointestinal surgery Code(s): K91.3 - POSTPROCEDURAL INTESTINAL OBSTRUCTION * DO NOT USE * (37) PSVT (paroxysmal supraventricular tachycardia) Code(s): I47.1 - SUPRAVENTRICULAR TACHYCARDIA (38) Pneumatosis intestinalis Code(s): K63.89 - OTHER SPECIFIED DISEASES OF INTESTINE (39) Pneumonia Code(s): J18.9 - PNEUMONIA, UNSPECIFIED ORGANISM Qualifiers: Pneumonia type: aspiration pneumonia Aspiration pneumonia type: unspecified Laterality: bilateral Lung location: unspecified part of lung Qualified Code(s): J69.0 - Pneumonitis due to inhalation of food and vomit (40) Right hip pain Code(s): M25.551 - PAIN IN RIGHT HIP (41) Right leg pain Code(s): M79.604 - PAIN IN RIGHT LEG (42) S/P percutaneous endoscopic gastrostomy (PEG) tube placement Code(s): Z93.1 - GASTROSTOMY STATUS (43) SBO (small bowel obstruction) Code(s): K56.69 - OTHER INTESTINAL OBSTRUCTION * DO NOT USE * (44) Silent aspiration Code(s): T17.900A - UNSP FB IN RESP TRACT, PART UNSP CAUSING ASPHYX, INIT (45) Small bowel mass Code(s): K63.89 - OTHER SPECIFIED DISEASES OF INTESTINE (46) TIA (transient ischemic attack) Code(s): G45.9 - TRANSIENT CEREBRAL ISCHEMIC ATTACK, UNSPECIFIED (47) Urinary retention Code(s): R33.9 - RETENTION OF URINE, UNSPECIFIED (48) Urinary retention due to benign prostatic hyperplasia Code(s): N40.1 - BENIGN PROSTATIC HYPERPLASIA WITH LOWER URINARY TRACT SYMP; R33.8 - OTHER RETENTION OF URINE (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
[2017-03-29 19:16] LABS: URINE LEUK ESTERASE 3+ (NEGATIVE)
[2017-03-29] MEDS: METOPROLOL TARTRATE 50 MG TABLET (FP) PO SCH (21:54)
[2017-03-29] MEDS: HEPARIN NA (PORCINE) 5,000 UNITS/ML 1ML VIAL SQ SCH (21:54)
[2017-03-29] MEDS: MAGNESIUM OXIDE 400 MG TABLET (FP) PO SCH (21:54)
[2017-03-29] MEDS: MIRTAZAPINE 15 MG TABLET (FP) PO SCH (21:54)
[2017-03-29] MEDS: ARFORMOTEROL TARTRATE 15 MCG/2 ML VIAL NEB SCH (22:29)
[2017-03-30] MEDS: TAMSULOSIN HCL 0.4 MG CAP.ER.24H (FP) PO SCH (08:45)
[2017-03-30] MEDS: METOPROLOL TARTRATE 50 MG TABLET (FP) PO SCH ×2 (09:13→21:35)
[2017-03-30] MEDS: FINASTERIDE 5 MG TABLET (FP) PO SCH (09:13)
[2017-03-30] MEDS: amLODIPine BESYLATE 10 MG TABLET (FP) PO SCH (09:13)
[2017-03-30] MEDS: MAGNESIUM OXIDE 400 MG TABLET (FP) PO SCH ×2 (09:13→21:36)
--- NOTE | 2017-03-30 10:15 | CONSULT ---
Consult - text type - Consultation Consultation Note: Neurology History of Present Illness Patient is an 81 year old male with PMHx of dementia, BPH, CVA, COPD, PNA, AAA, HLD, intestinal obstruction, G-tube who was referred to the ER by his PCP. As per Dr. Gini Delcid, the patient has a vieyra catheter that the is having a hard time managing at home and states that it is not draining properly. Patient admitted and scheduled for TURP procedure on Wednesday. He has h/o of CVA but no focal deficits. CT reviewed from prior and showed no acute changes. He is not on daily ASA and does not remember being on it, though is unreliable historian. Mental status and exam appear stable at this time. Past History - Past Medical History Anemia: No Cancer: No Cardiac Disorders: No CVA: Yes (Mild R hemiparesis) COPD: Yes CHF: No Dementia: No Diabetes: Yes (Borderline) GI Disorders: No Disorders: No HTN: Yes Hypercholesterolemia: Yes Liver Disease: No Seizures: No Thyroid Disease: No Other medical history: vieyra cath - Surgical History Abdominal Surgery: Yes (g.tube) Appendectomy: No Cardiac Surgery: No Cholecystectomy: No Lung Surgery: Yes (chest tube for pneumothorax) Neurologic Surgery: No - Immunization History Immunization Up to Date: Yes - Suicide/Smoking/Psychosocial Hx Smoking Status: Yes Smoking History: Former smoker Have you smoked in the past 12 months: No Number of Cigarettes Smoked Daily: 10 If you are a former smoker, when did you quit?: 2016 Information on smoking cessation initiated: No 'Breaking Loose' booklet given: 03/03/16 Hx Alcohol Use: No Drug/Substance Use Hx: No Substance Use Type: None Hx Substance Use Treatment: No - Past Medical History Allergies/Adverse Reactions: Allergies Allergy/AdvReac Type Severity Reaction Status Date / Time No Known Allergies Allergy Verified 03/29/17 11:30 Home Medications: Ambulatory Orders Aspirin [ASA -] 81 mg PEG DAILY 10/16/16 Arformoterol Tartrate [Brovana -] 1 amp NEB BID amp 12/08/16 Heparin - 5,000 unit SQ BID vial 12/08/16 Magnesium Oxide [Mag-Ox -] 400 mg PEG BID tablet 12/08/16 Metoclopramide Oral Soln [Reglan Oral Solution -] 10 mg GT TIDAC PRN #300 ml 05/26 Metoprolol Tartrate [Lopressor -] 50 mg PEG BID tablet 12/08/16 Mirtazapine [Remeron -] 15 mg PEG HS tablet 12/08/16 Potassium Chloride [Potassium Chloride Oral Liquid] 20 meq PEG DAILY #450 ml 05/26 Sennosides [Senna -] 2 tab PEG PRN PRN MDD 2 12/09/16 Tamsulosin HCl [Flomax -] 0.4 mg PEG DAILY@0830 12/09/16 Scopolamine Hydrobromide [Transderm-Scop -] 1 patch TD Q3D@1000 PRN #10 patch Amlodipine Besylate [Norvasc -] 10 mg PEG DAILY tablet 12/25/16 Ampicillin - 2 gm IVPB Q4H 10 Days vial NS MDD 6 12/25/16 Finasteride [Proscar -] 5 mg PO DAILY tablet 12/25/16 Gentamicin Injection [Garamycin Injection -] 50 mg IVPB Q12H #20 vial NS Insulin Sliding Scale [Novolog Vial Sliding Scale -] 1 vial SQ BID #0 units Lactobacillus Acidophilus [Bacid -] 1 tab PEG BID #60 tab 12/25/16 Picc Line Flush [Picc Line Flush -] 8 ml IVPUSH PRN PRN #0 ml 12/25/16 Review of Systems - Review of Systems Able to Perform ROS?: Yes (limited.) Patient is not complaining of any current pain. *Physical Exam Vital Signs Temperature 98.3 F 03/30/17 08:39 Pulse Rate 103 H 03/30/17 08:39 Respiratory Rate 18 03/30/17 08:39 Blood Pressure 142/62 03/30/17 08:39 O2 Sat by Pulse Oximetry (%) 97 03/29/17 16:52 03/29/17 15:01 GENERAL: Vieyra Catheter - sediment, dirty-looking Awake, alert, and fully oriented, in no acute distress HEAD: No signs of trauma EYES: PERRLA, EOMI, sclera anicteric, conjunctiva clear ENT: Auricles normal inspection, hearing grossly normal, nares patent, oropharynx clear without exudates. Moist mucosa NECK: Normal ROM, supple, no lymphadenopathy, JVD, or masses LUNGS: Breath sounds equal, clear to auscultation bilaterally. No wheezes, and no crackles HEART: Regular rate and rhythm, normal S1 and S2, no murmurs, rubs or gallops ABDOMEN: G-tube- clean, dry, intact.Soft, nontender, normoactive bowel sounds. No guarding, no rebound. No masses EXTREMITIES: Normal range of motion, no edema. No clubbing or cyanosis. No cords, erythema, or tenderness NEUROLOGICAL: Cranial nerves II through XII grossly intact. Normal speech, motor intact, sensory normal, gait deferred SKIN: Warm, Dry, normal turgor, no rashes or lesions noted. CT head reviewed CBCD WBC 8.7 K/mm3 (4.0-10.0) D 03/29/17 14:55 RBC 4.86 M/mm3 (4.00-5.60) 03/29/17 14:55 Hgb 12.6 GM/dL (11.7-16.9) 03/29/17 14:55 Hct 38.8 % (35.4-49) 03/29/17 14:55 MCV 79.8 fl (80-96) L 03/29/17 14:55 MCHC 32.5 g/dl (32.0-35.9) 03/29/17 14:55 RDW 17.1 % (11.9-15.9) H 03/29/17 14:55 Plt Count 316 K/MM3 (134-434) 03/29/17 14:55 MPV 7.2 fl (7.5-11.1) L 03/29/17 14:55 CMP Sodium 140 mmol/L (136-145) 03/29/17 14:55 Potassium 5.0 mmol/L (3.5-5.1) 03/29/17 14:55 Chloride 107 mmol/L (98-107) 03/29/17 14:55 Carbon Dioxide 27 mmol/L (21-32) 03/29/17 14:55 Anion Gap 6 (8-16) L 03/29/17 14:55 BUN 13 mg/dL (7-18) 03/29/17 14:55 Creatinine 0.6 mg/dL (0.7-1.3) L 03/29/17 14:55 Creat Clearance w eGFR > 60 (>60) 03/29/17 14:55 Calcium 9.3 mg/dL (8.5-10.1) 03/29/17 14:55 Total Bilirubin 0.5 mg/dL (0.2-1.0) D 03/29/17 14:55 AST 16 U/L (15-37) D 03/29/17 14:55 ALT 14 U/L (12-78) D 03/29/17 14:55 Alkaline Phosphatase 93 U/L (45-117) 03/29/17 14:55 Total Protein 7.2 g/dl (6.4-8.2) 03/29/17 14:55 Albumin 2.9 g/dl (3.4-5.0) L D 03/29/17 14:55 Medical Decision Making 81 year old male with PMHx of dementia, BPH, CVA, COPD, PNA, AAA, HLD, intestinal obstruction, G-tube who was referred to the ER by his PCP. As per Dr. Gini Delcid, the patient has a vieyra catheter that the is having a hard time managing at home and states that it is not draining properly. Patient admitted and scheduled for TURP procedure on Wednesday. He has h/o of CVA but no focal deficits. CT reviewed from prior and showed no acute changes. He is not on daily ASA and does not remember being on it, though is unreliable historian. Mental status and exam appear stable at this time. Antiplatelet can be held for procedure Would be beneficial to start patient on daily 81mg ASA after procedure when hemodynamically able (may take a few days), if no contraindications Monitor BP, maintain < 140/90 Maintain hydration Follow up Urology plan regarding TURP Neurologically stable No neurologic contraindications to TURP at this time
--- NOTE | 2017-03-30 10:38 | CON.GI ---
Consult Consult Specialty:: GI: Dr. Ambrosio for Dr. Hollins Referred by:: Dr. Gini Delcid Reason for Consultation:: PEG removal - History of Present Illness Chief Complaint: Dysphagia History of Present Illness: 81M admitted for urinary retention and going to have TURP tomorrow. He had a prolonged hospitalization 10/24 at which time he underwent small bowel resection (benign stricuturesd small bowel on pathology). He susequently had prolonged decreased PO intake and had PEG 11/27/16. In discussion with Dr. delcid Mr. Haddad has been eating well. He is scheduled for a MBS today. - History Source History Provided By: Patient, Medical Record Limitations to Obtaining History: Poor Historian - Past Medical History OPTICAL DISPENSER: Yes: CVA, TIA Cardio/Vascular: Yes: CHF, HTN, Hyperlipdemia Pulmonary: Yes: COPD Gastrointestinal: Yes: Constipation, Other (SBO SB benign stricture, s/p resection) Renal/: Yes: BPH Musculoskeletal: Yes: Hemiparesis - Past Surgical History Additional Surgical History: Small bowel resection 10/24, PEG 11/23 - Alcohol/Substance Use Hx Alcohol Use: No History of Substance Use: reports: None - Smoking History Smoking history: Former smoker Have you smoked in the past 12 months: No Aproximately how many cigarettes per day: 10 If you are a former smoker, when did you quit?: 2016 - Social History Usual Living Arrangement: Skilled Nursing ADL: Independent Occupation: retired from [employer] Place of : [facility] History of Recent Travel: No Home Medications - Allergies Allergies/Adverse Reactions: Allergies Allergy/AdvReac Type Severity Reaction Status Date / Time No Known Allergies Allergy Verified 03/29/17 11:30 - Home Medications Home Medications: Ambulatory Orders Aspirin [ASA -] 81 mg PEG DAILY 10/16/16 Arformoterol Tartrate [Brovana -] 1 amp NEB BID amp 12/08/16 Magnesium Oxide [Mag-Ox -] 400 mg PEG BID tablet 12/08/16 Metoclopramide Oral Soln [Reglan Oral Solution -] 10 mg GT TIDAC PRN #300 ml 05/26 Metoprolol Tartrate [Lopressor -] 50 mg PEG BID tablet 12/08/16 Mirtazapine [Remeron -] 15 mg PEG HS tablet 12/08/16 Potassium Chloride [Potassium Chloride Oral Liquid] 20 meq PEG DAILY #450 ml 05/26 Sennosides [Senna -] 2 tab PEG PRN PRN MDD 2 12/09/16 Tamsulosin HCl [Flomax -] 0.4 mg PEG DAILY@0830 12/09/16 Scopolamine Hydrobromide [Transderm-Scop -] 1 patch TD Q3D@1000 PRN #10 patch Amlodipine Besylate [Norvasc -] 10 mg PEG DAILY tablet 12/25/16 Finasteride [Proscar -] 5 mg PO DAILY tablet 12/25/16 Insulin Sliding Scale [Novolog Vial Sliding Scale -] 1 vial SQ BID #0 units Lactobacillus Acidophilus [Bacid -] 1 tab PEG BID #60 tab 12/25/16 Doxazosin Mesylate 2 mg PO DAILY 03/29/17 Family Disease History - Family Disease History Family Disease History: Heart Disease: Brother (congestive heart failure), Other : Father (lived to 99), Mother (lived to her 70's) Review of Systems - Review of Systems Constitutional: denies: Chills Respiratory: denies: SOB Gastrointestinal: denies: Abdominal Pain, Rectal Bleeding Physical Exam-GI Vital Signs: Vital Signs Temperature 98.3 F 03/30/17 08:39 Pulse Rate 103 H 03/30/17 08:39 Respiratory Rate 18 03/30/17 08:39 Blood Pressure 142/62 03/30/17 08:39 O2 Sat by Pulse Oximetry (%) 97 03/29/17 16:52 Constitutional: Yes: Calm Eyes: No: Sclera Icterus Cardiovascular: Yes: Regular Rate and Rhythm Respiratory: Yes: CTA Bilaterally Gastrointestinal Inspection: No: Distention ...Auscultate: Yes: Normoactive Bowel Sounds ...Palpate: No: Tenderness Labs: CBC, BMP 03/29/17 14:55 03/29/17 14:55 INR, PTT INR 1.04 (0.82-1.09) 03/29/17 14:55 Problem List - Problems (1) Dysphagia Assessment/Plan: For MBS today. Would leave PEG in until post urological procedure. If does well post procedure / anesthesia, it can be removed Code(s): R13.10 - DYSPHAGIA, UNSPECIFIED Qualifiers: Dysphagia type: unspecified Qualified Code(s): R13.10 - Dysphagia, unspecified
--- NOTE | 2017-03-30 10:56 | PN ---
Progress Note, Physician Chief Complaint: OOB to WC in good spirits, hungry, wants to eat! Seen by swallow tx - for MBS today and GI eval no CP/SOB/fever/cough/ [place] - Current Medication List Current Medications: Active Medications Amlodipine Besylate (Norvasc -) 10 mg PO DAILY [facility] Last Admin: 03/30/17 09:13 Dose: 10 mg Arformoterol Tartrate (Brovana (Restricted To Pulmonology/Resp) -) 1 amp NEB BID [facility] Last Admin: 03/29/17 22:29 Dose: 1 amp Finasteride (Proscar -) 5 mg PO DAILY [facility] Last Admin: 03/30/17 09:13 Dose: 5 mg Heparin Sodium (Porcine) (Heparin -) 5,000 unit SQ BID [facility] Last Admin: 03/29/17 21:54 Dose: 5,000 unit Magnesium Oxide (Mag-Ox -) 400 mg PO BID [facility] Last Admin: 03/30/17 09:13 Dose: 400 mg Metoprolol Tartrate (Lopressor -) 50 mg PO BID [facility] Last Admin: 03/30/17 09:13 Dose: 50 mg Mirtazapine (Remeron -) 15 mg PO HS [facility] Last Admin: 03/29/17 21:54 Dose: 15 mg Tamsulosin HCl (Flomax -) 0.4 mg PO DAILY@0830 [facility] Last Admin: 03/30/17 08:45 Dose: 0.4 mg - Objective Vital Signs: Vital Signs Temperature 98.3 F 03/30/17 08:39 Pulse Rate 103 H 03/30/17 08:39 Respiratory Rate 18 03/30/17 08:39 Blood Pressure 142/62 03/30/17 08:39 O2 Sat by Pulse Oximetry (%) 97 03/29/17 16:52 Constitutional: Yes: No Distress, Calm Eyes: Yes: Conjunctiva Clear HENT: Yes: Atraumatic Neck: Yes: Supple Cardiovascular: Yes: Regular Rate and Rhythm Respiratory: Yes: CTA Bilaterally Gastrointestinal: Yes: Soft. No: Distention, Tenderness Genitourinary: No: CVA Tenderness - Left, CVA Tenderness - Right Musculoskeletal: No: Joint Stiffness, Joint Swelling Extremities: No: Cold, Cool Edema: No Integumentary: No: Rash, Venous Stasis Changes Neurological: Yes: WNL, Alert ...Motor Strength: WNL Psychiatric: Yes: WNL, Alert. No: Agitated, Suicidal Ideation Labs: CBC, BMP 03/29/17 14:55 03/29/17 14:55 INR, PTT INR 1.04 (0.82-1.09) 03/29/17 14:55 - ....Imaging Other: Report Reviewed Assessment/Plan Patient is an 81 year old male with PMHx of dementia, BPH, CVA, COPD, PNA, AAA, HLD, intestinal obstruction, G-tube for dysphagia; has chronic vieyra catheter for urinary obstruction sec to BPH; UTI preop eval for TURP; TURP on 03/31 d/w pt and his and they agreed with procedure, risks and alternatives d/w them also GI and swallow eval to see if possible to remove PEG; pt is eating po OK and takes his meds po cardio and neurology cleared pt for TURP NO ABSOULTE CI FOR TURP falls decubs DVT pfx d/w pt and staff
[2017-03-30] MEDS: ARFORMOTEROL TARTRATE 15 MCG/2 ML VIAL NEB SCH ×2 (11:00→22:56)
--- NOTE | 2017-03-30 11:34 | PN ---
Progress Note, Physician History of Present Illness: Patient is an 81 year old male with PMHx of dementia, BPH, CVA, COPD, PNA, AAA, HLD, intestinal obstruction, G-tube who was referred to the ER by his PCP. As per Dr. Gini Delcid, the patient has a vieyra catheter that the is having a hard time managing at home and states that it is not draining properly. Dr. Delcid also stated that the patient is scheduled for a TURP procedure on Wednesday. PMH LE angio 02/21/2015 Dr. 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 Dr Alcazar PCI LCx 09/20/2014 Dr Alcazar Claudication, intermittent HTN Hyperlipidemia TIA/CVA - Current Medication List Current Medications: Active Medications Amlodipine Besylate (Norvasc -) 10 mg PO DAILY [facility] Last Admin: 03/30/17 09:13 Dose: 10 mg Arformoterol Tartrate (Brovana (Restricted To Pulmonology/Resp) -) 1 amp NEB BID [facility] Last Admin: 03/29/17 22:29 Dose: 1 amp Finasteride (Proscar -) 5 mg PO DAILY [facility] Last Admin: 03/30/17 09:13 Dose: 5 mg Heparin Sodium (Porcine) (Heparin -) 5,000 unit SQ BID [facility] Last Admin: 03/29/17 21:54 Dose: 5,000 unit Magnesium Oxide (Mag-Ox -) 400 mg PO BID [facility] Last Admin: 03/30/17 09:13 Dose: 400 mg Metoprolol Tartrate (Lopressor -) 50 mg PO BID [facility] Last Admin: 03/30/17 09:13 Dose: 50 mg Mirtazapine (Remeron -) 15 mg PO HS [facility] Last Admin: 03/29/17 21:54 Dose: 15 mg Tamsulosin HCl (Flomax -) 0.4 mg PO DAILY@0830 [facility] Last Admin: 03/30/17 08:45 Dose: 0.4 mg - Objective Vital Signs: Vital Signs Temperature 98.3 F 03/30/17 08:39 Pulse Rate 103 H 03/30/17 08:39 Respiratory Rate 18 03/30/17 08:39 Blood Pressure 142/62 03/30/17 08:39 O2 Sat by Pulse Oximetry (%) 97 03/29/17 16:52 Eyes: Yes: WNL, Conjunctiva Clear, EOM Intact HENT: Yes: WNL, Atraumatic, Normocephalic Neck: Yes: WNL, Supple, Trachea Midline Cardiovascular: Yes: WNL, Regular Rate and Rhythm Respiratory: Yes: WNL, Regular, CTA Bilaterally Gastrointestinal: Yes: WNL, Normal Bowel Sounds Genitourinary: Yes: WNL Musculoskeletal: Yes: WNL Extremities: Yes: WNL Edema: No Integumentary: Yes: WNL Neurological: Yes: WNL, Alert, Oriented ...Motor Strength: WNL Psychiatric: Yes: WNL Labs: CBC, BMP 03/29/17 14:55 03/29/17 14:55 INR, PTT INR 1.04 (0.82-1.09) 03/29/17 14:55 Problem List - Problems (1) Complication of Vieyra catheter Code(s): T83.9XXA - UNSP COMPLICATION OF GENITOURINARY PROSTH DEV/GRFT, INIT (2) Urinary tract infection Code(s): N39.0 - URINARY TRACT INFECTION, SITE NOT SPECIFIED Qualifiers: Urinary tract infection type: acute cystitis Hematuria presence: with hematuria Qualified Code(s): N30.01 - Acute cystitis with hematuria (3) Abdominal aneurysm Code(s): I71.4 - ABDOMINAL AORTIC ANEURYSM, WITHOUT RUPTURE (4) Abdominal aortic aneurysm (AAA) Code(s): I71.4 - ABDOMINAL AORTIC ANEURYSM, WITHOUT RUPTURE (5) Abdominal pain Code(s): R10.9 - UNSPECIFIED ABDOMINAL PAIN (6) Aspiration into airway Code(s): T17.908A - UNSP FB IN RESP TRACT, PART UNSP CAUSING OTH INJURY, INIT (7) Asymptomatic bacteriuria Code(s): R82.71 - BACTERIURIA (8) Bacteremia Code(s): R78.81 - BACTEREMIA (9) Bandemia Code(s): D72.825 - BANDEMIA (10) Bilateral leg weakness Code(s): M62.81 - MUSCLE WEAKNESS (GENERALIZED) (11) CHF (congestive heart failure) Code(s): I50.9 - HEART FAILURE, UNSPECIFIED (12) CVA (cerebral infarction) Code(s): I63.9 - CEREBRAL INFARCTION, UNSPECIFIED (13) Cerebral aneurysm Code(s): I67.1 - CEREBRAL ANEURYSM, NONRUPTURED (14) Chronic obstructive pulmonary disease Code(s): J44.9 - CHRONIC OBSTRUCTIVE PULMONARY DISEASE, UNSPECIFIED (15) Dehydration Code(s): E86.0 - DEHYDRATION (16) Depression Code(s): F32.9 - MAJOR DEPRESSIVE DISORDER, SINGLE EPISODE, UNSPECIFIED (17) Diastolic CHF Code(s): I50.30 - UNSPECIFIED DIASTOLIC (CONGESTIVE) HEART FAILURE (18) Distended bladder Code(s): N32.89 - OTHER SPECIFIED DISORDERS OF BLADDER (19) Dysphagia Code(s): R13.10 - DYSPHAGIA, UNSPECIFIED (20) Elevated LFTs Code(s): R79.89 - OTHER SPECIFIED ABNORMAL FINDINGS OF BLOOD CHEMISTRY (21) Fall Code(s): W19.XXXA - UNSPECIFIED FALL, INITIAL ENCOUNTER Qualifiers: Encounter type: initial encounter Qualified Code(s): W19.XXXA - Unspecified fall, initial encounter (22) Benson cardiac risk >20% in next 10 years Code(s): Z91.89 - OT PERSONAL RISK FACTORS, NOT ELSEWHERE CLASSIFIED (23) Gross hematuria Code(s): R31.0 - GROSS HEMATURIA (24) HTN (hypertension) Code(s): I10 - ESSENTIAL (PRIMARY) HYPERTENSION (25) Hyperbilirubinemia Code(s): E80.6 - OTHER DISORDERS OF BILIRUBIN METABOLISM (26) Hyperglycemia Code(s): R73.9 - HYPERGLYCEMIA, UNSPECIFIED (27) Hyperlipemia, mixed Code(s): E78.2 - MIXED HYPERLIPIDEMIA (28) Hyperlipidemia Code(s): E78.5 - HYPERLIPIDEMIA, UNSPECIFIED (29) Hypernatremia Code(s): E87.0 - HYPEROSMOLALITY AND HYPERNATREMIA (30) Hypoalbuminemia Code(s): E88.09 - OTH DISORDERS OF PLASMA-PROTEIN METABOLISM, NEC (31) Hypokalemia Code(s): E87.6 - HYPOKALEMIA (32) Hypokalemia due to inadequate potassium intake Code(s): E87.6 - HYPOKALEMIA (33) Hypomagnesemia Code(s): E83.42 - HYPOMAGNESEMIA (34) Hypophosphatemia Code(s): E83.39 - OTHER DISORDERS OF PHOSPHORUS METABOLISM (35) Hypothyroid Code(s): E03.9 - HYPOTHYROIDISM, UNSPECIFIED (36) Ileus following gastrointestinal surgery Code(s): K91.3 - POSTPROCEDURAL INTESTINAL OBSTRUCTION * DO NOT USE * (37) PSVT (paroxysmal supraventricular tachycardia) Code(s): I47.1 - SUPRAVENTRICULAR TACHYCARDIA (38) Pneumatosis intestinalis Code(s): K63.89 - OTHER SPECIFIED DISEASES OF INTESTINE (39) Pneumonia Code(s): J18.9 - PNEUMONIA, UNSPECIFIED ORGANISM Qualifiers: Pneumonia type: aspiration pneumonia Aspiration pneumonia type: unspecified Laterality: bilateral Lung location: unspecified part of lung Qualified Code(s): J69.0 - Pneumonitis due to inhalation of food and vomit (40) Right hip pain Code(s): M25.551 - PAIN IN RIGHT HIP (41) Right leg pain Code(s): M79.604 - PAIN IN RIGHT LEG (42) S/P percutaneous endoscopic gastrostomy (PEG) tube placement Code(s): Z93.1 - GASTROSTOMY STATUS (43) SBO (small bowel obstruction) Code(s): K56.69 - OTHER INTESTINAL OBSTRUCTION * DO NOT USE * (44) Silent aspiration Code(s): T17.900A - UNSP FB IN RESP TRACT, PART UNSP CAUSING ASPHYX, INIT (45) Small bowel mass Code(s): K63.89 - OTHER SPECIFIED DISEASES OF INTESTINE (46) TIA (transient ischemic attack) Code(s): G45.9 - TRANSIENT CEREBRAL ISCHEMIC ATTACK, UNSPECIFIED (47) Urinary retention Code(s): R33.9 - RETENTION OF URINE, UNSPECIFIED (48) Urinary retention due to benign prostatic hyperplasia Code(s): N40.1 - BENIGN PROSTATIC HYPERPLASIA WITH LOWER URINARY TRACT SYMP; R33.8 - OTHER RETENTION OF URINE (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
[2017-03-30] MEDS: HEPARIN NA (PORCINE) 5,000 UNITS/ML 1ML VIAL SQ SCH ×2 (12:29→21:36)
[2017-03-30] MEDS ORDERED: CEFTRIAXONE 2 MG in DEXTROSE 5%-WATER - 50 ML IVPB ONE (13:56)
--- NOTE | 2017-03-30 14:01 | CON.GU ---
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 Cardio/Vascular: Yes: CHF, HTN, Hyperlipdemia Pulmonary: Yes: COPD Gastrointestinal: Yes: Constipation, Other (SBO SB benign mass, s/p resection) Renal/: Yes: BPH Musculoskeletal: Yes: Hemiparesis - Past Surgical History Additional Surgical History: Small bowel resection 10/24, PEG 11/23 - Alcohol/Substance Use Hx Alcohol Use: No History of Substance Use: reports: None - Smoking History Smoking history: Former smoker Have you smoked in the past 12 months: No Aproximately how many cigarettes per day: 10 If you are a former smoker, when did you quit?: 2015 - Social History Usual Living Arrangement: Long-Term ADL: Independent Occupation: retired from [email or web address] History of Recent Travel: No Home Medications - Allergies Allergies/Adverse Reactions: Allergies Allergy/AdvReac Type Severity Reaction Status Date / Time No Known Allergies Allergy Verified 03/29/17 11:30 - Home Medications Home Medications: Ambulatory Orders Aspirin [ASA -] 81 mg PEG DAILY 10/16/16 Arformoterol Tartrate [Brovana -] 1 amp NEB BID amp 12/08/16 Magnesium Oxide [Mag-Ox -] 400 mg PEG BID tablet 12/08/16 Metoclopramide Oral Soln [Reglan Oral Solution -] 10 mg GT TIDAC PRN #300 ml 05/26 Metoprolol Tartrate [Lopressor -] 50 mg PEG BID tablet 12/08/16 Mirtazapine [Remeron -] 15 mg PEG HS tablet 12/08/16 Potassium Chloride [Potassium Chloride Oral Liquid] 20 meq PEG DAILY #450 ml 05/26 Sennosides [Senna -] 2 tab PEG PRN PRN MDD 2 12/09/16 Tamsulosin HCl [Flomax -] 0.4 mg PEG DAILY@0830 12/09/16 Scopolamine Hydrobromide [Transderm-Scop -] 1 patch TD Q3D@1000 PRN #10 patch Amlodipine Besylate [Norvasc -] 10 mg PEG DAILY tablet 12/25/16 Finasteride [Proscar -] 5 mg PO DAILY tablet 12/25/16 Insulin Sliding Scale [Novolog Vial Sliding Scale -] 1 vial SQ BID #0 units Lactobacillus Acidophilus [Bacid -] 1 tab PEG BID #60 tab 12/25/16 Doxazosin Mesylate 2 mg PO DAILY 03/29/17 Family Disease History - Family Disease History Family Disease History: Heart Disease: Brother (congestive heart failure), Other : Father (lived to 99), Mother (lived to her 70's) Review of Systems - Review of Systems Genitourinary: reports: No Symptoms Physical Exam- Vital Signs: Vital Signs Temperature 98.3 F 03/30/17 08:39 Pulse Rate 103 H 03/30/17 08:39 Respiratory Rate 18 03/30/17 08:39 Blood Pressure 142/62 03/30/17 08:39 O2 Sat by Pulse Oximetry (%) 97 03/29/17 16:52 Constitutional: Yes: No Distress, Calm Renal/: Yes: Chavarria Present. No: Bladder Distention, CVA Tenderness - Left, CVA Tenderness - Right, Hematuria Labs: CBC, BMP 03/29/17 14:55 03/29/17 14:55 Problem List - Problems (1) Benign localized hyperplasia of prostate with urinary obstruction Assessment/Plan: for TURP tomorrow Code(s): N40.1 - BENIGN PROSTATIC HYPERPLASIA WITH LOWER URINARY TRACT SYMP; N13.8 - OTHER OBSTRUCTIVE AND REFLUX UROPATHY
--- NOTE | 2017-03-30 18:12 | EKG ---
Test Reason : Blood Pressure : / mmHG Vent. Rate : 067 BPM Atrial Rate : 067 BPM P-R Int : 230 ms QRS Dur : 082 ms QT Int : 422 ms P-R-T Axes : 076 036 060 degrees QTc Int : 445 ms SINUS RHYTHM WITH 1ST DEGREE A-V BLOCK BASELINE ARTIFACT EARLY REPOLARIZATION WHEN COMPARED WITH ECG OF 20-DEC-2016 07:55, CT INTERVAL HAS INCREASED REPEAT EKG IF CLINICALLY INDICATED Confirmed by JOSHUA CLAYTON MD ([id number]) on 03/30/2017 6:11:51 PM Referred By: Confirmed By:JOSHUA CLAYTON MD
[2017-03-30] MEDS: MIRTAZAPINE 15 MG TABLET (FP) PO SCH (21:36)
--- NOTE | 2017-03-31 06:38 | PN ---
Progress Note, Physician Chief Complaint: in bed awake alert NAD, said he feels tired, he did not sleep well last night but does not have any specific c/o, denies any pain CP/SOB; said he is anxious b /o surgery - Current Medication List Current Medications: Active Medications Amlodipine Besylate (Norvasc -) 10 mg PO DAILY [facility] Last Admin: 03/30/17 09:13 Dose: 10 mg Arformoterol Tartrate (Brovana (Restricted To Pulmonology/Resp) -) 1 amp NEB BID [facility] Last Admin: 03/30/17 22:56 Dose: 1 amp Finasteride (Proscar -) 5 mg PO DAILY [facility] Last Admin: 03/30/17 09:13 Dose: 5 mg Heparin Sodium (Porcine) (Heparin -) 5,000 unit SQ BID [facility] Last Admin: 03/30/17 21:36 Dose: 5,000 unit Magnesium Oxide (Mag-Ox -) 400 mg PO BID [facility] Last Admin: 03/30/17 21:36 Dose: 400 mg Metoprolol Tartrate (Lopressor -) 50 mg PO BID [facility] Last Admin: 03/30/17 21:35 Dose: 50 mg Mirtazapine (Remeron -) 15 mg PO HS [facility] Last Admin: 03/30/17 21:36 Dose: 15 mg Tamsulosin HCl (Flomax -) 0.4 mg PO DAILY@0830 [facility] Last Admin: 03/30/17 08:45 Dose: 0.4 mg - Objective Vital Signs: Vital Signs Temperature 97.8 F 03/30/17 20:40 Pulse Rate 62 03/30/17 20:40 Respiratory Rate 20 03/30/17 21:00 Blood Pressure 119/65 03/30/17 20:40 O2 Sat by Pulse Oximetry (%) 97 03/30/17 21:00 Constitutional: Yes: No Distress, Calm Eyes: Yes: Conjunctiva Clear HENT: Yes: Atraumatic Neck: Yes: Supple Cardiovascular: Yes: Regular Rate and Rhythm Respiratory: Yes: CTA Bilaterally Gastrointestinal: Yes: Soft. No: Distention Genitourinary: Yes: Vieyra Present. No: CVA Tenderness - Left, CVA Tenderness - Right, Hematuria Musculoskeletal: No: Joint Stiffness, Joint Swelling Extremities: No: Cold, Cool Edema: No Integumentary: No: Rash, Venous Stasis Changes Neurological: Yes: WNL, Alert ...Motor Strength: WNL Psychiatric: Yes: WNL, Alert. No: Agitated, Suicidal Ideation Labs: CBC, BMP 03/29/17 14:55 03/29/17 14:55 INR, PTT INR 1.04 (0.82-1.09) 03/29/17 14:55 - ....Imaging Other: Report Reviewed Assessment/Plan Patient is an 81 year old male with PMHx of dementia, BPH, CVA, COPD, PNA, AAA, HLD, intestinal obstruction, G-tube for dysphagia; has chronic vieyra catheter for urinary obstruction sec to BPH; UTI for TURP today, d/w pt and his and they agreed with procedure, risks and alternatives d/w them ID eval for UTI h/o enterococcus and ESBL GI f/u to see if possible to remove PEG; pt is eating po OK and takes his meds po cardio and neurology cleared pt for TURP NO ABSOULTE CI FOR TURP falls decubs DVT pfx d/w pt and and staff.
--- NOTE | 2017-03-31 10:02 | PN ---
Progress Note (short form) - Note Progress Note: Neurology History of Present Illness Patient is an 81 year old male with PMHx of dementia, BPH, CVA, COPD, PNA, AAA, HLD, intestinal obstruction, G-tube who was referred to the ER by his PCP. As per Dr. iGni Delcid, the patient has a vieyra catheter that the is having a hard time managing at home and states that it is not draining properly. Patient admitted and scheduled for TURP procedure today. He has h/o of CVA but no focal deficits. CT reviewed from prior and showed no acute changes. He is not on daily ASA and does not remember being on it, though is unreliable historian. Mental status and exam appear stable at this time. No acute events overnight, patient has been neurologically stable and planned for TURP today. Active Medications Amlodipine Besylate (Norvasc -) 10 mg PO DAILY [facility] Last Admin: 03/30/17 09:13 Dose: 10 mg Arformoterol Tartrate (Brovana (Restricted To Pulmonology/Resp) -) 1 amp NEB BID [facility] Last Admin: 03/30/17 22:56 Dose: 1 amp Finasteride (Proscar -) 5 mg PO DAILY [facility] Last Admin: 03/30/17 09:13 Dose: 5 mg Heparin Sodium (Porcine) (Heparin -) 5,000 unit SQ BID [facility] Last Admin: 03/30/17 21:36 Dose: 5,000 unit Magnesium Oxide (Mag-Ox -) 400 mg PO BID [facility] Last Admin: 03/30/17 21:36 Dose: 400 mg Metoprolol Tartrate (Lopressor -) 50 mg PO BID [facility] Last Admin: 03/30/17 21:35 Dose: 50 mg Mirtazapine (Remeron -) 15 mg PO HS [facility] Last Admin: 03/30/17 21:36 Dose: 15 mg Tamsulosin HCl (Flomax -) 0.4 mg PO DAILY@0830 [facility] Last Admin: 03/30/17 08:45 Dose: 0.4 mg *Physical Exam Vital Signs Temperature 98.1 F 03/31/17 08:24 Pulse Rate 62 03/31/17 08:24 Respiratory Rate 18 03/31/17 08:24 Blood Pressure 134/75 03/31/17 08:24 O2 Sat by Pulse Oximetry (%) 97 03/30/17 21:00 03/29/17 15:01 GENERAL: Vieyra Catheter - sediment, dirty-looking Awake, alert, and fully oriented, in no acute distress HEAD: No signs of trauma EYES: PERRLA, EOMI, sclera anicteric, conjunctiva clear ENT: Auricles normal inspection, hearing grossly normal, nares patent, oropharynx clear without exudates. Moist mucosa NECK: Normal ROM, supple, no lymphadenopathy, JVD, or masses LUNGS: Breath sounds equal, clear to auscultation bilaterally. No wheezes, and no crackles HEART: Regular rate and rhythm, normal S1 and S2, no murmurs, rubs or gallops ABDOMEN: G-tube- clean, dry, intact.Soft, nontender, normoactive bowel sounds. No guarding, no rebound. No masses EXTREMITIES: Normal range of motion, no edema. No clubbing or cyanosis. No cords, erythema, or tenderness NEUROLOGICAL: Cranial nerves II through XII grossly intact. Normal speech, motor intact, sensory normal, gait deferred SKIN: Warm, Dry, normal turgor, no rashes or lesions noted. CT head reviewed 03/29/17 14:55 03/29/17 14:55 Medical Decision Making 81 year old male with PMHx of dementia, BPH, CVA, COPD, PNA, AAA, HLD, intestinal obstruction, G-tube who was referred to the ER by his PCP. As per Dr. Gini Delcid, the patient has a vieyra catheter that the is having a hard time managing at home and states that it is not draining properly. Patient admitted and scheduled for TURP procedure on Wednesday. He has h/o of CVA but no focal deficits. CT reviewed from prior and showed no acute changes. He is not on daily ASA and does not remember being on it, though is unreliable historian. Mental status and exam appear stable at this time. Antiplatelet can be held for procedure Would be beneficial to start patient on daily 81mg ASA after procedure when hemodynamically able (may take a few days), if no contraindications Monitor BP, maintain < 140/90 Maintain hydration Follow up Urology plan regarding TURP Neurologically stable No neurologic contraindications to TURP at this time
--- NOTE | 2017-03-31 11:13 | PN ---
Progress Note, Physician History of Present Illness: Patient is an 81 year old male with PMHx of dementia, BPH, CVA, COPD, PNA, AAA, HLD, intestinal obstruction, G-tube who was referred to the ER by his PCP. As per Dr. Gini Delcid, the patient has a vieyra catheter that the is having a hard time managing at home and states that it is not draining properly. Dr. Delcid also stated that the patient is scheduled for a TURP procedure on Wednesday. PMH LE angio 02/21/2015 Dr. 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 08/10/2014 Dr Alcazar PCI LCx 09/20/2014 Dr Alcazar Claudication, intermittent HTN Hyperlipidemia TIA/CVA - Current Medication List Current Medications: Active Medications Amlodipine Besylate (Norvasc -) 10 mg PO DAILY [facility] Last Admin: 03/30/17 09:13 Dose: 10 mg Arformoterol Tartrate (Brovana (Restricted To Pulmonology/Resp) -) 1 amp NEB BID [facility] Last Admin: 03/30/17 22:56 Dose: 1 amp Finasteride (Proscar -) 5 mg PO DAILY [facility] Last Admin: 03/30/17 09:13 Dose: 5 mg Heparin Sodium (Porcine) (Heparin -) 5,000 unit SQ BID [facility] Last Admin: 03/30/17 21:36 Dose: 5,000 unit Magnesium Oxide (Mag-Ox -) 400 mg PO BID [facility] Last Admin: 03/30/17 21:36 Dose: 400 mg Metoprolol Tartrate (Lopressor -) 50 mg PO BID [facility] Last Admin: 03/30/17 21:35 Dose: 50 mg Mirtazapine (Remeron -) 15 mg PO HS [facility] Last Admin: 03/30/17 21:36 Dose: 15 mg Tamsulosin HCl (Flomax -) 0.4 mg PO DAILY@0830 [facility] Last Admin: 03/30/17 08:45 Dose: 0.4 mg - Objective Vital Signs: Vital Signs Temperature 98.1 F 03/31/17 08:24 Pulse Rate 62 03/31/17 08:24 Respiratory Rate 18 03/31/17 08:24 Blood Pressure 134/75 03/31/17 08:24 O2 Sat by Pulse Oximetry (%) 97 03/30/17 21:00 Eyes: Yes: WNL, Conjunctiva Clear, EOM Intact HENT: Yes: WNL, Atraumatic, Normocephalic Neck: Yes: WNL, Supple, Trachea Midline Cardiovascular: Yes: WNL, Regular Rate and Rhythm Respiratory: Yes: WNL, Regular, CTA Bilaterally Gastrointestinal: Yes: WNL, Normal Bowel Sounds Genitourinary: Yes: WNL Musculoskeletal: Yes: WNL Extremities: Yes: WNL Edema: No Integumentary: Yes: WNL Neurological: Yes: WNL, Alert, Oriented ...Motor Strength: WNL Psychiatric: Yes: WNL Labs: CBC, BMP 03/29/17 14:55 03/29/17 14:55 INR, PTT INR 1.04 (0.82-1.09) 03/29/17 14:55 Problem List - Problems (1) Complication of Vieyra catheter Code(s): T83.9XXA - UNSP COMPLICATION OF GENITOURINARY PROSTH DEV/GRFT, INIT (2) Urinary tract infection Code(s): N39.0 - URINARY TRACT INFECTION, SITE NOT SPECIFIED Qualifiers: Urinary tract infection type: acute cystitis Hematuria presence: with hematuria Qualified Code(s): N30.01 - Acute cystitis with hematuria (3) Abdominal aneurysm Code(s): I71.4 - ABDOMINAL AORTIC ANEURYSM, WITHOUT RUPTURE (4) Abdominal aortic aneurysm (AAA) Code(s): I71.4 - ABDOMINAL AORTIC ANEURYSM, WITHOUT RUPTURE (5) Abdominal pain Code(s): R10.9 - UNSPECIFIED ABDOMINAL PAIN (6) Aspiration into airway Code(s): T17.908A - UNSP FB IN RESP TRACT, PART UNSP CAUSING OTH INJURY, INIT (7) Asymptomatic bacteriuria Code(s): R82.71 - BACTERIURIA (8) Bacteremia Code(s): R78.81 - BACTEREMIA (9) Bandemia Code(s): D72.825 - BANDEMIA (10) Bilateral leg weakness Code(s): M62.81 - MUSCLE WEAKNESS (GENERALIZED) (11) CHF (congestive heart failure) Code(s): I50.9 - HEART FAILURE, UNSPECIFIED (12) CVA (cerebral infarction) Code(s): I63.9 - CEREBRAL INFARCTION, UNSPECIFIED (13) Cerebral aneurysm Code(s): I67.1 - CEREBRAL ANEURYSM, NONRUPTURED (14) Chronic obstructive pulmonary disease Code(s): J44.9 - CHRONIC OBSTRUCTIVE PULMONARY DISEASE, UNSPECIFIED (15) Dehydration Code(s): E86.0 - DEHYDRATION (16) Depression Code(s): F32.9 - MAJOR DEPRESSIVE DISORDER, SINGLE EPISODE, UNSPECIFIED (17) Diastolic CHF Code(s): I50.30 - UNSPECIFIED DIASTOLIC (CONGESTIVE) HEART FAILURE (18) Distended bladder Code(s): N32.89 - OTHER SPECIFIED DISORDERS OF BLADDER (19) Dysphagia Code(s): R13.10 - DYSPHAGIA, UNSPECIFIED (20) Elevated LFTs Code(s): R79.89 - OTHER SPECIFIED ABNORMAL FINDINGS OF BLOOD CHEMISTRY (21) Fall Code(s): W19.XXXA - UNSPECIFIED FALL, INITIAL ENCOUNTER Qualifiers: Encounter type: initial encounter Qualified Code(s): W19.XXXA - Unspecified fall, initial encounter (22) [place] cardiac risk >20% in next 10 years Code(s): Z91.89 - OT PERSONAL RISK FACTORS, NOT ELSEWHERE CLASSIFIED (23) Gross hematuria Code(s): R31.0 - GROSS HEMATURIA (24) HTN (hypertension) Code(s): I10 - ESSENTIAL (PRIMARY) HYPERTENSION (25) Hyperbilirubinemia Code(s): E80.6 - OTHER DISORDERS OF BILIRUBIN METABOLISM (26) Hyperglycemia Code(s): R73.9 - HYPERGLYCEMIA, UNSPECIFIED (27) Hyperlipemia, mixed Code(s): E78.2 - MIXED HYPERLIPIDEMIA (28) Hyperlipidemia Code(s): E78.5 - HYPERLIPIDEMIA, UNSPECIFIED (29) Hypernatremia Code(s): E87.0 - HYPEROSMOLALITY AND HYPERNATREMIA (30) Hypoalbuminemia Code(s): E88.09 - OTH DISORDERS OF PLASMA-PROTEIN METABOLISM, NEC (31) Hypokalemia Code(s): E87.6 - HYPOKALEMIA (32) Hypokalemia due to inadequate potassium intake Code(s): E87.6 - HYPOKALEMIA (33) Hypomagnesemia Code(s): E83.42 - HYPOMAGNESEMIA (34) Hypophosphatemia Code(s): E83.39 - OTHER DISORDERS OF PHOSPHORUS METABOLISM (35) Hypothyroid Code(s): E03.9 - HYPOTHYROIDISM, UNSPECIFIED (36) Ileus following gastrointestinal surgery Code(s): K91.3 - POSTPROCEDURAL INTESTINAL OBSTRUCTION * DO NOT USE * (37) PSVT (paroxysmal supraventricular tachycardia) Code(s): I47.1 - SUPRAVENTRICULAR TACHYCARDIA (38) Pneumatosis intestinalis Code(s): K63.89 - OTHER SPECIFIED DISEASES OF INTESTINE (39) Pneumonia Code(s): J18.9 - PNEUMONIA, UNSPECIFIED ORGANISM Qualifiers: Pneumonia type: aspiration pneumonia Aspiration pneumonia type: unspecified Laterality: bilateral Lung location: unspecified part of lung Qualified Code(s): J69.0 - Pneumonitis due to inhalation of food and vomit (40) Right hip pain Code(s): M25.551 - PAIN IN RIGHT HIP (41) Right leg pain Code(s): M79.604 - PAIN IN RIGHT LEG (42) S/P percutaneous endoscopic gastrostomy (PEG) tube placement Code(s): Z93.1 - GASTROSTOMY STATUS (43) SBO (small bowel obstruction) Code(s): K56.69 - OTHER INTESTINAL OBSTRUCTION * DO NOT USE * (44) Silent aspiration Code(s): T17.900A - UNSP FB IN RESP TRACT, PART UNSP CAUSING ASPHYX, INIT (45) Small bowel mass Code(s): K63.89 - OTHER SPECIFIED DISEASES OF INTESTINE (46) TIA (transient ischemic attack) Code(s): G45.9 - TRANSIENT CEREBRAL ISCHEMIC ATTACK, UNSPECIFIED (47) Urinary retention Code(s): R33.9 - RETENTION OF URINE, UNSPECIFIED (48) Urinary retention due to benign prostatic hyperplasia Code(s): N40.1 - BENIGN PROSTATIC HYPERPLASIA WITH LOWER URINARY TRACT SYMP; R33.8 - OTHER RETENTION OF URINE (49) Wasting syndrome Code(s): R64 - CACHEXIA (50) Weakness Code(s): R53.1 - WEAKNESS Assessment/Plan ASHD s/p PCI [id number] PAD s/p 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
--- NOTE | 2017-03-31 11:17 | PN ---
Progress Note, [employer] - Note Progress Note: MBS reviewed with staff and pt's . NPO for FEES examination reviewed.CASSANDRA today. Selected Entries 03/29/17 03/30/17 03/30/17 22:42 07:38 08:39 Breakfast Supper 100% Temperature 98.5 F 98.3 F 03/30/17 03/30/17 03/30/17 11:42 14:00 18:00 Breakfast 100% Supper 75% Temperature 98.2 F 98.1 F 03/30/17 03/31/17 03/31/17 20:40 06:00 08:24 Breakfast Supper Temperature 97.8 F 98.6 F 98.1 F 03/31/17 10:00 Breakfast NPO Supper Temperature Laboratory Tests 03/29/17 03/29/17 14:55 14:55 WBC 8.7 D Total Protein 7.2 Albumin 2.9 L D
[2017-03-31] MEDS ORDERED: MIDAZOLAM HCL 2 MG/2 ML SINGLE DOSE VIAL ONE (11:23)
[2017-03-31] MEDS ORDERED: ceFAZolin SODIUM 1 GM VIAL IVPB ONE ×2 (11:24→11:26)
[2017-03-31] MEDS ORDERED: DEXTROSE 5%-0.45% SALINE 1,000 ML IV SCH (12:30)
--- NOTE | 2017-03-31 12:31 | OP ---
Operative Note - Note: Operative Date: 03/31/17 Pre-Operative Diagnosis: urinary retention. BPH Operation: cysto. TURP. SP tube placement. Post-Operative Diagnosis: Same as Pre-op Surgeon: Chevy Davis Anesthesia: Spinal Operative Report Dictated: Yes
[2017-03-31] MEDS ORDERED: PROMETHAZINE HCL 25 MG/1 ML VIAL IVPUSH PRN (12:36)
[2017-03-31] MEDS ORDERED: ONDANSETRON 4 MG/2 ML VIAL IVPUSH PRN (12:36)
[2017-03-31] MEDS ORDERED: oxyCODONE HCL 5 MG TABLET PO PRN (12:36)
[2017-03-31] MEDS ORDERED: LACTATED RINGERS SOLUTION 1,000 ML IV SCH (12:45)
--- NOTE | 2017-03-31 12:57 | CONSULT ---
Consultation: REQUESTING PROVIDER: Historian: EMR as pt has dementia CONSULT REQUEST: We have been asked to medically evaluate this patient for hx of enterococcus and ESBL. HISTORY OF PRESENT ILLNESS: 81M w/ hx of dementia, BPH w/ chronic vieyra catheter, recent bacteremia with enterococcus and UTI w/ ESBL (12/2016) CVA, COPD, PNA, AAA, HLD, intestinal obstruction, and G-tube for dysphagia presenting with urinary obstruction to receive TURP. Per pt and family, pt's vieyra catheter has not been draining properly, and he has been having suprapubic discomfort. Pt has been seeing urology, Dr. Davis, and is scheduled for TURP on 03/31. REVIEW OF SYSTEMS: CONSTITUTIONAL: Absent: fever, chills, diaphoresis, generalized weakness, malaise, loss of appetite, weight change HEENT: Absent: rhinorrhea, nasal congestion, throat pain, throat swelling, difficulty swallowing, mouth swelling, ear pain, eye pain, visual changes CARDIOVASCULAR: Absent: chest pain, syncope, palpitations, irregular heart rate, lightheadedness , peripheral edema RESPIRATORY: Absent: cough, shortness of breath, dyspnea with exertion, orthopnea, wheezing, stridor, hemoptysis GASTROINTESTINAL: Absent: abdominal pain, abdominal distension, nausea, vomiting, diarrhea, constipation, melena, hematochezia GENITOURINARY: Absent: dysuria, frequency, urgency, hesitancy, hematuria, flank pain, genital pain present: suprapubic discomfort, vieyra not draining properly MUSCULOSKELETAL: Absent: myalgia, arthralgia, joint swelling, back pain, neck pain SKIN: Absent: rash, itching, pallor HEMATOLOGIC/IMMUNOLOGIC: Absent: easy bleeding, easy bruising, lymphadenopathy, frequent infections ENDOCRINE: Absent: unexplained weight gain, unexplained weight loss, heat intolerance, cold intolerance NEUROLOGIC: Absent: headache, focal weakness or paresthesias, dizziness, unsteady gait, seizure, mental status changes, bladder or bowel incontinence PSYCHIATRIC: Absent: anxiety, depression, suicidal or homicidal ideation, hallucinations. PHYSICAL EXAMINATION Vital Signs - 24 hr 03/30/17 03/30/17 03/30/17 14:00 18:00 20:40 Temperature 98.2 F 98.1 F 97.8 F Pulse Rate 58 L 65 62 Respiratory 20 20 20 Rate Blood Pressure 124/61 101/52 119/65 O2 Sat by Pulse Oximetry (%) 03/30/17 03/31/17 03/31/17 21:00 06:00 08:24 Temperature 98.6 F 98.1 F Pulse Rate 65 62 Respiratory 20 20 18 Rate Blood Pressure 136/78 134/75 O2 Sat by Pulse 97 Oximetry (%) GENERAL: Awake, alert, in no acute distress. HEAD: Normal with no signs of trauma. EYES: Pupils equal, round and reactive to light, extraocular movements intact, sclera anicteric, conjunctiva clear. No lid lag. EARS, NOSE, THROAT: Ears normal, nares patent, oropharynx clear without exudates. Moist mucous membranes. NECK: Normal range of motion, supple without lymphadenopathy, JVD, or masses. LUNGS: Breath sounds equal, clear to auscultation bilaterally. No wheezes, and no crackles. No accessory muscle use. HEART: Regular rate and rhythm, normal S1 and S2 without murmur, rub or gallop. ABDOMEN: soft, NT, ND, no organomegaly : suprapubic catheter in place, triple lumen vieyra catheter inserted w/ CBI, draining bloody urine MUSCULOSKELETAL: Normal range of motion at all joints. No bony deformities or tenderness. No CVA tenderness. UPPER EXTREMITIES: 2+ pulses, warm, well-perfused. No cyanosis. No clubbing. Cap refill <2 seconds. No peripheral edema. LOWER EXTREMITIES: 2+ pulses, warm, well-perfused. No calf tenderness. No peripheral edema. NEUROLOGICAL: unable to fully assess due to dementia Active Medications Generic Name Dose Route Start Last Admin Trade Name Freq PRN Reason Stop Dose Admin Acetaminophen 1,000 mg 03/31/17 12:29 Ofirmev Injection - IVPB 03/31/17 12:30 ONCE ONE Amlodipine Besylate 10 mg 03/30/17 10:00 03/30/17 09:13 Norvasc - PO 10 mg DAILY [facility] Administration Arformoterol Tartrate 1 amp 03/29/17 22:00 03/30/17 22:56 Brovana (Restricted To Pulmonology/Resp) - NEB 1 amp BID [facility] Administration Fentanyl 25 mcg 03/31/17 12:36 Sublimaze Injection - IVPUSH [id number] PRN PAIN Finasteride 5 mg 03/30/17 10:00 03/30/17 09:13 Proscar - PO 5 mg DAILY [facility] Administration Heparin Sodium (Porcine) 5,000 unit 03/29/17 22:00 03/30/17 21:36 Heparin - SQ 5,000 unit BID [facility] Administration Dextrose/Sodium Chloride 1,000 mls @ 125 mls/hr 03/31/17 12:30 D5-1/2ns - IV ASDIR [facility] Lactated Ringer's 1,000 mls @ 75 mls/hr 03/31/17 12:45 Lactated Ringers Solution IV ASDIR [facility] Magnesium Oxide 400 mg 03/29/17 22:00 03/30/17 21:36 Mag-Ox - PO 400 mg BID [facility] Administration Metoprolol Tartrate 50 mg 03/29/17 22:00 03/30/17 21:35 Lopressor - PO 50 mg BID [facility] Administration Mirtazapine 15 mg 03/29/17 22:00 03/30/17 21:36 Remeron - PO 15 mg HS [facility] Administration Ondansetron HCl 4 mg 03/31/17 12:36 Zofran Injection IVPUSH Q6H PRN NAUSEA AND/OR VOMITING Oxycodone HCl 5 mg 03/31/17 12:36 Roxicodone - PO 04/01/17 12:35 Q4H PRN MILD PAIN Promethazine HCl 12.5 mg 03/31/17 12:36 Phenergan Injection - IVPUSH Q6H PRN NAUSEA-FOR RESCUE AFTER 15 MIN Tamsulosin HCl 0.4 mg 03/30/17 08:30 03/30/17 08:45 Flomax - PO 0.4 mg DAILY@0830 [facility] Administration ASSESSMENT/PLAN: 81M w/ hx of dementia, BPH w/ chronic vieyra catheter, recent bacteremia with enterococcus and UTI w/ ESBL (12/2016), CVA, COPD, PNA, AAA, HLD, intestinal obstruction, and G-tube for dysphagia who was admitted to undergo TURP for urinary obstruction, now s/p TURP w/ suprapubic catheter. #Ucx -currently growing >100,000 lactose fermenting negative bacilli. Continue to follow Ucx and sensitivities. -afebrile, no leukocytosis -pt has recent hx of bacteremia with enterococcus and UTI w/ ESBL (12/2016) -start ertapenem 1g qd for coverage of ESBL -Obtain Bcx #dementia #hx of CVA #COPD #AAA #HLD Rest per hospitalist team Plan discussed with attending, Dr. Wiley. Dispo: We will continue to follow the patient. Thank you for this consultative opportunity. -Joselo Dill MD PGY1 Visit type - Emergency Visit Emergency Visit: Yes ED Registration Date: 03/29/17 Care time: The patient presented to the Emergency Department on the above date and was hospitalized for further evaluation of their emergent condition. - New Patient This patient is new to me today: Yes Date on this admission: 03/31/17 - Critical Care Critical Care patient: No
[2017-03-31] MEDS: ACETAMINOPHEN 1000 MG/100 ML VIAL (NON FORMULARY) IVPB ONE ×2 (13:15→17:01)
--- NOTE | 2017-03-31 13:44 | OP ---
DATE OF OPERATION: 03/31/2017 PREOPERATIVE DIAGNOSES: Urinary retention and BPH. POSTOPERATIVE DIAGNOSES: Urinary retention and BPH. PROCEDURES: Cystoscopy, bipolar transurethral resection of prostate, and open suprapubic tube placement. ANESTHESIA: Spinal; Abimael Rollins MD FINDINGS: Obstructive prostate tissue. DRAINS: A 22-Bangladeshi Chavarria for the suprapubic tube and a 23-Bangladeshi, 3-way Chavarria catheter for the urethral Chavarria. SPECIMEN: Prostate chips. ESTIMATED BLOOD LOSS: 50 mL. PREOPERATIVE INDICATIONS: The patient is an 81-year-old male who is in urinary retention and has a chronic indwelling Chavarria catheter. He is starting to have some irritation and chronic changes to his penis from the indwelling Chavarria catheter. He was offered a TURP. However, if he is unable to void long-term, he will need a suprapubic tube. This plan was discussed with his and him and they agreed. OPERATION: The patient was brought to the OR, placed on the table in the supine position, given spinal anesthetic, and then placed in the modified lithotomy position. The groin was prepped and draped sterilely, as well as the lower abdomen. Cystoscopy was performed. The urethra appeared to be normal. As the urinary sphincter was visualized, the prostate was obstructive. The bladder itself had trabeculations throughout. No tumors or stones were seen. Both UOs were visualized. Using the bipolar generator and the loop, obstructive prostate tissue was resected from the bladder neck to the verumontanum. Good hemostasis was maintained throughout. A small incision was made just superior to the pubic bone and the in-line muscle and tissues were opened with a Bovie and a clamp. The bladder was visualized. There was no evidence of bowel in the area. A Lowsley retractor was passed through the urethra, pressed up, and was palpated through the incision through the bladder wall. The bladder wall was then perforated and the Lowsley retractor was then brought through the incision. A 22-Bangladeshi Chavarria catheter was then connected to the Lowsley retractor using a suture and then was pulled into the bladder antegrade. The retractor was removed. Using the cystoscope, the placement of the suprapubic tube and its balloon was confirmed. The balloon was inflated. Good drainage was seen through the suprapubic tube. Hemostasis was maintained. The suprapubic tube was then secured to the skin using 2-0 silk sutures which were also used to close the incision. A 3-way Chavarria catheter was placed into the urethra for postoperative irrigation. Clear efflux was noted at this time. The wounds were dressed. The patient was woken up. ALYL GONZALEZ M.D. [id number]
[2017-03-31 13:51] LABS: BASOPHIL 0.7 % (0-2.0); EOSINOPHIL 11.4 % (0-4.5); MCH 25.6 pg (25.7-33.7); MCHC 31.7 g/dl (32.0-35.9); MEAN CELL VOLUME 80.9 fl (80-96); MEAN PLT VOLUME 7.2 fl (7.5-11.1); NEUTROPHILS 46.1 % (42.8-82.8); WHITE BLOOD COUNT 8.6 K/mm3 (4.0-10.0)
[2017-03-31 14:05] LABS: ANION GAP 7 (8-16); CALCIUM 9.6 mg/dL (8.5-10.1); CO2 27 mmol/L (21-32); CREATININE 0.7 mg/dL (0.7-1.3); GLUCOSE,RANDOM 92 mg/dL (74-106)
[2017-03-31 14:38] LABS: PLATELET COUNT 291 K/MM3 (134-434)
--- NOTE | 2017-03-31 14:45 | PN ---
Teaching Attending Note Name of Resident: Joselo Dill ATTENDING PHYSICIAN STATEMENT I saw and evaluated the patient. I reviewed the resident's note and discussed the case with the resident. I agree with the resident's findings and plan as documented. SUBJECTIVE: 81 y/o male PMH BPH/chronic vieyra now admitted for TURP, Suprapubic tube + Urine c/s GNR Hx ESBL OBJECTIVE: Confused No acute distress Afebrile Cor S1S2 Lungs clear Abdo sl distended, non tender + GT + SPT ASSESSMENT AND PLAN: Obstructive uropathy UTI Pending c/s perioperative ertapenem
[2017-03-31] MEDS ORDERED: ERTAPENEM SODIUM 1 GM in SODIUM CHLORIDE 50 ML IVPB SCH (15:00)
[2017-03-31] MEDS: MAGNESIUM OXIDE 400 MG TABLET (FP) PO SCH ×2 (15:31→21:04)
[2017-03-31] MEDS: TAMSULOSIN HCL 0.4 MG CAP.ER.24H (FP) PO SCH ×2 (15:31→16:16)
[2017-03-31] MEDS: METOPROLOL TARTRATE 50 MG TABLET (FP) PO SCH ×2 (15:31→21:03)
[2017-03-31] MEDS: ARFORMOTEROL TARTRATE 15 MCG/2 ML VIAL NEB SCH ×2 (16:07→22:16)
[2017-03-31] MEDS: FINASTERIDE 5 MG TABLET (FP) PO SCH (16:16)
[2017-03-31] MEDS: amLODIPine BESYLATE 10 MG TABLET (FP) PO SCH (16:16)
[2017-03-31] MEDS ORDERED: CEFAZOLIN 1 GM PUSH 1 GM/10 ML DISP.SYRIN IVPUSH SCH (18:00)
[2017-03-31] MEDS: MIRTAZAPINE 15 MG TABLET (FP) PO SCH (21:03)
--- NOTE | 2017-04-01 07:51 | PN ---
Progress Note (short form) - Note Progress Note: POD#1 TURP Afebrile VSS patient reports no pain. abdomen is S/NT/ND SPT is draining clear as well as vieyra on slow CBI Imp- S/P TURP and S/P tube placement stop CBI and urethral vieyra tomorrow AM dischrage planning. Problem List - Problems (1) Benign localized hyperplasia of prostate with urinary obstruction Code(s): N40.1 - BENIGN PROSTATIC HYPERPLASIA WITH LOWER URINARY TRACT SYMP; N13.8 - OTHER OBSTRUCTIVE AND REFLUX UROPATHY
--- NOTE | 2017-04-01 08:14 | PN ---
Progress Note, Physician History of Present Illness: Awake and responsive No complaints Denies abdominal pain No fever/ chills WBC WNL Urine c/s Klebsiella (s) ceftriaxone BC no growth - Current Medication List Current Medications: Active Medications Amlodipine Besylate (Norvasc -) 10 mg PO DAILY [facility] Last Admin: 03/31/17 16:16 Dose: 10 mg Arformoterol Tartrate (Brovana (Restricted To Pulmonology/Resp) -) 1 amp NEB BID [facility] Last Admin: 03/31/17 22:16 Dose: 1 amp Finasteride (Proscar -) 5 mg PO DAILY [facility] Last Admin: 03/31/17 16:16 Dose: 5 mg Heparin Sodium (Porcine) (Heparin -) 5,000 unit SQ BID [facility] Last Admin: 03/30/17 21:36 Dose: 5,000 unit Magnesium Oxide (Mag-Ox -) 400 mg PO BID [facility] Last Admin: 03/31/17 21:04 Dose: 400 mg Metoprolol Tartrate (Lopressor -) 50 mg PO BID [facility] Last Admin: 03/31/17 21:03 Dose: 50 mg Mirtazapine (Remeron -) 15 mg PO [facility] Last Admin: 03/31/17 21:03 Dose: 15 mg Ondansetron HCl (Zofran Injection) 4 mg IVPUSH Q6H PRN PRN Reason: NAUSEA AND/OR VOMITING Oxycodone HCl (Roxicodone -) 5 mg PO Q4H PRN PRN Reason: MILD PAIN Stop: 04/01/17 12:35 Last Admin: 04/01/17 00:58 Dose: 5 mg Promethazine HCl (Phenergan Injection -) 12.5 mg IVPUSH Q6H PRN PRN Reason: NAUSEA-FOR RESCUE AFTER 15 MIN Tamsulosin HCl (Flomax -) 0.4 mg PO DAILY@0830 [facility] Last Admin: 03/31/17 16:16 Dose: 0.4 mg - Objective Vital Signs: Vital Signs Temperature 98.7 F 04/01/17 07:53 Pulse Rate 76 04/01/17 07:53 Respiratory Rate 20 04/01/17 07:53 Blood Pressure 144/73 04/01/17 07:53 O2 Sat by Pulse Oximetry (%) 95 03/31/17 14:30 Constitutional: Yes: No Distress Eyes: Yes: Conjunctiva Clear Cardiovascular: Yes: Regular Rate and Rhythm, S1 Respiratory: Yes: CTA Bilaterally Gastrointestinal: Yes: Normal Bowel Sounds, Soft, Other (slightly distended + GT , + suprapubic catheter). No: Tenderness Edema: No Labs: INR, PTT INR 1.04 (0.82-1.09) 03/29/17 14:55 Assessment/Plan Klebsiella UTI Obstructive uropathy S/P TURP, Suprapubic tube OBS Substitute ceftriaxone Switch to po am
[2017-04-01 08:26] LABS: ALBUMIN 2.9 g/dl (3.4-5.0); ALK PHOS 100 U/L (45-117); ANION GAP 9 (8-16); BASOPHIL 0.3 % (0-2.0); BILIRUBIN,TOTAL 0.7 mg/dL (0.2-1.0); CALCIUM 9.3 mg/dL (8.5-10.1); CO2 28 mmol/L (21-32); CREATININE 0.6 mg/dL (0.7-1.3); EOSINOPHIL 0.3 % (0-4.5); GLUCOSE,RANDOM 91 mg/dL (74-106); MCH 26.2 pg (25.7-33.7); MCHC 32.7 g/dl (32.0-35.9); MEAN CELL VOLUME 80.1 fl (80-96); MEAN PLT VOLUME 7.1 fl (7.5-11.1); NEUTROPHILS 84.6 % (42.8-82.8); PLATELET COUNT 325 K/MM3 (134-434); RDW 17.2 % (11.9-15.9); SGOT/AST 12 U/L (15-37); SGPT/ALT 15 U/L (12-78); TOT PROT 7.2 g/dl (6.4-8.2); WHITE BLOOD COUNT 15.9 K/mm3 (4.0-10.0)
[2017-04-01] MEDS: CEFTRIAXONE 1 G/50 ML PREMIX 50 ML IVPB SCH (09:31)
[2017-04-01] MEDS: TAMSULOSIN HCL 0.4 MG CAP.ER.24H (FP) PO SCH (09:31)
[2017-04-01] MEDS: HEPARIN NA (PORCINE) 5,000 UNITS/ML 1ML VIAL SQ SCH ×2 (09:36→22:18)
[2017-04-01] MEDS: METOPROLOL TARTRATE 50 MG TABLET (FP) PO SCH ×2 (09:37→22:17)
[2017-04-01] MEDS: MAGNESIUM OXIDE 400 MG TABLET (FP) PO SCH ×2 (09:37→22:17)
[2017-04-01] MEDS: FINASTERIDE 5 MG TABLET (FP) PO SCH (09:37)
[2017-04-01] MEDS: amLODIPine BESYLATE 10 MG TABLET (FP) PO SCH (09:37)
--- NOTE | 2017-04-01 09:46 | PN ---
Progress Note, Physician Chief Complaint: Cardiology for Dane No chest pain or SOB - Current Medication List Current Medications: Active Medications Amlodipine Besylate (Norvasc -) 10 mg PO DAILY [facility] Last Admin: 04/01/17 09:37 Dose: 10 mg Arformoterol Tartrate (Brovana (Restricted To Pulmonology/Resp) -) 1 amp NEB BID [facility] Last Admin: 03/31/17 22:16 Dose: 1 amp Finasteride (Proscar -) 5 mg PO DAILY [facility] Last Admin: 04/01/17 09:37 Dose: 5 mg Heparin Sodium (Porcine) (Heparin -) 5,000 unit SQ BID [facility] Last Admin: 04/01/17 09:36 Dose: 5,000 unit CEFTRIAXONE 1 G/50 ML PREMIX (Ceftriaxone 1 Gm-D5w Bag) 50 mls @ 100 mls/hr IVPB DAILY [facility] Last Admin: 04/01/17 09:31 Dose: 100 mls/hr Magnesium Oxide (Mag-Ox -) 400 mg PO BID [facility] Last Admin: 04/01/17 09:37 Dose: 400 mg Metoprolol Tartrate (Lopressor -) 50 mg PO BID [facility] Last Admin: 04/01/17 09:37 Dose: 50 mg Mirtazapine (Remeron -) 15 mg PO HS [facility] Last Admin: 03/31/17 21:03 Dose: 15 mg Ondansetron HCl (Zofran Injection) 4 mg IVPUSH Q6H PRN PRN Reason: NAUSEA AND/OR VOMITING Oxycodone HCl (Roxicodone -) 5 mg PO Q4H PRN PRN Reason: MILD PAIN Stop: 04/01/17 12:35 Last Admin: 04/01/17 00:58 Dose: 5 mg Promethazine HCl (Phenergan Injection -) 12.5 mg IVPUSH Q6H PRN PRN Reason: NAUSEA-FOR RESCUE AFTER 15 MIN Tamsulosin HCl (Flomax -) 0.4 mg PO DAILY@0830 [facility] Last Admin: 04/01/17 09:31 Dose: 0.4 mg - Objective Vital Signs: Vital Signs Temperature 98.7 F 04/01/17 07:53 Pulse Rate 76 04/01/17 07:53 Respiratory Rate 20 04/01/17 07:53 Blood Pressure 144/73 04/01/17 07:53 O2 Sat by Pulse Oximetry (%) 95 03/31/17 14:30 Constitutional: Yes: No Distress, Calm Cardiovascular: Yes: Regular Rate and Rhythm Respiratory: Yes: CTA Bilaterally Gastrointestinal: Yes: Soft Genitourinary: Yes: Other (vieyra with clear drainage) Edema: No Neurological: Yes: Alert, Oriented ...Motor Strength: WNL Labs: CBC, BMP 04/01/17 06:30 04/01/17 06:30 INR, PTT INR 1.04 (0.82-1.09) 03/29/17 14:55 Assessment/Plan Assessment/Plan POD #1, TURP ASHD s/p PCI [id number] 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 restart ASA 81mg Further plan/disp as per PMD and Coverage for [facility]
[2017-04-01] MEDS: ASPIRIN 81 MG CHEWABLE TABLETS PO SCH (10:23)
--- NOTE | 2017-04-01 10:24 | PN ---
Progress Note, Physician Chief Complaint: s/p TURP CBI in suprapubic tube in UTI on IV ATB per ID occasional suprapubic pain; hematuria clearing - Current Medication List Current Medications: Active Medications Amlodipine Besylate (Norvasc -) 10 mg PO DAILY [facility] Last Admin: 04/01/17 09:37 Dose: 10 mg Arformoterol Tartrate (Brovana (Restricted To Pulmonology/Resp) -) 1 amp NEB BID [facility] Last Admin: 03/31/17 22:16 Dose: 1 amp Aspirin (Asa -) 81 mg PO DAILY [facility] Last Admin: 04/01/17 10:23 Dose: 81 mg Finasteride (Proscar -) 5 mg PO DAILY [facility] Last Admin: 04/01/17 09:37 Dose: 5 mg Heparin Sodium (Porcine) (Heparin -) 5,000 unit SQ BID [facility] Last Admin: 04/01/17 09:36 Dose: 5,000 unit CEFTRIAXONE 1 G/50 ML PREMIX (Ceftriaxone 1 Gm-D5w Bag) 50 mls @ 100 mls/hr IVPB DAILY [facility] Last Admin: 04/01/17 09:31 Dose: 100 mls/hr Magnesium Oxide (Mag-Ox -) 400 mg PO BID [facility] Last Admin: 04/01/17 09:37 Dose: 400 mg Metoprolol Tartrate (Lopressor -) 50 mg PO BID [facility] Last Admin: 04/01/17 09:37 Dose: 50 mg Mirtazapine (Remeron -) 15 mg PO HS [facility] Last Admin: 03/31/17 21:03 Dose: 15 mg Ondansetron HCl (Zofran Injection) 4 mg IVPUSH Q6H PRN PRN Reason: NAUSEA AND/OR VOMITING Oxycodone HCl (Roxicodone -) 5 mg PO Q4H PRN PRN Reason: MILD PAIN Stop: 04/01/17 12:35 Last Admin: 04/01/17 00:58 Dose: 5 mg Promethazine HCl (Phenergan Injection -) 12.5 mg IVPUSH Q6H PRN PRN Reason: NAUSEA-FOR RESCUE AFTER 15 MIN Tamsulosin HCl (Flomax -) 0.4 mg PO DAILY@0830 [facility] Last Admin: 04/01/17 09:31 Dose: 0.4 mg - Objective Vital Signs: Vital Signs Temperature 98.7 F 04/01/17 07:53 Pulse Rate 76 04/01/17 07:53 Respiratory Rate 20 04/01/17 07:53 Blood Pressure 144/73 04/01/17 07:53 O2 Sat by Pulse Oximetry (%) 95 03/31/17 14:30 Constitutional: Yes: No Distress, Calm Eyes: Yes: Conjunctiva Clear HENT: Yes: Atraumatic Neck: Yes: Supple Cardiovascular: Yes: Regular Rate and Rhythm Respiratory: Yes: CTA Bilaterally Gastrointestinal: Yes: Soft. No: Distention, Tenderness Genitourinary: Yes: Hematuria Musculoskeletal: No: Joint Stiffness, Joint Swelling Extremities: No: Cold, Cool, Cyanosis Edema: No Integumentary: No: Pressure Ulcer, Rash, Venous Stasis Changes Neurological: Yes: WNL, Alert ...Motor Strength: WNL Psychiatric: Yes: WNL, Alert. No: Agitated, Suicidal Ideation Labs: CBC, BMP 04/01/17 06:30 04/01/17 06:30 INR, PTT INR 1.04 (0.82-1.09) 03/29/17 14:55 - ....Imaging Other: Report Reviewed Assessment/Plan Patient is an 81 year old male with PMHx of dementia, BPH, CVA, COPD, PNA, AAA, HLD, intestinal obstruction, G-tube for dysphagia; has chronic vieyra catheter for urinary obstruction sec to BPH; UTI s/p TURP has CBI and suprapubic in ID eval for UTI h/o enterococcus and ESBL GI f/u to see if possible to remove PEG; pt is eating po OK and takes his meds po advance diet as tolerated falls decubs DVT pfx d/w pt and staff.
[2017-04-01] MEDS: ARFORMOTEROL TARTRATE 15 MCG/2 ML VIAL NEB SCH ×2 (13:30→21:37)
[2017-04-01] MEDS ORDERED: oxyCODONE HCL 5 MG TABLET PO PRN (15:08)
[2017-04-01] MEDS: MIRTAZAPINE 15 MG TABLET (FP) PO SCH (22:18)
--- NOTE | 2017-04-02 06:46 | PN ---
Progress Note, Physician Chief Complaint: in bed awake alert VSS afebrile no new c/o; CBI DCd; suprapubic to be in per for 2-3 weeks pt ate well all breakfast and took all pills po, f/u with GI for possible PEG removal - Current Medication List Current Medications: Active Medications Amlodipine Besylate (Norvasc -) 10 mg PO DAILY [facility] Last Admin: 04/01/17 09:37 Dose: 10 mg Arformoterol Tartrate (Brovana (Restricted To Pulmonology/Resp) -) 1 amp NEB BID [facility] Last Admin: 04/01/17 21:37 Dose: 1 amp Aspirin (Asa -) 81 mg PO DAILY [facility] Last Admin: 04/01/17 10:23 Dose: 81 mg Finasteride (Proscar -) 5 mg PO DAILY [facility] Last Admin: 04/01/17 09:37 Dose: 5 mg Heparin Sodium (Porcine) (Heparin -) 5,000 unit SQ BID [facility] Last Admin: 04/01/17 22:18 Dose: 5,000 unit CEFTRIAXONE 1 G/50 ML PREMIX (Ceftriaxone 1 Gm-D5w Bag) 50 mls @ 100 mls/hr IVPB DAILY [facility] Last Admin: 04/01/17 09:31 Dose: 100 mls/hr Magnesium Oxide (Mag-Ox -) 400 mg PO BID [facility] Last Admin: 04/01/17 22:17 Dose: 400 mg Metoprolol Tartrate (Lopressor -) 50 mg PO BID [facility] Last Admin: 04/01/17 22:17 Dose: 50 mg Mirtazapine (Remeron -) 15 mg PO HS [facility] Last Admin: 04/01/17 22:18 Dose: 15 mg Ondansetron HCl (Zofran Injection) 4 mg IVPUSH Q6H PRN PRN Reason: NAUSEA AND/OR VOMITING Oxycodone HCl (Roxicodone -) 5 mg PO Q8H PRN PRN Reason: PAIN Promethazine HCl (Phenergan Injection -) 12.5 mg IVPUSH Q6H PRN PRN Reason: NAUSEA-FOR RESCUE AFTER 15 MIN Tamsulosin HCl (Flomax -) 0.4 mg PO DAILY@0830 [facility] Last Admin: 04/01/17 09:31 Dose: 0.4 mg - Objective Vital Signs: Vital Signs Temperature 98.9 F 04/01/17 22:16 Pulse Rate 105 H 04/01/17 22:16 Respiratory Rate 20 04/01/17 22:16 Blood Pressure 149/80 04/01/17 22:16 O2 Sat by Pulse Oximetry (%) 96 04/01/17 21:00 Constitutional: Yes: No Distress, Calm Eyes: Yes: Conjunctiva Clear HENT: Yes: Atraumatic Neck: Yes: Supple Cardiovascular: Yes: Regular Rate and Rhythm Respiratory: Yes: CTA Bilaterally Gastrointestinal: Yes: Soft. No: Distention, Tenderness Genitourinary: No: CVA Tenderness - Left, CVA Tenderness - Right Musculoskeletal: No: Joint Stiffness, Joint Swelling Extremities: No: Cold, Cool, Cyanosis Edema: No Integumentary: No: Pressure Ulcer, Rash, Venous Stasis Changes Neurological: Yes: WNL, Alert ...Motor Strength: WNL Psychiatric: Yes: WNL, Alert. No: Oriented, Agitated Labs: CBC, BMP 04/01/17 06:30 04/01/17 06:30 INR, PTT INR 1.04 (0.82-1.09) 03/29/17 14:55 - ....Imaging Other: Report Reviewed Assessment/Plan Patient is an 81 year old male with PMHx of dementia, BPH, CVA, COPD, PNA, AAA, HLD, intestinal obstruction, G-tube for dysphagia; s/p TURP for urinary obstruction sec to BPH; UTI suprapubic in ATN per ID for UTI h/o enterococcus and ESBL GI f/u to see if possible to remove PEG; pt is eating po OK and takes his meds po advance diet as tolerated will need f/u outpt falls decubs DVT pfx d/w pt and staff. d/w comp field case manager; pt needs help with walking and should go back to SNF for PT rehab but per CM he exhausetd all PT rehab days for this year; pt's advised to apply for medicaid; further DC planning per CM and PT
--- NOTE | 2017-04-02 07:13 | PN ---
Progress Note, Physician Chief Complaint: S/P TURP UNDER SPINAL ANESTHESIA History of Present Illness: POST OP DAY ONE - Current Medication List Current Medications: Active Medications Amlodipine Besylate (Norvasc -) 10 mg PO DAILY [facility] Last Admin: 04/01/17 09:37 Dose: 10 mg Arformoterol Tartrate (Brovana (Restricted To Pulmonology/Resp) -) 1 amp NEB BID [facility] Last Admin: 04/01/17 21:37 Dose: 1 amp Aspirin (Asa -) 81 mg PO DAILY [facility] Last Admin: 04/01/17 10:23 Dose: 81 mg Finasteride (Proscar -) 5 mg PO DAILY [facility] Last Admin: 04/01/17 09:37 Dose: 5 mg Heparin Sodium (Porcine) (Heparin -) 5,000 unit SQ BID [facility] Last Admin: 04/01/17 22:18 Dose: 5,000 unit CEFTRIAXONE 1 G/50 ML PREMIX (Ceftriaxone 1 Gm-D5w Bag) 50 mls @ 100 mls/hr IVPB DAILY [facility] Last Admin: 04/01/17 09:31 Dose: 100 mls/hr Magnesium Oxide (Mag-Ox -) 400 mg PO BID [facility] Last Admin: 04/01/17 22:17 Dose: 400 mg Metoprolol Tartrate (Lopressor -) 50 mg PO BID [facility] Last Admin: 04/01/17 22:17 Dose: 50 mg Mirtazapine (Remeron -) 15 mg PO HS [facility] Last Admin: 04/01/17 22:18 Dose: 15 mg Ondansetron HCl (Zofran Injection) 4 mg IVPUSH Q6H PRN PRN Reason: NAUSEA AND/OR VOMITING Oxycodone HCl (Roxicodone -) 5 mg PO Q8H PRN PRN Reason: PAIN Promethazine HCl (Phenergan Injection -) 12.5 mg IVPUSH Q6H PRN PRN Reason: NAUSEA-FOR RESCUE AFTER 15 MIN Tamsulosin HCl (Flomax -) 0.4 mg PO DAILY@0830 [facility] Last Admin: 04/01/17 09:31 Dose: 0.4 mg - Objective Vital Signs: Vital Signs Temperature 98.9 F 04/01/17 22:16 Pulse Rate 105 H 04/01/17 22:16 Respiratory Rate 20 04/01/17 22:16 Blood Pressure 149/80 04/01/17 22:16 O2 Sat by Pulse Oximetry (%) 96 04/01/17 21:00 Constitutional: Yes: Well Nourished Cardiovascular: Yes: WNL Respiratory: Yes: WNL Gastrointestinal: Yes: WNL Neurological: Yes: WNL Labs: CBC, BMP 04/01/17 06:30 04/01/17 06:30 INR, PTT INR 1.04 (0.82-1.09) 03/29/17 14:55 Assessment/Plan NO ADVERSE EFFECT OF ANESTHETIC, PAIN CONTROLLED, DEPT OF ANESTHESIA WILL SIGN OFF CARE AT THIS TIME
[2017-04-02 07:49] LABS: BASOPHIL 0.4 % (0-2.0); EOSINOPHIL 1.5 % (0-4.5); MCHC 32.4 g/dl (32.0-35.9); MEAN CELL VOLUME 80.2 fl (80-96); MEAN PLT VOLUME 7.3 fl (7.5-11.1); NEUTROPHILS 68.3 % (42.8-82.8); PLATELET COUNT 314 K/MM3 (134-434); RDW 17.5 % (11.9-15.9); WHITE BLOOD COUNT 12.4 K/mm3 (4.0-10.0)
[2017-04-02 08:29] LABS: ANION GAP 7 (8-16); CALCIUM 9.4 mg/dL (8.5-10.1); CO2 29 mmol/L (21-32); CREATININE 0.8 mg/dL (0.7-1.3); GLUCOSE,RANDOM 105 mg/dL (74-106)
[2017-04-02] MEDS: TAMSULOSIN HCL 0.4 MG CAP.ER.24H (FP) PO SCH (08:34)
[2017-04-02] MEDS: CEFTRIAXONE 1 G/50 ML PREMIX 50 ML IVPB SCH (09:34)
[2017-04-02] MEDS: MAGNESIUM OXIDE 400 MG TABLET (FP) PO SCH ×2 (09:34→21:10)
[2017-04-02] MEDS: amLODIPine BESYLATE 10 MG TABLET (FP) PO SCH (09:34)
[2017-04-02] MEDS: FINASTERIDE 5 MG TABLET (FP) PO SCH (09:34)
[2017-04-02] MEDS: METOPROLOL TARTRATE 50 MG TABLET (FP) PO SCH ×2 (09:34→21:10)
[2017-04-02] MEDS: ASPIRIN 81 MG CHEWABLE TABLETS PO SCH (09:34)
[2017-04-02] MEDS: HEPARIN NA (PORCINE) 5,000 UNITS/ML 1ML VIAL SQ SCH ×2 (09:34→21:10)
[2017-04-02] MEDS: ARFORMOTEROL TARTRATE 15 MCG/2 ML VIAL NEB SCH ×2 (10:15→22:30)
--- NOTE | 2017-04-02 13:16 | PN ---
Progress Note, Physician History of Present Illness: Awake and responsive No complaints Chavarria catheter removed Denies abdominal pain No fever/ chills WBC improved Urine c/s Klebsiella (s) ceftriaxone BC no growth - Current Medication List Current Medications: Active Medications Amlodipine Besylate (Norvasc -) 10 mg PO DAILY [facility] Last Admin: 04/02/17 09:34 Dose: 10 mg Arformoterol Tartrate (Brovana (Restricted To Pulmonology/Resp) -) 1 amp NEB BID [facility] Last Admin: 04/02/17 10:15 Dose: 1 amp Aspirin (Asa -) 81 mg PO DAILY [facility] Last Admin: 04/02/17 09:34 Dose: 81 mg Finasteride (Proscar -) 5 mg PO DAILY [facility] Last Admin: 04/02/17 09:34 Dose: 5 mg Heparin Sodium (Porcine) (Heparin -) 5,000 unit SQ BID [facility] Last Admin: 04/02/17 09:34 Dose: 5,000 unit CEFTRIAXONE 1 G/50 ML PREMIX (Ceftriaxone 1 Gm-D5w Bag) 50 mls @ 100 mls/hr IVPB DAILY [facility] Last Admin: 04/02/17 09:34 Dose: 100 mls/hr Magnesium Oxide (Mag-Ox -) 400 mg PO BID [facility] Last Admin: 04/02/17 09:34 Dose: 400 mg Metoprolol Tartrate (Lopressor -) 50 mg PO BID [facility] Last Admin: 04/02/17 09:34 Dose: 50 mg Mirtazapine (Remeron -) 15 mg PO HS [facility] Last Admin: 04/01/17 22:18 Dose: 15 mg Ondansetron HCl (Zofran Injection) 4 mg IVPUSH Q6H PRN PRN Reason: NAUSEA AND/OR VOMITING Oxycodone HCl (Roxicodone -) 5 mg PO Q8H PRN PRN Reason: PAIN Promethazine HCl (Phenergan Injection -) 12.5 mg IVPUSH Q6H PRN PRN Reason: NAUSEA-FOR RESCUE AFTER 15 MIN Tamsulosin HCl (Flomax -) 0.4 mg PO DAILY@0830 [facility] Last Admin: 04/02/17 08:34 Dose: 0.4 mg - Objective Vital Signs: Vital Signs Temperature 98.9 F 04/01/17 22:16 Pulse Rate 78 04/02/17 11:23 Respiratory Rate 20 04/01/17 22:16 Blood Pressure 149/80 04/01/17 22:16 O2 Sat by Pulse Oximetry (%) 91 L 04/02/17 11:23 Constitutional: Yes: No Distress Eyes: Yes: Conjunctiva Clear Cardiovascular: Yes: Regular Rate and Rhythm, S1, S2 Respiratory: Yes: CTA Bilaterally Gastrointestinal: Yes: Normal Bowel Sounds, Soft. No: Tenderness Genitourinary: Yes: Other (+ suprapubic tube) Edema: No Labs: CBC, BMP 04/02/17 07:23 04/02/17 07:23 INR, PTT INR 1.04 (0.82-1.09) 03/29/17 14:55 Assessment/Plan Klebsiella UTI Obstructive uropathy S/P TURP, Suprapubic tube OBS Substitute po Keflex 500mg bid x 7d
--- NOTE | 2017-04-02 15:13 | PN ---
Progress Note (short form) - Note Progress Note: gastroenterology follow up note for Dr Holliday CTSP to remove GT apparently patient is eating without problems pt appears confused but in no distress abdomen is soft and good BS/+ at bedside in usual fashion via gentle abcdominal counter-traction, I have easily removed the internal GT mushroom No blood or leakage of enteric contents noted Pt tolerated removal quite well recc: Apply a clean 4X4 to gastrostomy tube site BID until site closure this may take 7-10 days and it will be expected that the food he eats, leaks out of the site until it is closed MD rashmi
--- NOTE | 2017-04-02 15:57 | PN ---
Progress Note, RN ADMISSIONS - Note Progress Note: Selected Entries 03/31/17 03/31/17 03/31/17 06:00 08:24 12:33 Breakfast Lunch Supper Temperature 98.6 F 98.1 F 97.4 F L 03/31/17 03/31/17 03/31/17 14:30 15:29 18:00 Breakfast Lunch Supper 50% Temperature 97.4 F L 98.4 F 98.5 F 03/31/17 04/01/17 04/01/17 23:01 07:53 10:00 Breakfast 25% Lunch Supper Temperature 98.2 F 98.7 F 04/01/17 04/01/17 04/01/17 15:42 18:28 22:00 Breakfast Lunch 25% Supper 75% Temperature 98.5 F 99 F 04/01/17 04/02/17 22:16 10:00 Breakfast 25% Lunch Supper Temperature 98.9 F Laboratory Tests 03/31/17 04/01/17 04/02/17 13:25 06:30 07:23 WBC 8.6 15.9 H D 12.4 H Selected Entries 04/02/17 16:00 Lunch 50% Klebsiella UTI Obstructive uropathy S/P TURP, Suprapubic tube PEG removed. Pt's reports he has some diificulty if food is hard to chew eg Chicken parm Provide soft to chew, solid food. Monitor for sufficient PO intake. May need PO supplement b/n meals to maintain caloric intake. RD consult.
[2017-04-02] MEDS: MIRTAZAPINE 15 MG TABLET (FP) PO SCH (21:10)
[2017-04-02] MEDS: CEPHALEXIN MONOHYDRATE 500 MG CAPSULE (UD) PO SCH (21:10)
[2017-04-03 07:32] LABS: EOSINOPHIL 6.1 % (0-4.5); MCH 26.5 pg (25.7-33.7); MCHC 33.1 g/dl (32.0-35.9); MEAN PLT VOLUME 7.3 fl (7.5-11.1); NEUTROPHILS 57.1 % (42.8-82.8); PLATELET COUNT 314 K/MM3 (134-434); RDW 16.7 % (11.9-15.9); WHITE BLOOD COUNT 9.4 K/mm3 (4.0-10.0)
[2017-04-03 08:20] LABS: ALBUMIN 2.7 g/dl (3.4-5.0); ALK PHOS 92 U/L (45-117); ANION GAP 8 (8-16); BILIRUBIN,TOTAL 0.4 mg/dL (0.2-1.0); CALCIUM 9.5 mg/dL (8.5-10.1); CO2 27 mmol/L (21-32); CREATININE 0.7 mg/dL (0.7-1.3); GLUCOSE,RANDOM 103 mg/dL (74-106); SGOT/AST 16 U/L (15-37); SGPT/ALT 16 U/L (12-78); TOT PROT 7.1 g/dl (6.4-8.2)
[2017-04-03] MEDS: TAMSULOSIN HCL 0.4 MG CAP.ER.24H (FP) PO SCH (08:39)
[2017-04-03] MEDS: CEPHALEXIN MONOHYDRATE 500 MG CAPSULE (UD) PO SCH ×2 (09:42→22:29)
[2017-04-03] MEDS: ASPIRIN 81 MG CHEWABLE TABLETS PO SCH (09:42)
[2017-04-03] MEDS: HEPARIN NA (PORCINE) 5,000 UNITS/ML 1ML VIAL SQ SCH ×2 (09:42→22:29)
[2017-04-03] MEDS: amLODIPine BESYLATE 10 MG TABLET (FP) PO SCH (09:42)
[2017-04-03] MEDS: MAGNESIUM OXIDE 400 MG TABLET (FP) PO SCH ×2 (09:42→22:29)
[2017-04-03] MEDS: FINASTERIDE 5 MG TABLET (FP) PO SCH (09:42)
[2017-04-03] MEDS: METOPROLOL TARTRATE 50 MG TABLET (FP) PO SCH ×2 (09:42→22:29)
--- NOTE | 2017-04-03 09:46 | PN ---
Progress Note, Physician Chief Complaint: s/p peg removal; pt eats well and took his meds no c/o doing well; did not get OOB - Current Medication List Current Medications: Active Medications Amlodipine Besylate (Norvasc -) 10 mg PO DAILY [facility] Last Admin: 04/03/17 09:42 Dose: 10 mg Arformoterol Tartrate (Brovana (Restricted To Pulmonology/Resp) -) 1 amp NEB BID [facility] Last Admin: 04/02/17 22:30 Dose: 1 amp Aspirin (Asa -) 81 mg PO DAILY [facility] Last Admin: 04/03/17 09:42 Dose: 81 mg Cephalexin HCl (Keflex -) 500 mg PO BID [facility] Last Admin: 04/03/17 09:42 Dose: 500 mg Finasteride (Proscar -) 5 mg PO DAILY [facility] Last Admin: 04/03/17 09:42 Dose: 5 mg Heparin Sodium (Porcine) (Heparin -) 5,000 unit SQ BID [facility] Last Admin: 04/03/17 09:42 Dose: 5,000 unit Magnesium Oxide (Mag-Ox -) 400 mg PO BID [facility] Last Admin: 04/03/17 09:42 Dose: 400 mg Metoprolol Tartrate (Lopressor -) 50 mg PO BID [facility] Last Admin: 04/03/17 09:42 Dose: 50 mg Mirtazapine (Remeron -) 15 mg PO HS [facility] Last Admin: 04/02/17 21:10 Dose: 15 mg Ondansetron HCl (Zofran Injection) 4 mg IVPUSH Q6H PRN PRN Reason: NAUSEA AND/OR VOMITING Oxycodone HCl (Roxicodone -) 5 mg PO Q8H PRN PRN Reason: PAIN Last Admin: 04/02/17 15:42 Dose: 5 mg Promethazine HCl (Phenergan Injection -) 12.5 mg IVPUSH Q6H PRN PRN Reason: NAUSEA-FOR RESCUE AFTER 15 MIN Tamsulosin HCl (Flomax -) 0.4 mg PO DAILY@0830 [facility] Last Admin: 04/03/17 08:39 Dose: 0.4 mg - Objective Vital Signs: Vital Signs Temperature 98.1 F 04/03/17 06:00 Pulse Rate 80 04/03/17 06:00 Respiratory Rate 20 04/03/17 06:00 Blood Pressure 132/76 04/03/17 06:00 O2 Sat by Pulse Oximetry (%) 98 04/02/17 21:00 Constitutional: Yes: No Distress, Calm Eyes: Yes: Conjunctiva Clear HENT: Yes: Atraumatic Neck: Yes: Supple Cardiovascular: Yes: Regular Rate and Rhythm Respiratory: Yes: CTA Bilaterally Gastrointestinal: Yes: Soft. No: Tenderness Genitourinary: Yes: Other (suprapubic cath clearing hematuria). No: CVA Tenderness - Left, CVA Tenderness - Right Musculoskeletal: No: Joint Stiffness, Joint Swelling Extremities: No: Cold, Cool, Cyanosis Edema: No Integumentary: No: Rash, Venous Stasis Changes Neurological: Yes: WNL, Alert, Oriented ...Motor Strength: WNL Psychiatric: Yes: WNL, Alert, Oriented. No: Agitated, Suicidal Ideation Labs: CBC, BMP 04/03/17 06:00 04/03/17 06:00 INR, PTT INR 1.04 (0.82-1.09) 03/29/17 14:55 - ....Imaging Other: Report Reviewed Assessment/Plan Patient is an 81 year old male with PMHx of dementia, BPH, CVA, COPD, PNA, AAA, HLD, intestinal obstruction, G-tube for dysphagia; s/p TURP for urinary obstruction sec to BPH; UTI suprapubic cath; Chavarria removed ATB per ID for UTI h/o enterococcus and ESBL peg removed; pt is eating po OK and takes his meds po advance diet as tolerated will need and GI f/u outpt falls decubs DVT pfx d/w pt and staff. PT rehab eval.
[2017-04-03] MEDS: ARFORMOTEROL TARTRATE 15 MCG/2 ML VIAL NEB SCH ×2 (10:20→22:07)
[2017-04-03] MEDS: MIRTAZAPINE 15 MG TABLET (FP) PO SCH (22:29)
--- NOTE | 2017-04-04 08:12 | PN ---
Progress Note, Physician Chief Complaint: in bed no c/o ate well; still did nopt get OOB no pain no bleed - Current Medication List Current Medications: Active Medications Amlodipine Besylate (Norvasc -) 10 mg PO DAILY [facility] Last Admin: 04/03/17 09:42 Dose: 10 mg Arformoterol Tartrate (Brovana (Restricted To Pulmonology/Resp) -) 1 amp NEB BID [facility] Last Admin: 04/03/17 22:07 Dose: Not Given Aspirin (Asa -) 81 mg PO DAILY [facility] Last Admin: 04/03/17 09:42 Dose: 81 mg Cephalexin HCl (Keflex -) 500 mg PO BID [facility] Last Admin: 04/03/17 22:29 Dose: 500 mg Finasteride (Proscar -) 5 mg PO DAILY [facility] Last Admin: 04/03/17 09:42 Dose: 5 mg Heparin Sodium (Porcine) (Heparin -) 5,000 unit SQ BID [facility] Last Admin: 04/03/17 22:29 Dose: 5,000 unit Magnesium Oxide (Mag-Ox -) 400 mg PO BID [facility] Last Admin: 04/03/17 22:29 Dose: 400 mg Metoprolol Tartrate (Lopressor -) 50 mg PO BID [facility] Last Admin: 04/03/17 22:29 Dose: 50 mg Mirtazapine (Remeron -) 15 mg PO HS [facility] Last Admin: 04/03/17 22:29 Dose: 15 mg Ondansetron HCl (Zofran Injection) 4 mg IVPUSH Q6H PRN PRN Reason: NAUSEA AND/OR VOMITING Oxycodone HCl (Roxicodone -) 5 mg PO Q8H PRN PRN Reason: PAIN Last Admin: 04/02/17 15:42 Dose: 5 mg Promethazine HCl (Phenergan Injection -) 12.5 mg IVPUSH Q6H PRN PRN Reason: NAUSEA-FOR RESCUE AFTER 15 MIN Tamsulosin HCl (Flomax -) 0.4 mg PO DAILY@0830 [facility] Last Admin: 04/03/17 08:39 Dose: 0.4 mg - Objective Vital Signs: Vital Signs Temperature 98.4 F 04/04/17 06:00 Pulse Rate 65 04/04/17 06:00 Respiratory Rate 20 04/04/17 06:00 Blood Pressure 148/75 04/04/17 06:00 O2 Sat by Pulse Oximetry (%) 94 L 04/03/17 21:00 Constitutional: Yes: No Distress, Calm Eyes: Yes: Conjunctiva Clear HENT: Yes: Atraumatic Neck: Yes: Supple Cardiovascular: Yes: Regular Rate and Rhythm Respiratory: Yes: CTA Bilaterally Gastrointestinal: Yes: Soft, Other (peg removed no bleed). No: Distention, Tenderness Genitourinary: Yes: Other (suprapubic cath). No: Chavarria Present, Hematuria Musculoskeletal: No: Joint Stiffness, Joint Swelling Extremities: No: Cold, Cool, Cyanosis Edema: No Integumentary: No: Rash, Venous Stasis Changes Neurological: Yes: WNL, Alert ...Motor Strength: WNL Psychiatric: Yes: WNL, Alert. No: Agitated, Suicidal Ideation Labs: CBC, BMP 04/03/17 06:00 04/03/17 06:00 INR, PTT INR 1.04 (0.82-1.09) 03/29/17 14:55 - ....Imaging Other: Report Reviewed Assessment/Plan Patient is an 81 year old male with PMHx of dementia, BPH, CVA, COPD, PNA, AAA, HLD, intestinal obstruction, G-tube for dysphagia; s/p TURP for urinary obstruction sec to BPH; UTI suprapubic cath; Chavarria removed ATB per ID for UTI h/o enterococcus and ESBL peg removed; pt is eating po OK and takes his meds po advance diet as tolerated will need and GI f/u outpt falls decubs DVT pfx d/w pt and staff. PT rehab eval.
[2017-04-04] MEDS: TAMSULOSIN HCL 0.4 MG CAP.ER.24H (FP) PO SCH (08:19)
[2017-04-04] MEDS ORDERED: PT OWN MED DRAWER 7, Y5N ONE (10:03)
[2017-04-04] MEDS: METOPROLOL TARTRATE 50 MG TABLET (FP) PO SCH ×2 (10:08→22:37)
[2017-04-04] MEDS: MAGNESIUM OXIDE 400 MG TABLET (FP) PO SCH ×2 (10:08→22:37)
[2017-04-04] MEDS: CEPHALEXIN MONOHYDRATE 500 MG CAPSULE (UD) PO SCH ×2 (10:08→22:37)
[2017-04-04] MEDS: ASPIRIN 81 MG CHEWABLE TABLETS PO SCH (10:08)
[2017-04-04] MEDS: ARFORMOTEROL TARTRATE 15 MCG/2 ML VIAL NEB SCH ×2 (10:09→21:52)
[2017-04-04] MEDS: FINASTERIDE 5 MG TABLET (FP) PO SCH (10:09)
[2017-04-04] MEDS: HEPARIN NA (PORCINE) 5,000 UNITS/ML 1ML VIAL SQ SCH ×2 (10:09→22:37)
[2017-04-04] MEDS: amLODIPine BESYLATE 10 MG TABLET (FP) PO SCH (10:09)
[2017-04-04] MEDS: MIRTAZAPINE 15 MG TABLET (FP) PO SCH (22:37)
[2017-04-05 07:30] VITALS: TEMP 97.5
[2017-04-05] MEDS: TAMSULOSIN HCL 0.4 MG CAP.ER.24H (FP) PO SCH (08:39)
[2017-04-05] MEDS: HEPARIN NA (PORCINE) 5,000 UNITS/ML 1ML VIAL SQ SCH (09:16)
[2017-04-05] MEDS: FINASTERIDE 5 MG TABLET (FP) PO SCH (09:17)
[2017-04-05] MEDS: METOPROLOL TARTRATE 50 MG TABLET (FP) PO SCH (09:17)
[2017-04-05] MEDS: ASPIRIN 81 MG CHEWABLE TABLETS PO SCH (09:17)
[2017-04-05] MEDS: MAGNESIUM OXIDE 400 MG TABLET (FP) PO SCH (09:17)
[2017-04-05] MEDS: amLODIPine BESYLATE 10 MG TABLET (FP) PO SCH (09:17)
[2017-04-05] MEDS: CEPHALEXIN MONOHYDRATE 500 MG CAPSULE (UD) PO SCH (09:17)
--- NOTE | 2017-04-05 09:44 | PN ---
Progress Note (short form) - Note Progress Note: Neurology History of Present Illness Patient is an 81 year old male with PMHx of dementia, BPH, CVA, COPD, PNA, AAA, HLD, intestinal obstruction, G-tube who was referred to the ER by his PCP. As per Dr. Gini Delcid, the patient has a vieyra catheter that the is having a hard time managing at home and states that it is not draining properly. Patient admitted and scheduled for TURP procedure and suprapubic cath. No issues after procedure. Remains at baseline and no new neurologic events. Has been restarted on ASA 81mg. On roxicodone for pain control. Active Medications Amlodipine Besylate (Norvasc -) 10 mg PO DAILY [facility] Last Admin: 04/05/17 09:17 Dose: 10 mg Arformoterol Tartrate (Brovana (Restricted To Pulmonology/Resp) -) 1 amp NEB BID [facility] Last Admin: 04/04/17 21:52 Dose: Not Given Aspirin (Asa -) 81 mg PO DAILY [facility] Last Admin: 04/05/17 09:17 Dose: 81 mg Cephalexin HCl (Keflex -) 500 mg PO BID [facility] Last Admin: 04/05/17 09:17 Dose: 500 mg Finasteride (Proscar -) 5 mg PO DAILY [facility] Last Admin: 04/05/17 09:17 Dose: 5 mg Heparin Sodium (Porcine) (Heparin -) 5,000 unit SQ BID [facility] Last Admin: 04/05/17 09:16 Dose: 5,000 unit Magnesium Oxide (Mag-Ox -) 400 mg PO BID [facility] Last Admin: 04/05/17 09:17 Dose: 400 mg Metoprolol Tartrate (Lopressor -) 50 mg PO BID [facility] Last Admin: 04/05/17 09:17 Dose: 50 mg Mirtazapine (Remeron -) 15 mg PO HS [facility] Last Admin: 04/04/17 22:37 Dose: 15 mg Ondansetron HCl (Zofran Injection) 4 mg IVPUSH Q6H PRN PRN Reason: NAUSEA AND/OR VOMITING Oxycodone HCl (Roxicodone -) 5 mg PO Q8H PRN PRN Reason: PAIN Last Admin: 04/02/17 15:42 Dose: 5 mg Promethazine HCl (Phenergan Injection -) 12.5 mg IVPUSH Q6H PRN PRN Reason: NAUSEA-FOR RESCUE AFTER 15 MIN Tamsulosin HCl (Flomax -) 0.4 mg PO DAILY@0830 [facility] Last Admin: 04/05/17 08:39 Dose: 0.4 mg *Physical Exam Vital Signs Temperature 97.5 F L 04/05/17 06:28 Pulse Rate 62 04/05/17 06:28 Respiratory Rate 20 04/05/17 06:28 Blood Pressure 141/66 04/05/17 06:28 O2 Sat by Pulse Oximetry (%) 96 04/04/17 21:00 03/29/17 15:01 GENERAL: Vieyra Catheter - sediment, dirty-looking Awake, alert, and fully oriented, in no acute distress HEAD: No signs of trauma EYES: PERRLA, EOMI, sclera anicteric, conjunctiva clear ENT: Auricles normal inspection, hearing grossly normal, nares patent, oropharynx clear without exudates. Moist mucosa NECK: Normal ROM, supple, no lymphadenopathy, JVD, or masses LUNGS: Breath sounds equal, clear to auscultation bilaterally. No wheezes, and no crackles HEART: Regular rate and rhythm, normal S1 and S2, no murmurs, rubs or gallops ABDOMEN: G-tube- clean, dry, intact.Soft, nontender, normoactive bowel sounds. No guarding, no rebound. No masses EXTREMITIES: Normal range of motion, no edema. No clubbing or cyanosis. No cords, erythema, or tenderness NEUROLOGICAL: Cranial nerves II through XII grossly intact. Normal speech, motor intact, sensory normal, gait deferred SKIN: Warm, Dry, normal turgor, no rashes or lesions noted. CT head reviewed CBCD WBC 9.4 K/mm3 (4.0-10.0) 04/03/17 06:00 RBC 5.15 M/mm3 (4.00-5.60) 04/03/17 06:00 Hgb 13.7 GM/dL (11.7-16.9) 04/03/17 06:00 Hct 41.2 % (35.4-49) 04/03/17 06:00 MCV 80.0 fl (80-96) 04/03/17 06:00 MCHC 33.1 g/dl (32.0-35.9) 04/03/17 06:00 RDW 16.7 % (11.9-15.9) H 04/03/17 06:00 Plt Count 314 K/MM3 (134-434) 04/03/17 06:00 MPV 7.3 fl (7.5-11.1) L 04/03/17 06:00 CMP Sodium 138 mmol/L (136-145) 04/03/17 06:00 Potassium 4.1 mmol/L (3.5-5.1) 04/03/17 06:00 Chloride 103 mmol/L (98-107) 04/03/17 06:00 Carbon Dioxide 27 mmol/L (21-32) 04/03/17 06:00 Anion Gap 8 (8-16) 04/03/17 06:00 BUN 14 mg/dL (7-18) 04/03/17 06:00 Creatinine 0.7 mg/dL (0.7-1.3) 04/03/17 06:00 Creat Clearance w eGFR > 60 (>60) 04/03/17 06:00 Calcium 9.5 mg/dL (8.5-10.1) 04/03/17 06:00 Total Bilirubin 0.4 mg/dL (0.2-1.0) D 04/03/17 06:00 AST 16 U/L (15-37) D 04/03/17 06:00 ALT 16 U/L (12-78) 04/03/17 06:00 Alkaline Phosphatase 92 U/L (45-117) 04/03/17 06:00 Total Protein 7.1 g/dl (6.4-8.2) 04/03/17 06:00 Albumin 2.7 g/dl (3.4-5.0) L 04/03/17 06:00 Medical Decision Making 81 year old male with PMHx of dementia, BPH, CVA, COPD, PNA, AAA, HLD, intestinal obstruction, G-tube who was referred to the ER by his PCP. As per Dr. Gini Delcid, the patient has a vieyra catheter that the is having a hard time managing at home and states that it is not draining properly. Patient admitted and scheduled for TURP procedure and suprapubic cath. Tolerated procedure well Mental status and exam appear stable at this time. Antiplatelet restarted, ASA 81mg Monitor BP, maintain < 140/90 On Roxicodone for pain mgmt, wean as able Monitor Mental status Maintain hydration Follow up Urology Neurologically stable
[2017-04-05] MEDS: ARFORMOTEROL TARTRATE 15 MCG/2 ML VIAL NEB SCH (10:25)
[2017-04-05 11:22] VITALS: BP 127/73; PULSE 65
--- NOTE | 2017-04-05 13:12 | DS ---
Physical Examination Vital Signs: Vital Signs Temperature 97.5 F L 04/05/17 11:21 Pulse Rate 65 04/05/17 11:21 Respiratory Rate 16 04/05/17 11:21 Blood Pressure 127/73 04/05/17 11:21 O2 Sat by Pulse Oximetry (%) 96 04/05/17 10:35 Findings/Remarks: feeling well no c/o wants to go home; does not have any rehab days left for this year; d/w pt and and CM: pt will have home VNS [facility] and home PT rehab; d/w pt and meds scripts and f/u consults and instructions. to have po ATB x 1 week [facility] VNS PT percocet prn #20 tb; ALISON checked; d/w pt possible risks with opiates falls tolerance dependence constipation or respiratory depression; to take as advised only and for severe pain; falls PFX; hold for sedation or lethargy has walker, WC home. d/w CM, t time 45 minf Constitutional: Yes: No Distress, Calm Eyes: Yes: Conjunctiva Clear HENT: Yes: Atraumatic Neck: Yes: Supple Cardiovascular: Yes: Regular Rate and Rhythm Respiratory: Yes: CTA Bilaterally Gastrointestinal: Yes: Soft. No: Distention Renal/: No: CVA Tenderness - Left, CVA Tenderness - Right Musculoskeletal: No: Joint Stiffness, Joint Swelling Extremities: No: Cold, Cool, Cyanosis Edema: No Integumentary: No: Rash, Venous Stasis Changes Neurological: Yes: WNL, Alert, Oriented ...Motor Strength: WNL Psychiatric: Yes: WNL, Alert, Oriented. No: Agitated, Suicidal Ideation Labs: CBC, BMP 04/03/17 06:00 04/03/17 06:00 Discharge Summary Reason For Visit: COMPLICATION OF GREENBERG CATHETER Current Active Problems Benign localized hyperplasia of prostate with urinary obstruction (Acute) Complication of Greenberg catheter (Acute) Dysphagia (Acute) Urinary tract infection (Acute) Procedures: Principal: admitted for uti urinary obstruction BPH for TURP Other Procedures: IV ATB per ID; for TURP; cardiology and neurology evals;. Greenberg removed; suprapubic inserted per ; to be removed 1-2 weeks outpt by ; . PEG removed; f/u with GI Hospital Course: improved with above; DC home and f/u as advised Condition: Fair - Instructions Diet, Activity, Other Instructions: f/u PCP and GI drs in 1-2 weeks after DC from H po antibiotic x 1 week; percocet prn if severe pain #20 tabs ordered falls PFX; home VNS, home PT rehab, [facility]; see dr Davis in 1 week - will need suprapubic tube removal per stomach tube removal GI f/u also to see cardiology and neurology in 1-2 months after DC home has home WC and walker to use for safety RTER if fever/chills/ pain or bleed. Referrals: Gini Delcid [Primary Care Provider] - Chevy Davis MD [Staff Physician] - Tba Hollins MD [Staff Physician] - Kwan Butt MD [Staff Physician] - Eric Rader MD [Staff Physician] - Disposition: HOME - Home Medications Comprehensive Discharge Medication List: Ambulatory Orders Aspirin [ASA -] 81 mg PEG DAILY 10/16/16 Arformoterol Tartrate [Brovana -] 1 amp NEB BID amp 12/08/16 Magnesium Oxide [Mag-Ox -] 400 mg PEG BID tablet 12/08/16 Metoclopramide Oral Soln [Reglan Oral Solution -] 10 mg GT TIDAC PRN #300 ml 05/26 Metoprolol Tartrate [Lopressor -] 50 mg PEG BID tablet 12/08/16 Mirtazapine [Remeron -] 15 mg PEG HS tablet 12/08/16 Potassium Chloride [Potassium Chloride Oral Liquid] 20 meq PEG DAILY #450 ml 05/26 Sennosides [Senna -] 2 tab PEG PRN PRN MDD 2 12/09/16 Tamsulosin HCl [Flomax -] 0.4 mg PEG DAILY@0830 12/09/16 Scopolamine Hydrobromide [Transderm-Scop -] 1 patch TD Q3D@1000 PRN #10 patch Amlodipine Besylate [Norvasc -] 10 mg PEG DAILY tablet 12/25/16 Finasteride [Proscar -] 5 mg PO DAILY tablet 12/25/16 Insulin Sliding Scale [Novolog Vial Sliding Scale -] 1 vial SQ BID #0 units Lactobacillus Acidophilus [Bacid -] 1 tab PEG BID #60 tab 12/25/16 Doxazosin Mesylate 2 mg PO DAILY 03/29/17 Combivent Respimat Inhal [place] 03/31/17
--- NOTE | 2017-04-05 13:37 | PN ---
Progress Note, Physician History of Present Illness: Patient is an 81 year old male with PMHx of dementia, BPH, CVA, COPD, PNA, AAA, HLD, intestinal obstruction, G-tube who was referred to the ER by his PCP. As per Dr. Gini Delcid, the patient has a chavarria catheter that the is having a hard time managing at home and states that it is not draining properly. Dr. Delcid also stated that the patient is scheduled for a TURP procedure on Wednesday. PMH LE angio 02/21/2015 Dr. 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/10/2014 Dr Alcazar PCI LCx 09/20/2014 Dr Alcazar Claudication, intermittent HTN Hyperlipidemia TIA/CVA - Current Medication List Current Medications: Active Medications Amlodipine Besylate (Norvasc -) 10 mg PO DAILY [facility] Last Admin: 04/05/17 09:17 Dose: 10 mg Arformoterol Tartrate (Brovana (Restricted To Pulmonology/Resp) -) 1 amp NEB BID [facility] Last Admin: 04/05/17 10:25 Dose: 1 amp Aspirin (Asa -) 81 mg PO DAILY [facility] Last Admin: 04/05/17 09:17 Dose: 81 mg Cephalexin HCl (Keflex -) 500 mg PO BID [facility] Last Admin: 04/05/17 09:17 Dose: 500 mg Finasteride (Proscar -) 5 mg PO DAILY [facility] Last Admin: 04/05/17 09:17 Dose: 5 mg Heparin Sodium (Porcine) (Heparin -) 5,000 unit SQ BID [facility] Last Admin: 04/05/17 09:16 Dose: 5,000 unit Magnesium Oxide (Mag-Ox -) 400 mg PO BID [facility] Last Admin: 04/05/17 09:17 Dose: 400 mg Metoprolol Tartrate (Lopressor -) 50 mg PO BID [facility] Last Admin: 04/05/17 09:17 Dose: 50 mg Mirtazapine (Remeron -) 15 mg PO HS [facility] Last Admin: 04/04/17 22:37 Dose: 15 mg Ondansetron HCl (Zofran Injection) 4 mg IVPUSH Q6H PRN PRN Reason: NAUSEA AND/OR VOMITING Oxycodone HCl (Roxicodone -) 5 mg PO Q8H PRN PRN Reason: PAIN Last Admin: 04/02/17 15:42 Dose: 5 mg Promethazine HCl (Phenergan Injection -) 12.5 mg IVPUSH Q6H PRN PRN Reason: NAUSEA-FOR RESCUE AFTER 15 MIN Tamsulosin HCl (Flomax -) 0.4 mg PO DAILY@0830 [facility] Last Admin: 04/05/17 08:39 Dose: 0.4 mg - Objective Vital Signs: Vital Signs Temperature 97.5 F L 04/05/17 11:21 Pulse Rate 65 04/05/17 11:21 Respiratory Rate 16 04/05/17 11:21 Blood Pressure 127/73 04/05/17 11:21 O2 Sat by Pulse Oximetry (%) 96 04/05/17 10:35 Eyes: Yes: WNL, Conjunctiva Clear, EOM Intact HENT: Yes: WNL, Atraumatic, Normocephalic Neck: Yes: WNL, Supple, Trachea Midline Cardiovascular: Yes: WNL, Regular Rate and Rhythm Respiratory: Yes: WNL, Regular, CTA Bilaterally Gastrointestinal: Yes: WNL, Normal Bowel Sounds Genitourinary: Yes: WNL Musculoskeletal: Yes: WNL Extremities: Yes: WNL Edema: No Integumentary: Yes: WNL Neurological: Yes: WNL, Alert, Oriented ...Motor Strength: WNL Psychiatric: Yes: WNL Labs: CBC, BMP 04/03/17 06:00 04/03/17 06:00 INR, PTT INR 1.04 (0.82-1.09) 03/29/17 14:55 Problem List - Problems (1) Complication of Chavarria catheter Code(s): T83.9XXA - UNSP COMPLICATION OF GENITOURINARY PROSTH DEV/GRFT, INIT (2) Urinary tract infection Code(s): N39.0 - URINARY TRACT INFECTION, SITE NOT SPECIFIED Qualifiers: Urinary tract infection type: acute cystitis Hematuria presence: with hematuria Qualified Code(s): N30.01 - Acute cystitis with hematuria (3) Abdominal aneurysm Code(s): I71.4 - ABDOMINAL AORTIC ANEURYSM, WITHOUT RUPTURE (4) Abdominal aortic aneurysm (AAA) Code(s): I71.4 - ABDOMINAL AORTIC ANEURYSM, WITHOUT RUPTURE (5) Abdominal pain Code(s): R10.9 - UNSPECIFIED ABDOMINAL PAIN (6) Aspiration into airway Code(s): T17.908A - UNSP FB IN RESP TRACT, PART UNSP CAUSING OTH INJURY, INIT (7) Asymptomatic bacteriuria Code(s): R82.71 - BACTERIURIA (8) Bacteremia Code(s): R78.81 - BACTEREMIA (9) Bandemia Code(s): D72.825 - BANDEMIA (10) Bilateral leg weakness Code(s): M62.81 - MUSCLE WEAKNESS (GENERALIZED) (11) CHF (congestive heart failure) Code(s): I50.9 - HEART FAILURE, UNSPECIFIED (12) CVA (cerebral infarction) Code(s): I63.9 - CEREBRAL INFARCTION, UNSPECIFIED (13) Cerebral aneurysm Code(s): I67.1 - CEREBRAL ANEURYSM, NONRUPTURED (14) Chronic obstructive pulmonary disease Code(s): J44.9 - CHRONIC OBSTRUCTIVE PULMONARY DISEASE, UNSPECIFIED (15) Dehydration Code(s): E86.0 - DEHYDRATION (16) Depression Code(s): F32.9 - MAJOR DEPRESSIVE DISORDER, SINGLE EPISODE, UNSPECIFIED (17) Diastolic CHF Code(s): I50.30 - UNSPECIFIED DIASTOLIC (CONGESTIVE) HEART FAILURE (18) Distended bladder Code(s): N32.89 - OTHER SPECIFIED DISORDERS OF BLADDER (19) Dysphagia Code(s): R13.10 - DYSPHAGIA, UNSPECIFIED (20) Elevated LFTs Code(s): R79.89 - OTHER SPECIFIED ABNORMAL FINDINGS OF BLOOD CHEMISTRY (21) Fall Code(s): W19.XXXA - UNSPECIFIED FALL, INITIAL ENCOUNTER Qualifiers: Encounter type: initial encounter Qualified Code(s): W19.XXXA - Unspecified fall, initial encounter (22) [place] cardiac risk >20% in next 10 years Code(s): Z91.89 - OTH PERSONAL RISK FACTORS, NOT ELSEWHERE CLASSIFIED (23) Gross hematuria Code(s): R31.0 - GROSS HEMATURIA (24) HTN (hypertension) Code(s): I10 - ESSENTIAL (PRIMARY) HYPERTENSION (25) Hyperbilirubinemia Code(s): E80.6 - OTHER DISORDERS OF BILIRUBIN METABOLISM (26) Hyperglycemia Code(s): R73.9 - HYPERGLYCEMIA, UNSPECIFIED (27) Hyperlipemia, mixed Code(s): E78.2 - MIXED HYPERLIPIDEMIA (28) Hyperlipidemia Code(s): E78.5 - HYPERLIPIDEMIA, UNSPECIFIED (29) Hypernatremia Code(s): E87.0 - HYPEROSMOLALITY AND HYPERNATREMIA (30) Hypoalbuminemia Code(s): E88.09 - OTH DISORDERS OF PLASMA-PROTEIN METABOLISM, NEC (31) Hypokalemia Code(s): E87.6 - HYPOKALEMIA (32) Hypokalemia due to inadequate potassium intake Code(s): E87.6 - HYPOKALEMIA (33) Hypomagnesemia Code(s): E83.42 - HYPOMAGNESEMIA (34) Hypophosphatemia Code(s): E83.39 - OTHER DISORDERS OF PHOSPHORUS METABOLISM (35) Hypothyroid Code(s): E03.9 - HYPOTHYROIDISM, UNSPECIFIED (36) Ileus following gastrointestinal surgery Code(s): K91.3 - POSTPROCEDURAL INTESTINAL OBSTRUCTION * DO NOT USE * (37) PSVT (paroxysmal supraventricular tachycardia) Code(s): I47.1 - SUPRAVENTRICULAR TACHYCARDIA (38) Pneumatosis intestinalis Code(s): K63.89 - OTHER SPECIFIED DISEASES OF INTESTINE (39) Pneumonia Code(s): J18.9 - PNEUMONIA, UNSPECIFIED ORGANISM Qualifiers: Pneumonia type: aspiration pneumonia Aspiration pneumonia type: unspecified Laterality: bilateral Lung location: unspecified part of lung Qualified Code(s): J69.0 - Pneumonitis due to inhalation of food and vomit (40) Right hip pain Code(s): M25.551 - PAIN IN RIGHT HIP (41) Right leg pain Code(s): M79.604 - PAIN IN RIGHT LEG (42) S/P percutaneous endoscopic gastrostomy (PEG) tube placement Code(s): Z93.1 - GASTROSTOMY STATUS (43) SBO (small bowel obstruction) Code(s): K56.69 - OTHER INTESTINAL OBSTRUCTION * DO NOT USE * (44) Silent aspiration Code(s): T17.900A - UNSP FB IN RESP TRACT, PART UNSP CAUSING ASPHYX, INIT (45) Small bowel mass Code(s): K63.89 - OTHER SPECIFIED DISEASES OF INTESTINE (46) TIA (transient ischemic attack) Code(s): G45.9 - TRANSIENT CEREBRAL ISCHEMIC ATTACK, UNSPECIFIED (47) Urinary retention Code(s): R33.9 - RETENTION OF URINE, UNSPECIFIED (48) Urinary retention due to benign prostatic hyperplasia Code(s): N40.1 - BENIGN PROSTATIC HYPERPLASIA WITH LOWER URINARY TRACT SYMP; R33.8 - OTHER RETENTION OF URINE (49) Wasting syndrome Code(s): R64 - CACHEXIA (50) Weakness Code(s): R53.1 - WEAKNESS Assessment/Plan Assessment/Plan s/p TURP ASHD s/p PCI [id number] 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 restart ASA 81mg Further plan/disp as per PMD and
--- NOTE | 2017-04-05 13:40 | PN ---
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 Staff providing soft or mashing/cutting up food with excellent tolerance. Provide supplements b/n meals, as indicated.
--- NOTE | 2017-04-05 15:28 | PATH ---
Surgical Pathology Report Patient Name: TOMASZ FRAUSTO Med. Rec. #: [id number] /Age/Gender: 1935 (Age: 81) / M Account: [id number] Location: [facility] MED/SURG Taken: 03/31/2017 Received: 03/31/2017 Reported: 04/05/2017 Physicians: Chevy Davis M.D. Specimen(s) Received PROSTATE CHIPS Clinical History Complication of Chavarria catheter Final Diagnosis PROSTATE, TUR: PROSTATIC ADENOCARCINOMA, IVETTE SCORE 3+3 TOTAL 6, MEASURING APPROXIMATELY 2 MM IN LENGTH AND INVOLVING ONE TISSUE FRAGMENT (LESS THAN 1% OF TISSUE SAMPLED). Comment: Immunohistochemical stains performed at [place], [place] ([id number]) and interpreted at [facility] show the following results: P40 and high molecular weight cytokeratin show loss of the myoepithelial cell layer in the area of carcinoma. AMACR is positive. This case was discussed with Dr. Davis on April 05, 2017. Electronically Signed Nicolas Allison M.D. Gross Description Received in formalin labeled "prostate chips," is a 2 g, 4.5 x 3.5 x 0.5 cm aggregate of alvarez, firm to rubbery portions of tissue, consistent with prostate chips. The specimen is entirely submitted in 3 cassettes. /03/31/2017 saudi03/31/2017
== END 2017-04-05 15:13 | disposition home or self-care (01) | DRG 662 ==
LOC: JER 11:00 → JERBED 14:39 → J8W 17:55
PROVIDERS: ADMIT Internal Medicine; ATTEND Internal Medicine
PROC: 0T9B00Z Drainage of Bladder with Drainage Device, Open Approach (ICD-10-PCS; 2017-03-31)
PROC: 0TJB8ZZ Inspection of Bladder, Via Natural or Artificial Opening Endoscopic (ICD-10-PCS; 2017-03-31)
PROC: 0VT08ZZ Resection of Prostate, Via Natural or Artificial Opening Endoscopic (ICD-10-PCS; principal; 2017-03-31 11:00)
PROC: 0DPDXUZ Removal of Feeding Device from Lower Intestinal Tract, External Approach (ICD-10-PCS; 2017-04-02)
DX: T83.098A Other mechanical complication of other urinary catheter, initial encounter (principal); G93.41 Metabolic encephalopathy; I69.851 Hemiplegia and hemiparesis following other cerebrovascular disease affecting right dominant side; N39.0 Urinary tract infection, site not specified; N13.8 Other obstructive and reflux uropathy; K56.699 Other intestinal obstruction unspecified as to partial versus complete obstruction; N40.1 Benign prostatic hyperplasia with lower urinary tract symptoms; B96.1 Klebsiella pneumoniae [K. pneumoniae] as the cause of diseases classified elsewhere; R33.8 Other retention of urine; J44.9 Chronic obstructive pulmonary disease, unspecified; E78.5 Hyperlipidemia, unspecified; K59.09 Other constipation; I11.9 Hypertensive heart disease without heart failure; R13.10 Dysphagia, unspecified; I71.4 Abdominal aortic aneurysm, without rupture; R73.03 Prediabetes; F03.90 Unspecified dementia, unspecified severity, without behavioral disturbance, psychotic disturbance, mood disturbance, and anxiety; I65.29 Occlusion and stenosis of unspecified carotid artery; I25.10 Atherosclerotic heart disease of native coronary artery without angina pectoris; Z95.5 Presence of coronary angioplasty implant and graft; I73.89 Other specified peripheral vascular diseases; Z93.1 Gastrostomy status; Z87.891 Personal history of nicotine dependence
CPT/HCPCS: 36415; 71020-TC; 74230-TC; 80048; 80053; 81003; 81015; 82550; 84443; 84484; 85025; 85610; 85730; 86850; 86900; 86901; 87040; 87086; 87186; 88305-TC; 92611-GN; 93005; 93010; 94010; 94640; 94760; 94761; 97116-GP; 97162-GP; 99283-25; J1644

== ENCOUNTER 2017-06-23 11:10 | Inpatient (IN) | payer OTHER, BC ==
--- NOTE | 2017-06-23 11:56 | PDOC ---
History of Present Illness - General History Source: Patient, Spouse Exam Limitations: No Limitations - History of Present Illness Initial Comments: 06/23/17 13:22 The patient is a 82 year old male, with a significant past medical history of CVA(with mild residual right sided hemiparesis), AAA, asthma, COPD, borderline diabetes, hypertension, hyperlipidemia, dementia, BPH, and intestinal obstruction, who presents ot the emergency department accompanied by complaining of a cough and bilateral lower extremity edema for approximately 3 weeks. The patient reports his cough is productive of hicks sputum, and is nonbloody/nonbilious. He endorses associated lower extremity edema, but denies any chest pain, shortness of breath, diaphoresis, or palpitations. As per , the patient saw his Radial Drill Operator 2 weeks ago with similar symptoms, and CXR was done, which was negative. However, patient was started on Antibiotics. As per , patient has had persistent coughing and has been using his Nebulizer treatments with mild relief. Patient denies any recent fever, chills, headache, or dizziness. He denies any chest pain, shortness of breath, diaphoresis, or palpitations. He denies any recent travel or sick contacts. Allergies: NKDA Past Surgical History: Chest tube for pneumothorax, G-tube for dysphagia Social History: Former smoker(Quit 2011). No ETOH or recreational drug use. PCP: Dr. Delcid <Mele Mak - Last Filed: 06/23/17 16:22> <Derrick Israel - Last Filed: 06/23/17 16:59> - General Chief Complaint: Respiratory Stated Complaint: SOB Time Seen by Provider: 06/23/17 11:34 Past History <Mele Mak - Last Filed: 06/23/17 16:22> - Past Medical History Anemia: No Cancer: No Cardiac Disorders: No CVA: Yes (Mild R hemiparesis) COPD: Yes CHF: No Dementia: No Diabetes: Yes (Borderline) GI Disorders: No Disorders: No HTN: Yes Hypercholesterolemia: Yes Liver Disease: No Seizures: No Thyroid Disease: No - Surgical History Abdominal Surgery: Yes (g.tube) Appendectomy: No Cardiac Surgery: No Cholecystectomy: No Lung Surgery: Yes (chest tube for pneumothorax) Neurologic Surgery: No - Immunization History Immunization Up to Date: Yes - Suicide/Smoking/Psychosocial Hx Smoking Status: Yes Smoking History: Former smoker Have you smoked in the past 12 months: No Number of Cigarettes Smoked Daily: 10 If you are a former smoker, when did you quit?: 2011 Information on smoking cessation initiated: No 'Breaking Loose' booklet given: 03/03/16 Hx Alcohol Use: No Drug/Substance Use Hx: No Substance Use Type: None Hx Substance Use Treatment: No <Derrick Israel - Last Filed: 06/23/17 16:59> - Past Medical History Allergies/Adverse Reactions: Allergies Allergy/AdvReac Type Severity Reaction Status Date / Time No Known Allergies Allergy Verified 06/23/17 11:43 Home Medications: Ambulatory Orders Arformoterol Tartrate [Brovana -] 1 amp NEB BID amp 12/08/16 Magnesium Oxide [Mag-Ox -] 400 mg PEG BID tablet 12/08/16 Metoprolol Tartrate [Lopressor -] 50 mg PEG BID tablet 12/08/16 Mirtazapine [Remeron -] 15 mg PEG HS tablet 12/08/16 Tamsulosin HCl [Flomax -] 0.4 mg PEG DAILY@0830 12/09/16 Amlodipine Besylate [Norvasc -] 10 mg PEG DAILY tablet 12/25/16 Finasteride [Proscar -] 5 mg PO DAILY tablet 12/25/16 Lactobacillus Acidophilus [Bacid -] 1 tab PEG BID #60 tab 12/25/16 Aspirin [ASA -] 81 mg PEG DAILY #90 tab 04/05/17 Cephalexin Monohydrate [Keflex -] 500 mg PO BID #14 capsule 04/05/17 Metoclopramide HCl 5 mg PO TID #90 tablet 04/05/17 Sennosides [Senna -] 2 tab PO PRN PRN #0 tab MDD 2 04/05/17 oxyCODONE HCL [Roxicodone -] 5 mg PO Q8H PRN #20 tablet MDD 3 04/05/17 Review of Systems - Review of Systems Able to Perform ROS?: Yes Comments:: 06/23/17 13:22 CONSTITUTIONAL: No fever or chills. No fatigue EYES: No visual changes ENT: No ear pain, no sore throat CARDIOVASCULAR: No chest pain, no palpitations RESPIRATORY: +Cough. No SOB GI: No abdominal pain, no nausea, no vomiting, no constipation, no diarrhea GENITOURINARY: No dysuria, no frequency, no hematuria MUSCULOSKELETAL: +Bilateral lower extremity edema. No back pain, no joint pain, no myalgias SKIN: No rash NEURO: No headache <Mele Mak - Last Filed: 06/23/17 16:22> *Physical Exam - Vital Signs Last Vital Signs Temp Pulse Resp BP Pulse Ox 97.9 F 86 20 145/75 98 06/23/17 11:44 06/23/17 11:44 06/23/17 11:44 06/23/17 11:44 06/23/17 12:07 - Physical Exam Comments: 06/23/17 13:24 CONSTITUTIONAL: Well-appearing; well-nourished; in no apparent distress HEAD: Normocephalic; atraumatic EYES: PERRL; EOM intact ENMT: External appears normal; normal oropharynx NECK: Supple; non-tender; no cervical lymphadenopathy. CARD: Normal S1, S2; no murmurs, rubs, or gallops RESP: Normal chest excursion with respiration; Intermittent expiratory wheezing ; no rhonchi or rales ABD: Soft, non-distended; non-tender; no palpable organomegaly, no palpable hernias EXT: +4 pitting edema of the bilateral lower extremities. Normal ROM in all four extremities; non-tender to palpation; distal pulses intact SKIN: Warm, dry, no rash NEURO: No focal neurological deficiencies. <Mele Mak - Last Filed: 06/23/17 16:22> - Vital Signs Last Vital Signs Temp Pulse Resp BP Pulse Ox 97.9 F 86 20 145/75 93 L 06/23/17 11:44 06/23/17 11:44 06/23/17 11:44 06/23/17 11:44 06/23/17 11:44 <Derrick Israel - Last Filed: 06/23/17 16:59> Heart Score/ECG Review - ECG Intrepretation Comment:: 06/23/17 16:22 Vent Rate: 79 bpm IMPRESSION: Normal sinus rhythm. Inferior infarct, age undetermined. <Mele Mak - Last Filed: 06/23/17 16:22> ED Treatment Course - LABORATORY CBC & Chemistry Diagram: 06/23/17 12:30 06/23/17 12:30 - RADIOLOGY Radiograph Interpretation: 06/23/17 16:25 EXAM: Chest CT INTERPRETED BY: REVIEWED BY: Dr. Israel IMPRESSION: The large airways of the central tracheobronchial tree are patent, with no definite endobronchial nodularity. There are advanced, severe centrilobular emphysematous changes. There is bilateral lower lobe traction bronchiectasis with bandlike opacities radiating towards the pleura in both lung bases, reflecting atelectasis and/or scarring. There is evidence of volume loss in both lower lobes. There is no consolidation or focal opacity to suggest pneumonia. There is no evidence of pulmonary edema. There is a 1.3 x 1.2 cm solid noncalcified nodular opacity in the left lower lobe ( image 69 of series 4 ). There is no pleural effusion or pneumothorax. The heart is not enlarged. There is no pericardial effusion. There is severe three-vessel coronary artery calcification and/or stents. The the thoracic aorta is of normal caliber with mild calcific atherosclerosis along the arch and descending aorta. The main pulmonary artery is borderline in size measuring 30 mm in diameter. There are no pathologically enlarged axillary or mediastinal lymph nodes by CT size criteria. There is no evidence of bulky hilar lymphadenopathy, within the limitations of no IV contrast. Multiple calcified mediastinal lymph nodes are most likely the sequela of prior granulomatous disease. Review of the upper abdomen demonstrates no mass in the adrenal glands. There is a small hiatal hernia. There are extensive atherosclerotic vascular calcifications along the visualized abdominal aortic branch vessels. There is osseous demineralization with no evidence of acute fracture. There is thoracic spondylosis. There is minimal levoconvex curvature of the thoracic spine. SUMMARY: Advanced, severe centrilobular emphysematous changes with no evidence of pulmonary edema or pneumonia. No pleural effusion. <Mele Mak - Last Filed: 06/23/17 16:22> - LABORATORY CBC & Chemistry Diagram: 06/23/17 12:30 06/23/17 12:30 <Derrick Israel - Last Filed: 06/23/17 16:59> Medical Decision Making - Medical Decision Making 06/23/17 16:23 First call placed to Dr. Delcid at 16:15. Awaiting call back. Case discussed with Dr. Delcid at 16:25. <Mele Mak - Last Filed: 06/23/17 16:22> - Medical Decision Making 06/23/17 16:56 Patient is a frail-appearing 82-year-old male with history of advanced emphysema , CHF, CVA, AAA, who presents to the ER with worsening shortness of breath and a persistent cough, productive of white sputum for the past several weeks that is not effectively controlled by antibiotics prescribed by the relief cook. In the ER, patient is awake and alert, hypoxemic on room air with oxygen saturation ranging from 88-90% on room air, improving to 95% on 2 L via nasal cannula. At times, patient is noted to have difficulty clearing his own secretions, lung evaluation reveals and expiratory wheezing and intermittently decreased air entry (most prominent at the right base). CBC/CMP within normal limit. CT of chest reveals no evidence of acute intra-thoracic pathology, left lobe nodule is noted, centrilobular emphysema is also identified. Loss of volume is also noted. Patient will receive continuous nebulizer therapy, Solu- Medrol and Lasix for suspected CHF exacerbation is manifested by extreme lower extremity edema. Will admit. <Derrick Israel - Last Filed: 06/23/17 16:59> *DC/Admit/Observation/Transfer - Attestations Scribe Attestion: 06/23/17 13:24 Documentation prepared by Mele Mak, acting as district medical examiner for Derrick Israel MD. <Mele Mak - Last Filed: 06/23/17 16:22> - Discharge Dispostion Admit: Yes <Derrick Israel - Last Filed: 06/23/17 16:59> Diagnosis at time of Disposition: Acute exacerbation of chronic obstructive pulmonary disease (COPD) CHF (congestive heart failure) Qualifiers: Heart failure type: unspecified Heart failure chronicity: acute Qualified Code( s): I50.9 - Heart failure, unspecified - Discharge Dispostion Condition at time of disposition: Fair - Referrals Referrals: Gini Delcid [Primary Care Provider] -
[2017-06-23] MEDS ORDERED: ALBUTEROL SO4 2.5/IPRATROPIUM 0.5 INH SOL 3 ML VIAL.NEB. NEB ONE ×4 (12:12→15:55)
--- NOTE | 2017-06-23 13:19 | EKG ---
Test Reason : Blood Pressure : / mmHG Vent. Rate : 079 BPM Atrial Rate : 079 BPM P-R Int : 202 ms QRS Dur : 080 ms QT Int : 378 ms P-R-T Axes : 064 024 053 degrees QTc Int : 433 ms POOR DATA QUALITY, INTERPRETATION MAY BE ADVERSELY AFFECTED NORMAL SINUS RHYTHM INFERIOR INFARCT , AGE UNDETERMINED ABNORMAL ECG WHEN COMPARED WITH ECG OF 29-MAR-2017 15:28, NO SIGNIFICANT CHANGE WAS FOUND Confirmed by DIEGO MCCORMICK MD ([id number]) on 06/23/2017 1:19:04 PM Referred By: Confirmed By:DIEGO MCCORMICK MD
[2017-06-23 13:35] LABS: BASO % 0.8 % (0-2.0); EOS % 17.3 % (0-4.5); HEMATOCRIT 41.2 % (35.4-49); HEMOGLOBIN 13.3 GM/dL (11.7-16.9); LYMPH % 19.4 % (8-40); MCH 26.7 pg (25.7-33.7); MCHC 32.3 g/dl (32.0-35.9); MEAN CELL VOLUME 82.7 fl (80-96); MEAN PLT VOLUME 6.4 fl (7.5-11.1); MONO % 10.6 % (3.8-10.2); NEUT % 51.9 % (42.8-82.8); PLATELET COUNT 303 K/MM3 (134-434); RBC 4.99 M/mm3 (4.00-5.60); RDW 16.1 % (11.9-15.9); WHITE BLOOD COUNT 8.7 K/mm3 (4.0-10.0)
[2017-06-23 13:58] LABS: ALBUMIN 3.5 g/dl (3.4-5.0); ALK PHOS 87 U/L (45-117); ANION GAP 6 (8-16); BILIRUBIN,TOTAL 0.8 mg/dL (0.2-1.0); BLOOD UREA NITROGEN 10 mg/dL (7-18); CALCIUM 9.1 mg/dL (8.5-10.1); CHLORIDE 104 mmol/L (98-107); CO2 29 mmol/L (21-32); CREATININE 0.8 mg/dL (0.7-1.3); GLUCOSE,RANDOM 100 mg/dL (74-106); SGOT/AST 40 U/L (15-37); SGPT/ALT 34 U/L (12-78); SODIUM 139 mmol/L (136-145); TOT PROT 7.4 g/dl (6.4-8.2)
[2017-06-23] MEDS ORDERED: methylPREDNISolone NA SUCC 40 MG/1 ML VIAL IVPUSH ONE (15:53)
[2017-06-23] MEDS ORDERED: methylPREDNISolone NA SUCC 125 MG/2 ML VIAL ONE (16:00)
[2017-06-23] MEDS ORDERED: FUROSEMIDE 40 MG/4 ML INJECTABLE VIAL IVPUSH ONE (16:06)
[2017-06-23] MEDS ORDERED: FUROSEMIDE 40 MG/4 ML INJECTABLE VIAL ONE (16:43)
--- NOTE | 2017-06-23 21:59 | HP ---
Admitting History and Physical - Primary Care Physician PCP: Gini Delcid S - Admission Chief Complaint: cough, SOB, legs edema, sputum production History of Present Illness: The patient is a 82 year old male, with a significant past medical history of CVA(with mild residual right sided hemiparesis), AAA, asthma, COPD, borderline diabetes, hypertension, hyperlipidemia, dementia, BPH, and intestinal obstruction, who presents ot the emergency department accompanied by complaining of a cough and bilateral lower extremity edema for approximately 3 weeks. The patient reports his cough is productive of hicks sputum, and is nonbloody/nonbilious. He endorses associated lower extremity edema, but denies any chest pain, shortness of breath, diaphoresis, or palpitations. As per , the patient saw his Office Bookkeeper 2 weeks ago with similar symptoms, and CXR was done, which was negative. However, patient was started on Antibiotics. As per , patient has had persistent coughing and has been using his Nebulizer treatments with mild relief. Patient denies any recent fever, chills, headache, or dizziness. He denies any chest pain, shortness of breath, diaphoresis, or palpitations. He denies any recent travel or sick contacts. History Source: Patient, Family Member, Medical Record Limitations to Obtaining History: No Limitations - Past Medical History [employer]: Yes: CVA, TIA Cardiovascular: Yes: CHF, HTN, Hyperlipdemia Pulmonary: Yes: COPD Gastrointestinal: Yes: Constipation, Other (SBO SB benign mass, s/p resection) Renal/: Yes: BPH, Cancer (prostate) Musculoskeletal: Yes: Hemiparesis - Smoking History Smoking history: Former smoker Have you smoked in the past 12 months: No Aproximately how many cigarettes per day: 10 If you are a former smoker, when did you quit?: 2012 - Alcohol/Substance Use Hx Alcohol Use: No History of Substance Use: reports: None - Social History Usual Living Arrangement: Yes: With Spouse ADL: Independent Occupation: retired from [employer] History of Recent Travel: No Home Medications - Allergies Allergies/Adverse Reactions: Allergies Allergy/AdvReac Type Severity Reaction Status Date / Time No Known Allergies Allergy Verified 06/23/17 11:43 - Home Medications Home Medications: Ambulatory Orders Arformoterol Tartrate [Brovana -] 1 amp NEB BID amp 12/08/16 Finasteride [Proscar -] 5 mg PO DAILY tablet 12/25/16 Lactobacillus Acidophilus [Bacid -] 1 tab PEG BID #60 tab 12/25/16 Metoclopramide HCl 5 mg PO TID #90 tablet 04/05/17 Sennosides [Senna -] 2 tab PO PRN PRN #0 tab MDD 2 04/05/17 Amlodipine Besylate [Norvasc -] 10 mg PO DAILY #0 tablet 06/26/17 Aspirin [ASA -] 81 mg PO DAILY #90 tab 06/26/17 Budesonide/Formeterol Fumarate [SYMBICORT 160/4.5mcg -] 1 puff IH BID #1 inhaler 06/26/17 Furosemide [Lasix -] 40 mg PO DAILY #30 tablet 06/26/17 Magnesium Oxide [Mag-Ox -] 400 mg PO BID #0 tablet 06/26/17 Metoprolol Tartrate [Lopressor -] 50 mg PO BID #0 tablet 06/26/17 Mirtazapine [Remeron -] 15 mg PO HS #0 tablet 06/26/17 Montelukast Na [Singulair -] 10 mg PO HS #30 tablet 06/26/17 Pantoprazole Sodium [Protonix -] 40 mg PO DAILY #20 tablet.ec 06/26/17 Potassium Chloride 10 meq PO DAILY #30 capsule.er 06/26/17 Tamsulosin HCl [Flomax -] 0.4 mg PO DAILY@0830 #0 cap 06/26/17 predniSONE [Deltasone -] 40 mg PO DAILY #20 tablet 06/26/17 Family Disease History - Family Disease History Family Disease History: Heart Disease: Brother (congestive heart failure), Other : Father (lived to ), Mother (lived to her 70's) Review of Systems - Review of Systems Constitutional: reports: Weakness (general). denies: Chills, Fever, Lethargy Eyes: denies: Blind Spots, Double Vision HENT: denies: Difficult Swallowing, Ear Pain Neck: denies: Stiffness, Tenderness Cardiovascular: reports: Edema, Shortness of Breath. denies: Chest Pain, Palpitations Respiratory: reports: Cough, Exercise Intolerance, SOB, SOB on Exertion. denies : Hemoptysis Gastrointestinal: denies: Abdominal Pain, Bloating, Constipation, Diarrhea, Rectal Bleeding, Vomiting, Vomiting Blood Genitourinary: denies: Dysuria, Flank Pain Musculoskeletal: denies: Back Pain, Joint Swelling Integumentary: denies: Bruising, Eczema, Rash, Wound Neurological: reports: Pre-Existing Deficit, Unsteady Gait (at baseline, uses cane), Weakness (general and mild R residual hemiparesis after old CVA). denies : Change in LOC, Change in Speech, Confusion, Dizziness, Seizure, Syncope Hematology/Lymphatic: denies: Easily Bruised, Excessive Bleeding Psychiatric: denies: Altered Sleep Pattern, Anxiety, Depression, Suicidal Physical Examination Vital Signs: Vital Signs Temperature 98.4 F 06/23/17 18:00 Pulse Rate 117 H 06/23/17 18:00 Respiratory Rate 20 06/23/17 18:00 Blood Pressure 125/81 06/23/17 18:00 O2 Sat by Pulse Oximetry (%) 93 L 06/23/17 18:00 Constitutional: Yes: No Distress, Calm Eyes: Yes: Conjunctiva Clear HENT: Yes: Atraumatic Neck: Yes: Supple Cardiovascular: Yes: Regular Rate and Rhythm Respiratory: Yes: Rales, Rhonchi Gastrointestinal: Yes: Soft. No: Distention, Tenderness Renal/: No: CVA Tenderness - Left, CVA Tenderness - Right, Hematuria Musculoskeletal: No: Joint Stiffness, Joint Swelling Extremities: No: Calf Tenderness, Cold, Cool Edema: Yes (both legs up to knees) Peripheral Pulses WNL: Yes Integumentary: No: Rash, Skin Tear Neurological: Yes: WNL, Alert, Oriented ...Motor Strength: WNL Psychiatric: Yes: WNL, Alert, Oriented. No: Agitated, Suicidal Ideation Labs: CBC, BMP 06/23/17 12:30 06/23/17 12:30 Imaging - Results Chest X-ray: Report Reviewed Other: Report Reviewed Assessment/Plan The patient is a 82 year old male, with a significant past medical history of CVA(with mild residual right sided hemiparesis), AAA, asthma, COPD, borderline diabetes, hypertension, hyperlipidemia, dementia, BPH, and intestinal obstruction, who presents ot the emergency department accompanied by complaining of a cough and bilateral lower extremity edema for approximately 3 weeks. s/p recent PO ATB per pulmonary but no improvement; hypoxemic. IV steroids, nebs; IV antibiotics O2 NC cardio and pulm eval swallow eval r/o aspiration falls PFX d/w pt and staff d/w pt's t time 75
[2017-06-23] MEDS ORDERED: ARFORMOTEROL TARTRATE 15 MCG/2 ML VIAL NEB SCH (22:00)
[2017-06-23] MEDS: HEPARIN NA (PORCINE) 5,000 UNITS/ML 1ML VIAL SQ SCH (22:45)
[2017-06-23] MEDS: METOPROLOL TARTRATE 50 MG TABLET (FP) PO SCH (22:45)
[2017-06-23] MEDS: CEFTRIAXONE 1 G/50 ML PREMIX 50 ML IVPB SCH (22:45)
[2017-06-23] MEDS: METOCLOPRAMIDE HCL 10 MG TABLET (FP) PO SCH (22:50)
[2017-06-23] MEDS: MIRTAZAPINE 15 MG TABLET (FP) PO SCH (23:00)
[2017-06-23] MEDS: AZITHROMYCIN IVPB 500 MG in DEXTROSE 5%-WATER - 250 ML IVPB SCH (23:00)
[2017-06-24] MEDS: methylPREDNISolone NA SUCC 125 MG/2 ML VIAL IVPB SCH ×3 (02:45→17:54)
[2017-06-24] MEDS ORDERED: methylPREDNISolone NA SUCC 40 MG/1 ML VIAL ONE (02:55)
[2017-06-24] MEDS ORDERED: METOCLOPRAMIDE HCL 10 MG TABLET (FP) PO ONE ×2 (05:34→15:21)
[2017-06-24] MEDS: METOCLOPRAMIDE HCL 10 MG TABLET (FP) PO SCH ×4 (05:44→23:17)
[2017-06-24 07:09] LABS: BASO % 0.1 % (0-2.0); HEMATOCRIT 44.5 % (35.4-49); HEMOGLOBIN 14.4 GM/dL (11.7-16.9); LYMPH % 15.2 % (8-40); MCH 26.7 pg (25.7-33.7); MCHC 32.3 g/dl (32.0-35.9); MEAN CELL VOLUME 82.7 fl (80-96); MEAN PLT VOLUME 6.9 fl (7.5-11.1); MONO % 1.5 % (3.8-10.2); NEUT % 83.2 % (42.8-82.8); PLATELET COUNT 356 K/MM3 (134-434); RBC 5.37 M/mm3 (4.00-5.60); WHITE BLOOD COUNT 7.3 K/mm3 (4.0-10.0)
--- NOTE | 2017-06-24 07:30 | PN ---
Progress Note, Physician Chief Complaint: in bed feels better but still congested, moist cough, SOB and legs edema IV lasix, iv ATB, IV steroids and nebs consults appreciated d/w pt - Current Medication List Current Medications: Active Medications Amlodipine Besylate (Norvasc -) 10 mg PEG DAILY [facility] Arformoterol Tartrate (Brovana (Restricted To Pulmonology/Resp) -) 1 amp NEB BID [facility] Aspirin (Asa -) 81 mg PO DAILY [facility] Finasteride (Proscar -) 5 mg PO DAILY [facility] Furosemide (Lasix Injection -) 40 mg IVPUSH DAILY [facility] Heparin Sodium (Porcine) (Heparin -) 5,000 unit SQ BID [facility] Last Admin: 06/23/17 22:45 Dose: 5,000 unit Azithromycin 500 mg/ Dextrose 250 mls @ 250 mls/hr IVPB [facility] Last Admin: 06/23/17 23:00 Dose: 250 mls/hr CEFTRIAXONE 1 G/50 ML PREMIX (Ceftriaxone 1 Gm-D5w Bag) 50 mls @ 100 mls/hr IVPB [facility] Last Admin: 06/23/17 22:45 Dose: 100 mls/hr Methylprednisolone Sodium Succinate (Solu-Medrol -) 60 mg IVPB Q8H-IV [facility] Last Admin: 06/24/17 02:45 Dose: 60 mg Metoclopramide HCl (Reglan -) 5 mg PO TID [facility] Last Admin: 06/24/17 05:44 Dose: 5 mg Metoprolol Tartrate (Lopressor -) 50 mg PO BID [facility] Last Admin: 06/23/17 22:45 Dose: 50 mg Mirtazapine (Remeron -) 15 mg PO [facility] Last Admin: 06/23/17 23:00 Dose: 15 mg Senna (Senna -) 2 tab PO DAILY PRN PRN Reason: CONSTIPATION Tamsulosin HCl (Flomax -) 0.4 mg PO DAILY@0830 [facility] - Objective Vital Signs: Vital Signs Temperature 98.1 F 06/24/17 06:00 Pulse Rate 83 06/24/17 06:00 Respiratory Rate 18 06/24/17 06:00 Blood Pressure 146/85 06/24/17 06:00 O2 Sat by Pulse Oximetry (%) 95 06/23/17 21:00 Constitutional: Yes: No Distress, Calm Eyes: Yes: Conjunctiva Clear HENT: Yes: Atraumatic Neck: Yes: Supple Cardiovascular: Yes: Regular Rate and Rhythm Respiratory: Yes: Rales, Rhonchi Gastrointestinal: Yes: Soft. No: Distention Genitourinary: No: CVA Tenderness - Left, CVA Tenderness - Right Musculoskeletal: No: Joint Stiffness, Joint Swelling Extremities: No: Cold, Cool Edema: Yes (less bilat) Integumentary: No: Rash, Venous Stasis Changes Neurological: Yes: WNL, Alert, Oriented ...Motor Strength: WNL Psychiatric: Yes: WNL, Alert, Oriented. No: Agitated Labs: CBC, BMP 06/24/17 06:10 - ....Imaging Other: Report Reviewed Assessment/Plan The patient is a 82 year old male, with a significant past medical history of CVA(with mild residual right sided hemiparesis), AAA, asthma, COPD, borderline diabetes, hypertension, hyperlipidemia, dementia, BPH, and intestinal obstruction, who presents ot the emergency department accompanied by complaining of a cough and bilateral lower extremity edema for approximately 3 weeks. s/p recent PO ATB per pulmonary but no improvement; hypoxemic. IV steroids, nebs; IV antibiotics O2 NC cardio and pulm eval swallow eval r/o aspiration falls PFX d/w pt and staff d/w pt's t time 35
[2017-06-24 07:36] LABS: ALBUMIN 3.7 g/dl (3.4-5.0); ANION GAP 7 (8-16); BLOOD UREA NITROGEN 11 mg/dL (7-18); CALCIUM 9.5 mg/dL (8.5-10.1); CHLORIDE 99 mmol/L (98-107); CO2 32 mmol/L (21-32); GLUCOSE,RANDOM 122 mg/dL (74-106); POTASSIUM 3.9 mmol/L (3.5-5.1); SODIUM 138 mmol/L (136-145)
[2017-06-24 07:47] LABS: ALK PHOS 97 U/L (45-117); BILIRUBIN,TOTAL 0.8 mg/dL (0.2-1.0); CREATININE 0.8 mg/dL (0.7-1.3); SGOT/AST 41 U/L (15-37); SGPT/ALT 37 U/L (12-78); TOT PROT 8.4 g/dl (6.4-8.2)
[2017-06-24] MEDS ORDERED: FUROSEMIDE 40 MG/4 ML INJECTABLE VIAL ONE (10:28)
[2017-06-24] MEDS: ASPIRIN 81 MG CHEWABLE TABLETS PO SCH (10:37)
[2017-06-24] MEDS: TAMSULOSIN HCL 0.4 MG CAP.ER.24H (FP) PO SCH (10:37)
[2017-06-24] MEDS: HEPARIN NA (PORCINE) 5,000 UNITS/ML 1ML VIAL SQ SCH ×3 (10:38→23:42)
[2017-06-24] MEDS: METOPROLOL TARTRATE 50 MG TABLET (FP) PO SCH ×3 (10:38→23:17)
[2017-06-24] MEDS: FUROSEMIDE 40 MG/4 ML INJECTABLE VIAL IVPUSH SCH (10:38)
[2017-06-24] MEDS: FINASTERIDE 5 MG TABLET (FP) PO SCH (10:39)
[2017-06-24] MEDS: amLODIPine BESYLATE 10 MG TABLET (FP) PEG SCH (10:39)
--- NOTE | 2017-06-24 11:03 | CON.PULM ---
Consult Consult Specialty:: Pulmonary Referred by:: Dr. Delcid Reason for Consultation:: COPD - History of Present Illness Chief Complaint: Cough and Lower Extremity Edema History of Present Illness: 82 year old M with pmh of CVA(with mild residual right sided hemiparesis), AAA, asthma, COPD, borderline diabetes, hypertension, hyperlipidemia, dementia, BPH, and intestinal obstruction presented with cough productive of clear sputum and bilateral lower extremity edema x 3 weeks. Patient states he went to his lung doctor 2 weeks ago and was started on a course of antibiotics. Patient has had no improvement in his cough despite abx use and nebulizer tx. Patient also endorses mild dypsnea on exertion. Patient denies fever, chills, chest pain, sob , increase in salty food intake. Patient quit smoking 5 years prior and was a 1/ 2 ppd smoker x many years. 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 Cardio/Vascular: Yes: CHF, HTN, Hyperlipdemia Pulmonary: Yes: COPD Gastrointestinal: Yes: Constipation, Other (SBO SB benign mass, s/p resection) Renal/: Yes: BPH Musculoskeletal: Yes: Hemiparesis - Alcohol/Substance Use Hx Alcohol Use: No History of Substance Use: reports: None - Smoking History Smoking history: Former smoker Have you smoked in the past 12 months: No Aproximately how many cigarettes per day: 10 If you are a former smoker, when did you quit?: 2011 - Social History Usual Living Arrangement: [facility] ADL: Independent Occupation: retired from [employer] Housing History of Recent Travel: No <Nikunj Newton - Last Filed: 06/24/17 12:48> Home Medications <Nikunj Newton - Last Filed: 06/24/17 12:48> <Gilles Dominguez - Last Filed: 06/24/17 15:27> - Allergies Allergies/Adverse Reactions: Allergies Allergy/AdvReac Type Severity Reaction Status Date / Time No Known Allergies Allergy Verified 06/23/17 11:43 - Home Medications Home Medications: Ambulatory Orders Arformoterol Tartrate [Brovana -] 1 amp NEB BID amp 12/08/16 Magnesium Oxide [Mag-Ox -] 400 mg PEG BID tablet 08/01/17 Metoprolol Tartrate [Lopressor -] 50 mg PEG BID tablet 12/08/16 Mirtazapine [Remeron -] 15 mg PEG HS tablet 12/08/16 Tamsulosin HCl [Flomax -] 0.4 mg PEG DAILY@0830 12/09/16 Amlodipine Besylate [Norvasc -] 10 mg PEG DAILY tablet 12/25/16 Finasteride [Proscar -] 5 mg PO DAILY tablet 12/25/16 Lactobacillus Acidophilus [Bacid -] 1 tab PEG BID #60 tab 12/25/16 Aspirin [ASA -] 81 mg PEG DAILY #90 tab 04/05/17 Cephalexin Monohydrate [Keflex -] 500 mg PO BID #14 capsule 04/05/17 Metoclopramide HCl 5 mg PO TID #90 tablet 04/05/17 Sennosides [Senna -] 2 tab PO PRN PRN #0 tab MDD 2 04/05/17 oxyCODONE HCL [Roxicodone -] 5 mg PO Q8H PRN #20 tablet MDD 3 04/05/17 Family Disease History - Family Disease History Family Disease History: Heart Disease: Brother (congestive heart failure), Other : Father (lived to 99), Mother (lived to her 70's) <Nikunj Newton - Last Filed: 06/24/17 12:48> Review of Systems - Review of Systems Constitutional: denies: Chills, Fever, Night Sweats Eyes: reports: No Symptoms HENT: reports: No Symptoms Neck: reports: No Symptoms Cardiovascular: reports: Edema (Bilateral lower extremity). denies: Chest Pain , Palpitations, Shortness of Breath Respiratory: reports: Cough, SOB on Exertion Gastrointestinal: reports: No Symptoms. denies: Abdominal Pain Psychiatric: reports: No Symptoms <Nikunj Newton - Last Filed: 06/24/17 12:48> Physical Exam Vital Sings: Vital Signs Temperature 98.2 F 06/24/17 09:13 Pulse Rate 81 06/24/17 09:13 Respiratory Rate 18 06/24/17 09:13 Blood Pressure 138/68 06/24/17 09:13 O2 Sat by Pulse Oximetry (%) 95 06/23/17 21:00 Constitutional: Yes: No Distress, Calm, Thin Eyes: Yes: WNL, Conjunctiva Clear, EOM Intact HENT: Yes: WNL, Atraumatic, Normocephalic Neck: Yes: WNL, Supple, Trachea Midline Cardiovascular: Yes: WNL, Regular Rate and Rhythm Respiratory: Yes: SOB on Exertion, Wheezes ...Breath Sounds: DICK Wheezes, LLL Wheezes, RUL Wheezes, RML Wheezes, RLL Wheezes, RLL Diminished Gastrointestinal: Yes: Normal Bowel Sounds, Soft Musculoskeletal: Yes: WNL Edema: LLE: 2+, RLE: 2+ Neurological: Yes: Alert, Oriented Labs: CBC, BMP 06/24/17 06:10 06/24/17 06:10 <Nikunj Newton - Last Filed: 06/24/17 12:48> Vital Sings: Vital Signs Temperature 98.0 F 06/24/17 14:20 Pulse Rate 65 06/24/17 14:20 Respiratory Rate 19 06/24/17 14:20 Blood Pressure 137/73 06/24/17 14:20 O2 Sat by Pulse Oximetry (%) 99 06/24/17 09:14 Labs: CBC, BMP 06/24/17 06:10 06/24/17 06:10 <Gilles Dominguez - Last Filed: 06/24/17 15:27> Assessment/Plan 82 year old M with pmh of CVA(with mild residual right sided hemiparesis), AAA, asthma, COPD, borderline diabetes, hypertension, hyperlipidemia, dementia, BPH, and intestinal obstruction presented with cough productive of clear sputum and bilateral lower extremity edema x 3 weeks #COPD exacerbation -Antibiotics (Ceftriaxone/Azithromycin), recommend de-escalation of ABX -Solumederol 40 Q6h -Duonebs TID jacek, Albuterol QIDR prn -O2 as needed -Incentive spirometer -Sputum cx -Lasix -Pt will likely need LAMA, LABA, AND ICS outpatient -Recommend flu shot <Nikunj Newton - Last Filed: 06/24/17 12:48> Patient seen and examined with the resident. Agree with findings in the Consultation note. CT Chest reveals improved bilateral infiltrates from previous. Residual disease likely scar. AE of COPD. No clear infectious process noted. Low threshold to de-escalate or D/C. Will follow. Thank you. Dr Dominguez <Gilles Dominguez - Last Filed: 06/24/17 15:27>
[2017-06-24] MEDS ORDERED: ALBUTEROL SO4 0.083% IH SOL 2.5 MG/3 ML VIAL.NEB. NEB PRN (12:50)
--- NOTE | 2017-06-24 13:00 | CONSULT ---
Admitting History and Physical - Primary Care Physician PCP: Gini Delcid - Admission History of Present Illness: Per EMR: Pulmonary : 82 year old M with pmh of CVA(with mild residual right sided hemiparesis), AAA, asthma, COPD, borderline diabetes, hypertension, hyperlipidemia, dementia, BPH, and intestinal obstruction presented with cough productive of clear sputum and bilateral lower extremity edema x 3 weeks,COPD exacerbation/ CT Chest reveals improved bilateral infiltrates from previous. Residual disease likely scar. AE of COPD. No clear infectious process noted. Pt with h/o dysphagia with PEG. Pt also had persistent candidiasis. 03/30/17 MBS- swallowing WNL. rec reg diet/thin liquids/wean from PEG. 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 Cardiovascular: Yes: CHF, HTN, Hyperlipdemia Pulmonary: Yes: COPD Gastrointestinal: Yes: Constipation, Other (SBO SB benign mass, s/p resection) Renal/: Yes: BPH Musculoskeletal: Yes: Hemiparesis - Smoking History Smoking history: Former smoker Have you smoked in the past 12 months: No Aproximately how many cigarettes per day: 10 If you are a former smoker, when did you quit?: 2012 - Alcohol/Substance Use Hx Alcohol Use: No History of Substance Use: reports: None - Social History ADL: Independent Occupation: retired from [employer] History of Recent Travel: No History - Admission Reason For Visit: COPD - Diagnostics X-ray: Report Reviewed - General Mental Status: Alert and Oriented, Awake and Alert, Able to Follow Commands Attention: Intact Ability to Follow Directions: Good Head/Neck Control: WFL - Hearing Hearing: Functional Speech Evaluation - Communication Primary Language: DJIBOUTIAN Communication: Yes: Within Normal Limits Oral Expression Ability: Yes: No Impairment - Speech Production Able to Make Needs Known: Yes: WNL Intelligibility: Yes: WNL - Speech Characteristics Voice Loudness: Normal Voice Pitch: Yes: Normal Voice Phonatory-based Quality: Yes: Normal Speech Pattern: Normal Speech Clarity: < 100% Nasal Resonance: Normal Articulation: Yes: Precise - Language/Auditory Comprehension Follows: Yes: 1 Stage Simple Commands - Language/Verbal Expression Able to Respond to Simple Queries: Yes: WNL Able to Communicate Wants and Needs: Yes: WNL Functional Communication Status: Yes: WNL - Swallow Evaluation/Bedside Assessment Current Nutritional Intake: Dysphagia Pureed, Thin Liquids Oral Secretions: Yes: WFL Dentition: Yes: Edentulous (Pt eats regular food at home without dentures.) Facial Symmetry at Rest: Symmetrical Facial Symmetry on Retraction: Symmetrical Facial Movement: Controlled Against Resistance Opening: Normal Against Resistance Closing: Normal Pucker Lips: Normal Smile: Normal Lingual Movement: Normal, Symmetric Lingual Speed of Movement: Normal Lingual Movement Strgth Against Opposition: Normal Lingual Movement Characteristics: Normal Velopharyngeal Movement: Normal Laryngeal Movement: Able to Palpate Rate of Intake: WFL Bolus Size: WFL Labial Seal: WFL Chewing: WFL Oral Prep Time: WFL A-P Transit: WFL Pocketing: None Timing of Swallow: Delayed Coughing/Throat Clear: Yes Change in Voice: Yes Recommendations - Speech Evaluation, Impression/Plan Impression: Swallowing overtly intact. - Dysphagia Impressions/Plan Swallowing Skills: WF Dysphagia Impressions: No Impairment *Silent aspiration: cannot be R/O at bedside - Recommendations Diet Consistency: Regular (soft) Medication Administration: Whole with water Liquids: Thin Liquids
[2017-06-24] MEDS: ALBUTEROL SO4 2.5/IPRATROPIUM 0.5 INH SOL 3 ML VIAL.NEB. NEB SCH ×2 (19:46→20:49)
[2017-06-24] MEDS: AZITHROMYCIN IVPB 500 MG in DEXTROSE 5%-WATER - 250 ML IVPB SCH (23:07)
[2017-06-24] MEDS: MIRTAZAPINE 15 MG TABLET (FP) PO SCH ×2 (23:07→23:17)
[2017-06-24] MEDS: CEFTRIAXONE 1 G/50 ML PREMIX 50 ML IVPB SCH (23:08)
[2017-06-25] MEDS: methylPREDNISolone NA SUCC 125 MG/2 ML VIAL IVPB SCH (01:27)
[2017-06-25] MEDS: METOCLOPRAMIDE HCL 10 MG TABLET (FP) PO SCH ×3 (06:04→21:07)
[2017-06-25] MEDS ORDERED: methylPREDNISolone NA SUCC 125 MG/2 ML VIAL IVPB SCH (06:50)
--- NOTE | 2017-06-25 06:52 | PN ---
Progress Note, Physician Chief Complaint: feels better, wants to go home will taper steroids pt said he has home O2 2 tanks, smaller portable; and larger for everyday use in the house - Current Medication List Current Medications: Active Medications Albuterol Sulfate (Ventolin 0.083% Nebulizer Soln -) 1 amp NEB Q4H PRN PRN Reason: SHORT OF BREATH/WHEEZING Last Admin: 06/24/17 23:53 Dose: 1 amp Albuterol/Ipratropium (Duoneb -) 1 amp NEB RTID [facility] Last Admin: 06/24/17 20:49 Dose: 1 amp Amlodipine Besylate (Norvasc -) 10 mg PEG DAILY [facility] Last Admin: 06/24/17 10:39 Dose: 10 mg Aspirin (Asa -) 81 mg PO DAILY [facility] Last Admin: 06/24/17 10:37 Dose: 81 mg Finasteride (Proscar -) 5 mg PO DAILY [facility] Last Admin: 06/24/17 10:39 Dose: 5 mg Furosemide (Lasix Injection -) 40 mg IVPUSH DAILY [facility] Last Admin: 06/24/17 10:38 Dose: 40 mg Heparin Sodium (Porcine) (Heparin -) 5,000 unit SQ BID [facility] Last Admin: 06/24/17 23:42 Dose: Not Given Azithromycin 500 mg/ Dextrose 250 mls @ 250 mls/hr IVPB HS [facility] Last Admin: 06/24/17 23:07 Dose: 250 mls/hr CEFTRIAXONE 1 G/50 ML PREMIX (Ceftriaxone 1 Gm-D5w Bag) 50 mls @ 100 mls/hr IVPB HS [facility] Last Admin: 06/24/17 23:08 Dose: 100 mls/hr Insulin Aspart (Novolog Vial) 0 units SQ ACHS [facility] PRN Reason: Protocol Methylprednisolone Sodium Succinate (Solu-Medrol -) 40 mg IVPB Q8H-IV [facility] Metoclopramide HCl (Reglan -) 5 mg PO TID [facility] Last Admin: 06/25/17 06:04 Dose: Not Given Metoprolol Tartrate (Lopressor -) 50 mg PO BID [facility] Last Admin: 06/24/17 23:17 Dose: Not Given Mirtazapine (Remeron -) 15 mg PO HS [facility] Last Admin: 06/24/17 23:17 Dose: Not Given Pantoprazole Sodium (Protonix -) 40 mg PO DAILY [facility] Senna (Senna -) 2 tab PO DAILY PRN PRN Reason: CONSTIPATION Tamsulosin HCl (Flomax -) 0.4 mg PO DAILY@0830 [facility] Last Admin: 06/24/17 10:37 Dose: 0.4 mg - Objective Vital Signs: Vital Signs Temperature 97.3 F L 06/25/17 05:55 Pulse Rate 89 06/25/17 05:55 Respiratory Rate 20 06/25/17 05:55 Blood Pressure 141/71 06/25/17 05:55 O2 Sat by Pulse Oximetry (%) 95 06/24/17 21:55 Constitutional: Yes: No Distress, Calm Eyes: Yes: Conjunctiva Clear HENT: Yes: Atraumatic Neck: Yes: Supple Cardiovascular: Yes: Regular Rate and Rhythm Respiratory: Yes: Rhonchi Gastrointestinal: Yes: Soft. No: Distention Genitourinary: No: CVA Tenderness - Left, CVA Tenderness - Right Musculoskeletal: No: Joint Stiffness, Joint Swelling Extremities: No: Cold, Cool Edema: Yes (much less) Integumentary: No: Rash, Venous Stasis Changes Neurological: Yes: WNL, Alert, Oriented ...Motor Strength: WNL Psychiatric: Yes: WNL, Alert, Oriented. No: Agitated, Suicidal Ideation Labs: CBC, BMP 06/24/17 06:10 06/24/17 06:10 - ....Imaging Other: Report Reviewed Assessment/Plan The patient is a 82 year old male, with a significant past medical history of CVA(with mild residual right sided hemiparesis), AAA, asthma, COPD, borderline diabetes, hypertension, hyperlipidemia, dementia, BPH, and intestinal obstruction, who presents ot the emergency department accompanied by complaining of a cough and bilateral lower extremity edema for approximately 3 weeks. s/p recent PO ATB per pulmonary but no improvement; hypoxemic. IV steroids, nebs; IV antibiotics, iv lasix O2 NC cardio and pulm eval swallow eval NO aspiration falls PFX d/w pt and staff
[2017-06-25] MEDS: ALBUTEROL SO4 2.5/IPRATROPIUM 0.5 INH SOL 3 ML VIAL.NEB. NEB SCH ×3 (07:40→21:10)
[2017-06-25 08:02] LABS: CHLORIDE 99 mmol/L (98-107); HEMATOCRIT 43.3 % (35.4-49); HEMOGLOBIN 13.9 GM/dL (11.7-16.9); LYMPH % 9.4 % (8-40); MCH 26.4 pg (25.7-33.7); MCHC 32.1 g/dl (32.0-35.9); MEAN CELL VOLUME 82.3 fl (80-96); MONO % 3.9 % (3.8-10.2); NEUT % 86.7 % (42.8-82.8); PLATELET COUNT 342 K/MM3 (134-434); POTASSIUM 3.5 mmol/L (3.5-5.1); RBC 5.26 M/mm3 (4.00-5.60); RDW 16.3 % (11.9-15.9); SODIUM 139 mmol/L (136-145); WHITE BLOOD COUNT 8.9 K/mm3 (4.0-10.0)
[2017-06-25 08:12] LABS: ALBUMIN 3.3 g/dl (3.4-5.0); ALK PHOS 81 U/L (45-117); ANION GAP 9 (8-16); BILIRUBIN,TOTAL 0.6 mg/dL (0.2-1.0); BLOOD UREA NITROGEN 17 mg/dL (7-18); CALCIUM 9.2 mg/dL (8.5-10.1); CO2 31 mmol/L (21-32); CREATININE 0.8 mg/dL (0.7-1.3); GLUCOSE,RANDOM 126 mg/dL (74-106); SGOT/AST 26 U/L (15-37); SGPT/ALT 30 U/L (12-78); TOT PROT 7.4 g/dl (6.4-8.2)
[2017-06-25] MEDS: METOPROLOL TARTRATE 50 MG TABLET (FP) PO SCH ×2 (09:43→21:07)
[2017-06-25] MEDS: amLODIPine BESYLATE 10 MG TABLET (FP) PEG SCH (09:43)
[2017-06-25] MEDS: PANTOPRAZOLE 40 MG TABLET (FP) PO SCH (09:43)
[2017-06-25] MEDS: ASPIRIN 81 MG CHEWABLE TABLETS PO SCH (09:43)
[2017-06-25] MEDS: FINASTERIDE 5 MG TABLET (FP) PO SCH (09:43)
[2017-06-25] MEDS: FUROSEMIDE 40 MG/4 ML INJECTABLE VIAL IVPUSH SCH (09:43)
[2017-06-25] MEDS: HEPARIN NA (PORCINE) 5,000 UNITS/ML 1ML VIAL SQ SCH ×2 (09:43→21:10)
[2017-06-25] MEDS: INSULIN (NOVOLOG) ASPART 100 UNITS/ML 10ML VIAL SQ SCH ×4 (09:43→21:08)
[2017-06-25] MEDS: TAMSULOSIN HCL 0.4 MG CAP.ER.24H (FP) PO SCH (09:43)
[2017-06-25] MEDS: SENNOSIDES 8.6MG TABLET (FP) PO PRN (09:44)
--- NOTE | 2017-06-25 11:08 | PN ---
Progress Note, Physician Chief Complaint: SOB History of Present Illness: REVIEWED - Current Medication List Current Medications: Active Medications Albuterol Sulfate (Ventolin 0.083% Nebulizer Soln -) 1 amp NEB Q4H PRN PRN Reason: SHORT OF BREATH/WHEEZING Last Admin: 06/24/17 23:53 Dose: 1 amp Albuterol/Ipratropium (Duoneb -) 1 amp NEB RTID [facility] Last Admin: 06/25/17 07:40 Dose: Not Given Amlodipine Besylate (Norvasc -) 10 mg PEG DAILY [facility] Last Admin: 06/25/17 09:43 Dose: 10 mg Aspirin (Asa -) 81 mg PO DAILY [facility] Last Admin: 06/25/17 09:43 Dose: 81 mg Finasteride (Proscar -) 5 mg PO DAILY [facility] Last Admin: 06/25/17 09:43 Dose: 5 mg Furosemide (Lasix Injection -) 40 mg IVPUSH DAILY [facility] Last Admin: 06/25/17 09:43 Dose: 40 mg Heparin Sodium (Porcine) (Heparin -) 5,000 unit SQ BID [facility] Last Admin: 06/25/17 09:43 Dose: 5,000 unit Azithromycin 500 mg/ Dextrose 250 mls @ 250 mls/hr IVPB [facility] Last Admin: 06/24/17 23:07 Dose: 250 mls/hr CEFTRIAXONE 1 G/50 ML PREMIX (Ceftriaxone 1 Gm-D5w Bag) 50 mls @ 100 mls/hr IVPB HS [facility] Last Admin: 06/24/17 23:08 Dose: 100 mls/hr Insulin Aspart (Novolog Vial) 0 units SQ ACHS [facility] PRN Reason: Protocol Last Admin: 06/25/17 09:43 Dose: Not Given Methylprednisolone Sodium Succinate (Solu-Medrol -) 40 mg IVPB Q8H-IV [facility] Last Admin: 06/25/17 09:44 Dose: 40 mg Metoclopramide HCl (Reglan -) 5 mg PO TID [facility] Last Admin: 06/25/17 06:04 Dose: Not Given Metoprolol Tartrate (Lopressor -) 50 mg PO BID [facility] Last Admin: 06/25/17 09:43 Dose: 50 mg Mirtazapine (Remeron -) 15 mg PO HS [facility] Last Admin: 06/24/17 23:17 Dose: Not Given Pantoprazole Sodium (Protonix -) 40 mg PO DAILY [facility] Last Admin: 06/25/17 09:43 Dose: 40 mg Senna (Senna -) 2 tab PO DAILY PRN PRN Reason: CONSTIPATION Last Admin: 06/25/17 09:44 Dose: 2 tab Tamsulosin HCl (Flomax -) 0.4 mg PO DAILY@0830 [facility] Last Admin: 06/25/17 09:43 Dose: 0.4 mg - Objective Vital Signs: Vital Signs Temperature 97.3 F L 06/25/17 05:55 Pulse Rate 89 06/25/17 05:55 Respiratory Rate 20 06/25/17 05:55 Blood Pressure 141/71 06/25/17 05:55 O2 Sat by Pulse Oximetry (%) 95 06/24/17 21:55 Constitutional: Yes: Calm Eyes: Yes: EOM Intact HENT: Yes: Normocephalic Neck: Yes: Trachea Midline Cardiovascular: Yes: Regular Rate and Rhythm, S1, S2 Respiratory: Yes: Diminished. No: Rales, Rhonchi Gastrointestinal: Yes: Normal Bowel Sounds Edema: No Neurological: Yes: Alert Labs: CBC, BMP 06/25/17 06:00 06/25/17 06:00 - ....Imaging Chest X-ray: Report Reviewed, Image Reviewed Cat Scan: Report Reviewed, Image Reviewed EKG: Report Reviewed, Image Reviewed Problem List - Problems (1) Acute exacerbation of chronic obstructive pulmonary disease (COPD) Code(s): J44.1 - CHRONIC OBSTRUCTIVE PULMONARY DISEASE W (ACUTE) EXACERBATION (2) CHF (congestive heart failure) Code(s): I50.9 - HEART FAILURE, UNSPECIFIED Qualifiers: Heart failure type: unspecified Heart failure chronicity: acute Qualified Code(s): I50.9 - Heart failure, unspecified (3) Abdominal aortic aneurysm (AAA) Code(s): I71.4 - ABDOMINAL AORTIC ANEURYSM, WITHOUT RUPTURE (4) CVA (cerebral infarction) Code(s): I63.9 - CEREBRAL INFARCTION, UNSPECIFIED (5) Diastolic CHF Code(s): I50.30 - UNSPECIFIED DIASTOLIC (CONGESTIVE) HEART FAILURE Assessment/Plan - COPD exacerbation -Antibiotics (Ceftriaxone/Azithromycin), recommend de-escalation of ABX -Solumederol 40 Q6h changed to oral route -Duonebs TID jacek, Albuterol QIDR prn -O2 as needed -Incentive spirometer -Sputum cx -Lasix -Pt will likely need LAMA, LABA, AND ICS outpatient -Recommend flu shot -discharge planning Salina SIMMONS MD
--- NOTE | 2017-06-25 12:33 | PN ---
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 Tolerating diet well.
[2017-06-25] MEDS: predniSONE 10 MG TABLET (UD) PO SCH (14:19)
--- NOTE | 2017-06-25 17:34 | CON.CARD ---
Consult Consult Specialty:: cardiology Reason for Consultation:: shortness of breath - History of Present Illness Chief Complaint: Pt denies chest pain. History of Present Illness: The patient is a 82 year old black male, with a significant past medical history of CVA (with mild residual right sided hemiparesis), AAA, asthma, COPD ( severe emphysematous changes on CT chest), diastolic CHF, borderline diabetes, hypertension, hyperlipidemia, dementia, BPH, and intestinal obstruction, who presents to the emergency department accompanied by complaining of a cough and bilateral lower extremity edema for approximately 3 weeks. The patient reports his cough is productive of hicks sputum, and is nonbloody/nonbilious. He endorses associated lower extremity edema, but denies any chest pain, shortness of breath, diaphoresis, or palpitations. 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 However, patient was started on Antibiotics. As per , patient has had persistent coughing and has been using his Nebulizer treatments with mild relief. Patient denies any recent fever, chills, headache, or dizziness. He denies any chest pain, shortness of breath, diaphoresis, or palpitations. He denies any recent travel or sick contacts. Allergies: NKDA Past Surgical History: Chest tube for pneumothorax, G-tube for dysphagia Social History: Former smoker(Quit 2011). No ETOH or recreational drug use. PCP: Dr. 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 Cardio/Vascular: Yes: CHF, HTN, Hyperlipdemia Pulmonary: Yes: COPD Gastrointestinal: Yes: Constipation, Other (SBO SB benign mass, s/p resection) Renal/: Yes: BPH Musculoskeletal: Yes: Hemiparesis - Alcohol/Substance Use Hx Alcohol Use: No History of Substance Use: reports: None - Smoking History Smoking history: Former smoker Have you smoked in the past 12 months: No Aproximately how many cigarettes per day: 10 If you are a former smoker, when did you quit?: 2012 - Social History Usual Living Arrangement: Skilled Nursing ADL: Independent Occupation: retired from [employer] Housing History of Recent Travel: No Home Medications - Allergies Allergies/Adverse Reactions: Allergies Allergy/AdvReac Type Severity Reaction Status Date / Time No Known Allergies Allergy Verified 06/23/17 11:43 - Home Medications Home Medications: Ambulatory Orders Arformoterol Tartrate [Brovana -] 1 amp NEB BID amp 12/08/16 Magnesium Oxide [Mag-Ox -] 400 mg PEG BID tablet 12/08/16 Metoprolol Tartrate [Lopressor -] 50 mg PEG BID tablet 12/08/16 Mirtazapine [Remeron -] 15 mg PEG HS tablet 12/08/16 Tamsulosin HCl [Flomax -] 0.4 mg PEG DAILY@0830 12/09/16 Amlodipine Besylate [Norvasc -] 10 mg PEG DAILY tablet 12/25/16 Finasteride [Proscar -] 5 mg PO DAILY tablet 12/25/16 Lactobacillus Acidophilus [Bacid -] 1 tab PEG BID #60 tab 12/25/16 Aspirin [ASA -] 81 mg PEG DAILY #90 tab 04/05/17 Cephalexin Monohydrate [Keflex -] 500 mg PO BID #14 capsule 04/05/17 Metoclopramide HCl 5 mg PO TID #90 tablet 04/05/17 Sennosides [Senna -] 2 tab PO PRN PRN #0 tab MDD 2 04/05/17 oxyCODONE HCL [Roxicodone -] 5 mg PO Q8H PRN #20 tablet MDD 3 04/05/17 Family Disease History - Family Disease History Family Disease History: Heart Disease: Brother (congestive heart failure), Other : Father (lived to 99), Mother (lived to her 70's) Review of Systems - Review of Systems Constitutional: reports: Loss of Appetite, Weakness Eyes: reports: No Symptoms HENT: reports: No Symptoms Neck: reports: No Symptoms Cardiovascular: reports: No Symptoms Respiratory: reports: SOB on Exertion Gastrointestinal: reports: Other (decreased appetite) Genitourinary: reports: No Symptoms Breasts: reports: No Symptoms Reported Musculoskeletal: reports: Muscle Weakness Integumentary: reports: No Symptoms Neurological: reports: Weakness Hematology/Lymphatic: reports: No Symptoms Psychiatric: reports: Other (dementia) - Risk Factors Known Risk Factors: Yes: Age Vital Signs: Vital Signs Temperature 97.6 F 06/25/17 15:11 Pulse Rate 70 06/25/17 15:11 Respiratory Rate 20 06/25/17 15:11 Blood Pressure 123/59 06/25/17 15:11 O2 Sat by Pulse Oximetry (%) 98 06/25/17 09:00 Constitutional: Yes: Calm, Thin Eyes: Yes: WNL HENT: Yes: WNL Neck: Yes: WNL Respiratory: Yes: Diminished, Poor Air Entry Gastrointestinal: Yes: Soft Renal/: No: Anuria JVD: No Carotid Bruit: No PMI: Non-Displaced Heart Sounds: Yes: S1, S2, S4 Murmur: Yes: Systolic Murmur, Grade 2 Musculoskeletal: Yes: Muscle Weakness Extremities: Yes: Cool Edema: Yes Edema: LLE: Trace, RLE: Trace Peripheral Pulses WNL: Yes Integumentary: Yes: WNL Neurological: Yes: Confusion, Weakness Psychiatric: Yes: Other - Other Data Labs, Other Data: CBC, BMP 06/25/17 06:00 06/25/17 06:00 Abnormal Lab Results 06/25/17 06/25/17 06:00 06:00 RDW 16.3 H MPV 7.0 L Neutrophils % 86.7 H Random Glucose 126 H Albumin 3.3 L Imaging - Results EKG: Image Reviewed (NSR; IWMI (no significant changes)) Problem List - Problems (1) Abdominal aortic aneurysm (AAA) Code(s): I71.4 - ABDOMINAL AORTIC ANEURYSM, WITHOUT RUPTURE (2) Bilateral leg weakness Code(s): M62.81 - MUSCLE WEAKNESS (GENERALIZED) (3) Cerebral aneurysm Code(s): I67.1 - CEREBRAL ANEURYSM, NONRUPTURED (4) Chronic obstructive pulmonary disease Assessment/Plan: f/u with pad extraction tender. Severe empysematous changes on CT. Code(s): J44.9 - CHRONIC OBSTRUCTIVE PULMONARY DISEASE, UNSPECIFIED (5) Diastolic CHF Code(s): I50.30 - UNSPECIFIED DIASTOLIC (CONGESTIVE) HEART FAILURE (6) HTN (hypertension) Assessment/Plan: on amlodipine and metoprolol. Consider ACEI (HTN; DM). Code(s): I10 - ESSENTIAL (PRIMARY) HYPERTENSION (7) Hyperlipidemia Assessment/Plan: LDL >130. LFTs WNL. Recommend statin. Code(s): E78.5 - HYPERLIPIDEMIA, UNSPECIFIED (8) Weakness Code(s): R53.1 - WEAKNESS (9) Upper respiratory disease Assessment/Plan: recently had a course of antibiotics for UTI;now on Zithromax. WBCs WNL. F/u with pad extraction tender, ID. Code(s): J39.9 - DISEASE OF UPPER RESPIRATORY TRACT, UNSPECIFIED (10) Dementia Assessment/Plan: f/u with neurologist. Code(s): F03.90 - UNSPECIFIED DEMENTIA WITHOUT BEHAVIORAL DISTURBANCE
[2017-06-25] MEDS ORDERED: INSULIN (NOVOLOG) ASPART 100 UNITS/ML 10ML VIAL ONE (18:00)
[2017-06-25] MEDS ORDERED: PT OWN MED DRAWER 7, Y5N ONE (20:37)
[2017-06-25] MEDS: CEFTRIAXONE 1 G/50 ML PREMIX 50 ML IVPB SCH (21:07)
[2017-06-25] MEDS: MIRTAZAPINE 15 MG TABLET (FP) PO SCH (21:08)
[2017-06-25] MEDS: AZITHROMYCIN IVPB 500 MG in DEXTROSE 5%-WATER - 250 ML IVPB SCH (21:32)
[2017-06-26] MEDS: METOCLOPRAMIDE HCL 10 MG TABLET (FP) PO SCH ×3 (05:48→22:30)
[2017-06-26] MEDS: ALBUTEROL SO4 2.5/IPRATROPIUM 0.5 INH SOL 3 ML VIAL.NEB. NEB SCH ×3 (07:30→21:05)
[2017-06-26] MEDS: INSULIN (NOVOLOG) ASPART 100 UNITS/ML 10ML VIAL SQ SCH ×4 (07:46→22:34)
--- NOTE | 2017-06-26 08:59 | DS ---
Physical Examination Vital Signs: Vital Signs Temperature 98.5 F 06/26/17 06:50 Pulse Rate 68 06/26/17 06:50 Respiratory Rate 18 06/26/17 06:50 Blood Pressure 141/78 06/26/17 06:50 O2 Sat by Pulse Oximetry (%) 98 06/25/17 21:00 Findings/Remarks: feels good ambulates in hallway, wants to go home diuresed well on IV lasix, will DC home on lasix 40 mg/day, symbicort and spiriva; has Home O2; prednisone tapering doses d/w pulm dr Dominguez OK to DC home, d/w pt's about pt's condition, treatment and plan, scripts done, OK to DC home said she can not take him home today, she has doctors appointments Constitutional: Yes: No Distress, Calm Eyes: Yes: Conjunctiva Clear HENT: Yes: Atraumatic Neck: Yes: Supple Cardiovascular: Yes: Regular Rate and Rhythm Respiratory: Yes: CTA Bilaterally Gastrointestinal: Yes: Soft. No: Distention, Tenderness Renal/: No: CVA Tenderness - Left, CVA Tenderness - Right Musculoskeletal: No: Joint Stiffness, Joint Swelling Extremities: No: Cold, Cool, Cyanosis Edema: No Integumentary: No: Rash, Skin Tear Neurological: Yes: WNL, Alert, Oriented ...Motor Strength: WNL Psychiatric: Yes: WNL, Alert, Oriented. No: Agitated, Suicidal Ideation Labs: CBC, BMP 06/25/17 06:00 06/25/17 06:00 Discharge Summary Reason For Visit: COPD Current Active Problems Acute exacerbation of chronic obstructive pulmonary disease (COPD) (Acute) CHF (congestive heart failure) (Acute) Dementia (Acute) Upper respiratory disease (Acute) Procedures: Principal: admitted with acute bronchitis, acute COPD and CHF exac, fluid overload Other Procedures: IV antibiotics, nebs, O2, IV lasix, iv steroids;. seen by cardiology and pulmonary; improved with above Hospital Course: DC home with f/u and meds as advised and prescribed; f/u as advised Condition: Improved - Instructions Referrals: Gini Delcid [Primary Care Provider] - Gilles Dominguez MD [Staff Physician] - Kwan Butt MD [Staff Physician] - Chevy Dvais MD [Staff Physician] - Disposition: VNS/HOME HEALTH CARE - Home Medications Comprehensive Discharge Medication List: Ambulatory Orders prednisone tapering doses see actual list Arformoterol Tartrate [Brovana -] 1 amp NEB BID amp 12/08/16 Magnesium Oxide [Mag-Ox -] 400 mg PEG BID tablet 12/08/16 Metoprolol Tartrate [Lopressor -] 50 mg PEG BID tablet 12/08/16 Mirtazapine [Remeron -] 15 mg PEG HS tablet 12/08/16 Tamsulosin HCl [Flomax -] 0.4 mg PEG DAILY@0830 12/09/16 Amlodipine Besylate [Norvasc -] 10 mg PEG DAILY tablet 12/25/16 Finasteride [Proscar -] 5 mg PO DAILY tablet 12/25/16 Lactobacillus Acidophilus [Bacid -] 1 tab PEG BID #60 tab 12/25/16 Aspirin [ASA -] 81 mg PEG DAILY #90 tab 04/05/17 Metoclopramide HCl 5 mg PO TID #90 tablet 04/05/17 Sennosides [Senna -] 2 tab PO PRN PRN #0 tab MDD 2 04/05/17
[2017-06-26] MEDS ORDERED: POTASSIUM CHLORIDE TABS 20 MEQ TABLET.ER (FP) PO ONE (10:30)
--- NOTE | 2017-06-26 11:12 | PN ---
Progress Note (short form) - Note Progress Note: Feels overall better. Feels close to baseline. Intake & Output 06/23/17 06/24/17 06/25/17 06/26/17 23:59 23:59 23:59 23:59 Intake Total 640 1100 Output Total 1350 Balance 640 -250 Weight 135 lb 127 lb 11.2 oz Last Vital Signs Temp Pulse Resp BP Pulse Ox 98.5 F 68 18 141/78 98 06/26/17 06:50 06/26/17 06:50 06/26/17 06:50 06/26/17 06:50 06/25/17 21:00 Active Medications Albuterol Sulfate (Ventolin 0.083% Nebulizer Soln -) 1 amp NEB Q4H PRN PRN Reason: SHORT OF BREATH/WHEEZING Last Admin: 06/24/17 23:53 Dose: 1 amp Albuterol/Ipratropium (Duoneb -) 1 amp NEB RTID [facility] Last Admin: 06/26/17 07:30 Dose: 1 amp Amlodipine Besylate (Norvasc -) 10 mg PEG DAILY [facility] Last Admin: 06/25/17 09:43 Dose: 10 mg Aspirin (Asa -) 81 mg PO DAILY [facility] Last Admin: 06/25/17 09:43 Dose: 81 mg Budesonide/Formoterol Fumarate (Symbicort 160/4.5mcg -) 1 puff IH BID [facility] Finasteride (Proscar -) 5 mg PO DAILY [facility] Last Admin: 06/25/17 09:43 Dose: 5 mg Furosemide (Lasix Injection -) 40 mg IVPUSH DAILY [facility] Last Admin: 06/25/17 09:43 Dose: 40 mg Heparin Sodium (Porcine) (Heparin -) 5,000 unit SQ BID [facility] Last Admin: 06/25/17 21:10 Dose: 5,000 unit Azithromycin 500 mg/ Dextrose 250 mls @ 250 mls/hr IVPB HS [facility] Last Admin: 06/25/17 21:32 Dose: 250 mls/hr CEFTRIAXONE 1 G/50 ML PREMIX (Ceftriaxone 1 Gm-D5w Bag) 50 mls @ 100 mls/hr IVPB HS [facility] Last Admin: 06/25/17 21:07 Dose: 100 mls/hr Insulin Aspart (Novolog Vial) 0 units SQ ACHS [facility] PRN Reason: Protocol Last Admin: 06/26/17 07:46 Dose: Not Given Metoclopramide HCl (Reglan -) 5 mg PO TID [facility] Last Admin: 06/26/17 05:48 Dose: 5 mg Metoprolol Tartrate (Lopressor -) 50 mg PO BID [facility] Last Admin: 06/25/17 21:07 Dose: 50 mg Mirtazapine (Remeron -) 15 mg PO HS [facility] Last Admin: 06/25/17 21:08 Dose: 15 mg Montelukast Sodium (Singulair -) 10 mg PO [facility] Pantoprazole Sodium (Protonix -) 40 mg PO DAILY [facility] Last Admin: 06/25/17 09:43 Dose: 40 mg Prednisone (Deltasone -) 30 mg PO DAILY [facility] Last Admin: 06/25/17 14:19 Dose: 30 mg Senna (Senna -) 2 tab PO DAILY PRN PRN Reason: CONSTIPATION Last Admin: 06/25/17 09:44 Dose: 2 tab Tamsulosin HCl (Flomax -) 0.4 mg PO DAILY@0830 [facility] Last Admin: 06/25/17 09:43 Dose: 0.4 mg Constitutional: Yes: No Distress, Thin Eyes: Yes: WNL, Conjunctiva Clear, EOM Intact HENT: Yes: WNL, Atraumatic, Normocephalic Neck: Yes: WNL, Supple, Trachea Midline Cardiovascular: Yes: WNL, Regular Rate and Rhythm Respiratory: Yes: Diminished, No Wheezes Gastrointestinal: Yes: Normal Bowel Sounds, Soft Musculoskeletal: Yes: WNL Edema: LLE: 2+, RLE: 2+ Neurological: Yes: Alert, Oriented Labs: Laboratory Results - last 24 hr 06/25/17 06/25/17 06/25/17 06:00 11:55 17:06 POC Glucometer 111 153 Free T3 2.0 06/25/1718 21:06 05:47 POC Glucometer 169 132 Free T3 Assessment/Plan 82 year old M with pmh of CVA(with mild residual right sided hemiparesis), AAA, asthma, COPD, borderline diabetes, hypertension, hyperlipidemia, dementia, BPH, and intestinal obstruction presented with cough productive of clear sputum and bilateral lower extremity edema x 3 weeks #COPD exacerbation Prednisone Patient has Home O2 Discharge with Symbicort and can add Spiriva daily Dr Dominguez
[2017-06-26] MEDS: FUROSEMIDE 40 MG/4 ML INJECTABLE VIAL IVPUSH SCH (11:43)
[2017-06-26] MEDS: SENNOSIDES 8.6MG TABLET (FP) PO PRN (11:44)
[2017-06-26] MEDS: predniSONE 10 MG TABLET (UD) PO SCH (11:44)
[2017-06-26] MEDS: METOPROLOL TARTRATE 50 MG TABLET (FP) PO SCH ×2 (11:44→22:30)
[2017-06-26] MEDS: FINASTERIDE 5 MG TABLET (FP) PO SCH (11:44)
[2017-06-26] MEDS: ASPIRIN 81 MG CHEWABLE TABLETS PO SCH (11:45)
[2017-06-26] MEDS: TAMSULOSIN HCL 0.4 MG CAP.ER.24H (FP) PO SCH (11:45)
[2017-06-26] MEDS: BUDESONIDE/FORMETEROL FUMARATE 160/4.5 mcg INHALER IH SCH ×2 (11:45→22:35)
[2017-06-26] MEDS: amLODIPine BESYLATE 10 MG TABLET (FP) PEG SCH (11:45)
[2017-06-26] MEDS: PANTOPRAZOLE 40 MG TABLET (FP) PO SCH (11:45)
[2017-06-26] MEDS: HEPARIN NA (PORCINE) 5,000 UNITS/ML 1ML VIAL SQ SCH ×2 (11:46→22:31)
[2017-06-26] MEDS ORDERED: PT OWN MED DRAWER 7, Y5N ONE ×2 (12:02→21:09)
[2017-06-26] MEDS ORDERED: MONTELUKAST NA 10 MG TABLET PO SCH (22:00)
[2017-06-26] MEDS: CEFTRIAXONE 1 G/50 ML PREMIX 50 ML IVPB SCH (22:30)
[2017-06-26] MEDS: MIRTAZAPINE 15 MG TABLET (FP) PO SCH (22:30)
[2017-06-26] MEDS: AZITHROMYCIN IVPB 500 MG in DEXTROSE 5%-WATER - 250 ML IVPB SCH (22:35)
[2017-06-27] MEDS ORDERED: PT OWN MED DRAWER 7, Y5N ONE ×2 (01:34→09:08)
[2017-06-27] MEDS: METOCLOPRAMIDE HCL 10 MG TABLET (FP) PO SCH ×2 (05:33→14:52)
[2017-06-27] MEDS: INSULIN (NOVOLOG) ASPART 100 UNITS/ML 10ML VIAL SQ SCH ×3 (06:19→16:42)
[2017-06-27] MEDS: ALBUTEROL SO4 2.5/IPRATROPIUM 0.5 INH SOL 3 ML VIAL.NEB. NEB SCH ×2 (08:22→14:30)
[2017-06-27] MEDS: BUDESONIDE/FORMETEROL FUMARATE 160/4.5 mcg INHALER IH SCH (09:24)
[2017-06-27] MEDS: predniSONE 10 MG TABLET (UD) PO SCH (09:25)
[2017-06-27] MEDS: amLODIPine BESYLATE 10 MG TABLET (FP) PEG SCH (09:26)
[2017-06-27] MEDS: FINASTERIDE 5 MG TABLET (FP) PO SCH (09:26)
[2017-06-27] MEDS: PANTOPRAZOLE 40 MG TABLET (FP) PO SCH (09:26)
[2017-06-27] MEDS: METOPROLOL TARTRATE 50 MG TABLET (FP) PO SCH (09:26)
[2017-06-27] MEDS: ASPIRIN 81 MG CHEWABLE TABLETS PO SCH (09:26)
[2017-06-27] MEDS: TAMSULOSIN HCL 0.4 MG CAP.ER.24H (FP) PO SCH (09:26)
[2017-06-27] MEDS: FUROSEMIDE 40 MG/4 ML INJECTABLE VIAL IVPUSH SCH ×2 (09:26→14:53)
[2017-06-27] MEDS: HEPARIN NA (PORCINE) 5,000 UNITS/ML 1ML VIAL SQ SCH (09:27)
--- NOTE | 2017-06-27 11:05 | PN ---
Progress Note (short form) - Note Progress Note: Apparently did not go home due to social issues. Feels overall better. Feels close to baseline. No acute events overnight. Intake & Output 06/24/17 06/25/17 06/26/17 06/27/17 23:59 23:59 23:59 23:59 Intake Total 640 1100 600 50 Output Total 1350 800 100 Balance 640 -250 -200 -50 Weight 127 lb 11.2 oz Last Vital Signs Temp Pulse Resp BP Pulse Ox 97.5 F L 68 18 147/75 94 L 06/27/17 10:00 06/27/17 10:00 06/27/17 10:00 06/27/17 10:00 06/26/17 09:25 Active Medications Albuterol Sulfate (Ventolin 0.083% Nebulizer Soln -) 1 amp NEB Q4H PRN PRN Reason: SHORT OF BREATH/WHEEZING Last Admin: 06/24/17 23:53 Dose: 1 amp Albuterol/Ipratropium (Duoneb -) 1 amp NEB RTID [facility] Last Admin: 06/27/17 08:22 Dose: 1 amp Amlodipine Besylate (Norvasc -) 10 mg PEG DAILY [facility] Last Admin: 06/27/17 09:26 Dose: 10 mg Aspirin (Asa -) 81 mg PO DAILY [facility] Last Admin: 06/27/17 09:26 Dose: 81 mg Budesonide/Formoterol Fumarate (Symbicort 160/4.5mcg -) 1 puff IH BID [facility] Last Admin: 06/27/17 09:24 Dose: 1 inh Finasteride (Proscar -) 5 mg PO DAILY [facility] Last Admin: 06/27/17 09:26 Dose: 5 mg Furosemide (Lasix Injection -) 40 mg IVPUSH DAILY [facility] Last Admin: 06/27/17 09:26 Dose: 40 mg Heparin Sodium (Porcine) (Heparin -) 5,000 unit SQ BID [facility] Last Admin: 06/27/17 09:27 Dose: 5,000 unit Azithromycin 500 mg/ Dextrose 250 mls @ 250 mls/hr IVPB [facility] Last Admin: 06/26/17 22:35 Dose: 250 mls/hr CEFTRIAXONE 1 G/50 ML PREMIX (Ceftriaxone 1 Gm-D5w Bag) 50 mls @ 100 mls/hr IVPB [facility] Last Admin: 06/26/17 22:30 Dose: 100 mls/hr Insulin Aspart (Novolog Vial) 0 units SQ ACHS [facility] PRN Reason: Protocol Last Admin: 06/27/17 06:19 Dose: Not Given Metoclopramide HCl (Reglan -) 5 mg PO TID [facility] Last Admin: 06/27/17 05:33 Dose: 5 mg Metoprolol Tartrate (Lopressor -) 50 mg PO BID [facility] Last Admin: 06/27/17 09:26 Dose: 50 mg Mirtazapine (Remeron -) 15 mg PO HS [facility] Last Admin: 06/26/17 22:30 Dose: 15 mg Montelukast Sodium (Singulair -) 10 mg PO HS [facility] Last Admin: 06/26/17 22:30 Dose: 10 mg Pantoprazole Sodium (Protonix -) 40 mg PO DAILY [facility] Last Admin: 06/27/17 09:26 Dose: 40 mg Prednisone (Deltasone -) 30 mg PO DAILY [facility] Last Admin: 06/27/17 09:25 Dose: 30 mg Senna (Senna -) 2 tab PO DAILY PRN PRN Reason: CONSTIPATION Last Admin: 06/26/17 11:44 Dose: 2 tab Tamsulosin HCl (Flomax -) 0.4 mg PO DAILY@0830 [facility] Last Admin: 06/27/17 09:26 Dose: 0.4 mg Constitutional: Yes: No Distress, Thin Eyes: Yes: WNL, Conjunctiva Clear, EOM Intact HENT: Yes: WNL, Atraumatic, Normocephalic Neck: Yes: WNL, Supple, Trachea Midline Cardiovascular: Yes: WNL, Regular Rate and Rhythm Respiratory: Yes: Diminished, No Wheezes Gastrointestinal: Yes: Normal Bowel Sounds, Soft Musculoskeletal: Yes: WNL Edema: LLE: 2+, RLE: 2+ Neurological: Yes: Alert, Oriented Labs: Laboratory Results - last 24 hr 06/26/17 06/26/17 06/26/17 11:40 17:56 21:01 POC Glucometer 245 142 199 06/27/17 05:26 POC Glucometer 114 Assessment/Plan 82 year old M with pmh of CVA(with mild residual right sided hemiparesis), AAA, asthma, COPD, borderline diabetes, hypertension, hyperlipidemia, dementia, BPH, and intestinal obstruction presented with cough productive of clear sputum and bilateral lower extremity edema x 3 weeks #COPD exacerbation Prednisone Patient has Home O2 Discharge with Symbicort and can add Spiriva daily Dr Dominguez
--- NOTE | 2017-06-27 12:07 | PN ---
Progress Note, Physician History of Present Illness: Pt w/o SOB, CP, palpitations, abd pain. Pt cough is much improved. Pt wants to go home. - Current Medication List Current Medications: Active Medications Albuterol Sulfate (Ventolin 0.083% Nebulizer Soln -) 1 amp NEB Q4H PRN PRN Reason: SHORT OF BREATH/WHEEZING Last Admin: 06/24/17 23:53 Dose: 1 amp Albuterol/Ipratropium (Duoneb -) 1 amp NEB RTID [facility] Last Admin: 06/27/17 08:22 Dose: 1 amp Amlodipine Besylate (Norvasc -) 10 mg PEG DAILY [facility] Last Admin: 06/27/17 09:26 Dose: 10 mg Aspirin (Asa -) 81 mg PO DAILY [facility] Last Admin: 06/27/17 09:26 Dose: 81 mg Budesonide/Formoterol Fumarate (Symbicort 160/4.5mcg -) 1 puff IH BID [facility] Last Admin: 06/27/17 09:24 Dose: 1 inh Finasteride (Proscar -) 5 mg PO DAILY [facility] Last Admin: 06/27/17 09:26 Dose: 5 mg Furosemide (Lasix Injection -) 40 mg IVPUSH DAILY [facility] Last Admin: 06/27/17 09:26 Dose: 40 mg Heparin Sodium (Porcine) (Heparin -) 5,000 unit SQ BID [facility] Last Admin: 06/27/17 09:27 Dose: 5,000 unit Azithromycin 500 mg/ Dextrose 250 mls @ 250 mls/hr IVPB [facility] Last Admin: 06/26/17 22:35 Dose: 250 mls/hr CEFTRIAXONE 1 G/50 ML PREMIX (Ceftriaxone 1 Gm-D5w Bag) 50 mls @ 100 mls/hr IVPB [facility] Last Admin: 06/26/17 22:30 Dose: 100 mls/hr Insulin Aspart (Novolog Vial) 0 units SQ ACHS [facility] PRN Reason: Protocol Last Admin: 06/27/17 06:19 Dose: Not Given Metoclopramide HCl (Reglan -) 5 mg PO TID [facility] Last Admin: 06/27/17 05:33 Dose: 5 mg Metoprolol Tartrate (Lopressor -) 50 mg PO BID [facility] Last Admin: 06/27/17 09:26 Dose: 50 mg Mirtazapine (Remeron -) 15 mg PO [facility] Last Admin: 06/26/17 22:30 Dose: 15 mg Montelukast Sodium (Singulair -) 10 mg PO [facility] Last Admin: 06/26/17 22:30 Dose: 10 mg Pantoprazole Sodium (Protonix -) 40 mg PO DAILY [facility] Last Admin: 06/27/17 09:26 Dose: 40 mg Prednisone (Deltasone -) 30 mg PO DAILY [facility] Last Admin: 06/27/17 09:25 Dose: 30 mg Senna (Senna -) 2 tab PO DAILY PRN PRN Reason: CONSTIPATION Last Admin: 06/26/17 11:44 Dose: 2 tab Tamsulosin HCl (Flomax -) 0.4 mg PO DAILY@0830 [facility] Last Admin: 06/27/17 09:26 Dose: 0.4 mg - Objective Vital Signs: Vital Signs Temperature 97.5 F L 06/27/17 10:00 Pulse Rate 68 06/27/17 10:00 Respiratory Rate 18 06/27/17 10:00 Blood Pressure 147/75 06/27/17 10:00 O2 Sat by Pulse Oximetry (%) 94 L 06/26/17 09:25 Constitutional: Yes: No Distress Cardiovascular: Yes: Regular Rate and Rhythm, S1, S2 Respiratory: Yes: Regular, Other (coarse BS). No: Rhonchi, Wheezes Gastrointestinal: Yes: Normal Bowel Sounds, Soft. No: Tenderness Edema: No Neurological: Yes: Alert, Oriented Labs: CBC, BMP 06/25/17 06:00 06/25/17 06:00 Problem List - Problems (1) Acute CHF (congestive heart failure) Code(s): I50.9 - HEART FAILURE, UNSPECIFIED (2) Acute bronchitis Code(s): J20.9 - ACUTE BRONCHITIS, UNSPECIFIED (3) Acute exacerbation of chronic obstructive pulmonary disease (COPD) Code(s): J44.1 - CHRONIC OBSTRUCTIVE PULMONARY DISEASE W (ACUTE) EXACERBATION (4) Dementia Code(s): F03.90 - UNSPECIFIED DEMENTIA WITHOUT BEHAVIORAL DISTURBANCE (5) Abdominal aortic aneurysm (AAA) Code(s): I71.4 - ABDOMINAL AORTIC ANEURYSM, WITHOUT RUPTURE (6) HTN (hypertension) Code(s): I10 - ESSENTIAL (PRIMARY) HYPERTENSION (7) Hyperglycemia Code(s): R73.9 - HYPERGLYCEMIA, UNSPECIFIED (8) Hyperlipidemia Code(s): E78.5 - HYPERLIPIDEMIA, UNSPECIFIED Assessment/Plan Cont Prednisone, Symbicort, add Spiriva. Cont other meds. To f/u with pt in the office. To MA home today
[2017-06-27] MEDS ORDERED: FUROSEMIDE 40 MG TABLET (FP) PO SCH (17:15)
[2017-06-27 19:35] VITALS: BP 135/68; PULSE 81; TEMP 97.5
== END 2017-06-27 20:19 | disposition home health service (06) | DRG 190 ==
LOC: JER 11:10 → JERBED 16:55 → J8W 06-24 22:04
PROVIDERS: ADMIT Internal Medicine; ATTEND Internal Medicine
DX: J44.1 Chronic obstructive pulmonary disease with (acute) exacerbation (principal); I50.31 Acute diastolic (congestive) heart failure; I69.351 Hemiplegia and hemiparesis following cerebral infarction affecting right dominant side; J44.0 Chronic obstructive pulmonary disease with (acute) lower respiratory infection; I10 Essential (primary) hypertension; E78.5 Hyperlipidemia, unspecified; N40.0 Benign prostatic hyperplasia without lower urinary tract symptoms; F03.90 Unspecified dementia, unspecified severity, without behavioral disturbance, psychotic disturbance, mood disturbance, and anxiety; R73.03 Prediabetes; I71.4 Abdominal aortic aneurysm, without rupture; K59.09 Other constipation; R09.02 Hypoxemia; R53.1 Weakness; Z99.81 Dependence on supplemental oxygen; E87.79 Other fluid overload; K44.9 Diaphragmatic hernia without obstruction or gangrene; M47.894 Other spondylosis, thoracic region; R91.1 Solitary pulmonary nodule; R26.81 Unsteadiness on feet; I11.0 Hypertensive heart disease with heart failure; J20.9 Acute bronchitis, unspecified; Z85.46 Personal history of malignant neoplasm of prostate; Z87.891 Personal history of nicotine dependence; Z93.1 Gastrostomy status
CPT/HCPCS: 36415; 71046-TC-FY; 71250-TC; 80048; 80053; 82962; 83880; 84439; 84443; 84481; 85025; 87070; 87205; 87804; 93005; 93010; 94640; 94761; 99285-25; J1644

== ENCOUNTER 2017-07-01 14:28 | Emergency (ER) | payer OTHER, BC ==
[2017-07-01 14:36] VITALS: TEMP 97.8; BMI 19.4
--- NOTE | 2017-07-01 14:38 | PDOC ---
Rapid Medical Evaluation Time Seen by Provider: 07/01/17 14:32 Medical Evaluation: Allergies Allergy/AdvReac Type Severity Reaction Status Date / Time No Known Allergies Allergy Verified 07/01/17 14:32 07/01/17 14:32 The patient presents with a chief complaint of: Cough, swollen legs. D/c'd from the hospital on Wednesday for similar symptoms. Pt. states he feels better than when he was d/c'd from the hospital. No complaints at this time. Sent by Dr. Delcid I have performed a brief in-person evaluation of this patient; Pertinent physical exam findings: ambulatory, in no respiratory distress. BP: 178/87, Diminished lung sounds at the bases, No crackles/rales/wheezing appreciated. 3+ pitting edema b/l. I have ordered the following: CBC, CMP, BNP, Trop, EKG, CXR The patient will proceed to the ED for further evaluation. Discharge Disposition - Referrals Referrals: Gini Delcid [Primary Care Provider] - - Patient Instructions - Post Discharge Activity
[2017-07-01 15:14] LABS: BASO % 0.3 % (0-2.0); EOS % 0.1 % (0-4.5); HEMATOCRIT 41.2 % (35.4-49); HEMOGLOBIN 13.5 GM/dL (11.7-16.9); LYMPH % 8.3 % (8-40); MCH 26.8 pg (25.7-33.7); MCHC 32.7 g/dl (32.0-35.9); MEAN CELL VOLUME 81.8 fl (80-96); MEAN PLT VOLUME 6.8 fl (7.5-11.1); MONO % 6.7 % (3.8-10.2); NEUT % 84.6 % (42.8-82.8); PLATELET COUNT 277 K/MM3 (134-434); RBC 5.03 M/mm3 (4.00-5.60); RDW 15.6 % (11.9-15.9); WHITE BLOOD COUNT 8.4 K/mm3 (4.0-10.0)
[2017-07-01 15:34] LABS: ALBUMIN 3.4 g/dl (3.4-5.0); ANION GAP 8 (8-16); BILIRUBIN,TOTAL 0.5 mg/dL (0.2-1.0); BLOOD UREA NITROGEN 12 mg/dL (7-18); CALCIUM 8.8 mg/dL (8.5-10.1); CHLORIDE 97 mmol/L (98-107); CO2 31 mmol/L (21-32); CREATININE 0.9 mg/dL (0.7-1.3); GLUCOSE,RANDOM 120 mg/dL (74-106); SGOT/AST 26 U/L (15-37); SGPT/ALT 41 U/L (12-78); SODIUM 136 mmol/L (136-145); TOT PROT 7.1 g/dl (6.4-8.2)
[2017-07-01 15:37] LABS: ALK PHOS 84 U/L (45-117); N-TERMINAL BNP 237.87 pg/ml (5-450)
[2017-07-01] MEDS ORDERED: amLODIPine BESYLATE 10 MG TABLET (FP) PO ONE (16:05)
[2017-07-01] MEDS ORDERED: METOPROLOL TARTRATE 50 MG TABLET (FP) PO ONE (16:05)
[2017-07-01] MEDS ORDERED: amLODIPine BESYLATE 5 MG TABLET (FP) ONE (16:28)
[2017-07-01] MEDS ORDERED: METOPROLOL TARTRATE 50 MG TABLET (FP) ONE (16:29)
--- NOTE | 2017-07-01 16:43 | PDOC ---
History of Present Illness - General Chief Complaint: Shortness of Breath Stated Complaint: SENT BY PCP Time Seen by Provider: 07/01/17 14:32 - History of Present Illness Initial Comments: 07/01/17 16:37 "82 year old male with history of hypertension, CHF, COPD, Alzheimer's dementia , brought in by for evaluation of elevated blood pressure noted at home today. The patient was recently admitted to the hospital for bronchitis, acute COPD and CHF exacerbation, and discharged approximately 1 week ago. Per the patient's at bedside, the patient has been taking his newly changed medications, but she has not given him his old prescriptions, including his anti -hypertensives, due to confusion on the 's part. Today, he was noted to have elevated BP. The visiting nurse called Dr. Delcid, pt's PMD, and expressed concern that he may be congested". Pt was then instructed to come to the ED for evaluation. The patient does endorse chronic cough and bilateral lower extremity edema which has been unchanged since discharge. Otherwise he denies any physical complaints. No chest pain. No headache, blurred vision, paresthesias, or focal weakness. No nauea, vomiting, or diaphoresis. No MANLEY. PCP: Dr. Gini Delcid" Past History - Past Medical History Allergies/Adverse Reactions: Allergies Allergy/AdvReac Type Severity Reaction Status Date / Time No Known Allergies Allergy Verified 07/01/17 14:32 Home Medications: Ambulatory Orders Finasteride [Proscar -] 5 mg PO DAILY tablet 12/25/16 Amlodipine Besylate [Norvasc -] 10 mg PO DAILY #0 tablet 06/26/17 Aspirin [ASA -] 81 mg PO DAILY #90 tab 06/26/17 Budesonide/Formeterol Fumarate [SYMBICORT 160/4.5mcg -] 1 puff IH BID #1 inhaler 06/26/17 Furosemide [Lasix -] 40 mg PO DAILY #30 tablet 06/26/17 Magnesium Oxide [Mag-Ox -] 400 mg PO BID #0 tablet 06/26/17 Metoprolol Tartrate [Lopressor -] 50 mg PO BID #0 tablet 06/26/17 Mirtazapine [Remeron -] 15 mg PO HS #0 tablet 06/26/17 Montelukast Na [Singulair -] 10 mg PO HS #30 tablet 06/26/17 Pantoprazole Sodium [Protonix -] 40 mg PO DAILY #20 tablet.ec 06/26/17 Potassium Chloride 10 meq PO DAILY #30 capsule.er 06/26/17 Tamsulosin HCl [Flomax -] 0.4 mg PO DAILY@0830 #0 cap 06/26/17 Cephalexin [Keflex] 500 mg PO Q12H #12 capsule MDD 2 06/27/17 Prednisone See Taper PO DAILY #12 tablet MDD 3 06/27/17 Tiotropium [place] [Spiriva] 1 inh IH DAILY 30 Days #1 inh MDD 1 06/27/17 Anemia: No Asthma: Yes Cancer: No Cardiac Disorders: Yes (AAA) CVA: Yes (Mild R hemiparesis) COPD: Yes CHF: No Dementia: Yes Diabetes: Yes (Borderline) GI Disorders: Yes (obstruction) Disorders: Yes (BPH) HTN: Yes Hypercholesterolemia: Yes Liver Disease: No Seizures: No Thyroid Disease: No - Surgical History Abdominal Surgery: Yes (g.tube) Appendectomy: No Cardiac Surgery: No Cholecystectomy: No Lung Surgery: Yes (chest tube for pneumothorax) Neurologic Surgery: No - Immunization History Immunization Up to Date: Yes - Suicide/Smoking/Psychosocial Hx Smoking Status: Yes Smoking History: Former smoker Have you smoked in the past 12 months: No Number of Cigarettes Smoked Daily: 10 If you are a former smoker, when did you quit?: 2016 Information on smoking cessation initiated: No 'Breaking Loose' booklet given: 03/03/16 Hx Alcohol Use: No Drug/Substance Use Hx: No Substance Use Type: None Hx Substance Use Treatment: No Review of Systems - Review of Systems Comments:: 07/01/17 16:44 "GENERAL/CONSTITUTIONAL: No fever or chills. No weakness. HEAD, EYES, EARS, NOSE AND THROAT: No change in vision. No ear pain or discharge. No sore throat. CARDIOVASCULAR: No chest pain or shortness of breath. RESPIRATORY: +Cough. No wheezing, or hemoptysis. GASTROINTESTINAL: No nausea, vomiting, diarrhea or constipation. GENITOURINARY: No dysuria, frequency, or change in urination. MUSCULOSKELETAL: No joint or muscle swelling or pain. No neck or back pain. SKIN: No rash NEUROLOGIC: No headache, vertigo, loss of consciousness, or change in strength/ sensation. ENDOCRINE: No increased thirst. No abnormal weight change. HEMATOLOGIC/LYMPHATIC: No anemia, easy bleeding, or history of blood clots. ALLERGIC/IMMUNOLOGIC: No hives or skin allergy." *Physical Exam - Vital Signs Last Vital Signs Temp Pulse Resp BP Pulse Ox 97.8 F 93 H 19 178/87 95 07/01/17 14:32 07/01/17 14:32 07/01/17 14:32 07/01/17 14:32 07/01/17 16:20 - Physical Exam Comments: 07/01/17 16:44 "GENERAL: Awake, alert, and fully oriented, in no acute distress HEAD: No signs of trauma EYES: PERRLA, EOMI, sclera anicteric, conjunctiva clear ENT: Auricles normal inspection, hearing grossly normal, nares patent, oropharynx clear without exudates. Moist mucosa NECK: Nontender, no stepoffs, Normal ROM, supple, no lymphadenopathy, JVD, or masses LUNGS: Breath sounds equal, clear to auscultation bilaterally. No wheezes, and no crackles HEART: Regular rate and rhythm, normal S1 and S2, no murmurs, rubs or gallops ABDOMEN: Soft, nontender, normoactive bowel sounds. No guarding, no rebound. No masses EXTREMITIES: 1+ bilateral lower extremity edema. Normal range of motion. No clubbing or cyanosis. No cords, erythema, or tenderness NEUROLOGICAL: Cranial nerves II through XII intact. 5/5 strength and sensation in all extremities, Normal speech, normal gait, normal cerebellar function SKIN: Warm, Dry, normal turgor, no rashes or lesions noted. " Heart Score/ECG Review - ECG Impressions Comment:: 07/01/17 16:44 NSR, no ADALBERTO/STDs, no TWIs, [place] wnl, QTc 466 ED Treatment Course - LABORATORY CBC & Chemistry Diagram: 07/01/17 15:01 07/01/17 15:01 - ADDITIONAL ORDERS Additional order review: Laboratory Results 07/01/17 07/01/17 15:01 15:01 Sodium 136 Potassium 4.0 Chloride 97 L Carbon Dioxide 31 Anion Gap 8 BUN 12 D Creatinine 0.9 Creat Clearance w eGFR > 60 Random Glucose 120 H Calcium 8.8 Total Bilirubin 0.5 AST 26 ALT 41 D Alkaline Phosphatase 84 Creatine Kinase 91 Troponin I < 0.02 B-Natriuretic Peptide 237.87 Total Protein 7.1 Albumin 3.4 07/01/17 15:01 RBC 5.03 MCV 81.8 MCHC 32.7 RDW 15.6 MPV 6.8 L Neutrophils % 84.6 H Lymphocytes % 8.3 Monocytes % 6.7 Eosinophils % 0.1 D Basophils % 0.3 D - Medications Given in the ED: ED Medications Discontinued Medications Generic Name Dose Route Start Last Admin Trade Name Mina PRN Reason Stop Dose Admin Amlodipine Besylate 10 mg 07/01/17 16:05 07/01/17 16:32 Norvasc - PO 07/01/17 16:06 10 mg ONCE ONE Administration Metoprolol Tartrate 50 mg 07/01/17 16:05 07/01/17 16:32 Lopressor - PO 07/01/17 16:06 50 mg ONCE ONE Administration Medical Decision Making - Medical Decision Making 07/01/17 16:47 82 M presenting to ED with elevated BP at home. Asymptomatic in ED other than chronic cough and unchanged BLE swelling. Given recent admission for CHF, will send cardiac enzymes and BNP, though pt with no clinical signs of worsening overload. Pt's elevated BP is likely 2/2 medication non-compliance due to being confused about medication regimen. - Labs, trop, BNP - CXR - Restart home metoprolol and norvasc 07/01/17 17:[address] Delcid, who states that if pt's labs and imaging are wnl, he can be discharged and f/u with PMD in office. 07/01/17 17:57 Rpt BP 155/82 Pt continues to feel well, with no complaints. Pt is well appearing, with normal vitals. Clinically stable for DC at this time. I discussed the physical exam findings, ancillary test results and final diagnoses with the patient. I answered all of the patient's questions. The patient was satisfied with the care received and felt comfortable with the discharge plan and treatment plan. The patient agrees to follow up with the primary care physician within 24-72 hours. *DC/Admit/Observation/Transfer Diagnosis at time of Disposition: HTN (hypertension) - Discharge Dispostion Disposition: HOME - Referrals Referrals: Gini Delcid [Primary Care Provider] - - Patient Instructions Printed Discharge Instructions: High Blood Pressure Additional Instructions: Continue taking all your medications as prescribed, including the metoprolol and norvasc. Follow up with Dr. Delcid within 1 week. If you experience any chest pain, shortness of breath, leg swelling, or any other concerning symptoms, return to the ER immediately. - Post Discharge Activity - Attestations Physician Attestion: 07/01/17 17:31 I, Dr. Jeet Landeros MD, attest that this document has been prepared under my direction and personally reviewed by me in its entirety. I further attest, that it accurately reflects all work, treatment, procedures and medical decision -making performed by me.
[2017-07-01 18:00] VITALS: BP 155/82; PULSE 79
--- NOTE | 2017-07-02 09:38 | EKG ---
Test Reason : Blood Pressure : / mmHG Vent. Rate : 086 BPM Atrial Rate : 086 BPM P-R Int : 182 ms QRS Dur : 082 ms QT Int : 390 ms P-R-T Axes : 044 012 046 degrees QTc Int : 466 ms POOR DATA QUALITY, INTERPRETATION MAY BE ADVERSELY AFFECTED SINUS RHYTHM WITH OCCASIONAL PREMATURE VENTRICULAR COMPLEXES INFERIOR INFARCT (CITED ON OR BEFORE 23-JUN-2017) ABNORMAL ECG WHEN COMPARED WITH ECG OF 23-JUN-2017 11:55, PREMATURE VENTRICULAR COMPLEXES ARE NOW PRESENT Confirmed by BURTON HOOKS MD ([id number]) on 07/02/2017 9:38:17 AM Referred By: Confirmed By:BURTON HOOKS MD
== END 2017-07-01 18:07 | disposition home or self-care (01) ==
LOC: JER 14:28
DX: I10 Essential (primary) hypertension (principal); I50.9 Heart failure, unspecified; J44.9 Chronic obstructive pulmonary disease, unspecified; E11.9 Type 2 diabetes mellitus without complications; E78.00 Pure hypercholesterolemia, unspecified; N40.0 Benign prostatic hyperplasia without lower urinary tract symptoms; G30.0 Alzheimer's disease with early onset; F02.80 Dementia in other diseases classified elsewhere, unspecified severity, without behavioral disturbance, psychotic disturbance, mood disturbance, and anxiety; I69.851 Hemiplegia and hemiparesis following other cerebrovascular disease affecting right dominant side; Z86.79 Personal history of other diseases of the circulatory system
CPT/HCPCS: 36415; 71045-TC-FY; 80053; 82550; 83880; 84484; 85025; 93005; 93010; 99283-25

== ENCOUNTER 2018-10-06 13:31 | Inpatient (IN) | payer OTHER, BC ==
--- NOTE | 2018-10-06 13:41 | PDOC ---
Rapid Medical Evaluation Chief Complaint: Edema Time Seen by Provider: 10/06/18 13:36 Medical Evaluation: Allergies Allergy/AdvReac Type Severity Reaction Status Date / Time No Known Allergies Allergy Verified 10/06/18 13:35 10/06/18 13:36 I have performed a brief in-person evaluation of this patient. The patient presents with a chief complaint of: h/o chronic peripheral venous insufficiency with chronic pheripheral edema on Lasix present with complains of persistent swelling to b/l Lower legs. Pt family report they where told by vascular for admission for IV Tx if persistent leg swelling Pertinent physical exam findings: A&O x 3. moderate B/L lower leg pitting edema with dry skin I have ordered the following: EKG, CBC, CMP, BNP The patient will proceed to the ED for further evaluation. Discharge Disposition - Diagnosis Venous insufficiency CHF (congestive heart failure) Qualifiers: Heart failure type: unspecified Heart failure chronicity: chronic Qualified Code(s): I50.9 - Heart failure, unspecified - Discharge Dispostion Condition at time of disposition: Stable - Referrals - Patient Instructions - Post Discharge Activity
[2018-10-06 16:43] LABS: BASO % 0.8 % (0-2.0); EOS % 6.5 % (0-4.5); HEMATOCRIT 45.6 % (35.4-49); HEMOGLOBIN 14.7 GM/dL (11.7-16.9); LYMPH % 21.8 % (8-40); MCH 27.5 pg (25.7-33.7); MCHC 32.3 g/dl (32.0-35.9); MEAN CELL VOLUME 85.2 fl (80-96); MEAN PLT VOLUME 6.8 fl (7.5-11.1); MONO % 10.1 % (3.8-10.2); NEUT % 60.8 % (42.8-82.8); PLATELET COUNT 313 K/MM3 (134-434); RBC 5.35 M/mm3 (4.00-5.60); RDW 14.4 % (11.9-15.9); WHITE BLOOD COUNT 7.6 K/mm3 (4.0-10.0)
--- NOTE | 2018-10-06 16:48 | EKG ---
Test Reason : Blood Pressure : / mmHG Vent. 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 RATE HAS DECREASED BY 31 BPM Confirmed by LEI JUAN MD ([id number]) on 10/06/2018 4:48:46 PM Referred By: Confirmed By:LEI JUAN MD
--- NOTE | 2018-10-06 16:51 | PDOC ---
History of Present Illness - General Chief Complaint: Edema Stated Complaint: MARIAJOSE LEG EDEMA Time Seen by Provider: 10/06/18 13:36 - History of Present Illness Initial Comments: Adair Haddad is an 83yo man with a PMH of COPD, CHF, HTN who presents to the ED reporting worsening BLE edema and shortness of breath. Per his and daughter , he saw his PMD (Dr Delcid) last week Wednesday regarding the leg swelling. His lasix dose was increased, and they were told that if the swelling did not improve within about 5 days that he should present to the ED. They decided today that they had given the diuretic enough time, but they have no noticed any improvement. Mr Haddad reports chronic leg swelling, but he and his family say that it has gotten worse over the past few months. He has been trying to keep his legs elevated, but "less that he is supposed to" and generally does not wear the recommended compression socks. In addition to the swelling, he has become increasingly short of breath. His daughter is currently visiting from out of town, and she reports that when she visited about 6 months ago he could walk about a block without becomiing overly SOB. Currently he is only able to walk about 20ft. His feels that this started to worsen about 6 weeks ago. She also notes that Mr Haddad has been requesting his home O2 and nebulizers much more than he used to. He "does not move around much" usually, but he uses 2L oxygen now with any activity. He is unsure whether the nebulizers help, but he does feel better with the supplemental O2. Mr Haddad additionally reports a more frequent cough, but he has not noticed any increased sputum or change in color. He denies fever, chest pain, change in diet, or known sick contacts. Past History - Past Medical History Allergies/Adverse Reactions: Allergies Allergy/AdvReac Type Severity Reaction Status Date / Time No Known Allergies Allergy Verified 10/06/18 13:35 Home Medications: Ambulatory Orders Finasteride [Proscar -] 5 mg PO DAILY tablet 12/25/16 Amlodipine Besylate [Norvasc -] 10 mg PO DAILY #0 tablet 06/26/17 Aspirin [ASA -] 81 mg PO DAILY #90 tab 06/26/17 Budesonide/Formeterol Fumarate [SYMBICORT 160/4.5mcg -] 1 puff IH BID #1 inhaler 06/26/17 Magnesium Oxide [Mag-Ox -] 400 mg PO BID #0 tablet 06/26/17 Metoprolol Tartrate [Lopressor -] 50 mg PO BID #0 tablet 06/26/17 Mirtazapine [Remeron -] 15 mg PO HS #0 tablet 06/26/17 Montelukast Na [Singulair -] 10 mg PO HS #30 tablet 06/26/17 Pantoprazole Sodium [Protonix -] 40 mg PO DAILY #20 tablet.ec 06/26/17 Potassium Chloride 10 meq PO DAILY #30 capsule.er 06/26/17 Tamsulosin HCl [Flomax -] 0.4 mg PO DAILY@0830 #0 cap 06/26/17 Tiotropium [place] [Spiriva] 1 inh IH DAILY 30 Days #1 inh MDD 1 06/27/17 Furosemide [Lasix -] 100 mg PO DAILY 10/06/18 Mirabegron [Myrbetriq] 25 mg PO DAILY 10/06/18 Anemia: No Asthma: Yes Cancer: No Cardiac Disorders: Yes (AAA) CVA: Yes (Mild R hemiparesis) COPD: Yes CHF: No Dementia: Yes Diabetes: Yes (Borderline) GI Disorders: Yes (obstruction) Disorders: Yes (BPH) HTN: Yes Hypercholesterolemia: Yes Liver Disease: No Seizures: No Thyroid Disease: No - Surgical History Abdominal Surgery: Yes (g.tube) Appendectomy: No Cardiac Surgery: No Cholecystectomy: No Lung Surgery: Yes (chest tube for pneumothorax) Neurologic Surgery: No - Immunization History Immunization Up to Date: Yes - Suicide/Smoking/Psychosocial Hx Smoking Status: Yes Smoking History: Former smoker Have you smoked in the past 12 months: No Number of Cigarettes Smoked Daily: 10 If you are a former smoker, when did you quit?: 2016 Information on smoking cessation initiated: No 'Breaking Loose' booklet given: 03/03/16 Hx Alcohol Use: No Drug/Substance Use Hx: No Substance Use Type: None Hx Substance Use Treatment: No Review of Systems - Review of Systems Comments:: General: No fevers, no chills, no weight or appetite change, no malaise HEENT: No changes in vision, no changes in hearing, no congestion, no sore throat CV: No chest pain, no palpitations, + LE edema, +orthopnea, +SMART Pulm: + SOB, + cough, no wheezing GI: No nausea or vomiting, no change in bowel habits, no melena : No frequency, no urgency, no dysuria Musc: No back pain, no joint swelling, no recent injury Skin: No rash, no lesions, no erythema Endo: No excessive thirst, no heat/cold intolerance Heme: No unusual bruising or bleeding, no swollen glands Neuro: No syncope, no numbness/tingling, no focal weakness Vasc: No claudication Psych: No recent change in mood, no SI or HI *Physical Exam - Vital Signs Last Vital Signs Temp Pulse Resp BP Pulse Ox 97.8 F 63 20 132/62 93 L 10/06/18 13:40 10/06/18 13:40 10/06/18 13:40 10/06/18 13:40 10/06/18 13:40 - Physical Exam Comments: General: Comfortable, no acute distress HEENT: PERRL, EOMI, MMM, voice normal, normal neck ROM Cards: RRR, no murmur appreciated Pulm: Comfortable on room air, clear to auscultation bilaterally, no crackles or wheezing, diminished breath sounds Abd: Soft, nontender, nondistended Ext: Atraumatic. 3+ BLE edema. ROM intact. Vasc: Extremities WWP. Skin: Normal color, no rashes or lesions Neuro: A&Ox3, CN grossly intact, normal speech, motor/sensory grossly intact and symmetric Psych: Mood appropriate to situation ED Treatment Course - LABORATORY CBC & Chemistry Diagram: 10/06/18 16:33 10/06/18 18:24 - ADDITIONAL ORDERS Additional order review: 10/06/18 16:33 RBC 5.35 MCV 85.2 MCHC 32.3 RDW 14.4 MPV 6.8 L Neutrophils % 60.8 D Lymphocytes % 21.8 D Monocytes % 10.1 Eosinophils % 6.5 H D Basophils % 0.8 - RADIOLOGY Radiology Studies Ordered: Category Date Time Status CHEST PA & LAT [RAD] Stat Radiology 10/06/18 16:28 Ordered Medical Decision Making - Medical Decision Making 10/06/18 16:44 Adair Haddad is an 83yo man with a PMH of COPD, CHF, HTN, Alzheimers who presents with BLE edema, SMART that have worsened over the past ~ 6 weeks as well as increased use of his home O2 and nebulizers. Per family, there has been no improvement with increased dose of lasix given last week by Dr Delcid. - Suspect CHF exacerbation, but could be worsening COPD - CBC, CMP, BNP ordered in RME - CXR added for evaluation 10/06/18 19:30 - Labs completed. No remarkable abnormalities. BNP 131 - CXR without acute changes - Will call Dr Delcid regarding dispo 10/06/18 19:48 - Spoke to Dr Delcdi. Reports that she has seen him multiple times and given meds for both COPD and CHF without improvement. Will admit to med/surg on her service for additional management. Discussed with Dr Rodriguez. Valeria Hernandez PGY1 *DC/Admit/Observation/Transfer Diagnosis at time of Disposition: Venous insufficiency CHF (congestive heart failure) Qualifiers: Heart failure type: unspecified Heart failure chronicity: chronic Qualified Code(s): I50.9 - Heart failure, unspecified - Discharge Dispostion Condition at time of disposition: Stable Decision to Admit order: Yes - Referrals - Patient Instructions - Post Discharge Activity
--- NOTE | 2018-10-06 18:14 | PDOC ---
Documentation entered by Linette Contreras SCRIBE, acting as scribe for Jt Rodriguez MD. Jt Rodriguez MD: This documentation has been prepared by the valorieibe, Linette Contreras SCRIBE, under my direction and personally reviewed by me in its entirety. I confirm that the documentation accurately reflects all work, treatment, procedures, and medical decision making performed by me. Attending Attestation - Resident Resident Name: DavidValeria - ED Attending Attestation I have performed the following: I have examined & evaluated the patient, The case was reviewed & discussed with the resident, I agree w/resident's findings & plan, Exceptions are as noted - HPI HPI: 10/06/18 17:30 The patient is an 83-year-old male with a past medical history significant for HTN, COPD, CHF, dementia, and chronic bilateral pitting edema presents to the emergency department with shortness of breath and lower extremity edema. The patient presents with worsening shortness of breath and non-improving bilateral lower extremity edema despite 100mg PO Lasix and leg elevation. The patient reports she was seen by Dr. Delcid (PCP) on 09/27, who increased PO lasix to 100 mg once a day. The patient reports an additional complaint of 6 weeks of worsening shortness of breath. Per family at bedside, the patient been using his home O2 and nebulizer more than usual for the past 6 weeks. Per daughter at bedside, she reports she visits her father every 6 months. Daughter reports she had noticed an increase in exertional dyspnea, state 6 months ago he was able to ambulate further compared to now. The patient reports PCP instructed him, that is symptoms doesnt improve, follow up at the ER for IV diuretic use. Allergies: NKDA Past Surgical History: Chest tube for pneumothorax, G-tube for dysphagia Social History: Former smoker(Quit 2011). No ETOH or recreational drug use. PCP: Dr. Delcid. - Physicial Exam PE: 10/06/18 17:30 agree with resident exam - Medical Decision Making 10/06/18 17:40 83yo M presents to the ED with progressive SOB and LE edema despite compliance with outpt lasix Pt sent in for admission for IV diuresis by Dr. Delcid O2 sat on RA mildly low at 93, remaining vitals wnl Exam with diminished BS, no wheezing EKG non ischemic DDx includes CHF vs COPD vs ACS vs PNA Story most consistent with CHF given increasing leg swelling, SMART, diminished BS Ulikely COPD as not wheezing If w/u not revealing for CHF, will consider w/u for PE 10/06/18 19:00 Labs unremarkable CXR clear Lung exam with no wheezing CTA ordered to r/o PE Dr. Jose Antonio Delcid aware of pt, will admit him Heart Score/ECG Review #1 10/07/18 00:28 My EKG read: Sinus bradycardia, rate 55, 1st degree AV block. Normal axis. No ADALBERTO or TWI
[2018-10-06 19:12] LABS: ALBUMIN 3.7 g/dl (3.4-5.0); BILIRUBIN,TOTAL 1.3 mg/dL (0.2-1); CALCIUM 9.8 mg/dL (8.5-10.1); CREATININE 0.9 mg/dL (0.55-1.3); N-TERMINAL BNP 131.1 pg/ml (5-450); POTASSIUM 4.1 mmol/L (3.5-5.1); TOT PROT 7.2 g/dl (6.4-8.2)
--- NOTE | 2018-10-06 20:08 | HP ---
Admitting History and Physical - Primary Care Physician PCP: Gini Delcid S - Admission Chief Complaint: SOB, legs edema History of Present Illness: The patient is an 83-year-old male with a past medical history significant for HTN, COPD, CHF, dementia, prostate CA, and chronic bilateral pitting edema presents to the emergency department with shortness of breath and lower extremity edema. The patient presents with worsening shortness of breath and non -improving bilateral lower extremity edema despite 100mg PO Lasix and leg elevation. I saw pt twice in the last month in office and I increased PO lasix to 100 mg once a day, [facility] also [facility]. The patient reports an additional complaint of 6 weeks of worsening shortness of breath. Per family at bedside, the patient been using his home O2 and nebulizer more than usual for the past 6 weeks. Per daughter at bedside, she reports she visits her father every 6 months. Daughter reports she had noticed an increase in exertional dyspnea, stated 6 months ago he was able to ambulate further compared to now. 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 Cardiovascular: Yes: CHF, HTN, Hyperlipdemia Pulmonary: Yes: COPD Gastrointestinal: Yes: Constipation, Other (SBO SB benign mass, s/p resection) Renal/: Yes: BPH, Cancer (prostate) Musculoskeletal: Yes: Hemiparesis - Smoking History Smoking history: Former smoker Have you smoked in the past 12 months: No Aproximately how many cigarettes per day: 10 If you are a former smoker, when did you quit?: 2016 - Alcohol/Substance Use Hx Alcohol Use: No History of Substance Use: reports: None - Social History Usual Living Arrangement: Yes: With Spouse ADL: Independent Occupation: retired from [employer] History of Recent Travel: No Home Medications - Allergies Allergies/Adverse Reactions: Allergies Allergy/AdvReac Type Severity Reaction Status Date / Time No Known Allergies Allergy Verified 10/06/18 13:35 - Home Medications Home Medications: Ambulatory Orders Finasteride [Proscar -] 5 mg PO DAILY tablet 12/25/16 Amlodipine Besylate [Norvasc -] 10 mg PO DAILY #0 tablet 06/26/17 Aspirin [ASA -] 81 mg PO DAILY #90 tab 06/26/17 Budesonide/Formeterol Fumarate [SYMBICORT 160/4.5mcg -] 1 puff IH BID #1 inhaler 06/26/17 Magnesium Oxide [Mag-Ox -] 400 mg PO BID #0 tablet 06/26/17 Metoprolol Tartrate [Lopressor -] 50 mg PO BID #0 tablet 06/26/17 Mirtazapine [Remeron -] 15 mg PO HS #0 tablet 06/26/17 Montelukast Na [Singulair -] 10 mg PO HS #30 tablet 06/26/17 Pantoprazole Sodium [Protonix -] 40 mg PO DAILY #20 tablet.ec 06/26/17 Potassium Chloride 10 meq PO DAILY #30 capsule.er 06/26/17 Tamsulosin HCl [Flomax -] 0.4 mg PO DAILY@0830 #0 cap 06/26/17 Tiotropium [place] [Spiriva] 1 inh IH DAILY 30 Days #1 inh MDD 1 06/27/17 Furosemide [Lasix -] 100 mg PO DAILY 10/06/18 Mirabegron [Myrbetriq] 25 mg PO DAILY 10/06/18 Family Disease History - Family Disease History Family Disease History: Heart Disease: Brother (congestive heart failure), Other : Father (lived to 99), Mother (lived to her 70's) Review of Systems - Review of Systems Constitutional: reports: Loss of Appetite, Weakness (general). denies: Chills, Fever, Lethargy HENT: denies: Difficult Swallowing, Ear Discharge, Ear Pain, Epistaxis Neck: denies: Decreased ROM, Stiffness, Tenderness Cardiovascular: reports: Edema, Shortness of Breath. denies: Chest Pain, Palpitations Respiratory: reports: Exercise Intolerance, SOB, SOB on Exertion. denies: Cough , Hemoptysis, Orthopnea, PND, Wheezing Gastrointestinal: denies: Abdominal Pain, Bloating, Constipation, Diarrhea, Rectal Bleeding, Vomiting Genitourinary: denies: Dysuria, Flank Pain, Hematuria Musculoskeletal: denies: Back Pain, Joint Swelling Neurological: reports: Unsteady Gait, Weakness (general). denies: Change in LOC , Change in Speech, Confusion, Dizziness, Headache, Seizure, Syncope Hematology/Lymphatic: denies: Easily Bruised, Excessive Bleeding, Swollen Glands Psychiatric: denies: Altered Sleep Pattern, Anxiety, Depression Physical Examination Vital Signs: Vital Signs Temperature 97.8 F 10/06/18 13:40 Pulse Rate 63 10/06/18 13:40 Respiratory Rate 20 10/06/18 13:40 Blood Pressure 132/62 10/06/18 13:40 O2 Sat by Pulse Oximetry (%) 93 L 10/06/18 13:40 Constitutional: Yes: No Distress, Calm Eyes: Yes: Conjunctiva Clear HENT: Yes: Atraumatic Neck: Yes: Supple Cardiovascular: Yes: Regular Rate and Rhythm Respiratory: Yes: CTA Bilaterally Gastrointestinal: Yes: Soft. No: Tenderness Renal/: No: CVA Tenderness - Left, CVA Tenderness - Right Musculoskeletal: No: Joint Stiffness, Joint Swelling Extremities: No: Cold, Cool, Cyanosis Edema: Yes (2-3 + bilat ) Integumentary: No: Rash, Venous Stasis Changes Neurological: Yes: WNL, Alert, Oriented ...Motor Strength: WNL Psychiatric: Yes: WNL, Alert, Oriented. No: Agitated, Suicidal Ideation Labs: CBC, BMP 10/06/18 16:33 10/06/18 18:24 Imaging - Results Chest X-ray: Report Reviewed Other: Report Reviewed Assessment/Plan The patient is an 83-year-old male with a past medical history significant for HTN, COPD, CHF, dementia, prostate CA and chronic bilateral pitting edema presents to the emergency department with shortness of breath and worsening bilateral lower extremity edema despite increasing diuretic dose recently and recent po ATB; admit for further management; cardiology / pulmonary and renal eval iv lasix f/u labs falls DVT pfx d/w pt do not get OOB alone call for help if needs OOB to prevent falls d/w pt and staff
[2018-10-07] MEDS ORDERED: METOPROLOL TARTRATE 50 MG TABLET (FP) ONE (00:06)
[2018-10-07] MEDS ORDERED: MAGNESIUM OXIDE 400 MG TABLET (FP) ONE (00:06)
[2018-10-07] MEDS ORDERED: MONTELUKAST NA 10 MG TABLET ONE (00:07)
[2018-10-07] MEDS ORDERED: HEPARIN NA (PORCINE) 5,000 UNITS/ML 1ML VIAL ONE (00:07)
[2018-10-07] MEDS ORDERED: MIRTAZAPINE 15 MG TABLET (FP) ONE (00:07)
[2018-10-07] MEDS ORDERED: methylPREDNISolone NA SUCC 40 MG/1 ML VIAL ONE (00:08)
[2018-10-07] MEDS: HEPARIN NA (PORCINE) 5,000 UNITS/ML 1ML VIAL SQ SCH ×3 (00:16→21:40)
[2018-10-07] MEDS: METOPROLOL TARTRATE 50 MG TABLET (FP) PO SCH ×3 (00:16→21:40)
[2018-10-07] MEDS: MAGNESIUM OXIDE 400 MG TABLET (FP) PO SCH ×3 (00:16→21:40)
[2018-10-07] MEDS: MIRTAZAPINE 15 MG TABLET (FP) PO SCH ×2 (00:16→21:40)
[2018-10-07] MEDS: methylPREDNISolone NA SUCC 40 MG/1 ML VIAL IVPUSH SCH ×3 (00:16→21:40)
[2018-10-07] MEDS: MONTELUKAST NA 10 MG TABLET PO SCH ×2 (00:17→21:40)
[2018-10-07] MEDS: BUDESONIDE/FORMETEROL FUMARATE 160/4.5 mcg INHALER IH SCH ×3 (00:46→21:52)
[2018-10-07] MEDS ORDERED: amLODIPine BESYLATE 5 MG TABLET (FP) PO ONE (02:15)
[2018-10-07 02:40] VITALS: BMI 21.6
[2018-10-07] MEDS ORDERED: FUROSEMIDE 40 MG/4 ML INJECTABLE VIAL IVPUSH SCH (06:00)
[2018-10-07 08:04] LABS: BASO % 0.4 % (0-2.0); EOS % 0.3 % (0-4.5); HEMATOCRIT 54.6 % (35.4-49); LYMPH % 14.1 % (8-40); MCH 26.5 pg (25.7-33.7); MEAN CELL VOLUME 85.4 fl (80-96); MEAN PLT VOLUME 6.8 fl (7.5-11.1); NEUT % 84.2 % (42.8-82.8); PLATELET COUNT 324 K/MM3 (134-434); RDW 14.6 % (11.9-15.9); WHITE BLOOD COUNT 7.9 K/mm3 (4.0-10.0)
[2018-10-07 09:20] LABS: ALBUMIN 4.2 g/dl (3.4-5.0); BILIRUBIN,DIRECT 0.4 mg/dL (0.0-0.2); BILIRUBIN,TOTAL 1.7 mg/dL (0.2-1); CALCIUM 10.3 mg/dL (8.5-10.1); CREATININE 0.9 mg/dL (0.55-1.3); POTASSIUM 4.1 mmol/L (3.5-5.1); TOT PROT 8.5 g/dl (6.4-8.2)
[2018-10-07] MEDS: FUROSEMIDE 40 MG/4 ML INJECTABLE VIAL IVPUSH SCH (09:25)
[2018-10-07] MEDS: TAMSULOSIN HCL 0.4 MG CAP PO SCH (09:29)
[2018-10-07] MEDS: PANTOPRAZOLE 40 MG TABLET (FP) PO SCH (09:34)
[2018-10-07] MEDS: FINASTERIDE 5 MG TABLET (FP) PO SCH (09:34)
[2018-10-07] MEDS: ASPIRIN 81 MG CHEWABLE TABLETS PO SCH (09:34)
[2018-10-07] MEDS: POTASSIUM CHLORIDE TABS 10 MEQ TABLET.ER (FP) PO SCH (09:34)
[2018-10-07] MEDS: amLODIPine BESYLATE 10 MG TABLET (FP) PO SCH (09:34)
[2018-10-07] MEDS ORDERED: PATIENT'S OWN MEDICATION (NON-FORMULARY) (Mirabegron [Myrbetriq] 25 MG) PO SCH (10:00)
--- NOTE | 2018-10-07 11:51 | PN ---
Progress Note, Physician Chief Complaint: in bed NAD no new c/o less SOB, urinated a lot; less legs edema - Current Medication List Current Medications: Active Medications Amlodipine Besylate (Norvasc -) 10 mg PO DAILY [facility] Last Admin: 10/07/18 09:34 Dose: 10 mg Aspirin (Asa -) 81 mg PO DAILY [facility] Last Admin: 10/07/18 09:34 Dose: 81 mg Budesonide/Formoterol Fumarate (Symbicort 160/4.5mcg -) 2 puff IH BID [facility] Last Admin: 10/07/18 00:46 Dose: 2 puff Finasteride (Proscar -) 5 mg PO DAILY [facility] Last Admin: 10/07/18 09:34 Dose: 5 mg Furosemide (Lasix Injection -) 40 mg IVPUSH DAILY [facility] Last Admin: 10/07/18 09:25 Dose: Not Given Heparin Sodium (Porcine) (Heparin -) 5,000 unit SQ BID [facility] Last Admin: 10/07/18 09:33 Dose: 5,000 unit Magnesium Oxide (Mag-Ox -) 400 mg PO BID [facility] Last Admin: 10/07/18 09:34 Dose: 400 mg Methylprednisolone Sodium Succinate (Solu-Medrol -) 40 mg IVPUSH BID [facility] Last Admin: 10/07/18 09:33 Dose: 40 mg Metoprolol Tartrate (Lopressor -) 50 mg PO BID [facility] Last Admin: 10/07/18 09:34 Dose: 50 mg Mirtazapine (Remeron -) 15 mg PO [facility] Last Admin: 10/07/18 00:16 Dose: 15 mg Montelukast Sodium (Singulair -) 10 mg PO [facility] Last Admin: 10/07/18 00:17 Dose: 10 mg Non-Formulary Medication (Mirabegron [Myrbetriq]) 25 mg PO DAILY [facility] Pantoprazole Sodium (Protonix -) 40 mg PO DAILY [facility] Last Admin: 10/07/18 09:34 Dose: 40 mg Potassium Chloride (K-Dur -) 10 meq PO DAILY [facility] Last Admin: 10/07/18 09:34 Dose: 10 meq Tamsulosin HCl (Flomax -) 0.4 mg PO DAILY@0830 [facility] Last Admin: 10/07/18 09:29 Dose: 0.4 mg Tiotropium [place] (Spiriva Respimat) 2 puff IH DAILY [place] - Objective Vital Signs: Vital Signs Temperature 97.8 F 10/07/18 10:00 Pulse Rate 72 10/07/18 10:00 Respiratory Rate 20 10/07/18 10:00 Blood Pressure 155/80 10/07/18 10:00 O2 Sat by Pulse Oximetry (%) 93 L 10/06/18 13:40 Constitutional: Yes: No Distress, Calm Eyes: Yes: Conjunctiva Clear HENT: Yes: Atraumatic Neck: Yes: Supple Cardiovascular: Yes: Regular Rate and Rhythm Respiratory: Yes: Regular Gastrointestinal: Yes: Soft. No: Tenderness Genitourinary: No: Hematuria Musculoskeletal: No: Joint Stiffness, Joint Swelling Extremities: No: Cold, Cool, Cyanosis Edema: Yes Integumentary: No: Rash, Venous Stasis Changes Neurological: Yes: WNL, Alert, Oriented ...Motor Strength: WNL Psychiatric: Yes: WNL, Alert, Oriented. No: Agitated, Suicidal Ideation Labs: CBC, BMP 10/07/18 07:47 10/07/18 07:47 - ....Imaging Other: Report Reviewed Assessment/Plan The patient is an 83-year-old male with a past medical history significant for HTN, COPD, CHF, dementia, prostate CA and chronic bilateral pitting edema admitted with shortness of breath and worsening bilateral lower extremity edema despite increasing diuretic dose recently and recent po ATB; cardiology / pulmonary and renal eval iv lasix f/u labs falls DVT pfx d/w pt do not get OOB alone call for help if needs OOB to prevent falls d/w pt and staff
[2018-10-07] MEDS ORDERED: PT OWN MED DRAWER 7, Y5N ONE (11:55)
[2018-10-07] MEDS: TIOTROPIUM BROMIDE 2.5 MCG (SPIRIVA) RESPIMAT INHALER IH SCH (11:58)
--- NOTE | 2018-10-07 13:38 | CONSULT ---
Consult - text type - Consultation Consultation Note: Renal Consult for fluid overload/edema management This is a 83 year old gentleman with hx of hypertension, CHF, COPD, LE edema who presents with complaints of LE edema and SOB. Pt seen and examined at the bedside. Feels better now, still has cough that is worse then his baseline. Leg swelling improving. Making more urine with IV lasix. No chest pain, fever, chills, N/V/D, MANLEY, confusion or lethargy. Denies any flank pain, dysuira. Was on Lasix once daily at home. PMhx: as above Allergies: NDKA Family Hx: NC Social Hx: No T/A/D ROS: as per HPI, all other pertinent ros negative Home Medications Medication Instructions Recorded Finasteride [Proscar -] 5 mg PO DAILY tablet 12/25/16 Amlodipine Besylate [Norvasc -] 10 mg PO DAILY #0 tablet 06/26/17 Aspirin [ASA -] 81 mg PO DAILY #90 tab 06/26/17 Budesonide/Formeterol Fumarate 1 puff IH BID #1 inhaler 06/26/17 [SYMBICORT 160/4.5mcg -] Magnesium Oxide [Mag-Ox -] 400 mg PO BID #0 tablet 06/26/17 Metoprolol Tartrate [Lopressor -] 50 mg PO BID #0 tablet 06/26/17 Mirtazapine [Remeron -] 15 mg PO HS #0 tablet 06/26/17 Montelukast Na [Singulair -] 10 mg PO HS #30 tablet 06/26/17 Pantoprazole Sodium [Protonix -] 40 mg PO DAILY #20 tablet.ec 06/26/17 Potassium Chloride 10 meq PO DAILY #30 capsule.er 06/26/17 Tamsulosin HCl [Flomax -] 0.4 mg PO DAILY@0830 #0 cap 06/26/17 Tiotropium [place] [Spiriva] 1 inh IH DAILY 30 Days #1 inh MDD 1 06/27/17 Furosemide [Lasix -] 100 mg PO DAILY 10/06/18 Mirabegron [Myrbetriq] 25 mg PO DAILY 10/06/18 Vital Signs Temperature 97.8 F 10/07/18 10:00 Pulse Rate 72 10/07/18 10:00 Respiratory Rate 20 10/07/18 10:00 Blood Pressure 155/80 10/07/18 10:00 O2 Sat by Pulse Oximetry (%) 90 L 10/07/18 09:00 Intake & Output 10/04/18 10/05/18 10/06/18 10/07/18 23:59 23:59 23:59 23:59 Output Total 600 Balance -600 Weight 62.596 kg 62.596 kg NAD, awake and alert on NC O2 neck supple, no JVD RRR, NO M/R CTA, no rales or wheeze soft NT/ND + LE edema 1/3 up cardoza, no clubbing or cyanosis on focal neurologic deficits CBC, BMP 10/07/18 07:47 10/07/18 07:47 Renal US - 10.3/10.9, right non-obstructing renal calculi CTA Chest - no PE, emphysematous changes Current Medications Amlodipine Besylate (Norvasc -) 10 mg PO DAILY [facility] Last Admin: 10/07/18 09:34 Dose: 10 mg Aspirin (Asa -) 81 mg PO DAILY [facility] Last Admin: 10/07/18 09:34 Dose: 81 mg Budesonide/Formoterol Fumarate (Symbicort 160/4.5mcg -) 2 puff IH BID [facility] Last Admin: 10/07/18 11:57 Dose: 2 puff Finasteride (Proscar -) 5 mg PO DAILY [facility] Last Admin: 10/07/18 09:34 Dose: 5 mg Furosemide (Lasix Injection -) 40 mg IVPUSH DAILY [facility] Last Admin: 10/07/18 09:25 Dose: Not Given Heparin Sodium (Porcine) (Heparin -) 5,000 unit SQ BID [facility] Last Admin: 10/07/18 09:33 Dose: 5,000 unit Magnesium Oxide (Mag-Ox -) 400 mg PO BID [facility] Last Admin: 10/07/18 09:34 Dose: 400 mg Methylprednisolone Sodium Succinate (Solu-Medrol -) 40 mg IVPUSH BID [facility] Last Admin: 10/07/18 09:33 Dose: 40 mg Metoprolol Tartrate (Lopressor -) 50 mg PO BID [facility] Last Admin: 10/07/18 09:34 Dose: 50 mg Mirtazapine (Remeron -) 15 mg PO HS [facility] Last Admin: 10/07/18 00:16 Dose: 15 mg Montelukast Sodium (Singulair -) 10 mg PO HS [facility] Last Admin: 10/07/18 00:17 Dose: 10 mg Non-Formulary Medication (Mirabegron [Myrbetriq]) 25 mg PO DAILY [facility] Pantoprazole Sodium (Protonix -) 40 mg PO DAILY [facility] Last Admin: 10/07/18 09:34 Dose: 40 mg Potassium Chloride (K-Dur -) 10 meq PO DAILY [facility] Last Admin: 10/07/18 09:34 Dose: 10 meq Tamsulosin HCl (Flomax -) 0.4 mg PO DAILY@0830 [facility] Last Admin: 10/07/18 09:29 Dose: 0.4 mg Tiotropium [place] (Spiriva Respimat) 2 puff IH DAILY [facility] Last Admin: 10/07/18 11:58 Dose: 2 puff 83 year old gentleman with hx of hypertension, CHF, COPD, LE edema who presents with complaints of LE edema and SOB. #SOB due to COPD +/- HF #LE edema from HF vs. chronic venous insufficiency #COPD #Hx of HF #? BPH #Hypervolemic Hyponatremia Renal function appears normal and at baseline Check urine protein to Cr ratio to r/o nephrotic range proteinuria as contributor to edema Clinically improving on Lasix 40mg IV daily, if edema does not resolve can consider increasing to BID It may be beneficial to increase outpatient Lasix to BID (i.e. 40-60mg BID) or consider longer acting loop diuretic such as torsemide Trend serum na daily Low salt diet Trend renal function and electrolytes while on IV diuresis Thank you Lucas Fontaine DO
[2018-10-07 14:15] LABS: EPI CELLS 0.4 /HPF (0-5/HPF); HYALINE CASTS 0 /lpf (0-8); PH,URINE 5.5 (5.0-8.0); URINE APPEARANCE CLEAR; URINE BACTERIA 6.4 /hpf (NEGATIVE); URINE BILIRUBIN NEGATIVE (NEGATIVE); URINE COLOR YELLOW; URINE GLUCOSE (UA) NEGATIVE (NEGATIVE); URINE KETONE NEGATIVE (NEGATIVE); URINE LEUK ESTERASE NEGATIVE (NEGATIVE); URINE NITRITE NEGATIVE (NEGATIVE); URINE PROTEIN TRACE (NEGATIVE); URINE RBC 10 /hpf (0-4); URINE UROBILINOGEN 0.2 mg/dL (0.2-1.0); URINE WBC 1 /hpf (0-5)
--- NOTE | 2018-10-07 16:13 | ECHO ---
Name: TOMASZ FRAUSTO Exam:Adult Echocardiogram Study Date: 10/07/2018 02:11 PM Age: 83 yrs Reason For Study: HTN PAD Height: 67 in Weight: 138 lb BSA: 1.7 m2 MMode/2D Measurements & Calculations IVSd: 0.93 cm Ao root diam: 3.5 cm LVIDd: 3.6 cm LVIDs: 2.3 cm LVPWd: 0.97 cm EDV(Teich): 56.2 ml LVOT diam: 2.4 cm ESV(Teich): 18.9 ml Doppler Measurements & Calculations MV E max inocencio: 71.3 cm/sec Ao V2 max: 125.6 cm/sec MV A max inocencio: 102.2 cm/sec Ao max P.3 mmHg MV E/A: 0.70 Ao V2 mean: 93.3 cm/sec MV dec time: 0.25 sec Ao mean P.8 mmHg Ao V2 VTI: 27.9 cm JALEN(I,D): 4.2 cm2 JALEN(V,D): 4.3 cm2 LV V1 max P.1 mmHg SV(LVOT): 118.0 ml LV V1 mean P.8 mmHg LV V1 max: 123.4 cm/sec LV V1 mean: 94.2 cm/sec LV V1 VTI: 27.2 cm PI end-d inocencio: 130.3 cm/sec Med Peak E' Inocencio: 5.6 cm/sec Med E/e': 12.8 Lat Peak E' Inocencio: 7.2 cm/sec Lat E/e': 9.9 Left Ventricle There is mild concentric left ventricular hypertrophy. Left ventricular systolic function is normal. The transmitral spectral Doppler flow pattern is suggestive of impaired LV relaxation. Right Ventricle The right ventricle is normal in size and function. Atria Normal left and right atrial size and function. Mitral Valve The mitral valve is normal in structure and function. There is no mitral valve stenosis. Tricuspid Valve The tricuspid valve is normal in structure and function. No tricuspid regurgitation. Aortic Valve The aortic valve opens well. Pulmonic Valve The pulmonic valve is not well seen, but is grossly normal. There is no pulmonic valvular stenosis. M ild pulmonic valvular regurgitation. Great Vessels The aortic root is normal size. Pericardium/Pleura There is no pericardial effusion. Interpretation Summary There is mild concentric left ventricular hypertrophy. Left ventricular systolic function is normal. The transmitral spectral Doppler flow pattern is suggestive of impaired LV relaxation. The right ventricle is normal in size and function. Mild pulmonic valvular regurgitation. There is no pericardial effusion. MD Oliver *Pasquale 10/07/2018 04:13 PM
--- NOTE | 2018-10-07 16:16 | PN ---
Progress Note (short form) - Note Progress Note: PULMONARY CONSULTATION DICTATED 10/07/18 IMP ACUTE ON CHRONIC HYPOXEMIC RESPIRATORY FAILURE COPD EXACERBATION CHF HTN DEMENTIA PROSTATE CA LLL NODULE UNCHANGED HYPERCALCEMIA ELEVATED BILIRUBIN PLAN IV STEROIDS INHALED BRONCHODILATORS O2 ABX LASIX NEEDED ECHO ABG MONITOR LYTES,CBC F/U CHEST CT [address] LAO Problem List - Problems (1) Acute on chronic respiratory failure with hypoxemia Code(s): J96.21 - ACUTE AND CHRONIC RESPIRATORY FAILURE WITH HYPOXIA (2) Acute exacerbation of chronic obstructive pulmonary disease (COPD) Code(s): J44.1 - CHRONIC OBSTRUCTIVE PULMONARY DISEASE W (ACUTE) EXACERBATION (3) CVA (cerebral infarction) Code(s): I63.9 - CEREBRAL INFARCTION, UNSPECIFIED (4) Dehydration Code(s): E86.0 - DEHYDRATION (5) Dementia Code(s): F03.90 - UNSPECIFIED DEMENTIA WITHOUT BEHAVIORAL DISTURBANCE (6) Elevated LFTs Code(s): R79.89 - OTHER SPECIFIED ABNORMAL FINDINGS OF BLOOD CHEMISTRY (7) HTN (hypertension) Code(s): I10 - ESSENTIAL (PRIMARY) HYPERTENSION (8) Hyperbilirubinemia Code(s): E80.6 - OTHER DISORDERS OF BILIRUBIN METABOLISM (9) COPD exacerbation Code(s): J44.1 - CHRONIC OBSTRUCTIVE PULMONARY DISEASE W (ACUTE) EXACERBATION
[2018-10-07] MEDS ORDERED: ALBUTEROL SO4 0.083% IH SOL 2.5 MG/3 ML VIAL.NEB. NEB PRN (16:22)
--- NOTE | 2018-10-07 17:17 | CON.GI ---
Consult Consult Specialty:: Gastroenterology Referred by:: Dr Delcid Reason for Consultation:: abnormal LFTs - History of Present Illness Chief Complaint: leg swelling History of Present Illness: 83M is admitted with increasing leg swelling despite receiving lasix. He is also dyspneic. He denies abdominal pain. He denies any history of luiver disease but does admit to drinking alcohol heavily until he suffered a CVA in the 70s. His family aids with the history. No FH of liver disease. No IVDA but believes that he has been transfused. He has chronic constipation but has never had a colonoscopy and tells me that he doesn't want one. He had a PEG placed on 11/27/16 for dysphagia but it was removed when he recovered his ability to swallow. 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 Carranza. 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 [employer] Place of : [facility] History of Recent Travel: No Home Medications - Allergies Allergies/Adverse Reactions: Allergies Allergy/AdvReac Type Severity Reaction Status Date / Time No Known Allergies Allergy Verified 10/06/18 13:35 - Home Medications Home Medications: Ambulatory Orders Finasteride [Proscar -] 5 mg PO DAILY tablet 12/25/16 Amlodipine Besylate [Norvasc -] 10 mg PO DAILY #0 tablet 06/26/17 Aspirin [ASA -] 81 mg PO DAILY #90 tab 06/26/17 Budesonide/Formeterol Fumarate [SYMBICORT 160/4.5mcg -] 1 puff IH BID #1 inhaler 06/26/17 Magnesium Oxide [Mag-Ox -] 400 mg PO BID #0 tablet 06/26/17 Metoprolol Tartrate [Lopressor -] 50 mg PO BID #0 tablet 06/26/17 Mirtazapine [Remeron -] 15 mg PO HS #0 tablet 06/26/17 Montelukast Na [Singulair -] 10 mg PO HS #30 tablet 06/26/17 Pantoprazole Sodium [Protonix -] 40 mg PO DAILY #20 tablet.ec 06/26/17 Potassium Chloride 10 meq PO DAILY #30 capsule.er 06/26/17 Tamsulosin HCl [Flomax -] 0.4 mg PO DAILY@0830 #0 cap 06/26/17 Tiotropium [place] [Spiriva] 1 inh IH DAILY 30 Days #1 inh MDD 1 06/27/17 Furosemide [Lasix -] 100 mg PO DAILY 10/06/18 Mirabegron [Myrbetriq] 25 mg PO DAILY 10/06/18 Family Disease History - Family Disease History Family Disease History: Heart Disease: Brother (congestive heart failure), Other : Father (lived to 99), Mother (lived to her 70's) Review of Systems - Review of Systems Constitutional: reports: Malaise, Other (leg swellin) HENT: reports: No Symptoms Neck: reports: No Symptoms Cardiovascular: reports: No Symptoms Respiratory: reports: Cough (chronic), SOB on Exertion Gastrointestinal: reports: Constipation Physical Exam-GI Vital Signs: Vital Signs Temperature 97.8 F 10/07/18 10:00 Pulse Rate 72 10/07/18 10:00 Respiratory Rate 20 10/07/18 10:00 Blood Pressure 155/80 10/07/18 10:00 O2 Sat by Pulse Oximetry (%) 90 L 10/07/18 09:00 CBC,CMP WBC 7.9 K/mm3 (4.0-10.0) 10/07/18 07:47 RBC 6.40 M/mm3 (4.00-5.60) H 10/07/18 07:47 Hgb 17.0 GM/dL (11.7-16.9) H 10/07/18 07:47 Hct 54.6 % (35.4-49) H D 10/07/18 07:47 MCV 85.4 fl (80-96) 10/07/18 07:47 MCH 26.5 pg (25.7-33.7) 10/07/18 07:47 MCHC 31.0 g/dl (32.0-35.9) L 10/07/18 07:47 RDW 14.6 % (11.9-15.9) 10/07/18 07:47 Plt Count 324 K/MM3 (134-434) 10/07/18 07:47 MPV 6.8 fl (7.5-11.1) L 10/07/18 07:47 Absolute Neuts (auto) 6.7 K/mm3 (1.5-8.0) 10/07/18 07:47 Neutrophils % 84.2 % (42.8-82.8) H D 10/07/18 07:47 Lymphocytes % 14.1 % (8-40) D 10/07/18 07:47 Monocytes % 1.0 % (3.8-10.2) L D 10/07/18 07:47 Eosinophils % 0.3 % (0-4.5) D 10/07/18 07:47 Basophils % 0.4 % (0-2.0) 10/07/18 07:47 Nucleated RBC % 0 % (0-0) 10/07/18 07:47 Sodium 135 mmol/L (136-145) L 10/07/18 07:47 Potassium 4.1 mmol/L (3.5-5.1) 10/07/18 07:47 Chloride 101 mmol/L (98-107) 10/07/18 07:47 Carbon Dioxide 29 mmol/L (21-32) 10/07/18 07:47 Anion Gap 5 MMOL/L (8-16) L 10/07/18 07:47 BUN 13 mg/dL (7-18) 10/07/18 07:47 Creatinine 0.9 mg/dL (0.55-1.3) 10/07/18 07:47 Est GFR (CKD-EPI)AfAm 91.22 10/07/18 07:47 Est GFR (CKD-EPI)NonAf 78.71 10/07/18 07:47 Random Glucose 138 mg/dL (74-106) H 10/07/18 07:47 Calcium 10.3 mg/dL (8.5-10.1) H 10/07/18 07:47 Total Bilirubin 1.7 mg/dL (0.2-1) H 10/07/18 07:47 Direct Bilirubin 0.4 mg/dL (0.0-0.2) H 10/07/18 07:47 AST 33 U/L (15-37) 10/07/18 07:47 ALT 35 U/L (13-61) 10/07/18 07:47 Alkaline Phosphatase 164 U/L (45-117) H 10/07/18 07:47 B-Natriuretic Peptide 131.1 pg/ml (5-450) 10/06/18 18:24 Total Protein 8.5 g/dl (6.4-8.2) H 10/07/18 07:47 Albumin 4.2 g/dl (3.4-5.0) 10/07/18 07:47 Current Medications Generic Name Dose Route Start Last Admin Trade Name Freq PRN Reason Stop Dose Admin Albuterol Sulfate 1 amp 10/07/18 16:22 Ventolin 0.083% Nebulizer Soln - NEB Q4H PRN SHORT OF BREATH/WHEEZING Amlodipine Besylate 10 mg 10/07/18 10:00 10/07/18 09:34 Norvasc - PO 10 mg DAILY [facility] Administration Aspirin 81 mg 10/07/18 10:00 10/07/18 09:34 Asa - PO 81 mg DAILY [facility] Administration Budesonide/Formoterol Fumarate 2 puff 10/06/18 22:00 10/07/18 11:57 Symbicort 160/4.5mcg - IH 2 puff BID [facility] Administration Finasteride 5 mg 10/07/18 10:00 10/07/18 09:34 Proscar - PO 5 mg DAILY [facility] Administration Furosemide 40 mg 10/07/18 10:00 10/07/18 09:25 Lasix Injection - IVPUSH Not Given DAILY [facility] Heparin Sodium (Porcine) 5,000 unit 10/06/18 22:00 10/07/18 09:33 Heparin - SQ 5,000 unit BID [facility] Administration Magnesium Oxide 400 mg 10/06/18 22:00 10/07/18 09:34 Mag-Ox - PO 400 mg BID [facility] Administration Methylprednisolone Sodium Succinate 40 mg 10/06/18 22:00 10/07/18 09:33 Solu-Medrol - IVPUSH 40 mg BID [facility] Administration Metoprolol Tartrate 50 mg 10/06/18 22:00 10/07/18 09:34 Lopressor - PO 50 mg BID [facility] Administration Mirtazapine 15 mg 10/06/18 22:00 10/07/18 00:16 Remeron - PO 15 mg HS [facility] Administration Montelukast Sodium 10 mg 10/06/18 22:00 10/07/18 00:17 Singulair - PO 10 mg HS [facility] Administration Non-Formulary Medication 25 mg 10/07/18 10:00 Mirabegron [Myrbetriq] PO DAILY [facility] Pantoprazole Sodium 40 mg 10/07/18 10:00 10/07/18 09:34 Protonix - PO 40 mg DAILY [facility] Administration Potassium Chloride 10 meq 10/07/18 10:00 10/07/18 09:34 K-Dur - PO 10 meq DAILY [facility] Administration Tamsulosin HCl 0.4 mg 10/07/18 08:30 10/07/18 09:29 Flomax - PO 0.4 mg DAILY@0830 [facility] Administration Tiotropium [place] 2 puff 10/07/18 10:00 10/07/18 11:58 Spiriva Respimat IH 2 puff DAILY [facility] Administration Constitutional: Yes: No Distress Eyes: Yes: Conjunctiva Clear HENT: Yes: Atraumatic Neck: Yes: Trachea Midline Cardiovascular: Yes: Regular Rate and Rhythm Respiratory: Yes: Hyperresonant, Rhonchi, SOB Gastrointestinal Inspection: Yes: Scars (healed vertical supra and subumbilical incision) ...Auscultate: Yes: Normoactive Bowel Sounds ...Palpate: Yes: Soft ...Rectal Exam: Yes: Guaiac Negative, Other (enlarged prostate) Edema: LLE: 2+, RLE: 2+ Labs: CBC, BMP 10/07/18 07:47 10/07/18 07:47 Laboratory Tests 06/26/17 06/27/17 07/21/17 05:20 05:20 06:45 WBC Total Bilirubin Direct Bilirubin AST ALT Alkaline Phosphatase 99 123 H D 99 11/29/16 12/01/16 06/23/17 06:00 06:00 12:30 WBC 17.9 H Total Bilirubin Direct Bilirubin AST ALT Alkaline Phosphatase 120 H D 87 07/19/17 12/31/17 03/08/18 14:51 12:32 12:41 WBC Total Bilirubin Direct Bilirubin AST ALT Alkaline Phosphatase 101 D 135 H 144 H 06/20/18 10/06/18 10/07/18 11:52 18:24 07:47 WBC Total Bilirubin 1.3 H 1.7 H Direct Bilirubin 0.4 H AST 33 ALT 35 Alkaline Phosphatase 148 H 138 H 164 H Imaging - Results Ultrasound: Report Reviewed ( Final Report US ABDOMEN US Show Printer- Friendly Version with Image (1 of 1) Show Printer-Friendly Version without images Patient Name: Adair Frausto : 1935 ID: [id number] Study Date: 06-Oct-2018 22:11 [facility] Name: ADAIR FRAUSTO DEPARTMENT OF RADIOLOGY Phys: Gini Delcid : 1935 Age: 83 Sex: M [facility] Acct: [id number] Loc: [address] Exam Date: 10/06/18 Status: [place] [address] Unit Number: [id number] EXAM#: TYPE/EXAM: RESULT: US/ABDOMEN US US/KIDNEY / RENAL US US/PELVIC / BLADDER US HISTORY PROVIDED: Renal failure. Real time examination of the abdomen demonstrates the following: The gallbladder is normal in size and free of calculi with no evidence of intra or extrahepatic biliary duct dilatation. The liver is normal in size and texture with no intrahepatic masses seen. Hepatopedal flow is documented within the main portal vein. The pancreas is poorly visualized due to overlying bowel gas. The spleen is not enlarged. The kidneys are normal in size with the right kidney measuring 3 x 4.7 x 4.1 cm and the left kidney measuring 10.9 x 4.9 x 5.6 cm. There is no evidence of hydronephrosis or contour deforming renal masses. There is a 6 to 7 mm echogenic focus within the lower pole of the right kidney that may represent a nonobstructing calculus. Evaluation of the urinary bladder demonstrates no intrinsic bladder abnormalities. Bilateral ureteral jets are visualized. A pre-void bladder volume of 153 cc was calculated. The patient was unable to void and therefore assessment of postvoid residual could not be made. The prostate gland is not enlarged. A total prostate volume of 15.8 cc was calculated. There is no evidence of AAA. The IVC is patent. IMPRESSION: 1. Essentially normal abdominal sonogram with no evidence of acute pathology. 2. Right nephrolithiasis with no evidence of hydronephrosis or obstructive uropathy. 3. Urinary retention. Please see above discussion. Reported By: Jostin Romero MD [id number] Technologist: Claudia Kerns Transcribed Date/Time: 10/07/18931 Arborist: Jostin Romero Printed Date/Time: By: Signed by: Jostin Romero Signed on: 07-Oct-2018 09:33) Problem List - Problems (1) Abnormal liver function tests Assessment/Plan: Given his lower extremity edema, his COPD and the alkaline phosphatase fluctuations noted chronically I believe that Adair has a component of congestive hepatopathy due to cor pulmonale. He may have a component of cirrhosis from his days of drinking excess alcohol. His AFP will be checked Code(s): R94.5 - ABNORMAL RESULTS OF LIVER FUNCTION STUDIES (2) Constipation Assessment/Plan: He again refuses a colonoscopy to exclude an underlying obstructing colon cancer Code(s): K59.00 - CONSTIPATION, UNSPECIFIED (3) Renal calculi Code(s): N20.0 - CALCULUS OF KIDNEY (4) Prostate cancer Code(s): C61 - MALIGNANT NEOPLASM OF PROSTATE (5) Venous (peripheral) insufficiency Code(s): I87.2 - VENOUS INSUFFICIENCY (CHRONIC) (PERIPHERAL) (6) Stricture intestinal Code(s): K56.699 - OTHER INTESTNL OBST UNSP TO PARTIAL VERSUS COMPLETE OBST (7) Acute on chronic respiratory failure with hypoxemia Code(s): J96.21 - ACUTE AND CHRONIC RESPIRATORY FAILURE WITH HYPOXIA (8) COPD exacerbation Code(s): J44.1 - CHRONIC OBSTRUCTIVE PULMONARY DISEASE W (ACUTE) EXACERBATION (9) Venous insufficiency Code(s): I87.2 - VENOUS INSUFFICIENCY (CHRONIC) (PERIPHERAL) (10) Abdominal aortic aneurysm (AAA) Code(s): I71.4 - ABDOMINAL AORTIC ANEURYSM, WITHOUT RUPTURE (11) CVA (cerebral infarction) Code(s): I63.9 - CEREBRAL INFARCTION, UNSPECIFIED (12) S/P percutaneous endoscopic gastrostomy (PEG) tube placement Code(s): Z93.1 - GASTROSTOMY STATUS Assessment/Plan Impression: - Given his lower extremity edema, his COPD and the alkaline phosphatase fluctuations noted chronically I believe that Adair has a component of congestive hepatopathy due to cor pulmonale. I expect for it to fall as he is diuresed. He may have a component of cirrhosis from his days of drinking excess alcohol. - Chronic constipation Plan: AFP will be checked Colonoscopy refused
--- NOTE | 2018-10-07 18:17 | CONS ---
DATE OF CONSULTATION: 10/07/2018 PULMONARY CONSULTATION HISTORY OF PRESENT ILLNESS: The patient is an 83-year-old black male past medical history of advanced COPD on home O2, hypertension, prostate CA, chronic bilateral lower extremity edema, admitted to [facility] with increasing shortness of breath and decreasing lower extremity edema. Apparently according to the patient's family, the patient is having worsening shortness of breath and increasing edema, and ended up being on increased Lasix dose. Apparently the patient was also seen as an outpatient, placed on Z-[place]. Apparently, according to the patient's records, I could not get a history on secondary to dementia, he has been having increasing shortness of breath for approximately 6 weeks and requiring using his nebulizer on a more frequent basis as well as using his home O2 30/11. According to the patient's daughter on admission, he is noted to have increasing exertional dyspnea which has increased in severity over the past 6 months. The patient has a history of smoking, quit years ago. Apparently he worked in an [employer] shop, is unsure whether or not he has been exposed to asbestos. PAST MEDICAL HISTORY: Again, includes CVA, TIA, CHF, hypertension, O2 dependent COPD, hyperlipidemia, and prostate CA, history of hemiparesis as well as prostate CA. CURRENT MEDICATIONS: Include Myrbetriq/Symbicort 160/4.5, Solu-Medrol, Flomax, Mag-Ox, heparin, Remeron Spiriva, Lopressor, Norvasc, Singulair, Lasix, aspirin, Protonix, K-Dur, and Proscar. REVIEW OF SYSTEMS: Difficult to obtain secondary to patient's dementia. PHYSICAL EXAMINATION: GENERAL: The patient is an elderly black male, thin, awake, alert, confused but in no acute distress. He is afebrile. VITAL SIGNS: Blood pressure 155/80, respiratory rate 20, O2 saturation is 90% on 2 L. HEENT: Normocephalic, atraumatic. NECK: Supple. HEART: Regular S1, S2. CHEST: Diminished breath sounds bilaterally, a few scattered bilateral wheezes. ABDOMEN: Soft, bowel sounds positive. EXTREMITIES: Trace edema. LABORATORY: BUN 13, creatinine 0.9, sodium 135. Of note, calcium is 10.3; on admission calcium was 9.8. Bilirubin was 1.3 on admission, currently 1.7, direct bilirubin 0.4. Chemistries: WBC 7.9, hemoglobin 17 g, hematocrit 54.6; on admission, his hemoglobin was 14.7, hematocrit 45.6. Chest CTA: No significant change from previous exam in June 2017, advanced COPD, 1.2 cm irregular left lower lobe nodule, no significant change, no acute infiltrates and/or effusions. IMPRESSION: Acute on chronic hypoxemic respiratory failure secondary to: 1. Chronic obstructive pulmonary disease exacerbation. 2. History of congestive heart failure. 3. Hypertension. 4. Diabetes. 5. Prostate carcinoma. 6. Left lower lobe nodule, unchanged. 7. Hypercalcemia. 8. Elevated bilirubin. PLAN: IV steroids. Supplemental O2. Inhaled bronchodilators. Antibiotics. Echo. Obtain, check arterial blood gases. Monitor electrolytes, CBC, as well as bilirubin and hemoglobin and hematocrit. Obtain followup chest CT in 6 months. LENARD LAO M.D. [id number]
[2018-10-07 18:54] LABS: ARTERIAL BLD GAS O2 SATURATION 96.7 % (95-98); ARTERIAL BLOOD GAS BASE EXCESS 3.6 meq/l (-2-2); ARTERIAL BLOOD GAS PCO2 44.9 mmHg (35-45); ARTERIAL BLOOD GAS PO2 90.5 mmHg (80-105); ARTERIAL BLOOD GAS pH 7.42 (7.35-7.45)
[2018-10-07 19:05] LABS: ALLENS TEST POSITIVE
--- NOTE | 2018-10-08 02:30 | CON.CARD ---
Consult Consult Specialty:: cardiology Reason for Consultation:: shortness of breath; LE edema; hx CHF - History of Present Illness Chief Complaint: Pt is not sure why he is in the hospital; does not know the date History of Present Illness: Mr. Haddad is an 83-year-old black male with a past medical history significant for HTN, COPD (advanced emphysema; bronchiectasis), diastolic CHF, infrarenal aneurysm, dementia, and chronic bilateral pitting edema presents to the emergency department with shortness of breath and lower extremity edema. The patient presents with worsening shortness of breath and non-improving bilateral lower extremity edema despite 100mg PO Lasix and leg elevation. The patient reports she was seen by Dr. Delcid (PCP) on 09/27, who increased PO lasix to 100 mg once a day. The patient reports an additional complaint of 6 weeks of worsening shortness of breath. Per family at bedside, the patient been using his home O2 and nebulizer more than usual for the past 6 weeks. Per daughter at bedside, she reports she visits her father every 6 months. Daughter reports she had noticed an increase in exertional dyspnea, state 6 months ago he was able to ambulate further compared to now. The patient reports PCP instructed him, that is symptoms doesnt improve, follow up at the ER for IV diuretic use. Allergies: NKDA Past Surgical History: Chest tube for pneumothorax, G-tube for dysphagia Social History: Former smoker(Quit 2011). No ETOH or recreational drug use. PCP: Dr. Delcid. - History Source History Provided By: Patient, Medical Record Limitations to Obtaining History: Dementia - Past Medical History [employer]: Yes: CVA, TIA Cardio/Vascular: Yes: Aneurysm (infrarenal), CHF (LVH but good LV function on echo), HTN, Hyperlipdemia Pulmonary: Yes: COPD Gastrointestinal: Yes: Constipation, Other (SBO SB benign mass, s/p resection) Renal/: Yes: BPH, Cancer (prostate), Renal Calculi (right kidney) Musculoskeletal: Yes: Hemiparesis Endocrine: Yes: Other (osteoporosis with lumbar vertebrae fracture) - Past Surgical History Additional Surgical History: Mid ileal resection of benign stricture 10/21/16 - Dr. Carranza. 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 [employer] Housing History of Recent Travel: No Home Medications - Allergies Allergies/Adverse Reactions: Allergies Allergy/AdvReac Type Severity Reaction Status Date / Time No Known Allergies Allergy Verified 10/06/18 13:35 - Home Medications Home Medications: Ambulatory Orders Finasteride [Proscar -] 5 mg PO DAILY tablet 12/25/16 Amlodipine Besylate [Norvasc -] 10 mg PO DAILY #0 tablet 06/26/17 Aspirin [ASA -] 81 mg PO DAILY #90 tab 06/26/17 Budesonide/Formeterol Fumarate [SYMBICORT 160/4.5mcg -] 1 puff IH BID #1 inhaler 06/26/17 Magnesium Oxide [Mag-Ox -] 400 mg PO BID #0 tablet 06/26/17 Metoprolol Tartrate [Lopressor -] 50 mg PO BID #0 tablet 06/26/17 Mirtazapine [Remeron -] 15 mg PO HS #0 tablet 06/26/17 Montelukast Na [Singulair -] 10 mg PO HS #30 tablet 06/26/17 Pantoprazole Sodium [Protonix -] 40 mg PO DAILY #20 tablet.ec 06/26/17 Potassium Chloride 10 meq PO DAILY #30 capsule.er 06/26/17 Tamsulosin HCl [Flomax -] 0.4 mg PO DAILY@0830 #0 cap 06/26/17 Tiotropium [place] [Spiriva] 1 inh IH DAILY 30 Days #1 inh MDD 1 06/27/17 Furosemide [Lasix -] 100 mg PO DAILY 10/06/18 Mirabegron [Myrbetriq] 25 mg PO DAILY 10/06/18 Family Disease History - Family Disease History Family Disease History: Heart Disease: Brother (congestive heart failure), Other : Father (lived to 99), Mother (lived to her 70's) Review of Systems - Review of Systems Constitutional: reports: Weakness Eyes: reports: No Symptoms HENT: reports: No Symptoms Neck: reports: No Symptoms Cardiovascular: reports: Shortness of Breath Respiratory: reports: Exercise Intolerance, SOB Gastrointestinal: reports: No Symptoms Genitourinary: reports: No Symptoms Breasts: reports: No Symptoms Reported Musculoskeletal: reports: Muscle Weakness Integumentary: reports: No Symptoms Neurological: reports: Unsteady Gait Hematology/Lymphatic: reports: No Symptoms Psychiatric: reports: Other (dementia) - Risk Factors Known Risk Factors: Yes: Age, Gender, Hypercholesterolemia, Hypertension Vital Signs: Vital Signs Temperature 98.5 F 10/08/18 02:23 Pulse Rate 61 10/08/18 02:23 Respiratory Rate 20 10/08/18 02:23 Blood Pressure 100/63 10/08/18 02:23 O2 Sat by Pulse Oximetry (%) 95 10/07/18 21:00 Constitutional: Yes: Calm Eyes: Yes: WNL HENT: Yes: WNL Neck: Yes: WNL Respiratory: Yes: Regular Gastrointestinal: Yes: Soft Renal/: No: Anuria Heart Sounds: Yes: S1 (aplit), S2, S4 Musculoskeletal: Yes: Muscle Weakness Extremities: Yes: Cool Edema: No Peripheral Pulses WNL: Yes Integumentary: Yes: WNL Neurological: Yes: Alert, Weakness Psychiatric: Yes: Other - Other Data Labs, Other Data: CBC, BMP 10/07/18 07:47 10/07/18 07:47 Abnormal Lab Results 10/07/18 10/07/18 10/07/18 07:47 07:47 07:47 RBC 6.40 H Hgb 17.0 H Hct 54.6 H D MCHC 31.0 L MPV 6.8 L Neutrophils % 84.2 H D Monocytes % 1.0 L D ABG HCO3 ABG Base Excess Sodium 135 L Anion Gap 5 L Random Glucose 138 H Hemoglobin A1c % 6.5 H Calcium 10.3 H Total Bilirubin 1.7 H Direct Bilirubin 0.4 H Alkaline Phosphatase 164 H Total Protein 8.5 H Urine Blood U Random Total Protein 10/07/18 10/07/18 10/07/18 13:45 18:40 20:30 RBC Hgb Hct MCHC MPV Neutrophils % Monocytes % ABG HCO3 28.4 H ABG Base Excess 3.6 H Sodium Anion Gap Random Glucose Hemoglobin A1c % Calcium Total Bilirubin Direct Bilirubin Alkaline Phosphatase Total Protein Urine Blood 1+ H U Random Total Protein 20.1 H Problem List - Problems (1) Osteoporosis Code(s): M81.0 - AGE-RELATED OSTEOPOROSIS W/O CURRENT PATHOLOGICAL FRACTURE (2) Chronic obstructive pulmonary disease Assessment/Plan: steroids, bronchodilators, and O2 per personnel analyst. Code(s): J44.9 - CHRONIC OBSTRUCTIVE PULMONARY DISEASE, UNSPECIFIED (3) Dementia Code(s): F03.90 - UNSPECIFIED DEMENTIA WITHOUT BEHAVIORAL DISTURBANCE (4) Diastolic CHF Assessment/Plan: On metoprolol, amlodipine, and furosemide. Pt is not in respiratory distress. F/u BUN/Cr, electrolytes, Is and Os, and daily weight. Code(s): I50.30 - UNSPECIFIED DIASTOLIC (CONGESTIVE) HEART FAILURE (5) HTN (hypertension) Code(s): I10 - ESSENTIAL (PRIMARY) HYPERTENSION (6) Weakness Code(s): R53.1 - WEAKNESS
[2018-10-08 07:27] LABS: HEMATOCRIT 47.9 % (35.4-49); HEMOGLOBIN 15.7 GM/dL (11.7-16.9); LYMPH % 9.6 % (8-40); MCH 27.5 pg (25.7-33.7); MCHC 32.7 g/dl (32.0-35.9); MEAN CELL VOLUME 84.1 fl (80-96); MEAN PLT VOLUME 6.8 fl (7.5-11.1); MONO % 4.6 % (3.8-10.2); NEUT % 85.8 % (42.8-82.8); PLATELET COUNT 348 K/MM3 (134-434); RBC 5.69 M/mm3 (4.00-5.60); RDW 14.5 % (11.9-15.9); WHITE BLOOD COUNT 10.7 K/mm3 (4.0-10.0)
[2018-10-08] MEDS: TAMSULOSIN HCL 0.4 MG CAP PO SCH (08:32)
[2018-10-08 08:42] LABS: ALBUMIN 3.6 g/dl (3.4-5.0); BILIRUBIN,TOTAL 1.2 mg/dL (0.2-1); CREATININE 1.1 mg/dL (0.55-1.3); MAGNESIUM 3.2 mg/dL (1.8-2.4); POTASSIUM 4.4 mmol/L (3.5-5.1); TOT PROT 7.5 g/dl (6.4-8.2)
[2018-10-08] MEDS: POTASSIUM CHLORIDE TABS 10 MEQ TABLET.ER (FP) PO SCH (09:18)
[2018-10-08] MEDS: METOPROLOL TARTRATE 50 MG TABLET (FP) PO SCH ×2 (09:18→21:11)
[2018-10-08] MEDS: amLODIPine BESYLATE 10 MG TABLET (FP) PO SCH (09:18)
[2018-10-08] MEDS: FUROSEMIDE 40 MG/4 ML INJECTABLE VIAL IVPUSH SCH (09:18)
[2018-10-08] MEDS: MAGNESIUM OXIDE 400 MG TABLET (FP) PO SCH ×2 (09:18→21:12)
[2018-10-08] MEDS: FINASTERIDE 5 MG TABLET (FP) PO SCH (09:18)
[2018-10-08] MEDS: HEPARIN NA (PORCINE) 5,000 UNITS/ML 1ML VIAL SQ SCH ×2 (09:18→21:11)
[2018-10-08] MEDS: PANTOPRAZOLE 40 MG TABLET (FP) PO SCH (09:18)
[2018-10-08] MEDS: methylPREDNISolone NA SUCC 40 MG/1 ML VIAL IVPUSH SCH (09:18)
[2018-10-08] MEDS: ASPIRIN 81 MG CHEWABLE TABLETS PO SCH (09:18)
--- NOTE | 2018-10-08 10:00 | PN ---
Progress Note (short form) - Note Progress Note: RENAL Coverage for Dr Fontaine Pt awake and alert comfortable Last Vital Signs Temp Pulse Resp BP Pulse Ox 98 F 69 20 144/87 95 10/08/18 08:44 10/08/18 08:44 10/08/18 08:44 10/08/18 08:44 10/07/18 21:00 lungs clear cvs s1s2 rr abd soft ext trace edema, has clubbing neuro a+ox3 CBC, BMP 10/08/18 07:00 10/08/18 07:00 Current Medications Generic Name Dose Route Start Last Admin Trade Name Freq PRN Reason Stop Dose Admin Albuterol Sulfate 1 amp 10/07/18 16:22 Ventolin 0.083% Nebulizer Soln - NEB Q4H PRN SHORT OF BREATH/WHEEZING Amlodipine Besylate 10 mg 10/07/18 10:00 10/08/18 09:18 Norvasc - PO 10 mg DAILY [facility] Administration Aspirin 81 mg 10/07/18 10:00 10/08/18 09:18 Asa - PO 81 mg DAILY [facility] Administration Budesonide/Formoterol Fumarate 2 puff 10/06/18 22:00 10/07/18 21:52 Symbicort 160/4.5mcg - IH 2 puff BID [facility] Administration Finasteride 5 mg 10/07/18 10:00 10/08/18 09:18 Proscar - PO 5 mg DAILY [facility] Administration Furosemide 40 mg 10/07/18 10:00 10/08/18 09:18 Lasix Injection - IVPUSH 40 mg DAILY [facility] Administration Heparin Sodium (Porcine) 5,000 unit 10/06/18 22:00 10/08/18 09:18 Heparin - SQ 5,000 unit BID [facility] Administration Magnesium Oxide 400 mg 10/06/18 22:00 10/08/18 09:18 Mag-Ox - PO 400 mg BID [facility] Administration Methylprednisolone Sodium Succinate 40 mg 10/06/18 22:00 10/08/18 09:18 Solu-Medrol - IVPUSH 40 mg BID [facility] Administration Metoprolol Tartrate 50 mg 10/06/18 22:00 10/08/18 09:18 Lopressor - PO 50 mg BID [facility] Administration Mirtazapine 15 mg 10/06/18 22:00 10/07/18 21:40 Remeron - PO 15 mg HS [facility] Administration Montelukast Sodium 10 mg 10/06/18 22:00 10/07/18 21:40 Singulair - PO 10 mg HS [facility] Administration Non-Formulary Medication 25 mg 10/07/18 10:00 Mirabegron [Myrbetriq] PO DAILY [facility] Pantoprazole Sodium 40 mg 10/07/18 10:00 10/08/18 09:18 Protonix - PO 40 mg DAILY [facility] Administration Potassium Chloride 10 meq 10/07/18 10:00 10/08/18 09:18 K-Dur - PO 10 meq DAILY [facility] Administration Tamsulosin HCl 0.4 mg 10/07/18 08:30 10/08/18 08:32 Flomax - PO 0.4 mg DAILY@0830 [facility] Administration Tiotropium [place] 2 puff 10/07/18 10:00 10/07/18 11:58 Spiriva Respimat IH 2 puff DAILY [facility] Administration IMPRESSION 83 year old gentleman with hx of hypertension, CHF, COPD, LE edema who presents with complaints of LE edema and SOB. #SOB due to COPD +/- HF- improved #LE edema from HF vs. chronic venous insufficiency. No evidence of nephrotic syndrome #COPD- has clubbing #Hx of HF #? BPH #Hypervolemic Hyponatremia- better PLAN he is comfortable but can continue current diuretics monitor renal function and electrolytes MV
--- NOTE | 2018-10-08 11:05 | PN ---
Progress Note, Physician Chief Complaint: OOB to chair feels better less legs edema less SOB - Current Medication List Current Medications: Active Medications Albuterol Sulfate (Ventolin 0.083% Nebulizer Soln -) 1 amp NEB Q4H PRN PRN Reason: SHORT OF BREATH/WHEEZING Amlodipine Besylate (Norvasc -) 10 mg PO DAILY [facility] Last Admin: 10/08/18 09:18 Dose: 10 mg Aspirin (Asa -) 81 mg PO DAILY [facility] Last Admin: 10/08/18 09:18 Dose: 81 mg Budesonide/Formoterol Fumarate (Symbicort 160/4.5mcg -) 2 puff IH BID [facility] Last Admin: 10/07/18 21:52 Dose: 2 puff Finasteride (Proscar -) 5 mg PO DAILY [facility] Last Admin: 10/08/18 09:18 Dose: 5 mg Furosemide (Lasix Injection -) 40 mg IVPUSH DAILY [facility] Last Admin: 10/08/18 09:18 Dose: 40 mg Heparin Sodium (Porcine) (Heparin -) 5,000 unit SQ BID [facility] Last Admin: 10/08/18 09:18 Dose: 5,000 unit Magnesium Oxide (Mag-Ox -) 400 mg PO BID [facility] Last Admin: 10/08/18 09:18 Dose: 400 mg Methylprednisolone Sodium Succinate (Solu-Medrol -) 40 mg IVPUSH BID [facility] Last Admin: 10/08/18 09:18 Dose: 40 mg Metoprolol Tartrate (Lopressor -) 50 mg PO BID [facility] Last Admin: 10/08/18 09:18 Dose: 50 mg Mirtazapine (Remeron -) 15 mg PO [facility] Last Admin: 10/07/18 21:40 Dose: 15 mg Montelukast Sodium (Singulair -) 10 mg PO HS [facility] Last Admin: 10/07/18 21:40 Dose: 10 mg Non-Formulary Medication (Mirabegron [Myrbetriq]) 25 mg PO DAILY [facility] Pantoprazole Sodium (Protonix -) 40 mg PO DAILY [facility] Last Admin: 10/08/18 09:18 Dose: 40 mg Potassium Chloride (K-Dur -) 10 meq PO DAILY [facility] Last Admin: 10/08/18 09:18 Dose: 10 meq Tamsulosin HCl (Flomax -) 0.4 mg PO DAILY@0830 [facility] Last Admin: 10/08/18 08:32 Dose: 0.4 mg Tiotropium [place] (Spiriva Respimat) 2 puff IH DAILY [facility] Last Admin: 10/07/18 11:58 Dose: 2 puff - Objective Vital Signs: Vital Signs Temperature 98 F 10/08/18 08:44 Pulse Rate 69 10/08/18 08:44 Respiratory Rate 20 10/08/18 08:44 Blood Pressure 144/87 10/08/18 08:44 O2 Sat by Pulse Oximetry (%) 95 10/07/18 21:00 Constitutional: Yes: No Distress, Calm Eyes: Yes: Conjunctiva Clear HENT: Yes: Atraumatic Neck: Yes: Supple Cardiovascular: Yes: Regular Rate and Rhythm Respiratory: Yes: CTA Bilaterally Gastrointestinal: Yes: Soft. No: Tenderness Genitourinary: No: CVA Tenderness - Left, CVA Tenderness - Right Musculoskeletal: No: Joint Stiffness, Joint Swelling Extremities: No: Cold, Cool, Cyanosis Edema: Yes (less) Integumentary: No: Rash, Venous Stasis Changes Neurological: Yes: WNL, Alert, Oriented ...Motor Strength: WNL Psychiatric: Yes: WNL, Alert, Oriented. No: Agitated, Suicidal Ideation Labs: CBC, BMP 10/08/18 07:00 10/08/18 07:00 - ....Imaging Other: Report Reviewed Assessment/Plan The patient is an 83-year-old male with a past medical history significant for HTN, COPD, CHF, dementia, prostate CA and chronic bilateral pitting edema admitted with shortness of breath and worsening bilateral lower extremity edema despite increasing diuretic dose recently and recent po ATB; cardiology / pulmonary and renal eval iv lasix f/u labs iv steroids / COPD falls DVT pfx d/w pt do not get OOB alone call for help if needs OOB to prevent falls d/w pt and staff
--- NOTE | 2018-10-08 11:19 | PN ---
Progress Note, Physician History of Present Illness: pulmonary alert,no distress,less dyspneic - Current Medication List Current Medications: Active Medications Albuterol Sulfate (Ventolin 0.083% Nebulizer Soln -) 1 amp NEB Q4H PRN PRN Reason: SHORT OF BREATH/WHEEZING Amlodipine Besylate (Norvasc -) 10 mg PO DAILY [facility] Last Admin: 10/08/18 09:18 Dose: 10 mg Aspirin (Asa -) 81 mg PO DAILY [facility] Last Admin: 10/08/18 09:18 Dose: 81 mg Budesonide/Formoterol Fumarate (Symbicort 160/4.5mcg -) 2 puff IH BID [facility] Last Admin: 10/07/18 21:52 Dose: 2 puff Finasteride (Proscar -) 5 mg PO DAILY [facility] Last Admin: 10/08/18 09:18 Dose: 5 mg Furosemide (Lasix Injection -) 40 mg IVPUSH DAILY [facility] Last Admin: 10/08/18 09:18 Dose: 40 mg Heparin Sodium (Porcine) (Heparin -) 5,000 unit SQ BID [facility] Last Admin: 10/08/18 09:18 Dose: 5,000 unit Magnesium Oxide (Mag-Ox -) 400 mg PO BID [facility] Last Admin: 10/08/18 09:18 Dose: 400 mg Methylprednisolone Sodium Succinate (Solu-Medrol -) 40 mg IVPUSH BID [facility] Last Admin: 10/08/18 09:18 Dose: 40 mg Metoprolol Tartrate (Lopressor -) 50 mg PO BID [facility] Last Admin: 10/08/18 09:18 Dose: 50 mg Mirtazapine (Remeron -) 15 mg PO [facility] Last Admin: 10/07/18 21:40 Dose: 15 mg Montelukast Sodium (Singulair -) 10 mg PO HS [facility] Last Admin: 10/07/18 21:40 Dose: 10 mg Non-Formulary Medication (Mirabegron [Myrbetriq]) 25 mg PO DAILY [facility] Pantoprazole Sodium (Protonix -) 40 mg PO DAILY [facility] Last Admin: 10/08/18 09:18 Dose: 40 mg Potassium Chloride (K-Dur -) 10 meq PO DAILY [facility] Last Admin: 10/08/18 09:18 Dose: 10 meq Tamsulosin HCl (Flomax -) 0.4 mg PO DAILY@0830 [facility] Last Admin: 10/08/18 08:32 Dose: 0.4 mg Tiotropium [place] (Spiriva Respimat) 2 puff IH DAILY [facility] Last Admin: 10/07/18 11:58 Dose: 2 puff - Objective Vital Signs: Vital Signs Temperature 98 F 10/08/18 08:44 Pulse Rate 69 10/08/18 08:44 Respiratory Rate 20 10/08/18 08:44 Blood Pressure 144/87 10/08/18 08:44 O2 Sat by Pulse Oximetry (%) 95 10/07/18 21:00 Constitutional: Yes: Well Nourished, Calm Eyes: Yes: WNL HENT: Yes: WNL Neck: Yes: WNL Cardiovascular: Yes: Regular Rate and Rhythm, S1, S2 Respiratory: Yes: Diminished Gastrointestinal: Yes: Normal Bowel Sounds, Soft Extremities: Yes: WNL Edema: Yes Edema: LLE: Trace, RLE: Trace Labs: CBC, BMP 10/08/18 07:00 10/08/18 07:00 Laboratory Tests 10/07/18 18:40 ABG pH 7.42 ABG pCO2 at Pt Temp 44.9 ABG pO2 at Pt Temp 90.5 ABG HCO3 28.4 H Oxygen Flow Rate 2l Problem List - Problems (1) Acute on chronic respiratory failure with hypoxemia Code(s): J96.21 - ACUTE AND CHRONIC RESPIRATORY FAILURE WITH HYPOXIA (2) Acute exacerbation of chronic obstructive pulmonary disease (COPD) Code(s): J44.1 - CHRONIC OBSTRUCTIVE PULMONARY DISEASE W (ACUTE) EXACERBATION (3) CVA (cerebral infarction) Code(s): I63.9 - CEREBRAL INFARCTION, UNSPECIFIED (4) Dehydration Code(s): E86.0 - DEHYDRATION (5) Dementia Code(s): F03.90 - UNSPECIFIED DEMENTIA WITHOUT BEHAVIORAL DISTURBANCE (6) Elevated LFTs Code(s): R79.89 - OTHER SPECIFIED ABNORMAL FINDINGS OF BLOOD CHEMISTRY (7) HTN (hypertension) Code(s): I10 - ESSENTIAL (PRIMARY) HYPERTENSION (8) Hyperbilirubinemia Code(s): E80.6 - OTHER DISORDERS OF BILIRUBIN METABOLISM (9) COPD exacerbation Code(s): J44.1 - CHRONIC OBSTRUCTIVE PULMONARY DISEASE W (ACUTE) EXACERBATION Assessment/Plan IMP ACUTE ON CHRONIC HYPOXEMIC RESPIRATORY FAILURE IMPROVING COPD EXACERBATION IMPROVING CHF HTN DEMENTIA PROSTATE CA LLL NODULE UNCHANGED HYPERCALCEMIA ELEVATED BILIRUBIN IMPROVING PLAN CONTINUE IV STEROIDS INHALED BRONCHODILATORS O2 LASIX NEEDED MONITOR LYTES,CBC F/U CHEST CT [address] LAO Problem List - Problems (1) Acute on chronic respiratory failure with hypoxemia Code(s): J96.21 - ACUTE AND CHRONIC RESPIRATORY FAILURE WITH HYPOXIA (2) Acute exacerbation of chronic obstructive pulmonary disease (COPD) Code(s): J44.1 - CHRONIC OBSTRUCTIVE PULMONARY DISEASE W (ACUTE) EXACERBATION (3) CVA (cerebral infarction) Code(s): I63.9 - CEREBRAL INFARCTION, UNSPECIFIED (4) Dehydration Code(s): E86.0 - DEHYDRATION (5) Dementia Code(s): F03.90 - UNSPECIFIED DEMENTIA WITHOUT BEHAVIORAL DISTURBANCE (6) Elevated LFTs Code(s): R79.89 - OTHER SPECIFIED ABNORMAL FINDINGS OF BLOOD CHEMISTRY (7) HTN (hypertension) Code(s): I10 - ESSENTIAL (PRIMARY) HYPERTENSION (8) Hyperbilirubinemia Code(s): E80.6 - OTHER DISORDERS OF BILIRUBIN METABOLISM (9) COPD exacerbation Code(s): J44.1 - CHRONIC OBSTRUCTIVE PULMONARY DISEASE W (ACUTE) EXACERBATION
--- NOTE | 2018-10-08 19:01 | PN ---
Progress Note, Physician History of Present Illness: Dyspnea improving. - Current Medication List Current Medications: Active Medications Albuterol Sulfate (Ventolin 0.083% Nebulizer Soln -) 1 amp NEB Q4H PRN PRN Reason: SHORT OF BREATH/WHEEZING Amlodipine Besylate (Norvasc -) 10 mg PO DAILY [facility] Last Admin: 10/08/18 09:18 Dose: 10 mg Aspirin (Asa -) 81 mg PO DAILY [facility] Last Admin: 10/08/18 09:18 Dose: 81 mg Budesonide/Formoterol Fumarate (Symbicort 160/4.5mcg -) 2 puff IH BID [facility] Last Admin: 10/07/18 21:52 Dose: 2 puff Finasteride (Proscar -) 5 mg PO DAILY [facility] Last Admin: 10/08/18 09:18 Dose: 5 mg Furosemide (Lasix Injection -) 40 mg IVPUSH DAILY [facility] Last Admin: 10/08/18 09:18 Dose: 40 mg Heparin Sodium (Porcine) (Heparin -) 5,000 unit SQ BID [facility] Last Admin: 10/08/18 09:18 Dose: 5,000 unit Magnesium Oxide (Mag-Ox -) 400 mg PO BID [facility] Last Admin: 10/08/18 09:18 Dose: 400 mg Methylprednisolone Sodium Succinate (Solu-Medrol -) 40 mg IVPUSH DAILY [facility] Metoprolol Tartrate (Lopressor -) 50 mg PO BID [facility] Last Admin: 10/08/18 09:18 Dose: 50 mg Mirtazapine (Remeron -) 15 mg PO HS [facility] Last Admin: 10/07/18 21:40 Dose: 15 mg Montelukast Sodium (Singulair -) 10 mg PO [facility] Last Admin: 10/07/18 21:40 Dose: 10 mg Non-Formulary Medication (Mirabegron [Myrbetriq]) 25 mg PO DAILY [facility] Pantoprazole Sodium (Protonix -) 40 mg PO DAILY [facility] Last Admin: 10/08/18 09:18 Dose: 40 mg Potassium Chloride (K-Dur -) 10 meq PO DAILY [facility] Last Admin: 10/08/18 09:18 Dose: 10 meq Tamsulosin HCl (Flomax -) 0.4 mg PO DAILY@0830 [facility] Last Admin: 10/08/18 08:32 Dose: 0.4 mg Tiotropium [place] (Spiriva Respimat) 2 puff IH DAILY [facility] Last Admin: 10/07/18 11:58 Dose: 2 puff - Objective Vital Signs: Vital Signs Temperature 98 F 10/08/18 08:44 Pulse Rate 69 10/08/18 08:44 Respiratory Rate 20 10/08/18 08:44 Blood Pressure 144/87 10/08/18 08:44 O2 Sat by Pulse Oximetry (%) 94 L 10/08/18 09:00 Constitutional: Yes: No Distress, Calm, Thin Neck: Yes: Supple Cardiovascular: Yes: Regular Rate and Rhythm Respiratory: Yes: Regular, CTA Bilaterally, On Nasal O2 Gastrointestinal: Yes: Normal Bowel Sounds, Soft Edema: No Labs: CBC, BMP 10/08/18 07:00 10/08/18 07:00 Assessment/Plan - Problems (1) Osteoporosis Code(s): M81.0 - AGE-RELATED OSTEOPOROSIS W/O CURRENT PATHOLOGICAL FRACTURE (2) Chronic obstructive pulmonary disease Assessment/Plan: IV steroids, Singulairm bronchodilators, and O2 per director of consulting services. Code(s): J44.9 - CHRONIC OBSTRUCTIVE PULMONARY DISEASE, UNSPECIFIED (3) Dementia Code(s): F03.90 - UNSPECIFIED DEMENTIA WITHOUT BEHAVIORAL DISTURBANCE (4) Diastolic CHF Assessment/Plan: On metoprolol 50 bid, amlodipine 10 qd, and furosemide 40 IV qd. Pt is not in respiratory distress. F/u BUN/Cr, electrolytes, Is and Os, and daily weight. Code(s): I50.30 - UNSPECIFIED DIASTOLIC (CONGESTIVE) HEART FAILURE (5) HTN (hypertension) Code(s): I10 - ESSENTIAL (PRIMARY) HYPERTENSION (6) Weakness Code(s): R53.1 - WEAKNESS
[2018-10-08] MEDS ORDERED: PT OWN MED DRAWER 7, Y5N ONE (21:03)
[2018-10-08] MEDS: MONTELUKAST NA 10 MG TABLET PO SCH (21:12)
[2018-10-08] MEDS: MIRTAZAPINE 15 MG TABLET (FP) PO SCH (21:13)
[2018-10-09 06:54] LABS: BASO % 0.2 % (0-2.0); HEMATOCRIT 50.3 % (35.4-49); MCH 27.1 pg (25.7-33.7); MCHC 31.8 g/dl (32.0-35.9); MEAN CELL VOLUME 85.2 fl (80-96); MEAN PLT VOLUME 7.1 fl (7.5-11.1); MONO % 9.4 % (3.8-10.2); NEUT % 81.4 % (42.8-82.8); PLATELET COUNT 316 K/MM3 (134-434); RDW 14.8 % (11.9-15.9); WHITE BLOOD COUNT 16.8 K/mm3 (4.0-10.0)
[2018-10-09 07:20] LABS: ALBUMIN 3.6 g/dl (3.4-5.0); BILIRUBIN,TOTAL 0.9 mg/dL (0.2-1); CALCIUM 9.5 mg/dL (8.5-10.1); CREATININE 0.9 mg/dL (0.55-1.3); POTASSIUM 4.4 mmol/L (3.5-5.1); TOT PROT 7.2 g/dl (6.4-8.2)
--- NOTE | 2018-10-09 08:46 | PN ---
Progress Note, Physician Chief Complaint: in bed NAD feels better; walked 30 feet with PT - was in [place] in the past for rehab but said he wants to go home, and his agreed - Current Medication List Current Medications: Active Medications Albuterol Sulfate (Ventolin 0.083% Nebulizer Soln -) 1 amp NEB Q4H PRN PRN Reason: SHORT OF BREATH/WHEEZING Amlodipine Besylate (Norvasc -) 10 mg PO DAILY [facility] Last Admin: 10/08/18 09:18 Dose: 10 mg Aspirin (Asa -) 81 mg PO DAILY [facility] Last Admin: 10/08/18 09:18 Dose: 81 mg Budesonide/Formoterol Fumarate (Symbicort 160/4.5mcg -) 2 puff IH BID [facility] Last Admin: 10/07/18 21:52 Dose: 2 puff Finasteride (Proscar -) 5 mg PO DAILY [facility] Last Admin: 10/08/18 09:18 Dose: 5 mg Furosemide (Lasix Injection -) 40 mg IVPUSH DAILY [facility] Last Admin: 10/08/18 09:18 Dose: 40 mg Heparin Sodium (Porcine) (Heparin -) 5,000 unit SQ BID [facility] Last Admin: 10/08/18 21:11 Dose: 5,000 unit Magnesium Oxide (Mag-Ox -) 400 mg PO BID [facility] Last Admin: 10/08/18 21:12 Dose: 400 mg Methylprednisolone Sodium Succinate (Solu-Medrol -) 40 mg IVPUSH DAILY [facility] Metoprolol Tartrate (Lopressor -) 50 mg PO BID [facility] Last Admin: 10/08/18 21:11 Dose: 50 mg Mirtazapine (Remeron -) 15 mg PO HS [facility] Last Admin: 10/08/18 21:13 Dose: 15 mg Montelukast Sodium (Singulair -) 10 mg PO HS [facility] Last Admin: 10/08/18 21:12 Dose: 10 mg Non-Formulary Medication (Mirabegron [Myrbetriq]) 25 mg PO DAILY [facility] Pantoprazole Sodium (Protonix -) 40 mg PO DAILY [facility] Last Admin: 10/08/18 09:18 Dose: 40 mg Potassium Chloride (K-Dur -) 10 meq PO DAILY [facility] Last Admin: 10/08/18 09:18 Dose: 10 meq Tamsulosin HCl (Flomax -) 0.4 mg PO DAILY@0830 [facility] Last Admin: 10/08/18 08:32 Dose: 0.4 mg Tiotropium [place] (Spiriva Respimat) 2 puff IH DAILY [facility] Last Admin: 10/07/18 11:58 Dose: 2 puff - Objective Vital Signs: Vital Signs Temperature 98.0 F 10/09/18 05:50 Pulse Rate 67 10/09/18 05:50 Respiratory Rate 20 10/09/18 05:50 Blood Pressure 135/64 10/09/18 05:50 O2 Sat by Pulse Oximetry (%) 94 L 10/08/18 21:00 Constitutional: Yes: No Distress, Calm Eyes: Yes: Conjunctiva Clear HENT: Yes: Atraumatic Neck: Yes: Supple Cardiovascular: Yes: Regular Rate and Rhythm Respiratory: Yes: CTA Bilaterally Gastrointestinal: Yes: Soft. No: Tenderness Genitourinary: No: CVA Tenderness - Left, CVA Tenderness - Right Musculoskeletal: No: Joint Stiffness, Joint Swelling Extremities: No: Cold, Cool, Cyanosis Edema: No (improved) Integumentary: No: Rash, Venous Stasis Changes Neurological: Yes: WNL, Alert, Oriented ...Motor Strength: WNL Psychiatric: Yes: WNL, Alert, Oriented. No: Agitated, Suicidal Ideation Labs: CBC, BMP 10/09/18 06:30 10/09/18 06:30 - ....Imaging Other: Report Reviewed Assessment/Plan The patient is an 83-year-old male with a past medical history significant for HTN, COPD, CHF, dementia, prostate CA and chronic bilateral pitting edema admitted with shortness of breath and worsening bilateral lower extremity edema despite increasing diuretic dose recently and recent po ATB; cardiology / pulmonary and renal eval iv lasix f/u labs - switch to po iv steroids / COPD - taper UCx VREF increased WBC (on steroids) will ask ID input falls DVT pfx d/w pt do not get OOB alone call for help if needs OOB to prevent falls d/w pt and staff
[2018-10-09] MEDS: POTASSIUM CHLORIDE TABS 10 MEQ TABLET.ER (FP) PO SCH (09:27)
[2018-10-09] MEDS: TAMSULOSIN HCL 0.4 MG CAP PO SCH (09:28)
[2018-10-09] MEDS: FUROSEMIDE 40 MG/4 ML INJECTABLE VIAL IVPUSH SCH (09:28)
[2018-10-09] MEDS: METOPROLOL TARTRATE 50 MG TABLET (FP) PO SCH ×2 (09:28→22:40)
[2018-10-09] MEDS: FINASTERIDE 5 MG TABLET (FP) PO SCH (09:28)
[2018-10-09] MEDS: ASPIRIN 81 MG CHEWABLE TABLETS PO SCH (09:28)
[2018-10-09] MEDS: amLODIPine BESYLATE 10 MG TABLET (FP) PO SCH (09:28)
[2018-10-09] MEDS: HEPARIN NA (PORCINE) 5,000 UNITS/ML 1ML VIAL SQ SCH ×2 (09:28→22:39)
[2018-10-09] MEDS: MAGNESIUM OXIDE 400 MG TABLET (FP) PO SCH ×2 (09:28→22:40)
[2018-10-09] MEDS: PANTOPRAZOLE 40 MG TABLET (FP) PO SCH (09:28)
[2018-10-09] MEDS: BUDESONIDE/FORMETEROL FUMARATE 160/4.5 mcg INHALER IH SCH ×3 (09:29→22:39)
[2018-10-09] MEDS: TIOTROPIUM BROMIDE 2.5 MCG (SPIRIVA) RESPIMAT INHALER IH SCH ×2 (09:29→09:30)
--- NOTE | 2018-10-09 09:49 | PN ---
Progress Note (short form) - Note Progress Note: RENAL Coverage for Dr Fontaine Pt awake and alert comfortable Last Vital Signs Temp Pulse Resp BP Pulse Ox 98.0 F 67 20 135/64 94 L 10/09/18 05:50 10/09/18 05:50 10/09/18 05:50 10/09/18 05:50 10/08/18 21:00 lungs clear cvs s1s2 rr abd soft ext no edema, has clubbing neuro a+ox3 CBC, BMP 10/09/18 06:30 10/09/18 06:30 Current Medications Generic Name Dose Route Start Last Admin Trade Name Freq PRN Reason Stop Dose Admin Albuterol Sulfate 1 amp 10/07/18 16:22 Ventolin 0.083% Nebulizer Soln - NEB Q4H PRN SHORT OF BREATH/WHEEZING Amlodipine Besylate 10 mg 10/07/18 10:00 10/09/18 09:28 Norvasc - PO 10 mg DAILY [facility] Administration Aspirin 81 mg 10/07/18 10:00 10/09/18 09:28 Asa - PO 81 mg DAILY [facility] Administration Budesonide/Formoterol Fumarate 2 puff 10/06/18 22:00 10/09/18 09:30 Symbicort 160/4.5mcg - IH 2 puff BID [facility] Administration Finasteride 5 mg 10/07/18 10:00 10/09/18 09:28 Proscar - PO 5 mg DAILY [facility] Administration Furosemide 40 mg 10/07/18 10:00 10/09/18 09:28 Lasix Injection - IVPUSH 40 mg DAILY [facility] Administration Heparin Sodium (Porcine) 5,000 unit 10/06/18 22:00 10/09/18 09:28 Heparin - SQ 5,000 unit BID [facility] Administration Magnesium Oxide 400 mg 10/06/18 22:00 10/09/18 09:28 Mag-Ox - PO 400 mg BID [facility] Administration Methylprednisolone Sodium Succinate 40 mg 10/09/18 10:00 10/09/18 09:28 Solu-Medrol - IVPUSH 40 mg DAILY [facility] Administration Metoprolol Tartrate 50 mg 10/06/18 22:00 10/09/18 09:28 Lopressor - PO 50 mg BID [facility] Administration Mirtazapine 15 mg 10/06/18 22:00 10/08/18 21:13 Remeron - PO 15 mg HS [facility] Administration Montelukast Sodium 10 mg 10/06/18 22:00 10/08/18 21:12 Singulair - PO 10 mg HS [facility] Administration Non-Formulary Medication 25 mg 10/07/18 10:00 Mirabegron [Myrbetriq] PO DAILY [facility] Pantoprazole Sodium 40 mg 10/07/18 10:00 10/09/18 09:28 Protonix - PO 40 mg DAILY [facility] Administration Potassium Chloride 10 meq 10/07/18 10:00 10/09/18 09:27 K-Dur - PO 10 meq DAILY [facility] Administration Tamsulosin HCl 0.4 mg 10/07/18 08:30 10/09/18 09:28 Flomax - PO 0.4 mg DAILY@0830 [facility] Administration Tiotropium [place] 2 puff 10/07/18 10:00 10/09/18 09:30 Spiriva Respimat IH 2 puff DAILY [facility] Administration IMPRESSION 83 year old gentleman with hx of hypertension, CHF, COPD, LE edema who presents with complaints of LE edema and SOB. #SOB due to COPD +/- HF- improved #LE edema from HF vs. chronic venous insufficiency. No evidence of nephrotic syndrome. Echo with reduced relaxation #COPD- has clubbing #Hx of HF #? BPH #Hypervolemic Hyponatremia- better PLAN he is comfortable but can continue current diuretics monitor renal function and electrolytes would reduce steroids MV
[2018-10-09] MEDS ORDERED: methylPREDNISolone NA SUCC 40 MG/1 ML VIAL IVPUSH SCH (10:00)
--- NOTE | 2018-10-09 14:22 | PN ---
Progress Note, Physician History of Present Illness: PULMONARY NO DISTRESS,OOB-CHAIR,-SOB - Current Medication List Current Medications: Active Medications Albuterol Sulfate (Ventolin 0.083% Nebulizer Soln -) 1 amp NEB Q4H PRN PRN Reason: SHORT OF BREATH/WHEEZING Amlodipine Besylate (Norvasc -) 10 mg PO DAILY [facility] Last Admin: 10/09/18 09:28 Dose: 10 mg Aspirin (Asa -) 81 mg PO DAILY [facility] Last Admin: 10/09/18 09:28 Dose: 81 mg Budesonide/Formoterol Fumarate (Symbicort 160/4.5mcg -) 2 puff IH BID [facility] Last Admin: 10/09/18 09:30 Dose: 2 puff Finasteride (Proscar -) 5 mg PO DAILY [facility] Last Admin: 10/09/18 09:28 Dose: 5 mg Furosemide (Lasix Injection -) 40 mg IVPUSH DAILY [facility] Last Admin: 10/09/18 09:28 Dose: 40 mg Heparin Sodium (Porcine) (Heparin -) 5,000 unit SQ BID [facility] Last Admin: 10/09/18 09:28 Dose: 5,000 unit Magnesium Oxide (Mag-Ox -) 400 mg PO BID [facility] Last Admin: 10/09/18 09:28 Dose: 400 mg Methylprednisolone Sodium Succinate (Solu-Medrol -) 40 mg IVPUSH DAILY [facility] Last Admin: 10/09/18 09:28 Dose: 40 mg Metoprolol Tartrate (Lopressor -) 50 mg PO BID [facility] Last Admin: 10/09/18 09:28 Dose: 50 mg Mirtazapine (Remeron -) 15 mg PO HS [facility] Last Admin: 10/08/18 21:13 Dose: 15 mg Montelukast Sodium (Singulair -) 10 mg PO HS [facility] Last Admin: 10/08/18 21:12 Dose: 10 mg Non-Formulary Medication (Mirabegron [Myrbetriq]) 25 mg PO DAILY [facility] Pantoprazole Sodium (Protonix -) 40 mg PO DAILY [facility] Last Admin: 10/09/18 09:28 Dose: 40 mg Potassium Chloride (K-Dur -) 10 meq PO DAILY [facility] Last Admin: 10/09/18 09:27 Dose: 10 meq Tamsulosin HCl (Flomax -) 0.4 mg PO DAILY@0830 [facility] Last Admin: 10/09/18 09:28 Dose: 0.4 mg Tiotropium [place] (Spiriva Respimat) 2 puff IH DAILY [facility] Last Admin: 10/09/18 09:30 Dose: 2 puff - Objective Vital Signs: Vital Signs Temperature 98.4 F 10/09/18 13:59 Pulse Rate 64 10/09/18 13:59 Respiratory Rate 20 10/09/18 13:59 Blood Pressure 128/68 10/09/18 13:59 O2 Sat by Pulse Oximetry (%) 96 10/09/18 09:00 Constitutional: Yes: Well Nourished, Calm Eyes: Yes: WNL HENT: Yes: WNL Neck: Yes: WNL Cardiovascular: Yes: Regular Rate and Rhythm, S1, S2 Respiratory: Yes: Diminished Gastrointestinal: Yes: Normal Bowel Sounds, Soft Extremities: Yes: WNL Edema: No Labs: CBC, BMP 10/09/18 06:30 10/09/18 06:30 Problem List - Problems (1) Acute on chronic respiratory failure with hypoxemia Code(s): J96.21 - ACUTE AND CHRONIC RESPIRATORY FAILURE WITH HYPOXIA (2) Acute exacerbation of chronic obstructive pulmonary disease (COPD) Code(s): J44.1 - CHRONIC OBSTRUCTIVE PULMONARY DISEASE W (ACUTE) EXACERBATION (3) CVA (cerebral infarction) Code(s): I63.9 - CEREBRAL INFARCTION, UNSPECIFIED (4) Dehydration Code(s): E86.0 - DEHYDRATION (5) Dementia Code(s): F03.90 - UNSPECIFIED DEMENTIA WITHOUT BEHAVIORAL DISTURBANCE (6) Elevated LFTs Code(s): R79.89 - OTHER SPECIFIED ABNORMAL FINDINGS OF BLOOD CHEMISTRY (7) HTN (hypertension) Code(s): I10 - ESSENTIAL (PRIMARY) HYPERTENSION (8) Hyperbilirubinemia Code(s): E80.6 - OTHER DISORDERS OF BILIRUBIN METABOLISM (9) COPD exacerbation Code(s): J44.1 - CHRONIC OBSTRUCTIVE PULMONARY DISEASE W (ACUTE) EXACERBATION Assessment/Plan IMP ACUTE ON CHRONIC HYPOXEMIC RESPIRATORY FAILURE IMPROVING COPD EXACERBATION IMPROVING CHF HTN DEMENTIA PROSTATE CA LLL NODULE UNCHANGED HYPERCALCEMIA ELEVATED BILIRUBIN IMPROVING PLAN STEROIDS INHALED BRONCHODILATORS O2 LASIX NEEDED MONITOR LYTES,CBC F/U CHEST CT [address] LAO Problem List - Problems (1) Acute on chronic respiratory failure with hypoxemia Code(s): J96.21 - ACUTE AND CHRONIC RESPIRATORY FAILURE WITH HYPOXIA (2) Acute exacerbation of chronic obstructive pulmonary disease (COPD) Code(s): J44.1 - CHRONIC OBSTRUCTIVE PULMONARY DISEASE W (ACUTE) EXACERBATION (3) CVA (cerebral infarction) Code(s): I63.9 - CEREBRAL INFARCTION, UNSPECIFIED (4) Dehydration Code(s): E86.0 - DEHYDRATION (5) Dementia Code(s): F03.90 - UNSPECIFIED DEMENTIA WITHOUT BEHAVIORAL DISTURBANCE (6) Elevated LFTs Code(s): R79.89 - OTHER SPECIFIED ABNORMAL FINDINGS OF BLOOD CHEMISTRY (7) HTN (hypertension) Code(s): I10 - ESSENTIAL (PRIMARY) HYPERTENSION (8) Hyperbilirubinemia Code(s): E80.6 - OTHER DISORDERS OF BILIRUBIN METABOLISM (9) COPD exacerbation Code(s): J44.1 - CHRONIC OBSTRUCTIVE PULMONARY DISEASE W (ACUTE) EXACERBATION
--- NOTE | 2018-10-09 14:36 | CON.ID ---
Consult Consult Specialty:: infectious disease Referred by:: dr bonilla Reason for Consultation:: + urine culture - History of Present Illness Chief Complaint: SOB History of Present Illness: 83 yo man with copd on home oxygen, history CHF, dementia admitted on 10/06 with worsening SOB and LE edema despite zpak and increasing lasix at home now improved with reolution LE edema and SOB resting in chair, quite comfortable denies urinary symptoms - History Source History Provided By: Patient, Medical Record - Past Medical History SCRAP SORTER: Yes: CVA, TIA Cardio/Vascular: Yes: Aneurysm (infrarenal), CHF (LVH but good LV function on echo), HTN, Hyperlipdemia Pulmonary: Yes: COPD Gastrointestinal: Yes: Constipation, Other (SBO SB benign mass, s/p resection) Renal/: Yes: BPH, Cancer (prostate), Renal Calculi (right kidney) Musculoskeletal: Yes: Hemiparesis Endocrine: Yes: Other (osteoporosis with lumbar vertebrae fracture) - Past Surgical History Additional Surgical History: Mid ileal resection of benign stricture 10/21/16 - Dr. Carranza. 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 [employer] Housing History of Recent Travel: No Home Medications - Allergies Allergies/Adverse Reactions: Allergies Allergy/AdvReac Type Severity Reaction Status Date / Time No Known Allergies Allergy Verified 10/06/18 13:35 - Home Medications Home Medications: Ambulatory Orders Finasteride [Proscar -] 5 mg PO DAILY tablet 12/25/16 Amlodipine Besylate [Norvasc -] 10 mg PO DAILY #0 tablet 06/26/17 Aspirin [ASA -] 81 mg PO DAILY #90 tab 06/26/17 Budesonide/Formeterol Fumarate [SYMBICORT 160/4.5mcg -] 1 puff IH BID #1 inhaler 06/26/17 Magnesium Oxide [Mag-Ox -] 400 mg PO BID #0 tablet 06/26/17 Metoprolol Tartrate [Lopressor -] 50 mg PO BID #0 tablet 06/26/17 Mirtazapine [Remeron -] 15 mg PO HS #0 tablet 06/26/17 Montelukast Na [Singulair -] 10 mg PO HS #30 tablet 06/26/17 Pantoprazole Sodium [Protonix -] 40 mg PO DAILY #20 tablet.ec 06/26/17 Potassium Chloride 10 meq PO DAILY #30 capsule.er 06/26/17 Tamsulosin HCl [Flomax -] 0.4 mg PO DAILY@0830 #0 cap 06/26/17 Tiotropium [place] [Spiriva] 1 inh IH DAILY 30 Days #1 inh MDD 1 06/27/17 Furosemide [Lasix -] 100 mg PO DAILY 10/06/18 Mirabegron [Myrbetriq] 25 mg PO DAILY 10/06/18 Family Disease History - Family Disease History Family Disease History: Heart Disease: Brother (congestive heart failure), Other : Father (lived to 99), Mother (lived to her 70's) Review of Systems - Review of Systems Constitutional: reports: No Symptoms Eyes: reports: No Symptoms HENT: reports: No Symptoms Neck: reports: No Symptoms Cardiovascular: reports: No Symptoms Respiratory: reports: No Symptoms Gastrointestinal: reports: No Symptoms Genitourinary: reports: No Symptoms Physical Exam Vital Signs: Vital Signs Temperature 98.4 F 10/09/18 13:59 Pulse Rate 64 10/09/18 13:59 Respiratory Rate 20 10/09/18 13:59 Blood Pressure 128/68 10/09/18 13:59 O2 Sat by Pulse Oximetry (%) 96 10/09/18 09:00 Constitutional: Yes: Well Nourished, No Distress, Calm Eyes: Yes: Conjunctiva Clear HENT: Yes: Atraumatic, Normocephalic Neck: Yes: Supple, Trachea Midline Cardiovascular: Yes: Regular Rate and Rhythm Respiratory: Yes: Regular, CTA Bilaterally, Diminished (at bases) Gastrointestinal: Yes: Normal Bowel Sounds, Soft. No: Tenderness, Epigastrium ...Rectal Exam: Yes: Deferred Extremities: Yes: WNL Edema: No Labs: CBC, BMP 10/09/18 06:30 10/09/18 06:30 Imaging - Results Chest X-ray: Report Reviewed, Image Reviewed Cat Scan: Report Reviewed Problem List - Problems (1) Asymptomatic bacteriuria Code(s): R82.71 - BACTERIURIA (2) CHF (congestive heart failure) Code(s): I50.9 - HEART FAILURE, UNSPECIFIED Qualifiers: Heart failure type: unspecified Heart failure chronicity: chronic Qualified Code(s): I50.9 - Heart failure, unspecified (3) COPD exacerbation Code(s): J44.1 - CHRONIC OBSTRUCTIVE PULMONARY DISEASE W (ACUTE) EXACERBATION Assessment/Plan history of ecoli esbl uti and vref in urine culture in 2017 current UA and crine culture consistent with asymptomatic bacteriuria no need to treat rectal culture sent to see if vre isolation can be stopped- f/u culture in am copd/chf appear improved
--- NOTE | 2018-10-09 15:46 | PN ---
Progress Note, Physician Chief Complaint: Cardiology for Dr. Butt History of Present Illness: Dyspnea improving. OOB to chair. - Current Medication List Current Medications: Active Medications Albuterol Sulfate (Ventolin 0.083% Nebulizer Soln -) 1 amp NEB Q4H PRN PRN Reason: SHORT OF BREATH/WHEEZING Amlodipine Besylate (Norvasc -) 10 mg PO DAILY [facility] Last Admin: 10/09/18 09:28 Dose: 10 mg Aspirin (Asa -) 81 mg PO DAILY [facility] Last Admin: 10/09/18 09:28 Dose: 81 mg Budesonide/Formoterol Fumarate (Symbicort 160/4.5mcg -) 2 puff IH BID [facility] Last Admin: 10/09/18 09:30 Dose: 2 puff Finasteride (Proscar -) 5 mg PO DAILY [facility] Last Admin: 10/09/18 09:28 Dose: 5 mg Furosemide (Lasix Injection -) 40 mg IVPUSH DAILY [facility] Last Admin: 10/09/18 09:28 Dose: 40 mg Heparin Sodium (Porcine) (Heparin -) 5,000 unit SQ BID [facility] Last Admin: 10/09/18 09:28 Dose: 5,000 unit Magnesium Oxide (Mag-Ox -) 400 mg PO BID [facility] Last Admin: 10/09/18 09:28 Dose: 400 mg Methylprednisolone Sodium Succinate (Solu-Medrol -) 40 mg IVPUSH DAILY [facility] Last Admin: 10/09/18 09:28 Dose: 40 mg Metoprolol Tartrate (Lopressor -) 50 mg PO BID [facility] Last Admin: 10/09/18 09:28 Dose: 50 mg Mirtazapine (Remeron -) 15 mg PO [facility] Last Admin: 10/08/18 21:13 Dose: 15 mg Montelukast Sodium (Singulair -) 10 mg PO [facility] Last Admin: 10/08/18 21:12 Dose: 10 mg Non-Formulary Medication (Mirabegron [Myrbetriq]) 25 mg PO DAILY [facility] Pantoprazole Sodium (Protonix -) 40 mg PO DAILY [facility] Last Admin: 10/09/18 09:28 Dose: 40 mg Potassium Chloride (K-Dur -) 10 meq PO DAILY [facility] Last Admin: 10/09/18 09:27 Dose: 10 meq Tamsulosin HCl (Flomax -) 0.4 mg PO DAILY@0830 [facility] Last Admin: 10/09/18 09:28 Dose: 0.4 mg Tiotropium [place] (Spiriva Respimat) 2 puff IH DAILY [facility] Last Admin: 10/09/18 09:30 Dose: 2 puff - Objective Vital Signs: Vital Signs Temperature 98.4 F 10/09/18 13:59 Pulse Rate 64 10/09/18 13:59 Respiratory Rate 20 10/09/18 13:59 Blood Pressure 128/68 10/09/18 13:59 O2 Sat by Pulse Oximetry (%) 96 10/09/18 09:00 Constitutional: Yes: No Distress, Calm, Thin Neck: Yes: Supple Cardiovascular: Yes: Regular Rate and Rhythm Respiratory: Yes: Regular, Diminished Gastrointestinal: Yes: Normal Bowel Sounds, Soft Edema: No Labs: CBC, BMP 10/09/18 06:30 10/09/18 06:30 Assessment/Plan - Problems (1) Osteoporosis Code(s): M81.0 - AGE-RELATED OSTEOPOROSIS W/O CURRENT PATHOLOGICAL FRACTURE (2) Chronic obstructive pulmonary disease Assessment/Plan: IV steroids, Singulair, bronchodilators, and O2 per brushing machine operator. Code(s): J44.9 - CHRONIC OBSTRUCTIVE PULMONARY DISEASE, UNSPECIFIED (3) Dementia Code(s): F03.90 - UNSPECIFIED DEMENTIA WITHOUT BEHAVIORAL DISTURBANCE (4) Diastolic CHF Assessment/Plan: On metoprolol 50 bid, amlodipine 10 qd, and change furosemide 40 po qd. Pt is not in respiratory distress. F/u BUN/Cr, electrolytes, Is and Os, and daily weight. Code(s): I50.30 - UNSPECIFIED DIASTOLIC (CONGESTIVE) HEART FAILURE (5) HTN (hypertension) Code(s): I10 - ESSENTIAL (PRIMARY) HYPERTENSION (6) Weakness Code(s): R53.1 - WEAKNESS
[2018-10-09] MEDS: MIRTAZAPINE 15 MG TABLET (FP) PO SCH (22:40)
[2018-10-09] MEDS: MONTELUKAST NA 10 MG TABLET PO SCH (22:40)
[2018-10-10 05:59] LABS: BASO % 0.1 % (0-2.0); HEMATOCRIT 46.3 % (35.4-49); HEMOGLOBIN 15.2 GM/dL (11.7-16.9); LYMPH % 11.1 % (8-40); MCH 27.7 pg (25.7-33.7); MCHC 32.9 g/dl (32.0-35.9); MEAN CELL VOLUME 84.4 fl (80-96); MONO % 10.8 % (3.8-10.2); PLATELET COUNT 310 K/MM3 (134-434); RBC 5.49 M/mm3 (4.00-5.60); RDW 14.4 % (11.9-15.9); WHITE BLOOD COUNT 11.7 K/mm3 (4.0-10.0)
[2018-10-10 06:26] LABS: CREATININE 0.8 mg/dL (0.55-1.3)
[2018-10-10] MEDS ORDERED: predniSONE 20 MG TABLET (UD) PO SCH (10:00)
[2018-10-10] MEDS ORDERED: FUROSEMIDE 40 MG TABLET (FP) PO SCH (10:00)
[2018-10-10] MEDS ORDERED: PT OWN MED DRAWER 7, Y5N ONE (10:17)
[2018-10-10] MEDS: POTASSIUM CHLORIDE TABS 10 MEQ TABLET.ER (FP) PO SCH (10:28)
[2018-10-10] MEDS: amLODIPine BESYLATE 10 MG TABLET (FP) PO SCH (10:29)
[2018-10-10] MEDS: METOPROLOL TARTRATE 50 MG TABLET (FP) PO SCH (10:29)
[2018-10-10] MEDS: HEPARIN NA (PORCINE) 5,000 UNITS/ML 1ML VIAL SQ SCH (10:29)
[2018-10-10] MEDS: FINASTERIDE 5 MG TABLET (FP) PO SCH (10:29)
[2018-10-10] MEDS: PANTOPRAZOLE 40 MG TABLET (FP) PO SCH (10:29)
[2018-10-10] MEDS: MAGNESIUM OXIDE 400 MG TABLET (FP) PO SCH (10:29)
[2018-10-10] MEDS: TAMSULOSIN HCL 0.4 MG CAP PO SCH (10:29)
[2018-10-10] MEDS: TIOTROPIUM BROMIDE 2.5 MCG (SPIRIVA) RESPIMAT INHALER IH SCH (10:30)
[2018-10-10] MEDS: BUDESONIDE/FORMETEROL FUMARATE 160/4.5 mcg INHALER IH SCH (10:30)
[2018-10-10] MEDS: ASPIRIN 81 MG CHEWABLE TABLETS PO SCH (10:31)
--- NOTE | 2018-10-10 10:44 | PN ---
Progress Note (short form) - Note Progress Note: PULMONARY States breathing is overall improving. Minimal cough without wheezing. Became more short of breath after getting worked up over his phone not working. Vital Signs Period Temp Pulse Resp BP Sys/Hernandez Pulse Ox Last 24 Hr 97.6 F-98.4 F 64-100 18-20 128-166/68-91 97 Gen: mildly tachypneic at rest Heart: RRR Lung: distant breath sounds, no wheezes Abd: soft, nontender Ext: no edema, +clubbing CBC, BMP 10/10/18 05:38 10/10/18 05:38 Active Medications Albuterol Sulfate (Ventolin 0.083% Nebulizer Soln -) 1 amp NEB Q4H PRN PRN Reason: SHORT OF BREATH/WHEEZING Amlodipine Besylate (Norvasc -) 10 mg PO DAILY [facility] Last Admin: 10/10/18 10:29 Dose: 10 mg Aspirin (Asa -) 81 mg PO DAILY [facility] Last Admin: 10/10/18 10:31 Dose: 81 mg Budesonide/Formoterol Fumarate (Symbicort 160/4.5mcg -) 2 puff IH BID [facility] Last Admin: 10/10/18 10:30 Dose: 2 puff Finasteride (Proscar -) 5 mg PO DAILY [facility] Last Admin: 10/10/18 10:29 Dose: 5 mg Furosemide (Lasix -) 40 mg PO DAILY [facility] Last Admin: 10/10/18 10:30 Dose: 40 mg Heparin Sodium (Porcine) (Heparin -) 5,000 unit SQ BID [facility] Last Admin: 10/10/18 10:29 Dose: 5,000 unit Magnesium Oxide (Mag-Ox -) 400 mg PO BID [facility] Last Admin: 10/10/18 10:29 Dose: 400 mg Metoprolol Tartrate (Lopressor -) 50 mg PO BID [facility] Last Admin: 10/10/18 10:29 Dose: 50 mg Mirtazapine (Remeron -) 15 mg PO HS [facility] Last Admin: 10/09/18 22:40 Dose: Not Given Montelukast Sodium (Singulair -) 10 mg PO HS [facility] Last Admin: 10/09/18 22:40 Dose: Not Given Non-Formulary Medication (Mirabegron [Myrbetriq]) 25 mg PO DAILY [facility] Pantoprazole Sodium (Protonix -) 40 mg PO DAILY [facility] Last Admin: 10/10/18 10:29 Dose: 40 mg Potassium Chloride (K-Dur -) 10 meq PO DAILY [facility] Last Admin: 10/10/18 10:28 Dose: 10 meq Prednisone (Deltasone -) 40 mg PO DAILY [facility] Last Admin: 10/10/18 10:28 Dose: 40 mg Tamsulosin HCl (Flomax -) 0.4 mg PO DAILY@0830 [facility] Last Admin: 10/10/18 10:29 Dose: 0.4 mg Tiotropium [place] (Spiriva Respimat) 2 puff IH DAILY [facility] Last Admin: 10/10/18 10:30 Dose: 2 puff A/P Acute on Chronic Hypoxic Respiratory Failure improving Acute COPD Exacerbation Lung Nodule LV Diastolic Dysfunction HTN Dementia - prednisone taper - inhaled bronchodilators - O2 to keep SpO2 >90% - continue lasix - monitor urine output, creatinine - DVT prophylaxis - outpt f/u of chest imaging
--- NOTE | 2018-10-10 13:14 | PN ---
Progress Note, Physician History of Present Illness: Mr. Haddad is an 83-year-old black male with a past medical history significant for HTN, COPD (advanced emphysema; bronchiectasis), diastolic CHF, infrarenal aneurysm, dementia, and chronic bilateral pitting edema presents to the emergency department with shortness of breath and lower extremity edema. The patient presents with worsening shortness of breath and non-improving bilateral lower extremity edema despite 100mg PO Lasix and leg elevation. The patient reports she was seen by Dr. Delcid (PCP) on 09/27, who increased PO lasix to 100 mg once a day. The patient reports an additional complaint of 6 weeks of worsening shortness of breath. Per family at bedside, the patient been using his home O2 and nebulizer more than usual for the past 6 weeks. Per daughter at bedside, she reports she visits her father every 6 months. Daughter reports she had noticed an increase in exertional dyspnea, state 6 months ago he was able to ambulate further compared to now. The patient reports PCP instructed him, that is symptoms doesnt improve, follow up at the ER for IV diuretic use. Allergies: NKDA Past Surgical History: Chest tube for pneumothorax, G-tube for dysphagia Social History: Former smoker(Quit 2011). No ETOH or recreational drug use. PCP: Dr. Delcid. - Current Medication List Current Medications: Active Medications Albuterol Sulfate (Ventolin 0.083% Nebulizer Soln -) 1 amp NEB Q4H PRN PRN Reason: SHORT OF BREATH/WHEEZING Amlodipine Besylate (Norvasc -) 10 mg PO DAILY [facility] Last Admin: 10/10/18 10:29 Dose: 10 mg Aspirin (Asa -) 81 mg PO DAILY [facility] Last Admin: 10/10/18 10:31 Dose: 81 mg Budesonide/Formoterol Fumarate (Symbicort 160/4.5mcg -) 2 puff IH BID [facility] Last Admin: 10/10/18 10:30 Dose: 2 puff Finasteride (Proscar -) 5 mg PO DAILY [facility] Last Admin: 10/10/18 10:29 Dose: 5 mg Furosemide (Lasix -) 40 mg PO DAILY [facility] Last Admin: 10/10/18 10:30 Dose: 40 mg Heparin Sodium (Porcine) (Heparin -) 5,000 unit SQ BID [facility] Last Admin: 10/10/18 10:29 Dose: 5,000 unit Magnesium Oxide (Mag-Ox -) 400 mg PO BID [facility] Last Admin: 10/10/18 10:29 Dose: 400 mg Metoprolol Tartrate (Lopressor -) 50 mg PO BID [facility] Last Admin: 10/10/18 10:29 Dose: 50 mg Mirtazapine (Remeron -) 15 mg PO HS [facility] Last Admin: 10/09/18 22:40 Dose: Not Given Montelukast Sodium (Singulair -) 10 mg PO HS [facility] Last Admin: 10/09/18 22:40 Dose: Not Given Non-Formulary Medication (Mirabegron [Myrbetriq]) 25 mg PO DAILY [facility] Pantoprazole Sodium (Protonix -) 40 mg PO DAILY [facility] Last Admin: 10/10/18 10:29 Dose: 40 mg Potassium Chloride (K-Dur -) 10 meq PO DAILY [facility] Last Admin: 10/10/18 10:28 Dose: 10 meq Prednisone (Deltasone -) 40 mg PO DAILY [facility] Last Admin: 10/10/18 10:28 Dose: 40 mg Tamsulosin HCl (Flomax -) 0.4 mg PO DAILY@0830 [facility] Last Admin: 10/10/18 10:29 Dose: 0.4 mg Tiotropium [place] (Spiriva Respimat) 2 puff IH DAILY [facility] Last Admin: 10/10/18 10:30 Dose: 2 puff - Objective Vital Signs: Vital Signs Temperature 97.6 F 10/10/18 04:55 Pulse Rate 100 H 10/10/18 04:55 Respiratory Rate 20 10/10/18 04:55 Blood Pressure 148/72 10/10/18 04:55 O2 Sat by Pulse Oximetry (%) 97 10/09/18 21:00 Eyes: Yes: WNL, Conjunctiva Clear, EOM Intact HENT: Yes: WNL, Atraumatic, Normocephalic Neck: Yes: WNL, Supple, Trachea Midline Cardiovascular: Yes: WNL, Regular Rate and Rhythm Respiratory: Yes: WNL, Regular, CTA Bilaterally Gastrointestinal: Yes: WNL, Normal Bowel Sounds Genitourinary: Yes: WNL Musculoskeletal: Yes: WNL Extremities: Yes: WNL Edema: No Integumentary: Yes: WNL Neurological: Yes: WNL, Alert, Oriented ...Motor Strength: WNL Psychiatric: Yes: WNL Labs: CBC, BMP 10/10/18 05:38 10/10/18 05:38 Assessment/Plan Assessment/Plan - Problems (1) Osteoporosis Code(s): M81.0 - AGE-RELATED OSTEOPOROSIS W/O CURRENT PATHOLOGICAL FRACTURE (2) Chronic obstructive pulmonary disease Assessment/Plan: IV steroids, Singulair, bronchodilators, and O2 per communications director. Code(s): J44.9 - CHRONIC OBSTRUCTIVE PULMONARY DISEASE, UNSPECIFIED (3) Dementia Code(s): F03.90 - UNSPECIFIED DEMENTIA WITHOUT BEHAVIORAL DISTURBANCE (4) Diastolic CHF Assessment/Plan: On metoprolol 50 bid, amlodipine 10 qd, and change furosemide 40 po qd. Pt is not in respiratory distress. F/u BUN/Cr, electrolytes, Is and Os, and daily weight. Code(s): I50.30 - UNSPECIFIED DIASTOLIC (CONGESTIVE) HEART FAILURE (5) HTN (hypertension) Code(s): I10 - ESSENTIAL (PRIMARY) HYPERTENSION (6) Weakness Code(s): R53.1 - WEAKNESS
--- NOTE | 2018-10-10 15:25 | PN ---
Progress Note (short form) - Note Progress Note: Renal follow up for edema/fluid overload Pt seen and examined at the beside awake and alert feels better no sob at rest no chest pain, abd pain, N/V/D making urine Vital Signs Temperature 97.6 F 10/10/18 04:55 Pulse Rate 100 H 10/10/18 04:55 Respiratory Rate 20 10/10/18 04:55 Blood Pressure 148/72 10/10/18 04:55 O2 Sat by Pulse Oximetry (%) 97 10/09/18 21:00 Intake & Output 10/07/18 10/08/18 10/09/18 10/10/18 23:59 23:59 23:59 23:59 Intake Total 840 750 Output Total 600 1700 300 500 Balance -600 -860 450 -500 Weight 62.596 kg NAD, awake and alert RRR, NO M/R CTA, no rales or wheeze soft NT/ND less edema CBC, BMP 10/10/18 05:38 10/10/18 05:38 Renal US - 10.3/10.9, right non-obstructing renal calculi CTA Chest - no PE, emphysematous changes Current Medications Albuterol Sulfate (Ventolin 0.083% Nebulizer Soln -) 1 amp NEB Q4H PRN PRN Reason: SHORT OF BREATH/WHEEZING Amlodipine Besylate (Norvasc -) 10 mg PO DAILY [facility] Last Admin: 10/10/18 10:29 Dose: 10 mg Aspirin (Asa -) 81 mg PO DAILY [facility] Last Admin: 10/10/18 10:31 Dose: 81 mg Budesonide/Formoterol Fumarate (Symbicort 160/4.5mcg -) 2 puff IH BID [facility] Last Admin: 10/10/18 10:30 Dose: 2 puff Finasteride (Proscar -) 5 mg PO DAILY [facility] Last Admin: 10/10/18 10:29 Dose: 5 mg Furosemide (Lasix -) 40 mg PO DAILY [facility] Last Admin: 10/10/18 10:30 Dose: 40 mg Heparin Sodium (Porcine) (Heparin -) 5,000 unit SQ BID [facility] Last Admin: 10/10/18 10:29 Dose: 5,000 unit Magnesium Oxide (Mag-Ox -) 400 mg PO BID [facility] Last Admin: 10/10/18 10:29 Dose: 400 mg Metoprolol Tartrate (Lopressor -) 50 mg PO BID [facility] Last Admin: 10/10/18 10:29 Dose: 50 mg Mirtazapine (Remeron -) 15 mg PO HS [facility] Last Admin: 10/09/18 22:40 Dose: Not Given Montelukast Sodium (Singulair -) 10 mg PO HS [facility] Last Admin: 10/09/18 22:40 Dose: Not Given Non-Formulary Medication (Mirabegron [Myrbetriq]) 25 mg PO DAILY [facility] Pantoprazole Sodium (Protonix -) 40 mg PO DAILY [facility] Last Admin: 10/10/18 10:29 Dose: 40 mg Potassium Chloride (K-Dur -) 10 meq PO DAILY [facility] Last Admin: 10/10/18 10:28 Dose: 10 meq Prednisone (Deltasone -) 40 mg PO DAILY [facility] Last Admin: 10/10/18 10:28 Dose: 40 mg Tamsulosin HCl (Flomax -) 0.4 mg PO DAILY@0830 [facility] Last Admin: 10/10/18 10:29 Dose: 0.4 mg Tiotropium [place] (Spiriva Respimat) 2 puff IH DAILY [facility] Last Admin: 10/10/18 10:30 Dose: 2 puff 83 year old gentleman with hx of hypertension, CHF, COPD, LE edema who presents with complaints of LE edema and SOB. #SOB due to COPD +/- HF #LE edema from HF vs. chronic venous insufficiency #COPD #Hx of HF #? BPH #Hypervolemic Hyponatremia Renal function appears normal and at baseline Clinically improved continue present dose of diuretics taper steroids as per pulmonary serum Na improved Thank you Lucas Fontaine DO
--- NOTE | 2018-10-10 15:46 | DS ---
Physical Examination Vital Signs: Vital Signs Temperature 97.6 F 10/10/18 04:55 Pulse Rate 100 H 10/10/18 04:55 Respiratory Rate 20 10/10/18 04:55 Blood Pressure 148/72 10/10/18 04:55 O2 Sat by Pulse Oximetry (%) 97 10/09/18 21:00 Findings/Remarks: no edema, walked with walker with PT currently in bed awake alert NAD VSS afebrile no c/o wants to go home (not to rehab) d/w - he has home O2, will get TEST LEAD APPLICATION TESTING VNS and PT rehab at home per CM/ insurance f/u needed d/w pt and script done as needed; Constitutional: Yes: No Distress, Calm Eyes: Yes: Conjunctiva Clear HENT: Yes: Atraumatic Neck: Yes: Supple Cardiovascular: Yes: Regular Rate and Rhythm Respiratory: Yes: CTA Bilaterally Gastrointestinal: Yes: Soft. No: Tenderness Renal/: No: CVA Tenderness - Left, CVA Tenderness - Right, Hematuria Musculoskeletal: No: Joint Stiffness, Joint Swelling Extremities: No: Cold, Cool, Cyanosis Edema: No Integumentary: No: Erythema, Rash, Venous Stasis Changes Neurological: Yes: WNL, Alert, Oriented ...Motor Strength: WNL Psychiatric: Yes: WNL, Alert, Oriented. No: Agitated, Suicidal Ideation Labs: CBC, BMP 10/10/18 05:38 10/10/18 05:38 Discharge Summary Reason For Visit: CONGESTIVE HEART FAILURE,CHRONIC OBSTRUCTIVE Current Active Problems Abnormal liver function tests (Acute) Acute on chronic respiratory failure with hypoxemia (Acute) CHF (congestive heart failure) (Acute) COPD exacerbation (Acute) Constipation (Acute) Osteoporosis (Acute) Prostate cancer (Acute) Renal calculi (Acute) Stricture intestinal (Acute) Venous (peripheral) insufficiency (Acute) Venous insufficiency (Acute) Procedures: Principal: 83 YOM ASHD, HTN, dyastolic CHF, COPD, BPH, urinary bladder CA, OA DJD, admitted with acute on chronic dyastolic CHF and COPD exac ( SOB, SMART, bilateral legs edema) Other Procedures: received IV lasix, IV steroids; nebs; seen by cardiology, pulmonary; Hospital Course: improved with above; DC home and f/u as advised Condition: Improved - Instructions Diet, Activity, Other Instructions: f/u PCP cardiology and pulmonary in 2-4 weeks; check labs in 1-[address] no ivc in 6 months; RTER if worse or recurrent c/o; f/u for h/o prostate CA; GI f/u dr Hollins in 2-3 months; falls PFX; home O2 NC as ordered; home VNS, home PT rehab; Referrals: Kwan Butt MD [Staff Physician] - Gini Delcid [Primary Care Provider] - Abimael Knapp MD [Staff Physician] - Jignesh Singletary MD [Staff Physician] - Tab Hollins MD [Staff Physician] - Disposition: VNS/HOME HEALTH CARE - Home Medications Comprehensive Discharge Medication List: Ambulatory Orders Finasteride [Proscar -] 5 mg PO DAILY tablet 12/25/16 Amlodipine Besylate [Norvasc -] 10 mg PO DAILY #0 tablet 06/26/17 Aspirin [ASA -] 81 mg PO DAILY #90 tab 06/26/17 Budesonide/Formeterol Fumarate [SYMBICORT 160/4.5mcg -] 1 puff IH BID #1 inhaler 06/26/17 Magnesium Oxide [Mag-Ox -] 400 mg PO BID #0 tablet 06/26/17 Metoprolol Tartrate [Lopressor -] 50 mg PO BID #0 tablet 06/26/17 Mirtazapine [Remeron -] 15 mg PO HS #0 tablet 06/26/17 Montelukast Na [Singulair -] 10 mg PO HS #30 tablet 06/26/17 Pantoprazole Sodium [Protonix -] 40 mg PO DAILY #20 tablet.ec 06/26/17 Potassium Chloride 10 meq PO DAILY #30 capsule.er 06/26/17 Tamsulosin HCl [Flomax -] 0.4 mg PO DAILY@0830 #0 cap 06/26/17 Tiotropium [place] [Spiriva] 1 inh IH DAILY 30 Days #1 inh MDD 1 06/27/17 Mirabegron [Myrbetriq] 25 mg PO DAILY 10/06/18 Furosemide [Lasix -] 40 mg PO BID tablet 10/10/18 Prednisone 10 mg PO DAILY #20 tablet 10/10/18
[2018-10-10 15:59] VITALS: BP 140/60; PULSE 98; TEMP 97.8
== END 2018-10-10 17:13 | disposition home health service (06) | DRG 291 ==
LOC: JER 13:31 → JERBED 20:01 → J6S 10-07 01:26
PROVIDERS: ADMIT Internal Medicine; ATTEND Internal Medicine
DX: I11.0 Hypertensive heart disease with heart failure (principal); J96.21 Acute and chronic respiratory failure with hypoxia; E87.1 Hypo-osmolality and hyponatremia; J44.1 Chronic obstructive pulmonary disease with (acute) exacerbation; I50.33 Acute on chronic diastolic (congestive) heart failure; F03.90 Unspecified dementia, unspecified severity, without behavioral disturbance, psychotic disturbance, mood disturbance, and anxiety; N20.0 Calculus of kidney; I87.2 Venous insufficiency (chronic) (peripheral); K59.00 Constipation, unspecified; M81.0 Age-related osteoporosis without current pathological fracture; E87.70 Fluid overload, unspecified; R91.8 Other nonspecific abnormal finding of lung field; R53.1 Weakness
CPT/HCPCS: 36415; 36600; 71046-TC-FY; 71275-TC; 76700-TC; 76775-TC; 76856-TC; 80048; 80053; 80076; 81003; 82105; 82565; 82803; 82977; 83036; 83735; 83880; 84156; 85025; 87081; 87086; 93005; 93010; 93306-TC; 93970-TC; 97116-GP; 97161-GP; 99282-25; J1644

== ENCOUNTER 2019-01-12 17:04 | Emergency (ER) | payer OTHER, BC ==
--- NOTE | 2019-01-12 17:11 | PDOC ---
Rapid Medical Evaluation Time Seen by Provider: 01/12/19 17:09 Medical Evaluation: Allergies Allergy/AdvReac Type Severity Reaction Status Date / Time No Known Allergies Allergy Verified 10/06/18 13:35 01/12/19 17:09 I have performed a brief in-person evaluation of this patient. The patient presents with a chief complaint of: itchy rash to b/l elbows Pertinent physical exam findings: flesh colored non mobile papules to b/l elbows for 1 day I have ordered the following: nothing The patient will proceed to the ED for further evaluation. Discharge Disposition - Diagnosis Rash - Referrals - Patient Instructions - Post Discharge Activity
[2019-01-12 17:13] VITALS: BP 170/80; PULSE 72; TEMP 98.4; BMI 21.9
--- NOTE | 2019-01-12 17:53 | PDOC ---
History of Present Illness - General Chief Complaint: Rash Stated Complaint: ITCHING Time Seen by Provider: 01/12/19 17:09 - History of Present Illness Initial Comments: 01/12/19 18:00 CHIEF COMPLAINT: itching HISTORY OF PRESENT ILLNESS: 83 yo M with hx of HTN, HLD, COPD, CHF and chronic bilateral pitting edema presents to fast track with complaint of only itching to bilateral elbows since this morning. Patient denies any pain and states "it' s just annoying." Denies any other symptoms including chest pain, shortness of breath, pain, fever, chills, n/v/d. Per , patient only complained to her of the itching this morning as well. Patient and deny any recent change in medication or exposure to allergens including new foods, laundry detergent, pets , fragrances. No recent travel or sick contacts. PAST MEDICAL HISTORY: HTN, COPD, CHF, dementia, prostate CA FAMILY HISTORY: Denies SOCIAL HISTORY: Denies tobacco, alcohol, illicit drug use. SURGICAL HISTORY: Denies ALLERGIES: No known drug allergies REVIEW OF SYSTEMS General/Constitutional: Denies fever or chills. Denies weakness, weight change. HEENT: Denies change in vision. Denies ear pain or discharge. Denies sore throat. Cardiovascular: Denies chest pain or shortness of breath. Respiratory: Denies cough, wheezing, or hemoptysis. Gastrointestinal: Denies nausea, vomiting, diarrhea or constipation. Denies rectal bleeding. Genitourinary: Denies dysuria, frequency, or change in urination. Musculoskeletal: Denies joint or muscle swelling or pain. Denies neck or back pain. Skin: itching to bilateral elbows Neurologic: Denies headache, vertigo, loss of consciousness, or loss of sensation. PHYSICAL EXAM General Appearance: Well-appearing, appropriately dressed. No apparent distress , no intoxication. HEENT: EOMI, PERRLA, normal ENT inspection, normal voice, TMs normal, pharynx normal. No conjunctival pallor. No photophobia, scleral icterus. Neck: Supple. Trachea midline. No tenderness, rigidity, carotid bruit, stridor , lymphadenopathy, or thyromegaly. Respiratory/Chest: Lungs CTAB. No shortness of breath, chest tenderness, respiratory distress, accessory muscle use. No crackles, rales, rhonchi, stridor , wheezing, dullness Cardiovascular: RRR. S1, S2. No JVD, murmur, bradycardia, tachycardia. Vascular Pulses: Dorsalis-Pedis (R): 2+, Dorsalis-Pedis (L): 2+ Gastrointestinal/Abdominal: Normal bowel sounds. Abdomen soft, non-distended. No tenderness or rebound tenderness. No organomegaly, pulsatile mass, guarding , hernia, hepatomegaly, splenomegaly. Lymphatic: No adenopathy, tenderness. Musculoskeletal/Extremities: Normal inspection. FROM of all extremities, normal capillary refill. Pelvis Stable. No CVA tenderness. No tenderness to extremities, pedal edema, swelling, erythema or deformity. Integumentary: Dry, flaky skin with pruritic papules to b/l elbows. No erythema , warmth, swelling. Appropriate color, dry, warm. No cyanosis, erythema, jaundice or rash Neurologic: flotation tender II-XII intact. Fully oriented, alert. Appropriate mood/affect. Motor strength 5/5. No appreciable EOM palsy, facial droop or sensory deficit. 01/12/19 18:13 Past History - Past Medical History Allergies/Adverse Reactions: Allergies Allergy/AdvReac Type Severity Reaction Status Date / Time No Known Allergies Allergy Verified 01/12/19 17:13 Home Medications: Ambulatory Orders Finasteride [Proscar -] 5 mg PO DAILY tablet 12/25/16 Amlodipine Besylate [Norvasc -] 10 mg PO DAILY #0 tablet 06/26/17 Aspirin [ASA -] 81 mg PO DAILY #90 tab 06/26/17 Budesonide/Formeterol Fumarate [SYMBICORT 160/4.5mcg -] 1 puff IH BID #1 inhaler 06/26/17 Magnesium Oxide [Mag-Ox -] 400 mg PO BID #0 tablet 06/26/17 Metoprolol Tartrate [Lopressor -] 50 mg PO BID #0 tablet 06/26/17 Mirtazapine [Remeron -] 15 mg PO HS #0 tablet 06/26/17 Montelukast Na [Singulair -] 10 mg PO HS #30 tablet 06/26/17 Pantoprazole Sodium [Protonix -] 40 mg PO DAILY #20 tablet.ec 06/26/17 Potassium Chloride 10 meq PO DAILY #30 capsule.er 06/26/17 Tamsulosin HCl [Flomax -] 0.4 mg PO DAILY@0830 #0 cap 06/26/17 Tiotropium [place] [Spiriva] 1 inh IH DAILY 30 Days #1 inh MDD 1 06/27/17 Mirabegron [Myrbetriq] 25 mg PO DAILY 10/06/18 Furosemide [Lasix -] 40 mg PO BID tablet 10/10/18 Prednisone 10 mg PO DAILY #20 tablet 10/10/18 Triamcinolone 0.5% Cream [Aristocort 0.5% Cream -] 1 applic TP BID #1 tube 01/12 Anemia: No Asthma: Yes Cancer: No Cardiac Disorders: Yes (AAA) CVA: Yes (Mild R hemiparesis) COPD: Yes CHF: No Dementia: Yes Diabetes: Yes (Borderline) GI Disorders: Yes (obstruction) Disorders: Yes (BPH) HTN: Yes Hypercholesterolemia: Yes Liver Disease: No Seizures: No Thyroid Disease: No - Surgical History Abdominal Surgery: Yes (g.tube) Appendectomy: No Cardiac Surgery: No Cholecystectomy: No Lung Surgery: Yes (chest tube for pneumothorax) Neurologic Surgery: No - Immunization History Immunization Up to Date: Yes - Suicide/Smoking/Psychosocial Hx Smoking Status: Yes Smoking History: Never smoked Have you smoked in the past 12 months: No Number of Cigarettes Smoked Daily: 10 If you are a former smoker, when did you quit?: 2016 Information on smoking cessation initiated: No 'Breaking Loose' booklet given: 03/03/16 Hx Alcohol Use: No Drug/Substance Use Hx: No Substance Use Type: None Hx Substance Use Treatment: No *Physical Exam - Vital Signs Last Vital Signs Temp Pulse Resp BP Pulse Ox 98.4 F 72 18 170/80 98 01/12/19 17:10 01/12/19 17:10 01/12/19 17:10 01/12/19 17:10 01/12/19 17:10 Medical Decision Making - Medical Decision Making 01/12/19 18:07 83 yo M with hx of HTN, HLD, COPD, CHF and chronic bilateral pitting edema presents to fast track with complaint of only itching to bilateral elbows since this morning. -triamcinolone cream sent to rx *DC/Admit/Observation/Transfer Diagnosis at time of Disposition: Atopic dermatitis Qualifiers: Atopic dermatitis type: unspecified Qualified Code(s): L20.9 - Atopic dermatitis, unspecified - Discharge Dispostion Disposition: HOME Condition at time of disposition: Stable Decision to Admit order: No - Prescriptions Prescriptions: Triamcinolone 0.5% Cream [Aristocort 0.5% Cream -] 1 applic TP BID #1 tube - Referrals Referrals: Renee Vogel MD [Staff Physician] - - Patient Instructions Printed Discharge Instructions: DI for Itching - Post Discharge Activity
== END 2019-01-12 18:28 | disposition home or self-care (01) ==
LOC: JERFT 17:04
DX: L20.9 Atopic dermatitis, unspecified (principal); I10 Essential (primary) hypertension; E78.5 Hyperlipidemia, unspecified; J44.9 Chronic obstructive pulmonary disease, unspecified; I50.9 Heart failure, unspecified; Z87.891 Personal history of nicotine dependence
CPT/HCPCS: 99281-25

== ENCOUNTER 2019-01-21 17:10 | Emergency (ER) | payer OTHER, BC ==
[2019-01-21 17:21] VITALS: TEMP 98; BMI 21.4
--- NOTE | 2019-01-21 17:39 | PDOC ---
History of Present Illness - General Chief Complaint: Wound Stated Complaint: BLISTER TO RT LEG Time Seen by Provider: 01/21/19 17:36 History Source: Patient, Family - History of Present Illness Initial Comments: 01/21/19 18:16 Mr. Haddad is an 83 y/o man with hx CHF, prior CVA, HTN, HLD, COPD, dementia p/ w one day of blister on his RLE. He is accompanied by his who assisted in providing history. They report that he is being managed for chronic lower extremity edema due to venous stasis changes, and that his lower extremity edema has been stable. She reports that he has ongoing anterior RLE blistering, and today he alerted her that he had a larger blister on his posterior R cardoza. She reports becoming concern after seeing the blister, and decided to bring him in for further evaluation. He denies any shortness of breath, fevers, pain anywhere, fatigue, chills, night sweats, difficulty ambulating, lower extremity pain, confusion, chest pain, abdominal pain. He is already being seen by wound care, and is being worked up for his ongoing chronic LE edema. Past History - Past Medical History Allergies/Adverse Reactions: Allergies Allergy/AdvReac Type Severity Reaction Status Date / Time No Known Allergies Allergy Verified 01/21/19 17:21 Home Medications: Ambulatory Orders Aspirin [ASA -] 81 mg PO DAILY #90 tab 06/26/17 Budesonide/Formeterol Fumarate [SYMBICORT 160/4.5mcg -] 1 puff IH BID #1 inhaler 06/26/17 Montelukast Na [Singulair -] 10 mg PO HS #30 tablet 06/26/17 Furosemide [Lasix -] 40 mg PO BID tablet 10/10/18 Amlodipine Besylate [Norvasc -] 5 mg PO DAILY 01/21/19 Atorvastatin Ca [Lipitor] 40 mg PO HS 01/21/19 Carvedilol [Coreg -] 6.25 mg PO DAILY 01/21/19 Clopidogrel Bisulfate [Plavix] 75 mg PO DAILY 01/21/19 Hydrochlorothiazide [Hctz -] 12.5 mg PO DAILY 01/21/19 Labetalol HCl [Normodyne -] 200 mg PO DAILY 01/21/19 Anemia: No Asthma: Yes Cancer: No Cardiac Disorders: Yes (AAA) CVA: Yes (Mild R hemiparesis) COPD: Yes CHF: No Dementia: Yes Diabetes: Yes (Borderline) GI Disorders: Yes (obstruction) Disorders: Yes (BPH) HTN: Yes Hypercholesterolemia: Yes Liver Disease: No Seizures: No Thyroid Disease: No - Surgical History Abdominal Surgery: Yes (g.tube -removed) Appendectomy: No Cardiac Surgery: No Cholecystectomy: No Lung Surgery: Yes (chest tube for pneumothorax) Neurologic Surgery: No - Immunization History Immunization Up to Date: Yes - Suicide/Smoking/Psychosocial Hx Smoking Status: Yes Smoking History: Never smoked Have you smoked in the past 12 months: No Number of Cigarettes Smoked Daily: 10 If you are a former smoker, when did you quit?: 2015 'Breaking Loose' booklet given: 03/03/16 Hx Alcohol Use: No Drug/Substance Use Hx: No Substance Use Type: None Hx Substance Use Treatment: No Review of Systems - Review of Systems Able to Perform ROS?: Yes Comments:: 01/21/19 18:31 ROS: GENERAL/CONSTITUTIONAL: No fever or chills. No weakness. HEAD, EYES, EARS, NOSE AND THROAT: No change in vision. No ear pain or discharge. No sore throat. CARDIOVASCULAR: No chest pain or shortness of breath RESPIRATORY: No cough, wheezing, or hemoptysis. GASTROINTESTINAL: No nausea, vomiting, diarrhea or constipation. GENITOURINARY: No dysuria, frequency, or change in urination. MUSCULOSKELETAL: RLE blistering. No joint or muscle swelling or pain. No neck or back pain. SKIN: No rash NEUROLOGIC: No headache, vertigo, loss of consciousness, or change in strength/ sensation. ENDOCRINE: No increased thirst. No abnormal weight change HEMATOLOGIC/LYMPHATIC: No anemia, easy bleeding, or history of blood clots. ALLERGIC/IMMUNOLOGIC: No hives or skin allergy. *Physical Exam - Vital Signs Last Vital Signs Temp Pulse Resp BP Pulse Ox 98 F 61 20 196/83 H 94 L 01/21/19 17:11 01/21/19 17:11 01/21/19 17:11 01/21/19 17:11 01/21/19 17:11 - Physical Exam Comments: 01/21/19 18:34 PE: GENERAL: Awake, alert, and fully oriented, in no acute distress HEAD: No signs of trauma, normocephalic, atraumatic EYES: PERRLA, EOMI, sclera anicteric, conjunctiva clear ENT: Auricles normal inspection, hearing grossly normal, nares patent, oropharynx clear without exudates. Moist mucosa NECK: Normal ROM, supple, no lymphadenopathy, JVD, or masses LUNGS: No distress, speaks full sentences, clear to auscultation bilaterally HEART: Regular rate and rhythm, normal S1 and S2, no murmurs, rubs or gallops, peripheral pulses normal and equal bilaterally. ABDOMEN: Soft, nontender, normoactive bowel sounds. No guarding, no rebound. No masses EXTREMITIES : Blister on posterior R lower cardoza, approx 7cm across. Blister popped, still overlying skin remains in place. No surrounding erythema. Mild drainage from blister site. 2+ bilater LE edema. Venous stasis changes on bilateral LE. Normal range of motion. No clubbing or cyanosis NEUROLOGICAL: Cranial nerves II through XII grossly intact. Normal speech, normal gait, no focal sensorimotor deficits SKIN: Warm, Dry, normal turgor except as described above Medical Decision Making - Medical Decision Making 01/21/19 18:28 83 M with hx CHF, HTN, HLD p/w one day of LE blister, popped before evaluation, no shortness of breath, fevers, chills. Differential most likely for blistering due to venous stasis. Otherwise stable, well appearing, with no other symptoms at this time, no signs of sepsis. Plan: Light wrapping, xeroform layer Dispo: Discharge home, PCP follow up, wound care follow up ([phone]) 01/21/19 18:52 Leg wrapped, patient counseled on wound care, return precautions. Plan for discharge home. *DC/Admit/Observation/Transfer Diagnosis at time of Disposition: Blister - Discharge Dispostion Disposition: HOME Condition at time of disposition: Stable Decision to Admit order: No - Referrals - Patient Instructions Printed Discharge Instructions: DI for Blisters Additional Instructions: You were evaluated in the Emergency Department for a blister on your right leg. We examined the blister - it appears to have popped. We wrapped the blister site and placed xeroform gauze over the injury. Please follow up with wound care as soon as possible, within the next 3 days. Call Wound Care ([phone] ) to make an appointment before the one that you currently have scheduled. Please return to the Emergency Department if you develop high fevers, chills, difficulty breathing, dizziness, or any other concerning symptom. - Post Discharge Activity
[2019-01-21 19:01] VITALS: BP 165/68; PULSE 64
--- NOTE | 2019-01-21 19:12 | PDOC ---
Documentation entered by Linette Contreras SCRIBE, acting as scribe for Yaritza Blanton MD. Yaritza Blanton MD: This documentation has been prepared by the valorieibe, Linette Contreras SCRIBE, under my direction and personally reviewed by me in its entirety. I confirm that the documentation accurately reflects all work, treatment, procedures, and medical decision making performed by me. Attending Attestation - Resident Resident Name: Triston Calvin - ED Attending Attestation I have performed the following: I have examined & evaluated the patient, The case was reviewed & discussed with the resident, I agree w/resident's findings & plan, Exceptions are as noted - HPI HPI: 01/21/19 19:00 The patient is an 83-year-old male with a past medical history significant for CHF, chronic venous stasis who presents to the emergency department with a blister to the right cardoza. The patient reports a chronic history of blisters to the lower extremities, however, patients noticed a new blister presentation to the right cardoza, was concerned and decided to present to the ER for evaluation. [place] fever, chills, chest pain, or shortness of breath. Allergies: NKDA - Physicial Exam PE: GENERAL: Awake, alert, and fully oriented, in no acute distress HEAD: No signs of trauma EYES: PERRLA, EOMI, sclera anicteric, conjunctiva clear ENT: Auricles normal inspection, hearing grossly normal, nares patent, oropharynx clear without exudates. Moist mucosa NECK: Normal ROM, supple, no lymphadenopathy, JVD, or masses LUNGS: Breath sounds equal, clear to auscultation bilaterally. No wheezes, and no crackles HEART: Regular rate and rhythm, normal S1 and S2, no murmurs, rubs or gallops ABDOMEN: Soft, nontender, normoactive bowel sounds. No guarding, no rebound. No masses EXTREMITIES: Normal range of motion, no edema. No clubbing or cyanosis. No cords, erythema, or tenderness NEUROLOGICAL: Cranial nerves II through XII grossly intact. Normal speech, normal gait. Motor and sensation intact SKIN: Warm, dry, normal turgor. +Open lesion to R posterior lower leg, draining clear fluid. No erythema, no swelling, no odor. - Medical Decision Making Pt with large blister to lower leg, no signs of cellulitis. Will do local wound care, f/u with wound care clinic as an outpatient.
== END 2019-01-21 19:02 | disposition home or self-care (01) ==
LOC: JER 17:10
DX: S80.821A Blister (nonthermal), right lower leg, initial encounter (principal); I87.8 Other specified disorders of veins; I11.0 Hypertensive heart disease with heart failure; I50.9 Heart failure, unspecified; E78.00 Pure hypercholesterolemia, unspecified; N40.0 Benign prostatic hyperplasia without lower urinary tract symptoms; I69.851 Hemiplegia and hemiparesis following other cerebrovascular disease affecting right dominant side; E11.9 Type 2 diabetes mellitus without complications; F03.90 Unspecified dementia, unspecified severity, without behavioral disturbance, psychotic disturbance, mood disturbance, and anxiety; J45.909 Unspecified asthma, uncomplicated; X58.XXXA Exposure to other specified factors, initial encounter; Y93.89 Activity, other specified; Y99.8 Other external cause status; Y92.038 Other place in apartment as the place of occurrence of the external cause
CPT/HCPCS: 99283-25

== ENCOUNTER 2019-04-17 07:33 | Inpatient (IN) | payer OTHER, BC ==
--- NOTE | 2019-04-17 07:56 | PDOC ---
History of Present Illness - General Stated Complaint: R/O FLU Time Seen by Provider: 04/17/19 07:42 - History of Present Illness Initial Comments: Mr. Haddad is an 83 y/o man with hx CHF, prior CVA, HTN, HLD, COPD, dementia, presenting today with cough and shortness of breath that started on . Reports that he did not have heat in his apartment last week and thinks he caught a cold from there. Reports productive cough and chest/nasal congestion since . He used his nebulizer at home several times with minimal relief and started using his home O2 (at baseline he does not use any O2). Reports fever (unsure of when it began) without chills. Denies chest pain. Denies abdominal pain. Denies urinary symptoms. Denies diarrhea. Reports mild headache. called the ambulance today because patient began acting confused at home, asking where he is. At bedside patient is A&Ox4. Past History - Past Medical History Allergies/Adverse Reactions: Allergies Allergy/AdvReac Type Severity Reaction Status Date / Time No Known Allergies Allergy Verified 01/21/19 17:21 Home Medications: Ambulatory Orders Aspirin [ASA -] 81 mg PO DAILY #90 tab 06/26/17 Budesonide/Formeterol Fumarate [SYMBICORT 160/4.5mcg -] 1 puff IH BID #1 inhaler 06/26/17 Montelukast Na [Singulair -] 10 mg PO HS #30 tablet 06/26/17 Furosemide [Lasix -] 40 mg PO BID tablet 10/10/18 Atorvastatin Ca [Lipitor] 40 mg PO HS 01/21/19 Carvedilol [Coreg -] 6.25 mg PO DAILY 01/21/19 Clopidogrel Bisulfate [Plavix] 75 mg PO DAILY 01/21/19 Labetalol HCl [Normodyne -] 200 mg PO DAILY 01/21/19 Amlodipine Besylate 10 mg PO DAILY 04/17/19 Azithromycin 250 mg PO DAILY 04/17/19 Benzonatate 04/17/19 Doxazosin Mesylate [Cardura -] 2 mg PO DAILY 04/17/19 Anemia: No Asthma: Yes Cancer: No Cardiac Disorders: Yes (AAA) CVA: Yes (Mild R hemiparesis) COPD: Yes CHF: No Dementia: Yes Diabetes: Yes (Borderline) GI Disorders: Yes (obstruction) Disorders: Yes (BPH) HTN: Yes Hypercholesterolemia: Yes Liver Disease: No Seizures: No Thyroid Disease: No - Surgical History Abdominal Surgery: Yes (g.tube -removed) Appendectomy: No Cardiac Surgery: No Cholecystectomy: No Lung Surgery: Yes (chest tube for pneumothorax) Neurologic Surgery: No - Immunization History Immunization Up to Date: Yes - Psycho Social/Smoking Cessation Hx Smoking Status: Yes Smoking History: Former smoker Have you smoked in the past 12 months: No Number of Cigarettes Smoked Daily: 10 If you are a former smoker, when did you quit?: 7 years ago 'Breaking Loose' booklet given: 03/03/16 Hx Alcohol Use: No Drug/Substance Use Hx: No Substance Use Type: None Hx Substance Use Treatment: No Review of Systems - Review of Systems Comments:: GENERAL/CONSTITUTIONAL: Reports fever. Reports malaise. No chills. HEAD, EYES, EARS, NOSE AND THROAT: No change in vision. No change in hearing. No sore throat._ CARDIOVASCULAR: No chest pain. Reports shortness of breath. RESPIRATORY: Reports productive cough. GASTROINTESTINAL: No nausea, vomiting, diarrhea or constipation._ GENITOURINARY: No dysuria, frequency, or change in urination._ MUSCULOSKELETAL: No joint or muscle swelling or pain. No neck or back pain._ SKIN: No rash_ NEUROLOGIC: Reports mild headache. No vertigo, loss of consciousness, or change in strength/sensation._ ENDOCRINE: No increased thirst. No abnormal weight change_ HEMATOLOGIC/LYMPHATIC: No anemia, easy bleeding, or history of blood clots._ ALLERGIC/IMMUNOLOGIC: No hives or skin allergy._ *Physical Exam - Physical Exam GENERAL: Awake, alert, and oriented to person/place/time, in no acute distress_ HEAD: No signs of trauma, normocephalic, atraumatic _ EYES: PERRLA, EOMI, conjunctiva clear_ ENT: Hearing grossly normal, mucous in bilateral nares. No uvular deviation. NECK: Normal ROM, supple, no lymphadenopathy, JVD, or masses_ LUNGS: In mild respiratory distress, speaks in full sentences. Bibasilar crackles present. HEART: Regular rate and rhythm, normal S1 and S2, no murmurs appreciated, peripheral pulses normal and equal bilaterally._ ABDOMEN: Soft, nontender, normoactive bowel sounds. No guarding, no rebound. No masses_ EXTREMITIES: Normal inspection, Normal range of motion, 3+ pitting edema in bilateral lower extremities. No clubbing or cyanosis_ NEUROLOGICAL: Cranial nerves II through XII grossly intact. Normal speech, normal gait, no focal sensorimotor deficits _ SKIN: Warm, Dry, normal turgor, no rashes or lesions noted_ ED Treatment Course - LABORATORY CBC & Chemistry Diagram: 04/17/19 17:55 04/17/19 17:55 Medical Decision Making - Medical Decision Making 04/17/19 07:56 84M hx of CHF COPD HTN HLD dementia presenting with cough and shortness of breath since . DDx includes CHF exacerbation vs COPD exacerbation vs pneumonia -cbc, cmp, bnp -cxr, ekg, trop -ua, ucx -blood cx -lactic -flu swab 04/17/19 08:25 EKG shows NSR, 100 bpm, no ST elevation/depression, no axis deviation, QTc 461. 04/17/19 08:36 -1 duoneb given pt's hx of copd 04/17/19 08:38 CXR shows RLL consolidation. -will give levaquin and zosyn 04/17/19 09:23 D/w Dr. Delcid who accepts the patient for admission to med surg. 04/17/19 09:27 Labs reviewed. Laboratory Tests 04/17/19 04/17/19 04/17/19 08:05 08:05 08:05 WBC RBC Hgb Hct MCV MCH MCHC RDW Plt Count MPV Absolute Neuts (auto) Neutrophils % Lymphocytes % Monocytes % Eosinophils % Basophils % Nucleated RBC % PT with INR 12.80 INR 1.08 PTT (Actin FS) 27.7 VBG pH POC VBG pCO2 POC VBG pO2 VBG HCO3 VBG O2 Sat (Frederic) VBG Base Excess Sodium Potassium Chloride Carbon Dioxide Anion Gap BUN Creatinine Est GFR (CKD-EPI)AfAm Est GFR (CKD-EPI)NonAf Random Glucose Lactic Acid 1.5 Calcium Total Bilirubin AST ALT Alkaline Phosphatase Troponin I < 0.02 B-Natriuretic Peptide Total Protein Albumin Influenza A (Rapid) Influenza B (Rapid) 04/17/19 04/17/19 04/17/19 08:05 08:05 08:05 WBC 9.4 RBC 5.32 Hgb 14.5 Hct 44.7 MCV 84.1 MCH 27.2 MCHC 32.3 RDW 14.5 Plt Count 330 MPV 7.3 L Absolute Neuts (auto) 6.9 Neutrophils % 73.2 Lymphocytes % 9.0 Monocytes % 16.9 H Eosinophils % 0.3 D Basophils % 0.6 D Nucleated RBC % 0 PT with INR INR PTT (Actin FS) VBG pH 7.42 H POC VBG pCO2 46.6 POC VBG pO2 59.1 H VBG HCO3 29.4 H VBG O2 Sat (Frederic) 89.5 H VBG Base Excess 4.4 H Sodium 136 Potassium 4.1 Chloride 98 Carbon Dioxide 29 Anion Gap 8 BUN 12.4 Creatinine 0.9 Est GFR (CKD-EPI)AfAm 90.58 Est GFR (CKD-EPI)NonAf 78.15 Random Glucose 119 H Lactic Acid Calcium 9.4 Total Bilirubin 1.5 H AST 34 ALT 39 Alkaline Phosphatase 117 Troponin I B-Natriuretic Peptide 1186.0 H Total Protein 6.6 Albumin 3.3 L Influenza A (Rapid) Influenza B (Rapid) 04/17/19 08:05 WBC RBC Hgb Hct MCV MCH MCHC RDW Plt Count MPV Absolute Neuts (auto) Neutrophils % Lymphocytes % Monocytes % Eosinophils % Basophils % Nucleated RBC % PT with INR INR PTT (Actin FS) VBG pH POC VBG pCO2 POC VBG pO2 VBG HCO3 VBG O2 Sat (Frederic) VBG Base Excess Sodium Potassium Chloride Carbon Dioxide Anion Gap BUN Creatinine Est GFR (CKD-EPI)AfAm Est GFR (CKD-EPI)NonAf Random Glucose Lactic Acid Calcium Total Bilirubin AST ALT Alkaline Phosphatase Troponin I B-Natriuretic Peptide Total Protein Albumin Influenza A (Rapid) Negative Influenza B (Rapid) Negative Discharge - Discharge Information Problems reviewed: Yes Clinical Impression/Diagnosis: COPD exacerbation Condition: Guarded - Admission Yes - Follow up/Referral - Patient Discharge Instructions - Post Discharge Activity
--- NOTE | 2019-04-17 08:05 | PDOC ---
Attending Attestation - Resident Resident Name: JohannVadim - ED Attending Attestation I have performed the following: I have examined & evaluated the patient, The case was reviewed & discussed with the resident, I agree w/resident's findings & plan, Exceptions are as noted - HPI HPI: 04/17/19 08:02 84y M history of CHF, prior CVA, HTN, HLD, COPD (on no 02), dementia presenting with complaint of confusion/cough for the past four days associated with fever presents with increasing sob and nonproductive cough. Pt denies any chest pain, n/v, diaphoreis, abd pain, back pain, new leg swelling always has baseline swelling). no sick contacts or recent hospitalizations PMD: Dr. Delcid Pulm: Dr. Nickerson - Physicial Exam PE: 04/17/19 08:41 GENERAL: The patient is awake, alert, Nontoxic - in no acute distress. HEAD: Normocephalic, atraumatic. EYES: extraocular movements intact, sclera anicteric, conjunctiva clear. ENT: Normal voice, Moist mucous membranes. NECK: Normal range of motion, supple LUNGS: Bibasilar rales, mild expiratory wheezing ABDOMEN: Soft, nontender, No guarding, no rebound. No CVA tenderness EXTREMITIES: Normal range of motion, bilateral +3 pitting edema NEUROLOGICAL: No facial assymetry, Normal speech PSYCH: Normal mood, normal affect. SKIN: Warm, Dry, normal turgor, - Medical Decision Making 04/17/19 08:42 ddx - copd exacerbation, pna, influenza, consider acs, will ck lbas, cxr, influneza preston leyva neb 04/17/19 08:44 The patient's chest x-ray is notable for a right lower lobe consolidation we will treat with Levaquin Zosyn Will admit for further management as the patient is notably hypoxic Heart Score/ECG Review - ECG Impressions Comment:: 04/17/19 08:44 Twelve-lead EKG was performed and reviewed by me. There is normal sinus rhythm with a normal rate. Rate of 100 The axis is normal. The intervals are normal. There is normal R wave progression There are no ST or T wave abnormalities. Impression: Normal twelve-lead EKG
[2019-04-17] MEDS ORDERED: ACETAMINOPHEN 1000 MG/100 ML VIAL (NON FORMULARY) IVPB ONE (08:14)
[2019-04-17] MEDS ORDERED: LABETALOL HCL 200 MG TABLET (FP) PO ONE (08:24)
[2019-04-17] MEDS ORDERED: ALBUTEROL SO4 2.5/IPRATROPIUM 0.5 INH SOL 3 ML VIAL.NEB. NEB ONE ×2 (08:36→08:51)
[2019-04-17] MEDS ORDERED: PIPERACILLIN/TAZOB 4.5 GM 4.5 GM in DEXTROSE 5%-WATER 100 ML IVPB ONE (08:42)
[2019-04-17] MEDS ORDERED: LABETALOL HCL 100 MG TABLET (FP) ONE (08:44)
[2019-04-17] MEDS ORDERED: ACETAMINOPHEN INJECTION 100 ML IVPB ONE (08:44)
[2019-04-17 08:49] LABS: VENOUS PC02 46.6 mmHg (38-52); VENOUS PH 7.42 (7.31-7.41); VENOUS PO2 59.1 mmHg (28-48)
[2019-04-17 09:00] LABS: BASO % 0.6 % (0-2.0); EOS % 0.3 % (0-4.5); HEMATOCRIT 44.7 % (35.4-49); HEMOGLOBIN 14.5 GM/dL (11.7-16.9); MCH 27.2 pg (25.7-33.7); MCHC 32.3 g/dl (32.0-35.9); MEAN CELL VOLUME 84.1 fl (80-96); MEAN PLT VOLUME 7.3 fl (7.5-11.1); MONO % 16.9 % (3.8-10.2); NEUT % 73.2 % (42.8-82.8); PLATELET COUNT 330 K/MM3 (134-434); RBC 5.32 M/mm3 (4.00-5.60); RDW 14.5 % (11.9-15.9); WHITE BLOOD COUNT 9.4 K/mm3 (4.0-10.0)
[2019-04-17 09:15] LABS: INR 1.08 (0.83-1.09); PROTHROMBIN TIME (PATIENT) 12.8 SEC (9.7-13.0)
[2019-04-17 09:17] LABS: ACTIVATED PTT 27.7 SECONDS (25.2-36.5)
[2019-04-17] MEDS ORDERED: PIPERACILLIN/TAZOB 4.5 GM 4.5 GM/100 ML BAG IVPB ONE (09:18)
[2019-04-17 09:22] LABS: ALBUMIN 3.3 g/dl (3.4-5.0); BILIRUBIN,TOTAL 1.5 mg/dL (0.2-1); BLOOD UREA NITROGEN 12.4 mg/dL (7-18); CALCIUM 9.4 mg/dL (8.5-10.1); CREATININE 0.9 mg/dL (0.55-1.3); POTASSIUM 4.1 mmol/L (3.5-5.1); TOT PROT 6.6 g/dl (6.4-8.2)
--- NOTE | 2019-04-17 09:22 | HP ---
Admitting History and Physical - Primary Care Physician PCP: Gini Delcid S - Admission Chief Complaint: cough SOB fever History of Present Illness: 84y M history of CHF, prior CVA, HTN, HLD, COPD (on no 02), dementia, prostate CA, h/o PEG / aspiration PNA few years ago, presenting with complaint of confusion/cough for the past week associated with fever presents with increasing sob and nonproductive cough. Pt denies any chest pain, n/v, diaphoreis, abd pain, back pain; has chronic both legs swelling (always has baseline swelling). no sick contacts or recent hospitalizations his called me few days ago and I ordered Zpack po but he did not take it; instead she brought him to ER History Source: Patient, Family Member, Medical Record Limitations to Obtaining History: No Limitations - Past Medical History [employer]: Yes: CVA, TIA Cardiovascular: Yes: Aneurysm, CHF, HTN, Hyperlipdemia Pulmonary: Yes: COPD Gastrointestinal: Yes: Constipation, Other (SBO SB benign mass, s/p resection) Renal/: Yes: BPH, Cancer, Renal Calculi Musculoskeletal: Yes: Hemiparesis Endocrine: Yes: Other - Smoking History Smoking history: Former smoker Have you smoked in the past 12 months: No Aproximately how many cigarettes per day: 10 If you are a former smoker, when did you quit?: 7 years ago - Alcohol/Substance Use Hx Alcohol Use: No History of Substance Use: reports: None - Social History Usual Living Arrangement: Yes: With Spouse Do you think of yourself as: Straight/Heterosexual ADL: Family Assistance 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 [employer] History of Recent Travel: No Home Medications - Allergies Allergies/Adverse Reactions: Allergies Allergy/AdvReac Type Severity Reaction Status Date / Time No Known Allergies Allergy Verified 01/21/19 17:21 - Home Medications Home Medications: Ambulatory Orders Aspirin [ASA -] 81 mg PO DAILY #90 tab 06/26/17 Budesonide/Formeterol Fumarate [SYMBICORT 160/4.5mcg -] 1 puff IH BID #1 inhaler 06/26/17 Montelukast Na [Singulair -] 10 mg PO HS #30 tablet 06/26/17 Furosemide [Lasix -] 40 mg PO BID tablet 10/10/18 Atorvastatin Ca [Lipitor] 40 mg PO HS 01/21/19 Carvedilol [Coreg -] 6.25 mg PO DAILY 01/21/19 Clopidogrel Bisulfate [Plavix] 75 mg PO DAILY 01/21/19 Labetalol HCl [Normodyne -] 200 mg PO DAILY 01/21/19 Amlodipine Besylate 10 mg PO DAILY 04/17/19 Azithromycin 250 mg PO DAILY 04/17/19 Benzonatate 04/17/19 Doxazosin Mesylate [Cardura -] 2 mg PO DAILY 04/17/19 Family Medical History Family History: Unremarkable Review of Systems - Review of Systems Constitutional: reports: Fever, Loss of Appetite, Weakness (general). denies: Chills, Diaphoresis, Lethargy Eyes: denies: Blind Spots, Double Vision HENT: denies: Difficult Swallowing, Ear Discharge, Ear Pain, Epistaxis Neck: denies: Pain on Movement, Stiffness Cardiovascular: reports: Shortness of Breath. denies: Chest Pain, Palpitations Respiratory: reports: Cough, SOB, SOB on Exertion. denies: Hemoptysis, Orthopnea, Wheezing Gastrointestinal: denies: Abdominal Pain, Bloating, Constipation, Diarrhea, Rectal Bleeding, Vomiting Genitourinary: denies: Burning, Discharge, Dysuria, Flank Pain Musculoskeletal: denies: Back Pain, Joint Swelling Integumentary: denies: Rash, Wound Neurological: reports: Unsteady Gait. denies: Change in LOC, Change in Speech, Confusion, Dizziness, Seizure, Syncope, Tremors Endocrine: denies: Excessive Sweating, Flushing Hematology/Lymphatic: denies: Easily Bruised, Excessive Bleeding Psychiatric: denies: Anxiety, Depression, Suicidal Physical Examination Vital Signs: Vital Signs Temperature 100.9 F H 04/17/19 08:29 Pulse Rate 104 H 04/17/19 08:29 Respiratory Rate 24 H 04/17/19 08:29 Blood Pressure 184/87 H 04/17/19 08:29 O2 Sat by Pulse Oximetry (%) 95 04/17/19 08:29 Constitutional: Yes: No Distress, Calm Eyes: Yes: Conjunctiva Clear HENT: Yes: Atraumatic Neck: Yes: Supple Cardiovascular: Yes: Regular Rate and Rhythm Respiratory: Yes: Diminished Gastrointestinal: Yes: Soft. No: Tenderness Renal/: No: Hematuria Musculoskeletal: No: Joint Stiffness, Joint Swelling Extremities: No: Cold, Cool Edema: Yes (1+ pretibial bilateral) Integumentary: No: Rash, Venous Stasis Changes Neurological: Yes: Alert ...Motor Strength: WNL Psychiatric: Yes: Alert. No: Agitated, Suicidal Ideation Labs: CBC, BMP 04/17/19 08:05 Imaging - Results Chest X-ray: Report Reviewed Other: Report Reviewed Assessment/Plan 84y M history of CHF, prior CVA, HTN, HLD, COPD (on no 02), dementia, prostate CA, h/o PEG / aspiration PNA few years ago - presenting with complaint of confusion/cough for the past four days associated with fever presents with increasing sob and nonproductive cough. Chronic legs symmetrical edema CXR c/w RLL PNA admit PNA,a cute on chronic COPD exac ID, pulmoanry and cardiology eval IV ATB; IV steroids, nebs; O2; lasix f/u labs and cultures falls decubs DVT and aspiration PFX dw pt and staff dw pt's at bedside prognosis guarded
[2019-04-17] MEDS ORDERED: ACETAMINOPHEN 325 MG TABLET (FP) PO PRN (09:23)
[2019-04-17] MEDS ORDERED: methylPREDNISolone NA SUCC 40 MG/1 ML VIAL IVPUSH SCH (09:30)
[2019-04-17] MEDS ORDERED: SODIUM CHLORIDE 0.9% 500 ML INFUS.BAG IV ONE (10:06)
[2019-04-17] MEDS: amLODIPine BESYLATE 10 MG TABLET (FP) PO SCH (10:39)
[2019-04-17] MEDS: CARVEDILOL 6.25 MG TABLET (FP) PO SCH ×2 (10:39→23:04)
[2019-04-17] MEDS: ASPIRIN 81 MG CHEWABLE TABLETS PO SCH (11:10)
[2019-04-17] MEDS: CLOPIDOGREL BISULFATE 75 MG TABLET (FP) PO SCH (11:10)
[2019-04-17] MEDS ORDERED: ASPIRIN 81 MG CHEWABLE TABLETS ONE (11:16)
[2019-04-17] MEDS ORDERED: CLOPIDOGREL BISULFATE 75 MG TABLET (FP) ONE (11:16)
[2019-04-17] MEDS: FUROSEMIDE 40 MG/4 ML INJECTABLE VIAL IVPUSH SCH (12:01)
--- NOTE | 2019-04-17 12:03 | CON.ID ---
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, Dementia, TIA Cardio/Vascular: Yes: Aneurysm, CHF, HTN, Hyperlipdemia Pulmonary: Yes: COPD Gastrointestinal: Yes: Constipation, Other (SBO SB benign mass, s/p resection) Renal/: Yes: BPH, Cancer, Renal Calculi Infectious Disease: Yes: VREF (2017, cleared, ecoli esbl uti 2017-) Musculoskeletal: Yes: Hemiparesis Endocrine: Yes: Other - Past Surgical History Additional Surgical History: ileal resection 2017 - Alcohol/Substance Use Hx Alcohol Use: No History of Substance Use: reports: None - Smoking History Smoking history: Former smoker Have you smoked in the past 12 months: No Aproximately how many cigarettes per day: 10 If you are a former smoker, when did you quit?: 7 years ago - Social History Usual Living Arrangement: With Spouse ADL: Family Assistance 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 [employer] History of Recent Travel: No Home Medications - Allergies Allergies/Adverse Reactions: Allergies Allergy/AdvReac Type Severity Reaction Status Date / Time No Known Allergies Allergy Verified 01/21/19 17:21 - Home Medications Home Medications: Ambulatory Orders Aspirin [ASA -] 81 mg PO DAILY #90 tab 06/26/17 Budesonide/Formeterol Fumarate [SYMBICORT 160/4.5mcg -] 1 puff IH BID #1 inhaler 06/26/17 Montelukast Na [Singulair -] 10 mg PO HS #30 tablet 06/26/17 Furosemide [Lasix -] 40 mg PO BID tablet 10/10/18 Atorvastatin Ca [Lipitor] 40 mg PO HS 01/21/19 Carvedilol [Coreg -] 6.25 mg PO DAILY 01/21/19 Clopidogrel Bisulfate [Plavix] 75 mg PO DAILY 01/21/19 Labetalol HCl [Normodyne -] 200 mg PO DAILY 01/21/19 Amlodipine Besylate 10 mg PO DAILY 04/17/19 Azithromycin 250 mg PO DAILY 04/17/19 Benzonatate 04/17/19 Doxazosin Mesylate [Cardura -] 2 mg PO DAILY 04/17/19 Family Medical History Family History: Unable to Obtain Review of Systems - Review of Systems Constitutional: reports: Lethargy Eyes: reports: No Symptoms HENT: reports: No Symptoms Neck: reports: No Symptoms Cardiovascular: reports: No Symptoms. denies: Chest Pain Respiratory: reports: Cough, SOB. denies: Hemoptysis Gastrointestinal: reports: No Symptoms Genitourinary: reports: No Symptoms Breasts: reports: No Symptoms Reported Musculoskeletal: reports: No Symptoms, Other (chronic lower extremity edema) Physical Exam Vital Signs: Vital Signs Temperature 99.8 F H 04/17/19 10:00 Pulse Rate 70 04/17/19 10:35 Respiratory Rate 24 H 04/17/19 10:35 Blood Pressure 116/56 L 04/17/19 10:35 O2 Sat by Pulse Oximetry (%) 95 04/17/19 10:35 Constitutional: Yes: Well Nourished, No Distress, Calm Eyes: Yes: Conjunctiva Clear, EOM Intact HENT: Yes: Atraumatic, Normocephalic Neck: Yes: Supple Cardiovascular: Yes: Regular Rate and Rhythm Respiratory: Yes: Diminished, Rales (bibasilar right greater then left) Gastrointestinal: Yes: Normal Bowel Sounds, Soft, Other (well healed mid line incision) ...Rectal Exam: Yes: Deferred Extremities: Yes: Other (feet warm, bilateral femoral pulses) Edema: Yes Edema: LLE: 2+, RLE: 2+ Integumentary: Yes: WNL Psychiatric: Yes: Alert Labs: CBC, BMP 04/17/19 08:05 04/17/19 08:05 Imaging - Results Chest X-ray: Report Reviewed, Image Reviewed (RLL infiltrate) Problem List - Problems (1) Pneumonia Code(s): J18.9 - PNEUMONIA, UNSPECIFIED ORGANISM Qualifiers: Pneumonia type: aspiration pneumonia Aspiration pneumonia type: unspecified Laterality: bilateral Lung location: unspecified part of lung Qualified Code(s): J69.0 - Pneumonitis due to inhalation of food and vomit (2) Acute CHF (congestive heart failure) Code(s): I50.9 - HEART FAILURE, UNSPECIFIED (3) Acute exacerbation of chronic obstructive pulmonary disease (COPD) Code(s): J44.1 - CHRONIC OBSTRUCTIVE PULMONARY DISEASE W (ACUTE) EXACERBATION (4) Abdominal aortic aneurysm (AAA) Code(s): I71.4 - ABDOMINAL AORTIC ANEURYSM, WITHOUT RUPTURE Assessment/Plan CAP - not improving despite 72 hours of zithromax got zosyn and levaquin in the ED would d/c further levaquin (history of AAA) no recent admissions, no vomiting to suggest aspiration switch to rocephin/zithromax f/ cultures f/u urinary antigens copd esacerbation- continue steroids, f/u pulmonary chf exacerbation- iv lasix f/u cardiology
[2019-04-17 12:05] LABS: HYALINE CASTS 5 /lpf (0-8); PH,URINE 6.5 (5.0-8.0); URINE APPEARANCE CLEAR; URINE BACTERIA 0.3 /hpf (NEGATIVE); URINE BILIRUBIN NEGATIVE (NEGATIVE); URINE COLOR YELLOW; URINE GLUCOSE (UA) NEGATIVE (NEGATIVE); URINE KETONE NEGATIVE (NEGATIVE); URINE LEUK ESTERASE NEGATIVE (NEGATIVE); URINE NITRITE NEGATIVE (NEGATIVE); URINE PROTEIN 1+ (NEGATIVE); URINE RBC 11 /hpf (0-4); URINE UROBILINOGEN 0.2 mg/dL (0.2-1.0); URINE WBC 1 /hpf (0-5)
[2019-04-17] MEDS: BUDESONIDE/FORMETEROL FUMARATE 160/4.5 mcg INHALER IH SCH ×2 (13:00→23:04)
[2019-04-17] MEDS: FAMOTIDINE 20 MG TABLET PO SCH (13:00)
[2019-04-17] MEDS ORDERED: CEFTRIAXONE 1 GM/50 ML BAG ONE (13:02)
[2019-04-17] MEDS: CEFTRIAXONE 1 GM in DEXTROSE 5%-WATER - 50 ML IVPB SCH (13:12)
--- NOTE | 2019-04-17 13:20 | CON.CARD ---
Consult Consult Specialty:: Cardiology - History of Present Illness History of Present Illness: 84y M history of CHF, prior CVA, HTN, HLD, COPD (on no 02), dementia presenting with complaint of confusion/cough for the past four days associated with fever presents with increasing sob and nonproductive cough. Pt denies any chest pain, n/v, diaphoreis, abd pain, back pain, new leg swelling always has baseline swelling). no sick contacts or recent hospitalizations PMD: Dr. Bhavin Geller: Dr. Nickerson PMH Past medical history Major events LE angio 02/21/2015 Dr. 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 Cardio/Vascular: Yes: Aneurysm, CHF, HTN, Hyperlipdemia Pulmonary: Yes: COPD Gastrointestinal: Yes: Constipation, Other (SBO SB benign mass, s/p resection) Renal/: Yes: BPH, Cancer, Renal Calculi Infectious Disease: Yes: VREF (2017, cleared, ecoli esbl uti 2017-) Musculoskeletal: Yes: Hemiparesis Endocrine: Yes: Other - Past Surgical History Additional Surgical History: ileal resection 2016 - Alcohol/Substance Use Hx Alcohol Use: No History of Substance Use: reports: None - Smoking History Smoking history: Former smoker Have you smoked in the past 12 months: No Aproximately how many cigarettes per day: 10 If you are a former smoker, when did you quit?: 7 years ago - Social History Usual Living Arrangement: With Spouse ADL: Family Assistance 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 [employer] History of Recent Travel: No Home Medications - Allergies Allergies/Adverse Reactions: Allergies Allergy/AdvReac Type Severity Reaction Status Date / Time No Known Allergies Allergy Verified 01/21/19 17:21 - Home Medications Home Medications: Ambulatory Orders Aspirin [ASA -] 81 mg PO DAILY #90 tab 06/26/17 Budesonide/Formeterol Fumarate [SYMBICORT 160/4.5mcg -] 1 puff IH BID #1 inhaler 06/26/17 Montelukast Na [Singulair -] 10 mg PO HS #30 tablet 06/26/17 Furosemide [Lasix -] 40 mg PO BID tablet 10/10/18 Atorvastatin Ca [Lipitor] 40 mg PO HS 01/21/19 Carvedilol [Coreg -] 6.25 mg PO DAILY 01/21/19 Clopidogrel Bisulfate [Plavix] 75 mg PO DAILY 01/21/19 Labetalol HCl [Normodyne -] 200 mg PO DAILY 01/21/19 Amlodipine Besylate 10 mg PO DAILY 04/17/19 Azithromycin 250 mg PO DAILY 04/17/19 Benzonatate 04/17/19 Doxazosin Mesylate [Cardura -] 2 mg PO DAILY 04/17/19 Review of Systems - Review of Systems Constitutional: reports: No Symptoms Eyes: reports: No Symptoms HENT: reports: No Symptoms Neck: reports: No Symptoms Cardiovascular: reports: Shortness of Breath Respiratory: reports: Cough, SOB, SOB on Exertion Gastrointestinal: reports: No Symptoms Genitourinary: reports: No Symptoms Breasts: reports: No Symptoms Reported Musculoskeletal: reports: No Symptoms Integumentary: reports: No Symptoms Neurological: reports: No Symptoms Endocrine: reports: No Symptoms Hematology/Lymphatic: reports: No Symptoms Psychiatric: reports: No Symptoms Vital Signs: Vital Signs Temperature 98.7 F 04/17/19 13:12 Pulse Rate 68 04/17/19 13:12 Respiratory Rate 24 H 04/17/19 13:12 Blood Pressure 123/72 04/17/19 13:12 O2 Sat by Pulse Oximetry (%) 95 04/17/19 13:12 Constitutional: Yes: Well Nourished, No Distress, Calm Eyes: Yes: WNL, Conjunctiva Clear, EOM Intact HENT: Yes: WNL, Atraumatic, Normocephalic Neck: Yes: WNL, Supple, Trachea Midline Respiratory: Yes: WNL, Regular, CTA Bilaterally Gastrointestinal: Yes: WNL, Normal Bowel Sounds Renal/: Yes: WNL Cardiovascular: Yes: WNL, Regular Rate and Rhythm Musculoskeletal: Yes: WNL Extremities: Yes: WNL Integumentary: Yes: WNL Neurological: Yes: WNL, Alert, Oriented ...Motor Strength: WNL Psychiatric: Yes: WNL, Alert, Oriented - Other Data Labs, Other Data: CBC, BMP 04/17/19 08:05 04/17/19 08:05 INR, PTT INR 1.08 (0.83-1.09) 04/17/19 08:05 Troponin, BNP 04/17/19 04/17/19 08:05 08:05 Troponin I < 0.02 B-Natriuretic Peptide 1186.0 H Troponin, BNP 04/17/19 04/17/19 08:05 08:05 Troponin I < 0.02 B-Natriuretic Peptide 1186.0 H Imaging - Results Chest X-ray: Image Reviewed (no i/e) EKG: Pending Problem List - Problems (1) Abdominal aneurysm Code(s): I71.4 - ABDOMINAL AORTIC ANEURYSM, WITHOUT RUPTURE (2) Abdominal aortic aneurysm (AAA) Code(s): I71.4 - ABDOMINAL AORTIC ANEURYSM, WITHOUT RUPTURE (3) Abdominal pain Code(s): R10.9 - UNSPECIFIED ABDOMINAL PAIN (4) Abnormal liver function tests Code(s): R94.5 - ABNORMAL RESULTS OF LIVER FUNCTION STUDIES (5) Acute CHF (congestive heart failure) Code(s): I50.9 - HEART FAILURE, UNSPECIFIED (6) Acute bronchitis Code(s): J20.9 - ACUTE BRONCHITIS, UNSPECIFIED (7) Acute exacerbation of chronic obstructive pulmonary disease (COPD) Code(s): J44.1 - CHRONIC OBSTRUCTIVE PULMONARY DISEASE W (ACUTE) EXACERBATION (8) Acute on chronic respiratory failure with hypoxemia Code(s): J96.21 - ACUTE AND CHRONIC RESPIRATORY FAILURE WITH HYPOXIA (9) Aspiration into airway Code(s): T17.908A - UNSP FB IN RESP TRACT, PART UNSP CAUSING OTH INJURY, INIT (10) Asymptomatic bacteriuria Code(s): R82.71 - BACTERIURIA (11) Atopic dermatitis Code(s): L20.9 - ATOPIC DERMATITIS, UNSPECIFIED Qualifiers: Atopic dermatitis type: unspecified Qualified Code(s): L20.9 - Atopic dermatitis, unspecified (12) Bacteremia Code(s): R78.81 - BACTEREMIA (13) Bandemia Code(s): D72.825 - BANDEMIA (14) Benign localized hyperplasia of prostate with urinary obstruction Code(s): N40.1 - BENIGN PROSTATIC HYPERPLASIA WITH LOWER URINARY TRACT SYMP; N13.8 - OTHER OBSTRUCTIVE AND REFLUX UROPATHY (15) Bilateral leg weakness Code(s): M62.81 - MUSCLE WEAKNESS (GENERALIZED) (16) Blister Code(s): T14.8XXA - OTHER INJURY OF UNSPECIFIED BODY REGION, INITIAL ENCOUNTER (17) CHF (congestive heart failure) Code(s): I50.9 - HEART FAILURE, UNSPECIFIED Qualifiers: Heart failure type: unspecified Heart failure chronicity: chronic Qualified Code(s): I50.9 - Heart failure, unspecified (18) COPD exacerbation Code(s): J44.1 - CHRONIC OBSTRUCTIVE PULMONARY DISEASE W (ACUTE) EXACERBATION (19) CVA (cerebral infarction) Code(s): I63.9 - CEREBRAL INFARCTION, UNSPECIFIED (20) Cerebral aneurysm Code(s): I67.1 - CEREBRAL ANEURYSM, NONRUPTURED (21) Chronic obstructive pulmonary disease Code(s): J44.9 - CHRONIC OBSTRUCTIVE PULMONARY DISEASE, UNSPECIFIED (22) Complication of Chavarria catheter Code(s): T83.9XXA - UNSP COMPLICATION OF GENITOURINARY PROSTH DEV/GRFT, INIT (23) Constipation Code(s): K59.00 - CONSTIPATION, UNSPECIFIED (24) Dehydration Code(s): E86.0 - DEHYDRATION (25) Dementia Code(s): F03.90 - UNSPECIFIED DEMENTIA WITHOUT BEHAVIORAL DISTURBANCE (26) Depression Code(s): F32.9 - MAJOR DEPRESSIVE DISORDER, SINGLE EPISODE, UNSPECIFIED (27) Diastolic CHF Code(s): I50.30 - UNSPECIFIED DIASTOLIC (CONGESTIVE) HEART FAILURE (28) Distended bladder Code(s): N32.89 - OTHER SPECIFIED DISORDERS OF BLADDER (29) Dysphagia Code(s): R13.10 - DYSPHAGIA, UNSPECIFIED (30) Dysphagia Code(s): R13.10 - DYSPHAGIA, UNSPECIFIED Qualifiers: Dysphagia type: unspecified Qualified Code(s): R13.10 - Dysphagia, unspecified (31) Elevated LFTs Code(s): R79.89 - OTHER SPECIFIED ABNORMAL FINDINGS OF BLOOD CHEMISTRY (32) Fall Code(s): W19.XXXA - UNSPECIFIED FALL, INITIAL ENCOUNTER Qualifiers: Encounter type: initial encounter Qualified Code(s): W19.XXXA - Unspecified fall, initial encounter (33) [place]ingo cardiac risk >20% in next 10 years Code(s): Z91.89 - OT PERSONAL RISK FACTORS, NOT ELSEWHERE CLASSIFIED (34) Gross hematuria Code(s): R31.0 - GROSS HEMATURIA (35) HTN (hypertension) Code(s): I10 - ESSENTIAL (PRIMARY) HYPERTENSION (36) Hyperbilirubinemia Code(s): E80.6 - OTHER DISORDERS OF BILIRUBIN METABOLISM (37) Hyperglycemia Code(s): R73.9 - HYPERGLYCEMIA, UNSPECIFIED (38) Hyperlipemia, mixed Code(s): E78.2 - MIXED HYPERLIPIDEMIA (39) Hyperlipidemia Code(s): E78.5 - HYPERLIPIDEMIA, UNSPECIFIED (40) Hypernatremia Code(s): E87.0 - HYPEROSMOLALITY AND HYPERNATREMIA (41) Hypoalbuminemia Code(s): E88.09 - OTH DISORDERS OF PLASMA-PROTEIN METABOLISM, NEC (42) Hypokalemia Code(s): E87.6 - HYPOKALEMIA (43) Hypokalemia due to inadequate potassium intake Code(s): E87.6 - HYPOKALEMIA (44) Hypomagnesemia Code(s): E83.42 - HYPOMAGNESEMIA (45) Hypophosphatemia Code(s): E83.39 - OTHER DISORDERS OF PHOSPHORUS METABOLISM (46) Hypothyroid Code(s): E03.9 - HYPOTHYROIDISM, UNSPECIFIED (47) 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 Code(s): I87.332 - CHRONIC VENOUS HTN W ULCER AND INFLAMMATION OF L LOW EXTREM; L97.929 - NON-PRS CHRONIC ULC UNSP PRT OF L LOW LEG W UNSP SEVERITY (48) Ileus following gastrointestinal surgery Code(s): K91.3 - POSTPROCEDURAL INTESTINAL OBSTRUCTION * DO NOT USE * (49) Osteoporosis Code(s): M81.0 - AGE-RELATED OSTEOPOROSIS W/O CURRENT PATHOLOGICAL FRACTURE (50) PSVT (paroxysmal supraventricular tachycardia) Code(s): I47.1 - SUPRAVENTRICULAR TACHYCARDIA (51) Pneumatosis intestinalis Code(s): K63.89 - OTHER SPECIFIED DISEASES OF INTESTINE (52) Pneumonia Code(s): J18.9 - PNEUMONIA, UNSPECIFIED ORGANISM Qualifiers: Pneumonia type: aspiration pneumonia Aspiration pneumonia type: unspecified Laterality: bilateral Lung location: unspecified part of lung Qualified Code(s): J69.0 - Pneumonitis due to inhalation of food and vomit (53) Prostate cancer Code(s): C61 - MALIGNANT NEOPLASM OF PROSTATE (54) Renal calculi Code(s): N20.0 - CALCULUS OF KIDNEY (55) Right hip pain Code(s): M25.551 - PAIN IN RIGHT HIP (56) Right leg pain Code(s): M79.604 - PAIN IN RIGHT LEG (57) S/P percutaneous endoscopic gastrostomy (PEG) tube placement Code(s): Z93.1 - GASTROSTOMY STATUS (58) SBO (small bowel obstruction) Code(s): K56.69 - OTHER INTESTINAL OBSTRUCTION * DO NOT USE * (59) Silent aspiration Code(s): T17.900A - UNSP FB IN RESP TRACT, PART UNSP CAUSING ASPHYX, INIT (60) Small bowel mass Code(s): K63.89 - OTHER SPECIFIED DISEASES OF INTESTINE (61) Stricture intestinal Code(s): K56.699 - OTHER INTESTNL OBST UNSP TO PARTIAL VERSUS COMPLETE OBST (62) TIA (transient ischemic attack) Code(s): G45.9 - TRANSIENT CEREBRAL ISCHEMIC ATTACK, UNSPECIFIED (63) Upper respiratory disease Code(s): J39.9 - DISEASE OF UPPER RESPIRATORY TRACT, UNSPECIFIED (64) Urinary retention Code(s): R33.9 - RETENTION OF URINE, UNSPECIFIED (65) Urinary retention due to benign prostatic hyperplasia Code(s): N40.1 - BENIGN PROSTATIC HYPERPLASIA WITH LOWER URINARY TRACT SYMP; R33.8 - OTHER RETENTION OF URINE (66) Urinary tract infection Code(s): N39.0 - URINARY TRACT INFECTION, SITE NOT SPECIFIED Qualifiers: Urinary tract infection type: acute cystitis Hematuria presence: with hematuria Qualified Code(s): N30.01 - Acute cystitis with hematuria (67) Venous (peripheral) insufficiency Code(s): I87.2 - VENOUS INSUFFICIENCY (CHRONIC) (PERIPHERAL) (68) Venous insufficiency Code(s): I87.2 - VENOUS INSUFFICIENCY (CHRONIC) (PERIPHERAL) (69) Wasting syndrome Code(s): R64 - CACHEXIA (70) Weakness Code(s): R53.1 - WEAKNESS Assessment/Plan copd/chf exacorbation Bronchitis LE angio 02/21/2015 Dr. 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
--- NOTE | 2019-04-17 15:33 | EKG ---
Test Reason : Blood Pressure : / mmHG Vent. Rate : 100 BPM Atrial Rate : 100 BPM P-R Int : 198 ms QRS Dur : 080 ms QT Int : 358 ms P-R-T Axes : 074 049 061 degrees QTc Int : 461 ms NORMAL SINUS RHYTHM NORMAL ECG WHEN COMPARED WITH ECG OF 06-OCT-2018 13:35, VENT. RATE HAS INCREASED BY 45 BPM Confirmed by JOEY TIM MD ([id number]) on 04/17/2019 3:33:19 PM Referred By: Confirmed By:JOEY TIM MD
[2019-04-17 17:16] VITALS: BMI 26.6
[2019-04-17] MEDS: methylPREDNISolone NA SUCC 40 MG/1 ML VIAL IVPUSH SCH (17:59)
[2019-04-17] MEDS: guaiFENesin 200 MG/10 ML 10 ML UNIT-DOSE CUPS PO PRN (17:59)
[2019-04-17 18:51] LABS: BASO % 0.1 % (0-2.0); HEMATOCRIT 39.8 % (35.4-49); HEMOGLOBIN 12.8 GM/dL (11.7-16.9); LYMPH % 6.4 % (8-40); MCH 27.3 pg (25.7-33.7); MCHC 32.1 g/dl (32.0-35.9); MEAN CELL VOLUME 84.9 fl (80-96); MEAN PLT VOLUME 7.3 fl (7.5-11.1); MONO % 3.1 % (3.8-10.2); NEUT % 90.4 % (42.8-82.8); PLATELET COUNT 286 K/MM3 (134-434); RBC 4.69 M/mm3 (4.00-5.60); RDW 14.9 % (11.9-15.9); WHITE BLOOD COUNT 7.4 K/mm3 (4.0-10.0)
[2019-04-17 19:05] LABS: BLOOD UREA NITROGEN 15.5 mg/dL (7-18); CALCIUM 8.9 mg/dL (8.5-10.1); POTASSIUM 4.4 mmol/L (3.5-5.1)
[2019-04-17] MEDS ORDERED: PT OWN MED DRAWER 7, Y5N ONE (22:28)
[2019-04-17] MEDS: ATORVASTATIN CA 40 MG TABLET (FP) PO SCH (23:04)
[2019-04-17] MEDS: MONTELUKAST NA 10 MG TABLET PO SCH (23:04)
[2019-04-17] MEDS: DOXAZOSIN MESYLATE 2 MG TABLET (FP) PO SCH (23:04)
[2019-04-18] MEDS: methylPREDNISolone NA SUCC 40 MG/1 ML VIAL IVPUSH SCH ×3 (01:53→17:46)
--- NOTE | 2019-04-18 10:22 | CON.PULM ---
Consult Consult Specialty:: PULM/CCM Referred by:: VAMSI Reason for Consultation:: SOB - History of Present Illness Chief Complaint: SOB History of Present Illness: 84 M, COPD due to previous smoking history, stable 1.2 cm LLL irregular nodule that has been present since 06/23/2017 with most recent imaging on 10/06/2018, PRN home O2, prior CVA, HTN, HLD,and mild dementia. Admitted via the ER due to progressive congested cough and shortness of breath and confusion. No travel history or sick contacts. No hemoptysis or night sweats. He was given a zpack as an outpatient. Reports no heat in his home for several days. 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 Cardio/Vascular: Yes: Aneurysm, CHF, HTN, Hyperlipdemia Pulmonary: Yes: COPD Gastrointestinal: Yes: Constipation, Other (SBO SB benign mass, s/p resection) Renal/: Yes: BPH, Cancer, Renal Calculi Infectious Disease: Yes: VREF (2017, cleared, ecoli esbl uti 2017-) Musculoskeletal: Yes: Hemiparesis Endocrine: Yes: Other - Past Surgical History Additional Surgical History: ileal resection 2017 - Alcohol/Substance Use Hx Alcohol Use: No History of Substance Use: reports: None - Smoking History Smoking history: Former smoker Have you smoked in the past 12 months: No Aproximately how many cigarettes per day: 10 If you are a former smoker, when did you quit?: 7 years ago - Social History Usual Living Arrangement: With Spouse ADL: Family Assistance 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 [employer] History of Recent Travel: No Home Medications - Allergies Allergies/Adverse Reactions: Allergies Allergy/AdvReac Type Severity Reaction Status Date / Time No Known Allergies Allergy Verified 01/21/19 17:21 - Home Medications Home Medications: Ambulatory Orders Aspirin [ASA -] 81 mg PO DAILY #90 tab 06/26/17 Budesonide/Formeterol Fumarate [SYMBICORT 160/4.5mcg -] 1 puff IH BID #1 inhaler 06/26/17 Montelukast Na [Singulair -] 10 mg PO HS #30 tablet 06/26/17 Furosemide [Lasix -] 40 mg PO BID tablet 10/10/18 Atorvastatin Ca [Lipitor] 40 mg PO HS 01/21/19 Carvedilol [Coreg -] 6.25 mg PO DAILY 01/21/19 Clopidogrel Bisulfate [Plavix] 75 mg PO DAILY 01/21/19 Labetalol HCl [Normodyne -] 200 mg PO DAILY 01/21/19 Amlodipine Besylate 10 mg PO DAILY 04/17/19 Azithromycin 250 mg PO DAILY 04/17/19 Benzonatate 04/17/19 Doxazosin Mesylate [Cardura -] 2 mg PO DAILY 04/17/19 Review of Systems - Review of Systems Constitutional: reports: Chills, Fever, Malaise. denies: Night Sweats, Unintentional Wgt. Loss Eyes: reports: No Symptoms HENT: reports: No Symptoms Neck: reports: No Symptoms Cardiovascular: reports: Shortness of Breath. denies: Chest Pain, Edema, Palpitations Respiratory: reports: Cough, SOB, SOB on Exertion, Wheezing. denies: Hemoptysis , Orthopnea, PND, Snoring Gastrointestinal: reports: No Symptoms Genitourinary: reports: No Symptoms Breasts: reports: No Symptoms Reported Musculoskeletal: reports: No Symptoms Integumentary: reports: No Symptoms Neurological: reports: No Symptoms Endocrine: reports: No Symptoms Hematology/Lymphatic: reports: No Symptoms Psychiatric: reports: No Symptoms Physical Exam Vital Sings: Vital Signs Temperature 98.8 F 04/18/19 10:07 Pulse Rate 78 04/18/19 10:07 Respiratory Rate 18 04/18/19 10:07 Blood Pressure 171/90 H 04/18/19 10:07 O2 Sat by Pulse Oximetry (%) 98 04/17/19 20:56 Constitutional: Yes: Mild Distress, Thin Eyes: Yes: Conjunctiva Clear, EOM Intact HENT: Yes: Atraumatic, Normocephalic Neck: Yes: Supple, Trachea Midline Cardiovascular: Yes: Tachycardia Respiratory: Yes: Accessory Muscle Use, Cough, Diminished, On Nasal O2, Rhonchi , SOB, SOB on Exertion, Tachypnea, Wheezes. No: Rales, Stridor ...Inspection: Yes: WNL ...Clubbing: No Gastrointestinal: Yes: Normal Bowel Sounds, Soft Renal/: Yes: WNL Musculoskeletal: Yes: WNL Extremities: Yes: WNL Edema: No Peripheral Pulses WNL: Yes Integumentary: Yes: WNL Neurological: Yes: WNL, Alert, Oriented ...Motor Strength: WNL Psychiatric: Yes: WNL, Alert, Oriented Labs: CBC, BMP 04/17/19 17:55 04/17/19 17:55 Imaging - Results Chest X-ray: Report Reviewed, Image Reviewed Cat Scan: Report Reviewed, Image Reviewed Problem List - Problems (1) COPD exacerbation Code(s): J44.1 - CHRONIC OBSTRUCTIVE PULMONARY DISEASE W (ACUTE) EXACERBATION (2) Abdominal aortic aneurysm (AAA) Code(s): I71.4 - ABDOMINAL AORTIC ANEURYSM, WITHOUT RUPTURE (3) Acute exacerbation of chronic obstructive pulmonary disease (COPD) Code(s): J44.1 - CHRONIC OBSTRUCTIVE PULMONARY DISEASE W (ACUTE) EXACERBATION (4) CHF (congestive heart failure) Code(s): I50.9 - HEART FAILURE, UNSPECIFIED Qualifiers: Heart failure type: unspecified Heart failure chronicity: chronic Qualified Code(s): I50.9 - Heart failure, unspecified (5) Chronic obstructive pulmonary disease Code(s): J44.9 - CHRONIC OBSTRUCTIVE PULMONARY DISEASE, UNSPECIFIED (6) Dementia Code(s): F03.90 - UNSPECIFIED DEMENTIA WITHOUT BEHAVIORAL DISTURBANCE (7) Diastolic CHF Code(s): I50.30 - UNSPECIFIED DIASTOLIC (CONGESTIVE) HEART FAILURE (8) HTN (hypertension) Code(s): I10 - ESSENTIAL (PRIMARY) HYPERTENSION (9) Osteoporosis Code(s): M81.0 - AGE-RELATED OSTEOPOROSIS W/O CURRENT PATHOLOGICAL FRACTURE (10) PSVT (paroxysmal supraventricular tachycardia) Code(s): I47.1 - SUPRAVENTRICULAR TACHYCARDIA (11) Pneumonia Code(s): J18.9 - PNEUMONIA, UNSPECIFIED ORGANISM Qualifiers: Pneumonia type: aspiration pneumonia Aspiration pneumonia type: unspecified Laterality: bilateral Lung location: unspecified part of lung Qualified Code(s): J69.0 - Pneumonitis due to inhalation of food and vomit (12) Prostate cancer Code(s): C61 - MALIGNANT NEOPLASM OF PROSTATE (13) Pulmonary nodule, left Code(s): R91.1 - SOLITARY PULMONARY NODULE Assessment/Plan Medrol BD TX standing and PRN ABX per ID Singulair O2 as needed to maintain saturation VTE prophylaxis No smoking counseled Outpatient follow up of lung nodule (yearly) Will follow Thank you Dr Dominguez
[2019-04-18] MEDS ORDERED: DEXTROSE 5%-WATER - 50 ML IVPB ONE (10:28)
[2019-04-18] MEDS ORDERED: cefTRIAXone SODIUM 1 GM VIAL ONE (10:28)
[2019-04-18] MEDS: CEFTRIAXONE 1 GM in DEXTROSE 5%-WATER - 50 ML IVPB SCH (10:30)
[2019-04-18] MEDS: CLOPIDOGREL BISULFATE 75 MG TABLET (FP) PO SCH (10:31)
[2019-04-18] MEDS: AZITHROMYCIN 250 MG TABLET PO SCH (10:31)
[2019-04-18] MEDS: FUROSEMIDE 40 MG/4 ML INJECTABLE VIAL IVPUSH SCH (10:31)
[2019-04-18] MEDS: amLODIPine BESYLATE 10 MG TABLET (FP) PO SCH (10:31)
[2019-04-18] MEDS: FAMOTIDINE 20 MG TABLET PO SCH (10:31)
[2019-04-18] MEDS: CARVEDILOL 6.25 MG TABLET (FP) PO SCH ×2 (10:31→21:43)
[2019-04-18] MEDS: ASPIRIN 81 MG CHEWABLE TABLETS PO SCH (10:31)
[2019-04-18] MEDS: ALBUTEROL SO4 2.5/IPRATROPIUM 0.5 INH SOL 3 ML VIAL.NEB. NEB SCH ×3 (11:20→20:42)
--- NOTE | 2019-04-18 14:15 | PN ---
Progress Note, Physician Chief Complaint: in bed feeling better less cough no CP SOB afebrile ate OK - Current Medication List Current Medications: Active Medications Acetaminophen (Tylenol -) 650 mg PO TID PRN PRN Reason: FEVER Albuterol/Ipratropium (Duoneb -) 1 amp NEB RQID [facility] Last Admin: 04/18/19 11:20 Dose: 1 amp Amlodipine Besylate (Norvasc -) 10 mg PO DAILY [facility] Last Admin: 04/18/19 10:31 Dose: 10 mg Aspirin (Asa -) 81 mg PO DAILY [facility] Last Admin: 04/18/19 10:31 Dose: 81 mg Atorvastatin Calcium (Lipitor -) 40 mg PO HS [facility] Last Admin: 04/17/19 23:04 Dose: 40 mg Azithromycin (Zithromax -) 250 mg PO DAILY [facility] Last Admin: 04/18/19 10:31 Dose: 250 mg Budesonide/Formoterol Fumarate (Symbicort 160/4.5mcg -) 1 puff IH BID [facility] Last Admin: 04/17/19 23:04 Dose: 1 puff Carvedilol (Coreg -) 6.25 mg PO BID [facility] Last Admin: 04/18/19 10:31 Dose: 6.25 mg Clopidogrel Bisulfate (Plavix -) 75 mg PO DAILY [facility] Last Admin: 04/18/19 10:31 Dose: 75 mg Doxazosin Mesylate (Cardura -) 2 mg PO HS [facility] Last Admin: 04/17/19 23:04 Dose: 2 mg Famotidine (Pepcid -) 20 mg PO DAILY [facility] Last Admin: 04/18/19 10:31 Dose: 20 mg Furosemide (Lasix Injection -) 40 mg IVPUSH DAILY [facility] Last Admin: 04/18/19 10:31 Dose: 40 mg Guaifenesin (Robitussin -) 10 ml PO Q6H PRN PRN Reason: COUGH Last Admin: 04/17/19 17:59 Dose: 10 ml Ceftriaxone Sodium 1 gm/ (Dextrose) 50 mls @ 100 mls/hr IVPB DAILY [facility]; Protocol Last Admin: 04/18/19 10:30 Dose: 100 mls/hr Methylprednisolone Sodium Succinate (Solu-Medrol -) 40 mg IVPUSH Q8H-IV [facility] Last Admin: 04/18/19 10:31 Dose: 40 mg Montelukast Sodium (Singulair -) 10 mg PO HS [facility] Last Admin: 04/17/19 23:04 Dose: 10 mg - Objective Vital Signs: Vital Signs Temperature 98.8 F 04/18/19 10:07 Pulse Rate 78 04/18/19 10:07 Respiratory Rate 18 04/18/19 10:07 Blood Pressure 171/90 H 04/18/19 10:07 O2 Sat by Pulse Oximetry (%) 98 04/17/19 20:56 Constitutional: Yes: No Distress, Calm Eyes: Yes: Conjunctiva Clear HENT: Yes: Atraumatic Neck: Yes: Supple Cardiovascular: Yes: Regular Rate and Rhythm Respiratory: Yes: Diminished Gastrointestinal: Yes: Soft. No: Tenderness Genitourinary: No: Hematuria Musculoskeletal: No: Joint Stiffness, Joint Swelling Extremities: No: Cold, Cool, Cyanosis Edema: No (much improved ) Integumentary: No: Rash, Venous Stasis Changes Neurological: Yes: Alert ...Motor Strength: WNL Psychiatric: Yes: Alert, Oriented. No: Agitated, Suicidal Ideation Labs: CBC, BMP 04/17/19 17:55 04/17/19 17:55 INR, PTT INR 1.08 (0.83-1.09) 04/17/19 08:05 - ....Imaging Other: Report Reviewed Assessment/Plan 84y M history of CHF, prior CVA, HTN, HLD, COPD (on no 02), dementia, prostate CA, h/o PEG / aspiration PNA few years ago - presenting with complaint of confusion/cough for the past four days associated with fever presents with increasing sob and nonproductive cough. Chronic legs symmetrical edema CXR c/w RLL PNA PNA,acute on chronic COPD exac ID, pulmonary and cardiology f/u; improved with current treatment; IV ATB; IV steroids, nebs; O2; lasix f/u labs and cultures; d/w pt do not get OOB alone risk of falls; call staff for help if needs OOB he said he will; falls decubs DVT and aspiration PFX dw pt and staff prognosis guarded
--- NOTE | 2019-04-18 14:28 | PN ---
Progress Note, Physician Chief Complaint: Pt responds to questions; disoriented. History of Present Illness: 84y M history of diastolic CHF, prior CVA, HTN, HLD, COPD (on no 02), hyperglycemia (on steroids; mildly elevated HGBA1c), dementia presenting with complaint of confusion/cough for the past four days associated with fever presents with increasing sob and nonproductive cough. Pt denies any chest pain, n/v, diaphoreis, abd pain, back pain, new leg swelling always has baseline swelling). no sick contacts or recent hospitalizations - Current Medication List Current Medications: Active Medications Acetaminophen (Tylenol -) 650 mg PO TID PRN PRN Reason: FEVER Albuterol/Ipratropium (Duoneb -) 1 amp NEB RQID [facility] Last Admin: 04/18/19 11:20 Dose: 1 amp Amlodipine Besylate (Norvasc -) 10 mg PO DAILY [facility] Last Admin: 04/18/19 10:31 Dose: 10 mg Aspirin (Asa -) 81 mg PO DAILY [facility] Last Admin: 04/18/19 10:31 Dose: 81 mg Atorvastatin Calcium (Lipitor -) 40 mg PO HS [facility] Last Admin: 04/17/19 23:04 Dose: 40 mg Azithromycin (Zithromax -) 250 mg PO DAILY [facility] Last Admin: 04/18/19 10:31 Dose: 250 mg Budesonide/Formoterol Fumarate (Symbicort 160/4.5mcg -) 1 puff IH BID [facility] Last Admin: 04/17/19 23:04 Dose: 1 puff Carvedilol (Coreg -) 6.25 mg PO BID [facility] Last Admin: 04/18/19 10:31 Dose: 6.25 mg Clopidogrel Bisulfate (Plavix -) 75 mg PO DAILY [facility] Last Admin: 04/18/19 10:31 Dose: 75 mg Doxazosin Mesylate (Cardura -) 2 mg PO HS [facility] Last Admin: 04/17/19 23:04 Dose: 2 mg Famotidine (Pepcid -) 20 mg PO DAILY [facility] Last Admin: 04/18/19 10:31 Dose: 20 mg Furosemide (Lasix Injection -) 40 mg IVPUSH DAILY [facility] Last Admin: 04/18/19 10:31 Dose: 40 mg Guaifenesin (Robitussin -) 10 ml PO Q6H PRN PRN Reason: COUGH Last Admin: 04/17/19 17:59 Dose: 10 ml Ceftriaxone Sodium 1 gm/ (Dextrose) 50 mls @ 100 mls/hr IVPB DAILY [facility]; Protocol Last Admin: 04/18/19 10:30 Dose: 100 mls/hr Methylprednisolone Sodium Succinate (Solu-Medrol -) 40 mg IVPUSH Q8H-IV [facility] Last Admin: 04/18/19 10:31 Dose: 40 mg Montelukast Sodium (Singulair -) 10 mg PO HS [facility] Last Admin: 04/17/19 23:04 Dose: 10 mg - Objective Vital Signs: Vital Signs Temperature 98.8 F 04/18/19 10:07 Pulse Rate 78 04/18/19 10:07 Respiratory Rate 18 04/18/19 10:07 Blood Pressure 171/90 H 04/18/19 10:07 O2 Sat by Pulse Oximetry (%) 98 04/17/19 20:56 Labs: CBC, BMP 04/17/19 17:55 04/17/19 17:55 INR, PTT INR 1.08 (0.83-1.09) 04/17/19 08:05 Problem List - Problems (1) Acute on chronic diastolic (congestive) heart failure Assessment/Plan: On Coreg, Lasix, amlodipine, prinivil. Consider stopping Cardura (may increase CHF), unless needed for other reasons. BUN/Cr, electrolytes, Is and Os, daily weight. Code(s): I50.33 - ACUTE ON CHRONIC DIASTOLIC (CONGESTIVE) HEART FAILURE (2) Acute bronchitis Code(s): J20.9 - ACUTE BRONCHITIS, UNSPECIFIED (3) Acute exacerbation of chronic obstructive pulmonary disease (COPD) Code(s): J44.1 - CHRONIC OBSTRUCTIVE PULMONARY DISEASE W (ACUTE) EXACERBATION (4) Dementia Code(s): F03.90 - UNSPECIFIED DEMENTIA WITHOUT BEHAVIORAL DISTURBANCE (5) Weakness Code(s): R53.1 - WEAKNESS (6) HTN (hypertension) Assessment/Plan: Please see under "diastolilic CHF". Code(s): I10 - ESSENTIAL (PRIMARY) HYPERTENSION
[2019-04-18] MEDS: LISINOPRIL 5 MG TABLET (FP) PO SCH (15:44)
[2019-04-18] MEDS ORDERED: PT OWN MED DRAWER 7, Y5N ONE ×2 (16:06→20:32)
--- NOTE | 2019-04-18 17:33 | PN ---
Progress Note (short form) - Note Progress Note: much improved comfortable alert less cough Vital Signs Period Temp Pulse Resp BP Sys/Hernandez Pulse Ox Last 24 Hr 97.8 F-98.8 F 57-88 18-18 126-171/66-90 98 cor-rrr lungs scattered rhonchi - few abd soft,nt ext no edema CBC, BMP 04/17/19 17:55 04/17/19 17:55 Microbiology 04/17/19 08:05 Blood - Peripheral Venous Blood Culture - Preliminary NO GROWTH OBTAINED AFTER 24 HOURS, INCUBATION TO CONTINUE FOR 4 DAYS. 04/17/19 08:05 Blood - Peripheral Venous Blood Culture - Preliminary NO GROWTH OBTAINED AFTER 24 HOURS, INCUBATION TO CONTINUE FOR 4 DAYS. 04/17/19 09:30 Urine - Urine Clean Catch Urine Culture - Final NO GROWTH OBTAINED Current Medications Acetaminophen (Tylenol -) 650 mg PO TID PRN PRN Reason: FEVER Albuterol/Ipratropium (Duoneb -) 1 amp NEB RQID [facility] Last Admin: 04/18/19 16:00 Dose: 1 amp Amlodipine Besylate (Norvasc -) 10 mg PO DAILY [facility] Last Admin: 04/18/19 10:31 Dose: 10 mg Aspirin (Asa -) 81 mg PO DAILY [facility] Last Admin: 04/18/19 10:31 Dose: 81 mg Atorvastatin Calcium (Lipitor -) 40 mg PO HS [facility] Last Admin: 04/17/19 23:04 Dose: 40 mg Azithromycin (Zithromax -) 250 mg PO DAILY [facility] Last Admin: 04/18/19 10:31 Dose: 250 mg Budesonide/Formoterol Fumarate (Symbicort 160/4.5mcg -) 1 puff IH BID [facility] Last Admin: 04/17/19 23:04 Dose: 1 puff Carvedilol (Coreg -) 6.25 mg PO BID [facility] Last Admin: 04/18/19 10:31 Dose: 6.25 mg Clopidogrel Bisulfate (Plavix -) 75 mg PO DAILY [facility] Last Admin: 04/18/19 10:31 Dose: 75 mg Doxazosin Mesylate (Cardura -) 2 mg PO HS [facility] Last Admin: 04/17/19 23:04 Dose: 2 mg Famotidine (Pepcid -) 20 mg PO DAILY [facility] Last Admin: 04/18/19 10:31 Dose: 20 mg Furosemide (Lasix Injection -) 40 mg IVPUSH DAILY [facility] Last Admin: 04/18/19 10:31 Dose: 40 mg Guaifenesin (Robitussin -) 10 ml PO Q6H PRN PRN Reason: COUGH Last Admin: 04/17/19 17:59 Dose: 10 ml Ceftriaxone Sodium 1 gm/ (Dextrose) 50 mls @ 100 mls/hr IVPB DAILY [facility]; Protocol Last Admin: 04/18/19 10:30 Dose: 100 mls/hr Lisinopril (Prinivil) 5 mg PO DAILY [facility] Last Admin: 04/18/19 15:44 Dose: 5 mg Methylprednisolone Sodium Succinate (Solu-Medrol -) 40 mg IVPUSH Q8H-IV [facility] Last Admin: 04/18/19 10:31 Dose: 40 mg Montelukast Sodium (Singulair -) 10 mg PO HS [facility] Last Admin: 04/17/19 23:04 Dose: 10 mg a/p CAP- RLL- improving rocephin/zithromax day #2 copd exacerbation- improving consider switch to po steroids and po antibotics (ceftin 500 bid) in next 24-48 hours clinically much improved Problem List - Problems (1) Pneumonia Code(s): J18.9 - PNEUMONIA, UNSPECIFIED ORGANISM Qualifiers: Pneumonia type: aspiration pneumonia Aspiration pneumonia type: unspecified Laterality: bilateral Lung location: unspecified part of lung Qualified Code(s): J69.0 - Pneumonitis due to inhalation of food and vomit (2) Acute CHF (congestive heart failure) Code(s): I50.9 - HEART FAILURE, UNSPECIFIED (3) Acute exacerbation of chronic obstructive pulmonary disease (COPD) Code(s): J44.1 - CHRONIC OBSTRUCTIVE PULMONARY DISEASE W (ACUTE) EXACERBATION (4) Abdominal aortic aneurysm (AAA) Code(s): I71.4 - ABDOMINAL AORTIC ANEURYSM, WITHOUT RUPTURE
[2019-04-18] MEDS: BUDESONIDE/FORMETEROL FUMARATE 160/4.5 mcg INHALER IH SCH ×2 (17:46→21:43)
[2019-04-18] MEDS: ATORVASTATIN CA 40 MG TABLET (FP) PO SCH (21:43)
[2019-04-18] MEDS: MONTELUKAST NA 10 MG TABLET PO SCH (21:43)
[2019-04-18] MEDS: DOXAZOSIN MESYLATE 2 MG TABLET (FP) PO SCH (21:43)
[2019-04-19] MEDS: methylPREDNISolone NA SUCC 40 MG/1 ML VIAL IVPUSH SCH ×3 (01:59→23:25)
[2019-04-19] MEDS: ALBUTEROL SO4 2.5/IPRATROPIUM 0.5 INH SOL 3 ML VIAL.NEB. NEB SCH ×4 (07:56→21:12)
--- NOTE | 2019-04-19 08:23 | PN ---
Progress Note, Physician Chief Complaint: awake alert x3 in bed NAD VSS afebrile slightly less cough; less edema legs consults appreciated - Current Medication List Current Medications: Active Medications Acetaminophen (Tylenol -) 650 mg PO TID PRN PRN Reason: FEVER Albuterol/Ipratropium (Duoneb -) 1 amp NEB RQID [facility] Last Admin: 04/18/19 20:42 Dose: 1 amp Amlodipine Besylate (Norvasc -) 10 mg PO DAILY [facility] Last Admin: 04/18/19 10:31 Dose: 10 mg Aspirin (Asa -) 81 mg PO DAILY [facility] Last Admin: 04/18/19 10:31 Dose: 81 mg Atorvastatin Calcium (Lipitor -) 40 mg PO HS [facility] Last Admin: 04/18/19 21:43 Dose: 40 mg Azithromycin (Zithromax -) 250 mg PO DAILY [facility] Last Admin: 04/18/19 10:31 Dose: 250 mg Budesonide/Formoterol Fumarate (Symbicort 160/4.5mcg -) 1 puff IH BID [facility] Last Admin: 04/18/19 21:43 Dose: 1 puff Carvedilol (Coreg -) 6.25 mg PO BID [facility] Last Admin: 04/18/19 21:43 Dose: 6.25 mg Clopidogrel Bisulfate (Plavix -) 75 mg PO DAILY [facility] Last Admin: 04/18/19 10:31 Dose: 75 mg Doxazosin Mesylate (Cardura -) 2 mg PO HS [facility] Last Admin: 04/18/19 21:43 Dose: 2 mg Famotidine (Pepcid -) 20 mg PO DAILY [facility] Last Admin: 04/18/19 10:31 Dose: 20 mg Furosemide (Lasix Injection -) 40 mg IVPUSH DAILY [facility] Last Admin: 04/18/19 10:31 Dose: 40 mg Guaifenesin (Robitussin -) 10 ml PO Q6H PRN PRN Reason: COUGH Last Admin: 04/17/19 17:59 Dose: 10 ml Ceftriaxone Sodium 1 gm/ (Dextrose) 50 mls @ 100 mls/hr IVPB DAILY [facility]; Protocol Last Admin: 04/18/19 10:30 Dose: 100 mls/hr Lisinopril (Prinivil) 5 mg PO DAILY [facility] Last Admin: 04/18/19 15:44 Dose: 5 mg Methylprednisolone Sodium Succinate (Solu-Medrol -) 40 mg IVPUSH Q8H-IV [facility] Last Admin: 04/19/19 01:59 Dose: 40 mg Montelukast Sodium (Singulair -) 10 mg PO HS [facility] Last Admin: 04/18/19 21:43 Dose: 10 mg - Objective Vital Signs: Vital Signs Temperature 97.7 F 04/19/19 06:54 Pulse Rate 66 04/19/19 06:54 Respiratory Rate 18 04/19/19 06:54 Blood Pressure 146/77 04/19/19 06:54 O2 Sat by Pulse Oximetry (%) 92 L 04/18/19 21:00 Constitutional: Yes: No Distress Eyes: Yes: Conjunctiva Clear HENT: Yes: Atraumatic Neck: Yes: Supple Cardiovascular: Yes: Regular Rate and Rhythm Respiratory: Yes: Diminished Gastrointestinal: Yes: Soft. No: Tenderness Genitourinary: No: Hematuria Musculoskeletal: No: Joint Stiffness, Joint Swelling Extremities: No: Cold, Cool Edema: No Integumentary: No: Rash, Venous Stasis Changes Neurological: Yes: Alert ...Motor Strength: WNL Psychiatric: Yes: Alert Labs: CBC, BMP 04/17/19 17:55 04/17/19 17:55 INR, PTT INR 1.08 (0.83-1.09) 04/17/19 08:05 - ....Imaging Other: Report Reviewed Assessment/Plan 84y M history of CHF, prior CVA, HTN, HLD, COPD (on no 02), dementia, prostate CA, h/o PEG / aspiration PNA few years ago - presenting with complaint of confusion/cough for the past four days associated with fever presents with increasing sob and nonproductive cough. CXR c/w RLL PNA PNA,acute on chronic COPD exac - slightly better CHF legs edema improved ID, pulmonary and cardiology f/u; improved with current treatment; IV ATB; IV steroids, nebs; O2; lasix f/u labs and cultures; d/w pt do not get OOB alone risk of falls; call staff for help if needs OOB he said he will; falls decubs DVT and aspiration PFX dw pt and staff prognosis guarded
[2019-04-19] MEDS ORDERED: DEXTROSE 5%-WATER - 50 ML IVPB ONE (09:22)
[2019-04-19] MEDS ORDERED: cefTRIAXone SODIUM 1 GM VIAL ONE (09:22)
[2019-04-19] MEDS: CEFTRIAXONE 1 GM in DEXTROSE 5%-WATER - 50 ML IVPB SCH (09:24)
[2019-04-19] MEDS: CARVEDILOL 6.25 MG TABLET (FP) PO SCH ×2 (09:25→23:24)
[2019-04-19] MEDS: amLODIPine BESYLATE 10 MG TABLET (FP) PO SCH (09:25)
[2019-04-19] MEDS: CLOPIDOGREL BISULFATE 75 MG TABLET (FP) PO SCH (09:25)
[2019-04-19] MEDS: ASPIRIN 81 MG CHEWABLE TABLETS PO SCH (09:25)
[2019-04-19] MEDS: FUROSEMIDE 40 MG/4 ML INJECTABLE VIAL IVPUSH SCH (09:25)
[2019-04-19] MEDS: AZITHROMYCIN 250 MG TABLET PO SCH (09:25)
[2019-04-19] MEDS: LISINOPRIL 5 MG TABLET (FP) PO SCH (09:25)
[2019-04-19] MEDS: FAMOTIDINE 20 MG TABLET PO SCH (09:29)
[2019-04-19] MEDS: BUDESONIDE/FORMETEROL FUMARATE 160/4.5 mcg INHALER IH SCH ×2 (10:00→23:26)
[2019-04-19 11:11] LABS: BASO % 0.1 % (0-2.0); HEMATOCRIT 40.8 % (35.4-49); HEMOGLOBIN 13.7 GM/dL (11.7-16.9); MCH 27.7 pg (25.7-33.7); MCHC 33.5 g/dl (32.0-35.9); MEAN CELL VOLUME 82.8 fl (80-96); MEAN PLT VOLUME 7.4 fl (7.5-11.1); MONO % 3.2 % (3.8-10.2); NEUT % 92.7 % (42.8-82.8); PLATELET COUNT 324 K/MM3 (134-434); RBC 4.93 M/mm3 (4.00-5.60); RDW 14.4 % (11.9-15.9); WHITE BLOOD COUNT 12.5 K/mm3 (4.0-10.0)
--- NOTE | 2019-04-19 11:20 | PN ---
Progress Note, Physician History of Present Illness: 84y M history of CHF, prior CVA, HTN, HLD, COPD (on no 02), dementia presenting with complaint of confusion/cough for the past four days associated with fever presents with increasing sob and nonproductive cough. Pt denies any chest pain, n/v, diaphoreis, abd pain, back pain, new leg swelling always has baseline swelling). no sick contacts or recent hospitalizations PMD: Dr. Bhavin Geller: Dr. Nickerson PMH Past medical history Major events LE angio 02/21/2015 Dr. Alcazar Left EIA/[employer] DC[employer] 08/10/2014 Dr Alcazar PCI LCx 09/20/2014 Dr Alcazar Ongoing medical problems Claudication, intermittent HTN Hyperlipidemia TIA/CVA 3.3 cm AAA August 2017 - Current Medication List Current Medications: Active Medications Acetaminophen (Tylenol -) 650 mg PO TID PRN PRN Reason: FEVER Albuterol/Ipratropium (Duoneb -) 1 amp NEB RQID [facility] Last Admin: 04/19/19 07:56 Dose: 1 amp Amlodipine Besylate (Norvasc -) 10 mg PO DAILY [facility] Last Admin: 04/19/19 09:25 Dose: 10 mg Aspirin (Asa -) 81 mg PO DAILY [facility] Last Admin: 04/19/19 09:25 Dose: 81 mg Atorvastatin Calcium (Lipitor -) 40 mg PO HS [facility] Last Admin: 04/18/19 21:43 Dose: 40 mg Azithromycin (Zithromax -) 250 mg PO DAILY [facility] Last Admin: 04/19/19 09:25 Dose: 250 mg Budesonide/Formoterol Fumarate (Symbicort 160/4.5mcg -) 1 puff IH BID [facility] Last Admin: 04/18/19 21:43 Dose: 1 puff Carvedilol (Coreg -) 6.25 mg PO BID [facility] Last Admin: 04/19/19 09:25 Dose: 6.25 mg Clopidogrel Bisulfate (Plavix -) 75 mg PO DAILY [facility] Last Admin: 04/19/19 09:25 Dose: 75 mg Doxazosin Mesylate (Cardura -) 2 mg PO HS [facility] Last Admin: 04/18/19 21:43 Dose: 2 mg Famotidine (Pepcid -) 20 mg PO DAILY [facility] Last Admin: 04/19/19 09:29 Dose: 20 mg Furosemide (Lasix Injection -) 40 mg IVPUSH DAILY [facility] Last Admin: 04/19/19 09:25 Dose: 40 mg Guaifenesin (Robitussin -) 10 ml PO Q6H PRN PRN Reason: COUGH Last Admin: 04/17/19 17:59 Dose: 10 ml Ceftriaxone Sodium 1 gm/ (Dextrose) 50 mls @ 100 mls/hr IVPB DAILY [facility]; Protocol Last Admin: 04/19/19 09:24 Dose: 100 mls/hr Lisinopril (Prinivil) 5 mg PO DAILY [facility] Last Admin: 04/19/19 09:25 Dose: 5 mg Methylprednisolone Sodium Succinate (Solu-Medrol -) 40 mg IVPUSH Q12H [facility] Montelukast Sodium (Singulair -) 10 mg PO HS [facility] Last Admin: 04/18/19 21:43 Dose: 10 mg - Objective Vital Signs: Vital Signs Temperature 97.3 F L 04/19/19 09:08 Pulse Rate 67 04/19/19 09:08 Respiratory Rate 18 04/19/19 09:08 Blood Pressure 151/75 04/19/19 09:08 O2 Sat by Pulse Oximetry (%) 99 04/19/19 09:00 Eyes: Yes: WNL, Conjunctiva Clear, EOM Intact HENT: Yes: WNL, Atraumatic, Normocephalic Neck: Yes: WNL, Supple, Trachea Midline Cardiovascular: Yes: WNL, Regular Rate and Rhythm Respiratory: Yes: WNL, Regular, CTA Bilaterally Gastrointestinal: Yes: WNL, Normal Bowel Sounds Genitourinary: Yes: WNL Musculoskeletal: Yes: WNL Extremities: Yes: WNL Edema: No Integumentary: Yes: WNL Neurological: Yes: WNL, Alert, Oriented ...Motor Strength: WNL Psychiatric: Yes: WNL Labs: CBC, BMP 04/19/19 10:30 INR, PTT INR 1.08 (0.83-1.09) 04/17/19 08:05 Problem List - Problems (1) Abdominal aneurysm Code(s): I71.4 - ABDOMINAL AORTIC ANEURYSM, WITHOUT RUPTURE (2) Abdominal aortic aneurysm (AAA) Code(s): I71.4 - ABDOMINAL AORTIC ANEURYSM, WITHOUT RUPTURE (3) Abdominal pain Code(s): R10.9 - UNSPECIFIED ABDOMINAL PAIN (4) Abnormal liver function tests Code(s): R94.5 - ABNORMAL RESULTS OF LIVER FUNCTION STUDIES (5) Acute CHF (congestive heart failure) Code(s): I50.9 - HEART FAILURE, UNSPECIFIED (6) Acute bronchitis Code(s): J20.9 - ACUTE BRONCHITIS, UNSPECIFIED (7) Acute exacerbation of chronic obstructive pulmonary disease (COPD) Code(s): J44.1 - CHRONIC OBSTRUCTIVE PULMONARY DISEASE W (ACUTE) EXACERBATION (8) Acute on chronic respiratory failure with hypoxemia Code(s): J96.21 - ACUTE AND CHRONIC RESPIRATORY FAILURE WITH HYPOXIA (9) Aspiration into airway Code(s): T17.908A - UNSP FB IN RESP TRACT, PART UNSP CAUSING OTH INJURY, INIT (10) Asymptomatic bacteriuria Code(s): R82.71 - BACTERIURIA (11) Atopic dermatitis Code(s): L20.9 - ATOPIC DERMATITIS, UNSPECIFIED Qualifiers: Atopic dermatitis type: unspecified Qualified Code(s): L20.9 - Atopic dermatitis, unspecified (12) Bacteremia Code(s): R78.81 - BACTEREMIA (13) Bandemia Code(s): D72.825 - BANDEMIA (14) Benign localized hyperplasia of prostate with urinary obstruction Code(s): N40.1 - BENIGN PROSTATIC HYPERPLASIA WITH LOWER URINARY TRACT SYMP; N13.8 - OTHER OBSTRUCTIVE AND REFLUX UROPATHY (15) Bilateral leg weakness Code(s): M62.81 - MUSCLE WEAKNESS (GENERALIZED) (16) Blister Code(s): T14.8XXA - OTHER INJURY OF UNSPECIFIED BODY REGION, INITIAL ENCOUNTER (17) CHF (congestive heart failure) Code(s): I50.9 - HEART FAILURE, UNSPECIFIED Qualifiers: Heart failure type: unspecified Heart failure chronicity: chronic Qualified Code(s): I50.9 - Heart failure, unspecified (18) COPD exacerbation Code(s): J44.1 - CHRONIC OBSTRUCTIVE PULMONARY DISEASE W (ACUTE) EXACERBATION (19) CVA (cerebral infarction) Code(s): I63.9 - CEREBRAL INFARCTION, UNSPECIFIED (20) Cerebral aneurysm Code(s): I67.1 - CEREBRAL ANEURYSM, NONRUPTURED (21) Chronic obstructive pulmonary disease Code(s): J44.9 - CHRONIC OBSTRUCTIVE PULMONARY DISEASE, UNSPECIFIED (22) Complication of [place]av[place] catheter Code(s): T83.9XXA - UNSP COMPLICATION OF GENITOURINARY PROSTH DEV/GRFT, INIT (23) Constipation Code(s): K59.00 - CONSTIPATION, UNSPECIFIED (24) Dehydration Code(s): E86.0 - DEHYDRATION (25) Dementia Code(s): F03.90 - UNSPECIFIED DEMENTIA WITHOUT BEHAVIORAL DISTURBANCE (26) Depression Code(s): F32.9 - MAJOR DEPRESSIVE DISORDER, SINGLE EPISODE, UNSPECIFIED (27) Diastolic CHF Code(s): I50.30 - UNSPECIFIED DIASTOLIC (CONGESTIVE) HEART FAILURE (28) Distended bladder Code(s): N32.89 - OTHER SPECIFIED DISORDERS OF BLADDER (29) Dysphagia Code(s): R13.10 - DYSPHAGIA, UNSPECIFIED (30) Dysphagia Code(s): R13.10 - DYSPHAGIA, UNSPECIFIED Qualifiers: Dysphagia type: unspecified Qualified Code(s): R13.10 - Dysphagia, unspecified (31) Elevated LFTs Code(s): R79.89 - OTHER SPECIFIED ABNORMAL FINDINGS OF BLOOD CHEMISTRY (32) Fall Code(s): W19.XXXA - UNSPECIFIED FALL, INITIAL ENCOUNTER Qualifiers: Encounter type: initial encounter Qualified Code(s): W19.XXXA - Unspecified fall, initial encounter (33) [place] cardiac risk >20% in next 10 years Code(s): Z91.89 - OTH PERSONAL RISK FACTORS, NOT ELSEWHERE CLASSIFIED (34) Gross hematuria Code(s): R31.0 - GROSS HEMATURIA (35) HTN (hypertension) Code(s): I10 - ESSENTIAL (PRIMARY) HYPERTENSION (36) Hyperbilirubinemia Code(s): E80.6 - OTHER DISORDERS OF BILIRUBIN METABOLISM (37) Hyperglycemia Code(s): R73.9 - HYPERGLYCEMIA, UNSPECIFIED (38) Hyperlipemia, mixed Code(s): E78.2 - MIXED HYPERLIPIDEMIA (39) Hyperlipidemia Code(s): E78.5 - HYPERLIPIDEMIA, UNSPECIFIED (40) Hypernatremia Code(s): E87.0 - HYPEROSMOLALITY AND HYPERNATREMIA (41) Hypoalbuminemia Code(s): E88.09 - OTH DISORDERS OF PLASMA-PROTEIN METABOLISM, NEC (42) Hypokalemia Code(s): E87.6 - HYPOKALEMIA (43) Hypokalemia due to inadequate potassium intake Code(s): E87.6 - HYPOKALEMIA (44) Hypomagnesemia Code(s): E83.42 - HYPOMAGNESEMIA (45) Hypophosphatemia Code(s): E83.39 - OTHER DISORDERS OF PHOSPHORUS METABOLISM (46) Hypothyroid Code(s): E03.9 - HYPOTHYROIDISM, UNSPECIFIED (47) 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 Code(s): I87.332 - CHRONIC VENOUS HTN W ULCER AND INFLAMMATION OF L LOW EXTREM; L97.929 - NON-PRS CHRONIC ULC UNSP PRT OF L LOW LEG W UNSP SEVERITY (48) Ileus following gastrointestinal surgery Code(s): K91.3 - POSTPROCEDURAL INTESTINAL OBSTRUCTION * DO NOT USE * (49) Osteoporosis Code(s): M81.0 - AGE-RELATED OSTEOPOROSIS W/O CURRENT PATHOLOGICAL FRACTURE (50) PSVT (paroxysmal supraventricular tachycardia) Code(s): I47.1 - SUPRAVENTRICULAR TACHYCARDIA (51) Pneumatosis intestinalis Code(s): K63.89 - OTHER SPECIFIED DISEASES OF INTESTINE (52) Pneumonia Code(s): J18.9 - PNEUMONIA, UNSPECIFIED ORGANISM Qualifiers: Pneumonia type: aspiration pneumonia Aspiration pneumonia type: unspecified Laterality: bilateral Lung location: unspecified part of lung Qualified Code(s): J69.0 - Pneumonitis due to inhalation of food and vomit (53) Prostate cancer Code(s): C61 - MALIGNANT NEOPLASM OF PROSTATE (54) Renal calculi Code(s): N20.0 - CALCULUS OF KIDNEY (55) Right hip pain Code(s): M25.551 - PAIN IN RIGHT HIP (56) Right leg pain Code(s): M79.604 - PAIN IN RIGHT LEG (57) S/P percutaneous endoscopic gastrostomy (PEG) tube placement Code(s): Z93.1 - GASTROSTOMY STATUS (58) SBO (small bowel obstruction) Code(s): K56.69 - OTHER INTESTINAL OBSTRUCTION * DO NOT USE * (59) Silent aspiration Code(s): T17.900A - UNSP FB IN RESP TRACT, PART UNSP CAUSING ASPHYX, INIT (60) Small bowel mass Code(s): K63.89 - OTHER SPECIFIED DISEASES OF INTESTINE (61) Stricture intestinal Code(s): K56.699 - OTHER INTESTNL OBST UNSP TO PARTIAL VERSUS COMPLETE OBST (62) TIA (transient ischemic attack) Code(s): G45.9 - TRANSIENT CEREBRAL ISCHEMIC ATTACK, UNSPECIFIED (63) Upper respiratory disease Code(s): J39.9 - DISEASE OF UPPER RESPIRATORY TRACT, UNSPECIFIED (64) Urinary retention Code(s): R33.9 - RETENTION OF URINE, UNSPECIFIED (65) Urinary retention due to benign prostatic hyperplasia Code(s): N40.1 - BENIGN PROSTATIC HYPERPLASIA WITH LOWER URINARY TRACT SYMP; R33.8 - OTHER RETENTION OF URINE (66) Urinary tract infection Code(s): N39.0 - URINARY TRACT INFECTION, SITE NOT SPECIFIED Qualifiers: Urinary tract infection type: acute cystitis Hematuria presence: with hematuria Qualified Code(s): N30.01 - Acute cystitis with hematuria (67) Venous (peripheral) insufficiency Code(s): I87.2 - VENOUS INSUFFICIENCY (CHRONIC) (PERIPHERAL) (68) Venous insufficiency Code(s): I87.2 - VENOUS INSUFFICIENCY (CHRONIC) (PERIPHERAL) (69) Wasting syndrome Code(s): R64 - CACHEXIA (70) Weakness Code(s): R53.1 - WEAKNESS Assessment/Plan - Problems (1) Acute on chronic diastolic (congestive) heart failure Assessment/Plan: On Coreg, Lasix, amlodipine, prinivil. Consider stopping Cardura (may increase CHF), unless needed for other reasons. Code(s): I50.33 - ACUTE ON CHRONIC DIASTOLIC (CONGESTIVE) HEART FAILURE (2) Acute bronchitis Code(s): J20.9 - ACUTE BRONCHITIS, UNSPECIFIED (3) Acute exacerbation of chronic obstructive pulmonary disease (COPD) Code(s): J44.1 - CHRONIC OBSTRUCTIVE PULMONARY DISEASE W (ACUTE) EXACERBATION (4) Dementia Code(s): F03.90 - UNSPECIFIED DEMENTIA WITHOUT BEHAVIORAL DISTURBANCE (5) Weakness Code(s): R53.1 - WEAKNESS
[2019-04-19 11:47] LABS: CALCIUM 9.3 mg/dL (8.5-10.1); CREATININE 0.8 mg/dL (0.55-1.3); POTASSIUM 3.6 mmol/L (3.5-5.1)
[2019-04-19 13:27] LABS: ANISOCYTOSIS 2+; MACROCYTOSIS 0; OVALOCYTE 2+; PLATELET ESTIMATE NORMAL
--- NOTE | 2019-04-19 14:01 | PN ---
Progress Note, Physician History of Present Illness: pulmonary alert,feeling better,sob improving - Current Medication List Current Medications: Active Medications Acetaminophen (Tylenol -) 650 mg PO TID PRN PRN Reason: FEVER Albuterol/Ipratropium (Duoneb -) 1 amp NEB RQID [facility] Last Admin: 04/19/19 11:35 Dose: 1 amp Amlodipine Besylate (Norvasc -) 10 mg PO DAILY [facility] Last Admin: 04/19/19 09:25 Dose: 10 mg Aspirin (Asa -) 81 mg PO DAILY [facility] Last Admin: 04/19/19 09:25 Dose: 81 mg Atorvastatin Calcium (Lipitor -) 40 mg PO HS [facility] Last Admin: 04/18/19 21:43 Dose: 40 mg Azithromycin (Zithromax -) 250 mg PO DAILY [facility] Last Admin: 04/19/19 09:25 Dose: 250 mg Budesonide/Formoterol Fumarate (Symbicort 160/4.5mcg -) 1 puff IH BID [facility] Last Admin: 04/19/19 10:00 Dose: Not Given Carvedilol (Coreg -) 6.25 mg PO BID [facility] Last Admin: 04/19/19 09:25 Dose: 6.25 mg Clopidogrel Bisulfate (Plavix -) 75 mg PO DAILY [facility] Last Admin: 04/19/19 09:25 Dose: 75 mg Doxazosin Mesylate (Cardura -) 2 mg PO HS [facility] Last Admin: 04/18/19 21:43 Dose: 2 mg Famotidine (Pepcid -) 20 mg PO DAILY [facility] Last Admin: 04/19/19 09:29 Dose: 20 mg Furosemide (Lasix Injection -) 40 mg IVPUSH DAILY [facility] Last Admin: 04/19/19 09:25 Dose: 40 mg Guaifenesin (Robitussin -) 10 ml PO Q6H PRN PRN Reason: COUGH Last Admin: 04/17/19 17:59 Dose: 10 ml Ceftriaxone Sodium 1 gm/ (Dextrose) 50 mls @ 100 mls/hr IVPB DAILY [facility]; Protocol Last Admin: 04/19/19 09:24 Dose: 100 mls/hr Insulin Aspart (Novolog Vial Sliding Scale -) 1 vial SQ ACHS [facility]; Protocol Lisinopril (Prinivil) 5 mg PO DAILY [facility] Last Admin: 04/19/19 09:25 Dose: 5 mg Methylprednisolone Sodium Succinate (Solu-Medrol -) 40 mg IVPUSH BID [facility] Montelukast Sodium (Singulair -) 10 mg PO HS [facility] Last Admin: 04/18/19 21:43 Dose: 10 mg - Objective Vital Signs: Vital Signs Temperature 97.3 F L 04/19/19 09:08 Pulse Rate 67 04/19/19 09:08 Respiratory Rate 18 04/19/19 09:08 Blood Pressure 151/75 04/19/19 09:08 O2 Sat by Pulse Oximetry (%) 99 04/19/19 09:00 Constitutional: Yes: Well Nourished, Calm Eyes: Yes: WNL HENT: Yes: WNL Neck: Yes: WNL Cardiovascular: Yes: Regular Rate and Rhythm, S1, S2 Respiratory: Yes: Diminished Gastrointestinal: Yes: Normal Bowel Sounds, Soft Extremities: Yes: WNL Edema: No Labs: CBC, BMP 04/19/19 10:30 04/19/19 10:30 INR, PTT INR 1.08 (0.83-1.09) 04/17/19 08:05 Assessment/Plan Problem List - Problems (1) COPD exacerbation Code(s): J44.1 - CHRONIC OBSTRUCTIVE PULMONARY DISEASE W (ACUTE) EXACERBATION (2) Abdominal aortic aneurysm (AAA) Code(s): I71.4 - ABDOMINAL AORTIC ANEURYSM, WITHOUT RUPTURE (3) Acute exacerbation of chronic obstructive pulmonary disease (COPD) Code(s): J44.1 - CHRONIC OBSTRUCTIVE PULMONARY DISEASE W (ACUTE) EXACERBATION (4) CHF (congestive heart failure) Code(s): I50.9 - HEART FAILURE, UNSPECIFIED Qualifiers: Heart failure type: unspecified Heart failure chronicity: chronic Qualified Code(s): I50.9 - Heart failure, unspecified (5) Chronic obstructive pulmonary disease Code(s): J44.9 - CHRONIC OBSTRUCTIVE PULMONARY DISEASE, UNSPECIFIED (6) Dementia Code(s): F03.90 - UNSPECIFIED DEMENTIA WITHOUT BEHAVIORAL DISTURBANCE (7) Diastolic CHF Code(s): I50.30 - UNSPECIFIED DIASTOLIC (CONGESTIVE) HEART FAILURE (8) HTN (hypertension) Code(s): I10 - ESSENTIAL (PRIMARY) HYPERTENSION (9) Osteoporosis Code(s): M81.0 - AGE-RELATED OSTEOPOROSIS W/O CURRENT PATHOLOGICAL FRACTURE (10) PSVT (paroxysmal supraventricular tachycardia) Code(s): I47.1 - SUPRAVENTRICULAR TACHYCARDIA (11) Pneumonia Code(s): J18.9 - PNEUMONIA, UNSPECIFIED ORGANISM Qualifiers: Pneumonia type: aspiration pneumonia Aspiration pneumonia type: unspecified Laterality: bilateral Lung location: unspecified part of lung Qualified Code(s): J69.0 - Pneumonitis due to inhalation of food and vomit (12) Prostate cancer Code(s): C61 - MALIGNANT NEOPLASM OF PROSTATE (13) Pulmonary nodule, left Code(s): R91.1 - SOLITARY PULMONARY NODULE Assessment/Plan Medrol taper BD TX standing and PRN ABX per ID Singulair O2 as needed to maintain saturation VTE prophylaxis No smoking counseled Outpatient follow up of lung nodule (yearly) DR LAO
[2019-04-19] MEDS: INSULIN SLIDING SCALE (NOVOLOG) 1 VIAL SQ SCH ×2 (16:33→23:33)
[2019-04-19] MEDS ORDERED: PT OWN MED DRAWER 7, Y5N ONE (22:28)
[2019-04-19] MEDS: ATORVASTATIN CA 40 MG TABLET (FP) PO SCH (23:24)
[2019-04-19] MEDS: MONTELUKAST NA 10 MG TABLET PO SCH (23:24)
[2019-04-19] MEDS: DOXAZOSIN MESYLATE 2 MG TABLET (FP) PO SCH (23:24)
[2019-04-20] MEDS: INSULIN SLIDING SCALE (NOVOLOG) 1 VIAL SQ SCH ×5 (06:36→22:47)
[2019-04-20] MEDS: ALBUTEROL SO4 2.5/IPRATROPIUM 0.5 INH SOL 3 ML VIAL.NEB. NEB SCH ×4 (07:05→19:59)
--- NOTE | 2019-04-20 08:50 | PN ---
Progress Note, Physician Chief Complaint: in bed NAD less cough; no legs edema - Current Medication List Current Medications: Active Medications Acetaminophen (Tylenol -) 650 mg PO TID PRN PRN Reason: FEVER Albuterol/Ipratropium (Duoneb -) 1 amp NEB RQID [facility] Last Admin: 04/20/19 07:05 Dose: 1 amp Amlodipine Besylate (Norvasc -) 10 mg PO DAILY [facility] Last Admin: 04/19/19 09:25 Dose: 10 mg Aspirin (Asa -) 81 mg PO DAILY [facility] Last Admin: 04/19/19 09:25 Dose: 81 mg Atorvastatin Calcium (Lipitor -) 40 mg PO HS [facility] Last Admin: 04/19/19 23:24 Dose: 40 mg Azithromycin (Zithromax -) 250 mg PO DAILY [facility] Last Admin: 04/19/19 09:25 Dose: 250 mg Budesonide/Formoterol Fumarate (Symbicort 160/4.5mcg -) 1 puff IH BID [facility] Last Admin: 04/19/19 23:26 Dose: 1 puff Carvedilol (Coreg -) 6.25 mg PO BID [facility] Last Admin: 04/19/19 23:24 Dose: 6.25 mg Clopidogrel Bisulfate (Plavix -) 75 mg PO DAILY [facility] Last Admin: 04/19/19 09:25 Dose: 75 mg Doxazosin Mesylate (Cardura -) 2 mg PO HS [facility] Last Admin: 04/19/19 23:24 Dose: 2 mg Famotidine (Pepcid -) 20 mg PO DAILY [facility] Last Admin: 04/19/19 09:29 Dose: 20 mg Furosemide (Lasix Injection -) 40 mg IVPUSH DAILY [facility] Last Admin: 04/19/19 09:25 Dose: 40 mg Guaifenesin (Robitussin -) 10 ml PO Q6H PRN PRN Reason: COUGH Last Admin: 04/17/19 17:59 Dose: 10 ml Ceftriaxone Sodium 1 gm/ (Dextrose) 50 mls @ 100 mls/hr IVPB DAILY [facility]; Protocol Last Admin: 04/19/19 09:24 Dose: 100 mls/hr Insulin Aspart (Novolog Vial Sliding Scale -) 1 vial SQ ACHS [facility]; Protocol Last Admin: 04/20/19 06:47 Dose: Not Given Lisinopril (Prinivil) 5 mg PO DAILY [facility] Last Admin: 04/19/19 09:25 Dose: 5 mg Methylprednisolone Sodium Succinate (Solu-Medrol -) 40 mg IVPUSH BID [facility] Last Admin: 04/19/19 23:25 Dose: 40 mg Montelukast Sodium (Singulair -) 10 mg PO HS [facility] Last Admin: 04/19/19 23:24 Dose: 10 mg - Objective Vital Signs: Vital Signs Temperature 98.1 F 04/20/19 06:00 Pulse Rate 72 04/20/19 06:00 Respiratory Rate 18 04/20/19 06:00 Blood Pressure 159/86 04/20/19 06:00 O2 Sat by Pulse Oximetry (%) 98 04/19/19 21:00 Constitutional: Yes: No Distress Eyes: Yes: Conjunctiva Clear HENT: Yes: Atraumatic Neck: Yes: Supple Cardiovascular: Yes: Regular Rate and Rhythm Respiratory: Yes: CTA Bilaterally Gastrointestinal: Yes: Soft. No: Tenderness Genitourinary: No: Hematuria Musculoskeletal: No: Joint Stiffness, Joint Swelling Extremities: No: Cold, Cool Edema: No Integumentary: No: Pressure Ulcer, Rash, Venous Stasis Changes Neurological: Yes: Alert ...Motor Strength: WNL Psychiatric: Yes: Alert. No: Agitated Labs: CBC, BMP 04/19/19 10:30 04/19/19 10:30 INR, PTT INR 1.08 (0.83-1.09) 04/17/19 08:05 - ....Imaging Other: Report Reviewed Assessment/Plan 84y M history of CHF, prior CVA, HTN, HLD, COPD (on no 02), dementia, prostate CA, h/o PEG / aspiration PNA few years ago - presenting with complaint of confusion/cough for the past four days associated with fever presents with increasing sob and nonproductive cough. CXR c/w RLL PNA PNA,acute on chronic COPD exac - better - taper steroids CHF legs edema improved ID, pulmonary and cardiology f/u; improved with current treatment; IV ATB; IV steroids, nebs; O2; lasix PT rehab d/w pt and staff will call pt's
[2019-04-20] MEDS ORDERED: cefTRIAXone SODIUM 1 GM VIAL ONE (09:27)
[2019-04-20] MEDS ORDERED: DEXTROSE 5%-WATER - 50 ML IVPB ONE (09:28)
[2019-04-20] MEDS: CEFTRIAXONE 1 GM in DEXTROSE 5%-WATER - 50 ML IVPB SCH (09:31)
[2019-04-20] MEDS: CARVEDILOL 6.25 MG TABLET (FP) PO SCH ×2 (09:32→22:34)
[2019-04-20] MEDS: AZITHROMYCIN 250 MG TABLET PO SCH (09:32)
[2019-04-20] MEDS: CLOPIDOGREL BISULFATE 75 MG TABLET (FP) PO SCH (09:32)
[2019-04-20] MEDS: FAMOTIDINE 20 MG TABLET PO SCH (09:32)
[2019-04-20] MEDS: LISINOPRIL 5 MG TABLET (FP) PO SCH (09:32)
[2019-04-20] MEDS: amLODIPine BESYLATE 10 MG TABLET (FP) PO SCH (09:32)
[2019-04-20] MEDS: methylPREDNISolone NA SUCC 40 MG/1 ML VIAL IVPUSH SCH ×2 (09:32→22:34)
[2019-04-20] MEDS: FUROSEMIDE 40 MG/4 ML INJECTABLE VIAL IVPUSH SCH (09:32)
[2019-04-20] MEDS: ASPIRIN 81 MG CHEWABLE TABLETS PO SCH (09:32)
--- NOTE | 2019-04-20 10:27 | PN ---
Progress Note (short form) - Note Progress Note: Resting in NAD on RA. Reports breathing feels better. No acute events overnight. Intake & Output 04/17/19 04/18/19 04/19/19 04/20/19 23:59 23:59 23:59 23:59 Intake Total 200 200 250 Output Total 200 1600 Balance 200 0 -1350 Weight 170 lb Last Vital Signs Temp Pulse Resp BP Pulse Ox 98.1 F 72 18 159/86 98 04/20/19 06:00 04/20/19 06:00 04/20/19 06:00 04/20/19 06:00 04/19/19 21:00 Active Medications Acetaminophen (Tylenol -) 650 mg PO TID PRN PRN Reason: FEVER Albuterol/Ipratropium (Duoneb -) 1 amp NEB RQID [facility] Last Admin: 04/20/19 07:05 Dose: 1 amp Amlodipine Besylate (Norvasc -) 10 mg PO DAILY [facility] Last Admin: 04/20/19 09:32 Dose: 10 mg Aspirin (Asa -) 81 mg PO DAILY [facility] Last Admin: 04/20/19 09:32 Dose: 81 mg Atorvastatin Calcium (Lipitor -) 40 mg PO HS [facility] Last Admin: 04/19/19 23:24 Dose: 40 mg Azithromycin (Zithromax -) 250 mg PO DAILY [facility] Last Admin: 04/20/19 09:32 Dose: 250 mg Budesonide/Formoterol Fumarate (Symbicort 160/4.5mcg -) 1 puff IH BID [facility] Last Admin: 04/19/19 23:26 Dose: 1 puff Carvedilol (Coreg -) 6.25 mg PO BID [facility] Last Admin: 04/20/19 09:32 Dose: 6.25 mg Clopidogrel Bisulfate (Plavix -) 75 mg PO DAILY [facility] Last Admin: 04/20/19 09:32 Dose: 75 mg Doxazosin Mesylate (Cardura -) 2 mg PO HS [facility] Last Admin: 04/19/19 23:24 Dose: 2 mg Famotidine (Pepcid -) 20 mg PO DAILY [facility] Last Admin: 04/20/19 09:32 Dose: 20 mg Furosemide (Lasix Injection -) 40 mg IVPUSH DAILY [facility] Last Admin: 04/20/19 09:32 Dose: 40 mg Guaifenesin (Robitussin -) 10 ml PO Q6H PRN PRN Reason: COUGH Last Admin: 04/17/19 17:59 Dose: 10 ml Ceftriaxone Sodium 1 gm/ (Dextrose) 50 mls @ 100 mls/hr IVPB DAILY [facility]; Protocol Last Admin: 04/20/19 09:31 Dose: 100 mls/hr Insulin Aspart (Novolog Vial Sliding Scale -) 1 vial SQ ACHS [facility]; Protocol Last Admin: 04/20/19 06:47 Dose: Not Given Lisinopril (Prinivil) 5 mg PO DAILY [facility] Last Admin: 04/20/19 09:32 Dose: 5 mg Methylprednisolone Sodium Succinate (Solu-Medrol -) 40 mg IVPUSH BID [facility] Last Admin: 04/20/19 09:32 Dose: 40 mg Montelukast Sodium (Singulair -) 10 mg PO HS [facility] Last Admin: 04/19/19 23:24 Dose: 10 mg Constitutional: Yes: Awake and alert, NAD Eyes: Yes: WNL HENT: Yes: WNL Neck: Yes: WNL Cardiovascular: Yes: Regular Rate and Rhythm, S1, S2 Respiratory: Yes: Diminished, no wheeze Gastrointestinal: Yes: Normal Bowel Sounds, Soft Extremities: Yes: WNL Edema: No Labs: Laboratory Results - last 24 hr 04/19/19 04/19/19 04/19/19 10:30 10:30 16:25 WBC 12.5 H RBC 4.93 Hgb 13.7 Hct 40.8 MCV 82.8 MCH 27.7 MCHC 33.5 RDW 14.4 Plt Count 324 MPV 7.4 L Absolute Neuts (auto) 11.6 H Neutrophils % 92.7 H Neutrophils % (Manual) 86.1 H Band Neutrophils % 6.9 Lymphocytes % 4.0 L D Lymphocytes % (Manual) 6.0 L Monocytes % 3.2 L Monocytes % (Manual) 1 L Eosinophils % 0.0 Eosinophils % (Manual) 0.0 Basophils % 0.1 Basophils % (Manual) 0.0 Myelocytes % (Man) 0 Promyelocytes % (Man) 0 Blast Cells % (Manual) 0 Nucleated RBC % 0 Metamyelocytes 0 Hypochromia 0 Platelet Estimate Normal Polychromasia 0 Poikilocytosis 1+ Anisocytosis 2+ Microcytosis 2+ Macrocytosis 0 Ovalocytes 2+ Sodium 137 Potassium 3.6 Chloride 96 L Carbon Dioxide 34 H Anion Gap 7 L BUN 18.0 Creatinine 0.8 Est GFR (CKD-EPI)AfAm 95.07 Est GFR (CKD-EPI)NonAf 82.03 POC Glucometer 125 Random Glucose 248 H Calcium 9.3 04/19/19 04/20/19 23:32 06:35 WBC RBC Hgb Hct MCV MCH MCHC RDW Plt Count MPV Absolute Neuts (auto) Neutrophils % Neutrophils % (Manual) Band Neutrophils % Lymphocytes % Lymphocytes % (Manual) Monocytes % Monocytes % (Manual) Eosinophils % Eosinophils % (Manual) Basophils % Basophils % (Manual) Myelocytes % (Man) Promyelocytes % (Man) Blast Cells % (Manual) Nucleated RBC % Metamyelocytes Hypochromia Platelet Estimate Polychromasia Poikilocytosis Anisocytosis Microcytosis Macrocytosis Ovalocytes Sodium Potassium Chloride Carbon Dioxide Anion Gap BUN Creatinine Est GFR (CKD-EPI)AfAm Est GFR (CKD-EPI)NonAf POC Glucometer 152 159 Random Glucose Calcium Assessment/Plan Problem List - Problems (1) COPD exacerbation Code(s): J44.1 - CHRONIC OBSTRUCTIVE PULMONARY DISEASE W (ACUTE) EXACERBATION (2) Abdominal aortic aneurysm (AAA) Code(s): I71.4 - ABDOMINAL AORTIC ANEURYSM, WITHOUT RUPTURE (3) Acute exacerbation of chronic obstructive pulmonary disease (COPD) Code(s): J44.1 - CHRONIC OBSTRUCTIVE PULMONARY DISEASE W (ACUTE) EXACERBATION (4) CHF (congestive heart failure) Code(s): I50.9 - HEART FAILURE, UNSPECIFIED Qualifiers: Heart failure type: unspecified Heart failure chronicity: chronic Qualified Code(s): I50.9 - Heart failure, unspecified (5) Chronic obstructive pulmonary disease Code(s): J44.9 - CHRONIC OBSTRUCTIVE PULMONARY DISEASE, UNSPECIFIED (6) Dementia Code(s): F03.90 - UNSPECIFIED DEMENTIA WITHOUT BEHAVIORAL DISTURBANCE (7) Diastolic CHF Code(s): I50.30 - UNSPECIFIED DIASTOLIC (CONGESTIVE) HEART FAILURE (8) HTN (hypertension) Code(s): I10 - ESSENTIAL (PRIMARY) HYPERTENSION (9) Osteoporosis Code(s): M81.0 - AGE-RELATED OSTEOPOROSIS W/O CURRENT PATHOLOGICAL FRACTURE (10) PSVT (paroxysmal supraventricular tachycardia) Code(s): I47.1 - SUPRAVENTRICULAR TACHYCARDIA (11) Pneumonia Code(s): J18.9 - PNEUMONIA, UNSPECIFIED ORGANISM Qualifiers: Pneumonia type: aspiration pneumonia Aspiration pneumonia type: unspecified Laterality: bilateral Lung location: unspecified part of lung Qualified Code(s): J69.0 - Pneumonitis due to inhalation of food and vomit (12) Prostate cancer Code(s): C61 - MALIGNANT NEOPLASM OF PROSTATE (13) Pulmonary nodule, left Code(s): R91.1 - SOLITARY PULMONARY NODULE Assessment/Plan Can likely change to Prednisone tomorrow BD TX standing and PRN ABX per ID Singulair O2 as needed to maintain saturation VTE prophylaxis No smoking counseled Outpatient follow up of lung nodule (yearly) Dr Dominguez Problem List - Problems (1) COPD exacerbation Code(s): J44.1 - CHRONIC OBSTRUCTIVE PULMONARY DISEASE W (ACUTE) EXACERBATION (2) Abdominal aortic aneurysm (AAA) Code(s): I71.4 - ABDOMINAL AORTIC ANEURYSM, WITHOUT RUPTURE (3) Acute exacerbation of chronic obstructive pulmonary disease (COPD) Code(s): J44.1 - CHRONIC OBSTRUCTIVE PULMONARY DISEASE W (ACUTE) EXACERBATION (4) CHF (congestive heart failure) Code(s): I50.9 - HEART FAILURE, UNSPECIFIED Qualifiers: Heart failure type: unspecified Heart failure chronicity: chronic Qualified Code(s): I50.9 - Heart failure, unspecified (5) Chronic obstructive pulmonary disease Code(s): J44.9 - CHRONIC OBSTRUCTIVE PULMONARY DISEASE, UNSPECIFIED (6) Dementia Code(s): F03.90 - UNSPECIFIED DEMENTIA WITHOUT BEHAVIORAL DISTURBANCE (7) Diastolic CHF Code(s): I50.30 - UNSPECIFIED DIASTOLIC (CONGESTIVE) HEART FAILURE (8) HTN (hypertension) Code(s): I10 - ESSENTIAL (PRIMARY) HYPERTENSION (9) Osteoporosis Code(s): M81.0 - AGE-RELATED OSTEOPOROSIS W/O CURRENT PATHOLOGICAL FRACTURE (10) PSVT (paroxysmal supraventricular tachycardia) Code(s): I47.1 - SUPRAVENTRICULAR TACHYCARDIA (11) Pneumonia Code(s): J18.9 - PNEUMONIA, UNSPECIFIED ORGANISM Qualifiers: Pneumonia type: aspiration pneumonia Aspiration pneumonia type: unspecified Laterality: bilateral Lung location: unspecified part of lung Qualified Code(s): J69.0 - Pneumonitis due to inhalation of food and vomit (12) Prostate cancer Code(s): C61 - MALIGNANT NEOPLASM OF PROSTATE (13) Pulmonary nodule, left Code(s): R91.1 - SOLITARY PULMONARY NODULE
[2019-04-20] MEDS: BUDESONIDE/FORMETEROL FUMARATE 160/4.5 mcg INHALER IH SCH ×2 (11:01→22:36)
[2019-04-20] MEDS ORDERED: PT OWN MED DRAWER 7, Y5N ONE (22:33)
[2019-04-20] MEDS: ATORVASTATIN CA 40 MG TABLET (FP) PO SCH (22:34)
[2019-04-20] MEDS: DOXAZOSIN MESYLATE 2 MG TABLET (FP) PO SCH (22:34)
[2019-04-20] MEDS: MONTELUKAST NA 10 MG TABLET PO SCH (22:34)
[2019-04-21] MEDS: LATANOPROST 0.005% OPHTH SOLN 2.5ML BOTTLE OU SCH ×2 (01:17→22:35)
[2019-04-21] MEDS: ARTIFICIAL TEARS (POLYVINYL ALCOHOL) OPTH DROPS OU SCH ×5 (01:18→22:34)
[2019-04-21] MEDS: INSULIN SLIDING SCALE (NOVOLOG) 1 VIAL SQ SCH ×4 (06:17→22:47)
--- NOTE | 2019-04-21 06:19 | PN ---
Progress Note, Physician Chief Complaint: less SOB less cough consult appreciated - Current Medication List Current Medications: Active Medications Acetaminophen (Tylenol -) 650 mg PO TID PRN PRN Reason: FEVER Albuterol/Ipratropium (Duoneb -) 1 amp NEB RQID [facility] Last Admin: 04/20/19 19:59 Dose: 1 amp Amlodipine Besylate (Norvasc -) 10 mg PO DAILY [facility] Last Admin: 04/20/19 09:32 Dose: 10 mg Artificial Tears (Artificial Tears) 1 drop OU QID [facility] Aspirin (Asa -) 81 mg PO DAILY [facility] Last Admin: 04/20/19 09:32 Dose: 81 mg Atorvastatin Calcium (Lipitor -) 40 mg PO HS [facility] Last Admin: 04/20/19 22:34 Dose: 40 mg Azithromycin (Zithromax -) 250 mg PO DAILY [facility] Last Admin: 04/20/19 09:32 Dose: 250 mg Budesonide/Formoterol Fumarate (Symbicort 160/4.5mcg -) 1 puff IH BID [facility] Last Admin: 04/20/19 22:36 Dose: 1 puff Carvedilol (Coreg -) 6.25 mg PO BID [facility] Last Admin: 04/20/19 22:34 Dose: 6.25 mg Clopidogrel Bisulfate (Plavix -) 75 mg PO DAILY [facility] Last Admin: 04/20/19 09:32 Dose: 75 mg Doxazosin Mesylate (Cardura -) 2 mg PO HS [facility] Last Admin: 04/20/19 22:34 Dose: 2 mg Famotidine (Pepcid -) 20 mg PO DAILY [facility] Last Admin: 04/20/19 09:32 Dose: 20 mg Furosemide (Lasix Injection -) 40 mg IVPUSH DAILY [facility] Last Admin: 04/20/19 09:32 Dose: 40 mg Guaifenesin (Robitussin -) 10 ml PO Q6H PRN PRN Reason: COUGH Last Admin: 04/17/19 17:59 Dose: 10 ml Ceftriaxone Sodium 1 gm/ (Dextrose) 50 mls @ 100 mls/hr IVPB DAILY [facility]; Protocol Last Admin: 04/20/19 09:31 Dose: 100 mls/hr Insulin Aspart (Novolog Vial Sliding Scale -) 1 vial SQ ACHS [facility]; Protocol Last Admin: 04/20/19 22:47 Dose: 4 units Latanoprost (Xalatan 0.005% Eye Drops -) 1 drop OU HS [facility] Lisinopril (Prinivil) 5 mg PO DAILY [facility] Last Admin: 04/20/19 09:32 Dose: 5 mg Methylprednisolone Sodium Succinate (Solu-Medrol -) 40 mg IVPUSH BID [facility] Last Admin: 04/20/19 22:34 Dose: 40 mg Montelukast Sodium (Singulair -) 10 mg PO HS [facility] Last Admin: 04/20/19 22:34 Dose: 10 mg - Objective Vital Signs: Vital Signs Temperature 97.9 F 04/21/19 05:57 Pulse Rate 74 04/21/19 05:57 Respiratory Rate 18 04/21/19 05:57 Blood Pressure 146/83 04/21/19 05:57 O2 Sat by Pulse Oximetry (%) 96 04/20/19 21:00 Constitutional: Yes: No Distress, Calm Eyes: Yes: Conjunctiva Clear HENT: Yes: Atraumatic Neck: Yes: Supple Cardiovascular: Yes: Regular Rate and Rhythm Respiratory: Yes: Diminished Gastrointestinal: Yes: Soft. No: Tenderness Genitourinary: No: Hematuria Musculoskeletal: No: Joint Stiffness, Joint Swelling Extremities: No: Cold, Cool Edema: No Integumentary: No: Rash, Venous Stasis Changes Neurological: Yes: Alert ...Motor Strength: WNL Psychiatric: Yes: Alert. No: Agitated Labs: CBC, BMP 04/19/19 10:30 04/19/19 10:30 INR, PTT INR 1.08 (0.83-1.09) 04/17/19 08:05 - ....Imaging Other: Report Reviewed Assessment/Plan 84y M history of CHF, prior CVA, HTN, HLD, COPD (on no 02), dementia, prostate CA, h/o PEG / aspiration PNA few years ago - presenting with complaint of confusion/cough for the past four days associated with fever presents with increasing sob and nonproductive cough. CXR c/w RLL PNA PNA,acute on chronic COPD exac - better - taper steroids CHF legs edema improved po lasix and legs elevation, TEDs to legs also (d/w pt to use them home too) ID, pulmonary and cardiology f/u; improved with current treatment; nebs; O2; lasix PT rehab d/w pt and staff d/w pt's
[2019-04-21] MEDS: ALBUTEROL SO4 2.5/IPRATROPIUM 0.5 INH SOL 3 ML VIAL.NEB. NEB SCH ×4 (07:36→20:45)
[2019-04-21] MEDS ORDERED: cefTRIAXone SODIUM 1 GM VIAL ONE (08:48)
[2019-04-21] MEDS ORDERED: DEXTROSE 5%-WATER - 50 ML IVPB ONE (08:48)
[2019-04-21] MEDS: FAMOTIDINE 20 MG TABLET PO SCH (09:03)
[2019-04-21] MEDS: amLODIPine BESYLATE 10 MG TABLET (FP) PO SCH (09:03)
[2019-04-21] MEDS: FUROSEMIDE 40 MG/4 ML INJECTABLE VIAL IVPUSH SCH (09:03)
[2019-04-21] MEDS: LISINOPRIL 5 MG TABLET (FP) PO SCH (09:03)
[2019-04-21] MEDS: CARVEDILOL 6.25 MG TABLET (FP) PO SCH ×2 (09:03→22:31)
[2019-04-21] MEDS: CLOPIDOGREL BISULFATE 75 MG TABLET (FP) PO SCH (09:03)
[2019-04-21] MEDS: ASPIRIN 81 MG CHEWABLE TABLETS PO SCH (09:03)
[2019-04-21] MEDS: CEFTRIAXONE 1 GM in DEXTROSE 5%-WATER - 50 ML IVPB SCH (09:05)
[2019-04-21] MEDS: BUDESONIDE/FORMETEROL FUMARATE 160/4.5 mcg INHALER IH SCH ×2 (09:05→22:35)
[2019-04-21] MEDS: methylPREDNISolone NA SUCC 40 MG/1 ML VIAL IVPUSH SCH ×2 (09:05→22:31)
--- NOTE | 2019-04-21 13:01 | PN ---
Progress Note, Physician History of Present Illness: pulmonary alert,feeling better,less dyspneic - Current Medication List Current Medications: Active Medications Acetaminophen (Tylenol -) 650 mg PO TID PRN PRN Reason: FEVER Albuterol/Ipratropium (Duoneb -) 1 amp NEB RQID [facility] Last Admin: 04/21/19 07:36 Dose: 1 amp Amlodipine Besylate (Norvasc -) 10 mg PO DAILY [facility] Last Admin: 04/21/19 09:03 Dose: 10 mg Artificial Tears (Artificial Tears) 1 drop OU QID [facility] Last Admin: 04/21/19 09:04 Dose: 1 drop Aspirin (Asa -) 81 mg PO DAILY [facility] Last Admin: 04/21/19 09:03 Dose: 81 mg Atorvastatin Calcium (Lipitor -) 40 mg PO HS [facility] Last Admin: 04/20/19 22:34 Dose: 40 mg Budesonide/Formoterol Fumarate (Symbicort 160/4.5mcg -) 1 puff IH BID [facility] Last Admin: 04/21/19 09:05 Dose: 1 puff Carvedilol (Coreg -) 6.25 mg PO BID [facility] Last Admin: 04/21/19 09:03 Dose: 6.25 mg Clopidogrel Bisulfate (Plavix -) 75 mg PO DAILY [facility] Last Admin: 04/21/19 09:03 Dose: 75 mg Doxazosin Mesylate (Cardura -) 2 mg PO HS [facility] Last Admin: 04/20/19 22:34 Dose: 2 mg Famotidine (Pepcid -) 20 mg PO DAILY [facility] Last Admin: 04/21/19 09:03 Dose: 20 mg Furosemide (Lasix Injection -) 40 mg IVPUSH DAILY [facility] Last Admin: 04/21/19 09:03 Dose: 40 mg Guaifenesin (Robitussin -) 10 ml PO Q6H PRN PRN Reason: COUGH Last Admin: 04/17/19 17:59 Dose: 10 ml Ceftriaxone Sodium 1 gm/ (Dextrose) 50 mls @ 100 mls/hr IVPB DAILY [facility]; Protocol Last Admin: 04/21/19 09:05 Dose: 100 mls/hr Insulin Aspart (Novolog Vial Sliding Scale -) 1 vial SQ ACHS [facility]; Protocol Last Admin: 04/21/19 11:48 Dose: 2 units Latanoprost (Xalatan 0.005% Eye Drops -) 1 drop OU HS [facility] Last Admin: 04/21/19 01:17 Dose: 1 drop Lisinopril (Prinivil) 5 mg PO DAILY [facility] Last Admin: 04/21/19 09:03 Dose: 5 mg Methylprednisolone Sodium Succinate (Solu-Medrol -) 40 mg IVPUSH BID [facility] Last Admin: 04/21/19 09:05 Dose: 40 mg Montelukast Sodium (Singulair -) 10 mg PO [facility] Last Admin: 04/20/19 22:34 Dose: 10 mg - Objective Vital Signs: Vital Signs Temperature 97.6 F 04/21/19 08:57 Pulse Rate 84 04/21/19 08:57 Respiratory Rate 18 04/21/19 09:00 Blood Pressure 158/73 04/21/19 08:57 O2 Sat by Pulse Oximetry (%) 99 04/21/19 09:00 Constitutional: Yes: Well Nourished, Calm Eyes: Yes: WNL HENT: Yes: WNL Neck: Yes: WNL Cardiovascular: Yes: Regular Rate and Rhythm, S1, S2 Respiratory: Yes: Diminished Gastrointestinal: Yes: Normal Bowel Sounds, Soft Extremities: Yes: WNL Edema: No Labs: CBC, BMP 04/19/19 10:30 04/19/19 10:30 INR, PTT INR 1.08 (0.83-1.09) 04/17/19 08:05 Assessment/Plan Problem List - Problems (1) COPD exacerbation Code(s): J44.1 - CHRONIC OBSTRUCTIVE PULMONARY DISEASE W (ACUTE) EXACERBATION (2) Abdominal aortic aneurysm (AAA) Code(s): I71.4 - ABDOMINAL AORTIC ANEURYSM, WITHOUT RUPTURE (3) Acute exacerbation of chronic obstructive pulmonary disease (COPD) Code(s): J44.1 - CHRONIC OBSTRUCTIVE PULMONARY DISEASE W (ACUTE) EXACERBATION (4) CHF (congestive heart failure) Code(s): I50.9 - HEART FAILURE, UNSPECIFIED Qualifiers: Heart failure type: unspecified Heart failure chronicity: chronic Qualified Code(s): I50.9 - Heart failure, unspecified (5) Chronic obstructive pulmonary disease Code(s): J44.9 - CHRONIC OBSTRUCTIVE PULMONARY DISEASE, UNSPECIFIED (6) Dementia Code(s): F03.90 - UNSPECIFIED DEMENTIA WITHOUT BEHAVIORAL DISTURBANCE (7) Diastolic CHF Code(s): I50.30 - UNSPECIFIED DIASTOLIC (CONGESTIVE) HEART FAILURE (8) HTN (hypertension) Code(s): I10 - ESSENTIAL (PRIMARY) HYPERTENSION (9) Osteoporosis Code(s): M81.0 - AGE-RELATED OSTEOPOROSIS W/O CURRENT PATHOLOGICAL FRACTURE (10) PSVT (paroxysmal supraventricular tachycardia) Code(s): I47.1 - SUPRAVENTRICULAR TACHYCARDIA (11) Pneumonia Code(s): J18.9 - PNEUMONIA, UNSPECIFIED ORGANISM Qualifiers: Pneumonia type: aspiration pneumonia Aspiration pneumonia type: unspecified Laterality: bilateral Lung location: unspecified part of lung Qualified Code(s): J69.0 - Pneumonitis due to inhalation of food and vomit (12) Prostate cancer Code(s): C61 - MALIGNANT NEOPLASM OF PROSTATE (13) Pulmonary nodule, left Code(s): R91.1 - SOLITARY PULMONARY NODULE Assessment/Plan prednisone 40 g daily in am BD TX standing and PRN ABX per ID Singulair O2 as needed to maintain saturation VTE prophylaxis No smoking counseled Outpatient follow up of lung nodule (yearly) DR LAO
[2019-04-21] MEDS ORDERED: AZITHROMYCIN 250 MG TABLET PO ONE (13:35)
--- NOTE | 2019-04-21 13:42 | PN ---
Progress Note (short form) - Note Progress Note: much improved feels well Vital Signs Period Temp Pulse Resp BP Sys/Hernandez Pulse Ox Last 24 Hr 97.5 F-98.2 F 74-92 18-20 143-158/73-83 96-99 cor-rrr lungs decreased bs at bases abd soft, nt ext no edema Current Medications Acetaminophen (Tylenol -) 650 mg PO TID PRN PRN Reason: FEVER Albuterol/Ipratropium (Duoneb -) 1 amp NEB RQID [facility] Last Admin: 04/21/19 07:36 Dose: 1 amp Amlodipine Besylate (Norvasc -) 10 mg PO DAILY [facility] Last Admin: 04/21/19 09:03 Dose: 10 mg Artificial Tears (Artificial Tears) 1 drop OU QID [facility] Last Admin: 04/21/19 09:04 Dose: 1 drop Aspirin (Asa -) 81 mg PO DAILY [facility] Last Admin: 04/21/19 09:03 Dose: 81 mg Atorvastatin Calcium (Lipitor -) 40 mg PO HS [facility] Last Admin: 04/20/19 22:34 Dose: 40 mg Budesonide/Formoterol Fumarate (Symbicort 160/4.5mcg -) 1 puff IH BID [facility] Last Admin: 04/21/19 09:05 Dose: 1 puff Carvedilol (Coreg -) 6.25 mg PO BID [facility] Last Admin: 04/21/19 09:03 Dose: 6.25 mg Clopidogrel Bisulfate (Plavix -) 75 mg PO DAILY [facility] Last Admin: 04/21/19 09:03 Dose: 75 mg Doxazosin Mesylate (Cardura -) 2 mg PO HS [facility] Last Admin: 04/20/19 22:34 Dose: 2 mg Famotidine (Pepcid -) 20 mg PO DAILY [facility] Last Admin: 04/21/19 09:03 Dose: 20 mg Furosemide (Lasix Injection -) 40 mg IVPUSH DAILY [facility] Last Admin: 04/21/19 09:03 Dose: 40 mg Guaifenesin (Robitussin -) 10 ml PO Q6H PRN PRN Reason: COUGH Last Admin: 04/17/19 17:59 Dose: 10 ml Ceftriaxone Sodium 1 gm/ (Dextrose) 50 mls @ 100 mls/hr IVPB DAILY [facility]; Protocol Last Admin: 04/21/19 09:05 Dose: 100 mls/hr Insulin Aspart (Novolog Vial Sliding Scale -) 1 vial SQ ACHS [facility]; Protocol Last Admin: 04/21/19 11:48 Dose: 2 units Latanoprost (Xalatan 0.005% Eye Drops -) 1 drop OU HS [facility] Last Admin: 04/21/19 01:17 Dose: 1 drop Lisinopril (Prinivil) 5 mg PO DAILY [facility] Last Admin: 04/21/19 09:03 Dose: 5 mg Methylprednisolone Sodium Succinate (Solu-Medrol -) 40 mg IVPUSH BID [facility] Stop: 04/21/19 23:00 Last Admin: 04/21/19 09:05 Dose: 40 mg Montelukast Sodium (Singulair -) 10 mg PO [facility] Last Admin: 04/20/19 22:34 Dose: 10 mg Prednisone (Deltasone -) 40 mg PO DAILY [facility] a/p CAP- RLL- improving rocephin/zithromax day #5 copd exacerbation- improving switched to po prednisone for am last dose zithromax today can switch to ceftin for another 48 hours please call back if needed Problem List - Problems (1) Pneumonia Code(s): J18.9 - PNEUMONIA, UNSPECIFIED ORGANISM Qualifiers: Pneumonia type: aspiration pneumonia Aspiration pneumonia type: unspecified Laterality: bilateral Lung location: unspecified part of lung Qualified Code(s): J69.0 - Pneumonitis due to inhalation of food and vomit (2) Acute CHF (congestive heart failure) Code(s): I50.9 - HEART FAILURE, UNSPECIFIED (3) Acute exacerbation of chronic obstructive pulmonary disease (COPD) Code(s): J44.1 - CHRONIC OBSTRUCTIVE PULMONARY DISEASE W (ACUTE) EXACERBATION (4) Abdominal aortic aneurysm (AAA) Code(s): I71.4 - ABDOMINAL AORTIC ANEURYSM, WITHOUT RUPTURE
--- NOTE | 2019-04-21 16:39 | PN ---
Progress Note, Physician - Current Medication List Current Medications: Active Medications Acetaminophen (Tylenol -) 650 mg PO TID PRN PRN Reason: FEVER Albuterol/Ipratropium (Duoneb -) 1 amp NEB RQID [facility] Last Admin: 04/21/19 15:27 Dose: 1 amp Amlodipine Besylate (Norvasc -) 10 mg PO DAILY [facility] Last Admin: 04/21/19 09:03 Dose: 10 mg Artificial Tears (Artificial Tears) 1 drop OU QID [facility] Last Admin: 04/21/19 14:05 Dose: 1 drop Aspirin (Asa -) 81 mg PO DAILY [facility] Last Admin: 04/21/19 09:03 Dose: 81 mg Atorvastatin Calcium (Lipitor -) 40 mg PO HS [facility] Last Admin: 04/20/19 22:34 Dose: 40 mg Budesonide/Formoterol Fumarate (Symbicort 160/4.5mcg -) 1 puff IH BID [facility] Last Admin: 04/21/19 09:05 Dose: 1 puff Carvedilol (Coreg -) 6.25 mg PO BID [facility] Last Admin: 04/21/19 09:03 Dose: 6.25 mg Cefuroxime Axetil (Ceftin -) 500 mg PO BID [facility] Clopidogrel Bisulfate (Plavix -) 75 mg PO DAILY [facility] Last Admin: 04/21/19 09:03 Dose: 75 mg Doxazosin Mesylate (Cardura -) 2 mg PO HS [facility] Last Admin: 04/20/19 22:34 Dose: 2 mg Famotidine (Pepcid -) 20 mg PO DAILY [facility] Last Admin: 04/21/19 09:03 Dose: 20 mg Furosemide (Lasix Injection -) 40 mg IVPUSH DAILY [facility] Last Admin: 04/21/19 09:03 Dose: 40 mg Guaifenesin (Robitussin -) 10 ml PO Q6H PRN PRN Reason: COUGH Last Admin: 04/17/19 17:59 Dose: 10 ml Insulin Aspart (Novolog Vial Sliding Scale -) 1 vial SQ [facility]; Protocol Last Admin: 04/21/19 11:48 Dose: 2 units Latanoprost (Xalatan 0.005% Eye Drops -) 1 drop OU HS [facility] Last Admin: 04/21/19 01:17 Dose: 1 drop Lisinopril (Prinivil) 5 mg PO DAILY [facility] Last Admin: 04/21/19 09:03 Dose: 5 mg Methylprednisolone Sodium Succinate (Solu-Medrol -) 40 mg IVPUSH BID [facility] Stop: 04/21/19 23:00 Last Admin: 04/21/19 09:05 Dose: 40 mg Montelukast Sodium (Singulair -) 10 mg PO HS [facility] Last Admin: 04/20/19 22:34 Dose: 10 mg Prednisone (Deltasone -) 40 mg PO DAILY [facility] - Objective Vital Signs: Vital Signs Temperature 98.0 F 04/21/19 15:12 Pulse Rate 81 04/21/19 15:12 Respiratory Rate 18 04/21/19 15:12 Blood Pressure 132/82 04/21/19 15:12 O2 Sat by Pulse Oximetry (%) 99 04/21/19 09:00 Labs: CBC, BMP 04/19/19 10:30 04/19/19 10:30 INR, PTT INR 1.08 (0.83-1.09) 04/17/19 08:05 Problem List - Problems (1) Acute on chronic diastolic (congestive) heart failure Code(s): I50.33 - ACUTE ON CHRONIC DIASTOLIC (CONGESTIVE) HEART FAILURE (2) Acute bronchitis Code(s): J20.9 - ACUTE BRONCHITIS, UNSPECIFIED (3) Acute exacerbation of chronic obstructive pulmonary disease (COPD) Code(s): J44.1 - CHRONIC OBSTRUCTIVE PULMONARY DISEASE W (ACUTE) EXACERBATION (4) Dementia Code(s): F03.90 - UNSPECIFIED DEMENTIA WITHOUT BEHAVIORAL DISTURBANCE (5) Weakness Code(s): R53.1 - WEAKNESS (6) HTN (hypertension) Code(s): I10 - ESSENTIAL (PRIMARY) HYPERTENSION
[2019-04-21] MEDS ORDERED: LORazepam 2 MG/ML SDV VIAL IM ONE (21:45)
[2019-04-21] MEDS: MONTELUKAST NA 10 MG TABLET PO SCH (22:31)
[2019-04-21] MEDS: CEFUROXIME AXETIL 500 MG TABLET PO SCH (22:31)
[2019-04-21] MEDS: ATORVASTATIN CA 40 MG TABLET (FP) PO SCH (22:31)
[2019-04-21] MEDS: DOXAZOSIN MESYLATE 2 MG TABLET (FP) PO SCH (22:31)
[2019-04-22] MEDS: INSULIN SLIDING SCALE (NOVOLOG) 1 VIAL SQ SCH ×4 (07:08→21:55)
[2019-04-22 07:13] LABS: BASO % 0.1 % (0-2.0); HEMATOCRIT 43.9 % (35.4-49); HEMOGLOBIN 14.5 GM/dL (11.7-16.9); LYMPH % 6.8 % (8-40); MCH 27.2 pg (25.7-33.7); MEAN CELL VOLUME 82.4 fl (80-96); MEAN PLT VOLUME 7.1 fl (7.5-11.1); MONO % 4.5 % (3.8-10.2); NEUT % 88.6 % (42.8-82.8); PLATELET COUNT 342 K/MM3 (134-434); RBC 5.33 M/mm3 (4.00-5.60); RDW 14.3 % (11.9-15.9); WHITE BLOOD COUNT 11.7 K/mm3 (4.0-10.0)
[2019-04-22 07:25] LABS: ALBUMIN 2.8 g/dl (3.4-5.0); BILIRUBIN,TOTAL 1.1 mg/dL (0.2-1); BLOOD UREA NITROGEN 22.7 mg/dL (7-18); CALCIUM 9.3 mg/dL (8.5-10.1); CREATININE 0.8 mg/dL (0.55-1.3)
[2019-04-22] MEDS: ALBUTEROL SO4 2.5/IPRATROPIUM 0.5 INH SOL 3 ML VIAL.NEB. NEB SCH ×4 (08:11→20:10)
[2019-04-22 08:31] LABS: MAGNESIUM 2.4 mg/dL (1.8-2.4)
--- NOTE | 2019-04-22 09:25 | PN ---
Progress Note, Physician Chief Complaint: in bed events noted was confused last night; head CT ordered also chest CT ordered for PNA and h/o severe COPD labs noted high LFTs; h/o prostate CA - will order CT or US - Current Medication List Current Medications: Active Medications Acetaminophen (Tylenol -) 650 mg PO TID PRN PRN Reason: FEVER Albuterol/Ipratropium (Duoneb -) 1 amp NEB RQID [facility] Last Admin: 04/22/19 08:11 Dose: Not Given Amlodipine Besylate (Norvasc -) 10 mg PO DAILY [facility] Last Admin: 04/21/19 09:03 Dose: 10 mg Artificial Tears (Artificial Tears) 1 drop OU QID [facility] Last Admin: 04/21/19 22:34 Dose: 1 drop Aspirin (Asa -) 81 mg PO DAILY [facility] Last Admin: 04/21/19 09:03 Dose: 81 mg Atorvastatin Calcium (Lipitor -) 40 mg PO HS [facility] Last Admin: 04/21/19 22:31 Dose: 40 mg Budesonide/Formoterol Fumarate (Symbicort 160/4.5mcg -) 1 puff IH BID [facility] Last Admin: 04/21/19 22:35 Dose: 1 puff Carvedilol (Coreg -) 6.25 mg PO BID [facility] Last Admin: 04/21/19 22:31 Dose: 6.25 mg Cefuroxime Axetil (Ceftin -) 500 mg PO BID [facility] Last Admin: 04/21/19 22:31 Dose: 500 mg Clopidogrel Bisulfate (Plavix -) 75 mg PO DAILY [facility] Last Admin: 04/21/19 09:03 Dose: 75 mg Doxazosin Mesylate (Cardura -) 2 mg PO HS [facility] Last Admin: 04/21/19 22:31 Dose: 2 mg Famotidine (Pepcid -) 20 mg PO DAILY [facility] Last Admin: 04/21/19 09:03 Dose: 20 mg Furosemide (Lasix Injection -) 40 mg IVPUSH DAILY [facility] Last Admin: 04/21/19 09:03 Dose: 40 mg Guaifenesin (Robitussin -) 10 ml PO Q6H PRN PRN Reason: COUGH Last Admin: 04/17/19 17:59 Dose: 10 ml Insulin Aspart (Novolog Vial Sliding Scale -) 1 vial SQ [facility]; Protocol Last Admin: 04/22/19 07:08 Dose: 2 units Latanoprost (Xalatan 0.005% Eye Drops -) 1 drop OU HS [facility] Last Admin: 04/21/19 22:35 Dose: 1 drop Lisinopril (Prinivil) 5 mg PO DAILY [facility] Last Admin: 04/21/19 09:03 Dose: 5 mg Montelukast Sodium (Singulair -) 10 mg PO HS [facility] Last Admin: 04/21/19 22:31 Dose: 10 mg Prednisone (Deltasone -) 40 mg PO DAILY [facility] - Objective Vital Signs: Vital Signs Temperature 98.4 F 04/22/19 06:00 Pulse Rate 88 04/22/19 06:00 Respiratory Rate 18 04/22/19 06:00 Blood Pressure 145/74 04/22/19 06:00 O2 Sat by Pulse Oximetry (%) 95 04/21/19 21:00 Constitutional: Yes: No Distress, Calm Eyes: Yes: Conjunctiva Clear HENT: Yes: Atraumatic Neck: Yes: Supple Cardiovascular: Yes: Regular Rate and Rhythm Respiratory: Yes: Diminished Gastrointestinal: Yes: Soft. No: Tenderness Genitourinary: No: Hematuria Musculoskeletal: No: Joint Stiffness, Joint Swelling Extremities: No: Cold, Cool Edema: No Integumentary: No: Rash, Venous Stasis Changes Neurological: Yes: Alert ...Motor Strength: WNL Psychiatric: Yes: Alert. No: Agitated, Suicidal Ideation Labs: CBC, BMP 04/22/19 06:33 04/22/19 06:33 INR, PTT INR 1.08 (0.83-1.09) 04/17/19 08:05 - ....Imaging Other: Report Reviewed Assessment/Plan 84y M history of CHF, prior CVA, HTN, HLD, COPD (on no 02), dementia, prostate CA, h/o PEG / aspiration PNA few years ago - presenting with complaint of confusion/cough for the past four days associated with fever presents with increasing sob and nonproductive cough. CXR c/w RLL PNA; chest CT; nebs; O2 PNA,acute on chronic COPD exac - taper steroids confusion: head CT, neuro eval CHF legs edema improved po lasix and legs elevation, TEDs to legs also (d/w pt to use them home too) ID, pulmonary and cardiology f/u; improved with current treatment; high LFts h/o prostate CA check abdomen pelvic CT PT rehab d/w pt and staff d/w pt's
[2019-04-22] MEDS: ASPIRIN 81 MG CHEWABLE TABLETS PO SCH (09:48)
[2019-04-22] MEDS: CEFUROXIME AXETIL 500 MG TABLET PO SCH ×2 (09:48→21:56)
[2019-04-22] MEDS: CARVEDILOL 6.25 MG TABLET (FP) PO SCH ×2 (09:51→21:57)
[2019-04-22] MEDS: LISINOPRIL 5 MG TABLET (FP) PO SCH (09:51)
[2019-04-22] MEDS: amLODIPine BESYLATE 10 MG TABLET (FP) PO SCH (09:52)
[2019-04-22] MEDS: CLOPIDOGREL BISULFATE 75 MG TABLET (FP) PO SCH (09:52)
[2019-04-22] MEDS: FAMOTIDINE 20 MG TABLET PO SCH (09:52)
[2019-04-22] MEDS: FUROSEMIDE 40 MG/4 ML INJECTABLE VIAL IVPUSH SCH (09:55)
[2019-04-22] MEDS: ARTIFICIAL TEARS (POLYVINYL ALCOHOL) OPTH DROPS OU SCH ×4 (09:56→21:58)
[2019-04-22] MEDS: BUDESONIDE/FORMETEROL FUMARATE 160/4.5 mcg INHALER IH SCH ×2 (09:57→21:57)
[2019-04-22] MEDS ORDERED: predniSONE 20 MG TABLET (UD) PO SCH (10:00)
--- NOTE | 2019-04-22 10:16 | CONSULT ---
Consult - text type - Consultation Consultation Note: Neurology - Primary Care Physician PCP: Gini Delcid S - Admission Chief Complaint: cough SOB fever History of Present Illness: 84y M history of CHF, prior CVA, HTN, HLD, COPD (on room air), dementia, prostate CA, h/o PEG /aspiration PNA few years ago, presented with complaint of confusion/cough for the past week prior to admission, associated with fever, and increasing sob with nonproductive cough. Pt denied any chest pain, n/v, diaphoreis, abd pain, back pain; has chronic both legs swelling (always has baseline swelling). no sick contacts or recent hospitalizations. his called Dr. Delcid few days ago prior to admission and Heriberto ordered po but he did not take it; instead she brought him to ER. Patient labs indicate HA1C 7.2 and elevated BNP. Patient labs currently indicate elevated BUN 22.7 and LFTS slightly elevated, trending up. Consulted for evaluation of mental status. Was able to telll me he's at [place]. This AM also knows month but had trouble with year, said 2004 at first. Does know name of President though initially response was of negative comments. Head CT completed, results pending, chest CT orderd, results pending, Ultrasound of pelvis ordered, not yet completed. ID note reviewed, received ABX for presumed community acquired PNA which is likely etiology to his mental status. Though not fully at baseline does seem close to it. 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 Cardiovascular: Yes: Aneurysm, CHF, HTN, Hyperlipdemia Pulmonary: Yes: COPD Gastrointestinal: Yes: Constipation, Other (SBO SB benign mass, s/p resection) Renal/: Yes: BPH, Cancer, Renal Calculi Musculoskeletal: Yes: Hemiparesis Endocrine: Yes: Other - Smoking History Smoking history: Former smoker Have you smoked in the past 12 months: No Aproximately how many cigarettes per day: 10 If you are a former smoker, when did you quit?: 7 years ago - Alcohol/Substance Use Hx Alcohol Use: No History of Substance Use: reports: None - Social History Usual Living Arrangement: Yes: With Spouse Do you think of yourself as: Straight/Heterosexual ADL: Family Assistance 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 [employer] History of Recent Travel: No Home Medications - Allergies Allergies/Adverse Reactions: Allergies Allergy/AdvReac Type Severity Reaction Status Date / Time No Known Allergies Allergy Verified 01/21/19 17:21 Ambulatory Orders Aspirin [ASA -] 81 mg PO DAILY #90 tab 06/26/17 Budesonide/Formeterol Fumarate [SYMBICORT 160/4.5mcg -] 1 puff IH BID #1 inhaler 06/26/17 Montelukast Na [Singulair -] 10 mg PO HS #30 tablet 06/26/17 Furosemide [Lasix -] 40 mg PO BID tablet 10/10/18 Atorvastatin Ca [Lipitor] 40 mg PO HS 01/21/19 Carvedilol [Coreg -] 6.25 mg PO DAILY 01/21/19 Clopidogrel Bisulfate [Plavix] 75 mg PO DAILY 01/21/19 Labetalol HCl [Normodyne -] 200 mg PO DAILY 01/21/19 Amlodipine Besylate 10 mg PO DAILY 04/17/19 Azithromycin 250 mg PO DAILY 04/17/19 Benzonatate 04/17/19 Doxazosin Mesylate [Cardura -] 2 mg PO DAILY 04/17/19 Polyvinyl Alcohol [Artificial Tears] 1 drop OU QID 04/19/19 Travoprost [Travatan Z] 1 drop OU DAILY 04/19/19 Active Medications Acetaminophen (Tylenol -) 650 mg PO TID PRN PRN Reason: FEVER Albuterol/Ipratropium (Duoneb -) 1 amp NEB RQID [facility] Last Admin: 04/22/19 08:11 Dose: Not Given Amlodipine Besylate (Norvasc -) 10 mg PO DAILY [facility] Last Admin: 04/22/19 09:52 Dose: 10 mg Artificial Tears (Artificial Tears) 1 drop OU QID [facility] Last Admin: 04/22/19 09:56 Dose: 1 drop Aspirin (Asa -) 81 mg PO DAILY [facility] Last Admin: 04/22/19 09:48 Dose: 81 mg Atorvastatin Calcium (Lipitor -) 40 mg PO HS [facility] Last Admin: 04/21/19 22:31 Dose: 40 mg Budesonide/Formoterol Fumarate (Symbicort 160/4.5mcg -) 1 puff IH BID [facility] Last Admin: 04/22/19 09:57 Dose: 1 puff Carvedilol (Coreg -) 6.25 mg PO BID [facility] Last Admin: 04/22/19 09:51 Dose: 6.25 mg Cefuroxime Axetil (Ceftin -) 500 mg PO BID [facility] Last Admin: 04/22/19 09:48 Dose: 500 mg Clopidogrel Bisulfate (Plavix -) 75 mg PO DAILY [facility] Last Admin: 04/22/19 09:52 Dose: 75 mg Doxazosin Mesylate (Cardura -) 2 mg PO HS [facility] Last Admin: 04/21/19 22:31 Dose: 2 mg Famotidine (Pepcid -) 20 mg PO DAILY [facility] Last Admin: 04/22/19 09:52 Dose: 20 mg Furosemide (Lasix Injection -) 40 mg IVPUSH DAILY [facility] Last Admin: 04/22/19 09:55 Dose: 40 mg Guaifenesin (Robitussin -) 10 ml PO Q6H PRN PRN Reason: COUGH Last Admin: 04/17/19 17:59 Dose: 10 ml Insulin Aspart (Novolog Vial Sliding Scale -) 1 vial SQ [facility]; Protocol Last Admin: 04/22/19 07:08 Dose: 2 units Latanoprost (Xalatan 0.005% Eye Drops -) 1 drop OU HS [facility] Last Admin: 04/21/19 22:35 Dose: 1 drop Lisinopril (Prinivil) 5 mg PO DAILY [facility] Last Admin: 04/22/19 09:51 Dose: 5 mg Montelukast Sodium (Singulair -) 10 mg PO HS [facility] Last Admin: 04/21/19 22:31 Dose: 10 mg Prednisone (Deltasone -) 40 mg PO DAILY [facility] Last Admin: 04/22/19 09:48 Dose: 40 mg Family Medical History Family History: HTN Review of Systems - Review of Systems Constitutional: reports: Fever, Loss of Appetite, Weakness (general). denies: Chills, Diaphoresis, Lethargy Eyes: denies: Blind Spots, Double Vision HENT: denies: Difficult Swallowing, Ear Discharge, Ear Pain, Epistaxis Neck: denies: Pain on Movement, Stiffness Cardiovascular: reports: Shortness of Breath. denies: Chest Pain, Palpitations Respiratory: reports: Cough, SOB, SOB on Exertion. denies: Hemoptysis, Orthopnea, Wheezing Gastrointestinal: denies: Abdominal Pain, Bloating, Constipation, Diarrhea, Rectal Bleeding, Vomiting Genitourinary: denies: Burning, Discharge, Dysuria, Flank Pain Musculoskeletal: denies: Back Pain, Joint Swelling Integumentary: denies: Rash, Wound Neurological: reports: Unsteady Gait. denies: Change in LOC, Change in Speech, Confusion, Dizziness, Seizure, Syncope, Tremors Endocrine: denies: Excessive Sweating, Flushing Hematology/Lymphatic: denies: Easily Bruised, Excessive Bleeding Psychiatric: denies: Anxiety, Depression, Suicidal Physical Examination Vital Signs: Vital Signs Period Temp Pulse Resp BP Sys/Hernandez Pulse Ox Last 24 Hr 97.4 F-98.4 F 78-88 18-18 132-145/66-82 95 Constitutional: Yes: No Distress, Calm Eyes: Yes: Conjunctiva Clear HENT: Yes: Atraumatic Neck: Yes: Supple Cardiovascular: Yes: Regular Rate and Rhythm Respiratory: Yes: Diminished Gastrointestinal: Yes: Soft. No: Tenderness Renal/: No: Hematuria Musculoskeletal: No: Joint Stiffness, Joint Swelling Extremities: No: Cold, Cool Edema: Yes (1+ pretibial bilateral) Integumentary: No: Rash, Venous Stasis Changes Neurological: Awake, alert, moves all extremities equally, sensory intact, finger to nose normal, gait deferred Labs: CBCD WBC 11.7 K/mm3 (4.0-10.0) H 04/22/19 06:33 RBC 5.33 M/mm3 (4.00-5.60) 04/22/19 06:33 Hgb 14.5 GM/dL (11.7-16.9) 04/22/19 06:33 Hct 43.9 % (35.4-49) 04/22/19 06:33 MCV 82.4 fl (80-96) 04/22/19 06:33 MCHC 33.0 g/dl (32.0-35.9) 04/22/19 06:33 RDW 14.3 % (11.9-15.9) 04/22/19 06:33 Plt Count 342 K/MM3 (134-434) 04/22/19 06:33 MPV 7.1 fl (7.5-11.1) L 04/22/19 06:33 CMP Sodium 135 mmol/L (136-145) L 04/22/19 06:33 Potassium 4.0 mmol/L (3.5-5.1) 04/22/19 06:33 Chloride 92 mmol/L (98-107) L 04/22/19 06:33 Carbon Dioxide 37 mmol/L (21-32) H 04/22/19 06:33 Anion Gap 6 MMOL/L (8-16) L 04/22/19 06:33 BUN 22.7 mg/dL (7-18) H 04/22/19 06:33 Creatinine 0.8 mg/dL (0.55-1.3) 04/22/19 06:33 Random Glucose 152 mg/dL (74-106) H 04/22/19 06:33 Calcium 9.3 mg/dL (8.5-10.1) 04/22/19 06:33 Total Bilirubin 1.1 mg/dL (0.2-1) H 04/22/19 06:33 AST 40 U/L (15-37) H 04/22/19 06:33 ALT 72 U/L (13-61) H 04/22/19 06:33 Alkaline Phosphatase 96 U/L (45-117) 04/22/19 06:33 Total Protein 6.0 g/dl (6.4-8.2) L 04/22/19 06:33 Albumin 2.8 g/dl (3.4-5.0) L 04/22/19 06:33 CARDIAC ENZYMES Troponin I < 0.02 ng/ml (0.00-0.05) 04/17/19 08:05 Assessment/Plan 84y M history of CHF, prior CVA, HTN, HLD, COPD (on room air), dementia, prostate CA, h/o PEG /aspiration PNA few years ago, presented with complaint of confusion/cough for the past week prior to admission, associated with fever, and increasing sob with nonproductive cough. Pt denied any chest pain, n/v, diaphoreis, abd pain, back pain; has chronic both legs swelling (always has baseline swelling). no sick contacts or recent hospitalizations. his called Dr. Delcid few days ago prior to admission and Heriberto ordered po but he did not take it; instead she brought him to ER. Patient labs indicate HA1C 7.2 and elevated BNP. Patient labs currently indicate elevated BUN 22.7 and LFTS slightly elevated, trending up. Does know name of President though initially response was of negative comments. Head CT completed, results pending, chest CT orderd, results pending, Ultrasound of pelvis ordered, not yet completed. ID note reviewed, received ABX for presumed community acquired PNA which is likely etiology to his mental status. Though not fully at baseline does seem close to it. Continue infectious optimization, Abx as per primary and ID. Continue hydration, frequent reorientation. Does not require any neurologic medications at this time. More consistent with delirum than dementia. Possibly worse due to unfamilar enviorment though close to baseline for me this AM, likely improving.
--- NOTE | 2019-04-22 12:42 | PN ---
Progress Note, Physician History of Present Illness: pulmonary alert,comfortable,-resp distress,+ valencia - Current Medication List Current Medications: Active Medications Acetaminophen (Tylenol -) 650 mg PO TID PRN PRN Reason: FEVER Albuterol/Ipratropium (Duoneb -) 1 amp NEB RQID [facility] Last Admin: 04/22/19 11:32 Dose: 1 amp Amlodipine Besylate (Norvasc -) 10 mg PO DAILY [facility] Last Admin: 04/22/19 09:52 Dose: 10 mg Artificial Tears (Artificial Tears) 1 drop OU QID [facility] Last Admin: 04/22/19 09:56 Dose: 1 drop Aspirin (Asa -) 81 mg PO DAILY [facility] Last Admin: 04/22/19 09:48 Dose: 81 mg Atorvastatin Calcium (Lipitor -) 40 mg PO HS [facility] Last Admin: 04/21/19 22:31 Dose: 40 mg Budesonide/Formoterol Fumarate (Symbicort 160/4.5mcg -) 1 puff IH BID [facility] Last Admin: 04/22/19 09:57 Dose: 1 puff Carvedilol (Coreg -) 6.25 mg PO BID [facility] Last Admin: 04/22/19 09:51 Dose: 6.25 mg Cefuroxime Axetil (Ceftin -) 500 mg PO BID [facility] Last Admin: 04/22/19 09:48 Dose: 500 mg Clopidogrel Bisulfate (Plavix -) 75 mg PO DAILY [facility] Last Admin: 04/22/19 09:52 Dose: 75 mg Doxazosin Mesylate (Cardura -) 2 mg PO HS [facility] Last Admin: 04/21/19 22:31 Dose: 2 mg Famotidine (Pepcid -) 20 mg PO DAILY [facility] Last Admin: 04/22/19 09:52 Dose: 20 mg Furosemide (Lasix Injection -) 40 mg IVPUSH DAILY [facility] Last Admin: 04/22/19 09:55 Dose: 40 mg Guaifenesin (Robitussin -) 10 ml PO Q6H PRN PRN Reason: COUGH Last Admin: 04/17/19 17:59 Dose: 10 ml Insulin Aspart (Novolog Vial Sliding Scale -) 1 vial SQ [facility]; Protocol Last Admin: 04/22/19 11:26 Dose: 2 units Latanoprost (Xalatan 0.005% Eye Drops -) 1 drop OU [facility] Last Admin: 12/13/19 22:35 Dose: 1 drop Lisinopril (Prinivil) 5 mg PO DAILY [facility] Last Admin: 04/22/19 09:51 Dose: 5 mg Montelukast Sodium (Singulair -) 10 mg PO HS [facility] Last Admin: 04/21/19 22:31 Dose: 10 mg Prednisone (Deltasone -) 40 mg PO DAILY [facility] Last Admin: 04/22/19 09:48 Dose: 40 mg - Objective Vital Signs: Vital Signs Temperature 97.6 F 04/22/19 09:30 Pulse Rate 86 04/22/19 09:30 Respiratory Rate 18 04/22/19 09:30 Blood Pressure 141/81 04/22/19 09:30 O2 Sat by Pulse Oximetry (%) 98 04/22/19 09:00 Constitutional: Yes: Well Nourished, Calm Eyes: Yes: WNL HENT: Yes: WNL Neck: Yes: WNL Cardiovascular: Yes: Regular Rate and Rhythm, S1, S2 Respiratory: Yes: CTA Bilaterally Gastrointestinal: Yes: Normal Bowel Sounds, Soft Extremities: Yes: WNL Edema: No Labs: CBC, BMP 04/22/19 06:33 04/22/19 06:33 INR, PTT INR 1.08 (0.83-1.09) 04/17/19 08:05 Assessment/Plan Problem List - Problems (1) COPD exacerbation Code(s): J44.1 - CHRONIC OBSTRUCTIVE PULMONARY DISEASE W (ACUTE) EXACERBATION (2) Abdominal aortic aneurysm (AAA) Code(s): I71.4 - ABDOMINAL AORTIC ANEURYSM, WITHOUT RUPTURE (3) Acute exacerbation of chronic obstructive pulmonary disease (COPD) Code(s): J44.1 - CHRONIC OBSTRUCTIVE PULMONARY DISEASE W (ACUTE) EXACERBATION (4) CHF (congestive heart failure) Code(s): I50.9 - HEART FAILURE, UNSPECIFIED Qualifiers: Heart failure type: unspecified Heart failure chronicity: chronic Qualified Code(s): I50.9 - Heart failure, unspecified (5) Chronic obstructive pulmonary disease Code(s): J44.9 - CHRONIC OBSTRUCTIVE PULMONARY DISEASE, UNSPECIFIED (6) Dementia Code(s): F03.90 - UNSPECIFIED DEMENTIA WITHOUT BEHAVIORAL DISTURBANCE (7) Diastolic CHF Code(s): I50.30 - UNSPECIFIED DIASTOLIC (CONGESTIVE) HEART FAILURE (8) HTN (hypertension) Code(s): I10 - ESSENTIAL (PRIMARY) HYPERTENSION (9) Osteoporosis Code(s): M81.0 - AGE-RELATED OSTEOPOROSIS W/O CURRENT PATHOLOGICAL FRACTURE (10) PSVT (paroxysmal supraventricular tachycardia) Code(s): I47.1 - SUPRAVENTRICULAR TACHYCARDIA (11) Pneumonia Code(s): J18.9 - PNEUMONIA, UNSPECIFIED ORGANISM Qualifiers: Pneumonia type: aspiration pneumonia Aspiration pneumonia type: unspecified Laterality: bilateral Lung location: unspecified part of lung Qualified Code(s): J69.0 - Pneumonitis due to inhalation of food and vomit (12) Prostate cancer Code(s): C61 - MALIGNANT NEOPLASM OF PROSTATE (13) Pulmonary nodule, left Code(s): R91.1 - SOLITARY PULMONARY NODULE Assessment/Plan prednisone 40 g daily BD TX standing and PRN ABX completed Singulair O2 as needed to maintain saturation VTE prophylaxis No smoking counseled Outpatient follow up of lung nodule (yearly) DR LAO
[2019-04-22] MEDS: DOXAZOSIN MESYLATE 2 MG TABLET (FP) PO SCH (21:56)
[2019-04-22] MEDS: ATORVASTATIN CA 40 MG TABLET (FP) PO SCH (21:57)
[2019-04-22] MEDS: MONTELUKAST NA 10 MG TABLET PO SCH (21:57)
[2019-04-22] MEDS: LATANOPROST 0.005% OPHTH SOLN 2.5ML BOTTLE OU SCH (21:58)
[2019-04-23] MEDS: guaiFENesin 200 MG/10 ML 10 ML UNIT-DOSE CUPS PO PRN (03:53)
[2019-04-23] MEDS: INSULIN SLIDING SCALE (NOVOLOG) 1 VIAL SQ SCH ×4 (06:40→22:27)
[2019-04-23 08:32] LABS: BASO % 0.1 % (0-2.0); HEMOGLOBIN 15.3 GM/dL (11.7-16.9); LYMPH % 8.4 % (8-40); MCH 27.6 pg (25.7-33.7); MCHC 33.3 g/dl (32.0-35.9); MEAN PLT VOLUME 7.3 fl (7.5-11.1); MONO % 10.9 % (3.8-10.2); NEUT % 80.6 % (42.8-82.8); PLATELET COUNT 338 K/MM3 (134-434); RBC 5.55 M/mm3 (4.00-5.60); RDW 14.3 % (11.9-15.9); WHITE BLOOD COUNT 14.2 K/mm3 (4.0-10.0)
[2019-04-23] MEDS: ALBUTEROL SO4 2.5/IPRATROPIUM 0.5 INH SOL 3 ML VIAL.NEB. NEB SCH ×4 (08:40→19:55)
--- NOTE | 2019-04-23 08:42 | PN ---
Progress Note, Physician Chief Complaint: in bed awake alert NAD AxOx3 now but per and staff he becomes more confused at night - ? seen by neuro no changes; also per he has some memory problems, will start low dose aricept; will need f/u outpt chest CT COPD and 5 mm nodule will need 6 months f/u and pulm f/u d/w pt and also abd CT official reading pending but prelim mod inguinal hernia not incarcerated no obstruction, pt has no pain passed BM will need surgery eval ( no emergency) and f/u outpt also d/w pt and walked 100 feet with PT; has home O2 d/w pt and - DC planning for home with VNS and home PT - Current Medication List Current Medications: Active Medications Acetaminophen (Tylenol -) 650 mg PO TID PRN PRN Reason: FEVER Albuterol/Ipratropium (Duoneb -) 1 amp NEB RQID [facility] Last Admin: 04/22/19 20:10 Dose: 1 amp Amlodipine Besylate (Norvasc -) 10 mg PO DAILY [facility] Last Admin: 04/22/19 09:52 Dose: 10 mg Artificial Tears (Artificial Tears) 1 drop OU QID [facility] Last Admin: 04/22/19 21:58 Dose: 1 drop Aspirin (Asa -) 81 mg PO DAILY [facility] Last Admin: 04/22/19 09:48 Dose: 81 mg Atorvastatin Calcium (Lipitor -) 40 mg PO HS [facility] Last Admin: 04/22/19 21:57 Dose: 40 mg Budesonide/Formoterol Fumarate (Symbicort 160/4.5mcg -) 1 puff IH BID [facility] Last Admin: 04/22/19 21:57 Dose: 1 puff Carvedilol (Coreg -) 6.25 mg PO BID [facility] Last Admin: 04/22/19 21:57 Dose: 6.25 mg Cefuroxime Axetil (Ceftin -) 500 mg PO BID [facility] Last Admin: 04/22/19 21:56 Dose: 500 mg Clopidogrel Bisulfate (Plavix -) 75 mg PO DAILY [facility] Last Admin: 04/22/19 09:52 Dose: 75 mg Doxazosin Mesylate (Cardura -) 2 mg PO HS [facility] Last Admin: 04/22/19 21:56 Dose: 2 mg Famotidine (Pepcid -) 20 mg PO DAILY [facility] Last Admin: 04/22/19 09:52 Dose: 20 mg Furosemide (Lasix Injection -) 40 mg IVPUSH DAILY [facility] Last Admin: 04/22/19 09:55 Dose: 40 mg Guaifenesin (Robitussin -) 10 ml PO Q6H PRN PRN Reason: COUGH Last Admin: 04/23/19 03:53 Dose: 10 ml Insulin Aspart (Novolog Vial Sliding Scale -) 1 vial SQ [facility]; Protocol Last Admin: 04/23/19 06:40 Dose: Not Given Latanoprost (Xalatan 0.005% Eye Drops -) 1 drop OU HS [facility] Last Admin: 04/22/19 21:58 Dose: 1 drop Lisinopril (Prinivil) 5 mg PO DAILY [facility] Last Admin: 04/22/19 09:51 Dose: 5 mg Montelukast Sodium (Singulair -) 10 mg PO HS [facility] Last Admin: 04/22/19 21:57 Dose: 10 mg Prednisone (Deltasone -) 40 mg PO DAILY [facility] Last Admin: 04/22/19 09:48 Dose: 40 mg - Objective Vital Signs: Vital Signs Temperature 98.2 F 04/23/19 06:00 Pulse Rate 82 04/23/19 06:00 Respiratory Rate 18 04/23/19 06:00 Blood Pressure 90/59 L 04/23/19 06:00 O2 Sat by Pulse Oximetry (%) 98 04/22/19 21:00 Constitutional: Yes: No Distress, Calm Eyes: Yes: Conjunctiva Clear HENT: Yes: Atraumatic Neck: Yes: Supple Cardiovascular: Yes: Regular Rate and Rhythm Respiratory: Yes: CTA Bilaterally Gastrointestinal: Yes: Soft. No: Tenderness Genitourinary: No: Hematuria Musculoskeletal: No: Joint Stiffness, Joint Swelling Extremities: No: Cold, Cool Edema: No Integumentary: No: Rash, Venous Stasis Changes Neurological: Yes: WNL, Alert, Oriented ...Motor Strength: WNL Psychiatric: Yes: WNL, Alert, Oriented. No: Agitated, Suicidal Ideation Labs: CBC, BMP 04/23/19 08:00 INR, PTT INR 1.08 (0.83-1.09) 04/17/19 08:05 - ....Imaging Other: Report Reviewed Assessment/Plan 84y M history of CHF, prior CVA, HTN, HLD, COPD (on no 02), dementia, prostate CA, h/o PEG / aspiration PNA few years ago - presenting with complaint of confusion/cough for the past four days associated with fever presents with increasing sob and nonproductive cough. CXR c/w RLL PNA; chest CT noted; nebs; O2 NC; 6 months f/u chest CT outpt PNA,acute on chronic COPD exac - taper steroids confusion: head CT negative; neuro f/u; start aricept CHF legs edema improved po lasix and legs elevation, TEDs to legs also (d/w pt to use them home too) abd CT inguinal hernia not incarcerated no obstruction ; nonemergent surgical eval ID, pulmonary and cardiology f/u; improved with current treatment; high LFts h/o prostate CA will need and GI f/u outpt PT rehab home, VNS; DC planning home d/w pt and staff d/w pt's Rachael / phone all the above
[2019-04-23 09:20] LABS: ALBUMIN 2.7 g/dl (3.4-5.0); BILIRUBIN,TOTAL 0.9 mg/dL (0.2-1); BLOOD UREA NITROGEN 23.8 mg/dL (7-18); CALCIUM 9.6 mg/dL (8.5-10.1); CREATININE 0.7 mg/dL (0.55-1.3); TOT PROT 5.9 g/dl (6.4-8.2)
[2019-04-23] MEDS: ASPIRIN 81 MG CHEWABLE TABLETS PO SCH (10:20)
[2019-04-23] MEDS: predniSONE 20 MG TABLET (UD) PO SCH (10:21)
[2019-04-23] MEDS: LISINOPRIL 5 MG TABLET (FP) PO SCH (10:22)
[2019-04-23] MEDS: CLOPIDOGREL BISULFATE 75 MG TABLET (FP) PO SCH (10:22)
[2019-04-23] MEDS: CARVEDILOL 6.25 MG TABLET (FP) PO SCH ×2 (10:23→22:26)
[2019-04-23] MEDS: CEFUROXIME AXETIL 500 MG TABLET PO SCH ×2 (10:23→22:27)
[2019-04-23] MEDS: FAMOTIDINE 20 MG TABLET PO SCH (10:23)
[2019-04-23] MEDS: FUROSEMIDE 40 MG/4 ML INJECTABLE VIAL IVPUSH SCH (10:24)
--- NOTE | 2019-04-23 10:24 | PN ---
Progress Note (short form) - Note Progress Note: Neurology - Primary Care Physician PCP: Gini Delcid S - Admission Chief Complaint: cough SOB fever History of Present Illness: 84y M history of CHF, prior CVA, HTN, HLD, COPD (on room air), dementia, prostate CA, h/o PEG /aspiration PNA few years ago, presented with complaint of confusion/cough for the past week prior to admission, associated with fever, and increasing sob with nonproductive cough. Pt denied any chest pain, n/v, diaphoreis, abd pain, back pain; has chronic both legs swelling (always has baseline swelling). no sick contacts or recent hospitalizations. his called Dr. Delcid few days ago prior to admission and Heriberto ordered po but he did not take it; instead she brought him to ER. Patient labs indicate HA1C 7.2 and elevated BNP. Patient labs currently indicate elevated BUN 23.8 and LFTS slightly elevated, trending up. Consulted for evaluation of mental status. Was able to telll me he's at [place]. This AM also knows month but had trouble with year, said 2004 at first. Does know name of President though initially response was of negative comments. Head CT completed, indicates chronic microvascular changes and calcified aneurysm with no gross interval changes. Ultrasound of pelvis ordered, results pending. ID note reviewed, received ABX for presumed community acquired PNA which is likely etiology to his mental status. Calm aand cooperative this morning, no acute events overnight, mental status seems at or near baseline. Active Medications Acetaminophen (Tylenol -) 650 mg PO TID PRN PRN Reason: FEVER Albuterol/Ipratropium (Duoneb -) 1 amp NEB RQID [facility] Last Admin: 04/23/19 08:40 Dose: 1 amp Amlodipine Besylate (Norvasc -) 5 mg PO DAILY [facility] Artificial Tears (Artificial Tears) 1 drop OU QID [facility] Last Admin: 04/22/19 21:58 Dose: 1 drop Aspirin (Asa -) 81 mg PO DAILY [facility] Last Admin: 04/22/19 09:48 Dose: 81 mg Atorvastatin Calcium (Lipitor -) 40 mg PO HS [facility] Last Admin: 04/22/19 21:57 Dose: 40 mg Budesonide/Formoterol Fumarate (Symbicort 160/4.5mcg -) 1 puff IH BID [facility] Last Admin: 04/22/19 21:57 Dose: 1 puff Carvedilol (Coreg -) 6.25 mg PO BID [facility] Last Admin: 04/22/19 21:57 Dose: 6.25 mg Cefuroxime Axetil (Ceftin -) 500 mg PO BID [facility] Last Admin: 04/22/19 21:56 Dose: 500 mg Clopidogrel Bisulfate (Plavix -) 75 mg PO DAILY [facility] Last Admin: 04/22/19 09:52 Dose: 75 mg Donepezil HCl (Aricept -) 5 mg PO DAILY [facility] Doxazosin Mesylate (Cardura -) 2 mg PO HS [facility] Last Admin: 04/22/19 21:56 Dose: 2 mg Famotidine (Pepcid -) 20 mg PO DAILY [facility] Last Admin: 04/22/19 09:52 Dose: 20 mg Furosemide (Lasix Injection -) 40 mg IVPUSH DAILY [facility] Last Admin: 04/22/19 09:55 Dose: 40 mg Guaifenesin (Robitussin -) 10 ml PO Q6H PRN PRN Reason: COUGH Last Admin: 04/23/19 03:53 Dose: 10 ml Insulin Aspart (Novolog Vial Sliding Scale -) 1 vial SQ [facility]; Protocol Last Admin: 04/23/19 06:40 Dose: Not Given Latanoprost (Xalatan 0.005% Eye Drops -) 1 drop OU [facility] Last Admin: 04/22/19 21:58 Dose: 1 drop Lisinopril (Prinivil) 5 mg PO DAILY [facility] Last Admin: 04/22/19 09:51 Dose: 5 mg Montelukast Sodium (Singulair -) 10 mg PO [facility] Last Admin: 04/22/19 21:57 Dose: 10 mg Prednisone (Deltasone -) 30 mg PO DAILY [facility] Physical Examination Vital Signs: Vital Signs Period Temp Pulse Resp BP Sys/Hernandez Pulse Ox Last 24 Hr 97.8 F-98.4 F 77-108 18-18 90-155/59-90 98 Constitutional: Yes: No Distress, Calm Eyes: Yes: Conjunctiva Clear HENT: Yes: Atraumatic Neck: Yes: Supple Cardiovascular: Yes: Regular Rate and Rhythm Respiratory: Yes: Diminished Gastrointestinal: Yes: Soft. No: Tenderness Renal/: No: Hematuria Musculoskeletal: No: Joint Stiffness, Joint Swelling Extremities: No: Cold, Cool Edema: Yes (1+ pretibial bilateral) Integumentary: No: Rash, Venous Stasis Changes Neurological: Awake, alert, moves all extremities equally, sensory intact, finger to nose normal, gait deferred Labs: CBCD WBC 14.2 K/mm3 (4.0-10.0) H 04/23/19 08:00 RBC 5.55 M/mm3 (4.00-5.60) 04/23/19 08:00 Hgb 15.3 GM/dL (11.7-16.9) 04/23/19 08:00 Hct 46.0 % (35.4-49) 04/23/19 08:00 MCV 83.0 fl (80-96) 04/23/19 08:00 MCHC 33.3 g/dl (32.0-35.9) 04/23/19 08:00 RDW 14.3 % (11.9-15.9) 04/23/19 08:00 Plt Count 338 K/MM3 (134-434) 04/23/19 08:00 MPV 7.3 fl (7.5-11.1) L 04/23/19 08:00 CMP Sodium 138 mmol/L (136-145) 04/23/19 08:00 Potassium 4.0 mmol/L (3.5-5.1) 04/23/19 08:00 Chloride 95 mmol/L (98-107) L 04/23/19 08:00 Carbon Dioxide 36 mmol/L (21-32) H 04/23/19 08:00 Anion Gap 7 MMOL/L (8-16) L 04/23/19 08:00 BUN 23.8 mg/dL (7-18) H 04/23/19 08:00 Creatinine 0.7 mg/dL (0.55-1.3) 04/23/19 08:00 Random Glucose 98 mg/dL (74-106) 04/23/19 08:00 Calcium 9.6 mg/dL (8.5-10.1) 04/23/19 08:00 Total Bilirubin 0.9 mg/dL (0.2-1) 04/23/19 08:00 AST 39 U/L (15-37) H 04/23/19 08:00 ALT 72 U/L (13-61) H 04/23/19 08:00 Alkaline Phosphatase 95 U/L (45-117) 04/23/19 08:00 Total Protein 5.9 g/dl (6.4-8.2) L 04/23/19 08:00 Albumin 2.7 g/dl (3.4-5.0) L 04/23/19 08:00 CARDIAC ENZYMES Troponin I < 0.02 ng/ml (0.00-0.05) 04/17/19 08:05 Assessment/Plan 84y M history of CHF, prior CVA, HTN, HLD, COPD (on room air), dementia, prostate CA, h/o PEG /aspiration PNA few years ago, presented with complaint of confusion/cough for the past week prior to admission, associated with fever, and increasing sob with nonproductive cough. Pt denied any chest pain, n/v, diaphoreis, abd pain, back pain; has chronic both legs swelling (always has baseline swelling). no sick contacts or recent hospitalizations. his called Dr. Delcid few days ago prior to admission and Heriberto ordered po but he did not take it; instead she brought him to ER. Patient labs indicate HA1C 7.2 and elevated BNP. Patient labs currently indicate elevated BUN 23.8 and LFTS slightly elevated, trending up. Does know name of President though initially response was of negative comments. Head CT completed, indicates chronic microvascular changes and calcified aneurysm with no gross interval changes. Ultrasound of pelvis ordered, results pending. ID note reviewed, received ABX for presumed community acquired PNA which is likely etiology to his mental status. Though not fully at baseline does seem close to it. Continue infectious optimization, Abx as per primary and ID. Continue hydration, frequent reorientation. Does not require any neurologic medications at this time. More consistent with delirum than dementia. Possibly worse due to unfamilar enviorment though close to baseline for me this AM, likely improving. Should have outpatient follow up for cognitive studies and further evaluation for dementia.
[2019-04-23] MEDS: ARTIFICIAL TEARS (POLYVINYL ALCOHOL) OPTH DROPS OU SCH ×4 (10:26→22:30)
[2019-04-23] MEDS: BUDESONIDE/FORMETEROL FUMARATE 160/4.5 mcg INHALER IH SCH ×2 (10:27→22:30)
[2019-04-23] MEDS: DONEPEZIL HCL 5 MG TABLET (FP) PO SCH (11:23)
[2019-04-23] MEDS: amLODIPine BESYLATE 10 MG TABLET (FP) PO SCH (11:23)
--- NOTE | 2019-04-23 14:26 | PN ---
Progress Note, Physician History of Present Illness: pulmonary alert,no distress,-sob at rest - Current Medication List Current Medications: Active Medications Acetaminophen (Tylenol -) 650 mg PO TID PRN PRN Reason: FEVER Albuterol/Ipratropium (Duoneb -) 1 amp NEB RQID [facility] Last Admin: 04/23/19 11:15 Dose: 1 amp Amlodipine Besylate (Norvasc -) 5 mg PO DAILY [facility] Last Admin: 04/23/19 11:23 Dose: 5 mg Artificial Tears (Artificial Tears) 1 drop OU QID [facility] Last Admin: 04/23/19 13:51 Dose: 1 drop Aspirin (Asa -) 81 mg PO DAILY [facility] Last Admin: 04/23/19 10:20 Dose: 81 mg Atorvastatin Calcium (Lipitor -) 40 mg PO HS [facility] Last Admin: 04/22/19 21:57 Dose: 40 mg Budesonide/Formoterol Fumarate (Symbicort 160/4.5mcg -) 1 puff IH BID [facility] Last Admin: 04/23/19 10:27 Dose: 1 puff Carvedilol (Coreg -) 6.25 mg PO BID [facility] Last Admin: 04/23/19 10:23 Dose: 6.25 mg Cefuroxime Axetil (Ceftin -) 500 mg PO BID [facility] Last Admin: 04/23/19 10:23 Dose: 500 mg Clopidogrel Bisulfate (Plavix -) 75 mg PO DAILY [facility] Last Admin: 04/23/19 10:22 Dose: 75 mg Donepezil HCl (Aricept -) 5 mg PO DAILY [facility] Last Admin: 04/23/19 11:23 Dose: 5 mg Doxazosin Mesylate (Cardura -) 2 mg PO HS [facility] Last Admin: 04/22/19 21:56 Dose: 2 mg Famotidine (Pepcid -) 20 mg PO DAILY [facility] Last Admin: 04/23/19 10:23 Dose: 20 mg Furosemide (Lasix Injection -) 40 mg IVPUSH DAILY [facility] Last Admin: 04/23/19 10:24 Dose: 40 mg Guaifenesin (Robitussin -) 10 ml PO Q6H PRN PRN Reason: COUGH Last Admin: 04/23/19 03:53 Dose: 10 ml Insulin Aspart (Novolog Vial Sliding Scale -) 1 vial SQ [facility]; Protocol Last Admin: 04/23/19 11:46 Dose: Not Given Latanoprost (Xalatan 0.005% Eye Drops -) 1 drop OU HS [facility] Last Admin: 04/22/19 21:58 Dose: 1 drop Lisinopril (Prinivil) 5 mg PO DAILY [facility] Last Admin: 04/23/19 10:22 Dose: 5 mg Montelukast Sodium (Singulair -) 10 mg PO HS [facility] Last Admin: 04/22/19 21:57 Dose: 10 mg Prednisone (Deltasone -) 30 mg PO DAILY [facility] Last Admin: 04/23/19 10:21 Dose: 30 mg - Objective Vital Signs: Vital Signs Temperature 98.2 F 04/23/19 10:00 Pulse Rate 86 04/23/19 10:00 Respiratory Rate 18 04/23/19 10:00 Blood Pressure 142/72 04/23/19 10:00 O2 Sat by Pulse Oximetry (%) 98 04/23/19 09:00 Constitutional: Yes: Well Nourished, Calm Eyes: Yes: WNL HENT: Yes: WNL Neck: Yes: WNL Cardiovascular: Yes: Regular Rate and Rhythm, S1, S2 Respiratory: Yes: CTA Bilaterally Gastrointestinal: Yes: Normal Bowel Sounds, Soft Extremities: Yes: WNL Edema: No Labs: CBC, BMP 04/23/19 08:00 04/23/19 08:00 INR, PTT INR 1.08 (0.83-1.09) 04/17/19 08:05 Assessment/Plan Problem List - Problems (1) COPD exacerbation Code(s): J44.1 - CHRONIC OBSTRUCTIVE PULMONARY DISEASE W (ACUTE) EXACERBATION (2) Abdominal aortic aneurysm (AAA) Code(s): I71.4 - ABDOMINAL AORTIC ANEURYSM, WITHOUT RUPTURE (3) Acute exacerbation of chronic obstructive pulmonary disease (COPD) Code(s): J44.1 - CHRONIC OBSTRUCTIVE PULMONARY DISEASE W (ACUTE) EXACERBATION (4) CHF (congestive heart failure) Code(s): I50.9 - HEART FAILURE, UNSPECIFIED Qualifiers: Heart failure type: unspecified Heart failure chronicity: chronic Qualified Code(s): I50.9 - Heart failure, unspecified (5) Chronic obstructive pulmonary disease Code(s): J44.9 - CHRONIC OBSTRUCTIVE PULMONARY DISEASE, UNSPECIFIED (6) Dementia Code(s): F03.90 - UNSPECIFIED DEMENTIA WITHOUT BEHAVIORAL DISTURBANCE (7) Diastolic CHF Code(s): I50.30 - UNSPECIFIED DIASTOLIC (CONGESTIVE) HEART FAILURE (8) HTN (hypertension) Code(s): I10 - ESSENTIAL (PRIMARY) HYPERTENSION (9) Osteoporosis Code(s): M81.0 - AGE-RELATED OSTEOPOROSIS W/O CURRENT PATHOLOGICAL FRACTURE (10) PSVT (paroxysmal supraventricular tachycardia) Code(s): I47.1 - SUPRAVENTRICULAR TACHYCARDIA (11) Pneumonia Code(s): J18.9 - PNEUMONIA, UNSPECIFIED ORGANISM Qualifiers: Pneumonia type: aspiration pneumonia Aspiration pneumonia type: unspecified Laterality: bilateral Lung location: unspecified part of lung Qualified Code(s): J69.0 - Pneumonitis due to inhalation of food and vomit (12) Prostate cancer Code(s): C61 - MALIGNANT NEOPLASM OF PROSTATE (13) Pulmonary nodule, left Code(s): R91.1 - SOLITARY PULMONARY NODULE Assessment/Plan prednisone BD TX standing and PRN ABX completed Singulair O2 as needed to maintain saturation VTE prophylaxis No smoking counseled Outpatient follow up of lung nodule (yearly) DR LAO
--- NOTE | 2019-04-23 20:36 | PN ---
Progress Note, Physician - Current Medication List Current Medications: Active Medications Acetaminophen (Tylenol -) 650 mg PO TID PRN PRN Reason: FEVER Albuterol/Ipratropium (Duoneb -) 1 amp NEB RQID [facility] Last Admin: 04/23/19 19:55 Dose: 1 amp Amlodipine Besylate (Norvasc -) 5 mg PO DAILY [facility] Last Admin: 04/23/19 11:23 Dose: 5 mg Artificial Tears (Artificial Tears) 1 drop OU QID [facility] Last Admin: 04/23/19 17:54 Dose: 1 drop Aspirin (Asa -) 81 mg PO DAILY [facility] Last Admin: 04/23/19 10:20 Dose: 81 mg Atorvastatin Calcium (Lipitor -) 40 mg PO HS [facility] Last Admin: 04/22/19 21:57 Dose: 40 mg Budesonide/Formoterol Fumarate (Symbicort 160/4.5mcg -) 1 puff IH BID [facility] Last Admin: 04/23/19 10:27 Dose: 1 puff Carvedilol (Coreg -) 6.25 mg PO BID [facility] Last Admin: 04/23/19 10:23 Dose: 6.25 mg Cefuroxime Axetil (Ceftin -) 500 mg PO BID [facility] Last Admin: 04/23/19 10:23 Dose: 500 mg Clopidogrel Bisulfate (Plavix -) 75 mg PO DAILY [facility] Last Admin: 04/23/19 10:22 Dose: 75 mg Donepezil HCl (Aricept -) 5 mg PO DAILY [facility] Last Admin: 04/23/19 11:23 Dose: 5 mg Doxazosin Mesylate (Cardura -) 2 mg PO HS [facility] Last Admin: 04/22/19 21:56 Dose: 2 mg Famotidine (Pepcid -) 20 mg PO DAILY [facility] Last Admin: 04/23/19 10:23 Dose: 20 mg Furosemide (Lasix Injection -) 40 mg IVPUSH DAILY [facility] Last Admin: 04/23/19 10:24 Dose: 40 mg Guaifenesin (Robitussin -) 10 ml PO Q6H PRN PRN Reason: COUGH Last Admin: 04/23/19 03:53 Dose: 10 ml Insulin Aspart (Novolog Vial Sliding Scale -) 1 vial SQ ACHS [facility]; Protocol Last Admin: 04/23/19 17:21 Dose: 4 units Latanoprost (Xalatan 0.005% Eye Drops -) 1 drop OU HS [facility] Last Admin: 04/22/19 21:58 Dose: 1 drop Lisinopril (Prinivil) 5 mg PO DAILY [facility] Last Admin: 04/23/19 10:22 Dose: 5 mg Montelukast Sodium (Singulair -) 10 mg PO HS [facility] Last Admin: 04/22/19 21:57 Dose: 10 mg Prednisone (Deltasone -) 30 mg PO DAILY [facility] Last Admin: 04/23/19 10:21 Dose: 30 mg - Objective Vital Signs: Vital Signs Temperature 97.8 F 04/23/19 18:31 Pulse Rate 79 04/23/19 18:31 Respiratory Rate 20 04/23/19 18:31 Blood Pressure 151/79 04/23/19 18:31 O2 Sat by Pulse Oximetry (%) 98 04/23/19 09:00 Labs: CBC, BMP 04/23/19 08:00 04/23/19 08:00 INR, PTT INR 1.08 (0.83-1.09) 04/17/19 08:05 Problem List - Problems (1) Acute on chronic diastolic (congestive) heart failure Code(s): I50.33 - ACUTE ON CHRONIC DIASTOLIC (CONGESTIVE) HEART FAILURE (2) Acute bronchitis Code(s): J20.9 - ACUTE BRONCHITIS, UNSPECIFIED (3) Acute exacerbation of chronic obstructive pulmonary disease (COPD) Code(s): J44.1 - CHRONIC OBSTRUCTIVE PULMONARY DISEASE W (ACUTE) EXACERBATION (4) Dementia Code(s): F03.90 - UNSPECIFIED DEMENTIA WITHOUT BEHAVIORAL DISTURBANCE (5) Weakness Code(s): R53.1 - WEAKNESS (6) HTN (hypertension) Code(s): I10 - ESSENTIAL (PRIMARY) HYPERTENSION
--- NOTE | 2019-04-23 21:30 | HP ---
DATE OF ADMISSION: 04/17/2019 REFERRING PHYSICIAN: Gini Delcid MD REASON FOR REFERRAL: Inguinal hernia. BRIEF HISTORY: This is an 84-year-old gentleman with a multitude of medical issues such as CHF, CVA, hypertension, hyperlipidemia, COPD, dementia, prostate cancer , and a history of a PEG, who presented to the hospital with exacerbation of COPD. During his workup, he was noted to have inguinal hernia and I have been asked to evaluate this. Currently the patient is on a regular diet. He has had no history of abdominal pain, no nausea, no vomiting, no evidence clinically of a bowel obstruction. The patient does not have complaints of hernia, pain, or discomfort at this time as well. PAST MEDICAL HISTORY: As mentioned above. PAST SURGICAL HISTORY: Patient has a limited midline scar, and with his history of prostate cancer, I suspect he may have had a robotic prostatectomy; however, patient unaware of the past surgical history he has had. Patient does not smoke, he does not drink. He lives in an assisted-living facility. ALLERGIES: None. MEDICATIONS: Aspirin, Singulair, Lasix, atorvastatin, carvedilol, Plavix, Normodyne, amlodipine, azithromycin, doxazosin. PHYSICAL EXAMINATION: Abdomen: Patient examined in the supine position. He is in a diaper. The abdomen is soft, nontender, nondistended. He has a limited midline scar. He has bilateral inguinal hernias, right greater than left. The hernias are nontender, reducible in the supine position. He has no tenderness in the groins. IMPRESSION/PLAN: Bilateral inguinal hernias: This is an 84-year-old gentleman admitted with exacerbation of chronic obstructive pulmonary disease, who was noted to have inguinal hernias. At this point, I do not see a reason to repair his hernias emergently. He has no evidence of a clinical obstruction or a clinical issue at this time. Operating at this time during this admission would not be optimal for this patient since he is being treated for exacerbation of COPD and possible bronchitis and therefore has higher risks of mesh infection. I think the best approach would be to evaluate this patient as an outpatient basis. Upon discharge, please have the patient follow up with me so that I may reevaluate his inguinal hernias and proceed with recommendations of repair at that time. Thank you for allowing me to participate in the care of your patient. If you have any questions, please feel free to give me a call directly. Rick SCHUSTER [id number] cc: Gini Delcid MD MTDD
[2019-04-23] MEDS: ATORVASTATIN CA 40 MG TABLET (FP) PO SCH (22:26)
[2019-04-23] MEDS: MONTELUKAST NA 10 MG TABLET PO SCH (22:26)
[2019-04-23] MEDS: DOXAZOSIN MESYLATE 2 MG TABLET (FP) PO SCH (22:27)
[2019-04-23] MEDS: LATANOPROST 0.005% OPHTH SOLN 2.5ML BOTTLE OU SCH (22:30)
[2019-04-24] MEDS: guaiFENesin 200 MG/10 ML 10 ML UNIT-DOSE CUPS PO PRN ×2 (02:42→17:48)
[2019-04-24] MEDS: INSULIN SLIDING SCALE (NOVOLOG) 1 VIAL SQ SCH ×4 (06:33→21:35)
--- NOTE | 2019-04-24 07:36 | PN ---
Progress Note, Physician Chief Complaint: less cough no SOB; consults apprecaited and d/w pt and / phone - Current Medication List Current Medications: Active Medications Acetaminophen (Tylenol -) 650 mg PO TID PRN PRN Reason: FEVER Albuterol/Ipratropium (Duoneb -) 1 amp NEB RQID [facility] Last Admin: 04/23/19 19:55 Dose: 1 amp Amlodipine Besylate (Norvasc -) 5 mg PO DAILY [facility] Last Admin: 04/23/19 11:23 Dose: 5 mg Artificial Tears (Artificial Tears) 1 drop OU QID [facility] Last Admin: 04/23/19 22:30 Dose: 1 drop Aspirin (Asa -) 81 mg PO DAILY [facility] Last Admin: 04/23/19 10:20 Dose: 81 mg Atorvastatin Calcium (Lipitor -) 40 mg PO HS [facility] Last Admin: 04/23/19 22:26 Dose: 40 mg Budesonide/Formoterol Fumarate (Symbicort 160/4.5mcg -) 1 puff IH BID [facility] Last Admin: 04/23/19 22:30 Dose: 1 puff Carvedilol (Coreg -) 6.25 mg PO BID [facility] Last Admin: 04/23/19 22:26 Dose: 6.25 mg Cefuroxime Axetil (Ceftin -) 500 mg PO BID [facility] Last Admin: 04/23/19 22:27 Dose: 500 mg Clopidogrel Bisulfate (Plavix -) 75 mg PO DAILY [facility] Last Admin: 04/23/19 10:22 Dose: 75 mg Donepezil HCl (Aricept -) 5 mg PO DAILY [facility] Last Admin: 04/23/19 11:23 Dose: 5 mg Doxazosin Mesylate (Cardura -) 2 mg PO HS [facility] Last Admin: 04/23/19 22:27 Dose: 2 mg Famotidine (Pepcid -) 20 mg PO DAILY [facility] Last Admin: 04/23/19 10:23 Dose: 20 mg Furosemide (Lasix Injection -) 40 mg IVPUSH DAILY [facility] Last Admin: 04/23/19 10:24 Dose: 40 mg Guaifenesin (Robitussin -) 10 ml PO Q6H PRN PRN Reason: COUGH Last Admin: 04/24/19 02:42 Dose: 10 ml Insulin Aspart (Novolog Vial Sliding Scale -) 1 vial SQ [facility]; Protocol Last Admin: 12/16/19 06:33 Dose: Not Given Latanoprost (Xalatan 0.005% Eye Drops -) 1 drop OU HS [facility] Last Admin: 04/23/19 22:30 Dose: 1 drop Lisinopril (Prinivil) 5 mg PO DAILY [facility] Last Admin: 04/23/19 10:22 Dose: 5 mg Montelukast Sodium (Singulair -) 10 mg PO HS [facility] Last Admin: 04/23/19 22:26 Dose: 10 mg Prednisone (Deltasone -) 30 mg PO DAILY [facility] Last Admin: 04/23/19 10:21 Dose: 30 mg - Objective Vital Signs: Vital Signs Temperature 97.8 F 04/23/19 22:16 Pulse Rate 85 04/23/19 22:16 Respiratory Rate 20 04/23/19 22:16 Blood Pressure 126/77 04/23/19 22:16 O2 Sat by Pulse Oximetry (%) 97 04/23/19 21:00 Constitutional: Yes: No Distress, Calm Eyes: Yes: Conjunctiva Clear HENT: Yes: Atraumatic Neck: Yes: Supple Cardiovascular: Yes: Regular Rate and Rhythm Respiratory: Yes: Diminished Gastrointestinal: Yes: Soft. No: Tenderness Genitourinary: No: Hematuria Musculoskeletal: No: Joint Stiffness, Joint Swelling Extremities: No: Cold, Cool Edema: No Neurological: Yes: Alert ...Motor Strength: WNL Psychiatric: Yes: Alert. No: Agitated, Suicidal Ideation Labs: CBC, BMP 04/23/19 08:00 04/23/19 08:00 INR, PTT INR 1.08 (0.83-1.09) 04/17/19 08:05 - ....Imaging Other: Report Reviewed Assessment/Plan 84y M history of CHF, prior CVA, HTN, HLD, COPD (on no 02), dementia, prostate CA, h/o PEG / aspiration PNA few years ago - presenting with complaint of confusion/cough for the past four days associated with fever presents with increasing sob and nonproductive cough. CXR c/w RLL PNA; chest CT noted; nebs; O2 NC; 6 months f/u chest CT outpt PNA,acute on chronic COPD exac - taper steroids confusion: head CT negative; neuro f/u; start aricept CHF legs edema improved po lasix and legs elevation, TEDs to legs also (d/w pt to use them home too) abd CT inguinal hernia not incarcerated no obstruction ; nonemergent surgical eval - will need surgery f/u outpt intrarenal aortic aneurysm - vascular sx eval ID, pulmonary and cardiology f/u; improved with current treatment; high LFts h/o prostate CA will need and GI f/u outpt PT rehab home, VNS; DC planning home d/w pt and staff d/w pt's Rachael / phone all the above
[2019-04-24] MEDS: ALBUTEROL SO4 2.5/IPRATROPIUM 0.5 INH SOL 3 ML VIAL.NEB. NEB SCH ×4 (08:00→21:01)
--- NOTE | 2019-04-24 08:55 | PN ---
Progress Note (short form) - Note Progress Note: Neurology - Primary Care Physician PCP: Gini Delcid S - Admission Chief Complaint: cough SOB fever History of Present Illness: 84y M history of CHF, prior CVA, HTN, HLD, COPD (on room air), dementia, prostate CA, h/o PEG /aspiration PNA few years ago, presented with complaint of confusion/cough for the past week prior to admission, associated with fever, and increasing sob with nonproductive cough. Pt denied any chest pain, n/v, diaphoreis, abd pain, back pain; has chronic both legs swelling (always has baseline swelling). no sick contacts or recent hospitalizations. his called Dr. Delcid few days ago prior to admission and Heriberto ordered po but he did not take it; instead she brought him to ER. Patient labs indicate HA1C 7.2 and elevated BNP. Patient labs currently indicate elevated BUN 23.8 and LFTS slightly elevated, trending up. Consulted for evaluation of mental status. Was able to telll me he's at [place]. Head CT completed, indicates chronic microvascular changes and calcified aneurysm with no gross interval changes. Ultrasound of pelvis ordered, results pending. ID note reviewed, received ABX for presumed community acquired PNA which is likely etiology to his mental status. Calm aand cooperative this morning, no acute events overnight, mental status seems at or near baseline. Knows he's in the hospital, can tell me month , has some trouble with year still. Active Medications Acetaminophen (Tylenol -) 650 mg PO TID PRN PRN Reason: FEVER Albuterol/Ipratropium (Duoneb -) 1 amp NEB RQID [facility] Last Admin: 04/24/19 08:00 Dose: 1 amp Amlodipine Besylate (Norvasc -) 5 mg PO DAILY [facility] Last Admin: 04/23/19 11:23 Dose: 5 mg Artificial Tears (Artificial Tears) 1 drop OU QID [facility] Last Admin: 04/23/19 22:30 Dose: 1 drop Aspirin (Asa -) 81 mg PO DAILY [facility] Last Admin: 04/23/19 10:20 Dose: 81 mg Atorvastatin Calcium (Lipitor -) 40 mg PO HS [facility] Last Admin: 04/23/19 22:26 Dose: 40 mg Budesonide/Formoterol Fumarate (Symbicort 160/4.5mcg -) 1 puff IH BID [facility] Last Admin: 04/23/19 22:30 Dose: 1 puff Carvedilol (Coreg -) 6.25 mg PO BID [facility] Last Admin: 04/23/19 22:26 Dose: 6.25 mg Cefuroxime Axetil (Ceftin -) 500 mg PO BID [facility] Last Admin: 04/23/19 22:27 Dose: 500 mg Clopidogrel Bisulfate (Plavix -) 75 mg PO DAILY [facility] Last Admin: 04/23/19 10:22 Dose: 75 mg Donepezil HCl (Aricept -) 5 mg PO DAILY [facility] Last Admin: 04/23/19 11:23 Dose: 5 mg Doxazosin Mesylate (Cardura -) 2 mg PO HS [facility] Last Admin: 04/23/19 22:27 Dose: 2 mg Famotidine (Pepcid -) 20 mg PO DAILY [facility] Last Admin: 04/23/19 10:23 Dose: 20 mg Furosemide (Lasix Injection -) 40 mg IVPUSH DAILY [facility] Last Admin: 04/23/19 10:24 Dose: 40 mg Guaifenesin (Robitussin -) 10 ml PO Q6H PRN PRN Reason: COUGH Last Admin: 04/24/19 02:42 Dose: 10 ml Insulin Aspart (Novolog Vial Sliding Scale -) 1 vial SQ [facility]; Protocol Last Admin: 04/24/19 06:33 Dose: Not Given Latanoprost (Xalatan 0.005% Eye Drops -) 1 drop OU HS [facility] Last Admin: 04/23/19 22:30 Dose: 1 drop Lisinopril (Prinivil) 5 mg PO DAILY [facility] Last Admin: 04/23/19 10:22 Dose: 5 mg Montelukast Sodium (Singulair -) 10 mg PO HS [facility] Last Admin: 04/23/19 22:26 Dose: 10 mg Prednisone (Deltasone -) 30 mg PO DAILY [facility] Last Admin: 04/23/19 10:21 Dose: 30 mg Physical Examination Vital Signs: Vital Signs Period Temp Pulse Resp BP Sys/Hernandez Pulse Ox Last 24 Hr 97.8 F-98.8 F 73-86 18-20 126-156/71-79 97-98 Constitutional: Yes: No Distress, Calm Eyes: Yes: Conjunctiva Clear HENT: Yes: Atraumatic Neck: Yes: Supple Cardiovascular: Yes: Regular Rate and Rhythm Respiratory: Yes: Diminished Gastrointestinal: Yes: Soft. No: Tenderness Renal/: No: Hematuria Musculoskeletal: No: Joint Stiffness, Joint Swelling Extremities: No: Cold, Cool Edema: Yes (1+ pretibial bilateral) Integumentary: No: Rash, Venous Stasis Changes Neurological: Awake, alert, moves all extremities equally, sensory intact, finger to nose normal, gait deferred Labs: CBCD WBC 14.2 K/mm3 (4.0-10.0) H 04/23/19 08:00 RBC 5.55 M/mm3 (4.00-5.60) 04/23/19 08:00 Hgb 15.3 GM/dL (11.7-16.9) 04/23/19 08:00 Hct 46.0 % (35.4-49) 04/23/19 08:00 MCV 83.0 fl (80-96) 04/23/19 08:00 MCHC 33.3 g/dl (32.0-35.9) 04/23/19 08:00 RDW 14.3 % (11.9-15.9) 04/23/19 08:00 Plt Count 338 K/MM3 (134-434) 04/23/19 08:00 MPV 7.3 fl (7.5-11.1) L 04/23/19 08:00 CMP Sodium 138 mmol/L (136-145) 04/23/19 08:00 Potassium 4.0 mmol/L (3.5-5.1) 04/23/19 08:00 Chloride 95 mmol/L (98-107) L 04/23/19 08:00 Carbon Dioxide 36 mmol/L (21-32) H 04/23/19 08:00 Anion Gap 7 MMOL/L (8-16) L 04/23/19 08:00 BUN 23.8 mg/dL (7-18) H 04/23/19 08:00 Creatinine 0.7 mg/dL (0.55-1.3) 04/23/19 08:00 Random Glucose 98 mg/dL (74-106) 04/23/19 08:00 Calcium 9.6 mg/dL (8.5-10.1) 04/23/19 08:00 Total Bilirubin 0.9 mg/dL (0.2-1) 04/23/19 08:00 AST 39 U/L (15-37) H 04/23/19 08:00 ALT 72 U/L (13-61) H 04/23/19 08:00 Alkaline Phosphatase 95 U/L (45-117) 04/23/19 08:00 Total Protein 5.9 g/dl (6.4-8.2) L 04/23/19 08:00 Albumin 2.7 g/dl (3.4-5.0) L 04/23/19 08:00 CARDIAC ENZYMES Troponin I < 0.02 ng/ml (0.00-0.05) 04/17/19 08:05 Assessment/Plan 84y M history of CHF, prior CVA, HTN, HLD, COPD (on room air), dementia, prostate CA, h/o PEG /aspiration PNA few years ago, presented with complaint of confusion/cough for the past week prior to admission, associated with fever, and increasing sob with nonproductive cough. Pt denied any chest pain, n/v, diaphoreis, abd pain, back pain; has chronic both legs swelling (always has baseline swelling). no sick contacts or recent hospitalizations. his called Dr. Delcid few days ago prior to admission and Heriberto ordered po but he did not take it; instead she brought him to ER. Patient labs indicate HA1C 7.2 and elevated BNP. Patient labs currently indicate elevated BUN 23.8 and LFTS slightly elevated, trending up. Does know name of President though initially response was of negative comments. Head CT completed, indicates chronic microvascular changes and calcified aneurysm with no gross interval changes. Ultrasound of pelvis ordered, results pending. ID note reviewed, received ABX for presumed community acquired PNA which is likely etiology to his mental status. Though not fully at baseline does seem close to it. Continue infectious optimization, Abx as per primary and ID. Continue hydration, frequent reorientation. Does not require any neurologic medications at this time. More consistent with delirum than dementia. Possibly worse due to unfamilar enviorment though close to baseline for me this AM, likely improving. Should have outpatient follow up for cognitive studies and further evaluation for dementia. Otherwise, neurologically stable at this time
[2019-04-24] MEDS: CEFUROXIME AXETIL 500 MG TABLET PO SCH (10:13)
[2019-04-24] MEDS: FAMOTIDINE 20 MG TABLET PO SCH (10:13)
[2019-04-24] MEDS: LISINOPRIL 5 MG TABLET (FP) PO SCH (10:13)
[2019-04-24] MEDS: CLOPIDOGREL BISULFATE 75 MG TABLET (FP) PO SCH (10:13)
[2019-04-24] MEDS: ASPIRIN 81 MG CHEWABLE TABLETS PO SCH (10:13)
[2019-04-24] MEDS: predniSONE 20 MG TABLET (UD) PO SCH (10:14)
[2019-04-24] MEDS: DONEPEZIL HCL 5 MG TABLET (FP) PO SCH (10:14)
[2019-04-24] MEDS: CARVEDILOL 6.25 MG TABLET (FP) PO SCH ×2 (10:14→21:26)
[2019-04-24] MEDS: amLODIPine BESYLATE 10 MG TABLET (FP) PO SCH (10:14)
[2019-04-24] MEDS: FUROSEMIDE 40 MG/4 ML INJECTABLE VIAL IVPUSH SCH (10:15)
--- NOTE | 2019-04-24 10:33 | CONSULT ---
- Consultation REQUESTING PROVIDER: CONSULT REQUEST: We have been asked to surgically evaluate this patient for AAA PCP:Gini Delcid HISTORY OF PRESENT ILLNESS: 84yo M was consulted to Vascular surgery for evaluation of his AAA, pt has known AAA that is being monitored. Pt has some dementia and confusion, but for the most part is able to answer questions. Pt denies any chest or abd pain. Pt states he is a former smoker quite 8 years ago. Denies fever, chills, n/v, cp, SOB. Pt denies previous vascular surgery. PMHx: HTN, HLD, COPD, CHF, CVA Home Medications Medication Instructions Recorded Aspirin [ASA -] 81 mg PO DAILY #90 tab 06/26/17 Budesonide/Formeterol Fumarate 1 puff IH BID #1 inhaler 06/26/17 [SYMBICORT 160/4.5mcg -] Montelukast Na [Singulair -] 10 mg PO HS #30 tablet 06/26/17 Furosemide [Lasix -] 40 mg PO BID tablet 10/10/18 Atorvastatin Ca [Lipitor] 40 mg PO HS 01/21/19 Carvedilol [Coreg -] 6.25 mg PO DAILY 01/21/19 Clopidogrel Bisulfate [Plavix] 75 mg PO DAILY 01/21/19 Labetalol HCl [Normodyne -] 200 mg PO DAILY 01/21/19 Amlodipine Besylate 10 mg PO DAILY 04/17/19 Azithromycin 250 mg PO DAILY 04/17/19 Benzonatate 04/17/19 Doxazosin Mesylate [Cardura -] 2 mg PO DAILY 04/17/19 Polyvinyl Alcohol [Artificial 1 drop OU QID 04/19/19 Tears] Travoprost [Travatan Z] 1 drop OU DAILY 04/19/19 Allergies Allergy/AdvReac Type Severity Reaction Status Date / Time No Known Allergies Allergy Verified 01/21/19 17:21 REVIEW OF SYSTEMS: CONSTITUTIONAL: Absent: fever, chills, diaphoresis, generalized weakness, malaise, loss of appetite, weight change CARDIOVASCULAR: Absent: chest pain, syncope, palpitations, irregular heart rate, lightheadedness , peripheral edema RESPIRATORY: Absent: cough, shortness of breath, dyspnea with exertion, wheezing, stridor, hemoptysis GASTROINTESTINAL: Absent: abdominal pain, abdominal distension, nausea, vomiting, diarrhea, constipation, melena, hematochezia PHYSICAL EXAM: GENERAL: Awake, alert, and fully oriented, in no acute distress. HEAD: Normal with no signs of trauma. EYES: PERRL, sclera anicteric, conjunctiva clear. NECK: Normal ROM LUNGS: Clear to auscultation bilat anteriorly. No wheezes, and no crackles. No accessory muscle use. HEART: Regular rate and rhythm. ABDOMEN: Soft, nontender, not distended, no guarding, no rebound, no masses. No organomegaly. MUSCULOSKELETAL: Normal ROM at all joints. No bony deformities or tenderness. No CVA tenderness. UPPER EXTREMITIES: warm, well-perfused. No cyanosis. Cap refill <2 seconds. No peripheral edema. LOWER EXTREMITIES: warm, well-perfused. No calf tenderness. NEUROLOGICAL: Normal speech, gait not observed. PSYCH: Cooperative. Good eye contact. Appropriate mood and affect. SKIN: Warm, dry, normal turgor, no rashes or lesions noted. Vital Signs Temperature 97.8 F 04/24/19 06:00 Pulse Rate 73 04/24/19 06:00 Respiratory Rate 20 04/24/19 06:00 Blood Pressure 156/79 04/24/19 06:00 O2 Sat by Pulse Oximetry (%) 97 04/23/19 21:00 Lab Results WBC 14.2 K/mm3 (4.0-10.0) H 04/23/19 08:00 RBC 5.55 M/mm3 (4.00-5.60) 04/23/19 08:00 Hgb 15.3 GM/dL (11.7-16.9) 04/23/19 08:00 Hct 46.0 % (35.4-49) 04/23/19 08:00 MCV 83.0 fl (80-96) 04/23/19 08:00 MCHC 33.3 g/dl (32.0-35.9) 04/23/19 08:00 RDW 14.3 % (11.9-15.9) 04/23/19 08:00 Plt Count 338 K/MM3 (134-434) 04/23/19 08:00 Sodium 138 mmol/L (136-145) 04/23/19 08:00 Potassium 4.0 mmol/L (3.5-5.1) 04/23/19 08:00 Chloride 95 mmol/L (98-107) L 04/23/19 08:00 Carbon Dioxide 36 mmol/L (21-32) H 04/23/19 08:00 Anion Gap 7 MMOL/L (8-16) L 04/23/19 08:00 BUN 23.8 mg/dL (7-18) H 04/23/19 08:00 Creatinine 0.7 mg/dL (0.55-1.3) 04/23/19 08:00 Random Glucose 98 mg/dL (74-106) 04/23/19 08:00 Calcium 9.6 mg/dL (8.5-10.1) 04/23/19 08:00 INR 1.08 (0.83-1.09) 04/17/19 08:05 CT Abd/pel: shows 3.9cm infrarenal AAA, changed from 3.5cm in September 2018. Problem List - Problems (1) Abdominal aortic aneurysm (AAA) Assessment/Plan: Plan -no need for acute surgical intervention at this time, but pt will need follow up radiological evaluation. Recommend pt follow up with Dr. Mcrae in clinic for follow up Aortic US to evaluate interval changes. -continue BP control -contact vascular team if any acute changes to condition. Pt discussed with Dr. Mcrae who agrees with plan. Code(s): I71.4 - ABDOMINAL AORTIC ANEURYSM, WITHOUT RUPTURE
--- NOTE | 2019-04-24 10:48 | PN ---
Progress Note, Physician History of Present Illness: 84y M history of CHF, prior CVA, HTN, HLD, COPD (on no 02), dementia presenting with complaint of confusion/cough for the past four days associated with fever presents with increasing sob and nonproductive cough. Pt denies any chest pain, n/v, diaphoreis, abd pain, back pain, new leg swelling always has baseline swelling). no sick contacts or recent hospitalizations PMD: Dr. Delcid Pulm: Dr. Nickerson PMH Past medical history Major events LE angio 02/21/2015 Dr. Alcazar Left EIA/[employer] DCB 08/10/2014 Dr Alcazar PCI LCx 09/20/2014 Dr Alcazar Ongoing medical problems Claudication, intermittent HTN Hyperlipidemia TIA/CVA 3.3 cm AAA August 2017 - Current Medication List Current Medications: Active Medications Acetaminophen (Tylenol -) 650 mg PO TID PRN PRN Reason: FEVER Albuterol/Ipratropium (Duoneb -) 1 amp NEB RQID [facility] Last Admin: 04/24/19 08:00 Dose: 1 amp Amlodipine Besylate (Norvasc -) 5 mg PO DAILY [facility] Last Admin: 04/24/19 10:14 Dose: 5 mg Artificial Tears (Artificial Tears) 1 drop OU QID [facility] Last Admin: 04/23/19 22:30 Dose: 1 drop Aspirin (Asa -) 81 mg PO DAILY [facility] Last Admin: 04/24/19 10:13 Dose: 81 mg Atorvastatin Calcium (Lipitor -) 40 mg PO HS [facility] Last Admin: 04/23/19 22:26 Dose: 40 mg Budesonide/Formoterol Fumarate (Symbicort 160/4.5mcg -) 1 puff IH BID [facility] Last Admin: 04/23/19 22:30 Dose: 1 puff Carvedilol (Coreg -) 6.25 mg PO BID [facility] Last Admin: 04/24/19 10:14 Dose: 6.25 mg Cefuroxime Axetil (Ceftin -) 500 mg PO BID [facility] Last Admin: 04/24/19 10:13 Dose: 500 mg Clopidogrel Bisulfate (Plavix -) 75 mg PO DAILY [facility] Last Admin: 04/24/19 10:13 Dose: 75 mg Donepezil HCl (Aricept -) 5 mg PO DAILY [facility] Last Admin: 04/24/19 10:14 Dose: 5 mg Doxazosin Mesylate (Cardura -) 2 mg PO HS [facility] Last Admin: 04/23/19 22:27 Dose: 2 mg Famotidine (Pepcid -) 20 mg PO DAILY [facility] Last Admin: 04/24/19 10:13 Dose: 20 mg Furosemide (Lasix Injection -) 40 mg IVPUSH DAILY [facility] Last Admin: 04/24/19 10:15 Dose: 40 mg Guaifenesin (Robitussin -) 10 ml PO Q6H PRN PRN Reason: COUGH Last Admin: 04/24/19 02:42 Dose: 10 ml Insulin Aspart (Novolog Vial Sliding Scale -) 1 vial SQ [facility]; Protocol Last Admin: 04/24/19 06:33 Dose: Not Given Latanoprost (Xalatan 0.005% Eye Drops -) 1 drop OU [facility] Last Admin: 04/23/19 22:30 Dose: 1 drop Lisinopril (Prinivil) 5 mg PO DAILY [facility] Last Admin: 04/24/19 10:13 Dose: 5 mg Montelukast Sodium (Singulair -) 10 mg PO HS [facility] Last Admin: 04/23/19 22:26 Dose: 10 mg Prednisone (Deltasone -) 30 mg PO DAILY [facility] Last Admin: 04/24/19 10:14 Dose: 30 mg - Objective Vital Signs: Vital Signs Temperature 97.8 F 04/24/19 06:00 Pulse Rate 73 04/24/19 06:00 Respiratory Rate 20 04/24/19 06:00 Blood Pressure 156/79 04/24/19 06:00 O2 Sat by Pulse Oximetry (%) 97 04/23/19 21:00 Eyes: Yes: WNL, Conjunctiva Clear, EOM Intact HENT: Yes: WNL, Atraumatic, Normocephalic Neck: Yes: WNL, Supple, Trachea Midline Cardiovascular: Yes: WNL, Regular Rate and Rhythm Respiratory: Yes: WNL, Regular, CTA Bilaterally Gastrointestinal: Yes: WNL, Normal Bowel Sounds Genitourinary: Yes: WNL Musculoskeletal: Yes: WNL Extremities: Yes: WNL Edema: Yes Integumentary: Yes: WNL Neurological: Yes: WNL, Alert, Oriented ...Motor Strength: WNL Psychiatric: Yes: WNL Labs: CBC, BMP 04/23/19 08:00 04/23/19 08:00 INR, PTT INR 1.08 (0.83-1.09) 04/17/19 08:05 Problem List - Problems (1) Abdominal aneurysm Code(s): I71.4 - ABDOMINAL AORTIC ANEURYSM, WITHOUT RUPTURE (2) Abdominal aortic aneurysm (AAA) Code(s): I71.4 - ABDOMINAL AORTIC ANEURYSM, WITHOUT RUPTURE (3) Abdominal pain Code(s): R10.9 - UNSPECIFIED ABDOMINAL PAIN (4) Abnormal liver function tests Code(s): R94.5 - ABNORMAL RESULTS OF LIVER FUNCTION STUDIES (5) Acute CHF (congestive heart failure) Code(s): I50.9 - HEART FAILURE, UNSPECIFIED (6) Acute bronchitis Code(s): J20.9 - ACUTE BRONCHITIS, UNSPECIFIED (7) Acute exacerbation of chronic obstructive pulmonary disease (COPD) Code(s): J44.1 - CHRONIC OBSTRUCTIVE PULMONARY DISEASE W (ACUTE) EXACERBATION (8) Acute on chronic respiratory failure with hypoxemia Code(s): J96.21 - ACUTE AND CHRONIC RESPIRATORY FAILURE WITH HYPOXIA (9) Aspiration into airway Code(s): T17.908A - UNSP FB IN RESP TRACT, PART UNSP CAUSING OTH INJURY, INIT (10) Asymptomatic bacteriuria Code(s): R82.71 - BACTERIURIA (11) Atopic dermatitis Code(s): L20.9 - ATOPIC DERMATITIS, UNSPECIFIED Qualifiers: Atopic dermatitis type: unspecified Qualified Code(s): L20.9 - Atopic dermatitis, unspecified (12) Bacteremia Code(s): R78.81 - BACTEREMIA (13) Bandemia Code(s): D72.825 - BANDEMIA (14) Benign localized hyperplasia of prostate with urinary obstruction Code(s): N40.1 - BENIGN PROSTATIC HYPERPLASIA WITH LOWER URINARY TRACT SYMP; N13.8 - OTHER OBSTRUCTIVE AND REFLUX UROPATHY (15) Bilateral leg weakness Code(s): M62.81 - MUSCLE WEAKNESS (GENERALIZED) (16) Blister Code(s): T14.8XXA - OTHER INJURY OF UNSPECIFIED BODY REGION, INITIAL ENCOUNTER (17) CHF (congestive heart failure) Code(s): I50.9 - HEART FAILURE, UNSPECIFIED Qualifiers: Heart failure type: unspecified Heart failure chronicity: chronic Qualified Code(s): I50.9 - Heart failure, unspecified (18) COPD exacerbation Code(s): J44.1 - CHRONIC OBSTRUCTIVE PULMONARY DISEASE W (ACUTE) EXACERBATION (19) CVA (cerebral infarction) Code(s): I63.9 - CEREBRAL INFARCTION, UNSPECIFIED (20) Cerebral aneurysm Code(s): I67.1 - CEREBRAL ANEURYSM, NONRUPTURED (21) Chronic obstructive pulmonary disease Code(s): J44.9 - CHRONIC OBSTRUCTIVE PULMONARY DISEASE, UNSPECIFIED (22) Complication of Chavarria catheter Code(s): T83.9XXA - UNSP COMPLICATION OF GENITOURINARY PROSTH DEV/GRFT, INIT (23) Constipation Code(s): K59.00 - CONSTIPATION, UNSPECIFIED (24) Dehydration Code(s): E86.0 - DEHYDRATION (25) Dementia Code(s): F03.90 - UNSPECIFIED DEMENTIA WITHOUT BEHAVIORAL DISTURBANCE (26) Depression Code(s): F32.9 - MAJOR DEPRESSIVE DISORDER, SINGLE EPISODE, UNSPECIFIED (27) Diastolic CHF Code(s): I50.30 - UNSPECIFIED DIASTOLIC (CONGESTIVE) HEART FAILURE (28) Distended bladder Code(s): N32.89 - OTHER SPECIFIED DISORDERS OF BLADDER (29) Dysphagia Code(s): R13.10 - DYSPHAGIA, UNSPECIFIED (30) Dysphagia Code(s): R13.10 - DYSPHAGIA, UNSPECIFIED Qualifiers: Dysphagia type: unspecified Qualified Code(s): R13.10 - Dysphagia, unspecified (31) Elevated LFTs Code(s): R79.89 - OTHER SPECIFIED ABNORMAL FINDINGS OF BLOOD CHEMISTRY (32) Fall Code(s): W19.XXXA - UNSPECIFIED FALL, INITIAL ENCOUNTER Qualifiers: Encounter type: initial encounter Qualified Code(s): W19.XXXA - Unspecified fall, initial encounter (33) Traphill cardiac risk >20% in next 10 years Code(s): Z91.89 - OTH PERSONAL RISK FACTORS, NOT ELSEWHERE CLASSIFIED (34) Gross hematuria Code(s): R31.0 - GROSS HEMATURIA (35) HTN (hypertension) Code(s): I10 - ESSENTIAL (PRIMARY) HYPERTENSION (36) Hyperbilirubinemia Code(s): E80.6 - OTHER DISORDERS OF BILIRUBIN METABOLISM (37) Hyperglycemia Code(s): R73.9 - HYPERGLYCEMIA, UNSPECIFIED (38) Hyperlipemia, mixed Code(s): E78.2 - MIXED HYPERLIPIDEMIA (39) Hyperlipidemia Code(s): E78.5 - HYPERLIPIDEMIA, UNSPECIFIED (40) Hypernatremia Code(s): E87.0 - HYPEROSMOLALITY AND HYPERNATREMIA (41) Hypoalbuminemia Code(s): E88.09 - OTH DISORDERS OF PLASMA-PROTEIN METABOLISM, NEC (42) Hypokalemia Code(s): E87.6 - HYPOKALEMIA (43) Hypokalemia due to inadequate potassium intake Code(s): E87.6 - HYPOKALEMIA (44) Hypomagnesemia Code(s): E83.42 - HYPOMAGNESEMIA (45) Hypophosphatemia Code(s): E83.39 - OTHER DISORDERS OF PHOSPHORUS METABOLISM (46) Hypothyroid Code(s): E03.9 - HYPOTHYROIDISM, UNSPECIFIED (47) 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 Code(s): I87.332 - CHRONIC VENOUS HTN W ULCER AND INFLAMMATION OF L LOW EXTREM; L97.929 - NON-PRS CHRONIC ULC UNSP PRT OF L LOW LEG W UNSP SEVERITY (48) Ileus following gastrointestinal surgery Code(s): K91.3 - POSTPROCEDURAL INTESTINAL OBSTRUCTION * DO NOT USE * (49) Osteoporosis Code(s): M81.0 - AGE-RELATED OSTEOPOROSIS W/O CURRENT PATHOLOGICAL FRACTURE (50) PSVT (paroxysmal supraventricular tachycardia) Code(s): I47.1 - SUPRAVENTRICULAR TACHYCARDIA (51) Pneumatosis intestinalis Code(s): K63.89 - OTHER SPECIFIED DISEASES OF INTESTINE (52) Pneumonia Code(s): J18.9 - PNEUMONIA, UNSPECIFIED ORGANISM Qualifiers: Pneumonia type: aspiration pneumonia Aspiration pneumonia type: unspecified Laterality: bilateral Lung location: unspecified part of lung Qualified Code(s): J69.0 - Pneumonitis due to inhalation of food and vomit (53) Prostate cancer Code(s): C61 - MALIGNANT NEOPLASM OF PROSTATE (54) Renal calculi Code(s): N20.0 - CALCULUS OF KIDNEY (55) Right hip pain Code(s): M25.551 - PAIN IN RIGHT HIP (56) Right leg pain Code(s): M79.604 - PAIN IN RIGHT LEG (57) S/P percutaneous endoscopic gastrostomy (PEG) tube placement Code(s): Z93.1 - GASTROSTOMY STATUS (58) SBO (small bowel obstruction) Code(s): K56.69 - OTHER INTESTINAL OBSTRUCTION * DO NOT USE * (59) Silent aspiration Code(s): T17.900A - UNSP FB IN RESP TRACT, PART UNSP CAUSING ASPHYX, INIT (60) Small bowel mass Code(s): K63.89 - OTHER SPECIFIED DISEASES OF INTESTINE (61) Stricture intestinal Code(s): K56.699 - OTHER INTESTNL OBST UNSP TO PARTIAL VERSUS COMPLETE OBST (62) TIA (transient ischemic attack) Code(s): G45.9 - TRANSIENT CEREBRAL ISCHEMIC ATTACK, UNSPECIFIED (63) Upper respiratory disease Code(s): J39.9 - DISEASE OF UPPER RESPIRATORY TRACT, UNSPECIFIED (64) Urinary retention Code(s): R33.9 - RETENTION OF URINE, UNSPECIFIED (65) Urinary retention due to benign prostatic hyperplasia Code(s): N40.1 - BENIGN PROSTATIC HYPERPLASIA WITH LOWER URINARY TRACT SYMP; R33.8 - OTHER RETENTION OF URINE (66) Urinary tract infection Code(s): N39.0 - URINARY TRACT INFECTION, SITE NOT SPECIFIED Qualifiers: Urinary tract infection type: acute cystitis Hematuria presence: with hematuria Qualified Code(s): N30.01 - Acute cystitis with hematuria (67) Venous (peripheral) insufficiency Code(s): I87.2 - VENOUS INSUFFICIENCY (CHRONIC) (PERIPHERAL) (68) Venous insufficiency Code(s): I87.2 - VENOUS INSUFFICIENCY (CHRONIC) (PERIPHERAL) (69) Wasting syndrome Code(s): R64 - CACHEXIA (70) Weakness Code(s): R53.1 - WEAKNESS Assessment/Plan - Problems (1) Acute on chronic diastolic (congestive) heart failure Assessment/Plan: On Coreg, Lasix, amlodipine, prinivil. Consider stopping Cardura (may increase CHF), unless needed for other reasons. Code(s): I50.33 - ACUTE ON CHRONIC DIASTOLIC (CONGESTIVE) HEART FAILURE (2) Acute bronchitis Code(s): J20.9 - ACUTE BRONCHITIS, UNSPECIFIED (3) Acute exacerbation of chronic obstructive pulmonary disease (COPD) Code(s): J44.1 - CHRONIC OBSTRUCTIVE PULMONARY DISEASE W (ACUTE) EXACERBATION (4) Dementia Code(s): F03.90 - UNSPECIFIED DEMENTIA WITHOUT BEHAVIORAL DISTURBANCE (5) Weakness Code(s): R53.1 - WEAKNESS
[2019-04-24] MEDS: ARTIFICIAL TEARS (POLYVINYL ALCOHOL) OPTH DROPS OU SCH ×4 (11:27→21:31)
[2019-04-24] MEDS: BUDESONIDE/FORMETEROL FUMARATE 160/4.5 mcg INHALER IH SCH ×2 (11:28→21:31)
--- NOTE | 2019-04-24 12:36 | PN ---
Progress Note (short form) - Note Progress Note: PULMONARY Nauseous but denies shortness of breath, cough. Vital Signs Period Temp Pulse Resp BP Sys/Hernandez Pulse Ox Last 24 Hr 97.8 F-98.8 F 73-85 18-20 126-156/71-79 97 Gen: NAD at rest Heart: RRR Lung: decreased breath sounds at the bases Abd: soft, nontender Ext: no edema CBC, BMP 04/23/19 08:00 04/23/19 08:00 Active Medications Acetaminophen (Tylenol -) 650 mg PO TID PRN PRN Reason: FEVER Albuterol/Ipratropium (Duoneb -) 1 amp NEB RQID [facility] Last Admin: 04/24/19 12:00 Dose: 1 amp Amlodipine Besylate (Norvasc -) 5 mg PO DAILY [facility] Last Admin: 04/24/19 10:14 Dose: 5 mg Artificial Tears (Artificial Tears) 1 drop OU QID [facility] Last Admin: 04/24/19 11:27 Dose: 1 drop Aspirin (Asa -) 81 mg PO DAILY [facility] Last Admin: 04/24/19 10:13 Dose: 81 mg Atorvastatin Calcium (Lipitor -) 40 mg PO HS [facility] Last Admin: 04/23/19 22:26 Dose: 40 mg Budesonide/Formoterol Fumarate (Symbicort 160/4.5mcg -) 1 puff IH BID [facility] Last Admin: 04/24/19 11:28 Dose: 1 puff Carvedilol (Coreg -) 6.25 mg PO BID [facility] Last Admin: 04/24/19 10:14 Dose: 6.25 mg Cefuroxime Axetil (Ceftin -) 500 mg PO BID [facility] Last Admin: 04/24/19 10:13 Dose: 500 mg Clopidogrel Bisulfate (Plavix -) 75 mg PO DAILY [facility] Last Admin: 04/24/19 10:13 Dose: 75 mg Donepezil HCl (Aricept -) 5 mg PO DAILY [facility] Last Admin: 04/24/19 10:14 Dose: 5 mg Doxazosin Mesylate (Cardura -) 2 mg PO HS [facility] Last Admin: 04/23/19 22:27 Dose: 2 mg Famotidine (Pepcid -) 20 mg PO DAILY [facility] Last Admin: 04/24/19 10:13 Dose: 20 mg Furosemide (Lasix Injection -) 40 mg IVPUSH DAILY [facility] Last Admin: 04/24/19 10:15 Dose: 40 mg Guaifenesin (Robitussin -) 10 ml PO Q6H PRN PRN Reason: COUGH Last Admin: 04/24/19 02:42 Dose: 10 ml Insulin Aspart (Novolog Vial Sliding Scale -) 1 vial SQ ACHS [facility]; Protocol Last Admin: 04/24/19 11:50 Dose: Not Given Latanoprost (Xalatan 0.005% Eye Drops -) 1 drop OU HS [facility] Last Admin: 04/23/19 22:30 Dose: 1 drop Lisinopril (Prinivil) 5 mg PO DAILY [facility] Last Admin: 04/24/19 10:13 Dose: 5 mg Montelukast Sodium (Singulair -) 10 mg PO HS [facility] Last Admin: 04/23/19 22:26 Dose: 10 mg Prednisone (Deltasone -) 30 mg PO DAILY [facility] Last Admin: 04/24/19 10:14 Dose: 30 mg A/P Acute COPD Exacerbation Acute on Chronic Diastolic Heart Failure Pneumonia Lung Nodule HTN h/o Prostate Ca AAA - prednisone taper - inhaled bronchodilators - complete antibiotics - continue lasix - monitor urine output, creatinine - DVT prophylaxis - outpt f/u of lung nodule
[2019-04-24] MEDS ORDERED: ONDANSETRON 4 MG/2 ML VIAL IVPB PRN (15:36)
[2019-04-24] MEDS ORDERED: PT OWN MED DRAWER 7, Y5N ONE (21:13)
[2019-04-24] MEDS: ATORVASTATIN CA 40 MG TABLET (FP) PO SCH (21:26)
[2019-04-24] MEDS: DOXAZOSIN MESYLATE 2 MG TABLET (FP) PO SCH (21:26)
[2019-04-24] MEDS: MONTELUKAST NA 10 MG TABLET PO SCH (21:26)
[2019-04-24] MEDS: LATANOPROST 0.005% OPHTH SOLN 2.5ML BOTTLE OU SCH (21:32)
[2019-04-25] MEDS: INSULIN SLIDING SCALE (NOVOLOG) 1 VIAL SQ SCH ×4 (06:59→21:00)
[2019-04-25] MEDS: ALBUTEROL SO4 2.5/IPRATROPIUM 0.5 INH SOL 3 ML VIAL.NEB. NEB SCH ×3 (08:00→20:10)
--- NOTE | 2019-04-25 08:16 | PN ---
Progress Note, Physician Chief Complaint: pt vomited after lunch yesterday; repeat CXR no changes; no abd pain no N/V today, on clear fluids (said he did not like the soup yesterday) - Current Medication List Current Medications: Active Medications Acetaminophen (Tylenol -) 650 mg PO TID PRN PRN Reason: FEVER Albuterol/Ipratropium (Duoneb -) 1 amp NEB RQID [facility] Last Admin: 04/24/19 21:01 Dose: Not Given Amlodipine Besylate (Norvasc -) 5 mg PO DAILY [facility] Last Admin: 04/24/19 10:14 Dose: 5 mg Artificial Tears (Artificial Tears) 1 drop OU QID [facility] Last Admin: 04/24/19 21:31 Dose: 1 drop Aspirin (Asa -) 81 mg PO DAILY [facility] Last Admin: 04/24/19 10:13 Dose: 81 mg Atorvastatin Calcium (Lipitor -) 40 mg PO HS [facility] Last Admin: 04/24/19 21:26 Dose: 40 mg Budesonide/Formoterol Fumarate (Symbicort 160/4.5mcg -) 1 puff IH BID [facility] Last Admin: 04/24/19 21:31 Dose: 1 puff Carvedilol (Coreg -) 6.25 mg PO BID [facility] Last Admin: 04/24/19 21:26 Dose: 6.25 mg Clopidogrel Bisulfate (Plavix -) 75 mg PO DAILY [facility] Last Admin: 04/24/19 10:13 Dose: 75 mg Donepezil HCl (Aricept -) 5 mg PO DAILY [facility] Last Admin: 04/24/19 10:14 Dose: 5 mg Doxazosin Mesylate (Cardura -) 2 mg PO HS [facility] Last Admin: 04/24/19 21:26 Dose: 2 mg Famotidine (Pepcid -) 20 mg PO DAILY [facility] Last Admin: 04/24/19 10:13 Dose: 20 mg Furosemide (Lasix Injection -) 40 mg IVPUSH DAILY [facility] Last Admin: 04/24/19 10:15 Dose: 40 mg Guaifenesin (Robitussin -) 10 ml PO Q6H PRN PRN Reason: COUGH Last Admin: 04/24/19 17:48 Dose: 10 ml Insulin Aspart (Novolog Vial Sliding Scale -) 1 vial SQ [facility]; Protocol Last Admin: 04/25/19 06:59 Dose: 2 units Latanoprost (Xalatan 0.005% Eye Drops -) 1 drop OU HS [facility] Last Admin: 04/24/19 21:32 Dose: 1 drop Lisinopril (Prinivil) 5 mg PO DAILY [facility] Last Admin: 04/24/19 10:13 Dose: 5 mg Montelukast Sodium (Singulair -) 10 mg PO HS [facility] Last Admin: 04/24/19 21:26 Dose: 10 mg Ondansetron HCl (Zofran Injection) 8 mg IVPB Q8H PRN PRN Reason: NAUSEA AND/OR VOMITING Last Admin: 04/24/19 15:51 Dose: 8 mg Polyethylene Glycol (Miralax (For Daily Use) -) 17 gm PO DAILY [facility] Prednisone (Deltasone -) 30 mg PO DAILY [facility] Last Admin: 04/24/19 10:14 Dose: 30 mg - Objective Vital Signs: Vital Signs Temperature 98.3 F 04/25/19 05:00 Pulse Rate 71 04/25/19 05:00 Respiratory Rate 18 04/25/19 05:00 Blood Pressure 135/73 04/25/19 05:00 O2 Sat by Pulse Oximetry (%) 94 L 04/24/19 21:00 Constitutional: Yes: No Distress, Calm Eyes: Yes: Conjunctiva Clear HENT: Yes: Atraumatic Neck: Yes: Supple Cardiovascular: Yes: Regular Rate and Rhythm Respiratory: Yes: CTA Bilaterally Gastrointestinal: Yes: Soft. No: Tenderness Genitourinary: No: Hematuria Musculoskeletal: No: Joint Stiffness, Joint Swelling Extremities: No: Cold, Cool, Cyanosis Edema: No Neurological: Yes: Alert ...Motor Strength: WNL Psychiatric: Yes: Alert Labs: CBC, BMP 04/23/19 08:00 04/23/19 08:00 INR, PTT INR 1.08 (0.83-1.09) 04/17/19 08:05 - ....Imaging Other: Report Reviewed Assessment/Plan 84y M history of CHF, prior CVA, HTN, HLD, COPD (on no 02), dementia, prostate CA, h/o PEG / aspiration PNA few years ago - presenting with complaint of confusion/cough for the past four days associated with fever presents with increasing sob and nonproductive cough. vomited once; clear fluids diet; advance diet as tolerated; stools softeners po d/w staff confusion: head CT negative; neuro f/u; start aricept CHF legs edema improved po lasix and legs elevation, TEDs to legs also (d/w pt to use them home too) abd CT inguinal hernia not incarcerated no obstruction ; nonemergent surgical eval - will need surgery f/u outpt infrarenal aortic aneurysm - vascular sx eval- outpt f/u ID, pulmonary and cardiology f/u; improved with current treatment; high LFts h/o prostate CA will need and GI f/u outpt PT rehab home, VNS; DC planning home d/w pt and staff d/w pt's Rachael / phone all the above
--- NOTE | 2019-04-25 08:17 | PN ---
Progress Note (short form) - Note Progress Note: Neurology - Primary Care Physician PCP: Gini Delcid S - Admission Chief Complaint: cough SOB fever History of Present Illness: 84y M history of CHF, prior CVA, HTN, HLD, COPD (on room air), dementia, prostate CA, h/o PEG /aspiration PNA few years ago, presented with complaint of confusion/cough for the past week prior to admission, associated with fever, and increasing sob with nonproductive cough. Pt denied any chest pain, n/v, diaphoreis, abd pain, back pain; has chronic both legs swelling (always has baseline swelling). no sick contacts or recent hospitalizations. his called Dr. Delcid few days ago prior to admission and Heriberto ordered po but he did not take it; instead she brought him to ER. Patient labs indicate HA1C 7.2 and elevated BNP. Patient labs currently indicate elevated BUN 23.8 and LFTS slightly elevated, trending up. Consulted for evaluation of mental status. Was able to telll me he's at [place]. Head CT completed, indicates chronic microvascular changes and calcified aneurysm with no gross interval changes. Ultrasound of pelvis ordered, results pending. ID note reviewed, received ABX for presumed community acquired PNA which is likely etiology to his mental status. WBC trending up. Calm aand cooperative this morning, no acute events overnight, mental status seems at or near baseline. Knows he's in the hospital, can tell me month, has some trouble with year still. Frustrated that he has IV and not ambulating much but otherwise at baseline. Active Medications Acetaminophen (Tylenol -) 650 mg PO TID PRN PRN Reason: FEVER Albuterol/Ipratropium (Duoneb -) 1 amp NEB RQID [facility] Last Admin: 04/24/19 21:01 Dose: Not Given Amlodipine Besylate (Norvasc -) 5 mg PO DAILY [facility] Last Admin: 04/24/19 10:14 Dose: 5 mg Artificial Tears (Artificial Tears) 1 drop OU QID [facility] Last Admin: 04/24/19 21:31 Dose: 1 drop Aspirin (Asa -) 81 mg PO DAILY [facility] Last Admin: 04/24/19 10:13 Dose: 81 mg Atorvastatin Calcium (Lipitor -) 40 mg PO HS [facility] Last Admin: 04/24/19 21:26 Dose: 40 mg Budesonide/Formoterol Fumarate (Symbicort 160/4.5mcg -) 1 puff IH BID [facility] Last Admin: 04/24/19 21:31 Dose: 1 puff Carvedilol (Coreg -) 6.25 mg PO BID [facility] Last Admin: 04/24/19 21:26 Dose: 6.25 mg Clopidogrel Bisulfate (Plavix -) 75 mg PO DAILY [facility] Last Admin: 04/24/19 10:13 Dose: 75 mg Docusate Sodium (Colace -) 100 mg PO DAILY [facility] Donepezil HCl (Aricept -) 5 mg PO DAILY [facility] Last Admin: 04/24/19 10:14 Dose: 5 mg Doxazosin Mesylate (Cardura -) 2 mg PO HS [facility] Last Admin: 04/24/19 21:26 Dose: 2 mg Famotidine (Pepcid -) 20 mg PO DAILY [facility] Last Admin: 04/24/19 10:13 Dose: 20 mg Furosemide (Lasix Injection -) 40 mg IVPUSH DAILY [facility] Last Admin: 04/24/19 10:15 Dose: 40 mg Guaifenesin (Robitussin -) 10 ml PO Q6H PRN PRN Reason: COUGH Last Admin: 04/24/19 17:48 Dose: 10 ml Insulin Aspart (Novolog Vial Sliding Scale -) 1 vial SQ [facility]; Protocol Last Admin: 04/25/19 06:59 Dose: 2 units Latanoprost (Xalatan 0.005% Eye Drops -) 1 drop OU HS [facility] Last Admin: 04/24/19 21:32 Dose: 1 drop Lisinopril (Prinivil) 5 mg PO DAILY [facility] Last Admin: 04/24/19 10:13 Dose: 5 mg Montelukast Sodium (Singulair -) 10 mg PO HS [facility] Last Admin: 04/24/19 21:26 Dose: 10 mg Ondansetron HCl (Zofran Injection) 8 mg IVPB Q8H PRN PRN Reason: NAUSEA AND/OR VOMITING Last Admin: 04/24/19 15:51 Dose: 8 mg Polyethylene Glycol (Miralax (For Daily Use) -) 17 gm PO DAILY [facility] Prednisone (Deltasone -) 30 mg PO DAILY [facility] Last Admin: 04/24/19 10:14 Dose: 30 mg Physical Examination Vital Signs: Vital Signs Period Temp Pulse Resp BP Sys/Hernandez Pulse Ox Last 24 Hr 97.5 F-98.4 F 69-75 18-20 130-138/58-73 94-95 Constitutional: Yes: No Distress, Calm Eyes: Yes: Conjunctiva Clear HENT: Yes: Atraumatic Neck: Yes: Supple Cardiovascular: Yes: Regular Rate and Rhythm Respiratory: Yes: Diminished Gastrointestinal: Yes: Soft. No: Tenderness Renal/: No: Hematuria Musculoskeletal: No: Joint Stiffness, Joint Swelling Extremities: No: Cold, Cool Edema: Yes (1+ pretibial bilateral) Integumentary: No: Rash, Venous Stasis Changes Neurological: Awake, alert, moves all extremities equally, sensory intact, finger to nose normal, gait deferred Labs: CBCD WBC 14.2 K/mm3 (4.0-10.0) H 04/23/19 08:00 RBC 5.55 M/mm3 (4.00-5.60) 04/23/19 08:00 Hgb 15.3 GM/dL (11.7-16.9) 04/23/19 08:00 Hct 46.0 % (35.4-49) 04/23/19 08:00 MCV 83.0 fl (80-96) 04/23/19 08:00 MCHC 33.3 g/dl (32.0-35.9) 04/23/19 08:00 RDW 14.3 % (11.9-15.9) 04/23/19 08:00 Plt Count 338 K/MM3 (134-434) 04/23/19 08:00 MPV 7.3 fl (7.5-11.1) L 04/23/19 08:00 CMP Sodium 138 mmol/L (136-145) 04/23/19 08:00 Potassium 4.0 mmol/L (3.5-5.1) 04/23/19 08:00 Chloride 95 mmol/L (98-107) L 04/23/19 08:00 Carbon Dioxide 36 mmol/L (21-32) H 04/23/19 08:00 Anion Gap 7 MMOL/L (8-16) L 04/23/19 08:00 BUN 23.8 mg/dL (7-18) H 04/23/19 08:00 Creatinine 0.7 mg/dL (0.55-1.3) 04/23/19 08:00 Random Glucose 98 mg/dL (74-106) 04/23/19 08:00 Calcium 9.6 mg/dL (8.5-10.1) 04/23/19 08:00 Total Bilirubin 0.9 mg/dL (0.2-1) 04/23/19 08:00 AST 39 U/L (15-37) H 04/23/19 08:00 ALT 72 U/L (13-61) H 04/23/19 08:00 Alkaline Phosphatase 95 U/L (45-117) 04/23/19 08:00 Total Protein 5.9 g/dl (6.4-8.2) L 04/23/19 08:00 Albumin 2.7 g/dl (3.4-5.0) L 04/23/19 08:00 CARDIAC ENZYMES Troponin I < 0.02 ng/ml (0.00-0.05) 04/17/19 08:05 Assessment/Plan 84y M history of CHF, prior CVA, HTN, HLD, COPD (on room air), dementia, prostate CA, h/o PEG /aspiration PNA few years ago, presented with complaint of confusion/cough for the past week prior to admission, associated with fever, and increasing sob with nonproductive cough. Pt denied any chest pain, n/v, diaphoreis, abd pain, back pain; has chronic both legs swelling (always has baseline swelling). no sick contacts or recent hospitalizations. his called Dr. Delcid few days ago prior to admission and Heriberto ordered po but he did not take it; instead she brought him to ER. Patient labs indicate HA1C 7.2 and elevated BNP. Patient labs currently indicate elevated BUN 23.8 and LFTS slightly elevated, trending up. Does know name of President though initially response was of negative comments. Head CT completed, indicates chronic microvascular changes and calcified aneurysm with no gross interval changes. Ultrasound of pelvis ordered, results pending. ID note reviewed, received ABX for presumed community acquired PNA which is likely etiology to his mental status. Though not fully at baseline does seem close to it. WBC trending up. Continue infectious optimization, Abx as per primary and ID. Continue hydration , frequent reorientation. Does not require any neurologic medications at this time. More consistent with delirum than dementia. Possibly worse due to unfamilar enviorment though close to baseline for me this AM, likely improving. Frustrated that he has IV and not ambulating much but otherwise at baseline. Should have outpatient follow up for cognitive studies and further evaluation for dementia. Otherwise, neurologically stable at this time
[2019-04-25] MEDS ORDERED: PT OWN MED DRAWER 7, Y5N ONE ×2 (09:27→20:40)
[2019-04-25] MEDS: BUDESONIDE/FORMETEROL FUMARATE 160/4.5 mcg INHALER IH SCH ×2 (09:33→20:59)
[2019-04-25] MEDS: ARTIFICIAL TEARS (POLYVINYL ALCOHOL) OPTH DROPS OU SCH ×4 (09:33→20:59)
[2019-04-25] MEDS: FAMOTIDINE 20 MG TABLET PO SCH (09:33)
[2019-04-25] MEDS: CLOPIDOGREL BISULFATE 75 MG TABLET (FP) PO SCH (09:33)
[2019-04-25] MEDS: LISINOPRIL 5 MG TABLET (FP) PO SCH (09:33)
[2019-04-25] MEDS: amLODIPine BESYLATE 10 MG TABLET (FP) PO SCH (09:34)
[2019-04-25] MEDS: DONEPEZIL HCL 5 MG TABLET (FP) PO SCH (09:34)
[2019-04-25] MEDS: ASPIRIN 81 MG CHEWABLE TABLETS PO SCH (09:34)
[2019-04-25] MEDS: predniSONE 20 MG TABLET (UD) PO SCH (09:34)
[2019-04-25] MEDS: DOCUSATE SODIUM 100 MG CAPSULE (FP) PO SCH (09:34)
[2019-04-25] MEDS: CARVEDILOL 6.25 MG TABLET (FP) PO SCH ×2 (09:34→21:00)
[2019-04-25] MEDS: POLYETHYLENE GLYCOL 3350 119 GM BTL PO SCH (09:35)
[2019-04-25] MEDS: FUROSEMIDE 40 MG/4 ML INJECTABLE VIAL IVPUSH SCH (10:47)
[2019-04-25 11:09] LABS: BASO % 0.1 % (0-2.0); HEMATOCRIT 46.6 % (35.4-49); HEMOGLOBIN 15.3 GM/dL (11.7-16.9); LYMPH % 11.1 % (8-40); MCH 27.5 pg (25.7-33.7); MCHC 32.9 g/dl (32.0-35.9); MEAN CELL VOLUME 83.4 fl (80-96); MEAN PLT VOLUME 7.1 fl (7.5-11.1); MONO % 11.4 % (3.8-10.2); NEUT % 76.4 % (42.8-82.8); PLATELET COUNT 352 K/MM3 (134-434); RBC 5.59 M/mm3 (4.00-5.60); RDW 14.6 % (11.9-15.9); WHITE BLOOD COUNT 10.9 K/mm3 (4.0-10.0)
--- NOTE | 2019-04-25 11:29 | PN ---
Progress Note (short form) - Note Progress Note: PULMONARY Denies shortness of breath, cough or wheezing. Nausea resolved. Vital Signs Period Temp Pulse Resp BP Sys/Hernandez Pulse Ox Last 24 Hr 97.4 F-98.4 F 69-85 18-20 130-138/58-76 94 Gen: NAD at rest Heart: RRR Lung: decreased breath sounds at the bases Abd: soft, nontender Ext: no edema CBC, BMP 04/25/19 10:20 Active Medications Acetaminophen (Tylenol -) 650 mg PO TID PRN PRN Reason: FEVER Albuterol/Ipratropium (Duoneb -) 1 amp NEB RQID [facility] Last Admin: 04/25/19 08:00 Dose: 1 amp Amlodipine Besylate (Norvasc -) 5 mg PO DAILY [facility] Last Admin: 04/25/19 09:34 Dose: 5 mg Artificial Tears (Artificial Tears) 1 drop OU QID [facility] Last Admin: 04/25/19 09:33 Dose: 1 drop Aspirin (Asa -) 81 mg PO DAILY [facility] Last Admin: 04/25/19 09:34 Dose: 81 mg Atorvastatin Calcium (Lipitor -) 40 mg PO HS [facility] Last Admin: 04/24/19 21:26 Dose: 40 mg Budesonide/Formoterol Fumarate (Symbicort 160/4.5mcg -) 1 puff IH BID [facility] Last Admin: 04/25/19 09:33 Dose: 1 puff Carvedilol (Coreg -) 6.25 mg PO BID [facility] Last Admin: 04/25/19 09:34 Dose: 6.25 mg Clopidogrel Bisulfate (Plavix -) 75 mg PO DAILY [facility] Last Admin: 04/25/19 09:33 Dose: 75 mg Docusate Sodium (Colace -) 100 mg PO DAILY [facility] Last Admin: 04/25/19 09:34 Dose: 100 mg Donepezil HCl (Aricept -) 5 mg PO DAILY [facility] Last Admin: 04/25/19 09:34 Dose: 5 mg Doxazosin Mesylate (Cardura -) 2 mg PO HS [facility] Last Admin: 04/24/19 21:26 Dose: 2 mg Famotidine (Pepcid -) 20 mg PO DAILY [facility] Last Admin: 04/25/19 09:33 Dose: 20 mg Furosemide (Lasix Injection -) 40 mg IVPUSH DAILY [facility] Last Admin: 04/25/19 10:47 Dose: 40 mg Guaifenesin (Robitussin -) 10 ml PO Q6H PRN PRN Reason: COUGH Last Admin: 04/24/19 17:48 Dose: 10 ml Insulin Aspart (Novolog Vial Sliding Scale -) 1 vial SQ ACHS [facility]; Protocol Last Admin: 04/25/19 06:59 Dose: 2 units Latanoprost (Xalatan 0.005% Eye Drops -) 1 drop OU HS [facility] Last Admin: 04/24/19 21:32 Dose: 1 drop Lisinopril (Prinivil) 5 mg PO DAILY [facility] Last Admin: 04/25/19 09:33 Dose: 5 mg Montelukast Sodium (Singulair -) 10 mg PO HS [facility] Last Admin: 04/24/19 21:26 Dose: 10 mg Ondansetron HCl (Zofran Injection) 8 mg IVPB Q8H PRN PRN Reason: NAUSEA AND/OR VOMITING Last Admin: 04/24/19 15:51 Dose: 8 mg Polyethylene Glycol (Miralax (For Daily Use) -) 17 gm PO DAILY [facility] Last Admin: 04/25/19 09:35 Dose: 17 grams Prednisone (Deltasone -) 30 mg PO DAILY [facility] Last Admin: 04/25/19 09:34 Dose: 30 mg A/P Acute COPD Exacerbation Acute on Chronic Diastolic Heart Failure Pneumonia Lung Nodule HTN h/o Prostate Ca AAA - prednisone taper - inhaled bronchodilators - completed antibiotics - continue lasix - monitor urine output, creatinine - DVT prophylaxis - outpt f/u of lung nodule
[2019-04-25 11:43] LABS: ALBUMIN 2.6 g/dl (3.4-5.0); BILIRUBIN,TOTAL 1.2 mg/dL (0.2-1); BLOOD UREA NITROGEN 15.2 mg/dL (7-18); CALCIUM 9.2 mg/dL (8.5-10.1); CREATININE 0.8 mg/dL (0.55-1.3); POTASSIUM 3.9 mmol/L (3.5-5.1); TOT PROT 5.8 g/dl (6.4-8.2)
[2019-04-25] MEDS: guaiFENesin 200 MG/10 ML 10 ML UNIT-DOSE CUPS PO PRN (13:32)
[2019-04-25] MEDS ORDERED: INSULIN (NOVOLOG) ASPART 100 UNITS/ML 10ML VIAL ONE (20:39)
[2019-04-25] MEDS: LATANOPROST 0.005% OPHTH SOLN 2.5ML BOTTLE OU SCH (20:59)
[2019-04-25] MEDS: MONTELUKAST NA 10 MG TABLET PO SCH (20:59)
[2019-04-25] MEDS: ATORVASTATIN CA 40 MG TABLET (FP) PO SCH (21:00)
[2019-04-25] MEDS: DOXAZOSIN MESYLATE 2 MG TABLET (FP) PO SCH (21:00)
[2019-04-26] MEDS: INSULIN SLIDING SCALE (NOVOLOG) 1 VIAL SQ SCH ×3 (07:16→16:48)
--- NOTE | 2019-04-26 07:38 | DS ---
Physical Examination Vital Signs: Vital Signs Temperature 98.1 F 04/26/19 05:00 Pulse Rate 73 04/26/19 05:00 Respiratory Rate 18 04/26/19 05:00 Blood Pressure 127/79 04/26/19 05:00 O2 Sat by Pulse Oximetry (%) 100 04/25/19 21:00 Findings/Remarks: in bed awake alert NAD VSS afebrile less cough no SOB on O2 NC; no BM today said he had a "little BM" yesterday; ate ok reg food no N/V/ abdominal pain; is on miralax and colace; pt reused enema; wants to go home; d/w pt's she will pick him up today; has home O2; f/u as advised d/w pt and Constitutional: Yes: No Distress, Calm Eyes: Yes: Conjunctiva Clear HENT: Yes: Atraumatic Neck: Yes: Supple Cardiovascular: Yes: Regular Rate and Rhythm Respiratory: Yes: CTA Bilaterally Gastrointestinal: Yes: Soft. No: Tenderness Renal/: No: Hematuria Musculoskeletal: No: Joint Stiffness, Joint Swelling Extremities: No: Cold, Cool, Cyanosis Edema: No Integumentary: No: Pressure Ulcer, Rash, Venous Stasis Changes Neurological: Yes: Alert ...Motor Strength: WNL Psychiatric: Yes: Alert. No: Agitated, Suicidal Ideation Labs: CBC, BMP 04/25/19 10:20 04/25/19 10:20 Discharge Summary Problems reviewed: Yes Reason For Visit: ACUTE EXACERBATION OF COPD,PNEUMONIA Current Active Problems Acute on chronic diastolic (congestive) heart failure (Acute) COPD exacerbation (Acute) Pulmonary nodule, left (Acute) Procedures: Principal: 84 YOM mutiple comorbidities ASHD CHF COPD OA DJD prostate CA Ao Aneurysm inguinal hernia, admitted with PNA/ COPD exac/ changes mental status; legs edema chronic. Other Procedures: treated with iv steroids, nebs, IV ATB then po; IV lasix; improved with above; developed constipation, treatde with po miralax and colace ; refused enema; to f/u with GI outpt and take stools softeners; po fiber and water d/w pt Hospital Course: seen by cardio, neurology, pulmonary; also seen by vascular sx for aortic aneurysm and gen. surgery for inguinal hernia; outpt f/u advised. Health Concerns: improved with above DC home and f/u as advised. Plan of Treatment: as above; Goals: CHF and COPD control; see above. Condition: Guarded - Instructions Diet, Activity, Other Instructions: f/u PCP cardio pulm GI and neurology in 2-4 weeks surgery f/u inguinal hernia outpt f/u outpt for prostate CA; vascular surgery and aortic US 6 months f/u use O2 NC continuous as advised; falls aspiration decubs prophylaxis; RTER if worse or recurrent c/o Referrals: Jameel Delcid MD [Primary Care Provider] - Jignesh Singletary MD [Staff Physician] - Yemi Sewell MD., MD [Staff Physician] - Tab Hollins MD [Staff Physician] - Lemuel Tinsley MD [Staff Physician] - Eric Rader MD [Staff Physician] - Kwan Butt MD [Staff Physician] - Attila Mcrae DO [Staff Physician] - Disposition: VNS/HOME HEALTH CARE - Home Medications Comprehensive Discharge Medication List: Ambulatory Orders Aspirin [ASA -] 81 mg PO DAILY #90 tab 06/26/17 Budesonide/Formeterol Fumarate [SYMBICORT 160/4.5mcg -] 1 puff IH BID #1 inhaler 06/26/17 Montelukast Na [Singulair -] 10 mg PO HS #30 tablet 06/26/17 Furosemide [Lasix -] 40 mg PO BID tablet 10/10/18 Atorvastatin Ca [Lipitor] 40 mg PO HS 01/21/19 Carvedilol [Coreg -] 6.25 mg PO DAILY 01/21/19 Clopidogrel Bisulfate [Plavix] 75 mg PO DAILY 01/21/19 Amlodipine Besylate 10 mg PO DAILY 04/17/19 Benzonatate 04/17/19 Doxazosin Mesylate [Cardura -] 2 mg PO DAILY 04/17/19 Polyvinyl Alcohol [Artificial Tears] 1 drop OU QID 04/19/19 Travoprost [Travatan Z] 1 drop OU DAILY 04/19/19 Acetaminophen [Tylenol .Regular Strength -] 650 mg PO TID PRN tablet 04/25/19 Carvedilol [Coreg -] 6.25 mg PO BID #180 tablet 04/25/19 Cefuroxime Axetil [Ceftin -] 500 mg PO BID #10 tablet 04/25/19 Docusate Sodium [Colace -] 100 mg PO DAILY capsule 04/25/19 Donepezil HCl [Aricept -] 5 mg PO DAILY tablet 04/25/19 Famotidine [Pepcid -] 20 mg PO DAILY tablet 04/25/19 Guaifenesin [Robitussin -] 10 ml PO Q6H PRN cup 04/25/19 Lisinopril [Prinivil] 5 mg PO DAILY #90 tablet 04/25/19 Polyethylene Glycol 3350 [Miralax 119 gm Btl -] 17 gm PO DAILY bottle 04/25/19 predniSONE [Deltasone -] 10 mg PO DAILY #20 tablet 04/25/19
--- NOTE | 2019-04-26 08:56 | PN ---
Progress Note (short form) - Note Progress Note: Neurology - Primary Care Physician PCP: Gini Delcid S - Admission Chief Complaint: cough SOB fever History of Present Illness: 84y M history of CHF, prior CVA, HTN, HLD, COPD (on room air), dementia, prostate CA, h/o PEG /aspiration PNA few years ago, presented with complaint of confusion/cough for the past week prior to admission, associated with fever, and increasing sob with nonproductive cough. Pt denied any chest pain, n/v, diaphoreis, abd pain, back pain; has chronic both legs swelling (always has baseline swelling). no sick contacts or recent hospitalizations. his called Dr. Delcid few days ago prior to admission and Heriberto ordered po but he did not take it; instead she brought him to ER. Patient labs indicate HA1C 7.2 and elevated BNP. Patient labs currently indicate elevated BUN 23.8 and LFTS slightly elevated, trending up. Consulted for evaluation of mental status. Was able to telll me he's at [place]. Head CT completed, indicates chronic microvascular changes and calcified aneurysm with no gross interval changes. Ultrasound of pelvis ordered, results pending. ID note reviewed, received ABX for presumed community acquired PNA which is likely etiology to his mental status. WBC trending up. Calm aand cooperative this morning, no acute events overnight, possibly for discharge, patient without new complaints. Active Medications Acetaminophen (Tylenol -) 650 mg PO TID PRN PRN Reason: FEVER Albuterol/Ipratropium (Duoneb -) 1 amp NEB RQID [facility] Last Admin: 04/25/19 20:10 Dose: 1 amp Amlodipine Besylate (Norvasc -) 5 mg PO DAILY [facility] Last Admin: 04/25/19 09:34 Dose: 5 mg Artificial Tears (Artificial Tears) 1 drop OU QID [facility] Last Admin: 04/25/19 20:59 Dose: 1 drop Aspirin (Asa -) 81 mg PO DAILY [facility] Last Admin: 04/25/19 09:34 Dose: 81 mg Atorvastatin Calcium (Lipitor -) 40 mg PO HS [facility] Last Admin: 04/25/19 21:00 Dose: 40 mg Budesonide/Formoterol Fumarate (Symbicort 160/4.5mcg -) 1 puff IH BID [facility] Last Admin: 04/25/19 20:59 Dose: 1 puff Carvedilol (Coreg -) 6.25 mg PO BID [facility] Last Admin: 04/25/19 21:00 Dose: 6.25 mg Clopidogrel Bisulfate (Plavix -) 75 mg PO DAILY [facility] Last Admin: 04/25/19 09:33 Dose: 75 mg Docusate Sodium (Colace -) 100 mg PO DAILY [facility] Last Admin: 04/25/19 09:34 Dose: 100 mg Donepezil HCl (Aricept -) 5 mg PO DAILY [facility] Last Admin: 04/25/19 09:34 Dose: 5 mg Doxazosin Mesylate (Cardura -) 2 mg PO HS [facility] Last Admin: 04/25/19 21:00 Dose: 2 mg Famotidine (Pepcid -) 20 mg PO DAILY [facility] Last Admin: 04/25/19 09:33 Dose: 20 mg Furosemide (Lasix Injection -) 40 mg IVPUSH DAILY [facility] Last Admin: 04/25/19 10:47 Dose: 40 mg Guaifenesin (Robitussin -) 10 ml PO Q6H PRN PRN Reason: COUGH Last Admin: 04/25/19 13:32 Dose: 10 ml Insulin Aspart (Novolog Vial Sliding Scale -) 1 vial SQ [facility]; Protocol Last Admin: 04/26/19 07:16 Dose: Not Given Latanoprost (Xalatan 0.005% Eye Drops -) 1 drop OU [facility] Last Admin: 04/25/19 20:59 Dose: 1 drop Lisinopril (Prinivil) 5 mg PO DAILY [facility] Last Admin: 04/25/19 09:33 Dose: 5 mg Montelukast Sodium (Singulair -) 10 mg PO HS [facility] Last Admin: 04/25/19 20:59 Dose: 10 mg Ondansetron HCl (Zofran Injection) 8 mg IVPB Q8H PRN PRN Reason: NAUSEA AND/OR VOMITING Last Admin: 04/24/19 15:51 Dose: 8 mg Polyethylene Glycol (Miralax (For Daily Use) -) 17 gm PO DAILY [facility] Last Admin: 04/25/19 09:35 Dose: 17 grams Prednisone (Deltasone -) 30 mg PO DAILY [facility] Last Admin: 04/25/19 09:34 Dose: 30 mg Physical Examination Vital Signs: Vital Signs Period Temp Pulse Resp BP Sys/Hernandez Pulse Ox Last 24 Hr 97.4 F-98.7 F 68-96 18-20 117-146/6-93 96-100 Constitutional: Yes: No Distress, Calm Eyes: Yes: Conjunctiva Clear HENT: Yes: Atraumatic Neck: Yes: Supple Cardiovascular: Yes: Regular Rate and Rhythm Respiratory: Yes: Diminished Gastrointestinal: Yes: Soft. No: Tenderness Renal/: No: Hematuria Musculoskeletal: No: Joint Stiffness, Joint Swelling Extremities: No: Cold, Cool Edema: Yes (1+ pretibial bilateral) Integumentary: No: Rash, Venous Stasis Changes Neurological: Awake, alert, moves all extremities equally, sensory intact, finger to nose normal, gait deferred Labs: CBCD WBC 10.9 K/mm3 (4.0-10.0) H 04/25/19 10:20 RBC 5.59 M/mm3 (4.00-5.60) 04/25/19 10:20 Hgb 15.3 GM/dL (11.7-16.9) 04/25/19 10:20 Hct 46.6 % (35.4-49) 04/25/19 10:20 MCV 83.4 fl (80-96) 04/25/19 10:20 MCHC 32.9 g/dl (32.0-35.9) 04/25/19 10:20 RDW 14.6 % (11.9-15.9) 04/25/19 10:20 Plt Count 352 K/MM3 (134-434) 04/25/19 10:20 MPV 7.1 fl (7.5-11.1) L 04/25/19 10:20 CMP Sodium 136 mmol/L (136-145) 04/25/19 10:20 Potassium 3.9 mmol/L (3.5-5.1) 04/25/19 10:20 Chloride 94 mmol/L (98-107) L 04/25/19 10:20 Carbon Dioxide 33 mmol/L (21-32) H 04/25/19 10:20 Anion Gap 9 MMOL/L (8-16) 04/25/19 10:20 BUN 15.2 mg/dL (7-18) 04/25/19 10:20 Creatinine 0.8 mg/dL (0.55-1.3) 04/25/19 10:20 Random Glucose 137 mg/dL (74-106) H 04/25/19 10:20 Calcium 9.2 mg/dL (8.5-10.1) 04/25/19 10:20 Total Bilirubin 1.2 mg/dL (0.2-1) H 04/25/19 10:20 AST 29 U/L (15-37) 04/25/19 10:20 ALT 67 U/L (13-61) H 04/25/19 10:20 Alkaline Phosphatase 88 U/L (45-117) 04/25/19 10:20 Total Protein 5.8 g/dl (6.4-8.2) L 04/25/19 10:20 Albumin 2.6 g/dl (3.4-5.0) L 04/25/19 10:20 CARDIAC ENZYMES Troponin I < 0.02 ng/ml (0.00-0.05) 04/17/19 08:05 Assessment/Plan 84y M history of CHF, prior CVA, HTN, HLD, COPD (on room air), dementia, prostate CA, h/o PEG /aspiration PNA few years ago, presented with complaint of confusion/cough for the past week prior to admission, associated with fever, and increasing sob with nonproductive cough. Pt denied any chest pain, n/v, diaphoreis, abd pain, back pain; has chronic both legs swelling (always has baseline swelling). no sick contacts or recent hospitalizations. his called Dr. Delcid few days ago prior to admission and Heriberto ordered po but he did not take it; instead she brought him to ER. Patient labs indicate HA1C 7.2 and elevated BNP. Patient labs currently indicate elevated BUN 23.8 and LFTS slightly elevated, trending up. Does know name of President though initially response was of negative comments. Head CT completed, indicates chronic microvascular changes and calcified aneurysm with no gross interval changes. Ultrasound of pelvis ordered, results pending. ID note reviewed, received ABX for presumed community acquired PNA which is likely etiology to his mental status. Though not fully at baseline does seem close to it. WBC trending up. Continue infectious optimization, Abx as per primary and ID. Continue hydration , frequent reorientation. Does not require any neurologic medications at this time. More consistent with delirum than dementia. Possibly worse due to unfamilar enviorment though close to baseline for me this AM, likely improving. Calm aand cooperative this morning, no acute events overnight, possibly for discharge, patient without new complaints. Should have outpatient follow up for cognitive studies and further evaluation for dementia. Otherwise, neurologically stable at this time
[2019-04-26] MEDS: ALBUTEROL SO4 2.5/IPRATROPIUM 0.5 INH SOL 3 ML VIAL.NEB. NEB SCH ×3 (09:05→17:08)
[2019-04-26] MEDS ORDERED: PT OWN MED DRAWER 7, Y5N ONE (09:09)
[2019-04-26] MEDS: POLYETHYLENE GLYCOL 3350 119 GM BTL PO SCH (09:44)
[2019-04-26] MEDS: CLOPIDOGREL BISULFATE 75 MG TABLET (FP) PO SCH (09:45)
[2019-04-26] MEDS: CARVEDILOL 6.25 MG TABLET (FP) PO SCH (09:45)
[2019-04-26] MEDS: ASPIRIN 81 MG CHEWABLE TABLETS PO SCH (09:45)
[2019-04-26] MEDS: DOCUSATE SODIUM 100 MG CAPSULE (FP) PO SCH (09:45)
[2019-04-26] MEDS: LISINOPRIL 5 MG TABLET (FP) PO SCH (09:45)
[2019-04-26] MEDS: DONEPEZIL HCL 5 MG TABLET (FP) PO SCH (09:45)
[2019-04-26] MEDS: predniSONE 20 MG TABLET (UD) PO SCH (09:46)
[2019-04-26] MEDS: FAMOTIDINE 20 MG TABLET PO SCH (09:47)
[2019-04-26] MEDS: BUDESONIDE/FORMETEROL FUMARATE 160/4.5 mcg INHALER IH SCH (09:48)
[2019-04-26] MEDS: amLODIPine BESYLATE 10 MG TABLET (FP) PO SCH (09:49)
[2019-04-26] MEDS: ARTIFICIAL TEARS (POLYVINYL ALCOHOL) OPTH DROPS OU SCH ×2 (09:49→14:11)
[2019-04-26] MEDS ORDERED: SODIUM PHOSPHATE/NA BIPHOS 133 ML ENEMA PR ONE (10:51)
[2019-04-26] MEDS: FUROSEMIDE 40 MG/4 ML INJECTABLE VIAL IVPUSH SCH (13:55)
[2019-04-26] MEDS ORDERED: FUROSEMIDE 40 MG TABLET (FP) PO ONE (14:00)
--- NOTE | 2019-04-26 14:02 | PN ---
Progress Note, Physician - Current Medication List Current Medications: Active Medications Acetaminophen (Tylenol -) 650 mg PO TID PRN PRN Reason: FEVER Albuterol/Ipratropium (Duoneb -) 1 amp NEB RQID [facility] Last Admin: 04/25/19 20:10 Dose: 1 amp Amlodipine Besylate (Norvasc -) 5 mg PO DAILY [facility] Last Admin: 04/26/19 09:49 Dose: 5 mg Artificial Tears (Artificial Tears) 1 drop OU QID [facility] Last Admin: 04/26/19 09:49 Dose: 1 drop Aspirin (Asa -) 81 mg PO DAILY [facility] Last Admin: 04/26/19 09:45 Dose: 81 mg Atorvastatin Calcium (Lipitor -) 40 mg PO HS [facility] Last Admin: 04/25/19 21:00 Dose: 40 mg Budesonide/Formoterol Fumarate (Symbicort 160/4.5mcg -) 1 puff IH BID [facility] Last Admin: 04/26/19 09:48 Dose: 1 puff Carvedilol (Coreg -) 6.25 mg PO BID [facility] Last Admin: 04/26/19 09:45 Dose: 6.25 mg Clopidogrel Bisulfate (Plavix -) 75 mg PO DAILY [facility] Last Admin: 04/26/19 09:45 Dose: 75 mg Docusate Sodium (Colace -) 100 mg PO DAILY [facility] Last Admin: 04/26/19 09:45 Dose: 100 mg Donepezil HCl (Aricept -) 5 mg PO DAILY [facility] Last Admin: 04/26/19 09:45 Dose: 5 mg Doxazosin Mesylate (Cardura -) 2 mg PO HS [facility] Last Admin: 04/25/19 21:00 Dose: 2 mg Famotidine (Pepcid -) 20 mg PO DAILY [facility] Last Admin: 04/26/19 09:47 Dose: 20 mg Furosemide (Lasix Injection -) 40 mg IVPUSH DAILY [facility] Last Admin: 04/26/19 13:55 Dose: Not Given Guaifenesin (Robitussin -) 10 ml PO Q6H PRN PRN Reason: COUGH Last Admin: 04/25/19 13:32 Dose: 10 ml Insulin Aspart (Novolog Vial Sliding Scale -) 1 vial SQ ACHS [facility]; Protocol Last Admin: 04/26/19 12:21 Dose: 2 units Latanoprost (Xalatan 0.005% Eye Drops -) 1 drop OU HS [facility] Last Admin: 04/25/19 20:59 Dose: 1 drop Lisinopril (Prinivil) 5 mg PO DAILY [facility] Last Admin: 04/26/19 09:45 Dose: 5 mg Montelukast Sodium (Singulair -) 10 mg PO HS [facility] Last Admin: 04/25/19 20:59 Dose: 10 mg Ondansetron HCl (Zofran Injection) 8 mg IVPB Q8H PRN PRN Reason: NAUSEA AND/OR VOMITING Last Admin: 04/24/19 15:51 Dose: 8 mg Polyethylene Glycol (Miralax (For Daily Use) -) 17 gm PO DAILY [facility] Last Admin: 04/26/19 09:44 Dose: 17 grams Prednisone (Deltasone -) 30 mg PO DAILY [facility] Last Admin: 04/26/19 09:46 Dose: 30 mg - Objective Vital Signs: Vital Signs Temperature 98.5 F 04/26/19 08:53 Pulse Rate 96 H 04/26/19 08:53 Respiratory Rate 20 04/26/19 08:53 Blood Pressure 146/75 04/26/19 08:53 O2 Sat by Pulse Oximetry (%) 100 04/25/19 21:00 Labs: CBC, BMP 04/25/19 10:20 04/25/19 10:20 INR, PTT INR 1.08 (0.83-1.09) 04/17/19 08:05 Assessment/Plan Problem List - Problems (1) COPD exacerbation Code(s): J44.1 - CHRONIC OBSTRUCTIVE PULMONARY DISEASE W (ACUTE) EXACERBATION (2) Abdominal aortic aneurysm (AAA) Code(s): I71.4 - ABDOMINAL AORTIC ANEURYSM, WITHOUT RUPTURE (3) Acute exacerbation of chronic obstructive pulmonary disease (COPD) Code(s): J44.1 - CHRONIC OBSTRUCTIVE PULMONARY DISEASE W (ACUTE) EXACERBATION (4) CHF (congestive heart failure) Code(s): I50.9 - HEART FAILURE, UNSPECIFIED Qualifiers: Heart failure type: unspecified Heart failure chronicity: chronic Qualified Code(s): I50.9 - Heart failure, unspecified (5) Chronic obstructive pulmonary disease Code(s): J44.9 - CHRONIC OBSTRUCTIVE PULMONARY DISEASE, UNSPECIFIED (6) Dementia Code(s): F03.90 - UNSPECIFIED DEMENTIA WITHOUT BEHAVIORAL DISTURBANCE (7) Diastolic CHF Code(s): I50.30 - UNSPECIFIED DIASTOLIC (CONGESTIVE) HEART FAILURE (8) HTN (hypertension) Code(s): I10 - ESSENTIAL (PRIMARY) HYPERTENSION (9) Osteoporosis Code(s): M81.0 - AGE-RELATED OSTEOPOROSIS W/O CURRENT PATHOLOGICAL FRACTURE (10) PSVT (paroxysmal supraventricular tachycardia) Code(s): I47.1 - SUPRAVENTRICULAR TACHYCARDIA (11) Pneumonia Code(s): J18.9 - PNEUMONIA, UNSPECIFIED ORGANISM Qualifiers: Pneumonia type: aspiration pneumonia Aspiration pneumonia type: unspecified Laterality: bilateral Lung location: unspecified part of lung Qualified Code(s): J69.0 - Pneumonitis due to inhalation of food and vomit (12) Prostate cancer Code(s): C61 - MALIGNANT NEOPLASM OF PROSTATE (13) Pulmonary nodule, left Code(s): R91.1 - SOLITARY PULMONARY NODULE Assessment/Plan prednisone BD TX standing and PRN ABX completed Singulair O2 as needed to maintain saturation VTE prophylaxis No smoking counseled Outpatient follow up of lung nodule (yearly) DR LAO
--- NOTE | 2019-04-26 14:44 | PN ---
Progress Note, Physician History of Present Illness: 84y M history of CHF, prior CVA, HTN, HLD, COPD (on no 02), dementia presenting with complaint of confusion/cough for the past four days associated with fever presents with increasing sob and nonproductive cough. Pt denies any chest pain, n/v, diaphoreis, abd pain, back pain, new leg swelling always has baseline swelling). no sick contacts or recent hospitalizations PMD: Dr. Delcid Pulm: Dr. Nickerson PMH Past medical history Major events LE angio 02/21/2015 Dr. Alcazar Left EIA/[employer] OFF DCB 08/10/2014 Dr Alcazar PCI LCx 09/20/2014 Dr Alcazar Ongoing medical problems Claudication, intermittent HTN Hyperlipidemia TIA/CVA 3.3 cm AAA August 2017 - Current Medication List Current Medications: Active Medications Acetaminophen (Tylenol -) 650 mg PO TID PRN PRN Reason: FEVER Albuterol/Ipratropium (Duoneb -) 1 amp NEB RQID [facility] Last Admin: 04/26/19 14:37 Dose: 1 amp Amlodipine Besylate (Norvasc -) 5 mg PO DAILY [facility] Last Admin: 04/26/19 09:49 Dose: 5 mg Artificial Tears (Artificial Tears) 1 drop OU QID [facility] Last Admin: 04/26/19 14:11 Dose: 1 drop Aspirin (Asa -) 81 mg PO DAILY [facility] Last Admin: 04/26/19 09:45 Dose: 81 mg Atorvastatin Calcium (Lipitor -) 40 mg PO HS [facility] Last Admin: 04/25/19 21:00 Dose: 40 mg Budesonide/Formoterol Fumarate (Symbicort 160/4.5mcg -) 1 puff IH BID [facility] Last Admin: 04/26/19 09:48 Dose: 1 puff Carvedilol (Coreg -) 6.25 mg PO BID [facility] Last Admin: 04/26/19 09:45 Dose: 6.25 mg Clopidogrel Bisulfate (Plavix -) 75 mg PO DAILY [facility] Last Admin: 04/26/19 09:45 Dose: 75 mg Docusate Sodium (Colace -) 100 mg PO DAILY [facility] Last Admin: 04/26/19 09:45 Dose: 100 mg Donepezil HCl (Aricept -) 5 mg PO DAILY [facility] Last Admin: 04/26/19 09:45 Dose: 5 mg Doxazosin Mesylate (Cardura -) 2 mg PO HS [facility] Last Admin: 04/25/19 21:00 Dose: 2 mg Famotidine (Pepcid -) 20 mg PO DAILY [facility] Last Admin: 04/26/19 09:47 Dose: 20 mg Furosemide (Lasix Injection -) 40 mg IVPUSH DAILY [facility] Last Admin: 04/26/19 13:55 Dose: Not Given Guaifenesin (Robitussin -) 10 ml PO Q6H PRN PRN Reason: COUGH Last Admin: 04/25/19 13:32 Dose: 10 ml Insulin Aspart (Novolog Vial Sliding Scale -) 1 vial SQ [facility]; Protocol Last Admin: 04/26/19 12:21 Dose: 2 units Latanoprost (Xalatan 0.005% Eye Drops -) 1 drop OU HS [facility] Last Admin: 04/25/19 20:59 Dose: 1 drop Lisinopril (Prinivil) 5 mg PO DAILY [facility] Last Admin: 04/26/19 09:45 Dose: 5 mg Montelukast Sodium (Singulair -) 10 mg PO HS [facility] Last Admin: 04/25/19 20:59 Dose: 10 mg Ondansetron HCl (Zofran Injection) 8 mg IVPB Q8H PRN PRN Reason: NAUSEA AND/OR VOMITING Last Admin: 04/24/19 15:51 Dose: 8 mg Polyethylene Glycol (Miralax (For Daily Use) -) 17 gm PO DAILY [facility] Last Admin: 04/26/19 09:44 Dose: 17 grams Prednisone (Deltasone -) 30 mg PO DAILY [facility] Last Admin: 04/26/19 09:46 Dose: 30 mg - Objective Vital Signs: Vital Signs Temperature 98.5 F 04/26/19 08:53 Pulse Rate 96 H 04/26/19 08:53 Respiratory Rate 20 04/26/19 08:53 Blood Pressure 146/75 04/26/19 08:53 O2 Sat by Pulse Oximetry (%) 100 04/25/19 21:00 Eyes: Yes: WNL, Conjunctiva Clear, EOM Intact HENT: Yes: WNL, Atraumatic, Normocephalic Neck: Yes: WNL, Supple, Trachea Midline Cardiovascular: Yes: WNL, Regular Rate and Rhythm Respiratory: Yes: WNL, Regular, CTA Bilaterally Gastrointestinal: Yes: WNL, Normal Bowel Sounds Genitourinary: Yes: WNL Musculoskeletal: Yes: WNL Extremities: Yes: WNL Edema: No Integumentary: Yes: WNL Neurological: Yes: WNL, Alert, Oriented ...Motor Strength: WNL Psychiatric: Yes: WNL Labs: CBC, BMP 04/25/19 10:20 04/25/19 10:20 INR, PTT INR 1.08 (0.83-1.09) 04/17/19 08:05 Problem List - Problems (1) Abdominal aneurysm Code(s): I71.4 - ABDOMINAL AORTIC ANEURYSM, WITHOUT RUPTURE (2) Abdominal aortic aneurysm (AAA) Code(s): I71.4 - ABDOMINAL AORTIC ANEURYSM, WITHOUT RUPTURE (3) Abdominal pain Code(s): R10.9 - UNSPECIFIED ABDOMINAL PAIN (4) Abnormal liver function tests Code(s): R94.5 - ABNORMAL RESULTS OF LIVER FUNCTION STUDIES (5) Acute CHF (congestive heart failure) Code(s): I50.9 - HEART FAILURE, UNSPECIFIED (6) Acute bronchitis Code(s): J20.9 - ACUTE BRONCHITIS, UNSPECIFIED (7) Acute exacerbation of chronic obstructive pulmonary disease (COPD) Code(s): J44.1 - CHRONIC OBSTRUCTIVE PULMONARY DISEASE W (ACUTE) EXACERBATION (8) Acute on chronic respiratory failure with hypoxemia Code(s): J96.21 - ACUTE AND CHRONIC RESPIRATORY FAILURE WITH HYPOXIA (9) Aspiration into airway Code(s): T17.908A - UNSP FB IN RESP TRACT, PART UNSP CAUSING OTH INJURY, INIT (10) Asymptomatic bacteriuria Code(s): R82.71 - BACTERIURIA (11) Atopic dermatitis Code(s): L20.9 - ATOPIC DERMATITIS, UNSPECIFIED Qualifiers: Atopic dermatitis type: unspecified Qualified Code(s): L20.9 - Atopic dermatitis, unspecified (12) Bacteremia Code(s): R78.81 - BACTEREMIA (13) Bandemia Code(s): D72.825 - BANDEMIA (14) Benign localized hyperplasia of prostate with urinary obstruction Code(s): N40.1 - BENIGN PROSTATIC HYPERPLASIA WITH LOWER URINARY TRACT SYMP; N13.8 - OTHER OBSTRUCTIVE AND REFLUX UROPATHY (15) Bilateral leg weakness Code(s): M62.81 - MUSCLE WEAKNESS (GENERALIZED) (16) Blister Code(s): T14.8XXA - OTHER INJURY OF UNSPECIFIED BODY REGION, INITIAL ENCOUNTER (17) CHF (congestive heart failure) Code(s): I50.9 - HEART FAILURE, UNSPECIFIED Qualifiers: Heart failure type: unspecified Heart failure chronicity: chronic Qualified Code(s): I50.9 - Heart failure, unspecified (18) COPD exacerbation Code(s): J44.1 - CHRONIC OBSTRUCTIVE PULMONARY DISEASE W (ACUTE) EXACERBATION (19) CVA (cerebral infarction) Code(s): I63.9 - CEREBRAL INFARCTION, UNSPECIFIED (20) Cerebral aneurysm Code(s): I67.1 - CEREBRAL ANEURYSM, NONRUPTURED (21) Chronic obstructive pulmonary disease Code(s): J44.9 - CHRONIC OBSTRUCTIVE PULMONARY DISEASE, UNSPECIFIED (22) Complication of Chavarria catheter Code(s): T83.9XXA - UNSP COMPLICATION OF GENITOURINARY PROSTH DEV/GRFT, INIT (23) Constipation Code(s): K59.00 - CONSTIPATION, UNSPECIFIED (24) Dehydration Code(s): E86.0 - DEHYDRATION (25) Dementia Code(s): F03.90 - UNSPECIFIED DEMENTIA WITHOUT BEHAVIORAL DISTURBANCE (26) Depression Code(s): F32.9 - MAJOR DEPRESSIVE DISORDER, SINGLE EPISODE, UNSPECIFIED (27) Diastolic CHF Code(s): I50.30 - UNSPECIFIED DIASTOLIC (CONGESTIVE) HEART FAILURE (28) Distended bladder Code(s): N32.89 - OTHER SPECIFIED DISORDERS OF BLADDER (29) Dysphagia Code(s): R13.10 - DYSPHAGIA, UNSPECIFIED (30) Dysphagia Code(s): R13.10 - DYSPHAGIA, UNSPECIFIED Qualifiers: Dysphagia type: unspecified Qualified Code(s): R13.10 - Dysphagia, unspecified (31) Elevated LFTs Code(s): R79.89 - OTHER SPECIFIED ABNORMAL FINDINGS OF BLOOD CHEMISTRY (32) Fall Code(s): W19.XXXA - UNSPECIFIED FALL, INITIAL ENCOUNTER Qualifiers: Encounter type: initial encounter Qualified Code(s): W19.XXXA - Unspecified fall, initial encounter (33) [place] cardiac risk >20% in next 10 years Code(s): Z91.89 - OTH PERSONAL RISK FACTORS, NOT ELSEWHERE CLASSIFIED (34) Gross hematuria Code(s): R31.0 - GROSS HEMATURIA (35) HTN (hypertension) Code(s): I10 - ESSENTIAL (PRIMARY) HYPERTENSION (36) Hyperbilirubinemia Code(s): E80.6 - OTHER DISORDERS OF BILIRUBIN METABOLISM (37) Hyperglycemia Code(s): R73.9 - HYPERGLYCEMIA, UNSPECIFIED (38) Hyperlipemia, mixed Code(s): E78.2 - MIXED HYPERLIPIDEMIA (39) Hyperlipidemia Code(s): E78.5 - HYPERLIPIDEMIA, UNSPECIFIED (40) Hypernatremia Code(s): E87.0 - HYPEROSMOLALITY AND HYPERNATREMIA (41) Hypoalbuminemia Code(s): E88.09 - OTH DISORDERS OF PLASMA-PROTEIN METABOLISM, NEC (42) Hypokalemia Code(s): E87.6 - HYPOKALEMIA (43) Hypokalemia due to inadequate potassium intake Code(s): E87.6 - HYPOKALEMIA (44) Hypomagnesemia Code(s): E83.42 - HYPOMAGNESEMIA (45) Hypophosphatemia Code(s): E83.39 - OTHER DISORDERS OF PHOSPHORUS METABOLISM (46) Hypothyroid Code(s): E03.9 - HYPOTHYROIDISM, UNSPECIFIED (47) 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 Code(s): I87.332 - CHRONIC VENOUS HTN W ULCER AND INFLAMMATION OF L LOW EXTREM; L97.929 - NON-PRS CHRONIC ULC UNSP PRT OF L LOW LEG W UNSP SEVERITY (48) Ileus following gastrointestinal surgery Code(s): K91.3 - POSTPROCEDURAL INTESTINAL OBSTRUCTION * DO NOT USE * (49) Osteoporosis Code(s): M81.0 - AGE-RELATED OSTEOPOROSIS W/O CURRENT PATHOLOGICAL FRACTURE (50) PSVT (paroxysmal supraventricular tachycardia) Code(s): I47.1 - SUPRAVENTRICULAR TACHYCARDIA (51) Pneumatosis intestinalis Code(s): K63.89 - OTHER SPECIFIED DISEASES OF INTESTINE (52) Pneumonia Code(s): J18.9 - PNEUMONIA, UNSPECIFIED ORGANISM Qualifiers: Pneumonia type: aspiration pneumonia Aspiration pneumonia type: unspecified Laterality: bilateral Lung location: unspecified part of lung Qualified Code(s): J69.0 - Pneumonitis due to inhalation of food and vomit (53) Prostate cancer Code(s): C61 - MALIGNANT NEOPLASM OF PROSTATE (54) Renal calculi Code(s): N20.0 - CALCULUS OF KIDNEY (55) Right hip pain Code(s): M25.551 - PAIN IN RIGHT HIP (56) Right leg pain Code(s): M79.604 - PAIN IN RIGHT LEG (57) S/P percutaneous endoscopic gastrostomy (PEG) tube placement Code(s): Z93.1 - GASTROSTOMY STATUS (58) SBO (small bowel obstruction) Code(s): K56.69 - OTHER INTESTINAL OBSTRUCTION * DO NOT USE * (59) Silent aspiration Code(s): T17.900A - UNSP FB IN RESP TRACT, PART UNSP CAUSING ASPHYX, INIT (60) Small bowel mass Code(s): K63.89 - OTHER SPECIFIED DISEASES OF INTESTINE (61) Stricture intestinal Code(s): K56.699 - OTHER INTESTNL OBST UNSP TO PARTIAL VERSUS COMPLETE OBST (62) TIA (transient ischemic attack) Code(s): G45.9 - TRANSIENT CEREBRAL ISCHEMIC ATTACK, UNSPECIFIED (63) Upper respiratory disease Code(s): J39.9 - DISEASE OF UPPER RESPIRATORY TRACT, UNSPECIFIED (64) Urinary retention Code(s): R33.9 - RETENTION OF URINE, UNSPECIFIED (65) Urinary retention due to benign prostatic hyperplasia Code(s): N40.1 - BENIGN PROSTATIC HYPERPLASIA WITH LOWER URINARY TRACT SYMP; R33.8 - OTHER RETENTION OF URINE (66) Urinary tract infection Code(s): N39.0 - URINARY TRACT INFECTION, SITE NOT SPECIFIED Qualifiers: Urinary tract infection type: acute cystitis Hematuria presence: with hematuria Qualified Code(s): N30.01 - Acute cystitis with hematuria (67) Venous (peripheral) insufficiency Code(s): I87.2 - VENOUS INSUFFICIENCY (CHRONIC) (PERIPHERAL) (68) Venous insufficiency Code(s): I87.2 - VENOUS INSUFFICIENCY (CHRONIC) (PERIPHERAL) (69) Wasting syndrome Code(s): R64 - [place] (70) Weakness Code(s): R53.1 - WEAKNESS Assessment/Plan - Problems (1) Acute on chronic diastolic (congestive) heart failure Assessment/Plan: On Coreg, Lasix, amlodipine, prinivil. Consider stopping Cardura (may increase CHF), unless needed for other reasons. Code(s): I50.33 - ACUTE ON CHRONIC DIASTOLIC (CONGESTIVE) HEART FAILURE (2) Acute bronchitis Code(s): J20.9 - ACUTE BRONCHITIS, UNSPECIFIED (3) Acute exacerbation of chronic obstructive pulmonary disease (COPD) Code(s): J44.1 - CHRONIC OBSTRUCTIVE PULMONARY DISEASE W (ACUTE) EXACERBATION (4) Dementia Code(s): F03.90 - UNSPECIFIED DEMENTIA WITHOUT BEHAVIORAL DISTURBANCE (5) Weakness Code(s): R53.1 - WEAKNESS
[2019-04-26 15:33] VITALS: BP 126/65; PULSE 70; TEMP 98.4
== END 2019-04-26 18:02 | disposition home health service (06) | DRG 291 ==
LOC: JER 07:33 → JERBED 09:22 → J8W 16:30 → J5S 04-18 22:52
PROVIDERS: ADMIT Internal Medicine; ATTEND Internal Medicine
DX: I11.0 Hypertensive heart disease with heart failure (principal); J18.9 Pneumonia, unspecified organism; J44.1 Chronic obstructive pulmonary disease with (acute) exacerbation; G81.91 Hemiplegia, unspecified affecting right dominant side; I50.33 Acute on chronic diastolic (congestive) heart failure; C61 Malignant neoplasm of prostate; N40.0 Benign prostatic hyperplasia without lower urinary tract symptoms; J44.9 Chronic obstructive pulmonary disease, unspecified; F03.90 Unspecified dementia, unspecified severity, without behavioral disturbance, psychotic disturbance, mood disturbance, and anxiety; I71.4 Abdominal aortic aneurysm, without rupture; R41.0 Disorientation, unspecified; K59.00 Constipation, unspecified; K40.90 Unilateral inguinal hernia, without obstruction or gangrene, not specified as recurrent; R91.1 Solitary pulmonary nodule; R53.1 Weakness
CPT/HCPCS: 36415; 70450-TC; 71045-TC-FY; 71250-TC; 74176-TC; 80048; 80053; 81003; 82607; 82803; 82962; 83036; 83605; 83735; 83880; 84443; 84484; 85025; 85610; 85730; 87040; 87086; 87804; 93005; 93010; 94640; 97116-GP; 97161-GP; 99285-25; J0131

== ENCOUNTER 2019-04-27 21:59 | Inpatient (IN) | payer OTHER, BC ==
--- NOTE | 2019-04-27 22:33 | PDOC ---
History of Present Illness - General Stated Complaint: HYPOTENSION Time Seen by Provider: 04/27/19 22:33 - History of Present Illness Initial Comments: 04/27/19 22:34 84 y/o man with hx CHF, prior CVA, HTN, HLD, COPD, dementia recently discharged for pneumonia 1 day ago who presents with some tiredness, hypotension and shortness of breath. Per the patient had trouble sleeping last night and the nursing home manager measures a systolic blood pressure in the 70s and the home pulse ox was not able to cloth picker and O2. denies any fevers. The patient volunteers limited history but is able to hold small conversation. He has no other complaints. ROS - limited 2/2 participation GENERAL/CONSTITUTIONAL: No fever or chills. No weakness. CARDIOVASCULAR: No chest pain, + shortness of breath RESPIRATORY: No cough, wheezing, or hemoptysis. GASTROINTESTINAL: No nausea, vomiting, diarrhea or constipation. GENITOURINARY: No dysuria, frequency, or change in urination. MUSCULOSKELETAL: No joint or muscle swelling or pain. No neck or back pain. SKIN: No rash PE GENERAL: tired appearing HEAD: No signs of trauma, normocephalic, atraumatic EYES: EOMI, sclera anicteric, conjunctiva clear ENT: oropharynx clear without exudates. dry mucosa NECK: Normal ROM, supple LUNGS: No distress, speaks full sentences, poor inspiratory effort but coarse breath sounds HEART: Regular rate and rhythm, normal S1 and S2, no murmurs, rubs or gallops, peripheral pulses normal and equal bilaterally. ABDOMEN: Soft, nontender No guarding, no rebound. No masses EXTREMITIES : Normal inspection, Normal range of motion, no edema. No clubbing or cyanosis. NEUROLOGICAL: limited 2/2 participation SKIN: Warm, Dry, normal turgor, no rashes or lesions noted MDM DDX including but not limited to: concern for sepsis consider pneumonia vs uti ED Course: sepsis workup, supplemental oxygen, fluid resusc patient with leukocytosis, suspect pulm source vs urine patient got recephin and zithromax course during past hospital stay ua negative likely pulm source, no significant focal infiltrate but limited as unable to stand for lateral film patient coughing at bedside will dose van zosyn, continue fluid resusc and admit for clinical pna Case discussed with Dr. Delcid, agrees to admission Johanne Guerrero PGY2 Emergency Medicine Past History - Past Medical History Allergies/Adverse Reactions: Allergies Allergy/AdvReac Type Severity Reaction Status Date / Time No Known Allergies Allergy Verified 04/27/19 22:33 Home Medications: Ambulatory Orders Aspirin [ASA -] 81 mg PO DAILY #90 tab 06/26/17 Budesonide/Formeterol Fumarate [SYMBICORT 160/4.5mcg -] 1 puff IH BID #1 inhaler 06/26/17 Montelukast Na [Singulair -] 10 mg PO HS #30 tablet 06/26/17 Furosemide [Lasix -] 40 mg PO BID tablet 10/10/18 Atorvastatin Ca [Lipitor] 40 mg PO HS 01/21/19 Carvedilol [Coreg -] 6.25 mg PO DAILY 01/21/19 Clopidogrel Bisulfate [Plavix] 75 mg PO DAILY 01/21/19 Amlodipine Besylate 10 mg PO DAILY 04/17/19 Benzonatate 04/17/19 Doxazosin Mesylate [Cardura -] 2 mg PO DAILY 04/17/19 Polyvinyl Alcohol [Artificial Tears] 1 drop OU QID 04/19/19 Travoprost [Travatan Z] 1 drop OU DAILY 04/19/19 Acetaminophen [Tylenol .Regular Strength -] 650 mg PO TID PRN tablet 04/25/19 Carvedilol [Coreg -] 6.25 mg PO BID #180 tablet 04/25/19 Cefuroxime Axetil [Ceftin -] 500 mg PO BID #10 tablet 04/25/19 Docusate Sodium [Colace -] 100 mg PO DAILY capsule 04/25/19 Donepezil HCl [Aricept -] 5 mg PO DAILY tablet 04/25/19 Famotidine [Pepcid -] 20 mg PO DAILY tablet 04/25/19 Guaifenesin [Robitussin -] 10 ml PO Q6H PRN cup 04/25/19 Lisinopril [Prinivil] 5 mg PO DAILY #90 tablet 04/25/19 Polyethylene Glycol 3350 [Miralax 119 gm Btl -] 17 gm PO DAILY bottle 04/25/19 predniSONE [Deltasone -] 10 mg PO DAILY #20 tablet 04/25/19 Anemia: No Asthma: Yes Cancer: No Cardiac Disorders: Yes (AAA) CVA: Yes (Mild R hemiparesis) COPD: Yes CHF: No Dementia: Yes Diabetes: Yes (Borderline) GI Disorders: Yes (obstruction) Disorders: Yes (BPH) HTN: Yes Hypercholesterolemia: Yes Liver Disease: No Seizures: No Thyroid Disease: No - Surgical History Abdominal Surgery: Yes (g.tube -removed) Appendectomy: No Cardiac Surgery: No Cholecystectomy: No Lung Surgery: Yes (chest tube for pneumothorax) Neurologic Surgery: No - Immunization History Immunization Up to Date: Yes - Psycho Social/Smoking Cessation Hx Smoking Status: Yes Smoking History: Former smoker Have you smoked in the past 12 months: No Number of Cigarettes Smoked Daily: 10 If you are a former smoker, when did you quit?: 7 years ago 'Breaking Loose' booklet given: 03/03/16 Hx Alcohol Use: No Drug/Substance Use Hx: No Substance Use Type: None Hx Substance Use Treatment: No ED Treatment Course - LABORATORY CBC & Chemistry Diagram: 05/06/19 06:20 05/06/19 06:20 Discharge - Discharge Information Problems reviewed: Yes Clinical Impression/Diagnosis: Pneumonia Qualifiers: Pneumonia type: aspiration pneumonia Aspiration pneumonia type: unspecified Laterality: bilateral Lung location: unspecified part of lung Qualified Code(s) : J69.0 - Pneumonitis due to inhalation of food and vomit - Follow up/Referral - Patient Discharge Instructions - Post Discharge Activity
[2019-04-27 23:32] LABS: BASO % 0.5 % (0-2.0); EOS % 1.4 % (0-4.5); HEMATOCRIT 41.9 % (35.4-49); HEMOGLOBIN 13.5 GM/dL (11.7-16.9); LYMPH % 6.7 % (8-40); MCH 27.4 pg (25.7-33.7); MCHC 32.3 g/dl (32.0-35.9); MEAN CELL VOLUME 84.7 fl (80-96); MEAN PLT VOLUME 7.3 fl (7.5-11.1); NEUT % 80.4 % (42.8-82.8); PLATELET COUNT 337 K/MM3 (134-434); RBC 4.94 M/mm3 (4.00-5.60); RDW 14.3 % (11.9-15.9); WHITE BLOOD COUNT 16.1 K/mm3 (4.0-10.0)
[2019-04-27 23:53] LABS: VENOUS PC02 61.5 mmHg (38-52); VENOUS PH 7.36 (7.31-7.41)
[2019-04-27 23:59] LABS: VENOUS PO2 < 49 mmHg (28-48)
[2019-04-28 00:09] LABS: ALBUMIN 2.3 g/dl (3.4-5.0); BILIRUBIN,TOTAL 1.6 mg/dL (0.2-1); BLOOD UREA NITROGEN 44.8 mg/dL (7-18); CALCIUM 8.7 mg/dL (8.5-10.1); CREATININE 1.9 mg/dL (0.55-1.3); N-TERMINAL BNP 277.6 pg/ml (5-450); POTASSIUM 4.5 mmol/L (3.5-5.1); TOT PROT 4.9 g/dl (6.4-8.2)
[2019-04-28] MEDS ORDERED: SODIUM CHLORIDE 1,000 ML IV SCH ×2 (00:45→11:15)
--- NOTE | 2019-04-28 01:00 | PDOC ---
Documentation entered by Shawna Chi SCRIBE, acting as scribe for Dipti Stout MD. Dipti Stout MD: This documentation has been prepared by the Arti rodriguez Brenda, SCRIBE, under my direction and personally reviewed by me in its entirety. I confirm that the documentation accurately reflects all work, treatment, procedures, and medical decision making performed by me. Attending Attestation - Resident Resident Name: Johanne Guerrero - ED Attending Attestation I have performed the following: I have examined & evaluated the patient, The case was reviewed & discussed with the resident, I agree w/resident's findings & plan, Exceptions are as noted - HPI HPI: 04/28/19 00:56 84-year-old male history of COPD CHF hypertension abdominal aortic aneurysm prostate CA arthritis recently admitted and discharged yesterday for pneumonia COPD and slight CHF exacerbation. Here today with concerns by the and the home health aide for a fever 102 hypotension and with increasing lethargy. Patient's provides history as the patient is currently not answering any questions denies any nausea or vomiting does still have a cough no other current complaints. - Physicial Exam PE: 04/28/19 00:57 Patient is sleeping but arousable lungs are with distant breath sounds bilaterally. Heart is regular with no murmurs rubs or gallops abdomen is soft there is no palpable tenderness skin is warm and dry bilateral lower extremities showed no pitting edema scaly skin - Medical Decision Making 04/28/19 00:58 84-year-old male history of COPD CHF abdominal aneurysm recently admitted for pneumonia here with fever cough and hypotension. Differential includes UTI or other source of sepsis such as recurrent pneumonia effusion patient is nontender abdominal exam. Plan chest x-ray labs urine culture EKG IV hydration. Patient was initially hypotensive at home per home nursing in the 70s. Was given fluids by EMS is now 120 systolic over 80 will give broad coverage antibiotics culture sent and are pending. Chest x-ray is overall improved from previous pneumonia urine is pending 04/28/19 01:33 pt wiht thick sounding cough. will cover with vanco zosyn for hcap. despite negative xray. abd nontene.r ua negative. will admit to Dr Delcid. Heart Score/ECG Review #1 ECG reviewed & interpreted by me at: 01:34 General ECG Interpretation: Sinus Rhythm, Normal Rate (62), Normal Intervals, No acute ischemic changes
[2019-04-28 01:24] LABS: URINE APPEARANCE CLEAR; URINE BILIRUBIN NEGATIVE (NEGATIVE); URINE COLOR YELLOW; URINE GLUCOSE (UA) NEGATIVE (NEGATIVE); URINE KETONE NEGATIVE (NEGATIVE); URINE LEUK ESTERASE NEGATIVE (NEGATIVE); URINE NITRITE NEGATIVE (NEGATIVE); URINE PROTEIN NEGATIVE (NEGATIVE); URINE UROBILINOGEN 0.2 mg/dL (0.2-1.0)
[2019-04-28] MEDS ORDERED: PIPERACILLIN/TAZOB 2.25 GM 2.25 GM in DEXTROSE 5%-WATER - 50 ML IVPB ONE (01:34)
[2019-04-28] MEDS ORDERED: PIPERACILLIN/TAZOB 2.25 GM 2.25 GM/50 ML BAG IVPB ONE (02:11)
[2019-04-28 04:25] LABS: ALLENS TEST POSITIVE
[2019-04-28 04:28] LABS: ARTERIAL BLD GAS O2 SATURATION 93.7 % (95-98); ARTERIAL BLOOD GAS PO2 74.1 mmHg (80-100); ARTERIAL BLOOD GAS pH 7.41 (7.35-7.45); CARBOXYHEMOGLOBIN 0.6 % (0-2)
[2019-04-28] MEDS ORDERED: guaiFENesin 200 MG/10 ML 10 ML UNIT-DOSE CUPS PO PRN (06:04)
[2019-04-28] MEDS ORDERED: ACETAMINOPHEN 325 MG TABLET (FP) PO PRN (06:04)
--- NOTE | 2019-04-28 06:10 | HP ---
Admitting History and Physical - Primary Care Physician PCP: Gini Delcid S - Admission Chief Complaint: weakness History of Present Illness: 84 y/o man with hx CHF, prior CVA, HTN, HLD, COPD, dementia recently discharged for pneumonia 2 days ago who presents with general weakness, hypotension and shortness of breath. No fevers. Per decreased po intake and some confusion at home. The patient gave limited history but is able to hold small conversation. He has no other complaints. 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 Cardiovascular: Yes: Aneurysm, CHF, HTN, Hyperlipdemia Pulmonary: Yes: COPD Gastrointestinal: Yes: Constipation, Other (SBO SB benign mass, s/p resection) Renal/: Yes: BPH, Cancer, Renal Calculi Infectious Disease: Yes: VREF (2017, cleared, ecoli esbl uti 2017-) Musculoskeletal: Yes: Hemiparesis Endocrine: Yes: Other - Smoking History Smoking history: Former smoker Have you smoked in the past 12 months: No Aproximately how many cigarettes per day: 10 If you are a former smoker, when did you quit?: 7 years ago - Alcohol/Substance Use Hx Alcohol Use: No History of Substance Use: reports: None - Social History Usual Living Arrangement: Yes: With Spouse Do you think of yourself as: Straight/Heterosexual ADL: Family Assistance 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 [employer] Housing History of Recent Travel: No Home Medications - Allergies Allergies/Adverse Reactions: Allergies Allergy/AdvReac Type Severity Reaction Status Date / Time No Known Allergies Allergy Verified 04/27/19 22:33 - Home Medications Home Medications: Ambulatory Orders Aspirin [ASA -] 81 mg PO DAILY #90 tab 06/26/17 Budesonide/Formeterol Fumarate [SYMBICORT 160/4.5mcg -] 1 puff IH BID #1 inhaler 06/26/17 Montelukast Na [Singulair -] 10 mg PO HS #30 tablet 06/26/17 Furosemide [Lasix -] 40 mg PO BID tablet 10/10/18 Atorvastatin Ca [Lipitor] 40 mg PO HS 01/21/19 Carvedilol [Coreg -] 6.25 mg PO DAILY 01/21/19 Clopidogrel Bisulfate [Plavix] 75 mg PO DAILY 01/21/19 Amlodipine Besylate 10 mg PO DAILY 04/17/19 Benzonatate 04/17/19 Doxazosin Mesylate [Cardura -] 2 mg PO DAILY 04/17/19 Polyvinyl Alcohol [Artificial Tears] 1 drop OU QID 04/19/19 Travoprost [Travatan Z] 1 drop OU DAILY 04/19/19 Acetaminophen [Tylenol .Regular Strength -] 650 mg PO TID PRN tablet 04/25/19 Carvedilol [Coreg -] 6.25 mg PO BID #180 tablet 04/25/19 Cefuroxime Axetil [Ceftin -] 500 mg PO BID #10 tablet 04/25/19 Docusate Sodium [Colace -] 100 mg PO DAILY capsule 04/25/19 Donepezil HCl [Aricept -] 5 mg PO DAILY tablet 04/25/19 Famotidine [Pepcid -] 20 mg PO DAILY tablet 04/25/19 Guaifenesin [Robitussin -] 10 ml PO Q6H PRN cup 04/25/19 Lisinopril [Prinivil] 5 mg PO DAILY #90 tablet 04/25/19 Polyethylene Glycol 3350 [Miralax 119 gm Btl -] 17 gm PO DAILY bottle 04/25/19 predniSONE [Deltasone -] 10 mg PO DAILY #20 tablet 04/25/19 Family Medical History Family History: Unremarkable Review of Systems - Review of Systems Constitutional: reports: Loss of Appetite, Weakness. denies: Chills, Diaphoresis, Fever, Lethargy Eyes: denies: Blurred Vision, Double Vision HENT: denies: Ear Pain, Epistaxis Neck: denies: Stiffness, Tenderness Cardiovascular: reports: Shortness of Breath. denies: Chest Pain, Palpitations Respiratory: reports: Cough, SOB Gastrointestinal: reports: Constipation. denies: Abdominal Pain, Vomiting Genitourinary: denies: Dysuria, Flank Pain, Hematuria Musculoskeletal: denies: Back Pain, Crepitus Integumentary: denies: Eczema, Erythema, Wound Neurological: reports: Confusion, Unsteady Gait, Weakness (general). denies: Change in LOC, Change in Speech, Dizziness Hematology/Lymphatic: denies: Easily Bruised, Excessive Bleeding Psychiatric: denies: Anxiety, Depression Physical Examination Vital Signs: Vital Signs Temperature 97.8 F 04/28/19 05:40 Pulse Rate 83 04/28/19 05:40 Respiratory Rate 20 04/28/19 05:40 Blood Pressure 130/60 04/28/19 05:40 O2 Sat by Pulse Oximetry (%) 95 04/28/19 05:35 Constitutional: Yes: No Distress, Calm Eyes: Yes: Conjunctiva Clear HENT: Yes: Atraumatic Neck: Yes: Supple Cardiovascular: Yes: Regular Rate and Rhythm Respiratory: Yes: Diminished Gastrointestinal: Yes: Soft. No: Tenderness Renal/: No: Hematuria Musculoskeletal: No: Joint Stiffness, Joint Swelling Extremities: No: Cold, Cool Edema: No Integumentary: No: Rash, Venous Stasis Changes Neurological: Yes: Alert ...Motor Strength: WNL Psychiatric: Yes: Alert. No: Agitated, Suicidal Ideation Labs: CBC, BMP 04/27/19 23:15 04/27/19 23:15 Imaging - Results Chest X-ray: Report Reviewed Other: Report Reviewed Assessment/Plan 84 y/o man with hx CHF, prior CVA, HTN, HLD, COPD, dementia recently discharged for pneumonia 2 days ago who presents with some tiredness, hypotension and shortness of breath. ARF/CRF dehydration hold lasix IV ATB IV steroids cardio, pulm and renal eval f/u labs falls decubs aspiration PFX HOB d/w pt and staff
[2019-04-28] MEDS: methylPREDNISolone NA SUCC 40 MG/1 ML VIAL IVPB SCH ×3 (07:30→17:15)
[2019-04-28] MEDS: ALBUTEROL SO4 0.083% IH SOL 2.5 MG/3 ML VIAL.NEB. NEB SCH ×4 (07:45→20:05)
[2019-04-28] MEDS ORDERED: DEXTROSE 5%-WATER - 50 ML IVPB ONE ×2 (09:50→16:37)
[2019-04-28] MEDS ORDERED: cefTRIAXone SODIUM 1 GM VIAL ONE (09:50)
[2019-04-28] MEDS ORDERED: PT OWN MED DRAWER 7, Y5N ONE ×2 (09:53→13:12)
[2019-04-28] MEDS ORDERED: PATIENT'S OWN MEDICATION (NON-FORMULARY) (Travoprost [Travatan Z] 1 DROP) OU SCH (10:00)
[2019-04-28] MEDS: ASPIRIN 81 MG CHEWABLE TABLETS PO SCH (10:00)
[2019-04-28] MEDS: DOCUSATE SODIUM 100 MG CAPSULE (FP) PO SCH (10:00)
[2019-04-28] MEDS ORDERED: LISINOPRIL 5 MG TABLET (FP) PO SCH (10:00)
[2019-04-28] MEDS: CARVEDILOL 6.25 MG TABLET (FP) PO SCH ×2 (10:00→21:50)
[2019-04-28] MEDS: POLYETHYLENE GLYCOL 3350 119 GM BTL PO SCH (10:00)
[2019-04-28] MEDS: CLOPIDOGREL BISULFATE 75 MG TABLET (FP) PO SCH (10:00)
[2019-04-28] MEDS: DONEPEZIL HCL 5 MG TABLET (FP) PO SCH (10:00)
[2019-04-28] MEDS ORDERED: CEFTRIAXONE 1 GM in DEXTROSE 5%-WATER - 50 ML IVPB SCH (10:00)
[2019-04-28] MEDS ORDERED: AZITHROMYCIN IVPB 500 MG/250 ML BAG IVPB SCH (10:00)
--- NOTE | 2019-04-28 10:00 | CONSULT ---
Consult - text type - Consultation Consultation Note: Renal consult for SOLANGE This is a 84 year old gentleman wit history of COPD, CHF with diastolic dysfunction, AAA, prostate Ca who presented from home with fever and low BP and found to have abnormal kidney function. Seen and examined at the bedside. Awake and alert but not able to provide a good history. Currently denies any fever, chills, chest pain. + Cough, minimal sputum. Has mild abdominal discomfort as well. No N/V/D. Unclear if he was using NSAIDs at home. No flank pain, dysuria, frequency or urgency. No skin rash. No bladder pain or distension. PMhx: as above Allergies: NKDA Family Hx: NC Social Hx: No T/A/D ROS: as per HPI, all other pertinent ros negative Home Medications Medication Instructions Recorded Aspirin [ASA -] 81 mg PO DAILY #90 tab 06/26/17 Budesonide/Formeterol Fumarate 1 puff IH BID #1 inhaler 06/26/17 [SYMBICORT 160/4.5mcg -] Montelukast Na [Singulair -] 10 mg PO HS #30 tablet 06/26/17 Furosemide [Lasix -] 40 mg PO BID tablet 10/10/18 Atorvastatin Ca [Lipitor] 40 mg PO HS 01/21/19 Carvedilol [Coreg -] 6.25 mg PO DAILY 01/21/19 Clopidogrel Bisulfate [Plavix] 75 mg PO DAILY 01/21/19 Amlodipine Besylate 10 mg PO DAILY 04/17/19 Benzonatate 04/17/19 Doxazosin Mesylate [Cardura -] 2 mg PO DAILY 04/17/19 Polyvinyl Alcohol [Artificial 1 drop OU QID 04/19/19 Tears] Travoprost [Travatan Z] 1 drop OU DAILY 04/19/19 Acetaminophen [Tylenol .Regular 650 mg PO TID PRN tablet 04/25/19 Strength -] Carvedilol [Coreg -] 6.25 mg PO BID #180 tablet 04/25/19 Cefuroxime Axetil [Ceftin -] 500 mg PO BID #10 tablet 04/25/19 Docusate Sodium [Colace -] 100 mg PO DAILY capsule 04/25/19 Donepezil HCl [Aricept -] 5 mg PO DAILY tablet 04/25/19 Famotidine [Pepcid -] 20 mg PO DAILY tablet 04/25/19 Guaifenesin [Robitussin -] 10 ml PO Q6H PRN cup 04/25/19 Lisinopril [Prinivil] 5 mg PO DAILY #90 tablet 04/25/19 Polyethylene Glycol 3350 [Miralax 17 gm PO DAILY bottle 04/25/19 119 gm Btl -] predniSONE [Deltasone -] 10 mg PO DAILY #20 tablet 04/25/19 Vital Signs Temperature 97.8 F 04/28/19 05:40 Pulse Rate 83 04/28/19 05:40 Respiratory Rate 20 04/28/19 05:40 Blood Pressure 130/60 04/28/19 05:40 O2 Sat by Pulse Oximetry (%) 95 04/28/19 05:35 Intake & Output 04/25/19 04/26/19 04/27/19 04/28/19 23:59 23:59 23:59 23:59 Intake Total 150 Balance 150 Weight 62.142 kg 58.513 kg NAD awake and alert neck supple no JVD RRR, no M/R CTA,no rales or wheeze soft NT/ND no bladder distension trace LE edema, no clubbing or cyanosis CBC, BMP 04/27/19 23:15 04/27/19 23:15 Laboratory Tests 04/23/19 04/25/19 04/27/19 08:00 10:20 23:15 Creatinine 0.7 0.8 1.9 H Laboratory Tests 04/27/19 04/28/19 23:40 01:46 Lactic Acid 2.7 H* 2.4 H* Current Medications Acetaminophen (Tylenol -) 650 mg PO TID PRN PRN Reason: FEVER Albuterol Sulfate (Ventolin 0.083% Nebulizer Soln -) 1 amp NEB RQ4H [facility] Artificial Tears (Artificial Tears) 1 drop OU QID [facility] Aspirin (Asa -) 81 mg PO DAILY [facility] Atorvastatin Calcium (Lipitor -) 40 mg PO HS [facility] Budesonide/Formoterol Fumarate (Symbicort 160/4.5mcg -) 1 puff IH BID [facility] Carvedilol (Coreg -) 6.25 mg PO BID [facility] Clopidogrel Bisulfate (Plavix -) 75 mg PO DAILY [facility] Docusate Sodium (Colace -) 100 mg PO DAILY [facility] Donepezil HCl (Aricept -) 5 mg PO DAILY [facility] Famotidine (Pepcid -) 20 mg PO DAILY [facility] Guaifenesin (Robitussin -) 10 ml PO Q6H PRN PRN Reason: COUGH Sodium Chloride (Normal Saline -) 1,000 mls @ 0 mls/hr IV ASDIR [facility] Last Admin: 04/28/19 00:55 Dose: 1,000 mls/hr Azithromycin (Zithromax 500mg Ivpb (Pre-Docked)) 500 mg in 250 mls @ 250 mls/ hr IVPB DAILY [facility] Ceftriaxone Sodium 1 gm/ (Dextrose) 50 mls @ 100 mls/hr IVPB DAILY [facility] Latanoprost (Xalatan 0.005% Eye Drops -) 1 drop OU HS [facility] Methylprednisolone Sodium Succinate (Solu-Medrol -) 40 mg IVPB Q8H-IV [facility] Montelukast Sodium (Singulair -) 10 mg PO HS [facility] Polyethylene Glycol (Miralax (For Daily Use) -) 17 gm PO DAILY [facility] 84 year old gentleman wit history of COPD, CHF with diastolic dysfunction, AAA , prostate Ca who presented from home with fever and low BP and found to have abnormal kidney function. 1. Acute kidney injury in setting of sepsis/hypotension 2. Lactic acidosis 3. Diastolic HF 4. COPD 5. Leukocytoiss suspect renal injury due to mild hypoprofusion in setting of infection Check urine studies for FeNa, UPCR and urine eosinophils Give trial of IVF: NS at 84cc per hour x 24 hours and then reaccess need for additional fluid based on volume status. Trend lactic acid to normal would avoid any AMBER/ARB or IV contrast Record urine output Cardiology follow up empiric antibiotics, follow up cultures Thank you Lucas Fontaine DO
[2019-04-28] MEDS: FAMOTIDINE 20 MG TABLET PO SCH (10:03)
--- NOTE | 2019-04-28 10:50 | EKG ---
Test Reason : Blood Pressure : / mmHG Vent. Rate : 062 BPM Atrial Rate : 062 BPM P-R Int : 208 ms QRS Dur : 086 ms QT Int : 454 ms P-R-T Axes : 072 -08 070 degrees QTc Int : 460 ms SINUS RHYTHM WITH PREMATURE ATRIAL COMPLEXES INFERIOR INFARCT , AGE UNDETERMINED ABNORMAL ECG WHEN COMPARED WITH ECG OF 17-APR-2019 08:12, PREMATURE ATRIAL COMPLEXES ARE NOW PRESENT VENT. RATE HAS DECREASED BY 38 BPM INFERIOR INFARCT IS NOW PRESENT Confirmed by BURTON HOOKS MD ([id number]) on 04/28/2019 10:50:09 AM Referred By: Confirmed By:BURTON HOOKS MD
--- NOTE | 2019-04-28 13:45 | PN ---
Progress Note (short form) - Note Progress Note: ID CONSULT DICTATED R/O HCAP/ SEPSIS SECONDARY TO PNEUMONIA LEUKOCYTOSIS AZOTEMIA LACTIC ACIDOSIS PENDING SEPSIS W/U EMPIRIC ZOSYN
[2019-04-28] MEDS: BUDESONIDE/FORMETEROL FUMARATE 160/4.5 mcg INHALER IH SCH ×2 (14:05→21:52)
[2019-04-28] MEDS: ARTIFICIAL TEARS (POLYVINYL ALCOHOL) OPTH DROPS OU SCH ×4 (14:05→21:53)
--- NOTE | 2019-04-28 14:38 | CONS ---
INFECTIOUS DISEASE CONSULTATION DATE OF CONSULTATION: DATE OF DICTATION: 04/28/2019 HISTORY OF PRESENT ILLNESS: The patient is an 84-year-old, male who is evaluated for sepsis. History was obtained from the chart, as he cannot give a history, secondary to dementia. He was recently hospitalized at [facility] from April 17 through April 26 for acute exacerbation of COPD and community-acquired pneumonia. He received a course of Zithromax and ceftriaxone. He now returned, after the visiting nurse noted him to be increasingly short of breath, febrile to 102, hypotensive with a blood pressure of 70 systolic, and increased confusion. He was evaluated at [facility] and admitted with possible sepsis, secondary to hospital-acquired pneumonia versus urinary tract infection. Cultures were obtained. He was empirically treated with Zosyn. He is awake, but is mildly confused. He is in no acute distress. His breathing is nonlabored. He has no focal complaint. PAST MEDICAL HISTORY: Positive for dementia, congestive heart failure, stroke, hypertension, hyperlipidemia, COPD. ALLERGIES: No known allergies. MEDICATIONS: Include Symbicort, Solu-Medrol, Zithromax, ceftriaxone, albuterol, Coreg, Colace, Pepcid, Lipitor, Singulair, aspirin, Aricept, Plavix. SOCIAL HISTORY: He lives at home in the community. He is a former smoker. Recent hospitalization, as described. SYSTEMS REVIEW: Neurologic: Positive for stroke and dementia. Cardiac: Negative chest pain or palpitations. Respiratory: As per HPI. Gastrointestinal: Negative vomiting or diarrhea. Genitourinary: Negative for urinary tract infection. LABORATORY DATA: White count 16.1, hematocrit 41.9, platelet count 351. Creatinine is 1.9, lactic acid 2.4. Urine: Leukocyte esterase negative. Influenza swab negative. IMAGING: Chest x-ray shows increased markings bases bilaterally. PHYSICAL EXAMINATION: General: On exam, he is awake, supine in bed. He is mildly confused. Breathing is nonlabored. Vital Signs: Temperature 98.1, blood pressure 121/73, pulse 71 regular, respirations 24 per minute. Eyes: Sclerae are anicteric. Heart: Heart sounds S1, S2. Lungs: Diminished breath sounds bases bilaterally. Abdomen: Soft and nontender. Extremities: Edema 1+. IMPRESSION: 1. Rule out healthcare-acquired pneumonia/sepsis, secondary to pneumonia. 2. Leukocytosis. 3. Azotemia. 4. Lactic acidosis. Await cultures. Obtain urine legionella and pneumococcal antigens. Empiric antibiotic coverage for healthcare-acquired pathogens with Zosyn. Will follow. Thank you for the kind referral. BURTON SHI M.D. [id number]
--- NOTE | 2019-04-28 15:37 | CON.PULM ---
Consult Consult Specialty:: PULMONARY Referred by:: [facility] Reason for Consultation:: PNEUMONIA - History of Present Illness Chief Complaint: SOB/COUGH History of Present Illness: 84 y/o man with hx CHF, prior CVA, HTN, HLD, COPD, dementia recently discharged for pneumonia who presents with some tiredness, hypotension and shortness of breath. Per the patient had trouble sleeping last night and the home health aid measured a systolic blood pressure in the 70s and the home pulse ox was not able to pickling solution maker and O2. denies any fevers. 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 Cardio/Vascular: Yes: Aneurysm, CHF, HTN, Hyperlipdemia Pulmonary: Yes: COPD Gastrointestinal: Yes: Constipation, Other (SBO SB benign mass, s/p resection) Renal/: Yes: BPH, Cancer, Renal Calculi Infectious Disease: Yes: VREF (2017, cleared, ecoli esbl uti 2017-) Musculoskeletal: Yes: Hemiparesis Endocrine: Yes: Other - Alcohol/Substance Use Hx Alcohol Use: No History of Substance Use: reports: None - Smoking History Smoking history: Former smoker Have you smoked in the past 12 months: No Aproximately how many cigarettes per day: 10 If you are a former smoker, when did you quit?: 7 years ago - Social History Usual Living Arrangement: With Spouse ADL: Family Assistance 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 [employer] History of Recent Travel: No Home Medications - Allergies Allergies/Adverse Reactions: Allergies Allergy/AdvReac Type Severity Reaction Status Date / Time No Known Allergies Allergy Verified 04/27/19 22:33 - Home Medications Home Medications: Ambulatory Orders Aspirin [ASA -] 81 mg PO DAILY #90 tab 06/26/17 Budesonide/Formeterol Fumarate [SYMBICORT 160/4.5mcg -] 1 puff IH BID #1 inhaler 06/26/17 Montelukast Na [Singulair -] 10 mg PO HS #30 tablet 06/26/17 Furosemide [Lasix -] 40 mg PO BID tablet 10/10/18 Atorvastatin Ca [Lipitor] 40 mg PO HS 01/21/19 Carvedilol [Coreg -] 6.25 mg PO DAILY 01/21/19 Clopidogrel Bisulfate [Plavix] 75 mg PO DAILY 01/21/19 Amlodipine Besylate 10 mg PO DAILY 04/17/19 Benzonatate 04/17/19 Doxazosin Mesylate [Cardura -] 2 mg PO DAILY 04/17/19 Polyvinyl Alcohol [Artificial Tears] 1 drop OU QID 04/19/19 Travoprost [Travatan Z] 1 drop OU DAILY 04/19/19 Acetaminophen [Tylenol .Regular Strength -] 650 mg PO TID PRN tablet 04/25/19 Carvedilol [Coreg -] 6.25 mg PO BID #180 tablet 04/25/19 Cefuroxime Axetil [Ceftin -] 500 mg PO BID #10 tablet 04/25/19 Docusate Sodium [Colace -] 100 mg PO DAILY capsule 04/25/19 Donepezil HCl [Aricept -] 5 mg PO DAILY tablet 04/25/19 Famotidine [Pepcid -] 20 mg PO DAILY tablet 04/25/19 Guaifenesin [Robitussin -] 10 ml PO Q6H PRN cup 04/25/19 Lisinopril [Prinivil] 5 mg PO DAILY #90 tablet 04/25/19 Polyethylene Glycol 3350 [Miralax 119 gm Btl -] 17 gm PO DAILY bottle 04/25/19 predniSONE [Deltasone -] 10 mg PO DAILY #20 tablet 04/25/19 Family Medical History Family History: Unremarkable Review of Systems Unable to obtain ROS, reason: unable to obtain Physical Exam Vital Sings: Vital Signs Temperature 98.1 F 04/28/19 13:00 Pulse Rate 73 04/28/19 13:00 Respiratory Rate 20 04/28/19 13:00 Blood Pressure 115/64 04/28/19 13:00 O2 Sat by Pulse Oximetry (%) 98 04/28/19 09:00 Constitutional: Yes: Thin Eyes: Yes: Conjunctiva Clear HENT: Yes: Atraumatic Neck: Yes: Supple Cardiovascular: Yes: S1, S2 Respiratory: Yes: Diminished Gastrointestinal: Yes: Normal Bowel Sounds Edema: No Neurological: Yes: Confusion Labs: CBC, BMP 04/27/19 23:15 04/27/19 23:15 ABG Results ABG pH 7.41 (7.35-7.45) 04/28/19 04:19 ABG pCO2 at Pt Temp 50.0 mmHg (35-45) H 04/28/19 04:19 ABG pO2 at Pt Temp 74.1 mmHg (80-100) L 04/28/19 04:19 ABG HCO3 31.4 mmol/L (22-27) H 04/28/19 04:19 ABG O2 Sat (Measured) 93.7 % (95-98) L 04/28/19 04:19 ABG O2 Content 17.7 % vol 04/28/19 04:19 ABG Base Excess 6.0 meq/l (-2-2) H 04/28/19 04:19 rest reviewed Imaging - Results Chest X-ray: Report Reviewed, Image Reviewed Ultrasound: Report Reviewed Problem List - Problems (1) Sepsis Code(s): A41.9 - SEPSIS, UNSPECIFIED ORGANISM (2) Dementia Code(s): F03.90 - UNSPECIFIED DEMENTIA WITHOUT BEHAVIORAL DISTURBANCE (3) Pneumonia Code(s): J18.9 - PNEUMONIA, UNSPECIFIED ORGANISM Qualifiers: Pneumonia type: aspiration pneumonia Aspiration pneumonia type: unspecified Laterality: bilateral Lung location: unspecified part of lung Qualified Code(s): J69.0 - Pneumonitis due to inhalation of food and vomit (4) Wasting syndrome Code(s): R64 - CACHEXIA Assessment/Plan Fluids/antibiotics/o2/bronchodilators dvt prophylaxsis check suarez culture will follow Salina SIMMONS MD
[2019-04-28] MEDS ORDERED: PIPERACILLIN/TAZOBACTAM 2.25 GM VIAL IVPB ONE (16:37)
[2019-04-28] MEDS: PIPERACILLIN/TAZOB 2.25 GM 2.25 GM in DEXTROSE 5%-WATER - 50 ML IVPB SCH (17:16)
--- NOTE | 2019-04-28 19:51 | CON.CARD ---
Consult Consult Specialty:: cardiology Reason for Consultation:: hypotension; diastolic CHF - History of Present Illness Chief Complaint: Pt sitting up; lethargic, responds after repeated queries, but resists meds. Pt's is at bedside. History of Present Illness: 84-year-old black male with PM history of COPD, diastolic CHF, hypertension, abdominal aortic aneurysm, prostate CA, arthritis, dementia, recently admitted and discharged yesterday for pneumonia,, COPD, and slight CHF exacerbation. Here today with concerns by the and the home health aide for a fever 102, hypotension, and with increasing lethargy. Patient's provides history as the patient is currently not answering any questions denies any nausea or vomiting does still have a cough; no other current complaints. 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 Cardio/Vascular: Yes: Aneurysm, CHF, HTN, Hyperlipdemia Pulmonary: Yes: COPD Gastrointestinal: Yes: Constipation, Other (SBO SB benign mass, s/p resection) Renal/: Yes: BPH, Cancer, Renal Calculi Infectious Disease: Yes: VREF (2017, cleared, ecoli esbl uti 2017-) Musculoskeletal: Yes: Hemiparesis Endocrine: Yes: Other - Alcohol/Substance Use Hx Alcohol Use: No History of Substance Use: reports: None - Smoking History Smoking history: Former smoker Have you smoked in the past 12 months: No Aproximately how many cigarettes per day: 10 If you are a former smoker, when did you quit?: 7 years ago - Social History Usual Living Arrangement: With Spouse ADL: Family Assistance 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 [employer] History of Recent Travel: No Home Medications - Allergies Allergies/Adverse Reactions: Allergies Allergy/AdvReac Type Severity Reaction Status Date / Time No Known Allergies Allergy Verified 04/27/19 22:33 - Home Medications Home Medications: Ambulatory Orders Aspirin [ASA -] 81 mg PO DAILY #90 tab 06/26/17 Budesonide/Formeterol Fumarate [SYMBICORT 160/4.5mcg -] 1 puff IH BID #1 inhaler 06/26/17 Montelukast Na [Singulair -] 10 mg PO HS #30 tablet 06/26/17 Furosemide [Lasix -] 40 mg PO BID tablet 10/10/18 Atorvastatin Ca [Lipitor] 40 mg PO HS 01/21/19 Carvedilol [Coreg -] 6.25 mg PO DAILY 01/21/19 Clopidogrel Bisulfate [Plavix] 75 mg PO DAILY 01/21/19 Amlodipine Besylate 10 mg PO DAILY 04/17/19 Benzonatate 04/17/19 Doxazosin Mesylate [Cardura -] 2 mg PO DAILY 04/17/19 Polyvinyl Alcohol [Artificial Tears] 1 drop OU QID 04/19/19 Travoprost [Travatan Z] 1 drop OU DAILY 04/19/19 Acetaminophen [Tylenol .Regular Strength -] 650 mg PO TID PRN tablet 04/25/19 Carvedilol [Coreg -] 6.25 mg PO BID #180 tablet 04/25/19 Cefuroxime Axetil [Ceftin -] 500 mg PO BID #10 tablet 04/25/19 Docusate Sodium [Colace -] 100 mg PO DAILY capsule 04/25/19 Donepezil HCl [Aricept -] 5 mg PO DAILY tablet 04/25/19 Famotidine [Pepcid -] 20 mg PO DAILY tablet 04/25/19 Guaifenesin [Robitussin -] 10 ml PO Q6H PRN cup 04/25/19 Lisinopril [Prinivil] 5 mg PO DAILY #90 tablet 04/25/19 Polyethylene Glycol 3350 [Miralax 119 gm Btl -] 17 gm PO DAILY bottle 04/25/19 predniSONE [Deltasone -] 10 mg PO DAILY #20 tablet 04/25/19 Family Medical History Family History: Denies Review of Systems Unable to obtain ROS, reason: disoriented - Risk Factors Known Risk Factors: Yes: Age, Gender Vital Signs: Vital Signs Temperature 97.8 F 04/28/19 17:33 Pulse Rate 70 04/28/19 17:33 Respiratory Rate 20 04/28/19 13:00 Blood Pressure 134/64 04/28/19 17:33 O2 Sat by Pulse Oximetry (%) 98 04/28/19 09:00 Constitutional: Yes: Thin Eyes: Yes: WNL HENT: Yes: WNL Neck: Yes: WNL Respiratory: Yes: Regular Gastrointestinal: Yes: Soft Renal/: No: Anuria Cardiovascular: Yes: Regular Rate and Rhythm Heart Sounds: Yes: S1, S2 Murmur: Yes: Systolic Murmur, Grade 1 Musculoskeletal: Yes: Muscle Weakness Extremities: Yes: Cool Edema: No Peripheral Pulses WNL: Yes Integumentary: Yes: WNL Neurological: Yes: Confusion, Weakness Psychiatric: Yes: Other - Other Data Labs, Other Data: CBC, BMP 04/27/19 23:15 04/27/19 23:15 Troponin, BNP 04/27/19 23:15 Troponin I 0.02 B-Natriuretic Peptide 277.6 Troponin, BNP 04/27/19 23:15 Troponin I 0.02 B-Natriuretic Peptide 277.6 Abnormal Lab Results 04/28/19 04/28/19 04/28/19 04:19 23:00 23:00 ABG pCO2 at Pt Temp 50.0 H ABG pO2 at Pt Temp 74.1 L ABG HCO3 31.4 H ABG O2 Sat (Measured) 93.7 L ABG Base Excess 6.0 H U Random Total Protein 21.7 H Ur Random Sodium 32 L Echo: Report Reviewed Ejection Fraction %: LVEF > or = 40 % Imaging - Results Chest X-ray: Image Reviewed EKG: Image Reviewed Problem List - Problems (1) Sepsis Assessment/Plan: Leukodytosis CXR: no acute process. F/u cultures, temperature. Code(s): A41.9 - SEPSIS, UNSPECIFIED ORGANISM (2) Abdominal aortic aneurysm (AAA) Code(s): I71.4 - ABDOMINAL AORTIC ANEURYSM, WITHOUT RUPTURE (3) CHF (congestive heart failure) Code(s): I50.9 - HEART FAILURE, UNSPECIFIED Qualifiers: Heart failure type: unspecified Heart failure chronicity: chronic Qualified Code(s): I50.9 - Heart failure, unspecified (4) COPD exacerbation Code(s): J44.1 - CHRONIC OBSTRUCTIVE PULMONARY DISEASE W (ACUTE) EXACERBATION (5) Chronic obstructive pulmonary disease Code(s): J44.9 - CHRONIC OBSTRUCTIVE PULMONARY DISEASE, UNSPECIFIED (6) Diastolic CHF Code(s): I50.30 - UNSPECIFIED DIASTOLIC (CONGESTIVE) HEART FAILURE (7) Hyperlipidemia Code(s): E78.5 - HYPERLIPIDEMIA, UNSPECIFIED (8) Weakness Code(s): R53.1 - WEAKNESS (9) Dehydration Assessment/Plan: acute elevation of BUN/Cr compared to recent admission. Fluids; f/u Is and Os, BUN/Cr. Code(s): E86.0 - DEHYDRATION (10) Hypotension Assessment/Plan: reportedly hypotensive and febrile at home. On carvedilol. Code(s): I95.9 - HYPOTENSION, UNSPECIFIED
[2019-04-28] MEDS: MONTELUKAST NA 10 MG TABLET PO SCH (21:50)
[2019-04-28] MEDS: ATORVASTATIN CA 40 MG TABLET (FP) PO SCH (21:50)
[2019-04-28] MEDS: LATANOPROST 0.005% OPHTH SOLN 2.5ML BOTTLE OU SCH (21:50)
[2019-04-29] MEDS ORDERED: PIPERACILLIN/TAZOBACTAM 2.25 GM VIAL IVPB ONE ×3 (00:22→16:47)
[2019-04-29] MEDS ORDERED: DEXTROSE 5%-WATER - 50 ML IVPB ONE ×3 (00:22→16:48)
[2019-04-29] MEDS: ALBUTEROL SO4 0.083% IH SOL 2.5 MG/3 ML VIAL.NEB. NEB SCH ×6 (00:30→21:20)
[2019-04-29] MEDS: methylPREDNISolone NA SUCC 40 MG/1 ML VIAL IVPB SCH ×3 (01:00→17:36)
[2019-04-29] MEDS: PIPERACILLIN/TAZOB 2.25 GM 2.25 GM in DEXTROSE 5%-WATER - 50 ML IVPB SCH ×3 (02:00→17:33)
[2019-04-29] MEDS: ARTIFICIAL TEARS (POLYVINYL ALCOHOL) OPTH DROPS OU SCH ×4 (10:30→21:37)
[2019-04-29] MEDS: DOCUSATE SODIUM 100 MG CAPSULE (FP) PO SCH (10:30)
[2019-04-29] MEDS: ASPIRIN 81 MG CHEWABLE TABLETS PO SCH (10:30)
[2019-04-29] MEDS: CARVEDILOL 6.25 MG TABLET (FP) PO SCH ×2 (10:30→21:37)
[2019-04-29] MEDS: CLOPIDOGREL BISULFATE 75 MG TABLET (FP) PO SCH (10:30)
[2019-04-29] MEDS: DONEPEZIL HCL 5 MG TABLET (FP) PO SCH (10:30)
[2019-04-29] MEDS: POLYETHYLENE GLYCOL 3350 119 GM BTL PO SCH (10:31)
[2019-04-29] MEDS: FAMOTIDINE 20 MG TABLET PO SCH (10:31)
[2019-04-29] MEDS: BUDESONIDE/FORMETEROL FUMARATE 160/4.5 mcg INHALER IH SCH ×2 (10:32→21:37)
[2019-04-29 10:59] LABS: BASO % 0.1 % (0-2.0); HEMATOCRIT 40.2 % (35.4-49); HEMOGLOBIN 12.9 GM/dL (11.7-16.9); LYMPH % 3.4 % (8-40); MCH 27.3 pg (25.7-33.7); MCHC 32.1 g/dl (32.0-35.9); MEAN CELL VOLUME 85.1 fl (80-96); MEAN PLT VOLUME 7.3 fl (7.5-11.1); MONO % 3.9 % (3.8-10.2); NEUT % 92.6 % (42.8-82.8); PLATELET COUNT 330 K/MM3 (134-434); RBC 4.72 M/mm3 (4.00-5.60); RDW 14.7 % (11.9-15.9); WHITE BLOOD COUNT 14.9 K/mm3 (4.0-10.0)
[2019-04-29 11:13] LABS: ALBUMIN 2.4 g/dl (3.4-5.0); BILIRUBIN,TOTAL 0.8 mg/dL (0.2-1); BLOOD UREA NITROGEN 16.7 mg/dL (7-18); CALCIUM 8.9 mg/dL (8.5-10.1); CREATININE 0.7 mg/dL (0.55-1.3); PHOSPHOROUS 2.1 mg/dL (2.5-4.9); POTASSIUM 4.3 mmol/L (3.5-5.1)
--- NOTE | 2019-04-29 12:03 | PN ---
Progress Note, Physician Chief Complaint: Cardiology for Dr. Butt History of Present Illness: Afebrile and hemodynamics stable. Mental status improving now eating lunch in bed. - Current Medication List Current Medications: Active Medications Acetaminophen (Tylenol -) 650 mg PO TID PRN PRN Reason: FEVER Albuterol Sulfate (Ventolin 0.083% Nebulizer Soln -) 1 amp NEB RQ4H [facility] Last Admin: 04/29/19 07:48 Dose: 1 amp Artificial Tears (Artificial Tears) 1 drop OU QID [facility] Last Admin: 04/29/19 10:30 Dose: 1 drop Aspirin (Asa -) 81 mg PO DAILY [facility] Last Admin: 04/29/19 10:30 Dose: 81 mg Atorvastatin Calcium (Lipitor -) 40 mg PO HS [facility] Last Admin: 04/28/19 21:50 Dose: 40 mg Budesonide/Formoterol Fumarate (Symbicort 160/4.5mcg -) 1 puff IH BID [facility] Last Admin: 04/29/19 10:32 Dose: 1 puff Carvedilol (Coreg -) 6.25 mg PO BID [facility] Last Admin: 04/29/19 10:30 Dose: 6.25 mg Clopidogrel Bisulfate (Plavix -) 75 mg PO DAILY [facility] Last Admin: 04/29/19 10:30 Dose: 75 mg Docusate Sodium (Colace -) 100 mg PO DAILY [facility] Last Admin: 04/29/19 10:30 Dose: 100 mg Donepezil HCl (Aricept -) 5 mg PO DAILY [facility] Last Admin: 04/29/19 10:30 Dose: 5 mg Famotidine (Pepcid -) 20 mg PO DAILY [facility] Last Admin: 04/29/19 10:31 Dose: 20 mg Guaifenesin (Robitussin -) 10 ml PO Q6H PRN PRN Reason: COUGH Last Admin: 04/28/19 16:54 Dose: 10 ml Piperacillin Sod/Tazobactam (Sod 2.25 gm/ Dextrose) 50 mls @ 100 mls/hr IVPB Q8H-IV [facility]; Protocol Last Admin: 04/29/19 10:29 Dose: 100 mls/hr Latanoprost (Xalatan 0.005% Eye Drops -) 1 drop OU HS [facility] Last Admin: 04/28/19 21:50 Dose: 1 drop Methylprednisolone Sodium Succinate (Solu-Medrol -) 40 mg IVPB Q8H-IV [facility] Last Admin: 04/29/19 10:29 Dose: 40 mg Montelukast Sodium (Singulair -) 10 mg PO HS [facility] Last Admin: 04/28/19 21:50 Dose: 10 mg Polyethylene Glycol (Miralax (For Daily Use) -) 17 gm PO DAILY [facility] Last Admin: 04/29/19 10:31 Dose: 17 gm - Objective Vital Signs: Vital Signs Temperature 98.1 F 04/29/19 09:00 Pulse Rate 72 04/29/19 09:00 Respiratory Rate 20 04/29/19 09:00 Blood Pressure 154/78 04/29/19 09:00 O2 Sat by Pulse Oximetry (%) 100 04/29/19 09:00 Constitutional: Yes: No Distress, Calm, Thin Neck: Yes: Supple Cardiovascular: Yes: Regular Rate and Rhythm Respiratory: Yes: Regular, Diminished, On Nasal O2 Gastrointestinal: Yes: Normal Bowel Sounds, Soft Edema: No Labs: CBC, BMP 04/29/19 09:58 04/29/19 09:58 Assessment/Plan 04/28/2019 Renal US: No hydronephrosis or stones Problem List - Problems (1) Sepsis Assessment/Plan: Leukocytosis CXR: no acute process. F/u cultures, temperature, abx per C&S Code(s): A41.9 - SEPSIS, UNSPECIFIED ORGANISM (2) Abdominal aortic aneurysm (AAA) Code(s): I71.4 - ABDOMINAL AORTIC ANEURYSM, WITHOUT RUPTURE (3) CHF (congestive heart failure) Code(s): I50.9 - HEART FAILURE, UNSPECIFIED Qualifiers: Heart failure type: unspecified Heart failure chronicity: chronic Qualified Code(s): I50.9 - Heart failure, unspecified (4) COPD exacerbation Code(s): J44.1 - CHRONIC OBSTRUCTIVE PULMONARY DISEASE W (ACUTE) EXACERBATION Singulair, BD, O2 as needed, IV steroids with GI protection (5) Chronic obstructive pulmonary disease Code(s): J44.9 - CHRONIC OBSTRUCTIVE PULMONARY DISEASE, UNSPECIFIED (6) Diastolic CHF Code(s): I50.30 - UNSPECIFIED DIASTOLIC (CONGESTIVE) HEART FAILURE (7) Hyperlipidemia Code(s): E78.5 - HYPERLIPIDEMIA, UNSPECIFIED Lipitor 40 qd (8) Weakness Code(s): R53.1 - WEAKNESS (9) Dehydration Assessment/Plan: acute elevation of BUN/Cr compared to recent admission. Fluids; f/u Is and Os, BUN/Cr. Code(s): E86.0 - DEHYDRATION (10) Hypotension Assessment/Plan: reportedly hypotensive and febrile at home. On carvedilol 6.25 bid, d/c IVF now that he's eating. Code(s): I95.9 - HYPOTENSION, UNSPECIFIED (11) SOLANGE (acute kidney injury) Code(s): N17.9 - ACUTE KIDNEY FAILURE, UNSPECIFIED In context of sepsis and hypotension resolved
[2019-04-29 12:34] LABS: PLATELET ESTIMATE NORMAL
--- NOTE | 2019-04-29 12:54 | PN ---
Progress Note, Physician History of Present Illness: AWAKE, ALERT NO COMPLAINTS AFEBRILE - Current Medication List Current Medications: Active Medications Acetaminophen (Tylenol -) 650 mg PO TID PRN PRN Reason: FEVER Albuterol Sulfate (Ventolin 0.083% Nebulizer Soln -) 1 amp NEB RQ4H [facility] Last Admin: 04/29/19 11:25 Dose: 1 amp Artificial Tears (Artificial Tears) 1 drop OU QID [facility] Last Admin: 04/29/19 10:30 Dose: 1 drop Aspirin (Asa -) 81 mg PO DAILY [facility] Last Admin: 04/29/19 10:30 Dose: 81 mg Atorvastatin Calcium (Lipitor -) 40 mg PO HS [facility] Last Admin: 04/28/19 21:50 Dose: 40 mg Budesonide/Formoterol Fumarate (Symbicort 160/4.5mcg -) 1 puff IH BID [facility] Last Admin: 04/29/19 10:32 Dose: 1 puff Carvedilol (Coreg -) 6.25 mg PO BID [facility] Last Admin: 04/29/19 10:30 Dose: 6.25 mg Clopidogrel Bisulfate (Plavix -) 75 mg PO DAILY [facility] Last Admin: 04/29/19 10:30 Dose: 75 mg Docusate Sodium (Colace -) 100 mg PO DAILY [facility] Last Admin: 04/29/19 10:30 Dose: 100 mg Donepezil HCl (Aricept -) 5 mg PO DAILY [facility] Last Admin: 04/29/19 10:30 Dose: 5 mg Famotidine (Pepcid -) 20 mg PO DAILY [facility] Last Admin: 04/29/19 10:31 Dose: 20 mg Guaifenesin (Robitussin -) 10 ml PO Q6H PRN PRN Reason: COUGH Last Admin: 04/28/19 16:54 Dose: 10 ml Piperacillin Sod/Tazobactam (Sod 2.25 gm/ Dextrose) 50 mls @ 100 mls/hr IVPB Q8H-IV [facility]; Protocol Last Admin: 04/29/19 10:29 Dose: 100 mls/hr Latanoprost (Xalatan 0.005% Eye Drops -) 1 drop OU HS [facility] Last Admin: 04/28/19 21:50 Dose: 1 drop Methylprednisolone Sodium Succinate (Solu-Medrol -) 40 mg IVPB Q8H-IV [facility] Last Admin: 04/29/19 10:29 Dose: 40 mg Montelukast Sodium (Singulair -) 10 mg PO HS [facility] Last Admin: 04/28/19 21:50 Dose: 10 mg Polyethylene Glycol (Miralax (For Daily Use) -) 17 gm PO DAILY [facility] Last Admin: 04/29/19 10:31 Dose: 17 gm - Objective Vital Signs: Vital Signs Temperature 98.1 F 04/29/19 09:00 Pulse Rate 72 04/29/19 09:00 Respiratory Rate 20 04/29/19 09:00 Blood Pressure 154/78 04/29/19 09:00 O2 Sat by Pulse Oximetry (%) 100 04/29/19 09:00 Constitutional: Yes: No Distress Eyes: Yes: Conjunctiva Clear Cardiovascular: Yes: Regular Rate and Rhythm, S1, S2 Respiratory: Yes: CTA Bilaterally Gastrointestinal: Yes: Normal Bowel Sounds, Soft. No: Tenderness Edema: Yes Edema: LLE: 1+, RLE: 1+ Labs: CBC, BMP 04/29/19 09:58 04/29/19 09:58 Assessment/Plan R/O HCAP LEUKOCYTOSIS LACTIC ACIDOSIS AZOTEMIA IMPROVED AWAIT C/S CONTINUE EMPIRIC ZOSYN
--- NOTE | 2019-04-29 13:39 | PN ---
Progress Note, Physician History of Present Illness: Pt breathing is better, no CP/ palpitations/ SOB/ abd pain N/ V. - Current Medication List Current Medications: Active Medications Acetaminophen (Tylenol -) 650 mg PO TID PRN PRN Reason: FEVER Albuterol Sulfate (Ventolin 0.083% Nebulizer Soln -) 1 amp NEB RQ4H [facility] Last Admin: 04/29/19 11:25 Dose: 1 amp Artificial Tears (Artificial Tears) 1 drop OU QID [facility] Last Admin: 04/29/19 10:30 Dose: 1 drop Aspirin (Asa -) 81 mg PO DAILY [facility] Last Admin: 04/29/19 10:30 Dose: 81 mg Atorvastatin Calcium (Lipitor -) 40 mg PO HS [facility] Last Admin: 04/28/19 21:50 Dose: 40 mg Budesonide/Formoterol Fumarate (Symbicort 160/4.5mcg -) 1 puff IH BID [facility] Last Admin: 04/29/19 10:32 Dose: 1 puff Carvedilol (Coreg -) 6.25 mg PO BID [facility] Last Admin: 04/29/19 10:30 Dose: 6.25 mg Clopidogrel Bisulfate (Plavix -) 75 mg PO DAILY [facility] Last Admin: 04/29/19 10:30 Dose: 75 mg Docusate Sodium (Colace -) 100 mg PO DAILY [facility] Last Admin: 04/29/19 10:30 Dose: 100 mg Donepezil HCl (Aricept -) 5 mg PO DAILY [facility] Last Admin: 04/29/19 10:30 Dose: 5 mg Famotidine (Pepcid -) 20 mg PO DAILY [facility] Last Admin: 04/29/19 10:31 Dose: 20 mg Guaifenesin (Robitussin -) 10 ml PO Q6H PRN PRN Reason: COUGH Last Admin: 04/28/19 16:54 Dose: 10 ml Piperacillin Sod/Tazobactam (Sod 2.25 gm/ Dextrose) 50 mls @ 100 mls/hr IVPB Q8H-IV [facility]; Protocol Last Admin: 04/29/19 10:29 Dose: 100 mls/hr Latanoprost (Xalatan 0.005% Eye Drops -) 1 drop OU HS [facility] Last Admin: 04/28/19 21:50 Dose: 1 drop Methylprednisolone Sodium Succinate (Solu-Medrol -) 40 mg IVPB Q8H-IV [facility] Last Admin: 04/29/19 10:29 Dose: 40 mg Montelukast Sodium (Singulair -) 10 mg PO HS [facility] Last Admin: 04/28/19 21:50 Dose: 10 mg Polyethylene Glycol (Miralax (For Daily Use) -) 17 gm PO DAILY [facility] Last Admin: 04/29/19 10:31 Dose: 17 gm - Objective Vital Signs: Vital Signs Temperature 98.1 F 04/29/19 09:00 Pulse Rate 72 04/29/19 09:00 Respiratory Rate 20 04/29/19 09:00 Blood Pressure 154/78 04/29/19 09:00 O2 Sat by Pulse Oximetry (%) 100 04/29/19 09:00 Constitutional: Yes: No Distress, Calm Cardiovascular: Yes: Regular Rate and Rhythm, S1, S2 Respiratory: Yes: Regular, Rhonchi (minimal, scattered with deep inspiration), Other (coarse BS) Gastrointestinal: Yes: Normal Bowel Sounds, Soft. No: Tenderness Edema: No Neurological: Yes: Alert, Oriented Labs: CBC, BMP 04/29/19 09:58 04/29/19 09:58 Problem List - Problems (1) Sepsis Code(s): A41.9 - SEPSIS, UNSPECIFIED ORGANISM (2) Pneumonia Code(s): J18.9 - PNEUMONIA, UNSPECIFIED ORGANISM Qualifiers: Pneumonia type: aspiration pneumonia Aspiration pneumonia type: unspecified Laterality: bilateral Lung location: unspecified part of lung Qualified Code(s): J69.0 - Pneumonitis due to inhalation of food and vomit (3) SOLANGE (acute kidney injury) Code(s): N17.9 - ACUTE KIDNEY FAILURE, UNSPECIFIED (4) CHF (congestive heart failure) Code(s): I50.9 - HEART FAILURE, UNSPECIFIED Qualifiers: Heart failure type: unspecified Heart failure chronicity: chronic Qualified Code(s): I50.9 - Heart failure, unspecified (5) COPD exacerbation Code(s): J44.1 - CHRONIC OBSTRUCTIVE PULMONARY DISEASE W (ACUTE) EXACERBATION (6) Prostate cancer Code(s): C61 - MALIGNANT NEOPLASM OF PROSTATE Assessment/Plan Continue IV abtx Continue Steroids Pulmonary, Cardio, Renal consults are appreciated. AM labs
--- NOTE | 2019-04-29 14:16 | PN ---
Progress Note (short form) - Note Progress Note: PULMONARY States breathing better. Less cough. No fevers. Vital Signs Period Temp Pulse Resp BP Sys/Hernandez Pulse Ox Last 24 Hr 97.7 F-98.2 F 63-72 18-20 134-154/64-78 98-100 Gen: NAD at rest Heart: RRR Lung: distant breath sounds Abd: soft, nontender Ext: no edema CBC, BMP 04/29/19 09:58 04/29/19 09:58 Active Medications Acetaminophen (Tylenol -) 650 mg PO TID PRN PRN Reason: FEVER Albuterol Sulfate (Ventolin 0.083% Nebulizer Soln -) 1 amp NEB RQ4H [facility] Last Admin: 04/29/19 11:25 Dose: 1 amp Artificial Tears (Artificial Tears) 1 drop OU QID [facility] Last Admin: 04/29/19 13:39 Dose: 1 drop Aspirin (Asa -) 81 mg PO DAILY [facility] Last Admin: 04/29/19 10:30 Dose: 81 mg Atorvastatin Calcium (Lipitor -) 40 mg PO HS [facility] Last Admin: 04/28/19 21:50 Dose: 40 mg Budesonide/Formoterol Fumarate (Symbicort 160/4.5mcg -) 1 puff IH BID [facility] Last Admin: 04/29/19 10:32 Dose: 1 puff Carvedilol (Coreg -) 6.25 mg PO BID [facility] Last Admin: 04/29/19 10:30 Dose: 6.25 mg Clopidogrel Bisulfate (Plavix -) 75 mg PO DAILY [facility] Last Admin: 04/29/19 10:30 Dose: 75 mg Docusate Sodium (Colace -) 100 mg PO DAILY [facility] Last Admin: 04/29/19 10:30 Dose: 100 mg Donepezil HCl (Aricept -) 5 mg PO DAILY [facility] Last Admin: 04/29/19 10:30 Dose: 5 mg Famotidine (Pepcid -) 20 mg PO DAILY [facility] Last Admin: 04/29/19 10:31 Dose: 20 mg Guaifenesin (Robitussin -) 10 ml PO Q6H PRN PRN Reason: COUGH Last Admin: 04/28/19 16:54 Dose: 10 ml Piperacillin Sod/Tazobactam (Sod 2.25 gm/ Dextrose) 50 mls @ 100 mls/hr IVPB Q8H-IV [facility]; Protocol Last Admin: 04/29/19 10:29 Dose: 100 mls/hr Latanoprost (Xalatan 0.005% Eye Drops -) 1 drop OU HS [facility] Last Admin: 04/28/19 21:50 Dose: 1 drop Methylprednisolone Sodium Succinate (Solu-Medrol -) 40 mg IVPB Q8H-IV [facility] Last Admin: 04/29/19 10:29 Dose: 40 mg Montelukast Sodium (Singulair -) 10 mg PO HS [facility] Last Admin: 04/28/19 21:50 Dose: 10 mg Polyethylene Glycol (Miralax (For Daily Use) -) 17 gm PO DAILY [facility] Last Admin: 04/29/19 10:31 Dose: 17 gm A/P Acute Kidney Injury Acute COPD Exacerbation LV Diastolic Dysfunction Lactic Acidosis Prostate Ca h/o AAA - on empiric antibiotics - f/u cultures - continue medrol, taper in AM - inhaled bronchodilators - O2 to keep Spo2 >90% - DVT prophylaxis
--- NOTE | 2019-04-29 16:24 | PN ---
Progress Note (short form) - Note Progress Note: 1. Acute kidney injury in setting of sepsis/hypotension 2. Lactic acidosis 3. Diastolic HF 4. COPD 5. Leukocytoiss Current Medications Acetaminophen (Tylenol -) 650 mg PO TID PRN PRN Reason: FEVER Albuterol Sulfate (Ventolin 0.083% Nebulizer Soln -) 1 amp NEB RQ4H [facility] Last Admin: 04/29/19 11:25 Dose: 1 amp Artificial Tears (Artificial Tears) 1 drop OU QID [facility] Last Admin: 04/29/19 13:39 Dose: 1 drop Aspirin (Asa -) 81 mg PO DAILY [facility] Last Admin: 04/29/19 10:30 Dose: 81 mg Atorvastatin Calcium (Lipitor -) 40 mg PO HS [facility] Last Admin: 04/28/19 21:50 Dose: 40 mg Budesonide/Formoterol Fumarate (Symbicort 160/4.5mcg -) 1 puff IH BID [facility] Last Admin: 04/29/19 10:32 Dose: 1 puff Carvedilol (Coreg -) 6.25 mg PO BID [facility] Last Admin: 04/29/19 10:30 Dose: 6.25 mg Clopidogrel Bisulfate (Plavix -) 75 mg PO DAILY [facility] Last Admin: 04/29/19 10:30 Dose: 75 mg Docusate Sodium (Colace -) 100 mg PO DAILY [facility] Last Admin: 04/29/19 10:30 Dose: 100 mg Donepezil HCl (Aricept -) 5 mg PO DAILY [facility] Last Admin: 04/29/19 10:30 Dose: 5 mg Famotidine (Pepcid -) 20 mg PO DAILY [facility] Last Admin: 04/29/19 10:31 Dose: 20 mg Guaifenesin (Robitussin -) 10 ml PO Q6H PRN PRN Reason: COUGH Last Admin: 04/28/19 16:54 Dose: 10 ml Piperacillin Sod/Tazobactam (Sod 2.25 gm/ Dextrose) 50 mls @ 100 mls/hr IVPB Q8H-IV [facility]; Protocol Last Admin: 04/29/19 10:29 Dose: 100 mls/hr Latanoprost (Xalatan 0.005% Eye Drops -) 1 drop OU HS [facility] Last Admin: 04/28/19 21:50 Dose: 1 drop Methylprednisolone Sodium Succinate (Solu-Medrol -) 40 mg IVPB Q8H-IV [facility] Last Admin: 04/29/19 10:29 Dose: 40 mg Montelukast Sodium (Singulair -) 10 mg PO HS [facility] Last Admin: 04/28/19 21:50 Dose: 10 mg Polyethylene Glycol (Miralax (For Daily Use) -) 17 gm PO DAILY [facility] Last Admin: 04/29/19 10:31 Dose: 17 gm Last Vital Signs Temp Pulse Resp BP Pulse Ox 98.2 F 69 18 141/76 100 04/29/19 14:09 04/29/19 14:09 04/29/19 14:09 04/29/19 14:09 04/29/19 09:00 Gen: NAD at rest Heart: RRR Lung: distant breath sounds Abd: soft, nontender Ext: no edema CBC, BMP 04/29/19 09:58 04/29/19 09:58 namita resolved
[2019-04-29] MEDS: LATANOPROST 0.005% OPHTH SOLN 2.5ML BOTTLE OU SCH (21:25)
[2019-04-29] MEDS: MONTELUKAST NA 10 MG TABLET PO SCH (21:37)
[2019-04-29] MEDS: ATORVASTATIN CA 40 MG TABLET (FP) PO SCH (21:37)
[2019-04-30] MEDS ORDERED: DEXTROSE 5%-WATER - 50 ML IVPB ONE ×3 (00:46→16:59)
[2019-04-30] MEDS ORDERED: PIPERACILLIN/TAZOBACTAM 2.25 GM VIAL IVPB ONE ×3 (00:46→16:59)
[2019-04-30] MEDS: methylPREDNISolone NA SUCC 40 MG/1 ML VIAL IVPB SCH ×3 (01:07→21:20)
[2019-04-30] MEDS: PIPERACILLIN/TAZOB 2.25 GM 2.25 GM in DEXTROSE 5%-WATER - 50 ML IVPB SCH ×3 (01:07→17:04)
[2019-04-30] MEDS ORDERED: hydrALAZINE HCL 10 MG TABLET PO STA (03:12)
[2019-04-30] MEDS: ALBUTEROL SO4 0.083% IH SOL 2.5 MG/3 ML VIAL.NEB. NEB SCH ×5 (07:53→20:01)
[2019-04-30 08:59] LABS: HEMATOCRIT 45.6 % (35.4-49); HEMOGLOBIN 14.7 GM/dL (11.7-16.9); MCH 27.5 pg (25.7-33.7); MCHC 32.2 g/dl (32.0-35.9); MEAN CELL VOLUME 85.3 fl (80-96); MEAN PLT VOLUME 7.2 fl (7.5-11.1); PLATELET COUNT 380 K/MM3 (134-434); RBC 5.35 M/mm3 (4.00-5.60); RDW 14.7 % (11.9-15.9); WHITE BLOOD COUNT 19.1 K/mm3 (4.0-10.0)
[2019-04-30] MEDS: DOCUSATE SODIUM 100 MG CAPSULE (FP) PO SCH ×2 (09:40→09:49)
[2019-04-30] MEDS: CARVEDILOL 6.25 MG TABLET (FP) PO SCH ×2 (09:40→21:20)
[2019-04-30] MEDS: ASPIRIN 81 MG CHEWABLE TABLETS PO SCH (09:40)
[2019-04-30] MEDS: CLOPIDOGREL BISULFATE 75 MG TABLET (FP) PO SCH (09:41)
[2019-04-30] MEDS: POLYETHYLENE GLYCOL 3350 119 GM BTL PO SCH ×2 (09:41→09:49)
[2019-04-30] MEDS: DONEPEZIL HCL 5 MG TABLET (FP) PO SCH (09:41)
[2019-04-30] MEDS: FAMOTIDINE 20 MG TABLET PO SCH (09:41)
[2019-04-30] MEDS: ARTIFICIAL TEARS (POLYVINYL ALCOHOL) OPTH DROPS OU SCH ×4 (09:42→21:21)
[2019-04-30] MEDS: BUDESONIDE/FORMETEROL FUMARATE 160/4.5 mcg INHALER IH SCH ×2 (09:42→21:21)
[2019-04-30 09:59] LABS: BILIRUBIN,TOTAL 0.9 mg/dL (0.2-1); BLOOD UREA NITROGEN 15.5 mg/dL (7-18); CALCIUM 9.8 mg/dL (8.5-10.1); CREATININE 0.6 mg/dL (0.55-1.3); POTASSIUM 4.2 mmol/L (3.5-5.1); TOT PROT 6.4 g/dl (6.4-8.2)
--- NOTE | 2019-04-30 11:53 | PN ---
Progress Note, Physician History of Present Illness: Pt w/o fever, chulls, cough, CP/ palpitations/ SOB/ abd pain N/ V. - Current Medication List Current Medications: Active Medications Acetaminophen (Tylenol -) 650 mg PO TID PRN PRN Reason: FEVER Albuterol Sulfate (Ventolin 0.083% Nebulizer Soln -) 1 amp NEB RQ4H [facility] Last Admin: 04/30/19 08:44 Dose: 1 amp Artificial Tears (Artificial Tears) 1 drop OU QID [facility] Last Admin: 04/30/19 09:42 Dose: 1 drop Aspirin (Asa -) 81 mg PO DAILY [facility] Last Admin: 04/30/19 09:40 Dose: 81 mg Atorvastatin Calcium (Lipitor -) 40 mg PO HS [facility] Last Admin: 04/29/19 21:37 Dose: 40 mg Budesonide/Formoterol Fumarate (Symbicort 160/4.5mcg -) 1 puff IH BID [facility] Last Admin: 04/30/19 09:42 Dose: 1 puff Carvedilol (Coreg -) 6.25 mg PO BID [facility] Last Admin: 04/30/19 09:40 Dose: 6.25 mg Clopidogrel Bisulfate (Plavix -) 75 mg PO DAILY [facility] Last Admin: 04/30/19 09:41 Dose: 75 mg Docusate Sodium (Colace -) 100 mg PO DAILY [facility] Last Admin: 04/30/19 09:49 Dose: Not Given Donepezil HCl (Aricept -) 5 mg PO DAILY [facility] Last Admin: 04/30/19 09:41 Dose: 5 mg Famotidine (Pepcid -) 20 mg PO DAILY [facility] Last Admin: 04/30/19 09:41 Dose: 20 mg Guaifenesin (Robitussin -) 10 ml PO Q6H PRN PRN Reason: COUGH Last Admin: 04/28/19 16:54 Dose: 10 ml Piperacillin Sod/Tazobactam (Sod 2.25 gm/ Dextrose) 50 mls @ 100 mls/hr IVPB Q8H-IV [facility]; Protocol Last Admin: 04/30/19 10:05 Dose: 100 mls/hr Latanoprost (Xalatan 0.005% Eye Drops -) 1 drop OU HS [facility] Last Admin: 04/29/19 21:25 Dose: 1 drop Methylprednisolone Sodium Succinate (Solu-Medrol -) 40 mg IVPB Q8H-IV [facility] Last Admin: 04/30/19 10:05 Dose: 40 mg Montelukast Sodium (Singulair -) 10 mg PO HS [facility] Last Admin: 04/29/19 21:37 Dose: 10 mg Polyethylene Glycol (Miralax (For Daily Use) -) 17 gm PO DAILY [facility] Last Admin: 04/30/19 09:49 Dose: Not Given - Objective Vital Signs: Vital Signs Temperature 97.9 F 04/30/19 10:00 Pulse Rate 73 04/30/19 10:00 Respiratory Rate 17 04/30/19 10:00 Blood Pressure 160/96 04/30/19 10:00 O2 Sat by Pulse Oximetry (%) 100 04/30/19 09:00 Constitutional: Yes: No Distress, Calm Cardiovascular: Yes: Regular Rate and Rhythm, S1, S2 Respiratory: Yes: Regular, CTA Bilaterally Gastrointestinal: Yes: Normal Bowel Sounds, Soft. No: Tenderness Edema: No Neurological: Yes: Alert, Oriented Labs: CBC, BMP 04/30/19 08:09 04/30/19 08:09 Problem List - Problems (1) Sepsis Code(s): A41.9 - SEPSIS, UNSPECIFIED ORGANISM (2) Pneumonia Code(s): J18.9 - PNEUMONIA, UNSPECIFIED ORGANISM Qualifiers: Pneumonia type: aspiration pneumonia Aspiration pneumonia type: unspecified Laterality: bilateral Lung location: unspecified part of lung Qualified Code(s): J69.0 - Pneumonitis due to inhalation of food and vomit (3) SOLANGE (acute kidney injury) Code(s): N17.9 - ACUTE KIDNEY FAILURE, UNSPECIFIED (4) CHF (congestive heart failure) Code(s): I50.9 - HEART FAILURE, UNSPECIFIED Qualifiers: Heart failure type: unspecified Heart failure chronicity: chronic Qualified Code(s): I50.9 - Heart failure, unspecified (5) COPD exacerbation Code(s): J44.1 - CHRONIC OBSTRUCTIVE PULMONARY DISEASE W (ACUTE) EXACERBATION (6) Prostate cancer Code(s): C61 - MALIGNANT NEOPLASM OF PROSTATE (7) Diabetes mellitus Assessment/Plan: at last admission HBA1C was 7.2 To change diet. Code(s): E11.9 - TYPE 2 DIABETES MELLITUS WITHOUT COMPLICATIONS Assessment/Plan Continue IV abtx Continue IV Steroids Pulmonary, Cardio, Renal consults are appreciated. BGM BIDAC AM labs
--- NOTE | 2019-04-30 12:49 | PN ---
Progress Note (short form) - Note Progress Note: PULMONARY States breathing better. Less cough. No fevers. Vital Signs Period Temp Pulse Resp BP Sys/Hernandez Pulse Ox Last 24 Hr 97.9 F-98.5 F 69-88 17-18 135-200/68-96 100-100 Gen: NAD at rest Heart: RRR Lung: distant breath sounds Abd: soft, nontender Ext: no edema CBC, BMP 04/30/19 08:09 04/30/19 08:09 Active Medications Acetaminophen (Tylenol -) 650 mg PO TID PRN PRN Reason: FEVER Albuterol Sulfate (Ventolin 0.083% Nebulizer Soln -) 1 amp NEB RQ4H [facility] Last Admin: 04/30/19 08:44 Dose: 1 amp Artificial Tears (Artificial Tears) 1 drop OU QID [facility] Last Admin: 04/30/19 09:42 Dose: 1 drop Aspirin (Asa -) 81 mg PO DAILY [facility] Last Admin: 04/30/19 09:40 Dose: 81 mg Atorvastatin Calcium (Lipitor -) 40 mg PO HS [facility] Last Admin: 04/29/19 21:37 Dose: 40 mg Budesonide/Formoterol Fumarate (Symbicort 160/4.5mcg -) 1 puff IH BID [facility] Last Admin: 04/30/19 09:42 Dose: 1 puff Carvedilol (Coreg -) 6.25 mg PO BID [facility] Last Admin: 04/30/19 09:40 Dose: 6.25 mg Clopidogrel Bisulfate (Plavix -) 75 mg PO DAILY [facility] Last Admin: 04/30/19 09:41 Dose: 75 mg Docusate Sodium (Colace -) 100 mg PO DAILY [facility] Last Admin: 04/30/19 09:49 Dose: Not Given Donepezil HCl (Aricept -) 5 mg PO DAILY [facility] Last Admin: 04/30/19 09:41 Dose: 5 mg Famotidine (Pepcid -) 20 mg PO DAILY [facility] Last Admin: 04/30/19 09:41 Dose: 20 mg Guaifenesin (Robitussin -) 10 ml PO Q6H PRN PRN Reason: COUGH Last Admin: 04/28/19 16:54 Dose: 10 ml Piperacillin Sod/Tazobactam (Sod 2.25 gm/ Dextrose) 50 mls @ 100 mls/hr IVPB Q8H-IV [facility]; Protocol Last Admin: 04/30/19 10:05 Dose: 100 mls/hr Insulin Aspart (Novolog Vial Sliding Scale -) 1 vial SQ BIDAC [facility]; Protocol Latanoprost (Xalatan 0.005% Eye Drops -) 1 drop OU HS [facility] Last Admin: 04/29/19 21:25 Dose: 1 drop Methylprednisolone Sodium Succinate (Solu-Medrol -) 40 mg IVPB Q8H-IV [facility] Last Admin: 04/30/19 10:05 Dose: 40 mg Montelukast Sodium (Singulair -) 10 mg PO HS [facility] Last Admin: 04/29/19 21:37 Dose: 10 mg Polyethylene Glycol (Miralax (For Daily Use) -) 17 gm PO DAILY [facility] Last Admin: 04/30/19 09:49 Dose: Not Given A/P Acute Kidney Injury Acute COPD Exacerbation LV Diastolic Dysfunction Lactic Acidosis Prostate Ca h/o AAA - on empiric antibiotics - f/u cultures - will decrease medrol to q12h - inhaled bronchodilators - O2 to keep Spo2 >90% - DVT prophylaxis
--- NOTE | 2019-04-30 14:21 | PN ---
Progress Note, Physician Chief Complaint: Cardiology for Dr. Butt History of Present Illness: Afebrile and hemodynamics stable. Mental status improving now receiving nebulizer treatment. - Current Medication List Current Medications: Active Medications Acetaminophen (Tylenol -) 650 mg PO TID PRN PRN Reason: FEVER Albuterol Sulfate (Ventolin 0.083% Nebulizer Soln -) 1 amp NEB RQ4H [facility] Last Admin: 04/30/19 08:44 Dose: 1 amp Artificial Tears (Artificial Tears) 1 drop OU QID [facility] Last Admin: 04/30/19 09:42 Dose: 1 drop Aspirin (Asa -) 81 mg PO DAILY [facility] Last Admin: 04/30/19 09:40 Dose: 81 mg Atorvastatin Calcium (Lipitor -) 40 mg PO HS [facility] Last Admin: 04/29/19 21:37 Dose: 40 mg Budesonide/Formoterol Fumarate (Symbicort 160/4.5mcg -) 1 puff IH BID [facility] Last Admin: 04/30/19 09:42 Dose: 1 puff Carvedilol (Coreg -) 6.25 mg PO BID [facility] Last Admin: 04/30/19 09:40 Dose: 6.25 mg Clopidogrel Bisulfate (Plavix -) 75 mg PO DAILY [facility] Last Admin: 04/30/19 09:41 Dose: 75 mg Docusate Sodium (Colace -) 100 mg PO DAILY [facility] Last Admin: 04/30/19 09:49 Dose: Not Given Donepezil HCl (Aricept -) 5 mg PO DAILY [facility] Last Admin: 04/30/19 09:41 Dose: 5 mg Famotidine (Pepcid -) 20 mg PO DAILY [facility] Last Admin: 04/30/19 09:41 Dose: 20 mg Guaifenesin (Robitussin -) 10 ml PO Q6H PRN PRN Reason: COUGH Last Admin: 04/28/19 16:54 Dose: 10 ml Piperacillin Sod/Tazobactam (Sod 2.25 gm/ Dextrose) 50 mls @ 100 mls/hr IVPB Q8H-IV [facility]; Protocol Last Admin: 04/30/19 10:05 Dose: 100 mls/hr Insulin Aspart (Novolog Vial Sliding Scale -) 1 vial SQ BIDAC [facility]; Protocol Latanoprost (Xalatan 0.005% Eye Drops -) 1 drop OU HS [facility] Last Admin: 04/29/19 21:25 Dose: 1 drop Methylprednisolone Sodium Succinate (Solu-Medrol -) 40 mg IVPB BID [facility] Montelukast Sodium (Singulair -) 10 mg PO HS [facility] Last Admin: 04/29/19 21:37 Dose: 10 mg Polyethylene Glycol (Miralax (For Daily Use) -) 17 gm PO DAILY [facility] Last Admin: 04/30/19 09:49 Dose: Not Given - Objective Vital Signs: Vital Signs Temperature 97.8 F 04/30/19 13:46 Pulse Rate 67 04/30/19 13:46 Respiratory Rate 20 04/30/19 13:46 Blood Pressure 184/94 H 04/30/19 13:46 O2 Sat by Pulse Oximetry (%) 100 04/30/19 09:00 Constitutional: Yes: No Distress, Calm, Thin Neck: Yes: Supple Cardiovascular: Yes: Regular Rate and Rhythm Respiratory: Yes: Regular, Diminished Gastrointestinal: Yes: Normal Bowel Sounds, Soft Edema: No Labs: CBC, BMP 04/30/19 08:09 04/30/19 08:09 Assessment/Plan 04/28/2019 Renal US: No hydronephrosis or stones Problem List - Problems (1) Sepsis Assessment/Plan: Leukocytosis CXR: no acute process. F/u cultures, temperature, abx per C&S Code(s): A41.9 - SEPSIS, UNSPECIFIED ORGANISM (2) Abdominal aortic aneurysm (AAA) Code(s): I71.4 - ABDOMINAL AORTIC ANEURYSM, WITHOUT RUPTURE (3) CHF (congestive heart failure) Code(s): I50.9 - HEART FAILURE, UNSPECIFIED Qualifiers: Heart failure type: unspecified Heart failure chronicity: chronic Qualified Code(s): I50.9 - Heart failure, unspecified (4) COPD exacerbation Code(s): J44.1 - CHRONIC OBSTRUCTIVE PULMONARY DISEASE W (ACUTE) EXACERBATION Singulair, BD, O2 as needed, IV steroid taper with GI protection (5) Chronic obstructive pulmonary disease Code(s): J44.9 - CHRONIC OBSTRUCTIVE PULMONARY DISEASE, UNSPECIFIED (6) Diastolic CHF Code(s): I50.30 - UNSPECIFIED DIASTOLIC (CONGESTIVE) HEART FAILURE (7) Hyperlipidemia Code(s): E78.5 - HYPERLIPIDEMIA, UNSPECIFIED Lipitor 40 qd (8) Weakness Code(s): R53.1 - WEAKNESS (9) Dehydration Assessment/Plan: acute elevation of BUN/Cr compared to recent admission. Fluids; f/u Is and Os, BUN/Cr. Code(s): E86.0 - DEHYDRATION (10) Hypotension Assessment/Plan: reportedly hypotensive and febrile at home. On carvedilol 6.25 bid, d/larissa IVF now that he's eating. Code(s): I95.9 - HYPOTENSION, UNSPECIFIED (11) SOLANGE (acute kidney injury) Code(s): N17.9 - ACUTE KIDNEY FAILURE, UNSPECIFIED In context of sepsis and hypotension resolved
[2019-04-30 16:13] VITALS: BMI 20.2
[2019-04-30] MEDS ORDERED: INSULIN (NOVOLOG) ASPART 100 UNITS/ML 10ML VIAL ONE (16:58)
[2019-04-30] MEDS: INSULIN SLIDING SCALE (NOVOLOG) 1 VIAL SQ SCH (17:04)
[2019-04-30] MEDS: ATORVASTATIN CA 40 MG TABLET (FP) PO SCH (21:20)
[2019-04-30] MEDS: MONTELUKAST NA 10 MG TABLET PO SCH (21:20)
[2019-04-30] MEDS: LATANOPROST 0.005% OPHTH SOLN 2.5ML BOTTLE OU SCH (21:21)
--- NOTE | 2019-04-30 21:42 | PN ---
Progress Note (short form) - Note Progress Note: 1. Acute kidney injury in setting of sepsis/hypotension 2. Lactic acidosis 3. Diastolic HF 4. COPD 5. Leukocytoiss Current Medications Acetaminophen (Tylenol -) 650 mg PO TID PRN PRN Reason: FEVER Albuterol Sulfate (Ventolin 0.083% Nebulizer Soln -) 1 amp NEB RQ4H [facility] Last Admin: 04/30/19 20:01 Dose: 1 amp Artificial Tears (Artificial Tears) 1 drop OU QID [facility] Last Admin: 04/30/19 21:21 Dose: 1 drop Aspirin (Asa -) 81 mg PO DAILY [facility] Last Admin: 04/30/19 09:40 Dose: 81 mg Atorvastatin Calcium (Lipitor -) 40 mg PO HS [facility] Last Admin: 04/30/19 21:20 Dose: 40 mg Budesonide/Formoterol Fumarate (Symbicort 160/4.5mcg -) 1 puff IH BID [facility] Last Admin: 04/30/19 21:21 Dose: 1 puff Carvedilol (Coreg -) 6.25 mg PO BID [facility] Last Admin: 04/30/19 21:20 Dose: 6.25 mg Clopidogrel Bisulfate (Plavix -) 75 mg PO DAILY [facility] Last Admin: 04/30/19 09:41 Dose: 75 mg Docusate Sodium (Colace -) 100 mg PO DAILY [facility] Last Admin: 04/30/19 09:49 Dose: Not Given Donepezil HCl (Aricept -) 5 mg PO DAILY [facility] Last Admin: 04/30/19 09:41 Dose: 5 mg Famotidine (Pepcid -) 20 mg PO DAILY [facility] Last Admin: 04/30/19 09:41 Dose: 20 mg Guaifenesin (Robitussin -) 10 ml PO Q6H PRN PRN Reason: COUGH Last Admin: 04/28/19 16:54 Dose: 10 ml Piperacillin Sod/Tazobactam (Sod 2.25 gm/ Dextrose) 50 mls @ 100 mls/hr IVPB Q8H-IV [facility]; Protocol Last Admin: 04/30/19 17:04 Dose: 100 mls/hr Insulin Aspart (Novolog Vial Sliding Scale -) 1 vial SQ BIDAC [facility]; Protocol Last Admin: 04/30/19 17:04 Dose: 4 units Latanoprost (Xalatan 0.005% Eye Drops -) 1 drop OU HS [facility] Last Admin: 04/30/19 21:21 Dose: 1 drop Methylprednisolone Sodium Succinate (Solu-Medrol -) 40 mg IVPB BID [facility] Last Admin: 04/30/19 21:20 Dose: 40 mg Montelukast Sodium (Singulair -) 10 mg PO HS [facility] Last Admin: 04/30/19 21:20 Dose: 10 mg Polyethylene Glycol (Miralax (For Daily Use) -) 17 gm PO DAILY [facility] Last Admin: 04/30/19 09:49 Dose: Not Given Last Vital Signs Temp Pulse Resp BP Pulse Ox 97.8 F 67 20 184/94 H 100 04/30/19 13:46 04/30/19 13:46 04/30/19 13:46 04/30/19 13:46 04/30/19 09:00 Lungs clear Heart reg Abd soft nontender Ext no edema CBC, BMP 04/30/19 08:09 04/30/19 08:09 CBC, BMP 04/29/19 09:58 04/29/19 09:58 IMP s/p namita resolved new met alkalosis Plan follow labs in am re: alkalosis
[2019-05-01] MEDS ORDERED: DEXTROSE 5%-WATER - 50 ML IVPB ONE ×3 (00:22→16:20)
[2019-05-01] MEDS ORDERED: PIPERACILLIN/TAZOBACTAM 2.25 GM VIAL IVPB ONE ×3 (00:22→16:20)
[2019-05-01] MEDS: ALBUTEROL SO4 0.083% IH SOL 2.5 MG/3 ML VIAL.NEB. NEB SCH ×6 (00:29→20:08)
[2019-05-01] MEDS: PIPERACILLIN/TAZOB 2.25 GM 2.25 GM in DEXTROSE 5%-WATER - 50 ML IVPB SCH ×3 (01:11→17:03)
[2019-05-01] MEDS: INSULIN SLIDING SCALE (NOVOLOG) 1 VIAL SQ SCH ×2 (06:39→16:27)
[2019-05-01 08:42] LABS: HEMATOCRIT 46.1 % (35.4-49); HEMOGLOBIN 14.9 GM/dL (11.7-16.9); MCH 27.3 pg (25.7-33.7); MCHC 32.3 g/dl (32.0-35.9); MEAN CELL VOLUME 84.3 fl (80-96); MEAN PLT VOLUME 7.2 fl (7.5-11.1); PLATELET COUNT 395 K/MM3 (134-434); RBC 5.46 M/mm3 (4.00-5.60); RDW 14.6 % (11.9-15.9); WHITE BLOOD COUNT 15.7 K/mm3 (4.0-10.0)
[2019-05-01 09:07] LABS: ALBUMIN 2.6 g/dl (3.4-5.0); BLOOD UREA NITROGEN 16.3 mg/dL (7-18); CALCIUM 10.1 mg/dL (8.5-10.1); CREATININE 0.6 mg/dL (0.55-1.3); POTASSIUM 4.3 mmol/L (3.5-5.1); TOT PROT 5.9 g/dl (6.4-8.2)
[2019-05-01] MEDS ORDERED: PT OWN MED DRAWER 7, Y5N ONE (09:18)
[2019-05-01] MEDS: methylPREDNISolone NA SUCC 40 MG/1 ML VIAL IVPB SCH ×2 (09:27→22:16)
[2019-05-01] MEDS: ASPIRIN 81 MG CHEWABLE TABLETS PO SCH (09:29)
[2019-05-01] MEDS: CARVEDILOL 6.25 MG TABLET (FP) PO SCH ×2 (09:29→22:16)
[2019-05-01] MEDS: DOCUSATE SODIUM 100 MG CAPSULE (FP) PO SCH (09:29)
[2019-05-01] MEDS: DONEPEZIL HCL 5 MG TABLET (FP) PO SCH (09:29)
[2019-05-01] MEDS: CLOPIDOGREL BISULFATE 75 MG TABLET (FP) PO SCH (09:29)
[2019-05-01] MEDS: FAMOTIDINE 20 MG TABLET PO SCH (09:30)
[2019-05-01] MEDS: POLYETHYLENE GLYCOL 3350 119 GM BTL PO SCH (09:30)
[2019-05-01] MEDS: BUDESONIDE/FORMETEROL FUMARATE 160/4.5 mcg INHALER IH SCH ×2 (09:30→22:16)
[2019-05-01] MEDS: ARTIFICIAL TEARS (POLYVINYL ALCOHOL) OPTH DROPS OU SCH ×4 (09:32→22:16)
--- NOTE | 2019-05-01 10:43 | PN ---
Progress Note (short form) - Note Progress Note: Resting in NAD. Reports breathing is better. Less cough. No fevers. No acute events overnight. Intake & Output 04/28/19 04/29/19 04/30/19 05/01/19 23:59 23:59 23:59 23:59 Intake Total 790 2078 820 Output Total 100 400 800 Balance 790 1978 420 -800 Weight 129 lb 129 lb Last Vital Signs Temp Pulse Resp BP Pulse Ox 97.4 F L 59 L 15 164/88 100 05/01/19 07:51 05/01/19 05:00 05/01/19 07:51 05/01/19 07:51 05/01/19 09:00 Active Medications Acetaminophen (Tylenol -) 650 mg PO TID PRN PRN Reason: FEVER Albuterol Sulfate (Ventolin 0.083% Nebulizer Soln -) 1 amp NEB RQ4H [facility] Last Admin: 05/01/19 07:42 Dose: 1 amp Artificial Tears (Artificial Tears) 1 drop OU QID [facility] Last Admin: 05/01/19 09:32 Dose: 1 drop Aspirin (Asa -) 81 mg PO DAILY [facility] Last Admin: 05/01/19 09:29 Dose: 81 mg Atorvastatin Calcium (Lipitor -) 40 mg PO HS [facility] Last Admin: 04/30/19 21:20 Dose: 40 mg Budesonide/Formoterol Fumarate (Symbicort 160/4.5mcg -) 1 puff IH BID [facility] Last Admin: 05/01/19 09:30 Dose: 1 puff Carvedilol (Coreg -) 6.25 mg PO BID [facility] Last Admin: 05/01/19 09:29 Dose: 6.25 mg Clopidogrel Bisulfate (Plavix -) 75 mg PO DAILY [facility] Last Admin: 05/01/19 09:29 Dose: 75 mg Docusate Sodium (Colace -) 100 mg PO DAILY [facility] Last Admin: 05/01/19 09:29 Dose: 100 mg Donepezil HCl (Aricept -) 5 mg PO DAILY [facility] Last Admin: 05/01/19 09:29 Dose: 5 mg Famotidine (Pepcid -) 20 mg PO DAILY [facility] Last Admin: 05/01/19 09:30 Dose: 20 mg Guaifenesin (Robitussin -) 10 ml PO Q6H PRN PRN Reason: COUGH Last Admin: 04/28/19 16:54 Dose: 10 ml Piperacillin Sod/Tazobactam (Sod 2.25 gm/ Dextrose) 50 mls @ 100 mls/hr IVPB Q8H-IV [facility]; Protocol Last Admin: 05/01/19 09:27 Dose: 100 mls/hr Insulin Aspart (Novolog Vial Sliding Scale -) 1 vial SQ BIDAC [facility]; Protocol Last Admin: 05/01/19 06:39 Dose: Not Given Latanoprost (Xalatan 0.005% Eye Drops -) 1 drop OU HS [facility] Last Admin: 04/30/19 21:21 Dose: 1 drop Methylprednisolone Sodium Succinate (Solu-Medrol -) 40 mg IVPB BID [facility] Last Admin: 05/01/19 09:27 Dose: 40 mg Montelukast Sodium (Singulair -) 10 mg PO HS [facility] Last Admin: 04/30/19 21:20 Dose: 10 mg Polyethylene Glycol (Miralax (For Daily Use) -) 17 gm PO DAILY [facility] Last Admin: 05/01/19 09:30 Dose: Not Given Gen: NAD at rest Heart: RRR Lung: distant breath sounds Abd: soft, nontender Ext: no edema Laboratory Results - last 24 hr 04/28/19 04/30/19 05/01/19 23:00 16:55 06:38 WBC RBC Hgb Hct MCV MCH MCHC RDW Plt Count MPV Sodium Potassium Chloride Carbon Dioxide Anion Gap BUN Creatinine Est GFR (CKD-EPI)AfAm Est GFR (CKD-EPI)NonAf POC Glucometer 231 141 Random Glucose Calcium Total Bilirubin AST ALT Alkaline Phosphatase Total Protein Albumin Urine Eosinophils None seen 05/01/19 05/01/19 08:25 08:25 WBC 15.7 H RBC 5.46 Hgb 14.9 Hct 46.1 MCV 84.3 MCH 27.3 MCHC 32.3 RDW 14.6 Plt Count 395 MPV 7.2 L Sodium 140 Potassium 4.3 Chloride 99 Carbon Dioxide 34 H Anion Gap 6 L BUN 16.3 Creatinine 0.6 Est GFR (CKD-EPI)AfAm 107.01 Est GFR (CKD-EPI)NonAf 92.33 POC Glucometer Random Glucose 132 H Calcium 10.1 Total Bilirubin 1.0 AST 26 ALT 41 Alkaline Phosphatase 76 Total Protein 5.9 L Albumin 2.6 L Urine Eosinophils A/P Acute Kidney Injury Acute COPD Exacerbation LV Diastolic Dysfunction Lactic Acidosis Prostate Ca h/o AAA - ABX per ID - Medrol q12h - inhaled bronchodilators - O2 to keep Spo2 >90% - DVT prophylaxis Dr Dominguez
[2019-05-01] MEDS: LISINOPRIL 5 MG TABLET (FP) PO SCH (12:34)
--- NOTE | 2019-05-01 12:59 | PN ---
Progress Note (short form) - Note Progress Note: Renal follow up for SOLANGE Seen and examined at the bedside awake and alert offers no acute complaints no sob, chest pain, abd pain, N/V/D making urine Vital Signs Temperature 97.4 F L 05/01/19 07:51 Pulse Rate 59 L 05/01/19 05:00 Respiratory Rate 15 05/01/19 07:51 Blood Pressure 164/88 05/01/19 07:51 O2 Sat by Pulse Oximetry (%) 100 05/01/19 09:00 Intake & Output 04/28/19 04/29/19 04/30/19 05/01/19 23:59 23:59 23:59 23:59 Intake Total 790 2078 820 Output Total 100 400 800 Balance 790 1978 420 -800 Weight 58.513 kg 58.513 kg NAD no JVD RRR, no M/R CTA,no rales or wheeze soft NT/ND no bladder distension trace LE edema, CBC, BMP 05/01/19 08:25 05/01/19 08:25 Current Medications Acetaminophen (Tylenol -) 650 mg PO TID PRN PRN Reason: FEVER Albuterol Sulfate (Ventolin 0.083% Nebulizer Soln -) 1 amp NEB RQ4H [facility] Last Admin: 05/01/19 12:10 Dose: 1 amp Artificial Tears (Artificial Tears) 1 drop OU QID [facility] Last Admin: 05/01/19 09:32 Dose: 1 drop Aspirin (Asa -) 81 mg PO DAILY [facility] Last Admin: 05/01/19 09:29 Dose: 81 mg Atorvastatin Calcium (Lipitor -) 40 mg PO HS [facility] Last Admin: 04/30/19 21:20 Dose: 40 mg Budesonide/Formoterol Fumarate (Symbicort 160/4.5mcg -) 1 puff IH BID [facility] Last Admin: 05/01/19 09:30 Dose: 1 puff Carvedilol (Coreg -) 6.25 mg PO BID [facility] Last Admin: 05/01/19 09:29 Dose: 6.25 mg Clopidogrel Bisulfate (Plavix -) 75 mg PO DAILY [facility] Last Admin: 05/01/19 09:29 Dose: 75 mg Docusate Sodium (Colace -) 100 mg PO DAILY [facility] Last Admin: 05/01/19 09:29 Dose: 100 mg Donepezil HCl (Aricept -) 5 mg PO DAILY [facility] Last Admin: 05/01/19 09:29 Dose: 5 mg Famotidine (Pepcid -) 20 mg PO DAILY [facility] Last Admin: 05/01/19 09:30 Dose: 20 mg Guaifenesin (Robitussin -) 10 ml PO Q6H PRN PRN Reason: COUGH Last Admin: 04/28/19 16:54 Dose: 10 ml Piperacillin Sod/Tazobactam (Sod 2.25 gm/ Dextrose) 50 mls @ 100 mls/hr IVPB Q8H-IV [facility]; Protocol Last Admin: 05/01/19 09:27 Dose: 100 mls/hr Insulin Aspart (Novolog Vial Sliding Scale -) 1 vial SQ BIDAC [facility]; Protocol Last Admin: 05/01/19 06:39 Dose: Not Given Latanoprost (Xalatan 0.005% Eye Drops -) 1 drop OU HS [facility] Last Admin: 04/30/19 21:21 Dose: 1 drop Lisinopril (Prinivil) 5 mg PO DAILY [facility] Last Admin: 05/01/19 12:34 Dose: 5 mg Methylprednisolone Sodium Succinate (Solu-Medrol -) 40 mg IVPB BID [facility] Last Admin: 05/01/19 09:27 Dose: 40 mg Montelukast Sodium (Singulair -) 10 mg PO HS [facility] Last Admin: 04/30/19 21:20 Dose: 10 mg Polyethylene Glycol (Miralax (For Daily Use) -) 17 gm PO DAILY [facility] Last Admin: 05/01/19 09:30 Dose: Not Given 84 year old gentleman wit history of COPD, CHF with diastolic dysfunction, AAA , prostate Ca who presented from home with fever and low BP and found to have abnormal kidney function. 1. Acute kidney injury in setting of sepsis/hypotension 2. Lactic acidosis 3. Diastolic HF 4. COPD 5. Leukocytoiss Renal function now improved to baseline pt appears clinically evolemic now off IVF tolerting oral intake Urine shows bland UA and w/o significant proteinuria Renal US shows normal kidney size with cyst discharge planning as per primary Thank you Lucas Fontaine DO
[2019-05-01 13:00] LABS: PHOSPHOROUS 3.1 mg/dL (2.5-4.9)
--- NOTE | 2019-05-01 15:57 | PN ---
Progress Note, Physician History of Present Illness: Pt w/o fever, chills, CP/ palpitations/ SOB/ abd pain N/ V. Pt coughs occasionally. - Current Medication List Current Medications: Active Medications Acetaminophen (Tylenol -) 650 mg PO TID PRN PRN Reason: FEVER Albuterol Sulfate (Ventolin 0.083% Nebulizer Soln -) 1 amp NEB RQ4H [facility] Last Admin: 05/01/19 12:10 Dose: 1 amp Artificial Tears (Artificial Tears) 1 drop OU QID [facility] Last Admin: 05/01/19 13:21 Dose: 1 drop Aspirin (Asa -) 81 mg PO DAILY [facility] Last Admin: 05/01/19 09:29 Dose: 81 mg Atorvastatin Calcium (Lipitor -) 40 mg PO HS [facility] Last Admin: 04/30/19 21:20 Dose: 40 mg Budesonide/Formoterol Fumarate (Symbicort 160/4.5mcg -) 1 puff IH BID [facility] Last Admin: 05/01/19 09:30 Dose: 1 puff Carvedilol (Coreg -) 6.25 mg PO BID [facility] Last Admin: 05/01/19 09:29 Dose: 6.25 mg Clopidogrel Bisulfate (Plavix -) 75 mg PO DAILY [facility] Last Admin: 05/01/19 09:29 Dose: 75 mg Docusate Sodium (Colace -) 100 mg PO DAILY [facility] Last Admin: 05/01/19 09:29 Dose: 100 mg Donepezil HCl (Aricept -) 5 mg PO DAILY [facility] Last Admin: 05/01/19 09:29 Dose: 5 mg Famotidine (Pepcid -) 20 mg PO DAILY [facility] Last Admin: 05/01/19 09:30 Dose: 20 mg Guaifenesin (Robitussin -) 10 ml PO Q6H PRN PRN Reason: COUGH Last Admin: 04/28/19 16:54 Dose: 10 ml Piperacillin Sod/Tazobactam (Sod 2.25 gm/ Dextrose) 50 mls @ 100 mls/hr IVPB Q8H-IV [facility]; Protocol Last Admin: 05/01/19 09:27 Dose: 100 mls/hr Insulin Aspart (Novolog Vial Sliding Scale -) 1 vial SQ BIDAC [facility]; Protocol Last Admin: 05/01/19 06:39 Dose: Not Given Latanoprost (Xalatan 0.005% Eye Drops -) 1 drop OU [facility] Last Admin: 04/30/19 21:21 Dose: 1 drop Lisinopril (Prinivil) 5 mg PO DAILY [facility] Last Admin: 05/01/19 12:34 Dose: 5 mg Methylprednisolone Sodium Succinate (Solu-Medrol -) 40 mg IVPB BID [facility] Last Admin: 05/01/19 09:27 Dose: 40 mg Montelukast Sodium (Singulair -) 10 mg PO [facility] Last Admin: 04/30/19 21:20 Dose: 10 mg Polyethylene Glycol (Miralax (For Daily Use) -) 17 gm PO DAILY [facility] Last Admin: 05/01/19 09:30 Dose: Not Given - Objective Vital Signs: Vital Signs Temperature 97.7 F 05/01/19 13:33 Pulse Rate 62 05/01/19 13:33 Respiratory Rate 18 05/01/19 13:33 Blood Pressure 153/76 05/01/19 13:33 O2 Sat by Pulse Oximetry (%) 100 05/01/19 09:00 Constitutional: Yes: No Distress, Calm Cardiovascular: Yes: Regular Rate and Rhythm, S1, S2 Respiratory: Yes: Regular, CTA Bilaterally. No: Rales Gastrointestinal: Yes: Normal Bowel Sounds, Soft. No: Tenderness Edema: No Neurological: Yes: Alert, Oriented Labs: CBC, BMP 05/01/19 08:25 05/01/19 08:25 Problem List - Problems (1) Sepsis Code(s): A41.9 - SEPSIS, UNSPECIFIED ORGANISM (2) Pneumonia Code(s): J18.9 - PNEUMONIA, UNSPECIFIED ORGANISM Qualifiers: Pneumonia type: aspiration pneumonia Aspiration pneumonia type: unspecified Laterality: bilateral Lung location: unspecified part of lung Qualified Code(s): J69.0 - Pneumonitis due to inhalation of food and vomit (3) SOLANGE (acute kidney injury) Code(s): N17.9 - ACUTE KIDNEY FAILURE, UNSPECIFIED (4) CHF (congestive heart failure) Code(s): I50.9 - HEART FAILURE, UNSPECIFIED Qualifiers: Heart failure type: unspecified Heart failure chronicity: chronic Qualified Code(s): I50.9 - Heart failure, unspecified (5) COPD exacerbation Code(s): J44.1 - CHRONIC OBSTRUCTIVE PULMONARY DISEASE W (ACUTE) EXACERBATION (6) Prostate cancer Code(s): C61 - MALIGNANT NEOPLASM OF PROSTATE (7) Diabetes mellitus Code(s): E11.9 - TYPE 2 DIABETES MELLITUS WITHOUT COMPLICATIONS Assessment/Plan Continue IV abtx Continue IV Steroids, BID Pulmonary, Cardio, Renal consults are appreciated. renal function is back to normal BGM BIDAC -to f/u AM labs
[2019-05-01] MEDS ORDERED: INSULIN (NOVOLOG) ASPART 100 UNITS/ML 10ML VIAL ONE (16:20)
[2019-05-01] MEDS: MONTELUKAST NA 10 MG TABLET PO SCH (22:15)
[2019-05-01] MEDS: ATORVASTATIN CA 40 MG TABLET (FP) PO SCH (22:15)
[2019-05-01] MEDS: LATANOPROST 0.005% OPHTH SOLN 2.5ML BOTTLE OU SCH (22:16)
[2019-05-02] MEDS ORDERED: PIPERACILLIN/TAZOBACTAM 2.25 GM VIAL IVPB ONE ×4 (02:22→16:57)
[2019-05-02] MEDS ORDERED: DEXTROSE 5%-WATER - 50 ML IVPB ONE ×4 (02:22→16:57)
[2019-05-02] MEDS: PIPERACILLIN/TAZOB 2.25 GM 2.25 GM in DEXTROSE 5%-WATER - 50 ML IVPB SCH ×3 (02:37→17:02)
[2019-05-02] MEDS: ALBUTEROL SO4 0.083% IH SOL 2.5 MG/3 ML VIAL.NEB. NEB SCH ×6 (04:00→19:45)
[2019-05-02] MEDS: INSULIN SLIDING SCALE (NOVOLOG) 1 VIAL SQ SCH ×2 (06:09→17:03)
[2019-05-02 08:31] LABS: HEMATOCRIT 47.1 % (35.4-49); HEMOGLOBIN 15.3 GM/dL (11.7-16.9); MCH 27.5 pg (25.7-33.7); MCHC 32.5 g/dl (32.0-35.9); MEAN CELL VOLUME 84.7 fl (80-96); MEAN PLT VOLUME 7.4 fl (7.5-11.1); PLATELET COUNT 410 K/MM3 (134-434); RBC 5.57 M/mm3 (4.00-5.60); RDW 14.6 % (11.9-15.9); WHITE BLOOD COUNT 13.7 K/mm3 (4.0-10.0)
[2019-05-02 08:59] LABS: BILIRUBIN,TOTAL 1.2 mg/dL (0.2-1); CALCIUM 10.2 mg/dL (8.5-10.1); CREATININE 0.6 mg/dL (0.55-1.3); POTASSIUM 4.6 mmol/L (3.5-5.1); TOT PROT 6.3 g/dl (6.4-8.2)
[2019-05-02] MEDS: methylPREDNISolone NA SUCC 40 MG/1 ML VIAL IVPB SCH ×2 (09:41→22:06)
[2019-05-02] MEDS: CARVEDILOL 6.25 MG TABLET (FP) PO SCH ×2 (09:42→22:07)
[2019-05-02] MEDS: FAMOTIDINE 20 MG TABLET PO SCH (09:42)
[2019-05-02] MEDS: DONEPEZIL HCL 5 MG TABLET (FP) PO SCH (09:42)
[2019-05-02] MEDS: CLOPIDOGREL BISULFATE 75 MG TABLET (FP) PO SCH (09:42)
[2019-05-02] MEDS: ARTIFICIAL TEARS (POLYVINYL ALCOHOL) OPTH DROPS OU SCH ×4 (09:42→22:07)
[2019-05-02] MEDS: DOCUSATE SODIUM 100 MG CAPSULE (FP) PO SCH (09:42)
[2019-05-02] MEDS: ASPIRIN 81 MG CHEWABLE TABLETS PO SCH (09:42)
[2019-05-02] MEDS: LISINOPRIL 5 MG TABLET (FP) PO SCH (09:42)
[2019-05-02] MEDS: POLYETHYLENE GLYCOL 3350 119 GM BTL PO SCH (09:44)
[2019-05-02] MEDS: BUDESONIDE/FORMETEROL FUMARATE 160/4.5 mcg INHALER IH SCH ×2 (09:45→22:07)
--- NOTE | 2019-05-02 10:33 | PN ---
Progress Note (short form) - Note Progress Note: Resting in NAD on RA. Reports breathing is better. Less cough. No fevers. No acute events overnight. Intake & Output 04/29/19 04/30/19 05/01/19 05/02/19 23:59 23:59 23:59 23:59 Intake Total 2078 820 350 300 Output Total 353 363 0423 Balance 1978 420 -750 300 Weight 129 lb Last Vital Signs Temp Pulse Resp BP Pulse Ox 98.1 F 66 19 119/80 100 05/02/19 06:00 05/02/19 06:00 05/02/19 06:00 05/02/19 06:00 05/01/19 21:00 Active Medications Acetaminophen (Tylenol -) 650 mg PO TID PRN PRN Reason: FEVER Albuterol Sulfate (Ventolin 0.083% Nebulizer Soln -) 1 amp NEB RQ4H [facility] Last Admin: 05/02/19 07:55 Dose: 1 amp Artificial Tears (Artificial Tears) 1 drop OU QID [facility] Last Admin: 05/02/19 09:42 Dose: 1 drop Aspirin (Asa -) 81 mg PO DAILY [facility] Last Admin: 05/02/19 09:42 Dose: 81 mg Atorvastatin Calcium (Lipitor -) 40 mg PO HS [facility] Last Admin: 05/01/19 22:15 Dose: 40 mg Budesonide/Formoterol Fumarate (Symbicort 160/4.5mcg -) 1 puff IH BID [facility] Last Admin: 05/02/19 09:45 Dose: 1 puff Carvedilol (Coreg -) 6.25 mg PO BID [facility] Last Admin: 05/02/19 09:42 Dose: 6.25 mg Clopidogrel Bisulfate (Plavix -) 75 mg PO DAILY [facility] Last Admin: 05/02/19 09:42 Dose: 75 mg Docusate Sodium (Colace -) 100 mg PO DAILY [facility] Last Admin: 05/02/19 09:42 Dose: 100 mg Donepezil HCl (Aricept -) 5 mg PO DAILY [facility] Last Admin: 05/02/19 09:42 Dose: 5 mg Famotidine (Pepcid -) 20 mg PO DAILY [facility] Last Admin: 05/02/19 09:42 Dose: 20 mg Guaifenesin (Robitussin -) 10 ml PO Q6H PRN PRN Reason: COUGH Last Admin: 04/28/19 16:54 Dose: 10 ml Piperacillin Sod/Tazobactam (Sod 2.25 gm/ Dextrose) 50 mls @ 100 mls/hr IVPB Q8H-IV [facility]; Protocol Last Admin: 05/02/19 09:43 Dose: 100 mls/hr Insulin Aspart (Novolog Vial Sliding Scale -) 1 vial SQ BIDAC [facility]; Protocol Last Admin: 05/02/19 06:09 Dose: Not Given Latanoprost (Xalatan 0.005% Eye Drops -) 1 drop OU HS [facility] Last Admin: 05/01/19 22:16 Dose: 1 drop Lisinopril (Prinivil) 5 mg PO DAILY [facility] Last Admin: 05/02/19 09:42 Dose: 5 mg Methylprednisolone Sodium Succinate (Solu-Medrol -) 40 mg IVPB BID [facility] Last Admin: 05/02/19 09:41 Dose: 40 mg Montelukast Sodium (Singulair -) 10 mg PO HS [facility] Last Admin: 05/01/19 22:15 Dose: 10 mg Polyethylene Glycol (Miralax (For Daily Use) -) 17 gm PO DAILY [facility] Last Admin: 05/02/19 09:44 Dose: 17 gm Gen: NAD at rest Heart: RRR Lung: distant breath sounds Abd: soft, nontender Ext: no edema Laboratory Results - last 24 hr 05/01/19 05/01/19 05/01/19 08:25 08:25 16:18 WBC 15.7 H RBC 5.46 Hgb 14.9 Hct 46.1 MCV 84.3 MCH 27.3 MCHC 32.3 RDW 14.6 Plt Count 395 MPV 7.2 L Sodium 140 Potassium 4.3 Chloride 99 Carbon Dioxide 34 H Anion Gap 6 L BUN 16.3 Creatinine 0.6 Est GFR (CKD-EPI)AfAm 107.01 Est GFR (CKD-EPI)NonAf 92.33 POC Glucometer 186 Random Glucose 132 H Calcium 10.1 Phosphorus 3.1 Total Bilirubin 1.0 AST 26 ALT 41 Alkaline Phosphatase 76 Total Protein 5.9 L Albumin 2.6 L 05/02/19 05/02/19 05/02/19 05:47 07:16 07:16 WBC 13.7 H RBC 5.57 Hgb 15.3 Hct 47.1 MCV 84.7 MCH 27.5 MCHC 32.5 RDW 14.6 Plt Count 410 MPV 7.4 L Sodium 137 Potassium 4.6 Chloride 95 L Carbon Dioxide 35 H Anion Gap 7 L BUN 17.0 Creatinine 0.6 Est GFR (CKD-EPI)AfAm 107.01 Est GFR (CKD-EPI)NonAf 92.33 POC Glucometer 134 Random Glucose 113 H Calcium 10.2 H Phosphorus Total Bilirubin 1.2 H AST 30 ALT 51 Alkaline Phosphatase 85 Total Protein 6.3 L Albumin 3.0 L A/P Acute Kidney Injury Acute COPD Exacerbation LV Diastolic Dysfunction Lactic Acidosis Prostate Ca h/o AAA - ABX per ID - Can change to Prednisone taper if DC is anticipated - inhaled bronchodilators - O2 to keep Spo2 >90% - DVT prophylaxis - There is Pulmonary contraindication for DC planning Dr Dominguez
--- NOTE | 2019-05-02 13:01 | PN ---
Progress Note, Physician History of Present Illness: Pt w/o fever, chills, CP/ palpitations/ SOB/ abd pain, N/ V. Pt states that had diarrhea last night and in AM. - Current Medication List Current Medications: Active Medications Acetaminophen (Tylenol -) 650 mg PO TID PRN PRN Reason: FEVER Albuterol Sulfate (Ventolin 0.083% Nebulizer Soln -) 1 amp NEB RQ4H [facility] Last Admin: 05/02/19 12:10 Dose: 1 amp Artificial Tears (Artificial Tears) 1 drop OU QID [facility] Last Admin: 05/02/19 09:42 Dose: 1 drop Aspirin (Asa -) 81 mg PO DAILY [facility] Last Admin: 05/02/19 09:42 Dose: 81 mg Atorvastatin Calcium (Lipitor -) 40 mg PO HS [facility] Last Admin: 05/01/19 22:15 Dose: 40 mg Budesonide/Formoterol Fumarate (Symbicort 160/4.5mcg -) 1 puff IH BID [facility] Last Admin: 05/02/19 09:45 Dose: 1 puff Carvedilol (Coreg -) 6.25 mg PO BID [facility] Last Admin: 05/02/19 09:42 Dose: 6.25 mg Clopidogrel Bisulfate (Plavix -) 75 mg PO DAILY [facility] Last Admin: 05/02/19 09:42 Dose: 75 mg Docusate Sodium (Colace -) 100 mg PO DAILY [facility] Last Admin: 05/02/19 09:42 Dose: 100 mg Donepezil HCl (Aricept -) 5 mg PO DAILY [facility] Last Admin: 05/02/19 09:42 Dose: 5 mg Famotidine (Pepcid -) 20 mg PO DAILY [facility] Last Admin: 05/02/19 09:42 Dose: 20 mg Guaifenesin (Robitussin -) 10 ml PO Q6H PRN PRN Reason: COUGH Last Admin: 04/28/19 16:54 Dose: 10 ml Piperacillin Sod/Tazobactam (Sod 2.25 gm/ Dextrose) 50 mls @ 100 mls/hr IVPB Q8H-IV [facility]; Protocol Last Admin: 05/02/19 09:43 Dose: 100 mls/hr Insulin Aspart (Novolog Vial Sliding Scale -) 1 vial SQ BIDAC [facility]; Protocol Last Admin: 05/02/19 06:09 Dose: Not Given Latanoprost (Xalatan 0.005% Eye Drops -) 1 drop OU [facility] Last Admin: 05/01/19 22:16 Dose: 1 drop Lisinopril (Prinivil) 5 mg PO DAILY [facility] Last Admin: 05/02/19 09:42 Dose: 5 mg Methylprednisolone Sodium Succinate (Solu-Medrol -) 40 mg IVPB BID [facility] Last Admin: 05/02/19 09:41 Dose: 40 mg Montelukast Sodium (Singulair -) 10 mg PO [facility] Last Admin: 05/01/19 22:15 Dose: 10 mg Polyethylene Glycol (Miralax (For Daily Use) -) 17 gm PO DAILY [facility] Last Admin: 05/02/19 09:44 Dose: 17 gm - Objective Vital Signs: Vital Signs Temperature 98.1 F 05/02/19 06:00 Pulse Rate 66 05/02/19 06:00 Respiratory Rate 19 05/02/19 06:00 Blood Pressure 119/80 05/02/19 06:00 O2 Sat by Pulse Oximetry (%) 100 05/01/19 21:00 Constitutional: Yes: No Distress, Calm Cardiovascular: Yes: Regular Rate and Rhythm, S1, S2 Respiratory: Yes: Regular, Rhonchi. No: Wheezes Gastrointestinal: Yes: Normal Bowel Sounds, Soft. No: Tenderness Edema: No Neurological: Yes: Alert, Oriented Labs: CBC, BMP 05/02/19 07:16 05/02/19 07:16 Problem List - Problems (1) Sepsis Code(s): A41.9 - SEPSIS, UNSPECIFIED ORGANISM (2) Pneumonia Code(s): J18.9 - PNEUMONIA, UNSPECIFIED ORGANISM Qualifiers: Pneumonia type: aspiration pneumonia Aspiration pneumonia type: unspecified Laterality: bilateral Lung location: unspecified part of lung Qualified Code(s): J69.0 - Pneumonitis due to inhalation of food and vomit (3) SOLANGE (acute kidney injury) Code(s): N17.9 - ACUTE KIDNEY FAILURE, UNSPECIFIED (4) CHF (congestive heart failure) Code(s): I50.9 - HEART FAILURE, UNSPECIFIED Qualifiers: Heart failure type: unspecified Heart failure chronicity: chronic Qualified Code(s): I50.9 - Heart failure, unspecified (5) COPD exacerbation Code(s): J44.1 - CHRONIC OBSTRUCTIVE PULMONARY DISEASE W (ACUTE) EXACERBATION (6) Prostate cancer Code(s): C61 - MALIGNANT NEOPLASM OF PROSTATE (7) Diabetes mellitus Code(s): E11.9 - TYPE 2 DIABETES MELLITUS WITHOUT COMPLICATIONS (8) Diarrhea Code(s): R19.7 - DIARRHEA, UNSPECIFIED Assessment/Plan Continue IV abtx Continue IV Steroids Pulmonary, Cardio, Renal consults are appreciated. Renal function is back to normal BGM BIDAC -to f/u AM labs, send stool for C Diff.
[2019-05-02] MEDS: ATORVASTATIN CA 40 MG TABLET (FP) PO SCH (22:06)
[2019-05-02] MEDS: MONTELUKAST NA 10 MG TABLET PO SCH (22:06)
[2019-05-02] MEDS: LATANOPROST 0.005% OPHTH SOLN 2.5ML BOTTLE OU SCH (22:07)
[2019-05-03] MEDS: ALBUTEROL SO4 0.083% IH SOL 2.5 MG/3 ML VIAL.NEB. NEB SCH ×5 (00:18→20:02)
[2019-05-03] MEDS ORDERED: PIPERACILLIN/TAZOBACTAM 2.25 GM VIAL IVPB ONE ×3 (00:50→16:51)
[2019-05-03] MEDS ORDERED: DEXTROSE 5%-WATER - 50 ML IVPB ONE ×3 (00:51→16:51)
[2019-05-03] MEDS: PIPERACILLIN/TAZOB 2.25 GM 2.25 GM in DEXTROSE 5%-WATER - 50 ML IVPB SCH ×3 (01:05→17:09)
[2019-05-03] MEDS: INSULIN SLIDING SCALE (NOVOLOG) 1 VIAL SQ SCH ×2 (06:06→16:49)
[2019-05-03 08:12] LABS: HEMATOCRIT 48.7 % (35.4-49); HEMOGLOBIN 15.7 GM/dL (11.7-16.9); MCHC 32.3 g/dl (32.0-35.9); MEAN CELL VOLUME 83.6 fl (80-96); MEAN PLT VOLUME 7.4 fl (7.5-11.1); PLATELET COUNT 421 K/MM3 (134-434); RBC 5.82 M/mm3 (4.00-5.60); RDW 14.6 % (11.9-15.9); WHITE BLOOD COUNT 12.7 K/mm3 (4.0-10.0)
[2019-05-03 08:22] LABS: ALBUMIN 3.1 g/dl (3.4-5.0); BILIRUBIN,TOTAL 1.2 mg/dL (0.2-1); BLOOD UREA NITROGEN 17.5 mg/dL (7-18); CALCIUM 9.8 mg/dL (8.5-10.1); CREATININE 0.8 mg/dL (0.55-1.3); POTASSIUM 4.5 mmol/L (3.5-5.1); TOT PROT 6.5 g/dl (6.4-8.2)
--- NOTE | 2019-05-03 10:15 | PN ---
Progress Note (short form) - Note Progress Note: Resting in NAD on RA. Reports breathing is better. Less cough. No fevers. No acute events overnight. Intake & Output 04/30/19 05/01/19 05/02/19 05/03/19 23:59 23:59 23:59 23:59 Intake Total 820 350 668 350 Output Total 400 1100 Balance 420 -750 668 350 Weight 129 lb Last Vital Signs Temp Pulse Resp BP Pulse Ox 92.1 F L 83 19 119/83 90 L 05/03/19 05:20 05/03/19 05:20 05/03/19 05:20 05/03/19 05:20 05/02/19 09:00 Active Medications Acetaminophen (Tylenol -) 650 mg PO TID PRN PRN Reason: FEVER Albuterol Sulfate (Ventolin 0.083% Nebulizer Soln -) 1 amp NEB RQ4H [facility] Last Admin: 05/03/19 04:00 Dose: Not Given Artificial Tears (Artificial Tears) 1 drop OU QID [facility] Last Admin: 05/02/19 22:07 Dose: Not Given Aspirin (Asa -) 81 mg PO DAILY [facility] Last Admin: 05/02/19 09:42 Dose: 81 mg Atorvastatin Calcium (Lipitor -) 40 mg PO HS [facility] Last Admin: 05/02/19 22:06 Dose: Not Given Budesonide/Formoterol Fumarate (Symbicort 160/4.5mcg -) 1 puff IH BID [facility] Last Admin: 05/02/19 22:07 Dose: Not Given Carvedilol (Coreg -) 6.25 mg PO BID [facility] Last Admin: 05/02/19 22:07 Dose: Not Given Clopidogrel Bisulfate (Plavix -) 75 mg PO DAILY [facility] Last Admin: 05/02/19 09:42 Dose: 75 mg Donepezil HCl (Aricept -) 5 mg PO DAILY [facility] Last Admin: 05/02/19 09:42 Dose: 5 mg Famotidine (Pepcid -) 20 mg PO DAILY [facility] Last Admin: 05/02/19 09:42 Dose: 20 mg Guaifenesin (Robitussin -) 10 ml PO Q6H PRN PRN Reason: COUGH Last Admin: 04/28/19 16:54 Dose: 10 ml Piperacillin Sod/Tazobactam (Sod 2.25 gm/ Dextrose) 50 mls @ 100 mls/hr IVPB Q8H-IV [facility]; Protocol Last Admin: 05/03/19 01:05 Dose: 100 mls/hr Insulin Aspart (Novolog Vial Sliding Scale -) 1 vial SQ BIDAC [facility]; Protocol Last Admin: 05/03/19 06:06 Dose: Not Given Latanoprost (Xalatan 0.005% Eye Drops -) 1 drop OU HS [facility] Last Admin: 05/02/19 22:07 Dose: Not Given Lisinopril (Prinivil) 5 mg PO DAILY [facility] Last Admin: 05/02/19 09:42 Dose: 5 mg Methylprednisolone Sodium Succinate (Solu-Medrol -) 40 mg IVPB BID [facility] Last Admin: 05/02/19 22:06 Dose: 40 mg Montelukast Sodium (Singulair -) 10 mg PO HS [facility] Last Admin: 05/02/19 22:06 Dose: Not Given Polyethylene Glycol (Miralax (For Daily Use) -) 17 gm PO DAILY [facility] Last Admin: 05/02/19 09:44 Dose: 17 gm Gen: NAD at rest Heart: RRR Lung: distant breath sounds Abd: soft, nontender Ext: no edema Laboratory Results - last 24 hr 05/02/19 05/02/19 05/03/19 11:25 16:15 06:55 WBC 12.7 H RBC 5.82 H Hgb 15.7 Hct 48.7 MCV 83.6 MCH 27.0 MCHC 32.3 RDW 14.6 Plt Count 421 MPV 7.4 L Sodium Potassium Chloride Carbon Dioxide Anion Gap BUN Creatinine Est GFR (CKD-EPI)AfAm Est GFR (CKD-EPI)NonAf POC Glucometer 192 233 Random Glucose Calcium Total Bilirubin AST ALT Alkaline Phosphatase Total Protein Albumin 05/03/19 05/03/19 06:55 07:00 WBC RBC Hgb Hct MCV MCH MCHC RDW Plt Count MPV Sodium 134 L Potassium 4.5 Chloride 93 L Carbon Dioxide 36 H Anion Gap 6 L BUN 17.5 Creatinine 0.8 Est GFR (CKD-EPI)AfAm 95.07 Est GFR (CKD-EPI)NonAf 82.03 POC Glucometer 168 Random Glucose 136 H Calcium 9.8 Total Bilirubin 1.2 H AST 29 ALT 50 Alkaline Phosphatase 86 Total Protein 6.5 Albumin 3.1 L A/P Acute Kidney Injury Acute COPD Exacerbation LV Diastolic Dysfunction Lactic Acidosis Prostate Ca h/o AAA - ABX per ID - Can change to Prednisone taper if DC is anticipated - inhaled bronchodilators - O2 to keep Spo2 >90% - DVT prophylaxis - There is Pulmonary contraindication for DC planning Dr Dominguez
[2019-05-03] MEDS: LISINOPRIL 5 MG TABLET (FP) PO SCH (10:17)
[2019-05-03] MEDS: DONEPEZIL HCL 5 MG TABLET (FP) PO SCH (10:17)
[2019-05-03] MEDS: methylPREDNISolone NA SUCC 40 MG/1 ML VIAL IVPB SCH ×2 (10:17→21:24)
[2019-05-03] MEDS: CARVEDILOL 6.25 MG TABLET (FP) PO SCH ×2 (10:17→21:24)
[2019-05-03] MEDS: CLOPIDOGREL BISULFATE 75 MG TABLET (FP) PO SCH (10:17)
[2019-05-03] MEDS: ASPIRIN 81 MG CHEWABLE TABLETS PO SCH (10:17)
[2019-05-03] MEDS: ARTIFICIAL TEARS (POLYVINYL ALCOHOL) OPTH DROPS OU SCH ×4 (10:18→21:24)
[2019-05-03] MEDS: POLYETHYLENE GLYCOL 3350 119 GM BTL PO SCH (10:18)
[2019-05-03] MEDS: FAMOTIDINE 20 MG TABLET PO SCH (10:18)
[2019-05-03] MEDS: BUDESONIDE/FORMETEROL FUMARATE 160/4.5 mcg INHALER IH SCH ×2 (10:18→21:24)
--- NOTE | 2019-05-03 14:22 | PN ---
Progress Note, Physician History of Present Illness: Pt w/o fever, chills, CP/ palpitations/ SOB/ abd pain, N/ V. Pt w/o diarrhea. - Current Medication List Current Medications: Active Medications Acetaminophen (Tylenol -) 650 mg PO TID PRN PRN Reason: FEVER Albuterol Sulfate (Ventolin 0.083% Nebulizer Soln -) 1 amp NEB RQ4H [facility] Last Admin: 05/03/19 04:00 Dose: Not Given Artificial Tears (Artificial Tears) 1 drop OU QID [facility] Last Admin: 05/03/19 10:18 Dose: 1 drop Aspirin (Asa -) 81 mg PO DAILY [facility] Last Admin: 05/03/19 10:17 Dose: 81 mg Atorvastatin Calcium (Lipitor -) 40 mg PO HS [facility] Last Admin: 05/02/19 22:06 Dose: Not Given Budesonide/Formoterol Fumarate (Symbicort 160/4.5mcg -) 1 puff IH BID [facility] Last Admin: 05/03/19 10:18 Dose: 1 puff Carvedilol (Coreg -) 6.25 mg PO BID [facility] Last Admin: 05/03/19 10:17 Dose: 6.25 mg Clopidogrel Bisulfate (Plavix -) 75 mg PO DAILY [facility] Last Admin: 05/03/19 10:17 Dose: 75 mg Donepezil HCl (Aricept -) 5 mg PO DAILY [facility] Last Admin: 05/03/19 10:17 Dose: 5 mg Famotidine (Pepcid -) 20 mg PO DAILY [facility] Last Admin: 05/03/19 10:18 Dose: 20 mg Guaifenesin (Robitussin -) 10 ml PO Q6H PRN PRN Reason: COUGH Last Admin: 04/28/19 16:54 Dose: 10 ml Piperacillin Sod/Tazobactam (Sod 2.25 gm/ Dextrose) 50 mls @ 100 mls/hr IVPB Q8H-IV [facility]; Protocol Last Admin: 05/03/19 10:14 Dose: 100 mls/hr Insulin Aspart (Novolog Vial Sliding Scale -) 1 vial SQ BIDAC [facility]; Protocol Last Admin: 05/03/19 06:06 Dose: Not Given Latanoprost (Xalatan 0.005% Eye Drops -) 1 drop OU HS [facility] Last Admin: 05/02/19 22:07 Dose: Not Given Lisinopril (Prinivil) 5 mg PO DAILY [facility] Last Admin: 05/03/19 10:17 Dose: 5 mg Methylprednisolone Sodium Succinate (Solu-Medrol -) 40 mg IVPB BID [facility] Last Admin: 05/03/19 10:17 Dose: 40 mg Montelukast Sodium (Singulair -) 10 mg PO HS [facility] Last Admin: 05/02/19 22:06 Dose: Not Given Polyethylene Glycol (Miralax (For Daily Use) -) 17 gm PO DAILY [facility] Last Admin: 05/03/19 10:18 Dose: Not Given - Objective Vital Signs: Vital Signs Temperature 92.1 F L 05/03/19 05:20 Pulse Rate 68 05/03/19 09:00 Respiratory Rate 18 05/03/19 09:00 Blood Pressure 154/85 05/03/19 09:00 O2 Sat by Pulse Oximetry (%) 90 L 05/02/19 09:00 Constitutional: Yes: No Distress, Calm Cardiovascular: Yes: Regular Rate and Rhythm, S1, S2 Respiratory: Yes: Regular, Other (coarse BS, bilateral) Gastrointestinal: Yes: Normal Bowel Sounds, Soft. No: Tenderness Edema: No Neurological: Yes: Alert, Oriented Labs: CBC, BMP 05/03/19 06:55 05/03/19 06:55 Problem List - Problems (1) Sepsis Code(s): A41.9 - SEPSIS, UNSPECIFIED ORGANISM (2) Pneumonia Code(s): J18.9 - PNEUMONIA, UNSPECIFIED ORGANISM Qualifiers: Pneumonia type: aspiration pneumonia Aspiration pneumonia type: unspecified Laterality: bilateral Lung location: unspecified part of lung Qualified Code(s): J69.0 - Pneumonitis due to inhalation of food and vomit (3) SOLANGE (acute kidney injury) Code(s): N17.9 - ACUTE KIDNEY FAILURE, UNSPECIFIED (4) CHF (congestive heart failure) Code(s): I50.9 - HEART FAILURE, UNSPECIFIED Qualifiers: Heart failure type: unspecified Heart failure chronicity: chronic Qualified Code(s): I50.9 - Heart failure, unspecified (5) COPD exacerbation Code(s): J44.1 - CHRONIC OBSTRUCTIVE PULMONARY DISEASE W (ACUTE) EXACERBATION (6) Prostate cancer Code(s): C61 - MALIGNANT NEOPLASM OF PROSTATE (7) Diabetes mellitus Code(s): E11.9 - TYPE 2 DIABETES MELLITUS WITHOUT COMPLICATIONS (8) Diarrhea Code(s): R19.7 - DIARRHEA, UNSPECIFIED Assessment/Plan Continue IV abtx Continue IV Steroids Pulmonary, Cardio, Renal consults are appreciated. Renal function is back to normal BGM BIDAC -to f/u AM labs
[2019-05-03] MEDS: MONTELUKAST NA 10 MG TABLET PO SCH (21:24)
[2019-05-03] MEDS: LATANOPROST 0.005% OPHTH SOLN 2.5ML BOTTLE OU SCH (21:24)
[2019-05-03] MEDS: ATORVASTATIN CA 40 MG TABLET (FP) PO SCH (21:24)
[2019-05-04] MEDS ORDERED: PIPERACILLIN/TAZOBACTAM 2.25 GM VIAL IVPB ONE ×3 (00:59→17:06)
[2019-05-04] MEDS ORDERED: DEXTROSE 5%-WATER - 50 ML IVPB ONE ×3 (00:59→17:07)
[2019-05-04] MEDS: PIPERACILLIN/TAZOB 2.25 GM 2.25 GM in DEXTROSE 5%-WATER - 50 ML IVPB SCH ×3 (01:10→17:21)
[2019-05-04] MEDS: ALBUTEROL SO4 0.083% IH SOL 2.5 MG/3 ML VIAL.NEB. NEB SCH ×6 (04:21→20:15)
[2019-05-04] MEDS: INSULIN SLIDING SCALE (NOVOLOG) 1 VIAL SQ SCH ×2 (06:19→17:22)
[2019-05-04 08:34] LABS: HEMATOCRIT 46.9 % (35.4-49); HEMOGLOBIN 15.4 GM/dL (11.7-16.9); MCH 27.6 pg (25.7-33.7); MCHC 32.8 g/dl (32.0-35.9); MEAN CELL VOLUME 83.9 fl (80-96); MEAN PLT VOLUME 7.3 fl (7.5-11.1); PLATELET COUNT 367 K/MM3 (134-434); RBC 5.59 M/mm3 (4.00-5.60); RDW 14.9 % (11.9-15.9); WHITE BLOOD COUNT 13.2 K/mm3 (4.0-10.0)
[2019-05-04] MEDS: CARVEDILOL 6.25 MG TABLET (FP) PO SCH ×2 (09:00→21:35)
[2019-05-04] MEDS: LISINOPRIL 5 MG TABLET (FP) PO SCH (09:00)
[2019-05-04] MEDS: CLOPIDOGREL BISULFATE 75 MG TABLET (FP) PO SCH (09:00)
[2019-05-04] MEDS: POLYETHYLENE GLYCOL 3350 119 GM BTL PO SCH (09:00)
[2019-05-04] MEDS: ARTIFICIAL TEARS (POLYVINYL ALCOHOL) OPTH DROPS OU SCH ×4 (09:00→21:36)
[2019-05-04] MEDS: FAMOTIDINE 20 MG TABLET PO SCH (09:00)
[2019-05-04] MEDS: ASPIRIN 81 MG CHEWABLE TABLETS PO SCH (09:00)
[2019-05-04] MEDS: DONEPEZIL HCL 5 MG TABLET (FP) PO SCH (09:01)
[2019-05-04] MEDS: methylPREDNISolone NA SUCC 40 MG/1 ML VIAL IVPB SCH (09:02)
[2019-05-04] MEDS: BUDESONIDE/FORMETEROL FUMARATE 160/4.5 mcg INHALER IH SCH ×2 (09:10→21:36)
[2019-05-04 09:16] LABS: BILIRUBIN,TOTAL 1.4 mg/dL (0.2-1); BLOOD UREA NITROGEN 20.2 mg/dL (7-18); CALCIUM 9.6 mg/dL (8.5-10.1); CREATININE 0.7 mg/dL (0.55-1.3); POTASSIUM 4.3 mmol/L (3.5-5.1); TOT PROT 6.2 g/dl (6.4-8.2)
--- NOTE | 2019-05-04 12:55 | PN ---
Progress Note (short form) - Note Progress Note: PULMONARY OFFERS NO COMPLAINTS VSS/AFEBRILE Gen: NAD at rest Heart: RRR Lung: distant breath sounds Abd: soft, nontender Ext: no edema MEDS/LABS/NOTES/IMAGES REVIEWED A/P Acute Kidney Injury Acute COPD Exacerbation LV Diastolic Dysfunction Lactic Acidosis Prostate Ca h/o AAA - ABX per ID - Prednisone initiated/medrol discontinued - inhaled bronchodilators - O2 to keep Spo2 >90% - DVT prophylaxis - There is Pulmonary contraindication for DC planning Salina SIMMONS MD Problem List - Problems (1) Sepsis Code(s): A41.9 - SEPSIS, UNSPECIFIED ORGANISM (2) Dementia Code(s): F03.90 - UNSPECIFIED DEMENTIA WITHOUT BEHAVIORAL DISTURBANCE (3) Pneumonia Code(s): J18.9 - PNEUMONIA, UNSPECIFIED ORGANISM Qualifiers: Pneumonia type: aspiration pneumonia Aspiration pneumonia type: unspecified Laterality: bilateral Lung location: unspecified part of lung Qualified Code(s): J69.0 - Pneumonitis due to inhalation of food and vomit (4) Wasting syndrome Code(s): R64 - [place]
[2019-05-04] MEDS: predniSONE 20 MG TABLET (UD) PO SCH (13:17)
--- NOTE | 2019-05-04 16:17 | PN ---
Progress Note, Physician History of Present Illness: AWAKE, ALERT SEATED IN BED NO COMPLAINTS AFEBRILE WBC SL ELEVATED - Current Medication List Current Medications: Active Medications Acetaminophen (Tylenol -) 650 mg PO TID PRN PRN Reason: FEVER Albuterol Sulfate (Ventolin 0.083% Nebulizer Soln -) 1 amp NEB RQ4H [facility] Last Admin: 05/04/19 15:19 Dose: 1 amp Artificial Tears (Artificial Tears) 1 drop OU QID [facility] Last Admin: 05/04/19 13:18 Dose: 1 drop Aspirin (Asa -) 81 mg PO DAILY [facility] Last Admin: 05/04/19 09:00 Dose: 81 mg Atorvastatin Calcium (Lipitor -) 40 mg PO HS [facility] Last Admin: 05/03/19 21:24 Dose: 40 mg Budesonide/Formoterol Fumarate (Symbicort 160/4.5mcg -) 1 puff IH BID [facility] Last Admin: 05/04/19 09:10 Dose: 1 puff Carvedilol (Coreg -) 6.25 mg PO BID [facility] Last Admin: 05/04/19 09:00 Dose: 6.25 mg Clopidogrel Bisulfate (Plavix -) 75 mg PO DAILY [facility] Last Admin: 05/04/19 09:00 Dose: 75 mg Donepezil HCl (Aricept -) 5 mg PO DAILY [facility] Last Admin: 05/04/19 09:01 Dose: 5 mg Famotidine (Pepcid -) 20 mg PO DAILY [facility] Last Admin: 05/04/19 09:00 Dose: 20 mg Guaifenesin (Robitussin -) 10 ml PO Q6H PRN PRN Reason: COUGH Last Admin: 04/28/19 16:54 Dose: 10 ml Piperacillin Sod/Tazobactam (Sod 2.25 gm/ Dextrose) 50 mls @ 100 mls/hr IVPB Q8H-IV [facility]; Protocol Last Admin: 05/04/19 09:10 Dose: 100 mls/hr Insulin Aspart (Novolog Vial Sliding Scale -) 1 vial SQ BIDAC [facility]; Protocol Last Admin: 05/04/19 06:19 Dose: 2 units Latanoprost (Xalatan 0.005% Eye Drops -) 1 drop OU HS [facility] Last Admin: 05/03/19 21:24 Dose: 1 drop Lisinopril (Prinivil) 5 mg PO DAILY [facility] Last Admin: 05/04/19 09:00 Dose: 5 mg Montelukast Sodium (Singulair -) 10 mg PO HS [facility] Last Admin: 05/03/19 21:24 Dose: 10 mg Polyethylene Glycol (Miralax (For Daily Use) -) 17 gm PO DAILY [facility] Last Admin: 05/04/19 09:00 Dose: Not Given Prednisone (Deltasone -) 20 mg PO DAILY [facility] Last Admin: 05/04/19 13:17 Dose: 20 mg - Objective Vital Signs: Vital Signs Temperature 97.9 F 05/04/19 13:44 Pulse Rate 65 05/04/19 13:44 Respiratory Rate 20 05/04/19 13:44 Blood Pressure 158/76 05/04/19 13:44 O2 Sat by Pulse Oximetry (%) 96 05/04/19 09:00 Constitutional: Yes: No Distress Cardiovascular: Yes: Regular Rate and Rhythm, S1, S2 Respiratory: Yes: Diminished Gastrointestinal: Yes: Normal Bowel Sounds, Soft. No: Tenderness Labs: CBC, BMP 05/04/19 07:20 05/04/19 07:20 Assessment/Plan R/O HCAP LEUKOCYTOSIS LACTIC ACIDOSIS AZOTEMIA IMPROVED CONTINUE EMPIRIC ZOSYN SUBSTITUTE PO AUGMENTIN NEXT 24H
--- NOTE | 2019-05-04 16:56 | PN ---
Progress Note, Physician Chief Complaint: Pt more alert; sitting up in bed; at bedside. No chest pain or dyspnea. History of Present Illness: 84-year-old black male with PM history of COPD, diastolic CHF, hypertension, abdominal aortic aneurysm, prostate CA, arthritis, dementia, recently admitted and discharged yesterday for pneumonia,, COPD, and slight CHF exacerbation. Here today with concerns by the and the home health aide for a fever 102, hypotension, and with increasing lethargy. Patient's provides history as the patient is currently not answering any questions denies any nausea or vomiting does still have a cough; no other current complaints. - Current Medication List Current Medications: Active Medications Acetaminophen (Tylenol -) 650 mg PO TID PRN PRN Reason: FEVER Albuterol Sulfate (Ventolin 0.083% Nebulizer Soln -) 1 amp NEB RQ4H [facility]PL[facility] Last Admin: 05/04/19 15:19 Dose: 1 amp Artificial Tears (Artificial Tears) 1 drop OU QID [facility] Last Admin: 05/04/19 13:18 Dose: 1 drop Aspirin (Asa -) 81 mg PO DAILY [facility] Last Admin: 05/04/19 09:00 Dose: 81 mg Atorvastatin Calcium (Lipitor -) 40 mg PO HS [facility] Last Admin: 05/03/19 21:24 Dose: 40 mg Budesonide/Formoterol Fumarate (Symbicort 160/4.5mcg -) 1 puff IH BID [facility] Last Admin: 05/04/19 09:10 Dose: 1 puff Carvedilol (Coreg -) 6.25 mg PO BID [facility] Last Admin: 05/04/19 09:00 Dose: 6.25 mg Clopidogrel Bisulfate (Plavix -) 75 mg PO DAILY [facility] Last Admin: 05/04/19 09:00 Dose: 75 mg Donepezil HCl (Aricept -) 5 mg PO DAILY [facility] Last Admin: 05/04/19 09:01 Dose: 5 mg Famotidine (Pepcid -) 20 mg PO DAILY [facility] Last Admin: 05/04/19 09:00 Dose: 20 mg Guaifenesin (Robitussin -) 10 ml PO Q6H PRN PRN Reason: COUGH Last Admin: 04/28/19 16:54 Dose: 10 ml Piperacillin Sod/Tazobactam (Sod 2.25 gm/ Dextrose) 50 mls @ 100 mls/hr IVPB Q8H-IV [facility]; Protocol Last Admin: 05/04/19 09:10 Dose: 100 mls/hr Insulin Aspart (Novolog Vial Sliding Scale -) 1 vial SQ BIDAC [facility]PL[facility]; Protocol Last Admin: 05/04/19 06:19 Dose: 2 units Latanoprost (Xalatan 0.005% Eye Drops -) 1 drop OU HS [facility] Last Admin: 05/03/19 21:24 Dose: 1 drop Lisinopril (Prinivil) 5 mg PO DAILY [facility] Last Admin: 05/04/19 09:00 Dose: 5 mg Montelukast Sodium (Singulair -) 10 mg PO HS [facility] Last Admin: 05/03/19 21:24 Dose: 10 mg Polyethylene Glycol (Miralax (For Daily Use) -) 17 gm PO DAILY [facility] Last Admin: 05/04/19 09:00 Dose: Not Given Prednisone (Deltasone -) 20 mg PO DAILY [facility] Last Admin: 05/04/19 13:17 Dose: 20 mg - Objective Vital Signs: Vital Signs Temperature 97.9 F 05/04/19 13:44 Pulse Rate 65 05/04/19 13:44 Respiratory Rate 20 05/04/19 13:44 Blood Pressure 158/76 05/04/19 13:44 O2 Sat by Pulse Oximetry (%) 96 05/04/19 09:00 Constitutional: Yes: Calm HENT: Yes: WNL Neck: Yes: WNL Cardiovascular: Yes: Regular Rate and Rhythm, S1, S2, S4 Respiratory: Yes: Regular Gastrointestinal: Yes: Soft ...Rectal Exam: Yes: Deferred Genitourinary: No: Anuria Breast(s): Yes: WNL Musculoskeletal: Yes: Muscle Weakness Extremities: Yes: Cool Edema: No Peripheral Pulses WNL: Yes Integumentary: Yes: WNL Neurological: Yes: Alert, Weakness Psychiatric: Yes: Alert, Other Labs: CBC, BMP 05/04/19 07:20 05/04/19 07:20 Abnormal Lab Results 05/06/19 05/06/19 06:20 06:20 WBC 15.0 H RBC 5.73 H Hct 49.2 H MPV 7.2 L Absolute Neuts (auto) 12.4 H Chloride 97 L BUN 21.0 H Total Bilirubin 1.4 H Total Protein 6.0 L Albumin 3.0 L - ....Imaging Chest X-ray: Image Reviewed EKG: Image Reviewed Problem List - Problems (1) Sepsis Assessment/Plan: Leukocytosis CXR: no acute process. F/u cultures, temperature. On antibiotics. 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 Code(s): J44.1 - CHRONIC OBSTRUCTIVE PULMONARY DISEASE W (ACUTE) EXACERBATION (4) Diastolic CHF Assessment/Plan: On carvediilol and lisinorpil. F/u BUn/ce, electrolytes, daily weight, Is and Os. Code(s): I50.30 - UNSPECIFIED DIASTOLIC (CONGESTIVE) HEART FAILURE (5) Hyperlipidemia Code(s): E78.5 - HYPERLIPIDEMIA, UNSPECIFIED (6) Weakness Code(s): R53.1 - WEAKNESS (7) Dehydration Assessment/Plan: Transient acute elevation of BUN/Cr compared to recent admission; now significantly improved. Encourage PO liquids (pt's says he often does not drink enough water); no diuretic presently. Code(s): E86.0 - DEHYDRATION (8) Hypotension Assessment/Plan: reportedly hypotensive and febrile at home; BP not hypotensive since admission; at times, markedly hypertensive. Once again on carvedilol and lisinopril; adjust doses accordingly. Code(s): I95.9 - HYPOTENSION, UNSPECIFIED (9) Memory loss Assessment/Plan: On Aricept; periods of mental status change. Code(s): R41.3 - OTHER AMNESIA
--- NOTE | 2019-05-04 17:14 | PN ---
Progress Note, Physician Chief Complaint: in bed NAD VSS some coughing but better - Current Medication List Current Medications: Active Medications Acetaminophen (Tylenol -) 650 mg PO TID PRN PRN Reason: FEVER Albuterol Sulfate (Ventolin 0.083% Nebulizer Soln -) 1 amp NEB RQ4H [facility] Last Admin: 05/04/19 15:19 Dose: 1 amp Artificial Tears (Artificial Tears) 1 drop OU QID [facility] Last Admin: 05/04/19 13:18 Dose: 1 drop Aspirin (Asa -) 81 mg PO DAILY [facility] Last Admin: 05/04/19 09:00 Dose: 81 mg Atorvastatin Calcium (Lipitor -) 40 mg PO HS [facility] Last Admin: 05/03/19 21:24 Dose: 40 mg Budesonide/Formoterol Fumarate (Symbicort 160/4.5mcg -) 1 puff IH BID [facility] Last Admin: 05/04/19 09:10 Dose: 1 puff Carvedilol (Coreg -) 6.25 mg PO BID [facility] Last Admin: 05/04/19 09:00 Dose: 6.25 mg Clopidogrel Bisulfate (Plavix -) 75 mg PO DAILY [facility] Last Admin: 05/04/19 09:00 Dose: 75 mg Donepezil HCl (Aricept -) 5 mg PO DAILY [facility] Last Admin: 05/04/19 09:01 Dose: 5 mg Famotidine (Pepcid -) 20 mg PO DAILY [facility] Last Admin: 05/04/19 09:00 Dose: 20 mg Guaifenesin (Robitussin -) 10 ml PO Q6H PRN PRN Reason: COUGH Last Admin: 04/28/19 16:54 Dose: 10 ml Piperacillin Sod/Tazobactam (Sod 2.25 gm/ Dextrose) 50 mls @ 100 mls/hr IVPB Q8H-IV [facility]; Protocol Last Admin: 05/04/19 09:10 Dose: 100 mls/hr Insulin Aspart (Novolog Vial Sliding Scale -) 1 vial SQ BIDAC [facility]; Protocol Last Admin: 05/04/19 06:19 Dose: 2 units Latanoprost (Xalatan 0.005% Eye Drops -) 1 drop OU HS [facility] Last Admin: 05/03/19 21:24 Dose: 1 drop Lisinopril (Prinivil) 5 mg PO DAILY [facility] Last Admin: 05/04/19 09:00 Dose: 5 mg Montelukast Sodium (Singulair -) 10 mg PO HS [facility] Last Admin: 05/03/19 21:24 Dose: 10 mg Polyethylene Glycol (Miralax (For Daily Use) -) 17 gm PO DAILY [facility] Last Admin: 05/04/19 09:00 Dose: Not Given Prednisone (Deltasone -) 20 mg PO DAILY [facility] Last Admin: 05/04/19 13:17 Dose: 20 mg - Objective Vital Signs: Vital Signs Temperature 97.9 F 05/04/19 13:44 Pulse Rate 65 05/04/19 13:44 Respiratory Rate 20 05/04/19 13:44 Blood Pressure 158/76 05/04/19 13:44 O2 Sat by Pulse Oximetry (%) 96 05/04/19 09:00 Constitutional: Yes: No Distress, Calm Eyes: Yes: Conjunctiva Clear HENT: Yes: Atraumatic Neck: Yes: Supple Cardiovascular: Yes: Regular Rate and Rhythm Respiratory: Yes: Diminished Gastrointestinal: Yes: Soft. No: Tenderness Genitourinary: No: Hematuria Extremities: No: Cold, Cool, Cyanosis Edema: No Neurological: Yes: Alert ...Motor Strength: WNL Psychiatric: Yes: Alert. No: Agitated Labs: CBC, BMP 05/04/19 07:20 05/04/19 07:20 - ....Imaging Other: Report Reviewed Assessment/Plan 84 y/o man with hx CHF, prior CVA, HTN, HLD, COPD, dementia admitted with pneumonia and ARF/CRF dehydration IV ATB po steroids cardio, pulm and renal f/u f/u labs falls decubs aspiration PFX [facility] PT rehab d/w pt and staff
[2019-05-04] MEDS ORDERED: INSULIN (NOVOLOG) ASPART 100 UNITS/ML 10ML VIAL ONE (17:24)
[2019-05-04] MEDS: MONTELUKAST NA 10 MG TABLET PO SCH (21:35)
[2019-05-04] MEDS: ATORVASTATIN CA 40 MG TABLET (FP) PO SCH (21:35)
[2019-05-04] MEDS: LATANOPROST 0.005% OPHTH SOLN 2.5ML BOTTLE OU SCH (21:36)
[2019-05-05] MEDS: ALBUTEROL SO4 0.083% IH SOL 2.5 MG/3 ML VIAL.NEB. NEB SCH ×6 (00:10→20:05)
[2019-05-05] MEDS ORDERED: PIPERACILLIN/TAZOBACTAM 2.25 GM VIAL IVPB ONE ×4 (00:50→17:31)
[2019-05-05] MEDS ORDERED: DEXTROSE 5%-WATER - 50 ML IVPB ONE ×4 (00:50→17:31)
[2019-05-05] MEDS: PIPERACILLIN/TAZOB 2.25 GM 2.25 GM in DEXTROSE 5%-WATER - 50 ML IVPB SCH ×3 (01:38→17:31)
[2019-05-05] MEDS: INSULIN SLIDING SCALE (NOVOLOG) 1 VIAL SQ SCH ×2 (06:05→17:22)
--- NOTE | 2019-05-05 07:54 | PN ---
Progress Note, Physician Chief Complaint: in bed NAD feelis better less cough walked 80 feet with PT at bedside - Current Medication List Current Medications: Active Medications Acetaminophen (Tylenol -) 650 mg PO TID PRN PRN Reason: FEVER Albuterol Sulfate (Ventolin 0.083% Nebulizer Soln -) 1 amp NEB RQ4H [facility] Last Admin: 05/05/19 03:51 Dose: Not Given Artificial Tears (Artificial Tears) 1 drop OU QID [facility] Last Admin: 05/04/19 21:36 Dose: 1 drop Aspirin (Asa -) 81 mg PO DAILY [facility] Last Admin: 05/04/19 09:00 Dose: 81 mg Atorvastatin Calcium (Lipitor -) 40 mg PO HS [facility] Last Admin: 05/04/19 21:35 Dose: 40 mg Budesonide/Formoterol Fumarate (Symbicort 160/4.5mcg -) 1 puff IH BID [facility] Last Admin: 05/04/19 21:36 Dose: 1 puff Carvedilol (Coreg -) 6.25 mg PO BID [facility] Last Admin: 05/04/19 21:35 Dose: 6.25 mg Clopidogrel Bisulfate (Plavix -) 75 mg PO DAILY [facility] Last Admin: 05/04/19 09:00 Dose: 75 mg Donepezil HCl (Aricept -) 5 mg PO DAILY [facility] Last Admin: 05/04/19 09:01 Dose: 5 mg Famotidine (Pepcid -) 20 mg PO DAILY [facility] Last Admin: 05/04/19 09:00 Dose: 20 mg Guaifenesin (Robitussin -) 10 ml PO Q6H PRN PRN Reason: COUGH Last Admin: 04/28/19 16:54 Dose: 10 ml Piperacillin Sod/Tazobactam (Sod 2.25 gm/ Dextrose) 50 mls @ 100 mls/hr IVPB Q8H-IV [facility]; Protocol Last Admin: 05/05/19 01:38 Dose: 100 mls/hr Insulin Aspart (Novolog Vial Sliding Scale -) 1 vial SQ BIDAC [facility]; Protocol Last Admin: 05/05/19 06:05 Dose: Not Given Latanoprost (Xalatan 0.005% Eye Drops -) 1 drop OU HS [facility] Last Admin: 05/04/19 21:36 Dose: 1 drop Lisinopril (Prinivil) 5 mg PO DAILY [facility] Last Admin: 05/04/19 09:00 Dose: 5 mg Montelukast Sodium (Singulair -) 10 mg PO HS [facility] Last Admin: 05/04/19 21:35 Dose: 10 mg Polyethylene Glycol (Miralax (For Daily Use) -) 17 gm PO DAILY [facility] Last Admin: 05/04/19 09:00 Dose: Not Given Prednisone (Deltasone -) 20 mg PO DAILY [facility] Last Admin: 05/04/19 13:17 Dose: 20 mg - Objective Vital Signs: Vital Signs Temperature 97.4 F L 05/05/19 06:02 Pulse Rate 100 H 05/05/19 06:02 Respiratory Rate 18 05/05/19 06:02 Blood Pressure 158/99 05/05/19 06:02 O2 Sat by Pulse Oximetry (%) 96 05/04/19 21:00 Constitutional: Yes: No Distress, Calm Eyes: Yes: Conjunctiva Clear HENT: Yes: Atraumatic Neck: Yes: Supple Cardiovascular: Yes: Regular Rate and Rhythm Respiratory: Yes: Diminished Gastrointestinal: Yes: Soft. No: Tenderness Genitourinary: No: Hematuria Musculoskeletal: No: Joint Stiffness, Joint Swelling Extremities: No: Cold, Cool Edema: No Integumentary: No: Rash, Venous Stasis Changes Neurological: Yes: Alert ...Motor Strength: WNL Psychiatric: Yes: Alert Labs: CBC, BMP 05/04/19 07:20 05/04/19 07:20 Assessment/Plan 84 y/o man with hx CHF, prior CVA, HTN, HLD, COPD, dementia admitted with pneumonia and ARF/CRF dehydration IV ATB po steroids cardio, pulm, ID and renal f/u f/u labs falls decubs aspiration PFX [facility] PT rehab d/w pt and staff d/w pt's at [facility]
[2019-05-05] MEDS: LISINOPRIL 5 MG TABLET (FP) PO SCH (09:57)
[2019-05-05] MEDS: CLOPIDOGREL BISULFATE 75 MG TABLET (FP) PO SCH (09:57)
[2019-05-05] MEDS: DONEPEZIL HCL 5 MG TABLET (FP) PO SCH (09:57)
[2019-05-05] MEDS: ASPIRIN 81 MG CHEWABLE TABLETS PO SCH (09:57)
[2019-05-05] MEDS: CARVEDILOL 6.25 MG TABLET (FP) PO SCH ×2 (09:57→21:54)
[2019-05-05] MEDS: predniSONE 20 MG TABLET (UD) PO SCH (09:57)
[2019-05-05] MEDS: FAMOTIDINE 20 MG TABLET PO SCH (09:58)
[2019-05-05] MEDS: ARTIFICIAL TEARS (POLYVINYL ALCOHOL) OPTH DROPS OU SCH ×4 (10:01→21:50)
[2019-05-05] MEDS: BUDESONIDE/FORMETEROL FUMARATE 160/4.5 mcg INHALER IH SCH ×2 (10:01→21:50)
[2019-05-05] MEDS: POLYETHYLENE GLYCOL 3350 119 GM BTL PO SCH (10:05)
--- NOTE | 2019-05-05 14:23 | PN ---
Progress Note (short form) - Note Progress Note: Resting in NAD on 2 L NC O2. Reports breathing is better. Less cough. No fevers. No acute events overnight. Intake & Output 05/02/19 05/03/19 05/04/19 05/05/19 23:59 23:59 23:59 23:59 Intake Total 668 1080 1260 318 Output Total 350 600 300 Balance 668 730 660 18 Last Vital Signs Temp Pulse Resp BP Pulse Ox 97.4 F L 100 H 18 158/99 96 05/05/19 06:02 05/05/19 06:02 05/05/19 09:00 05/05/19 06:02 05/05/19 09:00 Active Medications Acetaminophen (Tylenol -) 650 mg PO TID PRN PRN Reason: FEVER Albuterol Sulfate (Ventolin 0.083% Nebulizer Soln -) 1 amp NEB RQ4H [facility] Last Admin: 05/05/19 12:08 Dose: 1 amp Artificial Tears (Artificial Tears) 1 drop OU QID [facility] Last Admin: 05/05/19 10:01 Dose: 1 drop Aspirin (Asa -) 81 mg PO DAILY [facility] Last Admin: 05/05/19 09:57 Dose: 81 mg Atorvastatin Calcium (Lipitor -) 40 mg PO HS [facility] Last Admin: 05/04/19 21:35 Dose: 40 mg Budesonide/Formoterol Fumarate (Symbicort 160/4.5mcg -) 1 puff IH BID [facility] Last Admin: 05/05/19 10:01 Dose: 1 puff Carvedilol (Coreg -) 6.25 mg PO BID [facility] Last Admin: 05/05/19 09:57 Dose: 6.25 mg Clopidogrel Bisulfate (Plavix -) 75 mg PO DAILY [facility] Last Admin: 05/05/19 09:57 Dose: 75 mg Donepezil HCl (Aricept -) 5 mg PO DAILY [facility] Last Admin: 05/05/19 09:57 Dose: 5 mg Famotidine (Pepcid -) 20 mg PO DAILY [facility] Last Admin: 05/05/19 09:58 Dose: 20 mg Guaifenesin (Robitussin -) 10 ml PO Q6H PRN PRN Reason: COUGH Last Admin: 04/28/19 16:54 Dose: 10 ml Piperacillin Sod/Tazobactam (Sod 2.25 gm/ Dextrose) 50 mls @ 100 mls/hr IVPB Q8H-IV [facility]; Protocol Last Admin: 05/05/19 09:57 Dose: 100 mls/hr Insulin Aspart (Novolog Vial Sliding Scale -) 1 vial SQ BIDAC [facility]; Protocol Last Admin: 05/05/19 06:05 Dose: Not Given Latanoprost (Xalatan 0.005% Eye Drops -) 1 drop OU HS [facility] Last Admin: 05/04/19 21:36 Dose: 1 drop Lisinopril (Prinivil) 5 mg PO DAILY [facility] Last Admin: 05/05/19 09:57 Dose: 5 mg Montelukast Sodium (Singulair -) 10 mg PO HS [facility] Last Admin: 05/04/19 21:35 Dose: 10 mg Polyethylene Glycol (Miralax (For Daily Use) -) 17 gm PO DAILY [facility] Last Admin: 05/05/19 10:05 Dose: 17 gm Prednisone (Deltasone -) 20 mg PO DAILY [facility] Last Admin: 05/05/19 09:57 Dose: 20 mg Gen: NAD at rest Heart: RRR Lung: distant breath sounds Abd: soft, nontender Ext: no edema Intake & Output 05/02/19 05/03/19 05/04/19 05/05/19 23:59 23:59 23:59 23:59 Intake Total 668 1080 1260 318 Output Total 350 600 300 Balance 668 730 660 18 A/P Acute Kidney Injury Acute COPD Exacerbation LV Diastolic Dysfunction Lactic Acidosis Prostate Ca h/o AAA - ABX per ID - Prednisone - inhaled bronchodilators - O2 to keep Spo2 >90% - DVT prophylaxis - There is Pulmonary contraindication for DC planning once changed to PO ABX Dr Dominguez
[2019-05-05] MEDS: ATORVASTATIN CA 40 MG TABLET (FP) PO SCH (21:50)
[2019-05-05] MEDS: MONTELUKAST NA 10 MG TABLET PO SCH (21:50)
[2019-05-05] MEDS: LATANOPROST 0.005% OPHTH SOLN 2.5ML BOTTLE OU SCH (21:50)
[2019-05-06] MEDS: ALBUTEROL SO4 0.083% IH SOL 2.5 MG/3 ML VIAL.NEB. NEB SCH ×6 (00:17→19:53)
[2019-05-06] MEDS ORDERED: PIPERACILLIN/TAZOBACTAM 2.25 GM VIAL IVPB ONE ×2 (01:28→08:50)
[2019-05-06] MEDS ORDERED: DEXTROSE 5%-WATER - 50 ML IVPB ONE ×2 (01:29→08:50)
[2019-05-06] MEDS: PIPERACILLIN/TAZOB 2.25 GM 2.25 GM in DEXTROSE 5%-WATER - 50 ML IVPB SCH ×3 (01:45→18:00)
[2019-05-06] MEDS: INSULIN SLIDING SCALE (NOVOLOG) 1 VIAL SQ SCH ×2 (06:00→17:08)
[2019-05-06 07:25] LABS: BASO % 0.2 % (0-2.0); HEMATOCRIT 49.2 % (35.4-49); HEMOGLOBIN 15.9 GM/dL (11.7-16.9); LYMPH % 9.2 % (8-40); MCH 27.8 pg (25.7-33.7); MCHC 32.4 g/dl (32.0-35.9); MEAN CELL VOLUME 85.9 fl (80-96); MEAN PLT VOLUME 7.2 fl (7.5-11.1); MONO % 6.9 % (3.8-10.2); NEUT % 82.7 % (42.8-82.8); PLATELET COUNT 325 K/MM3 (134-434); RBC 5.73 M/mm3 (4.00-5.60); RDW 14.8 % (11.9-15.9)
[2019-05-06 09:03] LABS: BILIRUBIN,TOTAL 1.4 mg/dL (0.2-1); CALCIUM 9.6 mg/dL (8.5-10.1); CREATININE 0.7 mg/dL (0.55-1.3); POTASSIUM 4.5 mmol/L (3.5-5.1)
[2019-05-06] MEDS: ASPIRIN 81 MG CHEWABLE TABLETS PO SCH (09:21)
[2019-05-06] MEDS: ARTIFICIAL TEARS (POLYVINYL ALCOHOL) OPTH DROPS OU SCH ×4 (09:21→22:32)
[2019-05-06] MEDS: DONEPEZIL HCL 5 MG TABLET (FP) PO SCH (09:21)
[2019-05-06] MEDS: CLOPIDOGREL BISULFATE 75 MG TABLET (FP) PO SCH (09:21)
[2019-05-06] MEDS: predniSONE 20 MG TABLET (UD) PO SCH (09:21)
[2019-05-06] MEDS: CARVEDILOL 6.25 MG TABLET (FP) PO SCH ×2 (09:21→22:32)
[2019-05-06] MEDS: FAMOTIDINE 20 MG TABLET PO SCH (09:21)
[2019-05-06] MEDS: LISINOPRIL 5 MG TABLET (FP) PO SCH (09:21)
[2019-05-06] MEDS: POLYETHYLENE GLYCOL 3350 119 GM BTL PO SCH (09:22)
[2019-05-06] MEDS: BUDESONIDE/FORMETEROL FUMARATE 160/4.5 mcg INHALER IH SCH ×2 (09:22→22:31)
--- NOTE | 2019-05-06 10:25 | PN ---
Progress Note (short form) - Note Progress Note: Resting in NAD on 2 L NC O2. Reports breathing is overall better. Less cough. No fevers. No acute events overnight. Intake & Output 05/03/19 05/04/19 05/05/19 05/06/19 23:59 23:59 23:59 23:59 Intake Total 1080 1260 1170 600 Output Total 350 600 300 Balance 730 660 870 600 Last Vital Signs Temp Pulse Resp BP Pulse Ox 97.8 F 80 20 165/81 96 05/06/19 07:52 05/06/19 07:52 05/06/19 07:52 05/06/19 07:52 05/05/19 21:00 Active Medications Acetaminophen (Tylenol -) 650 mg PO TID PRN PRN Reason: FEVER Albuterol Sulfate (Ventolin 0.083% Nebulizer Soln -) 1 amp NEB RQ4H [facility] Last Admin: 05/06/19 07:33 Dose: 1 amp Artificial Tears (Artificial Tears) 1 drop OU QID [facility] Last Admin: 05/06/19 09:21 Dose: 1 drop Aspirin (Asa -) 81 mg PO DAILY [facility] Last Admin: 05/06/19 09:21 Dose: 81 mg Atorvastatin Calcium (Lipitor -) 40 mg PO HS [facility] Last Admin: 05/05/19 21:50 Dose: 40 mg Budesonide/Formoterol Fumarate (Symbicort 160/4.5mcg -) 1 puff IH BID [facility] Last Admin: 05/06/19 09:22 Dose: 1 puff Carvedilol (Coreg -) 6.25 mg PO BID [facility] Last Admin: 05/06/19 09:21 Dose: 6.25 mg Clopidogrel Bisulfate (Plavix -) 75 mg PO DAILY [facility] Last Admin: 05/06/19 09:21 Dose: 75 mg Donepezil HCl (Aricept -) 5 mg PO DAILY [facility] Last Admin: 05/06/19 09:21 Dose: 5 mg Famotidine (Pepcid -) 20 mg PO DAILY [facility] Last Admin: 05/06/19 09:21 Dose: 20 mg Guaifenesin (Robitussin -) 10 ml PO Q6H PRN PRN Reason: COUGH Last Admin: 04/28/19 16:54 Dose: 10 ml Piperacillin Sod/Tazobactam (Sod 2.25 gm/ Dextrose) 50 mls @ 100 mls/hr IVPB Q8H-IV [facility]; Protocol Last Admin: 05/06/19 01:45 Dose: 100 mls/hr Insulin Aspart (Novolog Vial Sliding Scale -) 1 vial SQ BIDAC [facility]; Protocol Last Admin: 05/06/19 06:00 Dose: Not Given Latanoprost (Xalatan 0.005% Eye Drops -) 1 drop OU HS [facility] Last Admin: 05/05/19 21:50 Dose: 1 drop Lisinopril (Prinivil) 5 mg PO DAILY [facility] Last Admin: 05/06/19 09:21 Dose: 5 mg Montelukast Sodium (Singulair -) 10 mg PO HS [facility] Last Admin: 05/05/19 21:50 Dose: 10 mg Polyethylene Glycol (Miralax (For Daily Use) -) 17 gm PO DAILY [facility] Last Admin: 05/06/19 09:22 Dose: Not Given Prednisone (Deltasone -) 20 mg PO DAILY [facility] Last Admin: 05/06/19 09:21 Dose: 20 mg Gen: NAD at rest Heart: RRR Lung: distant breath sounds Abd: soft, nontender Ext: no edema Laboratory Results - last 24 hr 05/05/19 05/06/19 05/06/19 17:18 05:48 06:20 WBC 15.0 H RBC 5.73 H Hgb 15.9 Hct 49.2 H MCV 85.9 MCH 27.8 MCHC 32.4 RDW 14.8 Plt Count 325 MPV 7.2 L Absolute Neuts (auto) 12.4 H Neutrophils % 82.7 Lymphocytes % 9.2 D Monocytes % 6.9 Eosinophils % 1.0 D Basophils % 0.2 Nucleated RBC % 0 Sodium Potassium Chloride Carbon Dioxide Anion Gap BUN Creatinine Est GFR (CKD-EPI)AfAm Est GFR (CKD-EPI)NonAf POC Glucometer 216 92 Random Glucose Calcium Total Bilirubin AST ALT Alkaline Phosphatase Total Protein Albumin 05/06/19 06:20 WBC RBC Hgb Hct MCV MCH MCHC RDW Plt Count MPV Absolute Neuts (auto) Neutrophils % Lymphocytes % Monocytes % Eosinophils % Basophils % Nucleated RBC % Sodium 136 Potassium 4.5 Chloride 97 L Carbon Dioxide 24 Anion Gap 15 BUN 21.0 H Creatinine 0.7 Est GFR (CKD-EPI)AfAm 100.44 Est GFR (CKD-EPI)NonAf 86.66 POC Glucometer Random Glucose 83 Calcium 9.6 Total Bilirubin 1.4 H AST 36 ALT 46 Alkaline Phosphatase 79 Total Protein 6.0 L Albumin 3.0 L A/P Acute Kidney Injury Acute COPD Exacerbation LV Diastolic Dysfunction Lactic Acidosis Prostate Ca h/o AAA - ABX per ID - Prednisone - inhaled bronchodilators - O2 to keep Spo2 >90% - DVT prophylaxis - There is Pulmonary contraindication for DC planning once changed to PO ABX Dr Dominguez
--- NOTE | 2019-05-06 12:47 | PN ---
Progress Note, Physician Chief Complaint: in bed NAD less cough pt pulled out his IV - will change to po ATB walked with walker and PT - Current Medication List Current Medications: Active Medications Acetaminophen (Tylenol -) 650 mg PO TID PRN PRN Reason: FEVER Albuterol Sulfate (Ventolin 0.083% Nebulizer Soln -) 1 amp NEB RQ4H [facility] Last Admin: 05/06/19 11:17 Dose: 1 amp Artificial Tears (Artificial Tears) 1 drop OU QID [facility] Last Admin: 05/06/19 09:21 Dose: 1 drop Aspirin (Asa -) 81 mg PO DAILY [facility] Last Admin: 05/06/19 09:21 Dose: 81 mg Atorvastatin Calcium (Lipitor -) 40 mg PO HS [facility] Last Admin: 05/05/19 21:50 Dose: 40 mg Budesonide/Formoterol Fumarate (Symbicort 160/4.5mcg -) 1 puff IH BID [facility] Last Admin: 05/06/19 09:22 Dose: 1 puff Carvedilol (Coreg -) 6.25 mg PO BID [facility] Last Admin: 05/06/19 09:21 Dose: 6.25 mg Clopidogrel Bisulfate (Plavix -) 75 mg PO DAILY [facility] Last Admin: 05/06/19 09:21 Dose: 75 mg Donepezil HCl (Aricept -) 5 mg PO DAILY [facility] Last Admin: 05/06/19 09:21 Dose: 5 mg Famotidine (Pepcid -) 20 mg PO DAILY [facility] Last Admin: 05/06/19 09:21 Dose: 20 mg Guaifenesin (Robitussin -) 10 ml PO Q6H PRN PRN Reason: COUGH Last Admin: 04/28/19 16:54 Dose: 10 ml Piperacillin Sod/Tazobactam (Sod 2.25 gm/ Dextrose) 50 mls @ 100 mls/hr IVPB Q8H-IV [facility]; Protocol Last Admin: 05/06/19 01:45 Dose: 100 mls/hr Insulin Aspart (Novolog Vial Sliding Scale -) 1 vial SQ BIDAC [facility]; Protocol Last Admin: 05/06/19 06:00 Dose: Not Given Latanoprost (Xalatan 0.005% Eye Drops -) 1 drop OU HS [facility] Last Admin: 05/05/19 21:50 Dose: 1 drop Lisinopril (Prinivil) 5 mg PO DAILY [facility] Last Admin: 05/06/19 09:21 Dose: 5 mg Montelukast Sodium (Singulair -) 10 mg PO HS [facility] Last Admin: 05/05/19 21:50 Dose: 10 mg Polyethylene Glycol (Miralax (For Daily Use) -) 17 gm PO DAILY [facility] Last Admin: 05/06/19 09:22 Dose: Not Given Prednisone (Deltasone -) 20 mg PO DAILY [facility] Last Admin: 05/06/19 09:21 Dose: 20 mg - Objective Vital Signs: Vital Signs Temperature 97.8 F 05/06/19 07:52 Pulse Rate 79 05/06/19 10:00 Respiratory Rate 20 05/06/19 10:00 Blood Pressure 158/92 05/06/19 10:00 O2 Sat by Pulse Oximetry (%) 100 05/06/19 09:00 Constitutional: Yes: No Distress, Calm Eyes: Yes: Conjunctiva Clear HENT: Yes: Atraumatic Neck: Yes: Supple Cardiovascular: Yes: Regular Rate and Rhythm Respiratory: Yes: CTA Bilaterally Gastrointestinal: Yes: Soft. No: Tenderness Genitourinary: No: Hematuria Musculoskeletal: No: Joint Stiffness, Joint Swelling Extremities: No: Cold, Cool, Cyanosis Edema: No Integumentary: No: Pressure Ulcer Neurological: Yes: Alert ...Motor Strength: WNL Psychiatric: Yes: Alert. No: Agitated, Suicidal Ideation Labs: CBC, BMP 05/06/19 06:20 05/06/19 06:20 - ....Imaging Other: Report Reviewed Assessment/Plan 84 y/o man with hx CHF, prior CVA, HTN, HLD, COPD, dementia admitted with pneumonia and ARF/CRF dehydration po ATB po steroids cardio, pulm, ID and renal f/u f/u labs falls decubs aspiration PFX [facility] PT rehab d/w pt and staff DC planning
[2019-05-06] MEDS: AMOX TR/POT CLAV 875MG/125MG TABLETS (FP) PO SCH (19:56)
[2019-05-06] MEDS: LATANOPROST 0.005% OPHTH SOLN 2.5ML BOTTLE OU SCH (22:32)
[2019-05-06] MEDS: ATORVASTATIN CA 40 MG TABLET (FP) PO SCH (22:32)
[2019-05-06] MEDS: MONTELUKAST NA 10 MG TABLET PO SCH (22:32)
[2019-05-07] MEDS: ALBUTEROL SO4 0.083% IH SOL 2.5 MG/3 ML VIAL.NEB. NEB SCH ×6 (00:48→20:17)
[2019-05-07 07:31] LABS: BASO % 0.2 % (0-2.0); EOS % 1.2 % (0-4.5); HEMATOCRIT 47.4 % (35.4-49); HEMOGLOBIN 15.4 GM/dL (11.7-16.9); LYMPH % 7.7 % (8-40); MCH 27.6 pg (25.7-33.7); MCHC 32.4 g/dl (32.0-35.9); MEAN PLT VOLUME 7.3 fl (7.5-11.1); MONO % 6.2 % (3.8-10.2); NEUT % 84.7 % (42.8-82.8); PLATELET COUNT 324 K/MM3 (134-434); RBC 5.58 M/mm3 (4.00-5.60); WHITE BLOOD COUNT 13.1 K/mm3 (4.0-10.0)
[2019-05-07 07:57] LABS: BILIRUBIN,TOTAL 1.2 mg/dL (0.2-1); BLOOD UREA NITROGEN 18.3 mg/dL (7-18); CALCIUM 9.5 mg/dL (8.5-10.1); CREATININE 0.7 mg/dL (0.55-1.3); POTASSIUM 4.4 mmol/L (3.5-5.1); TOT PROT 5.9 g/dl (6.4-8.2)
[2019-05-07] MEDS: CLOPIDOGREL BISULFATE 75 MG TABLET (FP) PO SCH (09:13)
[2019-05-07] MEDS: AMOX TR/POT CLAV 875MG/125MG TABLETS (FP) PO SCH ×2 (09:13→16:42)
[2019-05-07] MEDS: CARVEDILOL 6.25 MG TABLET (FP) PO SCH ×2 (09:15→21:46)
[2019-05-07] MEDS: DONEPEZIL HCL 5 MG TABLET (FP) PO SCH (09:15)
[2019-05-07] MEDS: FAMOTIDINE 20 MG TABLET PO SCH (09:15)
[2019-05-07] MEDS: LISINOPRIL 5 MG TABLET (FP) PO SCH (09:15)
[2019-05-07] MEDS: predniSONE 10 MG TABLET (UD) PO SCH (09:15)
[2019-05-07] MEDS: ARTIFICIAL TEARS (POLYVINYL ALCOHOL) OPTH DROPS OU SCH ×4 (09:15→21:45)
[2019-05-07] MEDS: BUDESONIDE/FORMETEROL FUMARATE 160/4.5 mcg INHALER IH SCH ×2 (09:15→21:46)
[2019-05-07] MEDS: POLYETHYLENE GLYCOL 3350 119 GM BTL PO SCH (09:15)
[2019-05-07] MEDS: ASPIRIN 81 MG CHEWABLE TABLETS PO SCH (09:16)
--- NOTE | 2019-05-07 09:37 | PN ---
Progress Note, Physician Chief Complaint: in bed NAD feeling better no cough CP SOB afebrile; wants to go home - Current Medication List Current Medications: Active Medications Acetaminophen (Tylenol -) 650 mg PO TID PRN PRN Reason: FEVER Albuterol Sulfate (Ventolin 0.083% Nebulizer Soln -) 1 amp NEB RQ4H [facility] Last Admin: 05/07/19 07:40 Dose: 1 amp Amoxicillin/Clavulanate Potassium (Augmentin - 875mg Tablet) 1 tab PO BID@0800, 1730 [facility] Last Admin: 05/07/19 09:13 Dose: 1 tab Artificial Tears (Artificial Tears) 1 drop OU QID [facility] Last Admin: 05/07/19 09:15 Dose: 1 drop Aspirin (Asa -) 81 mg PO DAILY [facility] Last Admin: 05/07/19 09:16 Dose: 81 mg Atorvastatin Calcium (Lipitor -) 40 mg PO HS [facility] Last Admin: 05/06/19 22:32 Dose: 40 mg Budesonide/Formoterol Fumarate (Symbicort 160/4.5mcg -) 1 puff IH BID [facility] Last Admin: 05/07/19 09:15 Dose: 1 puff Carvedilol (Coreg -) 6.25 mg PO BID [facility] Last Admin: 05/07/19 09:15 Dose: 6.25 mg Clopidogrel Bisulfate (Plavix -) 75 mg PO DAILY [facility] Last Admin: 05/07/19 09:13 Dose: 75 mg Donepezil HCl (Aricept -) 5 mg PO DAILY [facility] Last Admin: 05/07/19 09:15 Dose: 5 mg Famotidine (Pepcid -) 20 mg PO DAILY [facility] Last Admin: 05/07/19 09:15 Dose: 20 mg Guaifenesin (Robitussin -) 10 ml PO Q6H PRN PRN Reason: COUGH Last Admin: 04/28/19 16:54 Dose: 10 ml Insulin Aspart (Novolog Vial Sliding Scale -) 1 vial SQ BIDAC [facility]; Protocol Last Admin: 05/06/19 17:08 Dose: 2 units Latanoprost (Xalatan 0.005% Eye Drops -) 1 drop OU HS [facility] Last Admin: 05/06/19 22:32 Dose: 1 drop Lisinopril (Prinivil) 5 mg PO DAILY [facility] Last Admin: 05/07/19 09:15 Dose: 5 mg Montelukast Sodium (Singulair -) 10 mg PO HS [facility] Last Admin: 05/06/19 22:32 Dose: 10 mg Polyethylene Glycol (Miralax (For Daily Use) -) 17 gm PO DAILY [facility] Last Admin: 05/07/19 09:15 Dose: Not Given Prednisone (Deltasone -) 10 mg PO DAILY [facility] Last Admin: 05/07/19 09:15 Dose: 10 mg - Objective Vital Signs: Vital Signs Temperature 97.4 F L 05/07/19 05:20 Pulse Rate 61 05/07/19 05:20 Respiratory Rate 20 05/07/19 05:20 Blood Pressure 158/80 05/07/19 05:20 O2 Sat by Pulse Oximetry (%) 100 05/06/19 09:00 Constitutional: Yes: No Distress, Calm Eyes: Yes: Conjunctiva Clear HENT: Yes: Atraumatic Neck: Yes: Supple Cardiovascular: Yes: Regular Rate and Rhythm Respiratory: Yes: CTA Bilaterally Gastrointestinal: Yes: Soft. No: Tenderness Genitourinary: No: Hematuria Musculoskeletal: No: Joint Stiffness, Joint Swelling Extremities: No: Cold, Cool Edema: No Integumentary: No: Rash, Venous Stasis Changes Neurological: Yes: Alert ...Motor Strength: WNL Psychiatric: Yes: Alert. No: Agitated, Suicidal Ideation Labs: CBC, BMP 05/07/19 06:30 05/07/19 06:30 - ....Imaging Other: Report Reviewed Assessment/Plan 84 y/o man with hx CHF, prior CVA, HTN, HLD, COPD, dementia admitted with pneumonia and ARF/CRF dehydration po ATB po steroids, improved cardio, pulm, ID and renal f/u taper steroids; WBC going down; falls decubs aspiration PFX [facility] PT rehab d/w pt and staff DC planning - I called pt's left message to call us
--- NOTE | 2019-05-07 10:24 | PN ---
Progress Note (short form) - Note Progress Note: Resting in NAD on 2 L NC O2. Reports breathing is overall better. Less cough. No fevers. No acute events overnight. Intake & Output 05/04/19 05/05/19 05/06/19 05/07/19 23:59 23:59 23:59 23:59 Intake Total 1260 1170 1400 Output Total 600 300 Balance 451 308 4895 Last Vital Signs Temp Pulse Resp BP Pulse Ox 97.9 F 78 20 162/80 100 05/07/19 09:00 05/07/19 09:00 05/07/19 09:00 05/07/19 09:00 05/07/19 09:00 Active Medications Acetaminophen (Tylenol -) 650 mg PO TID PRN PRN Reason: FEVER Albuterol Sulfate (Ventolin 0.083% Nebulizer Soln -) 1 amp NEB RQ4H [facility] Last Admin: 05/07/19 07:40 Dose: 1 amp Amoxicillin/Clavulanate Potassium (Augmentin - 875mg Tablet) 1 tab PO BID@0800, 1730 [facility] Last Admin: 05/07/19 09:13 Dose: 1 tab Artificial Tears (Artificial Tears) 1 drop OU QID [facility] Last Admin: 05/07/19 09:15 Dose: 1 drop Aspirin (Asa -) 81 mg PO DAILY [facility] Last Admin: 05/07/19 09:16 Dose: 81 mg Atorvastatin Calcium (Lipitor -) 40 mg PO HS [facility] Last Admin: 05/06/19 22:32 Dose: 40 mg Budesonide/Formoterol Fumarate (Symbicort 160/4.5mcg -) 1 puff IH BID [facility] Last Admin: 05/07/19 09:15 Dose: 1 puff Carvedilol (Coreg -) 6.25 mg PO BID [facility] Last Admin: 05/07/19 09:15 Dose: 6.25 mg Clopidogrel Bisulfate (Plavix -) 75 mg PO DAILY [facility] Last Admin: 05/07/19 09:13 Dose: 75 mg Donepezil HCl (Aricept -) 5 mg PO DAILY [facility] Last Admin: 05/07/19 09:15 Dose: 5 mg Famotidine (Pepcid -) 20 mg PO DAILY [facility] Last Admin: 05/07/19 09:15 Dose: 20 mg Guaifenesin (Robitussin -) 10 ml PO Q6H PRN PRN Reason: COUGH Last Admin: 04/28/19 16:54 Dose: 10 ml Insulin Aspart (Novolog Vial Sliding Scale -) 1 vial SQ BIDAC [facility]; Protocol Last Admin: 05/06/19 17:08 Dose: 2 units Latanoprost (Xalatan 0.005% Eye Drops -) 1 drop OU HS [facility] Last Admin: 05/06/19 22:32 Dose: 1 drop Lisinopril (Prinivil) 5 mg PO DAILY [facility] Last Admin: 05/07/19 09:15 Dose: 5 mg Montelukast Sodium (Singulair -) 10 mg PO HS [facility] Last Admin: 05/06/19 22:32 Dose: 10 mg Polyethylene Glycol (Miralax (For Daily Use) -) 17 gm PO DAILY [facility] Last Admin: 05/07/19 09:15 Dose: Not Given Prednisone (Deltasone -) 10 mg PO DAILY [facility] Last Admin: 05/07/19 09:15 Dose: 10 mg Gen: NAD at rest Heart: RRR Lung: distant breath sounds Abd: soft, nontender Ext: no edema Laboratory Results - last 24 hr 05/06/19 05/06/19 05/07/19 17:06 20:55 06:20 WBC RBC Hgb Hct MCV MCH MCHC RDW Plt Count MPV Absolute Neuts (auto) Neutrophils % Lymphocytes % Monocytes % Eosinophils % Basophils % Nucleated RBC % Sodium Potassium Chloride Carbon Dioxide Anion Gap BUN Creatinine Est GFR (CKD-EPI)AfAm Est GFR (CKD-EPI)NonAf POC Glucometer 193 258 87 Random Glucose Calcium Total Bilirubin AST ALT Alkaline Phosphatase Total Protein Albumin 05/07/19 05/07/19 06:30 06:30 WBC 13.1 H RBC 5.58 Hgb 15.4 Hct 47.4 MCV 85.0 MCH 27.6 MCHC 32.4 RDW 15.0 Plt Count 324 MPV 7.3 L Absolute Neuts (auto) 11.1 H Neutrophils % 84.7 H Lymphocytes % 7.7 L Monocytes % 6.2 Eosinophils % 1.2 Basophils % 0.2 Nucleated RBC % 0 Sodium 136 Potassium 4.4 Chloride 96 L Carbon Dioxide 36 H Anion Gap 4 L BUN 18.3 H Creatinine 0.7 Est GFR (CKD-EPI)AfAm 100.44 Est GFR (CKD-EPI)NonAf 86.66 POC Glucometer Random Glucose 79 Calcium 9.5 Total Bilirubin 1.2 H AST 35 ALT 49 Alkaline Phosphatase 82 Total Protein 5.9 L Albumin 3.0 L A/P Acute Kidney Injury Acute COPD Exacerbation LV Diastolic Dysfunction Lactic Acidosis Prostate Ca h/o AAA - PO ABX - Prednisone - inhaled bronchodilators - O2 to keep Spo2 >90% - DVT prophylaxis - There is Pulmonary contraindication for DC planning Dr Dominguez
[2019-05-07] MEDS: INSULIN SLIDING SCALE (NOVOLOG) 1 VIAL SQ SCH ×2 (16:43→21:45)
[2019-05-07] MEDS: ATORVASTATIN CA 40 MG TABLET (FP) PO SCH (21:46)
[2019-05-07] MEDS: MONTELUKAST NA 10 MG TABLET PO SCH (21:46)
[2019-05-07] MEDS: LATANOPROST 0.005% OPHTH SOLN 2.5ML BOTTLE OU SCH (21:47)
[2019-05-08] MEDS: ALBUTEROL SO4 0.083% IH SOL 2.5 MG/3 ML VIAL.NEB. NEB SCH ×4 (00:05→11:35)
--- NOTE | 2019-05-08 06:23 | DS ---
Physical Examination Vital Signs: Vital Signs Temperature 97.8 F 05/07/19 19:00 Pulse Rate 62 05/07/19 19:00 Respiratory Rate 19 05/07/19 21:00 Blood Pressure 158/79 05/07/19 19:00 O2 Sat by Pulse Oximetry (%) 100 05/07/19 21:00 Findings/Remarks: in bed NAD VSS afebrile no c/o wants to go home d/w pt and Rachael he will go home with f/u outpt scripts done as needed Constitutional: Yes: No Distress, Calm Eyes: Yes: Conjunctiva Clear HENT: Yes: Atraumatic Neck: Yes: Supple Cardiovascular: Yes: Regular Rate and Rhythm Respiratory: Yes: CTA Bilaterally Gastrointestinal: Yes: Soft Renal/: No: Hematuria Musculoskeletal: No: Joint Stiffness, Joint Swelling Extremities: No: Cold, Cool, Cyanosis Edema: No Integumentary: No: Rash, Venous Stasis Changes Neurological: Yes: Alert ...Motor Strength: WNL Psychiatric: Yes: Alert. No: Agitated Labs: CBC, BMP 05/07/19 06:30 05/07/19 06:30 Discharge Summary Problems reviewed: Yes Reason For Visit: SEPSIS Current Active Problems SOLANGE (acute kidney injury) (Acute) Diabetes mellitus (Acute) Diarrhea (Acute) Hypotension (Acute) Memory loss (Acute) Pneumonia (Acute) Sepsis (Acute) Procedures: Principal: treated with IVF, steroids, antibiotics; Other Procedures: seen by pulmonary, renal, cardiology Hospital Course: improved with above; Plan of Treatment: taper po steroids; finished ATB course Condition: Improved - Instructions Diet, Activity, Other Instructions: f/u PCP and labs in 1-2 weeks f/u cardiology, neurology and pulmonary drs in 1-2 months f/u GI, and renal in 2-3 months PT rehab, VNS at home O2 NC continuous as ordered (has home); falls precautions; take meds as prescribed; RTER if worse or recurrent c/o Referrals: Gini Delcid [Primary Care Provider] - Jignesh Singletary MD [Staff Physician] - Jason Ambrosio DO [Staff Physician] - Yemi Sewell MD., MD [Staff Physician] - Gomez Vela MD [Staff Physician] - Lucas Fontaine MD [Staff Physician] - Eric Rader MD [Staff Physician] - Disposition: VNS/HOME HEALTH CARE - Home Medications Comprehensive Discharge Medication List: Ambulatory Orders Aspirin [ASA -] 81 mg PO DAILY #90 tab 06/26/17 Budesonide/Formeterol Fumarate [SYMBICORT 160/4.5mcg -] 1 puff IH BID #1 inhaler 06/26/17 Montelukast Na [Singulair -] 10 mg PO HS #30 tablet 06/26/17 Furosemide [Lasix -] 40 mg PO BID tablet 10/10/18 Atorvastatin Ca [Lipitor] 40 mg PO HS 01/21/19 Carvedilol [Coreg -] 6.25 mg PO DAILY 01/21/19 Clopidogrel Bisulfate [Plavix] 75 mg PO DAILY 01/21/19 Amlodipine Besylate 10 mg PO DAILY 04/17/19 Benzonatate 04/17/19 Doxazosin Mesylate [Cardura -] 2 mg PO DAILY 04/17/19 Polyvinyl Alcohol [Artificial Tears] 1 drop OU QID 04/19/19 Travoprost [Travatan Z] 1 drop OU DAILY 04/19/19 Acetaminophen [Tylenol .Regular Strength -] 650 mg PO TID PRN tablet 04/25/19 Carvedilol [Coreg -] 6.25 mg PO BID #180 tablet 04/25/19 Cefuroxime Axetil [Ceftin -] 500 mg PO BID #10 tablet 04/25/19 Docusate Sodium [Colace -] 100 mg PO DAILY capsule 04/25/19 Donepezil HCl [Aricept -] 5 mg PO DAILY tablet 04/25/19 Famotidine [Pepcid -] 20 mg PO DAILY tablet 04/25/19 Guaifenesin [Robitussin -] 10 ml PO Q6H PRN cup 04/25/19 Lisinopril [Prinivil] 5 mg PO DAILY #90 tablet 04/25/19 Polyethylene Glycol 3350 [Miralax 119 gm Btl -] 17 gm PO DAILY bottle 04/25/19 predniSONE [Deltasone -] 10 mg PO DAILY #20 tablet 04/25/19
[2019-05-08] MEDS: INSULIN SLIDING SCALE (NOVOLOG) 1 VIAL SQ SCH (06:57)
[2019-05-08] MEDS: AMOX TR/POT CLAV 875MG/125MG TABLETS (FP) PO SCH (08:46)
[2019-05-08] MEDS: CARVEDILOL 6.25 MG TABLET (FP) PO SCH (09:25)
[2019-05-08] MEDS: ASPIRIN 81 MG CHEWABLE TABLETS PO SCH (09:25)
[2019-05-08] MEDS: LISINOPRIL 5 MG TABLET (FP) PO SCH (09:25)
[2019-05-08] MEDS: CLOPIDOGREL BISULFATE 75 MG TABLET (FP) PO SCH (09:25)
[2019-05-08] MEDS: FAMOTIDINE 20 MG TABLET PO SCH (09:26)
[2019-05-08] MEDS: POLYETHYLENE GLYCOL 3350 119 GM BTL PO SCH (09:26)
[2019-05-08] MEDS: DONEPEZIL HCL 5 MG TABLET (FP) PO SCH (09:26)
[2019-05-08] MEDS: predniSONE 10 MG TABLET (UD) PO SCH (09:26)
[2019-05-08] MEDS: BUDESONIDE/FORMETEROL FUMARATE 160/4.5 mcg INHALER IH SCH (09:27)
[2019-05-08] MEDS: ARTIFICIAL TEARS (POLYVINYL ALCOHOL) OPTH DROPS OU SCH ×2 (09:27→13:59)
[2019-05-08] MEDS ORDERED: LISINOPRIL 5 MG TABLET (FP) PO ONE (11:06)
--- NOTE | 2019-05-08 11:47 | PN ---
Progress Note (short form) - Note Progress Note: PULMONARY States breathing better. Denies cough or wheezing. Vital Signs Period Temp Pulse Resp BP Sys/Hernandez Pulse Ox Last 24 Hr 97.5 F-97.9 F 62-74 19-22 148-183/68-97 100 Gen: NAD at rest Heart: RRR Lung: distant breath sounds Abd: soft, nontender Ext: no edema CBC, BMP 05/07/19 06:30 05/07/19 06:30 Active Medications Acetaminophen (Tylenol -) 650 mg PO TID PRN PRN Reason: FEVER Albuterol Sulfate (Ventolin 0.083% Nebulizer Soln -) 1 amp NEB RQ4H [facility] Last Admin: 05/08/19 11:35 Dose: 1 amp Amoxicillin/Clavulanate Potassium (Augmentin - 875mg Tablet) 1 tab PO BID@0800, 1730 [facility] Last Admin: 05/08/19 08:46 Dose: 1 tab Artificial Tears (Artificial Tears) 1 drop OU QID [facility] Last Admin: 05/08/19 09:27 Dose: 1 drop Aspirin (Asa -) 81 mg PO DAILY [facility] Last Admin: 05/08/19 09:25 Dose: 81 mg Atorvastatin Calcium (Lipitor -) 40 mg PO HS [facility] Last Admin: 05/07/19 21:46 Dose: 40 mg Budesonide/Formoterol Fumarate (Symbicort 160/4.5mcg -) 1 puff IH BID [facility] Last Admin: 05/08/19 09:27 Dose: 1 puff Carvedilol (Coreg -) 6.25 mg PO BID [facility] Last Admin: 05/08/19 09:25 Dose: 6.25 mg Clopidogrel Bisulfate (Plavix -) 75 mg PO DAILY [facility] Last Admin: 05/08/19 09:25 Dose: 75 mg Donepezil HCl (Aricept -) 5 mg PO DAILY [facility] Last Admin: 05/08/19 09:26 Dose: 5 mg Famotidine (Pepcid -) 20 mg PO DAILY [facility] Last Admin: 05/08/19 09:26 Dose: 20 mg Guaifenesin (Robitussin -) 10 ml PO Q6H PRN PRN Reason: COUGH Last Admin: 04/28/19 16:54 Dose: 10 ml Insulin Aspart ([facility] -) [facility] Protocol Last Admin: 05/08/19 06:57 Dose: Not Given Latanoprost (Xalatan 0.005% Eye Drops -) 1 drop OU HS [facility] Last Admin: 05/07/19 21:47 Dose: 1 drop Lisinopril (Prinivil) 10 mg PO DAILY [facility] Montelukast Sodium (Singulair -) 10 mg PO HS [facility] Last Admin: 05/07/19 21:46 Dose: 10 mg Polyethylene Glycol (Miralax (For Daily Use) -) 17 gm PO DAILY [facility] Last Admin: 05/08/19 09:26 Dose: Not Given Prednisone (Deltasone -) 10 mg PO DAILY [facility] Last Admin: 05/08/19 09:26 Dose: 10 mg A/P Acute Kidney Injury Acute COPD Exacerbation LV Diastolic Dysfunction Lactic Acidosis Prostate Ca h/o AAA - on empiric antibiotics - f/u cultures - prednisone taper - inhaled bronchodilators - O2 to keep Spo2 >90% - DVT prophylaxis
[2019-05-08 14:14] VITALS: BP 154/71; PULSE 107; TEMP 97.8
[2019-05-09] MEDS ORDERED: LISINOPRIL 5 MG TABLET (FP) PO SCH (10:00)
--- NOTE | 2019-05-09 15:04 | PN ---
Progress Note (short form) - Note Progress Note: pt's Rachael paged me through answering service that he was doing well at home , walked with the walker but this afternoon he fell on his knees and he can not get up so she does not know what to do; she said VNS / PT rehab supposed to come this afternoon to their house; I advised her that if he can get up from the floor (holding the bed or walker) and if he is not in pain or SOB it is OK to wait to be assessed by PT VNS coming soon and have VNS call me, but if he is not able to get up or if he is in pain or any new c/o or SOB to call 911 to bring him back to hospital ER; we offered the patient and his yesterday to DC him to SNF for rehab instead of home but they both refused SNF at that time.
== END 2019-05-08 15:02 | disposition home health service (06) | DRG 871 ==
LOC: JER 21:59 → JERBED 04-28 00:36 → J6S 04-28 04:51
PROVIDERS: ADMIT Internal Medicine; ATTEND Internal Medicine
DX: A41.9 Sepsis, unspecified organism (principal); J69.0 Pneumonitis due to inhalation of food and vomit; N17.9 Acute kidney failure, unspecified; I50.32 Chronic diastolic (congestive) heart failure; G81.93 Hemiplegia, unspecified affecting right nondominant side; E87.2 Acidosis; J44.1 Chronic obstructive pulmonary disease with (acute) exacerbation; R64 Cachexia; J44.9 Chronic obstructive pulmonary disease, unspecified; F03.90 Unspecified dementia, unspecified severity, without behavioral disturbance, psychotic disturbance, mood disturbance, and anxiety; I95.9 Hypotension, unspecified; Z68.20 Body mass index [BMI] 20.0-20.9, adult; D72.829 Elevated white blood cell count, unspecified; E11.9 Type 2 diabetes mellitus without complications; E78.5 Hyperlipidemia, unspecified; E86.0 Dehydration
CPT/HCPCS: 36415; 36600; 71045-TC-FY; 76775-TC; 76856-TC; 80053; 81003; 82375; 82565; 82570; 82803; 82962; 83050; 83605; 83735; 83880; 84100; 84156; 84300; 84439; 84484; 84540; 85025; 85027; 87040; 87086; 87205; 87804; 87899; 93005; 93010; 94640; 97116-GP; 97161-GP; 99285-25; J7030

== ENCOUNTER 2020-03-06 14:44 | Inpatient (IN) | payer OTHER, BC ==
[2020-03-06] MEDS ORDERED: methylPREDNISolone NA SUCC 125 MG/2 ML VIAL IVPUSH ONE (15:46)
[2020-03-06] MEDS ORDERED: ALBUTEROL SO4 HFA INHALER IH ONE ×4 (15:46→20:06)
[2020-03-06] MEDS ORDERED: methylPREDNISolone NA SUCC 125 MG/2 ML VIAL ONE (16:24)
[2020-03-06 16:27] LABS: BASO % 0.7 % (0-2.0); EOS % 6.4 % (0-4.5); HEMATOCRIT 44.3 % (35.4-49); HEMOGLOBIN 14.2 GM/dL (11.7-16.9); LYMPH % 14.4 % (8-40); MCH 27.9 pg (25.7-33.7); MCHC 32.1 g/dl (32.0-35.9); MEAN CELL VOLUME 86.8 fl (80-96); MONO % 9.7 % (3.8-10.2); NEUT % 68.8 % (42.8-82.8); PLATELET COUNT 286 K/MM3 (134-434); RDW 13.9 % (11.9-15.9); WHITE BLOOD COUNT 7.8 K/mm3 (4.0-10.0)
[2020-03-06 16:36] LABS: INR 1.01 (0.83-1.09); PROTHROMBIN TIME (PATIENT) 12.4 SEC (9.7-13.0)
[2020-03-06 16:38] LABS: ACTIVATED PTT 24.2 SECONDS (25.2-36.5)
[2020-03-06] MEDS ORDERED: FUROSEMIDE 40 MG/4 ML INJECTABLE VIAL IVPUSH ONE (16:47)
[2020-03-06] MEDS ORDERED: FUROSEMIDE 40 MG/4 ML INJECTABLE VIAL ONE (17:08)
[2020-03-06 17:09] LABS: CHLORIDE 100 mmol/L (98-107); POTASSIUM 4.1 mmol/L (3.5-5.1); SODIUM 137 mmol/L (136-145)
[2020-03-06 17:12] LABS: CALCIUM 9.8 mg/dL (8.5-10.1)
[2020-03-06 17:13] LABS: ALBUMIN 3.7 g/dl (3.4-5.0); ANION GAP 6 MMOL/L (8-16); BLOOD UREA NITROGEN 12.8 mg/dL (7-18); CO2 31 mmol/L (21-32); GLUCOSE,RANDOM 129 mg/dL (74-106); MAGNESIUM 2.1 mg/dL (1.8-2.4)
[2020-03-06 17:16] LABS: CREATININE 0.8 mg/dL (0.55-1.3); SGOT/AST 25 U/L (15-37); SGPT/ALT 25 U/L (13-61)
[2020-03-06 17:18] LABS: BILIRUBIN,TOTAL 0.9 mg/dL (0.2-1)
[2020-03-06 17:19] LABS: ALK PHOS 122 U/L (45-117)
[2020-03-06] MEDS ORDERED: AZITHROMYCIN IVPB 500 MG in DEXTROSE 5%-WATER - 250 ML IVPB ONE (18:42)
[2020-03-06] MEDS ORDERED: CEFTRIAXONE 1,000 MG in DEXTROSE 5%-WATER - 50 ML IVPB ONE (18:43)
[2020-03-06] MEDS ORDERED: CEFTRIAXONE 2 GM/100 ML BAG IVPB ONE (18:52)
[2020-03-06] MEDS ORDERED: AZITHROMYCIN IVPB 500 MG/250 ML BAG IVPB ONE (18:52)
[2020-03-06] MEDS ORDERED: ACETAMINOPHEN 325 MG TABLET (FP) PO PRN (22:45)
[2020-03-06] MEDS ORDERED: ALBUTEROL SO4 0.083% IH SOL 2.5 MG/3 ML VIAL.NEB. NEB PRN (22:45)
[2020-03-07] MEDS: methylPREDNISolone NA SUCC 40 MG/1 ML VIAL IVPUSH SCH ×3 (01:58→17:40)
[2020-03-07 08:13] LABS: BASO % 0.1 % (0-2.0); HEMATOCRIT 45.5 % (35.4-49); HEMOGLOBIN 14.7 GM/dL (11.7-16.9); LYMPH % 2.6 % (8-40); MCH 27.7 pg (25.7-33.7); MCHC 32.2 g/dl (32.0-35.9); MEAN PLT VOLUME 7.3 fl (7.5-11.1); MONO % 7.2 % (3.8-10.2); NEUT % 90.1 % (42.8-82.8); PLATELET COUNT 281 K/MM3 (134-434); RBC 5.29 M/mm3 (4.00-5.60); RDW 13.7 % (11.9-15.9); WHITE BLOOD COUNT 18.3 K/mm3 (4.0-10.0)
[2020-03-07 08:37] LABS: CHLORIDE 95 mmol/L (98-107); POTASSIUM 4.4 mmol/L (3.5-5.1); SODIUM 137 mmol/L (136-145)
[2020-03-07 08:40] LABS: ALBUMIN 3.7 g/dl (3.4-5.0); BLOOD UREA NITROGEN 15.3 mg/dL (7-18)
[2020-03-07 08:41] LABS: ANION GAP 9 MMOL/L (8-16); CALCIUM 9.8 mg/dL (8.5-10.1); CO2 32 mmol/L (21-32)
[2020-03-07 08:42] LABS: GLUCOSE,RANDOM 126 mg/dL (74-106)
[2020-03-07 08:43] LABS: SGPT/ALT 23 U/L (13-61)
[2020-03-07 08:44] LABS: CREATININE 0.9 mg/dL (0.55-1.3)
[2020-03-07 08:45] LABS: SGOT/AST 22 U/L (15-37); TOT PROT 7.1 g/dl (6.4-8.2)
[2020-03-07 08:46] LABS: ALK PHOS 92 U/L (45-117)
[2020-03-07 08:47] LABS: BILIRUBIN,TOTAL 1.3 mg/dL (0.2-1)
[2020-03-07 08:49] LABS: N-TERMINAL BNP 1236.8 pg/ml (5-450)
[2020-03-07] MEDS ORDERED: cefTRIAXone SODIUM 1 GM VIAL ONE (09:36)
[2020-03-07] MEDS ORDERED: DEXTROSE 5%-WATER - 50 ML IVPB ONE (09:37)
[2020-03-07 09:44] LABS: ANISOCYTOSIS 0; MACROCYTOSIS 0; PLATELET ESTIMATE NORMAL
[2020-03-07] MEDS: CEFTRIAXONE 1 GM in DEXTROSE 5%-WATER - 50 ML IVPB SCH (09:46)
[2020-03-07] MEDS: BUDESONIDE/FORMETEROL FUMARATE 160/4.5 mcg INHALER IH SCH ×2 (09:49→21:15)
[2020-03-07] MEDS: LISINOPRIL 10 MG TABLET PO SCH (09:49)
[2020-03-07] MEDS: HEPARIN NA (PORCINE) 5,000 UNITS/ML 1ML VIAL SQ SCH ×2 (09:49→21:14)
[2020-03-07] MEDS: ASPIRIN 81 MG CHEWABLE TABLETS PO SCH (09:50)
[2020-03-07] MEDS: CARVEDILOL 6.25 MG TABLET (FP) PO SCH ×2 (09:50→21:14)
[2020-03-07] MEDS: ARTIFICIAL TEARS (POLYVINYL ALCOHOL) OPTH DROPS OU SCH ×4 (09:50→21:16)
[2020-03-07] MEDS: FUROSEMIDE 20 MG TABLET (FP) PO SCH (09:50)
[2020-03-07] MEDS: amLODIPine BESYLATE 10 MG TABLET (FP) PO SCH (09:50)
[2020-03-07] MEDS: DOCUSATE SODIUM 100 MG CAPSULE (FP) PO SCH (09:50)
[2020-03-07] MEDS: FAMOTIDINE 20 MG TABLET PO SCH (09:50)
[2020-03-07] MEDS: CLOPIDOGREL BISULFATE 75 MG TABLET (FP) PO SCH (09:50)
[2020-03-07] MEDS ORDERED: AZITHROMYCIN IVPB 500 MG in DEXTROSE 5%-WATER - 250 ML IVPB SCH (10:00)
[2020-03-07] MEDS ORDERED: PATIENT'S OWN MEDICATION (NON-FORMULARY) (Travoprost [Travatan Z] 1 DROP) OU SCH (10:00)
[2020-03-07] MEDS: POLYETHYLENE GLYCOL 3350 119 GM BTL PO SCH (10:05)
[2020-03-07] MEDS: DOXAZOSIN MESYLATE 2 MG TABLET PO SCH (14:03)
[2020-03-07] MEDS: ALBUTEROL SO4 HFA INHALER IH SCH ×3 (14:04→21:16)
[2020-03-07] MEDS: DONEPEZIL HCL 5 MG TABLET (FP) PO SCH (21:14)
[2020-03-07] MEDS: ATORVASTATIN CA 40 MG TABLET (FP) PO SCH (21:14)
[2020-03-07] MEDS: MONTELUKAST NA 10 MG TABLET PO SCH (21:14)
[2020-03-07] MEDS: LATANOPROST 0.005% OPHTH SOLN 2.5ML BOTTLE OU SCH (21:15)
[2020-03-08] MEDS: methylPREDNISolone NA SUCC 40 MG/1 ML VIAL IVPUSH SCH ×3 (01:43→17:46)
[2020-03-08] MEDS: AZITHROMYCIN IVPB 500 MG/250 ML BAG IVPB SCH (09:50)
[2020-03-08] MEDS: DOXAZOSIN MESYLATE 2 MG TABLET PO SCH (09:50)
[2020-03-08] MEDS: BUDESONIDE/FORMETEROL FUMARATE 160/4.5 mcg INHALER IH SCH ×2 (09:51→22:49)
[2020-03-08] MEDS: ALBUTEROL SO4 HFA INHALER IH SCH ×4 (09:51→22:49)
[2020-03-08] MEDS: ARTIFICIAL TEARS (POLYVINYL ALCOHOL) OPTH DROPS OU SCH ×4 (09:51→22:51)
[2020-03-08] MEDS ORDERED: DEXTROSE 5%-WATER - 50 ML IVPB ONE (09:56)
[2020-03-08] MEDS ORDERED: cefTRIAXone SODIUM 1 GM VIAL ONE (09:56)
[2020-03-08] MEDS: CEFTRIAXONE 1 GM in DEXTROSE 5%-WATER - 50 ML IVPB SCH (09:59)
[2020-03-08] MEDS: LISINOPRIL 10 MG TABLET PO SCH (09:59)
[2020-03-08] MEDS: ASPIRIN 81 MG CHEWABLE TABLETS PO SCH (09:59)
[2020-03-08] MEDS: amLODIPine BESYLATE 10 MG TABLET (FP) PO SCH (09:59)
[2020-03-08] MEDS: FUROSEMIDE 20 MG TABLET (FP) PO SCH (09:59)
[2020-03-08] MEDS: POLYETHYLENE GLYCOL 3350 119 GM BTL PO SCH (09:59)
[2020-03-08] MEDS: CLOPIDOGREL BISULFATE 75 MG TABLET (FP) PO SCH (10:00)
[2020-03-08] MEDS: CARVEDILOL 6.25 MG TABLET (FP) PO SCH ×2 (10:00→22:49)
[2020-03-08] MEDS: DOCUSATE SODIUM 100 MG CAPSULE (FP) PO SCH (10:00)
[2020-03-08] MEDS: HEPARIN NA (PORCINE) 5,000 UNITS/ML 1ML VIAL SQ SCH ×2 (10:00→22:48)
[2020-03-08] MEDS: FAMOTIDINE 20 MG TABLET PO SCH (10:00)
[2020-03-08] MEDS: ATORVASTATIN CA 40 MG TABLET (FP) PO SCH (22:48)
[2020-03-08] MEDS: MONTELUKAST NA 10 MG TABLET PO SCH (22:49)
[2020-03-08] MEDS: LATANOPROST 0.005% OPHTH SOLN 2.5ML BOTTLE OU SCH (22:49)
[2020-03-08] MEDS: DONEPEZIL HCL 5 MG TABLET (FP) PO SCH (22:49)
[2020-03-09] MEDS: methylPREDNISolone NA SUCC 40 MG/1 ML VIAL IVPUSH SCH ×2 (06:59→10:38)
[2020-03-09] MEDS ORDERED: PT OWN MED DRAWER 7, Y5N ONE (09:35)
[2020-03-09] MEDS ORDERED: cefTRIAXone SODIUM 1 GM VIAL ONE (09:36)
[2020-03-09] MEDS ORDERED: DEXTROSE 5%-WATER - 50 ML IVPB ONE (09:36)
[2020-03-09] MEDS: LISINOPRIL 10 MG TABLET PO SCH (10:31)
[2020-03-09] MEDS: CARVEDILOL 6.25 MG TABLET (FP) PO SCH ×2 (10:31→22:58)
[2020-03-09] MEDS: amLODIPine BESYLATE 10 MG TABLET (FP) PO SCH (10:32)
[2020-03-09] MEDS: HEPARIN NA (PORCINE) 5,000 UNITS/ML 1ML VIAL SQ SCH ×2 (10:32→22:58)
[2020-03-09] MEDS: DOXAZOSIN MESYLATE 2 MG TABLET PO SCH (10:32)
[2020-03-09] MEDS: FAMOTIDINE 20 MG TABLET PO SCH (10:32)
[2020-03-09] MEDS: DOCUSATE SODIUM 100 MG CAPSULE (FP) PO SCH (10:32)
[2020-03-09] MEDS: FUROSEMIDE 20 MG TABLET (FP) PO SCH (10:32)
[2020-03-09] MEDS: ASPIRIN 81 MG CHEWABLE TABLETS PO SCH (10:32)
[2020-03-09] MEDS: CLOPIDOGREL BISULFATE 75 MG TABLET (FP) PO SCH (10:33)
[2020-03-09] MEDS: CEFTRIAXONE 1 GM in DEXTROSE 5%-WATER - 50 ML IVPB SCH (10:37)
[2020-03-09] MEDS: AZITHROMYCIN IVPB 500 MG/250 ML BAG IVPB SCH (10:38)
[2020-03-09] MEDS: ARTIFICIAL TEARS (POLYVINYL ALCOHOL) OPTH DROPS OU SCH ×4 (10:38→22:58)
[2020-03-09] MEDS: POLYETHYLENE GLYCOL 3350 119 GM BTL PO SCH (10:39)
[2020-03-09] MEDS: BUDESONIDE/FORMETEROL FUMARATE 160/4.5 mcg INHALER IH SCH ×2 (10:42→22:59)
[2020-03-09] MEDS: ALBUTEROL SO4 HFA INHALER IH SCH ×4 (10:42→23:01)
[2020-03-09] MEDS ORDERED: methylPREDNISolone NA SUCC 40 MG/1 ML VIAL IVPUSH SCH (12:30)
[2020-03-09] MEDS: MONTELUKAST NA 10 MG TABLET PO SCH (22:57)
[2020-03-09] MEDS: ATORVASTATIN CA 40 MG TABLET (FP) PO SCH (22:57)
[2020-03-09] MEDS: DONEPEZIL HCL 5 MG TABLET (FP) PO SCH (22:57)
[2020-03-09] MEDS: LATANOPROST 0.005% OPHTH SOLN 2.5ML BOTTLE OU SCH (23:00)
[2020-03-10] MEDS: LORazepam 2 MG/ML SDV VIAL IM PRN (00:05)
[2020-03-10] MEDS: methylPREDNISolone NA SUCC 40 MG/1 ML VIAL IVPUSH SCH ×5 (01:03→22:43)
[2020-03-10] MEDS: HEPARIN NA (PORCINE) 5,000 UNITS/ML 1ML VIAL SQ SCH ×3 (01:32→22:40)
[2020-03-10] MEDS: DONEPEZIL HCL 5 MG TABLET (FP) PO SCH ×2 (01:32→22:40)
[2020-03-10] MEDS: CARVEDILOL 6.25 MG TABLET (FP) PO SCH ×3 (01:32→22:39)
[2020-03-10] MEDS: ARTIFICIAL TEARS (POLYVINYL ALCOHOL) OPTH DROPS OU SCH ×6 (01:32→23:19)
[2020-03-10] MEDS: ATORVASTATIN CA 40 MG TABLET (FP) PO SCH ×2 (01:33→22:40)
[2020-03-10] MEDS: LATANOPROST 0.005% OPHTH SOLN 2.5ML BOTTLE OU SCH ×3 (01:33→23:19)
[2020-03-10] MEDS: MONTELUKAST NA 10 MG TABLET PO SCH ×2 (01:33→22:40)
[2020-03-10] MEDS: BUDESONIDE/FORMETEROL FUMARATE 160/4.5 mcg INHALER IH SCH ×3 (01:33→22:48)
[2020-03-10] MEDS ORDERED: DEXTROSE 5%-WATER - 50 ML IVPB ONE (10:21)
[2020-03-10] MEDS ORDERED: cefTRIAXone SODIUM 1 GM VIAL ONE (10:21)
[2020-03-10] MEDS: FAMOTIDINE 20 MG TABLET PO SCH (10:30)
[2020-03-10] MEDS: amLODIPine BESYLATE 10 MG TABLET (FP) PO SCH (10:30)
[2020-03-10] MEDS: FUROSEMIDE 20 MG TABLET (FP) PO SCH (10:30)
[2020-03-10] MEDS: DOCUSATE SODIUM 100 MG CAPSULE (FP) PO SCH (10:30)
[2020-03-10] MEDS: CLOPIDOGREL BISULFATE 75 MG TABLET (FP) PO SCH (10:30)
[2020-03-10] MEDS: LISINOPRIL 10 MG TABLET PO SCH (10:30)
[2020-03-10] MEDS: ASPIRIN 81 MG CHEWABLE TABLETS PO SCH (10:30)
[2020-03-10] MEDS: POLYETHYLENE GLYCOL 3350 119 GM BTL PO SCH (10:31)
[2020-03-10] MEDS: CEFTRIAXONE 1 GM in DEXTROSE 5%-WATER - 50 ML IVPB SCH (10:32)
[2020-03-10] MEDS: AZITHROMYCIN IVPB 500 MG/250 ML BAG IVPB SCH (10:32)
[2020-03-10] MEDS: DOXAZOSIN MESYLATE 2 MG TABLET PO SCH (10:34)
[2020-03-10] MEDS ORDERED: PT OWN MED DRAWER 7, Y5N ONE (10:34)
[2020-03-10] MEDS: ALBUTEROL SO4 HFA INHALER IH SCH ×4 (10:35→22:49)
[2020-03-11 08:53] LABS: POTASSIUM 4.1 mmol/L (3.5-5.1)
[2020-03-11 08:56] LABS: CALCIUM 9.8 mg/dL (8.5-10.1)
[2020-03-11 08:57] LABS: ALBUMIN 3.3 g/dl (3.4-5.0); BLOOD UREA NITROGEN 15.9 mg/dL (7-18)
[2020-03-11 09:00] LABS: CREATININE 0.6 mg/dL (0.55-1.3)
[2020-03-11] MEDS ORDERED: DEXTROSE 5%-WATER - 50 ML IVPB ONE (09:00)
[2020-03-11] MEDS ORDERED: cefTRIAXone SODIUM 1 GM VIAL ONE (09:00)
[2020-03-11 09:01] LABS: TOT PROT 6.6 g/dl (6.4-8.2)
[2020-03-11] MEDS: amLODIPine BESYLATE 10 MG TABLET (FP) PO SCH (09:05)
[2020-03-11] MEDS: DOXAZOSIN MESYLATE 2 MG TABLET PO SCH (09:05)
[2020-03-11] MEDS: CLOPIDOGREL BISULFATE 75 MG TABLET (FP) PO SCH (09:05)
[2020-03-11] MEDS: HEPARIN NA (PORCINE) 5,000 UNITS/ML 1ML VIAL SQ SCH ×2 (09:06→21:36)
[2020-03-11] MEDS: FUROSEMIDE 40 MG/4 ML INJECTABLE VIAL IVPUSH SCH (09:06)
[2020-03-11] MEDS: CARVEDILOL 6.25 MG TABLET (FP) PO SCH ×2 (09:06→21:35)
[2020-03-11] MEDS: ASPIRIN 81 MG CHEWABLE TABLETS PO SCH (09:06)
[2020-03-11] MEDS: DOCUSATE SODIUM 100 MG CAPSULE (FP) PO SCH (09:06)
[2020-03-11] MEDS: FAMOTIDINE 20 MG TABLET PO SCH (09:06)
[2020-03-11] MEDS: CEFTRIAXONE 1 GM in DEXTROSE 5%-WATER - 50 ML IVPB SCH (09:06)
[2020-03-11] MEDS: methylPREDNISolone NA SUCC 40 MG/1 ML VIAL IVPUSH SCH ×2 (09:06→21:37)
[2020-03-11 09:08] LABS: BASO % 0.3 % (0-2.0); HEMATOCRIT 47.2 % (35.4-49); HEMOGLOBIN 15.5 GM/dL (11.7-16.9); LYMPH % 6.4 % (8-40); MCH 28.1 pg (25.7-33.7); MCHC 32.8 g/dl (32.0-35.9); MEAN CELL VOLUME 85.8 fl (80-96); MEAN PLT VOLUME 7.8 fl (7.5-11.1); MONO % 5.6 % (3.8-10.2); NEUT % 87.7 % (42.8-82.8); PLATELET COUNT 270 K/MM3 (134-434); RDW 13.7 % (11.9-15.9); WHITE BLOOD COUNT 10.3 K/mm3 (4.0-10.0)
[2020-03-11] MEDS: BUDESONIDE/FORMETEROL FUMARATE 160/4.5 mcg INHALER IH SCH ×2 (09:09→21:54)
[2020-03-11] MEDS: ARTIFICIAL TEARS (POLYVINYL ALCOHOL) OPTH DROPS OU SCH ×4 (09:09→21:54)
[2020-03-11] MEDS: ALBUTEROL SO4 HFA INHALER IH SCH ×4 (09:11→22:07)
[2020-03-11] MEDS: LISINOPRIL 10 MG TABLET PO SCH (09:56)
[2020-03-11] MEDS: AZITHROMYCIN IVPB 500 MG/250 ML BAG IVPB SCH (09:56)
[2020-03-11] MEDS: POLYETHYLENE GLYCOL 3350 119 GM BTL PO SCH (09:57)
[2020-03-11] MEDS: ATORVASTATIN CA 40 MG TABLET (FP) PO SCH (21:35)
[2020-03-11] MEDS: MONTELUKAST NA 10 MG TABLET PO SCH (21:35)
[2020-03-11] MEDS: DONEPEZIL HCL 5 MG TABLET (FP) PO SCH (21:36)
[2020-03-11] MEDS: LORazepam 2 MG/ML SDV VIAL IM PRN (21:39)
[2020-03-11] MEDS: LATANOPROST 0.005% OPHTH SOLN 2.5ML BOTTLE OU SCH (21:55)
[2020-03-12] MEDS ORDERED: cefTRIAXone SODIUM 1 GM VIAL ONE (09:26)
[2020-03-12] MEDS ORDERED: DEXTROSE 5%-WATER - 50 ML IVPB ONE (09:26)
[2020-03-12] MEDS: CEFTRIAXONE 1 GM in DEXTROSE 5%-WATER - 50 ML IVPB SCH (09:28)
[2020-03-12] MEDS: FUROSEMIDE 40 MG/4 ML INJECTABLE VIAL IVPUSH SCH (09:34)
[2020-03-12] MEDS: LISINOPRIL 10 MG TABLET PO SCH (09:34)
[2020-03-12] MEDS: CLOPIDOGREL BISULFATE 75 MG TABLET (FP) PO SCH (09:34)
[2020-03-12] MEDS: HEPARIN NA (PORCINE) 5,000 UNITS/ML 1ML VIAL SQ SCH ×2 (09:34→22:30)
[2020-03-12] MEDS: methylPREDNISolone NA SUCC 40 MG/1 ML VIAL IVPUSH SCH (09:34)
[2020-03-12] MEDS: FAMOTIDINE 20 MG TABLET PO SCH (09:34)
[2020-03-12] MEDS: CARVEDILOL 6.25 MG TABLET (FP) PO SCH ×2 (09:34→22:30)
[2020-03-12] MEDS: ASPIRIN 81 MG CHEWABLE TABLETS PO SCH (09:34)
[2020-03-12] MEDS: amLODIPine BESYLATE 10 MG TABLET (FP) PO SCH (09:34)
[2020-03-12] MEDS: ARTIFICIAL TEARS (POLYVINYL ALCOHOL) OPTH DROPS OU SCH ×4 (09:37→22:34)
[2020-03-12] MEDS: DOCUSATE SODIUM 100 MG CAPSULE (FP) PO SCH (09:38)
[2020-03-12] MEDS: POLYETHYLENE GLYCOL 3350 119 GM BTL PO SCH (09:44)
[2020-03-12] MEDS: DOXAZOSIN MESYLATE 2 MG TABLET PO SCH (09:44)
[2020-03-12] MEDS: AZITHROMYCIN IVPB 500 MG/250 ML BAG IVPB SCH (09:45)
[2020-03-12] MEDS: ALBUTEROL SO4 HFA INHALER IH SCH ×4 (09:45→22:31)
[2020-03-12] MEDS: BUDESONIDE/FORMETEROL FUMARATE 160/4.5 mcg INHALER IH SCH ×2 (09:45→22:34)
[2020-03-12] MEDS: MONTELUKAST NA 10 MG TABLET PO SCH (22:30)
[2020-03-12] MEDS: ATORVASTATIN CA 40 MG TABLET (FP) PO SCH (22:30)
[2020-03-12] MEDS: DONEPEZIL HCL 5 MG TABLET (FP) PO SCH (22:30)
[2020-03-12] MEDS: LATANOPROST 0.005% OPHTH SOLN 2.5ML BOTTLE OU SCH (22:33)
[2020-03-13] MEDS ORDERED: cefTRIAXone SODIUM 1 GM VIAL ONE (09:55)
[2020-03-13] MEDS ORDERED: PT OWN MED DRAWER 7, Y5N ONE ×2 (09:55→13:46)
[2020-03-13] MEDS ORDERED: DEXTROSE 5%-WATER - 50 ML IVPB ONE (09:55)
[2020-03-13] MEDS: CEFTRIAXONE 1 GM in DEXTROSE 5%-WATER - 50 ML IVPB SCH (10:01)
[2020-03-13] MEDS: AZITHROMYCIN IVPB 500 MG/250 ML BAG IVPB SCH (10:01)
[2020-03-13] MEDS: HEPARIN NA (PORCINE) 5,000 UNITS/ML 1ML VIAL SQ SCH ×2 (10:01→21:47)
[2020-03-13] MEDS: amLODIPine BESYLATE 10 MG TABLET (FP) PO SCH (10:02)
[2020-03-13] MEDS: FAMOTIDINE 20 MG TABLET PO SCH (10:02)
[2020-03-13] MEDS: CARVEDILOL 6.25 MG TABLET (FP) PO SCH ×2 (10:02→21:48)
[2020-03-13] MEDS: ASPIRIN 81 MG CHEWABLE TABLETS PO SCH (10:02)
[2020-03-13] MEDS: CLOPIDOGREL BISULFATE 75 MG TABLET (FP) PO SCH (10:02)
[2020-03-13] MEDS: LISINOPRIL 10 MG TABLET PO SCH (10:02)
[2020-03-13] MEDS: DOXAZOSIN MESYLATE 2 MG TABLET PO SCH (10:03)
[2020-03-13] MEDS: DOCUSATE SODIUM 100 MG CAPSULE (FP) PO SCH (10:03)
[2020-03-13] MEDS: ALBUTEROL SO4 HFA INHALER IH SCH ×4 (10:05→21:48)
[2020-03-13] MEDS: BUDESONIDE/FORMETEROL FUMARATE 160/4.5 mcg INHALER IH SCH ×2 (10:05→21:47)
[2020-03-13] MEDS: ARTIFICIAL TEARS (POLYVINYL ALCOHOL) OPTH DROPS OU SCH ×4 (10:05→21:47)
[2020-03-13] MEDS: predniSONE 20 MG TABLET (UD) PO SCH (10:08)
[2020-03-13] MEDS: POLYETHYLENE GLYCOL 3350 119 GM BTL PO SCH (10:20)
[2020-03-13] MEDS: FUROSEMIDE 40 MG/4 ML INJECTABLE VIAL IVPUSH SCH (14:39)
[2020-03-13] MEDS: guaiFENesin 200 MG/10 ML 10 ML UNIT-DOSE CUPS PO PRN (21:47)
[2020-03-13] MEDS: LATANOPROST 0.005% OPHTH SOLN 2.5ML BOTTLE OU SCH (21:47)
[2020-03-13] MEDS: DONEPEZIL HCL 5 MG TABLET (FP) PO SCH (21:48)
[2020-03-13] MEDS: MONTELUKAST NA 10 MG TABLET PO SCH (21:48)
[2020-03-13] MEDS: ATORVASTATIN CA 40 MG TABLET (FP) PO SCH (21:48)
[2020-03-14] MEDS: LORazepam 2 MG/ML SDV VIAL IM PRN ×2 (01:51→14:45)
[2020-03-14 06:26] LABS: BASO % 0.2 % (0-2.0); HEMATOCRIT 45.3 % (35.4-49); HEMOGLOBIN 14.6 GM/dL (11.7-16.9); LYMPH % 13.7 % (8-40); MCH 27.4 pg (25.7-33.7); MCHC 32.2 g/dl (32.0-35.9); MEAN CELL VOLUME 85.2 fl (80-96); MEAN PLT VOLUME 7.6 fl (7.5-11.1); MONO % 15.5 % (3.8-10.2); NEUT % 70.6 % (42.8-82.8); PLATELET COUNT 284 K/MM3 (134-434); RBC 5.32 M/mm3 (4.00-5.60); RDW 13.4 % (11.9-15.9); WHITE BLOOD COUNT 10.7 K/mm3 (4.0-10.0)
[2020-03-14 06:35] LABS: POTASSIUM 3.8 mmol/L (3.5-5.1)
[2020-03-14 06:39] LABS: ALBUMIN 2.8 g/dl (3.4-5.0); BLOOD UREA NITROGEN 24.1 mg/dL (7-18)
[2020-03-14 06:41] LABS: CALCIUM 9.9 mg/dL (8.5-10.1)
[2020-03-14 06:42] LABS: CREATININE 0.7 mg/dL (0.55-1.3)
[2020-03-14 06:44] LABS: TOT PROT 5.9 g/dl (6.4-8.2)
[2020-03-14] MEDS ORDERED: cefTRIAXone SODIUM 1 GM VIAL ONE (10:07)
[2020-03-14] MEDS ORDERED: DEXTROSE 5%-WATER - 50 ML IVPB ONE (10:08)
[2020-03-14] MEDS: FAMOTIDINE 20 MG TABLET PO SCH (10:10)
[2020-03-14] MEDS: predniSONE 20 MG TABLET (UD) PO SCH (10:11)
[2020-03-14] MEDS: CLOPIDOGREL BISULFATE 75 MG TABLET (FP) PO SCH (10:11)
[2020-03-14] MEDS: CARVEDILOL 6.25 MG TABLET (FP) PO SCH ×2 (10:11→22:29)
[2020-03-14] MEDS: amLODIPine BESYLATE 10 MG TABLET (FP) PO SCH (10:11)
[2020-03-14] MEDS: LISINOPRIL 10 MG TABLET PO SCH (10:11)
[2020-03-14] MEDS: HEPARIN NA (PORCINE) 5,000 UNITS/ML 1ML VIAL SQ SCH ×2 (10:12→22:30)
[2020-03-14] MEDS: ASPIRIN 81 MG CHEWABLE TABLETS PO SCH (10:15)
[2020-03-14] MEDS: FUROSEMIDE 40 MG/4 ML INJECTABLE VIAL IVPUSH SCH (10:18)
[2020-03-14] MEDS: AZITHROMYCIN IVPB 500 MG/250 ML BAG IVPB SCH ×4 (10:18→12:27)
[2020-03-14] MEDS: CEFTRIAXONE 1 GM in DEXTROSE 5%-WATER - 50 ML IVPB SCH (10:20)
[2020-03-14] MEDS: DOCUSATE SODIUM 100 MG CAPSULE (FP) PO SCH (10:35)
[2020-03-14] MEDS: ARTIFICIAL TEARS (POLYVINYL ALCOHOL) OPTH DROPS OU SCH ×4 (10:36→22:34)
[2020-03-14] MEDS: BUDESONIDE/FORMETEROL FUMARATE 160/4.5 mcg INHALER IH SCH ×2 (10:37→22:33)
[2020-03-14] MEDS: POLYETHYLENE GLYCOL 3350 119 GM BTL PO SCH (10:38)
[2020-03-14] MEDS: ALBUTEROL SO4 HFA INHALER IH SCH ×4 (10:38→22:33)
[2020-03-14] MEDS ORDERED: PT OWN MED DRAWER 7, Y5N ONE (10:41)
[2020-03-14] MEDS: DOXAZOSIN MESYLATE 2 MG TABLET PO SCH (10:42)
[2020-03-14] MEDS: MONTELUKAST NA 10 MG TABLET PO SCH (22:29)
[2020-03-14] MEDS: ATORVASTATIN CA 40 MG TABLET (FP) PO SCH (22:29)
[2020-03-14] MEDS: DONEPEZIL HCL 5 MG TABLET (FP) PO SCH (22:29)
[2020-03-14] MEDS: LATANOPROST 0.005% OPHTH SOLN 2.5ML BOTTLE OU SCH (22:34)
[2020-03-15 06:30] LABS: BASO % 0.4 % (0-2.0); EOS % 0.1 % (0-4.5); HEMATOCRIT 46.3 % (35.4-49); HEMOGLOBIN 14.8 GM/dL (11.7-16.9); LYMPH % 14.3 % (8-40); MCH 27.2 pg (25.7-33.7); MEAN CELL VOLUME 85.1 fl (80-96); MEAN PLT VOLUME 7.5 fl (7.5-11.1); NEUT % 74.2 % (42.8-82.8); PLATELET COUNT 279 K/MM3 (134-434); RBC 5.45 M/mm3 (4.00-5.60); RDW 13.6 % (11.9-15.9)
[2020-03-15 06:49] LABS: POTASSIUM 3.9 mmol/L (3.5-5.1)
[2020-03-15 06:50] LABS: BLOOD UREA NITROGEN 23.6 mg/dL (7-18); CALCIUM 9.8 mg/dL (8.5-10.1)
[2020-03-15 06:54] LABS: CREATININE 0.6 mg/dL (0.55-1.3)
[2020-03-15] MEDS ORDERED: cefTRIAXone SODIUM 1 GM VIAL ONE (08:55)
[2020-03-15] MEDS ORDERED: DEXTROSE 5%-WATER - 50 ML IVPB ONE (08:55)
[2020-03-15] MEDS: ARTIFICIAL TEARS (POLYVINYL ALCOHOL) OPTH DROPS OU SCH ×4 (09:15→21:02)
[2020-03-15] MEDS: ASPIRIN 81 MG CHEWABLE TABLETS PO SCH (09:15)
[2020-03-15] MEDS: HEPARIN NA (PORCINE) 5,000 UNITS/ML 1ML VIAL SQ SCH ×2 (09:15→21:01)
[2020-03-15] MEDS: LISINOPRIL 10 MG TABLET PO SCH (09:16)
[2020-03-15] MEDS: POLYETHYLENE GLYCOL 3350 119 GM BTL PO SCH (09:16)
[2020-03-15] MEDS: FAMOTIDINE 20 MG TABLET PO SCH (09:16)
[2020-03-15] MEDS: CARVEDILOL 6.25 MG TABLET (FP) PO SCH ×2 (09:16→21:01)
[2020-03-15] MEDS: predniSONE 20 MG TABLET (UD) PO SCH (09:16)
[2020-03-15] MEDS: CLOPIDOGREL BISULFATE 75 MG TABLET (FP) PO SCH (09:16)
[2020-03-15] MEDS: amLODIPine BESYLATE 10 MG TABLET (FP) PO SCH (09:16)
[2020-03-15] MEDS: DOCUSATE SODIUM 100 MG CAPSULE (FP) PO SCH (09:16)
[2020-03-15] MEDS: DOXAZOSIN MESYLATE 2 MG TABLET PO SCH (09:17)
[2020-03-15] MEDS: BUDESONIDE/FORMETEROL FUMARATE 160/4.5 mcg INHALER IH SCH ×2 (09:17→21:02)
[2020-03-15] MEDS: FUROSEMIDE 40 MG/4 ML INJECTABLE VIAL IVPUSH SCH (10:34)
[2020-03-15] MEDS: CEFTRIAXONE 1 GM in DEXTROSE 5%-WATER - 50 ML IVPB SCH (10:34)
[2020-03-15] MEDS: AZITHROMYCIN IVPB 500 MG/250 ML BAG IVPB SCH (11:13)
[2020-03-15] MEDS: ALBUTEROL SO4 HFA INHALER IH SCH ×4 (11:13→21:27)
[2020-03-15] MEDS: ATORVASTATIN CA 40 MG TABLET (FP) PO SCH (21:01)
[2020-03-15] MEDS: MONTELUKAST NA 10 MG TABLET PO SCH (21:01)
[2020-03-15] MEDS: DONEPEZIL HCL 5 MG TABLET (FP) PO SCH (21:01)
[2020-03-15] MEDS: LATANOPROST 0.005% OPHTH SOLN 2.5ML BOTTLE OU SCH (21:27)
[2020-03-16] MEDS ORDERED: cefTRIAXone SODIUM 1 GM VIAL ONE (09:08)
[2020-03-16] MEDS ORDERED: DEXTROSE 5%-WATER - 50 ML IVPB ONE (09:08)
[2020-03-16] MEDS: HEPARIN NA (PORCINE) 5,000 UNITS/ML 1ML VIAL SQ SCH ×2 (09:27→23:38)
[2020-03-16] MEDS: DOXAZOSIN MESYLATE 2 MG TABLET PO SCH (09:27)
[2020-03-16] MEDS: CARVEDILOL 6.25 MG TABLET (FP) PO SCH ×2 (09:27→23:36)
[2020-03-16] MEDS: FUROSEMIDE 40 MG/4 ML INJECTABLE VIAL IVPUSH SCH (09:27)
[2020-03-16] MEDS: CLOPIDOGREL BISULFATE 75 MG TABLET (FP) PO SCH (09:27)
[2020-03-16] MEDS: predniSONE 20 MG TABLET (UD) PO SCH (09:27)
[2020-03-16] MEDS: LISINOPRIL 10 MG TABLET PO SCH (09:27)
[2020-03-16] MEDS: ASPIRIN 81 MG CHEWABLE TABLETS PO SCH (09:27)
[2020-03-16] MEDS: amLODIPine BESYLATE 10 MG TABLET (FP) PO SCH (09:27)
[2020-03-16] MEDS: DOCUSATE SODIUM 100 MG CAPSULE (FP) PO SCH (09:28)
[2020-03-16] MEDS: ARTIFICIAL TEARS (POLYVINYL ALCOHOL) OPTH DROPS OU SCH ×4 (09:32→23:36)
[2020-03-16] MEDS: BUDESONIDE/FORMETEROL FUMARATE 160/4.5 mcg INHALER IH SCH ×2 (09:32→23:37)
[2020-03-16] MEDS: FAMOTIDINE 20 MG TABLET PO SCH (09:32)
[2020-03-16] MEDS: ALBUTEROL SO4 HFA INHALER IH SCH ×4 (09:32→23:37)
[2020-03-16] MEDS: CEFTRIAXONE 1 GM in DEXTROSE 5%-WATER - 50 ML IVPB SCH (09:32)
[2020-03-16] MEDS: POLYETHYLENE GLYCOL 3350 119 GM BTL PO SCH (09:32)
[2020-03-16] MEDS: AZITHROMYCIN IVPB 500 MG/250 ML BAG IVPB SCH (10:18)
[2020-03-16] MEDS: ATORVASTATIN CA 40 MG TABLET (FP) PO SCH (23:35)
[2020-03-16] MEDS: MONTELUKAST NA 10 MG TABLET PO SCH (23:35)
[2020-03-16] MEDS: DONEPEZIL HCL 5 MG TABLET (FP) PO SCH (23:35)
[2020-03-16] MEDS: LATANOPROST 0.005% OPHTH SOLN 2.5ML BOTTLE OU SCH (23:37)
[2020-03-17] MEDS ORDERED: cefTRIAXone SODIUM 1 GM VIAL ONE (09:56)
[2020-03-17] MEDS ORDERED: DEXTROSE 5%-WATER - 50 ML IVPB ONE (09:57)
[2020-03-17] MEDS: CLOPIDOGREL BISULFATE 75 MG TABLET (FP) PO SCH (10:30)
[2020-03-17] MEDS: CARVEDILOL 6.25 MG TABLET (FP) PO SCH ×2 (10:30→22:11)
[2020-03-17] MEDS: LISINOPRIL 10 MG TABLET PO SCH (10:30)
[2020-03-17] MEDS: predniSONE 10 MG TABLET (UD) PO SCH (10:30)
[2020-03-17] MEDS: amLODIPine BESYLATE 10 MG TABLET (FP) PO SCH (10:30)
[2020-03-17] MEDS: ASPIRIN 81 MG CHEWABLE TABLETS PO SCH (10:30)
[2020-03-17] MEDS: POLYETHYLENE GLYCOL 3350 119 GM BTL PO SCH (10:31)
[2020-03-17] MEDS: ARTIFICIAL TEARS (POLYVINYL ALCOHOL) OPTH DROPS OU SCH ×4 (10:31→22:15)
[2020-03-17] MEDS: DOCUSATE SODIUM 100 MG CAPSULE (FP) PO SCH (10:31)
[2020-03-17] MEDS: HEPARIN NA (PORCINE) 5,000 UNITS/ML 1ML VIAL SQ SCH ×2 (10:31→22:12)
[2020-03-17] MEDS: BUDESONIDE/FORMETEROL FUMARATE 160/4.5 mcg INHALER IH SCH ×2 (10:31→22:15)
[2020-03-17] MEDS: FAMOTIDINE 20 MG TABLET PO SCH (10:31)
[2020-03-17] MEDS: DOXAZOSIN MESYLATE 2 MG TABLET PO SCH (10:31)
[2020-03-17] MEDS: ALBUTEROL SO4 HFA INHALER IH SCH ×4 (10:31→22:15)
[2020-03-17] MEDS: CEFTRIAXONE 1 GM in DEXTROSE 5%-WATER - 50 ML IVPB SCH (10:58)
[2020-03-17] MEDS: FUROSEMIDE 40 MG/4 ML INJECTABLE VIAL IVPUSH SCH (10:58)
[2020-03-17] MEDS: AZITHROMYCIN IVPB 500 MG/250 ML BAG IVPB SCH (11:32)
[2020-03-17] MEDS: guaiFENesin 200 MG/10 ML 10 ML UNIT-DOSE CUPS PO PRN (16:00)
[2020-03-17] MEDS: MONTELUKAST NA 10 MG TABLET PO SCH (22:11)
[2020-03-17] MEDS: ATORVASTATIN CA 40 MG TABLET (FP) PO SCH (22:11)
[2020-03-17] MEDS: DONEPEZIL HCL 5 MG TABLET (FP) PO SCH (22:11)
[2020-03-17] MEDS: LATANOPROST 0.005% OPHTH SOLN 2.5ML BOTTLE OU SCH (22:15)
[2020-03-18] MEDS ORDERED: DEXTROSE 5%-WATER - 50 ML IVPB ONE (08:52)
[2020-03-18] MEDS ORDERED: cefTRIAXone SODIUM 1 GM VIAL ONE (08:52)
[2020-03-18] MEDS: ARTIFICIAL TEARS (POLYVINYL ALCOHOL) OPTH DROPS OU SCH ×4 (09:02→21:30)
[2020-03-18] MEDS: ASPIRIN 81 MG CHEWABLE TABLETS PO SCH (09:03)
[2020-03-18] MEDS: HEPARIN NA (PORCINE) 5,000 UNITS/ML 1ML VIAL SQ SCH ×2 (09:04→21:27)
[2020-03-18] MEDS: CARVEDILOL 6.25 MG TABLET (FP) PO SCH ×2 (09:04→21:26)
[2020-03-18] MEDS: predniSONE 10 MG TABLET (UD) PO SCH (09:04)
[2020-03-18] MEDS: DOCUSATE SODIUM 100 MG CAPSULE (FP) PO SCH (09:04)
[2020-03-18] MEDS: CLOPIDOGREL BISULFATE 75 MG TABLET (FP) PO SCH (09:05)
[2020-03-18] MEDS: CEFTRIAXONE 1 GM in DEXTROSE 5%-WATER - 50 ML IVPB SCH (09:05)
[2020-03-18] MEDS: FAMOTIDINE 20 MG TABLET PO SCH (09:05)
[2020-03-18] MEDS: LISINOPRIL 10 MG TABLET PO SCH (09:05)
[2020-03-18] MEDS: FUROSEMIDE 40 MG/4 ML INJECTABLE VIAL IVPUSH SCH (09:05)
[2020-03-18] MEDS: amLODIPine BESYLATE 10 MG TABLET (FP) PO SCH (09:05)
[2020-03-18] MEDS: AZITHROMYCIN IVPB 500 MG/250 ML BAG IVPB SCH (09:06)
[2020-03-18] MEDS: POLYETHYLENE GLYCOL 3350 119 GM BTL PO SCH ×2 (09:07→09:31)
[2020-03-18] MEDS ORDERED: PT OWN MED DRAWER 7, Y5N ONE (09:49)
[2020-03-18] MEDS: ALBUTEROL SO4 HFA INHALER IH SCH ×4 (10:25→21:29)
[2020-03-18] MEDS: BUDESONIDE/FORMETEROL FUMARATE 160/4.5 mcg INHALER IH SCH ×2 (10:25→21:25)
[2020-03-18] MEDS: DOXAZOSIN MESYLATE 2 MG TABLET PO SCH (10:25)
[2020-03-18 15:02] VITALS: BMI 17.8
[2020-03-18] MEDS: ATORVASTATIN CA 40 MG TABLET (FP) PO SCH (21:26)
[2020-03-18] MEDS: MONTELUKAST NA 10 MG TABLET PO SCH (21:26)
[2020-03-18] MEDS: DONEPEZIL HCL 5 MG TABLET (FP) PO SCH (21:27)
[2020-03-18] MEDS: LATANOPROST 0.005% OPHTH SOLN 2.5ML BOTTLE OU SCH (21:29)
[2020-03-19] MEDS ORDERED: cefTRIAXone SODIUM 1 GM VIAL ONE (10:02)
[2020-03-19] MEDS ORDERED: DEXTROSE 5%-WATER - 50 ML IVPB ONE (10:02)
[2020-03-19] MEDS ORDERED: PT OWN MED DRAWER 7, Y5N ONE (10:03)
[2020-03-19] MEDS: FAMOTIDINE 20 MG TABLET PO SCH (10:06)
[2020-03-19] MEDS: ASPIRIN 81 MG CHEWABLE TABLETS PO SCH (10:07)
[2020-03-19] MEDS: predniSONE 10 MG TABLET (UD) PO SCH (10:07)
[2020-03-19] MEDS: FUROSEMIDE 40 MG/4 ML INJECTABLE VIAL IVPUSH SCH (10:07)
[2020-03-19] MEDS: CLOPIDOGREL BISULFATE 75 MG TABLET (FP) PO SCH (10:07)
[2020-03-19] MEDS: CARVEDILOL 6.25 MG TABLET (FP) PO SCH (10:07)
[2020-03-19] MEDS: LISINOPRIL 10 MG TABLET PO SCH (10:08)
[2020-03-19] MEDS: HEPARIN NA (PORCINE) 5,000 UNITS/ML 1ML VIAL SQ SCH (10:08)
[2020-03-19] MEDS: POLYETHYLENE GLYCOL 3350 119 GM BTL PO SCH (10:08)
[2020-03-19] MEDS: DOCUSATE SODIUM 100 MG CAPSULE (FP) PO SCH (10:09)
[2020-03-19] MEDS: amLODIPine BESYLATE 10 MG TABLET (FP) PO SCH (10:09)
[2020-03-19] MEDS: DOXAZOSIN MESYLATE 2 MG TABLET PO SCH (10:09)
[2020-03-19] MEDS: ALBUTEROL SO4 HFA INHALER IH SCH ×2 (10:10→15:15)
[2020-03-19] MEDS: AZITHROMYCIN IVPB 500 MG/250 ML BAG IVPB SCH (10:10)
[2020-03-19] MEDS: BUDESONIDE/FORMETEROL FUMARATE 160/4.5 mcg INHALER IH SCH (10:12)
[2020-03-19] MEDS: ARTIFICIAL TEARS (POLYVINYL ALCOHOL) OPTH DROPS OU SCH ×2 (10:12→15:15)
[2020-03-19] MEDS: CEFTRIAXONE 1 GM in DEXTROSE 5%-WATER - 50 ML IVPB SCH (12:06)
[2020-03-19 13:06] VITALS: TEMP 98
[2020-03-19 14:08] VITALS: BP 103/51; PULSE 65
== END 2020-03-19 16:31 | disposition home health service (06) | DRG 291 ==
LOC: JER 14:44 → JERBED 19:06 → J7W 03-07 00:09
PROVIDERS: ADMIT Specialist; ATTEND Specialist
DX: I11.0 Hypertensive heart disease with heart failure (principal); J18.9 Pneumonia, unspecified organism; I69.959 Hemiplegia and hemiparesis following unspecified cerebrovascular disease affecting unspecified side; T86.290 Cardiac allograft vasculopathy; J44.1 Chronic obstructive pulmonary disease with (acute) exacerbation; J44.0 Chronic obstructive pulmonary disease with (acute) lower respiratory infection; I50.33 Acute on chronic diastolic (congestive) heart failure; E78.5 Hyperlipidemia, unspecified; J44.9 Chronic obstructive pulmonary disease, unspecified; N40.0 Benign prostatic hyperplasia without lower urinary tract symptoms; F03.90 Unspecified dementia, unspecified severity, without behavioral disturbance, psychotic disturbance, mood disturbance, and anxiety; D72.829 Elevated white blood cell count, unspecified; E03.9 Hypothyroidism, unspecified
CPT/HCPCS: 36415; 70450-TC; 71045-TC-FY; 71250-TC; 72170-TC-FY; 74230-TC-FY; 76775-TC; 80048; 80053; 82550; 82553; 83605; 83735; 83880; 84484; 85025; 85610; 85730; 87040; 87899; 92611-GN; 93005; 93010; 94010; 94640; 97116-GP; 97161-GP; 99285-25; C9803; J1644; U0003

== ENCOUNTER 2020-04-26 11:10 | Inpatient (IN) | payer OTHER, BC ==
[2020-04-26 12:03] VITALS: BMI 21.7
[2020-04-26 14:27] LABS: BASO % 1.2 % (0-2.0); EOS % 11.3 % (0-4.5); HEMATOCRIT 37.9 % (35.4-49); HEMOGLOBIN 12.2 GM/dL (11.7-16.9); LYMPH % 23.3 % (8-40); MCH 27.8 pg (25.7-33.7); MCHC 32.3 g/dl (32.0-35.9); MEAN CELL VOLUME 86.2 fl (80-96); MEAN PLT VOLUME 6.7 fl (7.5-11.1); MONO % 11.1 % (3.8-10.2); NEUT % 53.1 % (42.8-82.8); PLATELET COUNT 346 K/MM3 (134-434); RDW 14.1 % (11.9-15.9); WHITE BLOOD COUNT 6.8 K/mm3 (4.0-10.0)
[2020-04-26 14:34] LABS: INR 1.05 (0.83-1.09); PROTHROMBIN TIME (PATIENT) 12.7 SEC (9.7-13.0)
[2020-04-26 14:37] LABS: ACTIVATED PTT 26.6 SECONDS (25.2-36.5); CHLORIDE 104 mmol/L (98-107); POTASSIUM 4.1 mmol/L (3.5-5.1); SODIUM 140 mmol/L (136-145)
[2020-04-26 14:39] LABS: ALBUMIN 3.2 g/dl (3.4-5.0); ANION GAP 5 MMOL/L (8-16); BLOOD UREA NITROGEN 7.9 mg/dL (7-18); CALCIUM 9.4 mg/dL (8.5-10.1); CO2 31 mmol/L (21-32); GLUCOSE,RANDOM 95 mg/dL (74-106)
[2020-04-26 14:42] LABS: CREATININE 0.7 mg/dL (0.55-1.3); SGOT/AST 20 U/L (15-37); SGPT/ALT 22 U/L (13-61)
[2020-04-26 14:44] LABS: BILIRUBIN,TOTAL 0.9 mg/dL (0.2-1); TOT PROT 5.9 g/dl (6.4-8.2)
[2020-04-26 14:45] LABS: ALK PHOS 95 U/L (45-117)
[2020-04-26 14:47] LABS: N-TERMINAL BNP 206.5 pg/ml (5-450)
[2020-04-26] MEDS ORDERED: FUROSEMIDE 40 MG/4 ML INJECTABLE VIAL IVPUSH ONE (16:59)
[2020-04-26] MEDS ORDERED: FUROSEMIDE 40 MG/4 ML INJECTABLE VIAL ONE (19:45)
[2020-04-26] MEDS ORDERED: ACETAMINOPHEN 325 MG TABLET (FP) PO PRN (19:58)
[2020-04-26] MEDS ORDERED: ALBUTEROL SO4 HFA INHALER IH PRN (19:58)
[2020-04-26] MEDS ORDERED: guaiFENesin 200 MG/10 ML 10 ML UNIT-DOSE CUPS PO PRN (19:58)
[2020-04-26] MEDS ORDERED: ALBUTEROL SO4 0.083% IH SOL 2.5 MG/3 ML VIAL.NEB. NEB PRN (19:58)
[2020-04-26] MEDS: ARTIFICIAL TEARS (POLYVINYL ALCOHOL) OPTH DROPS OU SCH (22:02)
[2020-04-26] MEDS: LATANOPROST 0.005% OPHTH SOLN 2.5ML BOTTLE OU SCH (22:03)
[2020-04-26] MEDS: ATORVASTATIN CA 40 MG TABLET (FP) PO SCH (22:03)
[2020-04-26] MEDS: BUDESONIDE/FORMETEROL FUMARATE 160/4.5 mcg INHALER IH SCH (22:03)
[2020-04-26] MEDS: MONTELUKAST NA 10 MG TABLET PO SCH (22:03)
[2020-04-26] MEDS: CARVEDILOL 6.25 MG TABLET (FP) PO SCH (22:03)
[2020-04-27] MEDS ORDERED: PT OWN MED DRAWER 7, Y5N ONE ×2 (09:29→13:55)
[2020-04-27] MEDS: ASPIRIN 81 MG CHEWABLE TABLETS PO SCH (09:35)
[2020-04-27] MEDS: CARVEDILOL 6.25 MG TABLET (FP) PO SCH ×2 (09:36→21:11)
[2020-04-27] MEDS: DOCUSATE SODIUM 100 MG CAPSULE (FP) PO SCH (09:36)
[2020-04-27] MEDS: FAMOTIDINE 20 MG TABLET PO SCH (09:37)
[2020-04-27] MEDS: CLOPIDOGREL BISULFATE 75 MG TABLET (FP) PO SCH (09:37)
[2020-04-27] MEDS: POLYETHYLENE GLYCOL 3350 119 GM BTL PO SCH (09:37)
[2020-04-27] MEDS: amLODIPine BESYLATE 10 MG TABLET (FP) PO SCH (09:37)
[2020-04-27] MEDS: LISINOPRIL 10 MG TABLET PO SCH (09:38)
[2020-04-27] MEDS ORDERED: PATIENT'S OWN MEDICATION (NON-FORMULARY) (Travoprost [Travatan Z] 5 ML Drops) OU SCH (10:00)
[2020-04-27] MEDS: FUROSEMIDE 40 MG/4 ML INJECTABLE VIAL IVPUSH SCH (11:42)
[2020-04-27] MEDS: BUDESONIDE/FORMETEROL FUMARATE 160/4.5 mcg INHALER IH SCH ×2 (11:42→21:11)
[2020-04-27] MEDS: ARTIFICIAL TEARS (POLYVINYL ALCOHOL) OPTH DROPS OU SCH ×4 (11:43→21:11)
[2020-04-27] MEDS: DOXAZOSIN MESYLATE 2 MG TABLET PO SCH (14:11)
[2020-04-27] MEDS: DONEPEZIL HCL 5 MG TABLET (FP) PO SCH (17:51)
[2020-04-27] MEDS: MONTELUKAST NA 10 MG TABLET PO SCH (21:11)
[2020-04-27] MEDS: ATORVASTATIN CA 40 MG TABLET (FP) PO SCH (21:11)
[2020-04-27] MEDS: LATANOPROST 0.005% OPHTH SOLN 2.5ML BOTTLE OU SCH (22:06)
[2020-04-28 09:16] LABS: BASO % 0.8 % (0-2.0); EOS % 6.6 % (0-4.5); HEMATOCRIT 40.5 % (35.4-49); HEMOGLOBIN 13.2 GM/dL (11.7-16.9); LYMPH % 20.3 % (8-40); MCH 27.9 pg (25.7-33.7); MCHC 32.7 g/dl (32.0-35.9); MEAN CELL VOLUME 85.3 fl (80-96); MEAN PLT VOLUME 7.2 fl (7.5-11.1); MONO % 13.1 % (3.8-10.2); NEUT % 59.2 % (42.8-82.8); PLATELET COUNT 308 K/MM3 (134-434); RBC 4.75 M/mm3 (4.00-5.60); RDW 13.9 % (11.9-15.9)
[2020-04-28 09:28] LABS: POTASSIUM 4.1 mmol/L (3.5-5.1)
[2020-04-28 09:34] LABS: ALBUMIN 3.2 g/dl (3.4-5.0); BLOOD UREA NITROGEN 8.6 mg/dL (7-18); CALCIUM 9.6 mg/dL (8.5-10.1)
[2020-04-28 09:37] LABS: CREATININE 0.6 mg/dL (0.55-1.3)
[2020-04-28] MEDS ORDERED: PT OWN MED DRAWER 7, Y5N ONE (10:03)
[2020-04-28] MEDS: ASPIRIN 81 MG CHEWABLE TABLETS PO SCH (10:06)
[2020-04-28] MEDS: DOCUSATE SODIUM 100 MG CAPSULE (FP) PO SCH (10:07)
[2020-04-28] MEDS: DOXAZOSIN MESYLATE 2 MG TABLET PO SCH (10:07)
[2020-04-28] MEDS: POLYETHYLENE GLYCOL 3350 119 GM BTL PO SCH (10:07)
[2020-04-28] MEDS: CARVEDILOL 6.25 MG TABLET (FP) PO SCH ×2 (10:07→21:25)
[2020-04-28] MEDS: FAMOTIDINE 20 MG TABLET PO SCH (10:08)
[2020-04-28] MEDS: LISINOPRIL 10 MG TABLET PO SCH (10:08)
[2020-04-28] MEDS: amLODIPine BESYLATE 10 MG TABLET (FP) PO SCH (10:08)
[2020-04-28] MEDS: CLOPIDOGREL BISULFATE 75 MG TABLET (FP) PO SCH (10:08)
[2020-04-28] MEDS: BUDESONIDE/FORMETEROL FUMARATE 160/4.5 mcg INHALER IH SCH ×2 (10:08→21:25)
[2020-04-28] MEDS: FUROSEMIDE 40 MG/4 ML INJECTABLE VIAL IVPUSH SCH (10:09)
[2020-04-28] MEDS: ARTIFICIAL TEARS (POLYVINYL ALCOHOL) OPTH DROPS OU SCH ×4 (10:09→21:25)
[2020-04-28] MEDS: DONEPEZIL HCL 5 MG TABLET (FP) PO SCH (17:34)
[2020-04-28] MEDS: MONTELUKAST NA 10 MG TABLET PO SCH (21:25)
[2020-04-28] MEDS: ATORVASTATIN CA 40 MG TABLET (FP) PO SCH (21:25)
[2020-04-28] MEDS: LATANOPROST 0.005% OPHTH SOLN 2.5ML BOTTLE OU SCH (21:27)
[2020-04-29] MEDS: POLYETHYLENE GLYCOL 3350 119 GM BTL PO SCH (09:45)
[2020-04-29] MEDS: DOCUSATE SODIUM 100 MG CAPSULE (FP) PO SCH (09:46)
[2020-04-29] MEDS: DOXAZOSIN MESYLATE 2 MG TABLET PO SCH (09:46)
[2020-04-29] MEDS: amLODIPine BESYLATE 10 MG TABLET (FP) PO SCH (09:46)
[2020-04-29] MEDS: LISINOPRIL 10 MG TABLET PO SCH (09:46)
[2020-04-29] MEDS: ASPIRIN 81 MG CHEWABLE TABLETS PO SCH (09:46)
[2020-04-29] MEDS: FAMOTIDINE 20 MG TABLET PO SCH (09:46)
[2020-04-29] MEDS: CARVEDILOL 6.25 MG TABLET (FP) PO SCH ×2 (09:46→21:47)
[2020-04-29] MEDS: ARTIFICIAL TEARS (POLYVINYL ALCOHOL) OPTH DROPS OU SCH ×4 (09:46→21:50)
[2020-04-29] MEDS: CLOPIDOGREL BISULFATE 75 MG TABLET (FP) PO SCH (09:46)
[2020-04-29] MEDS: BUDESONIDE/FORMETEROL FUMARATE 160/4.5 mcg INHALER IH SCH ×2 (09:47→21:50)
[2020-04-29] MEDS: FUROSEMIDE 40 MG/4 ML INJECTABLE VIAL IVPUSH SCH (09:47)
[2020-04-29] MEDS: DONEPEZIL HCL 5 MG TABLET (FP) PO SCH (17:38)
[2020-04-29] MEDS: MONTELUKAST NA 10 MG TABLET PO SCH (21:47)
[2020-04-29] MEDS: ATORVASTATIN CA 40 MG TABLET (FP) PO SCH (21:47)
[2020-04-29] MEDS: LATANOPROST 0.005% OPHTH SOLN 2.5ML BOTTLE OU SCH (23:42)
[2020-04-30] MEDS ORDERED: PT OWN MED DRAWER 7, Y5N ONE (09:35)
[2020-04-30] MEDS: CARVEDILOL 6.25 MG TABLET (FP) PO SCH (09:45)
[2020-04-30] MEDS: FAMOTIDINE 20 MG TABLET PO SCH (09:45)
[2020-04-30] MEDS: ASPIRIN 81 MG CHEWABLE TABLETS PO SCH (09:45)
[2020-04-30] MEDS: LISINOPRIL 10 MG TABLET PO SCH (09:45)
[2020-04-30] MEDS: amLODIPine BESYLATE 10 MG TABLET (FP) PO SCH (09:46)
[2020-04-30] MEDS: CLOPIDOGREL BISULFATE 75 MG TABLET (FP) PO SCH (09:46)
[2020-04-30] MEDS: DOXAZOSIN MESYLATE 2 MG TABLET PO SCH (09:46)
[2020-04-30] MEDS: DOCUSATE SODIUM 100 MG CAPSULE (FP) PO SCH (09:46)
[2020-04-30] MEDS: POLYETHYLENE GLYCOL 3350 119 GM BTL PO SCH (09:47)
[2020-04-30] MEDS: FUROSEMIDE 40 MG/4 ML INJECTABLE VIAL IVPUSH SCH (09:47)
[2020-04-30] MEDS: BUDESONIDE/FORMETEROL FUMARATE 160/4.5 mcg INHALER IH SCH (09:48)
[2020-04-30] MEDS: ARTIFICIAL TEARS (POLYVINYL ALCOHOL) OPTH DROPS OU SCH ×3 (09:49→17:10)
[2020-04-30] MEDS ORDERED: predniSONE 10 MG TABLET (UD) PO SCH (10:00)
[2020-04-30 15:07] VITALS: BP 116/56; PULSE 71; TEMP 97.7
[2020-04-30] MEDS: DONEPEZIL HCL 5 MG TABLET (FP) PO SCH (17:10)
== END 2020-04-30 20:26 | DRG 292 ==
LOC: JER 11:10 → JERBED 17:22 → J8W 04-27 00:09
PROVIDERS: ADMIT Specialist; ATTEND Specialist
DX: I11.0 Hypertensive heart disease with heart failure (principal); I69.351 Hemiplegia and hemiparesis following cerebral infarction affecting right dominant side; I50.33 Acute on chronic diastolic (congestive) heart failure; J44.9 Chronic obstructive pulmonary disease, unspecified; E78.5 Hyperlipidemia, unspecified; R91.1 Solitary pulmonary nodule; E11.9 Type 2 diabetes mellitus without complications; Z99.81 Dependence on supplemental oxygen; Z87.891 Personal history of nicotine dependence; I72.2 Aneurysm of renal artery; F01.50 Vascular dementia, unspecified severity, without behavioral disturbance, psychotic disturbance, mood disturbance, and anxiety
CPT/HCPCS: 36415; 71045-TC-FY; 71250-TC; 80053; 82550; 82607; 83880; 84439; 84443; 84484; 85025; 85610; 85730; 93005; 93010; 93970-TC; 97116-GP; 97162-GP; 99285-25; C9803; U0003

== ENCOUNTER 2020-07-15 11:14 | Inpatient (IN) | payer OTHER, BC ==
[2020-07-15] MEDS ORDERED: LIDOCAINE HCL 1%, 10 MG/ML (20ML VIAL) ONE (12:01)
[2020-07-15 13:09] LABS: BASO % 0.8 % (0-2.0); HEMATOCRIT 37.4 % (35.4-49); HEMOGLOBIN 12.8 GM/dL (11.7-16.9); LYMPH % 16.5 % (8-40); MCH 29.3 pg (25.7-33.7); MCHC 34.2 g/dl (32.0-35.9); MEAN CELL VOLUME 85.6 fl (80-96); MEAN PLT VOLUME 7.4 fl (7.5-11.1); MONO % 10.7 % (3.8-10.2); PLATELET COUNT 435 K/MM3 (134-434); RBC 4.37 M/mm3 (4.00-5.60); RDW 14.8 % (11.9-15.9); WHITE BLOOD COUNT 7.8 K/mm3 (4.0-10.0)
[2020-07-15] MEDS ORDERED: ALBUTEROL SO4 0.083% IH SOL 2.5 MG/3 ML VIAL.NEB. NEB PRN (13:11)
[2020-07-15] MEDS ORDERED: guaiFENesin 200 MG/10 ML 10 ML UNIT-DOSE CUPS PO PRN (13:11)
[2020-07-15 13:12] LABS: INR 0.97 (0.83-1.09); PROTHROMBIN TIME (PATIENT) 11.7 SEC (9.7-13.0)
[2020-07-15 13:15] LABS: ACTIVATED PTT 27.2 SECONDS (25.2-36.5)
[2020-07-15 13:27] LABS: BLOOD UREA NITROGEN 19.5 mg/dL (7-18)
[2020-07-15 13:31] LABS: CREATININE 0.8 mg/dL (0.55-1.3)
[2020-07-15 13:32] LABS: TOT PROT 7.2 g/dl (6.4-8.2)
[2020-07-15 13:38] LABS: CALCIUM 9.7 mg/dL (8.5-10.1)
[2020-07-15 13:46] LABS: POTASSIUM 8.4 mmol/L (3.5-5.1)
[2020-07-15] MEDS: ARTIFICIAL TEARS (POLYVINYL ALCOHOL) OPTH DROPS OU SCH ×3 (14:03→22:39)
[2020-07-15] MEDS ORDERED: ALBUTEROL SO4 HFA INHALER IH PRN (14:13)
[2020-07-15 15:23] LABS: POTASSIUM 4.4 mmol/L (3.5-5.1)
[2020-07-15 15:25] LABS: BLOOD UREA NITROGEN 21.1 mg/dL (7-18)
[2020-07-15 15:28] LABS: CREATININE 0.7 mg/dL (0.55-1.3)
[2020-07-15 15:33] LABS: CALCIUM 9.7 mg/dL (8.5-10.1)
[2020-07-15] MEDS ORDERED: LATANOPROST 0.005% OPHTH SOLN 2.5ML BOTTLE OU SCH (22:00)
[2020-07-15] MEDS: MONTELUKAST NA 10 MG TABLET PO SCH (22:39)
[2020-07-15] MEDS: BUDESONIDE/FORMETEROL FUMARATE 160/4.5 mcg INHALER IH SCH (22:40)
[2020-07-15] MEDS: ATORVASTATIN CA 40 MG TABLET (FP) PO SCH (22:40)
[2020-07-15] MEDS: CARVEDILOL 6.25 MG TABLET (FP) PO SCH (22:40)
[2020-07-15] MEDS: HEPARIN NA (PORCINE) 5,000 UNITS/ML 1ML VIAL SQ SCH (23:06)
[2020-07-16 01:36] VITALS: BMI 19.4
[2020-07-16] MEDS: ACETAMINOPHEN 325 MG TABLET (FP) PO PRN ×2 (06:03→22:02)
[2020-07-16] MEDS ORDERED: PT OWN MED DRAWER 7, Y5N ONE (08:56)
[2020-07-16] MEDS: DOXAZOSIN MESYLATE 2 MG TABLET PO SCH (09:27)
[2020-07-16] MEDS: ARTIFICIAL TEARS (POLYVINYL ALCOHOL) OPTH DROPS OU SCH ×4 (09:28→22:02)
[2020-07-16] MEDS: BUDESONIDE/FORMETEROL FUMARATE 160/4.5 mcg INHALER IH SCH ×2 (09:28→22:01)
[2020-07-16] MEDS: DOCUSATE SODIUM 100 MG CAPSULE (FP) PO SCH (09:30)
[2020-07-16] MEDS: CARVEDILOL 6.25 MG TABLET (FP) PO SCH ×2 (09:30→22:02)
[2020-07-16] MEDS: FAMOTIDINE 20 MG TABLET PO SCH (09:30)
[2020-07-16] MEDS: HEPARIN NA (PORCINE) 5,000 UNITS/ML 1ML VIAL SQ SCH ×2 (09:31→22:02)
[2020-07-16] MEDS: ASPIRIN 81 MG CHEWABLE TABLETS PO SCH (09:31)
[2020-07-16] MEDS: amLODIPine BESYLATE 10 MG TABLET (FP) PO SCH (09:31)
[2020-07-16] MEDS: POLYETHYLENE GLYCOL 3350 119 GM BTL PO SCH (09:31)
[2020-07-16] MEDS: CLOPIDOGREL BISULFATE 75 MG TABLET (FP) PO SCH (09:31)
[2020-07-16] MEDS: predniSONE 10 MG TABLET (UD) PO SCH (09:31)
[2020-07-16] MEDS: LISINOPRIL 10 MG TABLET PO SCH (09:31)
[2020-07-16] MEDS ORDERED: FUROSEMIDE 40 MG TABLET (FP) PO SCH (10:00)
[2020-07-16] MEDS ORDERED: ALBUTEROL SO4 2.5/IPRATROPIUM 0.5 INH SOL 3 ML VIAL.NEB. NEB ONE (12:18)
[2020-07-16 20:47] LABS: N-TERMINAL BNP 156.1 pg/ml (5-450)
[2020-07-16] MEDS: DONEPEZIL HCL 5 MG TABLET (FP) PO SCH (22:02)
[2020-07-16] MEDS: MONTELUKAST NA 10 MG TABLET PO SCH (22:02)
[2020-07-16] MEDS: ATORVASTATIN CA 40 MG TABLET (FP) PO SCH (22:02)
[2020-07-16] MEDS: LATANOPROST 0.005% OPHTH SOLN 2.5ML BOTTLE OU SCH (22:45)
[2020-07-17] MEDS ORDERED: PT OWN MED DRAWER 7, Y5N ONE ×2 (02:24→10:03)
[2020-07-17 08:47] LABS: INR 0.95 (0.83-1.09); PROTHROMBIN TIME (PATIENT) 11.5 SEC (9.7-13.0)
[2020-07-17 08:48] LABS: ACTIVATED PTT 24.9 SECONDS (25.2-36.5)
[2020-07-17] MEDS: ASPIRIN 81 MG CHEWABLE TABLETS PO SCH (09:59)
[2020-07-17] MEDS: LISINOPRIL 10 MG TABLET PO SCH (09:59)
[2020-07-17] MEDS: predniSONE 10 MG TABLET (UD) PO SCH (09:59)
[2020-07-17] MEDS: amLODIPine BESYLATE 10 MG TABLET (FP) PO SCH (09:59)
[2020-07-17] MEDS: CARVEDILOL 6.25 MG TABLET (FP) PO SCH ×2 (09:59→21:44)
[2020-07-17] MEDS: CLOPIDOGREL BISULFATE 75 MG TABLET (FP) PO SCH (09:59)
[2020-07-17] MEDS: FUROSEMIDE 20 MG TABLET (FP) PO SCH (09:59)
[2020-07-17] MEDS: DOCUSATE SODIUM 100 MG CAPSULE (FP) PO SCH (10:00)
[2020-07-17] MEDS: FAMOTIDINE 20 MG TABLET PO SCH (10:00)
[2020-07-17] MEDS: HEPARIN NA (PORCINE) 5,000 UNITS/ML 1ML VIAL SQ SCH ×2 (10:00→21:42)
[2020-07-17] MEDS: ARTIFICIAL TEARS (POLYVINYL ALCOHOL) OPTH DROPS OU SCH ×4 (10:01→21:44)
[2020-07-17] MEDS: BUDESONIDE/FORMETEROL FUMARATE 160/4.5 mcg INHALER IH SCH ×2 (10:01→21:45)
[2020-07-17] MEDS: DOXAZOSIN MESYLATE 2 MG TABLET PO SCH (10:04)
[2020-07-17] MEDS: POLYETHYLENE GLYCOL 3350 119 GM BTL PO SCH (10:04)
[2020-07-17] MEDS: ATORVASTATIN CA 40 MG TABLET (FP) PO SCH (21:44)
[2020-07-17] MEDS: MONTELUKAST NA 10 MG TABLET PO SCH (21:44)
[2020-07-17] MEDS: DONEPEZIL HCL 5 MG TABLET (FP) PO SCH (21:44)
[2020-07-17] MEDS: LATANOPROST 0.005% OPHTH SOLN 2.5ML BOTTLE OU SCH (21:45)
[2020-07-18] MEDS ORDERED: predniSONE 20 MG TABLET (UD) PO ONE ×3 (06:00→18:00)
[2020-07-18 08:55] LABS: BASO % 0.4 % (0-2.0); EOS % 0.7 % (0-4.5); HEMATOCRIT 33.4 % (35.4-49); HEMOGLOBIN 11.2 GM/dL (11.7-16.9); LYMPH % 14.1 % (8-40); MCH 28.9 pg (25.7-33.7); MCHC 33.7 g/dl (32.0-35.9); MEAN CELL VOLUME 85.9 fl (80-96); MEAN PLT VOLUME 6.6 fl (7.5-11.1); MONO % 9.3 % (3.8-10.2); NEUT % 75.5 % (42.8-82.8); PLATELET COUNT 340 K/MM3 (134-434); RBC 3.88 M/mm3 (4.00-5.60); RDW 14.5 % (11.9-15.9); WHITE BLOOD COUNT 11.1 K/mm3 (4.0-10.0)
[2020-07-18 09:12] LABS: POTASSIUM 4.3 mmol/L (3.5-5.1)
[2020-07-18 09:14] LABS: ALBUMIN 2.9 g/dl (3.4-5.0); BLOOD UREA NITROGEN 19.3 mg/dL (7-18); CALCIUM 9.7 mg/dL (8.5-10.1)
[2020-07-18 09:17] LABS: CREATININE 0.7 mg/dL (0.55-1.3)
[2020-07-18 09:18] LABS: BILIRUBIN,TOTAL 0.7 mg/dL (0.2-1)
[2020-07-18] MEDS: DOCUSATE SODIUM 100 MG CAPSULE (FP) PO SCH (09:42)
[2020-07-18] MEDS: FUROSEMIDE 20 MG TABLET (FP) PO SCH (09:42)
[2020-07-18] MEDS: ASPIRIN 81 MG CHEWABLE TABLETS PO SCH (09:42)
[2020-07-18] MEDS: HEPARIN NA (PORCINE) 5,000 UNITS/ML 1ML VIAL SQ SCH ×2 (09:43→22:16)
[2020-07-18] MEDS: POLYETHYLENE GLYCOL 3350 119 GM BTL PO SCH (09:43)
[2020-07-18] MEDS: FAMOTIDINE 20 MG TABLET PO SCH (09:43)
[2020-07-18] MEDS: CLOPIDOGREL BISULFATE 75 MG TABLET (FP) PO SCH (09:43)
[2020-07-18] MEDS: predniSONE 10 MG TABLET (UD) PO SCH (09:45)
[2020-07-18] MEDS ORDERED: PT OWN MED DRAWER 7, Y5N ONE (09:53)
[2020-07-18] MEDS: CARVEDILOL 6.25 MG TABLET (FP) PO SCH ×2 (09:57→22:18)
[2020-07-18] MEDS: LISINOPRIL 10 MG TABLET PO SCH (09:57)
[2020-07-18] MEDS: amLODIPine BESYLATE 10 MG TABLET (FP) PO SCH (09:58)
[2020-07-18] MEDS: DOXAZOSIN MESYLATE 2 MG TABLET PO SCH (09:58)
[2020-07-18] MEDS: ARTIFICIAL TEARS (POLYVINYL ALCOHOL) OPTH DROPS OU SCH ×4 (10:01→22:18)
[2020-07-18] MEDS: BUDESONIDE/FORMETEROL FUMARATE 160/4.5 mcg INHALER IH SCH ×2 (10:01→22:18)
[2020-07-18] MEDS ORDERED: diphenhydrAMINE HCL 25 MG CAPSULE (FP) PO ONE (17:00)
[2020-07-18] MEDS ORDERED: HEPARIN NA (PORCINE) 5,000 UNITS/ML 1ML VIAL ONE (18:11)
[2020-07-18] MEDS ORDERED: LIDOCAINE HCL 1%, 10 MG/ML (20ML VIAL) ONE (18:11)
[2020-07-18] MEDS ORDERED: PROPOFOL 20 ML ONE ×2 (19:40→20:23)
[2020-07-18] MEDS ORDERED: LIDOCAINE HCL/PF 2% SDV 5ML VIAL ONE (19:49)
[2020-07-18] MEDS ORDERED: DEXAMETHASONE SOD PHOSPHATE 4 MG/1 ML VIAL ONE (19:51)
[2020-07-18] MEDS ORDERED: ceFAZolin SODIUM 1 GM VIAL IVPB ONE (19:55)
[2020-07-18] MEDS ORDERED: ceFAZolin SODIUM 1 GM VIAL ONE (19:57)
[2020-07-18] MEDS ORDERED: LIDOCAINE HCL 1%, 10 MG/ML (20ML VIAL) NR ONE ×2 (20:05)
[2020-07-18] MEDS ORDERED: guaiFENesin 200 MG/10 ML 10 ML UNIT-DOSE CUPS PO PRN (21:15)
[2020-07-18] MEDS ORDERED: ALBUTEROL SO4 HFA INHALER IH PRN (21:15)
[2020-07-18] MEDS: DONEPEZIL HCL 5 MG TABLET (FP) PO SCH (22:17)
[2020-07-18] MEDS: MONTELUKAST NA 10 MG TABLET PO SCH (22:18)
[2020-07-18] MEDS: ATORVASTATIN CA 40 MG TABLET (FP) PO SCH (22:18)
[2020-07-18] MEDS: LATANOPROST 0.005% OPHTH SOLN 2.5ML BOTTLE OU SCH (22:19)
[2020-07-19 09:16] LABS: BASO % 0.1 % (0-2.0); HEMATOCRIT 35.7 % (35.4-49); HEMOGLOBIN 11.8 GM/dL (11.7-16.9); LYMPH % 8.8 % (8-40); MCHC 32.9 g/dl (32.0-35.9); MEAN CELL VOLUME 88.1 fl (80-96); MONO % 5.7 % (3.8-10.2); NEUT % 85.4 % (42.8-82.8); PLATELET COUNT 355 K/MM3 (134-434); RBC 4.05 M/mm3 (4.00-5.60); RDW 14.6 % (11.9-15.9); WHITE BLOOD COUNT 10.2 K/mm3 (4.0-10.0)
[2020-07-19] MEDS ORDERED: PT OWN MED DRAWER 7, Y5N ONE (10:06)
[2020-07-19] MEDS: ASPIRIN 81 MG CHEWABLE TABLETS PO SCH (10:22)
[2020-07-19] MEDS: amLODIPine BESYLATE 10 MG TABLET (FP) PO SCH (10:22)
[2020-07-19] MEDS: FAMOTIDINE 20 MG TABLET PO SCH (10:22)
[2020-07-19] MEDS: FUROSEMIDE 20 MG TABLET (FP) PO SCH (10:22)
[2020-07-19] MEDS: DOCUSATE SODIUM 100 MG CAPSULE (FP) PO SCH (10:22)
[2020-07-19] MEDS: predniSONE 10 MG TABLET (UD) PO SCH (10:22)
[2020-07-19] MEDS: CLOPIDOGREL BISULFATE 75 MG TABLET (FP) PO SCH (10:22)
[2020-07-19 10:23] LABS: POTASSIUM 4.6 mmol/L (3.5-5.1)
[2020-07-19] MEDS: CARVEDILOL 6.25 MG TABLET (FP) PO SCH ×2 (10:23→22:04)
[2020-07-19] MEDS: HEPARIN NA (PORCINE) 5,000 UNITS/ML 1ML VIAL SQ SCH ×2 (10:23→22:28)
[2020-07-19] MEDS: DOXAZOSIN MESYLATE 2 MG TABLET PO SCH (10:23)
[2020-07-19] MEDS: LISINOPRIL 10 MG TABLET PO SCH (10:23)
[2020-07-19] MEDS: POLYETHYLENE GLYCOL 3350 119 GM BTL PO SCH (10:39)
[2020-07-19] MEDS: ARTIFICIAL TEARS (POLYVINYL ALCOHOL) OPTH DROPS OU SCH ×3 (10:39→22:18)
[2020-07-19] MEDS: BUDESONIDE/FORMETEROL FUMARATE 160/4.5 mcg INHALER IH SCH ×2 (10:39→22:17)
[2020-07-19 10:49] LABS: CALCIUM 10.1 mg/dL (8.5-10.1)
[2020-07-19 10:50] LABS: ALBUMIN 3.1 g/dl (3.4-5.0); BLOOD UREA NITROGEN 23.5 mg/dL (7-18)
[2020-07-19 10:53] LABS: CREATININE 0.8 mg/dL (0.55-1.3)
[2020-07-19 10:54] LABS: BILIRUBIN,TOTAL 0.7 mg/dL (0.2-1); TOT PROT 6.4 g/dl (6.4-8.2)
[2020-07-19] MEDS: ACETAMINOPHEN 325 MG TABLET (FP) PO PRN ×2 (12:40→22:04)
[2020-07-19] MEDS: ATORVASTATIN CA 40 MG TABLET (FP) PO SCH (22:04)
[2020-07-19] MEDS: MONTELUKAST NA 10 MG TABLET PO SCH (22:04)
[2020-07-19] MEDS: DONEPEZIL HCL 5 MG TABLET (FP) PO SCH (22:04)
[2020-07-19] MEDS: LATANOPROST 0.005% OPHTH SOLN 2.5ML BOTTLE OU SCH (22:18)
[2020-07-20] MEDS: CLOPIDOGREL BISULFATE 75 MG TABLET (FP) PO SCH (09:10)
[2020-07-20] MEDS: DOCUSATE SODIUM 100 MG CAPSULE (FP) PO SCH (09:10)
[2020-07-20] MEDS: LISINOPRIL 10 MG TABLET PO SCH (09:10)
[2020-07-20] MEDS: ASPIRIN 81 MG CHEWABLE TABLETS PO SCH (09:10)
[2020-07-20] MEDS: amLODIPine BESYLATE 10 MG TABLET (FP) PO SCH (09:10)
[2020-07-20] MEDS: FUROSEMIDE 20 MG TABLET (FP) PO SCH (09:10)
[2020-07-20] MEDS: HEPARIN NA (PORCINE) 5,000 UNITS/ML 1ML VIAL SQ SCH ×2 (09:10→22:01)
[2020-07-20] MEDS: ARTIFICIAL TEARS (POLYVINYL ALCOHOL) OPTH DROPS OU SCH ×4 (09:10→22:02)
[2020-07-20] MEDS: FAMOTIDINE 20 MG TABLET PO SCH (09:10)
[2020-07-20] MEDS: CARVEDILOL 6.25 MG TABLET (FP) PO SCH ×2 (09:10→22:01)
[2020-07-20] MEDS: DOXAZOSIN MESYLATE 2 MG TABLET PO SCH (09:12)
[2020-07-20] MEDS: predniSONE 10 MG TABLET (UD) PO SCH (09:12)
[2020-07-20] MEDS ORDERED: PT OWN MED DRAWER 7, Y5N ONE (09:12)
[2020-07-20] MEDS: POLYETHYLENE GLYCOL 3350 119 GM BTL PO SCH (09:16)
[2020-07-20] MEDS: BUDESONIDE/FORMETEROL FUMARATE 160/4.5 mcg INHALER IH SCH ×2 (09:28→22:04)
[2020-07-20] MEDS: MONTELUKAST NA 10 MG TABLET PO SCH (22:01)
[2020-07-20] MEDS: DONEPEZIL HCL 5 MG TABLET (FP) PO SCH (22:02)
[2020-07-20] MEDS: ATORVASTATIN CA 40 MG TABLET (FP) PO SCH (22:02)
[2020-07-20] MEDS: LATANOPROST 0.005% OPHTH SOLN 2.5ML BOTTLE OU SCH (22:05)
[2020-07-20] MEDS: ACETAMINOPHEN 325 MG TABLET (FP) PO PRN (22:21)
[2020-07-21] MEDS: ARTIFICIAL TEARS (POLYVINYL ALCOHOL) OPTH DROPS OU SCH ×4 (09:39→21:11)
[2020-07-21] MEDS: CLOPIDOGREL BISULFATE 75 MG TABLET (FP) PO SCH (09:43)
[2020-07-21] MEDS: LISINOPRIL 10 MG TABLET PO SCH (09:43)
[2020-07-21] MEDS: HEPARIN NA (PORCINE) 5,000 UNITS/ML 1ML VIAL SQ SCH ×2 (09:43→21:10)
[2020-07-21] MEDS: FUROSEMIDE 20 MG TABLET (FP) PO SCH (09:43)
[2020-07-21] MEDS: FAMOTIDINE 20 MG TABLET PO SCH (09:43)
[2020-07-21] MEDS: predniSONE 10 MG TABLET (UD) PO SCH (09:43)
[2020-07-21] MEDS: DOCUSATE SODIUM 100 MG CAPSULE (FP) PO SCH (09:43)
[2020-07-21] MEDS: ASPIRIN 81 MG CHEWABLE TABLETS PO SCH (09:43)
[2020-07-21] MEDS: CARVEDILOL 6.25 MG TABLET (FP) PO SCH ×2 (09:43→21:10)
[2020-07-21] MEDS: amLODIPine BESYLATE 10 MG TABLET (FP) PO SCH (09:43)
[2020-07-21] MEDS ORDERED: PT OWN MED DRAWER 7, Y5N ONE (09:46)
[2020-07-21] MEDS: DOXAZOSIN MESYLATE 2 MG TABLET PO SCH (09:48)
[2020-07-21] MEDS: POLYETHYLENE GLYCOL 3350 119 GM BTL PO SCH (09:51)
[2020-07-21] MEDS: BUDESONIDE/FORMETEROL FUMARATE 160/4.5 mcg INHALER IH SCH ×2 (09:51→21:12)
[2020-07-21] MEDS: ALBUTEROL SO4 0.083% IH SOL 2.5 MG/3 ML VIAL.NEB. NEB PRN (17:48)
[2020-07-21] MEDS: DONEPEZIL HCL 5 MG TABLET (FP) PO SCH (21:10)
[2020-07-21] MEDS: MONTELUKAST NA 10 MG TABLET PO SCH (21:10)
[2020-07-21] MEDS: ATORVASTATIN CA 40 MG TABLET (FP) PO SCH (21:10)
[2020-07-21] MEDS: LATANOPROST 0.005% OPHTH SOLN 2.5ML BOTTLE OU SCH (21:12)
[2020-07-22] MEDS: CARVEDILOL 6.25 MG TABLET (FP) PO SCH ×2 (10:31→22:48)
[2020-07-22] MEDS ORDERED: PT OWN MED DRAWER 7, Y5N ONE (10:31)
[2020-07-22] MEDS: HEPARIN NA (PORCINE) 5,000 UNITS/ML 1ML VIAL SQ SCH ×2 (10:32→22:50)
[2020-07-22] MEDS: CLOPIDOGREL BISULFATE 75 MG TABLET (FP) PO SCH (10:32)
[2020-07-22] MEDS: FUROSEMIDE 20 MG TABLET (FP) PO SCH (10:32)
[2020-07-22] MEDS: FAMOTIDINE 20 MG TABLET PO SCH (10:32)
[2020-07-22] MEDS: predniSONE 10 MG TABLET (UD) PO SCH (10:32)
[2020-07-22] MEDS: LISINOPRIL 10 MG TABLET PO SCH (10:32)
[2020-07-22] MEDS: DOCUSATE SODIUM 100 MG CAPSULE (FP) PO SCH (10:32)
[2020-07-22] MEDS: DOXAZOSIN MESYLATE 2 MG TABLET PO SCH (10:32)
[2020-07-22] MEDS: ARTIFICIAL TEARS (POLYVINYL ALCOHOL) OPTH DROPS OU SCH ×5 (10:32→22:50)
[2020-07-22] MEDS: ASPIRIN 81 MG CHEWABLE TABLETS PO SCH (10:32)
[2020-07-22] MEDS: amLODIPine BESYLATE 10 MG TABLET (FP) PO SCH (10:32)
[2020-07-22] MEDS: POLYETHYLENE GLYCOL 3350 119 GM BTL PO SCH (10:33)
[2020-07-22] MEDS: BUDESONIDE/FORMETEROL FUMARATE 160/4.5 mcg INHALER IH SCH ×2 (10:33→22:50)
[2020-07-22] MEDS: DONEPEZIL HCL 5 MG TABLET (FP) PO SCH (22:48)
[2020-07-22] MEDS: ATORVASTATIN CA 40 MG TABLET (FP) PO SCH (22:48)
[2020-07-22] MEDS: MONTELUKAST NA 10 MG TABLET PO SCH (22:48)
[2020-07-22] MEDS: LATANOPROST 0.005% OPHTH SOLN 2.5ML BOTTLE OU SCH (22:50)
[2020-07-23] MEDS: ACETAMINOPHEN 325 MG TABLET (FP) PO PRN (00:09)
[2020-07-23] MEDS: ALBUTEROL SO4 0.083% IH SOL 2.5 MG/3 ML VIAL.NEB. NEB PRN (00:48)
[2020-07-23] MEDS: FAMOTIDINE 20 MG TABLET PO SCH (09:39)
[2020-07-23] MEDS: predniSONE 10 MG TABLET (UD) PO SCH (09:39)
[2020-07-23] MEDS: HEPARIN NA (PORCINE) 5,000 UNITS/ML 1ML VIAL SQ SCH (09:39)
[2020-07-23] MEDS: LISINOPRIL 10 MG TABLET PO SCH (09:39)
[2020-07-23] MEDS: ASPIRIN 81 MG CHEWABLE TABLETS PO SCH (09:39)
[2020-07-23] MEDS: FUROSEMIDE 20 MG TABLET (FP) PO SCH (09:39)
[2020-07-23] MEDS: DOCUSATE SODIUM 100 MG CAPSULE (FP) PO SCH (09:39)
[2020-07-23] MEDS: CARVEDILOL 6.25 MG TABLET (FP) PO SCH (09:39)
[2020-07-23] MEDS: CLOPIDOGREL BISULFATE 75 MG TABLET (FP) PO SCH (09:39)
[2020-07-23] MEDS: amLODIPine BESYLATE 10 MG TABLET (FP) PO SCH (09:39)
[2020-07-23] MEDS: DOXAZOSIN MESYLATE 2 MG TABLET PO SCH (09:40)
[2020-07-23] MEDS: POLYETHYLENE GLYCOL 3350 119 GM BTL PO SCH (09:40)
[2020-07-23] MEDS: BUDESONIDE/FORMETEROL FUMARATE 160/4.5 mcg INHALER IH SCH (09:40)
[2020-07-23] MEDS: ARTIFICIAL TEARS (POLYVINYL ALCOHOL) OPTH DROPS OU SCH (09:41)
[2020-07-23 11:36] VITALS: BP 131/78; PULSE 70; TEMP 97.5
== END 2020-07-23 11:22 | DRG 300 ==
LOC: JER 11:14 → JERBED 11:56 → J6S 21:20
PROVIDERS: ADMIT Internal Medicine; ATTEND Internal Medicine
PROC: B40GYZZ Plain Radiography of Left Lower Extremity Arteries using Other Contrast (ICD-10-PCS; principal; 2020-07-18 18:00)
DX: I70.218 Atherosclerosis of native arteries of extremities with intermittent claudication, other extremity (principal); L97.528 Non-pressure chronic ulcer of other part of left foot with other specified severity; R64 Cachexia; Z68.1 Body mass index [BMI] 19.9 or less, adult; I50.32 Chronic diastolic (congestive) heart failure; I69.359 Hemiplegia and hemiparesis following cerebral infarction affecting unspecified side; J98.11 Atelectasis; J44.9 Chronic obstructive pulmonary disease, unspecified; E78.5 Hyperlipidemia, unspecified; I11.0 Hypertensive heart disease with heart failure; N40.0 Benign prostatic hyperplasia without lower urinary tract symptoms; R73.03 Prediabetes; K59.09 Other constipation; F03.90 Unspecified dementia, unspecified severity, without behavioral disturbance, psychotic disturbance, mood disturbance, and anxiety; I83.003 Varicose veins of unspecified lower extremity with ulcer of ankle
CPT/HCPCS: 36415; 71045-TC-FY; 76000-TC-FY; 80048; 80053; 80061; 83036; 83721; 83880; 85025; 85610; 85730; 93005; 93010; 93306-TC; 93925-TC; 94640; 94760; 99285-25; C9803; G0463-25; J1644; U0003

== ENCOUNTER 2020-09-09 21:34 | Inpatient (IN) | payer OTHER, BC ==
[2020-09-09] MEDS ORDERED: methylPREDNISolone NA SUCC 125 MG/2 ML VIAL IVPB ONE (21:59)
[2020-09-09] MEDS ORDERED: FUROSEMIDE 40 MG/4 ML INJECTABLE VIAL IVPUSH ONE (22:01)
[2020-09-09] MEDS ORDERED: ALBUTEROL SO4 2.5/IPRATROPIUM 0.5 INH SOL 3 ML VIAL.NEB. NEB ONE (22:13)
[2020-09-09] MEDS ORDERED: RAPID SEQUENCE INTUBATION KIT NR ONE (22:46)
[2020-09-09] MEDS ORDERED: ROCURONIUM BROMIDE 100 MG/10 ML VIAL ONE (22:49)
[2020-09-09 22:52] LABS: VENOUS BASE EXCESS 5.9 mmol/L (-2-2); VENOUS O2 SATURATION 27.4 % (70-80)
[2020-09-09 22:54] LABS: BASO % 0.1 % (0-2.0); HEMATOCRIT 44.2 % (35.4-49); HEMOGLOBIN 14.1 GM/dL (11.7-16.9); LYMPH % 5.6 % (8-40); MCH 28.2 pg (25.7-33.7); MCHC 31.9 g/dl (32.0-35.9); MEAN CELL VOLUME 88.2 fl (80-96); MEAN PLT VOLUME 7.4 fl (7.5-11.1); MONO % 9.4 % (3.8-10.2); NEUT % 84.9 % (42.8-82.8); PLATELET COUNT 302 K/MM3 (134-434); RBC 5.01 M/mm3 (4.00-5.60); RDW 13.9 % (11.9-15.9); WHITE BLOOD COUNT 22.4 K/mm3 (4.0-10.0)
[2020-09-09 22:56] LABS: VENOUS PCO2 126.2 mmHg (38-52); VENOUS PH 7.124 (7.310-7.410)
[2020-09-09 23:04] LABS: INR 0.96 (0.83-1.09); PROTHROMBIN TIME (PATIENT) 11.6 SEC (9.7-13.0)
[2020-09-09 23:13] LABS: CHLORIDE 98 mmol/L (98-107); SODIUM 138 mmol/L (136-145)
[2020-09-09] MEDS ORDERED: MIDAZOLAM 100 MG/100 ML MG IVPB ONE (23:14)
[2020-09-09 23:15] LABS: CALCIUM 9.5 mg/dL (8.5-10.1)
[2020-09-09 23:16] LABS: ANION GAP 4 MMOL/L (8-16); BLOOD UREA NITROGEN 26.2 mg/dL (7-18); CO2 36 mmol/L (21-32); GLUCOSE,RANDOM 117 mg/dL (74-106)
[2020-09-09] MEDS ORDERED: SODIUM CHLORIDE 0.9% 500 ML INFUS.BAG IV ONE (23:17)
[2020-09-09] MEDS ORDERED: fentaNYL CITRATE 250 MCG/5 ML VIAL ONE (23:17)
[2020-09-09 23:18] LABS: SGPT/ALT 25 U/L (13-61)
[2020-09-09 23:19] LABS: CREATININE 1.6 mg/dL (0.55-1.3); SGOT/AST 60 U/L (15-37)
[2020-09-09 23:20] LABS: BILIRUBIN,TOTAL 1.1 mg/dL (0.2-1); TOT PROT 7.5 g/dl (6.4-8.2)
[2020-09-09 23:21] LABS: ALK PHOS 88 U/L (45-117)
[2020-09-09] MEDS ORDERED: INSULIN REGULAR HUMAN 100 UNITS/ML *VIAL IVPUSH ONE (23:48)
[2020-09-09] MEDS ORDERED: DEXTROSE 50%-WATER - 25 GM/50 ML VIAL IVPUSH ONE (23:48)
[2020-09-09 23:50] LABS: N-TERMINAL BNP 587.6 pg/ml (5-450)
[2020-09-10] MEDS: MIDAZOLAM 100 MG/100 ML MG IVPB SCH (00:03)
[2020-09-10] MEDS: FENTANYL IVPB 500 MCG/100 ML BAG IVPB SCH (00:12)
[2020-09-10] MEDS ORDERED: DEXTROSE 50%-WATER 25 GM/50 ML DISP.SYRIN ONE (00:14)
[2020-09-10] MEDS ORDERED: methylPREDNISolone NA SUCC 125 MG/2 ML VIAL ONE (00:14)
[2020-09-10] MEDS ORDERED: VANCOMYCIN 1 GM in D5W (PRE-DOCKED) 1,000 MG/250 ML IVPB ONE (00:43)
[2020-09-10] MEDS ORDERED: PIPERACILLIN/TAZOB 3.375 GM 3.375 GM in DEXTROSE 5%-WATER - 50 ML IVPB ONE (00:43)
[2020-09-10 00:50] LABS: ANISOCYTOSIS 0; MACROCYTOSIS 0; PLATELET ESTIMATE NORMAL
[2020-09-10] MEDS ORDERED: SODIUM CHLORIDE 1,000 ML IV SCH (01:00)
[2020-09-10 01:02] LABS: EPI CELLS >36 /uL (0-25.1); HYALINE CASTS 35 /uL (0-3.1); URINE APPEARANCE CLEAR; URINE BACTERIA 86 /uL (0-1359); URINE BILIRUBIN 1+ (NEGATIVE); URINE COLOR DK YELLOW; URINE GLUCOSE (UA) NEGATIVE (NEGATIVE); URINE KETONE NEGATIVE (NEGATIVE); URINE LEUK ESTERASE TRACE (NEGATIVE); URINE NITRITE NEGATIVE (NEGATIVE); URINE PROTEIN 1+ (NEGATIVE); URINE RBC 29 /uL (0-23.9); URINE WBC 37 /uL (0-25.8)
[2020-09-10] MEDS ORDERED: SODIUM POLYSTYRENE SULFONATE 15 GM/60 ML BOTTLE PO ONE (01:04)
[2020-09-10 01:12] LABS: ARTERIAL BLD GAS O2 SATURATION 94.8 mmHg (95-98); ARTERIAL BLOOD GAS BASE EXCESS 2.9 mmol/L (-2-2); ARTERIAL BLOOD GAS PO2 86.4 mmHg (80-100); ARTERIAL BLOOD GAS pH 7.263 (7.350-7.450)
[2020-09-10] MEDS ORDERED: VANCOMYCIN 1 GRAM (PRE-DOCKED) 1,000 MG/250 ML BAG IVPB ONE ×2 (01:15→16:20)
[2020-09-10 01:16] LABS: ALLENS TEST POSITIVE
[2020-09-10 01:17] LABS: VENT MODE A/C VC
[2020-09-10 01:18] LABS: VENT RATE 20
[2020-09-10] MEDS ORDERED: PIPERACILLIN/TAZOB 3.375 GM 3.375 GM/50 ML BAG IVPB ONE (01:18)
[2020-09-10] MEDS ORDERED: NOREPINEPHRINE BITARTRATE 4 MG/4 ML ML IV ONE (01:44)
[2020-09-10] MEDS ORDERED: NOREPINEPHRINE NS PREMIX 16,000 MCG/500 ML BAG IVPB SCH (01:45)
[2020-09-10] MEDS: NOREPINEPHRINE BITARTRATE 8,000 MCG/500 ML BAG IVPB SCH (01:45)
[2020-09-10] MEDS ORDERED: NOREPINEPHRINE BITARTRATE 8,000 MCG in DEXTROSE 5%-WATER - 492 ML IV SCH (02:00)
[2020-09-10] MEDS ORDERED: MIDAZOLAM IN 0.9 % SOD.CHLORID 1 MG/1 ML PLAST..BAG ONE (04:01)
[2020-09-10 05:39] LABS: ARTERIAL BLD GAS O2 SATURATION 99.5 mmHg (95-98); ARTERIAL BLOOD GAS BASE EXCESS 2.1 mmol/L (-2-2); ARTERIAL BLOOD GAS PO2 242.7 mmHg (80-100); ARTERIAL BLOOD GAS pH 7.351 (7.350-7.450)
[2020-09-10 05:44] LABS: ALLENS TEST POSITIVE; VENT MODE A/C VC; VENT RATE 20
[2020-09-10 06:26] LABS: HEMATOCRIT 38.3 % (35.4-49); HEMOGLOBIN 12.5 GM/dL (11.7-16.9); LYMPH % 2.7 % (8-40); MCH 28.4 pg (25.7-33.7); MCHC 32.7 g/dl (32.0-35.9); MEAN CELL VOLUME 86.9 fl (80-96); MEAN PLT VOLUME 7.5 fl (7.5-11.1); MONO % 5.6 % (3.8-10.2); NEUT % 91.7 % (42.8-82.8); PLATELET COUNT 267 K/MM3 (134-434); RBC 4.41 M/mm3 (4.00-5.60); WHITE BLOOD COUNT 22.3 K/mm3 (4.0-10.0)
[2020-09-10] MEDS ORDERED: ASPIRIN 81 MG CHEWABLE TABLETS PO ONE (06:29)
[2020-09-10 06:36] LABS: INR 1.01 (0.83-1.09); PROTHROMBIN TIME (PATIENT) 12.2 SEC (9.7-13.0)
[2020-09-10 06:39] LABS: ACTIVATED PTT 22.6 SECONDS (25.2-36.5); MAGNESIUM 1.5 mg/dL (1.8-2.4)
[2020-09-10] MEDS ORDERED: CLOPIDOGREL BISULFATE 75 MG TABLET (FP) PO ONE (06:46)
[2020-09-10 06:53] LABS: LACTIC ACID 3.5 mmol/L (0.4-2.0)
[2020-09-10 07:57] LABS: CHLORIDE 101 mmol/L (98-107); SODIUM 140 mmol/L (136-145)
[2020-09-10 07:59] LABS: ALBUMIN 2.5 g/dl (3.4-5.0); ANION GAP 8 MMOL/L (8-16); BLOOD UREA NITROGEN 27.4 mg/dL (7-18); CALCIUM 8.6 mg/dL (8.5-10.1); CO2 31 mmol/L (21-32)
[2020-09-10 08:00] LABS: GLUCOSE,RANDOM 239 mg/dL (74-106)
[2020-09-10 08:02] LABS: SGOT/AST 22 U/L (15-37); SGPT/ALT 19 U/L (13-61)
[2020-09-10 08:03] LABS: CREATININE 1.5 mg/dL (0.55-1.3)
[2020-09-10 08:04] LABS: BILIRUBIN,TOTAL 1.2 mg/dL (0.2-1); TOT PROT 5.7 g/dl (6.4-8.2)
[2020-09-10 08:05] LABS: ALK PHOS 68 U/L (45-117)
[2020-09-10 11:29] LABS: ANISOCYTOSIS 0; HELMET CELLS 0; HOWELL-JOLLY BODIES 0; MACROCYTOSIS 0; OVALOCYTE 0; PLATELET ESTIMATE NORMAL; ROULEAU 0; SICKELED CELLS 0; TARGET CELLS 0; TEAR DROP CELLS 0; TOXIC GRANULATION 0
[2020-09-10] MEDS ORDERED: PIPERACILLIN/TAZOB 3.375 GM 3.375 GM in DEXTROSE 5%-WATER - 50 ML IVPB SCH (13:30)
[2020-09-10] MEDS ORDERED: DEXTROSE 5%-WATER - 50 ML IVPB ONE ×2 (14:17→17:30)
[2020-09-10] MEDS ORDERED: PIPERACILLIN/TAZOBACTAM 3.375 GM VIAL IVPB ONE ×2 (14:17→17:30)
[2020-09-10] MEDS: MUPIROCIN 2% TOPICAL OINTMENT FOR DECOLONIZATION NS SCH ×2 (16:31→22:39)
[2020-09-10] MEDS: SODIUM CHLORIDE 1,000 ML IV SCH (18:22)
[2020-09-10] MEDS: PIPERACILLIN/TAZOB 3.375 GM 3.375 GM in DEXTROSE 5%-WATER - 50 ML IVPB SCH (18:22)
[2020-09-10 19:06] LABS: URINE APPEARANCE CLEAR; URINE BILIRUBIN NEGATIVE (NEGATIVE); URINE COLOR DK YELLOW; URINE GLUCOSE (UA) NEGATIVE (NEGATIVE); URINE KETONE NEGATIVE (NEGATIVE); URINE LEUK ESTERASE NEGATIVE (NEGATIVE); URINE NITRITE NEGATIVE (NEGATIVE); URINE PROTEIN NEGATIVE (NEGATIVE)
[2020-09-10 21:42] LABS: INR 1.15 (0.83-1.09); PROTHROMBIN TIME (PATIENT) 14.1 SEC (9.7-13.0)
[2020-09-10 22:02] LABS: LACTIC ACID 2.1 mmol/L (0.4-2.0)
[2020-09-10] MEDS: CHLORHEXIDINE GLUCONATE 4% CLEANSER FOR DECOLONIZATION TP SCH (22:39)
[2020-09-11] MEDS: FENTANYL IVPB 500 MCG/100 ML BAG IVPB SCH (02:00)
[2020-09-11] MEDS ORDERED: PIPERACILLIN/TAZOBACTAM 3.375 GM VIAL IVPB ONE ×3 (02:01→18:25)
[2020-09-11] MEDS ORDERED: DEXTROSE 5%-WATER - 50 ML IVPB ONE ×3 (02:01→18:25)
[2020-09-11] MEDS: PIPERACILLIN/TAZOB 3.375 GM 3.375 GM in DEXTROSE 5%-WATER - 50 ML IVPB SCH ×3 (02:03→19:15)
[2020-09-11] MEDS: MIDAZOLAM 100 MG/100 ML MG IVPB SCH (02:40)
[2020-09-11] MEDS: NOREPINEPHRINE BITARTRATE 8,000 MCG/500 ML BAG IVPB SCH (02:42)
[2020-09-11 06:10] LABS: ARTERIAL BLD GAS O2 SATURATION 99.7 mmHg (95-98); ARTERIAL BLOOD GAS BASE EXCESS 3.7 mmol/L (-2-2); ARTERIAL BLOOD GAS PO2 289.4 mmHg (80-100); ARTERIAL BLOOD GAS pH 7.424 (7.350-7.450)
[2020-09-11 06:59] LABS: ALLENS TEST POSITIVE
[2020-09-11 07:00] LABS: VENT MODE A/C VC; VENT RATE 20
[2020-09-11 07:15] LABS: HEMATOCRIT 33.9 % (35.4-49); HEMOGLOBIN 11.3 GM/dL (11.7-16.9); LYMPH % 2.5 % (8-40); MCH 28.5 pg (25.7-33.7); MCHC 33.2 g/dl (32.0-35.9); MEAN CELL VOLUME 86.1 fl (80-96); MEAN PLT VOLUME 7.9 fl (7.5-11.1); MONO % 8.5 % (3.8-10.2); PLATELET COUNT 247 K/MM3 (134-434); RBC 3.94 M/mm3 (4.00-5.60); RDW 14.1 % (11.9-15.9); WHITE BLOOD COUNT 21.3 K/mm3 (4.0-10.0)
[2020-09-11] MEDS ORDERED: POTASSIUM CHLORIDE ORAL LIQUID 20 MEQ/15 ML PO ONE (08:29)
[2020-09-11 08:33] LABS: BLOOD UREA NITROGEN 36.2 mg/dL (7-18); CALCIUM 8.9 mg/dL (8.5-10.1)
[2020-09-11 08:34] LABS: ALBUMIN 2.4 g/dl (3.4-5.0); LACTIC ACID 2.2 mmol/L (0.4-2.0); MAGNESIUM 1.7 mg/dL (1.8-2.4)
[2020-09-11] MEDS ORDERED: MAGNESIUM SULF 50% (8.12 MEQ/2 ML-1 GM VIAL) IVPB ONE ×2 (08:36→08:45)
[2020-09-11 08:37] LABS: CREATININE 1.2 mg/dL (0.55-1.3); PHOSPHOROUS 2.3 mg/dL (2.5-4.9)
[2020-09-11 08:38] LABS: BILIRUBIN,TOTAL 0.8 mg/dL (0.2-1); TOT PROT 5.5 g/dl (6.4-8.2)
[2020-09-11] MEDS ORDERED: KCL 10 MEQ IVPB 10 MEQ/100 ML INFUS.BAG IVPB SCH (08:45)
[2020-09-11] MEDS ORDERED: POTASSIUM PHOSPHATE 30 MM in SODIUM CHLORIDE 250 ML IVPB ONE (08:45)
[2020-09-11] MEDS ORDERED: PT OWN MED DRAWER 7, Y5N ONE (09:07)
[2020-09-11] MEDS: KCL 10 MEQ IVPB 10 MEQ/100 ML INFUS.BAG IVPB SCH ×3 (09:37→14:00)
[2020-09-11] MEDS: MUPIROCIN 2% TOPICAL OINTMENT FOR DECOLONIZATION NS SCH ×2 (10:30→22:00)
[2020-09-11 10:57] LABS: ANISOCYTOSIS 0; HELMET CELLS 0; HOWELL-JOLLY BODIES 0; MACROCYTOSIS 0; OVALOCYTE 0; PLATELET ESTIMATE NORMAL; ROULEAU 0; SICKELED CELLS 0; TARGET CELLS 0; TEAR DROP CELLS 0; TOXIC GRANULATION 0
[2020-09-11] MEDS: PANTOPRAZOLE SODIUM 40 MG VIAL IVPUSH SCH (14:04)
[2020-09-11] MEDS: HEPARIN NA (PORCINE) 5,000 UNITS/ML 1ML VIAL SQ SCH ×2 (14:04)
[2020-09-11 15:37] LABS: LACTIC ACID 2.2 mmol/L (0.4-2.0)
[2020-09-11] MEDS: SODIUM CHLORIDE 1,000 ML IV SCH (19:15)
[2020-09-11] MEDS: CHLORHEXIDINE GLUCONATE 4% CLEANSER FOR DECOLONIZATION TP SCH (22:00)
[2020-09-12] MEDS: HEPARIN NA (PORCINE) 5,000 UNITS/ML 1ML VIAL SQ SCH ×4 (00:03→21:30)
[2020-09-12] MEDS ORDERED: DEXTROSE 5%-WATER - 50 ML IVPB ONE ×3 (01:23→15:13)
[2020-09-12] MEDS ORDERED: PIPERACILLIN/TAZOBACTAM 3.375 GM VIAL IVPB ONE ×3 (01:23→15:13)
[2020-09-12] MEDS: FENTANYL IVPB 500 MCG/100 ML BAG IVPB SCH (01:34)
[2020-09-12] MEDS: MIDAZOLAM 100 MG/100 ML MG IVPB SCH (01:35)
[2020-09-12] MEDS: NOREPINEPHRINE BITARTRATE 8,000 MCG/500 ML BAG IVPB SCH (01:36)
[2020-09-12] MEDS: PIPERACILLIN/TAZOB 3.375 GM 3.375 GM in DEXTROSE 5%-WATER - 50 ML IVPB SCH ×3 (01:36→18:46)
[2020-09-12 06:50] LABS: BASO % 0.1 % (0-2.0); EOS % 0.1 % (0-4.5); HEMATOCRIT 31.9 % (35.4-49); HEMOGLOBIN 10.7 GM/dL (11.7-16.9); LYMPH % 4.4 % (8-40); MCH 28.6 pg (25.7-33.7); MCHC 33.6 g/dl (32.0-35.9); MEAN CELL VOLUME 85.1 fl (80-96); MEAN PLT VOLUME 7.5 fl (7.5-11.1); MONO % 6.4 % (3.8-10.2); PLATELET COUNT 225 K/MM3 (134-434); RBC 3.75 M/mm3 (4.00-5.60); RDW 13.9 % (11.9-15.9); WHITE BLOOD COUNT 16.2 K/mm3 (4.0-10.0)
[2020-09-12 07:14] LABS: ALBUMIN 2.2 g/dl (3.4-5.0); BLOOD UREA NITROGEN 21.4 mg/dL (7-18); CALCIUM 8.5 mg/dL (8.5-10.1); MAGNESIUM 1.9 mg/dL (1.8-2.4)
[2020-09-12 07:18] LABS: CREATININE 0.7 mg/dL (0.55-1.3); PHOSPHOROUS 1.9 mg/dL (2.5-4.9)
[2020-09-12 07:19] LABS: BILIRUBIN,TOTAL 0.8 mg/dL (0.2-1); TOT PROT 5.1 g/dl (6.4-8.2)
[2020-09-12 07:35] LABS: LACTIC ACID 2.3 mmol/L (0.4-2.0)
[2020-09-12] MEDS ORDERED: AMINO ACIDS/PROTEIN HYDROLYS 30 ML LIQUID.PKT PO SCH (08:00)
[2020-09-12] MEDS ORDERED: SODIUM PHOSPHATE - 15 MM in SODIUM CHLORIDE 250 ML IVPB ONE (08:38)
[2020-09-12] MEDS: MUPIROCIN 2% TOPICAL OINTMENT FOR DECOLONIZATION NS SCH ×2 (11:12→21:30)
[2020-09-12] MEDS: PANTOPRAZOLE SODIUM 40 MG VIAL IVPUSH SCH (11:12)
[2020-09-12 15:08] LABS: MYCOPLASMA PNEUMONIAE,IG G AB <100 U/mL (0-99); MYCOPLASMA PNEUMONIAE,IGM AB <770 U/mL (0-769)
[2020-09-12] MEDS: ALBUTEROL SO4 2.5/IPRATROPIUM 0.5 INH SOL 3 ML VIAL.NEB. NEB SCH ×2 (15:55→21:00)
[2020-09-12] MEDS: SODIUM CHLORIDE 1,000 ML IV SCH (18:47)
[2020-09-12] MEDS: CHLORHEXIDINE GLUCONATE 4% CLEANSER FOR DECOLONIZATION TP SCH (21:30)
[2020-09-13] MEDS ORDERED: DEXTROSE 5%-WATER - 50 ML IVPB ONE ×3 (00:37→17:38)
[2020-09-13] MEDS ORDERED: PIPERACILLIN/TAZOBACTAM 3.375 GM VIAL IVPB ONE ×3 (00:37→17:37)
[2020-09-13] MEDS: ALBUTEROL SO4 2.5/IPRATROPIUM 0.5 INH SOL 3 ML VIAL.NEB. NEB SCH ×6 (01:00→20:30)
[2020-09-13] MEDS: PIPERACILLIN/TAZOB 3.375 GM 3.375 GM in DEXTROSE 5%-WATER - 50 ML IVPB SCH ×3 (01:30→17:40)
[2020-09-13] MEDS: HEPARIN NA (PORCINE) 5,000 UNITS/ML 1ML VIAL SQ SCH ×3 (06:14→22:15)
[2020-09-13 07:20] LABS: BASO % 0.1 % (0-2.0); EOS % 0.4 % (0-4.5); HEMATOCRIT 34.8 % (35.4-49); HEMOGLOBIN 11.6 GM/dL (11.7-16.9); LYMPH % 5.1 % (8-40); MCH 28.7 pg (25.7-33.7); MCHC 33.4 g/dl (32.0-35.9); MEAN CELL VOLUME 85.9 fl (80-96); MEAN PLT VOLUME 7.6 fl (7.5-11.1); MONO % 6.4 % (3.8-10.2); PLATELET COUNT 217 K/MM3 (134-434); RBC 4.05 M/mm3 (4.00-5.60); RDW 14.3 % (11.9-15.9); WHITE BLOOD COUNT 14.1 K/mm3 (4.0-10.0)
[2020-09-13 07:36] LABS: ALBUMIN 2.4 g/dl (3.4-5.0); BLOOD UREA NITROGEN 15.3 mg/dL (7-18); CALCIUM 8.9 mg/dL (8.5-10.1); MAGNESIUM 1.9 mg/dL (1.8-2.4)
[2020-09-13 07:40] LABS: CREATININE 0.6 mg/dL (0.55-1.3); PHOSPHOROUS 2.3 mg/dL (2.5-4.9)
[2020-09-13 07:41] LABS: BILIRUBIN,TOTAL 1.1 mg/dL (0.2-1); TOT PROT 5.7 g/dl (6.4-8.2)
[2020-09-13] MEDS: PANTOPRAZOLE SODIUM 40 MG VIAL IVPUSH SCH (10:03)
[2020-09-13] MEDS: SODIUM CHLORIDE 1,000 ML IV SCH (10:04)
[2020-09-13] MEDS ORDERED: PT OWN MED DRAWER 7, Y5N ONE ×4 (10:41→17:37)
[2020-09-13] MEDS: MUPIROCIN 2% TOPICAL OINTMENT FOR DECOLONIZATION NS SCH ×2 (12:00→22:15)
[2020-09-13] MEDS ORDERED: FUROSEMIDE 40 MG/4 ML INJECTABLE VIAL IVPUSH ONE (13:32)
[2020-09-13] MEDS: BUDESONIDE/FORMETEROL FUMARATE 160/4.5 mcg INHALER IH SCH ×2 (15:30→22:16)
[2020-09-13] MEDS ORDERED: NAPH,MB-DB/K PH,MBDB POWDER PACKET PO ONE (15:45)
[2020-09-13] MEDS ORDERED: SODIUM PHOSPHATE - 20 MM in DEXTROSE 5%-WATER - 250 ML IVPB ONE (16:55)
[2020-09-13] MEDS ORDERED: ACETAMINOPHEN 1000 MG/100 ML VIAL (NON FORMULARY) IVPB ONE (17:28)
[2020-09-13] MEDS: CHLORHEXIDINE GLUCONATE 4% CLEANSER FOR DECOLONIZATION TP SCH (22:15)
[2020-09-14] MEDS: ALBUTEROL SO4 2.5/IPRATROPIUM 0.5 INH SOL 3 ML VIAL.NEB. NEB SCH ×6 (00:16→20:30)
[2020-09-14] MEDS ORDERED: DEXTROSE 5%-WATER - 50 ML IVPB ONE ×3 (01:38→16:55)
[2020-09-14] MEDS ORDERED: PIPERACILLIN/TAZOBACTAM 3.375 GM VIAL IVPB ONE ×3 (01:38→16:54)
[2020-09-14] MEDS: PIPERACILLIN/TAZOB 3.375 GM 3.375 GM in DEXTROSE 5%-WATER - 50 ML IVPB SCH ×3 (02:15→17:06)
[2020-09-14] MEDS: HEPARIN NA (PORCINE) 5,000 UNITS/ML 1ML VIAL SQ SCH ×4 (06:09→21:08)
[2020-09-14 07:02] LABS: BASO % 0.1 % (0-2.0); EOS % 0.4 % (0-4.5); HEMATOCRIT 34.6 % (35.4-49); HEMOGLOBIN 11.8 GM/dL (11.7-16.9); LYMPH % 7.2 % (8-40); MCH 28.9 pg (25.7-33.7); MCHC 34.1 g/dl (32.0-35.9); MEAN CELL VOLUME 84.8 fl (80-96); MEAN PLT VOLUME 7.6 fl (7.5-11.1); MONO % 8.9 % (3.8-10.2); NEUT % 83.4 % (42.8-82.8); PLATELET COUNT 232 K/MM3 (134-434); RBC 4.08 M/mm3 (4.00-5.60); WHITE BLOOD COUNT 12.3 K/mm3 (4.0-10.0)
[2020-09-14 07:12] LABS: CHLORIDE 109 mmol/L (98-107); SODIUM 150 mmol/L (136-145)
[2020-09-14 07:14] LABS: ALBUMIN 2.7 g/dl (3.4-5.0); BLOOD UREA NITROGEN 20.8 mg/dL (7-18); CALCIUM 9.2 mg/dL (8.5-10.1); CO2 34 mmol/L (21-32); GLUCOSE,RANDOM 94 mg/dL (74-106)
[2020-09-14 07:17] LABS: CREATININE 0.7 mg/dL (0.55-1.3); PHOSPHOROUS 2.3 mg/dL (2.5-4.9); SGPT/ALT 20 U/L (13-61)
[2020-09-14 07:18] LABS: SGOT/AST 30 U/L (15-37)
[2020-09-14 07:19] LABS: BILIRUBIN,TOTAL 1.5 mg/dL (0.2-1); TOT PROT 5.9 g/dl (6.4-8.2)
[2020-09-14 07:20] LABS: ALK PHOS 72 U/L (45-117)
[2020-09-14 07:21] LABS: ANION GAP 7 MMOL/L (8-16)
[2020-09-14] MEDS ORDERED: PT OWN MED DRAWER 7, Y5N ONE ×2 (09:19→10:12)
[2020-09-14] MEDS: BUDESONIDE/FORMETEROL FUMARATE 160/4.5 mcg INHALER IH SCH ×2 (09:23→21:08)
[2020-09-14] MEDS: PANTOPRAZOLE SODIUM 40 MG VIAL IVPUSH SCH (09:23)
[2020-09-14] MEDS: MUPIROCIN 2% TOPICAL OINTMENT FOR DECOLONIZATION NS SCH ×2 (09:24→21:08)
[2020-09-14] MEDS ORDERED: POTASSIUM PHOSPHATE 30 MM in DEXTROSE 5%-WATER - 250 ML IVPB ONE (10:00)
[2020-09-14] MEDS ORDERED: OCULAR LUBRICANT OPHTHALMIC OINTMENT 7 GM TUBE OU PRN (11:06)
[2020-09-14] MEDS: DEXMEDETOMIDINE IN 0.9 % NACL 400 MCG/100 ML VIAL IVPB SCH (12:30)
[2020-09-14] MEDS ORDERED: AMINO ACIDS 4.25%/D5W 1,000 ML IV SCH (17:15)
[2020-09-14] MEDS ORDERED: KCL 10 MEQ IVPB 10 MEQ/100 ML INFUS.BAG IVPB SCH (17:15)
[2020-09-14] MEDS: OCULAR LUBRICANT OPHTHALMIC OINTMENT 7 GM TUBE OU SCH (21:08)
[2020-09-14] MEDS: CHLORHEXIDINE GLUCONATE 4% CLEANSER FOR DECOLONIZATION TP SCH (21:08)
[2020-09-15] MEDS ORDERED: DEXTROSE 5%-WATER - 50 ML IVPB ONE ×4 (00:23→23:49)
[2020-09-15] MEDS ORDERED: PIPERACILLIN/TAZOBACTAM 3.375 GM VIAL IVPB ONE ×4 (00:23→23:49)
[2020-09-15] MEDS: PIPERACILLIN/TAZOB 3.375 GM 3.375 GM in DEXTROSE 5%-WATER - 50 ML IVPB SCH ×3 (01:05→18:08)
[2020-09-15] MEDS: ALBUTEROL SO4 2.5/IPRATROPIUM 0.5 INH SOL 3 ML VIAL.NEB. NEB SCH ×6 (03:00→20:26)
[2020-09-15] MEDS: HEPARIN NA (PORCINE) 5,000 UNITS/ML 1ML VIAL SQ SCH ×3 (05:27→22:11)
[2020-09-15 07:05] LABS: EOS % 0.3 % (0-4.5); HEMATOCRIT 35.5 % (35.4-49); LYMPH % 6.1 % (8-40); MCH 28.8 pg (25.7-33.7); MCHC 33.8 g/dl (32.0-35.9); MEAN CELL VOLUME 85.2 fl (80-96); MEAN PLT VOLUME 7.5 fl (7.5-11.1); MONO % 9.5 % (3.8-10.2); NEUT % 84.1 % (42.8-82.8); PLATELET COUNT 230 K/MM3 (134-434); RBC 4.16 M/mm3 (4.00-5.60); RDW 14.1 % (11.9-15.9); WHITE BLOOD COUNT 10.7 K/mm3 (4.0-10.0)
[2020-09-15 07:13] LABS: CALCIUM 9.2 mg/dL (8.5-10.1)
[2020-09-15 07:14] LABS: ALBUMIN 2.5 g/dl (3.4-5.0); BLOOD UREA NITROGEN 26.6 mg/dL (7-18); MAGNESIUM 2.1 mg/dL (1.8-2.4)
[2020-09-15 07:17] LABS: CREATININE 0.8 mg/dL (0.55-1.3); PHOSPHOROUS 2.4 mg/dL (2.5-4.9)
[2020-09-15 07:18] LABS: BILIRUBIN,TOTAL 1.2 mg/dL (0.2-1); TOT PROT 5.7 g/dl (6.4-8.2)
[2020-09-15] MEDS ORDERED: DEXTROSE 5%-WATER - 1,000 ML IV SCH (09:00)
[2020-09-15] MEDS: PANTOPRAZOLE SODIUM 40 MG VIAL IVPUSH SCH (09:19)
[2020-09-15] MEDS: BUDESONIDE/FORMETEROL FUMARATE 160/4.5 mcg INHALER IH SCH ×2 (09:20→22:11)
[2020-09-15] MEDS ORDERED: POTASSIUM PHOSPHATE 30 MM in DEXTROSE 5%-WATER - 500 ML IVPB ONE (10:30)
[2020-09-15] MEDS ORDERED: POTASSIUM CHLORIDE 10 MEQ in SODIUM CHLORIDE 0.45% 1,000 ML IVPB SCH (10:30)
[2020-09-15] MEDS: DEXMEDETOMIDINE IN 0.9 % NACL 400 MCG/100 ML VIAL IVPB SCH (11:30)
[2020-09-15] MEDS ORDERED: guaiFENesin/D-M SUGAR-FREE/ACLHOL-FREE 5 ML UNIT DOSE PO PRN (11:59)
[2020-09-15] MEDS ORDERED: ACETYLCYSTEINE 20% 200MG/ML 4 ML VIAL *FOR ORAL / INH USE ONLY NEB ONE (13:00)
[2020-09-15] MEDS ORDERED: AMINO ACIDS 4.25%/D5W 1,000 ML IV SCH (14:00)
[2020-09-15] MEDS ORDERED: PT OWN MED DRAWER 7, Y5N ONE ×2 (14:25→16:06)
[2020-09-15] MEDS: LYTES/YERBA SANTA 240 ML BOTTLE MM SCH (15:30)
[2020-09-15 15:56] VITALS: BMI 19.7
[2020-09-15] MEDS: POTASSIUM CHLORIDE 10 MEQ in AMINO ACIDS 4.25%/D5W 1,000 ML IV SCH (16:07)
[2020-09-15] MEDS: MULTIVIT INJ. ADULT COMBO WITH VIT K 1 COMBO 10 ML VIAL IV SCH (17:19)
[2020-09-15] MEDS: CHLORHEXIDINE GLUCONATE 4% CLEANSER FOR DECOLONIZATION TP SCH (22:11)
[2020-09-15] MEDS: methylPREDNISolone NA SUCC 40 MG/1 ML VIAL IVPUSH SCH (22:11)
[2020-09-15] MEDS: OCULAR LUBRICANT OPHTHALMIC OINTMENT 7 GM TUBE OU SCH (22:11)
[2020-09-15] MEDS: QUEtiapine FUMARATE 50 MG TABLET PO SCH (22:11)
[2020-09-16] MEDS: PIPERACILLIN/TAZOB 3.375 GM 3.375 GM in DEXTROSE 5%-WATER - 50 ML IVPB SCH ×3 (01:04→18:45)
[2020-09-16] MEDS: ALBUTEROL SO4 2.5/IPRATROPIUM 0.5 INH SOL 3 ML VIAL.NEB. NEB SCH ×6 (01:32→20:07)
[2020-09-16] MEDS: HEPARIN NA (PORCINE) 5,000 UNITS/ML 1ML VIAL SQ SCH ×2 (05:53→13:54)
[2020-09-16] MEDS: POTASSIUM CHLORIDE 10 MEQ in AMINO ACIDS 4.25%/D5W 1,000 ML IV SCH ×2 (07:18→15:07)
[2020-09-16] MEDS ORDERED: PIPERACILLIN/TAZOBACTAM 3.375 GM VIAL IVPB ONE ×2 (09:04→18:39)
[2020-09-16] MEDS ORDERED: DEXTROSE 5%-WATER - 50 ML IVPB ONE ×2 (09:05→18:39)
[2020-09-16 09:10] LABS: BASO % 0.1 % (0-2.0); EOS % 0.1 % (0-4.5); HEMATOCRIT 33.7 % (35.4-49); HEMOGLOBIN 11.4 GM/dL (11.7-16.9); LYMPH % 7.1 % (8-40); MCHC 33.9 g/dl (32.0-35.9); MEAN CELL VOLUME 85.5 fl (80-96); MEAN PLT VOLUME 8.2 fl (7.5-11.1); MONO % 4.1 % (3.8-10.2); NEUT % 88.6 % (42.8-82.8); PLATELET COUNT 210 K/MM3 (134-434); RBC 3.94 M/mm3 (4.00-5.60); RDW 14.2 % (11.9-15.9); WHITE BLOOD COUNT 8.7 K/mm3 (4.0-10.0)
[2020-09-16] MEDS: methylPREDNISolone NA SUCC 40 MG/1 ML VIAL IVPUSH SCH ×2 (09:24→18:45)
[2020-09-16] MEDS: PANTOPRAZOLE SODIUM 40 MG VIAL IVPUSH SCH (09:24)
[2020-09-16] MEDS: LYTES/YERBA SANTA 240 ML BOTTLE MM SCH (09:25)
[2020-09-16] MEDS: BUDESONIDE/FORMETEROL FUMARATE 160/4.5 mcg INHALER IH SCH ×2 (09:25→23:46)
[2020-09-16 09:36] LABS: CALCIUM 9.3 mg/dL (8.5-10.1)
[2020-09-16 09:37] LABS: ALBUMIN 2.6 g/dl (3.4-5.0); BLOOD UREA NITROGEN 27.7 mg/dL (7-18)
[2020-09-16 09:40] LABS: CREATININE 0.6 mg/dL (0.55-1.3)
[2020-09-16 09:41] LABS: TOT PROT 5.6 g/dl (6.4-8.2)
[2020-09-16] MEDS ORDERED: DEXTROSE 5%-WATER - 1,000 ML IV ONE (11:56)
[2020-09-16] MEDS ORDERED: DEXTROSE 5%-WATER - 1,000 ML IV SCH (12:00)
[2020-09-16] MEDS: DEXMEDETOMIDINE IN 0.9 % NACL 400 MCG/100 ML VIAL IVPB SCH (12:12)
[2020-09-16] MEDS: KCL 10 MEQ IVPB 10 MEQ/100 ML INFUS.BAG IVPB SCH ×2 (12:21→13:45)
[2020-09-16 12:48] LABS: MAGNESIUM 2.1 mg/dL (1.8-2.4)
[2020-09-16 12:52] LABS: PHOSPHOROUS 2.9 mg/dL (2.5-4.9)
[2020-09-16] MEDS ORDERED: ACETAMINOPHEN 1000 MG/100 ML VIAL (NON FORMULARY) IVPB ONE (13:25)
[2020-09-16] MEDS: MULTIVIT INJ. ADULT COMBO WITH VIT K 1 COMBO 10 ML VIAL IV SCH (15:07)
[2020-09-16] MEDS: CHLORHEXIDINE GLUCONATE 4% CLEANSER FOR DECOLONIZATION TP SCH (23:46)
[2020-09-16] MEDS: OCULAR LUBRICANT OPHTHALMIC OINTMENT 7 GM TUBE OU SCH (23:46)
[2020-09-16] MEDS: QUEtiapine FUMARATE 50 MG TABLET PO SCH (23:46)
[2020-09-17] MEDS ORDERED: DEXTROSE 5%-WATER - 50 ML IVPB ONE ×3 (00:42→17:02)
[2020-09-17] MEDS ORDERED: PIPERACILLIN/TAZOBACTAM 3.375 GM VIAL IVPB ONE ×3 (00:42→17:02)
[2020-09-17] MEDS: methylPREDNISolone NA SUCC 40 MG/1 ML VIAL IVPUSH SCH ×3 (01:03→17:12)
[2020-09-17] MEDS: PIPERACILLIN/TAZOB 3.375 GM 3.375 GM in DEXTROSE 5%-WATER - 50 ML IVPB SCH ×3 (01:03→17:12)
[2020-09-17] MEDS ORDERED: guaiFENesin/D-M SUGAR-FREE/ACLHOL-FREE 5 ML UNIT DOSE PO PRN (02:10)
[2020-09-17] MEDS: ALBUTEROL SO4 2.5/IPRATROPIUM 0.5 INH SOL 3 ML VIAL.NEB. NEB SCH ×5 (03:52→20:05)
[2020-09-17] MEDS: HEPARIN NA (PORCINE) 5,000 UNITS/ML 1ML VIAL SQ SCH ×4 (06:03→21:33)
[2020-09-17] MEDS: PANTOPRAZOLE SODIUM 40 MG VIAL IVPUSH SCH (10:40)
[2020-09-17] MEDS: LYTES/YERBA SANTA 240 ML BOTTLE MM SCH (10:47)
[2020-09-17] MEDS ORDERED: PT OWN MED DRAWER 7, Y5N ONE (12:16)
[2020-09-17] MEDS: BUDESONIDE/FORMETEROL FUMARATE 160/4.5 mcg INHALER IH SCH ×2 (12:46→21:32)
[2020-09-17] MEDS ORDERED: QUEtiapine FUMARATE 25 MG TABLET ONE (21:28)
[2020-09-17] MEDS: OCULAR LUBRICANT OPHTHALMIC OINTMENT 7 GM TUBE OU SCH (21:32)
[2020-09-17] MEDS: QUEtiapine FUMARATE 50 MG TABLET PO SCH (21:32)
[2020-09-17] MEDS ORDERED: CHLORHEXIDINE GLUCONATE 4% CLEANSER FOR DECOLONIZATION TP SCH (22:00)
[2020-09-18] MEDS: ALBUTEROL SO4 2.5/IPRATROPIUM 0.5 INH SOL 3 ML VIAL.NEB. NEB SCH ×7 (00:07→23:01)
[2020-09-18] MEDS ORDERED: DEXTROSE 5%-WATER - 50 ML IVPB ONE ×3 (01:10→17:29)
[2020-09-18] MEDS ORDERED: PIPERACILLIN/TAZOBACTAM 3.375 GM VIAL IVPB ONE ×3 (01:10→17:28)
[2020-09-18] MEDS: PIPERACILLIN/TAZOB 3.375 GM 3.375 GM in DEXTROSE 5%-WATER - 50 ML IVPB SCH ×3 (01:26→17:41)
[2020-09-18] MEDS: methylPREDNISolone NA SUCC 40 MG/1 ML VIAL IVPUSH SCH ×3 (01:27→17:45)
[2020-09-18] MEDS: HEPARIN NA (PORCINE) 5,000 UNITS/ML 1ML VIAL SQ SCH ×3 (05:39→21:24)
[2020-09-18] MEDS ORDERED: amLODIPine BESYLATE 5 MG TABLET (FP) PO ONE ×2 (06:31→14:00)
[2020-09-18 08:28] LABS: BASO % 0.1 % (0-2.0); HEMATOCRIT 33.9 % (35.4-49); HEMOGLOBIN 11.4 GM/dL (11.7-16.9); LYMPH % 5.8 % (8-40); MCH 28.8 pg (25.7-33.7); MCHC 33.8 g/dl (32.0-35.9); MEAN CELL VOLUME 85.2 fl (80-96); MEAN PLT VOLUME 7.8 fl (7.5-11.1); MONO % 4.7 % (3.8-10.2); NEUT % 89.4 % (42.8-82.8); PLATELET COUNT 300 K/MM3 (134-434); RBC 3.97 M/mm3 (4.00-5.60); RDW 13.9 % (11.9-15.9); WHITE BLOOD COUNT 11.7 K/mm3 (4.0-10.0)
[2020-09-18 08:49] LABS: BLOOD UREA NITROGEN 13.6 mg/dL (7-18); CALCIUM 9.5 mg/dL (8.5-10.1)
[2020-09-18 08:50] LABS: ALBUMIN 2.6 g/dl (3.4-5.0)
[2020-09-18 08:52] LABS: CREATININE 0.8 mg/dL (0.55-1.3)
[2020-09-18 08:54] LABS: BILIRUBIN,TOTAL 0.7 mg/dL (0.2-1); TOT PROT 5.7 g/dl (6.4-8.2)
[2020-09-18] MEDS ORDERED: amLODIPine BESYLATE 5 MG TABLET (FP) PO SCH (10:00)
[2020-09-18] MEDS: BUDESONIDE/FORMETEROL FUMARATE 160/4.5 mcg INHALER IH SCH ×2 (11:01→21:24)
[2020-09-18] MEDS: PANTOPRAZOLE SODIUM 40 MG VIAL IVPUSH SCH (11:01)
[2020-09-18] MEDS: LYTES/YERBA SANTA 240 ML BOTTLE MM SCH (11:02)
[2020-09-18] MEDS ORDERED: QUEtiapine FUMARATE 25 MG TABLET ONE (20:56)
[2020-09-18] MEDS: QUEtiapine FUMARATE 50 MG TABLET PO SCH (21:24)
[2020-09-18] MEDS: ACETAMINOPHEN 325 MG TABLET (FP) PO PRN (21:24)
[2020-09-18] MEDS ORDERED: PT OWN MED DRAWER 7, Y5N ONE (22:13)
[2020-09-18] MEDS: OCULAR LUBRICANT OPHTHALMIC OINTMENT 7 GM TUBE OU SCH (22:53)
[2020-09-19] MEDS ORDERED: PIPERACILLIN/TAZOBACTAM 3.375 GM VIAL IVPB ONE ×2 (00:45→08:27)
[2020-09-19] MEDS ORDERED: DEXTROSE 5%-WATER - 50 ML IVPB ONE ×2 (00:45→08:27)
[2020-09-19] MEDS: methylPREDNISolone NA SUCC 40 MG/1 ML VIAL IVPUSH SCH ×3 (01:22→21:41)
[2020-09-19] MEDS: PIPERACILLIN/TAZOB 3.375 GM 3.375 GM in DEXTROSE 5%-WATER - 50 ML IVPB SCH ×2 (01:22→09:10)
[2020-09-19] MEDS: ALBUTEROL SO4 2.5/IPRATROPIUM 0.5 INH SOL 3 ML VIAL.NEB. NEB SCH ×5 (04:14→20:24)
[2020-09-19] MEDS: HEPARIN NA (PORCINE) 5,000 UNITS/ML 1ML VIAL SQ SCH ×3 (05:41→21:41)
[2020-09-19] MEDS: PANTOPRAZOLE SODIUM 40 MG VIAL IVPUSH SCH (09:10)
[2020-09-19] MEDS: amLODIPine BESYLATE 5 MG TABLET (FP) PO SCH (09:15)
[2020-09-19] MEDS: BUDESONIDE/FORMETEROL FUMARATE 160/4.5 mcg INHALER IH SCH ×2 (09:17→21:48)
[2020-09-19] MEDS: LYTES/YERBA SANTA 240 ML BOTTLE MM SCH (09:17)
[2020-09-19] MEDS ORDERED: QUEtiapine FUMARATE 25 MG TABLET ONE (21:11)
[2020-09-19] MEDS: QUEtiapine FUMARATE 50 MG TABLET PO SCH (21:41)
[2020-09-19] MEDS: ACETAMINOPHEN 325 MG TABLET (FP) PO PRN (21:41)
[2020-09-19] MEDS: OCULAR LUBRICANT OPHTHALMIC OINTMENT 7 GM TUBE OU SCH (21:48)
[2020-09-20] MEDS: ALBUTEROL SO4 2.5/IPRATROPIUM 0.5 INH SOL 3 ML VIAL.NEB. NEB SCH ×5 (00:25→15:47)
[2020-09-20] MEDS: HEPARIN NA (PORCINE) 5,000 UNITS/ML 1ML VIAL SQ SCH ×2 (05:34→13:06)
[2020-09-20] MEDS: amLODIPine BESYLATE 5 MG TABLET (FP) PO SCH (09:42)
[2020-09-20] MEDS: methylPREDNISolone NA SUCC 40 MG/1 ML VIAL IVPUSH SCH (09:45)
[2020-09-20] MEDS: PANTOPRAZOLE SODIUM 40 MG VIAL IVPUSH SCH (09:46)
[2020-09-20] MEDS: LYTES/YERBA SANTA 240 ML BOTTLE MM SCH (09:54)
[2020-09-20] MEDS: BUDESONIDE/FORMETEROL FUMARATE 160/4.5 mcg INHALER IH SCH (09:54)
[2020-09-20] MEDS ORDERED: LISINOPRIL 5 MG TABLET PO SCH (10:00)
[2020-09-20 14:11] VITALS: BP 157/85; PULSE 99; TEMP 98.9
== END 2020-09-20 16:00 | DRG 871 ==
LOC: JER 21:34 → JERBED 23:18 → JICU 09-10 02:59 → J4S 09-17 02:18
PROVIDERS: ADMIT Family Medicine; ATTEND Family Medicine
PROC: 5A1945Z Respiratory Ventilation, 24-96 Consecutive Hours (ICD-10-PCS; principal; 2020-09-10)
PROC: 0CHY7BZ Insertion of Airway into Mouth and Throat, Via Natural or Artificial Opening (ICD-10-PCS; 2020-09-10)
DX: A41.9 Sepsis, unspecified organism (principal); J96.01 Acute respiratory failure with hypoxia; I50.33 Acute on chronic diastolic (congestive) heart failure; I21.3 ST elevation (STEMI) myocardial infarction of unspecified site; R65.21 Severe sepsis with septic shock; G93.41 Metabolic encephalopathy; J18.9 Pneumonia, unspecified organism; J96.21 Acute and chronic respiratory failure with hypoxia; J96.22 Acute and chronic respiratory failure with hypercapnia; E87.2 Acidosis; N17.9 Acute kidney failure, unspecified; E46 Unspecified protein-calorie malnutrition; I69.351 Hemiplegia and hemiparesis following cerebral infarction affecting right dominant side; E87.0 Hyperosmolality and hypernatremia; R64 Cachexia; Z68.1 Body mass index [BMI] 19.9 or less, adult; J44.1 Chronic obstructive pulmonary disease with (acute) exacerbation; I11.0 Hypertensive heart disease with heart failure; J44.9 Chronic obstructive pulmonary disease, unspecified; E87.6 Hypokalemia; Z68.20 Body mass index [BMI] 20.0-20.9, adult; F03.90 Unspecified dementia, unspecified severity, without behavioral disturbance, psychotic disturbance, mood disturbance, and anxiety; D72.829 Elevated white blood cell count, unspecified; D64.9 Anemia, unspecified; R00.1 Bradycardia, unspecified; N40.0 Benign prostatic hyperplasia without lower urinary tract symptoms; E87.5 Hyperkalemia; E78.5 Hyperlipidemia, unspecified
CPT/HCPCS: 36415; 36600; 71045-TC-FY; 71250-TC; 80053; 81003; 82550; 82570; 82728; 82803; 82962; 83540; 83550; 83605; 83735; 83880; 84100; 84132; 84300; 84439; 84443; 84484; 85025; 85027; 85610; 85730; 86738; 87040; 87070; 87086; 87205; 87899; 93005; 93010; 93970-TC; 94002; 94640; 97116-GP; 97162-GP; 99291; 99292; C9803; G0480; J0131; J1644; U0003; U0005